=== PATIENT | female | born 1965 | race Caucasian/White ===

== ENCOUNTER 2020-11-18 10:37 | Emergency (ER) | payer BC, OTHER ==
[2020-11-18 12:05] LABS: Absolute Lymphocytes (CBC) 1.5 K/uL (0.7-4.9); Basophils % 0.7 % (0-1.3); Hematocrit 42.8 % (36.0-45.0); Lymphocytes % 21.1 % (15.3-44.8); RBC Red Blood Cell Count 4.66 M/uL (3.86-4.86)
[2020-11-18 12:17] LABS: Protime INR 0.86
[2020-11-18 12:19] LABS: ALT/SGPT 52 U/L (12-78); AST/SGOT 24 U/L (15-37); Albumin 4.7 g/dL (3.4-5.0); Alkaline Phosphatase 81 U/L (45-117); BUN Blood Urea Nitrogen 5 mg/dL (7-18); Bicarbonate 25 mmol/L (21-32); Bilirubin Direct 0.1 mg/dL (0-0.2); Bilirubin Total 0.5 mg/dL (0.2-1.0); Glucose Level 105 mg/dL (74-106); Protein, Total 8.5 g/dL (6.4-8.2); Sodium Level 135 mmol/L (136-145)
[2020-11-18 12:23] LABS: Urine Blood NEGATIVE (NEG); Urine Glucose NEGATIVE (NEG); Urine Protein NEGATIVE (NEG)
[2020-11-18 12:27] LABS: Barbiturates NEGATIVE (NEGATIVE); Benzodiazepines NEGATIVE (NEGATIVE); Cocaine NEGATIVE (NEGATIVE); METHAMPHETAM NEGATIVE (NEGATIVE); Methadone NEGATIVE (NEGATIVE); Opiates NEGATIVE (NEGATIVE); Phencyclidine NEGATIVE (NEGATIVE); THC Cannibis NEGATIVE (NEGATIVE)
[2020-11-18] MEDS ORDERED: LORAZEPAM 1 MG TABLET ONE (13:40)
--- NOTE | 2020-11-18 14:24 | EDPHYS ---
Physician Documentation [facility] Name: Lizbet Solares Age: 55 yrs Sex: Female : 1965 Arrival Date: 11/18/2020 Time: 10:40 Bed 16 Private MD: ED Physician Dudley Cruz HPI: 11/18 11:39 This 55 yrs old Female presents to ER via Ambulatory with complaints of pm1 Suicidal Ideation. 11:39 The patient presents to the emergency department with depression, over work, recently pm1 laid off and can't pay her bills, suicide ideation, but the patient has no formulated plan. Onset: The symptoms/episode began/occurred . Past psychiatric history: Prior diagnosis: depression, Anxiety, Psychiatric medications include: Lexapro, Wellbutrin, the patient has not had a prior suicide gesture, the patient has a previous inpatient psychiatric history, for anxiety and depression, at [facility] . Associated signs and symptoms: Pertinent positives; anxiety, depression, Pertinent negatives: homicidal ideation, substance abuse. Severity of symptoms: in the emergency department the symptoms are worse Pain is currently a 0 / 10. The patient has been recently seen by a physician: by her therapist for the same complaint. Contacted her therapist today and police were contacted and brought the patient here. Patient presents to the ER with complaints of depression and suicidal ideation. Symptoms started about 1 year ago with loss of job. She has been unemployed for 1 year until she found a new job. Worked there for 3 weeks until she got laid off. "I can't stop the sadness and I would be better off it it ended." Told her therapist "I don't think I can make it another day." 3 weeks ago her therapist decreased her Wellbutrin from 300 mg to 150 mg. Historical: - Allergies: 11:01 No Known Allergies; sv - PMHx: 11:01 Hypertension; Depression; Anxiety; sv - PSHx: 11:01 Hysterectomy; sv - Immunization history:: Adult Immunizations up to date. - Social history:: Smoking status: Patient denies any tobacco usage or history of. ROS: 11:39 Constitutional: Negative for fever, chills, and weight loss, Eyes: Negative for injury, pm1 pain, redness, and discharge, ENT: Negative for injury, pain, and discharge, Neck: Negative for injury, pain, and swelling, Cardiovascular: Negative for chest pain, palpitations, and edema, Respiratory: Negative for shortness of breath, cough, wheezing, and pleuritic chest pain, Abdomen/GI: Negative for abdominal pain, nausea, vomiting, diarrhea, and constipation, Back: Negative for injury and pain, MS/Extremity: Negative for injury and deformity, Skin: Negative for injury, rash, and discoloration. 11:39 Neuro: Negative for headache, weakness, numbness, tingling, and seizure. 11:39 Psych: Positive for anxiety, depression, suicidal ideation, Negative for auditory hallucinations, visual hallucinations, homicidal ideation. Exam: 11:39 Constitutional: This is a well developed, well nourished patient who is awake, alert, pm1 and in no acute distress. Head/Face: Normocephalic, atraumatic. 11:39 Back: No spinal tenderness. No costovertebral tenderness. Full range of motion. Skin: Warm, dry with normal turgor. Normal color with no rashes, no lesions, and no evidence of cellulitis. MS/ Extremity: Pulses equal, no cyanosis. Neurovascular intact. Full, normal range of motion. 11:39 Cardiovascular: Exam negative for acute changes, Rate: normal, Rhythm: regular, Pulses: no pulse deficits are appreciated. 11:39 Respiratory: Exam negative for acute changes, respiratory distress, shortness of breath. 11:39 Abdomen/GI: Inspection: abdomen appears normal, Palpation: abdomen is soft and non-tender, in all quadrants. 11:39 Neuro: Exam negative for acute changes, Orientation: is normal, Mentation: is normal, Motor: is normal, moves all fours. 11:39 Psych: Behavior/mood is depressed, crying. Affect is animated, Oriented to person, place, time, Patient having thoughts of suicide. Denies suicidal plan. Delusions/hallucinations are not present. Vital Signs: 11:03 BP 144 / 99; Pulse 75; Resp 20; Temp 98.7; Pulse Ox 100% ; Weight 77.11 kg; Height 5 sv ft. 5 in. (165.10 cm); Pain 0/10; 11:03 Body Mass Index 28.29 (77.11 kg, 165.10 cm) sv MDM: 11:25 Patient medically screened. pm1 13:26 ED course: Patient requesting medication for anxiety. She reports taking clonazepam pm1 0.25 mg from her son prior to arrival for the anxiety. 13:38 Data reviewed: vital signs. pm1 14:23 Counseling: I had a detailed discussion with the patient and/or guardian regarding: the pm1 historical points, exam findings, and any diagnostic results supporting the discharge/admit diagnosis, lab results, the need to transfer to another facility, [facility] does not immediately have the required specialist, to return to the emergency department if symptoms worsen or persist or if there are any questions or concerns that arise at home. 14:27 ED course: The patient is agreeable to going to a psychiatric facility for further pm1 evaluation and treatment. 16:32 Physician consultation: MD Schwartz was contacted at 16:32, regarding regarding transfer, pm1 patient's condition, and will see patient. 11/18 11:26 Order name: Acetaminophen; Complete Time: 12:24 pm1 11/18 11:26 Order name: Basic Metabolic Panel; Complete Time: 12:24 pm1 11/18 11:26 Order name: CBC with Diff; Complete Time: 12:24 pm1 11/18 11:26 Order name: ETOH Level; Complete Time: 12:24 pm1 11/18 11:26 Order name: Hepatic Function; Complete Time: 12:24 pm1 11/18 11:26 Order name: PT-INR; Complete Time: 12:24 pm1 11/18 11:26 Order name: Ptt, Activated; Complete Time: 12:24 pm1 11/18 11:26 Order name: Salicylate; Complete Time: 12:59 pm1 11/18 11:26 Order name: Urine Drug Screen; Complete Time: 12:59 pm1 11/18 12:06 Order name: Urine Dipstick--Ancillary (enter results) bd 11/18 12:07 Order name: Urine Dipstick-Ancillary; Complete Time: 12:59 EDMS 11/18 16:00 Order name: SARS-COV-2 RT PCR; Complete Time: 16:17 EDMS 11/18 11:26 Order name: EKG; Complete Time: 11:27 pm1 11/18 11:26 Order name: EKG - Nurse/Tech; Complete Time: 11:48 pm1 11/18 11:26 Order name: IV Saline Lock; Complete Time: 11:48 pm1 11/18 11:26 Order name: Labs collected and sent; Complete Time: 11:48 pm1 11/18 11:26 Order name: Urine Dipstick-Ancillary (obtain specimen); Complete Time: 11:48 pm1 11/18 12:25 Order name: Diet Regular; Complete Time: 12:26 pm1 Administered Medications: 13:28 Drug: Ativan 1 mg Route: PO; ll1 18:14 Follow up: Response: No adverse reaction; Anxiety decreased; RASS: Alert and Calm (0) ll1 Disposition: 11/18/20 14:24 Transfer ordered to Psych Facility. Diagnosis is Suicidal ideations. - Reason for transfer: Specialty. - Accepting physician is . - Condition is Stable. - Problem is new. - Symptoms are unchanged. Addendum: 11/26/2020 18:55 Co-signature as Attending Physician, Dudley Cruz MD. r n Signatures: Dispatcher [employer] Natalia Foster RN RN sv Nieto, Roman, MD MD rn Marinas, Patrick, SHOP MANAGER SHOP MANAGER pm1 Chauncey Epps RN RN jbCoco Durand RN RN ll1 Corrections: (The following items were deleted from the chart) 11/18 14:29 11:39 Past psychiatric history: Prior diagnosis: depression, Anxiety, Psychiatric pm1 medications include: Lexapro, Wellbutrin, the patient has not had a prior suicide gesture, the patient does not have a previous inpatient psychiatric history, pm1 14:51 11:39 Patient presents to the ER with complaints of depression and suicidal ideation. pm1 Symptoms started about 1 year ago with loss of job. She has been unemployed for 1 year until she found a new job. Worked there for 3 weeks until she got laid off. "I can't stop the sadness and I would be better off it it ended." 3 weeks ago her therapist decreased her Wellbutrin from 300 mg to 150 mg. pm1 15:16 14:23 CORONAVIRUS+MR.LAB.BRZ ordered. EDAL EDMS 20:07 14:24 11/18/2020 14:24 Transfer ordered to Psych Facility. Diagnosis is Suicidal jb4 ideations. Reason for transfer: Specialty. Accepting physician is . Condition is Stable. Problem is new. Symptoms are unchanged. pm1
--- NOTE | 2020-11-18 14:24 | ER ---
Nurse's Notes [facility] Name: Lizbet Solares Age: 55 yrs Sex: Female : 1965 Arrival Date: 11/18/2020 Time: 10:40 Bed 16 Private MD: Diagnosis: Suicidal ideations Presentation: 11/18 10:59 Chief complaint: Patient states: "I called my therapists today for help and they did a sv wellfare check on me and the police came. I don't see a way out." Pt denies a plan. Pt reports seeing this therapists routinely. Pt reports about 3 weeks ago they decreased her depression medication to help with her anxiety. Coronavirus screen: Client denies travel out of the [place] in the last 14 days. At this time, the client does not indicate any symptoms associated with coronavirus-19. Ebola Screen: No symptoms or risks identified at this time. Risk Assessment: Do you want to hurt yourself or someone else? Patient reports desire/thoughts of hurting themselves or someone else. Provider notified. Onset of symptoms was November 18, 2020. 10:59 Method Of Arrival: Ambulatory sv 10:59 Acuity: NAFISA 2 sv 11:03 Initial Sepsis Screen: Does the patient meet any 2 criteria? No. Patient's initial sv sepsis screen is negative. Does the patient have a suspected source of infection? No. Patient's initial sepsis screen is negative. Historical: - Allergies: 11:01 No Known Allergies; sv - PMHx: 11:01 Hypertension; Depression; Anxiety; sv - PSHx: 11:01 Hysterectomy; sv - Immunization history:: Adult Immunizations up to date. - Social history:: Smoking status: Patient denies any tobacco usage or history of. Screenin:09 Nutritional screening: No deficits noted. Tuberculosis screening: No symptoms or risk ll1 factors identified. 15:59 Fall Risk None identified. IV access (20 points). Total Calles Fall Scale indicates No ll1 Risk (0-24 pts). 18:14 Abuse screen: Denies threats or abuse. ll1 Assessment: 11:30 General: Appears uncomfortable, Behavior is cooperative, appropriate for age, anxious. ll1 Pain: Denies pain. Neuro: Level of Consciousness is awake, alert, obeys commands, Oriented to person, place, time, situation, Appropriate for age Branch Sales Manager are equal bilaterally Moves all extremities. Full function Gait is steady, Speech is normal, Facial symmetry appears normal, Pupils are PERRLA, Reports Generalized suicidal thoughts, no specific plan. . 12:30 Reassessment: No changes from previously documented assessment. Patient and/or family ll1 updated on plan of care and expected duration. Pain level reassessed. 13:30 Reassessment: No changes from previously documented assessment. Patient and/or family ll1 updated on plan of care and expected duration. Pain level reassessed. 14:30 Reassessment: No changes from previously documented assessment. Patient and/or family ll1 updated on plan of care and expected duration. Pain level reassessed. 15:30 Reassessment: No changes from previously documented assessment. Patient and/or family ll1 updated on plan of care and expected duration. Pain level reassessed. 15:57 Reassessment: Spoke with Shauna, with [facility] who states that she will give ss administrative approval now, pending doc to doc report. Shauna states that Dr. East will call soon and she will then call back with a room assignment. 16:30 Reassessment: No changes from previously documented assessment. Patient and/or family ll1 updated on plan of care and expected duration. Pain level reassessed. 17:30 Reassessment: No changes from previously documented assessment. Patient and/or family ll1 updated on plan of care and expected duration. Pain level reassessed. 19:00 Reassessment: Patient appears in no apparent distress at this time. Patient and/or jb4 family updated on plan of care and expected duration. Pain level reassessed. Patient is alert, oriented x 3, equal unlabored respirations, skin warm/dry/pink. 20:00 Reassessment: Patient appears in no apparent distress at this time. Patient and/or jb4 family updated on plan of care and expected duration. Pain level reassessed. Patient is alert, oriented x 3, equal unlabored respirations, skin warm/dry/pink. Psych: 11:01 [place] Suicide Severity Screening: In the past month, have you wished you were sv or wished you could go to sleep and not wake up? Patient responds "No." "In the past month, have you actually had any thoughts of killing yourself?" Patient responds "no." "In your lifetime, have you ever done anything, started to do anything, or prepared to do anything to end your life?" Patient responds "no.". Subjective: Patient's mood is sad, hopeless, Delusions are denied, Hallucinations are denied Having thoughts of suicide. Denies suicidal plan. Objective: Patient is cooperative, Speech is normal, Affect is appropriate. Suicide Risk Assessment: Sad Person Scale: Sex of patient: Female: Score 0 points. Age of patient: Score 0 point if patient falls outside of specified age parameters. Depression: Score 1 point if signs of depression are present. Previous Attempt: Score 1 point if patient has previously attempted suicide. Substance Abuse: Score 0 point if patient does not abuse alcohol or drugs. Rational Thinking: Score 0 point if patient has rational thinking. Social Support: Score 0 if social support is present/available. Organized Plan: Score 0 if patient did not have an organized plan in place. Relationship: Score 1 point if patient is , , , or for a single male Chronic Sickness: Score 1 point if patient has illness, chronic, debilitating, or severe. TOTAL POINTS: If total points are 3-4, proposed clinical action is close follow-up/consider hospitalization. Pt denies substance abuse. Commitment: Patient will be a voluntary commitment. 11:15 Interventions: Removed personal items and placed in bag. Patient placed in hospital ll1 gown. Urine collected and sent for urine drug test. Safety Checks: Personal items have been removed. Door is open. Vital Signs: 11:03 BP 144 / 99; Pulse 75; Resp 20; Temp 98.7; Pulse Ox 100% ; Weight 77.11 kg; Height 5 sv ft. 5 in. (165.10 cm); Pain 0/10; 11:03 Body Mass Index 28.29 (77.11 kg, 165.10 cm) sv ED Course: 10:40 Patient arrived in ED. ds1 11:00 Triage completed. sv 11:03 Arm band placed on. sv 11:06 Miki Lynch NP is PHCP. pm1 11:06 Dudley Cruz MD is Attending Physician. pm1 11:08 Coco Monk, EVER is Primary Nurse. ll1 11:15 Patient has correct armband on for positive identification. Placed in gown. Bed in low ll1 position. Side rails up X 1. Cardiac monitoring not applicable on this patient. 11:45 Initial lab(s) drawn, by me, sent to lab. Inserted saline lock: 20 gauge in left 3 antecubital area, using aseptic technique. Blood collected. 11:55 EKG done, by ED staff, reviewed by Miki Lynch NP. [facility] 12:00 Urine collected: clean catch specimen, clear. [facility] 13:28 Urine Dipstick--Ancillary (enter results) Sent. 1 14:[facility] bd 15:00 comfirmed with [facility] that chart was received. bd 20:00 No provider procedures requiring assistance completed. IV discontinued, intact, jb4 bleeding controlled, No redness/swelling at site. Pressure dressing applied. Administered Medications: 13:28 Drug: Ativan 1 mg Route: PO; ll1 18:14 Follow up: Response: No adverse reaction; Anxiety decreased; RASS: Alert and Calm (0) 1 Outcome: 14:24 ER care complete, transfer ordered by MD. pm1 20:00 Transferred by [facility]. to other acute care facility: [facility]. jb4 20:00 Condition: stable 20:00 Discharge instructions given to patient, Instructed on the need for transfer, Demonstrated understanding of instructions. 20:07 Patient left the ED. jb4 Signatures: Brunilda Moffett Stephanie, RN Alee Barrios 1 Montse Suresh RN RN ss Marinas, Patrick, NP WAITER/WAITRESS SECOND CLASS [facility] Chauncey Epps RN RN jb Mirna Trinh [facility] Coco Monk RN RN 1 Corrections: (The following items were deleted from the chart) 11:05 10:59 Chief complaint: Patient states: "I called my therapists today for help and they sv did a wellfare check on me and the police came. I don't see a way out." Pt denies a plan. Pt reports seeing this therapists routinely. 20:06 20:00 Transferred jb4 jb4
[2020-11-18 20:29] VITALS: BP 144/99; TEMP 98.7; O2SAT 100
--- NOTE | 2020-11-19 18:44 | EKG ---
Test Date: 2020-11-18 Test Time: 11:54:30 Hi Lift Operator: NISHA MEASUREMENT RESULTS: Intervals: Rate: 74 CO: 152 QRSD: 78 QT: 420 QTc: 466 [place]: P: 28 CO: 152 QRS: -5 T: 49 INTERPRETIVE STATEMENTS: Normal sinus rhythm Minimal voltage criteria for LVH, may be normal variant Septal infarct, age undetermined Abnormal ECG Compared to ECG 06/09/2017 15:42:15 Left ventricular hypertrophy now present Myocardial infarct finding now present Prolonged QT interval no longer present Electronically Signed On 11-19-20 18:40:36 MANAGER FINANCIAL REPORTING by Brenden Hernandez
--- OUTSIDE RECORDS SUMMARY | 2020-11-19 21:40 | XMS REPORT | Clinical Summary ---
:1965 Author Organization [facility] Address [address] [place] [address] Care Team Providers Name Role Phone Ritesh Raphael MD Primary Care Provider Allergies No Known Active Allergies Medications Medication Sig Dispensed Refills Start Date End Date Status clonAZEPAM (KlonoPIN) 1 Take 1 mg by 0 Active MG tablet mouth 3 (three) times a day. levothyroxine (SYNTHROID, Take 75 mcg by 0 Active LEVOXYL) 75 mcg tablet mouth every morning. liothyronine (CYTOMEL) 5 Take 5 mcg by 0 Active MCG tablet mouth 2 (two) times a day. methylphenidate HCl Take 54 mg by 0 Active (CONCERTA) 54 MG CR mouth every tablet morning. metoprolol succinate XL Take 100 mg by 0 Active (TOPROL-XL) 100 mg 24 hr mouth daily. tablet omeprazole (PriLOSEC) 40 Take 40 mg by 0 Active MG capsule mouth daily before breakfast. sertraline (ZOLOFT) 50 MG Take 50 mg by 0 Active tablet mouth daily. traZODone (DESYREL) 100 Take 200 mg by 0 Active MG tablet mouth nightly. vortioxetine (TRINTELLIX) Take 10 mg by 0 Active 10 mg tablet mouth daily. Active Problems Problem Noted Date Alcohol abuse 11/16/2017 Surgical History Surgery Date Site/Laterality Comments THYROID SURGERY Medical History Medical History Date Comments ETOH abuse Anxiety Hypertension Depression Social History Tobacco Use Types Packs/Day Years Used Date Current Some Day Smoker Smokeless Tobacco: Never Used Alcohol Use Drinks/Week oz/Week Comments Yes Sex Assigned at Date Recorded Not on file Last Filed Vital Signs Not on file Plan of Treatment Health Maintenance Due Date Last Done Comments COVID-19 VACCINE (1 of 2) 1979 HEPATITIS C SCREENING 1981 CERVICAL CANCER SCREENING 1984 BREAST CANCER SCREENING 2013 COLONOSCOPY SCREENING 2013 SHINGLES VACCINES (#1) 2013 INFLUENZA VACCINE 05/11/2020 Results Not on fileafter 11/19/2019 (Work) [id number] Advance Directives For more information, please contact: [phone] Type Date Recorded Patient Supervisor Frame Assembly Explanati on Advance Directives, Living Will 07/04/2020 6:30 AM and Medical Power of Customs Consultant
--- OUTSIDE RECORDS SUMMARY | 2020-11-19 21:41 | XMS REPORT | Clinical Summary ---
:1965 Author Organization [facility] Address [address] [place] [address] Care Team Providers Name Role Phone Unavailable Primary Care Provider Unavailable Allergies No Known Allergies Medications Medication Sig Dispensed Refills Start Date End Date Status omeprazole (PRILOSEC) 40 Take 40 mg by 0 Active MG capsule mouth every morning. metoprolol (TOPROL-XL) Take 100 mg by 0 Active 100 MG 24 hr tablet mouth daily. vortioxetine 10 mg Tab Take 10 mg by 0 Active mouth daily. OLANZapine (ZYPREXA) 15 Take 15 mg by 0 Active MG tablet mouth nightly. methylphenidate HCl Take 54 mg by 0 Active (CONCERTA) 54 MG CR mouth every tablet morning. liothyronine (CYTOMEL) 5 Take 5 mcg by 0 Active MCG tablet mouth 2 (two) times daily. 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 Acute metabolic encephalopathy 04/03/2018 Encounters Date Type Specialty Care Team Description 02/08/2020 Hospital Encounter Radiology Melanie Ro Nonto xic uninodular GENARO Khan goiter 1, Slswv Jubilater Interactive Media Tech 02/08/2020 Outside Orders Central Scheduling Melanie Ro Non toxic uninodular GENARO Khan goiter (Primary Dx) after 11/19/2019 Social History Tobacco Use Types Packs/Day Years Used Date Never Assessed Sex Assigned at Date Recorded Not on file Last Filed Vital Signs Not on file Plan of Treatment Health Maintenance Due Date Last Done Comments BREAST CANCER SCREENING 1965 COLON CANCER SCREENING COLONOSCOPY 1965 CERVICAL CANCER SCREENING PAP ONLY (Age 21-65) 1984 LIPID PANEL 2008 INFLUENZA VACCINE (#1) 2020 Procedures Procedure Name Priority Date/Time Associated Diagnosis Comme nts US THYROID Routine 02/08/2020 2:05 PM Nontoxic uninodular R esults for this CDT goiter procedure are i n the results section . after 11/19/2019 Results US Thyroid (02/08/2020 2:05 PM CDT) Specimen Narrative Performed At FINAL REPORT [facility] Thyroid Ultrasound History: Partial thyroidectomy Comparison: none Findings: The right thyroid lobe appears diminishe d in size, probably representing changes related to partial thyroidectomy given the clinical history. A 4 mm cyst is seen wi thin the residual right thyroid lobe. A 3 mm cyst is seen within the inferior left thyroid lobe. There is no concerning thyroid nod ule on this examination. Right thyroid lobe measures 1.7 x 0.7 x 0.9 cm. Left thyroid lobe measures 2.7 x 0.6 x 0.8 cm. Thyroid ist hmus measures 2.9 mm in thickness. Impression: 1. Diminutive appearance of the right th yroid lobe, which could be related to previous partial thyroidectom y given the clinical history. 2. Subcentimeter cysts within both thyro id lobes. There is no concerning thyroid nodule on this examin ation. Signed: Pascale Prince MD Report Verified Date/Time: 02/08/2020 14:13:43 Reading Location: [facility] Reading Room - [place] [address] Procedure Note Interface, External Ris In - 02/08/2020 2:15 PM CDT FINAL REPORT Thyroid Ultrasound History: Partial thyroidectomy Comparison: none Findings: The right thyroid lobe appears diminishe d in size, probably representing changes related to partial thyroidectomy given the clinical history. A 4 mm cyst is seen wi thin the residual right thyroid lobe. A 3 mm cyst is seen within the inferior left thyroid lobe. There is no concerning thyroid nod ule on this examination. Right thyroid lobe measures 1.7 x 0.7 x 0.9 cm. Left thyroid lobe measures 2.7 x 0.6 x 0.8 cm. Thyroid ist hmus measures 2.9 mm in thickness. Impression: 1. Diminutive appearance of the right th yroid lobe, which could be related to previous partial thyroidectom y given the clinical history. 2. Subcentimeter cysts within both thyro id lobes. There is no concerning thyroid nodule on this examin ation. Signed: Pascale Prince MD Report Verified Date/Time: 02/08/2020 1 4:13:43 Reading Location: [facility] Reading Room - [place] [address] Performing Organization Address City/State/Zipcode Phone Number GE RIS after 11/19/2019 Insurance Payer Benefit Plan / Subscriber ID Effective Dates Phone Addre ss Type Group BLUE BCBS ADV HMO [id number] 2019-Presen [phone] [id number] CROSS/BLUE EXCHANGE t 2 [facility] [id number] Advance Directives For more information, please contact: [phone] Code Status Date Activated Date Inactivated Comments Full Code 04/03/2018 9:16 PM 04/07/2018 3:36 PM This code status was determined by: Patient
--- OUTSIDE RECORDS SUMMARY | 2020-11-19 21:42 | XMS REPORT | Summary of Care ---
:1965 Author Organization [facility] - Health Address [address] [place] [address] Care Team Providers Name Role Phone Kurtis Raphael MD Primary Care Provider Encounter Details Date Type Department Care Team Description 10/01/2020 Orders Only [facility] Doctor Unassigned, No [address] [facility] Name [place] [id number] [address] [place] [id number] Allergies No Known Allergiesdocumented as of this encounter (statuses as of 10/01/2020) Medications Medication Sig Dispensed Refills Start Date End Date Status clonazePAM (KLONOPIN) 1 Take 1 mg by 0 Active mg tablet mouth 3 (three) times daily. acetaminophen-codeine Take 1 tablet by 15 tablet 0 08/21/2018 Active (TYLENOL-CODEINE #3) mouth every 6 300-30 mg tablet (six) hours as needed for Pain (scale 4-6). liothyronine 5 mcg Take 5 mcg by 0 Active tablet mouth daily. dextroamphetamine-amphe Take 20 mg by 0 Active tamine (ADDERALL) 20 mg mouth daily. tablet FLUoxetine 20 mg Take 20 mg by 0 Active capsule mouth daily. metoprolol succinate XL Take 100 mg by 0 Active 100 mg 24 hr tablet mouth daily. OLANZapine 5 mg tablet Take 5 mg by 0 Active mouth daily. omeprazole 40 mg Take 40 mg by 0 Active capsule mouth daily. escitalopram oxalate 20 0 01/05/2020 Active mg tablet buPROPion XL 300 mg 24 0 02/29/2020 Active hr tablet documented as of this encounter (statuses as of 10/01/2020) Active Problems No known active problemsdocumented as of this encounter (statuses as of 10/01/2020) Social History Tobacco Use Types Packs/Day Years Used Date Never Assessed Sex Assigned at Date Recorded Not on file documented as of this encounter Last Filed Vital Signs Not on filedocumented in this encounter Plan of Treatment Health Maintenance Due Date Last Done Comments HEPATITIS C (HCV) SCREEN 1965 Depression Screening 1975 DTaP,Tdap,and Td Vaccines (1 - 1982 Tdap) PAP SMEAR 1984 Breast Cancer Screening (MAMMOGRAM) 2003 COLON CANCER SCREENING ANNUAL 2013 FIT/FOBT COLON CANCER SCREENING FIT DNA 2013 EVERY 3 YEARS COLON CANCER SCREENING 2013 SIGMOIDOSCOPY EVERY 5 YEARS COLONOSCOPY 2013 Colorectal Cancer Screening 2013 Zoster Recombinant Vaccine 2013 (SHINGRIX) (1 of 2) INFLUENZA VACCINE (#1) 2020 PNEUMOCOCCAL 0-64 YEARS COMBINED Aged Out No longer eligible based on SERIES patient's age to complete this topic documented as of this encounter Procedures Procedure Name Priority Date/Time Associated Diagnosis Comme nts CONSENT/REFUSAL FOR Routine 10/01/2020 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 t [phone] [place] [address] documented as of this encounter Advance Directives Name Relationship Healthcare Agent Relationship Co mmunication Shannan Madsen Mother Health Care Agent [phone] ( Home)
--- OUTSIDE RECORDS SUMMARY | 2020-11-19 21:42 | XMS REPORT | Summary of Care ---
:1965 Author Organization [facility] - [facility] Address [address] [place] [address] Care Team Providers Name Role Phone Kurtis Raphael MD Primary Care Provider Reason for Referral (Routine) Status Reason Specialty Diagnoses / Referred By Referred To Procedures Contact Contact New Request Procedures Zachary Mcnamara, UNILATERAL VENOUS PAC DUPLEX LOWER [address] [place], [place] [address] [facility] Reason for Visit Reason Comments Leg Pain left Auth/Cert Status Reason Specialty Diagnoses / Referred By Referred To Procedures Contact Contact Emergency Medicine Diagnoses LEG PAIN [facility] [address] [place] [address] Fax: Encounter Details Date Type Department Care Team Description 10/01/2020 Emergency ADC-Emergency Depart ment Zachary Mcnamara, PAC Left leg pain [address] [place] [address] [place] [address] [place] [phone] Allergies No Known Allergiesdocumented as of this [...] mg 24 0 02/29/2020 Active hr tablet naproxen (NAPROSYN) 500 Take 1 tablet by 30 tablet 0 0 Active mg tabletIndications: mouth 2 (two) Left leg pain times daily with meals. documented as of this encounter (statuses as of 10/01/2020) Active Problems No known active problemsdocumented as of this encounter (statuses as of 10/01/2020) Social History Tobacco Use Types Packs/Day Years Used Date Never Assessed Sex Assigned at Date Recorded Not on file COVID-19 Exposure Response Date Recorded In the last month, have you been in contact with No / Unsure 10/01/2020 3:33 PM [facility] C[facility]TER someone who was confirmed or suspected to have Coronavirus / COVID-19? 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 I went to urgent care last night at 0330 and they gave me a shot of morphine. They gave me a muscle relaxer and it took the edge off. I've been in pain since yesterday and I'm scared. They said its a muscle spasm. Myinsurance nurse said to go to the ER" Denies trauma/ lifting anything heavy. documented in this encounter Miscellaneous Notes ED Nurse Note - Elena See RN - 10/01/2020 5:18 PM CSTPt discharged with diagnosis of left leg pain. Printed and verbal instructions reviewed with and given to patient. Prescriptions given x1. Pt verbalized understanding of teaching, medications, and recommended follow-up. Denies questions or concerns at this time. Pt ambulatory at discharge, appears in mild distress. Patient's sister to transport patient home. 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 documented in this encounter Plan of Treatment Health Maintenance Due Date Last Done Comments HEPATITIS C (HCV) SCREEN 1965 Depression Screening 1975 DTaP,Tdap,and Td Vaccines ( - 1982 Tdap) PAP SMEAR 1984 Breast [...] Name Priority Date/Time Associated Diagnosis Comme nts NOTICE OF PRIVACY Routine 10/01/2020 3:26 PM [facility] [employer] documented in this encounter Results Not on filedocumented in this encounter Visit Diagnoses Diagnosis Left leg pain Pain in limb documented in this encounter Administered Medications Medication Order MAR Action Action Date Dose Rate Site HYDROcodone-acetaminophen Given 10/01/2020 4:55 PM 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
--- OUTSIDE RECORDS SUMMARY | 2020-11-19 21:42 | XMS REPORT | Continuity of Care Document ---
:[address] [facility] t Address [address] [place] [address] Care Team Providers Name Role Phone Ijeoma DONATO Primary Care Physician Pamela Munoz Attending Clinician Doctor Unassigned, Name Attending Clinician Unavailable Only, Test Attending Clinician Unavailable Erin Dunaway Attending Clinician 1, [facility] Attending Clinician Unavailable Paz ALMAGUER Attending Clinician Unavailable VALERIE GARRETT Admitting Clinician Unavailable Payers Payer Name Policy Type Policy Effective Date Expiration Date Sour ce Number BLUE CROSS/BLUE [id number] [address] [facility] SHIELDBCBS ADV 00:00:00 - [facility] [id number] [id number] [id number], [place] [address] Problems Condition Condition Condition Status Onset Resolution Last Treating Co mments Source Name Details Category Date Date Treatment Clinician Date 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 Social History Social Habit Start Date Stop Date Quantity Comments Source Sex Assigned At [facility] ethodist Tobacco use and 2017-11-16 2017-11-16 Never used [facility] ethodist exposure 00:00:00 00:00:00 Alcohol intake 2017-11-16 2017-11-16 Current drinker [place] 00:00:00 00:00:00 of alcohol (finding) Smoking Status Start Date Stop Date Source Current some day smoker 2017-11-16 00:00:00 [place] Medications Ordered Filled Start Stop Current Ordering Indication Dosage Frequency Signature Comments Components Source Medication Medication Date Date Medication? Clinician (SIG) Name Name omeprazole Yes 40mg QD Take [address] (PRILOSEC) 6-28 by mouth [facility] - 40 MG 13:36: every Medical capsule 16 morning. [place] metoprolol Yes 100mg QD Take [address] (TOPROL-XL) 6-28 mg by [facility] - 100 MG 24 13:36: mouth Medical hr tablet 16 daily. [place] vortioxetin Yes 10mg QD Take [address] e 10 mg Tab 6-28 by mouth Luke [facility] - 13:36: daily. Medical [address] [place] [address] OLANZapine Yes 15mg QD Take [address] (ZYPREXA) 6-28 by mouth [facility] - 15 MG 13:36: nightly. Medical tablet 16 [place] methylpheni Yes 54mg QD Take [address] [address] date HCl 6-28 by mouth [facility] - (CONCERTA) 13:36: every Medica l 54 MG CR 16 morning. [place] tablet liothyronin Yes 5ug Q.5D Take [address] e (CYTOMEL) 6-28 by mouth 2 [facility] kes - 5 MCG 13:36: (two) Medical tablet 16 times Center daily. levothyroxi Yes 75ug QD Take 75 Jessica ston ne 2-07 mcg by [facility] (SYNTHROID, 08:25: mouth st LEVOXYL) 75 59 every mcg tablet morning. liothyronin 2018-0 Yes 5ug Q.5D Take 5 mcg [facility] (CYTOMEL) 2-07 by mouth 2 Me thodi 5 MCG 08:25: (two) st tablet 53 times a day. methylpheni 2018-0 Yes 54mg QD Take 54 mg [facility] date HCl 2-07 by mouth [facility] (CONCERTA) 08:25: every st 54 MG CR 53 morning. tablet metoprolol 2018-0 Yes 100mg QD Take 100 [place] succinate 2-07 mg by [facility] XL 08:25: mouth st (TOPROL-XL) 53 daily. 100 mg 24 hr tablet omeprazole 2018-0 Yes 40mg QD Take 40 mg [place] (PriLOSEC) 2-07 by mouth Metho di 40 MG 08:25: daily st capsule 53 before breakfast. sertraline 2018-0 Yes 50mg QD Take 50 mg [place] (ZOLOFT) 50 2-07 by mouth Meth kathleen MG tablet 08:25: daily. st 53 traZODone 2018-0 Yes 200mg QD Take [address] (DESYREL) 2-07 mg by [facility] 100 MG 08:25: mouth st tablet 53 nightly. vortioxetin 2018-0 Yes 10mg QD Take 10 mg [facility] e 2-07 by mouth [facility] (TRINTELLIX 08:25: daily. st ) 10 mg 53 tablet clonAZEPAM 2018-0 Yes 1mg [id number] Take 1 mg [facility] (KlonoPIN) 2-07 [id number] by mouth 3 [facility] 1 MG tablet 08:25: 3D (three) st 53 times a day. Procedures Procedure Date / Time Performed Performing Clinician Sour e US THYROID 2020-02-08 14:05:00 Melaine Ro [facility] Plan of Care Planned Activity Planned Date Details Comments Source Future Scheduled 2020-06-11 [facility] VACCINE [facility] 00:00:00 (#1) [code = [facility] INFLUENZA VACCINE (#1)] Future Scheduled 2020-05-11 INFLUENZA VACCINE [place] Test 00:00:00 [code = INFLUENZA VACCINE] Future Scheduled 2013 BREAST CANCER [facility] Test 00:00:00 SCREENING [code = BREAST CANCER SCREENING] Future Scheduled 2013 COLONOSCOPY SCREENING [place] Test 00:00:00 [code = COLONOSCOPY SCREENING] Future Scheduled 2013 SHINGLES VACCINES [place] Test 00:00:00 (#1) [code = SHINGLES VACCINES (#1)] Future Scheduled [address] [facility] - Test 00:00:00 (procedure) [code = [facility] 76511663] Future Scheduled 1984 Screening for [facility] Test 00:00:00 malignant neoplasm of cervix (procedure) [code = 207583147] Future Scheduled [address] [facility] - Test 00:00:00 malignant neoplasm of Medica l Center cervix (procedure) [code = 195085467] Future Scheduled 1981 Hepatitis C screening [place] Test 00:00:00 (procedure) [code = 497374793] Future Scheduled 1979 COVID-19 VACCINE (1 [place] Test 00:00:00 of 2) [code = COVID-19 VACCINE (1 of 2)] Future Scheduled [address] [facility] - Test 00:00:00 malignant neoplasm of Medica l Center breast (procedure) [code = 773366730] Future Scheduled [address] [facility] - Test 00:00:00 malignant neoplasm of Medica l Center colon (procedure) [code = 038381618] Encounters Start End Encounter Admission Attending Care Care Encounter Source Date/Time Date/Time Type Type Clinicians Facility Department ID 2020-10-01 2020-10-01 Emergency Zachary Mcnamara [place] [id number] 15:38:00 17:19:00 Pamela Dale [id number] [place] [id number] [place] [id number] 2020-10-01 2020-10-01 Orders Doctor PINKY [id number] 00:00:00 00:00:00 Only Unassigned, [place] 350.1.13.10 [place] [facility] 4.2.7.2.686 [id number] 2020-04-23 2020-07-03 Laboratory Only, Web [facility] [id number] 09:22:46 08:51:45 Only Test Health 350.1.13.10 Specialty 4.2.7.2.686 [place] [id number] [place] 370 Results Test Description Test Time Test Comments Results Result [facility] e Comments US, THYROID 2020-01-12 Reason for FINAL REPORT 0 Exam:->HX OF PATIENT ID: 14:13:00 PARTIAL [id number] Thyroid HYPROIDECTOY Ultrasound History: Partial thyroidectomy Comparison: none Findings:The right thyroid lobe appears diminished in size, probably representing changes related to partial thyroidectomy given the clinical history. A 4 mm cyst is seen within the residual right thyroid lobe. A 3 mm cyst is seen within the inferior left thyroid lobe. There is no concerning thyroid nodule on this examination. Right thyroid lobe measures 1.7 x 0.7 x 0.9 cm. Left thyroid lobe measures 2.7 x 0.6 x 0.8 cm. Thyroid isthmus measures 2.9 mm in thickness. Impression:1. Diminutive appearance of the right thyroid lobe, which could be related to previous partial thyroidectomy given the clinical history.2. Subcentimeter cysts within both thyroid lobes. There is no concerning thyroid nodule on this examination. Signed: Eduardo Prince [place] Verified Date/Time: 02/08/2020 14:13:43 Reading Location: [facility] Diagnostic Imaging Reading Room - [place] [address] Thyroid 2020-01-12 Interface, External [facility] 0 Ris In - 02/08/2020 [facility] - 14:13:00 2:15 PM CDTFINAL Medical REPORT PATIENT ID: [place] [id number] Thyroid Ultrasound History: Partial thyroidectomy Comparison: none Findings:The right thyroid lobe appears diminished in size, probably representing changes related to partial thyroidectomy given the clinical history. A 4 mm cyst is seen within the residual right thyroid lobe. A 3 mm cyst is seen within the inferior left thyroid lobe. There is no concerning thyroid nodule on this examination. Right thyroid lobe measures 1.7 x 0.7 x 0.9 cm. Left thyroid lobe measures 2.7 x 0.6 x 0.8 cm. Thyroid isthmus measures 2.9 mm in thickness. Impression:1. Diminutive appearance of the right thyroid lobe, which could be related to previous partial thyroidectomy given the clinical history.2. Subcentimeter cysts within both thyroid lobes. There is no concerning thyroid nodule on this examination. Signed: Eduardo Prince [place] Verified Date/Time: 02/08/2020 14:13:43 Reading Location: [facility] Diagnostic Imaging Reading Room - [place] [address] D CULTURE 2018-04-09 00:00:00 Test Item Value Reference Range Interpretation Comme nts CULTURE (BEAKER) (test code = 1095) No growth in 5 days BLOOD [id number] 00:00:00 Test Item Value Reference Range Interpretation Comments CULTURE (BEAKER) (test No growth in 5 days code = 1095) BASIC METABOLIC [id number] 11:06:00 Test Item Value Reference Range Interpretation Comments SODIUM (BEAKER) 136 meq/L 136-145 (test code = 381) POTASSIUM (BEAKER) 3.8 meq/L 3.5-5.1 (test code = 379) CHLORIDE (BEAKER) 103 meq/L 98-107 (test code = 382) CO2 (BEAKER) (test 24 meq/L 22-29 code = 355) BLOOD UREA NITROGEN 6 mg/dL 7-21 L (BEAKER) (test code = 354) CREATININE (BEAKER) 0.74 mg/dL 0.57-1.25 (test code = 358) GLUCOSE RANDOM 112 mg/dL 70-105 H (BEAKER) (test code = 652) CALCIUM (BEAKER) 9.6 mg/dL 8.4-10.2 (test code = 697) EGFR (BEAKER) (test mL/min/1.73 INSUFFIC IENT CLINICAL code = 1092) sq m DATA TO CALCULA TE ESTIMATED GFR. BASIC METABOLIC [id number] 07:36:00 Test Item Value Reference Range Interpretation Comments SODIUM (BEAKER) 133 meq/L 136-145 L (test code = 381) POTASSIUM (BEAKER) 4.0 meq/L 3.5-5.1 (test code = 379) CHLORIDE (BEAKER) 103 meq/L 98-107 (test code = 382) CO2 (BEAKER) (test 21 meq/L 22-29 L code = 355) BLOOD UREA NITROGEN 6 mg/dL 7-21 L (BEAKER) (test code = 354) CREATININE (BEAKER) 0.71 mg/dL 0.57-1.25 (test code = 358) GLUCOSE RANDOM 93 mg/dL 70-105 (BEAKER) (test code = 652) CALCIUM (BEAKER) 9.5 mg/dL 8.4-10.2 (test code = 697) EGFR (BEAKER) (test mL/min/1.73 INSUFFIC IENT CLINICAL code = 1092) sq m DATA TO CALCULA TE ESTIMATED GFR. BASIC METABOLIC [id number] 19:50:00 Test Item Value Reference Range Interpretation Comments SODIUM (BEAKER) 133 meq/L 136-145 L (test code = 381) POTASSIUM (BEAKER) 3.8 meq/L 3.5-5.1 (test code = 379) CHLORIDE (BEAKER) 101 meq/L 98-107 (test code = 382) CO2 (BEAKER) (test 19 meq/L 22-29 L code = 355) BLOOD UREA NITROGEN 7 mg/dL 7-21 (BEAKER) (test code = 354) CREATININE (BEAKER) 0.82 mg/dL 0.57-1.25 (test code = 358) GLUCOSE RANDOM 142 mg/dL 70-105 H (BEAKER) (test code = 652) CALCIUM (BEAKER) 9.7 mg/dL 8.4-10.2 (test code = 697) EGFR (BEAKER) (test mL/min/1.73 INSUFFIC IENT CLINICAL code = 1092) sq m DATA TO CALCULA TE ESTIMATED GFR. BASIC METABOLIC [id number] 08:59:00 Test Item Value Reference Range Interpretation Comments SODIUM (BEAKER) 134 meq/L 136-145 L (test code = 381) POTASSIUM (BEAKER) 4.1 meq/L 3.5-5.1 (test code = 379) CHLORIDE (BEAKER) 101 meq/L 98-107 (test code = 382) CO2 (BEAKER) (test 22 meq/L 22-29 code = 355) BLOOD UREA NITROGEN 6 mg/dL 7-21 L (BEAKER) (test code = 354) CREATININE (BEAKER) 0.83 mg/dL 0.57-1.25 (test code = 358) GLUCOSE RANDOM 100 mg/dL 70-105 (BEAKER) (test code = 652) CALCIUM (BEAKER) 9.7 mg/dL 8.4-10.2 (test code = 697) EGFR (BEAKER) (test mL/min/1.73 INSUFFIC IENT CLINICAL code = 1092) sq m DATA TO CALCULA TE ESTIMATED GFR. BASIC METABOLIC [id number] 01:18:00 Test Item Value Reference Range Interpretation Comments SODIUM (BEAKER) 131 meq/L 136-145 L (test code = 381) POTASSIUM (BEAKER) 4.1 meq/L 3.5-5.1 (test code = 379) CHLORIDE (BEAKER) 100 meq/L 98-107 (test code = 382) CO2 (BEAKER) (test 20 meq/L 22-29 L code = 355) BLOOD UREA NITROGEN 8 mg/dL 7-21 (BEAKER) (test code = 354) CREATININE (BEAKER) 0.72 mg/dL 0.57-1.25 (test code = 358) GLUCOSE RANDOM 95 mg/dL 70-105 (BEAKER) (test code = 652) CALCIUM (BEAKER) 9.5 mg/dL 8.4-10.2 (test code = 697) EGFR (BEAKER) (test mL/min/1.73 INSUFFIC IENT CLINICAL code = 1092) sq m DATA TO CALCULA TE ESTIMATED GFR. BASIC METABOLIC [id number] 16:32:00 Test Item Value Reference Range Interpretation Comments SODIUM (BEAKER) 131 meq/L 136-145 L (test code = 381) POTASSIUM (BEAKER) 4.3 meq/L 3.5-5.1 (test code = 379) CHLORIDE (BEAKER) 100 meq/L 98-107 (test code = 382) CO2 (BEAKER) (test 21 meq/L 22-29 L code = 355) BLOOD UREA NITROGEN 7 mg/dL 7-21 (BEAKER) (test code = 354) CREATININE (BEAKER) 0.80 mg/dL 0.57-1.25 (test code = 358) GLUCOSE RANDOM 108 mg/dL 70-105 H (BEAKER) (test code = 652) CALCIUM (BEAKER) 9.6 mg/dL 8.4-10.2 (test code = 697) EGFR (BEAKER) (test mL/min/1.73 INSUFFIC IENT CLINICAL code = 1092) sq m DATA TO CALCULA TE ESTIMATED GFR. U/S, ABDOMINAL, [id number] 14:54:00Abdomen limited area? Add comment if clarification is needed.->LiverReason for exam:->Evaluatefor cirrhosis FINAL REPORT Ultrasound of the Right Upper Quadrant of the Abdomen Clinical History: Evaluate for cirrhosis Discussion: Sonographic evaluation of the right upper quadrant of the abdomen is performed. Liver: 14 cm in length at the right midclavicular line. Normal echogenicity. Its contour does not appear frankly lobulated. Three mildly septated cysts are identified in the liver. Two are located in the left lobe, measuring 4.3 x 2.4 x 3.3 cm and 1.7 x 1 x 1.8 cm, another is in the right lobe measuring 2.4 x 2 x 2.2 cm. Main portal vein diameter 0.8 cm. Biliary tree: Common duct 4 mm. No intrahepatic biliary dilatation. Gallbladder: No shadowing calculus/calculi. Nowall thickening. No pericholecystic fluid. Negative sonographic Odell's sign. Pancreas: Partiallyvisualized, unremarkable. Ascites: None seen. Right kidney: 12.4 x 5.6 x 5 cm. Normal cortical echogenicity. No mass. No shadowing calculus. No hydronephrosis. IVC/Aorta: Segments partially seen. Unremarkable. Impression: Three mildly septated cysts in liver. Signed: [facility] Verified Date/Time: 04/05/2018 14:54:01 Reading Location: [address] Ultrasound Reading Room HEPATIC FUNCTION [id number] 14:03:00 Test Item Value Reference Range Interpretation Comments TOTAL PROTEIN (BEAKER) (test code = 6.9 gm/dL 6.0-8.3 770) ALBUMIN (BEAKER) (test code = 1145) 4.5 g/dL 3.5-5.0 BILIRUBIN TOTAL (BEAKER) (test code 0.7 mg/dL 0.2-1.2 = 377) BILIRUBIN DIRECT (BEAKER) (test 0.3 mg/dL 0.1-0.5 code = 706) ALKALINE PHOSPHATASE (BEAKER) (test 64 U/L 40-150 code = 346) AST (SGOT) (BEAKER) (test code = 18 U/L 5-34 353) ALT (SGPT) (BEAKER) (test code = 21 U/L 6-55 347) BASIC METABOLIC [id number] 09:16:00 Test Item Value Reference Range Interpretation Comments SODIUM (BEAKER) 126 meq/L 136-145 L (test code = 381) POTASSIUM (BEAKER) 4.8 meq/L 3.5-5.1 (test code = 379) CHLORIDE (BEAKER) 98 meq/L 98-107 (test code = 382) CO2 (BEAKER) (test 20 meq/L 22-29 L code = 355) BLOOD UREA NITROGEN 5 mg/dL 7-21 L (BEAKER) (test code = 354) CREATININE (BEAKER) 0.78 mg/dL 0.57-1.25 (test code = 358) GLUCOSE RANDOM 95 mg/dL 70-105 (BEAKER) (test code = 652) CALCIUM (BEAKER) 9.4 mg/dL 8.4-10.2 (test code = 697) EGFR (BEAKER) (test mL/min/1.73 INSUFFIC IENT CLINICAL code = 1092) sq m DATA TO CALCULA TE ESTIMATED GFR. CBC W/PLT COUNT & AUTO [id number] 08:44:00 Test Item Value Reference Range Interpretation Comments WHITE BLOOD CELL COUNT (BEAKER) 7.7 K/ L 3.5-10.5 (test code = 775) RED BLOOD CELL COUNT (BEAKER) 4.51 M/ L 3.93-5.22 (test code = 761) HEMOGLOBIN (BEAKER) (test code = 12.6 GM/DL 11.2-15.7 410) HEMATOCRIT (BEAKER) (test code = 37.2 % 34.1-44.9 411) MEAN CORPUSCULAR VOLUME (BEAKER) 82.5 fL 79.4-94.8 (test code = 753) MEAN CORPUSCULAR HEMOGLOBIN 27.9 pg 25.6-32.2 (BEAKER) (test code = 751) MEAN CORPUSCULAR HEMOGLOBIN CONC 33.9 GM/DL 32.2-35.5 (BEAKER) (test code = 752) RED CELL DISTRIBUTION WIDTH 14.7 % 11.7-14.4 H (BEAKER) (test code = 412) PLATELET COUNT (BEAKER) (test 353 K/CU MM 150-450 code = 756) MEAN PLATELET VOLUME (BEAKER) 8.3 fL 9.4-12.3 L (test code = 754) NUCLEATED RED BLOOD CELLS 0 /100 WBC 0-0 (BEAKER) (test code = 413) NEUTROPHILS RELATIVE PERCENT 72 % (BEAKER) (test code = 429) LYMPHOCYTES RELATIVE PERCENT 17 % (BEAKER) (test code = 430) MONOCYTES RELATIVE PERCENT 8 % (BEAKER) (test code = 431) EOSINOPHILS RELATIVE PERCENT 1 % (BEAKER) (test code = 432) BASOPHILS RELATIVE PERCENT 0 % (BEAKER) (test code = 437) NEUTROPHILS ABSOLUTE COUNT 5.57 K/ L 1.56-6.13 (BEAKER) (test code = 670) LYMPHOCYTES ABSOLUTE COUNT 1.32 K/ L 1.18-3.74 (BEAKER) (test code = 414) MONOCYTES ABSOLUTE COUNT (BEAKER) 0.64 K/ L 0.24-0.36 H (test code = 415) EOSINOPHILS ABSOLUTE COUNT 0.10 K/ L 0.04-0.36 (BEAKER) (test code = 416) BASOPHILS ABSOLUTE COUNT (BEAKER) 0.03 K/ L 0.01-0.08 (test code = 417) IMMATURE GRANULOCYTES-RELATIVE 0 % 0-1 PERCENT (BEAKER) (test code = 2801) BASIC METABOLIC [id number] 01:06:00 Test Item Value Reference Range Interpretation Comments SODIUM (BEAKER) 127 meq/L 136-145 L (test code = 381) POTASSIUM (BEAKER) 4.4 meq/L 3.5-5.1 (test code = 379) CHLORIDE (BEAKER) 98 meq/L 98-107 (test code = 382) CO2 (BEAKER) (test 19 meq/L 22-29 L code = 355) BLOOD UREA NITROGEN 6 mg/dL 7-21 L (BEAKER) (test code = 354) CREATININE (BEAKER) 0.80 mg/dL 0.57-1.25 (test code = 358) GLUCOSE RANDOM 88 mg/dL 70-105 (BEAKER) (test code = 652) CALCIUM (BEAKER) 9.0 mg/dL 8.4-10.2 (test code = 697) EGFR (BEAKER) (test mL/min/1.73 INSUFFIC IENT CLINICAL code = 1092) sq m DATA TO CALCULA TE ESTIMATED GFR. [id number] 18:02:00 Test Item Value Reference Range Interpretation Comments AMMONIA (BEAKER) (test code = 348) 35 mol/L 18-72 BASIC METABOLIC [id number] 17:31:00 Test Item Value Reference Range Interpretation Comments SODIUM (BEAKER) 126 meq/L 136-145 L (test code = 381) POTASSIUM (BEAKER) 4.3 meq/L 3.5-5.1 (test code = 379) CHLORIDE (BEAKER) 98 meq/L 98-107 (test code = 382) CO2 (BEAKER) (test 20 meq/L 22-29 L code = 355) BLOOD UREA NITROGEN 5 mg/dL 7-21 L (BEAKER) (test code = 354) CREATININE (BEAKER) 0.81 mg/dL 0.57-1.25 (test code = 358) GLUCOSE RANDOM 108 mg/dL 70-105 H (BEAKER) (test code = 652) CALCIUM (BEAKER) 9.2 mg/dL 8.4-10.2 (test code = 697) EGFR (BEAKER) (test mL/min/1.73 INSUFFIC IENT CLINICAL code = 1092) sq m DATA TO CALCULA TE ESTIMATED GFR. BASIC METABOLIC [id number] 09:29:00 Test Item Value Reference Range Interpretation Comments SODIUM (BEAKER) 122 meq/L 136-145 L (test code = 381) POTASSIUM (BEAKER) 4.7 meq/L 3.5-5.1 (test code = 379) CHLORIDE (BEAKER) 93 meq/L 98-107 L (test code = 382) CO2 (BEAKER) (test 20 meq/L 22-29 L code = 355) BLOOD UREA NITROGEN 4 mg/dL 7-21 L (BEAKER) (test code = 354) CREATININE (BEAKER) 0.78 mg/dL 0.57-1.25 (test code = 358) GLUCOSE RANDOM 96 mg/dL 70-105 (BEAKER) (test code = 652) CALCIUM (BEAKER) 8.7 mg/dL 8.4-10.2 (test code = 697) EGFR (BEAKER) (test mL/min/1.73 INSUFFIC IENT CLINICAL code = 1092) sq m DATA TO CALCULA TE ESTIMATED GFR. BLOOD GAS, [id number] 05:19:00 Test Item Value Reference Range Interpretation Comments PH VENOUS (BEAKER) (test code = 7.41 7.32-7.42 701) PCO2 VENOUS (BEAKER) (test code = 36 mmHg 41-51 L 755) PO2 VENOUS (BEAKER) (test code = 54 mmHg 25-40 H 702) O2 SATURATION VENOUS (BEAKER) 88.6 % 40.0-70.0 H (test code = 703) HCO3 VENOUS (BEAKER) (test code = 22 mmol/L 21-29 705) BASE EXCESS VENOUS (BEAKER) (test -2.1 mmol/L -2.0-3.0 L code = 704) PATIENT TEMPERATURE (BEAKER) 37.0 C (test code = 1818) BASIC METABOLIC [id number] 03:52:00 Test Item Value Reference Range Interpretation Comments SODIUM (BEAKER) 117 meq/L 136-145 LL (test code = 381) POTASSIUM (BEAKER) 3.4 meq/L 3.5-5.1 L (test code = 379) CHLORIDE (BEAKER) 88 meq/L 98-107 L (test code = 382) CO2 (BEAKER) (test 19 meq/L 22-29 L code = 355) BLOOD UREA NITROGEN 4 mg/dL 7-21 L (BEAKER) (test code = 354) CREATININE (BEAKER) 0.70 mg/dL 0.57-1.25 (test code = 358) GLUCOSE RANDOM 105 mg/dL 70-105 (BEAKER) (test code = 652) CALCIUM (BEAKER) 8.3 mg/dL 8.4-10.2 L (test code = 697) EGFR (BEAKER) (test mL/min/1.73 INSUFFIC IENT CLINICAL code = 1092) sq m DATA TO CALCULA TE ESTIMATED GFR. [id number] 03:48:00 Test Item Value Reference Range Interpretation Comments PHOSPHORUS (BEAKER) (test code = 3.6 mg/dL 2.3-4.7 604) [id number] 03:48:00 Test Item Value Reference Range Interpretation Comments MAGNESIUM (BEAKER) (test code = 2.1 mg/dL 1.6-2.6 627) LACTIC ACID, VENOUS, WHOLE [id number] 03:44:00 Test Item Value Reference Range Interpretation Comments LACTATE BLOOD VENOUS 1.0 mmol/L 0.5-2.2 Specime n slightly (2) (BEAKER) (test hemolyzed code = 2872) Effective 02/12/2016: Units/Reference Range ChangeNew: 0.5-2.2 mmol/L Previous: 5-20 mg/dLCBC (HEMOGRAM ONLY)2018 03:19:00 Test Item Value Reference Range Interpretation Comments WHITE BLOOD CELL COUNT (BEAKER) 10.0 K/ L 3.5-10.5 (test code = 775) RED BLOOD CELL COUNT (BEAKER) 4.28 M/ L 3.93-5.22 (test code = 761) HEMOGLOBIN (BEAKER) (test code = 12.1 GM/DL 11.2-15.7 410) HEMATOCRIT (BEAKER) (test code = 33.9 % 34.1-44.9 L 411) MEAN CORPUSCULAR VOLUME (BEAKER) 79.2 fL 79.4-94.8 L (test code = 753) MEAN CORPUSCULAR HEMOGLOBIN 28.3 pg 25.6-32.2 (BEAKER) (test code = 751) MEAN CORPUSCULAR HEMOGLOBIN CONC 35.7 GM/DL 32.2-35.5 H (BEAKER) (test code = 752) RED CELL DISTRIBUTION WIDTH 13.5 % 11.7-14.4 (BEAKER) (test code = 412) PLATELET COUNT (BEAKER) (test 316 K/CU MM 150-450 code = 756) MEAN PLATELET VOLUME (BEAKER) 8.2 fL 9.4-12.3 L (test code = 754) NUCLEATED RED BLOOD CELLS 0 /100 WBC 0-0 (BEAKER) (test code = 413) [id number] 02:06:00 Test Item Value Reference Range Interpretation Comments CORTISOL, TOTAL (BEAKER) (test 17.8 ug/dL 3.7-19.4 code = 2755) TSH/FREE T4 IF [id number] 02:06:00 Test Item Value Reference Range Interpretation Comments THYROID STIMULATING HORMONE 1.09 uIU/mL 0.35-4.94 (BEAKER) (test code = 772) HIV-1 ANTIGEN WITH HIV-1/2 [id number] 00:06:00 Test Item Value Reference Range Interpretation Comments HIV-1 ANTIGEN WITH HIV 1\T\2 Nonreactive Nonreactive ANTIBODY (2) (BEAKER) (test code = 2586) BASIC METABOLIC [id number] 23:30:00 Test Item Value Reference Range Interpretation Comments SODIUM (BEAKER) 114 meq/L 136-145 LL (test code = 381) POTASSIUM (BEAKER) 3.1 meq/L 3.5-5.1 L (test code = 379) CHLORIDE (BEAKER) 85 meq/L 98-107 L (test code = 382) CO2 (BEAKER) (test 19 meq/L 22-29 L code = 355) BLOOD UREA NITROGEN 5 mg/dL 7-21 L (BEAKER) (test code = 354) CREATININE (BEAKER) 0.68 mg/dL 0.57-1.25 (test code = 358) GLUCOSE RANDOM 103 mg/dL 70-105 (BEAKER) (test code = 652) CALCIUM (BEAKER) 8.1 mg/dL 8.4-10.2 L (test code = 697) EGFR (BEAKER) (test mL/min/1.73 INSUFFIC IENT CLINICAL code = 1092) sq m DATA TO CALCULA TE ESTIMATED GFR. RAD, CHEST, 1 VIEW, NON [id number] 21:34:00Reason for exam:->ALTERED MENTAL STATUSReason for exam:->NEUROLOGIC PROBLEMIs the patient pregn ant?->NoFINAL REPORT EXAMINATION: AP PORTABLE CHEST RADIOGRAPH CLINICAL INDICATION: Altered mental status IMPRESSION: No comparison studies are available. Thin curvilinear opacities are noted at the left lung base. The morphology and distribution favor subsegmental atelectasis or scarrin g. No evidence of a discrete pneumonia, pulmonary edema, pleural effusion or pneumothorax. Heart size is borderline enlarged for this projection. Mediastinal contours are sharp. No evidence of an acuteosseous abnormality. Signed: Nolan Prettyeport Verified Date/Time: 04/03/2018 21:34:48 Reading Location: [address] Reading Room OSMOLALITY, [id number] 21:10:00 Test Item Value Reference Range Interpretation Comments OSMOLALITY, SERUM (BEAKER) (test 236 mOsm/kg 275-295 L code = 615) RAPID DRUG SCREEN, [id number] 20:47:00 Test Item Value Reference Range Interpretation Comments BARBITURATE URINE (BEAKER) (test Negative Negative code = 725) BENZODIAZEPINE SCREEN URINE (BEAKER) Negative Negative (test code = 726) COCAINE (METAB.) SCREEN (BEAKER) Negative Negative (test code = 1164) METHADONE SCREEN (BEAKER) (test code Negative Negative = 1436) OPIATE SCREEN URINE (BEAKER) (test Negative Negative code = 734) CANNABINOID SCREEN URINE (BEAKER) Negative Negative (test code = 727) AMPH/METHAMPH SCREEN (BEAKER) (test Negative Negative code = 1438) PHENCYCLIDINE SCREEN URINE (BEAKER) Negative Negative (test code = 608) OXYCODONE SCREEN URINE (BEAKER) Negative Negative (test code = 2761) DRUG CUTOFF CONC.Cocaine 300 ng/mL Cannabinoid 50 ng/mL Benzodiazepine 200 ng/mLBarbiturate 200 ng/mLPhencyclidine 25 ng/mLOpiate 300 ng/mLMethadone 300 ng/mLAmphetamine/ 1000 ng/mL MethamphetamineOxycodone 300 ng/mLThis assay provides an unconfirmed qualitative test result for the clinical management of patients in emergency situations. Chain of custody not maintained. Some mbqb-irz-xvnjyud medications, as well as adulterants, may cause inaccurate results. Clinical correlation should be applied. A more comprehensive drug screen or confirmation of a detected drug may be performed upon request. [id number] 20:43:00 Test Item Value Reference Range Interpretation Comments PHOSPHORUS (BEAKER) (test code = 1.8 mg/dL 2.3-4.7 L 604) HEPATIC FUNCTION [id number] 20:43:00 Test Item Value Reference Range Interpretation Comments TOTAL PROTEIN (BEAKER) (test code = 7.0 gm/dL 6.0-8.3 770) ALBUMIN (BEAKER) (test code = 1145) 4.7 g/dL 3.5-5.0 BILIRUBIN TOTAL (BEAKER) (test code 1.1 mg/dL 0.2-1.2 = 377) BILIRUBIN DIRECT (BEAKER) (test 0.4 mg/dL 0.1-0.5 code = 706) ALKALINE PHOSPHATASE (BEAKER) (test 67 U/L 40-150 code = 346) AST (SGOT) (BEAKER) (test code = 22 U/L 5-34 353) ALT (SGPT) (BEAKER) (test code = 22 U/L 6-55 347) [id number] 20:43:00 Test Item Value Reference Range Interpretation Comments LIPASE (BEAKER) (test code = 749) 21 U/L 8-78 CREATININE, RANDOM [id number] 20:40:00 Test Item Value Reference Range Interpretation Comments CREATININE URINE (BEAKER) (test 11.7 mg/dL code = 375) Reference Range: No NormalsSODIUM, RANDOM [id number] 20:40:00 Test Item Value Reference Range Interpretation Comments SODIUM URINE (BEAKER) (test code = 60 meq/L 243) Reference Range: No NormalsOSMOLALITY, [id number] 20:40:00 Test Item Value Reference Range Interpretation Comments OSMOLALITY URINE (BEAKER) (test 169 mOsm/kg 40-1400 code = 614) [id number] 20:37:00 Test Item Value Reference Range Interpretation Comments ETHANOL (BEAKER) (test code = 400) < mg/dL <=10 [id number] 20:35:00 Test Item Value Reference Range Interpretation Comments AMMONIA (BEAKER) (test code = 348) 33 mol/L 18-72 MR, MRA, BRAIN, WITHOUT [id number] 19:42:00FINAL REPORT MRA head and neck without contrast. CLINICAL HISTORY: Stroke. CO MPARISON: None. TECHNIQUE: Two- and three-dimensional wtnq-vs-argdwc MRA images of the intra- and extracranial carotid and vertebral arterial circulations were obtained, from which maximal intensity projection 3-D reconstructions were created. FINDINGS: MRA neck: There is no vessel occlusion or NASCET-quantifiable stenosis in the extracranial carotid or vertebral arterial circulations. Flow is antegrade in both vertebral arteries. There is a 2 cm round T2 hyperintense structure/lesion anterior to the right common carotid artery (image 1). MRA [place]: There is no vessel occlusion, flow-limiting stenosis, or aneurysm in the intracranial carotid or vertebrobasilar arterial circulations. IMPRESSION: Negative intra- and extracranial MRAs. 2 cm round T2 hyperintense structure/lesion anterior to the right common carotid artery, which may represent a thyroid nodule or internal jugular vein. A contrast enhanced CT neck is recommended for further evaluation. Dr Prater of neurology was notified at approximately 7:40 PM on 04/03/2018. Signed: Leela Venturaort Verified Date/Time: 04/03/201819:42:20 Reading Location: [address] Transitional Reading Room MR, MRA, NECK, WITHOUT IV [id number] 19:42:00FINAL REPORT MRA head and neck without contrast. CLINICAL HISTORY: Stroke. COMPARISON: None. TECHNIQUE: Two- and three-dimensional etea-ju-spwhki MRA images of the intra- and extracranial carotid and vertebral arterial circulations were obtained, from which maximal intensity projection 3-D reconstructions were created. FINDINGS: MRA neck: There is no vessel occlusion or NASCET-quantifiable stenosis in the extracranial carotid or vertebral arterial circulations. Flow is antegrade in both vertebral arteries. There is a 2 cm round T2 hyperintense structure/lesion anterior to the right common carotid artery (image 1). MRA [place]: There is no vessel occlusion, flow-lauren iting stenosis, or aneurysm in the intracranial carotid or vertebrobasilar arterial circulations. IMPRESSION: Negative intra- and extracranial MRAs. 2 cm round T2 hyperintense structure/lesion anterior to the right common carotid artery, which may represent a thyroid nodule or internal jugular vein. A contrast enhanced CT neck is recommended for further evaluation. Dr Prater of neurology was notified at approximately 7:40 PM on 04/03/2018. Signed: Leela Venturaort Verified Date/Time: 04/03/201819:42:20 Reading Location: [facility] C0[facility] Transitional Reading Room CREATINE KINASE (CK), TOTAL AND [id number] 19:36:00 Test Item Value Reference Range Interpretation Comments CREATINE KINASE TOTAL (BEAKER) 103 U/L 29-200 (test code = 380) CREATINE KINASE-MB (BEAKER) (test 2.5 ng/mL 0.0-6.6 code = 750) CREATINE KINASE-MB INDEX (BEAKER) 2.4 % (test code = 395) CK-MB Reference Range:<6.7 Normal6.7-10.0 Borderline>10.0 AbnormalTROPONIN [id number] 19:36:00 Test Item Value Reference Range Interpretation Comments TROPONIN I (BEAKER) (test code = 397) < ng/mL 0.00-0.03 Troponin I (TnI) levels must be interpreted in the context of the presenting symptoms and the clinical findings. Elevated TnI levels indicate myocardial damage, but are not specific for ischemic heart disease. Elevated TnI levels are seen in patients with other cardiac conditions (including myocarditis and congestive heart failure), and slight TnI elevations occur in patients with other conditions, including sepsis, renal failure, acidosis, acute neurological disease, and persistent tachyarrhythmia.MR, BRAIN, WITHOUT [id number] 19:34:00FINAL REPORT Exam: MRI brain without contrast. Comparison: No prior study for comparison Clinical indication: Stroke Technique: Multiplanar multi sequential MR imaging of the brain was performed without the administration of intravenous contrast. Findings: There is no intracranial mass, mass effect, extra-axial collection, hydrocephalus or herniation. There is no restricted diffusion to suggest an acute infarct. There is no abnormality on susceptibility sequences to suggesthemorrhage or hemosiderin deposition. There are minimal FLAIR hyperintensities in the bilateral periventricular white matter without mass effect, nonspecific but likely represent white matter microvascular ischemic changes. The skull base flow-voids are seen in keeping with their patency. The mastoidair cells are clear. There is a small retention cyst or polyp in the left maxillary sinus. The orbits, sella and parasellar regions are unremarkable. The craniocervical junction is normal. Impression:Minimal white matter microvascular ischemic changes.No acute infarct, acute intracranial hemorrhageor mass effect. Signed: Leela Ventura MDReport Verified Date/Time: 04/03/2018 19:34:38 Reading Locat ion: [facility] B1 C013T Transitional Reading Room Electronically signed by: LEELA VENTURA MD on04/03/2018 07:34 PMB-TYPE NATRIURETIC FACTOR (BNP)2018-04-03 19:33:00 Test Item Value Reference Range Interpretation Comments B-TYPE NATRIURETIC PEPTIDE (BEAKER) 90 pg/mL 0-100 (test code = 700) URINALYSIS W/ [id number] 18:43:00 Test Item Value Reference Range Interpretation Comments COLOR (BEAKER) (test code = 470) Colorless CLARITY (BEAKER) (test code = Clear 469) SPECIFIC GRAVITY UA (BEAKER) 1.001 1.001-1.035 (test code = 468) PH UA (BEAKER) (test code = 467) 7.0 5.0-8.0 PROTEIN UA (BEAKER) (test code = Negative Negative 464) GLUCOSE UA (BEAKER) (test code = Negative Negative 365) KETONES UA (BEAKER) (test code = Trace Negative A 371) BILIRUBIN UA (BEAKER) (test code Negative Negative = 462) BLOOD UA (BEAKER) (test code = Negative Negative 461) NITRITE UA (BEAKER) (test code = Negative Negative 465) LEUKOCYTE ESTERASE UA (BEAKER) Negative Negative (test code = 466) UROBILINOGEN UA (BEAKER) (test 0.2 mg/dL 0.2-1.0 code = 463) RBC UA (BEAKER) (test code = < /HPF 519) WBC UA (BEAKER) (test code = < /HPF 520) SOURCE(BEAKER) (test code = Urine, Gooden 7855) BASIC METABOLIC [id number] 18:32:00 Test Item Value Reference Range Interpretation Comments SODIUM (BEAKER) 114 meq/L 136-145 LL (test code = 381) POTASSIUM (BEAKER) 3.3 meq/L 3.5-5.1 L (test code = 379) CHLORIDE (BEAKER) 87 meq/L 98-107 L (test code = 382) CO2 (BEAKER) (test 17 meq/L 22-29 L code = 355) BLOOD UREA NITROGEN 5 mg/dL 7-21 L (BEAKER) (test code = 354) CREATININE (BEAKER) 0.72 mg/dL 0.57-1.25 (test code = 358) GLUCOSE RANDOM 113 mg/dL 70-105 H (BEAKER) (test code = 652) CALCIUM (BEAKER) 8.5 mg/dL 8.4-10.2 (test code = 697) EGFR (BEAKER) (test mL/min/1.73 INSUFFIC IENT CLINICAL code = 1092) sq m DATA TO CALCULA TE ESTIMATED GFR. [id number] 18:28:00 Test Item Value Reference Range Interpretation Comments MAGNESIUM (BEAKER) (test code = 1.7 mg/dL 1.6-2.6 627) [id number] 18:02:00 Test Item Value Reference Range Interpretation Comments PROTIME (BEAKER) (test code = 12.9 seconds 11.7-14.7 759) INR (BEAKER) (test code = 370) 1.0 <=5.9 PARTIAL THROMBOPLASTIN TIME 32.0 seconds 22.5-36.0 (BEAKER) (test code = 760) RECOMMENDED COUMADIN/WARFARIN INR THERAPY RANGESSTANDARD DOSE: 2.0 - 3.0 Includes: PROPHYLAXIS forvenous thrombosis, systemic embolization; TREATMENT for venous thrombosis and/or pulmonary embolus.HIGH RISK: Target INR is 2.5-3.5 for patients with mechanical heart valves.CBC W/PLT COUNT & AUTO DIFFERENTIAL 2018-04-03 17:54:00 Test Item Value Reference Range Interpretation Comments WHITE BLOOD CELL COUNT (BEAKER) 11.2 K/ L 3.5-10.5 H (test code = 775) RED BLOOD CELL COUNT (BEAKER) 4.36 M/ L 3.93-5.22 (test code = 761) HEMOGLOBIN (BEAKER) (test code = 12.2 GM/DL 11.2-15.7 410) HEMATOCRIT (BEAKER) (test code = 36.2 % 34.1-44.9 411) MEAN CORPUSCULAR VOLUME (BEAKER) 83.0 fL 79.4-94.8 (test code = 753) MEAN CORPUSCULAR HEMOGLOBIN 28.0 pg 25.6-32.2 (BEAKER) (test code = 751) MEAN CORPUSCULAR HEMOGLOBIN CONC 33.7 GM/DL 32.2-35.5 (BEAKER) (test code = 752) RED CELL DISTRIBUTION WIDTH 13.6 % 11.7-14.4 (BEAKER) (test code = 412) PLATELET COUNT (BEAKER) (test 318 K/CU MM 150-450 code = 756) MEAN PLATELET VOLUME (BEAKER) 8.0 fL 9.4-12.3 L (test code = 754) NUCLEATED RED BLOOD CELLS 0 /100 WBC 0-0 (BEAKER) (test code = 413) NEUTROPHILS RELATIVE PERCENT 80 % (BEAKER) (test code = 429) LYMPHOCYTES RELATIVE PERCENT 13 % (BEAKER) (test code = 430) MONOCYTES RELATIVE PERCENT 5 % (BEAKER) (test code = 431) EOSINOPHILS RELATIVE PERCENT 1 % (BEAKER) (test code = 432) BASOPHILS RELATIVE PERCENT 0 % (BEAKER) (test code = 437) NEUTROPHILS ABSOLUTE COUNT 8.96 K/ L 1.56-6.13 H (BEAKER) (test code = 670) LYMPHOCYTES ABSOLUTE COUNT 1.46 K/ L 1.18-3.74 (BEAKER) (test code = 414) MONOCYTES ABSOLUTE COUNT (BEAKER) 0.60 K/ L 0.24-0.36 H (test code = 415) EOSINOPHILS ABSOLUTE COUNT 0.06 K/ L 0.04-0.36 (BEAKER) (test code = 416) BASOPHILS ABSOLUTE COUNT (BEAKER) 0.02 K/ L 0.01-0.08 (test code = 417) IMMATURE GRANULOCYTES-RELATIVE 0 % 0-1 PERCENT (BEAKER) (test code = 2801) POCT-GLUCOSE [id number] 17:49:00 Test Item Value Reference Range Interpretation Comments POC-GLUCOSE METER 100 mg/dL 70-110 TESTED AT [facility] 6720 (BEAKER) (test code = ALDA Hull [facility] 1538) [address] CT, BRAIN/STROKE [id number] 17:45:00Reason for exam:->stroke protocolIs the patient ?->NoWhat is the patient's sedation req uirement?->No SedationFINAL REPORT EXAMINATION NONCONTRAST HEAD CT SCAN CLINICAL HISTORY: Mentalstatus changes with confusion and dysarthria. Cerebral ischemia. Stroke protocol COMPARISON CT: NoneEPISODE OF CARE: Initial TECHNIQUE: Axial tomographic images were obtained through the brain from the vertex to the skull base without intravenous contrast. The exam was performed according to our departmental dose optimization program which includes automated exposure control, adjustment of the mA and/or kV according to patient's size and/or use of iterative reconstructive technique. FINDINGS: No ev idence of acute intracranial hemorrhage, mass effect, cerebral edema, midline shift, hydrocephalus or abnormal extra-axial fluid collection. Although there are no definitive findings to suggest evolving ischemia, CT is not sensitive for the detection of early or small infarcts. The orbits are unremarkable. The visualized paranasal sinuses, tympanic cavities and mastoid air cells are well pneumatized.No definite evidence of an acute osseous abnormality. IMPRESSION: No specific evidence of an acute intracranial process. Early ischemia cannot be excluded. Brain MRI could be performed for further evaluation if clinically warranted. Results discussed with Dr. Almaguer at 1740 hours. Signed: Nolan Pretty MDReport Verified Date/Time: 04/03/2018 17:45:48 Reading Location: [address] Reading Room
== END 2020-11-18 20:07 ==
LOC: ER 10:37
DX: R45.851 Suicidal ideations (principal); Z20.822 Contact with and (suspected) exposure to COVID-19; F32.9 Major depressive disorder, single episode, unspecified; F41.9 Anxiety disorder, unspecified; I10 Essential (primary) hypertension
CPT/HCPCS: 93005; 85025; 80048; 36415; 80320; 80329 ×2; 85610; 80076; 80307 ×8; 85730; 81003; 99285; U0003

== ENCOUNTER 2021-01-18 13:14 | Emergency (ER) | payer BC ==
--- OUTSIDE RECORDS SUMMARY | 2021-01-18 13:18 | XMS REPORT | Continuity of Care Document ---
:1965 Author Organization [facility] t Address [address] [id number] Care Team Providers Name Role Phone Ijeoma DONATO Primary Care Physician Pamela Munoz Attending Clinician Doctor Unassigned, Name Attending Clinician Unavailable Only, Test Attending Clinician Unavailable Erin Dunaway Attending Clinician , [facility] Attending Clinician Unavailable Paz ALMAGUER Attending Clinician Unavailable VALERIE GARRETT Admitting Clinician Unavailable Payers Payer Name Policy Type Policy Effective Date Expiration Date Sour ce Number BLUE CROSS/BLUE [id number] [address] [facility] SHIELDBCBS ADV 00:00:00 - [facility] HMO [facility] [id number] [facility] [id number] [address] Problems Condition Condition Condition Status Onset Resolution Last Treating Co mments Source Name Details Category Date Date Treatment Clinician Date 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 6-27 Zuleika kes - disorder disorder 00:00: Medica [...] encephalop 00:00: Me dical athy athy 00 Center Alcohol Alcohol Disease Active [facility] abuse abuse 11-16 [facility] 00:00: st 00 Allergies, Adverse Reactions, Alerts This patient has no known allergies or adverse reactions. Social History Social Habit Start Date Stop Date Quantity Comments Source Sex Assigned At [facility] Tobacco use and 2017-11-16 2017-11-16 Never used [facility] ethodist exposure 00:00:00 00:00:00 Alcohol intake 2017-11-16 2017-11-16 Current drinker [place] 00:00:00 00:00:00 of alcohol (finding) Smoking Status Start Date Stop Date Source Current some day smoker 2017-11-16 00:00:00 [place] Medications Ordered Filled Start Stop Current Ordering Indication Dosage Frequency Signature Comments Components Source Medication Medication Date Date Medication? Clinician (SIG) Name Name omeprazole Yes 40mg QD Take [address] (PRILOSEC) 6-28 by mouth [facility] - 40 MG 13:36: every Medical capsule 16 morning. [place] metoprolol Yes 100mg QD Take [address] (TOPROL-XL) 6-28 mg by [facility] - 100 MG 24 13:36: mouth Medical hr tablet 16 daily. [place] vortioxetin Yes 10mg QD Take [address] [facility] 10 mg Tab 6-28 by mouth Luke s - 13:36: daily. Medical [address] [place] [address] OLANZapine Yes 15mg QD Take [address] (ZYPREXA) 6-28 by mouth [facility] - 15 MG 13:36: nightly. Medical tablet 16 [place] methylpheni Yes 54mg QD Take [address] date HCl 6-28 by mouth [facility] - (CONCERTA) 13:36: every Medica l 54 MG CR 16 morning. [place] tablet liothyronin Yes 5ug Q.5D Take [address] [facility] (CYTOMEL) 6-28 by mouth 2 Zuleika kes - 5 MCG 13:36: (two) Medical tablet 16 times Center daily. levothyroxi Yes 75ug QD Take 75 Jessica ston ne 2-07 mcg by [facility] (SYNTHROID, 08:25: mouth st LEVOXYL) 75 59 every mcg tablet morning. liothyronin Yes 5ug Q.5D Take 5 mcg [facility] [...] mg 53 tablet clonAZEPAM 2018-0 Yes 1mg Q.[id number] Take 1 mg [facility] (KlonoPIN) 2-07 [id number] by mouth 3 [facility] 1 MG tablet 08:25: 3D (three) st 53 times a day. Procedures Procedure Date / Time Performed Performing Clinician Sour e US THYROID 2020-02-08 14:05:00 Melanie Ro [facility] Plan of Care Planned Activity Planned Date Details Comments Source Future Scheduled 2021-05-11 INFLUENZA VACCINE [place] Test 00:00:00 [code = INFLUENZA VACCINE] Future Scheduled 2020-06-11 INFLUENZA VACCINE TANVI Marr - Test 00:00:00 (#1) [code = [facility] INFLUENZA VACCINE (#1)] Future Scheduled 2013 BREAST CANCER [facility] Test 00:00:00 SCREENING [code = BREAST CANCER SCREENING] Future Scheduled 2013 COLONOSCOPY SCREENING Ho y[place]ra [facility] Test 00:00:00 [code = COLONOSCOPY SCREENING] Future Scheduled 2013 SHINGLES VACCINES [place] Test 00:00:00 (#1) [code = SHINGLES VACCINES (#1)] Future Scheduled [address] [facility] - Test 00:00:00 (procedure) [code = Medical Center 26097068] Future Scheduled 1984 Screening for [facility] Test 00:00:00 malignant neoplasm of cervix (procedure) [code = 736831734] Future Scheduled [address] [facility] - Test 00:00:00 [facility] cervix (procedure) [code = 399663841] Future Scheduled 1979 COVID-19 VACCINE (1) Jessica [facility] [place] Test 00:00:00 [code = COVID-19 VACCINE (1)] Future Scheduled [address] [facility] - Test 00:00:00 [facility] breast (procedure) [code = 071616278] Future Scheduled [address] [facility] - Test 00:00:00 malignant ne[facility] of [facility] colon (procedure) [code = 167220132] Encounters Start End Encounter Admission Attending Care Care Encounter Source Date/Time Date/Time Type Type Clinicians Facility Department ID 2020-10-01 2020-10-01 Emergency Naima Zachary [facility] [id number] 15:38:00 17:19:00 Pamela Dale [id number] [place] [id number] [place] [id number] 2020-10-01 2020-10-01 Orders Doctor PINK[facility] [id number] 00:00:00 00:00:00 Only Unassigned, [place] [id number] [facility] 4.2.7.2.686 [id number] 2020-04-23 2020-07-03 Laboratory Only, Web [facility] [id number] 09:22:46 08:51:45 Only Test Health 350.1.13.10 Specialty 4.2.7.2.686 [place] [id number] [place] 370 Results Test Description Test Time Test Comments Results Result Sourc e Comments US, THYROID 2020-01-12 Reason for FINAL REPORT 0 Exam:->HX OF PATIENT ID: 14:13:00 PARTIAL [id number] Thyroid HYPROIDECTOY Ultrasound History: Partial thyroidectomy Comparison: [...] nodule on this examination. Signed: Eduardo Prince Verified Date/Time: 02/08/2020 14:13:43 Reading Location: [facility] Diagnostic Imaging Reading Room - [place] [address] Thyroid 2020-01-12 Interface, External [facility] 0 Ris In - 02/08/2020 [facility] - 14:13:00 2:15 PM CDTFINAL Medical REPORT PATIENT ID: Center [id number] Thyroid Ultrasound History: Partial thyroidectomy Comparison: none [...] nodule on this examination. Signed: Eduardo Prince Verified Date/Time: 02/08/2020 14:13:43 Reading Location: [facility] Diagnostic Imaging Reading Room - [place] [address] 1129 D CULTURE 2018-04-09 00:00:00 Test Item Value Reference Range Interpretation Comme nts CULTURE (BEAKER) (test code = 1095) No growth in 5 days BLOOD [id number] 00:00:00 Test Item Value Reference Range Interpretation Comments CULTURE (BEAKER) (test No growth in 5 days code = 1095) BASIC METABOLIC [id number] 11:06:00 Test Item Value Reference Range Interpretation [...] TO CALCULA TE ESTIMATED GFR. BASIC METABOLIC [id number] 07:36:00 Test Item Value Reference Range Interpretation [...] TO CALCULA TE ESTIMATED GFR. BASIC METABOLIC [id number] 19:50:00 Test Item Value Reference Range Interpretation [...] TO CALCULA TE ESTIMATED GFR. BASIC METABOLIC [id number] 08:59:00 Test Item Value Reference Range Interpretation [...] TO CALCULA TE ESTIMATED GFR. BASIC METABOLIC [id number] 01:18:00 Test Item Value Reference Range Interpretation [...] TO CALCULA TE ESTIMATED GFR. BASIC METABOLIC [id number] 16:32:00 Test Item Value Reference Range Interpretation [...] TO CALCULA TE ESTIMATED GFR. U/S, ABDOMINAL, [id number] 14:54:00Abdomen limited area? Add comment if clarification [...] mildly septated cysts in liver. Signed: Oma Peters Verified Date/Time: 04/05/2018 14:54:01 Reading Location: [address] Ultrasound Reading Room HEPATIC FUNCTION [id number] 14:03:00 Test Item Value Reference Range Interpretation [...] = 21 U/L 6-55 347) BASIC METABOLIC [id number] 09:16:00 Test Item Value Reference Range Interpretation [...] ESTIMATED GFR. CBC W/PLT COUNT & AUTO [id number] 08:44:00 Test Item Value Reference Range Interpretation [...] (BEAKER) (test code = 2801) BASIC METABOLIC [id number] 01:06:00 Test Item Value Reference Range Interpretation [...] m DATA TO CALCULA TE ESTIMATED GFR. [id number] 18:02:00 Test Item Value Reference Range Interpretation Comments AMMONIA (BEAKER) (test code = 348) 35 mol/L 18-72 BASIC METABOLIC [id number] 17:31:00 Test Item Value Reference Range Interpretation [...] TO CALCULA TE ESTIMATED GFR. BASIC METABOLIC [id number] 09:29:00 Test Item Value Reference Range Interpretation [...] TO CALCULA TE ESTIMATED GFR. BLOOD GAS, [id number] 05:19:00 Test Item Value Reference Range Interpretation [...] C (test code = 1818) BASIC METABOLIC [id number] 03:52:00 Test Item Value Reference Range Interpretation [...] m DATA TO CALCULA TE ESTIMATED GFR. [id number] 03:48:00 Test Item Value Reference Range Interpretation Comments PHOSPHORUS (BEAKER) (test code = 3.6 mg/dL 2.3-4.7 604) [id number] 03:48:00 Test Item Value Reference Range Interpretation Comments MAGNESIUM (BEAKER) (test code = 2.1 mg/dL 1.6-2.6 627) LACTIC ACID, VENOUS, WHOLE [id number] 03:44:00 Test Item Value Reference Range Interpretation [...] WBC 0-0 (BEAKER) (test code = 413) [id number] 02:06:00 Test Item Value Reference Range Interpretation Comments CORTISOL, TOTAL (BEAKER) (test 17.8 ug/dL 3.7-19.4 code = 2755) TSH/FREE T4 IF [id number] 02:06:00 Test Item Value Reference Range Interpretation Comments THYROID STIMULATING HORMONE 1.09 uIU/mL 0.35-4.94 (BEAKER) (test code = 772) HIV-1 ANTIGEN WITH HIV-1/2 [id number] 00:06:00 Test Item Value Reference Range Interpretation Comments HIV-1 ANTIGEN WITH HIV 1\T\2 Nonreactive Nonreactive ANTIBODY (2) (BEAKER) (test code = 2586) BASIC METABOLIC [id number] 23:30:00 Test Item Value Reference Range Interpretation [...] ESTIMATED GFR. RAD, CHEST, 1 VIEW, NON [id number] 21:34:00Reason for exam:->ALTERED MENTAL STATUSReason for exam:->NEUROLOGIC [...] evidence of an acuteosseous abnormality. Signed: Nolan Pretty MDReport Verified Date/Time: 04/03/2018 21:34:48 Reading Location: [address] Reading Room OSMOLALITY, [id number] 21:10:00 Test Item Value Reference Range Interpretation Comments OSMOLALITY, SERUM (BEAKER) (test 236 mOsm/kg 275-295 L code = 615) RAPID DRUG SCREEN, [id number] 20:47:00 Test Item Value Reference Range Interpretation [...] situations. Chain of custody not maintained. Some hkcg-xpq-hlhhhwd medications, as well as adulterants, may cause inaccurate results. Clinical correlation should be applied. A more comprehensive drug screen or confirmation of a detected drug may be performed upon request. [id number] 20:43:00 Test Item Value Reference Range Interpretation Comments PHOSPHORUS (BEAKER) (test code = 1.8 mg/dL 2.3-4.7 L 604) HEPATIC FUNCTION [id number] 20:43:00 Test Item Value Reference Range Interpretation [...] (test code = 22 U/L 6-55 347) [id number] 20:43:00 Test Item Value Reference Range Interpretation Comments LIPASE (BEAKER) (test code = 749) 21 U/L 8-78 CREATININE, RANDOM [id number] 20:40:00 Test Item Value Reference Range Interpretation Comments CREATININE URINE (BEAKER) (test 11.7 mg/dL code = 375) Reference Range: No NormalsSODIUM, RANDOM [id number] 20:40:00 Test Item Value Reference Range Interpretation Comments SODIUM URINE (BEAKER) (test code = 60 meq/L 243) Reference Range: No NormalsOSMOLALITY, [id number] 20:40:00 Test Item Value Reference Range Interpretation Comments OSMOLALITY URINE (BEAKER) (test 169 mOsm/kg 40-1400 code = 614) [id number] 20:37:00 Test Item Value Reference Range Interpretation Comments ETHANOL (BEAKER) (test code = 400) < mg/dL <=10 [id number] 20:35:00 Test Item Value Reference Range Interpretation Comments AMMONIA (BEAKER) (test code = 348) 33 mol/L 18-72 MR, MRA, BRAIN, WITHOUT [id number] 19:42:00FINAL REPORT MRA head and neck without contrast. CLINICAL HISTORY: Stroke. CO MPARISON: None. TECHNIQUE: Two- and three-dimensional zmnz-jk-udkepv MRA images of the intra- and extracranial [...] right common carotid artery (image 1). MRA [place]: There is no vessel occlusion, [...] approximately 7:40 PM on 04/03/2018. Signed: Leela Ventura Verified Date/Time: 04/03/201819:42:20 Reading Location: [address] Transitional Reading Room MR, MRA, NECK, WITHOUT IV [id number] 19:42:00FINAL REPORT MRA head and neck without contrast. CLINICAL HISTORY: Stroke. COMPARISON: None. TECHNIQUE: Two- and three-dimensional gwla-ce-okuaav MRA images of the intra- and extracranial [...] right common carotid artery (image 1). MRA [place]: There is no vessel occlusion, [...] approximately 7:40 PM on 04/03/2018. Signed: Leela Ventura Verified Date/Time: 04/03/201819:42:20 Reading Location: [address] Transitional Reading Room CREATINE KINASE (CK), TOTAL AND [id number] 19:36:00 Test Item Value Reference Range Interpretation Comments CREATINE KINASE TOTAL (BEAKER) 103 U/L 29-200 (test code = 380) CREATINE KINASE-MB (BEAKER) (test 2.5 ng/mL 0.0-6.6 code = 750) CREATINE KINASE-MB INDEX (BEAKER) 2.4 % (test code = 395) CK-MB Reference Range:<6.7 Normal6.7-10.0 Borderline>10.0 AbnormalTROPONIN [id number] 19:36:00 Test Item Value Reference Range Interpretation [...] neurological disease, and persistent tachyarrhythmia.MR, BRAIN, WITHOUT [id number] 19:34:00FINAL REPORT Exam: MRI brain without contrast. [...] Verified Date/Time: 04/03/2018 19:34:38 Reading Locat ion: [facility] B1 C013T Transitional Reading Room Electronically signed by: LEELA VENTURA MD 04/03/2018 07:34 PMB-TYPE NATRIURETIC FACTOR (BNP)2018-04-03 19:33:00 Test Item Value Reference Range Interpretation Comments B-TYPE NATRIURETIC PEPTIDE (BEAKER) 90 pg/mL 0-100 (test code = 700) URINALYSIS W/ [id number] 18:43:00 Test Item Value Reference Range Interpretation [...] 520) SOURCE(BEAKER) (test code = Urine, [place] 0548) BASIC METABOLIC [id number] 18:32:00 Test Item Value Reference Range Interpretation [...] m DATA TO CALCULA TE ESTIMATED GFR. [id number] 18:28:00 Test Item Value Reference Range Interpretation Comments MAGNESIUM (BEAKER) (test code = 1.7 mg/dL 1.6-2.6 627) [id number] 18:02:00 Test Item Value Reference Range Interpretation [...] PERCENT (BEAKER) (test code = 2801) POCT-GLUCOSE [id number] 17:49:00 Test Item Value Reference Range Interpretation Comments POC-GLUCOSE METER 100 mg/dL 70-110 TESTED AT [facility] ([facility]) (test code = [place] 1538) [address] CT, BRAIN/STROKE [id number] 17:45:00Reason for exam:->stroke protocolIs the patient ?->NoWhat [...] [place] at 1740 hours. Signed: Nolan Pretty MDRthe [facility] Verified Date/Time: 04/03/2018 17:45:48 Reading Location: [address] Reading Room
--- NOTE | 2021-01-18 14:19 | RAD REPORT ---
EXAM DESCRIPTION: CT - Head Brain Wo Cont - 01/18/2021 2:09 pm CLINICAL HISTORY: TRAUMA COMPARISON: No comparisons TECHNIQUE: Axial 5 mm thick images of the head were obtained without IV contrast. All CT scans are performed using dose optimization technique as appropriate and may include automated exposure control or mA/KV adjustment according to patient size. FINDINGS: No intracranial hemorrhage, mass, edema or shift of mid-line structures. No acute infarcti on changes seen. No abnormal extra-axial fluid collections. Mild volume loss changes are evident. [place]ota tricles are in proportion to any volume loss. No significant chronic ischemic change. Mastoid air cells and visualized portions of the paranasal sinuses are clear. No acute bony findings. IMPRESSION: Negative non-contrast CT head examination for acute finding.
[2021-01-18 15:17] LABS: Urine Blood Trace-intact (Negative); Urine Glucose Negative (Negative); Urine Protein Negative (Negative); Urine pH 6.5 (5.0-7.0)
[2021-01-18 15:31] LABS: Barbiturates NEGATIVE (NEGATIVE); Benzodiazepines NEGATIVE (NEGATIVE); Cocaine NEGATIVE (NEGATIVE); METHAMPHETAM NEGATIVE (NEGATIVE); Methadone NEGATIVE (NEGATIVE); Opiates NEGATIVE (NEGATIVE); Phencyclidine NEGATIVE (NEGATIVE); THC Cannibis NEGATIVE (NEGATIVE)
[2021-01-18 15:38] LABS: Absolute Lymphocytes (CBC) 1.4 K/uL (0.7-4.9); Basophils % 0.5 % (0-1.3); Lymphocytes % 20.3 % (15.3-44.8); MPV 6.6 fL (7.6-11.3); RBC Red Blood Cell Count 3.85 M/uL (3.86-4.86)
[2021-01-18 15:56] LABS: Protime INR 0.84
[2021-01-18] MEDS ORDERED: FOLIC ACID 1 MG, MULTIVITAMINS INJ 10 ML, THIAMINE HCL 100 MG in NA CHLORIDE 0.9% 1,000 ML IV ONE (16:00)
[2021-01-18 16:02] LABS: ALT/SGPT 32 U/L (12-78); AST/SGOT 23 U/L (15-37); Albumin 3.7 g/dL (3.4-5.0); Alkaline Phosphatase 69 U/L (45-117); BUN Blood Urea Nitrogen 12 mg/dL (7-18); Bicarbonate 23 mmol/L (21-32); Bilirubin Direct < 0.1 mg/dL (0-0.2); Bilirubin Total 0.2 mg/dL (0.2-1.0); Creatine Phosphokinase 100 U/L (26-192); Glucose Level 82 mg/dL (74-106); Sodium Level 133 mmol/L (136-145)
--- NOTE | 2021-01-18 16:03 | RAD REPORT ---
EXAM DESCRIPTION: RAD - Chest Single View - 01/18/2021 3:51 pm CLINICAL HISTORY: left side rib pain COMPARISON: None TECHNIQUE: AP portable chest image was obtained 01/18/2021 3:51 pm . FINDINGS: Lungs are clear. Heart and vasculature are normal. No measurable pleural effusion and no p neumothorax. No acute bone finding identified. Rib detail is limited due to inherent limitations of p ortable imaging and patient body habitus. No acute aortic findings suspected. IMPRESSION: No acute cardiopulmonary process. Concerns for rib fracture can be addressed with dedicated imaging.
--- NOTE | 2021-01-18 16:04 | RAD REPORT ---
EXAM DESCRIPTION: RAD - Knee Left 3 View - 01/18/2021 3:51 pm CLINICAL HISTORY: fall;Pain COMPARISON: No comparisons FINDINGS: No fracture, dislocation or periosteal reaction.No joint effusion seen. No joint space meli rowing. No soft tissue abnormality. IMPRESSION: Negative left knee. Clinical concerns for internal derangement or occult bony injury could be further assessed with MR im aging.
--- NOTE | 2021-01-18 16:31 | EDPHYS ---
Physician Documentation [facility] Name: Lizbet Solares Age: 55 yrs Sex: Female : 1965 Arrival Date: 01/18/2021 Time: 13:16 Bed 15 Private MD: ED Physician Dudley Cruz HPI: 01/18 15:05 This 55 yrs old Female presents to ER via Ambulatory with complaints of Fall cp Injury. 15:05 Details of fall: The patient fell from an upright position, while standing, and struck cp a concrete surface. 15:05 Onset: The symptoms/episode began/occurred today. Associated injuries: The patient cp sustained injury to the head, contusion, injury to the chest, specifically the left lower rib area, tenderness, left knee. Historical: - Allergies: 13:42 No Known Allergies; hb - PMHx: 13:42 Anxiety; Depression; Hypertension; hb - PSHx: 13:42 Hysterectomy; hb - Immunization history:: Adult Immunizations up to date, Last tetanus immunization: up to date. - Social history:: Smoking status: Patient denies any tobacco usage or history of. ROS: 15:10 Constitutional: Negative for fever. cp 15:10 Skin: Positive for abrasion(s), of the forehead and left knee. cp 15:10 Psych: Positive for alcohol dependence. 15:10 All other systems are negative. Exam: 15:15 Constitutional: The patient appears in no acute distress, alert, awake, cp non-diaphoretic, non-toxic, well developed, well nourished. 15:15 Head/face: Noted is abrasion(s), that are mild, of the forehead, swelling, that is cp mild, of the forehead. 15:15 Eyes: Periorbital structures: appear normal, Pupils: equal, round, and reactive to light and accomodation, Extraocular movements: intact throughout, Conjunctiva: normal, no exudate, no injection, Sclera: no appreciated abnormality, Lids and lashes: appear normal, bilaterally. 15:15 ENT: External ear(s): are unremarkable, Nose: is normal, Mouth: Lips: moist, Oral mucosa: moist, Posterior pharynx: Airway: no evidence of obstruction, patent. 15:15 Neck: C-spine: vertebral tenderness, is not appreciated, crepitus, is not appreciated. 15:15 Chest/axilla: Inspection: normal, Palpation: crepitus, is not appreciated, tenderness, that is mild, of the left lower lateral chest wall. 15:15 Cardiovascular: Rate: normal, Rhythm: regular. 15:15 Respiratory: the patient does not display signs of respiratory distress, Respirations: normal, no use of accessory muscles, no retractions, labored breathing, is not present, Breath sounds: are clear throughout, no decreased breath sounds, no stridor, no wheezing. 15:15 Abdomen/GI: Inspection: abdomen appears normal, Palpation: abdomen is soft and non-tender, in all quadrants. 15:15 Back: vertebral tenderness, is not appreciated. 15:15 Musculoskeletal/extremity: Extremities: grossly normal except: noted in the anterior aspect left knee: abrasion, swelling, tenderness, Weight bearing: able to fully bear weight. 15:15 Neuro: Orientation: to person, place \T\ time. Mentation: able to follow commands, Motor: moves all fours, strength is normal. 15:19 ECG was reviewed by the Attending Physician. cp Vital Signs: 13:40 BP 136 / 86; Pulse 77; Resp 16; Temp 97.4; Pulse Ox 100% on R/A; Pain 4/10; hb 17:49 BP 131 / 81; Pulse 71; Resp 17; Pulse Ox 100% on R/A; ll1 Donald Coma Score: 14:40 Eye Response: spontaneous(4). Verbal Response: oriented(5). Motor Response: obeys ll1 commands(6). Total: 15. Trauma Score (Adult): 14:40 Eye Response: spontaneous(1); Verbal Response: oriented(1); Motor Response: obeys ll1 commands(2); Systolic BP: > 89 mm Hg(4); Respiratory Rate: 10 to 29 per min(4); Donald Score: 15; Trauma Score: 12 MDM: 14:40 Patient medically screened. cp 15:15 Differential diagnosis: closed head injury, contusion, fracture, laceration, multiple cp trauma. 16:30 Data reviewed: vital signs, nurses notes, lab test result(s), EKG, radiologic studies, cp CT scan, plain films, and as a result, I will discharge patient. 16:30 Test interpretation: by ED physician or midlevel provider: ECG, plain radiologic cp studies. 01/18 15:03 Order name: Acetaminophen cp 01/18 15:03 Order name: Basic Metabolic Panel cp 01/18 15:03 Order name: CBC with Diff cp 01/18 15:03 Order name: ETOH Level cp 01/18 15:03 Order name: Hepatic Function; Complete Time: 16:12 cp 01/18 16:29 Interpretation: Reviewed. cp 01/18 15:03 Order name: PT-INR; Complete Time: 16:12 cp 01/18 15:03 Order name: Ptt, Activated; Complete Time: 16:12 cp 01/18 15:03 Order name: Salicylate; Complete Time: 16:17 cp 01/18 15:03 Order name: Urine Drug Screen; Complete Time: 16:12 cp 01/18 15:03 Order name: CK; Complete Time: 16:12 cp 01/18 15:03 Order name: Acetaminophen Level; Complete Time: 16:12 EDMS 01/18 15:03 Order name: Basic Metabolic Panel; Complete Time: 16:12 EDMS 01/18 16:17 Interpretation: Normal except: NA 133; GFR 76; CA 8.1. cp 01/18 15:03 Order name: CBC with Automated Diff EDMS 01/18 16:17 Interpretation: Normal except: RBC 3.85; HCT 35.0; MPV 6.6; MN% 16.8. cp 01/18 15:03 Order name: Alcohol Serum/Plasma; Complete Time: 16:12 EDMS 01/18 16:12 Interpretation: Normal except: ETOH 83. cp 01/18 13:45 Order name: CT Head Brain wo Cont; Complete Time: 14:39 hb 01/18 14:40 Interpretation: Report reviewed. cp 01/18 15:03 Order name: EKG; Complete Time: 15:03 cp 01/18 15:03 Order name: EKG - Nurse/Tech; Complete Time: 15:05 cp 01/18 15:03 Order name: IV Saline Lock; Complete Time: 15:06 cp 01/18 15:03 Order name: Labs collected and sent; Complete Time: 15:06 cp 01/18 15:03 Order name: Suicide Screening ([place]); Complete Time: 15:47 cp 01/18 15:03 Order name: Urine Dipstick-Ancillary (obtain specimen); Complete Time: 15:48 cp 01/18 15:05 Order name: XRAY Knee LEFT 3 view; Complete Time: 16:12 cp 01/18 16:17 Interpretation: Reviewed. 01/18 15:05 Order name: XRAY Chest (1 view); Complete Time: 16:12 cp 01/18 15:16 Order name: Urine Dipstick-Ancillary EDMS 01/18 15:46 Order name: Manual Differential EDMS 01/18 16:30 Order name: Wound dressing; Complete Time: 17:43 cp EC:19 Rate is 71 beats/min. Rhythm is regular. NH interval is normal. QRS interval is normal. cp QT interval is normal. T waves are Inverted in lead III. Interpreted by me. Reviewed by me. Administered Medications: 15:56 Drug: Banana Bag - (NS 0.9% 1000 ml, foLIC Acid 1 mg, Thiamine 100 mg, Multivitamin 1 ll1 amp) Route: IV; Rate: 500 ml/hr; Site: left forearm; 17:43 Follow up: IV Status: Completed infusion; IV Intake: 950ml ll1 16:45 Drug: Tylenol 1000 mg Route: PO; ll1 17:43 Follow up: Response: No adverse reaction; RASS: Alert and Calm (0) ll1 Disposition: 17:00 Chart complete. cp 18:00 Co-signature as Attending Physician, Dudley Cruz MD. rn Disposition: 01/18/21 16:31 Discharged to Home. Impression: Alcohol abuse with intoxication, Contusion of other part of head - forehead, Contusion of left knee. - Condition is Stable. - Discharge Instructions: Alcohol Intoxication, Contusion, Alcohol Abuse and Nutrition. - Medication Reconciliation Form, Thank You Letter, Antibiotic Education, Prescription Opioid Use form. - Follow up: Private Physician; When: 2 - 3 days; Reason: Recheck today's complaints. - Problem is new. - Symptoms have improved. Signatures: Dispatcher [employer] EDMD Dudley Cruz MD MD rn Page, Corey, PA PA cp Baxter, Heather, RN RN hb Lewis, Lynsay, RN RN ll1 Corrections: (The following items were deleted from the chart) 16:17 16:12 Normal except: NA 133; GFR 76. cp cp 17:56 16:31 01/18/2021 16:31 Discharged to Home. Impression: Alcohol abuse with intoxication; ll1 Contusion of other part of head - forehead; Contusion of left knee. Condition is Stable. Forms are Medication Reconciliation Form, Thank You Letter, Antibiotic Education, Prescription Opioid Use. Follow up: Private Physician; When: 2 - 3 days; Reason: Recheck today's complaints. Problem is new. Symptoms have improved. cp
--- NOTE | 2021-01-18 16:31 | ER ---
Nurse's Notes [facility] Name: Lizbet Solares Age: 55 yrs Sex: Female : 1965 Arrival Date: 01/18/2021 Time: 13:16 Bed 15 Private MD: Diagnosis: Alcohol abuse with intoxication;Contusion of other part of head-forehead;Contusion of left knee Presentation: 01/18 13:40 Chief complaint: "[place] was at the park and I went to throw trash away in the dumpster and hb the next thing I remember is being on the ground surrounded by people." Reports headache, pain in left knee and left side of face. Coronavirus screen: At this time, the client does not indicate any symptoms associated with coronavirus-19. Ebola Screen: No symptoms or risks identified at this time. Initial Sepsis Screen: Does the patient meet any 2 criteria? No. Patient's initial sepsis screen is negative. Does the patient have a suspected source of infection? No. Patient's initial sepsis screen is negative. Risk Assessment: Do you want to hurt yourself or someone else? Patient reports no desire to harm self or others. Onset of symptoms was January 18, 2021. 13:40 Method Of Arrival: Ambulatory hb 13:40 Acuity: NAFISA 3 hb 17:52 Care prior to arrival: None. Mechanism of Injury: Fall from standing position. Trauma ll1 event details: Injury occurred in the [facility]. Trauma Activation: Not Applicable Physician: ED Physician; Name: ; Notified At: ; Arrived At: Physician: General Surgeon; Name: ; Notified At: ; Arrived At: Physician: Radiology; Name: ; Notified At: ; Arrived At: Physician: Respiratory; Name: ; Notified At: ; Arrived At: Physician: Lab; Name: ; Notified At: ; Arrived At: Historical: - Allergies: 13:42 No Known Allergies; hb - PMHx: 13:42 Anxiety; Depression; Hypertension; hb - PSHx: 13:42 Hysterectomy; hb - Immunization history:: Adult Immunizations up to date, Last tetanus immunization: up to date. - Social history:: Smoking status: Patient denies any tobacco usage or history of. Screenin:39 Abuse screen: Denies threats or abuse. Nutritional screening: No deficits noted. ll1 Tuberculosis screening: No symptoms or risk factors identified. Fall Risk Fall in past 12 months (25 points). Gait- Impaired (20 pts.). Total Calles Fall Scale indicates High Risk Score (45 or more points). Fall prevention measures have been instituted. Side Rails Up X 2 Placed Close to Nursing Station Frequent Obs/Assessments Occuring Family Present and informed to notify staff if the need to leave the bedside As available patient and family educated on Fall Prevention Program and Strategies. Primary Survey: 14:39 NO uncontrolled hemorrhage observed. A: The patient is alert. Airway: patent. ll1 Breathing/Chest: Respiratory pattern: regular, Respiratory effort: spontaneous, unlabored, Breath sounds: clear, bilaterally. Chest inspection: symmetrical rise and fall of the chest. Circulation: Pulses: palpable right radial artery and left radial artery. Skin color: pink. Disability Alert. Exposure/Environment: There is no evidence of uncontrolled external bleeding. A warming method has been applied: A warm blanket has been provided to the patient. 17:51 Reassessment Breathing/Chest Respiratory pattern Regular Respiratory effort Spontaneous ll1 Unlabored Breath sounds Clear Chest inspection Symmetrical. Assessment: 14:40 General: Appears uncomfortable, Behavior is calm, cooperative, appropriate for age. ll1 Pain: Complains of pain in head Quality of pain is described as aching, Aggravated by touch. Neuro: Level of Consciousness is awake, alert, obeys commands, Oriented to person, place, time, situation, Appropriate for age Material Handling Supervisor are equal bilaterally Moves all extremities. Full function Gait is steady, Speech is normal, Facial symmetry appears normal, Reports headache. Cardiovascular: No deficits noted. Respiratory: No deficits noted. Derm: Skin is pink, warm \\T\\ dry. Skin temperature is warm Reports pain. Musculoskeletal: Circulation, motion, and sensation intact. Capillary refill < 3 seconds, Range of motion: intact in all extremities, Swelling present in L forehead Tenderness present in L forehead. Injury Description: Head injury Bruise. 15:40 Reassessment: No changes from previously documented assessment. Patient and/or family ll1 updated on plan of care and expected duration. Pain level reassessed. Patient is alert, oriented x 3, equal unlabored respirations, skin warm/dry/pink. 16:40 Reassessment: No changes from previously documented assessment. Patient and/or family ll1 updated on plan of care and expected duration. Pain level reassessed. 17:40 Reassessment: No changes from previously documented assessment. Patient and/or family ll1 updated on plan of care and expected duration. Pain level reassessed. Patient is alert, oriented x 3, equal unlabored respirations, skin warm/dry/pink. Vital Signs: 13:40 BP 136 / 86; Pulse 77; Resp 16; Temp 97.4; Pulse Ox 100% on R/A; Pain 4/10; hb 17:49 BP 131 / 81; Pulse 71; Resp 17; Pulse Ox 100% on R/A; ll1 Aiyana Coma Score: 14:40 Eye Response: spontaneous(4). Verbal Response: oriented(5). Motor Response: obeys ll1 commands(6). Total: 15. Trauma Score (Adult): 14:40 Eye Response: spontaneous(1); Verbal Response: oriented(1); Motor Response: obeys ll1 commands(2); Systolic BP: > 89 mm Hg(4); Respiratory Rate: 10 to 29 per min(4); Aiyana Score: 15; Trauma Score: 12 ED Course: 13:16 Patient arrived in ED. ds1 13:42 Triage completed. hb 13:42 Arm band placed on. hb 14:09 CT Head Brain wo Cont In Process Unspecified. EDMS 14:30 Patient maintains SpO2 saturation greater than 95% on room air. Thermoregulation: warm ll1 blanket given to patient. 14:36 Ludwin Calvert PA is PHCP. cp 14:36 Dudley Cruz MD is Attending Physician. cp 14:38 Coco Monk, EVER is Primary Nurse. ll1 14:38 Patient placed in an exam room, on a stretcher. ll1 14:40 Patient has correct armband on for positive identification. Bed in low position. Call ll1 light in reach. Side rails up X 1. Cardiac monitoring not applicable on this patient. 15:30 Inserted saline lock: 22 gauge in left antecubital area, using aseptic technique. Blood ll1 collected. 15:51 XRAY Knee LEFT 3 view In Process Unspecified. EDMS 15:51 XRAY Chest (1 view) In Process Unspecified. EDMS 16:15 Wound care: to abrasion, located on L forehead and L knee was cleaned with Hibiclens, ll1 Patient tolerated well. 17:35 Dressings: Band aid triple antibiotic applied. ll1 17:43 IV discontinued, intact, bleeding controlled, No redness/swelling at site. Pressure ll1 dressing applied. 17:50 No provider procedures requiring assistance completed. ll1 Administered Medications: 15:56 Drug: Banana Bag - (NS 0.9% 1000 ml, foLIC Acid 1 mg, Thiamine 100 mg, Multivitamin 1 ll1 amp) Route: IV; Rate: 500 ml/hr; Site: left forearm; 17:43 Follow up: IV Status: Completed infusion; IV Intake: 950ml ll1 16:45 Drug: Tylenol 1000 mg Route: PO; ll1 17:43 Follow up: Response: No adverse reaction; RASS: Alert and Calm (0) ll1 Intake: 17:43 IV: 950ml; Total: 950ml. ll1 17:55 PO: 100ml; Total: 1050ml. ll1 Output: 17:55 Urine: 200ml; Total: 200ml. ll1 Outcome: 16:31 Discharge ordered by MD. sivakumar 17:54 Discharged to home ambulatory. ll1 17:54 Condition: stable 17:54 Discharge instructions given to patient, family, Instructed on discharge instructions, follow up and referral plans. wound care, Demonstrated understanding of instructions, follow-up care, wound care. 17:55 Patient's length of stay in the Emergency Department was greater than 2 hours. IV ll1 fluidsPatient's length of stay extended due to 17:56 Patient left the ED. ll1 Signatures: Dispatcher [employer] [facility] Alee Field ds1 Ludwin Calvert PA PA cp Baxter, Heather, RN RN hb Lewis, Lynsay, RN RN ll1
[2021-01-18 16:33] LABS: Blood Morphology Comment NOT SEEN (NOT SEEN); Platelet Estimate ADEQ
[2021-01-18] MEDS ORDERED: ACETAMINOPHEN 500 MG TAB ONE (17:00)
[2021-01-18 23:22] VITALS: BP 136/86; TEMP 97.4; O2SAT 100
[2021-01-19] MEDS ORDERED: FOLIC ACID 1 MG, MULTIVITAMINS INJ 10 ML, THIAMINE HCL 100 MG in NA CHLORIDE 0.9% 1,000 ML IV SCH (09:00)
--- NOTE | 2021-01-20 07:18 | EKG ---
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
== END 2021-01-18 17:56 | disposition home or self-care (01) ==
LOC: ER 13:14
DX: S00.83XA Contusion of other part of head, initial encounter (principal); S80.02XA Contusion of left knee, initial encounter; S00.81XA Abrasion of other part of head, initial encounter; S80.212A Abrasion, left knee, initial encounter; F10.129 Alcohol abuse with intoxication, unspecified; F41.9 Anxiety disorder, unspecified; F32.9 Major depressive disorder, single episode, unspecified; I10 Essential (primary) hypertension; W19.XXXA Unspecified fall, initial encounter; Y90.4 Blood alcohol level of 80-99 mg/100 ml
CPT/HCPCS: 85025; 80048; 36415; 80320; 82550; 80329 ×2; 85610; 80076; 80307 ×8; 85730; 81003; 70450; 71045; 73562; J3411; J7030; 93005; 96365; 96366; 99284

== ENCOUNTER 2021-11-24 06:29 | Day surgery (SDC) | payer BC ==
[2021-11-21 11:37] LABS: Absolute Lymphocytes (CBC) 1.3 K/uL (0.7-4.9); Hematocrit 42.1 % (36.0-45.0); Lymphocytes % 21.4 % (15.3-44.8); MPV 6.6 fL (7.6-11.3)
[2021-11-21 12:03] LABS: Potassium 4.1 mmol/L (3.5-5.1)
[2021-11-24] MEDS ORDERED: Ringers Lactate 1,000 ML IV ONE ×2 (06:49→10:02)
[2021-11-24] MEDS ORDERED: CEFAZOLIN/SWI 2gm 2 GM/20 ML SYR ONE (06:52)
[2021-11-24] MEDS ORDERED: propofoL 200 MG/20 ML VIAL IV ONE (06:56)
[2021-11-24] MEDS ORDERED: LIDOCAINE 2% MPF 5 ML VIAL ONE (06:57)
[2021-11-24] MEDS ORDERED: GLYCOPYRROLATE 0.2 MG/ML SYR ONE (06:57)
[2021-11-24] MEDS ORDERED: ROCURONIUM 50 MG/5 ML VIAL IV ONE ×2 (06:57→09:57)
[2021-11-24] MEDS ORDERED: MIDAZOLAM HCL 2 MG/2 ML INJ ONE (06:57)
[2021-11-24] MEDS ORDERED: ONDANSETRON 4 MG/2 ML VIAL ONE (07:05)
[2021-11-24] MEDS ORDERED: FENTANYL CITR 100 MCG/2 ML ONE ×2 (07:06→09:38)
[2021-11-24] MEDS ORDERED: CELECOXIB 100 MG CAPSULE ONE (07:09)
[2021-11-24] MEDS ORDERED: ACETAMINOPHEN 500 MG TAB ONE (07:09)
[2021-11-24] MEDS: THROMBIN 5000 UNITS/VIAL TOP ONE ×2 (08:37→09:50)
[2021-11-24] MEDS ORDERED: dexAMETHasone 10 MG/ML VIAL ONE (09:31)
[2021-11-24] MEDS ORDERED: KETOROLAC 30 MG/ML INJ ONE (09:31)
[2021-11-24] MEDS ORDERED: BUPIVACAINE 0.25% PF 10 ML VIAL ONE (09:43)
[2021-11-24] MEDS ORDERED: EPHEDRINE SULF 50 MG/ML VIAL ONE (09:53)
[2021-11-24] MEDS: HYDROMORPHONE HCL 1 MG/ML INJ ONE ×3 (11:10→11:21)
[2021-11-24] MEDS ORDERED: HYDROMORPHONE HCL 1 MG/ML INJ ONE (11:35)
--- NOTE | 2021-11-24 11:52 | RAD REPORT ---
EXAM DESCRIPTION: RAD - Fluoroscopy <1 Hour - 11/24/2021 10:54 am CLINICAL HISTORY: L5-S1 DECOMPRESSION COMPARISON: No comparisons FINDINGS/IMPRESSION: Five intraoperative fluoroscopic images were submitted for localization of the L5-S1 level prior to decompression. Dose: 7.35 mGy Fluoro time: 0 minutes
[2021-11-24] MEDS ORDERED: HYDROCODONE/APAP 5/325 MG TAB ONE (12:32)
[2021-11-24 13:32] VITALS: BP 126/68; TEMP 97.1; O2SAT 100
== END 2021-11-24 13:17 | disposition home or self-care (01) ==
LOC: OR 06:29
PROVIDERS: ATTEND Orthopaedic Surgery
PROC: BR19ZZZ Fluoroscopy of Lumbar Spine (ICD-10-PCS; 2021-11-24)
PROC: 01NB3ZZ Release Lumbar Nerve, Percutaneous Approach (ICD-10-PCS; principal; 2021-11-24 07:30)
DX: M48.061 Spinal stenosis, lumbar region without neurogenic claudication (principal); Z20.822 Contact with and (suspected) exposure to COVID-19
CPT/HCPCS: 93005; 85025; 80048; 36415; 76000; 0275T; U0003; J2704; J2250; J3010 ×2; J1100; J1170 ×2; J0690; J7120 ×2; J2405

== ENCOUNTER 2021-12-30 20:42 | Emergency (ER) | payer BC ==
--- OUTSIDE RECORDS SUMMARY | 2021-12-30 20:46 | XMS REPORT | Continuity of Care Document ---
:1965 Author Organization [facility] t Address [address] [place] [address] Care Team Providers Name Role Phone Ruperto DONATO, Amy Primary Care Physician Ella HOLT Attending Clinician Unavailable Yanet LAM, Ella Attending Clinician Doctor Unassigned, Name Attending Clinician Unavailable Tanja DONATO T Attending Clinician NaimaPamela Russell Attending Clinician Only, Test Attending Clinician Unavailable Paz ALMAGUER Attending Clinician Unavailable VALERIE GARRETT Admitting Clinician Unavailable Payers Payer Name Policy Type Policy Number Effective Date Expiration Date S leticia DEL RIO BCBS BLUE [id number] 2019 ADVANTAGE O 00:00:00 Advance Directives Directive Decision Effective Termination Comments Source Date Date Healthcare Agents on N/A Univ ersity FileNameRelationshipHealthcare [place] [facility] Agent Medical RelationshipCommunication[facility] OrandMotherHealth Care [phone] (Home) Problems Condition Condition Condition Status Onset Resolution Last Treating Co mments Source Name Details Category Date Date Treatment Clinician Date Abnormal Abnormal Disease Active Unive rs liver liver 1- [place] [facility] Severe Severe Disease Active Univers obstructiv obstructiv 1-26 it y of e sleep e sleep 00:00: [place] apnea apnea 00 Medical Branch Prediabete Prediabete Disease Active U nivers s s 1-19 ity of 00:00: Medical Branch Mixed Mixed Disease Active Univers hyperlipid hyperlipid 1-19 it y of emia emia 00:00: Medical Branch Abnormal Abnormal Disease Active Unive rs LFTs LFTs 1-19 ity of 00:00: Medical Branch GERD GERD Disease Active Univers (gastroeso (gastroeso 1-17 it y of phageal phageal 00:00: reflux reflux Medical disease) disease) Branch Mitral Mitral Disease Active Univers valve valve 1-17 ity of prolapse prolapse 00:00: Medical Branch Anxiety Anxiety Disease Active Univers 1-17 ity of 00:00: Medical Branch Pernicious Pernicious Disease Active U nivers anemia anemia 1-17 ity of 00:00: Medical Branch Morbid Morbid Disease Active Univers obesity obesity 1-17 [place] of with body [place] mass index mass index 00 Me dical (BMI) of (BMI) of Branch 40.0 or 40.0 or higher higher Major Major Disease Active Univers depressive depressive 6-27 it y of disorder disorder 00:00: Medical Branch Alcohol Alcohol Disease Active Univers abuse abuse 2-06 ity of 00:00: Medical Branch Unspecifie Unspecifie Disease Active Overview : Univers d d 5-24 Formattin ity of hypothyroi hypothyroi 00:00: g of this [place] dism dism note Medical might be Branch different from the original. Last Assessmen t & Plan: Formattin g of this note might be different from the original. Patient followed by endocrine , some labs ordered recently but not done. Allergies, Adverse Reactions, Alerts Allergy Allergy Status Severity Reaction(s) Onset Inactive Treating Comm ents Source Name Type Date Date Clinician NO KNOWN Drug Active Univers ALLERGIE Class ity of S [facility] Branch NO KNOWN Allergy Active [facility] ALLERGIE S Social History Social Habit Start Date Stop Date Quantity Comments Source Exposure to Unable to assess Univers ity of SARS-CoV-2 [place] [facility] (event) Branch History [facility] University o f Alcohol Frequency [facility] edical Branch History [facility] o f Alcohol Std [place] [facility] Drinks Branch History [facility] o f Alcohol Binge [facility] [place] Alcohol intake 2021-11-12 2021-11-12 Ex-drinker University 00:00:00 00:00:00 (finding) [facility] Tobacco use and 2021-10-21 2021-10-21 Never used Universit y of exposure 00:00:00 00:00:00 [facility] Alcohol Comment 2021-10-21 2021-10-21 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 Clinician (SIG) Name Name HYDROcodone 2021- No 1{tbl} 1 tablet, Univers -acetaminop 3-21 12-29 Oral, ity of hen (NORCO) 22:15: 21:03 [place]CE[place] 1 [place] 10-325 mg 00 :00 dose, On Medica l tablet 1 Mon Branch tablet 12/29/21 at 1715, Routine HYDROcodone 2021- No 1{tbl} 1 tablet, Univers -acetaminop 3-21 - Oral, ity of hen (NORCO) 22:15: 21:03 [place]CE[place] 1 [place] 10-325 mg 00 :00 dose, On Medica l tablet 1 Mon Branch tablet 12/29/21 at 1715, Routine ARIPiprazol Yes 5mg Take 5 mg U nivers e (ABILIFY) 2-02 by mouth ity of 5 mg tablet 14:14: daily. [address] ARIPiprazol Yes 5mg Take 5 mg U nivers e (ABILIFY) 2-02 by mouth ity of 5 mg tablet 14:14: daily. [address] ARIPiprazol Yes 5mg Take 5 mg U nivers e (ABILIFY) 2-02 by mouth ity of 5 mg tablet 14:14: daily. [address] ARIPiprazol 0 Yes 5mg Take 5 mg U nivers e (ABILIFY) 2-02 by mouth ity of 5 mg tablet 14:14: daily. [address] ARIPiprazol 0 Yes 5mg Take 5 mg U nivers e (ABILIFY) 2-02 by mouth ity of 5 mg tablet 14:14: daily. [address] omeprazole 0 Yes [id number] 20mg Take 1 Univers 20 mg 1-11 capsule by ity of capsule 00:00: mouth [place] 00 daily. Medical Branch liothyronin Yes [id number] 5ug Take 1 Univers e 5 mcg 1-11 tablet by ity of tablet 00:00: mouth 2 [place] 00 (two) Medical times Branch daily. SYNTHROID Yes [id number] 75ug Take 1 U nivers 75 mcg 1-11 tablet by ity of tablet 00:00: mouth [place] 00 every Medical morning. Branch BRAND MEDICALLY NECESSARY metoprolol Yes [id number] 100mg Take 1 Univers succinate 1-11 tablet by ity o f XL 100 mg 00:00: mouth [place] 24 hr 00 daily. Medical tablet Branch felodipine 0 Yes [id number] 5mg Take 1 U nivers 5 mg 24 hr 1-11 tablet by ity of tablet 00:00: mouth at [place] 00 bedtime. Medical Branch rosuvastati 0 Yes [id number] 20mg Take 1 Univers n 20 mg 1-11 tablet by ity of tablet 00:00: mouth at [place] 00 bedtime. Medical Branch omeprazole 0 Yes [id number] 20mg Take 1 Univers 20 mg 1-11 capsule by ity of capsule 00:00: mouth [place] 00 daily. Medical Branch liothyronin 0 Yes [id number] 5ug Take 1 Univers e 5 mcg 1-11 tablet by ity of tablet 00:00: mouth 2 [place] 00 (two) Medical times Branch daily. SYNTHROID 0 Yes [id number] 75ug Take 1 U nivers 75 mcg 1-11 tablet by ity of tablet 00:00: mouth [place] 00 every Medical morning. Branch BRAND MEDICALLY NECESSARY metoprolol 2021-0 Yes [id number] 100mg Take 1 Univers succinate 1-11 tablet by ity o f XL 100 mg 00:00: mouth [place] 24 hr 00 daily. Medical tablet Branch felodipine 0 Yes [id number] 5mg Take 1 U nivers 5 mg 24 hr 1-11 tablet by ity of tablet 00:00: mouth at [place] 00 bedtime. Medical Branch rosuvastati 0 Yes [id number] 20mg Take 1 Univers n 20 mg 1-11 tablet by ity of tablet 00:00: mouth at [place] 00 bedtime. Medical Branch omeprazole Yes [id number] 20mg Take 1 Univers 20 mg 1-11 capsule by ity of capsule 00:00: mouth [place] 00 daily. Medical Branch liothyronin Yes [id number] 5ug Take 1 Univers e 5 mcg 1-11 tablet by ity of tablet 00:00: mouth 2 (two) Medical times Branch daily. SYNTHROID 0 Yes [id number] 75ug Take 1 U nivers 75 mcg 1-11 tablet by ity of tablet 00:00: mouth [place] 00 every Medical morning. Branch BRAND MEDICALLY NECESSARY metoprolol 0 Yes [id number] 100mg Take 1 Univers succinate 1-11 tablet by ity o f XL 100 mg 00:00: mouth [place] 24 hr 00 daily. Medical tablet Branch felodipine 0 Yes [id number] 5mg Take 1 U nivers 5 mg 24 hr 1-11 tablet by ity of tablet 00:00: mouth at [place] 00 bedtime. Medical Branch rosuvastati 0 Yes [id number] 20mg Take 1 Univers n 20 mg 1-11 tablet by ity of tablet 00:00: mouth at [place] 00 bedtime. Medical Branch omeprazole 0 Yes [id number] 20mg Take 1 Univers 20 mg 1-11 capsule by ity of capsule 00:00: mouth [place] 00 daily. Medical Branch liothyronin 0 Yes [id number] 5ug Take 1 Univers e 5 mcg 1-11 tablet by ity of tablet 00:00: mouth 2 [place] 00 (two) Medical times Branch daily. SYNTHROID 2021-0 Yes [id number] 75ug Take 1 U nivers 75 mcg 1-11 tablet by ity of tablet 00:00: mouth [place] 00 every Medical morning. Branch BRAND MEDICALLY NECESSARY metoprolol Yes [id number] 100mg Take 1 Univers succinate 1-11 tablet by ity o f XL 100 mg 00:00: mouth [place] 24 hr 00 daily. Medical tablet Branch felodipine Yes [id number] 5mg Take 1 U nivers 5 mg 24 hr 1-11 tablet by ity of tablet 00:00: mouth at [place] [address] bedtime. Medical Branch rosuvastati Yes [id number] 20mg Take 1 Univers n 20 mg 1-11 tablet by ity of tablet 00:00: mouth at [place] [address] bedtime. Medical Branch omeprazole Yes [id number] 20mg Take 1 Univers 20 mg 1-11 capsule by ity of capsule 00:00: mouth [place] 00 daily. Medical Branch liothyronin Yes [id number] 5ug Take 1 Univers e 5 mcg 1-11 tablet by ity of tablet 00:00: mouth 2 [place] 00 (two) Medical times Branch daily. SYNTHROID Yes [id number] 75ug Take 1 U nivers 75 mcg 1-11 tablet by ity of tablet 00:00: mouth [place] 00 every Medical morning. Branch BRAND MEDICALLY NECESSARY metoprolol Yes [id number] 100mg Take 1 Univers succinate 1-11 tablet by ity o f XL 100 mg 00:00: mouth [place] 24 hr 00 daily. Medical tablet Branch felodipine Yes [id number] 5mg Take 1 U nivers 5 mg 24 hr 1-11 tablet by ity of tablet 00:00: mouth at [place] [address] bedtime. Medical Branch rosuvastati Yes [id number] 20mg Take 1 Univers n 20 mg 1-11 tablet by ity of tablet 00:00: mouth at [place] 00 bedtime. Medical Branch buPROPion Yes Univers XL 300 mg 5-21 ity of 24 hr 00:00: [place] tablet 00 Medical Branch buPROPion Yes Univers XL 300 mg 5-21 ity of 24 hr 00:00: [place] tablet 00 Medical Branch buPROPion Yes Univers XL 300 mg 5-21 ity of 24 hr 00:00: [place] tablet 00 Medical Branch buPROPion Yes Univers XL 300 mg 5-21 ity of 24 hr 00:00: [place] tablet 00 Medical Branch buPROPion 2020-0 Yes Univers XL 300 mg 5-21 ity of 24 hr 00:00: [place] tablet 00 Medical Branch escitalopra 2020-0 Yes 20mg Take 20 mg Univers m oxalate 3-27 by mouth ity of 20 mg 00:00: daily. [place] tablet 00 Medical Branch escitalopra 2020-0 Yes 20mg Take 20 mg Univers m oxalate 3-27 by mouth ity of 20 mg 00:00: daily. [place] tablet 00 Medical Branch escitalopra 2020-0 Yes 20mg Take 20 mg Univers m oxalate 3-27 by mouth ity of 20 mg 00:00: daily. [place] tablet 00 Medical Branch escitalopra 2020-0 Yes 20mg Take 20 mg Univers m oxalate 3-27 by mouth ity of 20 mg 00:00: daily. [place] tablet 00 Medical [place] escitalopra 2020-0 Yes 20mg Take 20 mg Univers m oxalate 3-27 by mouth ity of 20 mg 00:00: daily. [place] tablet 00 [facility] Branch Immunizations Ordered Filled Immunization Date Status Comments [facility] e Immunization Name Name SARS-COV-2 COVID-19 2021-10-21 Completed Unive rsity of MODERNA BOOSTER 00:00:00 [facility] VACCINE Branch SARS-COV-2 COVID-19 2021-10-21 Completed Unive rsity of MODERNA BOOSTER 00:00:00 [facility] VACCINE Branch SARS-COV-2 COVID-19 2021-10-21 Completed Unive rsity of MODERNA BOOSTER 00:00:00 [facility] VACCINE Branch SARS-COV-2 COVID-19 2021-10-21 Completed Unive rsity of MODERNA BOOSTER 00:00:00 [facility] VACCINE Branch SARS-COV-2 COVID-19 2021-10-21 Completed Unive rsity of MODERNA BOOSTER 00:00:00 [facility] VACCINE Branch SARS-COV-2 COVID-19 2021-01-15 Completed Unive rsity of MODERNA VACCINE 00:00:00 [facility] [place] [facility] SARS-COV-2 COVID-19 2021-01-15 Completed Unive rsity of MODERNA VACCINE 00:00:00 [facility] [place] [facility] SARS-COV-2 COVID-19 2021-01-15 Completed Unive rsity of MODERNA VACCINE 00:00:00 [facility] ical Branch SARS-COV-2 COVID-19 2021-01-15 Completed Unive rsity of MODERNA VACCINE 00:00:00 [facility] Branch SARS-COV-2 COVID-19 2021-01-15 Completed Unive rsity of MODERNA VACCINE 00:00:00 [facility] [place] [facility] SARS-COV-2 COVID-19 2020-12-18 Completed Unive rsity of MODERNA VACCINE 00:00:00 [facility] Branch SARS-COV-2 COVID-19 2020-12-18 Completed Unive rsity of MODERNA VACCINE 00:00:00 [facility] Branch SARS-COV-2 COVID-19 2020-12-18 Completed Unive rsity of MODERNA VACCINE 00:00:00 [facility] [place] [facility] SARS-COV-2 COVID-19 2020-12-18 Completed Unive rsity of MODERNA VACCINE 00:00:00 [facility] Branch SARS-COV-2 COVID-19 2020-12-18 Completed Unive rsity of MODERNA VACCINE 00:00:00 [facility] [place] [facility] Vital Signs Vital Name Observation Time Observation Value Comments Source Systolic blood 2021-12-29 19:52:00 139 mm[Hg] Univer sity of pressure [facility] Diastolic blood 2021-12-29 19:52:00 86 mm[Hg] Unive rsity of pressure [facility] Heart rate 2021-12-29 19:52:00 83 /min [facility] Body temperature 2021-12-29 19:52:00 36.67 Elvira [facility] Respiratory rate 2021-12-29 19:52:00 18 /min [facility] Body weight 2021-12-29 19:52:00 109.77 kg [facility] BMI 2021-12-29 19:52:00 40.27 kg/m2 [facility] Oxygen saturation in 2021-12-29 19:52:00 98 /min [facility] blood by [facility] Pulse oximetry Branch Procedures Procedure Date / Time Performing Clinician Source Performed XR ANKLE 3+ VW LEFT 2021-12-29 21:20:00 Faustino Holt [facility] DUPLEX VENOUS LEG LEFT - 2021-12-29 20:41:00 [facility] Branch CONSENT/REFUSAL FOR 2021-12-29 19:34:01 Doctor Pimentel [facility] DIAGNOSIS AND TREATMENT [place] [facility] [place] EXTERNAL PROVIDER RECORDS 2021-12-22 05:01:00 Doctor Pimentel [facility] [place] [facility] INSURANCE CORRESPONDENCE 2021-12-10 06:01:00 Doctor Pimentel [facility] [place] [facility] [place] Encounters Start End Encounter Admission Attending Care Care Encounter Source Date/Time Date/Time Type Type Clinicians Facility Department ID 2021-12-29 2021-12-29 Emergency X YANET [facility] ERT [id number] Univers 14:55:00 16:47:[address] [facility] 2021-12-29 2021-12-29 Emergency Yanet [facility] [id number] Univers 14:55:00 16:47:00 Faustino ALMAZAN [id number] i ty of [place] [id number] [facility] 084 Branch 2021-12-22 2021-12-22 Orders Doctor VANCE 1.2.840.114 [id number] Univers 00:00:00 00:00:00 Only Unassigned, [place] [id number] ity of [place] [facility] 4.2.7.2.686 Branden as [id number] [facility] 009 Branch 2021-12-10 2021-12-10 Orders Doctor VANCE [id number] Univers 00:00:00 00:00:00 Only Unassigned, [place] [id number] ity of [place] [facility] 4.2.7.2.686 Branden as [id number] [facility] 009 Branch 2021-12-01 2021-12-01 Telephone Tanja PAJUAN 1.2.840.114 [id number] Univers 00:00:00 00:00:00 Parminder ALMAZAN [id number] ity [facility] 4.2.7.2.[id number] dical NAL 085 [employer] 2020-10-01 2020-10-01 Emergency Zachary Mcnamara [facility] 1.2.840.114 [id number] 15:38:00 17:19:00 Pamela Almazan [id number] [place] 4.2.7.2.686 [place] [id number] 2020-10-01 2020-10-01 Orders Doctor PINKY [id number] 00:00:00 00:00:00 Only Unassigned, [place] [id number] [place] [facility] 4.2.7.2.686 [id number] 2020-04-23 2020-07-03 Laboratory Only, Web [place] 1.2.840.114 [id number] 09:22:46 08:51:45 Only Test Health [id number] Specialty 4.2.7.2.686 [facility] [id number] [place] [address] 2020-02-08 2020-02-08 Outpatient [facility] [id number] 2-2 [facility] 00:00:00 00:00:00 [id number] Results Test Description Test Time Test Comments Results Result [facility] e Comments US, THYROID 2020-02-08 Reason for FINAL REPORT PATIENT 14:13:00 Exam:->HX OF ID: [id number] PARTIAL Thyroid Ultrasound HYPROIDECTOY History: Partial thyroidectomy Comparison: none Findings:The right [...] thyroid nodule on this examination. Signed: Eduardo Princeeport Verified Date/Time: 02/08/2020 14:13:43 Reading Location: [facility] Diagnostic Imaging Reading Room - [place] [address] 1129 D CULTURE 2018-04-09 00:00:00 Test Item Value Reference Range Interpretation Comme nts CULTURE (BEAKER) (test code = 1095) No growth in 5 days BLOOD [id number] 00:00:00 Test Item Value Reference Range Interpretation Comments CULTURE (BEAKER) (test No growth in 5 days code = 1095) BASIC METABOLIC [id number] 11:06:00 Test Item Value Reference Range Interpretation [...] TO CALCULA TE ESTIMATED GFR. BASIC METABOLIC [id number] 07:36:00 Test Item Value Reference Range Interpretation [...] TO CALCULA TE ESTIMATED GFR. BASIC METABOLIC [id number] 19:50:00 Test Item Value Reference Range Interpretation [...] TO CALCULA TE ESTIMATED GFR. BASIC METABOLIC [id number] 08:59:00 Test Item Value Reference Range Interpretation [...] TO CALCULA TE ESTIMATED GFR. BASIC METABOLIC [id number] 01:18:00 Test Item Value Reference Range Interpretation [...] TO CALCULA TE ESTIMATED GFR. BASIC METABOLIC [id number] 16:32:00 Test Item Value Reference Range Interpretation [...] TO CALCULA TE ESTIMATED GFR. U/S, ABDOMINAL, [id number] 14:54:00Abdomen limited area? Add comment if clarification [...] Peters Verified Date/Time: 04/05/2018 14:54:01 Reading Location: [address] Ultrasound Reading Room HEPATIC FUNCTION [id number] 14:03:00 Test Item Value Reference Range Interpretation [...] = 21 U/L 6-55 347) BASIC METABOLIC [id number] 09:16:00 Test Item Value Reference Range Interpretation [...] ESTIMATED GFR. CBC W/PLT COUNT & AUTO [id number] 08:44:00 Test Item Value Reference Range Interpretation [...] (BEAKER) (test code = 2801) BASIC METABOLIC [id number] 01:06:00 Test Item Value Reference Range Interpretation [...] m DATA TO CALCULA TE ESTIMATED GFR. [id number] 18:02:00 Test Item Value Reference Range Interpretation Comments AMMONIA (BEAKER) (test code = 348) 35 mol/L 18-72 BASIC METABOLIC [id number] 17:31:00 Test Item Value Reference Range Interpretation [...] TO CALCULA TE ESTIMATED GFR. BASIC METABOLIC [id number] 09:29:00 Test Item Value Reference Range Interpretation [...] TO CALCULA TE ESTIMATED GFR. BLOOD GAS, [id number] 05:19:00 Test Item Value Reference Range Interpretation [...] C (test code = 1818) BASIC METABOLIC [id number] 03:52:00 Test Item Value Reference Range Interpretation [...] m DATA TO CALCULA TE ESTIMATED GFR. [id number] 03:48:00 Test Item Value Reference Range Interpretation Comments PHOSPHORUS (BEAKER) (test code = 3.6 mg/dL 2.3-4.7 604) [id number] 03:48:00 Test Item Value Reference Range Interpretation Comments MAGNESIUM (BEAKER) (test code = 2.1 mg/dL 1.6-2.6 627) LACTIC ACID, VENOUS, WHOLE [id number] 03:44:00 Test Item Value Reference Range Interpretation [...] WBC 0-0 (BEAKER) (test code = 413) [id number] 02:06:00 Test Item Value Reference Range Interpretation Comments CORTISOL, TOTAL (BEAKER) (test 17.8 ug/dL 3.7-19.4 code = 2755) TSH/FREE T4 IF [id number] 02:06:00 Test Item Value Reference Range Interpretation Comments THYROID STIMULATING HORMONE 1.09 uIU/mL 0.35-4.94 (BEAKER) (test code = 772) HIV-1 ANTIGEN WITH HIV-1/2 [id number] 00:06:00 Test Item Value Reference Range Interpretation Comments HIV-1 ANTIGEN WITH HIV 1\T\2 Nonreactive Nonreactive ANTIBODY (2) (BEAKER) (test code = 2586) BASIC METABOLIC [id number] 23:30:00 Test Item Value Reference Range Interpretation [...] ESTIMATED GFR. RAD, CHEST, 1 VIEW, NON [id number] 21:34:00Reason for exam:->ALTERED MENTAL STATUSReason for exam:->NEUROLOGIC [...] MDReport Verified Date/Time: 04/03/2018 21:34:48 Reading Location: [address] Reading Room OSMOLALITY, [id number] 21:10:00 Test Item Value Reference Range Interpretation Comments OSMOLALITY, SERUM (BEAKER) (test 236 mOsm/kg 275-295 L code = 615) RAPID DRUG SCREEN, [id number] 20:47:00 Test Item Value Reference Range Interpretation [...] situations. Chain of custody not maintained. Some tdpl-fru-aatdizr medications, as well as adulterants, may cause inaccurate results. Clinical correlation should be applied. A more comprehensive drug screen or confirmation of a detected drug may be performed upon request.[id number] 20:43:00 Test Item Value Reference Range Interpretation Comments PHOSPHORUS (BEAKER) (test code = 1.8 mg/dL 2.3-4.7 L 604) HEPATIC FUNCTION [id number] 20:43:00 Test Item Value Reference Range Interpretation [...] (test code = 22 U/L 6-55 347) [id number] 20:43:00 Test Item Value Reference Range Interpretation Comments LIPASE (BEAKER) (test code = 749) 21 U/L 8-78 CREATININE, RANDOM [id number] 20:40:00 Test Item Value Reference Range Interpretation Comments CREATININE URINE (BEAKER) (test 11.7 mg/dL code = 375) Reference Range: No NormalsSODIUM, RANDOM [id number] 20:40:00 Test Item Value Reference Range Interpretation Comments SODIUM URINE (BEAKER) (test code = 60 meq/L 243) Reference Range: No NormalsOSMOLALITY, [id number] 20:40:00 Test Item Value Reference Range Interpretation Comments OSMOLALITY URINE (BEAKER) (test 169 mOsm/kg 40-1400 code = 614) [id number] 20:37:00 Test Item Value Reference Range Interpretation Comments ETHANOL (BEAKER) (test code = 400) < mg/dL <=10 [id number] 20:35:00 Test Item Value Reference Range Interpretation Comments AMMONIA (BEAKER) (test code = 348) 33 mol/L 18-72 MR, MRA, BRAIN, WITHOUT [id number] 19:42:00FINAL REPORT MRA head and neck without contrast. CLINICAL HISTORY: Stroke. CO MPARISON: None. TECHNIQUE: Two- and three-dimensional [id number]-tg-ojwvvz MRA images of the intra- and extracranial [...] right common carotid artery (image 1). MRA [place]: There is no vessel occlusion, [...] Leela Ventura Verified Date/Time: 04/03/201819:42:20 Reading Location: [address] Transitional Reading Room MR, MRA, NECK, WITHOUT IV [id number] 19:42:00FINAL REPORT MRA head and neck without contrast. CLINICAL HISTORY: Stroke. COMPARISON: None. TECHNIQUE: Two- and three-dimensional fzpr-ph-urfcfk MRA images of the intra- and extracranial [...] right common carotid artery (image 1). MRA [place]: There is no vessel occlusion, [...] Leela Ventura Verified Date/Time: 04/03/201819:42:20 Reading Location: [address] Transitional Reading Room CREATINE KINASE (CK), TOTAL AND [id number] 19:36:00 Test Item Value Reference Range Interpretation Comments CREATINE KINASE TOTAL (BEAKER) 103 U/L 29-200 (test code = 380) CREATINE KINASE-MB (BEAKER) (test 2.5 ng/mL 0.0-6.6 code = 750) CREATINE KINASE-MB INDEX (BEAKER) 2.4 % (test code = 395) CK-MB Reference Range:<6.7 Normal6.7-10.0 Borderline>10.0 AbnormalTROPONIN [id number] 19:36:00 Test Item Value Reference Range Interpretation [...] neurological disease, and persistent tachyarrhythmia.MR, BRAIN, WITHOUT [id number] 19:34:00FINAL REPORT Exam: MRI brain without contrast. [...] Verified Date/Time: 04/03/2018 19:34:38 Reading Locat ion: [facility] B1 C013T Transitional Reading Room Electronically signed by: LEELA VENTURA MD 04/03/2018 07:34 PMB-TYPE NATRIURETIC FACTOR (BNP)2018-04-03 19:33:00 Test Item Value Reference Range Interpretation Comments B-TYPE NATRIURETIC PEPTIDE (BEAKER) 90 pg/mL 0-100 (test code = 700) URINALYSIS W/ [id number] 18:43:00 Test Item Value Reference Range Interpretation [...] 520) SOURCE(BEAKER) (test code = Urine, Gooden 9104) BASIC METABOLIC [id number] 18:32:00 Test Item Value Reference Range Interpretation [...] m DATA TO CALCULA TE ESTIMATED GFR. [id number] 18:28:00 Test Item Value Reference Range Interpretation Comments MAGNESIUM (BEAKER) (test code = 1.7 mg/dL 1.6-2.6 627) [id number] 18:02:00 Test Item Value Reference Range Interpretation [...] % 0-1 PERCENT (BEAKER) (test code = 2802) POCT-GLUCOSE [id number] 17:49:00 Test Item Value Reference Range Interpretation Comments POC-GLUCOSE METER 100 mg/dL 70-110 TESTED AT [facility] ([facility]) (test code = ALDA Kurtis [place] 1538) [address] CT, BRAIN/STROKE [id number] 17:45:00Reason for exam:->stroke protocolIs the patient ?->NoWhat [...] use of iterative reconstructive technique. FINDINGS: No evidence of acute intracranial hemorrhage, mass effect, cerebral [...] MDReport Verified Date/Time: 04/03/2018 17:45:48 Reading Location: [address] Reading Room
[2021-12-30] MEDS ORDERED: KETOROLAC 30 MG/ML INJ ONE (23:27)
--- NOTE | 2021-12-30 23:37 | ER ---
Nurse's Notes [facility] Name: Lizbet Solares Age: 56 yrs Sex: Female : 1965 Arrival Date: 12/30/2021 Time: 20:45 Bed 17 Private MD: Diagnosis: Pain in left hip Presentation: 12/30 20:50 Chief complaint: Patient states: "My left hip hurts really bad and my left foot is ab2 swelling. I also started wheezing, which is not normal for me.". Coronavirus screen: Vaccine status: Patient reports receiving the 2nd dose of the covid vaccine. Client denies travel out of the [place] in the last 14 days. At this time, the client does not indicate any symptoms associated with coronavirus-19. Ebola Screen: Patient negative for fever greater than or equal to 101.5 degrees Fahrenheit, and additional compatible Ebola Virus Disease symptoms Patient denies exposure to infectious person. Patient denies travel to an Ebola-affected area in the 21 days before illness onset. No symptoms or risks identified at this time. Initial Sepsis Screen: Does the patient meet any 2 criteria? No. Patient's initial sepsis screen is negative. Does the patient have a suspected source of infection? No. Patient's initial sepsis screen is negative. Risk Assessment: Do you want to hurt yourself or someone else? Patient reports no desire to harm self or others. Onset of symptoms is unknown. 20:50 Method Of Arrival: Ambulatory ab2 20:50 Acuity: NAFISA 3 ab2 Triage Assessment: 20:52 General: Appears in no apparent distress. comfortable, Behavior is calm, cooperative, ab2 appropriate for age. Pain: Complains of pain in left hip, left foot and left leg Pain currently is 10 out of 10 on a pain scale. Respiratory:. Musculoskeletal: Swelling present in left foot, left lateral ankle and lateral aspect of left foot Reports pain in left foot and left leg. Historical: - Allergies: 20:49 No Known Allergies; ab2 - PMHx: 20:49 Anxiety; Depression; Hypertension; ab2 - Immunization history:: Adult Immunizations up to date, Client reports receiving the 2nd dose of the Covid vaccine, Flu vaccine is not up to date. - Social history:: Smoking status: Patient denies any tobacco usage or history of. Screenin:20 Abuse screen: Denies threats or abuse. Denies injuries from another. Nutritional kd3 screening: No deficits noted. Tuberculosis screening: No symptoms or risk factors identified. Fall Risk Vital Signs: 20:50 BP 127 / 86; Pulse 96; Resp 17; Temp 97.0(TE); Pulse Ox 99% on R/A; Weight 99.79 kg; ab2 Height 5 ft. 5 in. (165.10 cm); Pain 10/10; 23:52 BP 118 / 84; Pulse 75; Resp 16; Pulse Ox 99% on R/A; kd3 20:50 Body Mass Index 36.61 (99.79 kg, 165.10 cm) ab2 ED Course: 20:45 Patient arrived in ED. ja2 20:52 Triage completed. ab2 20:53 Arm band placed on right wrist. ab2 21:08 Jeronimo Zhao PA is PHCP. jr8 21:08 Ludwin Royal MD is Attending Physician. jr8 21:53 Linnette Damian RN is Primary Nurse. kd3 22:20 Bed in low position. Call light in reach. kd3 22:40 XRAY Hip LEFT 2 view In Process Unspecified. EDMS 23:35 Torsten Thompson MD is Referral Physician. jr8 23:51 No provider procedures requiring assistance completed. Patient did not have IV access kd3 during this emergency room visit. Administered Medications: 23:30 Drug: Ketorolac 30 mg Route: IM; Site: left ventrogluteal; kd3 23:52 Follow up: Response: No adverse reaction kd3 Outcome: 23:36 Discharge ordered by . jr8 23:51 Discharged to home ambulatory. kd3 23:51 Condition: stable 23:51 Instructed on discharge instructions, follow up and referral plans. medication usage, Demonstrated understanding of instructions, follow-up care, medications, Prescriptions given X 2. 23:53 Patient left the ED. kd3 Signatures: Dispatcher [employer] EDMS Jeronimo Zhao PA PA jr8 Diane Zhou ja2 Linnette Damian, EVER RN kd3 Frank Mora ab2
--- NOTE | 2021-12-30 23:37 | EDPHYS ---
Physician Documentation [facility] Name: Lizbet Solares Age: 56 yrs Sex: Female : 1965 Arrival Date: 12/30/2021 Time: 20:45 Bed 17 Private MD: ED Physician Ludwin Royal HPI: 12/30 23:22 This 56 yrs old Female presents to ER via Ambulatory with complaints of Ankle Swelling, jr8 Feet Swelling, Hip Pain. 23:22 Modifying factors: The symptoms are alleviated by nothing, the symptoms are aggravated jr8 by any movement. Severity of symptoms: At their worst the symptoms were moderate, in the emergency department the symptoms are unchanged. The patient has not experienced similar symptoms in the past. The patient has been recently seen by a physician:. This is a 56-year-old female patient that presented to emergency room with complaints of left hip pain and bilateral lower extremity edema. Patient was seen at [facility] yesterday and had a Doppler of the left leg completed along with an x-ray of the foot. No deep vein thrombosis and no acute fracture or other osseous abnormality of the foot noted. Patient stated that she continues to have left hip pain with motion and with weightbearing. Denies any trauma recent or remote.. Historical: - Allergies: 20:49 No Known Allergies; ab2 - PMHx: 20:49 Anxiety; Depression; Hypertension; ab2 - Immunization history:: Adult Immunizations up to date, Client reports receiving the 2nd dose of the Covid vaccine, Flu vaccine is not up to date. - Social history:: Smoking status: Patient denies any tobacco usage or history of. ROS: 23:22 Eyes: Negative for injury, pain, redness, and discharge, ENT: Negative for injury, jr8 pain, and discharge, Neck: Negative for injury, pain, and swelling, Respiratory: Negative for shortness of breath, cough, wheezing, and pleuritic chest pain, Abdomen/GI: Negative for abdominal pain, nausea, vomiting, diarrhea, and constipation, Back: Negative for injury and pain, Skin: Negative for injury, rash, and discoloration, Neuro: Negative for headache, weakness, numbness, tingling, and seizure. 23:22 Cardiovascular: Positive for edema. 23:22 MS/extremity: Positive for pain, tenderness, of the left hip. Exam: 23:22 Constitutional: This is a well developed, well nourished patient who is awake, alert, jr8 and in no acute distress. Cardiovascular: Regular rate and rhythm with a normal S1 and S2. No gallops, murmurs, or rubs. Normal PMI, no JVD. No pulse deficits. Bilateral lower extremity pitting edema 1+. Respiratory: Lungs have equal breath sounds bilaterally, clear to auscultation and percussion. No rales, rhonchi or wheezes noted. No increased work of breathing, no retractions or nasal flaring. Abdomen/GI: Soft, non-tender, with normal bowel sounds. No distension or tympany. No guarding or rebound. No evidence of tenderness throughout. Back: No spinal tenderness. No costovertebral tenderness. Full range of motion. Skin: Warm, dry with normal turgor. Normal color with no rashes, no lesions, and no evidence of cellulitis. Neuro: Awake and alert, GCS 15, oriented to person, place, time, and situation. Cranial nerves II-XII grossly intact. Motor strength 5/5 in all extremities. Sensory grossly intact. 23:22 Musculoskeletal/extremity: Extremities: grossly normal except: noted in the left leg: Patient has no external signs of trauma to the affected extremity. 2+ femoral pulses bilaterally. 1+ dorsal podalic's pulses bilaterally. Normal sensation bilaterally. Patient has pain to left inguinal region without lymphadenopathy. Worse with internal rotation of the left hip. Remainder of extremities otherwise unremarkable, ROM: intact in all extremities, Circulation is intact in all extremities. Sensation intact. Vital Signs: 20:50 BP 127 / 86; Pulse 96; Resp 17; Temp 97.0(TE); Pulse Ox 99% on R/A; Weight 99.79 kg; ab2 Height 5 ft. 5 in. (165.10 cm); Pain 10/10; 23:52 BP 118 / 84; Pulse 75; Resp 16; Pulse Ox 99% on R/A; kd3 20:50 Body Mass Index 36.61 (99.79 kg, 165.10 cm) ab2 MDM: 21:08 Patient medically screened. jr8 23:34 Data reviewed: vital signs, nurses notes, radiologic studies, plain films. Data jr8 interpreted: Pulse oximetry: on room air is 99 %. Interpretation: normal. Counseling: I had a detailed discussion with the patient and/or guardian regarding: the historical points, exam findings, and any diagnostic results supporting the discharge/admit diagnosis, radiology results, the need for outpatient follow up, a orthopedic surgeon, to return to the emergency department if symptoms worsen or persist or if there are any questions or concerns that arise at home. ED course: Patient had no abdominal pain on physical exam. No acute vascular abnormality upon palpation and from results yesterday on her Doppler. Patient seems to have point specific tenderness to the actual true left hip with increased pain upon internal and external rotation. Likely that she has some mild arthritis or sprain to the left hip. We will put her on anti-inflammatories and have her follow-up in 1 week with orthopedics if she does not feel she is getting better. If she were to acutely worsen to come back for further imaging and reevaluation. Patient good with this at this time.. 12/30 21:52 Order name: XRAY Hip LEFT 2 view jr8 Administered Medications: 23:30 Drug: Ketorolac 30 mg Route: IM; Site: left ventrogluteal; kd3 23:52 Follow up: Response: No adverse reaction kd3 Disposition: 12/31 07:10 Co-signature as Attending Physician, Ludwin Royal MD I agree with the assessment and lena plan of care. Disposition Summary: 12/30/21 23:36 Discharge Ordered Location: Home [facility] Problem: new jr8 Symptoms: have improved jr8 Condition: Stable jr8 Diagnosis - Pain in left hip jr8 Followup: jr8 - With: Torsten Thompson MD - When: 1 week - Reason: If symptoms return, Recheck today's complaints, Continuance of care, Re-evaluation by your physician Discharge Instructions: - Discharge Summary Sheet jr8 - Arthritis jr8 - Hip Pain jr8 Forms: - Medication Reconciliation Form jr8 - Thank You Letter jr8 - Antibiotic Education jr8 - Prescription Opioid Use jr8 Prescriptions: - meloxicam 15 mg Oral tablet - take 1 tablet by ORAL route once daily for 7 days; 7 tablet; Refills: 0, jr8 Product Selection Permitted - Skelaxin 800 mg Oral Tablet - take 1 tablet by ORAL route every 8 hours As needed; 30 tablet; Refills: 0, jr8 Product Selection Permitted Signatures: Dispatcher [employer] Ludwin Eisenberg MD MD cha Roszak, Josh PA PA jr8 Linnette Damian, RN RN kd3 Frank Mora2
[2021-12-31 01:29] VITALS: TEMP 97; O2SAT 99
[2021-12-31 01:32] VITALS: BP 118/84
--- NOTE | 2021-12-31 13:41 | RAD REPORT ---
EXAM DESCRIPTION: Hip Left 2 View CLINICAL HISTORY: 56-year-old female with pain. COMPARISON: None. TECHNIQUE: Two views of the LEFT hip were obtained in AP and lateral projection. FINDINGS: There is no fracture or dislocation. The joint spaces are preserved. No soft tissue abnorm alities are seen. IMPRESSION: No acute radiographic abnormality. Electronically signed by: Rabia Lebron MD 12/30/2021 11:00 PM CDT Due to temporary technical issues with the PACS/Fluency reporting system, reports are being signed by the in house radiologist without review as a courtesy to ensure prompt reporting. The interpreting r adiologist is fully responsible for the content of the report.
== END 2021-12-30 23:53 | disposition home or self-care (01) ==
LOC: ER 20:42
DX: M25.552 Pain in left hip (principal); R60.9 Edema, unspecified; I10 Essential (primary) hypertension
CPT/HCPCS: 96372; 99283

== ENCOUNTER 2022-01-07 00:49 | Emergency (ER) | payer BC ==
--- OUTSIDE RECORDS SUMMARY | 2022-01-07 00:54 | XMS REPORT | Continuity of Care Document ---
:1965 Author Organization [facility] t Address [address] [place] [address] Care Team Providers Name Role Phone Amy MANUEL Primary Care Physician Unavailable Ella HOLT Attending Clinician Unavailable Ella Anthony Attending Clinician Amy Manuel MD Attending Clinician Doctor Unassigned, Name Attending Clinician Unavailable Edgar Agrawal MD Attending Clinician Pamela Munoz Attending Clinician Only, Test Attending Clinician Unavailable Paz ALMAGUER Attending Clinician Unavailable Ella HOLT Admitting Clinician Unavailable VALERIE GARRETT Admitting Clinician Unavailable Payers Payer Name Policy Type Policy Number Effective Date Expiration Date S ourradha HIM BCBS BLUE [id number] 2019 ADVANTAGE O 00:00:00 Advance Directives Directive Decision Effective Termination Comments Source Date Date Healthcare Agents on N/A Univ ersity [facility] Agent Medical RelationshipCommunicationOhio State [facility] Or[facility] Care [phone] (Home) Problems Condition Condition Condition Status Onset Resolution Last Treating Co mments Source Name Details Category Date Date Treatment Clinician Date Abnormal Abnormal Disease Active Unive rs liver liver 1-27 [place] Severe Severe Disease Active Univers obstructiv obstructiv 1-26 it y of e sleep e sleep 00:00: [place] apnea apnea 00 Medical Branch Prediabete Prediabete Disease Active U nivers s s 1-19 ity of 00:00: Medical Branch Mixed Mixed Disease Active Univers hyperlipid hyperlipid -19 it y of emia emia 00:00: Medical [...] Medical Branch Pernicious Pernicious Disease Active U kam anemia anemia 1-17 ity of 00:00: Medical [...] 00:00: g of this [place] dism dism 00 note Medical might be Branch different from [...] Active Univers ALLERGIE Class ity of S [facility] NO KNOWN Allergy Active [facility] ALLERGIE S Social History Social Habit Start Date Stop Date Quantity Comments Source Exposure to Unable to assess Univers ity of SARS-CoV-2 [place] [facility] (event) Branch History [facility] o f Alcohol Frequency [place] [facility] edical [facility] History [facility] o f Alcohol Std [place] [facility] Drinks Branch History [facility] o f Alcohol Binge [facility] Alcohol intake 2021-11-12 2021-11-12 Ex-drinker [facility] 00:00:00 00:00:00 (finding) [facility] Tobacco use and 2021-10-21 2021-10-21 Never used Universit y of exposure 00:00:00 00:00:00 [facility] Alcohol Comment 2021-10-21 2021-10-21 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 [address] ARIPiprazol Yes 5mg Take 5 mg U nivers e (ABILIFY) 2-02 by mouth ity of 5 mg tablet 14:14: daily. [address] ARIPiprazol Yes 5mg Take 5 mg U nivers e (ABILIFY) 2-02 by mouth ity of 5 mg tablet 14:14: daily. [address] ARIPiprazol 0 Yes 5mg Take 5 mg U nivers e (ABILIFY) 2-02 by mouth ity of 5 mg tablet 14:14: daily. [address] ARIPiprazol 0 Yes 5mg Take 5 mg U nivers e (ABILIFY) 2-02 by mouth ity of 5 mg tablet 14:14: daily. [address] ARIPiprazol Yes 5mg Take 5 mg U nivers e (ABILIFY) 2-02 by mouth ity of 5 mg tablet 14:14: daily. [address] omeprazole Yes [id number] 20mg Take 1 Univers 20 mg 1-11 capsule by ity of capsule 00:00: mouth [place] 00 daily. Medical Branch liothyronin Yes [id number] 5ug Take 1 Univers e 5 mcg 1-11 tablet by ity of tablet 00:00: mouth 2 [place] 00 (two) Medical times Branch daily. SYNTHROID Yes [id number] 75ug Take 1 U nivers 75 mcg 1-11 tablet by ity of tablet 00:00: mouth [place] 00 every Medical morning. Branch BRAND MEDICALLY NECESSARY metoprolol 0 Yes [id number] 100mg Take 1 Univers succinate 1-11 tablet by ity o f XL 100 mg 00:00: mouth [place] 24 hr 00 daily. Medical tablet Branch felodipine 0 Yes [id number] 5mg Take 1 U nivers 5 mg 24 hr 1-11 tablet by ity of tablet 00:00: mouth at [place] 00 bedtime. Medical Branch rosuvastati 0 Yes [id number] 20mg Take 1 Univers n 20 mg 1-11 tablet by ity of tablet 00:00: mouth at [place] 00 bedtime. Medical Branch omeprazole 0 Yes [id number] 20mg Take 1 Univers 20 mg 1-11 capsule by ity of capsule 00:00: mouth [place] 00 daily. Medical Branch liothyronin 0 Yes [id number] 5ug Take 1 Univers e 5 mcg 1-11 tablet by ity of tablet 00:00: mouth 2 [place] 00 (two) Medical times Branch daily. SYNTHROID 0 Yes [id number] 75ug Take 1 U nivers 75 mcg 1-11 tablet by ity of tablet 00:00: mouth [place] 00 every Medical morning. Branch BRAND MEDICALLY NECESSARY metoprolol 0 Yes [id number] 100mg Take 1 Univers succinate 1-11 tablet by ity o f XL 100 mg 00:00: mouth [place] 24 hr 00 daily. Medical tablet Branch felodipine Yes [id number] 5mg Take 1 U nivers 5 mg 24 hr 1-11 tablet by ity of tablet 00:00: mouth at [place] 00 bedtime. Medical Branch rosuvastati Yes [id number] 20mg Take 1 Univers n 20 mg 1-11 tablet by ity of tablet 00:00: mouth at [place] 00 bedtime. Medical Branch omeprazole Yes [id number] 20mg Take 1 Univers 20 mg 1-11 capsule by ity of capsule 00:00: mouth [place] 00 daily. Medical Branch liothyronin Yes [id number] 5ug Take 1 Univers e 5 mcg 1-11 tablet by ity of tablet 00:00: mouth 2 (two) Medical times Branch daily. SYNTHROID Yes [id number] 75ug Take 1 U nivers 75 mcg 1-11 tablet by ity of tablet 00:00: mouth [place] 00 every Medical morning. Branch BRAND MEDICALLY NECESSARY metoprolol 0 Yes [id number] 100mg Take 1 Univers succinate 1-11 tablet by ity o f XL 100 mg 00:00: mouth [place] 24 hr 00 daily. Medical tablet Branch felodipine Yes [id number] 5mg Take 1 U nivers 5 mg 24 hr 1-11 tablet by ity of tablet 00:00: mouth at [place] 00 bedtime. Medical Branch rosuvastati Yes [id number] 20mg Take 1 Univers n 20 mg 1-11 tablet by ity of tablet 00:00: mouth at [place] 00 bedtime. Medical Branch omeprazole 0 Yes [id number] 20mg Take 1 Univers 20 mg 1-11 capsule by ity of capsule 00:00: mouth [place] 00 daily. Medical Branch liothyronin 0 Yes [id number] 5ug Take 1 Univers e 5 mcg 1-11 tablet by ity of tablet 00:00: mouth 2 [place] 00 (two) Medical times Branch daily. SYNTHROID 2021-0 Yes [id number] 75ug Take 1 U nivers 75 mcg 1-11 tablet by ity of tablet 00:00: mouth [place] 00 every Medical morning. Branch BRAND MEDICALLY NECESSARY metoprolol 2021-0 Yes [id number] 100mg Take 1 Univers succinate 1-11 tablet by ity o f XL 100 mg 00:00: mouth [place] 24 hr 00 daily. Medical tablet Branch felodipine 2021-0 Yes [id number] 5mg Take 1 U nivers 5 mg 24 hr 1-11 tablet by ity of tablet 00:00: mouth at [place] 00 bedtime. Medical Branch rosuvastati 0 Yes [id number] 20mg Take 1 Univers n 20 mg 1-11 tablet by ity of tablet 00:00: mouth at [place] 00 bedtime. Medical Branch omeprazole 2021-0 Yes [id number] 20mg Take 1 Univers 20 mg 1-11 capsule by ity of capsule 00:00: mouth [place] 00 daily. Medical Branch liothyronin 0 Yes [id number] 5ug Take 1 Univers e 5 mcg 1-11 tablet by ity of tablet 00:00: mouth 2 [place] (two) Medical times Branch daily. SYNTHROID 2021-0 Yes [id number] 75ug Take 1 U nivers 75 mcg 1-11 tablet by ity of tablet 00:00: mouth [place] 00 every Medical morning. Branch BRAND MEDICALLY NECESSARY metoprolol 2021-0 Yes [id number] 100mg Take 1 Univers succinate 1-11 tablet by ity o f XL 100 mg 00:00: mouth [place] 24 hr 00 daily. Medical tablet Branch felodipine 2021-0 Yes [id number] 5mg Take 1 U nivers 5 mg 24 hr 1-11 tablet by ity of tablet 00:00: mouth at [place] 00 bedtime. Medical Branch rosuvastati 2021-0 Yes [id number] 20mg Take 1 Univers n 20 mg 1-11 tablet by ity of tablet 00:00: mouth at [place] 00 bedtime. Medical Branch omeprazole 2021-0 Yes [id number] 20mg Take 1 Univers 20 mg 1-11 capsule by ity of capsule 00:00: mouth [place] 00 daily. Medical Branch liothyronin Yes [id number] 5ug Take 1 Univers e 5 mcg 1-11 tablet by ity of tablet 00:00: mouth 2 [place] 00 (two) Medical times Branch daily. SYNTHROID Yes [id number] 75ug Take 1 U nivers 75 mcg 1-11 tablet by ity of tablet 00:00: mouth [place] 00 every Medical morning. Branch BRAND MEDICALLY NECESSARY metoprolol Yes [id number] 100mg Take 1 Univers succinate 1-11 tablet by ity o f XL 100 mg 00:00: mouth [place] 24 hr 00 daily. Medical tablet Branch felodipine Yes [id number] 5mg Take 1 U nivers 5 mg 24 hr 1-11 tablet by ity of tablet 00:00: mouth at [place] 00 bedtime. Medical Branch rosuvastati Yes [id number] 20mg Take 1 Univers n 20 mg 1-11 tablet by ity of tablet 00:00: mouth at [place] 00 bedtime. Medical Branch buPROPion 0 Yes Univers XL 300 mg 5-21 ity of 24 hr 00:00: [place] tablet 00 Medical Branch buPROPion 2019-0 Yes Univers XL 300 mg 5-21 ity of 24 hr 00:00: [place] tablet 00 Medical Branch buPROPion 2019-0 Yes Univers XL 300 mg 5-21 ity of 24 hr 00:00: [place] tablet 00 Medical Branch buPROPion Yes Univers XL 300 mg 5-21 ity of 24 hr 00:00: [place] tablet 00 Medical Branch buPROPion 2019-0 Yes Univers XL 300 mg 5-21 ity of 24 hr 00:00: [place] tablet 00 Medical Branch buPROPion 2019-0 Yes Univers XL 300 mg 5-21 ity of 24 hr 00:00: [place] tablet 00 Medical Branch escitalopra 2019-0 Yes 20mg Take 20 mg Univers m oxalate 3-27 by mouth ity of 20 mg 00:00: daily. [place] tablet 00 Medical Branch escitalopra 2019-0 Yes 20mg Take 20 mg Univers m oxalate 3-27 by mouth ity of 20 mg 00:00: daily. [place] tablet 00 Medical Branch escitalopra 2019-0 Yes 20mg Take 20 mg Univers m [...] 00:00: daily. [place] tablet 00 Medical Branch Immunizations Ordered Filled Immunization Date Status Comments [facility] e Immunization Name Name SARS-COV-2 COVID-19 2021-10-21 Completed Unive rsity of MODERNA BOOSTER 00:00:00 [place] [facility] ical VACCINE Branch SARS-COV-2 COVID-19 2021-10-21 Completed Unive rsity of MODERNA BOOSTER 00:00:00 [facility] ical VACCINE Branch SARS-COV-2 COVID-19 2021-10-21 Completed Unive rsity of MODERNA BOOSTER 00:00:00 [facility] ical VACCINE Branch SARS-COV-2 COVID-19 2021-10-21 Completed Unive rsity of MODERNA BOOSTER 00:00:00 [facility] ical VACCINE Branch SARS-COV-2 COVID-19 2021-10-21 Completed Unive rsity of MODERNA BOOSTER 00:00:00 [facility] ical VACCINE Branch SARS-COV-2 COVID-19 2021-10-21 Completed Unive rsity of MODERNA BOOSTER 00:00:00 [facility] ical VACCINE Branch SARS-COV-2 COVID-19 2021-01-15 Completed Unive rsity of MODERNA VACCINE 00:00:00 [facility] ical Branch SARS-COV-2 COVID-19 2021-01-15 Completed Unive rsity of MODERNA VACCINE 00:00:00 [facility] ical Branch SARS-COV-2 COVID-19 2021-01-15 Completed Unive rsity of MODERNA VACCINE 00:00:00 [facility] ical Branch SARS-COV-2 COVID-19 2021-01-15 Completed Unive rsity of MODERNA VACCINE 00:00:00 [facility] ical Branch SARS-COV-2 COVID-19 2021-01-15 Completed Unive rsity of MODERNA VACCINE 00:00:00 [facility] Branch SARS-COV-2 COVID-19 2021-01-15 Completed Unive rsity of MODERNA VACCINE 00:00:00 [facility] Branch SARS-COV-2 COVID-19 2020-12-18 Completed Unive rsity of MODERNA VACCINE 00:00:00 [facility] Branch SARS-COV-2 COVID-19 2020-12-18 Completed Unive rsity of MODERNA VACCINE 00:00:00 [facility] Branch SARS-COV-2 COVID-19 2020-12-18 Completed Unive rsity of MODERNA VACCINE 00:00:00 [facility] Branch SARS-COV-2 COVID-19 2020-12-18 Completed Unive rsity of MODERNA VACCINE 00:00:00 [facility] Branch SARS-COV-2 COVID-19 2020-12-18 Completed Unive rsity of MODERNA VACCINE 00:00:00 [facility] Branch SARS-COV-2 COVID-19 2020-12-18 Completed Unive rsity of MODERNA VACCINE 00:00:00 [facility] Vital Signs Vital Name Observation Time Observation Value Comments Source Systolic blood 2021-12-29 19:52:00 139 mm[Hg] Univer sity of pressure [facility] Diastolic blood 2021-12-29 19:52:00 86 mm[Hg] Unive rsity of pressure [facility] Heart rate 2021-12-29 19:52:00 83 /min [facility] Body temperature 2021-12-29 19:52:00 36.67 Elvira [facility] Res[facility] rate 2021-12-29 19:52:00 18 /min [facility] Body weight 2021-12-29 19:52:00 109.77 kg [facility] BMI 2021-12-29 19:52:00 40.27 kg/m2 [facility] Oxygen saturation in 2021-12-29 19:52:00 98 /min [facility] blood by [facility] Pulse oximetry Branch Procedures Procedure Date / Time Performing Clinician Source Performed XR ANKLE 3+ VW LEFT 2021-12-29 21:20:00 Faustino Holt [facility] DUPLEX VENOUS LEG LEFT - 2021-12-29 20:41:00 [facility] CONSENT/REFUSAL FOR 2021-12-29 19:34:01 Doctor Pimentel [facility] DIAGNOSIS AND TREATMENT [place] [facility] EXTERNAL PROVIDER RECORDS 2021-12-22 05:01:00 Doctor Pimentel [facility] [place] [facility] INSURANCE CORRESPONDENCE 2021-12-10 06:01:00 Doctor Pimentel [facility] [place] [facility] Encounters Start End Encounter Admission Attending Care Care Encounter Source Date/Time Date/Time Type Type Clinicians Facility Department ID 2021-12-29 2021-12-29 Emergency X YANET [facility] ERT [id number] [facility] 14:55:00 16:47:00 FAUSTINO leigh [facility] 2021-12-29 2021-12-29 Emergency Yanet [facility] [id number] [facility] 14:55:00 16:47:00 Faustino ALMAZAN [id number] i ty [facility] [id number] [place] [facility] [id number] [facility] 084 [facility] 2021-12-29 2021-12-29 Telephone Ruperto [facility] [id number] Univers 00:00:00 00:00:00 Wondiful A HEALTH [id number] ity of [place] 4.2.7.2.686 Branden as EL?BLEA [id number] [address] MEDICAL OFFICE BUILDING 2021-12-22 2021-12-22 Orders Doctor VANCE [id number] Univers 00:00:00 00:00:00 Only Unassigned, HUDSON [id number] ity of [place] [facility] 4.2.7.2.686 Branden as [phone] [facility] 009 Branch 2021-12-10 2021-12-10 Orders Doctor VANCE 1.2.840.114 [id number] Univers 00:00:00 00:00:00 Only Unassigned, HUDSON [id number] ity of [place] [facility] 4.2.7.2.686 Branden as [phone] [facility] 009 Branch 2021-12-01 2021-12-01 Telephone Tanja [facility] 1.2.840.114 [id number] Univers 00:00:00 00:00:00 Parminder Hernández HALEYJCARLOS [id number] ity of [place]7.2.686 [place] PROF[place] [phone] [place] dical NAL 085 [facility] 2020-10-01 2020-10-01 Emergency Zachary Mcnamara [facility] 1.2.840.114 [id number] 15:38:00 17:19:00 Pamela Almazan [id number] [place] 4.2.7.2.686 [place] [id number] 2020-10-01 2020-10-01 Orders Doctor PINKY 1.2.840.114 [id number] 00:00:00 00:00:00 Only Unassigned, HUDSON 350.1.13.10 [facility] 4.2.7.2.686 [phone] [id number] 2020-04-23 2020-07-03 Laboratory Only, Web [facility] [id number] 09:22:46 08:51:45 Only Test Health 350.1.13.10 Specialty 4.2.7.2.686 [facility] [phone] [place] [id number] 2020-02-08 2020-02-08 Outpatient [facility] [id number] 2-2 [facility] 00:00:00 00:00:00 [id number] Results Test Description Test Time Test Comments Results Result [facility] e Comments US, THYROID 2020-02-08 Reason for FINAL REPORT PATIENT 14:13:00 Exam:->HX OF ID: [id number] PARTIAL Thyroid Ultrasound HYPROIDECTOY History: Partial thyroidectomy [...] MDReport Verified Date/Time: 02/08/2020 14:13:43 Reading Location: [facility] Diagnostic Imaging Reading Room - [place] [address] D CULTURE 2018-04-09 00:00:00 Test Item Value Reference Range Interpretation Comme nts CULTURE (BEAKER) (test code = 1095) No growth in 5 days BLOOD [id number] 00:00:00 Test Item Value Reference Range Interpretation Comments CULTURE (BEAKER) (test No growth in 5 days code = 1095) BASIC METABOLIC [id number] 11:06:00 Test Item Value Reference Range Interpretation [...] TO CALCULA TE ESTIMATED GFR. BASIC METABOLIC [id number] 07:36:00 Test Item Value Reference Range Interpretation [...] TO CALCULA TE ESTIMATED GFR. BASIC METABOLIC [id number] 19:50:00 Test Item Value Reference Range Interpretation [...] TO CALCULA TE ESTIMATED GFR. BASIC METABOLIC [id number] 08:59:00 Test Item Value Reference Range Interpretation [...] TO CALCULA TE ESTIMATED GFR. BASIC METABOLIC [id number] 01:18:00 Test Item Value Reference Range Interpretation [...] TO CALCULA TE ESTIMATED GFR. BASIC METABOLIC [id number] 16:32:00 Test Item Value Reference Range Interpretation [...] TO CALCULA TE ESTIMATED GFR. U/S, ABDOMINAL, [id number] 14:54:00Abdomen limited area? Add comment if clarification [...] septated cysts in liver. Signed: Oma Peters MDReport Verified Date/Time: 04/05/2018 14:54:01 Reading Location: [address] Ultrasound Reading Room HEPATIC FUNCTION [id number] 14:03:00 Test Item Value Reference Range Interpretation [...] = 21 U/L 6-55 347) BASIC METABOLIC [id number] 09:16:00 Test Item Value Reference Range Interpretation [...] ESTIMATED GFR. CBC W/PLT COUNT & AUTO [id number] 08:44:00 Test Item Value Reference Range Interpretation [...] (BEAKER) (test code = 2801) BASIC METABOLIC [id number] 01:06:00 Test Item Value Reference Range Interpretation [...] m DATA TO CALCULA TE ESTIMATED GFR. [id number] 18:02:00 Test Item Value Reference Range Interpretation Comments AMMONIA (BEAKER) (test code = 348) 35 mol/L 18-72 BASIC METABOLIC [id number] 17:31:00 Test Item Value Reference Range Interpretation [...] TO CALCULA TE ESTIMATED GFR. BASIC METABOLIC [id number] 09:29:00 Test Item Value Reference Range Interpretation [...] TO CALCULA TE ESTIMATED GFR. BLOOD GAS, [id number] 05:19:00 Test Item Value Reference Range Interpretation [...] C (test code = 1818) BASIC METABOLIC [id number] 03:52:00 Test Item Value Reference Range Interpretation [...] m DATA TO CALCULA TE ESTIMATED GFR. [id number] 03:48:00 Test Item Value Reference Range Interpretation Comments PHOSPHORUS (BEAKER) (test code = 3.6 mg/dL 2.3-4.7 604) [id number] 03:48:00 Test Item Value Reference Range Interpretation Comments MAGNESIUM (BEAKER) (test code = 2.1 mg/dL 1.6-2.6 627) LACTIC ACID, VENOUS, WHOLE [id number] 03:44:00 Test Item Value Reference Range Interpretation [...] WBC 0-0 (BEAKER) (test code = 413) [id number] 02:06:00 Test Item Value Reference Range Interpretation Comments CORTISOL, TOTAL (BEAKER) (test 17.8 ug/dL 3.7-19.4 code = 2755) TSH/FREE T4 IF [id number] 02:06:00 Test Item Value Reference Range Interpretation Comments THYROID STIMULATING HORMONE 1.09 uIU/mL 0.35-4.94 (BEAKER) (test code = 772) HIV-1 ANTIGEN WITH HIV-1/2 [id number] 00:06:00 Test Item Value Reference Range Interpretation Comments HIV-1 ANTIGEN WITH HIV 1\T\2 Nonreactive Nonreactive ANTIBODY (2) (BEAKER) (test code = 2586) BASIC METABOLIC [id number] 23:30:00 Test Item Value Reference Range Interpretation [...] ESTIMATED GFR. RAD, CHEST, 1 VIEW, NON [id number] 21:34:00Reason for exam:->ALTERED MENTAL STATUSReason for exam:->NEUROLOGIC [...] MDReport Verified Date/Time: 04/03/2018 21:34:48 Reading Location: [address] Reading Room OSMOLALITY, [id number] 21:10:00 Test Item Value Reference Range Interpretation Comments OSMOLALITY, SERUM (BEAKER) (test 236 mOsm/kg 275-295 L code = 615) RAPID DRUG SCREEN, [id number] 20:47:00 Test Item Value Reference Range Interpretation [...] situations. Chain of custody not maintained. Some fbjn-dvv-oahjukt medications, as well as adulterants, may cause inaccurate results. Clinical correlation should be applied. A more comprehensive drug screen or confirmation of a detected drug may be performed upon request.[id number] 20:43:00 Test Item Value Reference Range Interpretation Comments PHOSPHORUS (BEAKER) (test code = 1.8 mg/dL 2.3-4.7 L 604) HEPATIC FUNCTION [id number] 20:43:00 Test Item Value Reference Range Interpretation [...] (test code = 22 U/L 6-55 347) [id number] 20:43:00 Test Item Value Reference Range Interpretation Comments LIPASE (BEAKER) (test code = 749) 21 U/L 8-78 SODIUM, RANDOM [id number] 20:40:00 Test Item Value Reference Range Interpretation Comments SODIUM URINE (BEAKER) (test code = 60 meq/L 243) Reference Range: No NormalsOSMOLALITY, [id number] 20:40:00 Test Item Value Reference Range Interpretation Comments OSMOLALITY URINE (BEAKER) (test 169 mOsm/kg 40-1400 code = 614) CREATININE, RANDOM [id number] 20:40:00 Test Item Value Reference Range Interpretation Comments CREATININE URINE (BEAKER) (test 11.7 mg/dL code = 375) Reference Range: No [id number] 20:37:00 Test Item Value Reference Range Interpretation Comments ETHANOL (BEAKER) (test code = 400) < mg/dL <=10 [id number] 20:35:00 Test Item Value Reference Range Interpretation Comments AMMONIA (BEAKER) (test code = 348) 33 mol/L 18-72 MR, MRA, BRAIN, WITHOUT [id number] 19:42:00FINAL REPORT MRA head and neck without contrast. CLINICAL HISTORY: Stroke. CO MPARISON: None. TECHNIQUE: Two- and three-dimensional uvoa-gv-djhvwg MRA images of the intra- and extracranial [...] right common carotid artery (image 1). MRA [place]: There is no vessel occlusion, [...] Leela Ventura Verified Date/Time: 04/03/201819:42:20 Reading Location: [address] Reading Room MR, MRA, NECK, WITHOUT IV [id number] 19:42:00FINAL REPORT MRA head and neck without contrast. CLINICAL HISTORY: Stroke. COMPARISON: None. TECHNIQUE: Two- and three-dimensional ekqf-kr-xjxbbb MRA images of the intra- and extracranial [...] right common carotid artery (image 1). MRA [place]: There is no vessel occlusion, [...] at approximately 7:40 PM on 04/03/2018. Signed: Amuta, Leela MDReport Verified Date/Time: 04/03/201819:42:20 Reading Location: [address] Transitional Reading Room CREATINE KINASE (CK), TOTAL AND [id number] 19:36:00 Test Item Value Reference Range Interpretation Comments CREATINE KINASE TOTAL (BEAKER) 103 U/L 29-200 (test code = 380) CREATINE KINASE-MB (BEAKER) (test 2.5 ng/mL 0.0-6.6 code = 750) CREATINE KINASE-MB INDEX (BEAKER) 2.4 % (test code = 395) CK-MB Reference Range:<6.7 Normal6.7-10.0 Borderline>10.0 AbnormalTROPONIN [id number] 19:36:00 Test Item Value Reference Range Interpretation [...] neurological disease, and persistent tachyarrhythmia.MR, BRAIN, WITHOUT [id number] 19:34:00FINAL REPORT Exam: MRI brain without contrast. [...] Verified Date/Time: 04/03/2018 19:34:38 Reading Locat ion: [facility] B1 C013T Transitional Reading Room Electronically signed by: LEELA VENTURA MD on04/03/2018 07:34 PMB-TYPE NATRIURETIC FACTOR (BNP)2018-04-03 19:33:00 Test Item Value Reference Range Interpretation Comments B-TYPE NATRIURETIC PEPTIDE (BEAKER) 90 pg/mL 0-100 (test code = 700) URINALYSIS W/ [id number] 18:43:00 Test Item Value Reference Range Interpretation [...] 520) SOURCE(BEAKER) (test code = Urine, Gooden 6121) BASIC METABOLIC [id number] 18:32:00 Test Item Value Reference Range Interpretation [...] m DATA TO CALCULA TE ESTIMATED GFR. [id number] 18:28:00 Test Item Value Reference Range Interpretation Comments MAGNESIUM (BEAKER) (test code = 1.7 mg/dL 1.6-2.6 627) [id number] 18:02:00 Test Item Value Reference Range Interpretation [...] PERCENT (BEAKER) (test code = 2801) POCT-GLUCOSE [id number] 17:49:00 Test Item Value Reference Range Interpretation Comments POC-GLUCOSE METER 100 mg/dL 70-110 TESTED AT [facility] 67[address] ([facility]) (test code = ALDA [place] 1538) [address] CT, BRAIN/STROKE [id number] 17:45:00Reason for exam:->stroke protocolIs the patient ?->NoWhat [...] Almaguer at 1740 hours. Signed: Nolan Pretty MDRdawoodst. [facility] Verified Date/Time: 04/03/2018 17:45:48 Reading Location: [address] Reading Room
[2022-01-07] MEDS ORDERED: HYDROMORPHONE HCL 0.5 MG/0.5 ML INJ ONE (01:43)
[2022-01-07] MEDS ORDERED: DIAZEPAM 5 MG TABLET ONE (01:43)
[2022-01-07] MEDS ORDERED: ONDANSETRON 4 MG/2 ML VIAL ONE (01:44)
[2022-01-07] MEDS ORDERED: dexAMETHasone 10 MG/ML VIAL ONE (01:44)
[2022-01-07] MEDS ORDERED: KETOROLAC 30 MG/ML INJ ONE (01:44)
[2022-01-07] MEDS ORDERED: NA CHLORIDE 0.9% 1,000 ML ONE (01:44)
[2022-01-07 02:18] LABS: Protime INR 0.91
[2022-01-07 02:19] LABS: Absolute Lymphocytes (CBC) 1.4 K/uL (0.7-4.9); Hematocrit 35.8 % (36.0-45.0); Lymphocytes % 25.9 % (15.3-44.8); MPV 6.4 fL (7.6-11.3); RBC Red Blood Cell Count 4.11 M/uL (3.86-4.86)
[2022-01-07 02:29] LABS: Albumin 3.7 g/dL (3.4-5.0); Bilirubin Total 0.4 mg/dL (0.2-1.0); Potassium 3.8 mmol/L (3.5-5.1)
[2022-01-07 02:43] LABS: Urine Blood Negative (Negative); Urine Glucose Negative (Negative); Urine Protein Negative (Negative); Urine Specific Gravity 1.015 (1.005-1.030)
--- NOTE | 2022-01-07 02:54 | ER ---
Nurse's Notes [facility] Name: Lizbet Solares Age: 56 yrs Sex: Female : 1965 Arrival Date: 01/07/2022 Time: 00:52 Bed 20 Private MD: Diagnosis: Low back pain;Sciatica, left side;UTI/ Urinary tract infection, site not specified Presentation: 01/07 01:02 Chief complaint: Patient states: had back surgery 5 weeks ago. has been having left leg lg3 pain that is gradually getting worse. Coronavirus screen: Client denies travel out of the [place] in the last 14 days. At this time, the client does not indicate any symptoms associated with coronavirus-19. Ebola Screen: No symptoms or risks identified at this time. Initial Sepsis Screen: Does the patient meet any 2 criteria? No. Patient's initial sepsis screen is negative. Does the patient have a suspected source of infection? No. Patient's initial sepsis screen is negative. Risk Assessment: Do you want to hurt yourself or someone else? Patient reports no desire to harm self or others. Onset of symptoms was November 24, 2021. 01:02 Method Of Arrival: Ambulatory lg3 01:02 Acuity: NAFISA 3 lg3 Triage Assessment: 01:04 General: Appears in no apparent distress. uncomfortable, Behavior is calm, cooperative. lg3 Pain: Complains of pain in left leg Pain currently is 8 out of 10 on a pain scale. EENT: No deficits noted. No signs and/or symptoms were reported regarding the EENT system. Neuro: No deficits noted. Level of Consciousness is awake, alert, obeys commands, Oriented to person, place, time, situation. Cardiovascular: No deficits noted. Denies chest pain, shortness of breath. Respiratory: No deficits noted. Airway is patent Trachea midline Respiratory effort is even, unlabored, Respiratory pattern is regular, symmetrical. GI: No deficits noted. No signs and/or symptoms were reported involving the gastrointestinal system. Abdomen is round non-distended. : No deficits noted. No signs and/or symptoms were reported regarding the genitourinary system. Derm: No deficits noted. No signs and/or symptoms reported regarding the dermatologic system. Skin is intact, is healthy with good turgor, Skin is dry. Musculoskeletal: Circulation, motion, and sensation intact. Capillary refill < 3 seconds, Range of motion: intact in all extremities, Reports weakness in left leg pain in left leg. Historical: - Allergies: 01:04 No Known Allergies; lg3 - Home Meds: 01:04 Advil Oral [Active]; lg3 - PMHx: 01:04 Anxiety; Depression; Hypertension; lg3 - PSHx: 01:04 bilateral heels; partial thyroidectomy; decompression of vertebrae; lg3 - Immunization history:: Adult Immunizations up to date, Client reports receiving the 2nd dose of the Covid vaccine, moderna X3. - Social history:: Smoking status: Patient denies any tobacco usage or history of. Patient/guardian denies using alcohol, street drugs. - Family history:: not pertinent. Screenin:07 Abuse screen: Denies threats or abuse. Denies injuries from another. Nutritional lg3 screening: No deficits noted. Tuberculosis screening: No symptoms or risk factors identified. Fall Risk None identified. Assessment: 01:23 General: Appears in no apparent distress. Behavior is calm, cooperative, appropriate kd3 for age. Pain: Complains of pain in left leg. Respiratory: Airway is patent Trachea midline Respiratory effort is even, unlabored. Vital Signs: 01:02 BP 115 / 74; Pulse 84; Resp 18 S; Temp 97.6(TE); Pulse Ox 98% on R/A; Weight 99.79 kg lg3 (R); Height 5 ft. 5 in. (165.10 cm) (R); Pain 8/10; 01:23 BP 139 / 90; Pulse 82; Resp 16; Pulse Ox 99% on R/A; kd3 03:27 BP 138 / 9; Pulse 81; Resp 16; Pulse Ox 100% on R/A; kd3 01:02 Body Mass Index 36.61 (99.79 kg, 165.10 cm) lg3 ED Course: 00:52 Patient arrived in ED. ag3 01:04 Triage completed. lg3 01:04 Arm band placed on right wrist. lg3 01:14 Linnette Damian RN is Primary Nurse. kd3 01:14 Ludwin Royal MD is Attending Physician. lena 01:21 Patient has correct armband on for positive identification. Pulse ox on. NIBP on. kd3 01:50 Inserted saline lock: 22 gauge in left antecubital area, using aseptic technique. Blood ds4 collected. Missed attempt(s): 22 gauge in right forearm. Bleeding controlled, band aid applied, catheter tip intact. 02:17 CT Lumbar Spine Wo Con In Process Unspecified. EDMS 03:27 No provider procedures requiring assistance completed. IV discontinued, intact, kd3 bleeding controlled, No redness/swelling at site. Pressure dressing applied. Administered Medications: 01:51 Drug: NS 0.9% 1000 ml Route: IV; Rate: 1 bolus; Site: left antecubital; ke1 03:28 Follow up: Rate change 500 ml; IV Status: Completed infusion kd3 01:51 Drug: Zofran (Ondansetron) 4 mg Route: IVP; Site: left antecubital; ke1 03:28 Follow up: Response: No adverse reaction kd3 03:28 Follow up: Response: No adverse reaction kd3 01:51 Drug: Valium (diazepam) 10 mg Route: PO; ke1 03:28 Follow up: Response: Anxiety decreased kd3 01:56 Drug: Decadron - Dexamethasone 10 mg Route: IVP; Site: left antecubital; ke1 03:28 Follow up: Response: No adverse reaction kd3 01:56 Drug: Dilaudid (HYDROmorphone) 1 mg Route: IVP; Site: left antecubital; ke1 03:28 Follow up: Response: Pain is decreased kd3 01:57 Drug: Ketorolac 30 mg Route: IVP; Site: left antecubital; ke1 03:29 Follow up: Response: Pain is decreased kd3 03:26 Drug: Rocephin (cefTRIAXone) 1 grams Route: IV; Rate: per protocol; Site: left kd3 antecubital; 03:26 Follow up: Rate change 10 ml; IV Status: Completed infusion kd3 Outcome: 02:52 Discharge ordered by MD. paredes 03:27 Discharged to home ambulatory. kd3 03:27 Condition: stable 03:27 Discharge instructions given to patient, Instructed on discharge instructions, follow up and referral plans. medication usage, Demonstrated understanding of instructions, follow-up care, medications, Prescriptions given X 5 03:29 Patient left the ED. kd3 Signatures: Dispatcher [employer] EDMS Ludwin Royal MD MD cha Swanson, Donovan ds4 Suzan Aguilar ag3 Anh Benz, RN RN lg3 Linnette Damian, RN RN kd3 Pricilla Berg, RN RN ke1
--- NOTE | 2022-01-07 02:54 | EDPHYS ---
Physician Documentation [facility] Name: Lizbet Solares Age: 56 yrs Sex: Female : 1965 Arrival Date: 01/07/2022 Time: 00:52 Bed 20 Private MD: BARRETT Physician Ludwin Royal HPI: 01/07 01:29 This 56 yrs old Female presents to ER via Ambulatory with complaints of Leg lena Pain. 01:29 The patient presents with decreased range of motion, pain, that is acute. The lena complaints affect the lumbar area. Context: The problem was sustained at home. Onset: The symptoms/episode began/occurred 3 week(s) ago. Modifying factors: The symptoms are alleviated by nothing. remaining still, the symptoms are aggravated by nothing. Associated signs and symptoms: The patient has no apparent associated signs or symptoms. Treatment prior to arrival includes: no previous treatment. Severity of symptoms: At their worst the symptoms were mild, moderate, in the emergency department the symptoms are unchanged. The patient has experienced a previous episode, last month. Historical: - Allergies: 01:04 No Known Allergies; lg3 - Home Meds: 01:04 Advil Oral [Active]; lg3 - PMHx: 01:04 Anxiety; Depression; Hypertension; lg3 - PSHx: 01:04 bilateral heels; partial thyroidectomy; decompression of vertebrae; lg3 - Immunization history:: Adult Immunizations up to date, Client reports receiving the 2nd dose of the Covid vaccine, moderna X3. - Social history:: Smoking status: Patient denies any tobacco usage or history of. Patient/guardian denies using alcohol, street drugs. - Family history:: not pertinent. ROS: 01:29 Constitutional: Negative for fever, chills, and weight loss, Eyes: Negative for injury, lena pain, redness, and discharge, ENT: Negative for injury, pain, and discharge, Neck: Negative for injury, pain, and swelling, Cardiovascular: Negative for chest pain, palpitations, and edema, Respiratory: Negative for shortness of breath, cough, wheezing, and pleuritic chest pain, Abdomen/GI: Negative for abdominal pain, nausea, vomiting, diarrhea, and constipation, : Negative for injury, bleeding, discharge, and swelling, MS/Extremity: Negative for injury and deformity, Skin: Negative for injury, rash, and discoloration, Neuro: Negative for headache, weakness, numbness, tingling, and seizure, Psych: Negative for depression, anxiety, suicide ideation, homicidal ideation, and hallucinations, Allergy/Immunology: Negative for hives, rash, and allergies, Endocrine: Negative for neck swelling, polydipsia, polyuria, polyphagia, and marked weight changes, Hematologic/Lymphatic: Negative for swollen nodes, abnormal bleeding, and unusual bruising. : Back: Positive for pain at rest. Exam: Constitutional: This is a well developed, well nourished patient who is awake, alert, lena and in no acute distress. Head/Face: Normocephalic, atraumatic. Eyes: Pupils equal round and reactive to light, extra-ocular motions intact. Lids and lashes normal. Conjunctiva and sclera are non-icteric and not injected. Cornea within normal limits. Periorbital areas with no swelling, redness, or edema. ENT: Nares patent. No nasal discharge, no septal abnormalities noted. Tympanic membranes are normal and external auditory canals are clear. Oropharynx with no redness, swelling, or masses, exudates, or evidence of obstruction, uvula midline. Mucous membranes moist. Neck: Trachea midline, no thyromegaly or masses palpated, and no cervical lymphadenopathy. Supple, full range of motion without nuchal rigidity, or vertebral point tenderness. No Meningismus. Chest/axilla: Normal chest wall appearance and motion. Nontender with no deformity. No lesions are appreciated. Cardiovascular: Regular rate and rhythm with a normal S1 and S2. No gallops, murmurs, or rubs. Normal PMI, no JVD. No pulse deficits. Respiratory: Lungs have equal breath sounds bilaterally, clear to auscultation and percussion. No rales, rhonchi or wheezes noted. No increased work of breathing, no retractions or nasal flaring. Abdomen/GI: Soft, non-tender, with normal bowel sounds. No distension or tympany. No guarding or rebound. No evidence of tenderness throughout. Female : Normal external genitalia. Skin: Warm, dry with normal turgor. Normal color with no rashes, no lesions, and no evidence of cellulitis. MS/ Extremity: Pulses equal, no cyanosis. Neurovascular intact. Full, normal range of motion. Neuro: Awake and alert, GCS 15, oriented to person, place, time, and situation. Cranial nerves II-XII grossly intact. Motor strength 5/5 in all extremities. Sensory grossly intact. Cerebellar exam normal. Normal gait. Psych: Awake, alert, with orientation to person, place and time. Behavior, mood, and affect are within normal limits. 01:29 Back: pain, that is mild, that is moderate, ROM is normal, normal spinal alignment noted, CVA tenderness, is absent, muscle spasm, is appreciated in the low back area, left low back, left mid back and right mid back. Vital Signs: 01:02 BP 115 / 74; Pulse 84; Resp 18 S; Temp 97.6(TE); Pulse Ox 98% on R/A; Weight 99.79 kg lg3 (R); Height 5 ft. 5 in. (165.10 cm) (R); Pain 8/10; 01:23 BP 139 / 90; Pulse 82; Resp 16; Pulse Ox 99% on R/A; kd3 03:27 BP 138 / 9; Pulse 81; Resp 16; Pulse Ox 100% on R/A; kd3 01:02 Body Mass Index 36.61 (99.79 kg, 165.10 cm) lg3 MDM: 01:15 Patient medically screened. [facility] 01:29 Differential diagnosis: contusion. Data reviewed: vital signs, nurses notes, lab test [facility] result(s), radiologic studies, CT scan. Data interpreted: monitor tech: rate is 82 beats/min, rhythm is regular, Pulse oximetry: on room air is 99 %. Counseling: I had a detailed discussion with the patient and/or guardian regarding: the historical points, exam findings, and any diagnostic results supporting the discharge/admit diagnosis, lab results, radiology results. 01/07 01:28 Order name: CBC with Diff; Complete Time: 02: lena 01/07 01:28 Order name: Comprehensive Metabolic Panel; Complete Time: :34 lena 01/07 01:28 Order name: PT-INR; Complete Time: 02:34 lena 01/07 02:43 Order name: Urine Dipstick-Ancillary; Complete Time: 02:51 EDMS 01/07 02:44 Order name: Urine Microscopic Only mw2 01/07 02:52 Order name: Urine Culture [facility] 01/07 01:28 Order name: CT Lumbar Spine Wo Con lena 01/07 01:28 Order name: Urine Dipstick-Ancillary (obtain specimen); Complete Time: 02:46 lena Administered Medications: 01:51 Drug: NS 0.9% 1000 ml Route: IV; Rate: 1 bolus; Site: left antecubital; ke1 03:28 Follow up: Rate change 500 ml; IV Status: Completed infusion kd3 01:51 Drug: Zofran (Ondansetron) 4 mg Route: IVP; Site: left antecubital; ke1 03:28 Follow up: Response: No adverse reaction kd3 03:28 Follow up: Response: No adverse reaction kd3 01:51 Drug: Valium (diazepam) 10 mg Route: PO; ke1 03:28 Follow up: Response: Anxiety decreased kd3 01:56 Drug: Decadron - Dexamethasone 10 mg Route: IVP; Site: left antecubital; ke1 03:28 Follow up: Response: No adverse reaction kd3 01:56 Drug: Dilaudid (HYDROmorphone) 1 mg Route: IVP; Site: left antecubital; ke1 03:28 Follow up: Response: Pain is decreased kd3 01:57 Drug: Ketorolac 30 mg Route: IVP; Site: left antecubital; ke1 03:29 Follow up: Response: Pain is decreased kd3 03:26 Drug: Rocephin (cefTRIAXone) 1 grams Route: IV; Rate: per protocol; Site: left kd3 antecubital; 03:26 Follow up: Rate change 10 ml; IV Status: Completed infusion kd3 Disposition Summary: 01/07/22 02:52 Discharge Ordered Location: Home lena Problem: new lena Symptoms: have improved lena Condition: Stable lena Diagnosis - Low back pain lena - Sciatica, left side lena - UTI/ Urinary tract infection, site not specified lena Followup: lena - With: Private Physician - When: Today - Reason: Recheck today's complaints, Continuance of care, Re-evaluation by your physician Discharge Instructions: - Discharge Summary Sheet lena - Acute Back Pain, Adult lena - Musculoskeletal Pain lena - Sciatica lena - Urinary Tract Infection, Adult lena - Urinary Tract Infection, Adult, Grlq-[id number] lena - Chronic Back Pain, [id number] lena Forms: - Medication Reconciliation Form lena - Thank You Letter lena - Antibiotic Education lena - Prescription Opioid Use [facility] Prescriptions: - Ibuprofen 600 mg Oral Tablet - take 1 tablet by ORAL route every 6 hours As needed take with food; 30 tablet; [facility] Refills: 0, Product Selection Permitted - Cyclobenzaprine 5 mg Oral Tablet - take 1 tablet by ORAL route 3 times per day As needed; 15 tablet; Refills: 0, [facility] Product Selection Permitted - Tylenol-Codeine #3 300 mg-30 mg Oral - take 2 tablet by ORAL route every 6 hours; 24 tablet; Refills: 0, Product lena Selection Permitted - dexamethasone 2 mg Oral tablet - take 1 tablet by ORAL route 3 times per day; 12 tablet; Refills: 0, Product jr8 Selection Permitted - Bactrim DS 800-160 mg Oral Tablet - take 1 tablet by ORAL route every 12 hours for 5 days; 10 tablet; Refills: 0, [facility] Product Selection Permitted Signatures: Dispatcher [employer] Ludwin Eisenberg MD MD cha Gibson, Lacie RN RN lg3 Linnette Damian RN RN kd3 Pricilla Berg RN RN ke1
[2022-01-07 03:15] LABS: Calcium Oxalate Crystals- Ur FEW (NONE SEEN); Urine Bacteria <20 /HPF (<20); Urine RBC <5 /HPF (NONE SEEN)
[2022-01-07 03:59] VITALS: TEMP 97.6
[2022-01-07 04:02] VITALS: BP 138/9; O2SAT 100
--- NOTE | 2022-01-07 15:58 | RAD REPORT ---
EXAM DESCRIPTION: CT - Spine Lumbar Wo Con - 01/07/2022 6:43 am CLINICAL HISTORY: PAIN COMPARISON: None. TECHNIQUE: CT LUMBAR SPINE WITHOUT IV CONTRAST on 01/07/2022 1:29 AM CDT This exam was performed according to our departmental dose-optimization program, which includes autom ated exposure control, adjustment of the mA and/or kV according to patient size and/or use of iterati ve reconstruction technique. FINDINGS: There is no acute fracture. Vertebral body heights are preserved. There is mild leftward c urvature of the mid lumbar spine. There is mild lower lumbar facet arthritis. Disc spaces are maintained. Soft tissues are unremarkable. IMPRESSION: No acute fracture or subluxation. Electronically signed by: Brooks Duran MD 01/07/2022 2:44 AM CDT Due to temporary technical issues with the PACS/Fluency reporting system, reports are being signed by the in house radiologists without review as a courtesy to insure prompt reporting. The interpreting radiologist is fully responsible for the content of the report.
== END 2022-01-07 03:29 | disposition home or self-care (01) ==
LOC: ER 00:49
DX: M54.32 Sciatica, left side (principal); N39.0 Urinary tract infection, site not specified; I10 Essential (primary) hypertension
CPT/HCPCS: 96361; 87088; 85025; 87086; 36415; 85610; 80053; 72131; 96375; 96374; 99284; J1100; J1170; J7030; J2405; 81003; 81015

== ENCOUNTER 2022-01-07 22:58 | Emergency (ER) | payer BC ==
--- OUTSIDE RECORDS SUMMARY | 2022-01-07 23:19 | XMS REPORT | Continuity of Care Document ---
:[address] [facility] t Address [address] [place] [address] Care Team Providers Name Role Phone Amy MANUEL Primary Care Physician Unavailable Ella HOLT Attending Clinician Unavailable Yanet [employer]ER, B Attending Clinician Amy Manuel MD Attending Clinician Doctor Unassigned, Name Attending Clinician Unavailable Tanja DONATO, T Attending Clinician Pamela Munoz Attending Clinician Only, Test Attending Clinician Unavailable Paz ALMAGUER Attending Clinician Unavailable Ella HOLT Admitting Clinician Unavailable VALERIE GARRETT Admitting Clinician Unavailable Payers Payer Name Policy Type Policy Number Effective Date Expiration Date S ource HIM BCBS BLUE [id number] 2019 ADVANTAGE O 00:00:00 Advance Directives Directive Decision Effective Termination Comments Source Date Date Healthcare Agents on N/A [facility] Agent Medical RelationshipCommunication[facility] [phone] (Home) Problems Condition Condition Condition Status Onset Resolution Last Treating Co mments Source Name Details Category Date Date Treatment Clinician Date Abnormal Abnormal Disease Active Unive rs liver liver 1- [place] Severe Severe Disease Active Univers obstructiv obstructiv 1-26 it y of e sleep e sleep 00:00: [place] apnea apnea Medical Branch Prediabete Prediabete Disease Active U nivers s s 1-19 ity of 00:00: Medical Branch Mixed Mixed Disease Active Univers hyperlipid hyperlipid -19 it y of emia emia 00:00: Medical Branch Abnormal Abnormal Disease Active Unive rs LFTs LFTs -19 ity of 00:00: Medical Branch GERD GERD Disease Active Univers (gastroeso (gastroeso 1-17 it y of phageal phageal 00:00: reflux reflux Medical disease) disease) Branch Mitral Mitral Disease Active Univers valve valve 1-17 ity of prolapse prolapse 00:00: [place] [facility] Anxiety Anxiety Disease Active Univers 1-17 ity of 00:00: [place] [facility] Pernicious Pernicious Disease Active U [...] of hypothyroi hypothyroi 00:00: g of this [place] dism dism note Medical might be Branch [...] Active Univers ALLERGIE Class ity of S [facility] NO KNOWN Allergy Active [facility] ALLERGIE S Social History Social Habit Start Date Stop Date Quantity Comments Source Exposure to Unable to assess Univers ity of SARS-CoV-2 [place] [facility] (event) Branch History [facility] o f Alcohol Frequency [place] M edical Branch History [facility] o f Alcohol Std [place] [facility] Drinks Branch History [facility] o f Alcohol Binge [place] [facility] al Branch Alcohol intake 2021-11-12 2021-11-12 Ex-drinker University 00:00:00 00:00:00 (finding) [facility] Tobacco use and 2021-10-21 2021-10-21 Never used Universit y of exposure 00:00:00 00:00:00 [facility] Alcohol Comment 2021-10-21 2021-10-21 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 [address] ARIPiprazol Yes 5mg Take 5 mg U nivers e (ABILIFY) 2-02 by mouth ity of 5 mg tablet 14:14: daily. [address] ARIPiprazol Yes 5mg Take 5 mg U nivers e (ABILIFY) 2-02 by mouth ity of 5 mg tablet 14:14: daily. [address] ARIPiprazol Yes 5mg Take 5 mg U nivers e (ABILIFY) 2-02 by mouth ity of 5 mg tablet 14:14: daily. [address] ARIPiprazol Yes 5mg Take 5 mg U nivers e (ABILIFY) 2-02 by mouth ity of 5 mg tablet 14:14: daily. [address] ARIPiprazol Yes 5mg Take 5 mg U nivers e (ABILIFY) 2-02 by mouth ity of 5 mg tablet 14:14: daily. [address] omeprazole Yes [id number] 20mg Take 1 Univers 20 mg 1-11 capsule by ity of capsule 00:00: mouth [place] 00 daily. Medical Branch liothyronin Yes [id number] 5ug Take 1 Univers e 5 mcg 1-11 tablet by ity of tablet 00:00: mouth 2 [place] 00 (two) Medical times Branch daily. SYNTHROID Yes [id number] 75ug Take 1 U nivers 75 mcg 1-11 tablet by ity of tablet 00:00: mouth [place] 00 every Medical morning. Branch BRAND MEDICALLY NECESSARY metoprolol Yes [id number] 100mg Take 1 Univers succinate 1-11 tablet by ity o f XL 100 mg 00:00: mouth [place] 24 hr 00 daily. Medical tablet Branch felodipine Yes [id number] 5mg Take 1 U nivers 5 mg 24 hr 1-11 tablet by ity of tablet 00:00: mouth at [place] 00 bedtime. Medical Branch rosuvastati Yes [id number] 20mg Take 1 Univers n 20 mg 1-11 tablet by ity of tablet 00:00: mouth at [place] 00 bedtime. Medical Branch omeprazole 0 Yes [id number] 20mg Take 1 Univers 20 mg 1-11 capsule by ity of capsule 00:00: mouth [place] 00 daily. Medical Branch liothyronin Yes [id number] 5ug Take 1 Univers e 5 mcg 1-11 tablet by ity of tablet 00:00: mouth 2 [place] 00 (two) Medical times Branch daily. SYNTHROID 2021-0 Yes [id number] 75ug Take 1 U nivers 75 mcg 1-11 tablet by ity of tablet 00:00: mouth [place] 00 every Medical morning. Branch BRAND MEDICALLY NECESSARY metoprolol 2021-0 Yes [id number] 100mg Take 1 Univers succinate 1-11 tablet by ity o f XL 100 mg 00:00: mouth [place] 24 hr 00 daily. Medical tablet Branch felodipine 0 Yes [id number] 5mg Take 1 U nivers 5 mg 24 hr 1-11 tablet by ity of tablet 00:00: mouth at [place] 00 bedtime. Medical Branch rosuvastati 0 Yes [id number] 20mg Take 1 Univers n 20 mg 1-11 tablet by ity of tablet 00:00: mouth at [place] 00 bedtime. Medical Branch omeprazole 0 Yes [id number] 20mg Take 1 Univers 20 mg 1-11 capsule by ity of capsule 00:00: mouth [place] 00 daily. Medical Branch liothyronin 0 Yes [id number] 5ug Take 1 Univers e 5 mcg 1-11 tablet by ity of tablet 00:00: mouth 2 00 (two) Medical times Branch daily. SYNTHROID 2021-0 Yes [id number] 75ug Take 1 U nivers 75 mcg 1-11 tablet by ity of tablet 00:00: mouth [place] 00 every Medical morning. Branch BRAND MEDICALLY NECESSARY metoprolol 2021-0 Yes [id number] 100mg Take 1 Univers succinate 1-11 tablet by ity o f XL 100 mg 00:00: mouth [place] 24 hr 00 daily. Medical tablet Branch felodipine 0 Yes [id number] 5mg Take 1 U nivers 5 mg 24 hr 1-11 tablet by ity of tablet 00:00: mouth at [place] 00 bedtime. Medical Branch rosuvastati 0 Yes [id number] 20mg Take 1 Univers n 20 mg 1-11 tablet by ity of tablet 00:00: mouth at [place] 00 bedtime. Medical Branch omeprazole 2021-0 Yes [id number] 20mg Take 1 Univers 20 mg 1-11 capsule by ity of capsule 00:00: mouth [place] 00 daily. Medical Branch liothyronin 2022-0 Yes [id number] 5ug Take 1 Univers e 5 mcg 1-11 tablet by ity of tablet 00:00: mouth 2 [place] 00 (two) Medical times Branch daily. SYNTHROID 2021-0 Yes [id number] 75ug Take 1 U nivers 75 mcg 1-11 tablet by ity of tablet 00:00: mouth [place] 00 every Medical morning. Branch BRAND MEDICALLY NECESSARY metoprolol 2021-0 Yes [id number] 100mg Take 1 Univers succinate 1-11 tablet by ity o f XL 100 mg 00:00: mouth [place] 24 hr 00 daily. Medical tablet Branch felodipine 0 Yes [id number] 5mg Take 1 U nivers 5 mg 24 hr 1-11 tablet by ity of tablet 00:00: mouth at [place] 00 bedtime. Medical Branch rosuvastati 0 Yes [id number] 20mg Take 1 Univers n 20 mg 1-11 tablet by ity of tablet 00:00: mouth at [place] 00 bedtime. Medical Branch omeprazole 2021-0 Yes [id number] 20mg Take 1 Univers 20 mg 1-11 capsule by ity of capsule 00:00: mouth [place] 00 daily. Medical Branch liothyronin Yes [id number] 5ug Take 1 Univers e 5 mcg 1-11 tablet by ity of tablet 00:00: mouth 2 (two) Medical times Branch daily. SYNTHROID 2021-0 Yes [id number] 75ug Take 1 U nivers 75 mcg 1-11 tablet by ity of tablet 00:00: mouth [place] 00 every Medical morning. Branch BRAND MEDICALLY NECESSARY metoprolol 2021-0 Yes [id number] 100mg Take 1 Univers succinate 1-11 tablet by ity o f XL 100 mg 00:00: mouth [place] 24 hr 00 daily. Medical tablet Branch felodipine 0 Yes [id number] 5mg Take 1 U nivers 5 mg 24 hr 1-11 tablet by ity of tablet 00:00: mouth at [place] 00 bedtime. Medical Branch rosuvastati 2021-0 Yes [id number] 20mg Take 1 Univers n 20 mg 1-11 tablet by ity of tablet 00:00: mouth at [place] 00 bedtime. Medical Branch omeprazole 2021-0 Yes [id number] 20mg Take 1 Univers 20 mg 1-11 capsule by ity of capsule 00:00: mouth [place] 00 daily. Medical Branch liothyronin Yes [id number] 5ug Take 1 Univers e 5 mcg 1-11 tablet by ity of tablet 00:00: mouth 2 [place] (two) Medical times Branch daily. SYNTHROID Yes [id number] 75ug Take 1 U nivers 75 mcg 1-11 tablet by ity of tablet 00:00: mouth [place] 00 every Medical morning. Branch BRAND MEDICALLY NECESSARY metoprolol Yes [id number] 100mg Take 1 Univers succinate 1-11 tablet by ity o f XL 100 mg 00:00: mouth [place] 24 hr 00 daily. Medical tablet Branch felodipine Yes [id number] 5mg Take 1 U nivers 5 mg 24 hr 1-11 tablet by ity of tablet 00:00: mouth at [place] 00 bedtime. Medical Branch rosuvastati Yes [id number] 20mg Take 1 Univers n 20 mg 1-11 tablet by ity of tablet 00:00: mouth at [place] 00 bedtime. Medical Branch buPROPion Yes Univers XL 300 mg 5-21 ity of 24 hr 00:00: [place] tablet 00 Medical Branch buPROPion 0 Yes Univers XL 300 mg 5-21 ity of 24 hr 00:00: [place] tablet 00 Medical Branch buPROPion Yes Univers XL 300 mg 5-21 ity of 24 hr 00:00: [place] tablet 00 Medical Branch buPROPion Yes Univers XL 300 mg 5-21 ity of 24 hr 00:00: [place] tablet 00 Medical Branch buPROPion 2019- Yes Univers XL 300 mg 5-21 ity of 24 hr 00:00: [place] tablet 00 Medical Branch buPROPion 0 Yes Univers XL 300 mg 5-21 ity of 24 hr 00:00: [place] tablet 00 Medical Branch escitalopra 2019- Yes 20mg Take 20 mg Univers m oxalate 3-27 by mouth ity of 20 mg 00:00: daily. [place] tablet Medical Branch escitalopra 2019- Yes 20mg Take 20 mg Univers m oxalate 3-27 by mouth ity of 20 mg 00:00: daily. [place] tablet Medical Branch escitalopra 2019- Yes 20mg Take 20 mg Univers m [...] Immunizations Ordered Filled Immunization Date Status Comments [facility] e Immunization Name Name SARS-COV-2 COVID-19 2021-10-21 Completed Unive rsity of MODERNA BOOSTER 00:00:00 [facility] ical VACCINE Branch SARS-COV-2 COVID-19 2021-10-21 Completed Unive rsity of MODERNA BOOSTER 00:00:00 [facility] ical VACCINE Branch SARS-COV-2 COVID-19 2021-10-21 Completed Unive rsity of MODERNA BOOSTER 00:00:00 [facility] ical VACCINE Branch SARS-COV-2 COVID-19 2021-10-21 Completed Unive rsity of MODERNA BOOSTER 00:00:00 [facility] ical VACCINE Branch SARS-COV-2 COVID-19 2021-10-21 Completed Unive rsity of MODERNA BOOSTER 00:00:00 [facility] ical VACCINE Branch SARS-COV-2 COVID-19 2021-10-21 Completed Unive rsity of MODERNA BOOSTER 00:00:00 [facility] ical VACCINE Branch SARS-COV-2 COVID-19 2021-01-15 Completed Unive rsity of MODERNA VACCINE 00:00:00 [facility] ical Branch SARS-COV-2 COVID-19 2021-01-15 Completed Unive rsity of MODERNA VACCINE 00:00:00 [facility] ical Branch SARS-COV-2 COVID-19 2021-01-15 Completed Unive rsity of MODERNA VACCINE 00:00:00 [facility] ical Branch SARS-COV-2 COVID-19 2021-01-15 Completed Unive rsity of MODERNA VACCINE 00:00:00 [facility] ical Branch SARS-COV-2 COVID-19 2021-01-15 Completed Unive rsity of MODERNA VACCINE 00:00:00 [facility] SARS-COV-2 COVID-19 2021-01-15 Completed Unive rsity of MODERNA VACCINE 00:00:00 [facility] Branch SARS-COV-2 COVID-19 2020-12-18 Completed Unive rsity of MODERNA VACCINE 00:00:00 [facility] SARS-COV-2 COVID-19 2020-12-18 Completed Unive rsity of MODERNA VACCINE 00:00:00 [facility] Branch SARS-COV-2 COVID-19 2020-12-18 Completed Unive rsity of MODERNA VACCINE 00:00:00 [facility] Branch SARS-COV-2 COVID-19 2020-12-18 Completed Unive rsity of MODERNA VACCINE 00:00:00 [facility] SARS-COV-2 COVID-19 2020-12-18 Completed Unive rsity of MODERNA VACCINE 00:00:00 [facility] SARS-COV-2 COVID-19 2020-12-18 Completed Unive rsity of MODERNA VACCINE 00:00:00 [facility] Vital Signs Vital Name Observation Time Observation Value Comments Source Systolic blood 2021-12-29 19:52:00 139 mm[Hg] Univer sity of pressure [facility] Diastolic blood 2021-12-29 19:52:00 86 mm[Hg] Unive rsity of pressure [facility] Heart rate 2021-12-29 19:52:00 83 /min [facility] Body temperature 2021-12-29 19:52:00 36.67 Elvira [facility] Respiratory rate 2021-12-29 19:52:00 18 /min [facility] Body weight 2021-12-29 19:52:00 109.77 kg [facility] BMI 2021-12-29 19:52:00 40.27 kg/m2 [facility] Oxygen saturation in 2021-12-29 19:52:00 98 /min [facility] Arterial blood by [facility] Pulse oximetry Branch Procedures Procedure Date / Time Performing Clinician Source Performed XR ANKLE 3+ VW LEFT 2021-12-29 21:20:00 Faustino Holt [facility] DUPLEX VENOUS LEG LEFT - 2021-12-29 20:41:00 [facility] CONSENT/REFUSAL FOR 2021-12-29 19:34:01 Doctor Loren [facility] DIAGNOSIS AND TREATMENT [place] [facility] EXTERNAL PROVIDER RECORDS 2021-12-22 05:01:00 Doctor Pimentel [facility] [place] [facility] INSURANCE CORRESPONDENCE 2021-12-10 06:01:00 Doctor Pimentel [facility] [place] [facility] Encounters Start End Encounter Admission Attending Care Care Encounter Source Date/Time Date/Time Type Type Clinicians Facility Department ID 2021-12-29 2021-12-29 Emergency X YANET, [facility] ERT [id number] Univers 14:55:00 16:47:00 FAUSTINO itleigh of [facility] 2021-12-29 2021-12-[address] [facility] [id number] Univers 14:55:00 16:47:00 Faustino ALMAZAN [id number] i ty of [place] 4.2.7.2.686 [place] [facility] [phone] [facility] [address] [place] 2021-12-29 2021-12-[address] [facility] [id number] Univers 00:00:00 00:00:00 Wondiful A HEALTH [id number] ity of [place] 4.2.7.2.686 Branden as EL?BLEA [phone] Nm clemente [address] MEDICAL OFFICE BUILDING 2021-12-22 2021-12-22 Orders Doctor VANCE 1.2.840.114 [id number] Univers 00:00:00 00:00:00 Only Unassigned, HUDSON 350.1.13.10 ity of [place] [facility] 4.2.7.2.686 Branden as [phone] [facility] 009 Branch 2021-12-10 2021-12-10 Orders Doctor VANCE 1.2.840.114 [id number] Univers 00:00:00 00:00:00 Only Unassigned, HUDSON 350.1.13.10 ity of [place] HOSPITAL 4.2.7.2.686 Branden as [phone] [facility] 009 Branch 2021-12-01 2021-12-[address] [facility] [id number] Univers 00:00:00 00:00:00 Parminder ALMAZAN [id number] ity of [facility] 4.2.7.2.686 Antonella s PROFJORDANIO [phone] Nm dical NAL 085 [facility] 2020-10-01 2020-10-01 Emergency Zachary Mcnamara [facility] 1.2.840.114 [id number] 15:38:00 17:19:00 Pamela Almazan 350.1.13.10 [place] 4.2.7.2.686 [place] [phone] [id number] 2020-10-01 2020-10-01 Orders Doctor PINKY 1.2.840.114 [id number] 00:00:00 00:00:00 Only Unassigned, HUDSON 350.1.13.10 [place] [facility] 4.2.7.2.686 [id number] 009 2020-04-23 2020-07-03 Laboratory Only, Web [place] 1.2.840.114 [id number] 09:22:46 08:51:45 Only Test Health 350.1.13.10 Specialty 4.2.7.2.686 [facility] [phone] [place] [address] 2020-02-08 2020-02-08 Outpatient [facility] [id number] 2-2 [facility] 00:00:00 00:00:00 [id number] Results Test Description Test Time Test Comments Results Result [facility] e Comments US, THYROID 2020-02-08 Reason for FINAL REPORT PATIENT 14:13:00 Exam:->HX OF ID: [id number] PARTIAL Thyroid Ultrasound HYPROIDECTOY History: Partial thyroidectomy [...] MDReport Verified Date/Time: 02/08/2020 14:13:43 Reading Location: [facility] Diagnostic Imaging Reading Room - [place] [address] D CULTURE 2018-04-09 00:00:00 Test Item Value Reference Range Interpretation Comme nts CULTURE (BEAKER) (test code = 1095) No growth in 5 days BLOOD [id number] 00:00:00 Test Item Value Reference Range Interpretation Comments CULTURE (BEAKER) (test No growth in 5 days code = 1095) BASIC METABOLIC [id number] 11:06:00 Test Item Value Reference Range Interpretation [...] TO CALCULA TE ESTIMATED GFR. BASIC METABOLIC [id number] 07:36:00 Test Item Value Reference Range Interpretation [...] TO CALCULA TE ESTIMATED GFR. BASIC METABOLIC [id number] 19:50:00 Test Item Value Reference Range Interpretation [...] TO CALCULA TE ESTIMATED GFR. BASIC METABOLIC [id number] 08:59:00 Test Item Value Reference Range Interpretation [...] TO CALCULA TE ESTIMATED GFR. BASIC METABOLIC [id number] 01:18:00 Test Item Value Reference Range Interpretation [...] TO CALCULA TE ESTIMATED GFR. BASIC METABOLIC [id number] 16:32:00 Test Item Value Reference Range Interpretation [...] TO CALCULA TE ESTIMATED GFR. U/S, ABDOMINAL, [id number] 14:54:00Abdomen limited area? Add comment if clarification [...] MDReport Verified Date/Time: 04/05/2018 14:54:01 Reading Location: [facility] P0J Ultrasound Reading Room HEPATIC FUNCTION [id number] 14:03:00 Test Item Value Reference Range Interpretation [...] = 21 U/L 6-55 347) BASIC METABOLIC [id number] 09:16:00 Test Item Value Reference Range Interpretation [...] ESTIMATED GFR. CBC W/PLT COUNT & AUTO [id number] 08:44:00 Test Item Value Reference Range Interpretation [...] (BEAKER) (test code = 2801) BASIC METABOLIC [id number] 01:06:00 Test Item Value Reference Range Interpretation [...] m DATA TO CALCULA TE ESTIMATED GFR. [id number] 18:02:00 Test Item Value Reference Range Interpretation Comments AMMONIA (BEAKER) (test code = 348) 35 mol/L 18-72 BASIC METABOLIC [id number] 17:31:00 Test Item Value Reference Range Interpretation [...] TO CALCULA TE ESTIMATED GFR. BASIC METABOLIC [id number] 09:29:00 Test Item Value Reference Range Interpretation [...] TO CALCULA TE ESTIMATED GFR. BLOOD GAS, [id number] 05:19:00 Test Item Value Reference Range Interpretation [...] C (test code = 1818) BASIC METABOLIC [id number] 03:52:00 Test Item Value Reference Range Interpretation [...] m DATA TO CALCULA TE ESTIMATED GFR. [id number] 03:48:00 Test Item Value Reference Range Interpretation Comments PHOSPHORUS (BEAKER) (test code = 3.6 mg/dL 2.3-4.7 604) [id number] 03:48:00 Test Item Value Reference Range Interpretation Comments MAGNESIUM (BEAKER) (test code = 2.1 mg/dL 1.6-2.6 627) LACTIC ACID, VENOUS, WHOLE [id number] 03:44:00 Test Item Value Reference Range Interpretation [...] WBC 0-0 (BEAKER) (test code = 413) [id number] 02:06:00 Test Item Value Reference Range Interpretation Comments CORTISOL, TOTAL (BEAKER) (test 17.8 ug/dL 3.7-19.4 code = 2755) TSH/FREE T4 IF [id number] 02:06:00 Test Item Value Reference Range Interpretation Comments THYROID STIMULATING HORMONE 1.09 uIU/mL 0.35-4.94 (BEAKER) (test code = 772) HIV-1 ANTIGEN WITH HIV-1/2 [id number] 00:06:00 Test Item Value Reference Range Interpretation Comments HIV-1 ANTIGEN WITH HIV 1\T\2 Nonreactive Nonreactive ANTIBODY (2) (BEAKER) (test code = 2586) BASIC METABOLIC [id number] 23:30:00 Test Item Value Reference Range Interpretation [...] ESTIMATED GFR. RAD, CHEST, 1 VIEW, NON [id number] 21:34:00Reason for exam:->ALTERED MENTAL STATUSReason for exam:->NEUROLOGIC [...] MDReport Verified Date/Time: 04/03/2018 21:34:48 Reading Location: [address] Reading Room OSMOLALITY, [id number] 21:10:00 Test Item Value Reference Range Interpretation Comments OSMOLALITY, SERUM (BEAKER) (test 236 mOsm/kg 275-295 L code = 615) RAPID DRUG SCREEN, [id number] 20:47:00 Test Item Value Reference Range Interpretation [...] situations. Chain of custody not maintained. Some erzl-foo-nxrqanu medications, as well as adulterants, may cause inaccurate results. Clinical correlation should be applied. A more comprehensive drug screen or confirmation of a detected drug may be performed upon request.[id number] 20:43:00 Test Item Value Reference Range Interpretation Comments PHOSPHORUS (BEAKER) (test code = 1.8 mg/dL 2.3-4.7 L 604) HEPATIC FUNCTION [id number] 20:43:00 Test Item Value Reference Range Interpretation [...] (test code = 22 U/L 6-55 347) [id number] 20:43:00 Test Item Value Reference Range Interpretation Comments LIPASE (BEAKER) (test code = 749) 21 U/L 8-78 CREATININE, RANDOM [id number] 20:40:00 Test Item Value Reference Range Interpretation Comments CREATININE URINE (BEAKER) (test 11.7 mg/dL code = 375) Reference Range: No NormalsSODIUM, RANDOM [id number] 20:40:00 Test Item Value Reference Range Interpretation Comments SODIUM URINE (BEAKER) (test code = 60 meq/L 243) Reference Range: No NormalsOSMOLALITY, [id number] 20:40:00 Test Item Value Reference Range Interpretation Comments OSMOLALITY URINE (BEAKER) (test 169 mOsm/kg 40-1400 code = 614) [id number] 20:37:00 Test Item Value Reference Range Interpretation Comments ETHANOL (BEAKER) (test code = 400) < mg/dL <=10 [id number] 20:35:00 Test Item Value Reference Range Interpretation Comments AMMONIA (BEAKER) (test code = 348) 33 mol/L 18-72 MR, MRA, BRAIN, WITHOUT [id number] 19:42:00FINAL REPORT MRA head and neck without contrast. CLINICAL HISTORY: Stroke. CO MPARISON: None. TECHNIQUE: Two- and three-dimensional hwpg-bd-yispoi MRA images of the intra- and extracranial [...] right common carotid artery (image 1). MRA [place]: There is no vessel occlusion, [...] Leela Ventura Verified Date/Time: 04/03/201819:42:20 Reading Location: [address] Transitional Reading Room MR, MRA, NECK, WITHOUT IV [id number] 19:42:00FINAL REPORT MRA head and neck without contrast. CLINICAL HISTORY: Stroke. COMPARISON: None. TECHNIQUE: Two- and three-dimensional srov-gg-zdfjhr MRA images of the intra- and extracranial [...] right common carotid artery (image 1). MRA [place]: There is no vessel occlusion, [...] Leela Ventura Verified Date/Time: 04/03/201819:42:20 Reading Location: [facility] B1 C013T Transitional Reading Room CREATINE KINASE (CK), TOTAL AND [id number] 19:36:00 Test Item Value Reference Range Interpretation Comments CREATINE KINASE TOTAL (BEAKER) 103 U/L 29-200 (test code = 380) CREATINE KINASE-MB (BEAKER) (test 2.5 ng/mL 0.0-6.6 code = 750) CREATINE KINASE-MB INDEX (BEAKER) 2.4 % (test code = 395) CK-MB Reference Range:<6.7 Normal6.7-10.0 Borderline>10.0 AbnormalTROPONIN [id number] 19:36:00 Test Item Value Reference Range Interpretation [...] neurological disease, and persistent tachyarrhythmia.MR, BRAIN, WITHOUT [id number] 19:34:00FINAL REPORT Exam: MRI brain without contrast. [...] Verified Date/Time: 04/03/2018 19:34:38 Reading Locat ion: [facility] B1 C013T Transitional Reading Room Electronically signed by: LEELA VENTURA MD on04/03/2018 07:34 PMB-TYPE NATRIURETIC FACTOR (BNP)2018-04-03 19:33:00 Test Item Value Reference Range Interpretation Comments B-TYPE NATRIURETIC PEPTIDE (BEAKER) 90 pg/mL 0-100 (test code = 700) URINALYSIS W/ [id number] 18:43:00 Test Item Value Reference Range Interpretation [...] 520) SOURCE(BEAKER) (test code = Urine, [place] 8561) BASIC METABOLIC [id number] 18:32:00 Test Item Value Reference Range Interpretation [...] m DATA TO CALCULA TE ESTIMATED GFR. [id number] 18:28:00 Test Item Value Reference Range Interpretation Comments MAGNESIUM (BEAKER) (test code = 1.7 mg/dL 1.6-2.6 627) [id number] 18:02:00 Test Item Value Reference Range Interpretation [...] PERCENT (BEAKER) (test code = 2801) POCT-GLUCOSE [id number] 17:49:00 Test Item Value Reference Range Interpretation Comments POC-GLUCOSE METER 100 mg/dL 70-110 TESTED AT [facility] [address] ([facility]) (test code = ALDA QUIN[place] 1538) [address] CT, BRAIN/STROKE [id number] 17:45:00Reason for exam:->stroke protocolIs the patient ?->NoWhat [...] [place]maguer at 1740 hours. Signed: Nolan Pretty [facility] Verified Date/Time: 04/03/2018 17:45:48 Reading Location: [address] Reading Room
[2022-01-08] MEDS ORDERED: MEPERIDINE HCL 50 MG/ML ONE (00:12)
[2022-01-08] MEDS ORDERED: PROMETHAZINE INJ 25 MG/ML AMP ONE (00:12)
[2022-01-08] MEDS ORDERED: KETOROLAC 30 MG/ML INJ ONE (00:12)
--- NOTE | 2022-01-08 00:31 | EDPHYS ---
Physician Documentation [facility] Name: Lizbet Solares Age: 56 yrs Sex: Female : 1965 Arrival Date: 01/07/2022 Time: 22:59 Bed 14 Private MD: BARRETT Physician Ludwin Royal HPI: 01/07 23:56 This 56 yrs old Female presents to ER via Wheelchair with complaints of Leg lena Pain - Left. Historical: - Allergies: 23:39 No Known Allergies; lg3 - Home Meds: 23:39 Advil Oral [Active]; lg3 - PMHx: 23:39 Anxiety; Depression; Hypertension; lg3 - PSHx: 23:39 bilateral heels; decompression of vertebrae; partial thyroidectomy; lg3 - Immunization history:: Adult Immunizations up to date, Client reports receiving the 2nd dose of the Covid vaccine, moderna X2. - Social history:: Smoking status: Patient denies any tobacco usage or history of. Patient/guardian denies using alcohol. ROS: 23:57 Constitutional: Negative for fever, chills, and weight loss, Eyes: Negative for injury, lena pain, redness, and discharge, ENT: Negative for injury, pain, and discharge, Neck: Negative for injury, pain, and swelling, Cardiovascular: Negative for chest pain, palpitations, and edema, Respiratory: Negative for shortness of breath, cough, wheezing, and pleuritic chest pain, Abdomen/GI: Negative for abdominal pain, nausea, vomiting, diarrhea, and constipation, : Negative for injury, bleeding, discharge, and swelling, Skin: Negative for injury, rash, and discoloration, Neuro: Negative for headache, weakness, numbness, tingling, and seizure, Psych: Negative for depression, anxiety, suicide ideation, homicidal ideation, and hallucinations, Allergy/Immunology: Negative for hives, rash, and allergies, Endocrine: Negative for neck swelling, polydipsia, polyuria, polyphagia, and marked weight changes, Hematologic/Lymphatic: Negative for swollen nodes, abnormal bleeding, and unusual bruising. 23:57 Back: Positive for pain with movement, of the lumbar area and left low back. Exam: 23:57 Constitutional: This is a well developed, well nourished patient who is awake, alert, lena and in no acute distress. Head/Face: Normocephalic, atraumatic. Eyes: Pupils equal round and reactive to light, extra-ocular motions intact. Lids and lashes normal. Conjunctiva and sclera are non-icteric and not injected. Cornea within normal limits. Periorbital areas with no swelling, redness, or edema. ENT: Nares patent. No nasal discharge, no septal abnormalities noted. Tympanic membranes are normal and external auditory canals are clear. Oropharynx with no redness, swelling, or masses, exudates, or evidence of obstruction, uvula midline. Mucous membranes moist. Neck: Trachea midline, no thyromegaly or masses palpated, and no cervical lymphadenopathy. Supple, full range of motion without nuchal rigidity, or vertebral point tenderness. No Meningismus. Chest/axilla: Normal chest wall appearance and motion. Nontender with no deformity. No lesions are appreciated. Cardiovascular: Regular rate and rhythm with a normal S1 and S2. No gallops, murmurs, or rubs. Normal PMI, no JVD. No pulse deficits. Respiratory: Lungs have equal breath sounds bilaterally, clear to auscultation and percussion. No rales, rhonchi or wheezes noted. No increased work of breathing, no retractions or nasal flaring. Abdomen/GI: Soft, non-tender, with normal bowel sounds. No distension or tympany. No guarding or rebound. No evidence of tenderness throughout. Female : Normal external genitalia. Skin: Warm, dry with normal turgor. Normal color with no rashes, no lesions, and no evidence of cellulitis. MS/ Extremity: Pulses equal, no cyanosis. Neurovascular intact. Full, normal range of motion. Neuro: Awake and alert, GCS 15, oriented to person, place, time, and situation. Cranial nerves II-XII grossly intact. Motor strength 5/5 in all extremities. Sensory grossly intact. Cerebellar exam normal. Normal gait. Psych: Awake, alert, with orientation to person, place and time. Behavior, mood, and affect are within normal limits. 23:57 Back: pain, that is mild, ROM is painful, normal spinal alignment noted, CVA tenderness, is absent, muscle spasm, is appreciated in the left low back. Vital Signs: 23:37 BP 137 / 85; Pulse 91; Resp 17 S; Temp 98.0(O); Pulse Ox 97% on R/A; Weight 99.79 kg lg3 (R); Height 5 ft. 5 in. (165.10 cm) (R); Pain 7/10; 01/08 00:39 BP 126 / 77; Pulse 90; Resp 16 S; Pulse Ox 97% on R/A; Pain 8/10; al4 01:15 BP 129 / 78; Pulse 93; Resp 18 S; Pulse Ox 98% on R/A; al4 01/07 23:37 Body Mass Index 36.61 (99.79 kg, 165.10 cm) lg3 MDM: 01/07 23:34 Patient medically screened. lena 23:58 Differential diagnosis: contusion, tendonitis. Data reviewed: vital signs, nurses lena notes, lab test result(s), radiologic studies, doppler. Data interpreted: compliance monitor: not applicable for this patient encounter. rate is 91 beats/min, rhythm is regular, Pulse oximetry: on room air is 97 %. Counseling: I had a detailed discussion with the patient and/or guardian regarding: the historical points, exam findings, and any diagnostic results supporting the discharge/admit diagnosis, lab results, radiology results. 01/07 23:57 Order name: Extremity Venous Unilateral Ltd lena Administered Medications: 01/08 00:37 Drug: Ketorolac 60 mg Route: IM; Site: left gluteus; al4 01:17 Follow up: Response: No adverse reaction al4 00:38 Drug: Demerol (meperidine) 50 mg Route: IM; Site: right gluteus; al4 01:16 Follow up: Response: No adverse reaction; RASS: Alert and Calm (0) al4 00:38 Drug: Phenergan (promethazine) 25 mg Route: IM; Site: right gluteus; al4 01:16 Follow up: Response: No adverse reaction al4 Disposition Summary: 01/08/22 00:30 Discharge Ordered Location: Home lena Problem: new lena Symptoms: have improved lena Condition: Stable lena Diagnosis - Sciatica, left side lena - Pain in left leg lena Followup: lena - With: Private Physician - When: 2 - 3 days - Reason: Recheck today's complaints, Continuance of care, Re-evaluation by your physician Followup: lena - With: - When: 2 - 3 days - Reason: Recheck today's complaints, Re-evaluation by your physician Discharge Instructions: - Discharge Summary Sheet lena - Musculoskeletal Pain lena - Sciatica lena - Sciatica, [id number] lena - Radicular Pain lena Forms: - Medication Reconciliation Form lena - Thank You Letter lena - Antibiotic Education lena - Prescription Opioid Use lena Signatures: Dispatcher [employer] EDLudwin Portillo MD MD cha Gibson, Lacie, RN RN lg3 Frank Urena
--- NOTE | 2022-01-08 00:31 | ER ---
Nurse's Notes [facility] Name: Lizbet Solares Age: 56 yrs Sex: Female : 1965 Arrival Date: 01/07/2022 Time: 22:59 Bed 14 Private MD: Diagnosis: Sciatica, left side;Pain in left leg Presentation: 01/07 23:37 Chief complaint: Patient states: back surgery 5 weeks ago. extreme left leg pain. can lg3 hardly walk. continues to trip. cannot sleep. Coronavirus screen: Client denies travel out of the [place] in the last 14 days. At this time, the client does not indicate any symptoms associated with coronavirus-19. Ebola Screen: No symptoms or risks identified at this time. Initial Sepsis Screen: Does the patient meet any 2 criteria? No. Patient's initial sepsis screen is negative. Does the patient have a suspected source of infection? No. Patient's initial sepsis screen is negative. Risk Assessment: Do you want to hurt yourself or someone else? Patient reports no desire to harm self or others. Onset of symptoms is unknown. 23:37 Method Of Arrival: Wheelchair lg3 23:37 Acuity: NAFISA 4 lg3 Triage Assessment: 23:39 General: Appears in no apparent distress. comfortable, Behavior is calm, cooperative. lg3 Pain: Complains of pain in left leg Pain currently is 7 out of 10 on a pain scale. EENT: No deficits noted. No signs and/or symptoms were reported regarding the EENT system. Neuro: No deficits noted. Level of Consciousness is awake, alert, obeys commands, Oriented to person, place, time, situation. Cardiovascular: No deficits noted. Denies chest pain, lightheadedness, shortness of breath, Capillary refill < 3 seconds Clubbing of nail beds is absent JVD is absent Patient's skin is warm and dry. Respiratory: No deficits noted. Airway is patent Trachea midline Respiratory effort is even, unlabored, Respiratory pattern is regular, symmetrical. GI: No deficits noted. No signs and/or symptoms were reported involving the gastrointestinal system. : No deficits noted. No signs and/or symptoms were reported regarding the genitourinary system. Derm: No deficits noted. No signs and/or symptoms reported regarding the dermatologic system. Skin is intact, is healthy with good turgor, Skin is dry. Musculoskeletal: Reports weakness in left leg pain in left leg. Historical: - Allergies: 23:39 No Known Allergies; lg3 - Home Meds: 23:39 Advil Oral [Active]; lg3 - PMHx: 23:39 Anxiety; Depression; Hypertension; lg3 - PSHx: 23:39 bilateral heels; decompression of vertebrae; partial thyroidectomy; lg3 - Immunization history:: Adult Immunizations up to date, Client reports receiving the 2nd dose of the Covid vaccine, moderna X2. - Social history:: Smoking status: Patient denies any tobacco usage or history of. Patient/guardian denies using alcohol. Screenin:41 Abuse screen: Denies threats or abuse. Denies injuries from another. Nutritional lg3 screening: No deficits noted. Tuberculosis screening: No symptoms or risk factors identified. Fall Risk Gait- Impaired (20 pts.). Assessment: 01/08 00:38 General: Appears in no apparent distress. uncomfortable, Behavior is calm, cooperative. al4 Pain: Complains of pain in left leg Pain currently is 8 out of 10 on a pain scale. Neuro: Level of Consciousness is awake, alert, obeys commands, Oriented to person, place, time, situation. Cardiovascular: Capillary refill < 3 seconds Patient's skin is warm and dry. Respiratory: Airway is patent Respiratory effort is unlabored, Respiratory pattern is regular. Musculoskeletal: Circulation, motion, and sensation intact. 00:48 Reassessment: patient states her sister will be giving her a ride home. al4 01:14 Reassessment: patient will be discharged home with a ride from andreia Jaimes. al4 01:42 Reassessment: patient left with ride from Theodore. al4 Vital Signs: 01/07 23:37 BP 137 / 85; Pulse 91; Resp 17 S; Temp 98.0(O); Pulse Ox 97% on R/A; Weight 99.79 kg lg3 (R); Height 5 ft. 5 in. (165.10 cm) (R); Pain 7/10; 01/08 00:39 BP 126 / 77; Pulse 90; Resp 16 S; Pulse Ox 97% on R/A; Pain 8/10; al4 01:15 BP 129 / 78; Pulse 93; Resp 18 S; Pulse Ox 98% on R/A; al4 01/07 23:37 Body Mass Index 36.61 (99.79 kg, 165.10 cm) lg3 ED Course: 01/07 22:59 Patient arrived in ED. kz 23:34 Ludwin Royal MD is Attending Physician. lena 23:39 Triage completed. lg3 23:39 Arm band placed on left wrist. lg3 23:58 Frank Urena is Primary Nurse. al4 01/08 00:28 US Extremity Venous Unilateral Ltd In Process Unspecified. EDMS 00:30 Jhony Martines MD is Referral Physician. lena 00:39 Bed in low position. Side rails up X2. Pulse ox on. NIBP on. al4 01:14 No provider procedures requiring assistance completed. Patient did not have IV access al4 during this emergency room visit. Administered Medications: 00:37 Drug: Ketorolac 60 mg Route: IM; Site: left gluteus; al4 01:17 Follow up: Response: No adverse reaction al4 00:38 Drug: Demerol (meperidine) 50 mg Route: IM; Site: right gluteus; al4 01:16 Follow up: Response: No adverse reaction; RASS: Alert and Calm (0) al4 00:38 Drug: Phenergan (promethazine) 25 mg Route: IM; Site: right gluteus; al4 01:16 Follow up: Response: No adverse reaction al4 Outcome: 00:30 Discharge ordered by . lena 01:14 Discharged to home ambulatory, with ride from Theodore (SON) al4 01:14 Condition: stable 01:14 Discharge instructions given to patient, Instructed on discharge instructions, follow up and referral plans. Demonstrated understanding of instructions, follow-up care. 01:42 Patient left the ED. al4 Signatures: Dispatcher [employer] EDNV Ludwin Royal MD MD cha Gibson, Lacie, RN RN 3 Frank Urena al4 Katya Galaviz
[2022-01-08 02:32] VITALS: TEMP 98
[2022-01-08 02:35] VITALS: BP 129/78; O2SAT 98
--- NOTE | 2022-01-08 09:35 | RAD REPORT ---
EXAM DESCRIPTION: US - Extremity Venous [facility] - 01/08/2022 1:06 am CLINICAL HISTORY: 56 years Female, left lower extremity pain TECHNIQUE: Sagittal and axial beard scale and color Doppler images, including compression images, obt ained of the left common femoral, femoral, popliteal, posterior tibial veins. Doppler wave forms fr om the segments also recorded. Doppler and color Doppler interrogation performed of the saphenofemo ral junction. COMPARISON: None. FINDINGS: Color Doppler and beard scale imaging of the left lower extremity deep venous structures de monstrate no evidence of intraluminal thrombus. Normal compressibility of all deep venous segments. Normal phasic Doppler wave forms, which demonstrate normal augmentation response and normal direct ional flow. Calf veins: Venous flow demonstrated in the imaged segments. IMPRESSION: 1. Negative for left lower extremity deep venous thrombosis. Electronically signed by: Quinton Cortés MD 01/08/2022 12:36 AM CDT Due to temporary technical issues with the PACS/Fluency reporting system, reports are being signed by the in house radiologist without review as a courtesy to ensure prompt reporting. The interpreting r adiologist is fully responsible for the content of the report.
== END 2022-01-08 01:42 | disposition home or self-care (01) ==
LOC: ER 22:58
DX: M54.32 Sciatica, left side (principal); I10 Essential (primary) hypertension; F41.8 Other specified anxiety disorders
CPT/HCPCS: 93971; 96372; 99283; J2550; J2175

== ENCOUNTER 2022-01-08 09:20 | Emergency (ER) | payer BC ==
--- OUTSIDE RECORDS SUMMARY | 2022-01-08 09:26 | XMS REPORT | Continuity of Care Document ---
:1965 Author Organization [facility] t Address [address] [place] [address] Care Team Providers Name Role Phone Amy [...] Expiration Date S ourradha HIM BCBS BLUE [id number] 2019 ADVANTAGE O 00:00:00 Advance Directives Directive Decision Effective Termination Comments Source Date Date Healthcare Agents on N/A [facility] Agent Medical RelationshipCommunicationGood [facility] OrandMotherHealth Care [phone] (Home) Problems Condition Condition Condition Status Onset [...] of hypothyroi hypothyroi 00:00: g of this [place] dism dism 00 note Medical might be [...] Active Univers ALLERGIE Class ity of S [facility] NO KNOWN Allergy Active [facility] ALLERGIE S Social History Social Habit Start Date Stop Date Quantity Comments Source Exposure to Unable to assess Univers ity of SARS-CoV-2 [place] Medical (event) Branch History SDAL University o f Alcohol Frequency [place] M edical Branch History [facility] o f Alcohol Std [place] Medical Drinks Branch History [facility] o f Alcohol Binge [facility] al [place] Alcohol intake 2021-11-12 2021-11-12 Ex-drinker [facility] 00:00:00 00:00:00 (finding) [facility] Tobacco use and 2021-10-21 2021-10-21 Never used Universit y of exposure 00:00:00 00:00:00 [facility] Alcohol Comment 2021-10-21 2021-10-21 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 [address] ARIPiprazol Yes 5mg Take 5 mg U nivers e (ABILIFY) 2-02 by mouth ity of 5 mg tablet 14:14: daily. [address] ARIPiprazol Yes 5mg Take 5 mg U nivers e (ABILIFY) 2-02 by mouth ity of 5 mg tablet 14:14: daily. [address] ARIPiprazol 0 Yes 5mg Take 5 mg U nivers e (ABILIFY) 2-02 by mouth ity of 5 mg tablet 14:14: daily. [address] ARIPiprazol 0 Yes 5mg Take 5 mg U nivers e (ABILIFY) 2-02 by mouth ity of 5 mg tablet 14:14: daily. [address] ARIPiprazol Yes 5mg Take 5 mg U nivers e (ABILIFY) 2-02 by mouth ity of 5 mg tablet 14:14: daily. [address] omeprazole Yes [id number] 20mg Take 1 Univers 20 mg 1-11 capsule by ity of capsule 00:00: mouth [place] 00 daily. Medical Branch liothyronin Yes [id number] 5ug Take 1 Univers e 5 mcg 1-11 tablet by ity of tablet 00:00: mouth 2 [place] 00 (two) Medical times Branch daily. SYNTHROID Yes [id number] 75ug Take 1 U nivers 75 mcg 1-11 tablet by ity of tablet 00:00: mouth [place] 00 every Medical morning. Branch BRAND MEDICALLY NECESSARY metoprolol 0 Yes [id number] 100mg Take 1 Univers succinate 1-11 tablet by ity o f XL 100 mg 00:00: mouth [place] 24 hr 00 daily. Medical tablet Branch felodipine 0 Yes [id number] 5mg Take 1 U nivers 5 mg 24 hr 1-11 tablet by ity of tablet 00:00: mouth at [place] 00 bedtime. Medical Branch rosuvastati 0 Yes [id number] 20mg Take 1 Univers n 20 mg 1-11 tablet by ity of tablet 00:00: mouth at [place] 00 bedtime. Medical Branch omeprazole 0 Yes [id number] 20mg Take 1 Univers 20 mg 1-11 capsule by ity of capsule 00:00: mouth [place] 00 daily. Medical Branch liothyronin 0 Yes [id number] 5ug Take 1 Univers e 5 mcg 1-11 tablet by ity of tablet 00:00: mouth 2 [place] 00 (two) Medical times Branch daily. SYNTHROID 0 Yes [id number] 75ug Take 1 U nivers 75 mcg 1-11 tablet by ity of tablet 00:00: mouth [place] 00 every Medical morning. Branch BRAND MEDICALLY NECESSARY metoprolol 0 Yes [id number] 100mg Take 1 Univers succinate 1-11 tablet by ity o f XL 100 mg 00:00: mouth [place] 24 hr 00 daily. Medical tablet Branch felodipine Yes [id number] 5mg Take 1 U nivers 5 mg 24 hr 1-11 tablet by ity of tablet 00:00: mouth at [place] 00 bedtime. Medical Branch rosuvastati Yes [id number] 20mg Take 1 Univers n 20 mg 1-11 tablet by ity of tablet 00:00: mouth at [place] 00 bedtime. Medical Branch omeprazole Yes [id number] 20mg Take 1 Univers 20 mg 1-11 capsule by ity of capsule 00:00: mouth [place] 00 daily. Medical Branch liothyronin Yes [id number] 5ug Take 1 Univers e 5 mcg 1-11 tablet by ity of tablet 00:00: mouth 2 (two) Medical times Branch daily. SYNTHROID Yes [id number] 75ug Take 1 U nivers 75 mcg 1-11 tablet by ity of tablet 00:00: mouth [place] 00 every Medical morning. Branch BRAND MEDICALLY NECESSARY metoprolol 0 Yes [id number] 100mg Take 1 Univers succinate 1-11 tablet by ity o f XL 100 mg 00:00: mouth [place] 24 hr 00 daily. Medical tablet Branch felodipine Yes [id number] 5mg Take 1 U nivers 5 mg 24 hr 1-11 tablet by ity of tablet 00:00: mouth at [place] 00 bedtime. Medical Branch rosuvastati Yes [id number] 20mg Take 1 Univers n 20 mg 1-11 tablet by ity of tablet 00:00: mouth at [place] 00 bedtime. Medical Branch omeprazole 0 Yes [id number] 20mg Take 1 Univers 20 mg 1-11 capsule by ity of capsule 00:00: mouth [place] 00 daily. Medical Branch liothyronin 0 Yes [id number] 5ug Take 1 Univers e 5 mcg 1-11 tablet by ity of tablet 00:00: mouth 2 [place] 00 (two) Medical times Branch daily. SYNTHROID 2021-0 Yes [id number] 75ug Take 1 U nivers 75 mcg 1-11 tablet by ity of tablet 00:00: mouth [place] 00 every Medical morning. Branch BRAND MEDICALLY NECESSARY metoprolol 2021-0 Yes [id number] 100mg Take 1 Univers succinate 1-11 tablet by ity o f XL 100 mg 00:00: mouth [place] 24 hr 00 daily. Medical tablet Branch felodipine 2021-0 Yes [id number] 5mg Take 1 U nivers 5 mg 24 hr 1-11 tablet by ity of tablet 00:00: mouth at [place] 00 bedtime. Medical Branch rosuvastati 0 Yes [id number] 20mg Take 1 Univers n 20 mg 1-11 tablet by ity of tablet 00:00: mouth at [place] 00 bedtime. Medical Branch omeprazole 2021-0 Yes [id number] 20mg Take 1 Univers 20 mg 1-11 capsule by ity of capsule 00:00: mouth [place] 00 daily. Medical Branch liothyronin 0 Yes [id number] 5ug Take 1 Univers e 5 mcg 1-11 tablet by ity of tablet 00:00: mouth 2 [place] (two) Medical times Branch daily. SYNTHROID 2021-0 Yes [id number] 75ug Take 1 U nivers 75 mcg 1-11 tablet by ity of tablet 00:00: mouth [place] 00 every Medical morning. Branch BRAND MEDICALLY NECESSARY metoprolol 2021-0 Yes [id number] 100mg Take 1 Univers succinate 1-11 tablet by ity o f XL 100 mg 00:00: mouth [place] 24 hr 00 daily. Medical tablet Branch felodipine 2021-0 Yes [id number] 5mg Take 1 U nivers 5 mg 24 hr 1-11 tablet by ity of tablet 00:00: mouth at [place] 00 bedtime. Medical Branch rosuvastati 2021-0 Yes [id number] 20mg Take 1 Univers n 20 mg 1-11 tablet by ity of tablet 00:00: mouth at [place] 00 bedtime. Medical Branch omeprazole 2021-0 Yes [id number] 20mg Take 1 Univers 20 mg 1-11 capsule by ity of capsule 00:00: mouth [place] 00 daily. Medical Branch liothyronin Yes [id number] 5ug Take 1 Univers e 5 mcg 1-11 tablet by ity of tablet 00:00: mouth 2 [place] 00 (two) Medical times Branch daily. SYNTHROID Yes [id number] 75ug Take 1 U nivers 75 mcg 1-11 tablet by ity of tablet 00:00: mouth [place] 00 every Medical morning. Branch BRAND MEDICALLY NECESSARY metoprolol Yes [id number] 100mg Take 1 Univers succinate 1-11 tablet by ity o f XL 100 mg 00:00: mouth [place] 24 hr 00 daily. Medical tablet Branch felodipine Yes [id number] 5mg Take 1 U nivers 5 mg 24 hr 1-11 tablet by ity of tablet 00:00: mouth at [place] 00 bedtime. Medical Branch rosuvastati Yes [id number] 20mg Take 1 Univers n 20 mg 1-11 tablet by ity of tablet 00:00: mouth at [place] 00 bedtime. Medical Branch buPROPion 0 Yes [...] Immunizations Ordered Filled Immunization Date Status Comments [facility] e Immunization Name Name SARS-COV-2 COVID-19 2021-10-21 Completed Unive rsity of MODERNA BOOSTER 00:00:00 [place] Med ical VACCINE Branch SARS-COV-2 COVID-19 2021-10-21 Completed Unive rsity of MODERNA BOOSTER 00:00:00 [facility] ical VACCINE Branch SARS-COV-2 COVID-19 2021-10-21 Completed Unive rsity of MODERNA BOOSTER 00:00:00 [facility] ical VACCINE Branch SARS-COV-2 COVID-19 2021-10-21 Completed Unive rsity of MODERNA BOOSTER 00:00:00 [facility] ical VACCINE Branch SARS-COV-2 COVID-19 2021-10-21 Completed Unive rsity of MODERNA BOOSTER 00:00:00 [facility] ical VACCINE Branch SARS-COV-2 COVID-19 2021-10-21 Completed Unive rsity of MODERNA BOOSTER 00:00:00 [facility] ical VACCINE Branch SARS-COV-2 COVID-19 2021-01-15 Completed Unive rsity of MODERNA VACCINE 00:00:00 [facility] ical Branch SARS-COV-2 COVID-19 2021-01-15 Completed Unive rsity of MODERNA VACCINE 00:00:00 [facility] ical Branch SARS-COV-2 COVID-19 2021-01-15 Completed Unive rsity of MODERNA VACCINE 00:00:00 [facility] ical Branch SARS-COV-2 COVID-19 2021-01-15 Completed Unive rsity of MODERNA VACCINE 00:00:00 [facility] ical Branch SARS-COV-2 COVID-19 2021-01-15 Completed Unive rsity of [facility]ERNA [facility]ACC[facility]00[facility] SARS-COV-2 COVID-19 2021-01-15 Completed Unive rsity of MODERNA VACCINE 00:00:00 [facility] Branch SARS-COV-2 COVID-19 2020-12-18 Completed Unive rsity of MODERNA VACCINE 00:00:00 [facility] Branch SARS-COV-2 COVID-19 2020-12-18 Completed Unive rsity of MODERNA VACCINE 00:00:00 [facility] Branch SARS-COV-2 COVID-19 2020-12-18 Completed Unive rsity of MODERNA VACCINE 00:00:00 [facility] Branch SARS-COV-2 COVID-19 2020-12-18 Completed Unive rsity of MODERNA VACCINE 00:00:00 [facility] Branch SARS-COV-2 COVID-19 2020-12-18 Completed Unive rsity of MODERNA VACCINE 00:00:00 [facility] Branch SARS-COV-2 COVID-19 2020-12-18 Completed Unive rsity of MODERNA VACCINE 00:00:00 [facility] Vital Signs Vital Name Observation Time Observation Value Comments Source Systolic blood 2021-12-29 19:52:00 139 mm[Hg] Univer sity of pressure [facility] Diastolic blood 2021-12-29 19:52:00 86 mm[Hg] Unive rsity of pressure [facility] Heart rate 2021-12-29 19:52:00 83 /min [facility] Body temperature 2021-12-29 19:52:00 36.67 [facility] Respiratory rate 2021-12-29 19:52:00 18 /min [facility] Body weight 2021-12-29 19:52:00 109.77 kg [facility] BMI 2021-12-29 19:52:00 40.27 kg/m2 [facility] Oxygen saturation in 2021-12-29 19:52:00 98 /min [facility] blood by [facility] Pulse oximetry Branch Procedures Procedure Date / Time Performing Clinician Source Performed XR ANKLE 3+ VW LEFT 2021-12-29 21:20:00 Faustino Holt [facility] DUPLEX VENOUS LEG LEFT - 2021-12-29 20:41:00 [facility] CONSENT/REFUSAL FOR 2021-12-29 19:34:01 Doctor Pimentel [facility] DIAGNOSIS AND TREATMENT [place] [facility] EXTERNAL PROVIDER RECORDS 2021-12-22 05:01:00 Doctor Pimentel [facility] [place] [facility] INSURANCE CORRESPONDENCE 2021-12-10 06:01:00 Doctor Pimentel [facility] [place] [facility] Encounters Start End Encounter Admission Attending Care Care Encounter Source Date/Time Date/Time Type Type Clinicians Facility Department ID 2021-12-29 2021-12-29 Emergency X YANET [facility] ERT [id number] [facility] [place] [facility] 14:55:00 16:47:00 FAUSTINO leigh [facility] 2021-12-29 2021-12-29 Emergency Yanet [facility] [id number] [facility] [place] [facility] 14:55:00 16:47:00 Faustino ALMAZAN [id number] i ty [facility] [id number] [place] [facility] [id number] [facility] 084 [place] 2021-12-29 2021-12-29 Telephone Ruperto [facility] [id number] Univers 00:00:00 00:00:00 Wondiful A HEALTH [id number] ity of [place] [id number] Branden as EL?BLEA [phone] [address] MEDICAL OFFICE BUILDING 2021-12-22 2021-12-22 Orders Doctor VANCE [id number] Univers 00:00:00 00:00:00 Only Unassigned, HUDSON [id number] ity of [place] [facility] 4.2.7.2.686 Branden as [id number] [facility] 009 Branch 2021-12-10 2021-12-10 Orders Doctor VANCE [id number] [id number] Univers 00:00:00 00:00:00 Only Unassigned, HUDSON 350.1.13.10 ity of [place] [facility] 4.2.7.2.686 Branden as [id number] [facility] 009 Branch 2021-12-01 2021-12-01 Telephone Tanja [facility] 1.2.840.114 [id number] Univers 00:00:00 00:00:00 Parminder Hernández HALEYJCARLOS [id number] ity of [place]7.2.686 [place] PROF[place] [id number] Az dical NAL 085 [facility] 2020-10-01 2020-10-01 Emergency Zachary Mcnamara [facility] 1.2.840.114 [id number] 15:38:00 17:19:00 Pamela Almazan [id number] [place] 4.2.7.2.686 [place] [id number] 2020-10-01 2020-10-01 Orders Doctor PINKY 1.2.840.114 [id number] 00:00:00 00:00:00 Only Unassigned, HUDSON 350.1.13.10 [facility] 4.2.7.2.686 [id number] 009 2020-04-23 2020-07-03 Laboratory Only, Web [facility] [id number] 09:22:46 08:51:45 Only Test Health 350.1.13.10 Specialty 4.2.7.2.686 [facility] [id number] [place] [id number] 2020-02-08 2020-02-08 Outpatient [facility] [id number] 2-2 [facility] 00:00:00 00:00:00 [id number] Results Test Description Test Time Test Comments Results Result [facility] e Comments US, THYROID 2020-02-08 Reason for FINAL REPORT PATIENT 14:13:00 Exam:->HX OF ID: [id number] PARTIAL Thyroid Ultrasound HYPROIDECTOY History: Partial thyroidectomy [...] MDReport Verified Date/Time: 02/08/2020 14:13:43 Reading Location: [facility] Diagnostic Imaging Reading Room - [place] [address] D CULTURE 2018-04-09 00:00:00 Test Item Value Reference Range Interpretation Comme nts CULTURE (BEAKER) (test code = 1095) No growth in 5 days BLOOD [id number] 00:00:00 Test Item Value Reference Range Interpretation Comments CULTURE (BEAKER) (test No growth in 5 days code = 1095) BASIC METABOLIC [id number] 11:06:00 Test Item Value Reference Range Interpretation [...] TO CALCULA TE ESTIMATED GFR. BASIC METABOLIC [id number] 07:36:00 Test Item Value Reference Range Interpretation [...] TO CALCULA TE ESTIMATED GFR. BASIC METABOLIC [id number] 19:50:00 Test Item Value Reference Range Interpretation [...] TO CALCULA TE ESTIMATED GFR. BASIC METABOLIC [id number] 08:59:00 Test Item Value Reference Range Interpretation [...] TO CALCULA TE ESTIMATED GFR. BASIC METABOLIC [id number] 01:18:00 Test Item Value Reference Range Interpretation [...] TO CALCULA TE ESTIMATED GFR. BASIC METABOLIC [id number] 16:32:00 Test Item Value Reference Range Interpretation [...] TO CALCULA TE ESTIMATED GFR. U/S, ABDOMINAL, [id number] 14:54:00Abdomen limited area? Add comment if clarification [...] MDReport Verified Date/Time: 04/05/2018 14:54:01 Reading Location: [address] Ultrasound Reading Room HEPATIC FUNCTION [id number] 14:03:00 Test Item Value Reference Range Interpretation [...] = 21 U/L 6-55 347) BASIC METABOLIC [id number] 09:16:00 Test Item Value Reference Range Interpretation [...] ESTIMATED GFR. CBC W/PLT COUNT & AUTO [id number] 08:44:00 Test Item Value Reference Range Interpretation [...] (BEAKER) (test code = 2801) BASIC METABOLIC [id number] 01:06:00 Test Item Value Reference Range Interpretation [...] m DATA TO CALCULA TE ESTIMATED GFR. [id number] 18:02:00 Test Item Value Reference Range Interpretation Comments AMMONIA (BEAKER) (test code = 348) 35 mol/L 18-72 BASIC METABOLIC [id number] 17:31:00 Test Item Value Reference Range Interpretation [...] TO CALCULA TE ESTIMATED GFR. BASIC METABOLIC [id number] 09:29:00 Test Item Value Reference Range Interpretation [...] TO CALCULA TE ESTIMATED GFR. BLOOD GAS, [id number] 05:19:00 Test Item Value Reference Range Interpretation [...] C (test code = 1818) BASIC METABOLIC [id number] 03:52:00 Test Item Value Reference Range Interpretation [...] m DATA TO CALCULA TE ESTIMATED GFR. [id number] 03:48:00 Test Item Value Reference Range Interpretation Comments PHOSPHORUS (BEAKER) (test code = 3.6 mg/dL 2.3-4.7 604) [id number] 03:48:00 Test Item Value Reference Range Interpretation Comments MAGNESIUM (BEAKER) (test code = 2.1 mg/dL 1.6-2.6 627) LACTIC ACID, VENOUS, WHOLE [id number] 03:44:00 Test Item Value Reference Range Interpretation [...] WBC 0-0 (BEAKER) (test code = 413) [id number] 02:06:00 Test Item Value Reference Range Interpretation Comments CORTISOL, TOTAL (BEAKER) (test 17.8 ug/dL 3.7-19.4 code = 2755) TSH/FREE T4 IF [id number] 02:06:00 Test Item Value Reference Range Interpretation Comments THYROID STIMULATING HORMONE 1.09 uIU/mL 0.35-4.94 (BEAKER) (test code = 772) HIV-1 ANTIGEN WITH HIV-1/2 [id number] 00:06:00 Test Item Value Reference Range Interpretation Comments HIV-1 ANTIGEN WITH HIV 1\T\2 Nonreactive Nonreactive ANTIBODY (2) (BEAKER) (test code = 2586) BASIC METABOLIC [id number] 23:30:00 Test Item Value Reference Range Interpretation [...] ESTIMATED GFR. RAD, CHEST, 1 VIEW, NON [id number] 21:34:00Reason for exam:->ALTERED MENTAL STATUSReason for exam:->NEUROLOGIC [...] MDReport Verified Date/Time: 04/03/2018 21:34:48 Reading Location: [address] Reading Room OSMOLALITY, [id number] 21:10:00 Test Item Value Reference Range Interpretation Comments OSMOLALITY, SERUM (BEAKER) (test 236 mOsm/kg 275-295 L code = 615) RAPID DRUG SCREEN, [id number] 20:47:00 Test Item Value Reference Range Interpretation [...] situations. Chain of custody not maintained. Some jckg-wpq-gwnaqcp medications, as well as adulterants, may cause inaccurate results. Clinical correlation should be applied. A more comprehensive drug screen or confirmation of a detected drug may be performed upon request.[id number] 20:43:00 Test Item Value Reference Range Interpretation Comments PHOSPHORUS (BEAKER) (test code = 1.8 mg/dL 2.3-4.7 L 604) HEPATIC FUNCTION [id number] 20:43:00 Test Item Value Reference Range Interpretation [...] (test code = 22 U/L 6-55 347) [id number] 20:43:00 Test Item Value Reference Range Interpretation Comments LIPASE (BEAKER) (test code = 749) 21 U/L 8-78 CREATININE, RANDOM [id number] 20:40:00 Test Item Value Reference Range Interpretation Comments CREATININE URINE (BEAKER) (test 11.7 mg/dL code = 375) Reference Range: No NormalsSODIUM, RANDOM [id number] 20:40:00 Test Item Value Reference Range Interpretation Comments SODIUM URINE (BEAKER) (test code = 60 meq/L 243) Reference Range: No NormalsOSMOLALITY, [id number] 20:40:00 Test Item Value Reference Range Interpretation Comments OSMOLALITY URINE (BEAKER) (test 169 mOsm/kg 40-1400 code = 614) [id number] 20:37:00 Test Item Value Reference Range Interpretation Comments ETHANOL (BEAKER) (test code = 400) < mg/dL <=10 [id number] 20:35:00 Test Item Value Reference Range Interpretation Comments AMMONIA (BEAKER) (test code = 348) 33 mol/L 18-72 MR, MRA, BRAIN, WITHOUT [id number] 19:42:00FINAL REPORT MRA head and neck without contrast. CLINICAL HISTORY: Stroke. CO MPARISON: None. TECHNIQUE: Two- and three-dimensional pmhv-ni-segxql MRA images of the intra- and extracranial [...] right common carotid artery (image 1). MRA [place]: There is no vessel occlusion, [...] Leela Ventura Verified Date/Time: 04/03/201819:42:20 Reading Location: [address] Reading Room MR, MRA, NECK, WITHOUT IV [id number] 19:42:00FINAL REPORT MRA head and neck without contrast. CLINICAL HISTORY: Stroke. COMPARISON: None. TECHNIQUE: Two- and three-dimensional fnve-ng-ptbxkf MRA images of the intra- and extracranial [...] right common carotid artery (image 1). MRA [place]: There is no vessel occlusion, [...] Leela MDReport Verified Date/Time: 04/03/201819:42:20 Reading Location: [address] Transitional Reading Room CREATINE KINASE (CK), TOTAL AND [id number] 19:36:00 Test Item Value Reference Range Interpretation Comments CREATINE KINASE TOTAL (BEAKER) 103 U/L 29-200 (test code = 380) CREATINE KINASE-MB (BEAKER) (test 2.5 ng/mL 0.0-6.6 code = 750) CREATINE KINASE-MB INDEX (BEAKER) 2.4 % (test code = 395) CK-MB Reference Range:<6.7 Normal6.7-10.0 Borderline>10.0 AbnormalTROPONIN [id number] 19:36:00 Test Item Value Reference Range Interpretation [...] neurological disease, and persistent tachyarrhythmia.MR, BRAIN, WITHOUT [id number] 19:34:00FINAL REPORT Exam: MRI brain without contrast. [...] Verified Date/Time: 04/03/2018 19:34:38 Reading Locat ion: [facility] B1 C013T Transitional Reading Room Electronically signed by: LEELA VENTURA MD on04/03/2018 07:34 PMB-TYPE NATRIURETIC FACTOR (BNP)2018-04-03 19:33:00 Test Item Value Reference Range Interpretation Comments B-TYPE NATRIURETIC PEPTIDE (BEAKER) 90 pg/mL 0-100 (test code = 700) URINALYSIS W/ [id number] 18:43:00 Test Item Value Reference Range Interpretation [...] 520) SOURCE(BEAKER) (test code = Urine, [place] 1703) BASIC METABOLIC [id number] 18:32:00 Test Item Value Reference Range Interpretation [...] m DATA TO CALCULA TE ESTIMATED GFR. [id number] 18:28:00 Test Item Value Reference Range Interpretation Comments MAGNESIUM (BEAKER) (test code = 1.7 mg/dL 1.6-2.6 627) [id number] 18:02:00 Test Item Value Reference Range Interpretation [...] PERCENT (BEAKER) (test code = 2801) POCT-GLUCOSE [id number] 17:49:00 Test Item Value Reference Range Interpretation Comments POC-GLUCOSE METER 100 mg/dL 70-110 TESTED AT [facility] 6720 ([facility]) (test code = [place] 1538) [address] CT, BRAIN/STROKE [id number] 17:45:00Reason for exam:->stroke protocolIs the patient ?->NoWhat [...] [place] at 1740 hours. Signed: Nolan Pretty MDRdawoodort Verified Date/Time: 04/03/2018 17:45:48 Reading Location: [address] Reading Room
[2022-01-08 10:11] LABS: Absolute Lymphocytes (CBC) 1.2 K/uL (0.7-4.9); Hematocrit 36.3 % (36.0-45.0); MPV 6.2 fL (7.6-11.3); RBC Red Blood Cell Count 4.16 M/uL (3.86-4.86)
--- NOTE | 2022-01-08 10:21 | RAD REPORT ---
EXAM DESCRIPTION: CT - Head Brain Wo Cont - 01/08/2022 10:03 am CLINICAL HISTORY: Alteration of awareness/confusion COMPARISON: 2020 TECHNIQUE: Computed axial tomography of the head was obtained. IV contrast was not requested. All CT scans are performed using dose optimization technique as appropriate and may include automated exposure control or mA/KV adjustment according to patient size. FINDINGS: An intracranial bleed is not seen . The ventricles are normal in caliber. No extra-axial fluid collection is noted. No significant hypodense areas within the brain Fluid within the sinuses/ mastoids is not seen. Mucus retention cyst left maxillary sinus IMPRESSION: No acute intracranial abnormality is seen. If patient's symptoms persist MRI of the bra in would be recommended.
[2022-01-08 11:05] LABS: Urine Blood Negative (Negative); Urine Glucose Negative (Negative); Urine Protein Negative (Negative)
[2022-01-08 11:34] LABS: Urine Bacteria >50 /HPF (<20); Urine RBC NONE SEEN /HPF (NONE SEEN)
[2022-01-08 11:53] LABS: Potassium 3.9 mmol/L (3.5-5.1)
--- NOTE | 2022-01-08 12:38 | RAD REPORT ---
EXAM DESCRIPTION: MRI - Brain Wo Cont - 01/08/2022 12:28 pm CLINICAL HISTORY: Confusion COMPARISON: Head CT January 08, 2022 TECHNIQUE: Axial, sagittal, and coronal magnetic resonance images of the brain were obtained. FINDINGS: No significant abnormal signal within the brain. Diffusion-weighted/ADC mapping does not reveal evidence of acute infarction. The ventricles are normal caliber. An extra-axial fluid collection is not noted. Fluid within the sinuses/mastoids is not seen. Mucous retention cyst left maxillary sinus IMPRESSION: No acute intracranial abnormality noted
--- NOTE | 2022-01-08 12:52 | EDPHYS ---
Physician Documentation [facility] Name: Lizbet Solares Age: 56 yrs Sex: Female : 1965 Arrival Date: 01/08/2022 Time: 09:23 Bed 4 Private MD: ED Physician Dudley Cruz HPI: 01/08 10:07 This 56 yrs old Female presents to ER via Wheelchair with complaints of Confusion, Leg rn Pain. 10:07 The patient presents with confusion, disorientation. Onset: The symptoms/episode rn began/occurred this morning. Possible causes: unknown. Current symptoms: In the emergency department the patient's symptoms have improved. The patient has not experienced similar symptoms in the past. The patient has been recently seen at the [facility] Emergency Department. Pt with 2 ER visits the last 2 days for leg pain, left leg, radiating from back. Had neg CT lumbar spine and neg u/s this past evening. Given demerol and phenergan for pain and sent home, woke up in a panic, felt alone and concerned, family was called and states patient was speaking in clear words but didn't make sense, otherwise no focal neuro complaints. Now patient is oriented x 3 without intervention. Denies any focal pain other than left leg which she has been evaluated for and has been present for last 5 weeks. No fall or head injury. No other changes in medication. No hx of CVA. . Historical: - Allergies: 09:31 No Known Allergies; ph - Home Meds: 09:42 Advil Oral [Active]; ap3 - PMHx: 09:31 Anxiety; Depression; Hypertension; ph - PSHx: 09:31 bilateral heels; decompression of vertebrae; partial thyroidectomy; ph - Immunization history:: Client reports receiving the 2nd dose of the Covid vaccine, Flu vaccine is not up to date. - Social history:: Smoking status: Patient denies any tobacco usage or history of. - Family history:: not pertinent. - Hospitalizations: : No recent hospitalization is reported. ROS: 10:07 Constitutional: Negative for fever, chills, and weight loss, Eyes: Negative for injury, rn pain, redness, and discharge, ENT: Negative for injury, pain, and discharge, Neck: Negative for injury, pain, and swelling, Cardiovascular: Negative for chest pain, palpitations, and edema, Respiratory: Negative for shortness of breath, cough, wheezing, and pleuritic chest pain, Abdomen/GI: Negative for abdominal pain, nausea, vomiting, diarrhea, and constipation, Back: Negative for injury and pain, : Negative for injury, bleeding, discharge, and swelling, MS/Extremity: + left proximal leg pain Skin: Negative for injury, rash, and discoloration, Neuro: Negative for headache, weakness, numbness, tingling, and seizure. Exam: 10:07 Constitutional: This is a well developed, well nourished patient who is awake, alert, rn tearful Head/Face: Normocephalic, atraumatic. Eyes: Pupils equal round and reactive to light, extra-ocular motions intact. Lids and lashes normal. Conjunctiva and sclera are non-icteric and not injected. Cornea within normal limits. Periorbital areas with no swelling, redness, or edema. ENT: MMM, no stridor Cardiovascular: Regular rate and rhythm. No pulse deficits. Respiratory: No increased work of breathing, no retractions or nasal flaring. Abdomen/GI: Soft, non-tender Back: No spinal tenderness. No costovertebral tenderness. Full range of motion. Skin: Warm, dry, strong DP pulse, no discoloration MS/ Extremity: Pulses equal, no cyanosis. Neurovascular intact. Full, normal range of motion. Equal circumference. Neuro: Awake and alert, GCS 15, oriented to person, place, time, and situation. Cranial nerves II-XII grossly intact. Motor strength 5/5 in all extremities, LLE limited 2/2 pain but 5/5 plantar flexion and extension. Sensory grossly intact. Cerebellar exam normal. Vital Signs: 09:38 BP 147 / 123; Pulse 79; Resp 19; Temp 97.5; Pulse Ox 98% ; Weight 99.79 kg; Height 5 ap3 ft. 5 in. (165.10 cm); 09:56 BP 124 / 81; ph 10:42 BP 124 / 89; Pulse 80; Resp 18; Pulse Ox 96% on R/A; ph 12:00 BP 118 / 78; Pulse 76; Resp 16; Pulse Ox 98% on R/A; ph 13:30 BP 122 / 82; Pulse 69; Resp 18; Temp 97.9; Pulse Ox 99% on R/A; ph 09:38 Body Mass Index 36.61 (99.79 kg, 165.10 cm) ap3 MDM: 09:34 Patient medically screened. rn 10:53 ED course: According to medical records, received demerol and phenergan around rn midnight.. 12:49 Differential Diagnosis: CVA, electrolyte abnormality, hypoglycemia, UTI, volume rn depletion, adverse effect of medication (demerol and phenergan), anxiety, sciatica. Data reviewed: vital signs, nurses notes, old medical records, lab test result(s), EKG, radiologic studies, CT scan, MRI, ultrasound, and as a result, I will discharge patient. Counseling: I had a detailed discussion with the patient and/or guardian regarding: the historical points, exam findings, and any diagnostic results supporting the discharge/admit diagnosis, lab results, radiology results, the need for outpatient follow up, to return to the emergency department if symptoms worsen or persist or if there are any questions or concerns that arise at home. Response to treatment: the patient's condition has returned to base line, and as a result, I will discharge patient. Special discussion: I discussed with the patient/guardian in detail that at this point there is no indication for admission to the hospital. It is understood, however, that if the symptoms persist or worsen the patient needs to return immediately for re-evaluation. Based on the history and exam findings, there is no indication for further emergent testing or inpatient evaluation. I discussed with the patient/guardian the need to see the primary care provider for further evaluation of the symptoms. ED course: No acute findings on ct head or MRI brain, no gross evidence of UTI, already on Abx, U/S for dvt neg and ct lumbar spine neg, normal vitals, and normal neuro exam, with improvement of symptoms without intervention. Will dc home with return precautions. May have been medications given at midnight. . 01/08 09:43 Order name: CBC with Diff; Complete Time: rn 01/08 09:43 Order name: Basic Metabolic Panel; Complete Time: : rn 01/08 09:43 Order name: Urine Microscopic Only; Complete Time: : rn 01/08 09:43 Order name: Procalcitonin; Complete Time: : rn 01/08 10:07 Order name: Glucose, Ancillary Testing; Complete Time: [facility] 01/08 10:09 Order name: COVID-19 SARS RT PCR (Document "Date of Onset" if Symptomatic); Complete ph Time: 11:27 01/08 09:43 Order name: IV Start; Complete Time: 09:56 rn 01/08 09:43 Order name: CT Head Brain wo Cont; Complete Time: 10:31 rn 01/08 09:43 Order name: Urine Dipstick-Ancillary (obtain specimen); Complete Time: 11:06 rn 01/08 09:48 Order name: EKG; Complete Time: 09:48 rn 01/08 10:49 Order name: MRI - Brain Wo Cont; Complete Time: 12:48 rn 01/08 11:05 Order name: Urine Dipstick-Ancillary; Complete Time: 11:27 [facility] 01/08 11:41 Order name: Urine Culture [facility] 01/08 09:43 Order name: Cardiac monitoring; Complete Time: 09:52 rn 01/08 09:43 Order name: O2 Sat Monitoring; Complete Time: 09:52 rn 01/08 09:48 Order name: EKG - Nurse/Tech; Complete Time: 10:21 rn 01/08 09:48 Order name: Glucose Level; Complete Time: 09:56 rn Administered Medications: 13:14 Drug: Ketorolac 15 mg Route: IVP; Site: right antecubital; ph 13:30 Follow up: Response: No adverse reaction ph Disposition Summary: 01/08/22 12:51 Discharge Ordered Location: Home rn Problem: new rn Symptoms: have improved rn Condition: Stable rn Diagnosis - Altered mental status, unspecified rn - Radiculopathy, lumbar region rn - Unspecified adverse effect of drug or medicament rn Followup: rn - With: Private Physician - When: As needed - Reason: Recheck today's complaints, Re-evaluation by your physician Discharge Instructions: - Discharge Summary Sheet rn - Confusion rn - Lumbosacral Radiculopathy rn Forms: - Medication Reconciliation Form rn - Thank You Letter rn - Antibiotic 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 Dudley Cruz MD MD rn Hall, Patricia, RN RN Nicol Coker RN RN ap3
--- NOTE | 2022-01-08 12:52 | ER ---
Nurse's Notes [facility] Name: Lizbet Solares Age: 56 yrs Sex: Female : 1965 Arrival Date: 01/08/2022 Time: 09:23 Bed 4 Private MD: Diagnosis: Altered mental status, unspecified;Radiculopathy, lumbar region;Unspecified adverse effect of drug or medicament Presentation: 01/08 09:38 Chief complaint: Patient states: she was seen here last night for severe leg pain, and ap3 was given unknown medications. Patient's family member states they were here until the optomechanical engineer hours, and when the patient woke up at 0800 she was confused and didn't know where she was. Patient also complains of continued severe upper left leg pain. Coronavirus screen: At this time, the client does not indicate any symptoms associated with coronavirus-19. Ebola Screen: No symptoms or risks identified at this time. Initial Sepsis Screen: Does the patient meet any 2 criteria? No. Patient's initial sepsis screen is negative. Does the patient have a suspected source of infection? No. Patient's initial sepsis screen is negative. Risk Assessment: Do you want to hurt yourself or someone else? Patient reports no desire to harm self or others. 09:38 Method Of Arrival: Wheelchair ap3 09:38 Acuity: NAFISA 3 ap3 09:40 Onset of symptoms was January 08, 2022 at 08:00. ap3 Triage Assessment: 09:41 General: Appears uncomfortable, Behavior is calm, cooperative, appropriate for age. ap3 Pain: Complains of pain in left quadriceps Pain currently is 10 out of 10 on a pain scale. Neuro: Level of Consciousness is awake, alert, obeys commands, Oriented to person, place, time, situation, Gait is unsteady, Speech is normal. Cardiovascular: Patient's skin is warm and dry. Respiratory: Airway is patent Respiratory effort is even, unlabored. Historical: - Allergies: : No Known Allergies; ph - Home Meds: 09:42 Advil Oral [Active]; ap3 - PMHx: : Anxiety; Depression; Hypertension; ph - PSHx: : bilateral heels; decompression of vertebrae; partial thyroidectomy; ph - Immunization history:: Client reports receiving the 2nd dose of the Covid vaccine, Flu vaccine is not up to date. - Social history:: Smoking status: Patient denies any tobacco usage or history of. - Family history:: not pertinent. - Hospitalizations: : No recent hospitalization is reported. Screenin:41 Abuse screen: Denies threats or abuse. Nutritional screening: No deficits noted. ap3 Tuberculosis screening: No symptoms or risk factors identified. 09:56 Fall Risk None identified. ph Assessment: 09:55 General: Appears in no apparent distress. comfortable, Behavior is calm, cooperative, ph appropriate for age, Denies fever. Pain: Complains of pain in left quadriceps. Neuro: Level of Consciousness is awake, obeys commands, Oriented to person, place, time. Cardiovascular: Capillary refill < 3 seconds in bilateral fingers Patient's skin is warm and dry. Respiratory: Airway is patent Respiratory effort is even, unlabored. Derm: Skin is intact, Skin is pink, warm \T\ dry. Musculoskeletal: Circulation, motion, and sensation intact. Range of motion: intact in all extremities. 09:56 Reassessment: Pt taken to CT. ph 11:07 Reassessment: Patient appears in no apparent distress at this time. Patient and/or ph family updated on plan of care and expected duration. Pain level reassessed. Pt assisted out of bed to use bedside commode, urine sample obtained, pt continues to c/o L leg gómez. 12:45 Reassessment: Patient appears in no apparent distress at this time. Patient and/or ph family updated on plan of care and expected duration. Pain level reassessed. Patient is alert, oriented x 3, equal unlabored respirations, skin warm/dry/pink. Awaiting MRI resu;ts. Vital Signs: 09:38 BP 147 / 123; Pulse 79; Resp 19; Temp 97.5; Pulse Ox 98% ; Weight 99.79 kg; Height 5 ap3 ft. 5 in. (165.10 cm); 09:56 BP 124 / 81; ph 10:42 BP 124 / 89; Pulse 80; Resp 18; Pulse Ox 96% on R/A; ph 12:00 BP 118 / 78; Pulse 76; Resp 16; Pulse Ox 98% on R/A; ph 13:30 BP 122 / 82; Pulse 69; Resp 18; Temp 97.9; Pulse Ox 99% on R/A; ph 09:38 Body Mass Index 36.61 (99.79 kg, 165.10 cm) ap3 ED Course: 09:23 Patient arrived in ED. mr 09:31 Gilda Mccord RN is Primary Nurse. ph 09:32 Arm band placed on Patient placed in an exam room. ph 09:34 Dudley Cruz MD is Attending Physician. rn 09:40 Triage completed. ap3 09:42 Patient has correct armband on for positive identification. Bed in low position. Call ap3 light in reach. Side rails up X2. Adult w/ patient. property assessment monitor on. Pulse ox on. NIBP on. Door closed. Noise minimized. 09:45 Missed attempt(s): 20 gauge in left antecubital area. vg1 09:54 Initial lab(s) drawn, by me, sent to lab. Inserted saline lock: 22 gauge in right ph antecubital area, using aseptic technique. Blood collected. 10:05 CT Head Brain wo Cont In Process Unspecified. EDMS 11:54 Assisted to bedside commode. wm 12:18 MRI - Brain Wo Cont In Process Unspecified. EDMS 13:30 No provider procedures requiring assistance completed. IV discontinued, intact, ph bleeding controlled, No redness/swelling at site. Pressure dressing applied. Administered Medications: 13:14 Drug: Ketorolac 15 mg Route: IVP; Site: right antecubital; ph 13:30 Follow up: Response: No adverse reaction ph Outcome: 12:51 Discharge ordered by MD. rn 13:40 Patient left the ED. iw 13:40 Discharged to home with family. ph 13:40 Condition: good 13:40 Discharge instructions given to patient, Instructed on discharge instructions, follow up and referral plans. Demonstrated understanding of instructions, follow-up care. Signatures: Dispatcher [employer] [facility] Kathrine AllanLudy RN RN Dudley Cruz MD MD rn Hall, Patricia, RN RN Nicol Coker RN RN ap3 Soledad Marvin RN RN 1 Joana Mendoza Corrections: (The following items were deleted from the chart) 09:41 09:38 Onset of symptoms was November 2021 ap3 ap3 19:49 12:30 Reassessment: Patient appears in no apparent distress at this time. Patient ph and/or family updated on plan of care and expected duration. Pain level reassessed. Patient is alert, oriented x 3, equal unlabored respirations, skin warm/dry/pink. Awaiting MRI resu;ts ph
[2022-01-08] MEDS ORDERED: KETOROLAC 30 MG/ML INJ ONE (13:13)
[2022-01-08 14:05] VITALS: TEMP 97.5
[2022-01-08 14:07] VITALS: BP 124/89; O2SAT 96
--- NOTE | 2022-01-12 11:25 | EKG ---
Test Date: 2022-01-08 Test Time: 10:13:42 Compliance Technician: RANI MEASUREMENT RESULTS: Intervals: Rate: 79 AZ: 176 QRSD: 80 QT: 414 QTc: 474 [place]: P: 44 AZ: 176 QRS: 13 T: 50 INTERPRETIVE STATEMENTS: Normal sinus rhythm Nonspecific T wave abnormality Prolonged QT Abnormal ECG Compared to ECG 11/21/2021 11:39:47 T-wave abnormality now present Prolonged QT interval now present Myocardial infarct finding no longer present Electronically Signed On 01-12-22 11:14:15 CDT by Brenden Hernandez
== END 2022-01-08 13:40 | disposition home or self-care (01) ==
LOC: ER 09:20
DX: M54.16 Radiculopathy, lumbar region (principal); T50.905A Adverse effect of unspecified drugs, medicaments and biological substances, initial encounter; Z20.822 Contact with and (suspected) exposure to COVID-19
CPT/HCPCS: 93005; 87088; 85025; 87086; 80048; 36415; 82947; 84145; 70450; 70551; 96374; 99284; U0003; 81003; 81015

== ENCOUNTER 2022-01-12 04:36 | Emergency (ER) | payer BC ==
--- OUTSIDE RECORDS SUMMARY | 2022-01-12 04:41 | XMS REPORT | Continuity of Care Document ---
:1965 Author Organization [facility] t Address [address] [place] [address] Care Team Providers Name Role Phone Amy [...] Expiration Date S ource HIM BCBS BLUE [id number] 2019 ADVANTAGE O 00:00:00 Advance Directives Directive Decision Effective Termination Comments Source Date Date Healthcare Agents on N/A Univ ersity FileNameRelation[facility] [place] [facility] Agent Medical RelationshipCommunicationParkview Health [facility] Branch OrandRitherAden[facility] Care [phone] (Home) Problems Condition Condition Condition Status Onset Resolution Last Treating Co mments Source Name Details Category Date Date Treatment Clinician Date Abnormal Abnormal Disease Active Unive rs liver liver 1-27 [place] Severe Severe Disease Active Univers obstructiv obstructiv 1-26 it y of e sleep e sleep 00:00: [place] apnea apnea Medical Branch Prediabete Prediabete Disease Active U nivers s s 1-19 ity of 00:00: [place] [facility] Mixed Mixed Disease Active Univers hyperlipid hyperlipid -19 it y of emia emia 00:00: Medical Branch Abnormal Abnormal Disease Active Unive rs LFTs LFTs -19 ity of 00:00: [place] [facility] GERD GERD Disease Active Univers (gastroeso (gastroeso 1-17 it y of phageal phageal 00:00: reflux reflux Medical disease) disease) Branch Mitral Mitral Disease Active Univers valve valve 1-17 ity of prolapse prolapse 00:00: [place] [facility] Anxiety Anxiety Disease Active Univers 1-17 ity of 00:00: [place] [facility] Pernicious Pernicious Disease Active U nivers anemia anemia 1-17 ity of 00:00: [place] [facility] Morbid Morbid Disease Active Univers [...] of hypothyroi hypothyroi 00:00: g of this [place] dism dism 00 note Medical might be [...] Active Univers ALLERGIE Class ity of S [facility] NO KNOWN Allergy Active [facility] ALLERGIE S Social History Social Habit Start Date Stop Date Quantity Comments Source Exposure to Unable to assess Univers ity of SARS-CoV-2 [place] Medical (event) Branch History SDUT University o f Alcohol Frequency [place] M edical Branch History [facility] University o f Alcohol Std [place] Medical Drinks Branch History [facility] o f Alcohol Binge [facility] al Branch Alcohol intake 2021-11-12 2021-11-12 Ex-drinker University 00:00:00 00:00:00 (finding) [facility] Tobacco use and 2021-10-21 2021-10-21 Never used Universit y of exposure 00:00:00 00:00:00 [facility] Alcohol Comment 2021-10-21 2021-10-21 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 Clinician (SIG) Name Name HYDROcodone 2021- No 1{tbl} 1 tablet, Univers -acetaminop 3-21 -21 Oral, ity of hen (NORCO) 22:15: 21:03 [place]CE[place] 1 [place] 10-325 mg 00 :00 dose, On Medica l tablet 1 Mon Branch tablet 12/29/21 at 1715, Routine HYDROcodone 2021- No 1{tbl} 1 tablet, Univers -acetaminop 3-21 -21 Oral, ity of hen (NORCO) 22:15: 21:03 [place]CE[place] 1 [place] 10-325 mg 00 :00 dose, On Medica l tablet 1 Mon Branch tablet 12/29/21 at 1715, Routine ARIPiprazol Yes 5mg Take 5 mg U nivers e (ABILIFY) 2-02 by mouth ity of 5 mg tablet 14:14: daily. [address] ARIPiprazol Yes 5mg Take 5 mg U nivers e (ABILIFY) 2-02 by mouth ity of 5 mg tablet 14:14: daily. [address] ARIPiprazol Yes 5mg Take 5 mg U nivers e (ABILIFY) 2-02 by mouth ity of 5 mg tablet 14:14: daily. [address] ARIPiprazol Yes 5mg Take 5 mg U nivers e (ABILIFY) 2-02 by mouth ity of 5 mg tablet 14:14: daily. [address] ARIPiprazol Yes 5mg Take 5 mg U nivers e (ABILIFY) 2-02 by mouth ity of 5 mg tablet 14:14: daily. [address] ARIPiprazol Yes 5mg Take 5 mg U nivers e (ABILIFY) 2-02 by mouth ity of 5 mg tablet 14:14: daily. [address] liothyronin Yes [id number] 5ug Take 1 Univers e 5 mcg 1-11 tablet by ity of tablet 00:00: mouth 2 (two) Medical times Branch daily. SYNTHROID Yes [id number] 75ug Take 1 U nivers 75 mcg 1-11 tablet by ity of tablet 00:00: mouth [place] 00 every Medical morning. Branch BRAND MEDICALLY NECESSARY metoprolol Yes [id number] 100mg Take 1 Univers succinate 1-11 tablet by ity o f XL 100 mg 00:00: mouth [place] 24 hr 00 daily. Medical tablet Branch felodipine 0 Yes [id number] 5mg Take 1 U nivers 5 mg 24 hr 1-11 tablet by ity of tablet 00:00: mouth at [place] 00 bedtime. Medical Branch rosuvastati 0 Yes [id number] 20mg Take 1 Univers n 20 mg 1-11 tablet by ity of tablet 00:00: mouth at [place] 00 bedtime. Medical Branch omeprazole 0 Yes [id number] 20mg Take 1 Univers 20 mg 1-11 capsule by ity of capsule 00:00: mouth [place] 00 daily. Medical Branch liothyronin 0 Yes [id number] 5ug Take 1 Univers e 5 mcg 1-11 tablet by ity of tablet 00:00: mouth 2 [place] 00 (two) Medical times Branch daily. SYNTHROID 2022-0 Yes [id number] 75ug Take 1 U nivers 75 mcg 1-11 tablet by ity of tablet 00:00: mouth [place] 00 every Medical morning. Branch BRAND MEDICALLY NECESSARY metoprolol 0 Yes [id number] 100mg Take 1 Univers succinate 1-11 tablet by ity o f XL 100 mg 00:00: mouth [place] 24 hr 00 daily. Medical tablet Branch felodipine 0 Yes [id number] 5mg Take 1 U nivers 5 mg 24 hr 1-11 tablet by ity of tablet 00:00: mouth at [place] 00 bedtime. Medical Branch rosuvastati 0 Yes [id number] 20mg Take 1 Univers n 20 mg 1-11 tablet by ity of tablet 00:00: mouth at [place] 00 bedtime. Medical Branch omeprazole Yes [id number] 20mg Take 1 Univers 20 mg 1-11 capsule by ity of capsule 00:00: mouth [place] 00 daily. Medical Branch liothyronin Yes [id number] 5ug Take 1 Univers e 5 mcg 1-11 tablet by ity of tablet 00:00: mouth 2 [place] 00 (two) Medical times Branch daily. SYNTHROID Yes [id number] 75ug Take 1 U nivers 75 mcg 1-11 tablet by ity of tablet 00:00: mouth [place] 00 every Medical morning. Branch BRAND MEDICALLY NECESSARY metoprolol Yes [id number] 100mg Take 1 Univers succinate 1-11 tablet by ity o f XL 100 mg 00:00: mouth [place] 24 hr 00 daily. Medical tablet Branch felodipine 0 Yes [id number] 5mg Take 1 U nivers 5 mg 24 hr 1-11 tablet by ity of tablet 00:00: mouth at [place] 00 bedtime. Medical Branch rosuvastati 0 Yes [id number] 20mg Take 1 Univers n 20 mg 1-11 tablet by ity of tablet 00:00: mouth at [place] 00 bedtime. Medical Branch omeprazole 2021-0 Yes [id number] 20mg Take 1 Univers 20 mg 1-11 capsule by ity of capsule 00:00: mouth [place] 00 daily. Medical Branch liothyronin 2021-0 Yes [id number] 5ug Take 1 Univers e 5 mcg 1-11 tablet by ity of tablet 00:00: mouth 2 [place] 00 (two) Medical times Branch daily. SYNTHROID 2021-0 Yes [id number] 75ug Take 1 U nivers 75 mcg 1-11 tablet by ity of tablet 00:00: mouth [place] 00 every Medical morning. Branch BRAND MEDICALLY NECESSARY metoprolol 2021-0 Yes [id number] 100mg Take 1 Univers succinate 1-11 tablet by ity o f XL 100 mg 00:00: mouth [place] 24 hr 00 daily. Medical tablet Branch felodipine 2021-0 Yes [id number] 5mg Take 1 U nivers 5 mg 24 hr 1-11 tablet by ity of tablet 00:00: mouth at [place] 00 bedtime. Medical Branch rosuvastati 2021-0 Yes [id number] 20mg Take 1 Univers n 20 mg 1-11 tablet by ity of tablet 00:00: mouth at [place] 00 bedtime. Medical Branch omeprazole 2021-0 Yes [id number] 20mg Take 1 Univers 20 mg 1-11 capsule by ity of capsule 00:00: mouth [place] 00 daily. Medical Branch liothyronin 0 Yes [id number] 5ug Take 1 Univers e 5 mcg 1-11 tablet by ity of tablet 00:00: mouth 2 [place] 00 (two) Medical times Branch daily. SYNTHROID 2021-0 Yes [id number] 75ug Take 1 U nivers 75 mcg 1-11 tablet by ity of tablet 00:00: mouth [place] 00 every Medical morning. Branch BRAND MEDICALLY NECESSARY metoprolol 0 Yes [id number] 100mg Take 1 Univers succinate 1-11 tablet by ity o f XL 100 mg 00:00: mouth [place] 24 hr 00 daily. Medical tablet Branch felodipine 2021-0 Yes [id number] 5mg Take 1 U nivers 5 mg 24 hr 1-11 tablet by ity of tablet 00:00: mouth at [place] 00 bedtime. Medical Branch rosuvastati 2021-0 Yes [id number] 20mg Take 1 Univers n 20 mg 1-11 tablet by ity of tablet 00:00: mouth at [place] 00 bedtime. Medical Branch omeprazole 2021-0 Yes [id number] 20mg Take 1 Univers 20 mg 1-11 capsule by ity of capsule 00:00: mouth [place] 00 daily. Medical Branch liothyronin 2021-0 Yes [id number] 5ug Take 1 Univers e 5 mcg 1-11 tablet by ity of tablet 00:00: mouth 2 [place] 00 (two) Medical times Branch daily. SYNTHROID Yes [id number] 75ug Take 1 U nivers 75 mcg 1-11 tablet by ity of tablet 00:00: mouth [place] 00 every Medical morning. Branch BRAND MEDICALLY NECESSARY metoprolol Yes [id number] 100mg Take 1 Univers succinate 1-11 tablet by ity o f XL 100 mg 00:00: mouth [place] 24 hr 00 daily. Medical tablet Branch felodipine Yes [id number] 5mg Take 1 U nivers 5 mg 24 hr 1-11 tablet by ity of tablet 00:00: mouth at [place] 00 bedtime. Medical Branch rosuvastati Yes [id number] 20mg Take 1 Univers n 20 mg 1-11 tablet by ity of tablet 00:00: mouth at [place] 00 bedtime. Medical Branch omeprazole Yes [id number] 20mg Take 1 Univers 20 mg 1-11 capsule by ity of capsule 00:00: mouth [place] 00 daily. Medical Branch buPROPion Yes Univers XL 300 [...] 00:00: daily. [place] tablet Medical Branch escitalopra 2019-0 Yes 20mg Take [...] Immunizations Ordered Filled Immunization Date Status Comments [facility] e Immunization Name Name SARS-COV-2 COVID-19 2021-10-21 Completed Unive rsity of MODERNA BOOSTER 00:00:00 [facility] ical VACCINE Branch SARS-COV-2 COVID-19 2021-10-21 Completed Unive rsity of MODERNA BOOSTER 00:00:00 [facility] ical VACCINE Branch SARS-COV-2 COVID-19 2021-10-21 Completed Unive rsity of MODERNA BOOSTER 00:00:00 [facility] ical VACCINE Branch SARS-COV-2 COVID-19 2021-10-21 Completed Unive rsity of MODERNA BOOSTER 00:00:00 [facility] ical VACCINE Branch SARS-COV-2 COVID-19 2021-10-21 Completed Unive rsity of MODERNA BOOSTER 00:00:00 [facility] ical VACCINE Branch SARS-COV-2 COVID-19 2021-10-21 Completed Unive rsity of MODERNA BOOSTER 00:00:00 [facility] ical VACCINE Branch SARS-COV-2 COVID-19 2021-01-15 Completed Unive rsity of MODERNA VACCINE 00:00:00 [facility] ical Branch SARS-COV-2 COVID-19 2021-01-15 Completed Unive rsity of MODERNA VACCINE 00:00:00 [facility] ical Branch SARS-COV-2 COVID-19 2021-01-15 Completed Unive rsity of MODERNA VACCINE 00:00:00 [facility] ical Branch SARS-COV-2 COVID-19 2021-01-15 Completed Unive rsity of MODERNA VACCINE 00:00:00 [facility] ical Branch SARS-COV-2 COVID-19 2021-01-15 Completed Unive rsity of MODERNA VACCINE 00:00:00 [facility] ical Branch SARS-COV-2 COVID-19 2021-01-15 Completed Unive rsity of MODERNA VACCINE 00:00:00 [facility] Branch SARS-COV-2 COVID-19 2020-12-18 Completed Unive rsity of MODERNA VACCINE 00:00:00 [facility] Branch SARS-COV-2 COVID-19 2020-12-18 Completed Unive rsity of MODERNA VACCINE 00:00:00 [facility] Branch SARS-COV-2 COVID-19 2020-12-18 Completed Unive rsity of MODERNA VACCINE 00:00:00 [facility] Branch SARS-COV-2 COVID-19 2020-12-18 Completed Unive rsity of MODERNA VACCINE 00:00:00 [facility] SARS-COV-2 COVID-19 2020-12-18 Completed Unive rsity of MODERNA VACCINE 00:00:00 [facility] Branch SARS-COV-2 COVID-19 2020-12-18 Completed Unive rsity of MODERNA VACCINE 00:00:00 [facility] Vital Signs Vital Name Observation Time Observation Value Comments Source Systolic blood 2021-12-29 19:52:00 139 mm[Hg] Univer sity of pressure [facility] Diastolic blood 2021-12-29 19:52:00 86 mm[Hg] Unive rsity of pressure [facility] Heart rate 2021-12-29 19:52:00 83 /min [facility] Body temperature 2021-12-29 19:52:00 36.67 Elvira [facility] [place] [facility] Respiratory rate 2021-12-29 19:52:00 18 /min [facility] [place] [facility] Body weight 2021-12-29 19:52:00 109.77 kg [facility] BMI 2021-12-29 19:52:00 40.27 kg/m2 [facility] Oxygen saturation in 2021-12-29 19:52:00 98 /min [facility] blood by [facility] Pulse oximetry Branch Procedures Procedure Date / Time Performing Clinician Source Performed XR ANKLE 3+ VW LEFT 2021-12-29 21:20:00 Faustino Holt [facility] DUPLEX VENOUS LEG LEFT - 2021-12-29 20:41:00 [facility] CONSENT/REFUSAL FOR 2021-12-29 19:34:01 Doctor Pimentel [facility] DIAGNOSIS AND TREATMENT [place] [facility] EXTERNAL PROVIDER RECORDS 2021-12-22 05:01:00 Doctor Pimentel [facility] [place] [facility] INSURANCE CORRESPONDENCE 2021-12-10 06:01:00 Doctor Pimentel [facility] [place] [facility] Encounters Start End Encounter Admission Attending Care Care Encounter Source Date/Time Date/Time Type Type Clinicians Facility Department ID 2021-12-29 2021-12-29 Emergency X YANET [facility] ERT [id number] [facility] 14:55:00 16:47:00 FAUSTINO itleigh [facility] 2021-12-29 2021-12-29 Emergency Yanet [facility] [id number] [facility] 14:55:00 16:47:00 Faustino ALMAZAN [id number] i ty of [place] 4.2.7.2.686 [place] [facility] [id number] [facility] 0[address] [place] 2021-12-29 2021-12-29 Telephone Ruperto [facility] [id number] Univers 00:00:00 00:00:00 Wondiful A HEALTH [id number] ity of [place] [id number] Branden as EL?BLEA [phone] [address] MEDICAL OFFICE BUILDING 2021-12-22 2021-12-22 Orders Doctor VANCE 1.2.840.114 [id number] Univers 00:00:00 00:00:00 Only Unassigned, HUDSON [id number] ity of [place] [facility] 4.2.7.2.686 Branden as [phone] [facility] 009 Branch 2021-12-10 2021-12-10 Orders Doctor VANCE 1.2.840.114 [id number] Univers 00:00:00 00:00:00 Only Unassigned, [place] [id number] ity of [place] HOSPITAL 4.2.7.2.686 Branden as [phone] [facility] 009 Branch 2021-12-01 2021-12-01 Telephone Tanja [facility] 1.2.840.114 [id number] Univers 00:00:00 00:00:00 Parminder Hernández NORAH [id number] ity of [place] 4.2.7.2.686 Antonella ashby PROFESSIO [phone] Sd dical NAL 085 [facility] 2020-10-01 2020-10-01 Emergency Zachary Mcnamara [facility] 1.2.840.114 [id number] 15:38:00 17:19:00 Pamela Almazan [id number] [place] 4.2.7.2.686 [place] [id number] 2020-10-01 2020-10-01 Orders Doctor PINKY [id number] 00:00:00 00:00:00 Only Unassigned, [place] [id number] [place] [facility] 4.2.7.2.686 [id number] [id number] 2020-04-23 2020-07-03 Laboratory Only, Web [facility] 1.2.840.114 [id number] 09:22:46 08:51:45 Only Test Health [id number] Specialty 4.2.7.2.686 [facility] [id number] [place] [id number] 2020-02-08 2020-02-08 Outpatient [facility] [id number] 2-2 [facility] 00:00:00 00:00:00 [id number] Results Test Description Test Time Test Comments Results Result [facility] e Comments US, THYROID 2020-02-08 Reason for FINAL REPORT PATIENT 14:13:00 Exam:->HX OF ID: [id number] PARTIAL Thyroid Ultrasound HYPROIDECTOY History: Partial thyroidectomy [...] [place] Verified Date/Time: 02/08/2020 14:13:43 Reading Location: [facility] Diagnostic Imaging Reading Room - [place] [address] D CULTURE 2018-04-09 00:00:00 Test Item Value Reference Range Interpretation Comme nts CULTURE (BEAKER) (test code = 1095) No growth in 5 days BLOOD [id number] 00:00:00 Test Item Value Reference Range Interpretation Comments CULTURE (BEAKER) (test No growth in 5 days code = 1095) BASIC METABOLIC [id number] 11:06:00 Test Item Value Reference Range Interpretation [...] TO CALCULA TE ESTIMATED GFR. BASIC METABOLIC [id number] 07:36:00 Test Item Value Reference Range Interpretation [...] TO CALCULA TE ESTIMATED GFR. BASIC METABOLIC [id number] 19:50:00 Test Item Value Reference Range Interpretation [...] TO CALCULA TE ESTIMATED GFR. BASIC METABOLIC [id number] 08:59:00 Test Item Value Reference Range Interpretation [...] TO CALCULA TE ESTIMATED GFR. BASIC METABOLIC [id number] 01:18:00 Test Item Value Reference Range Interpretation [...] TO CALCULA TE ESTIMATED GFR. BASIC METABOLIC [id number] 16:32:00 Test Item Value Reference Range Interpretation [...] TO CALCULA TE ESTIMATED GFR. U/S, ABDOMINAL, [id number] 14:54:00Abdomen limited area? Add comment if clarification [...] mildly septated cysts in liver. Signed: Oma [place] Verified Date/Time: 04/05/2018 14:54:01 Reading Location: [address] Ultrasound Reading Room HEPATIC FUNCTION [id number] 14:03:00 Test Item Value Reference Range Interpretation [...] = 21 U/L 6-55 347) BASIC METABOLIC [id number] 09:16:00 Test Item Value Reference Range Interpretation [...] ESTIMATED GFR. CBC W/PLT COUNT & AUTO [id number] 08:44:00 Test Item Value Reference Range Interpretation [...] (BEAKER) (test code = 2801) BASIC METABOLIC [id number] 01:06:00 Test Item Value Reference Range Interpretation [...] m DATA TO CALCULA TE ESTIMATED GFR. [id number] 18:02:00 Test Item Value Reference Range Interpretation Comments AMMONIA (BEAKER) (test code = 348) 35 mol/L 18-72 BASIC METABOLIC [id number] 17:31:00 Test Item Value Reference Range Interpretation [...] TO CALCULA TE ESTIMATED GFR. BASIC METABOLIC [id number] 09:29:00 Test Item Value Reference Range Interpretation [...] TO CALCULA TE ESTIMATED GFR. BLOOD GAS, [id number] 05:19:00 Test Item Value Reference Range Interpretation [...] C (test code = 1818) BASIC METABOLIC [id number] 03:52:00 Test Item Value Reference Range Interpretation [...] m DATA TO CALCULA TE ESTIMATED GFR. [id number] 03:48:00 Test Item Value Reference Range Interpretation Comments PHOSPHORUS (BEAKER) (test code = 3.6 mg/dL 2.3-4.7 604) [id number] 03:48:00 Test Item Value Reference Range Interpretation Comments MAGNESIUM (BEAKER) (test code = 2.1 mg/dL 1.6-2.6 627) LACTIC ACID, VENOUS, WHOLE [id number] 03:44:00 Test Item Value Reference Range Interpretation [...] WBC 0-0 (BEAKER) (test code = 413) [id number] 02:06:00 Test Item Value Reference Range Interpretation Comments CORTISOL, TOTAL (BEAKER) (test 17.8 ug/dL 3.7-19.4 code = 2755) TSH/FREE T4 IF [id number] 02:06:00 Test Item Value Reference Range Interpretation Comments THYROID STIMULATING HORMONE 1.09 uIU/mL 0.35-4.94 (BEAKER) (test code = 772) HIV-1 ANTIGEN WITH HIV-1/2 [id number] 00:06:00 Test Item Value Reference Range Interpretation Comments HIV-1 ANTIGEN WITH HIV 1\T\2 Nonreactive Nonreactive ANTIBODY (2) (BEAKER) (test code = 2586) BASIC METABOLIC [id number] 23:30:00 Test Item Value Reference Range Interpretation [...] ESTIMATED GFR. RAD, CHEST, 1 VIEW, NON [id number] 21:34:00Reason for exam:->ALTERED MENTAL STATUSReason for exam:->NEUROLOGIC [...] [place] Verified Date/Time: 04/03/2018 21:34:48 Reading Location: [address] Reading Room OSMOLALITY, [id number] 21:10:00 Test Item Value Reference Range Interpretation Comments OSMOLALITY, SERUM (BEAKER) (test 236 mOsm/kg 275-295 L code = 615) RAPID DRUG SCREEN, [id number] 20:47:00 Test Item Value Reference Range Interpretation [...] situations. Chain of custody not maintained. Some ruhz-ycs-lkfqkdx medications, as well as adulterants, may cause inaccurate results. Clinical correlation should be applied. A more comprehensive drug screen or confirmation of a detected drug may be performed upon request.[id number] 20:43:00 Test Item Value Reference Range Interpretation Comments PHOSPHORUS (BEAKER) (test code = 1.8 mg/dL 2.3-4.7 L 604) HEPATIC FUNCTION [id number] 20:43:00 Test Item Value Reference Range Interpretation [...] (test code = 22 U/L 6-55 347) [id number] 20:43:00 Test Item Value Reference Range Interpretation Comments LIPASE (BEAKER) (test code = 749) 21 U/L 8-78 CREATININE, RANDOM [id number] 20:40:00 Test Item Value Reference Range Interpretation Comments CREATININE URINE (BEAKER) (test 11.7 mg/dL code = 375) Reference Range: No NormalsSODIUM, RANDOM [id number] 20:40:00 Test Item Value Reference Range Interpretation Comments SODIUM URINE (BEAKER) (test code = 60 meq/L 243) Reference Range: No NormalsOSMOLALITY, [id number] 20:40:00 Test Item Value Reference Range Interpretation Comments OSMOLALITY URINE (BEAKER) (test 169 mOsm/kg 40-1400 code = 614) [id number] 20:37:00 Test Item Value Reference Range Interpretation Comments ETHANOL (BEAKER) (test code = 400) < mg/dL <=10 [id number] 20:35:00 Test Item Value Reference Range Interpretation Comments AMMONIA (BEAKER) (test code = 348) 33 mol/L 18-72 MR, MRA, BRAIN, WITHOUT [id number] 19:42:00FINAL REPORT MRA head and neck without contrast. CLINICAL HISTORY: Stroke. CO MPARISON: None. TECHNIQUE: Two- and three-dimensional dpuf-gv-kepgwv MRA images of the intra- and extracranial [...] right common carotid artery (image 1). MRA [place]: There is no vessel occlusion, [...] Leela [place] Verified Date/Time: 04/03/201819:42:20 Reading Location: [address] Reading Room MR, MRA, NECK, WITHOUT IV [id number] 19:42:00FINAL REPORT MRA head and neck without contrast. CLINICAL HISTORY: Stroke. COMPARISON: None. TECHNIQUE: Two- and three-dimensional yvxg-ck-xwnzlx MRA images of the intra- and extracranial [...] right common carotid artery (image 1). MRA [place]: There is no vessel occlusion, [...] Leela [place] Verified Date/Time: 04/03/201819:42:20 Reading Location: [address] Transitional Reading Room CREATINE KINASE (CK), TOTAL AND [id number] 19:36:00 Test Item Value Reference Range Interpretation Comments CREATINE KINASE TOTAL (BEAKER) 103 U/L 29-200 (test code = 380) CREATINE KINASE-MB (BEAKER) (test 2.5 ng/mL 0.0-6.6 code = 750) CREATINE KINASE-MB INDEX (BEAKER) 2.4 % (test code = 395) CK-MB Reference Range:<6.7 Normal6.7-10.0 Borderline>10.0 AbnormalTROPONIN [id number] 19:36:00 Test Item Value Reference Range Interpretation [...] neurological disease, and persistent tachyarrhythmia.MR, BRAIN, WITHOUT [id number] 19:34:00FINAL REPORT Exam: MRI brain without contrast. [...] 0-100 (test code = 700) URINALYSIS W/ [id number] 18:43:00 Test Item Value Reference Range Interpretation [...] 520) SOURCE(BEAKER) (test code = Urine, [place] 6550) BASIC METABOLIC [id number] 18:32:00 Test Item Value Reference Range Interpretation [...] m DATA TO CALCULA TE ESTIMATED GFR. [id number] 18:28:00 Test Item Value Reference Range Interpretation Comments MAGNESIUM (BEAKER) (test code = 1.7 mg/dL 1.6-2.6 627) [id number] 18:02:00 Test Item Value Reference Range Interpretation [...] PERCENT (BEAKER) (test code = 2801) POCT-GLUCOSE [id number] 17:49:00 Test Item Value Reference Range Interpretation Comments POC-GLUCOSE METER 100 mg/dL 70-110 TESTED AT [facility] 67[address] ([facility]) (test code = [place] 1538) [address] CT, BRAIN/STROKE [id number] 17:45:00Reason for exam:->stroke protocolIs the patient ?->NoWhat [...] [place] at 1740 hours. Signed: Nolan Pretty Verified Date/Time: 04/03/2018 17:45:48 Reading Location: [address] Reading Room
[2022-01-12] MEDS ORDERED: KETOROLAC 30 MG/ML INJ ONE (05:53)
--- NOTE | 2022-01-12 06:29 | EDPHYS ---
Physician Documentation [facility] Name: Lizbet Solares Age: 56 yrs Sex: Female : 1965 Arrival Date: 01/12/2022 Time: 04:39 Bed 19 Private MD: ED Physician Sandip Springer HPI: 01/12 05:36 This 56 yrs old Female presents to ER via Wheelchair with complaints of Dizziness, Leg mh7 Pain, Diarrhea. 05:36 The patient presents with pain that is chronic, with no known mechanism of injury. The mh7 symptoms are located in the low back. 05:36 Onset: The symptoms/episode began/occurred 1 week(s) ago. mh7 05:36 The pain radiates to the left leg. mh7 05:36 Associated signs and symptoms: Pertinent negatives: abdominal pain, chest pain, mh7 constipation, dysuria, fever, headache, hematuria, incontinence, nausea, numbness, tingling, urinary retention, vomiting, weakness. The problem was sustained from unknown cause. Modifying factors: The patient symptoms are alleviated by narcotic pain medication, the patient symptoms are aggravated by movement, walking. Severity of symptoms: At their worst the symptoms were moderate, 4 day(s) ago, in the emergency department the symptoms have improved, moderately. The patient has been recently seen at the [facility] Emergency Department, last week, multiple visits . Historical: - Allergies: 04:47 No Known Allergies; lg3 - Home Meds: 04:59 Advil Oral [Active]; imtiaz - PMHx: 04:47 Anxiety; Depression; Hypertension; lg3 - PSHx: 04:47 bilateral heels; decompression of vertebrae; partial thyroidectomy; lg3 - Immunization history:: Flu vaccine is not up to date. - Social history:: Smoking status: Patient/guardian denies using tobacco, the patient reports quitting approximately 20 years ago. ROS: 05:36 Constitutional: Negative for fever, chills, and weight loss, Eyes: Negative for injury, mh7 pain, redness, and discharge, ENT: Negative for injury, pain, and discharge, Neck: Negative for injury, pain, and swelling, Cardiovascular: Negative for chest pain, palpitations, and edema, Respiratory: Negative for shortness of breath, cough, wheezing, and pleuritic chest pain, Abdomen/GI: Negative for abdominal pain, nausea, vomiting, diarrhea, and constipation, : Negative for injury, bleeding, discharge, and swelling, Skin: Negative for injury, rash, and discoloration, Neuro: Negative for headache, weakness, numbness, tingling, and seizure, Psych: Negative for depression, anxiety, suicide ideation, homicidal ideation, and hallucinations, Allergy/Immunology: Negative for hives, rash, and allergies, Endocrine: Negative for neck swelling, polydipsia, polyuria, polyphagia, and marked weight changes, Hematologic/Lymphatic: Negative for swollen nodes, abnormal bleeding, and unusual bruising. Exam: 05:36 Constitutional: This is a well developed, well nourished patient who is awake, alert, mh7 and in no acute distress. Head/Face: Normocephalic, atraumatic. Eyes: Pupils equal round and reactive to light, extra-ocular motions intact. Lids and lashes normal. Conjunctiva and sclera are non-icteric and not injected. Cornea within normal limits. Periorbital areas with no swelling, redness, or edema. Neck: Trachea midline, no thyromegaly or masses palpated, and no cervical lymphadenopathy. Supple, full range of motion without nuchal rigidity, or vertebral point tenderness. No Meningismus. Chest/axilla: Normal chest wall appearance and motion. Nontender with no deformity. No lesions are appreciated. Cardiovascular: Regular rate and rhythm with a normal S1 and S2. No gallops, murmurs, or rubs. Normal PMI, no JVD. No pulse deficits. Respiratory: Lungs have equal breath sounds bilaterally, clear to auscultation and percussion. No rales, rhonchi or wheezes noted. No increased work of breathing, no retractions or nasal flaring. Abdomen/GI: Soft, non-tender, with normal bowel sounds. No distension or tympany. No guarding or rebound. No evidence of tenderness throughout. Skin: Warm, dry with normal turgor. Normal color with no rashes, no lesions, and no evidence of cellulitis. MS/ Extremity: Pulses equal, no cyanosis. Neurovascular intact. Full, normal range of motion. Neuro: Awake and alert, GCS 15, oriented to person, place, time, and situation. Cranial nerves II-XII grossly intact. Motor strength 5/5 in all extremities. Sensory grossly intact. Cerebellar exam normal. Normal gait. Psych: Awake, alert, with orientation to person, place and time. Behavior, mood, and affect are within normal limits. 05:36 Back: ROM is painful, with all movement, normal spinal alignment noted, CVA tenderness, is absent, vertebral tenderness, is not appreciated, muscle spasm, is appreciated in the left low back, Straight leg raises: left lower extremity illicits pain, at 60 degrees. Vital Signs: 04:45 BP 101 / 65; Pulse 99; Resp 18; Temp 98.1(O); Pulse Ox 97% on R/A; Weight 99.79 kg; lg3 Height 5 ft. 5 in. (165.10 cm); Pain 8/10; 06:01 BP 123 / 76; Pulse 82; Resp 16; Temp 98.1; Pulse Ox 99% on R/A; imtiaz 04:45 Body Mass Index 36.61 (99.79 kg, 165.10 cm) lg3 MDM: 06:25 Differential diagnosis: arthritis, chronic back pain, Scoliosis sprain. Data reviewed: [facility] vital signs, nurses notes, old medical records. Data interpreted: Pulse oximetry: on room air is 99 %. Interpretation: normal. Counseling: I had a detailed discussion with the patient and/or guardian regarding: the historical points, exam findings, and any diagnostic results supporting the discharge/admit diagnosis, the need for outpatient follow up, to return to the emergency department if symptoms worsen or persist or if there are any questions or concerns that arise at home. Response to treatment: the patient's symptoms have markedly improved after treatment. 06:28 Patient medically screened. [facility] Administered Medications: 05:55 Drug: Ketorolac 60 mg Route: IM; Site: right gluteus; imtiaz 06:00 Follow up: Response: No adverse reaction imtiaz 06:22 Follow up: Response: Pain is decreased imtiaz Disposition Summary: 01/12/22 06:28 Discharge Ordered Location: Home [facility] Problem: chronic [facility] Symptoms: have improved [facility] Condition: Stable [facility] Diagnosis - Lumbago with sciatica, left side [facility] Followup: [facility] - With: Private Physician - When: 1 - 2 days - Reason: Worsening of condition, Recheck today's complaints, Continuance of care, Re-evaluation by your physician Discharge Instructions: - Discharge Summary Sheet [facility] - Back Injury Prevention, [id number] [facility] - Chronic Back Pain, Xird-[id number]-[id number] [facility] - Sciatica, Jodj-nn-[id number] [facility] - Back Exercises, Fjdr-[id number]-Gytb [facility] Forms: - Medication Reconciliation Form [facility] - Thank You Letter [facility] - Antibiotic Education [facility] - Prescription Opioid Use [facility] Prescriptions: - Cyclobenzaprine 10 mg Oral Tablet - take 1 tablet by ORAL route every 8 hours As needed; 15 tablet; Refills: 0, [facility] Product Selection Permitted - Diclofenac Sodium 75 mg Oral Tablet Sustained Release - take 1 tablet by ORAL route 2 times per day; 30 tablet; Refills: 0, Product [facility] Selection Permitted Signatures: nAh Benz RN RN 3 Sandip Springer MD MD 7 Arabella Jones RN RN imtiaz
--- NOTE | 2022-01-12 06:29 | ER ---
Nurse's Notes [facility] Name: Lizbet Solares Age: 56 yrs Sex: Female : 1965 Arrival Date: 01/12/2022 Time: 04:39 Bed 19 Private MD: Diagnosis: Lumbago with sciatica, left side Presentation: 01/12 04:45 Chief complaint: Patient states: " I know it is my sciatica, but the pain just knocks lg3 me to the ground." Patient states that the sciatic pain began three months ago. Coronavirus screen: Vaccine status: Patient reports receiving the 2nd dose of the covid vaccine. Moderna. Ebola Screen: Patient negative for fever greater than or equal to 101.5 degrees Fahrenheit, and additional compatible Ebola Virus Disease symptoms Patient denies exposure to infectious person. Patient denies travel to an Ebola-affected area in the 21 days before illness onset. Initial Sepsis Screen: Does the patient meet any 2 criteria? No. Patient's initial sepsis screen is negative. Does the patient have a suspected source of infection? No. Patient's initial sepsis screen is negative. Risk Assessment: Do you want to hurt yourself or someone else? Patient reports no desire to harm self or others. Onset of symptoms is unknown. 04:45 Method Of Arrival: Wheelchair lg3 04:48 Acuity: NAFISA 3 lg3 Triage Assessment: 04:47 General: Appears uncomfortable, Behavior is calm, cooperative, appropriate for age. lg3 Pain: Complains of pain in left gluteal fold, left hamstring and left quadriceps Pain currently is 8 out of 10 on a pain scale. GI: Reports diarrhea. Historical: - Allergies: 04:47 No Known Allergies; lg3 - Home Meds: 04:59 Advil Oral [Active]; imtiaz - PMHx: 04:47 Anxiety; Depression; Hypertension; lg3 - PSHx: 04:47 bilateral heels; decompression of vertebrae; partial thyroidectomy; lg3 - Immunization history:: Flu vaccine is not up to date. - Social history:: Smoking status: Patient/guardian denies using tobacco, the patient reports quitting approximately 20 years ago. Screenin:58 Abuse screen: Denies threats or abuse. Denies injuries from another. Nutritional imtiaz screening: No deficits noted. Tuberculosis screening: No symptoms or risk factors identified. Fall Risk None identified. Assessment: 04:52 Reassessment: No changes from previously documented assessment. Recv'd pt to room #19, imtiaz at this time. 04:56 Reassessment: Per the pt's report,"..yes, I was diagnosed with sciatica about 3 months imtiaz ago...it was here...but I had diarrhea...no, I didn't take anything for it...no, I didn't take anything like Immodium...yes, I had eaten at [employer]...Chicken Avocado...". 06:01 Reassessment: Awaiting dispo. imtiaz Vital Signs: 04:45 BP 101 / 65; Pulse 99; Resp 18; Temp 98.1(O); Pulse Ox 97% on R/A; Weight 99.79 kg; lg3 Height 5 ft. 5 in. (165.10 cm); Pain 8/10; 06:01 BP 123 / 76; Pulse 82; Resp 16; Temp 98.1; Pulse Ox 99% on R/A; imtiaz 04:45 Body Mass Index 36.61 (99.79 kg, 165.10 cm) lg3 ED Course: 04:39 Patient arrived in ED. ja2 04:47 Triage completed. lg3 04:52 Arabella Jones, RN is Primary Nurse. imtiaz 04:58 Patient has correct armband on for positive identification. Bed in low position. Call imtiaz light in reach. Side rails up X2. 04:59 No provider procedures requiring assistance completed. imtiaz 05:00 Arm band placed on. imtiaz 05:01 Sandip Springer MD is Attending Physician. 7 06:55 Patient did not have IV access during this emergency room visit. imtiaz Administered Medications: 05:55 Drug: Ketorolac 60 mg Route: IM; Site: right gluteus; imtiaz 06:00 Follow up: Response: No adverse reaction imtiaz 06:22 Follow up: Response: Pain is decreased imtiaz Outcome: 04:59 Condition: stable imtiaz 06:28 Discharge ordered by . mh7 06:55 Discharged to home ambulatory. imtiaz 06:55 Discharge instructions given to patient, Instructed on discharge instructions, follow up and referral plans. Demonstrated understanding of instructions, follow-up care. 06:56 Patient left the ED. imtiaz Signatures: Anh Benz RN RN lg3 Sandip Springer MD MD mh7 Diane Zhou [facility] Arabella Jones RN RN imtiaz Corrections: (The following items were deleted from the chart) 04:48 04:45 Acuity: NAFISA 4 lg3 lg3
[2022-01-12 07:21] VITALS: TEMP 98.1
[2022-01-12 07:23] VITALS: BP 123/76; O2SAT 99
== END 2022-01-12 06:56 | disposition home or self-care (01) ==
LOC: ER 04:36
DX: M54.42 Lumbago with sciatica, left side (principal); I10 Essential (primary) hypertension
CPT/HCPCS: 96372; 99283

== ENCOUNTER 2022-02-05 02:29 | Emergency (ER) | payer BC ==
--- OUTSIDE RECORDS SUMMARY | 2022-02-05 02:33 | XMS REPORT | Continuity of Care Document ---
:1965 Author Organization [facility] t Address 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 Primary Care Physician Lopez [place] Attending Clinician Unavailable Lopez Pulliam Attending Clinician Pamela Munoz Attending Clinician Doctor Unassigned, Name Attending Clinician Unavailable Only, Test Attending Clinician Unavailable Paz ALMAGUER Attending Clinician Unavailable VALERIE GARRETT Admitting Clinician Unavailable Payers Payer Name Policy Type Policy Number Effective Date Expiration Date S leticia HERNANDEZ [id number] 2019 ADVANTAGE O 00:00:00 Advance Directives Directive Decision Effective Termination Comments Source Date Date Healthcare Agents on N/A [facility] ersity [facility] Agent Medical RelationshipCommunicationEngle[facility] Or[facility]MotherHealth Care [phone] (Home) Problems Condition Condition Condition Status Onset Resolution Last Treating Co mments Source Name Details Category Date Date Treatment Clinician Date Sciatica Sciatica Disease Active Unive rs of right of right 4-06 ity of side side 00:00: [place] 00 Medical Branch Chronic Chronic Disease Active Univers midline midline 4-06 ity of low back low back 00:00: [place] pain pain 00 Medical without without Branch sciatica sciatica Abnormal Abnormal Disease Active Unive rs liver liver 1-27 [place] Severe Severe Disease Active Univers obstructiv obstructiv 1-26 it y of e sleep e sleep 00:00: [place] apnea apnea Medical Branch Prediabete Prediabete Disease Active U nivers s s 1-19 ity of 00:00: [place] [facility] Mixed Mixed Disease Active Univers hyperlipid hyperlipid 1-19 it y of emia emia 00:00: Medical Branch Abnormal Abnormal Disease Active Unive rs LFTs LFTs -19 ity of 00:00: [place] [facility] GERD GERD Disease Active Univers [...] ity of with body with body 00:00: Brand[place] s mass index mass index 00 Me [...] of hypothyroi hypothyroi 00:00: g of this [place] dism dism note Medical might be Branch [...] Active Univers ALLERGIE Class ity of S [facility] NO KNOWN Allergy Active [facility] ALLERGIE S Social History Social Habit Start Date Stop Date Quantity Comments Source History SDOH University o f Alcohol Frequency [place] M edical Branch History SDOH University o f Alcohol Std [place] Medical Drinks Branch History [facility] University o f Alcohol Binge [place] Medic al Branch Alcohol intake 2022-02-02 2022-02-02 Ex-drinker [facility] 00:00:00 00:00:00 (finding) [facility] Exposure to 2022-01-18 2022-01-28 Not sure [facility] SARS-CoV-2 00:00:00 10:59:00 [facility] (event) Branch Tobacco use and 2021-10-21 2021-10-21 Never used Universit y of exposure 00:00:00 00:00:00 [facility] Alcohol Comment 2021-10-21 2021-10-21 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 Clinician (SIG) Name Name methylPREDN Yes [id number] Take by Univers ISolone 4-20 mouth ity of (MEDROL, 00:00: SEE-INSTRU Branden as GELACIO,) 4 mg 00 CTIONS. Medica l tablets follow Branch package directions gabapentin Yes [id number] 300mg Take 1 Univers 300 mg 4-20 capsule by ity of capsule 00:00: mouth 2 (two) Medical times Branch daily as needed for Pain (scale 7-10). methylPREDN Yes [id number] Take by Univers ISolone 4-20 mouth ity of (MEDROL, 00:00: SEE-INSTRU Branden as GELACIO,) 4 mg 00 CTIONS. Medica l tablets follow Branch package directions gabapentin Yes [id number] 300mg Take 1 Univers 300 mg 4-20 capsule by ity of capsule 00:00: mouth 2 (two) Medical times Branch daily as needed for Pain (scale 7-10). ARIPiprazol Yes 5mg Take 5 mg U nivers e (ABILIFY) 2-02 by mouth ity of 5 mg tablet 14:14: daily. [address] ARIPiprazol 0 Yes 5mg Take 5 mg U nivers e (ABILIFY) 2-02 by mouth ity of 5 mg tablet 14:14: daily. [address] omeprazole 0 Yes [id number] 20mg Take 1 Univers 20 mg 1-11 capsule by ity of capsule 00:00: mouth [place] 00 daily. Medical Branch liothyronin Yes [id number] 5ug Take 1 Univers e 5 mcg 1-11 tablet by ity of tablet 00:00: mouth 2 [place] 00 (two) Medical times Branch daily. SYNTHROID 0 Yes [id number] 75ug Take 1 U nivers 75 mcg 1-11 tablet by ity of tablet 00:00: mouth [place] 00 every Medical morning. Branch BRAND MEDICALLY NECESSARY metoprolol 0 Yes [id number] 100mg Take 1 Univers succinate 1-11 tablet by ity o f XL 100 mg 00:00: mouth [place] 24 hr 00 daily. Medical tablet Branch felodipine 0 Yes [id number] 5mg Take 1 U nivers 5 mg 24 hr 1-11 tablet by ity of tablet 00:00: mouth at [place] 00 bedtime. Medical Branch rosuvastati 0 Yes [id number] 20mg Take 1 Univers n 20 mg 1-11 tablet by ity of tablet 00:00: mouth at [place] 00 bedtime. Medical Branch omeprazole 0 Yes [id number] 20mg Take 1 Univers 20 mg 1-11 capsule by ity of capsule 00:00: mouth [place] 00 daily. Medical Branch liothyronin 0 Yes [id number] 5ug Take 1 Univers e 5 mcg 1-11 tablet by ity of tablet 00:00: mouth 2 [place] 00 (two) Medical times Branch daily. SYNTHROID 0 Yes [id number] 75ug Take 1 U nivers 75 mcg 1-11 tablet by ity of tablet 00:00: mouth [place] 00 every Medical morning. Branch BRAND MEDICALLY NECESSARY metoprolol 0 Yes [id number] 100mg Take 1 Univers succinate 1-11 tablet by ity o f XL 100 mg 00:00: mouth [place] 24 hr 00 daily. Medical tablet Branch felodipine Yes [id number] 5mg Take 1 U nivers 5 mg 24 hr 1-11 tablet by ity of tablet 00:00: mouth at [place] 00 bedtime. Medical Branch rosuvastati Yes [id number] 20mg Take 1 Univers n 20 mg 1-11 tablet by ity of tablet 00:00: mouth at [place] 00 bedtime. Medical Branch buPROPion Yes Univers XL 300 mg 5-21 ity of 24 hr 00:00: [place] tablet 00 Medical Branch buPROPion Yes Univers XL 300 mg 5-21 ity of 24 hr 00:00: [place] tablet Medical Branch escitalopra Yes 20mg Take 20 mg Univers m oxalate 3-27 by mouth ity of 20 mg 00:00: daily. [place] tablet Medical Branch escitalopra Yes 20mg Take 20 mg Univers m oxalate 3-27 by mouth ity of 20 mg 00:00: daily. [place] tablet Medical Branch Immunizations Ordered Filled Immunization Date Status Comments [facility] e Immunization Name Name SARS-COV-2 COVID-19 2021-10-21 Completed Unive rsity of MODERNA BOOSTER 00:00:00 [facility] ica VACCINE Branch SARS-COV-2 COVID-19 2021-10-21 Completed Unive rsity of MODERNA 0.25ML 00:00:00 [facility] shelia BOOSTER VACCINE Branch Influenza Virus 2021-03-17 Completed Universit y of Vaccine Quad IM, 00:00:00 [facility] dical Preserv and ABX Branch Free 6 MO-64 YRS Influenza Virus 2021-03-17 Completed Universit y of Vaccine [facility] IM, 00:00:00 [place] Me dical Preserv and ABX Branch Free 6 MO-64 YRS SARS-COV-2 COVID-19 2021-01-15 Completed Unive rsity of MODERNA VACCINE 00:00:00 [facility] SARS-COV-2 COVID-19 2021-01-15 Completed Unive rsity of MODERNA VACCINE 00:00:00 [facility] SARS-COV-2 COVID-19 2020-12-18 Completed Unive rsity of MODERNA VACCINE 00:00:00 [facility] SARS-COV-2 COVID-19 2020-12-18 Completed Unive rsity of MODERNA VACCINE 00:00:00 [facility] Vital Signs Vital Name Observation Time Observation Value Comments Source Systolic blood 2022-01-28 145 mm[Hg] did not take BP University of pressure 16:24:00 meds today [facility] Diastolic blood 2022-01-28 98 mm[Hg] did not take BP [facility] of pressure 16:24:00 meds today [facility] Heart rate 2022-01-28 89 /min University 16:24:00 [facility] Body height 2022-01-28 165.1 cm University 16:24:00 [facility] Body weight 2022-01-28 99.791 kg [facility] 16:24:00 [facility] BMI 2022-01-28 36.61 kg/m2 University 16:24:00 [facility] Procedures This patient has no known procedures. Encounters Start End Encounter Admission Attending Care Care Encounter Source Date/Time Date/Time Type Type Clinicians Facility Department ID 2022-02-06 2022-02-06 [facility] [id number] Univers 00:00:00 00:00:00 [facility] 2022-02-04 2022-02-04 [facility] [id number] Univers 00:00:00 00:00:00 [facility] [place] [id number] i [place] of [place] [id number] [address] OFFICE BUILDING 2022-02-03 2022-02-03 Outpatient Kurtis B[place] [facility] [id number] Univers 00:00:00 00:00:00 [facility] 2022-01-28 2022-01-28 [facility] [id number] Univers 11:30:00 12:02:51 Visit [facility] [place] [id number] i [place] [id number] [address] OFFICE BUILDING 2020-10-01 2020-10-01 Emergency Zachary Mcnamara [facility] [id number] 15:38:00 17:19:00 Pamela Dale [id number] [place] 4.2.7.2.686 [place] [id number] 2020-10-01 2020-10-01 Orders Doctor PINKY [id number] 00:00:00 00:00:00 Only Unassigned, [place] 350.1.13.10 [place] [facility] 4.2.7.2.686 [id number] 2020-04-23 2020-07-03 Laboratory Only, [place] [id number] 09:22:46 08:51:45 Only Test Health 350.1.13.10 Specialty 4.2.7.2.686 [facility] [id number] [place] [id number] 2020-02-08 2020-02-08 Outpatient [facility] [id number] 2-2 [facility] 00:00:00 00:00:00 [id number] Results Test Description Test Time Test Comments Results Result [facility] e Comments US, THYROID 2020-02-08 Reason for FINAL REPORT PATIENT 14:13:00 Exam:->HX OF ID: [id number] PARTIAL Thyroid Ultrasound HYPROIDECTOY History: Partial thyroidectomy [...] MDReport Verified Date/Time: 02/08/2020 14:13:43 Reading Location: [facility] Diagnostic Imaging Reading Room - [place] [address] D CULTURE 2018-04-09 00:00:00 Test Item Value Reference Range Interpretation Comme nts CULTURE (BEAKER) (test code = 1095) No growth in 5 days BLOOD [id number] 00:00:00 Test Item Value Reference Range Interpretation Comments CULTURE (BEAKER) (test No growth in 5 days code = 1095) BASIC METABOLIC [id number] 11:06:00 Test Item Value Reference Range Interpretation [...] TO CALCULA TE ESTIMATED GFR. BASIC METABOLIC [id number] 07:36:00 Test Item Value Reference Range Interpretation [...] TO CALCULA TE ESTIMATED GFR. BASIC METABOLIC [id number] 19:50:00 Test Item Value Reference Range Interpretation [...] TO CALCULA TE ESTIMATED GFR. BASIC METABOLIC [id number] 08:59:00 Test Item Value Reference Range Interpretation [...] TO CALCULA TE ESTIMATED GFR. BASIC METABOLIC [id number] 01:18:00 Test Item Value Reference Range Interpretation [...] TO CALCULA TE ESTIMATED GFR. BASIC METABOLIC [id number] 16:32:00 Test Item Value Reference Range Interpretation [...] TO CALCULA TE ESTIMATED GFR. U/S, ABDOMINAL, [id number] 14:54:00Abdomen limited area? Add comment if clarification [...] Peters Verified Date/Time: 04/05/2018 14:54:01 Reading Location: [address] Ultrasound Reading Room HEPATIC FUNCTION [id number] 14:03:00 Test Item Value Reference Range Interpretation [...] = 21 U/L 6-55 347) BASIC METABOLIC [id number] 09:16:00 Test Item Value Reference Range Interpretation [...] ESTIMATED GFR. CBC W/PLT COUNT & AUTO [id number] 08:44:00 Test Item Value Reference Range Interpretation [...] (BEAKER) (test code = 2801) BASIC METABOLIC [id number] 01:06:00 Test Item Value Reference Range Interpretation [...] m DATA TO CALCULA TE ESTIMATED GFR. [id number] 18:02:00 Test Item Value Reference Range Interpretation Comments AMMONIA (BEAKER) (test code = 348) 35 mol/L 18-72 BASIC METABOLIC [id number] 17:31:00 Test Item Value Reference Range Interpretation [...] TO CALCULA TE ESTIMATED GFR. BASIC METABOLIC [id number] 09:29:00 Test Item Value Reference Range Interpretation [...] TO CALCULA TE ESTIMATED GFR. BLOOD GAS, [id number] 05:19:00 Test Item Value Reference Range Interpretation [...] C (test code = 1818) BASIC METABOLIC [id number] 03:52:00 Test Item Value Reference Range Interpretation [...] m DATA TO CALCULA TE ESTIMATED GFR. [id number] 03:48:00 Test Item Value Reference Range Interpretation Comments PHOSPHORUS (BEAKER) (test code = 3.6 mg/dL 2.3-4.7 604) [id number] 03:48:00 Test Item Value Reference Range Interpretation Comments MAGNESIUM (BEAKER) (test code = 2.1 mg/dL 1.6-2.6 627) LACTIC ACID, VENOUS, WHOLE [id number] 03:44:00 Test Item Value Reference Range Interpretation [...] WBC 0-0 (BEAKER) (test code = 413) [id number] 02:06:00 Test Item Value Reference Range Interpretation Comments CORTISOL, TOTAL (BEAKER) (test 17.8 ug/dL 3.7-19.4 code = 2755) TSH/FREE T4 IF [id number] 02:06:00 Test Item Value Reference Range Interpretation Comments THYROID STIMULATING HORMONE 1.09 uIU/mL 0.35-4.94 (BEAKER) (test code = 772) HIV-1 ANTIGEN WITH HIV-1/2 [id number] 00:06:00 Test Item Value Reference Range Interpretation Comments HIV-1 ANTIGEN WITH HIV 1\T\2 Nonreactive Nonreactive ANTIBODY (2) (BEAKER) (test code = 2586) BASIC METABOLIC [id number] 23:30:00 Test Item Value Reference Range Interpretation [...] ESTIMATED GFR. RAD, CHEST, 1 VIEW, NON [id number] 21:34:00Reason for exam:->ALTERED MENTAL STATUSReason for exam:->NEUROLOGIC [...] MDReport Verified Date/Time: 04/03/2018 21:34:48 Reading Location: [address] Reading Room OSMOLALITY, [id number] 21:10:00 Test Item Value Reference Range Interpretation Comments OSMOLALITY, SERUM (BEAKER) (test 236 mOsm/kg 275-295 L code = 615) RAPID DRUG SCREEN, [id number] 20:47:00 Test Item Value Reference Range Interpretation [...] situations. Chain of custody not maintained. Some emdk-psx-deuncmf medications, as well as adulterants, may cause inaccurate results. Clinical correlation should be applied. A more comprehensive drug screen or confirmation of a detected drug may be performed upon request.[id number] 20:43:00 Test Item Value Reference Range Interpretation Comments PHOSPHORUS (BEAKER) (test code = 1.8 mg/dL 2.3-4.7 L 604) HEPATIC FUNCTION [id number] 20:43:00 Test Item Value Reference Range Interpretation [...] (test code = 22 U/L 6-55 347) [id number] 20:43:00 Test Item Value Reference Range Interpretation Comments LIPASE (BEAKER) (test code = 749) 21 U/L 8-78 CREATININE, RANDOM [id number] 20:40:00 Test Item Value Reference Range Interpretation Comments CREATININE URINE (BEAKER) (test 11.7 mg/dL code = 375) Reference Range: No NormalsSODIUM, RANDOM [id number] 20:40:00 Test Item Value Reference Range Interpretation Comments SODIUM URINE (BEAKER) (test code = 60 meq/L 243) Reference Range: No NormalsOSMOLALITY, [id number] 20:40:00 Test Item Value Reference Range Interpretation Comments OSMOLALITY URINE (BEAKER) (test 169 mOsm/kg 40-1400 code = 614) [id number] 20:37:00 Test Item Value Reference Range Interpretation Comments ETHANOL (BEAKER) (test code = 400) < mg/dL <=10 [id number] 20:35:00 Test Item Value Reference Range Interpretation Comments AMMONIA (BEAKER) (test code = 348) 33 mol/L 18-72 MR, MRA, BRAIN, WITHOUT [id number] 19:42:00FINAL REPORT MRA head and neck without contrast. CLINICAL HISTORY: Stroke. CO MPARISON: None. TECHNIQUE: Two- and three-dimensional fdre-ax-bqwcse MRA images of the intra- and extracranial [...] right common carotid artery (image 1). MRA [place]: There is no vessel occlusion, [...] Leela Venturaort Verified Date/Time: 04/03/201819:42:20 Reading Location: [address] Transitional Reading Room MR, MRA, NECK, WITHOUT IV [id number] 19:42:00FINAL REPORT MRA head and neck without contrast. CLINICAL HISTORY: Stroke. COMPARISON: None. TECHNIQUE: Two- and three-dimensional zaeg-in-hlhqat MRA images of the intra- and extracranial [...] right common carotid artery (image 1). MRA [place]: There is no vessel occlusion, [...] Leela Ventura Verified Date/Time: 04/03/201819:42:20 Reading Location: [address] Transitional Reading Room CREATINE KINASE (CK), TOTAL AND [id number] 19:36:00 Test Item Value Reference Range Interpretation Comments CREATINE KINASE TOTAL (BEAKER) 103 U/L 29-200 (test code = 380) CREATINE KINASE-MB (BEAKER) (test 2.5 ng/mL 0.0-6.6 code = 750) CREATINE KINASE-MB INDEX (BEAKER) 2.4 % (test code = 395) CK-MB Reference Range:<6.7 Normal6.7-10.0 Borderline>10.0 AbnormalTROPONIN [id number] 19:36:00 Test Item Value Reference Range Interpretation Comments TROPONIN I (JESSY) (test code = 397) < ng/mL 0.00-0.03 [...] neurological disease, and persistent tachyarrhythmia.MR, BRAIN, WITHOUT [id number] 19:34:00FINAL REPORT Exam: MRI brain without contrast. [...] Verified Date/Time: 04/03/2018 19:34:38 Reading Locat ion: [facility] B1 C013T Transitional Reading Room Electronically signed by: LEELA VENTURA MD on04/03/2018 07:34 PMB-TYPE NATRIURETIC FACTOR (BNP)2018-04-03 19:33:00 Test Item Value Reference Range Interpretation Comments B-TYPE NATRIURETIC PEPTIDE (JESSY) 90 pg/mL 0-100 (test code = 700) URINALYSIS W/ [id number] 18:43:00 Test Item Value Reference Range Interpretation [...] 520) SOURCE(BEAKER) (test code = Urine, [place] 4793) BASIC METABOLIC [id number] 18:32:00 Test Item Value Reference Range Interpretation [...] m DATA TO CALCULA TE ESTIMATED GFR. [id number] 18:28:00 Test Item Value Reference Range Interpretation Comments MAGNESIUM (BEAKER) (test code = 1.7 mg/dL 1.6-2.6 627) [id number] 18:02:00 Test Item Value Reference Range Interpretation [...] PERCENT (BEAKER) (test code = 2801) POCT-GLUCOSE [id number] 17:49:00 Test Item Value Reference Range Interpretation Comments POC-GLUCOSE METER 100 mg/dL 70-110 TESTED AT [facility] 6720 (BEAKER) (test code = [place] 1538) [address] CT, BRAIN/STROKE [id number] 17:45:00Reason for exam:->stroke protocolIs the patient ?->NoWhat [...] Almaguer at 1740 hours. Signed: Nolan Pretty [facility] Verified Date/Time: 04/03/2018 17:45:48 Reading Location: [address] Reading Room
--- NOTE | 2022-02-05 04:39 | EDPHYS ---
Physician Documentation [facility] Name: Lizbet Solares Age: 56 yrs Sex: Female : 1965 Arrival Date: 02/05/2022 Time: 02:34 Bed 10 Private MD: BARRETT Physician Ludwin Royal HPI: 02/05 04:35 This 56 yrs old Female presents to ER via Wheelchair with complaints of Hip lena Pain - Left. 04:35 The patient or guardian reports pain. that occurred at an unknown site, sustained from lena unknown reason, There is no obvious deformity, The patient is able to self ambulate. The patient is able to bear their full body weight. The complaints affect the left hip. Onset: The symptoms/episode began/occurred 2 day(s) ago. Modifying factors: The symptoms are alleviated by nothing, the symptoms are aggravated by any movement. Associated signs and symptoms: Loss of consciousness: the patient experienced no loss of consciousness. Severity of symptoms: At their worst the symptoms were moderate, in the emergency department the symptoms are unchanged. The patient has not experienced similar symptoms in the past. Historical: - Allergies: 03:40 No Known Allergies; tw5 - PMHx: 03:40 Anxiety; Depression; Hypertension; tw5 - PSHx: 03:40 bilateral heels; decompression of vertebrae; partial thyroidectomy; tw5 - Immunization history:: Flu vaccine is not up to date. - Social history:: Smoking status: Patient/guardian denies using tobacco, the patient reports quitting approximately 20 years ago. - Family history:: not pertinent. ROS: 04:35 Constitutional: Negative for fever, chills, and weight loss, Eyes: Negative for injury, lena pain, redness, and discharge, ENT: Negative for injury, pain, and discharge, Neck: Negative for injury, pain, and swelling, Cardiovascular: Negative for chest pain, palpitations, and edema, Respiratory: Negative for shortness of breath, cough, wheezing, and pleuritic chest pain, Abdomen/GI: Negative for abdominal pain, nausea, vomiting, diarrhea, and constipation, Back: Negative for injury and pain, : Negative for injury, bleeding, discharge, and swelling, Skin: Negative for injury, rash, and discoloration, Neuro: Negative for headache, weakness, numbness, tingling, and seizure, Psych: Negative for depression, anxiety, suicide ideation, homicidal ideation, and hallucinations, Allergy/Immunology: Negative for hives, rash, and allergies, Endocrine: Negative for neck swelling, polydipsia, polyuria, polyphagia, and marked weight changes, Hematologic/Lymphatic: Negative for swollen nodes, abnormal bleeding, and unusual bruising. 04:35 MS/extremity: Positive for decreased range of motion, pain, tenderness, of the left hip. Exam: 04:35 Constitutional: This is a well developed, well nourished patient who is awake, alert, lena and in no acute distress. Head/Face: Normocephalic, atraumatic. Eyes: Pupils equal round and reactive to light, extra-ocular motions intact. Lids and lashes normal. Conjunctiva and sclera are non-icteric and not injected. Cornea within normal limits. Periorbital areas with no swelling, redness, or edema. ENT: Nares patent. No nasal discharge, no septal abnormalities noted. Tympanic membranes are normal and external auditory canals are clear. Oropharynx with no redness, swelling, or masses, exudates, or evidence of obstruction, uvula midline. Mucous membranes moist. Neck: Trachea midline, no thyromegaly or masses palpated, and no cervical lymphadenopathy. Supple, full range of motion without nuchal rigidity, or vertebral point tenderness. No Meningismus. Chest/axilla: Normal chest wall appearance and motion. Nontender with no deformity. No lesions are appreciated. Cardiovascular: Regular rate and rhythm with a normal S1 and S2. No gallops, murmurs, or rubs. Normal PMI, no JVD. No pulse deficits. Respiratory: Lungs have equal breath sounds bilaterally, clear to auscultation and percussion. No rales, rhonchi or wheezes noted. No increased work of breathing, no retractions or nasal flaring. Abdomen/GI: Soft, non-tender, with normal bowel sounds. No distension or tympany. No guarding or rebound. No evidence of tenderness throughout. Female : Normal external genitalia. Skin: Warm, dry with normal turgor. Normal color with no rashes, no lesions, and no evidence of cellulitis. MS/ Extremity: Pulses equal, no cyanosis. Neurovascular intact. Full, normal range of motion. Neuro: Awake and alert, GCS 15, oriented to person, place, time, and situation. Cranial nerves II-XII grossly intact. Motor strength 5/5 in all extremities. Sensory grossly intact. Cerebellar exam normal. Normal gait. Psych: Awake, alert, with orientation to person, place and time. Behavior, mood, and affect are within normal limits. 04:35 Back: pain, is absent, ROM is normal, normal spinal alignment noted, CVA tenderness, is absent. Vital Signs: 03:37 BP 129 / 76; Pulse 76; Resp 18; Temp 98.6; Pulse Ox 97% ; Weight 99.79 kg; Height 5 ft. tw5 5 in. (165.10 cm); Pain 8/10; 03:37 Body Mass Index 36.61 (99.79 kg, 165.10 cm) tw5 MDM: 03:11 Patient medically screened. lena 04:37 Differential diagnosis: bursitis, arthritis, strain. Data reviewed: vital signs, nurses lena notes. Data interpreted: dynamotor repairer: not applicable for this patient encounter. rate is 18 beats/min, rhythm is regular, Pulse oximetry: on room air is 97 %. Test interpretation: by ED physician or midlevel provider: plain radiologic studies. Counseling: I had a detailed discussion with the patient and/or guardian regarding: the historical points, exam findings, and any diagnostic results supporting the discharge/admit diagnosis, lab results, radiology results. 02/05 03:11 Order name: Pelvis XRAY [facility] 02/05 03:11 Order name: Hip Left 2 View XRAY [facility] Administered Medications: 04:58 Drug: Webster (HYDROcodone-acetaminophen) 10 mg-325 mg 1 tabs Route: PO; ag7 05:13 Follow up: Response: No adverse reaction ag7 04:58 Drug: Motrin (ibuprofen) 600 mg Route: PO; ag7 05:13 Follow up: Response: No adverse reaction ag7 Disposition Summary: 02/05/22 04:39 Discharge Ordered Location: Home lena Problem: new lena Symptoms: have improved lena Condition: Stable lena Diagnosis - Pain in left hip lena - Pain in hip lena - Sciatica, left side lena Followup: lena - With: Private Physician - When: 2 - 3 days - Reason: Recheck today's complaints, Continuance of care, Re-evaluation by your physician Followup: lena - With: Liam Joseph MD - When: 2 - 3 days - Reason: Recheck today's complaints, Re-evaluation by your physician Discharge Instructions: - Discharge Summary Sheet lena - Arthritis lena - Musculoskeletal Pain lena - Sciatica lena - Hip Pain lena - Arthritis, [id number] lena - Sciatica, [id number] [facility] Forms: - Medication Reconciliation Form lena - Thank You Letter lena - Antibiotic Education lena - Prescription Opioid Use [facility] Prescriptions: - Motrin IB 200 mg Oral Tablet - take 2 tablet by ORAL route every 6 hours As needed as needed with food; 30 lena tablet; Refills: 0, Product Selection Permitted - Cyclobenzaprine 5 mg Oral Tablet - take 1 tablet by ORAL route 3 times per day As needed; 15 tablet; Refills: 0, [facility] Product Selection Permitted - Tylenol-Codeine #3 300 mg-30 mg Oral - take 2 tablet by ORAL route every 6 hours; 24 tablet; Refills: 0, Product lena Selection Permitted Signatures: Dispatcher [employer] Ludwin Eisenberg MD MD cha Wood, Tiffany tw5 Yudi Mueller RN RN ag7
--- NOTE | 2022-02-05 04:39 | ER ---
Nurse's Notes [facility] Name: Lizbet Solares Age: 56 yrs Sex: Female : 1965 Arrival Date: 02/05/2022 Time: 02:34 Bed 10 Private MD: Diagnosis: Pain in left hip;Pain in hip;Sciatica, left side Presentation: 02/05 03:37 Chief complaint: Patient states: "Its the left hip the pain stops at my knee. I know it tw5 is the nerve, I had no idea this could happen with the back surgery, but it is terribly painful.". Coronavirus screen: Vaccine status: Patient reports receiving the 2nd dose of the covid vaccine. Moderna. Ebola Screen: Patient negative for fever greater than or equal to 101.5 degrees Fahrenheit, and additional compatible Ebola Virus Disease symptoms Patient denies exposure to infectious person. Patient denies travel to an Ebola-affected area in the 21 days before illness onset. Initial Sepsis Screen: Does the patient meet any 2 criteria? No. Patient's initial sepsis screen is negative. Does the patient have a suspected source of infection? No. Patient's initial sepsis screen is negative. Risk Assessment: Do you want to hurt yourself or someone else? Patient reports no desire to harm self or others. Onset of symptoms is unknown. 03:37 Method Of Arrival: Wheelchair tw5 03:37 Acuity: NAFISA 4 tw5 Triage Assessment: 03:40 General: Appears uncomfortable, Behavior is calm, cooperative, appropriate for age. tw5 Pain: Complains of pain in left hip Pain currently is 8 out of 10 on a pain scale. Historical: - Allergies: 03:40 No Known Allergies; tw5 - PMHx: 03:40 Anxiety; Depression; Hypertension; tw5 - PSHx: 03:40 bilateral heels; decompression of vertebrae; partial thyroidectomy; tw5 - Immunization history:: Flu vaccine is not up to date. - Social history:: Smoking status: Patient/guardian denies using tobacco, the patient reports quitting approximately 20 years ago. - Family history:: not pertinent. Screenin:00 Abuse screen: Denies threats or abuse. Nutritional screening: No deficits noted. ag7 Tuberculosis screening: No symptoms or risk factors identified. Fall Risk No fall in past 12 months (0 pts). No secondary diagnosis (0 pts). No IV (0 pts). Ambulatory Aid- None/Bed Rest/Nurse Assist (0 pts). Gait- Normal/Bed Rest/Wheelchair (0 pts) Mental Status- Oriented to own ability (0 pts). Total Calles Fall Scale indicates No Risk (0-24 pts). Assessment: 03:00 General: Appears in no apparent distress. Behavior is calm, cooperative. Pain: ag7 Complains of pain in pelvis and left hip Pain radiates to left leg Pain currently is 8 out of 10 on a pain scale. Quality of pain is described as sharp, shooting, Pain began suddenly, Is continuous, Alleviated by nothing. Neuro: Level of Consciousness is awake, alert, obeys commands, Oriented to person, place, time, situation, Appropriate for age Hospice Care Transitions Coordinator are equal bilaterally Moves all extremities. Cardiovascular: Heart tones S1 S2 present Capillary refill < 3 seconds in bilateral fingers Patient's skin is warm and dry. Respiratory: Airway is patent Trachea midline Respiratory effort is even, unlabored, Respiratory pattern is regular, symmetrical. Musculoskeletal: Reports pain in pelvis and left leg. Vital Signs: 03:37 BP 129 / 76; Pulse 76; Resp 18; Temp 98.6; Pulse Ox 97% ; Weight 99.79 kg; Height 5 ft. tw5 5 in. (165.10 cm); Pain 8/10; 03:37 Body Mass Index 36.61 (99.79 kg, 165.10 cm) tw5 ED Course: 02:34 Patient arrived in ED. kz 03:11 Ludwin Royal MD is Attending Physician. lena 03:40 Triage completed. tw5 03:40 Arm band placed on left wrist. tw5 04:22 Pelvis XRAY In Process Unspecified. EDMS 04:22 Hip Left 2 View XRAY In Process Unspecified. EDMS 04:28 Yudi Mueller, EVER is Primary Nurse. ag7 04:38 Liam Joseph MD is Referral Physician. lena 05:01 Patient has correct armband on for positive identification. Call light in reach. ag7 05:01 No provider procedures requiring assistance completed. Patient did not have IV access ag7 during this emergency room visit. Administered Medications: 04:58 Drug: Sap[place] (HYDROcodone-acetaminophen) 10 mg-325 mg 1 tabs Route: PO; ag7 05:13 Follow up: Response: No adverse reaction ag7 04:58 Drug: Motrin (ibuprofen) 600 mg Route: PO; ag7 05:13 Follow up: Response: No adverse reaction ag7 Outcome: 04:39 Discharge ordered by . lena 05:01 Condition: stable ag7 05:01 Discharge instructions given to patient, Instructed on discharge instructions, follow up and referral plans. medication usage, Demonstrated understanding of instructions, follow-up care, medications, Prescriptions given X 3. 05:13 Discharged to home via wheelchair. ag7 05:14 Patient left the ED. ag7 Signatures: Dispatcher [employer] EDMS Ludwin Royal MD MD cha Wood, Tiffany tw5 Katya Galaviz Angela RN RN ag7
[2022-02-05] MEDS ORDERED: IBUPROFEN 400 MG TAB ONE (04:57)
[2022-02-05] MEDS ORDERED: HYDROCODONE/APAP 10/325 TAB ONE (04:57)
[2022-02-05] MEDS ORDERED: IBUPROFEN 200 MG TAB PO ONE (04:57)
[2022-02-05 07:13] VITALS: BP 129/76; TEMP 98.6; O2SAT 97
--- NOTE | 2022-02-05 11:18 | RAD REPORT ---
EXAM DESCRIPTION: RAD - Hip Left 2 View - 02/05/2022 4:21 am CLINICAL HISTORY: 56 years Female PAIN TECHNIQUE: Three x-ray views of the pelvis and left hip were performed on 02/05/2022 at 4:20 AM. COMPARISON: Left hip performed on 12/30/2021 FINDINGS: There is no evidence of fracture or dislocation. There is no significant arthritis or dege nerative change. No focal lytic or sclerotic bone lesions are seen. Bone mineralization is normal. No acute soft tissue abnormalities are identified. IMPRESSION: No evidence of acute osseous injury involving the pelvis or left hip. Electronically signed by: Bharati Thacker DO 02/05/2022 4:55 AM CDT Due to temporary technical issues with the PACS/Fluency reporting system, reports are being signed by the in house radiologist without review as a courtesy to ensure prompt reporting. The interpreting r adiologist is fully responsible for the content of the report.
--- NOTE | 2022-02-05 11:19 | RAD REPORT ---
EXAM DESCRIPTION: RAD - Pelvis - 02/05/2022 4:21 am CLINICAL HISTORY: 56 years Female PAIN TECHNIQUE: Three x-ray views of the pelvis and left hip were performed on 02/05/2022 at 4:20 AM. COMPARISON: Left hip performed on 12/30/2021 FINDINGS: There is no evidence of fracture or dislocation. There is no significant arthritis or dege nerative change. No focal lytic or sclerotic bone lesions are seen. Bone mineralization is normal. No acute soft tissue abnormalities are identified. IMPRESSION: No evidence of acute osseous injury involving the pelvis or left hip. Electronically signed by: Bharati Thacker DO 02/05/2022 4:55 AM CDT Due to temporary technical issues with the PACS/Fluency reporting system, reports are being signed by the in house radiologist without review as a courtesy to ensure prompt reporting. The interpreting r adiologist is fully responsible for the content of the report.
== END 2022-02-05 05:14 | disposition home or self-care (01) ==
LOC: ER 02:29
DX: M54.32 Sciatica, left side (principal); I10 Essential (primary) hypertension
CPT/HCPCS: 72170; 99283

== ENCOUNTER 2022-02-14 01:40 | Emergency (ER) | payer BC, MEDICARE ==
--- OUTSIDE RECORDS SUMMARY | 2022-02-14 01:44 | XMS REPORT | Continuity of Care Document ---
:1965 Author Organization [facility] t Address [address] [place] [address] Care Team Providers Name Role Phone RINKU Primary Care Physician Unavailable Linda GALINDO Attending Clinician Unavailable DEVI WOLFE Attending Clinician Unavailable Lopez GENTILE Attending Clinician Unavailable Rinku FLYING SQUAD SALESPERSON Attending Clinician Lopez Pulliam Attending Clinician NaimaPamela Russell Attending Clinician Doctor Unassigned, Name Attending Clinician Unavailable Only, Test Attending Clinician Unavailable Paz ALMAGUER Attending Clinician Unavailable VALERIE GARRETT Admitting Clinician Unavailable Payers Payer Name Policy Type Policy Number Effective Date Expiration Date S [facility] [id number] 2019 ADVANTAGE HMO 00:00:00 BLUE ADVANTAGE [id number] O-MARKETPLACE - BCBS MARKETPLACE PLAN [id number] 2007 2022 HMO 00:00:00 00:00:00 AIXA [id number] 2016 00:00:00 LTR-XYK-PUHMAI/KELLY [id number] 2006 CE PLUS 00:00:00 [facility] [id number] 2018 [facility] Advance Directives Directive Decision Effective Termination Comments Source Date Date Healthcare Agents on N/A NPI: [id number] FileNameRelationshipHealthcare [id number] Agent RelationshipCommunicationRe [facility] [phone] (Home) Problems Condition Condition Condition Status Onset Resolution Last Treating Co mments Source Name Details Category Date Date Treatment Clinician Date Sciatica Sciatica Disease Active NPI:1 83 of right of right 01-14 730992 1 side side 00:00: 00 Chronic Chronic Disease Active NPI:183 midline midline 01-14 7853860 low back low back 00:00: pain pain 00 without without sciatica sciatica Abnormal Abnormal Disease Active NPI:1 83 liver liver 11-06 1483782 ultrasound ultrasound 00:00: 00 Severe Severe Disease Active NPI:183 obstructiv obstructiv 11-05 13 74347 e sleep e sleep 00:00: apnea apnea 00 Prediabete Prediabete Disease Active N PI:183 s s - 8501933 00:00: 00 Mixed Mixed Disease Active NPI:183 hyperlipid hyperlipid 10-29 13 85417 emia emia 00:00: 00 Abnormal Abnormal Disease Active NPI:1 83 LFTs LFTs - 8359944 00:00: 00 GERD GERD Disease Active NPI:183 (gastroeso (gastroeso 1-17 13 06207 phageal phageal 00:00: reflux reflux 00 disease) disease) Mitral Mitral Disease Active NPI:183 valve valve 1-17 1306400 prolapse prolapse 00:00: 00 Anxiety Anxiety Disease Active NPI:183 1-17 2908877 00:00: 00 Pernicious Pernicious Disease Active N PI:183 anemia anemia 1-17 5311110 00:00: 00 Morbid Morbid Disease Active NPI:183 obesity obesity 1-17 7015333 with body with body 00:00: mass index mass index 00 (BMI) of (BMI) of 40.0 or 40.0 or higher higher Major Major Disease Active NPI: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 Last Assessmen t & Plan: Formattin g of this note might be different from the original. Patient followed by endocrine , some labs ordered recently but not done. Allergies, Adverse Reactions, Alerts Allergy Allergy Status Severity Reaction(s) Onset Inactive Treating Comm ents Source Name Type Date Date Clinician NO KNOWN Drug Active NPI:183 ALLERGIE Class [id number] S NO KNOWN Allergy Active [facility] ALLERGIE S Social History Social Habit Start Date Stop Date Quantity Comments Source History SDOH NPI:[id number] Alcohol Frequency History SDOH NPI:[id number] 81 Alcohol Std Drinks History SDOH NPI:[id number] 81 Alcohol Binge Alcohol intake 2022-02-02 2022-02-02 Ex-drinker NPI:[id number] 00:00:00 00:00:00 (finding) Exposure to 2022-01-18 2022-01-28 Not sure NPI:[id number] 1 SARS-CoV-2 (event) 00:00:00 10:59:00 Tobacco use and 2021-10-21 2021-10-21 Never used NPI:[id number] 04394 exposure 00:00:00 00:00:00 Alcohol Comment 2021-10-21 2021-10-21 recovering NPI:[id number] 78078 00:00:00 00:00:00 alcoholic Sex [birth year] NPI:[id number] 00:00:00 00:00:00 Smoking Status Start Date Stop Date Source Former smoker 2021-10-21 00:00:00 2021-10-21 00:00:00 NPI:1831 [id number] Medications Ordered Filled Start Stop Current Ordering Indication Dosage Frequency Signature Comments Components Source Medication Medication Date Date Medication? Clinician (SIG) Name Name methylPREDN Yes [id number] Take by NPI:183 ISolone 4-20 mouth [id number] (MEDROL, 00:00: SEE-INSTRU GELACIO,) 4 mg 00 CTIONS. tablets follow package directions gabapentin Yes [id number] 300mg Take 1 NPI:183 300 mg 4-20 capsule by [id number] capsule 00:00: mouth 2 00 (two) times daily as needed for Pain (scale 7-10). methylPREDN 2021-0 Yes [id number] Take by NPI:183 ISolone 4-20 mouth 8757896 (MEDROL, 00:00: SEE-INSTRU GELACIO,) 4 mg 00 CTIONS. tablets follow package directions gabapentin 2021-0 Yes [id number] 300mg Take 1 NPI:183 300 mg 4-20 capsule by [id number] capsule 00:00: mouth 2 00 (two) times daily as needed for Pain (scale 7-10). methylPREDN 2021-0 Yes [id number] Take by NPI:183 ISolone 4-20 mouth [id number] (MEDROL, 00:00: SEE-INSTRU GELACIO,) 4 mg 00 CTIONS. tablets follow package directions gabapentin 2021-0 Yes [id number] 300mg Take 1 NPI:183 300 mg 4-20 capsule by [id number] capsule 00:00: mouth 2 00 (two) times daily as needed for Pain (scale 7-10). ARIPiprazol 202-0 Yes 5mg Take 5 mg N PI:183 e (ABILIFY) 2-02 by mouth 1318 781 5 mg tablet 14:14: daily. 38 ARIPiprazol 2022-0 Yes 5mg Take 5 mg N PI:183 e (ABILIFY) 2-02 by mouth 1318 781 5 mg tablet 14:14: daily. 38 ARIPiprazol 2022-0 Yes 5mg Take 5 mg N PI:183 e (ABILIFY) 2-02 by mouth 1318 781 5 mg tablet 14:14: daily. 38 omeprazole 202-0 Yes [id number] 20mg Take 1 NPI:183 20 mg 1-11 capsule by [id number] capsule 00:00: mouth 00 daily. liothyronin 2022-0 Yes [id number] 5ug Take 1 NPI:183 e 5 mcg 1-11 tablet by [id number] tablet 00:00: mouth 2 00 (two) times daily. SYNTHROID 2022-0 Yes [id number] 75ug Take 1 N PI:183 75 mcg 1-11 tablet by [id number] tablet 00:00: mouth 00 every morning. BRAND MEDICALLY NECESSARY metoprolol 0 Yes [id number] 100mg Take 1 NPI:183 succinate 1-11 [place] [address] 81 XL 100 mg 00:00: mouth 24 hr 00 daily. tablet felodipine 0 Yes [id number] 5mg Take 1 N PI:183 5 mg 24 hr 1-11 tablet by 1318 781 tablet 00:00: mouth at 00 bedtime. rosuvastati 2021-0 Yes [id number] 20mg Take 1 NPI:183 n 20 mg 1-11 tablet by [id number] tablet 00:00: mouth at 00 bedtime. omeprazole 2021-0 Yes [id number] 20mg Take 1 NPI:183 20 mg 1-11 capsule by [id number] capsule 00:00: mouth 00 daily. liothyronin 0 Yes [id number] 5ug Take 1 NPI:183 e 5 mcg 1-11 tablet by [id number] tablet 00:00: mouth 2 00 (two) times daily. SYNTHROID 0 Yes [id number] 75ug Take 1 N PI:183 75 mcg 1-11 tablet by [id number] tablet 00:00: mouth 00 every morning. BRAND MEDICALLY NECESSARY metoprolol 0 Yes [id number] 100mg Take 1 NPI:183 succinate 1-[place] [address] 81 XL 100 mg 00:00: mouth 24 hr 00 daily. tablet felodipine 0 Yes [id number] 5mg Take 1 N PI:183 5 mg 24 hr 1-11 tablet by 1318 781 tablet 00:00: mouth at 00 bedtime. rosuvastati 2021-0 Yes [id number] 20mg Take 1 NPI:183 n 20 mg 1-11 tablet by [id number] tablet 00:00: mouth at 00 bedtime. omeprazole 2021-0 Yes [id number] 20mg Take 1 NPI:183 20 mg 1-11 capsule by [id number] capsule 00:00: mouth 00 daily. liothyronin 2021-0 Yes [id number] 5ug Take 1 NPI:183 e 5 mcg 1-11 tablet by [id number] tablet 00:00: mouth 2 00 (two) times daily. SYNTHROID 2021-0 Yes [id number] 75ug Take 1 N PI:183 75 mcg 1-11 tablet by [id number] tablet 00:00: mouth 00 every morning. BRAND MEDICALLY NECESSARY metoprolol Yes [id number] 100mg Take 1 NPI:183 succinate 1-[place] 13157 81 XL 100 mg 00:00: mouth 24 hr 00 daily. tablet felodipine Yes [id number] 5mg Take 1 N PI:183 5 mg 24 hr 1-11 tablet by 1318 781 tablet 00:00: mouth at 00 bedtime. rosuvastati Yes [id number] 20mg Take 1 NPI:183 n 20 mg 1-11 tablet by [id number] tablet 00:00: mouth at 00 bedtime. buPROPion 2019-0 Yes NPI:183 XL 300 mg 5-21 [id number] 24 hr 00:00: tablet 00 buPROPion 2020-0 Yes NPI:183 XL 300 mg 5-21 [id number] 24 hr 00:00: tablet 00 buPROPion 2020-0 Yes NPI:183 XL 300 mg 5-21 [id number] 24 hr 00:00: tablet 00 escitalopra 2020-0 Yes 20mg Take 20 mg NPI:183 m oxalate 3-27 by mouth 110145 1 20 mg 00:00: daily. tablet 00 escitalopra 2020-0 Yes 20mg Take 20 mg NPI:183 m oxalate 3-27 by mouth [id number] 1 20 mg 00:00: daily. tablet 00 escitalopra 2020-0 Yes 20mg Take 20 mg NPI:183 m oxalate 3-27 by mouth [id number] 1 20 mg 00:00: daily. tablet 00 Immunizations Ordered Immunization Filled Immunization Date Status Commen ts Source Name Name SARS-COV-2 COVID-19 2021-10-21 Completed NPI:1 [id number] MODERNA BOOSTER 00:00:00 VACCINE SARS-COV-2 COVID-19 2021-10-21 Completed NPI:1 [id number] MODERNA 0.25ML 00:00:00 BOOSTER VACCINE SARS-COV-2 COVID-19 2021-10-21 Completed NPI:1 [id number] MODERNA 0.25ML 00:00:00 BOOSTER VACCINE Influenza Virus 2021-03-17 Completed NPI:[id number] Vaccine Quad IM, 00:00:00 Preserv and ABX Free 6 MO-64 YRS Influenza Virus 2021-03-17 Completed NPI:[id number] Vaccine Quad IM, 00:00:00 Preserv and ABX Free 6 MO-64 YRS Influenza Virus 2021-03-17 Completed NPI:[id number] Vaccine Quad IM, 00:00:00 Preserv and ABX Free 6 MO-64 YRS SARS-COV-2 COVID-19 2021-01-15 Completed NPI:1 [id number] MODERNA VACCINE 00:00:00 SARS-COV-2 COVID-19 2021-01-15 Completed NPI:1 [id number] MODERNA VACCINE 00:00:00 SARS-COV-2 COVID-19 2021-01-15 Completed NPI:1 [id number] MODERNA VACCINE 00:00:00 SARS-COV-2 COVID-19 2020-12-18 Completed NPI:1 [id number] MODERNA VACCINE 00:00:00 SARS-COV-2 COVID-19 2020-12-18 Completed NPI:1 [id number] MODERNA VACCINE 00:00:00 SARS-COV-2 COVID-19 2020-12-18 Completed NPI:1 [id number] MODERNA VACCINE 00:00:00 Vital Signs Vital Name Observation Time Observation Value Comments Source Systolic blood 2022-01-28 16:24:00 145 mm[Hg] did not take BP NPI :[id number] pressure meds today Diastolic blood 2022-01-28 16:24:00 98 mm[Hg] did not take 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 Encounters Start End Encounter Admission Attending Care Care Encounter Source Date/Time Date/Time Type Type Clinicians Facility Department ID 2022-02-16 2022-02-16 Outpatient Kurtis GALINDO [facility] [id number] NPI:183 09:30:00 09:30:00 RADHA [id number] 1 2022-02-09 2022-02-09 Outpatient ALEJANDRA WOLFE [facility] [address] [facility] 08:27:50 12:25:31 RANULFO vega of Medicin e 2022-02-06 2022-02-06 Outpatient Kurtis VALENCIA [facility] [id number] 13112 NPI:183 00:00:00 00:00:00 ADRIANA [id number] 1 2022-02-05 2022-02-05 Telephone Rinku [facility] [id number] NPI:183 00:00:00 00:00:00 Faye HEALTH 350.1.13.10 [id number] [place] 4.2.7.2.686 EL?BLEA [id number] [facility] 044 MEDICAL OFFICE BUILDING 2022-02-04 2022-02-04 [facility] [id number] NPI:183 00:00:00 00:00:00 Adriana Lopez HEALTH 350.1.13.10 1 [id number] CLEAR 4.2.7.2.686 [place] [id number] MEDICAL [facility] OFFICE BUILDING 2022-02-03 2022-02-03 [facility] [id number] NPI:183 00:00:00 00:00:00 ADRIANA [id number] 1 2022-01-28 2022-01-28 [facility] [id number] NPI:183 11:30:00 12:02:51 Visit Adriana Lopez HEALTH [id number] [id number] CLEAR 4.2.7.2.686 [place] [id number] MEDICAL [facility] OFFICE BUILDING 2020-10-01 2020-10-01 Emergency Naima, Zachary [facility] [id number] 15:38:00 17:19:00 Pamela Dale 350.1.13.10 Julio 4.2.7.2.686 [place] [id number] 2020-10-01 2020-10-01 Orders Doctor PINKY [id number] 00:00:00 00:00:00 Only Unassigned, [place] 350.1.13.10 [place] [facility] 4.2.7.2.686 [id number] 2020-04-23 2020-07-03 Laboratory Only, Web [facility] 1.2.840.114 [id number] 09:22:46 08:51:45 Only Test Health 350.1.13.10 Specialty 4.2.7.2.686 [facility] [id number] [place] [id number] 2020-02-08 2020-02-08 Outpatient [facility] [id number] 2-2 [facility] 00:00:00 00:00:00 [id number] Results Test Description Test Time Test Comments Results Result Sourc e Comments US, THYROID 2020-02-08 Reason for FINAL REPORT PATIENT 14:13:00 Exam:->HX OF ID: [id number] PARTIAL Thyroid Ultrasound HYPROIDECTOY History: Partial thyroidectomy [...] MDReport Verified Date/Time: 02/08/2020 14:13:43 Reading Location: [facility] Diagnostic Imaging Reading Room - [place] [address] D CULTURE 2018-04-09 00:00:00 Test Item Value Reference Range Interpretation Comme nts CULTURE (BEAKER) (test code = 1095) No growth in 5 days BLOOD [id number] 00:00:00 Test Item Value Reference Range Interpretation Comments CULTURE (BEAKER) (test No growth in 5 days code = 1095) BASIC METABOLIC [id number] 11:06:00 Test Item Value Reference Range Interpretation [...] TO CALCULA TE ESTIMATED GFR. BASIC METABOLIC [id number] 07:36:00 Test Item Value Reference Range Interpretation [...] TO CALCULA TE ESTIMATED GFR. BASIC METABOLIC [id number] 19:50:00 Test Item Value Reference Range Interpretation [...] TO CALCULA TE ESTIMATED GFR. BASIC METABOLIC [id number] 08:59:00 Test Item Value Reference Range Interpretation [...] TO CALCULA TE ESTIMATED GFR. BASIC METABOLIC [id number] 01:18:00 Test Item Value Reference Range Interpretation [...] TO CALCULA TE ESTIMATED GFR. BASIC METABOLIC [id number] 16:32:00 Test Item Value Reference Range Interpretation [...] TO CALCULA TE ESTIMATED GFR. U/S, ABDOMINAL, [id number] 14:54:00Abdomen limited area? Add comment if clarification [...] MDReport Verified Date/Time: 04/05/2018 14:54:01 Reading Location: [address] Ultrasound Reading Room HEPATIC FUNCTION [id number] 14:03:00 Test Item Value Reference Range Interpretation [...] = 21 U/L 6-55 347) BASIC METABOLIC [id number] 09:16:00 Test Item Value Reference Range Interpretation [...] ESTIMATED GFR. CBC W/PLT COUNT & AUTO [id number] 08:44:00 Test Item Value Reference Range Interpretation [...] (BEAKER) (test code = 2801) BASIC METABOLIC [id number] 01:06:00 Test Item Value Reference Range Interpretation [...] m DATA TO CALCULA TE ESTIMATED GFR. [id number] 18:02:00 Test Item Value Reference Range Interpretation Comments AMMONIA (BEAKER) (test code = 348) 35 mol/L 18-72 BASIC METABOLIC [id number] 17:31:00 Test Item Value Reference Range Interpretation [...] TO CALCULA TE ESTIMATED GFR. BASIC METABOLIC [id number] 09:29:00 Test Item Value Reference Range Interpretation [...] TO CALCULA TE ESTIMATED GFR. BLOOD GAS, [id number] 05:19:00 Test Item Value Reference Range Interpretation [...] C (test code = 1818) BASIC METABOLIC [id number] 03:52:00 Test Item Value Reference Range Interpretation [...] m DATA TO CALCULA TE ESTIMATED GFR. [id number] 03:48:00 Test Item Value Reference Range Interpretation Comments PHOSPHORUS (BEAKER) (test code = 3.6 mg/dL 2.3-4.7 604) [id number] 03:48:00 Test Item Value Reference Range Interpretation Comments MAGNESIUM (BEAKER) (test code = 2.1 mg/dL 1.6-2.6 627) LACTIC ACID, VENOUS, WHOLE [id number] 03:44:00 Test Item Value Reference Range Interpretation [...] WBC 0-0 (BEAKER) (test code = 413) [id number] 02:06:00 Test Item Value Reference Range Interpretation Comments CORTISOL, TOTAL (BEAKER) (test 17.8 ug/dL 3.7-19.4 code = 2755) TSH/FREE T4 IF [id number] 02:06:00 Test Item Value Reference Range Interpretation Comments THYROID STIMULATING HORMONE 1.09 uIU/mL 0.35-4.94 (BEAKER) (test code = 772) HIV-1 ANTIGEN WITH HIV-1/2 [id number] 00:06:00 Test Item Value Reference Range Interpretation Comments HIV-1 ANTIGEN WITH HIV 1\T\2 Nonreactive Nonreactive ANTIBODY (2) (BEAKER) (test code = 2586) BASIC METABOLIC [id number] 23:30:00 Test Item Value Reference Range Interpretation [...] ESTIMATED GFR. RAD, CHEST, 1 VIEW, NON [id number] 21:34:00Reason for exam:->ALTERED MENTAL STATUSReason for exam:->NEUROLOGIC [...] MDReport Verified Date/Time: 04/03/2018 21:34:48 Reading Location: [address] Reading Room OSMOLALITY, [id number] 21:10:00 Test Item Value Reference Range Interpretation Comments OSMOLALITY, SERUM (BEAKER) (test 236 mOsm/kg 275-295 L code = 615) RAPID DRUG SCREEN, [id number] 20:47:00 Test Item Value Reference Range Interpretation [...] situations. Chain of custody not maintained. Some kdag-gby-luyiqop medications, as well as adulterants, may cause inaccurate results. Clinical correlation should be applied. A more comprehensive drug screen or confirmation of a detected drug may be performed upon request.[id number] 20:43:00 Test Item Value Reference Range Interpretation Comments PHOSPHORUS (BEAKER) (test code = 1.8 mg/dL 2.3-4.7 L 604) HEPATIC FUNCTION [id number] 20:43:00 Test Item Value Reference Range Interpretation [...] (test code = 22 U/L 6-55 347) [id number] 20:43:00 Test Item Value Reference Range Interpretation Comments LIPASE (BEAKER) (test code = 749) 21 U/L 8-78 CREATININE, RANDOM [id number] 20:40:00 Test Item Value Reference Range Interpretation Comments CREATININE URINE (BEAKER) (test 11.7 mg/dL code = 375) Reference Range: No NormalsSODIUM, RANDOM [id number] 20:40:00 Test Item Value Reference Range Interpretation Comments SODIUM URINE (BEAKER) (test code = 60 meq/L 243) Reference Range: No NormalsOSMOLALITY, [id number] 20:40:00 Test Item Value Reference Range Interpretation Comments OSMOLALITY URINE (BEAKER) (test 169 mOsm/kg 40-1400 code = 614) [id number] 20:37:00 Test Item Value Reference Range Interpretation Comments ETHANOL (BEAKER) (test code = 400) < mg/dL <=10 [id number] 20:35:00 Test Item Value Reference Range Interpretation Comments AMMONIA (BEAKER) (test code = 348) 33 mol/L 18-72 MR, MRA, BRAIN, WITHOUT [id number] 19:42:00FINAL REPORT MRA head and neck without contrast. CLINICAL HISTORY: Stroke. CO MPARISON: None. TECHNIQUE: Two- and three-dimensional ajvb-uf-iuihwk MRA images of the intra- and extracranial [...] right common carotid artery (image 1). MRA [place]: There is no vessel occlusion, [...] Ventura Verified Date/Time: 04/03/201819:42:20 Reading Location: [address] Reading Room MR, MRA, NECK, WITHOUT IV [id number] 19:42:00FINAL REPORT MRA head and neck without contrast. CLINICAL HISTORY: Stroke. COMPARISON: None. TECHNIQUE: Two- and three-dimensional bwun-hh-zblvwh MRA images of the intra- and extracranial [...] right common carotid artery (image 1). MRA [place]: There is no vessel occlusion, [...] 7:40 PM on 04/03/2018. Signed: Leela Ventura MDReport Verified Date/Time: 04/03/201819:42:20 Reading Location: [address] Transitional Reading Room CREATINE KINASE (CK), TOTAL AND [id number] 19:36:00 Test Item Value Reference Range Interpretation Comments CREATINE KINASE TOTAL (BEAKER) 103 U/L 29-200 (test code = 380) CREATINE KINASE-MB (BEAKER) (test 2.5 ng/mL 0.0-6.6 code = 750) CREATINE KINASE-MB INDEX (BEAKER) 2.4 % (test code = 395) CK-MB Reference Range:<6.7 Normal6.7-10.0 Borderline>10.0 AbnormalTROPONIN [id number] 19:36:00 Test Item Value Reference Range Interpretation [...] neurological disease, and persistent tachyarrhythmia.MR, BRAIN, WITHOUT [id number] 19:34:00FINAL REPORT Exam: MRI brain without contrast. [...] Verified Date/Time: 04/03/2018 19:34:38 Reading Locat ion: [facility] B1 C013T Transitional Reading Room Electronically signed by: LEELA VENTURA MD 04/03/2018 07:34 PMB-TYPE NATRIURETIC FACTOR (BNP)2018-04-03 19:33:00 Test Item Value Reference Range Interpretation Comments B-TYPE NATRIURETIC PEPTIDE (BEAKER) 90 pg/mL 0-100 (test code = 700) URINALYSIS W/ [id number] 18:43:00 Test Item Value Reference Range Interpretation [...] 520) SOURCE(BEAKER) (test code = Urine, [place] 0516) BASIC METABOLIC [id number] 18:32:00 Test Item Value Reference Range Interpretation [...] m DATA TO CALCULA TE ESTIMATED GFR. [id number] 18:28:00 Test Item Value Reference Range Interpretation Comments MAGNESIUM (BEAKER) (test code = 1.7 mg/dL 1.6-2.6 627) [id number] 18:02:00 Test Item Value Reference Range Interpretation [...] PERCENT (BEAKER) (test code = 2801) POCT-GLUCOSE [id number] 17:49:00 Test Item Value Reference Range Interpretation Comments POC-GLUCOSE METER 100 mg/dL 70-110 TESTED AT [facility] 6720 ([facility]) (test code = [place] 1538) [address] CT, BRAIN/STROKE [id number] 17:45:00Reason for exam:->stroke protocolIs the patient ?->NoWhat [...] Pretty Verified Date/Time: 04/03/2018 17:45:48 Reading Location: [address] Reading Room
[2022-02-14] MEDS ORDERED: KETOROLAC 30 MG/ML INJ ONE ×2 (03:40→04:22)
[2022-02-14] MEDS ORDERED: HYDROCODONE/APAP 5/325 MG TAB ONE (04:22)
--- NOTE | 2022-02-14 04:42 | EDPHYS ---
Physician Documentation [facility] Name: Lizbet Solares Age: 56 yrs Sex: Female : 1965 Arrival Date: 02/14/2022 Time: 01:43 Bed 15 Private MD: ED Physician Sandip Springer HPI: 02/14 03:30 This 56 yrs old Female presents to ER via Ambulatory with complaints of Leg Pain. mh7 03:30 The patient presents with pain that is chronic, with no known mechanism of injury. The mh7 symptoms are located in the low back. Onset: The symptoms/episode began/occurred 5 day(s) ago. The pain radiates to the left leg. Associated signs and symptoms: Pertinent negatives: abdominal pain, chest pain, constipation, dysuria, fever, headache, hematuria, incontinence, nausea, numbness, tingling, urinary retention, vomiting, weakness. The problem was sustained from unknown cause. Modifying factors: The patient symptoms are alleviated by nothing, the patient symptoms are aggravated by movement, standing, walking. Severity of symptoms: At their worst the symptoms were moderate, 5 day(s) ago, in the emergency department the symptoms are unchanged. The patient has experienced similar episodes in the past, chronically. The patient has been recently seen at the [facility] Emergency Department, last week. Historical: - Allergies: 02:22 Dilaudid; lp1 - Home Meds: 02:22 Synthroid Oral [Active]; Metoprolol Tartrate Oral [Active]; Omeprazole Oral [Active]; lp1 - PMHx: 02:22 Anxiety; Depression; Hypertension; lp1 - PSHx: 02:22 bilateral heels; decompression of vertebrae; partial thyroidectomy; lp1 - Immunization history:: Adult Immunizations up to date, Client reports receiving the 2nd dose of the Covid vaccine. - Social history:: Smoking status: Patient denies any tobacco usage or history of. ROS: 03:30 Constitutional: Negative for fever, chills, and weight loss, Eyes: Negative for injury, mh7 pain, redness, and discharge, ENT: Negative for injury, pain, and discharge, Neck: Negative for injury, pain, and swelling, Cardiovascular: Negative for chest pain, palpitations, and edema, Respiratory: Negative for shortness of breath, cough, wheezing, and pleuritic chest pain, Abdomen/GI: Negative for abdominal pain, nausea, vomiting, diarrhea, and constipation, : Negative for injury, bleeding, discharge, and swelling, Skin: Negative for injury, rash, and discoloration, Neuro: Negative for headache, weakness, numbness, tingling, and seizure, Psych: Negative for depression, anxiety, suicide ideation, homicidal ideation, and hallucinations, Allergy/Immunology: Negative for hives, rash, and allergies, Endocrine: Negative for neck swelling, polydipsia, polyuria, polyphagia, and marked weight changes, Hematologic/Lymphatic: Negative for swollen nodes, abnormal bleeding, and unusual bruising. Exam: 03:30 Constitutional: This is a well developed, well nourished patient who is awake, alert, mh7 and in no acute distress. Head/Face: Normocephalic, atraumatic. Eyes: Pupils equal round and reactive to light, extra-ocular motions intact. Lids and lashes normal. Conjunctiva and sclera are non-icteric and not injected. Cornea within normal limits. Periorbital areas with no swelling, redness, or edema. ENT: Nares patent. No nasal discharge, no septal abnormalities noted. Tympanic membranes are normal and external auditory canals are clear. Oropharynx with no redness, swelling, or masses, exudates, or evidence of obstruction, uvula midline. Mucous membranes moist. Neck: Trachea midline, no thyromegaly or masses palpated, and no cervical lymphadenopathy. Supple, full range of motion without nuchal rigidity, or vertebral point tenderness. No Meningismus. Chest/axilla: Normal chest wall appearance and motion. Nontender with no deformity. No lesions are appreciated. Cardiovascular: Regular rate and rhythm with a normal S1 and S2. No gallops, murmurs, or rubs. Normal PMI, no JVD. No pulse deficits. Respiratory: Lungs have equal breath sounds bilaterally, clear to auscultation and percussion. No rales, rhonchi or wheezes noted. No increased work of breathing, no retractions or nasal flaring. Abdomen/GI: Soft, non-tender, with normal bowel sounds. No distension or tympany. No guarding or rebound. No evidence of tenderness throughout. Skin: Warm, dry with normal turgor. Normal color with no rashes, no lesions, and no evidence of cellulitis. MS/ Extremity: Pulses equal, no cyanosis. Neurovascular intact. Full, normal range of motion. Neuro: Awake and alert, GCS 15, oriented to person, place, time, and situation. Cranial nerves II-XII grossly intact. Motor strength 5/5 in all extremities. Sensory grossly intact. Cerebellar exam normal. Normal gait. Psych: Awake, alert, with orientation to person, place and time. Behavior, mood, and affect are within normal limits. Vital Signs: 02:23 BP 115 / 77; Pulse 86; Resp 18; Temp 97.9(TE); Pulse Ox 97% on R/A; Weight 99.79 kg lp1 (R); Height 5 ft. 5 in. (165.10 cm); Pain 10/10; 02:23 Body Mass Index 36.61 (99.79 kg, 165.10 cm) lp1 MDM: 04:40 Differential diagnosis: arthritis, chronic back pain, Osteoarthritis. Data reviewed: [facility] vital signs, nurses notes, old medical records. Data interpreted: Pulse oximetry: on room air is 97 %. Interpretation: normal. Counseling: I had a detailed discussion with the patient and/or guardian regarding: the historical points, exam findings, and any diagnostic results supporting the discharge/admit diagnosis, the need for outpatient follow up, to return to the emergency department if symptoms worsen or persist or if there are any questions or concerns that arise at home. Response to treatment: the patient's symptoms have markedly improved after treatment. 04:41 Patient medically screened. [facility] Administered Medications: 03:40 Drug: Ketorolac 60 mg Route: IM; Site: right deltoid; lp1 04:58 Follow up: Response: Marked relief of symptoms; Pain is decreased ke1 04:26 Drug: HYDROcodone-acetaminophen 5 mg-325 mg 1 tabs Route: PO; ke1 04:58 Follow up: Response: Marked relief of symptoms; Pain is decreased ke1 Disposition Summary: 02/14/22 04:41 Discharge Ordered Location: Home [facility] Problem: chronic [facility] Symptoms: have improved [facility] Condition: Stable [facility] Diagnosis - Lumbago with sciatica, left side mh7 Followup: [facility] - With: Private Physician - When: 1 - 2 days - Reason: Worsening of condition, Recheck today's complaints, Continuance of care, Re-evaluation by your physician Discharge Instructions: - Discharge Summary Sheet mh7 - Chronic Back Pain mh7 - Sciatica, [id number] [facility] Forms: - Medication Reconciliation Form 7 - Thank You Letter 7 - Antibiotic Education 7 - Prescription Opioid Use [facility] Signatures: Scarlett Jefferson RN RN lp1 Sandip Springer MD MD 7 Pricilla Berg RN RN ke1 Corrections: (The following items were deleted from the chart) 02:23 02:22 Allergies: No Known Allergies; lp1 lp1 03:30 03:29 This 56 yrs old Female presents to ER via Ambulatory with complaints of Leg Pain. 7 7
--- NOTE | 2022-02-14 04:42 | ER ---
Nurse's Notes [facility] Name: Lizbet Solares Age: 56 yrs Sex: Female : 1965 Arrival Date: 02/14/2022 Time: 01:43 Bed 15 Private MD: Diagnosis: Lumbago with sciatica, left side Presentation: 02/14 02:20 Chief complaint: Patient states: Ongoing left leg pain s/p back surgery that resulted lp1 in damage to nerves; Reports she has an appt on 02/17/22 to discuss MRI results; patient reports pain to entire upper left leg and left knee, described as stabbing pain. Coronavirus screen: At this time, the client does not indicate any symptoms associated with coronavirus-19. Ebola Screen: No symptoms or risks identified at this time. Risk Assessment: Do you want to hurt yourself or someone else? Patient reports no desire to harm self or others. Onset of symptoms was February 14, 2022. 02:20 Method Of Arrival: Ambulatory lp1 02:20 Acuity: NAFISA 4 lp1 02:23 Initial Sepsis Screen: Does the patient meet any 2 criteria? No. Patient's initial lp1 sepsis screen is negative. Does the patient have a suspected source of infection? No. Patient's initial sepsis screen is negative. Triage Assessment: 02:30 General: Appears in no apparent distress. Behavior is calm, appropriate for age. Pain: ke1 Complains of pain in left knee Pain does not radiate. Pain currently is 8 out of 10 on a pain scale. at worst was 10 out of 10 on a pain scale. level that patient reports is acceptable is 4 out of 10 on a pain scale. Historical: - Allergies: 02:22 Dilaudid; lp1 - Home Meds: 02:22 Synthroid Oral [Active]; Metoprolol Tartrate Oral [Active]; Omeprazole Oral [Active]; lp1 - PMHx: 02:22 Anxiety; Depression; Hypertension; lp1 - PSHx: 02:22 bilateral heels; decompression of vertebrae; partial thyroidectomy; lp1 - Immunization history:: Adult Immunizations up to date, Client reports receiving the 2nd dose of the Covid vaccine. - Social history:: Smoking status: Patient denies any tobacco usage or history of. Screenin:26 Abuse screen: Denies threats or abuse. Denies injuries from another. Nutritional lp1 screening: No deficits noted. Tuberculosis screening: No symptoms or risk factors identified. 02:30 Fall Risk No fall in past 12 months (0 pts). Secondary diagnosis (15 points) impaired ke1 mobility, IV access (20 points). Ambulatory Aid- None/Bed Rest/Nurse Assist (0 pts). Gait- Normal/Bed Rest/Wheelchair (0 pts) Mental Status- Oriented to own ability (0 pts). Total Calles Fall Scale indicates Low Risk Score (25-44 pts). Assessment: 03:14 Reassessment: Patient appears in no apparent distress at this time. No changes from ke1 previously documented assessment. 04:57 Reassessment: Patient states feeling better. Patient states symptoms have improved. ke1 Vital Signs: 02:23 BP 115 / 77; Pulse 86; Resp 18; Temp 97.9(TE); Pulse Ox 97% on R/A; Weight 99.79 kg lp1 (R); Height 5 ft. 5 in. (165.10 cm); Pain 10/10; 02:23 Body Mass Index 36.61 (99.79 kg, 165.10 cm) lp1 ED Course: 01:43 Patient arrived in ED. ja2 02:19 Arm band placed on right wrist. lp1 02:22 Triage completed. lp1 02:29 Pricilla Berg, EVER is Primary Nurse. ke1 02:43 Sandip Springer MD is Attending Physician. 7 04:00 Bed in low position. Call light in reach. ke1 04:57 No provider procedures requiring assistance completed. Patient did not have IV access ke1 during this emergency room visit. Administered Medications: 03:40 Drug: Ketorolac 60 mg Route: IM; Site: right deltoid; lp1 04:58 Follow up: Response: Marked relief of symptoms; Pain is decreased ke1 04:26 Drug: HYDROcodone-acetaminophen 5 mg-325 mg 1 tabs Route: PO; ke1 04:58 Follow up: Response: Marked relief of symptoms; Pain is decreased ke1 Outcome: 04:41 Discharge ordered by . 7 04:57 Discharged to home ambulatory. ke1 04:57 Condition: good 04:57 Discharge instructions given to patient. 04:59 Patient left the ED. ke1 Signatures: Scarlett Jefferson RN RN lp1 Sandip Springer MD MD mh7 Diane Zhou Kouassi, RN RN ke1 Corrections: (The following items were deleted from the chart) 02: 02:22 Allergies: No Known Allergies; lp1 lp1 02: 02:23 Resp 18bpm; Temp 97.9F Temporal; Pain 07/20; lp1 lp1
[2022-02-14 05:18] VITALS: BP 115/77; TEMP 97.9; O2SAT 97
== END 2022-02-14 04:59 | disposition home or self-care (01) ==
LOC: ER 01:40
DX: M54.42 Lumbago with sciatica, left side (principal); I10 Essential (primary) hypertension; F41.8 Other specified anxiety disorders; Z88.8 Allergy status to other drugs, medicaments and biological substances
CPT/HCPCS: 96372; 99283

== ENCOUNTER 2022-03-23 15:39 | Emergency (ER) | payer MEDICARE ==
--- OUTSIDE RECORDS SUMMARY | 2022-03-23 15:44 | XMS REPORT | Continuity of Care Document ---
:1965 Author Organization [facility] t Address [address] [place] [address] Care Team Providers Name Role Phone [facility] Primary Care Physician Unavailable Linda GALINDO Attending Clinician Unavailable Eva PT, T Attending Clinician Unavailable Josie DONATO, L Attending Clinician Jesus DONATO Attending Clinician Rey MORTON Attending Clinician Unavailable ELENITA ANTONIO Attending Clinician Unavailable DEVI WOLFE Attending Clinician Unavailable Pamela Munoz Attending Clinician Doctor Unassigned, Name Attending Clinician Unavailable Only, Test Attending Clinician Unavailable Paz ALMAGUER Attending Clinician Unavailable VALERIE GARRETT Admitting Clinician Unavailable Payers Payer Name Policy Type Policy Number Effective Date Expiration Date S ource HIM BCBS BLUE [id number] 2019 ADVANTAGE HMO 00:00:00 BCBS ADV HMO [id number] 2019 EXCHANGE 00:00:00 BLUE ADVANTAGE [id number] HMO-MARKETPLACE - BCBS MARKETPLACE PLAN [id number] 2007 2022 HMO 00:00:00 00:00:00 AIXA [id number] 2016 00:00:00 WXS-GQA-BROXZO/KELLY [id number] 2006 CE PLUS 00:00:00 [facility] [id number] 2018 CHOICE HMO 00:00:00 [facility] Problems Condition Condition Condition Status Onset Resolution Last Treating Co mments Source Name Details Category Date Date Treatment Clinician Date Left hip Left hip Disease Active Unive rs pain pain 6-06 ity of 00:00: [place] [facility] S/P S/P Disease Active Univers laminectom laminectom 6-06 it y of y y 00:00: Medical Branch Abnormal Abnormal Disease Active Unive rs gait gait 6-06 ity of 00:00: [place] [facility] Left leg Left leg Disease Active Unive rs pain pain 5-13 ity of 00:00: [place] [facility] Sciatica Sciatica Disease Active Unive rs of right of right 4-06 ity of side side 00:00: [place] [facility] Chronic Chronic Disease Active Univers [...] nivers s s 1-19 ity of 00:00: [place] [facility] Mixed Mixed Disease Active Univers hyperlipid hyperlipid 1-19 it y of emia emia 00:00: Medical Branch Abnormal Abnormal Disease Active Unive rs LFTs LFTs 1-19 ity of 00:00: [place] 00 Medical Branch GERD GERD Disease Active Univers (gastroeso (gastroeso 1-17 it y of phageal phageal 00:00: [place] reflux reflux 00 Medical disease) disease) Branch Mitral Mitral Disease Active Univers valve valve 1-17 ity of prolapse prolapse 00:00: [place] 00 Medical [facility] Anxiety Anxiety Disease Active Univers 1-17 ity of 00:00: [place] [facility] Pernicious Pernicious Disease Active U nivers anemia anemia 1-17 ity of 00:00: [place] 00 Medical Branch Morbid Morbid Disease Active Univers [...] hypothyroi 00:00: g of this [place] note Medical might be Branch different from [...] Active Univers ALLERGIE Class ity of S [facility] NO KNOWN Allergy Active SLEH ALLERGIE S Social History Social Habit Start Date Stop Date Quantity Comments Source History SDOH University o f Alcohol Frequency [place] [facility] ed[facility] History SDIA University o f Alcohol Std [place] Medical Drinks Branch History SDIA University o f Alcohol Binge [place] Medic al [facility] Exposure to 2022-02-13 2022-02-23 Not sure University SARS-CoV-2 00:00:00 09:02:00 [facility] (event) Branch Alcohol intake 2022-02-20 2022-02-20 Ex-drinker University 00:00:00 00:00:00 (finding) [facility] Tobacco use and 2021-10-21 2021-10-21 Never used Universit y of exposure 00:00:00 00:00:00 [facility] Alcohol Comment 2021-10-21 2021-10-21 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 Clinician (SIG) Name Name ARIPiprazol Yes 5mg Take 5 mg U nivers e (ABILIFY) 5-16 by mouth ity of 5 mg tablet 09:01: daily. [address] ARIPiprazol Yes 5mg Take 5 mg U nivers e (ABILIFY) 5-16 by mouth ity of 5 mg tablet 09:01: daily. [address] Branch HYDROcodone 2021- Yes 2745 1{tbl} Take 1 U nivers -acetaminop 5-16 05-24 tablet by it y of hen 10-325 00:00: 04:59 mouth [place] mg tablet 00 :00 every 6 Medical (six) Branch hours as needed for Pain (scale 4-6) for up to 7 days. Indication s: chronic pain methylPREDN Yes [id number] Take by Univers ISolone 4-20 mouth ity of (MEDROL, 00:00: SEE-INSTRU Branden as GELACIO,) 4 mg 00 CTIONS. Medica l tablets follow Branch package directions gabapentin Yes [id number] 300mg Take 1 Univers 300 mg 4-20 capsule by ity of capsule 00:00: mouth (two) Medical times Branch daily as needed for Pain (scale 7-10). methylPREDN 0 Yes [id number] Take by Univers ISolone 4-20 mouth ity of (MEDROL, 00:00: SEE-INSTRU Branden as GELACIO,) 4 mg 00 CTIONS. Medica l tablets follow Branch package directions gabapentin 2021-0 Yes [id number] 300mg Take 1 Univers 300 mg 4-20 capsule by ity of capsule 00:00: mouth 2 (two) Medical times Branch daily as needed for Pain (scale 7-10). omeprazole 0 Yes [id number] 20mg Take 1 Univers 20 mg 1-11 capsule by ity of capsule 00:00: mouth 00 daily. Medical Branch liothyronin 0 Yes [id number] 5ug Take 1 Univers e 5 mcg 1-11 tablet by ity of tablet 00:00: mouth 2 [place] 00 (two) Medical times Branch daily. SYNTHROID Yes [id number] 75ug Take 1 U nivers 75 mcg 1-11 tablet by ity of tablet 00:00: mouth [place] 00 every Medical morning. Branch BRAND MEDICALLY NECESSARY metoprolol Yes [id number] 100mg Take 1 Univers succinate 1-11 tablet by ity o f XL 100 mg 00:00: mouth [place] 24 hr 00 daily. Medical tablet Branch felodipine Yes [id number] 5mg Take 1 U nivers 5 mg 24 hr 1-11 tablet by ity of tablet 00:00: mouth at [place] 00 bedtime. Medical Branch rosuvastati Yes [id number] 20mg Take 1 Univers n 20 mg 1-11 tablet by ity of tablet 00:00: mouth at [place] 00 bedtime. Medical Branch omeprazole Yes [id number] 20mg Take 1 Univers 20 mg 1-11 capsule by ity of capsule 00:00: mouth [place] 00 daily. Medical Branch liothyronin Yes [id number] 5ug Take 1 Univers e 5 mcg 1-11 tablet by ity of tablet 00:00: mouth 2 00 (two) Medical times Branch daily. SYNTHROID Yes [id number] 75ug Take 1 U nivers 75 mcg 1-11 tablet by ity of tablet 00:00: mouth [place] 00 every Medical morning. Branch BRAND MEDICALLY NECESSARY metoprolol Yes [id number] 100mg Take 1 Univers succinate 1-11 tablet by ity o f XL 100 mg 00:00: mouth [place] 24 hr 00 daily. Medical tablet Branch felodipine Yes [id number] 5mg Take 1 U nivers 5 mg 24 hr 1-11 tablet by ity of tablet 00:00: mouth at [place] 00 bedtime. Medical Branch rosuvastati Yes [id number] 20mg Take 1 Univers n 20 mg 1-11 tablet by ity of tablet 00:00: mouth at [place] 00 bedtime. Medical Branch buPROPion Yes Univers XL 300 mg 5-21 ity of 24 hr 00:00: [place] tablet 00 Medical Branch buPROPion Yes Univers XL 300 mg 5-21 ity of 24 hr 00:00: [place] tablet 00 Medical Branch escitalopra 2020-0 Yes 20mg Take 20 mg Univers m oxalate 3-27 by mouth ity of 20 mg 00:00: daily. [place] tablet 00 Medical Branch escitalopra 2020-0 Yes 20mg Take 20 mg Univers m oxalate 3-27 by mouth ity of 20 mg 00:00: daily. [place] tablet 00 Medical Branch Immunizations Ordered Filled Immunization Date Status Comments [facility] e Immunization Name Name SARS-COV-2 COVID-19 2021-10-21 Completed Unive rsity of MODERNA 0.25ML 00:00:00 [place] Medi shelia BOOSTER VACCINE Branch SARS-COV-2 COVID-19 2021-10-21 Completed Unive rsity of MODERNA 0.25ML 00:00:00 [place] Medi shelia BOOSTER VACCINE Branch Influenza Virus 2021-03-17 Completed Universit y of Vaccine Quad IM, 00:00:00 [facility] dical Preserv and ABX Branch Free 6 MO-64 YRS Influenza Virus 2021-03-17 Completed Universit y of Vaccine Quad IM, 00:00:00 [facility] dical Preserv and ABX Branch Free 6 MO-64 YRS SARS-COV-2 COVID-19 2021-01-15 Completed Unive rsity of MODERNA VACCINE [facility] SARS-COV-2 COVID-19 2021-01-15 Completed Unive rsity of MODERNA VACCINE 00:00:00 [facility] SARS-COV-2 COVID-19 2020-12-18 Completed Unive rsity of MODERNA VACCINE 00:00:00 [facility] SARS-COV-2 COVID-19 2020-12-18 Completed Unive rsity of MODERNA VACCINE 00:00:00 [facility] Vital Signs Vital Name Observation Time Observation Value Comments Source Systolic blood 2022-02-23 14:00:00 161 mm[Hg] Univer [facility]ity of [place] pressure [facility] [place] Diastolic blood 2022-02-23 14:00:00 113 mm[Hg] Unive rsity of [facility] Heart rate 2022-02-23 13:51:00 97 /min [facility] Body height 2022-02-23 13:51:[address] [facility] Body weight 2022-02-23 13:51:[address] [facility] BMI 2022-02-23 13:51:00 39.61 kg/m2 Universi ty [facility] Oxygen saturation 2022-02-23 13:51:00 97 /min Uni [facility] in Arterial blood Medical anch by Pulse oximetry HEIGHT 2022-02-20 19:22:00 165.1 cm WEIGHT 2022-02-20 19:22:00 99.791 kg Procedures This patient has no known procedures. Encounters Start End Encounter Admission Attending Care Care Encounter Source Date/Time Date/Time Type Type Clinicians Facility Department ID 2022-04-02 2022-04-02 Outpatient [facility] [id number] Univers 13:00:00 13:00:00 [id number] ity [facility] 2022-03-31 2022-03-31 Outpatient [facility] [id number] Univers 10:15:00 10:15:00 [id number] ity [facility] 2022-03-26 2022-03-26 Outpatient [facility] [id number] Univers 14:30:00 14:30:00 [id number] ity [facility] 2022-03-24 2022-03-24 Outpatient R [facility] [id number] Univers 14:30:00 14:30:00 [id number] ity [facility] 2022-03-16 2022-03-16 [facility] [id number] Univers 10:15:00 11:11:20 RADHA ity [facility] 2022-03-16 2022-03-16 Ancillary Paulina Velasquez [facility] 1.2.84 0.114 [id number] Univers 10:15:00 11:11:20 [id number]2.7[facility].686 Antonella DOVE [id number] Mi dical [address] 2022-03-16 2022-03-16 Outpatient R [facility] [id number] Univers 10:15:00 10:15:00 [id number] [facility] 2022-02-23 2022-02-23 Office Jesus [facility] [id number] Univers 09:00:00 09:30:00 Visit [facility] [id number] it leigh of [place] 4.2.7.2.686 Branden as EL?BLEA [id number] Mi clemente [address] MEDICAL OFFICE [facility] 2022-02-20 2022-02-21 Emergency ER PRAVEEN [facility] Emergency [id number] [facility] 19:32:00 01:26:00 BRIAN 2022-02-20 2022-02-20 Outpatient GARYStoney [facility] [id number] [facility] 14:47:50 14:47:50 SHERICE [place] [facility] of Medicin e 2022-02-17 2022-02-17 Outpatient SHRADDHAEDWARD [facility] [id number] [facility] 13:09:42 16:19:33 RANULFO [place] [facility] of Medicin e 2022-02-16 2022-02-16 Outpatient Kurtis GALINDO [facility] [id number] [facility] 09:30:00 09:30:00 RADHA carroll [facility] 2022-02-09 2022-02-09 Outpatient [facility]ADDHAEDWARD [facility] [id number] [facility] 08:27:50 12:25:31 RANULFO [place] [facility] of Medicin e 2020-10-01 2020-10-01 Emergency Zachary Mcnamara [facility] [id number] 15:38:00 17:19:00 Pamela Dale [id number] [place] 4.2.7.2.686 [place] [id number] 2020-10-01 2020-10-01 Orders Doctor PINKY [id number] 00:00:00 00:00:00 Only Unassigned, HUDSON 350.1.13.10 [facility] 4.2.7.2.686 [id number] 2020-04-23 2020-07-03 Laboratory Only, Web [facility] [id number] 09:22:46 08:51:45 Only Test Health [id number] Specialty 4.2.7.2.686 [facility] [id number] [place] [id number] 2020-02-08 2020-02-08 Outpatient [facility] [id number] [facility] 00:00:00 00:00:00 [id number] Results Test Description Test Time Test Comments Results Result [facility] e Comments US, THYROID 2020-02-08 Reason for FINAL REPORT PATIENT 14:13:00 Exam:->HX OF ID: [id number] PARTIAL Thyroid Ultrasound HYPROIDECTOY History: Partial thyroidectomy [...] MDReport Verified Date/Time: 02/08/2020 14:13:43 Reading Location: [facility] Diagnostic Imaging Reading Room - [place] [address] D CULTURE 2018-04-09 00:00:00 Test Item Value Reference Range Interpretation Comme nts CULTURE (BEAKER) (test code = 1095) No growth in 5 days BLOOD [id number] 00:00:00 Test Item Value Reference Range Interpretation Comments CULTURE (BEAKER) (test No growth in 5 days code = 1095) BASIC METABOLIC [id number] 11:06:00 Test Item Value Reference Range Interpretation [...] TO CALCULA TE ESTIMATED GFR. BASIC METABOLIC [id number] 07:36:00 Test Item Value Reference Range Interpretation [...] TO CALCULA TE ESTIMATED GFR. BASIC METABOLIC [id number] 19:50:00 Test Item Value Reference Range Interpretation [...] TO CALCULA TE ESTIMATED GFR. BASIC METABOLIC [id number] 08:59:00 Test Item Value Reference Range Interpretation [...] TO CALCULA TE ESTIMATED GFR. BASIC METABOLIC [id number] 01:18:00 Test Item Value Reference Range Interpretation [...] TO CALCULA TE ESTIMATED GFR. BASIC METABOLIC [id number] 16:32:00 Test Item Value Reference Range Interpretation [...] TO CALCULA TE ESTIMATED GFR. U/S, ABDOMINAL, [id number] 14:54:00Abdomen limited area? Add comment if clarification [...] mildly septated cysts in liver. Signed: Oma Petersort Verified Date/Time: 04/05/2018 14:54:01 Reading Location: [facility] P006J Ultrasound Reading Room HEPATIC FUNCTION [id number] 14:03:00 Test Item Value Reference Range Interpretation [...] = 21 U/L 6-55 347) BASIC METABOLIC [id number] 09:16:00 Test Item Value Reference Range Interpretation [...] ESTIMATED GFR. CBC W/PLT COUNT & AUTO [id number] 08:44:00 Test Item Value Reference Range Interpretation [...] (BEAKER) (test code = 2801) BASIC METABOLIC [id number] 01:06:00 Test Item Value Reference Range Interpretation [...] m DATA TO CALCULA TE ESTIMATED GFR. [id number] 18:02:00 Test Item Value Reference Range Interpretation Comments AMMONIA (BEAKER) (test code = 348) 35 mol/L 18-72 BASIC METABOLIC [id number] 17:31:00 Test Item Value Reference Range Interpretation [...] TO CALCULA TE ESTIMATED GFR. BASIC METABOLIC [id number] 09:29:00 Test Item Value Reference Range Interpretation [...] TO CALCULA TE ESTIMATED GFR. BLOOD GAS, [id number] 05:19:00 Test Item Value Reference Range Interpretation [...] C (test code = 1818) BASIC METABOLIC [id number] 03:52:00 Test Item Value Reference Range Interpretation [...] m DATA TO CALCULA TE ESTIMATED GFR. [id number] 03:48:00 Test Item Value Reference Range Interpretation Comments PHOSPHORUS (BEAKER) (test code = 3.6 mg/dL 2.3-4.7 604) [id number] 03:48:00 Test Item Value Reference Range Interpretation Comments MAGNESIUM (BEAKER) (test code = 2.1 mg/dL 1.6-2.6 627) LACTIC ACID, VENOUS, WHOLE [id number] 03:44:00 Test Item Value Reference Range Interpretation [...] WBC 0-0 (BEAKER) (test code = 413) [id number] 02:06:00 Test Item Value Reference Range Interpretation Comments CORTISOL, TOTAL (BEAKER) (test 17.8 ug/dL 3.7-19.4 code = 5332) TSH/FREE T4 IF [id number] 02:06:00 Test Item Value Reference Range Interpretation Comments THYROID STIMULATING HORMONE 1.09 uIU/mL 0.35-4.94 (BEAKER) (test code = 772) HIV-1 ANTIGEN WITH HIV-1/2 [id number] 00:06:00 Test Item Value Reference Range Interpretation Comments HIV-1 ANTIGEN WITH HIV 1\T\2 Nonreactive Nonreactive ANTIBODY (2) (BEAKER) (test code = 2586) BASIC METABOLIC [id number] 23:30:00 Test Item Value Reference Range Interpretation [...] ESTIMATED GFR. RAD, CHEST, 1 VIEW, NON [id number] 21:34:00Reason for exam:->ALTERED MENTAL STATUSReason for exam:->NEUROLOGIC [...] MDReport Verified Date/Time: 04/03/2018 21:34:48 Reading Location: [address] Reading Room OSMOLALITY, [id number] 21:10:00 Test Item Value Reference Range Interpretation Comments OSMOLALITY, SERUM (BEAKER) (test 236 mOsm/kg 275-295 L code = 615) RAPID DRUG SCREEN, [id number] 20:47:00 Test Item Value Reference Range Interpretation [...] situations. Chain of custody not maintained. Some xxcn-qwp-qhtohqm medications, as well as adulterants, may cause inaccurate results. Clinical correlation should be applied. A more comprehensive drug screen or confirmation of a detected drug may be performed upon request.[id number] 20:43:00 Test Item Value Reference Range Interpretation Comments PHOSPHORUS (BEAKER) (test code = 1.8 mg/dL 2.3-4.7 L 604) HEPATIC FUNCTION [id number] 20:43:00 Test Item Value Reference Range Interpretation [...] (test code = 22 U/L 6-55 347) [id number] 20:43:00 Test Item Value Reference Range Interpretation Comments LIPASE (BEAKER) (test code = 749) 21 U/L 8-78 CREATININE, RANDOM [id number] 20:40:00 Test Item Value Reference Range Interpretation Comments CREATININE URINE (BEAKER) (test 11.7 mg/dL code = 375) Reference Range: No NormalsSODIUM, RANDOM [id number] 20:40:00 Test Item Value Reference Range Interpretation Comments SODIUM URINE (BEAKER) (test code = 60 meq/L 243) Reference Range: No NormalsOSMOLALITY, [id number] 20:40:00 Test Item Value Reference Range Interpretation Comments OSMOLALITY URINE (BEAKER) (test 169 mOsm/kg 40-1400 code = 614) [id number] 20:37:00 Test Item Value Reference Range Interpretation Comments ETHANOL (BEAKER) (test code = 400) < mg/dL <=10 [id number] 20:35:00 Test Item Value Reference Range Interpretation Comments AMMONIA (BEAKER) (test code = 348) 33 mol/L 18-72 MR, MRA, BRAIN, WITHOUT [id number] 19:42:00FINAL REPORT MRA head and neck without contrast. CLINICAL HISTORY: Stroke. CO MPARISON: None. TECHNIQUE: Two- and three-dimensional yxoo-cr-gkxmyt MRA images of the intra- and extracranial [...] right common carotid artery (image 1). MRA [place] of [place]: There is no vessel occlusion, [...] 7:40 PM on 04/03/2018. Signed: Leela Ventura [facility] Verified Date/Time: 04/03/201819:42:20 Reading Location: [address] Reading Room MR, MRA, NECK, WITHOUT IV [id number] 19:42:00FINAL REPORT MRA head and neck without contrast. CLINICAL HISTORY: Stroke. COMPARISON: None. TECHNIQUE: Two- and three-dimensional wcob-kf-fbqpli MRA images of the intra- and extracranial [...] right common carotid artery (image 1). MRA [place]: There is no vessel occlusion, [...] Ventura Verified Date/Time: 04/03/201819:42:20 Reading Location: [address] Reading Room CREATINE KINASE (CK), TOTAL AND [id number] 19:36:00 Test Item Value Reference Range Interpretation Comments CREATINE KINASE TOTAL (BEAKER) 103 U/L 29-200 (test code = 380) CREATINE KINASE-MB (BEAKER) (test 2.5 ng/mL 0.0-6.6 code = 750) CREATINE KINASE-MB INDEX (BEAKER) 2.4 % (test code = 395) CK-MB Reference Range:<6.7 Normal6.7-10.0 Borderline>10.0 AbnormalTROPONIN [id number] 19:36:00 Test Item Value Reference Range Interpretation [...] neurological disease, and persistent tachyarrhythmia.MR, BRAIN, WITHOUT [id number] 19:34:00FINAL REPORT Exam: MRI brain without contrast. [...] Verified Date/Time: 04/03/2018 19:34:38 Reading Locat ion: [facility] B1 C013T Transitional Reading Room Electronically signed by: LEELA VENTURA MD on04/03/2018 07:34 PMB-TYPE NATRIURETIC FACTOR (BNP)2018-04-03 19:33:00 Test Item Value Reference Range Interpretation Comments B-TYPE NATRIURETIC PEPTIDE (BEAKER) 90 pg/mL 0-100 (test code = 700) URINALYSIS W/ [id number] 18:43:00 Test Item Value Reference Range Interpretation [...] 520) SOURCE(BEAKER) (test code = Urine, [place] 1723) BASIC METABOLIC [id number] 18:32:00 Test Item Value Reference Range Interpretation [...] m DATA TO CALCULA TE ESTIMATED GFR. [id number] 18:28:00 Test Item Value Reference Range Interpretation Comments MAGNESIUM (BEAKER) (test code = 1.7 mg/dL 1.6-2.6 627) [id number] 18:02:00 Test Item Value Reference Range Interpretation [...] (test code = 416) BASOPHILS ABSOLUTE COUNT (JESSY) 0.02 K/ L 0.01-0.08 (test code = 417) IMMATURE GRANULOCYTES-RELATIVE 0 % 0-1 PERCENT (JESSY) (test code = 2801) POCT-GLUCOSE [id number] 17:49:00 Test Item Value Reference Range Interpretation Comments POC-GLUCOSE METER 100 mg/dL 70-110 TESTED AT [facility] 6720 (JESSY) (test code = [place] 1538) [address] CT, BRAIN/STROKE [id number] 17:45:00Reason for exam:->stroke protocolIs the patient ?->NoWhat [...] MDRdawoodort Verified Date/Time: 04/03/2018 17:45:48 Reading Location: [address] Reading Room
[2022-03-23] MEDS ORDERED: MORPHINE 4 MG/ML SYR ONE (17:58)
[2022-03-23] MEDS ORDERED: KETOROLAC 30 MG/ML INJ ONE (17:59)
--- NOTE | 2022-03-23 18:37 | EDPHYS ---
Physician Documentation [facility] Name: Lizbet Solares Age: 56 yrs Sex: Female : 1965 Arrival Date: 03/23/2022 Time: 15:42 Bed Waiting Private MD: ED Physician Dudley Cruz HPI: 03/23 16:45 This 56 yrs old Female presents to ER via Wheelchair with complaints of Pain All Over. pm1 16:45 The patient presents with pain that is chronic, with no known mechanism of injury. The pm1 symptoms are located in the low back. The pain radiates to the left leg. The problem was sustained from a chronic condition. Modifying factors: The patient symptoms are alleviated by nothing, the patient symptoms are aggravated by movement. Associated signs and symptoms: Pertinent positives: numbness, tingling, chronic back pain and reports nerve damage from surgery in November. Positive for urinary frequency, Pertinent negatives: abdominal pain, chest pain, fever, weakness. Severity of symptoms: in the emergency department the symptoms are unchanged. The patient has experienced similar episodes in the past, chronically. The patient has not recently seen a physician. Patient is seeing Dr Vaughn for pain management and is taking oxycodone for her chronic back pain. Historical: - Allergies: 16:31 Dilaudid; vg1 - Home Meds: 16:31 Metoprolol Tartrate Oral [Active]; Omeprazole Oral [Active]; Synthroid Oral [Active]; vg1 - PMHx: 16:31 Anxiety; Depression; Hypertension; vg1 - PSHx: 16:31 bilateral heels; decompression of vertebrae; partial thyroidectomy; vg1 - Immunization history:: Client reports receiving the 2nd dose of the Covid vaccine. - Social history:: Smoking status: Patient denies any tobacco usage or history of. ROS: 16:45 Constitutional: Negative for fever, chills, and weight loss, Cardiovascular: Negative pm1 for chest pain, palpitations, and edema, Respiratory: Negative for shortness of breath, cough, wheezing, and pleuritic chest pain, Abdomen/GI: Negative for abdominal pain, nausea, vomiting, diarrhea, and constipation. 16:45 MS/Extremity: Negative for injury and deformity, Skin: Negative for injury, rash, and discoloration. 16:45 Back: Positive for of the low back area, pain. 16:45 : Positive for urinary frequency, Negative for burning with urination. 16:45 Neuro: Positive for numbness, tingling, of the left leg. 16:45 All other systems are negative. Exam: 16:45 Constitutional: This is a well developed, well nourished patient who is awake, alert, pm1 and in no acute distress. Head/Face: Normocephalic, atraumatic. 16:45 Skin: Warm, dry with normal turgor. Normal color with no rashes, no lesions, and no evidence of cellulitis. MS/ Extremity: Pulses equal, no cyanosis. Neurovascular intact. Full, normal range of motion. 16:45 Eyes: Exam is negative for acute changes, Periorbital structures: appear normal, Pupils: no acute changes, Extraocular movements: no acute changes, Conjunctiva: no acute changes. 16:45 Cardiovascular: Exam negative for acute changes, Rate: normal, Rhythm: regular, Pulses: no pulse deficits are appreciated. 16:45 Respiratory: Exam negative for acute changes, respiratory distress, shortness of breath. 16:45 Abdomen/GI: Inspection: abdomen appears normal, Palpation: abdomen is soft and non-tender. 16:45 Back: pain, of the low back area. 16:45 Neuro: Exam negative for acute changes, Orientation: is normal, Mentation: is normal, Motor: is normal, moves all fours, strength is 5/5 in the plantar and dorsiflexion of bilateral feet. Vital Signs: 16:29 BP 142 / 105; Pulse 95; Resp 18; Temp 98.0(TE); Pulse Ox 98% on R/A; Weight 99.79 kg; vg1 Height 5 ft. 5 in. (165.10 cm); Pain 10/10; 16:29 Body Mass Index 36.61 (99.79 kg, 165.10 cm) vg1 MDM: 17:52 Patient medically screened. pm1 18:34 ED course: Patient requesting to go home after getting her pain medications. pm1 18:34 Data reviewed: vital signs. Counseling: I had a detailed discussion with the patient pm1 and/or guardian regarding: the historical points, exam findings, and any diagnostic results supporting the discharge/admit diagnosis, the need for outpatient follow up, to return to the emergency department if symptoms worsen or persist or if there are any questions or concerns that arise at home. 03/23 18:40 Order name: Urine Dipstick-Ancillary; Complete Time: 18:44 EDND 03/23 16:36 Order name: Urine Dipstick-Ancillary (obtain specimen) pm1 Administered Medications: 16:45 Not Given (Physician Discretion): [place] (HYDROcodone-acetaminophen) 10 mg-325 mg 1 tabs pm1 PO once 18:00 Drug: morphine 4 mg Route: IM; Site: left deltoid; vg1 18:04 Drug: Ketorolac 60 mg Route: IM; Site: right deltoid; vg1 Disposition: 03/24 14:33 Co-signature as Attending Physician, Dudley Cruz MD. rn Disposition Summary: 03/23/22 18:36 Discharge Ordered Location: Home pm1 Problem: new pm1 Symptoms: have improved pm1 Condition: Stable pm1 Diagnosis - Lumbago with sciatica, left side pm1 Followup: pm1 - With: Emergency Department - When: As needed - Reason: Worsening of condition Followup: pm1 - With: Private Physician - When: 2 - 3 days - Reason: Recheck today's complaints, Continuance of care, Re-evaluation by your physician Discharge Instructions: - Discharge Summary Sheet pm1 - Sciatica pm1 Forms: - Medication Reconciliation Form pm1 - Thank You Letter pm1 - Antibiotic Education pm1 - Prescription Opioid Use pm1 Signatures: Dispatcher [employer] [facility] Dudley Cruz MD MD rn Marinas, Patrick, NP FIELD TRAINING MANAGER pm1 Soledad Marvin RN RN vg1
--- NOTE | 2022-03-23 18:37 | ER ---
Nurse's Notes [facility] Name: Lizbet Solares Age: 56 yrs Sex: Female : 1965 Arrival Date: 03/23/2022 Time: 15:42 Bed Waiting Private MD: Diagnosis: Lumbago with sciatica, left side Presentation: 03/23 16:29 Chief complaint: Patient states: Left leg pain all day, states has nerve damage; denies vg1 numbness or tingling to left leg; Also stated urinary incontinence and frequent urination. Coronavirus screen: Vaccine status: Patient reports receiving the 2nd dose of the covid vaccine. Client denies travel out of the [place] in the last 14 days. Ebola Screen: Patient denies exposure to infectious person. Patient denies travel to an Ebola-affected area in the 21 days before illness onset. Initial Sepsis Screen: Does the patient meet any 2 criteria? No. Patient's initial sepsis screen is negative. Does the patient have a suspected source of infection? No. Patient's initial sepsis screen is negative. Risk Assessment: Do you want to hurt yourself or someone else? Patient reports no desire to harm self or others. Onset of symptoms was March 23, 2022. 16:29 Method Of Arrival: Wheelchair vg1 16:29 Acuity: NAFISA 3 vg1 Triage Assessment: 16:31 General: Appears in no apparent distress. uncomfortable, Behavior is calm, cooperative. vg1 Pain: Complains of pain in left leg Pain currently is 10 out of 10 on a pain scale. Musculoskeletal: Denies numbness in, left leg. Historical: - Allergies: 16:31 Dilaudid; vg1 - Home Meds: 16:31 Metoprolol Tartrate Oral [Active]; Omeprazole Oral [Active]; Synthroid Oral [Active]; vg1 - PMHx: 16:31 Anxiety; Depression; Hypertension; vg1 - PSHx: 16:31 bilateral heels; decompression of vertebrae; partial thyroidectomy; vg1 - Immunization history:: Client reports receiving the 2nd dose of the Covid vaccine. - Social history:: Smoking status: Patient denies any tobacco usage or history of. Screenin:27 Abuse screen: Denies threats or abuse. Nutritional screening: No deficits noted. vg1 Tuberculosis screening: No symptoms or risk factors identified. Fall Risk No fall in past 12 months (0 pts). Vital Signs: 16:29 BP 142 / 105; Pulse 95; Resp 18; Temp 98.0(TE); Pulse Ox 98% on R/A; Weight 99.79 kg; vg1 Height 5 ft. 5 in. (165.10 cm); Pain 10/10; 16:29 Body Mass Index 36.61 (99.79 kg, 165.10 cm) vg1 ED Course: 15:42 Patient arrived in ED. mr 16:31 Triage completed. vg1 16:31 Arm band placed on. vg1 16:33 Miki Lynch NP is PHCP. pm1 16:33 Dudley Cruz MD is Attending Physician. pm1 19:27 Patient has correct armband on for positive identification. vg1 19:27 No provider procedures requiring assistance completed. Patient did not have IV access vg1 during this emergency room visit. Administered Medications: 16:45 Not Given (Physician Discretion): [place] (HYDROcodone-acetaminophen) 10 mg-325 mg 1 tabs pm1 PO once 18:00 Drug: morphine 4 mg Route: IM; Site: left deltoid; vg1 18:04 Drug: Ketorolac 60 mg Route: IM; Site: right deltoid; vg1 Medication: 19:28 VIS not applicable for this client. vg1 Outcome: 18:36 Discharge ordered by . pm1 19:27 Discharged to home with family. vg1 19:27 Condition: good 19:27 Discharge instructions given to patient, Instructed on discharge instructions, follow up and referral plans. Demonstrated understanding of instructions, follow-up care. 19:28 Patient left the ED. vg1 Signatures: Kathrine Allan mr Miki Lynch, TOOL STRAIGHTENER TOOL STRAIGHTENER pm1 Soledad Marvin, RN RN vg1
[2022-03-23 18:39] LABS: Urine Blood Negative (Negative); Urine Glucose Negative (Negative); Urine Protein Negative (Negative); Urine Specific Gravity <=1.005 (1.005-1.030); Urine pH 6.5 (5.0-7.0)
[2022-03-23 19:33] VITALS: BP 142/105; TEMP 98; O2SAT 98
== END 2022-03-23 19:28 | disposition home or self-care (01) ==
LOC: ER 15:39
DX: M54.42 Lumbago with sciatica, left side (principal); Z88.6 Allergy status to analgesic agent; I10 Essential (primary) hypertension; F41.9 Anxiety disorder, unspecified
CPT/HCPCS: 81003; 96372; 99283

== ENCOUNTER 2022-05-19 18:36 | Emergency (ER) | payer MEDICARE ==
--- NOTE | 2022-05-19 19:18 | ER ---
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 Coronavirus screen: At this time, the client does not indicate any symptoms associated with coronavirus-19. Ebola Screen: Patient negative for fever greater than or equal to 101.5 degrees Fahrenheit, and additional compatible Ebola Virus Disease symptoms Patient denies exposure to infectious person. Patient denies travel to an Ebola-affected area in the 21 days before illness onset. No symptoms or risks identified at this time. Initial Sepsis Screen: Does the patient meet any 2 criteria? No. Patient's initial sepsis screen is negative. Does the patient have a suspected source of infection? No. Patient's initial sepsis screen is negative. Risk Assessment: Do you want to hurt yourself or someone else? Patient reports no desire to harm self or others. Onset of symptoms was May 18, 2022. 18:53 Method Of Arrival: Wheelchair 18:53 Acuity: NAFISA 3 iw Historical: - Allergies: 18:56 Dilaudid; iw - Home Meds: 18:56 Metoprolol Tartrate Oral [Active]; Omeprazole Oral [Active]; Synthroid Oral [Active]; iw - PMHx: 18:56 Anxiety; Depression; Hypertension; Hypothyroidism; iw - PSHx: 18:56 bilateral heels; decompression of vertebrae; partial thyroidectomy; iw - Immunization history:: Client reports receiving the 2nd dose of the Covid vaccine. - Social history:: Smoking status: Patient denies any tobacco usage or history of. Smoking status: Patient/guardian denies using tobacco, the patient reports quitting approximately 25 years ago. - Family history:: not pertinent. - Hospitalizations: : No recent hospitalization is reported. Screenin:28 Abuse screen: Denies threats or abuse. Nutritional screening: No deficits noted. ll3 Tuberculosis screening: No symptoms or risk factors identified. Fall Risk None identified. Vital Signs: 18:57 BP 139 / 80; Pulse 65; Resp 16; Temp 97.9; Pulse Ox 96% on R/A; Weight 99.79 kg; Height iw 5 ft. 5 in. (165.10 cm); Pain 10/10; 18:57 Body Mass Index 36.61 (99.79 kg, 165.10 cm) iw ED Course: 18:40 Patient arrived in ED. mr 18:56 Triage completed. iw 18:57 Arm band placed on. iw 19:00 Dudley Cruz MD is Attending Physician. rn 19:28 Patient has correct armband on for positive identification. Bed in low position. Call ll3 light in reach. Side rails up X 1. Adult w/ patient. 19:28 No provider procedures requiring assistance completed. Patient did not have IV access ll3 during this emergency room visit. Administered Medications: 19:24 Drug: Demerol (meperidine) 50 mg Route: IM; Site: right deltoid; ll3 19:28 Follow up: Response: No adverse reaction ll3 19:24 Drug: Decadron (dexamethasone) 10 mg Route: IM; Site: left deltoid; ll3 19:28 Follow up: Response: No adverse reaction ll3 Medication: 19:31 VIS not applicable for this client. ll3 Outcome: 19:17 Discharge ordered by . rn 19:28 Discharged to home via wheelchair, with family. ll3 19:28 Condition: stable 19:28 Discharge instructions given to patient, family, Instructed on discharge instructions, follow up and referral plans. medication usage, Demonstrated understanding of instructions, follow-up care, medications, Prescriptions given X 1. 19:31 Patient left the ED. ll3 Signatures: AllanKathrine morales Irene, EVER CURTIS iw Dudley Cruz MD MD rn Loubet, Lynsea, RN RN ll3
--- NOTE | 2022-05-19 19:18 | EDPHYS ---
Physician Documentation [facility] Name: Lizbet Solares Age: 57 yrs Sex: Female : 1965 Arrival Date: 05/19/2022 Time: 18:40 Bed 11 Private MD: ED Physician Dudley Cruz HPI: 05/19 19:11 This 57 yrs old Female presents to ER via Wheelchair with complaints of Leg Pain, Hip rn Pain. 19:11 The patient presents with pain. The complaints affect the medial aspect of left thigh rn and left quadriceps. Onset: The symptoms/episode began/occurred 6 month(s) ago. Modifying factors: The symptoms are alleviated by nothing. the symptoms are aggravated by prescription pain meds. Associated signs and symptoms: Pertinent negatives calf tenderness, fever, rash, swelling, warmth, weakness. Severity of symptoms: At their worst the symptoms were moderate, in the emergency department the symptoms are unchanged. The patient has experienced similar episodes in the past. The patient has been recently seen by a physician:. Pt reports pain in left hip and upper leg for 6 months since back surgery, had MRI of spine 2 months ago, results here with her, shows 2 levels of herniated discs, with some nerve root impingement. Reports going to pain management, prescribed oxycodone, helps but pain not going away the last couple of days. No injury. No fever/trauma/fall/new symptoms. No bowel or bladder complaints. . Historical: - Allergies: 18:56 Dilaudid; iw - Home Meds: 18:56 Metoprolol Tartrate Oral [Active]; Omeprazole Oral [Active]; Synthroid Oral [Active]; iw - PMHx: 18:56 Anxiety; Depression; Hypertension; Hypothyroidism; iw - PSHx: 18:56 bilateral heels; decompression of vertebrae; partial thyroidectomy; iw - Immunization history:: Client reports receiving the 2nd dose of the Covid vaccine. - Social history:: Smoking status: Patient denies any tobacco usage or history of. Smoking status: Patient/guardian denies using tobacco, the patient reports quitting approximately 25 years ago. - Family history:: not pertinent. - Hospitalizations: : No recent hospitalization is reported. ROS: 19:11 Constitutional: Negative for fever, chills, and weight loss, Neck: Negative for injury, rn pain, and swelling, Cardiovascular: Negative for chest pain, palpitations, and edema, Respiratory: Negative for shortness of breath, cough, wheezing, and pleuritic chest pain, Abdomen/GI: Negative for abdominal pain, nausea, vomiting, diarrhea, and constipation, Back: Negative for injury and pain, MS/Extremity: + LLE pain Skin: Negative for injury, rash, and discoloration, Neuro: Negative for headache, weakness, numbness, tingling, and seizure. Exam: 19:11 Constitutional: This is a well developed, well nourished patient who is awake, alert, rn in wheelchair, tearful Cardiovascular: Regular rate and rhythm. No pulse deficits. Respiratory: No increased work of breathing, no retractions or nasal flaring. Skin: Warm, dry, no cyanosis or rash. MS/ Extremity: Pulses equal, no cyanosis. Neurovascular intact. Full, normal range of motion. Equal circumference. Neuro: Awake and alert, GCS 15. Motor strength 5/5 in all extremities. Sensory grossly intact. Cerebellar exam normal. Vital Signs: 18:57 BP 139 / 80; Pulse 65; Resp 16; Temp 97.9; Pulse Ox 96% on R/A; Weight 99.79 kg; Height iw 5 ft. 5 in. (165.10 cm); Pain 10/10; 18:57 Body Mass Index 36.61 (99.79 kg, 165.10 cm) iw MDM: 19:00 Patient medically screened. rn 19:11 Differential diagnosis: radiculopathy, herniated disc. Data reviewed: vital signs, rn nurses notes, old medical records, and as a result, I will discharge patient. Counseling: I had a detailed discussion with the patient and/or guardian regarding: the historical points, exam findings, and any diagnostic results supporting the discharge/admit diagnosis, the need for outpatient follow up, to return to the emergency department if symptoms worsen or persist or if there are any questions or concerns that arise at home. Special discussion: I discussed with the patient/guardian in detail that at this point there is no indication for admission to the hospital. It is understood, however, that if the symptoms persist or worsen the patient needs to return immediately for re-evaluation. Based on the history and exam findings, there is no indication for further emergent testing or inpatient evaluation. I discussed with the patient/guardian the need to see the back specialist for further evaluation of the symptoms. ED course: Pt states has appointment already 3 days from now. Already on oxycodone. Will dc home with steroids and return precautions.. Administered Medications: 19:24 Drug: Demerol (meperidine) 50 mg Route: IM; Site: right deltoid; ll3 19:28 Follow up: Response: No adverse reaction ll3 19:24 Drug: Decadron (dexamethasone) 10 mg Route: IM; Site: left deltoid; ll3 19:28 Follow up: Response: No adverse reaction ll3 Disposition Summary: 05/19/22 19:17 Discharge Ordered Location: Home rn Problem: an ongoing problem rn Symptoms: have improved rn Condition: Stable rn Diagnosis - Radiculopathy, lumbar region rn Followup: rn - With: Private Physician - When: As needed - Reason: Recheck today's complaints, Re-evaluation by your physician Discharge Instructions: - Discharge Summary Sheet rn - Lumbosacral Radiculopathy rn - Neuropathic Pain rn - Pinched Nerve rn - Radicular Pain rn Forms: - Medication Reconciliation Form rn - Thank You Letter rn - 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
[2022-05-19] MEDS ORDERED: dexAMETHasone 10 MG/ML VIAL ONE (19:23)
[2022-05-19] MEDS ORDERED: MEPERIDINE HCL 50 MG/ML ONE (19:23)
[2022-05-19 20:18] VITALS: BP 139/80; TEMP 97.9; O2SAT 96
== END 2022-05-19 19:31 | disposition home or self-care (01) ==
LOC: ER 18:36
DX: M54.16 Radiculopathy, lumbar region (principal); I10 Essential (primary) hypertension; Z88.8 Allergy status to other drugs, medicaments and biological substances
CPT/HCPCS: 96372; 99283; J1100; J2175

== ENCOUNTER 2022-05-24 21:55 | Emergency (ER) | payer MEDICARE ==
--- OUTSIDE RECORDS SUMMARY | 2022-05-24 22:00 | XMS REPORT | Continuity of Care Document ---
:[address] [facility] t Address [address] [place] [address] Rashid. [address] [place] [address] Care Team Providers Name Role Phone Faye Alonzo Primary Care Physician ROSA BELTRAN Attending Clinician Unavailable Rosa Yates Attending Clinician Faye lAonzo Attending Clinician SHERICE ANTONIO Attending Clinician Unavailable BRIAN MORTON Attending Clinician Unavailable RANULFO WOLFE Attending Clinician Unavailable Zachary Munoz Attending Clinician Doctor Unassigned, [place] Attending Clinician Unavailable Only, Web Test Attending Clinician Unavailable MANUELITO ALMAGUER Attending Clinician Unavailable ALENA GARRETT Admitting Clinician Unavailable Payers Payer Name Policy Type Policy Number Effective Date Expiration Date S leticia HIM BCBS BLUE [id number] 2019 ADVANTAGE HMO 00:00:00 BLUE ADVANTAGE [id number] HMO-MARKETPLACE - BCBS MARKETPLACE PLAN [id number] 2007 2022 HMO 00:00:00 00:00:00 AIXA [id number] 2016 00:00:00 KAREEM/KELLY [id number] 2006 CE PLUS 00:00:00 [facility] [id number] 2018 CHOICE HMO 00:00:00 [facility] PCP BCBS ADV HMO [id number] 2019 EXCHANGE 00:00:00 Problems Condition Condition Condition Status Onset Resolution Last Treating Co mments Source Name Details Category Date Date Treatment Clinician Date Bulging Bulging Disease Active Univers lumbar lumbar 8-08 ity of disc disc 00:00: [place] 00 [facility] Branch Encounter Encounter Disease Active Uni vers to discuss to discuss 808 it y of test test 00:00: [place] results results 00 Medical Branch Left hip Left hip Disease Active Unive rs pain pain 6-06 ity of 00:00: [place] 00 Medical Branch S/P S/P Disease Active Univers laminectom laminectom 6-06 it y of y y 00:00: [place] 00 Medical Branch Abnormal Abnormal Disease Active Unive rs gait gait 6-06 ity of 00:00: [place] 00 Medical Branch Left leg Left leg Disease Active Unive rs pain pain 5-13 ity of 00:00: [place] 00 Medical Branch Sciatica Sciatica Disease Active Unive [...] nivers s s 1-19 ity of 00:00: [place] 00 Medical Branch Mixed Mixed Disease Active Univers hyperlipid hyperlipid 1-19 it y of emia emia 00:00: [place] 00 Medical Branch Abnormal Abnormal Disease Active Unive [...] Disease Active Univers 1-17 ity of 00:00: [place] 00 Medical Branch Pernicious Pernicious Disease Active U nivers anemia anemia 1-17 ity of 00:00: [place] [facility] Morbid Morbid Disease Active Univers obesity obesity 1-17 [place] of with body with body [place] mass index mass index 00 Me dical (BMI) of (BMI) of Branch 40.0 or 40.0 or higher higher Major Major Disease Active Univers depressive depressive 6-27 it y of disorder disorder 00:00: [place] 00 Medical [facility] Alcohol Alcohol Disease Active Univers abuse abuse 2-06 ity of 00:00: Medical Branch Unspecifie Unspecifie Disease Active Overview : Univers d d 5-24 Formattin ity of hypothyroi hypothyroi 00:00: g of this [place] dism dism 00 note Medical might be [...] Active Univers ALLERGIE Class ity of S [facility] NO KNOWN Allergy Active [facility] ALLERGIE S Social History Social Habit Start Date Stop Date Quantity Comments Source History of Current smoker University of tobacco use [place] [facility] [place] [facility] o f Alcohol Frequency [place] [facility] ed[facility] Branch History [facility] o f Alcohol Std [place] [facility] Drinks Branch History [facility] University o f Alcohol Binge [place] [facility] Exposure to 2022-05-13 2022-05-23 Not sure University of SARS-CoV-2 00:00:00 11:29:00 [facility] (event) Branch Alcohol intake 2022-05-23 2022-05-23 Ex-drinker [facility] 00:00:00 00:00:00 (finding) [facility] Tobacco use and 2021-10-21 2021-10-21 Smokeless tobacco Un iversity of exposure 00:00:00 00:00:00 non-user [facility] Alcohol Comment 2021-10-21 2021-10-21 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 Clinician (SIG) Name Name dexamethaso 2021- No [id number] 10mg U nivers ne 05-23 ity of (DECADRON) 17:45: 16:38 [place] injection 00 :00 Medical 10 mg Branch dexamethaso 2021- No [id number] 10mg 10 mg, Univers ne 05-23 Intramuscu ity of (DECADRON) 17:45: 16:38 lar, ONCE, [place] injection 00 :00 1 dose, On Medi shelia 10 mg Sat Branch 05/23/22 at 1245, Routine ketorolac 2021- No [id number] 30mg Uni vers (TORADOL) 05-23 ity of injection 17:30: 16:40 [place] 30 mg 00 :00 [facility] Branch ketorolac 2021- No [id number] 30mg 30 mg, U nivers (TORADOL) 05-23 Intramuscu ity of injection 17:30: 16:40 [place], ONCE, [place] 30 mg 00 :00 1 dose, On Medical Sat Branch 05/23/22 at 1230, Routine ketorolac 2021- Yes [id number] 10mg Take 1 U nivers 10 mg 05-23 tablet by ity of tablet 00:00: 04:59 mouth [place] 00 :00 every 6 Medical (six) Branch hours for 5 days. LORazepam 1 Yes 3mg Take 3 mg U nivers mg tablet 8-10 by mouth. ity o f 17:12: [place] 44 [facility] Branch methylpheni 2021-0 Yes 54mg Take 54 mg Univers date HCl 54 8-10 by mouth. ity of mg 24 hr 17:12: [address] OLANZapine 2021-0 Yes 15mg Take 15 mg U nivers 15 mg 8-10 by mouth. ity of tablet 17:12: [address] SERTraline 0 Yes 50mg Take 50 mg U nivers 50 mg 8-10 by mouth. ity of tablet 17:12: [address] traZODone 2021-0 Yes 200mg Take 200 Uni vers 100 mg 8-10 mg by ity of tablet 17:12: mouth. [address] vortioxetin 0 Yes 10mg Take 10 mg Univers e 10 mg Tab 8-10 by mouth. ity of 17:12: [address] LORazepam 1 Yes 3mg Take 3 mg U nivers mg tablet 8-10 by mouth. ity o f 17:12: [address] methylpheni Yes 54mg Take 54 mg Univers date HCl 54 8-10 by mouth. ity of mg 24 hr 17:12: [address] OLANZapine 0 Yes 15mg Take 15 mg U nivers 15 mg 8-10 by mouth. ity of tablet 17:12: [address] SERTraline 0 Yes 50mg Take 50 mg U nivers 50 mg 8-10 by mouth. ity of tablet 17:12: [address] traZODone 0 Yes 200mg Take 200 Uni vers 100 mg 8-10 mg by ity of tablet 17:12: mouth. [address] vortioxetin 0 Yes 10mg Take 10 mg Univers e 10 mg Tab 8-10 by mouth. ity of 17:12: [address] alendronate 0 Yes 70mg Take 70 mg Univers 70 mg 8-10 by mouth. ity of tablet 17:12: [address] clonazePAM 0 Yes 1mg Take 1 mg Un brit 1 mg tablet 8-10 by mouth. ity of 17:12: [address] alendronate 2021-0 Yes 70mg Take 70 mg Univers 70 mg 8-10 by mouth. ity of tablet 17:12: [address] clonazePAM 2021-0 Yes 1mg Take 1 mg Un brit 1 mg tablet 8-10 by mouth. ity of 17:12: [address] Branch traMADoL 50 2021-0 Yes Univer s mg tablet 8-10 ity of 00:00: [place] [facility] traMADoL 50 2021-0 Yes Univer s mg tablet 8-10 ity of 00:00: [place] [facility] gabapentin 2021-0 Yes [id number] 600mg Take 1 Univers 600 mg 8-08 tablet by ity of tablet 00:00: mouth in [place] 00 the Medical morning Branch and 1 tablet at noon and 1 tablet in the evening. gabapentin 2021-0 Yes [id number] 600mg Take 1 Univers 600 mg 8-08 tablet by ity of tablet 00:00: mouth in [place] 00 the Medical morning Branch and 1 tablet at noon and 1 tablet in the evening. methocarbam Yes TAKE 1 Univ ers oL 500 mg 7-26 TABLET BY ity o f tablet 00:00: MOUTH [place] 00 TWICE Medical DAILY FOR Branch 27 DAYS oxyCODONE-a 2021-0 Yes TAKE 1 Univ ers cetaminophe 7-26 TABLET BY ity of n 10-325 mg 00:00: MOUTH [place] per tablet 00 THREE Medical TIMES Branch DAILY FOR 27 DAYS NEEDED methocarbam 2021-0 Yes TAKE 1 Univ ers oL 500 mg 7-26 TABLET BY ity o f tablet 00:00: MOUTH [place] 00 TWICE Medical DAILY FOR Branch 27 DAYS oxyCODONE-a 2021-0 Yes TAKE 1 Univ ers cetaminophe 7-26 TABLET BY ity of n 10-325 mg 00:00: MOUTH [place] per tablet 00 THREE Medical TIMES Branch DAILY FOR 27 DAYS NEEDED diclofenac 2021-0 Yes TAKE 1 Unive rs 50 mg EC 6-27 TABLET BY ity of tablet 00:00: MOUTH [place] 00 TWICE Medical DAILY FOR Branch 29 DAYS diclofenac 2021-0 Yes TAKE 1 Unive rs 50 mg EC 6-27 TABLET BY ity of tablet 00:00: MOUTH [place] 00 TWICE Medical DAILY FOR Branch 29 DAYS ARIPiprazol 0 Yes 5mg Take 5 mg U nivers e (ABILIFY) 5-16 by mouth ity of 5 mg tablet 09:01: daily. [address] Branch ARIPiprazol 2022-0 Yes 5mg Take 5 mg U nivers e (ABILIFY) 5-16 by mouth ity of 5 mg tablet 09:01: [facility]. [facility] acetaminoph 2021-0 Yes 1{tbl} Take 1 Un brit en-codeine 5-02 tablet by ity of 300-30 mg 00:00: mouth [place] tablet 00 every 6 Medical (six) Branch hours as needed. acetaminoph 2021-0 Yes 1{tbl} Take 1 Un brit en-codeine 5-02 tablet by ity of 300-30 mg 00:00: mouth [place] tablet 00 every 6 Medical (six) Branch hours as needed. methylPREDN 2021-0 Yes [id number] Take by Univers ISolone 4-20 mouth ity of (MEDROL, 00:00: SEE-INSTRU Branden as GELACIO,) 4 mg 00 CTIONS. Medica l tablets follow Branch package directions gabapentin 2021-0 Yes [id number] 300mg Take 1 Univers 300 mg 4-20 capsule by ity of capsule 00:00: mouth (two) Medical times Branch daily as needed for Pain (scale 7-10). methylPREDN 2021-0 Yes [id number] Take by Univers ISolone 4-20 mouth ity of (MEDROL, 00:00: SEE-INSTRU Branden as GELACIO,) 4 mg 00 CTIONS. Medica l tablets follow Branch package directions gabapentin 2021-0 Yes [id number] 300mg Take 1 Univers 300 mg 4-20 capsule by ity of capsule 00:00: mouth (two) Medical times Branch daily as needed for Pain (scale 7-10). omeprazole 2021-0 Yes [id number] 20mg Take 1 Univers 20 mg 1-11 capsule by ity of capsule 00:00: mouth 00 daily. Medical Branch liothyronin 2021-0 Yes [id number] 5ug Take 1 Univers e 5 mcg 1-11 tablet by ity of tablet 00:00: mouth 2 (two) Medical times Branch daily. SYNTHROID 2021-0 Yes [id number] 75ug Take 1 U nivers 75 mcg 1-11 tablet by ity of tablet 00:00: mouth 00 every Medical morning. Branch BRAND MEDICALLY NECESSARY metoprolol 2021-0 Yes [id number] 100mg Take 1 Univers succinate 1-11 tablet by ity o f XL 100 mg 00:00: mouth [place] 24 hr 00 daily. Medical tablet Branch felodipine Yes [id number] 5mg Take 1 U nivers 5 mg 24 hr 1-11 tablet by ity of tablet 00:00: mouth at [place] [address] bedtime. Medical Branch rosuvastati Yes [id number] 20mg Take 1 Univers n 20 mg 1-11 tablet by ity of tablet 00:00: mouth at [place] [address] bedtime. Medical Branch omeprazole Yes [id number] 20mg Take 1 Univers 20 mg 1-11 capsule by ity of capsule 00:00: mouth [place] 00 daily. Medical Branch liothyronin Yes [id number] 5ug Take 1 Univers e 5 mcg 1-11 tablet by ity of tablet 00:00: mouth 2 [place] (two) Medical times Branch daily. SYNTHROID Yes [id number] 75ug Take 1 U nivers 75 mcg 1-11 tablet by ity of tablet 00:00: mouth [place] 00 every Medical morning. Branch BRAND MEDICALLY NECESSARY metoprolol Yes [id number] 100mg Take 1 Univers succinate 1-11 tablet by ity o f XL 100 mg 00:00: mouth [place] 24 hr 00 daily. Medical tablet Branch felodipine Yes [id number] 5mg Take 1 U nivers 5 mg 24 hr 1-11 tablet by ity of tablet 00:00: mouth at [place] [address] bedtime. Medical Branch rosuvastati Yes [id number] 20mg Take 1 Univers n 20 mg 1-11 tablet by ity of tablet 00:00: mouth at [place] [address] bedtime. Medical Branch buPROPion Yes Univers XL 300 mg 5-21 ity of 24 hr 00:00: [place] tablet 00 Medical Branch buPROPion Yes Univers XL 300 mg 5-21 ity of 24 hr 00:00: [place] tablet 00 Medical Branch escitalopra Yes 20mg Take 20 mg Univers m oxalate 3-27 by mouth ity of 20 mg 00:00: daily. [place] tablet 00 Medical Branch escitalopra Yes 20mg Take 20 mg Univers m oxalate 3-27 by mouth ity of 20 mg 00:00: daily. [place] tablet 00 Medical Branch Immunizations Ordered Filled Immunization Date Status Comments [facility] e Immunization Name Name SARS-COV-2 COVID-19 2021-10-21 Completed Unive rsity of MODERNA 0.25ML 00:00:00 [place] Medi shelia BOOSTER VACCINE Branch SARS-COV-2 COVID-19 2021-10-21 Completed Unive rsity of MODERNA 0.25ML 00:00:00 [place] Medi shelia BOOSTER VACCINE Branch Influenza Virus 2021-03-17 Completed Universit y of Vaccine Quad IM, 00:00:00 [place] Me dical Preserv and ABX Branch Free 6 MO-64 YRS Influenza Virus 2021-03-17 Completed Universit y of Vaccine Quad IM, 00:00:00 [place] Me dical Preserv and ABX Branch Free 6 MO-64 YRS SARS-COV-2 COVID-19 2021-01-15 Completed Unive rsity of MODERNA VACCINE 00:00:00 [facility] ical Branch SARS-COV-2 COVID-19 2021-01-15 Completed Unive rsity of MODERNA VACCINE [facility]:00[facility]00 [facility] SARS-COV-2 COVID-19 2020-12-18 Completed Unive rsity of MODERNA VACCINE 00:00:00 [facility] ical Branch SARS-COV-2 COVID-19 2020-12-18 Completed Unive rsity of MODERNA VACCINE 00:00:00 [facility] Vital Signs Vital Name Observation Time Observation Value Comments Source Systolic blood 2022-05-23 16:28:00 137 mm[Hg] Univer sity of pressure [facility] Diastolic blood 2022-05-23 16:28:00 85 mm[Hg] Unive rsity of pressure [facility] Heart rate 2022-05-23 16:28:00 61 /min [facility] Body temperature 2022-05-23 16:28:00 37 Elvira [facility] Respiratory rate 2022-05-23 16:28:00 18 /min [facility] Body height 2022-05-23 16:28:00 165.1 cm [facility] Body weight 2022-05-23 16:28:00 106.142 [facility] BMI 2022-05-23 16:28:00 38.94 kg/m2 Universi ty [facility] Oxygen saturation in 2022-05-23 16:28:00 98 /min University of Arterial blood by [facility] Pulse oximetry Branch HEIGHT 2022-02-20 19:22:00 165.1 cm WEIGHT 2022-02-20 19:22:00 99.791 kg Procedures This patient has no known procedures. Encounters Start End Encounter Admission Attending Care Care Encounter Source Date/Time Date/Time Type Type Clinicians Facility Department ID 2022-05-23 2022-05-23 Outpatient R ARIS [facility] [id number] Univers 11:20:00 11:47:56 [facility] 2022-05-23 2022-05-23 [facility] [id number] Univers 11:20:00 11:47:56 Care [facility] [id number] it y of [place] 4.2.7.2.686 Branden as EL?BLEA [id number] Ct carriepaul [facility] [address] MEDICAL OFFICE [facility] 2022-05-23 2022-05-23 Outpatient R [facility] [id number] Univers 11:20:00 11:20:00 [id number] [facility] 2022-05-20 2022-05-20 Telephone Rinku [facility] [id number] Univers 00:00:00 00:00:00 [employer] [id number] it y of [place] 4.2.7.2.686 Branden as EL?BLEA [id number] Ct carriepaul [address] MEDICAL OFFICE BUILDING 2022-04-02 2022-04-02 Outpatient MARISELA, [facility] [id number] [facility] 08:38:32 12:20:33 SHERICE vega of Medicin e 2022-02-20 2022-02-21 Emergency ER MOR M[place]ON Emergency [id number] [facility] 19:32:00 01:26:00 BRIAN 2022-02-20 2022-02-20 Outpatient MARISELA [facility] [id number] [facility] 14:47:50 14:47:50 SHERICE vega of Medicin e 2022-02-17 2022-02-[address] [facility] [id number] [facility] 13:09:42 16:19:33 RANULFO [place] e of Medicin e 2022-02-09 2022-02-[address] [facility] [id number] [facility] 08:27:50 12:25:31 RANULFO [place] of Medicin e 2020-10-01 2020-10-01 Emergency Zachary Mcnamara [facility] [id number] 15:38:00 17:19:00 [place]isa [place] [id number] [place] 4.2.7.2.686 [place] [id number] 2020-10-01 2020-10-01 Orders Doctor PINKY [id number] 00:00:00 00:00:00 Only Unassigned, [place] 350.1.13.10 [place] [facility] 4.2.7.2.686 [id number] 2020-04-23 2020-07-03 Laboratory Only, Web [facility] [id number] 09:22:46 08:51:45 Only Test Health [id number] Specialty 4.2.7.2.686 [facility] [id number] [place] [id number] 2020-02-08 2020-02-08 Outpatient [facility] [id number] 2-2 [facility] 00:00:00 00:00:00 [id number] Results Test Description Test Time Test Comments Results Result [facility] e Comments MR, SPINE, 2022-02-20 Unlisted Reason LUMBAR, WITHOUT 22:22:00 for Exam - Click CONTRAST Yes and Enter Reason Below->No [facility] CENTERName: JOHANNY NGUYEN : 1965 Sex: F *FINAL REPORT EXAM: MR, SPINE, LUMBAR, WITHOUT CONTRAST INDICATION: Back pain or radiculopathy, prior surgery, new symptoms TECHNIQUE: Sagittal T1-, T2-, and T2-w fat-saturated, and axial T1- and T2-w images of the lumbar spine. COMPARISON: None. FINDINGS:Spine Numbering: For purposes of this dictation, it is assumed that there are 5 [id number]-fcoiibx, lumbar-type vertebrae, and the most caudal fully segmented lumbar vertebra is labeled L5. Alignment: Slight leftward convex curvature centered at L3. Vertebral Bodies: Normal in height. Status post dorsal decompression at L5-S1 via bilateral laminectomies. Marrow Signal: Patchy T1 and T2 hyperintensity of the marrow most notably in the sacrum suggestive of osteopenia. No inflammatory signal or suspicious lesion. Intervertebral Discs: Multilevel disc dessication with mild height loss at T1-T2 and L4-L5 Conus Medullaris: Terminates at a normal level, L1 Cauda Equina: Normal Paraspinal Soft Tissues: Mild fatty atrophy of the lower paraspinal musculature. Individual Levels: T12-L1: Normal L1-L2: Moderate concentric disc bulge with posterior annular fissure. No spinal canal or foraminal stenosis. L2-L3: Trace concentric disc bulge. No spinal canal stenosis. There is mild left foraminal narrowing. Right foramen is patent. L3-L4: There is mild bilateral facet arthropathy with ligamentum flavum thickening. No spinal canal or foraminal stenosis. L4-L5: Mild bilateral facet arthropathy and ligamentum flavum thickening. No spinal canal or foraminal stenosis. L5-S1: Postsurgical level. Mild bilateral facet arthropathy. No spinal canal or foraminal stenosis. IMPRESSION: Status post L5-S1 dorsal decompression and modest multilevel degenerative changes, as described. No significant spinal canal or foraminal stenosis. No acute abnormality. Disc bulge at L1-L2 with annular fissure. Signed: Brian Blackwood [facility] Verified Date/Time: 02/20/2022 22:22:11 , THYROID 2020-02-08 Reason for FINAL REPORT PATIENT 14:13:00 Exam:->HX OF ID: [id number] Thyroid PARTIAL Ultrasound History: HYPROIDECTOY Partial thyroidectomy Comparison: none Findings:The right thyroid [...] MDReport Verified Date/Time: 02/08/2020 14:13:43 Reading Location: [facility] Diagnostic Imaging Reading Room - [place] [address] D CULTURE 2018-04-09 00:00:00 Test Item Value Reference Range Interpretation Comme nts CULTURE (BEAKER) (test code = 1095) No growth in 5 days BLOOD [id number] 00:00:00 Test Item Value Reference Range Interpretation Comments CULTURE (BEAKER) (test No growth in 5 days code = 1095) BASIC METABOLIC [id number] 11:06:00 Test Item Value Reference Range Interpretation [...] TO CALCULA TE ESTIMATED GFR. BASIC METABOLIC [id number] 07:36:00 Test Item Value Reference Range Interpretation [...] TO CALCULA TE ESTIMATED GFR. BASIC METABOLIC [id number] 19:50:00 Test Item Value Reference Range Interpretation [...] TO CALCULA TE ESTIMATED GFR. BASIC METABOLIC [id number] 08:59:00 Test Item Value Reference Range Interpretation [...] TO CALCULA TE ESTIMATED GFR. BASIC METABOLIC [id number] 01:18:00 Test Item Value Reference Range Interpretation [...] TO CALCULA TE ESTIMATED GFR. BASIC METABOLIC [id number] 16:32:00 Test Item Value Reference Range Interpretation [...] TO CALCULA TE ESTIMATED GFR. U/S, ABDOMINAL, [id number] 14:54:00Abdomen limited area? Add comment if clarification [...] 1 x 1.8 cm, another is in theright lobe measuring 2.4 x 2 x 2.2 cm. Main portal vein diameter 0.8 cm. Biliary tree: Common duct 4mm. No intrahepatic biliary dilatation. Gallbladder: No shadowing calculus/calculi. No wall thickening. No pericholecystic fluid. Negative sonographic Odell's sign. Pancreas: Partially visualized, unremarkable. Ascites: None seen. Right kidney: 12.4 x 5.6 x 5 cm. Normal cortical echogenicity. No mass. No shadowing calculus. No hydronephrosis. IVC/Aorta: Segments partially seen. Unremarkable. Impressi on: Three mildly septated cysts in liver. Signed: Oma Peters Verified Date/Time: 04/05/2018 14:54:01 Reading Location: [facility] B1 P006J Ultrasound Reading Room HEPATIC FUNCTION [id number] 14:03:00 Test Item Value Reference Range Interpretation [...] = 21 U/L 6-55 347) BASIC METABOLIC [id number] 09:16:00 Test Item Value Reference Range Interpretation [...] ESTIMATED GFR. CBC W/PLT COUNT & AUTO [id number] 08:44:00 Test Item Value Reference Range Interpretation [...] (BEAKER) (test code = 2801) BASIC METABOLIC [id number] 01:06:00 Test Item Value Reference Range Interpretation [...] m DATA TO CALCULA TE ESTIMATED GFR. [id number] 18:02:00 Test Item Value Reference Range Interpretation Comments AMMONIA (BEAKER) (test code = 348) 35 mol/L 18-72 BASIC METABOLIC [id number] 17:31:00 Test Item Value Reference Range Interpretation [...] TO CALCULA TE ESTIMATED GFR. BASIC METABOLIC [id number] 09:29:00 Test Item Value Reference Range Interpretation [...] TO CALCULA TE ESTIMATED GFR. BLOOD GAS, [id number] 05:19:00 Test Item Value Reference Range Interpretation [...] C (test code = 1818) BASIC METABOLIC [id number] 03:52:00 Test Item Value Reference Range Interpretation [...] m DATA TO CALCULA TE ESTIMATED GFR. [id number] 03:48:00 Test Item Value Reference Range Interpretation Comments PHOSPHORUS (BEAKER) (test code = 3.6 mg/dL 2.3-4.7 604) [id number] 03:48:00 Test Item Value Reference Range Interpretation Comments MAGNESIUM (BEAKER) (test code = 2.1 mg/dL 1.6-2.6 627) LACTIC ACID, VENOUS, WHOLE [id number] 03:44:00 Test Item Value Reference Range Interpretation Comments LACTATE BLOOD VENOUS 1.0 mmol/L 0.5-2.2 Specime n slightly (2) (BEAKER) (test hemolyzed code = 2872) Effective 02/12/2016: Units/Reference Range ChangeNew: 0.5-2.2 mmol/L Previous: 5- 20 mg/dLCBC (HEMOGRAM ONLY)2018 03:19:00 Test Item Value [...] WBC 0-0 (BEAKER) (test code = 413) [id number] 02:06:00 Test Item Value Reference Range Interpretation Comments CORTISOL, TOTAL (BEAKER) (test 17.8 ug/dL 3.7-19.4 code = 2755) TSH/FREE T4 IF [id number] 02:06:00 Test Item Value Reference Range Interpretation Comments THYROID STIMULATING HORMONE 1.09 uIU/mL 0.35-4.94 (BEAKER) (test code = 772) HIV-1 ANTIGEN WITH HIV-1/2 [id number] 00:06:00 Test Item Value Reference Range Interpretation Comments HIV-1 ANTIGEN WITH HIV 1\T\2 Nonreactive Nonreactive ANTIBODY (2) (BEAKER) (test code = 2586) BASIC METABOLIC [id number] 23:30:00 Test Item Value Reference Range Interpretation [...] ESTIMATED GFR. RAD, CHEST, 1 VIEW, NON [id number] 21:34:00Reason for exam:->ALTERED MENTAL STATUSReason for exam:->NEUROLOGIC PROBLEMIs the patient pregn ant?->NoFINAL REPORT EXAMINATION: AP PORTABLE CHEST RADIOGRAPH CLINICAL INDICATION: Altered mental status IMPRESSION: No comparison studies are available. Thin curvilinear opacities are noted at the left lung base. The morphology and distribution favor subsegmental atelectasis or scarring. No evidence of a discrete pneumonia, pulmonary edema, pleural effusion or pneumothorax. Heart size is borderline enlarged for this projection. Mediastinal contours are sharp. No evidence of an acute osseous abnormality. Signed: Nolan Pretty [facility] Verified Date/Time: 04/03/2018 21:34:48 Reading Location: [address] Reading Room OSMOLALITY, [id number] 21:10:00 Test Item Value Reference Range Interpretation Comments OSMOLALITY, SERUM (BEAKER) (test 236 mOsm/kg 275-295 L code = 615) RAPID DRUG SCREEN, [id number] 20:47:00 Test Item Value Reference Range Interpretation [...] unconfirmed qualitative test result for the clinical managementof patients in emergency situations. Chain of custody not maintained. Some woon-llx-ehqjtty medications, as well as adulterants, may cause inaccurate results. Clinical correlation should be applied. A more comprehensive drug screen or confirmation of a detected drug may be performed upon request. [id number] 20:43:00 Test Item Value Reference Range Interpretation Comments PHOSPHORUS (BEAKER) (test code = 1.8 mg/dL 2.3-4.7 L 604) HEPATIC FUNCTION [id number] 20:43:00 Test Item Value Reference Range Interpretation [...] (test code = 22 U/L 6-55 347) [id number] 20:43:00 Test Item Value Reference Range Interpretation Comments LIPASE (BEAKER) (test code = 749) 21 U/L 8-78 CREATININE, RANDOM [id number] 20:40:00 Test Item Value Reference Range Interpretation Comments CREATININE URINE (BEAKER) (test 11.7 mg/dL code = 375) Reference Range: No NormalsSODIUM, RANDOM [id number] 20:40:00 Test Item Value Reference Range Interpretation Comments SODIUM URINE (BEAKER) (test code = 60 meq/L 243) Reference Range: No NormalsOSMOLALITY, [id number] 20:40:00 Test Item Value Reference Range Interpretation Comments OSMOLALITY URINE (BEAKER) (test 169 mOsm/kg 40-1400 code = 614) [id number] 20:37:00 Test Item Value Reference Range Interpretation Comments ETHANOL (BEAKER) (test code = 400) < mg/dL <=10 [id number] 20:35:00 Test Item Value Reference Range Interpretation Comments AMMONIA (JESSY) (test code = 348) 33 mol/L 18-72 MR, MRA, BRAIN, WITHOUT [id number] 19:42:00FINAL REPORT MRA head and neck without contrast. CLINICAL HISTORY: Stroke. ARVIN RISON: None. TECHNIQUE: Two- and three-dimensional [id number]-wn-[id number] MRA images of the intra- and extracranial carotid and vertebral arterial circulations were obtained, from which maximal intensity projection 3-D reconstructions were created. FINDINGS: MRA neck: There is no vessel occlusion or NASCET-quantifiable stenosis in the extracranial carotid or vertebral arterial circulations. Flow is antegradein both vertebral arteries. There is a 2 cm round T2 hyperintense structure/lesion anterior to the right common carotid artery (image 1). MRA [place]: There is no vessel occlusion, [...] Dr Prater [facility]03/2018. Signed: [facility] Verified Date/Time: 04/03/2018 19:42:20 Reading Location: [address] Reading Room MR, MRA, NECK, WITHOUT IV [id number] 19:42:00FINAL REPORT MRA head and neck without contrast. CLINICAL HISTORY: Stroke. COMPARISON: None. TECHNIQUE: Two- and three-dimensional fgfx-xl-ljggph MRA images of the intra- and extracranial carotid and vertebral arterial circulations were obtained, from which maximal intensity projection 3-D reconstructions were created. FINDINGS: MRA neck: There is no vessel occlusion or NASCET-quantifiable stenosis in the extracranial carotid or vertebral arterial circulations. Flow is antegradein both vertebral arteries. There is a 2 cm round T2 hyperintense structure/lesion anterior to the right common carotid artery (image 1). MRA [place]: There is no vessel occlusion, [...] 04/03/2018. Signed: Leela Ventura MDReport Verified Date/Time: 04/03/2018 19:42:20 Reading Location: [address] Transitional Reading Room CREATINE KINASE (CK), TOTAL AND MB 2018-04-03 19:36:00 Test Item Value Reference Range Interpretation Comments CREATINE KINASE TOTAL (BEAKER) 103 U/L 29-200 (test code = 380) CREATINE KINASE-MB (BEAKER) (test 2.5 ng/mL 0.0-6.6 code = 750) CREATINE KINASE-MB INDEX (BEAKER) 2.4 % (test code = 395) CK-MB Reference Range:<6.7 Normal6.7-10.0 Borderline>10.0 AbnormalTROPONIN [id number] 19:36:00 Test Item Value Reference Range Interpretation [...] neurological disease, and persistent tachyarrhythmia.MR, BRAIN, WITHOUT [id number] 19:34:00FINAL REPORT Exam: MRI brain without contrast. Comparison: No prior study for comparison Clinical indication: Stroke Technique: Multiplanar multi sequential MR imaging of the brainwas performed without the administration of intravenous contrast. Findings: There is no intracranialmass, mass effect, extra-axial collection, hydrocephalus or herniation. There is no restricted diffusion to suggest an acute infarct. There is no abnormality on susceptibility sequences to suggest hemorrhage or hemosiderin deposition. There are minimal FLAIR hyperintensities in the bilateral periventricular white matter without mass effect, nonspecific but likely represent white matter microvascular ischemic changes. The skull base flow-voids are seen in keeping with their patency. The mastoid air cells are clear. There is a small retention cyst or polyp in the left maxillary sinus. The orbits, sella and parasellar regions are unremarkable. The craniocervical junction is normal. Impression:Minimalwhite matter microvascular ischemic changes.No acute infarct, acute intracranial hemorrhage or mass effect. Signed: Leela Venturaeport Verified Date/Time: 04/03/2018 19:34:38 Reading Location: [address] Reading Room B-TYPE NATRIURETIC FACTOR (BNP)2018-04-03 19:33:00 Test Item Value Reference Range Interpretation Comments B-TYPE NATRIURETIC PEPTIDE (BEAKER) 90 pg/mL 0-100 (test code = 700) URINALYSIS W/ [id number] 18:43:00 Test Item Value Reference Range Interpretation [...] 520) SOURCE(BEAKER) (test code = Urine, Good[place] 5641) BASIC METABOLIC [id number] 18:32:00 Test Item Value Reference Range Interpretation [...] m DATA TO CALCULA TE ESTIMATED GFR. [id number] 18:28:00 Test Item Value Reference Range Interpretation Comments MAGNESIUM (BEAKER) (test code = 1.7 mg/dL 1.6-2.6 627) [id number] 18:02:00 Test Item Value Reference Range Interpretation Comments PROTIME (BEAKER) (test code = 12.9 seconds 11.7-14.7 759) INR (BEAKER) (test code = 370) 1.0 <=5.9 PARTIAL THROMBOPLASTIN TIME 32.0 seconds 22.5-36.0 (BEAKER) (test code = 760) RECOMMENDED COUMADIN/WARFARIN INR THERAPY RANGESSTANDARD DOSE: 2.0 - 3.0 Includes: PROPHYLAXIS for venous thrombosis, systemic embolization; TREATMENT for venous thrombosis and/or pulmonary embolus.HIGH RISK: Target INR is 2.5-3.5 for patients with mechanical heart valves.CBC W/PLT COUNT & AUTO [id number] 17:54:00 Test Item Value Reference Range Interpretation [...] PERCENT (BEAKER) (test code = 2801) POCT-GLUCOSE [id number] 17:49:00 Test Item Value Reference Range Interpretation Comments POC-GLUCOSE METER 100 mg/dL 70-[address] [facility] 6720 (JESSY) (test code = [place] 1538) [address] CT, BRAIN/STROKE [id number] 17:45:00Reason for exam:->stroke protocolIs the patient ?->NoWhat is the patient's sedation req uirement?->No SedationFINAL REPORT EXAMINATION NONCONTRAST HEAD CT SCAN CLINICAL HISTORY: Mental status changes with confusion and dysarthria. Cerebral ischemia. Stroke protocol COMPARISON CT: None EPISODE OF CARE: Initial TECHNIQUE: Axial tomographic images [...] cavities and mastoid air cells are well pneumatized. No definite evidence of an acute osseous abnormality. IMPRESSION: No specific evidence of an acute intracranial process. Early ischemia cannot be excluded. Brain MRI could be performed for further evaluationif clinically warranted. Results discussed with Dr. Almaguer at 1740 hours. Signed: Nolan Pretty [facility] Verified Date/Time: 04/03/2018 17:45:48 Reading Location: [address] Reading Room
--- NOTE | 2022-05-24 23:37 | ER ---
Nurse's Notes [facility] Name: Lizbet Solares Age: 57 yrs Sex: Female : 1965 Arrival Date: 05/24/2022 Time: 22:04 Bed 12 Private MD: Diagnosis: Low back pain;Pain in unspecified hip Presentation: 05/24 22:50 Chief complaint: Patient states: Pt reports chronic left hip pain, worsening. Pt has kb3 been seen by PCP, Urgent Care, and [facility] ER in the last [address] Whelan for pain management bu reports the oxycontin he prescribes does not help. Coronavirus screen: Vaccine status: Patient reports receiving the 2nd dose of the covid vaccine. Client denies travel out of the [place] in the last 14 days. At this time, the client does not indicate any symptoms associated with coronavirus-19. Ebola Screen: Patient negative for fever greater than or equal to 101.5 degrees Fahrenheit, and additional compatible Ebola Virus Disease symptoms Patient denies exposure to infectious person. Patient denies travel to an Ebola-affected area in the 21 days before illness onset. No symptoms or risks identified at this time. Initial Sepsis Screen: Does the patient meet any 2 criteria? No. Patient's initial sepsis screen is negative. Does the patient have a suspected source of infection? No. Patient's initial sepsis screen is negative. Risk Assessment: Do you want to hurt yourself or someone else? Patient reports no desire to harm self or others. Onset of symptoms was November 24, 2021. 22:50 Method Of Arrival: Wheelchair kb3 22:50 Acuity: NAFISA 4 kb3 Triage Assessment: 22:52 General: Appears distressed, uncomfortable, Behavior is calm, cooperative, crying. kb3 Pain: Complains of pain in left hip Pain does not radiate. Pain currently is 10 out of 10 on a pain scale. Quality of pain is described as sharp, shooting, Pain began chronic. Musculoskeletal: Reports pain in left hip. Historical: - Allergies: 22:52 Dilaudid; kb3 - Home Meds: 22:52 Metoprolol Tartrate Oral [Active]; Omeprazole Oral [Active]; Synthroid Oral [Active]; kb3 OxyContin 10 mg Oral TR12 2 tabs TID [Active]; Toradol 10 mg Oral tab 1 tab every 4 hours [Active]; - PMHx: 22:52 Anxiety; Depression; Hypertension; Hypothyroidism; Chronic back pain; kb3 - PSHx: 22:52 bilateral heels; decompression of vertebrae; partial thyroidectomy; kb3 - Immunization history:: Adult Immunizations up to date, Client reports receiving the 2nd dose of the Covid vaccine, Last tetanus immunization: unknown. - Social history:: Smoking status: Patient denies any tobacco usage or history of. Patient/guardian denies using alcohol, street drugs. Screenin:18 Abuse screen: Denies threats or abuse. Denies injuries from another. Nutritional kd3 screening: No deficits noted. Tuberculosis screening: No symptoms or risk factors identified. Fall Risk Gait- Weak (10 pts.). Vital Signs: 22:50 BP 131 / 74; Pulse 59; Resp 20; Temp 98.0; Pulse Ox 98% ; Weight 99.79 kg; Height 5 ft. kb3 5 in. (165.10 cm); Pain 10/10; 22:50 Body Mass Index 36.61 (99.79 kg, 165.10 cm) kb3 ED Course: 22:04 Patient arrived in ED. ja2 22:52 Triage completed. kb3 22:52 Arm band placed on right wrist. kb3 23:00 Linnette Damian, EVER is Primary Nurse. kd3 23:12 Jeniffer Bolanos FNP-C is PHCP. snw 23:12 Sandip Springer MD is Attending Physician. snw 23:18 Patient has correct armband on for positive identification. kd3 23:19 No provider procedures requiring assistance completed. kd3 23:55 Patient did not have IV access during this emergency room visit. kd3 Administered Medications: 23:42 Drug: Robaxin (methocarbamol) 750 mg Route: PO; kd3 23:55 Follow up: Response: No adverse reaction kd3 Medication: 23:19 VIS not applicable for this client. kd3 Outcome: 23:37 Discharge ordered by . snw 23:55 Discharged to home ambulatory. kd3 23:55 Condition: stable 23:55 Discharge instructions given to patient, Instructed on discharge instructions, follow up and referral plans. Demonstrated understanding of instructions, follow-up care. 23:55 Patient left the ED. kd3 Signatures: Jeniffer Bolanos, WINDOW DRAPER-C WINDOW DRAPER-Csnw Diane Zhou Kyli, RN RN kd3 Katya Plata, RN RN kb3
--- NOTE | 2022-05-24 23:37 | EDPHYS ---
Physician Documentation [facility] Name: Lizbet Solares Age: 57 yrs Sex: Female : 1965 Arrival Date: 05/24/2022 Time: 22:04 Bed 12 Private MD: BARRETT Physician Sandip Springer HPI: 05/24 23:22 This 57 yrs old Female presents to ER via Wheelchair with complaints of Hip Injury, Leg snw Pain, Low Back Pain. 23:22 The patient or guardian reports pain. snw 23:45 sustained from chronic pain, back surgery. The complaints affect the pelvis and left snw hip. Onset: The symptoms/episode began/occurred gradually, chronic. Associated signs and symptoms:. Severity of symptoms: At their worst the symptoms were moderate. The patient has experienced similar episodes in the past, chronically. to ERs and UC for the past three days. Pt sees Dr. Kendell Whelan for pain management.. Supposed to see Neurosurgeon at [facility] at the end of the month.. Historical: - Allergies: 22:52 Dilaudid; kb3 - Home Meds: 22:52 Metoprolol Tartrate Oral [Active]; Omeprazole Oral [Active]; Synthroid Oral [Active]; kb3 OxyContin 10 mg Oral TR12 2 tabs TID [Active]; Toradol 10 mg Oral tab 1 tab every 4 hours [Active]; - PMHx: 22:52 Anxiety; Depression; Hypertension; Hypothyroidism; Chronic back pain; kb3 - PSHx: 22:52 bilateral heels; decompression of vertebrae; partial thyroidectomy; kb3 - Immunization history:: Adult Immunizations up to date, Client reports receiving the 2nd dose of the Covid vaccine, Last tetanus immunization: unknown. - Social history:: Smoking status: Patient denies any tobacco usage or history of. Patient/guardian denies using alcohol, street drugs. ROS: 23:47 Constitutional: Negative for fever, chills, and weight loss, Eyes: Negative for injury, snw pain, redness, and discharge, ENT: Negative for injury, pain, and discharge, Neck: Negative for injury, pain, and swelling, Cardiovascular: Negative for chest pain, palpitations, and edema, Respiratory: Negative for shortness of breath, cough, wheezing, and pleuritic chest pain, Abdomen/GI: Negative for abdominal pain, nausea, vomiting, diarrhea, and constipation, Back: Negative for injury and pain, : Negative for injury, bleeding, discharge, and swelling, Skin: Negative for injury, rash, and discoloration, Neuro: Negative for headache, weakness, numbness, tingling, and seizure, Psych: Negative for depression, anxiety, suicide ideation, homicidal ideation, and hallucinations. 23:47 MS/extremity: Positive for decreased range of motion, pain, tenderness, of the pelvis and left hip. Exam: 23:48 Constitutional: This is a well developed, well nourished patient who is awake, alert, snw and in no acute distress. Head/Face: Normocephalic, atraumatic. Eyes: Pupils equal round and reactive to light, extra-ocular motions intact. Lids and lashes normal. Conjunctiva and sclera are non-icteric and not injected. Cornea within normal limits. Periorbital areas with no swelling, redness, or edema. ENT: Nares patent. No nasal discharge, no septal abnormalities noted. Tympanic membranes are normal and external auditory canals are clear. Oropharynx with no redness, swelling, or masses, exudates, or evidence of obstruction, uvula midline. Mucous membranes moist. Neck: Trachea midline, no thyromegaly or masses palpated, and no cervical lymphadenopathy. Supple, full range of motion without nuchal rigidity, or vertebral point tenderness. No Meningismus. Chest/axilla: Normal chest wall appearance and motion. Nontender with no deformity. No lesions are appreciated. Cardiovascular: Regular rate and rhythm with a normal S1 and S2. No gallops, murmurs, or rubs. Normal PMI, no JVD. No pulse deficits. Respiratory: Lungs have equal breath sounds bilaterally, clear to auscultation and percussion. No rales, rhonchi or wheezes noted. No increased work of breathing, no retractions or nasal flaring. Abdomen/GI: Soft, non-tender, with normal bowel sounds. No distension or tympany. No guarding or rebound. No evidence of tenderness throughout. Back: No spinal tenderness. No costovertebral tenderness. Full range of motion. Skin: Warm, dry with normal turgor. Normal color with no rashes, no lesions, and no evidence of cellulitis. MS/ Extremity: Pulses equal, no cyanosis. Neurovascular intact. Full, normal range of motion. Neuro: Awake and alert, GCS 15, oriented to person, place, time, and situation. Cranial nerves II-XII grossly intact. Motor strength 5/5 in all extremities. Sensory grossly intact. Cerebellar exam normal. Normal gait. Psych: Awake, alert, with orientation to person, place and time. Behavior, mood, and affect are within normal limits. Vital Signs: 22:50 BP 131 / 74; Pulse 59; Resp 20; Temp 98.0; Pulse Ox 98% ; Weight 99.79 kg; Height 5 ft. kb3 5 in. (165.10 cm); Pain 10/10; 22:50 Body Mass Index 36.61 (99.79 kg, 165.10 cm) kb3 MDM: 23:16 Patient medically screened. snw 23:21 Special discussion: ambulating with a cane slowly across the ED. snw 23:47 Data reviewed: vital signs, nurses notes. Counseling: I had a detailed discussion with snw the patient and/or guardian regarding: the historical points, exam findings, and any diagnostic results supporting the discharge/admit diagnosis, the need for outpatient follow up, to return to the emergency department if symptoms worsen or persist or if there are any questions or concerns that arise at home. 23:48 ED course: Encouraged pt to speak with her pain management MD. Will give Robaxin in ED. snw Pt notified that she should not continue going to EDs or [facility] for pain management as she will jeopardize her relationship with pain management. Administered Medications: 23:42 Drug: Robaxin (methocarbamol) 750 mg Route: PO; kd3 23:55 Follow up: Response: No adverse reaction kd3 Disposition: 05/25 06:54 Co-signature as Attending Physician, Sandip Springer MD. mh7 Disposition Summary: 05/24/22 23:37 Discharge Ordered Location: Home snw Condition: Stable snw Diagnosis - Low back pain snw - Pain in unspecified hip snw Followup: snw - With: Emergency Department - When: As needed - Reason: Worsening of condition Followup: snw - With: Private Physician - When: 1 - 2 days - Reason: Recheck today's complaints, Continuance of care, Re-evaluation by your physician Discharge Instructions: - Discharge Summary Sheet snw - Joint Pain snw - Chronic Back Pain snw - Musculoskeletal Pain snw - How to Use Cold Therapy snw - Rehydration, Adult snw - Heat Therapy snw Forms: - Medication Reconciliation Form snw - Thank You Letter snw - Antibiotic Education snw - Prescription Opioid Use snw Signatures: Jeniffer Bolanos FNP-C OPERATIONS AND INTELLIGENCE ASSISTANT-Csnw Sandip Springer MD MD mh7 Linnette Damian RN RN kd3 Katya Plata RN RN kb3
[2022-05-24] MEDS ORDERED: methocarbamoL 500 MG TAB ONE (23:48)
[2022-05-25 03:28] VITALS: BP 131/74; TEMP 98; O2SAT 98
== END 2022-05-24 23:55 | disposition home or self-care (01) ==
LOC: ER 21:55
DX: M54.50 Low back pain, unspecified (principal); M25.552 Pain in left hip; I10 Essential (primary) hypertension; E03.9 Hypothyroidism, unspecified; F41.9 Anxiety disorder, unspecified; F32.A Depression, unspecified; Z88.8 Allergy status to other drugs, medicaments and biological substances
CPT/HCPCS: 99283

== ENCOUNTER 2022-08-01 22:29 | Emergency (ER) | payer MEDICARE ==
--- OUTSIDE RECORDS SUMMARY | 2022-08-01 22:38 | XMS REPORT | Continuity of Care Document ---
:[address] [facility] t Address [address] [place] [address] Care Team Providers Name Role Phone Marcial Alonzo Primary Care Physician RHETT XIONG Attending Clinician Unavailable BARRY PAYNE Attending Clinician Unavailable BARRY PAYNE Attending Clinician Unavailable Barry Payne Attending Clinician RADHA GALINDO Attending Clinician Unavailable Marcial Alonzo Attending Clinician Lab, Ang - Db Attending Clinician Unavailable MARCIAL DOBBS Attending Clinician Unavailable CAYDEN MUIR Attending Clinician Unavailable FOG_A_Provider Attending Clinician Unavailable Davy Berry MD Attending Clinician Rhett Xiong MD Attending Clinician YAMINI BELTRAN Attending Clinician Unavailable Yamini Yates Attending Clinician Arnoldo Rosas Attending Clinician ARNOLDO BRICE Attending Clinician Unavailable Nicol Gonzáles MD Attending Clinician Eva PT, Paulina Hernández Attending Clinician Unavailable Radha Galindo MD Attending Clinician Pedro GEAR KEEPER, Nick Dunbar Attending Clinician Unavailable SHERICE ANTONIO Attending Clinician Unavailable Larisa ESCALERA, Kari Reyes Attending Clinician Unavailable Jesus DONATO, Sterling Attending Clinician STERLING BATRES Attending Clinician Unavailable BRIAN MORTON Attending Clinician Unavailable Brian Morton MD Attending Clinician [facility] Attending Clinician Unavailjoan Main RN, Ludwin Attending Clinician Unavailable Benjamin Núñez RN Attending Clinician Unavailable RANULFO WOLFE Attending Clinician Unavailable IDANIA GENTILE Attending Clinician Unavailable Idania Pulliam Attending Clinician FAUSTINO HOLT Attending Clinician Unavailable Faustino Anthony Attending Clinician Louis Manuel MD Attending Clinician Doctor Unassigned, [place] Attending Clinician Unavailable Parminder Irene MD Attending Clinician PARMINDER IRENE Attending Clinician Unavailable PARMINDER IRENE Attending Clinician Unavailable , [facility] Attending Clinician Unavailable John Manzo MD Attending Clinician JOHN MANZO Attending Clinician Unavailable LOUIS MANUEL Attending Clinician Unavailable [facility], [facility] Attending Clinician Unavailable KELLY CLARK Attending Clinician Unavailable Kelly Clark NP Attending Clinician Only, Ang Db Test Attending Clinician Unavailable NICOL GONZÁLES Attending Clinician Unavailable FRANCES ALNCASTER Attending Clinician Unavailable Zachary Munoz Attending Clinician Only, Web Test Attending Clinician Unavailable Unknown, Attending Attending Clinician Unavailable Julia Laws RN Attending Clinician Unavailable [facility] Attending Clinician Unavailable SHARON ACOSTA Attending Clinician Unavailable MANUELITO ROQUE Attending Clinician Unavailable RHETT XIONG Admitting Clinician Unavailable BARRY PAYNE Admitting Clinician Unavailable Barry Payne Fraga Admitting Clinician FOG_A_Provider Admitting Clinician Unavailable FAUSTINO HOLT Admitting Clinician Unavailable LOUIS MANUEL Admitting Clinician Unavailable KELLY CLARK Admitting Clinician Unavailable ALENA GARRETT Admitting Clinician Unavailable Payers Payer Name Policy Type Policy Number Effective Date Expiration Date S leticia BLUE ADVANTAGE [id number] 2021 HMO/PLUS 00:00:00 [facility] BC[facility] BLUE [id number] 2019 ADVANTAGE HMO 00:00:00 BLUE ADVANTAGE [id number] HMO-MARKETPLACE - BCBS MARKETPLACE PLAN [id number] 2007 2022 HMO 00:00:00 00:00:00 AIXA [id number] 2016 00:00:00 JKJ-FGS-TFOEYZ/KELLY [id number] 2006 CE PLUS 00:00:00 [facility] [id number] 2018 CHOICE HMO 00:00:00 [facility] BC[facility] ADV HMO [id number] 2019 EXCHANGE 00:00:00 Problems Condition Condition Condition Status Onset Resolution Last Treating Co mments Source Name Details Category Date Date Treatment Clinician Date Status Status Disease Active 2021-10 [facility] post left post left 0-13 Heal th hip hip 00:00: replacemen replacemen 00 t t 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 Primary Primary Disease Active [facility] osteoarthr osteoarthr 06-24 He alth itis of itis of 00:00: left hip left hip 00 Limp Limp Disease Active [facility] 9-14 Health 00:00: 00 Class 2 Class 2 Disease Active [facility] severe severe 06-24 Health obesity obesity 00:00: due to due to 00 excess excess calories calories with with serious serious comorbidit comorbidit y and body y and body mass index mass index (BMI) of (BMI) of 39.0 to 39.0 to 39.9 in 39.9 in adult adult 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 06-24 He alth of length of length 00:00: of femur, of femur, 00 left left UNK UNK Diagnosis Active 2022-07-02 Mem oria Active 06-24 07:16:00 l 06/24/2022 00:00: Delmar SANTOS 00 [facility] M87.052 M87.052 Diagnosis Active 2022-07-23 Memoria Active 06-24 09:47:00 l 06/24/2022 00:00: Delmar mason 00 [facility] Subchondra Subchondra Disease Active U nivers l l 06-12 ity of insuffic[place] [facility] [facility] fracture fracture Branch of condyle of condyle of left of left femur, femur, initial initial encounter encounter Pre-operat Pre-operat Disease Active U nivers jimmy jimmy 06-12 [place] of clearance [place] [facility] Osteoarthr Osteoarthr Disease Active Overview : Univers itis of itis of 8-17 Formattin ity o f left hip, left hip, 00:00: g of this [place] unspecifie unspecifie 00 note Me dical d d might be Branch osteoarthr osteoarthr different itis type itis type from the original. Added automatic ally from request for surgery [id number] Need for Need for Disease Active Unive rs vaccinatio vaccinatio 8-15 it y of n n 00:00: Medical Branch Cervical Cervical Disease Active Unive rs cancer cancer 8-15 ity of screening screening 00:[place] [facility] Breast Breast Disease Active [facility] cancer cancer 8-15 ity of screening screening 00:00: Antonella s by by 00 Medical mammogram mammogram Bran ch Essential Essential Disease Active Uni vers hypertensi hypertensi 8-15 it y of on on 00:00: [place] [id number] Medical Branch Bulging Bulging Disease Active Univers lumbar lumbar -08 ity of disc disc 00:00: [place] [facility] Encounter Encounter Disease Active Uni vers to discuss to discuss 8-08 it y of test test 00:00: [place] results results 00 Medical Branch Left hip Left hip Disease Active Unive rs pain pain 6-06 ity of 00:00: [place] [facility] S/P S/P Disease Active Univers laminectom laminectom 6-06 it y of y y 00:00: [place] 00 [facility] Abnormal Abnormal Disease Active Unive rs gait gait 6-06 ity of 00:00: [place] [facility] Left leg Left leg Disease Active Unive rs pain pain 5-13 ity of 00:00: [place] [facility] Sciatica Sciatica Disease Active Unive rs of right of right 4-06 ity of side side 00:00: [place] 00 Medical Branch Chronic Chronic Disease Active Univers midline midline 4-06 ity of low back low back 00:00: [place] pain pain 00 Medical without without Branch sciatica sciatica Abnormal Abnormal Disease Active Unive rs liver liver 1-27 ity of ultrasound ultrasound [place] [facility] Severe Severe Disease Active Univers obstructiv obstructiv 1-26 it y of e sleep e sleep 00:00: [place] apnea apnea 00 Medical Branch Prediabete Prediabete Disease Active U nivers s s 1-19 ity of 00:00: [place] 00 Medical [facility] Mixed Mixed Disease Active Univers hyperlipid hyperlipid 1-19 it y of emia emia 00:00: [place] [facility] Abnormal Abnormal Disease Active Unive [...] or higher higher 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 04-06 Zuleika kes disorder disorder 00:00: Medica l 00 Center Hyponatrem Hyponatrem Disease Active [facility] ia 04-03 [facility] syndrome syndrome 00:00: Medica l 00 Center Primary Primary Disease Active [facility] polydipsia polydipsia 04-03 Zuleika kes 00:00: Medical 00 Center Acute Acute Disease Active [facility] metabolic metabolic 04-03 Luke s encephalop encephalop 00:00: Me dical athy athy 00 Center Alcohol Alcohol Disease Active Methodi abuse abuse 11-16 st 00:00: Hosp[facility] 00 l PAIN PAIN Diagnosis Active 2019-06-28 Mem oria Active 10-11 13:24:00 l 10/11/2017 08:00: Delmar mason [facility] 00 [facility] No known No known Disease UT active active Health problems problems History of History Problem Resolve 2022-07-20 Memoria - GI Bleed of - GI d 06:43:36 l (context-d Bleed Delmar mason ependent (context-d category) ependent category) Resolved Problem 07/20/2022 [facility] Adult Adult Problem Active 2022-07-20 Stefan adalberto attention attention 06:43:36 l deficit deficit [place] hyperactiv hyperactiv ity ity disorder disorder (disorder) (disorder) Active Problem 07/20/2022 [facility] Human Human Problem Active 2022-07-20 Memor ia T-lymphotr T-lymphotr 06:43:36 l opic virus opic virus He rmann 2 2 infection infection (disorder) (disorder) Active Problem 07/20/2022 [facility] Hyperlipid Hyperlipi Problem Active 2022-07-20 Memoria emia demia 06:43:36 l (disorder) (disorder) He rmann Active Problem 07/20/2022 [facility] Hypertensi Hypertens Problem Active 2022-07-20 Memoria ve jimmy 06:43:36 l disorder, disorder, Herm oma systemic systemic arterial arterial (disorder) (disorder) Active Problem 07/20/2022 [facility] Hypothyroi Hypothyro Problem Active 2022-07-20 Memoria dism idism 06:43:36 l (disorder) (disorder) He rmann Active Problem 07/20/2022 [facility] Osteoporos Osteoporo Problem Active 2022-07-20 Memoria is sis 06:43:36 l (disorder) (disorder) He rmann Active Problem 07/20/2022 [facility] IDIOPATHIC IDIOPATHI Diagnosis Active 2022-07-23 Memoria ASEPTIC C ASEPTIC 09:47:00 l 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 Active [facility] Closed Closed Problem Resolve 2022-07-20 Mem oria fracture fracture d 06:43:36 l of upper of upper [place] n end of end of humerus humerus (disorder) (disorder) Resolved Problem 07/20/2022 [facility] Fracture Fracture Problem Resolve 2022-07-20 Memoria of of d 06:43:36 l calcaneus calcaneus Herm oma (disorder) (disorder) Resolved Problem 07/20/2022 Bilateral [facility] History of History Problem Resolve 2022-07-20 Memoria - upper of - upper d 06:43:36 l gastrointe gastrointe He ann stinal stinal tract tract hemorrhage hemorrhage (context-d (context-d ependent ependent category) category) Resolved Problem 07/20/2022 [facility] Heart Heart Problem Resolve 2022-07-20 Stefan adalberto murmur murmur d 06:43:36 l (finding) (finding) Herm oma Resolved Problem 07/20/2022 [facility] Allergies, Adverse Reactions, Alerts Allergy Allergy Status Severity Reaction(s) Onset Inactive Treating Comm ents Source Name Type Date Date Clinician NO KNOWN Drug Active Univers ALLERGIE Class ity of S [place] [facility] NO KNOWN Allergy Active [facility] ALLERGIE S Social History Social Habit Start Date Stop Date Quantity Comments Source History SDOH University o f Alcohol Frequency [place] [facility] History [facility] University o f Alcohol Std Drinks [place] [facility] History [facility] University o f Alcohol Binge [place] [facility] Exposure to 2022-07-20 2022-07-30 Not sure [facility] SARS-CoV-2 (event) 00:00:00 10:10:00 Social History 2022-07-02 2022-07-02 [facility] ermann 13:14:14 13:14:14 Cigarettes smoked 2022-06-11 2022-06-11 [facility] current (pack per 00:00:00 00:00:00 day) - Reported Cigarette 2022-06-11 2022-06-11 [facility] pack-years 00:00:00 00:00:00 Tobacco use and 2022-06-11 2022-06-11 Smokeless tobacco [facility] exposure 00:00:00 00:00:00 non-user Alcohol intake 2022-06-06 2022-06-06 Ex-drinker Yarsanism 00:00:00 00:00:00 (finding) [facility] Alcohol Comment 2021-10-21 2021-10-21 recovering Universit y of 00:00:00 00:00:00 alcoholic [facility] History of tobacco 1981-05-11 1988-05-11 Passive smoker [facility] use 00:00:00 00:00:00 [birth year] Yarsanism 00:00:00 00:00:00 [facility] Smoking Status Start Date Stop Date Source Ex-smoker 2022-06-11 00:00:00 2022-06-11 00:00:00 [facility] Medications Ordered Filled Start Stop Current Ordering Indication Dosage Frequency Signature Comments Components Source Medication Medication Date Date Medication? Clinician (SIG) Name Name Ronald 2021-10 No 1 tab, PO, Mem oria 10/325 oral 0-07 Q4H, PRN l tablet 12:42: for pain, Delmar mason 00 # 60 tab, 0 Refill(s), given to patient Abilify 2021-10 No Notes: Memoria 0-05 (Same as: l 14:00: Abilify) Lexapro 2021-10 No Notes: Memoria 0-05 (Same as: l 14:00: Lexapro) felodipine 2021-10 No 5 mg, 1 Stefan adalberto 5 mg oral 0-05 tab, l tablet, 14:00: Route: PO, Herm oma extended 00 Drug form: release ERTAB, Daily, Dosing Weight 101.818, kg, Start date: 07/15/22 9:00:00 CDT, Duration: 30 day, Stop date: 08/13/22 9:00:00 CDT Metoprolol 2021-10 No Notes: Memor ia Succinate 0-05 (Same as: l ER 100 mg 14:00: Toprol XL) He rmann oral 00 May split tablet, tab, but extended do not release crush. omeprazole 2021-10 No 20 mg, 1 Mem oria 0-05 cap, l 14:00: Route: PO, [place] 00 Drug form: DRC, Daily, Dosing Weight 101.818, kg, Start date: 07/15/22 9:00:00 CDT, Duration: 30 day, Stop date: 08/13/22 9:00:00 CDT Protonix 2021-10 No Notes: Memoria 0-05 Tablet l 14:00: should not [place] 00 be chewed or crushed. (Same as: Protonix) amLODIPine 2021-10 No Notes: Memor ia 0-05 (Same as: l 14:00: Norvasc) Ede 00 Synthroid 2021-10 No 75 Memoria 0-05 microgram, l 11:30: 1 tab, Ede 00 Route: PO, Drug form: TAB, Daily, Dosing Weight 101.818, kg, Start date: 07/15/22 6:30:00 CDT, Duration: 30 day, Stop date: 08/13/22 6:30:00 CDT, 0 rosuvastati 2021-10 No Notes: Stefan adalberto n 0-05 Same as l 02:00: Crestor [place] 00 vancomycin 2021-10 No 2000 mg: Me moria (SCIP) + 0-05 infuse l Sodium 01:00: over 2.5 Ede Chloride 00 hours For 0.9% IV 250 adult mL patients only: Round to nearest 250 mg per Medical Staff approval MEDICATION WASTE Product Size: 1000 mg Product Wasted: ___ mg Colace 100 2021-10 No Notes: Memor ia mg oral 0-04 (Same as: l capsule 22:00: Colace) Ede 00 (Do Not Crush) buPROPion 2021-10 No Notes: Memori a 24 hour 0-04 (Same as: l extended 22:00: Wellbutrin Her jimenez release 00 XL) "Do Not Crush" gabapentin 2021-10 No Notes: Memor ia 300 mg oral 0-04 (Same as: l capsule 22:00: Neurontin) liothyronin 2021-10 No Notes: Stefan adalberto e 0-04 (Same as: l 22:00: Cytomel) ceFAZolin 2021-10 No Notes: Memori a (SCIP) 0-04 Same as: l 21:00: Ancef ketOROLAC 2021-10 No 15 mg, 1 Stefan adalberto 0-04 mL, Route: l 21:00: IV, Drug form: INJ, Q8H, Dosing Weight 101.818, kg, Start date: 07/14/22 16:00:00 CDT, Duration: 2 day, Stop date: 07/16/22 8:00:00 CDT, 0 tranexamic 2021-10 No Notes: Memor ia acid + 0-04 (Same As: l Sodium 19:30: Cyklokapro Carole nn Chloride 00 n) 0.9% IV 100 mL Zofran 2021-10 No Notes: Memoria 0-04 (Same as: l 17:00: Zofran) MEDICATION WASTE Product Size: 4 mg Product Wasted: ___ mg Roxicodone 2021-10 No Notes: Memor ia 0-04 (Same as: l 16:46: Roxicodone ) Tylenol 2021-10 No Notes: Do Memor ia 0-04 not exceed l 16:46: 4 gm/day. (Same as: Tylenol) ANE 2021-10 No 1,000 mg, Memoria acetaminoph 0-04 Route: PO, l en 16:02: Drug form: 00 TAB, ONCE, Dosing Weight 101.818, kg, PRN Pain Score 1-3, Start date: 07/14/22 11:02:00 CDT ANES 2021-10 No 25 Memoria fentaNYL 0-04 microgram, l 16:02: Route: Ede 00 IVP, Q5Min, Dosing Weight 101.818, kg, PRN Pain Score 4-6, Priority: Routine, Start date: 07/14/22 11:02:00 CDT, Duration: 4 doses or times, Stop date: Limited # of times ANES 2021-10 No 0.5 mg, Memoria HYDROmorpho 0-04 Route: l ne 16:02: IVP, Ede 00 Q5Min, Dosing Weight 101.818, kg, PRN Pain Score 7-10, Start date: 07/14/22 11:02:00 CDT, Duration: 4 doses or times, Stop date: Limited # of times ANES 2021-10 No 0.2 mg, Memoria flumazenil 0-04 Route: l 16:02: IVP, PRN, Dosing Weight 101.818, kg, PRN Benzodiaze pine Reversal, Initial dose, Start date: 07/14/22 11:02:00 CDT, Duration: 30 day, Stop date: 08/13/22 11:01:00 CDT ANES 2021-10 No 0.4 mg, Memoria naloxone 0-04 Route: l 16:02: IVP, [place] 00 Q2MIN, Dosing Weight 101.818, kg, PRN Narcotic Reversal, Start date: 07/14/22 11:02:00 CDT, Duration: 8 doses or times, Stop date: Limited # of times ANES 2021-10 No 4 mg, Memoria ondansetron 0-04 Route: l 16:02: IVP, ONCE, Dosing Weight 101.818, kg, PRN Nausea & Vomiting, Start date: 07/14/22 11:02:00 CDT enoxaparin 2021-10 No Notes: Memor ia 0-04 (Same as: l 16:00: Lovenox) glycopyrrol 2021-10 No Route: IV, Memoria ate (ANES) 0-04 Drug form: l 15:52: INJ, ONCE, Stop date: 07/14/22 10:52:00 CDT neostigmine 2021-10 No Route: IV, Memoria (ANES) 0-04 Drug form: l 15:52: INJ, ONCE, Stop date: 07/14/22 10:52:00 CDT 1/2 NS 2021-10 No 1,000 mL, Memori a 1,000 mL 0-04 Rate: 75 l 15:37: ml/hr, Infuse over: 13.3 hr, Route: IV, Dosing Weight 101.818 kg, Total Volume: 1,000, Start date: 07/14/22 10:37:00 CDT, Duration: 30 day, Stop date: 08/13/22 10:36:00 CDT, BSA: 2.18 m2, 0 [place] 2021-10 No Notes: Do Memoria 10/325 oral 0-04 not exceed l tablet 15:37: 4gm/day of Carole 00 acetaminop hen. (Same as: [place] [address]) Percocet 2021-10 No 1 tab, Memoria 10/325 oral 0-04 Route: PO, l tablet 15:37: Dosing Ede 00 Weight 101.818, kg, Q3H, PRN Pain Score 7-10, Start date: 07/14/22 10:37:00 CDT, Duration: 30 day, Stop date: 08/13/22 10:36:00 CDT Zofran 2021-10 No Notes: Memoria 0-04 (Same as: l 15:37: Zofran) MEDICATION WASTE Product Size: 4 mg Product Wasted: ___ mg tranexamic 2021-10 No Notes: Memor ia acid + 0-04 (Same As: l Sodium 15:37: Cyklokapro Carole nn Chloride 00 n) 0.9% IV 100 mL [place] 5/325 2021-10 No Notes: Stefan adalberto oral tablet 0-04 (Same as: l 15:37: [place] Ede 00 325/5) Do not exceed 4gm/day of acetaminop hen. Benadryl 2021-10 No Notes: Memoria 0-04 (Same as: l 15:37: Benadryl) ePHEDrine 2021-10 No Route: IV, Me moria (ANES) 0-04 Drug form: l 14:57: INJ, ONCE, Ede 00 Stop date: 07/14/22 9:57:00 CDT hydromorpho 2021-10 No Route: IV, Memoria ne (ANES) 0-04 Drug form: l 14:17: INJ, ONCE, Stop date: 07/14/22 9:17:00 CDT ketAMINE 2021-10 No Route: IV, Mem oria (ANES) 0-04 Drug form: l 14:12: INJ, ONCE, Stop date: 07/14/22 9:12:00 CDT tranexamic 2021-10 No Route: IV, M emoria acid (ANES) 0-04 Drug form: l 14:07: INJ, ONCE, Stop date: 07/14/22 9:07:00 CDT dexamethaso 2021-10 No Route: IV, Memoria ne (ANES) 0-04 Drug form: l 13:52: INJ, ONCE, Stop date: 07/14/22 8:52:00 CDT ondansetron 2021-10 No Route: IV, Memoria (ANES) 0-04 Drug form: l 13:46: INJ, ONCE, Stop date: 07/14/22 8:46:00 CDT ceFAZolin 2021-10 No Route: IV, Me moria (ANES) 0-04 Drug form: l 13:46: INJ, ONCE, Stop date: 07/14/22 8:46:00 CDT fentaNYL 2021-10 No Route: IV, Mem oria (ANES) 0-04 Drug form: l 13:31: INJ, ONCE, Stop date: 07/14/22 8:31:00 CDT lidocaine 2021-10 No Route: IV, Me moria (ANES) 0-04 Drug form: l 13:31: INJ, ONCE, Stop date: 07/14/22 8:31:00 CDT propofol 2021-10 No Route: IV, Mem oria (ANES) 0-04 Drug form: l 13:31: INJ, ONCE, Stop date: 07/14/22 8:31:00 CDT rocuronium 2021-10 No Route: IV, M emoria (ANES) 0-04 Drug form: l 13:31: INJ, ONCE, Stop date: 07/14/22 8:31:00 CDT midazolam 2021-10 No Route: IV, Me moria (ANES) 0-04 Drug form: l 13:26: SOLN, [place] 00 ONCE, Stop date: 07/14/22 8:26:00 CDT vancomycin 2021-10 No Route: IV, M mili (ANES) 1000 0-04 Drug form: l mg 13:14: INJ, Start date: 07/14/22 8:14:00 CDT, Stop date: 07/14/22 9:14:00 CDT Lactated 2021-10 No Route: IV, Mem oria Ringers 0-04 Total l Injection 12:45: Volume: Carole nn IV (ANES) 00 1,000, 1000 mL Start date: 07/14/22 7:45:00 CDT, Stop date: 07/14/22 8:45:00 CDT tranexamic 2021-10 No Notes: Memor ia acid + 0-04 (Same As: l Sodium 12:00: Cyklokapro Carole nn Chloride 00 n) 0.9% IV 100 mL celecoxib 2021-10 No 90 Memoria 0-04 mL/min), l 12:00: Start date: 07/14/22 7:00:00 CDT, Duration: 30 day, Stop date: 08/13/22 6:59:00 CDT, 0 gabapentin 2021-10 No 300 mg, Stefan adalberto 0-04 Route: PO, l 12:00: Drug form: CAP, ONCALL, Dosing Weight 101.818, kg, Start date: 07/14/22 7:00:00 CDT, Duration: 30 day, Stop date: 08/13/22 6:59:00 CDT, 0 ANAIS 2021-10 No Notes: Memoria Pericapsula 0-04 NOT FOR IV l r INJ 12:00: use Ropivacain e 5 mg/mL (49.25 mL) Epinephrin e 1 mg/mL (0.5 mL) Clonidine 0.1 mg/mL (0.8 mL) Ketorolac 30 mg/mL (1 mL) Normal Saline 48.45 mL OxyCONTIN 2021-10 No 10 mg, Memori a 0-04 Route: PO, l 12:00: Drug form: ERTAB, ONCALL, Dosing Weight 101.818, kg, Start date: 07/14/22 7:00:00 CDT, Duration: 30 day, Stop date: 08/13/22 6:59:00 CDT, 0 Tylenol 2021-10 No 1,000 mg, Memor ia 0-04 Route: PO, l 12:00: Drug form: MALCOLM HEALY, Dosing Weight 101.818, kg, Start date: 07/14/22 7:00:00 CDT, Duration: 30 day, Stop date: 08/13/22 6:59:00 CDT, 0 ceFAZolin + 2021-10 No Notes: Stefan adalberto sterile 0-04 (Same As: l water 20 mL 12:00: Ancef Kefzol) MEDICATION WASTE Product Size: 1000 mg Product Wasted: ___ mg vancomycin 2021-10 No 2000 mg: Me moria + Sodium 0-04 infuse l Chloride 12:00: over 2.5 Carole nn 0.9% IV 250 00 hours For mL adult patients only: Round to nearest 250 mg per Medical Staff approval MEDICATION WASTE Product Size: 1000 mg Product Wasted: ___ mg Lactated 2021-10 No 1,000 mL, Stefan adalberto Ringers 0-04 Rate: 75 l Injection 11:29: ml/hr, [place]mar n IV 1000 mL 00 Infuse over: 13.3 hr, Route: IV, Dosing Weight 101.818 kg, Total Volume: 1,000, Start date: 07/14/22 6:29:00 CDT, Duration: 30 day, Stop date: 08/13/22 6:28:00 CDT, BSA: 2.18 m2 Lovenox 2021-10 Yes 0 Memoria 0-04 Refill(s) l 11:18: Zofran 2021-10 Yes 0 Memoria 0-04 Refill(s) l 11:18: ANAIS 2021-10 No Notes: Memoria Pericapsula 0-03 NOT FOR IV l r INJ 16:47: use Ropivacain e 5 mg/mL (49.25 mL) Epinephrin e 1 mg/mL (0.5 mL) Clonidine 0.1 mg/mL (0.8 mL) Ketorolac 30 mg/mL (1 mL) Normal Saline 48.45 mL oxyCODONE-a 2021-10 Yes [id number] 1{tbl} Take 1 UT cetaminophe 0-03 9108 tablet by [facility] n 00:00: mouth (Percocet) 00 every 4 10-325 MG (four) tablet hours if needed (pain) for up to 60 doses. oxyCODONE-a 2021-10 Yes [id number] 1{tbl} Take 1 UT cetaminophe 0-03 9108 tablet by [facility] n 00:00: mouth (Percocet) 00 every 4 10-325 MG (four) tablet hours if needed (pain) for up to 60 doses. oxyCODONE-a Yes [id number] 1{tbl} Take 1 UT cetaminophe 9-27 9108 tablet by [facility] n 00:00: mouth (Percocet) 00 every 4 10-325 MG (four) tablet hours if needed (pain) for up to 60 doses. naloxone 2022- Yes [id number] 4mg Administer [place] (Narcan) 4 07-07 9108 1 spray (4 He alth mg/0.1 mL 00:00: 04:59 mg total) nasal spray 00 :00 into affected nostril(s) if needed for opioid reversal. May repeat every 2-3 minutes if needed, alternatin g nostrils, until medical assistance becomes available. naloxone 2022- Yes [id number] 4mg Administer [place] (Narcan) 4 07-07 9108 1 spray (4 He alth mg/0.1 mL 00:00: 04:59 mg total) nasal spray 00 :00 into affected nostril(s) if needed for opioid reversal. May repeat every 2-3 minutes if needed, alternatin g nostrils, until medical assistance becomes available. naloxone 2022- Yes [id number] 4mg Administer [place] (Narcan) 4 07-07 9108 1 spray (4 He alth mg/0.1 mL 00:00: 04:59 mg total) nasal spray 00 :00 into affected nostril(s) if needed for opioid reversal. May repeat every 2-3 minutes if needed, alternatin g nostrils, until medical assistance becomes available. Enoxaparin 2021- Yes [id number] 40mg QD Inject 0.4 UT Sodium 07-07 9108 mL (40 mg Health (Lovenox) 00:00: 04:59 total) as 40 MG/0.4ML 00 :00 directed 1 solution (one) time prefilled each day syringe for 9 days. ondansetron 2021- Yes [id number] 4mg Take 1 UT ODT (Zofran 07-07 9108 tablet (4 He alth ODT) 4 MG 00:00: 04:59 mg total) disintegrat 00 :00 by mouth ing tablet every 8 (eight) hours if needed for nausea or vomiting for up to 7 days. Lexapro Yes 30 mg, PO, Stefan adalberto - Daily, 0 l 13:25: Refill(s) Ede 00 Abilify 5 Yes 5 mg = 1 Stefan daalberto mg oral -22 tab, PO, l tablet 12:51: Daily, # [place] 00 30 tab, 0 Refill(s) oxyCODONE No 15 mg = 1 Mem oria 15 mg oral -22 tab, PO, l tablet, 12:51: PRN, PRN [place] immediate 00 Pain, 0 release Refill(s) methocarbam Yes 1,000 mg = Memoria ol 500 mg 07-02 2 tab, PO, l oral tablet 12:51: BID, 0 Herm oma 00 Refill(s) omeprazole Yes 20 mg = 1 Me moria 20 mg oral -22 cap, PO, l delayed 12:50: Daily, 0 [place] release 00 Refill(s) capsule buPROPion Yes 450 mg = 1 Me moria 450 mg/24 9-22 tab, PO, l hours (XL) 12:50: Q24H, 0 Herm oma oral 00 Refill(s) tablet, extended release rosuvastati Yes 20 mg = 1 M emoria n 20 mg 9-22 tab, PO, l oral tablet 12:50: Bedtime, # [place] 00 30 tab, 0 Refill(s) felodipine Yes 5 mg = 1 Mem [facility] 5 mg oral 9-22 tab, PO, l tablet, 12:50: Daily, # [place] extended 00 30 tab, 0 release Refill(s) diclofenac No 50 mg = 1 Me moria sodium 50 9-22 tab, PO, l mg oral 12:49: BID, # 60 Carole nn enteric 00 tab, 0 coated, Refill(s) delayed-rel ease tablet metoprolol Yes 100 mg = 1 M emoria 100 mg oral 9-22 tab, PO, l tablet, 12:49: Daily, # [place] extended 00 30 tab, 0 release Refill(s) gabapentin Yes 300 mg = 1 M emoria 300 mg oral 9-22 cap, PO, l capsule 12:48: TID, # 90 Carole nn 00 cap, 0 Refill(s) liothyronin Yes 5 Memori a e 5 mcg 9-22 microgram l oral tablet 12:46: = 1 tab, He [place] 00 PO, BID, 0 Refill(s) Synthroid Yes 75 Memoria 75 mcg 9-22 microgram l (0.075 mg) 12:45: = 1 tab, Her jimenez oral tablet 00 PO, Daily, # 30 tab, 1 Refill(s) ARIPiprazol Yes 5mg Take 5 mg U nivers e (ABILIFY) 02 by mouth ity of 5 mg tablet 16:00: daily. [address] OLANZapine Yes 15mg Take 15 mg U nivers 15 mg 02 by mouth. ity of tablet 16:00: [address] SERTraline Yes 50mg Take 50 mg U nivers 50 mg 902 by mouth. ity of tablet 16:00: [address] traZODone Yes 200mg Take 200 Uni vers 100 mg 9-02 mg by ity of tablet 16:00: mouth. [address] ARIPiprazol Yes 5mg Take 5 mg U nivers e (ABILIFY) 902 by mouth ity of 5 mg tablet 16:00: daily. [place] [address] OLANZapine 2-0 Yes 15mg Take 15 mg U nivers 15 mg 06-12 by mouth. ity of tablet 16:00: [address] SERTraline 2-0 Yes 50mg Take 50 mg U nivers 50 mg 06-12 by mouth. ity of tablet 16:00: [address] traZODone 2-0 Yes 200mg Take 200 Uni vers 100 mg 02 mg by ity of tablet 16:00: mouth. [address] Vortioxetin 2022-0 Yes 10mg QD Take 10 mg UT e HBr 9-01 by mouth 1 Health (Trintellix 09:38: (one) time ) 10 MG 00 each day. tablet tablet Vortioxetin 2022-0 Yes 10mg QD Take 10 mg UT e HBr 9-01 by mouth 1 Health (Trintellix 09:38: (one) time ) 10 MG 00 each day. tablet tablet Vortioxetin 2022-0 Yes 10mg QD Take 10 mg UT e HBr 9-01 by mouth 1 Health (Trintellix 09:38: (one) time ) 10 MG 00 each day. tablet tablet Vortioxetin 2022-0 Yes 10mg QD Take 10 mg UT e HBr 9-01 by mouth 1 Health (Trintellix 09:38: (one) time ) 10 MG 00 each day. tablet tablet Vortioxetin 2022-0 Yes 10mg QD Take 10 mg UT e HBr 9-01 by mouth 1 Health (Trintellix 09:38: (one) time ) 10 MG 00 each day. tablet tablet ARIPiprazol 2022-0 Yes 5mg QD Take 5 mg U T e (Abilify) 9 by mouth 1 He alth 5 MG tablet 09:37: (one) time 59 each day. gabapentin 2022-0 Yes 600mg Q.[id number] Take 600 UT (Neurontin) 9- [id number] mg by H ealth 600 MG 09:37: 3D mouth in tablet 59 the morning and 600 mg at noon and 600 mg in the evening. levothyroxi 2022-0 Yes 88ug QD Take 88 UT ne 9-01 mcg by Health (Synthroid, 09:37: mouth 1 Levoxyl) 88 59 (one) time MCG tablet each day. ARIPiprazol 2022-0 Yes 5mg QD Take 5 mg U T e (Abilify) 9- by mouth 1 He alth 5 MG tablet 09:37: (one) time 59 each day. gabapentin 2022-0 Yes 600mg Q.[id number] Take 600 UT (Neurontin) 9-01 [id number] mg by H ealth 600 MG 09:37: 3D mouth in tablet 59 the morning and 600 mg at noon and 600 mg in the evening. levothyroxi 2022-0 Yes 88ug QD Take 88 UT ne 9-01 mcg by Health (Synthroid, 09:37: mouth 1 Levoxyl) 88 59 (one) time MCG tablet each day. ARIPiprazol 2022-0 Yes 5mg QD Take 5 mg U T e (Abilify) 9- by mouth 1 He alth 5 MG tablet 09:37: (one) time 59 each day. gabapentin 2022-0 Yes 600mg Q.[id number] Take 600 UT (Neurontin) 9- [id number] mg by H ealth 600 MG 09:37: 3D mouth in tablet 59 the morning and 600 mg at noon and 600 mg in the evening. levothyroxi 2022-0 Yes 88ug QD Take 88 UT ne 9-01 mcg by Health (Synthroid, 09:37: mouth 1 Levoxyl) 88 59 (one) time MCG tablet each day. ARIPiprazol 2022-0 Yes 5mg QD Take 5 mg U T e (Abilify) - by mouth 1 He alth 5 MG tablet 09:37: (one) time 59 each day. gabapentin 2022-0 Yes 600mg Q.[id number] Take 600 UT (Neurontin) 9-01 [id number] mg by H ealth 600 MG 09:37: 3D mouth in tablet 59 the morning and 600 mg at noon and 600 mg in the evening. levothyroxi 2022-0 Yes 88ug QD Take 88 UT ne 9-01 mcg by Health (Synthroid, 09:37: mouth 1 Levoxyl) 88 59 (one) time MCG tablet each day. ARIPiprazol 2022-0 Yes 5mg QD Take 5 mg U T e (Abilify) 06-11 by mouth 1 He alth 5 MG tablet 09:37: (one) time 59 each day. gabapentin Yes 600mg Q.[id number] Take 600 UT (Neurontin) 06-11 [id number] mg by H ealth 600 MG 09:37: 3D mouth in tablet 59 the morning and 600 mg at noon and 600 mg in the evening. levothyroxi Yes 88ug QD Take 88 UT ne - mcg by Health (Synthroid, 09:37: mouth 1 Levoxyl) 88 59 (one) time MCG tablet each day. omeprazole 2021- Yes [id number] 20mg QD Take 1 UT OTC 06-11 tablet (20 Health (PriLOSEC 00:00: 04:59 mg total) OTC) 20 MG 00 :00 by mouth 1 EC tablet (one) time each day. Do not crush, chew, or split. Take w/ NSAID Diclofenac 2021- Yes [id number] Q.[id number] Apply UT Sodium 06-11 [id number] topically H ealth (Voltaren) 00:00: 04:59 3D 3 (three) 1 % 00 :00 times a external day if gel needed (pain). Apply 4 grams to affected area, do not exceed greater than 16 grams a day meloxicam 2021- Yes [id number] 7.5mg Take 1 UT (Mobic) 7.5 06-11 tablet Healt h MG tablet 00:00: 04:59 (7.5 mg 00 :00 total) by mouth 1 (one) time each day if needed (pain). omeprazole 2021- Yes [id number] 20mg QD Take 1 UT OTC 06-11 tablet (20 Health (PriLOSEC 00:00: 04:59 mg total) OTC) 20 MG 00 :00 by mouth 1 EC tablet (one) time each day. Do not crush, chew, or split. Take w/ NSAID Diclofenac 2021- Yes [id number] Q.[id number] Apply UT Sodium 06-11 [id number] topically H ealth (Voltaren) 00:00: 04:59 3D 3 (three) 1 % 00 :00 times a external day if gel needed (pain). Apply 4 grams to affected area, do not exceed greater than 16 grams a day meloxicam 2021- Yes [id number] 7.5mg Take 1 UT (Mobic) 7.5 06-11 tablet Healt h MG tablet 00:00: 04:59 (7.5 mg 00 :00 total) by mouth 1 (one) time each day if needed (pain). omeprazole 2021- Yes [id number] 20mg QD Take 1 UT OTC 06-11 tablet (20 Health (PriLOSEC 00:00: 04:59 mg total) OTC) 20 MG 00 :00 by mouth 1 EC tablet (one) time each day. Do not crush, chew, or split. Take w/ NSAID Diclofenac 2021- Yes [id number] Q.[id number] Apply UT Sodium 06-11 [id number] topically H ealth (Voltaren) 00:00: 04:59 3D 3 (three) 1 % 00 :00 times a external day if gel needed (pain). Apply 4 grams to affected area, do not exceed greater than 16 grams a day meloxicam 2021- Yes [id number] 7.5mg Take 1 UT (Mobic) 7.5 06-11 tablet Healt h MG tablet 00:00: 04:59 (7.5 mg 00 :00 total) by mouth 1 (one) time each day if needed (pain). methylPREDN 2021- Yes [id number] 4mg Take 1 UT ISolone 06-11 tablet (4 Health (Medrol 00:00: 04:59 mg total) Dospak) 4 00 :00 by mouth 1 MG tablets (one) time for 1 dose. Use as directed by package instructio ns levothyroxi Yes 88ug QD Take 1 Meth kathleen ne 8-28 tablet (88 st (SYNTHROID) 22:14: mcg total) Hospita 88 mcg 00 by mouth l tablet daily. omeprazole Yes 20mg QD Take 1 Metho di (PriLOSEC) 06-[address] 20 MG 22:14: (20 mg Hospita capsule 00 total) by l mouth daily. methocarbam 2021-0 Yes 500mg Q.5D Take 1 Met hodi oL - tablet st (ROBAXIN) 22:14: (500 mg Hospi ta 500 MG 00 total) by l tablet mouth 2 (two) times a day. traMADoL 2021-0 Yes [id number] 50mg Q.5D Take 1 Method i (ULTRAM) 50 06-07 tablet (50 st mg tablet 22:14: mg total) Hos levy 00 by mouth 2 l (two) times a day .acute pain. oxyCODone 2021-0 Yes [id number] 15mg Q.[id number] Take 1 Methodi (ROXICODONE 06-07 [id number] tablet (15 st ) 15 MG 22:14: 3D mg total) Hospi ta immediate 00 by mouth 3 l release (three) tablet times a day .acute pain. Max Daily Amount: 45 mg gabapentin 2021-0 Yes 600mg Q.[id number] Take 1 [facility]i (NEURONTIN) 06-[id number] 600 mg 22:14: 3D (600 mg Hospita tablet 00 total) by l mouth 3 (three) times a day. diclofenac 2021-0 Yes 75mg QD Take 1 Metho di (VOLTAREN) 06-07 tablet (75 st 75 MG EC 22:14: mg total) Hosp vick tablet 00 by mouth l daily. escitalopra 2021-0 Yes 20mg QD Take 1 Meth kathleen m (LEXAPRO) 06-07 tablet (20 st 20 MG 22:14: mg total) Hospita tablet 00 by mouth l daily. rosuvastati 2-0 Yes 20mg QD Take 1 Meth kathleen n (CRESTOR) 06-07 tablet (20 st 20 mg 22:14: mg total) Hospita tablet 00 by mouth l daily. felodipine 2-0 Yes 5mg QD Take 1 Metho di (PLENDIL) 5 06-07 tablet (5 st MG 24 hr 22:14: mg total) Hosp vick tablet 00 by mouth l daily. buPROPion 2-0 Yes 300mg QD Take 1 Metho di XL 06-[address] (WELLBUTRIN 22:14: (300 mg Hos levy XL) 300 MG 00 total) by l 24 hr mouth tablet daily. ARIPiprazol Yes 5mg QD Take 1 Meth kathleen e (ABILIFY) 06-07 tablet (5 st 5 MG tablet 22:14: mg total) H ospita 00 by mouth l daily. vortioxetin 2021- No 10mg QD Take 10 mg [facility]i e 06-[address] (TRINTELLIX 18:46: 00:00 daily. Hos levy ) 10 mg 00 :00 l tablet sertraline 2021- No 50mg QD Take 50 mg [facility]i (ZOLOFT) 50 06-[address] MG tablet 18:45: 00:00 daily. Hospi ta 51 :00 l methylpheni 2021- No 54mg QD Take 54 mg Methodi date HCl 06-[address] (CONCERTA) 18:45: 00:00 every Hospi ta 54 MG CR 32 :00 morning. l tablet omeprazole No 40mg QD Take 40 mg [facility] (PriLOSEC) 06-[address] 40 MG 18:44: 00:00 daily Hospita capsule 55 :00 before l breakfast. clonAZEPAM 2021- No 1mg Q.[id number] Take 1 mg [facility] (KlonoPIN) 06-06 [id number] by mouth 3 st 1 MG tablet 18:44: 00:00 3D (three) Ho spita 34 :00 times a l day. levothyroxi 2021- No 75ug QD Take 75 Me thodi ne 06-[address] (SYNTHROID, 18:44: 00:00 mouth Hosp vick LEVOXYL) 75 09 :00 every l mcg tablet morning. predniSONE 2021- No 20mg QD Take 1 Meth kathleen (DELTASONE) 06-0602 tablet (20 s t 20 mg 00:00: 04:59 mg total) Hospit a tablet 00 :00 by mouth l daily for 5 days. levothyroxi Yes [id number] 88ug Take 1 Univers ne 88 mcg 8-24 tablet by ity o f tablet 00:00: [employer] [employer] [facility] [employer] 00 every Medical morning. Branch levothyroxi 2022-0 Yes [id number] 88ug Take 1 Univers ne 88 mcg 8-24 tablet by ity o f tablet 00:00: [employer] [facility] [employer] 00 every Medical morning. Branch diclofenac 2022-0 Yes 75mg Q.5D Take 75 mg U T (Voltaren) 8-22 by mouth Healt h 75 MG EC 00:00: in the tablet 00 morning and 75 mg before bedtime. oxyCODONE 2022-0 Yes 15mg Q.[id number] Take 15 mg UT (Roxicodone 8-22 [id number] by mouth 3 Health ) 15 MG 00:00: 3D (three) immediate 00 times a release day if tablet needed. diclofenac 2022-0 Yes 75mg Q.5D Take 75 mg U T (Voltaren) 8-22 by mouth Healt h 75 MG EC 00:00: in the tablet 00 morning and 75 mg before bedtime. oxyCODONE 2022-0 Yes 15mg Q.[id number] Take 15 mg UT (Roxicodone 8-22 [id number] by mouth 3 Health ) 15 MG 00:00: 3D (three) immediate 00 times a release day if tablet needed. diclofenac 2022-0 Yes 75mg Q.5D Take 75 mg U T (Voltaren) 8-22 by mouth Healt h 75 MG EC 00:00: in the tablet 00 morning and 75 mg before bedtime. oxyCODONE 2022-0 Yes 15mg Q.[id number] Take 15 mg UT (Roxicodone 8-22 [id number] by mouth 3 Health ) 15 MG 00:00: 3D (three) immediate 00 times a release day if tablet needed. diclofenac 2022-0 Yes 75mg Q.5D Take 75 mg U T (Voltaren) 8-22 by mouth Healt h 75 MG EC 00:00: in the tablet 00 morning and 75 mg before bedtime. oxyCODONE 2022-0 Yes 15mg Q.[id number] Take 15 mg UT (Roxicodone 8-22 [id number] by mouth 3 Health ) 15 MG 00:00: 3D (three) immediate 00 times a release day if tablet needed. diclofenac 2022-0 Yes 75mg Q.5D Take 75 mg U T (Voltaren) 8- by mouth Healt h 75 MG EC 00:00: in the tablet 00 morning and 75 mg before bedtime. oxyCODONE 2022-0 Yes 15mg Q.[id number] Take 15 mg UT (Roxicodone 06-01 [id number] by mouth 3 Health ) 15 MG 00:00: 3D (three) immediate 00 times a release day if tablet needed. buPROPion 2022-0 Yes TAKE 1 UT XL 8-19 TABLET BY [facility] (Wellbutrin 00:00: MOUTH XL) 150 MG 00 EVERY 24 hr MORNING tablet WITH THE 300MG buPROPion 2022-0 Yes TAKE 1 UT XL 8-19 TABLET BY [facility] (Wellbutrin 00:00: MOUTH XL) 150 MG 00 EVERY 24 hr MORNING tablet WITH THE 300MG buPROPion 2022-0 Yes TAKE 1 UT XL 8-19 TABLET BY [facility] (Wellbutrin 00:00: MOUTH XL) 150 MG 00 EVERY 24 hr MORNING tablet WITH THE 300MG buPROPion 2022-0 Yes TAKE 1 UT XL 8-19 TABLET BY [facility] (Wellbutrin 00:00: MOUTH XL) 150 MG 00 EVERY 24 hr MORNING tablet WITH THE 300MG buPROPion 2022-0 Yes TAKE 1 UT XL 8-19 TABLET BY [facility] (Wellbutrin 00:00: MOUTH XL) 150 MG 00 EVERY 24 hr MORNING tablet WITH THE 300MG traMADol 2-0 Yes 50mg Q.5D Take 50 mg UT (Ultram) 50 8-10 by mouth Heal th MG tablet 00:00: in the 00 morning and 50 mg in the evening. traMADol 2022-0 Yes 50mg Q.5D Take 50 mg UT (Ultram) 50 8-10 by mouth Heal th MG tablet 00:00: in the 00 morning and 50 mg in the evening. traMADol 2022-0 Yes 50mg Q.5D Take 50 mg UT (Ultram) 50 8-10 by mouth Heal th MG tablet 00:00: in the 00 morning and 50 mg in the evening. traMADol 2022-0 Yes 50mg Q.5D Take 50 mg UT (Ultram) 50 8-10 by mouth Heal th MG tablet 00:00: in the 00 morning and 50 mg in the evening. traMADol 2022-0 Yes 50mg Q.5D Take 50 mg UT (Ultram) 50 8-10 by mouth Heal th MG tablet 00:00: in the 00 morning and 50 mg in the evening. traMADoL 50 2021-0 Yes Univer s mg tablet 8-10 ity of 00:00: [place] 00 Medical Branch traMADoL 50 2021-0 Yes Univer s mg tablet 8-10 ity of 00:00: [place] [address] Medical Branch gabapentin 2021-0 Yes [id number] 600mg Take 1 Univers 600 mg 8-08 tablet by ity of tablet 00:00: mouth in [place] 00 the Medical morning Branch and 1 tablet at noon and 1 tablet in the evening. gabapentin 2021-0 Yes [id number] 600mg Take 1 Univers 600 mg 8-08 tablet by ity of tablet 00:00: mouth in [place] 00 the Medical morning Branch and 1 tablet at noon and 1 tablet in the evening. methocarbam 2021-0 Yes TAKE 1 Univ ers oL 500 mg 7-26 TABLET BY ity o f tablet 00:00: MOUTH [place] 00 TWICE Medical DAILY FOR Branch 27 DAYS oxyCODONE-a 2021-0 Yes TAKE 1 Univ ers cetaminophe 7-26 TABLET BY ity of n 10-325 mg 00:00: MOUTH [place] per tablet 00 THREE Medical TIMES Branch DAILY FOR 27 DAYS NEEDED methocarbam 2021-0 Yes TAKE 1 Univ ers oL 500 mg 7-26 TABLET BY ity o f tablet 00:00: MOUTH [place] 00 TWICE Medical DAILY FOR Branch 27 DAYS oxyCODONE-a 2021-0 Yes TAKE 1 Univ ers cetaminophe 7-26 TABLET BY ity of n 10-325 mg 00:00: MOUTH [place] per tablet 00 THREE Medical TIMES Branch DAILY FOR 27 DAYS NEEDED diclofenac 2021-0 Yes TAKE 1 Unive rs 50 mg EC 6-27 TABLET BY ity of tablet 00:00: MOUTH [place] 00 TWICE Medical DAILY FOR Branch 29 DAYS diclofenac 2021-0 Yes TAKE 1 Unive rs 50 mg EC 6-27 TABLET BY ity of tablet 00:00: MOUTH [place] 00 TWICE Medical DAILY FOR Branch 29 DAYS ibuprofen 2021-0 2- No 600mg Take [address] [facility] (ADVIL,MOTR 5-14 05-24 tablet [facility]) 600 MG 00:00: 23:59 (600 mg Med ical tablet 00 :00 total) by Center mouth every 6 (six) hours as needed for Pain for up to 10 days. ibuprofen 2022-0 2022- No 600mg Take [address] [facility] [address] (ADVIL,MOTR 5-13 05-14 tablet [facility]) 600 MG 00:00: 00:00 (600 mg Med ical tablet 00 :00 total) by Center mouth every 6 (six) hours as needed for Pain for up to 10 days. metaxalone 2022-0 Yes 800mg Take 800 UT (Skelaxin) 3-28 mg by Health 800 MG 00:00: mouth tablet 00 every 8 (eight) hours if needed. metaxalone 2022-0 Yes 800mg Take 800 UT (Skelaxin) 3-28 mg by Health 800 MG 00:00: mouth tablet 00 every 8 (eight) hours if needed. metaxalone 2022-0 Yes 800mg Take 800 UT (Skelaxin) 3-28 mg by Health 800 MG 00:00: mouth tablet 00 every 8 (eight) hours if needed. metaxalone 2022-0 Yes 800mg Take 800 UT (Skelaxin) 3-28 mg by Health 800 MG 00:00: mouth tablet 00 every 8 (eight) hours if needed. metaxalone 2022-0 Yes 800mg Take 800 UT (Skelaxin) 3-28 mg by Health 800 MG 00:00: mouth tablet 00 every 8 (eight) hours if needed. liothyronin 2022-0 Yes 5ug Take 5 mcg UT e (Cytomel) 1-11 by mouth. Hea lth 5 MCG 00:00: tablet 00 metoprolol 2022-0 Yes 100mg Take 100 UT succinate 1-11 mg by Health XL 00:00: mouth. (Toprol-XL) 00 100 MG 24 hr tablet rosuvastati 2022-0 Yes 20mg QD Take 20 mg UT n (Crestor) 1-11 by mouth 1 He alth 20 MG 00:00: (one) time tablet 00 each day. liothyronin 2022-0 Yes 5ug Take 5 mcg UT e (Cytomel) 1-11 by mouth. Hea lth 5 MCG 00:00: tablet 00 metoprolol 2022-0 Yes 100mg Take 100 UT succinate 1-11 mg by Health XL 00:00: mouth. (Toprol-XL) 00 100 MG 24 hr tablet rosuvastati 2022-0 Yes 20mg QD Take 20 mg UT n (Crestor) 1-11 by mouth 1 He alth 20 MG 00:00: (one) time tablet 00 each day. liothyronin 2-0 Yes 5ug Take 5 mcg UT e (Cytomel) 1-11 by mouth. Hea lth 5 MCG 00:00: tablet 00 metoprolol 2-0 Yes 100mg Take 100 UT succinate 1-11 mg by Health XL 00:00: mouth. (Toprol-XL) 00 100 MG 24 hr tablet rosuvastati 2-0 Yes 20mg QD Take 20 mg UT n (Crestor) 1-11 by mouth 1 He alth 20 MG 00:00: (one) time tablet 00 each day. liothyronin 2-0 Yes 5ug Take 5 mcg UT e (Cytomel) 1-11 by mouth. Hea lth 5 MCG 00:00: tablet 00 metoprolol 2-0 Yes 100mg Take 100 UT succinate 1-11 mg by Health XL 00:00: mouth. (Toprol-XL) 00 100 MG 24 hr tablet rosuvastati 2-0 Yes 20mg QD Take 20 mg UT n (Crestor) 1-11 by mouth 1 He alth 20 MG 00:00: (one) time tablet 00 each day. liothyronin 2-0 Yes 5ug Take 5 mcg UT e (Cytomel) 1-11 by mouth. Hea lth 5 MCG 00:00: tablet 00 metoprolol 2-0 Yes 100mg Take 100 UT succinate 1-11 mg by Health XL 00:00: mouth. (Toprol-XL) 00 100 MG 24 hr tablet rosuvastati 2-0 Yes 20mg QD Take 20 mg UT n (Crestor) 1-11 by mouth 1 He alth 20 MG 00:00: (one) time tablet 00 each day. omeprazole 2022-0 Yes [id number] 20mg Take 1 Univers 20 mg 1-11 capsule by ity of capsule 00:00: mouth [place] 00 daily. Medical Branch liothyronin 2022-0 Yes [id number] 5ug Take 1 Univers e 5 mcg 1-11 tablet by ity of tablet 00:00: mouth 2 [place] 00 (two) Medical times Branch daily. metoprolol 2022-0 Yes [id number] 100mg Take 1 Univers succinate 1-11 tablet by ity o f XL 100 mg 00:00: mouth [place] 24 hr 00 daily. Medical tablet Branch felodipine Yes [id number] 5mg Take 1 U nivers 5 mg 24 hr 1-11 tablet by ity of tablet 00:00: mouth at [place] [address] bedtime. Medical Branch rosuvastati Yes [id number] 20mg Take 1 Univers n 20 mg 1-11 tablet by ity of tablet 00:00: mouth at [place] 00 bedtime. Medical Branch omeprazole Yes [id number] 20mg Take 1 Univers 20 mg 1-11 capsule by ity of capsule 00:00: mouth [place] 00 daily. Medical Branch liothyronin Yes [id number] 5ug Take 1 Univers e 5 mcg 1-11 tablet by ity of tablet 00:00: mouth 2 [place] 00 (two) Medical times Branch daily. metoprolol Yes [id number] 100mg Take 1 Univers succinate 1-11 tablet by ity o f XL 100 mg 00:00: mouth [place] 24 hr 00 daily. Medical tablet Branch felodipine Yes [id number] 5mg Take 1 U nivers 5 mg 24 hr 1-11 tablet by ity of tablet 00:00: mouth at [place] [address] bedtime. Medical Branch rosuvastati Yes [id number] 20mg Take 1 Univers n 20 mg 1-11 tablet by ity of tablet 00:00: mouth at [place] [address] bedtime. Medical Branch nabumetone 2020-10 Yes 750mg Q.5D Take 750 UT (Relafen) 1-18 mg by Health 750 MG 00:00: mouth in tablet 00 the morning and 750 mg before bedtime. nabumetone 2020-10 Yes 750mg Q.5D Take 750 UT (Relafen) 1-18 mg by Health 750 MG 00:00: mouth in tablet 00 the morning and 750 mg before bedtime. nabumetone 2020-10 Yes 750mg Q.5D Take 750 UT (Relafen) 1-18 mg by Health 750 MG 00:00: mouth in tablet 00 the morning and 750 mg before bedtime. nabumetone 2020-10 Yes 750mg Q.5D Take 750 UT (Relafen) 1-18 mg by Health 750 MG 00:00: mouth in tablet 00 the morning and 750 mg before bedtime. nabumetone 2020-10 Yes 750mg Q.5D Take 750 UT (Relafen) 1-18 mg by Health 750 MG 00:00: mouth in tablet 00 the morning and 750 mg before bedtime. buPROPion Yes Univers XL 300 mg 5-21 ity of 24 hr 00:00: [place] tablet [facility] buPROPion 2019- Yes Univers XL 300 mg 5-21 ity of 24 hr 00:00: [place] tablet [facility] escitalopra Yes 20mg Take 20 mg Univers m oxalate 3-27 by mouth ity of 20 mg 00:00: daily. [place] tablet [facility] escitalopra Yes 20mg Take 20 mg Univers m oxalate 3-27 by mouth ity of 20 mg 00:00: daily. [address] omeprazole Yes 40mg QD Take [address] (PRILOSEC) 6-28 by mouth [facility] 40 MG 13:36: every Medical capsule 16 morning. [place] metoprolol Yes 100mg QD Take [address] (TOPROL-XL) 6-28 mg by [facility] 100 MG 24 13:36: mouth Medical hr tablet 16 daily. [place] vortioxetin Yes 10mg QD Take [address] [facility] 10 mg Tab 6-28 by mouth Luke s 13:36: daily. [address] OLANZapine Yes 15mg QD Take [address] (ZYPREXA) 6-28 by mouth [facility] 15 MG 13:36: nightly. Medical tablet 16 [place] methylpheni Yes 54mg QD Take [address] date HCl 6-28 by mouth [facility] (CONCERTA) 13:36: every Medica l 54 MG CR 16 morning. [place] tablet liothyronin Yes 5ug Q.5D Take [address] e (CYTOMEL) 6-28 by mouth 2 [place] kes 5 MCG 13:36: (two) Medical tablet 16 times Center daily. liothyronin 0 Yes 5ug Q.5D Take 5 mcg Methodi e (CYTOMEL) 2-[address] 5 MCG 08:25: (two) Hospita tablet 53 times a l day. metoprolol Yes 100mg QD Take 100 Me thodi succinate 2-[address] XL 08:25: mouth Hospita (TOPROL-XL) 53 daily. l 100 mg 24 hr tablet traZODone 2018-0 Yes 200mg QD Take 200 Met hodi (DESYREL) 2-[address] 100 MG 08:25: mouth Hospita tablet 53 nightly. l Immunizations Ordered Filled Immunization Date Status Comments [facility] Immunization Name Name influenza virus 2022-07-16 Completed [facility] vaccine, 16:15:00 inactivated TDAP 2022-05-25 Completed [facility] 00:00:00 [facility] Pneumococcal 20 2022-05-25 Completed Universit y of Conjugate, PCV20 00:00:00 [facility] dical (Prevnar 20) Branch TDAP 2022-05-25 Completed [facility] 00:00:00 [facility] Pneumococcal 20 2022-05-25 Completed Universit y of Conjugate, PCV20 00:00:00 [facility] dical (Prevnar 20) Branch SARS-COV-2 COVID-19 2021-10-21 Completed Unive rsity of MODERNA 0.25ML 00:00:00 [place] Medi shelia BOOSTER VACCINE Branch SARS-COV-2 COVID-19 2021-10-21 Completed Unive rsity of MODERNA 0.25ML 00:00:00 [place] Medi shelia BOOSTER VACCINE Branch Influenza Virus 2021-03-17 Completed Universit y of Vaccine Quad IM, 00:00:00 [facility] dical Preserv and ABX Branch Free 6 MO-64 YRS Influenza Virus 2021-03-17 Completed Universit y of Vaccine Quad IM, 00:00:00 [facility] dical Preserv and ABX Branch Free 6 MO-64 YRS SARS-COV-2 COVID-19 2021-01-15 Completed Unive rsity of MODERNA 12+ YRS 00:00:00 [place] Med ical VACCINE Branch SARS-COV-2 COVID-19 2021-01-15 Completed Unive rsity of MODERNA 12+ YRS 00:00:00 [place] Med ical VACCINE Branch SARS-COV-2 COVID-19 2020-12-18 Completed Unive rsity of MODERNA 12+ YRS 00:00:00 [place] Med ical VACCINE Branch SARS-COV-2 COVID-19 2020-12-18 Completed Unive rsity of MODERNA 12+ YRS 00:00:00 [facility] VACCINE Branch Vital Signs Vital Name Observation Time Observation Value Comments Source Body height 2022-07-30 15:11:00 162.6 cm [facility] Body weight 2022-07-30 15:11:00 103.42 [facility] BMI 2022-07-30 15:11:00 39.14 kg[facility]m2 [facility] height 2022-07-23 20:28:00 162[facility]6 [facility] weight 2022-07-23 20:28:00 103[facility]42 [facility] BMI 2022-07-23 20:28:00 39.14 kg[facility]m2 [facility] height 2022-07-10 15:23:00 162[facility]6 [facility] weight 2022-07-10 15:23:00 103[facility]42 [facility] BMI 2022-07-10 15:23:00 39.14 [facility]m2 [facility] 2022-06-24 13:22:00 162.6 cm [facility] weight 2022-06-24 13:22:00 103.42 [facility] BMI 2022-06-24 13:22:00 39.14 kg/m2 [facility] 2022-06-11 14:28:00 162.6 cm [facility] weight 2022-06-11 14:28:00 103.42 [facility] BMI 2022-06-11 14:28:00 39.14 kg/m2 [facility] HEIGHT 2022-02-20 19:22:00 165.1 cm WEIGHT 2022-02-20 19:22:00 99.791 kg HEIGHT 2022-02-20 19:22:00 165.1 cm WEIGHT 2022-02-20 19:22:00 99.791 kg Heart Rate 2022-07-17 13:07:11 [facility] [place] Respitory Rate 2022-07-17 13:07:11 Erika Lo Systolic (mm Hg) 2022-07-17 13:06:54 Stefan Mera Diastolic (mm Hg) 2022-07-17 13:06:54 Carmen Mera Heart Rate 2022-07-17 13:06:54 [facility] Temperature Oral (F) 2022-07-17 13:06:50 99 F [facility] Heart Rate 2022-07-17 10:15:30 [facility] Respitory Rate 2022-07-17 10:15:30 [facility] [place] Systolic (mm Hg) 2022-07-17 10:15:21 Stefan [facility] Diastolic (mm Hg) 2022-07-17 10:15:21 [facility] [place] Temperature Oral (F) 2022-07-17 10:14:55 98.6 F [facility] Respitory Rate 2022-07-17 06:39:06 [facility] Systolic (mm Hg) 2022-07-17 06:38:47 Stefan [facility] Diastolic (mm Hg) 2022-07-17 06:38:47 [facility] [place] Temperature Oral (F) 2022-07-17 06:38:29 100.1 F [facility] Height 2022-07-14 20:55:00 165.1 cm [facility] Weight 2022-07-14 20:55:00 [facility] [place] BMI Calculated 2022-07-14 20:55:00 [facility] [place] Height 2022-07-02 12:57:00 162.56 cm [facility] [place] Weight 2022-07-02 12:57:00 [facility] BMI Calculated 2022-07-02 12:57:00 [facility] Systolic blood 2022-06-07 03:01:00 120 mm[Hg] Method ist [facility] pressure Diastolic blood 2022-06-07 03:01:00 62 mm[Hg] [facility] pressure Heart rate 2022-06-07 03:01:00 65 /min [facility] Respiratory rate 2022-06-07 03:01:00 18 /min [facility] Oxygen saturation in 2022-06-07 03:01:00 97 /min [facility] Arterial blood by Pulse oximetry Body height 2022-06-06 23:39:00 165.1 cm [facility] Body weight 2022-06-06 23:39:00 99.791 kg [facility] BMI 2022-06-06 23:39:00 36.61 kg/m2 [facility] Body temperature 2022-06-06 23:27:39 36.72 [facility] Diastolic blood 2022-02-21 01:00:00 80 mm[Hg] [facility] Heart rate 2022-02-21 01:00:00 90 /min [facility] Body temperature 2022-02-21 01:00:00 36.5 Elvira [facility] Respiratory rate 2022-02-21 01:00:00 18 /min [facility] Oxygen saturation in 2022-02-21 01:00:00 97 /min [facility] Arterial blood by Medical Ce nter Pulse oximetry Systolic blood 2022-02-21 01:00:00 151 mm[Hg] [facility] Body height 2022-02-20 19:22:00 165.1 cm [facility] Body weight 2022-02-20 19:22:00 99.791 kg [facility] BMI 2022-02-20 19:22:00 36.61 kg/m2 [facility] Procedures Procedure Date / Time Performing Clinician Source Performed CT PELVIS WO CONTRAST 2022-06-07 00:38:30 Elton Stringer [facility] MR LUMBAR SPINE WITHOUT 2022-02-20 21:52:00 Brian Morton [facility] IV CONTRAST Center Thyroidectomy<sup>1</sup [facility] [place] > EGD [facility] (esophagogastroduodenosc opy) gastric outlet reduction Colonoscopy [facility] LAMINECTOMY [facility] SUBTALAR FUSION [facility] Hysterectomy [facility] HERNIA REPAIR [facility] Plan of Care Planned Activity Planned Date Details Comments Source Future Scheduled 2022-06-30 HEPATITIS B VACCINES [facility] Test 12:34:57 (1 of 3 - 3-dose series) [code = HEPATITIS B VACCINES (1 of 3 - 3-dose series)] Future Scheduled 2022-06-30 Hepatitis C screening [facility] Test 12:34:57 (procedure) [code = 685452220] Future Scheduled 2022-06-30 Screening for [facility] Test 12:34:57 malignant neoplasm of cervix (procedure) [code = 798438480] Future Scheduled 2022-06-30 BREAST CANCER [facility] Test 12:34:57 SCREENING [code = BREAST CANCER SCREENING] Future Scheduled 2022-06-30 COLONOSCOPY SCREENING [facility] Test 12:34:57 [code = COLONOSCOPY SCREENING] Future Scheduled 2022-06-30 SHINGLES VACCINES (1 [facility] Test 12:34:57 of 2) [code = SHINGLES VACCINES (1 of 2)] Future Scheduled 2022-06-30 COVID-19 VACCINE (4 - [facility] Test 12:34:57 Booster for Moderna series) [code = COVID-19 VACCINE (4 - Booster for Moderna series)] Future Scheduled 2022-06-30 INFLUENZA VACCINE [facility] Test 12:34:57 [code = INFLUENZA VACCINE] Future Scheduled 2022-06-11 INFLUENZA VACCINE (#1[facility] Test 00:[facility]00 [code = INFLUENZA Medical Ce nter VACCINE (#1)] Future Scheduled 2022-02-18 COVID-19 VACCINE (4 - [facility] Test 00[facility]00:00 Booster for Moderna [facility] series) [code = COVID-19 VACCINE (4 - Booster for Moderna series)] Future Scheduled 2013 SHINGLES VACCINES ([address] [facility] Test 00:00:00 of 2) [code = SHINGLES Medic al Center VACCINES (1 of 2)] Future Scheduled [address] [facility] Test 00:00:00 (procedure) [code = Medical Center 13517087] Future Scheduled [address] [facility] Test 00:[facility]:00 malignant neoplasm of Medica l Center cervix (procedure) [code = 712005533] Future Scheduled 1982 DTAP/TDAP/TD VACCINES [facility] Test 00:00:00 (1 - Tdap) [code = Medical C enter DTAP/TDAP/TD VACCINES (1 - Tdap)] Future Scheduled 1981 HEPATITIS C [facility]CREENING [facility] Test 00:00:00 [code = HEPATITIS C Medical Center SCREENING] Future Scheduled [address] [facility] Test 00:00:00 malignant neoplasm of Medica l Center breast (procedure) [code = 663319837] Future Scheduled [address] [facility] Test 00:00:00 (combo) [code = CT Medical C enter Colonography (combo)] Future Scheduled [address] [facility] Test 00:00:00 malignant neoplasm of Medica l Center colon (procedure) [code = 370039416] Future Scheduled [address] [facility] Test 00:00:00 malignant neoplasm of Medica l Center colon (procedure) [code = 708007490] Future Scheduled [address] [facility] Test 00:00:00 malignant neoplasm of Medica l Center colon (procedure) [code = 695303497] Future Scheduled [address] [facility] Test 00:00:00 malignant neoplasm of Medica l Center colon (procedure) [code = 701436756] Future Scheduled 1963 Sigmoidoscopy [code [facility] Test 00:00:[facility] Sigmoidoscopy] Medical Rob r Encounters Start End Encounter Admission Attending Care Care Encounter Source Date/Time Date/Time Type Type Clinicians Facility Department ID 2022-07-28 Outpatient [facility] ER [id number] [place] 09:55:18 [id number] [facility] 2022-05-27 Outpatient [facility] [id number] Univers 15:20:24 [facility] 2022-05-27 Outpatient [facility] S[facility] [id number] Univers 11:58:36 [facility] 2021-08-09 Emergency [facility] [id number] Univers 12:48:28 [facility] 2022-08-06 2022-08-06 Outpatient [facility] [id number] [place] 10:15:00 10:15:00 [facility] 2022-08-06 2022-08-06 Outpatient [facility] [id number] [place] 10:15:00 10:15:00 [facility] 2022-07-30 2022-07-30 Office Gideon [facility] 1.2.840.114 [id number] [place] 10:15:00 10:41:42 Visit [facility] 350.1.13.58 H [facility] Emergency Department 9.2.7.2.686 [address] [id number] 2022-07-23 2022-07-23 Office CIPRIANO Payne H 1.2.840.114 [id number] [place] 14:45:00 15:50:46 Visit Barry MELGAR 350.1.13.58 H [facility] MEDICAL 9.2.7.2.686 [address] 4 [id number] 2022-07-14 2022-07-17 Inpatient Critical access hospital [id number] [facility] 10:32:00 16:00:00 r Ede 00 l [facility] 2022-07-14 2022-07-17 Inpatient PAYNE, SE [facility]SE [id number] MH 05:32:00 11:00:00 BARRY [facility] 2022-07-14 2022-07-17 Outpatient Payne, [facility] [id number] 05:32:00 11:00:00 Barry Fraga 00 2022-07-14 2022-07-17 Outpatient Gideon, SE [facility] [id number] 05:32:00 11:00:00 Barry Fraga 00 2022-07-10 2022-07-10 [facility] 1.2.840.114 [id number] [place] 10:45:00 11:24:21 Visit Barry MELGAR 350.1.13.58 H [facility] Emergency Department 9.2.7.2.686 [address] 0 [id number] 2022-06-26 2022-06-26 Outpatient R GALINDO, [facility] [id number] [facility] 09:00:00 09:00:00 RADHA carroll [facility] 2022-06-24 2022-06-24 [facility] 1.2.840.114 [id number] [place] 08:30:00 09:19:49 Visit Barry MELGAR 350.1.13.58 H [facility] Emergency Department 9.2.7.2.686 [address] 9 [id number] 2022-06-19 2022-06-19 Patient Rinku [facility] 1.2.840.114 [id number] Univers 00:00:00 00:00:00 Secure [facility] 350.1.13.10 glen [facility] 4.2.7.2.686 Branden as VIKTOR?BLEA [id number] Ms clemente LIZ [address] [place] [address] OFFICE [facility] 2022-06-19 2022-06-19 Telephone [facility] 1.2.896.635 [id number] Univers 00:00:00 00:00:00 Marcial HEALTH 350.1.13.10 it y of [facility] 4.2.7.2.686 Branden as VIKTOR?BLEA [id number] Ms clemente LIZ [address] [place] [address] 2022-06-17 2022-06-17 Telephone [facility] 1.2.713.143 [id number] Univers 00:00:00 00:00:00 Marcial [facility] 350.1.13.10 i ty [facility] 4.2.7.2.[place] [id number] Ms clemente [address] 2022-06-17 2022-06-17 [facility] 1.2.599.565 [id number] Univers 00:00:00 00:00:00 Marcial Wickr 350.1.13.10 it y of [facility] 4.2.7.2.686 Branden as VIKTOR?BLEA [id number] [address] 2022-06-16 2022-06-16 Engineering And Operations Director Lab, Ang - [facility] 1.2.840.1 14 [id number] Univers 16:30:00 16:30:26 Visit Rinku Marcial [facility] 350.1.13.10 ity of [facility] 4.2.7.2.686 Branden as VIKTOR?BLEA [id number] [facility] AGUSTO [address] [facility] OFFICE [facility] 2022-06-16 2022-06-16 Outpatient R RINKU [facility] [id number] Univers 16:30:00 16:30:00 MARCIAL ity of [facility] 2022-06-16 2022-06-16 Telephone [facility] 1.2.162.614 [id number] Univers 00:00:00 00:00:00 Marcial HEALTH 350.1.13.10 it y of [facility] 4.2.7.2.686 Branden as VIKTOR?BLEA [id number] [address] OFFICE [facility] 2022-06-12 2022-06-12 Engineering And Operations Director Lab, Ang - Db [facility] 1.2.840.1 14 [id number] Univers 16:15:00 16:17:26 Visit PeymanMarcial reyes SAIDA 350.1.13.10 ity of [facility] 4.2.7.2.686 Branden as VIKTOR?BLEA [id number] Ms clemente LIZ [address] [facility] OFFICE [facility] 2022-06-12 2022-06-12 Outpatient R RINKU [facility] [id number] Univers 16:15:00 16:15:00 MARCIAL clintonleigh [facility] 2022-06-12 2022-06-12 Outpatient R RINKU [facility] [id number] Univers 15:30:00 15:55:09 MARCIAL clintonleigh [facility] 2022-06-12 2022-06-12 [facility] 1.2.840.114 [id number] Univers 15:30:00 15:55:09 Visit Marcial [facility] 350.1.13.10 it y of [facility] 4.2.7.2.686 Branden as VIKTOR?BLEA [id number] [address] OFFICE [facility] 2022-06-12 2022-06-12 Outpatient [facility] [id number] Univers 15:30:00 15:55:09 MARCIAL leigh [facility] 2022-06-11 2022-06-11 Outpatient [facility] [id number] [place] 00:00:00 16:22:00 Health 2022-06-11 2022-06-11 Office CIPRIANO Payne [facility] 1.2.840.114 [id number] [place] 09:30:00 10:49:04 Visit Barrygary MELGAR 350.1.13.58 H [facility] Emergency Department 9.2.7.2.686 [address] 0 [id number] 2022-06-09 2022-06-09 Telephone Rinku [facility] 1.2.771.674 [id number] [facility] 00:00:00 00:00:00 Marcial CINTRON 350.1.13.10 it y of [facility] 4.2.7.2.686 Branden as VIKTOR?BLEA [id number] Ms dical AGUSTO [address] [place] [address] MEDICAL OFFICE [facility] 2022-06-08 2022-06-08 Outpatient CAYDEN BAUER [facility] [id number] Univers 08:30:00 08:30:00 glen [facility] 2022-06-08 2022-06-08 Outpatient FOG_A_Provi AOSM AOSM [id number] Grace 00:00:00 00:00:00 alyx [id number] Orthop e [facility] 2022-06-08 2022-06-08 Telephone [facility] 1.2.329.174 [id number] [facility] 00:00:00 00:00:00 [facility] 350.1.13.10 [facility] 4.2.7.2.686 Branden as VIKTOR?BLEA [id number] Ms dical CAROL [address] [place] [address] 2022-06-06 2022-06-06 Emergency Opp, .2.840.1 [id number] Methodi 18:21:00 22:14:[address] [facility] 3.430.2.7 Hospit a .3.510820 l .8 2022-06-06 2022-06-06 Emergency [facility] [id number] [place] [address] 00:00:00 00:00:[address] 2022-06-06 2022-06-06 Travel 1.2.840.1 1.2.786.048 [id number] Methodi 00:00:00 00:00:[address] 3.430.2.7 0.2.7.3.698 Ho spita .3.006611 084.8 l .8 2022-06-04 2022-06-04 Outpatient Kurtis XIONG [facility] SOR [id number] Univers 07:10:00 07:10:00 RHETT carroll [facility] 2022-05-27 2022-05-27 Outpatient Kurtis XIONG [facility] [id number] Univers 08:50:00 10:25:10 RHETT carroll [facility] 2022-05-27 2022-05-27 [facility] 1.2.840.114 [id number] Univers 08:50:00 10:25:10 Visit Rhett Isaac SPECIALTY 350.1.13.10 ity of [place] AT [id number] Ms clemente DOUGHERTY 198 [facility] 2022-05-27 2022-05-27 Out[facility] [id number] Univers 08:50:00 10:25:10 RHETT leigh [facility] 2022-05-27 2022-05-27 Office [facility] 1.2.840.114 [id number] Univers 08:50:00 10:25:10 Visit Rhett MCKEE 350.1.13.10 ity of [place].7.2.[place] [id number] Ms clemente Olmos [facility] 2022-05-27 2022-05-27 Outpatient [facility] [id number] Univers 08:50:00 08:50:00 [facility] 2022-05-27 2022-05-27 Telephone [facility] 1.2.539.724 [id number] Univers 00:00:00 00:00:00 Marcial HEALTH 350.1.13.10 it y of [place] 4.2.7.2.686 Branden as VIKTOR?BLEA [id number] [address] OFFICE [facility] 2022-05-27 2022-05-27 [facility]phone [facility] 1.2.865.602 [id number] Univers 00:00:00 00:00:00 Marcial HEALTH 350.1.13.10 it y of [place] 4.2.7.2.686 Branden as VIKTOR?BLEA [id number] [address] OFFICE [facility] 2022-05-27 2022-05-27 Telephone [facility] 1.2.101.052 [id number] Univers 00:00:00 00:00:00 Marcial HEALTH 350.1.13.10 it y of [place] 4.2.7.2.686 Branden as VIKTOR?BLEA [id number] Ms clemente LIZ [address] MEDICAL OFFICE [facility] 2022-05-27 2022-05-27 Telephone Rinku [facility] 1.2.473.227 [id number] Univers 00:00:00 00:00:00 Marcial CINTRON 350.1.13.10 it y of [place] 4.2.7.2.686 Branden as VIKTOR?BLEA [id number] [facility] LIZ [address] [place] [address] OFFICE [facility] 2022-05-26 2022-05-26 Engineering And Operations Director Lab, Ang - [facility] 1.2.840.1 14 [id number] Univers 07:30:00 07:45:00 Visit Marcial Dobbs 350.1.13.10 ity of [facility] 4.2.7.2.686 Branden as VIKTOR?BLEA [id number] Ms clemente LANDON [address] [facility] OFFICE [facility] 2022-05-26 2022-05-26 Outpatient R RINKU [facility] [id number] Univers 07:30:00 07:30:00 MARCIAL carroll [facility] 2022-05-25 2022-05-25 Outpatient R RINKU [facility] [id number] Univers 14:00:00 14:55:12 MARCIAL carroll [facility] 2022-05-25 2022-05-25 Office Rinku [facility] 1.2.840.114 [id number] Univers 14:00:00 14:55:12 Visit Marcial [facility] 350.1.13.10 it y of [facility] 4.2.7.2.686 Branden as VIKTOR?BLEA [id number] Ms clemente LIZ [address] [place] [address] OFFICE [facility] 2022-05-25 2022-05-25 Outpatient R RINKU [facility] [id number] Univers 14:00:00 14:55:12 MARCIAL clintonleigh [facility] 2022-05-25 2022-05-25 Outpatient R RINKU [facility] [id number] Univers 14:00:00 14:00:00 MARCIAL clintonleigh [facility] 2022-05-23 2022-05-23 Outpatient R ARIS [facility] [id number] Univers 11:20:00 11:47:56 RANIA ity of [facility] 2022-05-23 2022-05-23 [facility] 1.2.840.114 [id number] Univers 11:20:00 11:47:56 Care Yamini HEALTH 350.1.13.10 it y of [place] 4.2.7.2.686 Branden as VIKTOR?BLEA [id number] [facility] [address] MEDICAL OFFICE [facility] 2022-05-20 2022-05-20 [facility] 1.2.856.504 [id number] Univers 17:49:00 23:59:00 Encounter [facility] HEALTH 350.1.13.10 ity of [place] 4.2.7.2.686 Branden as VIKTOR?BLEA [id number] [facility] [address] [facility] OFFICE [facility] 2022-05-20 2022-05-20 Outpatient R [facility] [id number] Univers 17:31:41 17:48:00 ARNOLDO alonzoy o f [facility] 2022-05-20 2022-05-20 [facility] 1.2.449.480 [id number] Univers 17:31:41 17:48:00 Encounter [facility] HEALTH 350.1.13.10 ity of [place] 4.2.7.2.686 Branden as VIKTOR?BLEA [id number] [facility] [address] [place] [address] OFFICE [facility] 2022-05-20 2022-05-20 [facility] 1.2.840. 114 [id number] Univers 17:00:00 17:37:58 Care Eliecer, Nicol HEALTH 350.1.13.10 ity of [place] 4.2.7.2.686 Branden as VIKTOR?BLEA [id number] [facility] [address] MEDICAL OFFICE [facility] 2022-05-20 2022-05-20 [facility] 1.2.840.114 [id number] Univers 00:00:00 00:00:00 Arnoldo HEALTH 350.1.13.10 i ty of [place] 4.2.7.2.686 Branden as VIKTOR?BLEA [id number] Ms dicpaul LIZ [address] [facility] OFFICE [facility] 2022-05-20 2022-05-20 Telephone Rinku [facility] 1.2.646.621 [id number] Univers 00:00:00 00:00:00 Marcial HEALTH 350.1.13.10 it y of [facility] 4.2.7.2.686 Branden as VIKTOR?BLEA [id number] Ms clemente LIZ [address] [facility] OFFICE [facility] 2022-05-18 2022-05-18 Outpatient R RINKU [facility] [id number] Univers 16:00:00 16:43:58 MARCIAL itleigh of [facility] 2022-05-18 2022-05-18 [facility] 1.2.840.114 [id number] Univers 16:00:00 16:43:58 Visit [facility] 350.1.13.10 it y of [facility] 4.2.7.2.686 Branden as VIKTOR?BLEA [id number] [facility] DIPESH [address] [facility] OFFICE [facility] 2022-04-27 2022-04-27 Outpatient [facility] [id number] Univers 13:45:00 15:24:22 RADHA clintonleigh [facility] 2022-04-27 2022-04-27 Ancillary Paulina Velasquez [facility] 1.2.84 0.114 [id number] Univers 13:45:00 15:24:22 Visit Radha Galindo 350.1.13.10 ity of [facility] 4.2.7.2.[place] [id number] Ms dical NAL 179 [facility] 2022-04-15 2022-04-15 Ancillary Nick Vasquez [facility] 1.2.840. 114 [id number] Univers 14:30:00 15:15:00 Visit Radha Galindo 350.1.13.10 ity of [facility] 4.2.7.2.[place] [id number] Ms dical NAL 179 [facility] 2022-04-02 2022-04-02 Outpatient ALEJANDRA ANTONIO [facility] [id number] [address] [place] [address] 08:38:32 12:20:33 SHERICE vega of Medicin e 2022-03-31 2022-03-31 Ancillary Paulina Velasquez [facility] 1.2.84 0.114 [id number] Univers 10:15:00 11:00:00 Visit Radha Galindo 350.1.13.10 ity of [place] 4.2.7.2.[place] [id number] Ms dical NAL 179 [facility] 2022-03-26 2022-03-26 Ancillary Kari Peres [facility] 1.2. 840.114 [id number] Univers 14:30:00 15:15:00 Visit Radha Galindo 350.1.13.10 ity of [place].2.7.2.[place] [id number] Ms dical NAL 179 [facility] 2022-03-24 2022-03-24 Ancillary Paulina Velasquez [facility] 1.2.84 0.114 [id number] Univers 14:30:00 15:15:00 Visit Radha Galindo 350.1.13.10 ity of [place] 4.2.7.2.[place] [id number] Ms dical NAL 179 [facility] 2022-03-16 2022-03-16 Outpatient R JOSIE [facility] [id number] Univers 10:15:00 11:11:20 RADHA itleigh of [facility] 2022-03-16 2022-03-16 Ancillary Paulina Velasquez [facility] 1.2.84 0.114 [id number] Univers 10:15:00 11:11:20 Visit Radha Galindo [id number] ity of [place]2.7.2.[place] [id number] Ms dical NAL 179 [facility] 2022-02-23 2022-02-23 Office Jesus [facility] [id number] Univers 09:00:00 09:30:00 Visit Sterling [facility] [id number] it y of [place] [id number] Branden as VIKTOR?BLEA [id number] Me dical AGUSTO [address] [place] [facility] 2022-02-23 2022-02-23 Outpatient R JESUS [facility] [id number] Univers 09:00:00 09:00:00 STERLING glen [facility] 2022-02-20 2022-02-21 Emergency ER PRAVEEN, [facility] Emergency [id number] SLE 19:32:00 01:26:00 BRIAN 2022-02-20 2022-02-21 [id number] 19:32:00 01:26:00 [facility] 2022-02-20 2022-02-20 Outpatient MARISELA, [facility] [id number] [facility] 14:47:50 14:47:50 SHERICE vega of Medicin e 2022-02-20 2022-02-20 [facility] 1.2.840.114 [id number] Univers 09:30:00 10:00:00 Visit Marcial Wickr [id number] it y of [facility] [id number] Branden as VIKTOR?BLEA [phone] Ms clemente LIZ [address] [place] [address] MEDICAL OFFICE [facility] 2022-02-20 2022-02-20 Outpatient R RINKU [facility] [id number] Univers 09:30:00 09:30:00 MARCIAL carroll [facility] 2022-02-20 2022-02-20 Telephone Rinku [facility] [id number] Univers 00:00:00 00:00:00 [email or web address] [id number] it y of [facility] [id number] Branden as VIKTOR?BLEA [id number] Ms dical AGUSTO [address] [place] [address] MEDICAL OFFICE [facility] 2022-02-20 2022-02-20 Travel [facility] [id number] [facility] 00[facility]:00 [facility] 2022-02-19 2022-02-19 Telephone Kamlesh Rust PINKY 1.2.840.114 [id number] Univers 00:00:00 00:00:00 Health MAUD 350.1.13.[address] [facility] 4.2.7.2.686 [place] [phone] [facility] [address] [place] 2022-02-19 2022-02-19 [facility] 1.2.978.381 [id number] Univers 00:00:00 00:00:00 Marcial HEALTH 350.1.13.10 it y of [facility] 4.2.7.2.686 Branden as VIKTOR?BLEA [phone] [address] MEDICAL OFFICE [facility] 2022-02-18 2022-02-18 Nurse PINKY Main 1.2.196.301 [id number] Univers 00:00:00 00:00:00 Triage Ludwin HUDSON 350.1.13.10 it y of HOSPITAL 4.2.7.2.686 Branden as [phone] [address] 2022-02-18 2022-02-18 Nurse PINKY Main 1.2.682.033 [id number] Univers 00:00:00 00:00:00 Triage Ludwin HUDSON 350.1.13.10 it y of HOSPITAL 4.2.7.2.686 Branden as [phone] [address] 2022-02-18 2022-02-18 Nurse PINKY Núñez 1.2.840.114 [id number] Univers 00:00:00 00:00:00 Triage Benjamin REIDY 350.1.13.10 ity of HOSPITAL 4.2.7.2.686 Branden as [id number] [address] 2022-02-17 2022-02-17 Outpatient ALEJANDRA [facility] [id number] [facility] 13:09:42 16:19:33 RANULFO vega of Medicin e 2022-02-17 2022-02-17 [facility]phone [facility] 1.2.906.367 [id number] Univers 00:00:00 00:00:00 Marcial HEALTH 350.1.13.10 it y of [facility] 4.2.7.2.686 Branden as VIKTOR?BLEA [phone] [address] MEDICAL OFFICE [facility] 2022-02-16 2022-02-16 Outpatient Kurtis GALINDO [facility] [id number] Univers 09:30:00 09:30:00 RADHA [facility] 2022-02-16 2022-02-16 Outpatient Kurtis GALINDO [facility] [id number] Univers 09:30:00 09:30:00 RADHA leigh [facility] 2022-02-16 2022-02-16 Outpatient Kurtis GALINDO [facility] [id number] Univers 09:30:00 09:30:00 [facility] 2022-02-09 2022-02-09 Outpatient ALEJANDRA WOLFE [facility] [id number] [id number] [facility] 08:27:50 12:25:31 RANULFO Winters e of Medicin e 2022-02-06 2022-02-06 Outpatient Kurtis GENTILE [facility] [id number] Univers 00:00:00 00:00:00 [facility] 2022-02-06 2022-02-06 Outpatient [facility] [id number] Univers 00:00:00 00:00:00 [facility] 2022-02-05 2022-02-05 Telephone [facility] 1.2.220.096 [id number] Univers 00:00:00 00:00:00 Marcial HEALTH 350.1.13.10 it y of [place] 4.2.7.2.686 Branden as VIKTOR?BLEA [id number] [address] MEDICAL OFFICE BUILDING 2022-02-04 2022-02-04 Telephone [facility] 1.2.840.114 [id number] Univers 00:00:00 00:00:00 Idania C HEALTH 350.1.13.10 i ty of [place].7.2.[place] [id number] [address] OFFICE BUILDING 2022-02-03 2022-02-03 Outpatient Kurtis GENTILE [facility] [id number] Univers 00:00:00 00:00:00 IDANIA [facility] 2022-02-03 2022-02-03 Outpatient Kurt[facility] [id number] Univers 00:00:00 00:00:00 [facility] 2022-01-30 2022-01-30 Telephone [facility] 1.2.840.114 [id number] Univers 00:00:00 00:00:00 Idania Marroquin HEALTH 350.1.13.10 i ty of [place] 4.2.7.2.686 [place] [phone] [address] OFFICE [facility] 2022-01-28 2022-01-28 Outpatient R [facility] [id number] Univers 11:30:00 12:02:51 IDANIA carroll [facility] 2022-01-28 2022-01-28 Office [facility] 1.2.816.441 [id number] Univers 11:30:00 12:02:51 Visit Idania Marroquin HEALTH 350.1.13.10 i ty of [place] 4.2.7.2.686 [place] [id number] [address] OFFICE [facility] 2022-01-19 2022-01-19 Telephone [facility] 1.2.106.932 [id number] Univers 00:00:00 00:00:00 Marcial Wickr 350.1.13.10 it y of [place] 4.2.7.2.686 Branden as VIKTOR?BLEA [phone] Ms carriepaul LIZ [address] [place] [address] OFFICE [facility] 2022-01-13 2022-01-13 Outpatient R RINKU [facility] [id number] Univers 13:30:00 14:14:35 MARCIAL carroll [facility] 2022-01-13 2022-01-13 Office [facility] 1.2.840.114 [id number] Univers 13:30:00 14:14:35 Visit Marcial Wickr 350.1.13.10 it y of [place] 4.2.7.2.686 Branden as VIKTOR?BLEA [id number] Ms clemente [address] OFFICE [facility] 2021-12-29 2021-12-29 Emergency X [facility] ERT [id number] Univers 14:55:00 16:47:00 FAUSTINO carroll [facility] 2021-12-29 2021-12-29 Emergency [facility] 1.2.840.114 [id number] Univers 14:55:00 16:47:00 Faustinoleigh ALMAZAN 350.1.13.10 i ty of [place].2.7.2.686 [place] [id number] [facility] [address] [place] 2021-12-29 2021-12-29 Telephone Mar [facility] 1.2.840.114 [id number] Univers 00:00:00 00:00:00 Wondiful A HEALTH 350.1.13.10 ity of [facility] 4.2.7.2.686 Branden as VIKTOR?BLEA [phone] Ms dical KNEY [address] MEDICAL OFFICE BUILDING 2021-12-22 2021-12-22 Orders Doctor PINKY 1.2.840.114 [id number] Univers 00:00:00 00:00:00 Only Unassigned, HUDSON 350.1.13.10 ity of [place] [facility] 4.2.7.2.686 Branden as [phone] [facility] [address] [place] 2021-12-10 2021-12-10 Orders Doctor PINKY 1.2.840.114 [id number] Univers 00:00:00 00:00:00 Only Unassigned, HUDSON 350.1.13.10 ity of [place] [facility] 4.2.7.2.686 Branden as [phone] [address] 2021-12-01 2021-12-01 Telephone Tanja [facility] 1.2.840.114 [id number] Univers 00:00:00 00:00:00 Parminder ALMAZAN 350.1.13.10 ity of [place].2.7.2.686 [place] [facility] [phone] Ms dicpaul NAL 085 [facility] 2021-11-19 2021-11-19 Outpatient R PARMINDER IRENE [facility] [id number] Univers 14:40:00 14:40:00 PARMINDER IRENE ity of [facility] 2021-11-13 2021-11-13 Engineering And Operations Director 2, Adc Lab [facility] 1.2.840.114 [id number] Univers 11:30:00 11:30:00 Visit Charafeddine, Nizar C [place] 350.1.1 3.10 ity of [place] 4.2.7.2.686 [place] [phone] Ms dical NAL 353 [facility] 2021-11-13 2021-11-13 Outpatient R HELEN [facility] [id number] Univers 11:30:00 10:14:46 EJOHN ity o f [facility] 2021-11-12 2021-11-12 Office [facility] 1.2.323.439 [id number] Univers 14:40:00 15:00:00 Visit [facility] Edgar [place] 350.1.13.10 ity of [facility] 4.2.7.2.[place] [phone] Ms dicpaul NAL 085 [facility] 2021-11-12 2021-11-12 Outpatient R ASHLEY IRENENJLinda [facility] [id number] Univers 14:40:00 14:40:00 ASHLEY IRENENJLinda ity [facility] 2021-11-06 2021-11-06 Kedar [facility] 1.2.840.114 [id number] Univers 00:00:00 00:00:00 Management Wondiful A HEALTH 350.1.13.10 ity of [facility] 4.2.7.2.686 Branden as VIKTOR?BLEA [phone] Ms carriepaul LANDONEY 044 [facility] OFFICE [facility] 2021-11-05 2021-11-05 Outpatient R [facility] [id number] Univers 17:03:51 23:59:00 WONDIFUL ity o f [facility] 2021-11-05 2021-11-05 [facility] 1.2.665.006 [id number] Univers 17:03:51 23:59:00 Encounter Wondiful A [place] 350.1.13.10 ity of [place].2.7.2.[place] [facility] [id number] [facility] [address] [place] 2021-11-05 2021-11-05 Kedar [facility] 1.2.840.114 [id number] Univers 00:00:00 00:00:00 Management Wondiful A HEALTH 350.1.13.10 ity of [place] 4.2.7.2.686 Branden as VIKTOR?BLEA [phone] Ms clemente LIZ [address] [place] [address] MEDICAL OFFICE [facility] 2021-11-04 2021-11-04 Engineering And Operations Director Anthony Borja Sleep Lab [facility] 1.2 .840.114 [id number] Univers 10:00:00 10:15:00 Visit Parminder Irene [place] 350.1.13. 10 ity of [facility] 4.2.7.2.686 [place] [id number] [address] 2021-11-04 2021-11-04 Outpatient R PARMINDER IRENE [facility] [id number] Univers 10:00:00 10:00:00 PARMINDER IRENE itleigh [facility] 2021-11-04 2021-11-04 Outpatient R ASHLEY IRENENJLinda [facility] [id number] Univers 10:00:00 10:00:00 PARMINDER IRENE itleigh [facility] 2021-10-29 2021-10-29 Case Mar [facility] 1.2.840.114 [id number] Univers 00:00:00 00:00:00 Management Wondiful A HEALTH 350.1.13.10 ity of [facility] 4.2.7.2.686 Branden as VIKTOR?BLEA [phone] Ms clemente LIZ [address] [place] [address] OFFICE [facility] 2021-10-23 2021-10-23 Telephone Mar [facility] 1.2.840.114 [id number] Univers 00:00:00 00:00:00 Wondiful A HEALTH 350.1.13.10 ity of [place] 4.2.7.2.686 Branden as VIKTOR?BLEA [id number] Ms clemente LIZ [address] [place] [address] OFFICE [facility] 2021-10-23 2021-10-23 Patient Doctor [facility] 1.2.840.114 [id number] Univers 00:00:00 00:00:00 Secure Msg Unassigned, HEALTH 350.1.13.10 ity of [place] 4.2.7.2.686 Branden as VIKTOR?BLEA [phone] [facility] [address] [place] MEDICAL OFFICE [facility] 2021-10-22 2021-10-22 Telephone Mar [facility] 1.2.840.114 [id number] Univers 00:00:00 00:00:00 Wondiful A HEALTH 350.1.13.10 ity of [place] 4.2.7.2.686 Branden as VIKTOR?BLEA [phone] [address] MEDICAL OFFICE [facility] 2021-10-21 2021-10-21 Engineering And Operations Director Lab, Ang - Db [facility] 1.2.840.1 14 [id number] Univers 12:45:00 13:00:00 Visit Cliff Manuelful A HEALTH 350.1.13.1 0 ity of [place] 4.2.7.2.686 Branden as VIKTOR?BLEA [id number] [facility] 353 [facility] OFFICE [facility] 2021-10-21 2021-10-21 Outpatient R MAR [facility] [id number] Univers 11:30:00 12:41:54 WONDIFUL ity o f [facility] 2021-10-21 2021-10-21 Office [facility] 1.2.840.114 [id number] Univers 11:30:00 12:41:54 Visit Wondiful A HEALTH 350.1.13.10 ity of [place] 4.2.7.2.686 Branden as VIKTOR?BLEA [phone] [address] OFFICE [facility] 2021-10-21 2021-10-21 Outpatient R MAR [facility] [id number] Univers 11:30:00 12:41:54 WONDIFUL ity o f [facility] 2021-10-21 2021-10-21 Orders Doctor PINKY 1.2.840.114 [id number] Univers 00:00:00 00:00:00 Only Unassigned, HUDSON 350.1.13.10 ity of [place] [facility] 4.2.7.2.686 Branden as [id number] [address] 2021-10-08 2021-10-08 Outpatient [facility] [id number] Univers 09:00:00 09:00:00 WONDIFUL ity o f [facility] 2021-09-23 2021-09-23 Emergency X [facility] ERT [id number] Univers 15:27:00 18:23:00 KELLY ity of [facility] 2021-09-23 2021-09-23 Emergency Smooth, [facility] 1.2.811.221 [id number] Univers 15:27:00 18:23:00 Kelly ALMAZAN 350.1.13.10 ity of [place] 4.2.7.2.686 [place] [phone] [facility] [address] [place] 2021-09-23 2021-09-23 Orders Doctor PINKY 1.2.840.114 [id number] Univers 00:00:00 00:00:00 Only Unassigned, HUDSON 350.1.13.10 ity of [facility] 4.2.7.2.686 Branden as [phone] [facility] [address] [place] 2021-08-19 2021-08-19 Outpatient Kurtis MANUEL [facility] [id number] Univers 13:30:00 13:30:00 WONDIFUL ity o f [facility] 2021-06-11 2021-06-11 Laboratory Only, Ang Db Test [facility] 1.2.8 40.114 [id number] Univers 11:33:26 11:43:26 Only Nicol Gonzáles [facility] 350.1.13.10 ity of [place] 4.2.7.2.686 Branden as Viktor?Blea [phone] Ms carrie[address] Medical Office Building 2021-06-11 2021-06-11 Outpatient Kurtis GONZÁLES [facility] [id number] Univers 11:15:00 11:15:00 NICOL ity [facility] 2021-01-15 2021-01-15 Outpatient Kurtis LANCASTER [facility] [id number] Univers 15:00:00 15:00:00 FRANCES ity [facility] 2020-12-18 2020-12-18 Outpatient [facility] [id number] Univers 15:00:00 15:00:00 ity [facility] 2020-10-01 2020-10-01 Emergency Zachary Mcnamara [facility] 1.2.840.114 [id number] Univers 15:38:00 17:19:00 Pamela Almazan 350.1.13.10 i ty of [place] 4.2.7.2.686 [facility] [phone] [address] 2020-10-01 2020-10-01 Emergency Zachary Mcnamara [place] 1.2.840.114 [id number] 15:38:00 17:19:00 Pamela [place] 350.1.13.10 [place] 4.2.7.2.686 [place] [id number] [facility] 2020-10-01 2020-10-01 Orders Doctor PINKY 1.2.840.114 [id number] Univers 00:00:00 00:00:00 Only Unassigned, HUDSON 350.1.13.10 ity of [place] [facility] 4.2.7.2.[address] [facility] [id number] [address] 2020-10-01 2020-10-01 Orders Doctor PINKY 1.2.840.114 [id number] 00:00:00 00:00:00 Only Unassigned, HUDSON 350.1.13.10 [place] [facility] 4.2.7.2.686 [id number] [facility] 2020-04-23 2020-07-03 Laboratory Only, Web Test [facility] 1.2.840. 114 [id number] Univers 09:22:46 08:51:45 Only Unknown, Attending Health 350.1.13.10 ity of [place] 4.2.7.2.686 [place] [facility] - [phone] [address] 2020-04-23 2020-07-03 Laboratory Only, Web [facility] 1.2.840.114 [id number] 09:22:46 08:51:45 Only Test Health 350.1.13.10 Specialty 4.2.7.2.686 Care - [id number] [place] [address] 2020-04-23 2020-04-23 Outpatient R [facility] [id number] Univers 09:30:00 09:30:00 ity of [facility] 2020-03-05 2020-03-05 Telephone Aris [facility] 1.2.840.114 [id number] Univers 00:00:00 00:00:00 [employer] 350.1.13.10 it y of [place] 4.2.7.2.686 Branden as Professio [phone] [facility] [address] [place] Office Building One 2020-03-05 2020-03-05 Telephone Julia Lasw 1.2.840.114 [id number] Univers 00:00:00 00:00:00 HUDSON 350.1.13.10 it y of HOSPITAL 4.2.7.2.686 Branden as [id number] [address] 2020-03-04 2020-03-04 Urgent Pob1, Acute Care Clinic [facility] 1. 2.840.114 [id number] Univers 15:43:04 16:06:56 Care Aris, [employer] 350.1.13.10 ity of [place] 4.2.7.2.686 Branden as Professio [phone] [address] Office [facility] One 2020-03-04 2020-03-04 Outpatient R [facility] [id number] Univers 15:40:00 15:40:00 ity of [facility] 2020-02-08 2020-02-08 Outpatient [facility] [id number] 2-2 [facility] 00:00:00 00:00:00 [id number] 2019-10-28 2019-10-29 Outpt Diag nullFlavo [facility] [id number] Memoria 22:20:00 05:59:00 Services r Outpatient 00 l Imaging [facility] 2019-10-28 2019-10-28 Outpatient COUCH, 2.16.840. 2.16.840.1. 3 [id number] 16:20:00 23:59:00 SHARON 1.807190. 918436.3.61 00 BEKA 3.615.30 5.30 Results Test Description Test Time Test Comments Results Result Comments Source CHEM PANEL 2022-07-17 08:15:00 Test Item Value Reference Range Interpretation Comme nts Creatinine Lvl (test code = Creatinine Lvl) 0.68 0.50-1.40 [id number] 08:15:00 Test Item Value Reference Range Interpretation Comments Sodium Lvl (test code = Sodium Lvl) 137 135-145 [place] [address]-10-07 08:15:00 Test Item Value Reference Range Interpretation Comments Potassium Lvl (test code = Potassium 4.0 3.5-5.1 Lvl) [place] 907522-10-07 08:15:00 Test Item Value Reference Range Interpretation Comments Chloride Lvl (test code = Chloride Lvl) 103 95-109 [place] [address]-10-07 08:15:00 Test Item Value Reference Range Interpretation Comments CO2 (test code = CO2) 27 24-32 [place] [address]-10-07 08:15:00 Test Item Value Reference Range Interpretation Comments Calcium Lvl (test code = Calcium Lvl) 8.4 8.5-10.5 [place] [address]-10-07 08:15:00 Test Item Value Reference Range Interpretation Comments AGAP (test code = AGAP) 11.0 10.0-20.0 [place] [address]-10-07 08:15:00 Test Item Value Reference Range Interpretation Comments eGFR (test code = eGFR) 100 [place] [address]-10-07 08:15:00 Test Item Value Reference Range Interpretation Comments Segs (test code = Segs) 71.0 45.0-75.0 [place] [address]-10-07 08:15:00 Test Item Value Reference Range Interpretation Comments Lymphocytes (test code = Lymphocytes) 13.8 20.0-40.0 [place] [address]-10-07 08:15:00 Test Item Value Reference Range Interpretation Comments Monocytes (test code = Monocytes) 13.2 2.0-12.0 [place] [address]-10-07 08:15:00 Test Item Value Reference Range Interpretation Comments Eosinophils (test code = 1.3 See_Comment [A utomated message] The Eosinophils) system which ge nerated this result tra nsmitted reference range : <=4.0. The reference r ariadna was not used to int erpret this result as normal/abnormal . [place] [address]-10-07 08:15:00 Test Item Value Reference Range Interpretation Comments Basophils (test code = 0.7 See_Comment [Aut omated message] The Basophils) system which ge nerated this result tra nsmitted reference range : <=1.0. The reference r ariadna was not used to int erpret this result as normal/abnormal . [place] [address]-10-07 08:15:00 Test Item Value Reference Range Interpretation Comments Neutrophils # (test code = Neutrophils 6.6 1.5-8.1 #) [place] 930212-10-07 08:15:00 Test Item Value Reference Range Interpretation Comments Lymphocytes # (test code = Lymphocytes 1.3 1.0-5.5 #) [place] [address]-10-07 08:15:00 Test Item Value Reference Range Interpretation Comments Monocytes # (test code 1.2 See_Comment [Aut omated message] The = Monocytes #) system which generated this result tra nsmitted reference range : <=0.8. The reference r ariadna was not used to int erpret this result as normal/abnormal . [place] [address]-10-07 08:15:00 Test Item Value Reference Range Interpretation Comments Eosinophils # (test code 0.1 See_Comment [A utomated message] The = Eosinophils #) system whic h generated this result tra nsmitted reference range : <=0.5. The reference r ariadna was not used to int erpret this result as normal/abnormal . [place] [address]-10-07 08:15:00 Test Item Value Reference Range Interpretation Comments Basophils # (test code 0.1 See_Comment [Aut omated message] The = Basophils #) system which generated this result tra nsmitted reference range : <=0.2. The reference r ariadna was not used to int erpret this result as normal/abnormal . [place] [address]-10-07 08:15:00 Test Item Value Reference Range Interpretation Comments WBC (test code = WBC) 9.3 3.7-10.4 [place] [address]-10-07 08:15:00 Test Item Value Reference Range Interpretation Comments RBC (test code = RBC) 3.17 4.20-5.40 [place] [address]-10-07 08:15:00 Test Item Value Reference Range Interpretation Comments Hgb (test code = Hgb) 9.3 12.0-16.0 [place] [address]-10-07 08:15:00 Test Item Value Reference Range Interpretation Comments Hct (test code = Hct) 28.3 36.0-48.0 [facility] CenterGkkfabxEUOPIKOSVA5963-88-44 08:15:00 Test Item Value Reference Range Interpretation Comments MCV (test code = MCV) 89.2 80.0-98.0 [facility] CenterJxasazwKWLDIZQMBK2403-94-27 08:15:00 Test Item Value Reference Range Interpretation Comments MCH (test code = MCH) 29.3 pg 27.0-31.0 [facility] HospitalWwgbsphCSMTRCXPDS7512-65-15 08:15:00 Test Item Value Reference Range Interpretation Comments MCHC (test code = MCHC) 32.9 32.0-36.0 [facility] HospitalGrrjvczASCLFVJLAR8130-27-78 08:15:00 Test Item Value Reference Range Interpretation Comments RDW (test code = RDW) 14.4 11.5-14.5 [facility] CenterQmrlsgkHFAXBOEUVR4352-54-20 08:15:00 Test Item Value Reference Range Interpretation Comments Platelet (test code = Platelet) 343 133-450 [facility] CenterPjpokrpGXODWQTWAS7309-48-05 08:15:00 Test Item Value Reference Range Interpretation Comments MPV (test code = MPV) 6.4 7.4-10.4 [facility] [employer] [id number] 08:15:00 Test Item Value Reference Range Interpretation Comments Glucose Lvl (test code = Glucose Lvl) 107 70-99 [facility] [employer] [id number] 08:15:00 Test Item Value Reference Range Interpretation Comments BUN (test code = BUN) 5 7-22 [facility]2022-10-06 15:24:00 Test Item Value Reference Range Interpretation Comments HS Troponin I 1 Hr (test code = HS 4 Troponin I 1 Hr) [facility] CenterMijn AutoCo[employer] [id number] 15:24:00 Test Item Value Reference Range Interpretation Comments HS Troponin I 0 to 1 Hour Delta (test -1 code = HS Troponin I 0 to 1 Hour Delta) [facility] CenterClassOwlENZZKOB2197-12-11 14:22:00 Test Item Value Reference Range Interpretation Comments HS Troponin I Baseline (test code = HS 5 Troponin I Baseline) [facility] HospitalWALTOPVDCOY8735-16-45 07:28:00 Test Item Value Reference Range Interpretation Comments Glucose Lvl (test code = Glucose Lvl) 103 70-99 [facility] [employer] [id number] 07:28:00 Test Item Value Reference Range Interpretation Comments BUN (test code = BUN) 9 7-22 [place] 907522-10-06 07:28:00 Test Item Value Reference Range Interpretation Comments Creatinine Lvl (test code = Creatinine 0.65 0.50-1.40 Lvl) [place] 907522-10-06 07:28:00 Test Item Value Reference Range Interpretation Comments Sodium Lvl (test code = Sodium Lvl) 133 135-145 [place] 907522-10-06 07:28:00 Test Item Value Reference Range Interpretation Comments Potassium Lvl (test code = Potassium 3.8 3.5-5.1 Lvl) [place] 907522-10-06 07:28:00 Test Item Value Reference Range Interpretation Comments Chloride Lvl (test code = Chloride Lvl) 102 95-109 [place] 907522-10-06 07:28:00 Test Item Value Reference Range Interpretation Comments CO2 (test code = CO2) 24 24-32 [place] 907522-10-06 07:28:00 Test Item Value Reference Range Interpretation Comments Calcium Lvl (test code = Calcium Lvl) 8.3 8.5-10.5 [place] 907522-10-06 07:28:00 Test Item Value Reference Range Interpretation Comments AGAP (test code = AGAP) 10.8 10.0-20.0 [place] 907522-10-06 07:28:00 Test Item Value Reference Range Interpretation Comments eGFR (test code = eGFR) 101 [id number] 07:28:00 Test Item Value Reference Range Interpretation Comments WBC (test code = WBC) 9.2 3.7-10.4 [place] 930212-10-06 07:28:00 Test Item Value Reference Range Interpretation Comments RBC (test code = RBC) 3.25 4.20-5.40 [place] 930212-10-06 07:28:00 Test Item Value Reference Range Interpretation Comments Hgb (test code = Hgb) 9.5 12.0-16.0 [place] 930212-10-06 07:28:00 Test Item Value Reference Range Interpretation Comments Hct (test code = Hct) 28.9 36.0-48.0 [place] 930212-10-06 07:28:00 Test Item Value Reference Range Interpretation Comments MCV (test code = MCV) 89.1 80.0-98.0 [place] 930212-10-06 07:28:00 Test Item Value Reference Range Interpretation Comments MCH (test code = MCH) 29.3 pg 27.0-31.0 [place] [address]-10-06 07:28:00 Test Item Value Reference Range Interpretation Comments MCHC (test code = MCHC) 32.8 32.0-36.0 [place] [address]-10-06 07:28:00 Test Item Value Reference Range Interpretation Comments RDW (test code = RDW) 14.4 11.5-14.5 [place] 930212-10-06 07:28:00 Test Item Value Reference Range Interpretation Comments Platelet (test code = Platelet) 319 133-450 [place] 930212-10-06 07:28:00 Test Item Value Reference Range Interpretation Comments MPV (test code = MPV) 6.8 7.4-10.4 [place] 930212-10-06 07:28:00 Test Item Value Reference Range Interpretation Comments Neutrophils # (test code = Neutrophils 6.3 1.5-8.1 #) [place] [address]-10-06 07:28:00 Test Item Value Reference Range Interpretation Comments Lymphocytes # (test code = Lymphocytes 1.0 1.0-5.5 #) [place] 930212-10-06 07:28:00 Test Item Value Reference Range Interpretation Comments Monocytes # (test code 1.9 See_Comment [Aut omated message] The = Monocytes #) system which generated this result tra nsmitted reference range : <=0.8. The reference r ariadna was not used to int erpret this result as normal/abnormal . [place] 930212-10-06 07:28:00 Test Item Value Reference Range Interpretation Comments Segs (test code = Segs) 67.0 45.0-75.0 [place] [address]-10-06 07:28:00 Test Item Value Reference Range Interpretation Comments Bands (test code = 1.0 See_Comment [Automat ed message] The Bands) system which ge nerated this result transmit rhea reference range : <=11.0. The reference r ariadna was not used to interpr et this result as jeannie l/abnormal. [place] 930212-10-06 07:28:00 Test Item Value Reference Range Interpretation Comments Lymphocytes (test code = Lymphocytes) 11.0 20.0-40.0 [place] [address]-10-06 07:28:00 Test Item Value Reference Range Interpretation Comments Monocytes (test code = Monocytes) 21.0 2.0-12.0 [place] 930212-10-06 07:28:00 Test Item Value Reference Range Interpretation Comments Atypical Lymphs (test code = Atypical 0.0 Lymphs) [place] [address]-10-06 07:28:00 Test Item Value Reference Range Interpretation Comments RBC Morph (test code = Normal (07/16/22 2:28 RBC Morph) AM) [place] [address]-10-06 07:28:00 Test Item Value Reference Range Interpretation Comments Plt Morph (test code = Clumped (07/16/22 2:28 Plt Morph) AM) [facility]2022-10-05 05:21:00 Test Item Value Reference Range Interpretation Comments Glucose Lvl (test code = Glucose Lvl) 118 70-99 [facility]2022-10-05 05:21:00 Test Item Value Reference Range Interpretation Comments BUN (test code = BUN) 15 7-22 [place] 907522-10-05 05:21:00 Test Item Value Reference Range Interpretation Comments Creatinine Lvl (test code = Creatinine 0.88 0.50-1.40 Lvl) [facility]2022-10-05 05:21:00 Test Item Value Reference Range Interpretation Comments Sodium Lvl (test code = Sodium Lvl) 130 135-145 [facility]2022-10-05 05:21:00 Test Item Value Reference Range Interpretation Comments Potassium Lvl (test code = Potassium 3.9 3.5-5.1 Lvl) [facility]2022-10-05 05:21:00 Test Item Value Reference Range Interpretation Comments Chloride Lvl (test code = Chloride Lvl) 100 95-109 [facility]2022-10-05 05:21:00 Test Item Value Reference Range Interpretation Comments CO2 (test code = CO2) 22 24-32 [facility]2022-10-05 05:21:00 Test Item Value Reference Range Interpretation Comments Calcium Lvl (test code = Calcium Lvl) 8.4 8.5-10.5 [facility]2022-10-05 05:21:00 Test Item Value Reference Range Interpretation Comments AGAP (test code = AGAP) 11.9 10.0-20.0 [facility]2022-10-05 05:21:00 Test Item Value Reference Range Interpretation Comments eGFR (test code = eGFR) 76 [facility]TycupseDNLKPOXVGE2743-62-21 05:21:00 Test Item Value Reference Range Interpretation Comments WBC (test code = WBC) 10.8 3.7-10.4 [facility] AustinAtkggzyTLGNDAUIYZ7303-65-20 05:21:00 Test Item Value Reference Range Interpretation Comments RBC (test code = RBC) 3.50 4.20-5.40 [facility] AustinJuuhvcvVNNTKDNVKV0833-74-29 05:21:00 Test Item Value Reference Range Interpretation Comments Hgb (test code = Hgb) 10.4 12.0-16.0 [facility] AustinWmhidtcSOBEFTMKNT7574-14-11 05:21:00 Test Item Value Reference Range Interpretation Comments Hct (test code = Hct) 30.7 36.0-48.0 [facility] AustinLvaopjzINPYCBMVOJ7632-58-34 05:21:00 Test Item Value Reference Range Interpretation Comments MCV (test code = MCV) 87.7 80.0-98.0 [facility] AustinMqyzybgANRSCCABGG6644-59-51 05:21:00 Test Item Value Reference Range Interpretation Comments MCH (test code = MCH) 29.7 pg 27.0-31.0 [facility] AustinDyxmqwfRBJDDSEVFE9902-29-14 05:21:00 Test Item Value Reference Range Interpretation Comments MCHC (test code = MCHC) 33.9 32.0-36.0 [facility] AustinKgyltrpGFNNONOWOU8587-40-15 05:21:00 Test Item Value Reference Range Interpretation Comments RDW (test code = RDW) 14.6 11.5-14.5 [facility] AustinDxystaaLIVERYTTGJ2526-49-87 05:21:00 Test Item Value Reference Range Interpretation Comments Platelet (test code = Platelet) 360 133-450 [facility] AustinRgkxtxgIQPAXFRPUH5005-75-83 05:21:00 Test Item Value Reference Range Interpretation Comments MPV (test code = MPV) 6.7 7.4-10.4 [facility] AustinCasvepeIYOZOVBZRQ0797-86-21 05:21:00 Test Item Value Reference Range Interpretation Comments Segs (test code = Segs) 77.3 45.0-75.0 [facility] AustinXixbozbCMWUPMYBGG2816-72-17 05:21:00 Test Item Value Reference Range Interpretation Comments Lymphocytes (test code = Lymphocytes) 10.0 20.0-40.0 [facility] AustinNghkohvMBVHCPIYSL6552-91-49 05:21:00 Test Item Value Reference Range Interpretation Comments Monocytes (test code = Monocytes) 12.5 2.0-12.0 [facility] AustinCjcyiilAEWGDGMVTU1507-88-35 05:21:00 Test Item Value Reference Range Interpretation Comments Eosinophils (test code = 0.1 See_Comment [A utomated message] The Eosinophils) system which ge nerated this result tra nsmitted reference range : <=4.0. The reference r ariadna was not used to int erpret this result as normal/abnormal . [facility] AustinHtgqdwpQNENTGMQUE7516-20-79 05:21:00 Test Item Value Reference Range Interpretation Comments Basophils (test code = 0.1 See_Comment [Aut omated message] The Basophils) system which ge nerated this result tra nsmitted reference range : <=1.0. The reference r ariadna was not used to int erpret this result as normal/abnormal . [facility] AustinBxduqfbYSRLESIKTG4904-55-99 05:21:00 Test Item Value Reference Range Interpretation Comments Neutrophils # (test code = Neutrophils 8.4 1.5-8.1 #) [facility] AustinWayczywOITGCOJRZV3907-30-39 05:21:00 Test Item Value Reference Range Interpretation Comments Lymphocytes # (test code = Lymphocytes 1.1 1.0-5.5 #) [facility] AustinEquvtmzLRCNJWBCZP0699-78-48 05:21:00 Test Item Value Reference Range Interpretation Comments Monocytes # (test code 1.4 See_Comment [Aut omated message] The = Monocytes #) system which generated this result tra nsmitted reference range : <=0.8. The reference r ariadna was not used to int erpret this result as normal/abnormal . [facility] CenterQoytbqyJSHPOFWDRR3893-29-47 12:21:00 Test Item Value Reference Range Interpretation Comments Coronavirus (COVID-19) Not Detected (07/13/22 CATALINA (test code = 7:21 AM) Coronavirus (COVID-19) CATALINA) [facility] CenterBACTERIAL - [id number] 13:49:00 Test Item Value Reference Range Interpretation Comments MRSA by PCR (test Negative (07/02/22 8:49 code = MRSA by PCR) AM) [facility] CenterQfktylvPIVJDSBMRG2985-31-15 13:49:00 Test Item Value Reference Range Interpretation Comments PT (test code = PT) 13.0 s 12.0-14.7 [facility] CenterIxhtjtnDSEGSDFLCM4060-95-00 13:49:00 Test Item Value Reference Range Interpretation Comments INR (test code = INR) 0.99 1 0.85-1.17 [facility] CenterNlakjnbRQJACYXOUN1803-95-86 13:49:00 Test Item Value Reference Range Interpretation Comments PTT (test code = PTT) 35.7 s 22.9-35.8 [facility] AustinGwwwhspHDIAVGEKQD3479-85-81 13:49:00 Test Item Value Reference Range Interpretation Comments Eosinophils (test code = 3.6 See_Comment [A utomated message] The Eosinophils) system which ge nerated this result tra nsmitted reference range : <=4.0. The reference r ariadna was not used to int erpret this result as normal/abnormal . [facility] AustinOpymclxQSNRWWYXFV5091-62-40 13:49:00 Test Item Value Reference Range Interpretation Comments Basophils (test code = 0.6 See_Comment [Aut omated message] The Basophils) system which ge nerated this result tra nsmitted reference range : <=1.0. The reference r ariadna was not used to int erpret this result as normal/abnormal . [facility] CenterIrbxowoCIMKYKSTGB3221-91-54 13:49:00 Test Item Value Reference Range Interpretation Comments Eosinophils # (test code 0.2 See_Comment [A utomated message] The = Eosinophils #) system whic h generated this result tra nsmitted reference range : <=0.5. The reference r ariadna was not used to int erpret this result as normal/abnormal . [facility] YOLMVPUPP5989-16-55 13:49:00 Test Item Value Reference Range Interpretation Comments Hgb A1C (test code = Hgb A1C) 6.3 [facility] CenterUR[facility] AND [id number] 13:49:00 Test Item Value Reference Range Interpretation Comments UA Color (test code = Yellow *NA*(07/02/22 UA Color) 8:49 AM) [facility] AND [id number] 13:49:00 Test Item Value Reference Range Interpretation Comments UA Turbidity (test code = Clear (07/02/22 8:49 UA Turbidity) AM) [facility] AND [id number] 13:49:00 Test Item Value Reference Range Interpretation Comments UA Spec Grav (test code = UA Spec 1.010 1 Grav) [facility] AND [id number] 13:49:00 Test Item Value Reference Range Interpretation Comments UA pH (test code = UA pH) 6.0 1 5.0-8.0 [facility] AND [id number] 13:49:00 Test Item Value Reference Range Interpretation Comments UA Protein (test code = UA Negative mg/dL Protein) [facility] AND [id number] 13:49:00 Test Item Value Reference Range Interpretation Comments UA Glucose (test code = UA Negative mg/dL Glucose) [facility] AND [id number] 13:49:00 Test Item Value Reference Range Interpretation Comments UA Ketones (test code = UA Negative mg/dL Ketones) [facility] AND [id number] 13:49:00 Test Item Value Reference Range Interpretation Comments UA Bili (test code = Negative *NA*(07/02/22 UA Bili) 8:49 AM) [facility] AND [id number] 13:49:00 Test Item Value Reference Range Interpretation Comments UA Blood (test code = Negative (07/02/22 8:49 UA Blood) AM) [facility] AND [id number] 13:49:00 Test Item Value Reference Range Interpretation Comments UA Urobilinogen (test code = UA 0.2 0.1-1.0 Urobilinogen) [facility] AND [id number] 13:49:00 Test Item Value Reference Range Interpretation Comments UA Nitrite (test code Negative (07/02/22 8:49 = UA Nitrite) AM) [facility] AND [id number] 13:49:00 Test Item Value Reference Range Interpretation Comments UA Leuk Est (test Negative (07/02/22 8:49 code = UA Leuk Est) AM) [facility] AND [id number] 13:49:00 Test Item Value Reference Range Interpretation Comments UA Sq Epi (test code = UA Sq Occasional /LPF Epi) [facility] AND [id number] 13:49:00 Test Item Value Reference Range Interpretation Comments UA WBC (test code = 4 See_Comment [Automa rhea message] The UA WBC) system which ge nerated this result transmit rhea reference range : <=5. The reference range was not used to interpr et this result as jeannie l/abnormal. [facility] Sar[facility]ia AND [id number] 13:49:00 Test Item Value Reference Range Interpretation Comments UA RBC (test code = no gt See_Comment [Automa rhea message] The UA RBC) system which ge nerated this result transmit rhea reference range : <=2. The reference range was not used to interpr et this result as jeannie l/abnormal. [facility] centerCulture: [id number] 13:49:00 Test Item Value Reference Range Interpretation Comments Culture: Urine (test <10,000 CFU/mL Skin code = Culture: Urine) [facility], SPINE, LUMBAR, WITHOUT [id number] 22:22:00Unlisted Reason for Exam - Click Yes and Enter Reason Below->No [facility] JOHANNY NGUYEN AUDRAMATT : 1965 Sex: FFINAL REPORT EXAM: MR, SPINE, LUMBAR, WITHOUT CONTRAST INDICATION: Back pain or radiculopathy, prior surgery, new symptoms TECHNIQUE: Sagittal T1-, T2-, and T2-w fat-saturated, and axial T1- and T2-w images of the lumbar spine. COMPARISON: None. FINDINGS:Spine Numbering: For purposes of this dictation, it is assumed that there are 5 pcp-dlr-uermpab, lumbar-type vertebrae, and the most caudal fully segmented lumbar vertebra is labeled L5. Alignment: Slight leftward convex curvaturecentered at L3. Vertebral Bodies: Normal in height. [...] ligamentum flavum thickening. No spinal canal or foraminalstenosis. L4-L5: Mild bilateral facet arthropathy and ligamentum flavum thickening. No spinal canal or foraminal stenosis. L5-S1: Postsurgical level. Mild bilateral facet arthropathy. No spinal canal or foraminal stenosis. IMPRESSION: Status post L5-S1 dorsal decompression and modest multilevel degenerative changes, as described. No significant spinal canal or foraminal stenosis. No acute abnormality. Disc bulge at L1-L2 with annular fissure. Signed: Brian Blackwood MDReport Verified Date/Time: 02/20/2022 22:22:11 US, [id number] 14:13:00Reason for Exam:->HX OF PARTIAL HYPROIDECTOYFINAL REPORT Thyroid Ultrasound History: Partial thyroidectomy Comparison: noneFindings:The right thyroid lobe appears diminished in size, probably representing changes related topartial thyroidectomy given the clinical history. A 4 mm cyst is seen within the residual right thyroid lobe. A 3 mm cyst is seen within the inferior left thyroid lobe. There is no concerning thyroid nodule on this examination. Right thyroid lobe measures 1.7 x 0.7 x 0.9 cm. Left thyroid lobe measures2.7 x 0.6 x 0.8 cm. Thyroid isthmus measures 2.9 mm in thickness. Impression:1. Diminutive appearance of the right thyroid lobe, which could be related to previous partial thyroidectomy given the clinical history.2. Subcentimeter cysts within both thyroid lobes. There is no concerning thyroid nodule on this examination. Signed: Eduardo Prince MDReport Verified Date/Time: 02/08/2020 14:13:43 Reading Location: [facility] Diagnostic Imaging Reading Room - [place] [address] BLOOD [id number] 00:00:00 Test Item Value Reference Range Interpretation Comments CULTURE (BEAKER) (test No growth in 5 days code = 1095) BLOOD [id number] 00:00:00 Test Item Value Reference Range Interpretation Comments CULTURE (BEAKER) (test No growth in 5 days code = 1095) BASIC METABOLIC [id number] 11:06:00 Test Item Value Reference Range Interpretation [...] TO CALCULA TE ESTIMATED GFR. BASIC METABOLIC [id number] 07:36:00 Test Item Value Reference Range Interpretation [...] TO CALCULA TE ESTIMATED GFR. BASIC METABOLIC [id number] 19:50:00 Test Item Value Reference Range Interpretation [...] TO CALCULA TE ESTIMATED GFR. BASIC METABOLIC [id number] 08:59:00 Test Item Value Reference Range Interpretation [...] TO CALCULA TE ESTIMATED GFR. BASIC METABOLIC [id number] 01:18:00 Test Item Value Reference Range Interpretation [...] TO CALCULA TE ESTIMATED GFR. BASIC METABOLIC [id number] 16:32:00 Test Item Value Reference Range Interpretation [...] TO CALCULA TE ESTIMATED GFR. U/S, ABDOMINAL, [id number] 14:54:00Abdomen limited area? Add comment if clarification [...] Petersort Verified Date/Time: 04/05/2018 14:54:01 Reading Location: [address] Ultrasound Reading Room HEPATIC FUNCTION [id number] 14:03:00 Test Item Value Reference Range Interpretation Comments TOTAL PROTEIN (JESSY) (test code = 6.9 gm/dL 6.0-8.3 770) [...] = 21 U/L 6-55 347) BASIC METABOLIC [id number] 09:16:00 Test Item Value Reference Range Interpretation [...] ESTIMATED GFR. CBC W/PLT COUNT & AUTO [id number] 08:44:00 Test Item Value Reference Range Interpretation [...] (BEAKER) (test code = 2801) BASIC METABOLIC [id number] 01:06:00 Test Item Value Reference Range Interpretation [...] m DATA TO CALCULA TE ESTIMATED GFR. [id number] 18:02:00 Test Item Value Reference Range Interpretation Comments AMMONIA (BEAKER) (test code = 348) 35 mol/L 18-72 BASIC METABOLIC [id number] 17:31:00 Test Item Value Reference Range Interpretation [...] TO CALCULA TE ESTIMATED GFR. BASIC METABOLIC [id number] 09:29:00 Test Item Value Reference Range Interpretation [...] TO CALCULA TE ESTIMATED GFR. BLOOD GAS, [id number] 05:19:00 Test Item Value Reference Range Interpretation [...] C (test code = 1818) BASIC METABOLIC [id number] 03:52:00 Test Item Value Reference Range Interpretation [...] m DATA TO CALCULA TE ESTIMATED GFR. [id number] 03:48:00 Test Item Value Reference Range Interpretation Comments PHOSPHORUS (BEAKER) (test code = 3.6 mg/dL 2.3-4.7 604) [id number] 03:48:00 Test Item Value Reference Range Interpretation Comments MAGNESIUM (BEAKER) (test code = 2.1 mg/dL 1.6-2.6 627) LACTIC ACID, VENOUS, WHOLE [id number] 03:44:00 Test Item Value Reference Range Interpretation [...] WBC 0-0 (BEAKER) (test code = 413) [id number] 02:06:00 Test Item Value Reference Range Interpretation Comments CORTISOL, TOTAL (BEAKER) (test 17.8 ug/dL 3.7-19.4 code = 2755) TSH/FREE T4 IF [id number] 02:06:00 Test Item Value Reference Range Interpretation Comments THYROID STIMULATING HORMONE 1.09 uIU/mL 0.35-4.94 (BEAKER) (test code = 772) HIV-1 ANTIGEN WITH HIV-1/2 [id number] 00:06:00 Test Item Value Reference Range Interpretation Comments HIV-1 ANTIGEN WITH HIV 1\\T\\2 Nonreactive Nonreactive ANTIBODY (2) (BEAKER) (test code = 2586) BASIC METABOLIC [id number] 23:30:00 Test Item Value Reference Range Interpretation [...] ESTIMATED GFR. RAD, CHEST, 1 VIEW, NON [id number] 21:34:00Reason for exam:->ALTERED MENTAL STATUSReason for exam:->NEUROLOGIC [...] evidence of an acute osseous abnormality. Signed: Kenton Miranda MDReport Verified Date/Time: 04/03/2018 21:34:48 Reading Location: [address] Reading Room OSMOLALITY, [id number] 21:10:00 Test Item Value Reference Range Interpretation Comments OSMOLALITY, SERUM (BEAKER) (test 236 mOsm/kg 275-295 L code = 615) RAPID DRUG SCREEN, [id number] 20:47:00 Test Item Value Reference Range Interpretation [...] situations. Chain of custody not maintained. Some trde-uvi-bxwseab medications, as well as adulterants, may cause inaccurate results. Clinical correlation should be applied. A more comprehensive drug screen or confirmation of a detected drug may be performed upon request. [id number] 20:43:00 Test Item Value Reference Range Interpretation Comments PHOSPHORUS (BEAKER) (test code = 1.8 mg/dL 2.3-4.7 L 604) HEPATIC FUNCTION [id number] 20:43:00 Test Item Value Reference Range Interpretation [...] (test code = 22 U/L 6-55 347) [id number] 20:43:00 Test Item Value Reference Range Interpretation Comments LIPASE (BEAKER) (test code = 749) 21 U/L 8-78 CREATININE, RANDOM [id number] 20:40:00 Test Item Value Reference Range Interpretation Comments CREATININE URINE (BEAKER) (test 11.7 mg/dL code = 375) Reference Range: No NormalsSODIUM, RANDOM [id number] 20:40:00 Test Item Value Reference Range Interpretation Comments SODIUM URINE (BEAKER) (test code = 60 meq/L 243) Reference Range: No NormalsOSMOLALITY, [id number] 20:40:00 Test Item Value Reference Range Interpretation Comments OSMOLALITY URINE (BEAKER) (test 169 mOsm/kg 40-1400 code = 614) [id number] 20:37:00 Test Item Value Reference Range Interpretation Comments ETHANOL (BEAKER) (test code = 400) < mg/dL <=10 [id number] 20:35:00 Test Item Value Reference Range Interpretation Comments AMMONIA (BEAKER) (test code = 348) 33 mol/L 18-72 MR, MRA, BRAIN, WITHOUT [id number] 19:42:00FINAL REPORT MRA head and neck without contrast. CLINICAL HISTORY: Stroke. ARVIN RISON: None. TECHNIQUE: Two- and three-dimensional ppts-xl-dgmdxx MRA images of the intra- and extracranial [...] right common carotid artery (image 1). MRA curyung of [place]: There is no vessel occlusion, [...] Dr Prater of neurology was notified at eliazar roximately 7:40 PM on 04/03/2018. Signed: Leela Pinaort Verified Date/Time: 04/03/2018 19:42:20 Reading Location: [address] Transitional Reading Room MR, MRA, NECK, WITHOUT IV [id number] 19:42:00FINAL REPORT MRA head and neck without contrast. CLINICAL HISTORY: Stroke. COMPARISON: None. TECHNIQUE: Two- and three-dimensional ghxo-bd-tjnifz MRA images of the intra- and extracranial [...] right common carotid artery (image 1). MRA cur[place]ung of [place]: There is no vessel occlusion, [...] approximately 7:40 PM on 04/03/2018. Signed: Leela Pinaort Verified Date/Time: 04/03/2018 19:42:20 Reading Location: [address] Transitional Reading Room CREATINE KINASE (CK), TOTAL AND [id number] 19:36:00 Test Item Value Reference Range Interpretation Comments CREATINE KINASE TOTAL (BEAKER) 103 U/L 29-200 (test code = 380) CREATINE KINASE-MB (BEAKER) (test 2.5 ng/mL 0.0-6.6 code = 750) CREATINE KINASE-MB INDEX (BEAKER) 2.4 % (test code = 395) CK-MB Reference Range:<6.7 Normal6.7-10.0 Borderline>10.0 AbnormalTROPONIN [id number] 19:36:00 Test Item Value Reference Range Interpretation [...] neurological disease, and persistent tachyarrhythmia.MR, BRAIN, WITHOUT [id number] 19:34:00FINAL REPORT Exam: MRI brain without contrast. [...] intracranial hemorrhage or mass effect. Signed: Leela Pina MDReport Verified Date/Time: 04/03/2018 19:34:38 Reading Location: [address] Transitional Reading Room B-TYPE NATRIURETIC FACTOR (BNP)2018-04-03 19:33:00 Test Item Value Reference Range Interpretation Comments B-TYPE NATRIURETIC PEPTIDE (BEAKER) 90 pg/mL 0-100 (test code = 700) URINALYSIS W/ [id number] 18:43:00 Test Item Value Reference Range Interpretation [...] 520) SOURCE(BEAKER) (test code = Urine, [place] 5343) BASIC METABOLIC [id number] 18:32:00 Test Item Value Reference Range Interpretation [...] m DATA TO CALCULA TE ESTIMATED GFR. [id number] 18:28:00 Test Item Value Reference Range Interpretation Comments MAGNESIUM (BEAKER) (test code = 1.7 mg/dL 1.6-2.6 627) [id number] 18:02:00 Test Item Value Reference Range Interpretation [...] mechanical heart valves.CBC W/PLT COUNT & AUTO [id number] 17:54:00 Test Item Value Reference Range Interpretation [...] PERCENT (BEAKER) (test code = 2801) POCT-GLUCOSE [id number] 17:49:00 Test Item Value Reference Range Interpretation Comments POC-GLUCOSE METER 100 mg/dL 70-[address] [facility] [address] ([facility]) (test code = [place] 1538) [address] CT, BRAIN/STROKE [id number] 17:45:00Reason for exam:->stroke protocolIs the patient ?->NoWhat [...] evaluationif clinically warranted. Results discussed with Dr. Roque at 1740 hours. Signed: Kenton Miranda Verified Date/Time: 04/03/2018 17:45:48 Reading Location: [address] Reading Room
--- NOTE | 2022-08-02 00:18 | ER ---
Nurse's Notes [facility] Name: Lizbet Solares Age: 57 yrs Sex: Female : 1965 Arrival Date: 08/01/2022 Time: 22:32 Bed 14 Private MD: Diagnosis: Pain in left lower leg Presentation: 08/01 22:39 Chief complaint: Left calf pain x 1 hour. Pt is 2 weeks s/p left hip replacement. hb Coronavirus screen: At this time, the client does not indicate any symptoms associated with coronavirus-19. Ebola Screen: No symptoms or risks identified at this time. Initial Sepsis Screen: Does the patient meet any 2 criteria? No. Patient's initial sepsis screen is negative. Does the patient have a suspected source of infection? No. Patient's initial sepsis screen is negative. Risk Assessment: Do you want to hurt yourself or someone else? Patient reports no desire to harm self or others. Onset of symptoms was August 01, 2022. 22:39 Method Of Arrival: Ambulatory hb 22:39 Acuity: NAFISA 3 hb Triage Assessment: 22:50 General: Appears in no apparent distress. Behavior is appropriate for age. ke1 22:50 Pain: Complains of pain in lateral aspect of left calf Pain currently is 4 out of 10 on ke1 a pain scale. at worst was 4 out of 10 on a pain scale. level that patient reports is acceptable is 4 out of 10 on a pain scale. Historical: - Allergies: 22:41 Dilaudid; hb - PMHx: 22:41 Anxiety; chronic back pain; Depression; Hypertension; Hypothyroidism; hb - PSHx: 22:41 bilateral heels; decompression of vertebrae; partial thyroidectomy; hb - Immunization history:: Adult Immunizations up to date. - Social history:: Smoking status: Patient denies any tobacco usage or history of. Screenin:10 Abuse screen: Denies threats or abuse. Nutritional screening: No deficits noted. ke1 Tuberculosis screening: No symptoms or risk factors identified. Fall Risk. Vital Signs: 22:39 BP 126 / 72; Pulse 74; Resp 16; Temp 98.3; Pulse Ox 96% on R/A; Weight 95.25 kg; Height hb 5 ft. 5 in. (165.10 cm); Pain 5/10; 08/02 00:26 BP 128 / 76; Pulse 70; Resp 19; Temp 98.2; Pulse Ox 100% on R/A; ke1 08/01 22:39 Body Mass Index 34.95 (95.25 kg, 165.10 cm) ED Course: 08/01 22:32 Patient arrived in ED. ja2 22:36 Ludwin Calvert PA is PHCP. cp 22:36 Ludwin Royal MD is Attending Physician. cp 22:37 Pricilla Berg, EVER is Primary Nurse. ke1 22:40 Triage completed. hb 22:41 Arm band placed on. hb 23:13 Call light in reach. Side rails up X 1. Side rails up X2. ke1 23:43 US Extremity Venous W Compression [place] In Process Unspecified. EDMS 08/02 00:07 No provider procedures requiring assistance completed. Patient did not have IV access ke1 during this emergency room visit. Administered Medications: No medications were administered Medication: 00:26 VIS not applicable for this client. ke1 Outcome: 00:17 Discharge ordered by . cp 00:26 Discharged to home ambulatory. ke1 00:26 Condition: good 00:26 Discharge instructions given to patient. 00:27 Patient left the ED. ke1 Signatures: Dispatcher [employer] EDKY Ludwin Calvert PA PA cp Baxter, Heather, EVER RN Diane Zhou [facility] Pricilla Berg, EVER RN ke1
--- NOTE | 2022-08-02 00:18 | EDPHYS ---
Physician Documentation [facility] Name: Lizbet Solares Age: 57 yrs Sex: Female : 1965 Arrival Date: 08/01/2022 Time: 22:32 Bed 14 Private MD: ED Physician Ludwin Royal HPI: 08/01 23:05 This 57 yrs old Female presents to ER via Ambulatory with complaints of Possible Blood cp Clot in Leg. 23:05 The patient presents with pain, that is acute. cp 23:05 The complaints affect the lateral aspect of left calf. Onset: The symptoms/episode cp began/occurred today. Associated signs and symptoms: The patient has no apparent associated signs or symptoms. 23:05 Patient presents to ED with complaints pain and noticed knot on lateral side of left cp lower leg today. Patient reports left hip replacement surgery 2 weeks ago. Historical: - Allergies: 22:41 Dilaudid; hb - PMHx: 22:41 Anxiety; chronic back pain; Depression; Hypertension; Hypothyroidism; hb - PSHx: 22:41 bilateral heels; decompression of vertebrae; partial thyroidectomy; hb - Immunization history:: Adult Immunizations up to date. - Social history:: Smoking status: Patient denies any tobacco usage or history of. ROS: 23:10 MS/extremity: Positive for pain, tenderness, of the lateral aspect of left calf, cp Negative for injury or acute deformity, decreased range of motion, paresthesias. 23:10 Constitutional: Negative for body aches, chills, fever, poor PO intake. cp 23:10 Respiratory: Negative for cough, shortness of breath, wheezing. 23:10 Cardiovascular: Negative for chest pain. cp 23:10 Skin: Negative for rash. cp 23:10 Neuro: Negative for altered mental status, headache, syncope, weakness. 23:10 All other systems are negative. Exam: 23:15 Constitutional: The patient appears in no acute distress, alert, awake, cp non-diaphoretic, non-toxic, well developed, well nourished. 23:15 Head/Face: Normocephalic, atraumatic. cp 23:15 Eyes: Periorbital structures: appear normal, Conjunctiva: normal, no exudate, no cp injection, Lids and lashes: appear normal, bilaterally. 23:15 Chest/axilla: Inspection: normal. 23:15 Cardiovascular: Rate: normal. 23:15 Respiratory: the patient does not display signs of respiratory distress, Respirations: cp normal, no use of accessory muscles, no retractions, labored breathing, is not present, Breath sounds: are clear throughout, no decreased breath sounds, no stridor, no wheezing. 23:15 Abdomen/GI: Inspection: abdomen appears normal, Palpation: abdomen is soft and non-tender, in all quadrants. 23:15 Musculoskeletal/extremity: Extremities: noted in the left leg: surgical incision lateral left hip appears w/o no signs of infection, mild tenderness noted lateral left lower leg with no swelling and/or redness noted. Vital Signs: 22:39 BP 126 / 72; Pulse 74; Resp 16; Temp 98.3; Pulse Ox 96% on R/A; Weight 95.25 kg; Height hb 5 ft. 5 in. (165.10 cm); Pain /; 08/02 00:26 BP 128 / 76; Pulse 70; Resp 19; Temp 98.2; Pulse Ox 100% on R/A; ke1 08/01 22:39 Body Mass Index 34.95 (95.25 kg, 165.10 cm) hb MDM: 08/01 22:37 Patient medically screened. lena 23:20 Differential diagnosis: DVT, cellulitis, abscess, pulmonary embolism. cp 08/02 00:17 Data reviewed: vital signs, nurses notes, radiologic studies, ultrasound. cp 00:17 Counseling: I had a detailed discussion with the patient and/or guardian regarding: the cp historical points, exam findings, and any diagnostic results supporting the discharge/admit diagnosis, radiology results, to return to the emergency department if symptoms worsen or persist or if there are any questions or concerns that arise at home. Response to treatment: the patient's symptoms have mildly improved after treatment, and as a result, I will discharge patient. 08/01 23:00 Order name: US Extremity Venous W Compression [place] cp Administered Medications: No medications were administered Disposition Summary: 08/02/22 00:17 Discharge Ordered Location: Home cp Problem: new cp Symptoms: have improved cp Condition: Stable cp Diagnosis - Pain in left lower leg cp Followup: cp - With: Private Physician - When: 2 - 3 days - Reason: Worsening of condition Discharge Instructions: - Discharge Summary Sheet cp - Musculoskeletal Pain cp Forms: - Medication Reconciliation Form cp - Thank You Letter cp - Antibiotic Education cp - Prescription Opioid Use cp Prescriptions: - Ibuprofen 800 mg Oral Tablet - take 1 tablet by ORAL route every 8 hours As needed take with food; 30 tablet; cp Refills: 0, Product Selection Permitted Addendum: 08/04/2022 04:14 Co-signature as Attending Physician, Ludwin Royal MD I agree with the assessment and c pittman plan of care. Signatures: Dispatcher [employer] EDNH Ludwin Royal MD MD cha Page, Corey, PA PA cp Briseyda Gray, RN RN hb
[2022-08-02 00:32] VITALS: BP 128/76; TEMP 98.2; O2SAT 100
--- NOTE | 2022-08-03 12:46 | RAD REPORT ---
EXAM DESCRIPTION: US - Extrem Venous W Compress [place] - 08/01/2022 11:41 pm CLINICAL HISTORY: The patient is 57 years old and is Female; PAIN TECHNIQUE: Real-time duplex ultrasound scan of the bilateral lower extremity veins integrating B-mod e two-dimensional vascular structure, Doppler spectral analysis, color flow Doppler imaging and compr ession. COMPARISON: No relevant prior studies available. FINDINGS: Right deep veins: Unremarkable. No DVT in the visualized common femoral, femoral, or p opliteal veins. The veins demonstrate normal color flow, are normally compressible where visualized , with normal phasic flow and/or augmentation response. Left deep veins: Unremarkable. No DVT in the visualized common femoral, femoral, or popliteal v eins. The veins demonstrate normal color flow, are normally compressible where visualized, with nor mal phasic flow and/or augmentation response. Soft tissues: No acute findings. IMPRESSION: No evidence of DVT in the bilateral lower extremity veins. Electronically signed by: Quinton Bernstein MD 08/02/2022 12:04 AM CDT Due to temporary technical issues with the PACS/Fluency reporting system, reports are being signed by the in house radiologists without review as a courtesy to insure prompt reporting. The interpreting radiologist is fully responsible for the content of the report.
== END 2022-08-02 00:27 | disposition home or self-care (01) ==
LOC: ER 22:29
DX: M79.662 Pain in left lower leg (principal); Z96.642 Presence of left artificial hip joint; Z88.5 Allergy status to narcotic agent
CPT/HCPCS: 93970; 99283

== ENCOUNTER 2022-09-26 15:04 | Emergency (ER) | payer MEDICARE ==
--- OUTSIDE RECORDS SUMMARY | 2022-09-26 15:17 | XMS REPORT | Continuity of Care Document ---
:1965 Author Organization [facility] t Address [address] [place] [address] Care Team Providers Name Role Phone Marcial Alonzo Primary Care Physician RHETT XIONG Attending Clinician Unavailable MARCIAL DOBBS Attending Clinician Unavailable BARRY PAYNE Attending Clinician Unavailable Mar DONATO, Louis Reyes Attending Clinician ASHLEIGH GLASS Attending Clinician Unavailable Marcial Alonzo Attending Clinician BARRY PAYNE Attending Clinician Unavailable RADHA GALINDO Attending Clinician Unavailable Lab, Ang - Db Attending Clinician Unavailable CAYDEN MUIR Attending Clinician Unavailable FOG_A_Provider Attending Clinician Unavailable Davy Berry MD Attending Clinician Rhett Xiong MD Attending Clinician EBYAMINI MENDES Attending Clinician Unavailable Ebrahim DISPLAY SCREEN FABRICATOR, [place] Attending Clinician Susan DISPLAY SCREEN FABRICATOR, Arnoldo Attending Clinician ARNOLDO BRICE Attending Clinician Unavailable Nicol Gonzáles MD Attending Clinician Eva PT, Paulina Hernández Attending Clinician Unavailable Josie DONATO, Radha Mckeon Attending Clinician Pedro SU[employer], Nick Dunbar Attending Clinician Unavailable SHERICE ANTONIO Attending Clinician Unavailable Larisa ESCALERA, Kari Reyes Attending Clinician Unavailable Jesus DONATO, Sterling Attending Clinician STERLING BATRES Attending Clinician Unavailable Brian Morton MD Attending Clinician BRIAN MORTON Attending Clinician Unavailable [facility] Attending Clinician Unavailjoan Main RN, Ludwin Attending Clinician Unavailable Benjamin Núñez RN Attending Clinician Unavailable RANULFO WOLFE Attending Clinician Unavailable IDANIA BIRMINGHAM Attending Clinician Unavailable Idania Pulliam Attending Clinician FAUSTINO HOLT Attending Clinician Unavailable Faustino Anthony Attending Clinician Doctor Unassigned, [place] Attending Clinician Unavailable Parminder Irene MD Attending Clinician PARMINDER IRENE Attending Clinician Unavailable PARMINDER IRENE Attending Clinician Unavailable , Adc Lab Attending Clinician Unavailable John Manzo MD Attending Clinician JOHN MANZO Attending Clinician Unavailable LOUIS MANUEL Attending Clinician Unavailable [facility] Attending Clinician Unavailable KELLY CLARK Attending Clinician Unavailable Kelly Clark NP Attending Clinician Only, Ang Db Test Attending Clinician Unavailable NICOL GONZÁLES Attending Clinician Unavailable FRANCES LANCASTER Attending Clinician Unavailable Zachary Munoz Attending Clinician Only, Web Test Attending Clinician Unavailable Unknown, Attending Attending Clinician Unavailable Julia Laws RN Attending Clinician Unavailable [facility] Attending Clinician Unavailable MANUELITO ROQUE Attending Clinician Unavailable RHETT XIONG Admitting Clinician Unavailable BARRY PAYNE HARRIS Admitting Clinician Unavailable FOG_A_Provider Admitting Clinician Unavailable FAUSTINO HOLT Admitting Clinician Unavailable LOUIS MANUEL Admitting Clinician Unavailable KELLY CLARK Admitting Clinician Unavailable ALENA GARRETT Admitting Clinician Unavailable Payers Payer Name Policy Type Policy Number Effective Date Expiration Date S leticia BLUE ADVANTAGE [id number] 2021 HMO/PLUS 00:00:00 HIM BCBS BLUE [id number] 2019 ADVANTAGE HMO 00:00:00 BLUE ADVANTAGE [id number] HMO-MARKETPLACE - BCBS MARKETPLACE PLAN [id number] 2007 2022 HMO 00:00:00 00:00:00 AIXA [id number] 2016 00:00:00 NDV-MID-XANWUD/KELLY [id number] 2006 CE PLUS 00:00:00 [facility] [id number] 2018 CHOICE HMO 00:00:00 [facility] PCP Problems Condition Condition Condition Status Onset Resolution Last Treating Co mments Source Name Details Category Date Date Treatment Clinician Date Status Status Disease Active 2021-10 [facility] post right post right 215 He alth hip hip 00:00: replacemen replacemen 00 t t Primary Primary Disease Active 2021-10 Univers osteoarthr osteoarthr 11-19 it y of itis of itis of 00:00: [place] right hip right hip 00 Medi shelia Branch Right hip Right hip Disease Active 2021-10 [facility] pain pain 11-02 Health 00:00: 00 Acute pain Acute pain Disease Active 2021-10 U T of both of both 10-21 Health knees knees 00:00: 00 Internal Internal Disease Active 2021-10 UT derangemen derangemen 10-21 He alth t of right t of right 00:00: knee knee 00 Internal Internal Disease Active 2021-10 UT derangemen derangemen 11 He alth t of left t of left 00:00: knee knee 00 Primary Primary Disease Active 2021-10 UT osteoarthr osteoarthr 0-27 He alth itis of itis of 00:00: right hip right hip 00 Status Status Disease Active 2021-10 UT post left post left 013 Heal th hip hip 00:00: replacemen replacemen 00 t t Presence Presence Disease Active 2021-10 UT of left of left 013 Health artificial artificial 00:00: hip joint hip joint 00 M87.052 M87.052 Diagnosis Active 2022-07-23 Memoria Active 06-24 09:47:00 l 06/24/2022 00:00: [place] mason 00 [facility] UNK UNK Diagnosis Active 2022-07-02 Mem oria Active 06-24 07:16:00 l 06/24/2022 00:00: [place] mason 00 [facility] 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 Primary Primary Disease Active UT osteoarthr osteoarthr 06-24 He alth itis of itis of 00:00: left hip left hip 00 Limp Limp Disease Active UT 14 Health 00:00: 00 Class 2 Class 2 [...] of femur, of femur, 00 left left Subchondra Subchondra Disease Active U nivers l l 06-12 ity of insufficie insufficie [place] n[place] Medical fracture fracture Branch of condyle of condyle of left of left femur, femur, initial initial encounter encounter Pre-operat Pre-operat Disease Active U nivers jimmy jimmy 06-12 [place] of clearance [place] Osteoarthr Osteoarthr Disease Active Overview : Univers itis of itis of 8-17 Formattin ity o f left hip, left hip, 00:00: g of this [place] unspecifie unspecifie 00 note Me dical d d might be Branch osteoarthr osteoarthr different itis type itis type from the original. Added automatic ally from request for surgery [id number] Need for Need for Disease Active Unive rs vaccinatio vaccinatio 8-15 it y of n n 00:00: [place] 00 Medical Branch Cervical Cervical Disease Active Unive rs cancer cancer 8-15 ity of screening screening 00:00[place] [facility] Breast Breast Disease Active Univers cancer cancer 8-15 ity of screening screening 00:00: [place] by by 00 Medical mammogram mammogram Bran ch Essential Essential Disease Active Uni vers hypertensi hypertensi 8-15 it y of on on 00:00: [place] [facility] Bulging Bulging Disease Active Univers lumbar lumbar 8-08 ity of disc disc 00:00: [place] 00 Medical [facility] Encounter Encounter Disease Active Uni vers to discuss to discuss 8-08 it y of test test 00:00: [place] results results 00 Medical Branch Left hip Left hip Disease Active Unive rs pain pain 6-06 ity of 00:00: [place] 00 Medical Branch S/P S/P Disease Active Univers laminectom laminectom 6-06 it y of y y 00:00: [place] 00 Medical Branch Abnormal Abnormal Disease Active Unive rs gait gait 6-06 ity of 00:00: [place] 00 Medical Branch Left leg Left leg Disease Active Unive rs pain pain 5-13 ity of 00:00: [place] 00 Medical Branch Sciatica Sciatica Disease Active Unive rs of right of right 4-06 ity of side side 00:00: [place] 00 Medical Branch Chronic Chronic Disease Active [...] s s 1-19 ity of 00:00: [place] [facility] Mixed Mixed Disease Active Univers hyperlipid hyperlipid -19 it y of emia emia 00:00: [place] 00 Medical Branch Abnormal Abnormal Disease Active Unive rs LFTs LFTs -19 ity of 00:00: [place] [facility] GERD GERD Disease Active Univers (gastroeso (gastroeso -17 it y of phageal phageal 00:00: [place] reflux reflux Medical disease) disease) Branch Mitral Mitral Disease Active Univers valve valve -17 ity of prolapse prolapse 00:00: [place] [facility] Anxiety Anxiety Disease Active Univers -17 ity of 00:00: [place] 00 Medical Branch Pernicious Pernicious Disease Active U kam anemia anemia -17 ity of 00:00: [place] [facility] Morbid Morbid Disease Active Univers obesity obesity 1-17 ity of with body with body 00:[place] mass index mass index 00 Me dical (BMI) of (BMI) of Branch 40.0 or 40.0 or higher higher 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 6-27 Zuleika kes disorder disorder 00:00: Medica l 00 Center Hyponatrem Hyponatrem Disease Active [facility] ia ia 6-24 [facility] syndrome syndrome 00:00: Medica l 00 Center Primary Primary Disease Active [facility] polydipsia polydipsia 6-24 Zuleika kes 00:00: Medical 00 Center Acute Acute Disease Active [facility] metabolic metabolic 6-24 Luke s encephalop encephalop 00:00: Me dical athy athy 00 Center Alcohol Alcohol Disease Active Methodi abuse abuse 2-06 st 00:00: Hosp[facility] 00 l PAIN PAIN Diagnosis Active 2019-06-28 Mem oria Active 10-11 13:24:00 l 10/11/2017 08:00: [place] SANTOS SMR 00 [facility] Adult Adult Problem Active 2022-07-20 Stefan adalberto attention attention 06:43:36 l deficit deficit Cornelius hyperactiv hyperactiv ity ity disorder disorder (disorder) (disorder) Active Problem 07/20/2022 [facility] Human Human Problem Active 2022-07-20 Stefan adalberto T-lymphotr T-lymphotr 06:43:36 l opic virus opic virus He rmann 2 2 infection infection (disorder) (disorder) Active Problem 07/20/2022 [facility] Hyperlipid Hyperlipi Problem Active 2022-07-20 Memoria emia demia 06:43:36 l (disorder) (disorder) He rmann Active Problem 07/20/2022 [facility] Hypertensi Hypertens Problem Active 2022-07-20 Memoria ve jimmy 06:43:36 l disorder, disorder, Herm oma systemic systemic arterial arterial (disorder) (disorder) Active Problem 07/20/2022 [facility] Hypothyroi Hypothyro Problem Active 2022-07-20 Memoria dism idism 06:43:36 l (disorder) (disorder) He rmann Active Problem 07/20/2022 [facility] Osteoporos Osteoporo Problem Active 2022-07-20 Memoria is sis 06:43:36 l (disorder) (disorder) He rmann Active Problem 07/20/2022 [facility] IDIOPATHIC IDIOPATHI Diagnosis Active 2022-07-23 Memoria ASEPTIC C ASEPTIC 09:47:00 l 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 Active [facility] Closed Closed Problem Resolve 2022-07-20 Me moria fracture fracture d 06:43:36 l of upper of upper [place] end of end of humerus humerus (disorder) (disorder) Resolved Problem 07/20/2022 [facility] Fracture Fracture Problem Resolve 2022-07-20 Memoria of of d 06:43:36 l calcaneus calcaneus Herm oma (disorder) (disorder) Resolved Problem 07/20/2022 Bilateral [facility] History of History Problem Resolve 2022-07-20 Memoria - upper of - upper d 06:43:36 l gastrointe gastrointe He rmann stinal stinal tract tract hemorrhage hemorrhage (context-d (context-d ependent ependent category) category) Resolved Problem 07/20/2022 [facility] Heart Heart Problem Resolve 2022-07-20 Stefan adalberto murmur murmur d 06:43:36 l (finding) (finding) Willie morales Resolved Problem 07/20/2022 [facility] History of History Problem Resolve 2022-07-20 Memoria - GI Bleed of - GI d 06:43:36 l (context-d Bleed [place] n ependent (context-d category) ependent category) Resolved Problem 07/20/2022 [facility], [facility] No known No known Disease [place] active active Health problems problems Allergies, Adverse Reactions, Alerts Allergy Allergy Status Severity Reaction(s) Onset Inactive Treating Comm ents Source Name Type Date Date Clinician NO KNOWN Drug Active Univers ALLERGIE Class ity of S [facility] NO KNOWN Allergy Active [facility] ALLERGIE S Social History Social Habit Start Date Stop Date Quantity Comments Source History SDOH University o f Alcohol Frequency [place] [facility] History SDOH University o f Alcohol Std Drinks [place] [facility] History SDWA University o f Alcohol Binge [place] [facility] Exposure to 2022-09-14 2022-09-24 Not sure [facility] SARS-CoV-2 (event) 00:00:00 13:04:00 Cigarettes smoked 2022-06-11 2022-06-11 [facility] current (pack per 00:00:00 00:00:00 day) - Reported Cigarette 2022-06-11 2022-06-11 [facility] pack-years 00:00:00 00:00:00 Tobacco use and 2022-06-06 2022-06-06 Smokeless tobacco Me [facility]odist exposure 00:00:00 00:00:00 non-user Hospital Alcohol intake 2022-06-06 2022-06-06 Ex-drinker [facility] 00:00:00 00:00:00 (finding) Hospital Alcohol Comment 2021-10-21 2021-10-21 recovering Universit y of 00:00:00 00:00:00 alcoholic [facility] Social History 2019-04-27 2019-04-[address] [facility] alexander 13:55:12 13:55:12 History of tobacco 1981-05-11 1988-05-11 Passive smoker [facility] use 00:00:00 00:00:00 Sex [birth year] [facility] 00:00:00 00:00:00 Hospital Smoking Status Start Date Stop Date Source Ex-smoker 2021-10-21 00:00:00 2021-10-21 00:00:00 [facility] Medications Ordered Filled Start Stop Current Ordering Indication Dosage Frequency Signature Comments Components Source Medication Medication Date Date Medication? Clinician (SIG) Name Name felodipine 2021-10 Yes [id number] 5mg TAKE 1 U nivers 5 mg 24 hr 2-15 TABLET BY ity of tablet 00:00: MOUTH AT [place] 00 BEDTIME Medical Branch SYNTHROID 2021-10 Yes [id number] TAKE 1 U nivers 75 mcg 2-15 TABLET BY ity of tablet 00:00: MOUTH [place] [id number] EVERY Medical MORNING Branch methylPREDN 2021-10- Yes [id number] 4mg Take 1 UT ISolone 2-15 12-16 tablet (4 Health (Medrol 00:00: 05:59 mg total) Dospak) 4 00 :00 by mouth 1 MG tablets (one) time for 1 dose. Use as directed by package instructio ns Enoxaparin 2021-10 Yes [id number] 40mg QD Inject 0.4 UT Sodium 1-22 9107 mL (40 mg Health (Lovenox) 00:00: total) as 40 MG/0.4ML 00 directed 1 solution (one) time prefilled each day. syringe Enoxaparin 2021-10 Yes [id number] 40mg QD Inject 0.4 UT Sodium 1-22 9107 mL (40 mg Health (Lovenox) 00:00: total) as 40 MG/0.4ML 00 directed 1 solution (one) time prefilled each day. syringe Percocet 2021-10 No 1 tab, PO, Mem oria 10/325 oral 0-07 Q4H, PRN l tablet 12:42: for pain, [place] n # 60 tab, 0 Refill(s), given to [...] oria 0-05 cap, l 14:00: Route: PO, Cornelius 00 Drug form: DRC, Daily, Dosing Weight 101.818, kg, Start date: 07/15/22 9:00:00 CDT, Duration: 30 day, Stop date: 08/13/22 9:00:00 CDT Protonix 2021-10 No Notes: Memoria 0-05 Tablet l 14:00: should not Ede 00 be chewed or crushed. (Same as: Protonix) amLODIPine 2021-10 No Notes: Memor ia 0-05 (Same as: l 14:00: Norvasc) Cornelius 00 Synthroid 2021-10 No 75 Memoria 0-05 microgram, l 11:30: 1 tab, Ede 00 Route: PO, Drug form: TAB, Daily, Dosing Weight 101.818, kg, Start date: 07/15/22 6:30:00 CDT, Duration: 30 day, Stop date: 08/13/22 6:30:00 CDT, 0 rosuvastati 2021-10 No Notes: Stefan adalberto n 0-05 Same as l 02:00: Crestor Cornelius 00 vancomycin 2021-10 No 2000 mg: Me moria (SCIP) + 0-05 infuse l Sodium 01:00: over 2.5 Cornelius Chloride 00 hours For 0.9% IV 250 [...] l 16:46: 4 gm/day. (Same as: Tylenol) ANES 2021-10 No 1,000 mg, Memoria acetaminoph 0-04 Route: PO, l en 16:02: Drug form: Ede 00 TAB, ONCE, Dosing Weight 101.818, kg, PRN Pain Score 1-3, Start date: 07/14/22 11:02:00 CDT ANES 2021-10 No 25 Memoria fentaNYL 0-04 microgram, l 16:02: Route: Cornelius 00 IVP, Q5Min, Dosing Weight 101.818, kg, [...] flumazenil 0-04 Route: l 16:02: IVP, PRN, Ede 00 Dosing Weight 101.818, kg, PRN Benzodiaze pine Reversal, Initial dose, Start date: 07/14/22 11:02:00 CDT, Duration: 30 day, Stop date: 08/13/22 11:01:00 CDT ANES 2021-10 No 0.4 mg, Memoria naloxone 0-04 Route: l 16:02: IVP, Ede 00 Q2MIN, Dosing Weight 101.818, kg, PRN [...] 08/13/22 10:36:00 CDT, BSA: 2.18 m2, 0 [place] 2021-10 No Notes: Do Memoria 10/325 oral 0-04 not exceed l tablet 15:37: 4gm/day of Carole nn 00 acetaminop hen. (Same as: [place] [address]) Percocet 2021-10 No 1 tab, Memoria 10/325 oral 0-04 Route: PO, l tablet 15:37: Dosing Weight 101.818, kg, Q3H, PRN Pain Score [...] Chloride 00 n) 0.9% IV 100 mL [place] 5/325 2021-10 No Notes: Stefan adalberto oral tablet 0-04 (Same as: l 15:37: [place] Ede 00 325/5) Do not exceed 4gm/day of acetaminop hen. Benadryl 2021-10 No Notes: Memoria 0-04 (Same as: l 15:37: Benadryl) ePHEDrine 2021-10 No Route: IV, Me moria (ANES) 0-04 Drug form: l 14:57: INJ, ONCE, Stop date: 07/14/22 9:57:00 CDT hydromorpho 2021-10 [...] (ANES) 0-04 Drug form: l 13:26: SOLN, Ede 00 ONCE, Stop date: 07/14/22 8:26:00 CDT vancomycin 2021-10 No Route: IV, M emoria (ANES) 1000 0-04 Drug form: l mg [...] 0-04 Route: PO, l 12:00: Drug form: Ede ERTABMALCOLM, Dosing Weight 101.818, kg, Start date: 07/14/22 7:00:00 CDT, Duration: 30 day, Stop date: 08/13/22 6:59:00 CDT, 0 Tylenol 2021-10 No 1,000 mg, Memor ia 0-04 Route: PO, l 12:00: Drug form: Ede 00 TABMALCOLM, Dosing Weight 101.818, kg, Start date: 07/14/22 7:00:00 CDT, Duration: 30 day, Stop date: 08/13/22 6:59:00 CDT, 0 ceFAZolin + 2021-10 No Notes: Stefan adalberto sterile 0-04 (Same As: l water 20 mL 12:00: Ancef, Herm oma Kefzol) MEDICATION WASTE Product Size: 1000 mg [...] FOR IV l r INJ 16:47: use Cornelius 00 Ropivacain e 5 mg/mL (49.25 mL) Epinephrin e 1 mg/mL (0.5 mL) Clonidine 0.1 mg/mL (0.8 mL) Ketorolac 30 mg/mL (1 mL) Normal Saline 48.45 mL oxyCODONE-a 2021-10 Yes [id number] 1{tbl} Take 1 UT cetaminophe 0-03 9108 tablet by a [facility] n 00:00: mouth (Percocet) 00 every 4 10-325 MG (four) tablet hours if needed (pain) for up to 60 doses. oxyCODONE-a 2021-10 Yes [id number] 1{tbl} Take 1 UT cetaminophe 0-03 9108 tablet by a lt n 00:00: mouth (Percocet) 00 every 4 10-325 MG (four) tablet hours if needed (pain) for up to 60 doses. oxyCODONE-a 2021-10 Yes [id number] 1{tbl} Take 1 UT cetaminophe 0-03 9108 tablet by a lt n 00:00: mouth (Percocet) 00 every 4 10-325 MG (four) tablet hours if needed (pain) for up to 60 doses. oxyCODONE-a 2021-10 Yes [id number] 1{tbl} Take 1 UT cetaminophe 0-03 9108 tablet by a lt n 00:00: mouth (Percocet) 00 every 4 10-325 MG (four) tablet hours if needed (pain) for up to 60 doses. oxyCODONE-a 2021-10 Yes [id number] 1{tbl} Take 1 UT cetaminophe 0-03 9108 tablet by a lt n 00:00: mouth (Percocet) 00 every 4 10-325 MG (four) tablet hours if needed (pain) for up to 60 doses. oxyCODONE-a Yes [id number] 1{tbl} Take 1 UT cetaminophe 9-27 9108 tablet by a lt n 00:00: mouth (Percocet) 00 every 4 10-325 MG (four) tablet hours if needed (pain) for up to 60 doses. naloxone 2022- Yes [id number] 4mg Administer UT (Narcan) 4 07-07 9108 1 spray (4 He alth mg/0.1 mL 00:00: 04:59 mg total) nasal spray 00 :00 into affected nostril(s) if needed for opioid reversal. May repeat every 2-3 minutes if needed, alternatin g nostrils, until medical assistance becomes available. naloxone 2022- Yes [id number] 4mg Administer UT (Narcan) 4 07-07 9108 1 spray (4 He alth mg/0.1 mL 00:00: 04:59 mg total) nasal spray 00 :00 into affected nostril(s) if needed for opioid reversal. May repeat every 2-3 minutes if needed, alternatin g nostrils, until medical assistance becomes available. naloxone 2022- Yes [id number] 4mg Administer UT (Narcan) 4 07-07 9108 1 spray (4 He alth mg/0.1 mL 00:00: 04:59 mg total) nasal spray 00 :00 into affected nostril(s) if needed for opioid reversal. May repeat every 2-3 minutes if needed, alternatin g nostrils, until medical assistance becomes available. naloxone 2022- Yes [id number] 4mg Administer UT (Narcan) 4 07-07 9108 1 spray (4 He alth mg/0.1 mL 00:00: 04:59 mg total) nasal spray 00 :00 into affected nostril(s) if needed for opioid reversal. May repeat every 2-3 minutes if needed, alternatin g nostrils, until medical assistance becomes available. naloxone 2022- Yes [id number] 4mg Administer UT (Narcan) 4 07-07 9108 1 spray (4 He alth mg/0.1 mL 00:00: 04:59 mg total) nasal spray 00 :00 into affected nostril(s) if needed for opioid reversal. May repeat every 2-3 minutes if needed, alternatin g nostrils, until medical assistance becomes available. naloxone 2022- Yes [id number] 4mg Administer UT (Narcan) 4 07-07 9108 1 spray (4 He alth mg/0.1 mL 00:00: 04:59 mg total) nasal spray 00 :00 into affected nostril(s) if needed for opioid reversal. May repeat every 2-3 minutes if needed, alternatin g nostrils, until medical assistance becomes available. Enoxaparin 2021- Yes [id number] 40mg QD Inject 0.4 UT Sodium 07-07 9108 mL (40 mg Health (Lovenox) 00:00: 04:59 total) as 40 MG/0.4ML 00 :00 directed 1 solution (one) time prefilled each day syringe for 9 days. ondansetron 2021- Yes [id number] 4mg Take 1 UT ODT (Zofran 07-07 [...] 5 Yes 5 mg = 1 Stefan adalberto mg oral -22 tab, PO, l tablet 12:51: Daily, # Cornelius 00 30 tab, 0 Refill(s) oxyCODONE No 15 mg = 1 Mem oria 15 mg oral -22 tab, PO, l tablet, 12:51: PRN, PRN [place] n immediate 00 Pain, 0 release Refill(s) methocarbam 0 Yes 1,000 mg = Memoria ol 500 mg 07-02 2 tab, PO, l oral tablet 12:51: BID, 0 Herm oma 00 Refill(s) omeprazole 0 Yes 20 mg = 1 Me moria 20 mg oral - cap, PO, l delayed 12:50: Daily, 0 [place] n release 00 Refill(s) capsule buPROPion Yes 450 mg = 1 Me moria 450 mg/24 9-22 tab, PO, l hours (XL) 12:50: Q24H, 0 Herm oma oral 00 Refill(s) tablet, extended release rosuvastati Yes 20 mg = 1 M emoria n 20 mg 9-22 tab, PO, l oral tablet 12:50: Bedtime, # Cornelius 00 30 tab, 0 Refill(s) felodipine Yes [...] = 1 M emoria 300 mg oral 922 cap, PO, l capsule 12:48: TID, # [...] ity of 5 mg tablet 16:00: daily. [address] OLANZapine Yes 15mg Take 15 mg U nivers 15 mg 02 by mouth. ity of tablet 16:00: [address] SERTraline Yes 50mg Take 50 mg U nivers 50 mg 02 by mouth. ity of tablet 16:00: [address] traZODone Yes 200mg Take 200 Uni vers 100 mg 02 mg by ity of tablet 16:00: mouth. [address] ARIPiprazol 2-0 Yes 5mg Take 5 mg U nivers e (ABILIFY) 9-02 by mouth ity of 5 mg tablet 16:00: daily. [address] OLANZapine 2-0 Yes 15mg Take 15 mg U nivers 15 mg 9-02 by mouth. ity of tablet 16:00: [address] SERTraline 2-0 Yes 50mg Take 50 mg U nivers 50 mg 9-02 by mouth. ity of tablet 16:00: [address] traZODone 2021-0 Yes 200mg Take 200 Uni vers 100 mg 9-02 mg by ity of tablet 16:00: mouth. [address] ARIPiprazol 2-0 Yes 5mg Take 5 mg U nivers e (ABILIFY) 9-02 by mouth ity of 5 mg tablet 16:00: daily. [address] OLANZapine 2-0 Yes 15mg Take 15 mg U nivers 15 mg 9-02 by mouth. ity of tablet 16:00: [address] SERTraline 2-0 Yes 50mg Take 50 mg U nivers 50 mg 9-02 by mouth. ity of tablet 16:00: [address] traZODone 2-0 Yes 200mg Take 200 Uni vers 100 mg 9-02 mg by ity of tablet 16:00: mouth. [address] ARIPiprazol 2-0 Yes 5mg Take 5 mg U nivers e (ABILIFY) 9-02 by mouth ity of 5 mg tablet 16:00: daily. [address] OLANZapine 2-0 Yes 15mg Take 15 mg U nivers 15 mg 9-02 by mouth. ity of tablet 16:00: [address] SERTraline 2-0 Yes 50mg Take 50 mg U nivers 50 mg 9-02 by mouth. ity of tablet 16:00: [address] traZODone 2-0 Yes 200mg Take 200 Uni vers 100 mg 9-02 mg by ity of tablet 16:00: mouth. [address] ARIPiprazol 2-0 Yes 5mg Take 5 mg U nivers e (ABILIFY) 9-02 by mouth ity of 5 mg tablet 16:00: daily. Antonella [address] OLANZapine 2-0 Yes 15mg Take 15 mg U nivers 15 mg 02 by mouth. ity of tablet 16:00: [address] SERTraline 2021-0 Yes 50mg Take 50 mg U nivers 50 mg 02 by mouth. ity of tablet 16:00: [address] traZODone 2-0 Yes 200mg Take 200 Uni vers 100 mg 9-02 mg by ity of tablet 16:00: mouth. [address] Vortioxetin 2022-0 Yes 10mg QD Take [...] 59 each day. gabapentin 2022-0 Yes 600mg [id number] Take 600 UT (Neurontin) 9- [id number] mg by H ealth 600 MG 09:37: [...] 59 each day. gabapentin 2022-0 Yes 600mg [id number] Take 600 UT (Neurontin) 9- [id number] mg by H ealth 600 MG 09:37: [...] 59 each day. gabapentin 2022-0 Yes 600mg [id number] Take 600 UT (Neurontin) 9- [id number] mg by H ealth 600 MG 09:37: [...] 59 each day. gabapentin 2022-0 Yes 600mg Q.[id number] Take 600 [facility] (Neurontin) 9- [id number] mg by [facility] 600 MG 09:37: [...] 59 each day. gabapentin 2022-0 Yes 600mg Q.[id number] Take 600 [facility] (Neurontin) 9- [id number] mg by [facility] 600 MG 09:37: [...] tablet 09:37: (one) time 59 each day. ARIPiprazol 2022-0 Yes 5mg QD Take 5 mg U T e (Abilify) - by mouth 1 He alth 5 MG tablet 09:37: (one) time 59 each day. gabapentin 2022-0 Yes 600mg Q.[id number] Take 600 [facility] (Neurontin) 9- [id number] mg by [facility] 600 MG 09:37: 3D mouth in tablet 59 the morning and 600 mg at noon and 600 mg in the evening. levothyroxi 2022-0 Yes 88ug QD Take 88 [facility] ne 9-01 mcg by [facility] (Synthroid, 09:37: mouth 1 Levoxyl) 88 59 (one) time MCG tablet each day. gabapentin 2022-0 Yes 600mg Q.[id number] Take 600 [facility] (Neurontin) 06-11 [id number] mg by [facility] 600 MG 09:37: [...] 09:37: (one) time 59 each day. gabapentin 202-0 Yes 600mg Q.[id number] Take 600 [facility] (Neurontin) 06-11 [id number] mg by [facility] 600 MG 09:37: 3D mouth in tablet 59 the morning and 600 mg at noon and 600 mg in the evening. levothyroxi 202-0 Yes 88ug QD Take 88 [facility] ne 9-01 mcg by [facility] (Synthroid, 09:37: mouth 1 Levoxyl) 88 59 (one) time MCG tablet each day. omeprazole 2021- No [id number] 20mg QD Take 1 [facility] OTC 06-11 tablet (20 [facility] (PriLOSEC 00:00: 04:59 mg total) OTC) 20 MG 00 :00 by mouth 1 EC tablet (one) time each day. Do not crush, chew, or split. Take w/ NSAID Diclofenac 2021-2021- No [id number] Q.[id number] Apply [facility] Sodium 06-11 [id number] topically [facility] (Voltaren) 00:00: 04:59 3D 3 (three) 1 % 00 :00 times a external day if gel needed (pain). Apply 4 grams to affected area, do not exceed greater than 16 grams a day meloxicam 2021-0 2021- No [id number] 7.5mg Take 1 [facility] (Mobic) 7.5 06-11 tablet Healt h MG tablet 00:00: 04:59 (7.5 mg 00 :00 total) by mouth 1 (one) time each day if needed (pain). omeprazole 2021- No [id number] 20mg QD Take 1 [facility] OTC 06-11 tablet (20 [facility] (PriLOSEC 00:00: 04:59 mg total) OTC) 20 MG 00 :00 by mouth 1 EC tablet (one) time each day. Do not crush, chew, or split. Take w/ NSAID Diclofenac 2021- No [id number] Q.[id number] Apply [facility] Sodium 06-11 [id number] topically [facility] (Voltaren) 00:00: 04:59 3D 3 (three) 1 % 00 :00 times a external day if gel needed (pain). Apply 4 grams to affected area, do not exceed greater than 16 grams a day meloxicam 2021- No [id number] 7.5mg Take 1 [facility] (Mobic) 7.5 06-11 tablet Healt h MG tablet 00:00: 04:59 (7.5 mg 00 :00 total) by mouth 1 (one) time each day if needed (pain). omeprazole 2021- No [id number] 20mg QD Take 1 [facility] OTC 06-11 tablet (20 [facility] (PriLOSEC 00:00: 04:59 mg total) OTC) 20 MG 00 :00 by mouth 1 EC tablet (one) time each day. Do not crush, chew, or split. Take w/ NSAID Diclofenac 2021- No [id number] Q.[id number] Apply [facility] Sodium 06-11 [id number] topically [facility] (Voltaren) 00:00: 04:59 3D 3 (three) 1 % 00 :00 times a external day if gel needed (pain). Apply 4 grams to affected area, do not exceed greater than 16 grams a day meloxicam 2021- No [id number] 7.5mg Take 1 [facility] (Mobic) 7.5 06-11 tablet Healt h MG tablet 00:00: 04:59 (7.5 mg 00 :00 total) by mouth 1 (one) time each day if needed (pain). methylPREDN 2021- No [id number] 4mg Take 1 [facility] ISolone 06-11 tablet (4 [facility] (Medrol 00:00: 04:59 mg total) Dospak) 4 00 :00 by mouth 1 MG tablets (one) time for 1 dose. Use as directed by package instructio ns levothyroxi 2-0 Yes 88ug QD Take 1 [facility] ne -28 tablet (88 st (SYNTHROID) 22:14: mcg total) [facility]osp[facility] 88 mcg 00 by mouth l tablet daily. omeprazole 2-0 Yes 20mg QD Take 1 [facility] (PriLOSEC) 06-[address] 20 MG 22:14: (20 mg [facility]osp[facility] capsule 00 total) by l mouth daily. methocarbam 2021-0 Yes 500mg Q.5D Take 1 [facility] o[facility] - tablet st (ROBAXIN) 22:14: (500 mg [facility]pi ta 500 MG 00 total) by l tablet mouth 2 (two) times a day. traMADoL 2021-0 Yes [id number] 50mg Q.5D Take 1 [facility] (ULTRAM) 50 06-07 tablet (50 st mg tablet 22:14: mg total) [facility] 00 by mouth 2 l (two) times a day .acute pain. oxyCODone 2021-0 Yes [id number] 15mg Q.[id number] Take 1 [facility] (ROXICODONE 06-07 [id number] tablet (15 st ) 15 MG 22:14: 3D mg total) [facility]pi ta immediate 00 by mouth 3 l release (three) tablet times a day .acute pain. Max Daily Amount: 45 mg gabapentin 2021-0 Yes 600mg Q.[id number] Take 1 [facility] (NEURONTIN) 06-[id number] 600 mg 22:14: 3D (600 mg [facility]osp[facility] tablet 00 total) by l mouth 3 (three) times a day. diclofenac 2-0 Yes 75mg QD Take 1 [facility] (VOLTAREN) - tablet (75 st 75 MG EC 22:14: mg total) [facility]osp [facility] tablet 00 by mouth l daily. escitalopra 2-0 Yes 20mg QD Take 1 [facility] m (LEXAPRO) -28 tablet (20 st 20 MG 22:14: mg total) [facility]osp[facility] tablet 00 by mouth l daily. rosuvastati 2-0 Yes 20mg QD Take 1 [facility]athleen n (CRESTOR) 8-28 tablet (20 st 20 mg 22:14: mg total) [facility]osp[facility] tablet 00 by mouth l daily. felodipine 2022-0 Yes 5mg QD Take 1 [facility] (PLENDIL) 5 - tablet (5 st MG 24 hr 22:14: mg total) [facility]osp [facility] tablet 00 by mouth l daily. buPROPion 2022-0 Yes 300mg QD Take 1 [facility] XL - tablet st (WELLBUTRIN 22:14: (300 mg Hos levy XL) 300 MG 00 total) by l 24 hr mouth tablet daily. ARIPiprazol 2022-0 Yes 5mg QD Take 1 [facility] e (ABILIFY) 06-07 tablet (5 st 5 MG tablet 22:14: mg total) [facility] 00 by mouth l daily. levothyroxi 2-0 Yes 88ug QD Take 1 [facility] ne 06-07 tablet (88 st (SYNTHROID) 22:14: mcg total) [facility]osp[facility] 88 mcg 00 by mouth l tablet daily. omeprazole 2-0 Yes 20mg QD Take 1 [facility] (PriLOSEC) 06-[address] 20 MG 22:14: (20 mg [facility]osp[facility] capsule 00 total) by l mouth daily. methocarbam 2-0 Yes 500mg Q.5D Take 1 [facility] o[facility] 06-[address] (ROBAXIN) 22:14: (500 mg [facility] ta 500 MG 00 total) by l tablet mouth 2 (two) times a day. traMADoL 2-0 Yes [id number] 50mg Q.5D Take 1 [facility] (ULTRAM) 50 06-07 tablet (50 st mg tablet 22:14: mg total) [facility] 00 by mouth 2 l (two) times a day .acute pain. oxyCODone 2021-0 Yes 10213 15mg Q.[id number] Take 1 [facility] (ROXICODONE 06-07 [id number] tablet (15 st ) 15 MG 22:14: 3D mg total) [facility] immediate 00 by mouth 3 l release (three) tablet times a day .acute pain. Max Daily Amount: 45 mg gabapentin 2-0 Yes 600mg Q.[id number] Take 1 [facility] (NEURONTIN) 06-[id number] 600 mg 22:14: 3D (600 mg [facility]osp[facility] tablet 00 total) by l mouth 3 (three) times a day. diclofenac 2022-0 Yes 75mg QD Take 1 [facility] (VOLTAREN) 8-28 tablet (75 st 75 MG EC 22:14: mg total) [facility]osp [facility] tablet 00 by mouth l daily. escitalopra 2022-0 Yes 20mg QD Take 1 [facility] m (LEXAPRO) 8-28 tablet (20 st 20 MG 22:14: mg total) [facility]osp[facility] tablet 00 by mouth l daily. rosuvastati 2022-0 Yes 20mg QD Take 1 [facility] kathleen n (CRESTOR) 8-28 tablet (20 st 20 mg 22:14: mg total) [facility]osp[facility] tablet 00 by mouth l daily. felodipine 2022-0 Yes 5mg QD Take 1 [facility] (PLENDIL) 5 8-28 tablet (5 st MG 24 hr 22:14: mg total) [facility]osp [facility] tablet 00 by mouth l daily. buPROPion 2022-0 Yes 300mg QD Take 1 [facility] XL - tablet st (WELLBUTRIN 22:14: (300 mg Hos le[facility] XL) 300 MG 00 total) by l 24 hr mouth tablet daily. ARIPiprazol 2022-0 Yes 5mg QD Take 1 [facility] e (ABILIFY) 8- tablet (5 st 5 MG tablet 22:14: mg total) [facility] 00 by mouth l daily. levothyroxi 2022-0 Yes 88ug QD Take 1 [facility] ne 8- tablet (88 st (SYNTHROID) 22:14: mcg total) [facility]osp[facility] 88 mcg 00 by mouth l tablet daily. omeprazole 2-0 Yes 20mg QD Take 1 [facility] (PriLOSEC) 8-[address] 20 MG 22:14: (20 mg [facility]osp[facility] capsule 00 total) by l mouth daily. methocarbam 2022-0 Yes 500mg Q.5D Take 1 [facility] 8-[address] (ROBAXIN) 22:14: (500 mg Hospi ta 500 MG 00 total) by l tablet mouth 2 (two) times a day. traMADoL 2022-0 Yes [id number] 50mg Q.5D Take 1 [facility] (ULTRAM) 50 8-28 tablet (50 st mg tablet 22:14: mg total) [facility] 00 by mouth 2 l (two) times a day .acute pain. oxyCODone 2021-0 Yes [id number] 15mg Q.[id number] Take 1 [facility] (ROXICODONE 06-07 [id number] tablet (15 st ) 15 MG 22:14: 3D mg total) [facility] immediate 00 by mouth 3 l release (three) tablet times a day .acute pain. Max Daily Amount: 45 mg gabapentin 2021-0 Yes 600mg Q.[id number] Take 1 [facility] (NEURONTIN) 06-[id number] 600 mg 22:14: 3D (600 [...] tablet 00 by mouth l daily. rosuvastati 2021-0 Yes 20mg QD Take 1 [facility]leen n (CRESTOR) 06-07 tablet (20 st 20 mg 22:14: mg total) [facility]osp[facility] tablet 00 by mouth l daily. felodipine 2-0 Yes 5mg QD Take 1 [facility] (PLENDIL) 5 06-07 tablet (5 st MG 24 hr 22:14: mg total) [facility]osp [facility] tablet 00 by mouth l daily. buPROPion 2021-0 Yes 300mg QD Take 1 [facility] XL 06-[address] (WELLBUTRIN 22:14: (300 mg Hos [facility] XL) 300 MG 00 total) by l 24 hr mouth tablet daily. ARIPiprazol 2022-0 Yes 5mg QD Take 1 [facility] e (ABILIFY) 06-07 tablet (5 st 5 MG tablet 22:14: mg total) [facility] 00 by mouth l daily. levothyroxi 2022-0 Yes 88ug QD Take 1 [facility] ne 06-07 tablet (88 st (SYNTHROID) 22:14: mcg total) [facility]osp[facility] 88 mcg 00 by mouth l tablet daily. omeprazole 2022-0 Yes 20mg QD Take 1 [facility] (PriLOSEC) 06-[address] 20 MG 22:14: (20 mg [facility]osp[facility] capsule 00 total) by l mouth daily. methocarbam 2021-0 Yes 500mg Q.5D Take 1 [facility] - tablet st (ROBAXIN) 22:14: (500 mg Hospi ta 500 MG 00 total) by l tablet mouth 2 (two) times a day. traMADoL 2021-0 Yes [id number] 50mg Q.5D Take 1 [facility] (ULTRAM) 50 06-07 tablet (50 st mg tablet 22:14: mg total) [facility] 00 by mouth 2 l (two) times a day .acute pain. oxyCODone 2021-0 Yes [id number] 15mg Q.[id number] Take 1 [facility] (ROXICODONE 06-07 [id number] tablet (15 st ) 15 MG 22:14: 3D mg total) [facility]pi [facility] immediate 00 by mouth 3 l release (three) tablet times a day .acute pain. Max Daily Amount: 45 mg gabapentin 2021-0 Yes 600mg Q.[id number] Take 1 [facility] (NEURONTIN) 06-[id number] 600 mg 22:14: 3D (600 [...] QD Take 1 [facility] n (CRESTOR) 8-28 tablet (20 st 20 mg 22:14: mg total) [facility]osp[facility] tablet 00 by mouth l daily. felodipine 2-0 Yes 5mg QD Take 1 [facility] (PLENDIL) 5 06-07 tablet (5 st MG 24 hr 22:14: mg total) [facility]osp [facility] tablet 00 by mouth l daily. buPROPion 2-0 Yes 300mg QD Take 1 [facility] XL 8-[address] (WELLBUTRIN 22:14: (300 mg Hos le[facility] XL) 300 MG 00 total) by l 24 hr mouth tablet daily. ARIPiprazol 2022-0 Yes 5mg QD Take 1 [facility] e (ABILIFY) 06-07 tablet (5 st 5 MG tablet 22:14: mg total) [facility] 00 by mouth l daily. levothyroxi 2-0 Yes 88ug QD Take 1 [facility] ne 06-07 tablet (88 st (SYNTHROID) 22:14: mcg total) [facility]osp[facility] 88 mcg 00 by mouth l tablet daily. omeprazole 2-0 Yes 20mg QD Take 1 [facility] (PriLOSEC) 06-[address] 20 MG 22:14: (20 mg [facility]osp[facility] capsule 00 total) by l mouth daily. methocarbam 2021-0 Yes 500mg Q.5D Take 1 [facility] o[facility] 06-[address] (ROBAXIN) 22:14: (500 mg [facility]pi ta 500 MG 00 total) by l tablet mouth 2 (two) times a day. traMADoL 2021-0 Yes [id number] 50mg Q.5D Take 1 [facility] (ULTRAM) 50 06-07 tablet (50 st mg tablet 22:14: mg total) [facility] 00 by mouth 2 l (two) times a day .acute pain. oxyCODone 2021-0 Yes [id number] 15mg Q.[id number] Take 1 [facility] (ROXICODONE 06-07 [id number] tablet (15 st ) 15 MG 22:14: 3D mg total) [facility] immediate 00 by mouth 3 l release (three) tablet times a day .acute pain. Max Daily Amount: 45 mg gabapentin 2021-0 Yes 600mg Q.[id number] Take 1 [facility] (NEURONTIN) 06-[id number] 600 mg 22:14: 3D (600 mg [facility]osp[facility] tablet 00 total) by l mouth 3 (three) times a day. diclofenac 2-0 Yes 75mg QD Take 1 [facility] (VOLTAREN) 06-07 tablet (75 st 75 MG EC 22:14: mg total) [facility]osp [facility] tablet 00 by mouth l daily. escitalopra 2-0 Yes 20mg QD Take 1 [facility] (LEXAPRO) 8-28 tablet (20 st 20 MG 22:14: mg total) [facility]osp[facility] tablet 00 by mouth l daily. rosuvastati 2022-0 Yes 20mg QD Take 1 [facility] n (CRESTOR) 8-28 tablet (20 st 20 mg 22:14: mg total) [facility]osp[facility] tablet 00 by mouth l daily. felodipine 2022-0 Yes 5mg QD Take 1 [facility] (PLENDIL) 5 8-28 tablet (5 st MG 24 hr 22:14: mg total) [facility] tablet 00 by mouth l daily. buPROPion 2022-0 Yes 300mg QD Take 1 [facility] XL 8-[address] (WELLBUTRIN 22:14: (300 mg Hos [facility] XL) 300 MG 00 total) by l 24 hr mouth tablet daily. ARIPiprazol 2022-0 Yes 5mg QD Take 1 [facility] e (ABILIFY) 8-28 tablet (5 st 5 MG tablet 22:14: mg total) [facility] 00 by mouth l daily. levothyroxi 2021-0 Yes 88ug QD Take 1 [facility] ne - tablet (88 st (SYNTHROID) 22:14: mcg total) [facility]osp[facility] 88 mcg 00 by mouth l tablet daily. omeprazole 2-0 Yes 20mg QD Take 1 [facility] (PriLOSEC) 06-[address] 20 MG 22:14: (20 mg [facility]osp[facility] capsule 00 total) by l mouth daily. methocarbam 2022-0 Yes 500mg Q.5D Take 1 [facility] -[address] (ROBAXIN) 22:14: (500 mg [facility] ta 500 MG 00 total) by l tablet mouth 2 (two) times a day. traMADoL 2-0 Yes [id number] 50mg Q.5D Take 1 [facility] (ULTRAM) 50 - tablet (50 st mg tablet 22:14: mg total) [facility] 00 by mouth 2 l (two) times a day .acute pain. oxyCODone 2-0 Yes [id number] 15mg Q.[id number] Take 1 [facility] (ROXICODONE -28 [id number] tablet (15 st ) 15 MG 22:14: 3D mg total) [facility] immediate 00 by mouth 3 l release (three) tablet times a day .acute pain. Max Daily Amount: 45 mg gabapentin 2022-0 Yes 600mg Q.[id number] Take 1 [facility] (NEURONTIN) 06-[id number] 600 mg 22:14: 3D (600 mg [facility]osp[facility] tablet 00 total) by l mouth 3 (three) times a day. diclofenac 2022-0 Yes 75mg QD Take 1 [facility] (VOLTAREN) 8- tablet (75 st 75 MG EC 22:14: mg total) [facility]osp [facility] tablet 00 by mouth l daily. escitalopra 2022-0 Yes 20mg QD Take 1 [facility] (LEXAPRO) - tablet (20 st 20 MG 22:14: mg total) [facility]osp[facility] tablet 00 by mouth l daily. rosuvastati 2022-0 Yes 20mg QD Take 1 [facility] n (CRESTOR) - tablet (20 st 20 mg 22:14: mg total) [facility]osp[facility] tablet 00 by mouth l daily. felodipine 2022-0 Yes 5mg QD Take 1 [facility] (PLENDIL) 5 06-07 tablet (5 st MG 24 hr 22:14: mg total) [facility] tablet 00 by mouth l daily. buPROPion 2-0 Yes 300mg QD Take 1 [facility] XL 06-[address] (WELLBUTRIN 22:14: (300 mg Hos [facility] XL) 300 MG 00 total) by l 24 hr mouth tablet daily. ARIPiprazol 2022-0 Yes 5mg QD Take 1 [facility] e (ABILIFY) 06-07 tablet (5 st 5 MG tablet 22:14: mg total) [facility] 00 by mouth l daily. levothyroxi 2-0 Yes 88ug QD Take 1 [facility] ne 06-07 tablet (88 st (SYNTHROID) 22:14: mcg total) [facility]ospita 88 mcg 00 by mouth l tablet daily. omeprazole 2-0 Yes 20mg QD Take 1 [facility] (PriLOSEC) [address] 20 MG 22:14: (20 mg [facility]osp[facility] capsule 00 total) by l mouth daily. methocarbam 2022-0 Yes 500mg Q.5D Take 1 [facility] 8- tablet st (ROBAXIN) 22:14: (500 mg Hospi ta 500 MG 00 total) by l tablet mouth 2 (two) times a day. traMADoL 2021-0 Yes [id number] 50mg Q.5D Take 1 [facility] (ULTRAM) 50 - tablet (50 st mg tablet 22:14: mg total) [facility] 00 by mouth 2 l (two) times a day .acute pain. oxyCODone 2021-0 Yes [id number] 15mg Q.[id number] Take 1 [facility] (ROXICODONE 06-07 [id number] tablet (15 st ) 15 MG 22:14: 3D mg total) [facility] immediate 00 by mouth 3 l release (three) tablet times a day .acute pain. Max Daily Amount: 45 mg gabapentin 2021-0 Yes 600mg Q.[id number] Take 1 [facility] (NEURONTIN) 06-[id number] 600 mg 22:14: 3D (600 [...] QD Take 1 [facility] n (CRESTOR) 8-28 tablet (20 st 20 mg 22:14: mg total) [facility]osp[facility] tablet 00 by mouth l daily. felodipine 2022-0 Yes 5mg QD Take 1 [facility] (PLENDIL) 5 -28 tablet (5 st MG 24 hr 22:14: mg total) [facility] tablet 00 by mouth l daily. buPROPion 2022-0 Yes 300mg QD Take 1 [facility] XL 8-[address] (WELLBUTRIN 22:14: (300 mg Hos [facility] XL) 300 MG 00 total) by l 24 hr mouth tablet daily. ARIPiprazol 2022-0 Yes 5mg QD Take 1 [facility] e (ABILIFY) 8-28 tablet (5 st 5 MG tablet 22:14: mg total) [facility] 00 by mouth l daily. levothyroxi 2-0 Yes 88ug QD Take 1 [facility] ne - tablet (88 st (SYNTHROID) 22:14: mcg total) [facility]osp[facility] 88 mcg 00 by mouth l tablet daily. omeprazole 2021-0 Yes 20mg QD Take 1 [facility] (PriLOSEC) 06-[address] 20 MG 22:14: (20 mg [facility]osp[facility] capsule 00 total) by l mouth daily. methocarbam 2021-0 Yes 500mg Q.5D Take 1 [facility] o[facility] - tablet st (ROBAXIN) 22:14: (500 mg [facility]pi ta 500 MG 00 total) by l tablet mouth 2 (two) times a day. traMADoL 2021-0 Yes [id number] 50mg Q.5D Take 1 [facility] (ULTRAM) 50 - tablet (50 st mg tablet 22:14: mg total) [facility] 00 by mouth 2 l (two) times a day .acute pain. oxyCODone 2021-0 Yes 37801 15mg Q.[id number] Take 1 [facility] (ROXICODONE 06-07 [id number] tablet (15 st ) 15 MG 22:14: 3D mg total) [facility] ta immediate 00 by mouth 3 l release (three) tablet times a day .acute pain. Max Daily Amount: 45 mg gabapentin 2021-0 Yes 600mg Q.[id number] Take 1 [facility] (NEURONTIN) 06-[id number] 600 mg 22:14: 3D (600 mg [facility]osp[facility] tablet 00 total) by l mouth 3 (three) times a day. diclofenac 2021-0 Yes 75mg QD Take 1 [facility] (VOLTAREN) 06-07 tablet (75 st 75 MG EC 22:14: mg total) [facility] tablet 00 by mouth l daily. escitalopra 2-0 Yes 20mg QD Take 1 [facility] (LEXAPRO) 8-28 tablet (20 st 20 MG 22:14: mg total) [facility]osp[facility] tablet 00 by mouth l daily. rosuvastati 2-0 Yes 20mg QD Take 1 [facility] n (CRESTOR) 8-28 tablet (20 st 20 mg 22:14: mg total) [facility]osp[facility] tablet 00 by mouth l daily. felodipine 2022-0 Yes 5mg QD Take 1 [facility] (PLENDIL) 5 8-28 tablet (5 st MG 24 hr 22:14: mg total) [facility] tablet 00 by mouth l daily. buPROPion 2022-0 Yes 300mg QD Take 1 [facility] XL -[address] (WELLBUTRIN 22:14: (300 mg Hos [facility] XL) 300 MG 00 total) by l 24 hr mouth tablet daily. ARIPiprazol 2022-0 Yes 5mg QD Take 1 [facility] e (ABILIFY) - tablet (5 st 5 MG tablet 22:14: mg total) [facility] 00 by mouth l daily. levothyroxi 2021-0 Yes 88ug QD Take 1 [facility] ne - tablet (88 st (SYNTHROID) 22:14: mcg total) [facility]osp[facility] 88 mcg 00 by mouth l tablet daily. omeprazole 2021-0 Yes 20mg QD Take 1 [facility] (PriLOSEC) 06-[address] 20 MG 22:14: (20 mg [facility]osp[facility] capsule 00 total) by l mouth daily. methocarbam 2021-0 Yes 500mg Q.5D Take 1 [facility] o[facility] 06-[address] (ROBAXIN) 22:14: (500 mg [facility]pi ta 500 MG 00 total) by l tablet mouth 2 (two) times a day. traMADoL 2021-0 Yes [id number] 50mg Q.5D Take 1 [facility] (ULTRAM) 50 06-07 tablet (50 st mg tablet 22:14: mg total) [facility] 00 by mouth 2 l (two) times a day .acute pain. oxyCODone 2021-0 Yes 15903 15mg Q.84600043 Take 1 [facility] (ROXICODONE 06-07 [id number] tablet (15 st ) 15 MG 22:14: 3D mg total) [facility]pi ta immediate 00 by mouth 3 l release (three) tablet times a day .acute pain. Max Daily Amount: 45 mg gabapentin 2-0 Yes 600mg Q.00677966 Take 1 [facility] (NEURONTIN) 06-[id number] 600 mg 22:14: 3D (600 mg [facility]osp[facility] tablet 00 total) by l mouth 3 (three) times a day. diclofenac 2-0 Yes 75mg QD Take 1 [facility] (VOLTAREN) 06-07 tablet (75 st 75 MG EC 22:14: mg total) [facility] tablet 00 by mouth l daily. escitalopra 2022-0 Yes 20mg QD Take 1 [facility] (LEXAPRO) 8-28 tablet (20 st 20 MG 22:14: mg total) [facility]ospita tablet 00 by mouth l daily. rosuvastati 2022-0 Yes 20mg QD Take 1 [facility] n (CRESTOR) 8-28 tablet (20 st 20 mg 22:14: mg total) [facility]osp[facility] tablet 00 by mouth l daily. felodipine 2022-0 Yes 5mg QD Take 1 [facility] (PLENDIL) 5 8-28 tablet (5 st MG 24 hr 22:14: mg total) [facility] tablet 00 by mouth l daily. buPROPion 2022-0 Yes 300mg QD Take 1 [facility] XL 8-[address] (WELLBUTRIN 22:14: (300 mg Hos [facility] XL) 300 MG 00 total) by l 24 hr mouth tablet daily. ARIPiprazol 2022-0 Yes 5mg QD Take 1 [facility] e (ABILIFY) 8-28 tablet (5 st 5 MG tablet 22:14: mg total) [facility] 00 by mouth l daily. levothyroxi 2022-0 Yes 88ug QD Take 1 [facility] ne 8-28 tablet (88 st (SYNTHROID) 22:14: mcg total) [facility]ospita 88 mcg 00 by mouth l tablet daily. levothyroxi 2022-0 Yes 88ug QD Take 1 [facility] ne 8-28 tablet (88 st (SYNTHROID) 22:14: mcg total) [facility]osp[facility] 88 mcg 00 by mouth l tablet daily. omeprazole 2022-0 Yes 20mg QD Take 1 [facility] (PriLOSEC) 8-[address] 20 MG 22:14: (20 mg [facility]osp[facility] capsule 00 total) by l mouth daily. methocarbam 2022-0 Yes 500mg Q.5D Take 1 [facility] 8-[address] (ROBAXIN) 22:14: (500 mg [facility] ta 500 MG 00 total) by l tablet mouth 2 (two) times a day. traMADoL 2022-0 Yes [id number] 50mg Q.5D Take 1 [facility] (ULTRAM) 50 8-28 tablet (50 st mg tablet 22:14: mg total) [facility] 00 by mouth 2 l (two) times a day .acute pain. oxyCODone 2-0 Yes [id number] 15mg Q.37819517 Take 1 [facility] (ROXICODONE 06-07 [id number] tablet (15 st ) 15 MG 22:14: 3D mg total) [facility]pi ta immediate 00 by mouth 3 l release (three) tablet times a day .acute pain. Max Daily Amount: 45 mg omeprazole 2-0 Yes 20mg QD Take 1 [facility] (PriLOSEC) 06-[address] 20 MG 22:14: (20 mg [facility]osp[facility] capsule 00 total) by l mouth daily. gabapentin 2022-0 Yes 600mg Q.[id number] Take 1 [facility] (NEURONTIN) 06-[id number] 600 mg 22:14: 3D (600 mg [facility] tablet 00 total) by l mouth 3 (three) times a day. diclofenac 2-0 Yes 75mg QD Take 1 [facility] (VOLTAREN) 06-07 tablet (75 st 75 MG EC 22:14: mg total) [facility]osp [facility] tablet 00 by mouth l daily. escitalopra 2022-0 Yes 20mg QD Take 1 [facility] (LEXAPRO) 06-07 tablet (20 st 20 MG 22:14: mg total) [facility]ospita tablet 00 by mouth l daily. rosuvastati 2022-0 Yes 20mg QD Take 1 [facility] n (CRESTOR) 8-28 tablet (20 st 20 mg 22:14: mg total) [facility]osp[facility] tablet 00 by mouth l daily. felodipine 2022-0 Yes 5mg QD Take 1 [facility] (PLENDIL) 5 06-07 tablet (5 st MG 24 hr 22:14: mg total) [facility]osp [facility] tablet 00 by mouth l daily. buPROPion 2022-0 Yes 300mg QD Take 1 [facility] XL -[address] (WELLBUTRIN 22:14: (300 mg Hos [facility] XL) 300 MG 00 total) by l 24 hr mouth tablet daily. ARIPiprazol 2022-0 Yes 5mg QD Take 1 [facility] e (ABILIFY) 8-28 tablet (5 st 5 MG tablet 22:14: mg total) [facility] 00 by mouth l daily. methocarbam 2022-0 Yes 500mg Q.5D Take 1 [facility] 8-[address] (ROBAXIN) 22:14: (500 mg Hospi ta 500 MG 00 total) by l tablet mouth 2 (two) times a day. traMADoL 2022-0 Yes [id number] 50mg Q.5D Take 1 [facility] (ULTRAM) 50 8-28 tablet (50 st mg tablet 22:14: mg total) [facility] 00 by mouth 2 l (two) times a day .acute pain. levothyroxi 2-0 Yes 88ug QD Take 1 [facility] ne 8-28 tablet (88 st (SYNTHROID) 22:14: mcg total) [facility]ospita 88 mcg 00 by mouth l tablet daily. omeprazole 2-0 Yes 20mg QD Take 1 [facility] (PriLOSEC) 8-[address] 20 MG 22:14: (20 mg [facility]osp[facility] capsule 00 total) by l mouth daily. methocarbam 2022-0 Yes 500mg Q.5D Take 1 [facility] 8-[address] (ROBAXIN) 22:14: (500 mg Hos[facility] ta 500 MG 00 total) by l tablet mouth 2 (two) times a day. traMADoL 2-0 Yes [id number] 50mg Q.5D Take 1 [facility] (ULTRAM) 50 8-28 tablet (50 st mg tablet 22:14: mg total) [facility] 00 by mouth 2 l (two) times a day .acute pain. oxyCODone 2-0 Yes 47882 15mg Q.30797243 Take 1 [facility] (ROXICODONE 8-28 [id number] tablet (15 st ) 15 MG 22:14: 3D mg total) Hospi ta immediate 00 by mouth 3 l release (three) tablet times a day .acute pain. Max Daily Amount: 45 mg oxyCODone 2022-0 Yes 60565 15mg Q.[id number] Take 1 [facility] (ROXICODONE 8-28 [id number] tablet (15 st ) 15 MG 22:14: 3D mg total) Hospi ta immediate 00 by mouth 3 l release (three) tablet times a day .acute pain. Max Daily Amount: 45 mg gabapentin 2022-0 Yes 600mg Q.[id number] Take 1 [facility] (NEURONTIN) 8-[id number] 600 mg 22:14: 3D (600 mg Hospita tablet 00 total) by l mouth 3 (three) times a day. diclofenac 2022-0 Yes 75mg QD Take 1 [facility] di (VOLTAREN) 8-28 tablet (75 st 75 MG EC 22:14: mg total) Hosp vick tablet 00 by mouth l daily. escitalopra 2022-0 Yes 20mg QD Take 1 Meth kathleen m (LEXAPRO) 8-28 tablet (20 st 20 MG 22:14: mg total) Hospita tablet 00 by mouth l daily. rosuvastati 2022-0 Yes 20mg QD Take 1 Meth kathleen n (CRESTOR) 8- tablet (20 st 20 mg 22:14: mg total) Hospita tablet 00 by mouth l daily. felodipine 2022-0 Yes 5mg QD Take 1 [facility] (PLENDIL) 5 06-07 tablet (5 st MG 24 hr 22:14: mg total) [facility]osp [facility]ick tablet 00 by mouth l daily. buPROPion 2022-0 Yes 300mg QD Take 1 [facility] di XL 06-[address] (WELLBUTRIN 22:14: (300 mg Hos levy XL) 300 MG 00 total) by l 24 hr mouth tablet daily. ARIPiprazol 2022-0 Yes 5mg QD Take 1 Meth kathleen e (ABILIFY) 06-07 tablet (5 st 5 MG tablet 22:14: mg total) H [facility]sp[facility] 00 by mouth l daily. gabapentin 2022-0 Yes 600mg Q.[id number] Take 1 [facility] (NEURONTIN) 06-[id number] 600 mg 22:14: 3D (600 mg Hospita tablet 00 total) by l mouth 3 (three) times a day. diclofenac 2022-0 Yes 75mg QD Take 1 [facility] (VOLTAREN) - tablet (75 st 75 MG EC 22:14: mg total) Hosp vick tablet 00 by mouth l daily. levothyroxi 2022-0 Yes 88ug QD Take 1 [facility] k[facility]leen ne - tablet (88 st (SYNTHROID) 22:14: mcg total) [facility] 88 mcg 00 by mouth l tablet daily. omeprazole 2022-0 Yes 20mg QD Take 1 [facility] (PriLOSEC) - capsule st 20 MG 22:14: (20 mg [facility] capsule 00 total) by l mouth daily. methocarbam 2022-0 Yes 500mg Q.5D Take 1 [facility] oL 8-[address] (ROBAXIN) 22:14: (500 mg [facility] 500 MG 00 total) by l tablet mouth 2 (two) times a day. traMADoL 2-0 Yes [id number] 50mg Q.5D Take 1 [facility] (ULTRAM) 50 - tablet (50 st mg tablet 22:14: mg total) [facility] 00 by mouth 2 l (two) times a day .acute pain. oxyCODone 2021-0 Yes 37526 15mg Q.[id number] Take 1 [facility] (ROXICODONE 06-07 [id number] tablet (15 st ) 15 MG 22:14: 3D mg total) [facility] immediate 00 by mouth 3 l release (three) tablet times a day .acute pain. Max Daily Amount: 45 mg escitalopra 2-0 Yes 20mg QD Take 1 [facility] k[facility]leen m (LEXAPRO) 06-07 tablet (20 st 20 MG 22:14: mg total) [facility] tablet 00 by mouth l daily. gabapentin 2021-0 Yes 600mg Q.[id number] Take 1 [facility] (NEURONTIN) 06-[id number] 600 mg 22:14: 3D (600 mg [facility] tablet 00 total) by l mouth 3 (three) times a day. diclofenac 2-0 Yes 75mg QD Take 1 [facility] (VOLTAREN) - tablet (75 st 75 MG EC 22:14: mg total) [facility] tablet 00 by mouth l daily. escitalopra 2022-0 Yes 20mg QD Take 1 [facility] m (LEXAPRO) 8-28 tablet (20 st 20 MG 22:14: mg total) [facility] tablet 00 by mouth l daily. rosuvastati 2022-0 Yes 20mg QD Take 1 [facility] kathleen n (CRESTOR) 8-28 tablet (20 st 20 mg 22:14: mg total) [facility] tablet 00 by mouth l daily. felodipine 2022-0 Yes 5mg QD Take 1 [facility] (PLENDIL) 5 06-07 tablet (5 st MG 24 hr 22:14: mg total) [facility] tablet 00 by mouth l daily. buPROPion 2022-0 Yes 300mg QD Take 1 [facility] XL 8-[address] (WELLBUTRIN 22:14: (300 mg Hos [facility] XL) 300 MG 00 total) by l 24 hr mouth tablet daily. ARIPiprazol 2022-0 Yes 5mg QD Take 1 [facility] kathleen e (ABILIFY) 8-28 tablet (5 st 5 MG tablet 22:14: mg total) [facility] 00 by mouth l daily. rosuvastati 2022-0 Yes 20mg QD Take 1 [facility] k[facility] n (CRESTOR) 8-28 tablet (20 st 20 mg 22:14: mg total) [facility] tablet 00 by mouth l daily. felodipine 2022-0 Yes 5mg QD Take 1 [facility] (PLENDIL) 5 8-28 tablet (5 st MG 24 hr 22:14: mg total) [facility] tablet 00 by mouth l daily. levothyroxi 2-0 Yes 88ug QD Take 1 [facility] kath[facility] ne 8- tablet (88 st (SYNTHROID) 22:14: mcg total) [facility] 88 mcg 00 by mouth l tablet daily. omeprazole 2-0 Yes 20mg QD Take 1 [facility] (PriLOSEC) 06-[address] 20 MG 22:14: (20 mg [facility] capsule 00 total) by l mouth daily. methocarbam 2-0 Yes 500mg Q.5D Take 1 [facility] o[facility] -[address] (ROBAXIN) 22:14: (500 mg [facility] ta 500 MG 00 total) by l tablet mouth 2 (two) times a day. traMADoL 2-0 Yes [id number] 50mg Q.5D Take 1 [facility] (ULTRAM) 50 - tablet (50 st mg tablet 22:14: mg total) [facility] 00 by mouth 2 l (two) times a day .acute pain. oxyCODone 2022-0 Yes 33240 15mg Q.[id number] Take 1 [facility] (ROXICODONE 8-28 [id number] tablet (15 st ) 15 MG 22:14: 3D mg total) [facility] immediate 00 by mouth 3 l release (three) tablet times a day .acute pain. Max Daily Amount: 45 mg buPROPion 2022-0 Yes 300mg QD Take 1 [facility] XL 8-[address] (WELLBUTRIN 22:14: (300 mg Hos [facility] XL) 300 MG 00 total) by l 24 hr mouth tablet daily. gabapentin 2022-0 Yes 600mg Q.[id number] Take 1 [facility] (NEURONTIN) [id number] 600 mg 22:14: 3D (600 mg [facility]osp[facility] tablet 00 total) by l mouth 3 (three) times a day. diclofenac 2022-0 Yes 75mg QD Take 1 [facility] (VOLTAREN) 06-07 tablet (75 st 75 MG EC 22:14: mg total) [facility] tablet 00 by mouth l daily. escitalopra 2022-0 Yes 20mg QD Take 1 [facility] m (LEXAPRO) 06-07 tablet (20 st 20 MG 22:14: mg total) [facility] tablet 00 by mouth l daily. rosuvastati 2022-0 Yes 20mg QD Take 1 [facility] kathleen n (CRESTOR) 06-07 tablet (20 st 20 mg 22:14: mg total) [facility] tablet 00 by mouth l daily. felodipine 2022-0 Yes 5mg QD Take 1 [facility] (PLENDIL) 5 06-07 tablet (5 st MG 24 hr 22:14: mg total) [facility] tablet 00 by mouth l daily. buPROPion 2022-0 Yes 300mg QD Take 1 [facility] XL 06-[address] (WELLBUTRIN 22:14: (300 mg [facility] XL) 300 MG 00 total) by l 24 hr mouth tablet daily. ARIPiprazol 2022-0 Yes 5mg QD Take 1 [facility] k[facility] e (ABILIFY) 06-07 tablet (5 st 5 MG tablet 22:14: mg total) [facility] 00 by mouth l daily. ARIPiprazol 2022-0 Yes 5mg QD Take 1 [facility] e (ABILIFY) 8- tablet (5 st 5 MG tablet 22:14: mg total) [facility] 00 by mouth l daily. levothyroxi 2022-0 Yes 88ug QD Take 1 [facility] ne - tablet (88 st (SYNTHROID) 22:14: mcg total) [facility] 88 mcg 00 by mouth l tablet daily. omeprazole 2022-0 Yes 20mg QD Take 1 [facility] (PriLOSEC) 06-[address] 20 MG 22:14: (20 mg [facility] capsule 00 total) by l mouth daily. methocarbam 2021-0 Yes 500mg Q.5D Take 1 [facility] oL - tablet st (ROBAXIN) 22:14: (500 mg [facility] ta 500 MG 00 total) by l tablet mouth 2 (two) times a day. traMADoL 2021-0 Yes [id number] 50mg Q.5D Take 1 [facility] (ULTRAM) 50 06-07 tablet (50 st mg tablet 22:14: mg total) [facility] 00 by mouth 2 l (two) times a day .acute pain. oxyCODone 2021-0 Yes 27253 15mg Q.[id number] Take 1 [facility] (ROXICODONE 06-07 [id number] tablet (15 st ) 15 MG 22:14: 3D mg total) [facility] immediate 00 by mouth 3 l release (three) tablet times a day .acute pain. Max Daily Amount: 45 mg gabapentin 2021-0 Yes 600mg Q.[id number] Take 1 [facility] (NEURONTIN) 06-[id number] 600 mg 22:14: 3D (600 [...] QD Take 1 [facility] k[facility] n (CRESTOR) - tablet (20 st 20 mg 22:14: mg total) [facility] tablet 00 by mouth l daily. felodipine 2-0 Yes 5mg QD Take 1 [facility] (PLENDIL) 5 06-07 tablet (5 st MG 24 hr 22:14: mg total) [facility] tablet 00 by mouth l daily. buPROPion 2022-0 Yes 300mg QD Take 1 [facility] XL -[address] (WELLBUTRIN 22:14: (300 mg [facility] XL) 300 MG 00 total) by l 24 hr mouth tablet daily. ARIPiprazol 2021-0 Yes 5mg QD Take 1 [facility] k[facility] e (ABILIFY) 06-07 tablet (5 st 5 MG tablet 22:14: mg total) [facility] 00 by mouth l daily. levothyroxi 2021-0 Yes 88ug QD Take 1 [facility] k[facility] ne 06-07 tablet (88 st (SYNTHROID) 22:14: mcg total) [facility] 88 mcg 00 by mouth l tablet daily. omeprazole 2021-0 Yes 20mg QD Take 1 [facility] (PriLOSEC) 06-[address] 20 MG 22:14: (20 mg [facility] capsule 00 total) by l mouth daily. methocarbam 2021-0 Yes 500mg Q.5D Take 1 [facility] oL 06-[address] (ROBAXIN) 22:14: (500 mg [facility] ta 500 MG 00 total) by l tablet mouth 2 (two) times a day. traMADoL 2021-0 Yes [id number] 50mg Q.5D Take 1 [facility] (ULTRAM) 50 06-07 tablet (50 st mg tablet 22:14: mg total) [facility] 00 by mouth 2 l (two) times a day .acute pain. oxyCODone 2021-0 Yes [id number] 15mg Q.16434139 Take 1 [facility] (ROXICODONE 06-07 [id number] tablet (15 st ) 15 MG 22:14: 3D mg total) [facility] immediate 00 by mouth 3 l release (three) tablet times a day .acute pain. Max Daily Amount: 45 mg gabapentin 2021-0 Yes 600mg Q.[id number] Take 1 [facility] (NEURONTIN) 06-[id number] 600 mg 22:14: 3D (600 [...] tablet 00 by mouth l daily. rosuvastati 2022-0 Yes 20mg QD Take 1 [facility] k[facility]leen n (CRESTOR) 8-28 tablet (20 st 20 mg 22:14: mg total) [facility] tablet 00 by mouth l daily. felodipine 2022-0 Yes 5mg QD Take 1 [facility] (PLENDIL) 5 06-07 tablet (5 st MG 24 hr 22:14: mg total) [facility] tablet 00 by mouth l daily. buPROPion 2022-0 Yes 300mg QD Take 1 [facility] di XL - tablet st (WELLBUTRIN 22:14: (300 mg [facility] XL) 300 MG 00 total) by l 24 hr mouth tablet daily. ARIPiprazol 2022-0 Yes 5mg QD Take 1 [facility] e (ABILIFY) 06-07 tablet (5 st 5 MG tablet 22:14: mg total) [facility] 00 by mouth l daily. levothyroxi 2-0 Yes 88ug QD Take 1 [facility] k[facility] ne 06-07 tablet (88 st (SYNTHROID) 22:14: mcg total) [facility] 88 mcg 00 by mouth l tablet daily. omeprazole 2021-0 Yes 20mg QD Take 1 [facility] (PriLOSEC) 06-[address] 20 MG 22:14: (20 mg [facility] capsule 00 total) by l mouth daily. methocarbam 2021-0 Yes 500mg Q.5D Take 1 [facility] o[facility] 06-[address] (ROBAXIN) 22:14: (500 mg [facility] ta 500 MG 00 total) by l tablet mouth 2 (two) times a day. traMADoL 2-0 Yes [id number] 50mg Q.5D Take 1 [facility] (ULTRAM) 50 06-07 tablet (50 st mg tablet 22:14: mg total) [facility] 00 by mouth 2 l (two) times a day .acute pain. oxyCODone 2021-0 Yes 65837 15mg Q.[id number] Take 1 [facility] (ROXICODONE 06-07 [id number] tablet (15 st ) 15 MG 22:14: 3D mg total) [facility] immediate 00 by mouth 3 l release (three) tablet times a day .acute pain. Max Daily Amount: 45 mg gabapentin 2-0 Yes 600mg Q.57241632 Take 1 [facility] (NEURONTIN) 06-[id number] 600 mg 22:14: 3D (600 [...] tablet 00 by mouth l daily. rosuvastati 2021-0 Yes 20mg QD Take 1 [facility] n (CRESTOR) 06-07 tablet (20 st 20 mg 22:14: mg total) [facility]osp[facility] tablet 00 by mouth l daily. felodipine 2021-0 Yes 5mg QD Take 1 [facility] (PLENDIL) 5 06-07 tablet (5 st MG 24 hr 22:14: mg total) [facility] tablet 00 by mouth l daily. buPROPion 0 Yes 300mg QD Take 1 [facility] XL 06-[address] (WELLBUTRIN 22:14: (300 mg Hos [facility] XL) 300 MG 00 total) by l 24 hr mouth tablet daily. ARIPiprazol 0 Yes 5mg QD Take 1 [facility] e (ABILIFY) 06-07 tablet (5 st 5 MG tablet 22:14: mg total) [facility] 00 by mouth l daily. vortioxetin 2021-0 2021- No 10mg QD Take 10 mg [facility] 06-[address] (TRINTELLIX 18:46: 00:00 daily. Hos [facility] ) 10 mg 00 :00 l tablet vortioxetin 2021-0 2021- No 10mg QD Take 10 mg [facility] 06-[address] (TRINTELLIX 18:46: 00:00 daily. Hos [facility] ) 10 mg 00 :00 l tablet vortioxetin 2021-0 2021- No 10mg QD Take 10 mg [facility] 06-[address] (TRINTELLIX 18:46: 00:00 daily. Hos [facility] ) 10 mg 00 :00 l tablet vortioxetin 2021-0 2021- No 10mg QD Take 10 mg [facility] 06-[address] (TRINTELLIX 18:46: 00:00 daily. Hos [facility] ) 10 mg 00 :00 l tablet vortioxetin 2021-0 2- No 10mg QD Take 10 mg [facility] 06-06- by mouth st (TRINTELLIX 18:46: 00:00 daily. Hos [facility] ) 10 mg 00 :00 l tablet vortioxetin 2021-0 2021- No 10mg QD Take 10 mg [facility] 06-06- by mouth st (TRINTELLIX 18:46: 00:00 daily. Hos [facility] ) 10 mg 00 :00 l tablet vortioxetin 2021-0 2021- No 10mg QD Take 10 mg [facility] 06-[address] (TRINTELLIX 18:46: 00:00 daily. Hos [facility] ) 10 mg 00 :00 l tablet vortioxetin 2021-0 2021- No 10mg QD Take 10 mg [facility] 06-[address] (TRINTELLIX 18:46: 00:00 daily. Hos [facility] ) 10 mg 00 :00 l tablet vortioxetin 2021-0 2021- No 10mg QD Take 10 mg [facility] 06-06- by mouth st (TRINTELLIX 18:46: 00:00 daily. Hos [facility] ) 10 mg 00 :00 l tablet vortioxetin 2021-0 2- No 10mg QD Take 10 mg [facility] 06-06- by mouth st (TRINTELLIX 18:46: 00:00 daily. Hos [facility] ) 10 mg 00 :00 l tablet vortioxetin 2021-0 2- No 10mg QD Take 10 mg [facility] 06-06- by mouth st (TRINTELLIX 18:46: 00:00 daily. Hos [facility] ) 10 mg 00 :00 l tablet vortioxetin 2021-0 2022- No 10mg QD Take 10 mg [facility] 06-06- by mouth st (TRINTELLIX 18:46: 00:00 daily. Hos [facility] ) 10 mg 00 :00 l tablet vortioxetin 0 2- No 10mg QD Take 10 mg [facility] 06-[address] (TRINTELLIX 18:46: 00:00 daily. Hos [facility] ) 10 mg 00 :00 l tablet vortioxetin 2021-0 2- No 10mg QD Take 10 mg [facility] 06-[address] (TRINTELLIX 18:46: 00:00 daily. Hos [facility] ) 10 mg 00 :00 l tablet vortioxetin 2021-0 2022- No 10mg QD Take 10 mg [facility] 06-[address] (TRINTELLIX 18:46: 00:00 daily. Hos [facility] ) 10 mg 00 :00 l tablet vortioxetin 2021-0 2022- No 10mg QD Take 10 mg [facility] 06-[address] (TRINTELLIX 18:46: 00:00 daily. Hos [facility] ) 10 mg 00 :00 l tablet vortioxetin 0 2021- No 10mg QD Take 10 mg [facility] 06-[address] (TRINTELLIX 18:46: 00:00 daily. Hos [facility] ) 10 mg 00 :00 l tablet sertraline 2021-0 2- No 50mg QD Take 50 mg [facility] (ZOLOFT) 50 06-[address] MG tablet 18:45: 00:00 daily. [facility] ta 51 :00 l sertraline 2021-0 2022- No 50mg QD Take 50 mg [facility] (ZOLOFT) 50 06-06- by mouth st MG tablet 18:45: 00:00 daily. [facility] 51 :00 l sertraline 2021-0 2022- No 50mg QD Take 50 mg [facility] (ZOLOFT) 50 06-06- by mouth st MG tablet 18:45: 00:00 daily. [facility] 51 :00 l sertraline 2021-0 2022- No 50mg QD Take 50 mg [facility] (ZOLOFT) 50 06-06- by mouth st MG tablet 18:45: 00:00 daily. [facility] 51 :00 l sertraline 2022-0 2022- No 50mg QD Take 50 mg [facility] (ZOLOFT) 50 06-[address] MG tablet 18:45: 00:00 daily. [facility] 51 :00 l sertraline 2022-0 2022- No 50mg QD Take 50 mg [facility] (ZOLOFT) 50 06-[address] MG tablet 18:45: 00:00 daily. [facility] 51 :00 l sertraline 2022-0 2022- No 50mg QD Take 50 mg [facility] (ZOLOFT) 50 06-06- by mouth st MG tablet 18:45: 00:00 daily. [facility] 51 :00 l sertraline 2022-0 2022- No 50mg QD Take 50 mg [facility] (ZOLOFT) 50 06-[address] MG tablet 18:45: 00:00 daily. [facility] 51 :00 l sertraline 2022-0 2022- No 50mg QD Take 50 mg [facility] (ZOLOFT) 50 06-[address] MG tablet 18:45: 00:00 daily. [facility] 51 :00 l sertraline 2-0 2022- No 50mg QD Take 50 mg [facility] (ZOLOFT) 50 06-[address] MG tablet 18:45: 00:00 daily. [facility] 51 :00 l sertraline 2022-0 2022- No 50mg QD Take 50 mg [facility] (ZOLOFT) 50 06-[address] MG tablet 18:45: 00:00 daily. [facility] 51 :00 l sertraline 2022-0 2022- No 50mg QD Take 50 mg [facility] (ZOLOFT) 50 06-06- by mouth st MG tablet 18:45: 00:00 daily. [facility] 51 :00 l sertraline 2022-0 2022- No 50mg QD Take 50 mg [facility] (ZOLOFT) 50 06-06- by mouth st MG tablet 18:45: 00:00 daily. [facility] 51 :00 l sertraline 2022-0 2022- No 50mg QD Take 50 mg [facility] (ZOLOFT) 50 06-[address] MG tablet 18:45: 00:00 daily. [facility] 51 :00 l sertraline 2-0 2022- No 50mg QD Take 50 mg [facility] (ZOLOFT) 50 06-[address] MG tablet 18:45: 00:00 daily. [facility] 51 :00 l sertraline 2-0 2022- No 50mg QD Take 50 mg [facility] (ZOLOFT) 50 06-[address] MG tablet 18:45: 00:00 daily. [facility] 51 :00 l sertraline 2-0 2022- No 50mg QD Take 50 mg [facility] (ZOLOFT) 50 06-[address] MG tablet 18:45: 00:00 daily. [facility] 51 :00 l methylpheni 2-0 2022- No 54mg QD Take 54 mg [facility] date HCl 06-[address] (CONCERTA) 18:45: 00:00 every [facility] 54 MG CR 32 :00 morning. l tablet methylpheni 2-0 2022- No 54mg QD Take 54 mg [facility] date HCl 06-[address] (CONCERTA) 18:45: 00:00 every [facility] 54 MG CR 32 :00 morning. l tablet methylpheni 2-0 2022- No 54mg QD Take 54 mg [facility] date HCl 06-[address] (CONCERTA) 18:45: 00:00 every [facility] 54 MG CR 32 :00 morning. l tablet methylpheni 2022-0 2022- No 54mg QD Take 54 mg [facility] date HCl 06-[address] (CONCERTA) 18:45: 00:00 every [facility] ta 54 MG CR 32 :00 morning. l tablet methylpheni 2022-0 2022- No 54mg QD Take 54 mg [facility] date HCl 06-[address] (CONCERTA) 18:45: 00:00 every [facility] ta 54 MG CR 32 :00 morning. l tablet methylpheni 2022-0 2022- No 54mg QD Take 54 mg [facility] date HCl 06-[address] (CONCERTA) 18:45: 00:00 every Hos[facility] 54 MG CR 32 :00 morning. l tablet methylpheni 2022-0 2022- No 54mg QD Take 54 mg [facility] date HCl 06-[address] (CONCERTA) 18:45: 00:00 every [facility] 54 MG CR 32 :00 morning. l tablet methylpheni 2022-0 2022- No 54mg QD Take 54 mg [facility] date HCl 06-[address] (CONCERTA) 18:45: 00:00 every [facility] 54 MG CR 32 :00 morning. l tablet methylpheni 2022-0 2022- No 54mg QD Take 54 mg [facility] date HCl 06-[address] (CONCERTA) 18:45: 00:00 every [facility] 54 MG CR 32 :00 morning. l tablet methylpheni 2022-0 2022- No 54mg QD Take 54 mg [facility] date HCl 06-[address] (CONCERTA) 18:45: 00:00 every [facility] 54 MG CR 32 :00 morning. l tablet methylpheni 2-0 2022- No 54mg QD Take 54 mg [facility] date HCl 06-[address] (CONCERTA) 18:45: 00:00 every [facility] 54 MG CR 32 :00 morning. l tablet methylpheni 2-0 2022- No 54mg QD Take 54 mg [facility] date HCl 06-[address] (CONCERTA) 18:45: 00:00 every [facility] 54 MG CR 32 :00 morning. l tablet methylpheni 2-0 2022- No 54mg QD Take 54 mg [facility] date HCl 06-[address] (CONCERTA) 18:45: 00:00 every [facility] 54 MG CR 32 :00 morning. l tablet methylpheni 2022-0 2022- No 54mg QD Take 54 mg [facility] date HCl 06-[address] (CONCERTA) 18:45: 00:00 every [facility] 54 MG CR 32 :00 morning. l tablet methylpheni 2022-0 2022- No 54mg QD Take 54 mg [facility] date HCl 06-[address] (CONCERTA) 18:45: 00:00 every [facility] 54 MG CR 32 :00 morning. l tablet methylpheni 2022-0 2022- No 54mg QD Take 54 mg [facility] date HCl 06-[address] (CONCERTA) 18:45: 00:00 every [facility] 54 MG CR 32 :00 morning. l tablet methylpheni 2021- No 54mg QD Take 54 mg [facility] date HCl 06-[address] (CONCERTA) 18:45: 00:00 every [facility] 54 MG CR 32 :00 morning. l tablet omeprazole 2021- No 40mg QD Take 40 mg [facility] (PriLOSEC) 06-[address] 40 MG 18:44: 00:00 daily [facility] capsule 55 :00 before l breakfast. omeprazole 2021-2021- No 40mg QD Take 40 mg [facility] (PriLOSEC) 06-[address] 40 MG 18:44: 00:00 daily [facility] capsule 55 :00 before l breakfast. omeprazole 2021-2021- No 40mg QD Take 40 mg [facility] (PriLOSEC) 06-[address] 40 MG 18:44: 00:00 daily [facility] capsule 55 :00 before l breakfast. omeprazole 2021-0 2021- No 40mg QD Take 40 mg [facility] (PriLOSEC) 06-[address] 40 MG 18:44: 00:00 daily [facility] capsule 55 :00 before l breakfast. omeprazole 2021-2021- No 40mg QD Take 40 mg [facility] (PriLOSEC) 06-[address] 40 MG 18:44: 00:00 daily [facility] capsule 55 :00 before l breakfast. omeprazole 2021-0 2- No 40mg QD Take 40 mg [facility] (PriLOSEC) 06-[address] 40 MG 18:44: 00:00 daily [facility] capsule 55 :00 before l breakfast. omeprazole 2021-0 2- No 40mg QD Take 40 mg [facility] (PriLOSEC) 06-[address] 40 MG 18:44: 00:00 daily [facility] capsule 55 :00 before l breakfast. omeprazole 2021-0 2- No 40mg QD Take 40 mg [facility] (PriLOSEC) 06-[address] 40 MG 18:44: 00:00 daily [facility] capsule 55 :00 before l breakfast. omeprazole 2021-0 2- No 40mg QD Take 40 mg [facility] (PriLOSEC) 06-[address] 40 MG 18:44: 00:00 daily [facility] capsule 55 :00 before l breakfast. omeprazole 2021-0 2022- No 40mg QD Take 40 mg [facility] (PriLOSEC) 06-[address] 40 MG 18:44: 00:00 daily [facility] capsule 55 :00 before l breakfast. omeprazole 2021-0 2022- No 40mg QD Take 40 mg [facility] (PriLOSEC) 06-[address] 40 MG 18:44: 00:00 daily [facility] capsule 55 :00 before l breakfast. omeprazole 2021-0 2- No 40mg QD Take 40 mg [facility] (PriLOSEC) 06-[address] 40 MG 18:44: 00:00 daily [facility] capsule 55 :00 before l breakfast. omeprazole 2021-0 2- No 40mg QD Take 40 mg [facility] (PriLOSEC) 06-[address] 40 MG 18:44: 00:00 daily [facility] capsule 55 :00 before l breakfast. omeprazole 2021-0 2- No 40mg QD Take 40 mg [facility] (PriLOSEC) 06-[address] 40 MG 18:44: 00:00 daily [facility] capsule 55 :00 before l breakfast. omeprazole 2021-0 2022- No 40mg QD Take 40 mg [facility] (PriLOSEC) 06-[address] 40 MG 18:44: 00:00 daily [facility] capsule 55 :00 before l breakfast. omeprazole 2021-0 2022- No 40mg QD Take 40 mg [facility] (PriLOSEC) 06-[address] 40 MG 18:44: 00:00 daily [facility] capsule 55 :00 before l breakfast. omeprazole 2021-0 2022- No 40mg QD Take 40 mg [facility] (PriLOSEC) 06-[address] 40 MG 18:44: 00:00 daily [facility] capsule 55 :00 before l breakfast. clonAZEPAM 2022-0 2022- No 1mg Q.[id number] Take 1 mg [facility] (KlonoPIN) 06-06 [id number] by mouth [address] 1 MG tablet 18:44: 00:00 3D (three) [facility] 34 :00 times a l day. clonAZEPAM 2022-0 2022- No 1mg Q.89639831 Take 1 mg [facility] (KlonoPIN) 06-06 [id number] [address] mouth [address] 1 MG tablet 18:44: 00:00 3D (three) [facility] 34 :00 times a l day. clonAZEPAM 2022-0 2022- No 1mg Q.[id number] Take 1 mg [facility] (KlonoPIN) 06-06 [id number] [address] mouth [address] 1 MG tablet 18:44: 00:00 3D (three) [facility] 34 :00 times a l day. clonAZEPAM 2022-0 2022- No 1mg Q.12938473 Take 1 mg [facility] (KlonoPIN) 06-06 [id number] [address] mouth [address] 1 MG tablet 18:44: 00:00 3D (three) [facility] 34 :00 times a l day. clonAZEPAM 2022-0 2022- No 1mg Q.[id number] Take 1 mg [facility] (KlonoPIN) 06-06 [id number] [address] mouth [address] 1 MG tablet 18:44: 00:00 3D (three) [facility] 34 :00 times a l day. clonAZEPAM 2022-0 2022- No 1mg Q.89894135 Take 1 mg [facility] (KlonoPIN) 06-06 [id number] mouth [address] 1 MG tablet 18:44: 00:00 3D (three) [facility] 34 :00 times a l day. clonAZEPAM 2022-0 2022- No 1mg Q.[id number] Take 1 mg [facility] (KlonoPIN) 06-06 [id number] [address] mouth [address] 1 MG tablet 18:44: 00:00 3D (three) [facility] 34 :00 times a l day. clonAZEPAM 2022-0 2022- No 1mg Q.[id number] Take 1 mg [facility] (KlonoPIN) 06-06 [id number] [address] mouth [address] 1 MG tablet 18:44: 00:00 3D (three) [facility] 34 :00 times a l day. clonAZEPAM 2022-0 2022- No 1mg Q.[id number] Take 1 mg [facility] (KlonoPIN) 06-06 [id number] [address] mouth [address] 1 MG tablet 18:44: 00:00 3D (three) [facility] 34 :00 times a l day. clonAZEPAM 2022-0 2022- No 1mg Q.[id number] Take 1 mg [facility] (KlonoPIN) 06-06 [id number] [address] mouth [address] 1 MG tablet 18:44: 00:00 3D (three) [facility] 34 :00 times a l day. clonAZEPAM 2022-0 2022- No 1mg Q.04328439 Take 1 mg [facility] (KlonoPIN) 06-06 [id number] [address] mouth [address] 1 MG tablet 18:44: 00:00 3D (three) [facility] 34 :00 times a l day. clonAZEPAM 2022-0 2022- No 1mg Q.[id number] Take 1 mg [facility] (KlonoPIN) 06-06 [id number] [address] mouth [address] 1 MG tablet 18:44: 00:00 3D (three) [facility] 34 :00 times a l day. clonAZEPAM 2022-0 2022- No 1mg Q.[id number] Take 1 mg [facility] (KlonoPIN) 06-06 [id number] [address] mouth [address] 1 MG tablet 18:44: 00:00 3D (three) [facility] 34 :00 times a l day. clonAZEPAM 2022-0 2022- No 1mg Q.[id number] Take 1 mg [facility] (KlonoPIN) 06-06- [id number] by mouth 3 st 1 MG tablet 18:44: 00:00 3D (three) [facility] 34 :00 times a l day. clonAZEPAM 2022-0 2022- No 1mg Q.[id number] Take 1 mg [facility] (KlonoPIN) 06-06 [id number] [address] mouth [address] 1 MG tablet 18:44: 00:00 3D (three) [facility] 34 :00 times a l day. clonAZEPAM 2021-2021- No 1mg Q.[id number] Take 1 mg [facility] (KlonoPIN) 06-06- [id number] by mouth 3 st 1 MG tablet 18:44: 00:00 3D (three) [facility] 34 :00 times a l day. clonAZEPAM 2021-2021- No 1mg Q.[id number] Take 1 mg [facility] (KlonoPIN) 8-06 06- [id number] by mouth 3 [address] 1 MG tablet 18:44: 00:00 3D (three) [facility] 34 :00 times a l day. levothyroxi 2021- No 75ug QD Take 75 [facility] 8-27 08-[address] (SYNTHROID, 18:44: 00:00 mouth [facility] LEVOXYL) 75 09 :00 every l mcg tablet morning. levothyroxi 2021- No 75ug QD Take 75 Me thodi ne 8-27 08-[address] (SYNTHROID, 18:44: 00:00 [facility] LEVOXYL) 75 09 :00 every l mcg tablet morning. levothyroxi 2021- No 75ug QD Take 75 Me thodi ne 8-27 08-[address] (SYNTHROID, 18:44: 00:00 [facility] LEVOXYL) 75 09 :00 every l mcg tablet morning. levothyroxi 2021-2021- No 75ug QD Take 75 Me thodi ne 8-27 08-[address] (SYNTHROID, 18:44: 00:00 [facility] LEVOXYL) 75 09 :00 every l mcg tablet morning. levothyroxi 2021-2021- No 75ug QD Take 75 Me thodi ne 8-27 08-[address] (SYNTHROID, 18:44: 00:00 [facility] LEVOXYL) 75 09 :00 every l mcg tablet morning. levothyroxi 2021-2021- No 75ug QD Take 75 Me thodi ne 8-27 08-[address] (SYNTHROID, 18:44: 00:00 [facility] LEVOXYL) 75 09 :00 every l mcg tablet morning. levothyroxi 2021-2021- No 75ug QD Take 75 Me [facility] ne 8-27 08-[address] (SYNTHROID, 18:44: 00:00 [facility] LEVOXYL) 75 09 :00 every l mcg tablet morning. levothyroxi 2021-2021- No 75ug QD Take 75 Me [facility] ne 8-27 08-[address] (SYNTHROID, 18:44: 00:00 [facility] LEVOXYL) 75 09 :00 every l mcg tablet morning. levothyroxi 2021-2021- No 75ug QD Take 75 Me [facility]odi ne 8-27 08-[address] (SYNTHROID, 18:44: 00:00 [facility] LEVOXYL) 75 09 :00 every l mcg tablet morning. levothyroxi 2021-2021- No 75ug QD Take 75 Me [facility]odi ne 8-27 08-[address] (SYNTHROID, 18:44: 00:00 [facility] LEVOXYL) 75 09 :00 every l mcg tablet morning. levothyroxi 2021-2021- No 75ug QD Take 75 Me [facility] ne 8-27 08-[address] (SYNTHROID, 18:44: 00:00 [facility] LEVOXYL) 75 09 :00 every l mcg tablet morning. levothyroxi 2021- No 75ug QD Take 75 Me [facility]odi ne 8-27 08-[address] (SYNTHROID, 18:44: 00:00 [facility] LEVOXYL) 75 09 :00 every l mcg tablet morning. levothyroxi 2021- No 75ug QD Take 75 Me [facility]odi ne 8-27 08-[address] (SYNTHROID, 18:44: 00:00 [facility] LEVOXYL) 75 09 :00 every l mcg tablet morning. levothyroxi 2021-2021- No 75ug QD Take 75 Me [facility] ne 8-27 08-[address] (SYNTHROID, 18:44: 00:00 [facility] LEVOXYL) 75 09 :00 every l mcg tablet morning. levothyroxi 2021- No 75ug QD Take 75 Me [facility]odi ne 06-06 08-[address] (SYNTHROID, 18:44: 00:00 [facility] LEVOX[facility] 75 09 :00 every l mcg tablet morning. levothyroxi 2021- No 75ug QD Take 75 [facility] ne 06-06 08-[address] (SYNTHROID, 18:44: 00:00 [facility] LEVOXYL) 75 09 :00 every l mcg tablet morning. levothyroxi 2021- No 75ug QD Take 75 [facility] 06-06 08-[address] (SYNTHROID, 18:44: 00:00 [facility] LEVOXYL) 75 09 :00 every l mcg tablet morning. predniSONE 2021- No 20mg QD Take 1 Meth kathleen (DELTASONE) 06-06 tablet (20 s t 20 mg 00:00: 04:59 mg total) [facility] tablet 00 :00 by mouth l daily for 5 days. predniSONE 2021- No 20mg QD Take 1 Meth kathleen (DELTASONE) 06-06 tablet (20 s t 20 mg 00:00: 04:59 mg total) Hospit a tablet 00 :00 by mouth l daily for 5 days. predniSONE 2021- No 20mg QD Take 1 Meth k[facility]leen (DELTASONE) 06-06 tablet (20 s t 20 mg 00:00: 04:59 mg total) Hospit a tablet 00 :00 by mouth l daily for 5 days. predniSONE 2021- No 20mg QD Take 1 Meth [facility] (DELTASONE) 06-06 tablet (20 s t 20 mg 00:00: 04:59 mg total) Hospit a tablet 00 :00 by mouth l daily for 5 days. predniSONE 2021- No 20mg QD Take 1 Meth [facility]leen (DELTASONE) 06-06 tablet (20 s t 20 mg 00:00: 04:59 mg total) Hospit a tablet 00 :00 by mouth l daily for 5 days. predniSONE 2021- No 20mg QD Take 1 Meth [facility]leen (DELTASONE) 06-06 tablet (20 s t 20 mg 00:00: 04:59 mg total) Hospit a tablet 00 :00 by mouth l daily for 5 days. predniSONE 2021-2021- No 20mg QD Take 1 Meth [facility] (DELTASONE) 06-06 tablet (20 s t 20 mg 00:00: 04:59 mg total) Hospit a tablet 00 :00 by mouth l daily for 5 days. predniSONE 2021-2021- No 20mg QD Take 1 Meth [facility] (DELTASONE) 06-06 tablet (20 s t 20 mg 00:00: 04:59 mg total) Hospit a tablet 00 :00 by mouth l daily for 5 days. predniSONE 2021- No 20mg QD Take 1 Meth [facility] (DELTASONE) 06-06 tablet (20 s t 20 mg 00:00: 04:59 mg total) Hospit a tablet 00 :00 by mouth l daily for 5 days. predniSONE 2021- No 20mg QD Take 1 Meth [facility] (DELTASONE) 06-06 tablet (20 s t 20 mg 00:00: 04:59 mg total) Hospit a tablet 00 :00 by mouth l daily for 5 days. predniSONE 2021- No 20mg QD Take 1 Meth [facility] (DELTASONE) 06-06 tablet (20 s t 20 mg 00:00: 04:59 mg total) Hospit a tablet 00 :00 by mouth l daily for 5 days. predniSONE 2021- No 20mg QD Take 1 Meth [facility] (DELTASONE) 06-06 tablet (20 s t 20 mg 00:00: 04:59 mg total) Hospit a tablet 00 :00 by mouth l daily for 5 days. predniSONE 2021-2021- No 20mg QD Take 1 Meth [facility] (DELTASONE) 06-06 tablet (20 s t 20 mg 00:00: 04:59 mg total) Hospit a tablet 00 :00 by mouth l daily for 5 days. predniSONE 2021- No 20mg QD Take 1 Meth [facility] (DELTASONE) 06-06 tablet (20 s t 20 mg 00:00: 04:59 mg total) Hospit a tablet 00 :00 by mouth l daily for 5 days. predniSONE 2021-0 2021- No 20mg QD Take 1 Meth [facility] (DELTASONE) 06-06 tablet (20 s t 20 mg 00:00: 04:59 mg total) Hospit a tablet 00 :00 by mouth l daily for 5 days. predniSONE 2021-0 2021- No 20mg QD Take 1 Meth [facility] (DELTASONE) 06-06 tablet (20 s t 20 mg 00:00: 04:59 mg total) Hospit a tablet 00 :00 by mouth l daily for 5 days. predniSONE 2021-0 2021- No 20mg QD Take 1 Meth [facility] (DELTASONE) 06-06 tablet (20 s t 20 mg 00:00: 04:59 mg total) Hospit a tablet 00 :00 by mouth l daily for 5 days. levothyroxi Yes [id number] 88ug Take 1 [facility] 88 mcg 8-24 tablet by [facility] o f tablet 00:00: mouth [place] 00 every Medical morning. [place] levothyroxi Yes [id number] 88ug Take 1 [facility] ne 88 mcg 8-24 tablet by ity o f tablet 00:00: mouth [place] 00 every Medical morning. [place] levothyroxi 0 Yes [id number] 88ug Take 1 [facility] ne 88 mcg 8-24 tablet by ity o f tablet 00:00: mouth [place] 00 every Medical morning. [place] levothyroxi 0 Yes [id number] 88ug Take 1 [facility] ne 88 mcg 8-24 tablet by ity o f tablet 00:00: mouth [place] 00 every Medical morning. [place] levothyroxi Yes [id number] 88ug Take 1 [facility] ne 88 mcg 8-24 tablet by ity o f tablet 00:00: mouth [place] 00 every Medical morning. Branch diclofenac 0 Yes 75mg Q.5D Take 75 mg [facility] (Voltaren) 06-01 by mouth [facility]alt [facility] 75 MG EC 00:00: in the tablet 00 morning and 75 mg before bedtime. oxyCODONE 0 Yes 15mg Q.[id number] Take 15 mg [facility] (Roxicodone 06-01 [id number] by mouth 3 Health ) 15 MG 00:00: 3D (three) immediate 00 times a release day if tablet needed. diclofenac 2022-0 Yes 75mg Q.5D Take 75 mg [facility] (Voltaren) 8-22 by mouth Healt [facility] 75 MG EC 00:00: in the tablet 00 morning and 75 mg before bedtime. oxyCODONE 2022-0 Yes 15mg Q.[id number] Take 15 mg [facility] (Roxicodone 8-22 [id number] by mouth 3 Health ) 15 MG 00:00: 3D (three) immediate 00 times a release day if tablet needed. diclofenac 2022-0 Yes 75mg Q.5D Take 75 mg [facility] (Voltaren) 8-22 by mouth Healt [facility] 75 MG EC 00:00: in the tablet 00 morning and 75 mg before bedtime. oxyCODONE 2022-0 Yes 15mg Q.[id number] Take 15 mg [facility] (Roxicodone 8-22 [id number] by mouth 3 Health ) 15 MG 00:00: 3D (three) immediate 00 times a release day if tablet needed. diclofenac 2022-0 Yes 75mg Q.5D Take 75 mg [facility] (Voltaren) 8-22 by mouth Healt [facility] 75 MG EC 00:00: in the tablet 00 morning and 75 mg before bedtime. oxyCODONE 2022-0 Yes 15mg Q.[id number] Take 15 mg [facility] (Roxicodone 8-22 [id number] by mouth 3 Health ) 15 MG 00:00: 3D (three) immediate 00 times a release day if tablet needed. diclofenac 2022-0 Yes 75mg Q.5D Take 75 mg [facility] (Voltaren) 8-22 by mouth Healt h 75 MG EC 00:00: in the tablet 00 morning and 75 mg before bedtime. oxyCODONE 2022-0 Yes 15mg Q.[id number] Take 15 mg [facility] (Roxicodone 8-22 [id number] by mouth 3 Health ) 15 MG 00:00: 3D (three) immediate 00 times a release day if tablet needed. diclofenac 2022-0 Yes 75mg Q.5D Take 75 mg [facility] (Voltaren) 8-22 by mouth Healt h 75 MG EC 00:00: in the tablet 00 morning and 75 mg before bedtime. oxyCODONE 2022-0 Yes 15mg Q.[id number] Take 15 mg [facility] (Roxicodone 8-22 [id number] by mouth 3 Health ) 15 MG 00:00: 3D (three) immediate 00 times a release day if tablet needed. diclofenac 2022-0 Yes 75mg Q.5D Take 75 mg [facility] (Voltaren) 8-22 by mouth Healt h 75 MG EC 00:00: in the tablet 00 morning and 75 mg before bedtime. oxyCODONE 2022-0 Yes 15mg Q.[id number] Take 15 mg [facility] (Roxicodone 8-22 [id number] by mouth 3 Health ) 15 MG 00:00: 3D (three) immediate 00 times a release day if tablet needed. diclofenac 2022-0 Yes 75mg Q.5D Take 75 mg [facility] (Voltaren) 8-22 by mouth Healt h 75 MG EC 00:00: in the tablet 00 morning and 75 mg before bedtime. oxyCODONE 2022-0 Yes 15mg Q.15152751 Take 15 mg [facility] (Roxicodone 8-22 [id number] by mouth 3 Health ) 15 MG 00:00: 3D (three) immediate 00 times a release day if tablet needed. buPROPion 2022-0 Yes TAKE 1 [facility] XL 8-19 TABLET BY [facility] (Wellbutrin 00:00: MOUTH XL) 150 MG 00 EVERY 24 hr MORNING tablet WITH THE 300MG buPROPion 2022-0 Yes TAKE 1 [facility] XL 8-19 TABLET BY [facility] (Wellbutrin 00:00: MOUTH XL) 150 MG 00 EVERY 24 hr MORNING tablet WITH THE 300MG buPROPion 2022-0 Yes TAKE 1 [facility] XL 8-19 TABLET BY Health (Wellbutrin 00:00: MOUTH XL) 150 MG 00 EVERY 24 hr MORNING tablet WITH THE 300MG buPROPion 2022-0 Yes TAKE 1 [facility] XL 8-19 TABLET BY [facility] (Wellbutrin 00:00: MOUTH XL) 150 MG 00 EVERY 24 hr MORNING tablet WITH THE 300MG buPROPion 2022-0 Yes TAKE 1 [facility] XL 8-19 TABLET BY [facility] (Wellbutrin 00:00: MOUTH XL) 150 MG 00 EVERY 24 hr MORNING tablet WITH THE 300MG buPROPion 2022-0 Yes TAKE 1 UT XL 8-19 TABLET BY [facility] (Wellbutrin 00:00: MOUTH XL) 150 MG 00 EVERY 24 hr MORNING tablet WITH THE 300MG buPROPion 2022-0 Yes TAKE 1 [facility] XL 8-19 TABLET BY Health (Wellbutrin 00:00: MOUTH XL) 150 MG 00 EVERY 24 hr MORNING tablet WITH THE 300MG buPROPion 2-0 Yes TAKE 1 [facility] XL 8-19 TABLET BY Health (Wellbutrin 00:00: MOUTH XL) 150 MG 00 EVERY 24 hr MORNING tablet WITH THE 300MG traMADoL 50 2021-0 Yes Univer s mg tablet 8-10 ity of 00:00: [address] traMADoL 50 2021-0 Yes Univer s mg tablet 8-10 ity of 00:00: [place] [facility] traMADoL 50 2021-0 Yes Univer s mg tablet 8-10 ity of 00:00: [address] traMADoL 50 2021-0 Yes Univer s mg tablet 8-10 ity of 00:00: [address] traMADoL 50 2021-0 Yes Univer s mg tablet 8-10 ity of 00:00: [address] traMADol 2-0 Yes 50mg Q.5D Take 50 mg UT (Ultram) 50 8-10 by mouth Heal th MG tablet 00:00: in the 00 morning and 50 mg in the evening. traMADol 2-0 Yes 50mg Q.5D Take 50 mg UT (Ultram) 50 8-10 by mouth Heal th MG tablet 00:00: in the 00 morning and 50 mg in the evening. traMADol 2-0 Yes 50mg Q.5D Take 50 mg [facility] (Ultram) 50 8-10 by mouth Heal th MG tablet 00:00: in the 00 morning and 50 mg in the evening. traMADol 2-0 Yes 50mg Q.5D Take 50 [...] and 50 mg in the evening. traMADol 2-0 Yes 50mg Q.5D Take 50 mg [facility] (Ultram) 50 8-10 by mouth Heal th MG tablet 00:00: in the 00 morning and 50 mg in the evening. traMADol 2021-0 Yes 50mg Q.5D Take 50 mg [facility] (Ultram) 50 8-10 by mouth Heal th MG tablet 00:00: in the 00 morning and 50 mg in the evening. gabapentin 2021-0 Yes [id number] 600mg Take 1 [facility] 600 mg 8-08 tablet by ity of tablet 00:00: mouth in [place] 00 the Medical morning Branch and 1 tablet at noon and 1 tablet in the evening. gabapentin 2021-0 Yes [id number] 600mg Take 1 [facility] 600 mg 8-08 tablet by ity of tablet 00:00: mouth in [place] 00 the Medical morning Branch and 1 tablet at noon and 1 tablet in the evening. gabapentin 2021-0 2021- No [id number] 600mg Take 1 [facility] 600 mg 8- 12-09 tablet by ity of tablet 00:00: 00:00 mouth in [place] 00 :00 the Medical morning Branch and 1 tablet at noon and 1 tablet in the evening. gabapentin 2021-0 2021- No [id number] 600mg Take 1 [facility] 600 mg 8- 12-09 tablet by ity of tablet 00:00: 00:00 mouth in [place] 00 :00 the Medical morning Branch and 1 tablet at noon and 1 tablet in the evening. methocarbam Yes TAKE 1 [facility] ers oL 500 mg 7-26 TABLET BY ity o f tablet 00:00: MOUTH [place] 00 TWICE Medical DAILY FOR Branch 27 DAYS oxyCODONE-a Yes TAKE 1 Univ ers cetaminophe 7-26 TABLET BY ity of n 10-325 mg 00:00: MOUTH [place] per tablet 00 THREE Medical TIMES Branch DAILY FOR 27 DAYS NEEDED methocarbam Yes TAKE 1 [facility] ers oL 500 mg 7-26 TABLET BY ity o f tablet 00:00: MOUTH [place] 00 TWICE Medical DAILY FOR Branch 27 DAYS oxyCODONE-a Yes TAKE 1 Univ ers cetaminophe 7-26 TABLET BY ity of n 10-325 mg 00:00: MOUTH [place] per tablet 00 THREE Medical TIMES Branch DAILY FOR 27 DAYS NEEDED oxyCODONE-a Yes TAKE 1 Univ ers cetaminophe 7-26 TABLET BY ity of n 10-325 mg 00:00: MOUTH [place] per tablet 00 THREE Medical TIMES Branch DAILY FOR 27 DAYS NEEDED oxyCODONE-a Yes TAKE 1 Univ ers cetaminophe 7-26 TABLET BY ity of n 10-325 mg 00:00: MOUTH [place] per tablet 00 THREE Medical TIMES Branch DAILY FOR 27 DAYS NEEDED oxyCODONE-a Yes TAKE 1 Univ ers cetaminophe 7-26 TABLET BY ity of n 10-325 mg 00:00: MOUTH [place] per tablet 00 THREE Medical TIMES Branch DAILY FOR 27 DAYS NEEDED methocarbam 2021- No TAKE 1 Uni vers oL 500 mg 7-26 12-09 TABLET BY ity of tablet 00:00: 00:00 MOUTH [place] 00 :00 TWICE Medical DAILY FOR Branch 27 DAYS methocarbam 2021-2021- No TAKE 1 Uni vers oL 500 mg 7-26 09-18 TABLET BY ity of tablet 00:00: 00:00 MOUTH [place] 00 :00 TWICE Medical DAILY FOR Branch 27 DAYS diclofenac 2021- Yes TAKE 1 Unive rs 50 mg EC 6-27 TABLET BY ity of tablet 00:00: MOUTH [place] 00 TWICE Medical DAILY FOR Branch 29 DAYS diclofenac Yes TAKE 1 Unive rs 50 mg [...] Medical DAILY FOR Branch 29 DAYS diclofenac 2021- Yes TAKE 1 Unive rs 50 mg EC 6-27 TABLET BY ity of tablet 00:00: MOUTH [place] 00 TWICE Medical DAILY FOR Branch 29 DAYS ibuprofen 2021-2021- No 600mg Take [address] [facility] (ADVIL,MOTR [...] Pain for up to 10 days. ibuprofen 2021-0 2- No 600mg Take [address] [facility] (ADVIL,MOTR 5-14 05-24 [facility]) 600 MG 00:00: 23:59 (600 mg Med ical tablet 00 :00 total) by Center mouth every 6 (six) hours as needed for Pain for up to 10 days. ibuprofen 2021-0 2- No 600mg Take [address] [facility] (ADVIL,MOTR 5-14 05-24 [facility]) 600 MG 00:00: 23:59 (600 mg Med ical tablet 00 :00 total) by Center mouth every 6 (six) hours as needed for Pain for up to 10 days. ibuprofen 2021-0 2- No 600mg Take [address] [facility] (ADVIL,MOTR 5-14 05-24 [facility]) 600 MG 00:00: 23:59 (600 mg Med ical tablet 00 :00 total) by Center mouth every 6 (six) hours as needed for Pain for up to 10 days. ibuprofen 2021-0 2- No 600mg Take [address] [facility] (ADVIL,MOTR 5-14 05-24 [facility]) 600 MG 00:00: 23:59 (600 mg Med ical tablet 00 :00 total) by Center mouth every 6 (six) hours as needed for Pain for up to 10 days. ibuprofen 2021-0 2022- No 600mg Take [address] [facility] (ADVIL,MOTR 5-14 05-24 tablet [facility]) 600 MG 00:00: 23:59 (600 mg Med ical tablet 00 :00 total) by Center mouth every 6 (six) hours as needed for Pain for up to 10 days. ibuprofen 2021-0 2022- No 600mg Take [address] [facility] (ADVIL,MOTR 5-14 05-24 tablet [facility]) 600 MG 00:00: 23:59 (600 mg Med ical tablet 00 :00 total) by Center mouth every 6 (six) hours as needed for Pain for up to 10 days. ibuprofen 202-0 2022- No 600mg Take [address] [facility] (ADVIL,MOTR 5-14 05-24 [facility]) 600 MG 00:00: 23:59 (600 mg Med ical tablet 00 :00 total) by Center mouth every 6 (six) hours as needed for Pain for up to 10 days. ibuprofen 2021-0 2021- No 600mg Take [address] [facility] (ADVIL,MOTR 5-14 05-24 [facility]) 600 MG 00:00: 23:59 (600 mg Med ical tablet 00 :00 total) by Center mouth every 6 (six) hours as needed for Pain for up to 10 days. ibuprofen 2021-0 2021- No 600mg Take [address] [facility] (ADVIL,MOTR 5-14 05-24 [facility]) 600 MG 00:00: 23:59 (600 mg Med ical tablet 00 :00 total) by Center mouth every 6 (six) hours as needed for Pain for up to 10 days. ibuprofen 2021-0 2021- No 600mg Take [address] [facility] (ADVIL,MOTR 5-14 05-24 tablet [facility]) 600 MG 00:00: 23:59 (600 mg Med ical tablet 00 :00 total) by Center mouth every 6 (six) hours as needed for Pain for up to 10 days. ibuprofen 2021-0 2021- No 600mg Take [address] [facility] (ADVIL,MOTR 5-14 05-24 tablet [facility]) 600 MG 00:00: 23:59 (600 mg Med ical tablet 00 :00 total) by Center mouth every 6 (six) hours as needed for Pain for up to 10 days. ibuprofen 0 2021- No 600mg Take [address] [facility] (ADVIL,MOTR 5-14 05-24 [facility]) 600 MG 00:00: 23:59 (600 mg Med ical tablet 00 :00 total) by Center mouth every 6 (six) hours as needed for Pain for up to 10 days. ibuprofen 2021-0 2021- No 600mg Take [address] [facility] (ADVIL,MOTR 5-14 05-24 [facility]) 600 MG 00:00: 23:59 (600 mg Med ical tablet 00 :00 total) by Center mouth every 6 (six) hours as needed for Pain for up to 10 days. ibuprofen 2021-0 2022- No 600mg Take [address] [facility] (ADVIL,MOTR 5-14 05-24 tablet [facility]) 600 MG 00:00: 23:59 (600 mg Med ical tablet 00 :00 total) by Center mouth every 6 (six) hours as needed for Pain for up to 10 days. ibuprofen 2021-0 2- No 600mg Take [address] [facility] (ADVIL,MOTR 5-14 05-24 [facility]) 600 MG 00:00: 23:59 (600 mg Med ical tablet 00 :00 total) by Center mouth every 6 (six) hours as needed for Pain for up to 10 days. ibuprofen 2021-0 2- No 600mg Take [address] [facility] (ADVIL,MOTR 5-13 05-14 [facility]) 600 MG 00:00: 00:00 (600 mg Med ical tablet 00 :00 total) by Center mouth every 6 (six) hours as needed for Pain for up to 10 days. ibuprofen 2021-0 2021- No 600mg Take [address] [facility] (ADVIL,MOTR 5-13 05-14 [facility]) 600 MG 00:00: 00:00 (600 mg Med ical tablet 00 :00 total) by Center mouth every 6 (six) hours as needed for Pain for up to 10 days. ibuprofen 2021-0 2- No 600mg Take [address] [facility] (ADVIL,MOTR 5-13 05-14 [facility]) 600 MG 00:00: 00:00 (600 mg Med ical tablet 00 :00 total) by Center mouth every 6 (six) hours as needed for Pain for up to 10 days. ibuprofen 2021-0 2- No 600mg Take [address] [facility] (ADVIL,MOTR 5-13 05-14 [facility]) 600 MG 00:00: 00:00 (600 mg Med ical tablet 00 :00 total) by Center mouth every 6 (six) hours as needed for Pain for up to 10 days. ibuprofen 2021-0 2- No 600mg Take [address] [facility] (ADVIL,MOTR 5-13 05-14 [facility]) 600 MG 00:00: 00:00 (600 mg Med ical tablet 00 :00 total) by Center mouth every 6 (six) hours as needed for Pain for up to 10 days. ibuprofen 2022-0 2- No 600mg Take [address] [facility] (ADVIL,MOTR 5-13 05-14 [facility]) 600 MG 00:00: 00:00 (600 mg Med ical tablet 00 :00 total) by Center mouth every 6 (six) hours as needed for Pain for up to 10 days. ibuprofen 2021-0 2- No 600mg Take [address] [facility] (ADVIL,MOTR 5-13 05-14 [facility]) 600 MG 00:00: 00:00 (600 mg Med ical tablet 00 :00 total) by Center mouth every 6 (six) hours as needed for Pain for up to 10 days. ibuprofen 2021-0 2021- No 600mg Take [address] [facility] (ADVIL,MOTR 5-13 05-14 [facility]) 600 MG 00:00: 00:00 (600 mg Med ical tablet 00 :00 total) by Center mouth every 6 (six) hours as needed for Pain for up to 10 days. ibuprofen 2021-0 2021- No 600mg Take [address] [facility] (ADVIL,MOTR 5-13 05-14 tablet [facility]) 600 MG 00:00: 00:00 (600 mg Med ical tablet 00 :00 total) by Center mouth every 6 (six) hours as needed for Pain for up to 10 days. ibuprofen 2021-0 2021- No 600mg Take [address] [facility] (ADVIL,MOTR 5-13 05-14 [facility]) 600 MG 00:00: 00:00 (600 mg Med ical tablet 00 :00 total) by Center mouth every 6 (six) hours as needed for Pain for up to 10 days. ibuprofen 2021-0 2- No 600mg Take [address] [facility] (ADVIL,MOTR 5-13 05-14 [facility]) 600 MG 00:00: 00:00 (600 mg Med ical tablet 00 :00 total) by Center mouth every 6 (six) hours as needed for Pain for up to 10 days. ibuprofen 2021-0 2- No 600mg Take 1 [...] every 8 (eight) hours if needed. metaxalone 2021-0 Yes 800mg Take 800 [facility] (Skelaxin) 3-28 mg by Health 800 MG 00:00: mouth tablet 00 every 8 (eight) hours if needed. metaxalone 2021-0 Yes 800mg Take 800 [facility] (Skelaxin) 3-28 mg by Health 800 MG 00:00: mouth tablet 00 every 8 (eight) hours if needed. metaxalone 2021-0 Yes 800mg Take 800 [facility] (Skelaxin) 3-28 mg by Health 800 MG 00:00: mouth tablet 00 every 8 (eight) hours if needed. metaxalone 2021-0 Yes 800mg Take 800 [facility] (Skelaxin) 3-28 mg by Health 800 MG 00:00: mouth tablet 00 every 8 (eight) hours if needed. omeprazole 2021-0 Yes [id number] 20mg Take 1 [facility] 20 mg 1-11 capsule by ity of capsule 00:00: mouth [place] 00 daily. Medical Branch liothyronin 0 Yes [id number] 5ug Take 1 [facility] e 5 mcg 1-11 tablet by ity of tablet 00:00: mouth 2 (two) Medical times Branch daily. metoprolol 2021-0 Yes [id number] 100mg Take 1 [facility] succinate 1-11 tablet by ity o f XL 100 mg 00:00: mouth [place] 24 hr 00 daily. Medical tablet Branch felodipine 2021-0 Yes [id number] 5mg Take 1 U nivers 5 mg 24 hr 1-11 tablet by ity of tablet 00:00: mouth at [place] 00 bedtime. Medical Branch rosuvastati 2021-0 Yes [id number] 20mg Take 1 [facility] n 20 mg 1-11 tablet by ity of tablet 00:00: mouth at [place] 00 bedtime. Medical Branch omeprazole 2021-0 Yes [id number] 20mg Take 1 [facility] 20 mg 1-11 capsule by ity of capsule 00:00: mouth [place] 00 daily. Medical Branch liothyronin 2021-0 Yes [id number] 5ug Take 1 [facility] e 5 mcg 1-11 tablet by ity of tablet 00:00: mouth 2 [place] 00 (two) Medical times Branch daily. metoprolol 2021-0 Yes [id number] 100mg Take 1 [facility] succinate 1-11 tablet by ity o f XL 100 mg 00:00: mouth [place] 24 hr 00 daily. Medical tablet Branch felodipine 2021-0 Yes [id number] 5mg Take 1 U nivers 5 mg 24 hr 1-11 tablet by ity of tablet 00:00: mouth at [place] 00 bedtime. Medical Branch rosuvastati 2021-0 Yes [id number] 20mg Take 1 [facility] n 20 mg 1-11 tablet by ity of tablet 00:00: mouth at [place] 00 bedtime. Medical Branch omeprazole 2021-0 Yes [id number] 20mg Take 1 [facility] 20 mg 1-11 capsule by ity of capsule 00:00: mouth [place] 00 daily. Medical Branch liothyronin 2021-0 Yes [id number] 5ug Take 1 [facility] e 5 mcg 1-11 tablet by ity of tablet 00:00: mouth 2 (two) Medical times Branch daily. metoprolol 2021-0 Yes [id number] 100mg Take 1 [facility] succinate 1-11 tablet by ity o f XL 100 mg 00:00: mouth [place] 24 hr 00 daily. Medical tablet Branch felodipine 2021-0 Yes [id number] 5mg Take 1 U nivers 5 mg 24 hr 1-11 tablet by ity of tablet 00:00: mouth at [place] 00 bedtime. Medical Branch rosuvastati 2021-0 Yes [id number] 20mg Take 1 [facility] n 20 mg 1-11 tablet by ity of tablet 00:00: mouth at [place] 00 bedtime. Medical Branch omeprazole 2021-0 Yes [id number] 20mg Take 1 [facility] 20 mg 1-11 capsule by ity of capsule 00:00: mouth [place] 00 daily. Medical Branch liothyronin 2021-0 Yes [id number] 5ug Take 1 [facility] e 5 mcg 1-11 tablet by ity of tablet 00:00: mouth 2 (two) Medical times Branch daily. metoprolol 2021-0 Yes [id number] 100mg Take 1 [facility] succinate 1-11 tablet by ity o f XL 100 mg 00:00: mouth [place] 24 hr 00 daily. Medical tablet Branch felodipine 2021-0 Yes [id number] 5mg Take 1 U nivers 5 mg 24 hr 1-11 tablet by ity of tablet 00:00: mouth at [place] [address] bedtime. Medical Branch rosuvastati 0 Yes [id number] 20mg Take 1 [facility] n 20 mg 1-11 tablet by ity of tablet 00:00: mouth at [place] [address] bedtime. Medical Branch omeprazole 2021-0 Yes [id number] 20mg Take 1 [facility] 20 mg 1-11 capsule by ity of capsule 00:00: mouth [place] 00 daily. Medical Branch liothyronin 0 Yes [id number] 5ug Take 1 [facility] e 5 mcg 1-11 tablet by ity of tablet 00:00: mouth 2 [place] 00 (two) Medical times Branch daily. metoprolol Yes [id number] 100mg Take 1 [facility] succinate 1-11 tablet by ity o f XL 100 mg 00:00: mouth [place] 24 hr 00 daily. Medical tablet Branch rosuvastati Yes [id number] 20mg Take 1 [facility] n 20 mg 1-11 tablet by ity of tablet 00:00: mouth at [place] [address] bedtime. Medical Branch liothyronin 0 Yes 5ug Take 5 mcg [facility] e (Cytomel) 1-11 by mouth. Hea lth 5 MCG 00:00: tablet 00 metoprolol 2021-0 Yes 100mg Take 100 [facility] succinate 1-11 mg by Health XL 00:00: mouth. (Toprol-XL) 00 100 MG 24 hr tablet rosuvastati 2021-0 Yes 20mg QD Take 20 mg UT n (Crestor) 1-11 by mouth 1 He alth 20 MG 00:00: (one) time tablet 00 each day. liothyronin 2021-0 Yes 5ug Take 5 mcg [facility] e (Cytomel) 1-11 by mouth. Hea lth 5 MCG 00:00: tablet 00 metoprolol 2021-0 Yes 100mg Take 100 [facility] succinate 1-11 mg by Health XL 00:00: mouth. (Toprol-XL) 00 100 MG 24 hr tablet rosuvastati 2021-0 Yes 20mg QD Take 20 mg UT n (Crestor) 1-11 by mouth 1 He alth 20 MG 00:00: (one) time tablet 00 each day. liothyronin 2021-0 Yes 5ug Take 5 mcg UT e [...] 00 100 MG 24 hr tablet rosuvastati Yes 20mg QD Take 20 mg UT n (Crestor) 1-11 by mouth 1 He alth 20 MG 00:00: (one) time tablet 00 each day. liothyronin Yes 5ug Take 5 mcg UT e (Cytomel) 1-11 by mouth. Hea lth 5 MCG 00:00: tablet 00 metoprolol Yes 100mg Take 100 [facility] succinate 1-11 mg by Health XL 00:00: mouth. (Toprol-XL) 00 100 MG 24 hr tablet rosuvastati Yes 20mg QD Take 20 mg UT n (Crestor) 1-11 by mouth 1 He alth 20 MG 00:00: (one) time tablet 00 each day. felodipine 2021- No [id number] 5mg Take 1 [facility] 5 mg 24 hr 1- 12-15 tablet by ity of tablet 00:00: 00:00 mouth at [place] 00 :00 bedtime. Medical Branch nabumetone 2020-10 Yes 750mg [...] Take 750 [facility] (Relafen) 1-18 mg by [facility] 750 MG 00:00: mouth in tablet 00 the morning and 750 mg before bedtime. nabumetone 2020-10 Yes 750mg Q.5D Take 750 [facility] (Relafen) 1-18 mg by [facility] 750 MG 00:00: mouth in tablet 00 the morning and 750 mg before bedtime. nabumetone 2020-10 Yes 750mg Q.5D Take 750 [facility] (Relafen) 1-18 mg by Health 750 MG 00:00: mouth in tablet 00 the morning and 750 mg before bedtime. buPROPion 0 Yes [facility] XL 300 mg 5-21 ity of 24 hr 00:00: [place] tablet [facility] buPROPion Yes [facility] XL 300 mg 5-21 ity of 24 hr 00:00: [place] tablet [facility] buPROPion Yes Univers XL 300 mg 5-21 ity of 24 hr 00:00: [place] tablet [facility] buPROPion 2019-0 Yes [facility] XL 300 mg 5-21 ity of 24 hr 00:00: [place] tablet [facility] buPROPion 0 Yes [facility] XL 300 mg 5-21 ity of 24 hr 00:00: [place] tablet [facility] escitalopra 0 Yes 20mg Take 20 mg Univers m oxalate 3-27 by mouth ity of 20 mg 00:00: daily. [place] tablet [facility] escitalopra Yes 20mg Take 20 mg [facility] m oxalate 3-27 by mouth ity of 20 mg 00:00: daily. [place] tablet [facility] escitalopra Yes 20mg Take 20 mg [facility] m oxalate 3-27 by mouth ity of 20 mg 00:00: daily. [place] tablet [facility] [address] escitalopra Yes 20mg Take 20 mg [facility] oxalate 3-27 by mouth ity of 20 mg 00:00: daily. [place] tablet [facility] escitalopra Yes 20mg Take 20 mg [facility] oxalate 3-27 by mouth ity of 20 mg 00:00: daily. [facility] methylpheni Yes 54mg QD Take [address] [facility] HCl 6-28 by [facility] (CONCERTA) 13:36: every Medica l 54 MG CR 16 morning. [place] tablet liothyronin Yes 5ug Q.5D Take [address] [facility] (CYTOMEL) 6-28 by mouth 2 [place] kes 5 MCG 13:36: (two) Medical tablet 16 times Center daily. omeprazole 2018-0 Yes 40mg QD Take [address] [facility] (PRILOSEC) 6-28 [facility] 40 MG 13:36: every Medical capsule 16 morning. [place] metoprolol 2018-0 Yes 100mg QD Take [address] (TOPROL-XL) 6-28 mg by [facility] 100 MG 24 13:36: mouth Medical hr tablet 16 daily. [place] vortioxetin 2018-0 Yes 10mg QD Take [address] [facility] 10 mg Tab 6-28 by mouth [facility] 13:36: daily. Medical [address] [place] OLANZapine 2018-0 Yes 15mg QD Take [address] (ZYPREXA) 6-28 by [facility] 15 MG 13:36: nightly. Medical tablet 16 [place] methylpheni 2018-0 Yes 54mg QD Take [address] [facility] date HCl 6-28 by mouth [facility] (CONCERTA) 13:36: every Medica l 54 MG CR 16 morning. [place] tablet liothyronin 2018-0 Yes 5ug Q.5D Take [address] [facility] (CYTOMEL) 6-28 by mouth 2 [place] kes 5 MCG 13:36: (two) Medical tablet 16 times Center daily. omeprazole 2018-0 Yes 40mg QD Take [address] (PRILOSEC) 6-28 by [facility] 40 MG 13:36: every Medical capsule 16 morning. [place] metoprolol 2018-0 Yes 100mg QD Take [address] (TOPROL-XL) 6-28 mg by [facility] 100 MG 24 13:36: mouth Medical hr tablet 16 daily. [place] vortioxetin 2018-0 Yes 10mg QD Take [address] [facility] 10 mg Tab 6-28 by mouth [facility] 13:36: daily. Medical 16 [place] OLANZapine 2018-0 Yes 15mg QD Take [address] (ZYPREXA) 6-28 by [facility] 15 MG 13:36: nightly. Medical tablet 16 [place] methylpheni 2018-0 Yes 54mg QD Take [address] [facility] date HCl 6-28 by mouth [facility] (CONCERTA) 13:36: every Medica l 54 MG CR 16 morning. [place] tablet liothyronin 2018-0 Yes 5ug Q.5D Take [address] [facility] (CYTOMEL) 6-28 by mouth 2 [place] kes 5 MCG 13:36: (two) Medical tablet 16 times Center daily. omeprazole 2018-0 Yes 40mg QD Take [address] (PRILOSEC) 6-28 [facility] 40 MG 13:36: every Medical capsule 16 morning. [place] omeprazole 2018-0 Yes 40mg QD Take [address] (PRILOSEC) 6-28 by [facility] 40 MG 13:36: every Medical capsule 16 morning. [place] metoprolol 2018-0 Yes 100mg QD Take [address] (TOPROL-XL) 6-28 mg by [facility] 100 MG 24 13:36: mouth Medical hr tablet 16 daily. [place] vortioxetin 2018-0 Yes 10mg QD Take [address] [facility] 10 mg Tab 6-28 by mouth [facility] 13:36: daily. [address] OLANZapine 2018-0 Yes 15mg QD Take [address] (ZYPREXA) 6-28 by [facility] 15 MG 13:36: nightly. Medical tablet 16 [place] metoprolol 2018-0 Yes 100mg QD Take [address] (TOPROL-XL) 6-28 mg by [facility] 100 MG 24 13:36: mouth Medical hr tablet 16 daily. [place] methylpheni 2018-0 Yes 54mg QD Take [address] [facility] date HCl 6-28 by mouth [facility] (CONCERTA) 13:36: every Medica l 54 MG CR 16 morning. [place] tablet liothyronin 2018-0 Yes 5ug Q.5D Take [address] [facility] (CYTOMEL) 6-28 by mouth 2 [place] kes 5 MCG 13:36: (two) Medical tablet 16 times Center daily. vortioxetin 2018-0 Yes 10mg QD Take [address] [facility] 10 mg Tab 6-28 by mouth [facility] 13:36: daily. [address] OLANZapine 2018-0 Yes 15mg QD Take [address] (ZYPREXA) 6-28 by [facility] 15 MG 13:36: nightly. Medical tablet 16 [place] omeprazole 2018-0 Yes 40mg QD Take [address] (PRILOSEC) 6-28 by mouth [facility] 40 MG 13:36: every Medical capsule 16 morning. [place] metoprolol 2018-0 Yes 100mg QD Take [address] (TOPROL-XL) 6-28 mg by [facility] 100 MG 24 13:36: mouth Medical hr tablet 16 daily. [place] vortioxetin 2018-0 Yes 10mg QD Take [address] [facility] 10 mg Tab 6-28 by mouth [facility] 13:36: daily. [address] OLANZapine 2018-0 Yes 15mg QD Take [address] (ZYPREXA) 6-28 by [facility] 15 MG 13:36: nightly. Medical tablet 16 [place] methylpheni 2018-0 Yes 54mg QD Take [address] [facility] date HCl 6-28 by mouth [facility] (CONCERTA) 13:36: every Medica l 54 MG CR 16 morning. [place] tablet liothyronin 2018-0 Yes 5ug Q.5D Take [address] [facility] (CYTOMEL) 6-28 by mouth 2 [place] kes 5 MCG 13:36: (two) Medical tablet 16 times Center daily. methylpheni 2018-0 Yes 54mg QD Take [address] [facility] date HCl 6-28 by mouth [facility] (CONCERTA) 13:36: every Medica l 54 MG CR 16 morning. [place] tablet liothyronin 2018-0 Yes 5ug Q.5D Take [address] [facility] (CYTOMEL) 6-28 by mouth 2 [place] kes 5 MCG 13:36: (two) Medical tablet 16 times Center daily. omeprazole 2018-0 Yes 40mg QD Take [address] (PRILOSEC) 6-28 by mouth [facility] 40 MG 13:36: every Medical capsule 16 morning. [place] metoprolol 2018-0 Yes 100mg QD Take [address] (TOPROL-XL) 6-28 mg by [facility] 100 MG 24 13:36: mouth Medical hr tablet 16 daily. [place] vortioxetin 2018-0 Yes 10mg QD Take [address] [facility] 10 mg Tab 6-28 by mouth [facility] 13:36: daily. [address] OLANZapine 2018-0 Yes 15mg QD Take [address] (ZYPREXA) 6-28 by mouth [facility] 15 MG 13:36: nightly. Medical tablet 16 [place] methylpheni 2018-0 Yes 54mg QD Take [address] [facility] date HCl 6-28 by mouth [facility] (CONCERTA) 13:36: every Medica l 54 MG CR 16 morning. [place] tablet liothyronin 2018-0 Yes 5ug Q.5D Take [address] [facility] (CYTOMEL) 6-28 by mouth 2 [place] kes 5 MCG 13:36: (two) Medical tablet 16 times Center daily. omeprazole 2018-0 Yes 40mg QD Take [address] (PRILOSEC) 6-28 by mouth [facility] 40 MG 13:36: every Medical capsule 16 morning. [place] metoprolol 2018-0 Yes 100mg QD Take [address] (TOPROL-XL) 6-28 mg by [facility] 100 MG 24 13:36: mouth Medical hr tablet 16 daily. [place] vortioxetin 2018-0 Yes 10mg QD Take [address] [facility] 10 mg Tab 6-28 by mouth [facility] 13:36: daily. Medical 16 [place] OLANZapine 2018-0 Yes 15mg QD Take [address] (ZYPREXA) 6-28 by mouth [facility] 15 MG 13:36: nightly. Medical tablet 16 [place] methylpheni 2018-0 Yes 54mg QD Take [address] [facility] date HCl 6-28 by mouth [facility] (CONCERTA) 13:36: every Medica l 54 MG CR 16 morning. [place] tablet liothyronin 2018-0 Yes 5ug Q.5D Take [address] [facility] (CYTOMEL) 6-28 by mouth 2 [place] kes 5 MCG 13:36: (two) Medical tablet 16 times Center daily. omeprazole 2018-0 Yes 40mg QD Take [address] (PRILOSEC) 6-28 by mouth [facility] 40 MG 13:36: every Medical capsule 16 morning. [place] metoprolol 2018-0 Yes 100mg QD Take [address] (TOPROL-XL) 6-28 mg by [facility] 100 MG 24 13:36: mouth Medical hr tablet 16 daily. [place] vortioxetin 2018-0 Yes 10mg QD Take [address] [facility] 10 mg Tab 6-28 by mouth [facility] 13:36: daily. Medical 16 [place] OLANZapine 2018-0 Yes 15mg QD Take [address] (ZYPREXA) 6-28 by mouth [facility] 15 MG 13:36: nightly. Medical tablet 16 [place] methylpheni 2018-0 Yes 54mg QD Take [address] [facility] date HCl 6-28 by mouth [facility] (CONCERTA) 13:36: every Medica l 54 MG CR 16 morning. [place] tablet liothyronin 2018-0 Yes 5ug Q.5D Take [address] [facility] (CYTOMEL) 6-28 by mouth 2 [place] kes 5 MCG 13:36: (two) Medical tablet 16 times Center daily. omeprazole 2018-0 Yes 40mg QD Take [address] (PRILOSEC) 6-28 by mouth [facility] 40 MG 13:36: every Medical capsule 16 morning. [place] metoprolol 2018-0 Yes 100mg QD Take [address] (TOPROL-XL) 6-28 mg by [facility] 100 MG 24 13:36: mouth Medical hr tablet 16 daily. [place] vortioxetin 2018-0 Yes 10mg QD Take [address] [facility] 10 mg Tab 6-28 by mouth [facility] 13:36: daily. Medical 16 [place] OLANZapine 2018-0 Yes 15mg QD Take [address] (ZYPREXA) 6-28 by mouth [facility] 15 MG 13:36: nightly. Medical tablet 16 [place] methylpheni 2018-0 Yes 54mg QD Take [address] [facility] date HCl 6-28 by mouth [facility] (CONCERTA) 13:36: every Medica l 54 MG CR 16 morning. [place] tablet liothyronin 2018-0 Yes 5ug Q.5D Take [address] [facility] (CYTOMEL) 6-28 by mouth 2 [place] kes 5 MCG 13:36: (two) Medical tablet 16 times Center daily. omeprazole 2018-0 Yes 40mg QD Take [address] (PRILOSEC) 6-28 by mouth [facility] 40 MG 13:36: every Medical capsule 16 morning. [place] metoprolol 2018-0 Yes 100mg QD Take [address] (TOPROL-XL) 6-28 mg by [facility] 100 MG 24 13:36: mouth Medical hr tablet 16 daily. [place] vortioxetin 2018-0 Yes 10mg QD Take [address] [facility] 10 mg Tab 6-28 by mouth [facility] 13:36: daily. Medical 16 [place] OLANZapine 2018-0 Yes 15mg QD Take [address] (ZYPREXA) 6-28 by mouth [facility] 15 MG 13:36: nightly. Medical tablet 16 [place] methylpheni 2018-0 Yes 54mg QD Take [address] [facility] date HCl 6-28 by mouth [facility] (CONCERTA) 13:36: every Medica l 54 MG CR 16 morning. [place] tablet liothyronin 2018-0 Yes 5ug Q.5D Take [address] [facility] (CYTOMEL) 6-28 by mouth 2 [place] kes 5 MCG 13:36: (two) Medical tablet 16 times Center daily. omeprazole 2018-0 Yes 40mg QD Take [address] (PRILOSEC) 6-28 by mouth [facility] 40 MG 13:36: every Medical capsule 16 morning. [place] metoprolol 2018-0 Yes 100mg QD Take [address] (TOPROL-XL) 6-28 mg by [facility] 100 MG 24 13:36: mouth Medical hr tablet 16 daily. [place] vortioxetin 2018-0 Yes 10mg QD Take [address] [facility] 10 mg Tab 6-28 by mouth [facility] 13:36: daily. Medical 16 [place] OLANZapine 2018-0 Yes 15mg QD Take [address] (ZYPREXA) 6-28 by mouth [facility] 15 MG 13:36: nightly. Medical tablet 16 [place] methylpheni 2018-0 Yes 54mg QD Take [address] [facility] date HCl 6-28 by mouth [facility] (CONCERTA) 13:36: every Medica l 54 MG CR 16 morning. [place] tablet liothyronin 2018-0 Yes 5ug Q.5D Take [address] [facility] (CYTOMEL) 6-28 by mouth 2 [place] kes 5 MCG 13:36: (two) Medical tablet 16 times Center daily. omeprazole 2018-0 Yes 40mg QD Take [address] (PRILOSEC) 6-28 by mouth [facility] 40 MG 13:36: every Medical capsule 16 morning. [place] metoprolol 2018-0 Yes 100mg QD Take [address] (TOPROL-XL) 6-28 mg by [facility] 100 MG 24 13:36: mouth Medical hr tablet 16 daily. [place] vortioxetin 2018-0 Yes 10mg QD Take [address] [facility] 10 mg Tab 6-28 by mouth [facility] 13:36: daily. Medical 16 [place] OLANZapine 2018-0 Yes 15mg QD Take [address] (ZYPREXA) 6-28 by mouth [facility] 15 MG 13:36: nightly. Medical tablet 16 [place] methylpheni 2018-0 Yes 54mg QD Take [address] [facility] [address] date HCl 6-28 by mouth [facility] (CONCERTA) 13:36: every Medica l 54 MG CR 16 morning. [place] tablet liothyronin 2018-0 Yes 5ug Q.5D Take [address] [facility] (CYTOMEL) 6-28 by mouth 2 [place] kes 5 MCG 13:36: (two) Medical tablet 16 times Center daily. omeprazole 2018-0 Yes 40mg QD Take [address] (PRILOSEC) 6-28 by mouth [facility] 40 MG 13:36: every Medical capsule 16 morning. [place] metoprolol 2018-0 Yes 100mg QD Take [address] (TOPROL-XL) 6-28 mg by [facility] 100 MG 24 13:36: mouth Medical hr tablet 16 daily. [place] vortioxetin 2018-0 Yes 10mg QD Take [address] [facility] 10 mg Tab 6-28 by mouth [facility] 13:36: daily. Medical 16 [place] OLANZapine 2018-0 Yes 15mg QD Take [address] (ZYPREXA) 6-28 by mouth [facility] 15 MG 13:36: nightly. Medical tablet 16 [place] methylpheni 2018-0 Yes 54mg QD Take [address] [facility] date HCl 6-28 by mouth [facility] (CONCERTA) 13:36: every Medica l 54 MG CR 16 morning. [place] tablet liothyronin 2018-0 Yes 5ug Q.5D Take [address] [facility] (CYTOMEL) 6-28 by mouth 2 [place] k[facility] 5 MCG 13:36: (two) Medical tablet 16 times Center daily. omeprazole 2018-0 Yes 40mg QD Take [address] (PRILOSEC) 6-28 by mouth [facility] 40 MG 13:36: every Medical capsule 16 morning. [place] metoprolol 2018-0 Yes 100mg QD Take [address] (TOPROL-XL) 6-28 mg by [facility] 100 MG 24 13:36: mouth Medical hr tablet 16 daily. [place] vortioxetin 2018-0 Yes 10mg QD Take [address] [facility] 10 mg Tab 6-28 by mouth [facility] 13:36: daily. Medical 16 [place] OLANZapine 2018-0 Yes 15mg QD Take [address] (ZYPREXA) 6-28 by mouth [facility] 15 MG 13:36: nightly. Medical tablet 16 [place] methylpheni 2018-0 Yes 54mg QD Take [address] [facility] date HCl 6-28 by mouth [facility] (CONCERTA) 13:36: every Medica l 54 MG CR 16 morning. [place] tablet liothyronin 2018-0 Yes 5ug Q.5D Take [address] [facility] (CYTOMEL) 6-28 by mouth 2 [place] [facility] 5 MCG 13:36: (two) Medical tablet 16 times Center daily. omeprazole 2018-0 Yes 40mg QD Take [address] (PRILOSEC) 6-28 by mouth [facility] 40 MG 13:36: every Medical capsule 16 morning. [place] metoprolol 2018-0 Yes 100mg QD Take [address] (TOPROL-XL) 6-28 [facility] by [facility] 100 MG 24 13:36: mouth Medical hr tablet 16 daily. [place] vortioxetin 2018-0 Yes 10mg QD Take [address] [facility] 10 mg Tab 6-28 by mouth [facility] 13:36: daily. Medical 16 [place] OLANZapine 2018-0 Yes 15mg QD Take [address] (ZYPREXA) 6-28 by mouth [facility] 15 MG 13:36: nightly. Medical tablet 16 [place] methylpheni 2018-0 Yes 54mg QD Take [address] [facility] [address] date HCl 6-28 by mouth [facility] (CONCERTA) 13:36: every Medica l 54 MG CR 16 morning. [place] tablet liothyronin 2018-0 Yes 5ug Q.5D Take [address] [facility] (CYTOMEL) 6-28 by mouth 2 [place] 5 MCG 13:36: (two) Medical tablet 16 times Center daily. omeprazole 2018-0 Yes 40mg QD Take [address] (PRILOSEC) 6-28 by mouth [facility] 40 MG 13:36: every Medical capsule 16 morning. [place] metoprolol 2018-0 Yes 100mg QD Take [address] (TOPROL-XL) 6-28 mg by [facility] 100 MG 24 13:36: mouth Medical hr tablet 16 daily. [place] vortioxetin 2018-0 Yes 10mg QD Take [address] [facility] 10 mg Tab 6-28 by mouth [facility] 13:36: daily. Medical 16 [place] OLANZapine 2018-0 Yes 15mg QD Take [address] (ZYPREXA) 6-28 by mouth [facility] 15 MG 13:36: nightly. Medical tablet 16 [place] methylpheni 2018-0 Yes 54mg QD Take [address] [facility] [address] date HCl 6-28 by mouth [facility] (CONCERTA) 13:36: every Medica l 54 MG CR 16 morning. Center tablet liothyronin 2017-0 Yes 5ug Q.5D Take [address] [facility] (CYTOMEL) 6-28 by mouth 2 [place] 5 MCG 13:36: (two) Medical tablet 16 times Center daily. omeprazole 2018-0 Yes 40mg QD Take [address] (PRILOSEC) 6-28 by [facility] 40 MG 13:36: every Medical capsule 16 morning. [place] metoprolol 0 Yes 100mg QD Take [address] (TOPROL-XL) 6-28 [facility] by [facility] 100 MG 24 13:36: mouth Medical hr tablet 16 daily. [place] vortioxetin 2017-0 Yes 10mg QD Take [address] [facility] 10 mg Tab 6-28 by mouth [facility] 13:36: daily. [address] OLANZapine 0 Yes 15mg QD Take [address] (ZYPREXA) 6-28 by [facility] 15 MG 13:36: nightly. Medical tablet 16 [place] metoprolol 0 Yes 100mg QD Take 100 [facility] succinate 2-[address] XL 08:25: mouth [facility] (TOPROL-XL) 53 daily. l 100 mg 24 hr tablet traZODone 2017-0 Yes 200mg QD Take 200 [facility] (DESYREL) 2-[address] 100 MG 08:25: mouth [facility] tablet 53 nightly. l liothyronin 2018-0 Yes 5ug Q.5D Take 5 mcg [facility] (CYTOMEL) 2-[address] 5 MCG 08:25: (two) [facility]osp[facility] tablet 53 times a l day. metoprolol 2018-0 Yes 100mg QD Take 100 [facility] succinate 2-[address] XL 08:25: mouth [facility] (TOPROL-XL) 53 daily. l 100 mg 24 hr tablet traZODone 2017-0 Yes 200mg QD Take 200 [facility] (DESYREL) 2-[address] 100 MG 08:25: mouth [facility] tablet 53 nightly. l liothyronin 2018-0 Yes 5ug Q.5D Take 5 mcg [facility] (CYTOMEL) 2-[address] 5 MCG 08:25: (two) [facility]ospita tablet 53 times a l day. metoprolol 2018-0 Yes 100mg QD Take 100 [facility] succinate 2-[address] XL 08:25: mouth [facility] (TOPROL-XL) 53 daily. l 100 mg 24 hr tablet traZODone 2018-0 Yes 200mg QD Take 200 [facility] (DESYREL) 2-[address] 100 MG 08:25: mouth [facility] tablet 53 nightly. l liothyronin 2018-0 Yes 5ug Q.5D Take 5 mcg [facility] (CYTOMEL) 2-[address] 5 MCG 08:25: (two) [facility]ospita tablet 53 times a l day. metoprolol 2018-0 Yes 100mg QD Take 100 [facility] succinate 2-[address] XL 08:25: mouth [facility] (TOPROL-XL) 53 daily. l 100 mg 24 hr tablet traZODone 2018-0 Yes 200mg QD Take 200 [facility] (DESYREL) 2-[address] 100 MG 08:25: mouth [facility] tablet 53 nightly. l liothyronin 2018-0 Yes 5ug Q.5D Take 5 mcg [facility] (CYTOMEL) 2-[address] 5 MCG 08:25: (two) [facility]osp[facility] tablet 53 times a l day. metoprolol 2018-0 Yes 100mg QD Take 100 [facility] succinate 2-[address] XL 08:25: mouth [facility] (TOPROL-XL) 53 daily. l 100 mg 24 hr tablet traZODone 2018-0 Yes 200mg QD Take 200 [facility] (DESYREL) 2-[address] 100 MG 08:25: mouth [facility] tablet 53 nightly. l liothyronin 2018-0 Yes 5ug Q.5D Take 5 mcg [facility] (CYTOMEL) 2-[address] 5 MCG 08:25: (two) [facility]osp[facility] tablet 53 times a l day. metoprolol 2018-0 Yes 100mg QD Take 100 [facility] succinate 2-[address] XL 08:25: mouth [facility] (TOPROL-XL) 53 daily. l 100 mg 24 hr tablet traZODone 2018-0 Yes 200mg QD Take 200 [facility] (DESYREL) 2-[address] 100 MG 08:25: mouth [facility] tablet 53 nightly. l liothyronin 2018-0 Yes 5ug Q.5D Take 5 mcg [facility] (CYTOMEL) 2-[address] 5 MCG 08:25: (two) [facility]osp[facility] tablet 53 times a l day. liothyronin 2018-0 Yes 5ug Q.5D Take 5 mcg [facility] (CYTOMEL) 2-[address] 5 MCG 08:25: (two) [facility]osp[facility] tablet 53 times a l day. metoprolol 2018-0 Yes 100mg QD Take 100 [facility] succinate 2-[address] XL 08:25: mouth [facility] (TOPROL-XL) 53 daily. l 100 mg 24 hr tablet traZODone 2018-0 Yes 200mg QD Take 200 [facility] (DESYREL) 2-[address] 100 MG 08:25: mouth [facility] tablet 53 nightly. l metoprolol 2018-0 Yes 100mg QD Take 100 [facility] succinate 2-[address] XL 08:25: mouth [facility] (TOPROL-XL) 53 daily. l 100 mg 24 hr tablet liothyronin 2018-0 Yes 5ug Q.5D Take 5 mcg [facility] (CYTOMEL) 2-[address] 5 MCG 08:25: (two) [facility]osp[facility] tablet 53 times a l day. metoprolol 2018-0 Yes 100mg QD Take 100 [facility] succinate 2-[address] XL 08:25: mouth [facility] (TOPROL-XL) 53 daily. l 100 mg 24 hr tablet traZODone 2018-0 Yes 200mg QD Take 200 [facility] (DESYREL) 2-[address] 100 MG 08:25: mouth [facility] tablet 53 nightly. l traZODone 2018-0 Yes 200mg QD Take 200 [facility] (DESYREL) 2-[address] 100 MG 08:25: mouth [facility] tablet 53 nightly. l liothyronin 2018-0 Yes 5ug Q.5D Take 5 mcg [facility] (CYTOMEL) 2-[address] 5 MCG 08:25: (two) [facility]osp[facility] tablet 53 times a l day. metoprolol 2018-0 Yes 100mg QD Take 100 [facility] succinate 2-[address] XL 08:25: mouth [facility] (TOPROL-XL) 53 daily. l 100 mg 24 hr tablet traZODone 2018-0 Yes 200mg QD Take 200 [facility] (DESYREL) 2-[address] 100 MG 08:25: mouth [facility] tablet 53 nightly. l liothyronin 2018-0 Yes 5ug Q.5D Take 5 mcg [facility] (CYTOMEL) 2-[address] 5 MCG 08:25: (two) [facility]osp[facility] tablet 53 times a l day. metoprolol 2018-0 Yes 100mg QD Take 100 [facility] succinate 2-[address] XL 08:25: mouth [facility] (TOPROL-XL) 53 daily. l 100 mg 24 hr tablet traZODone 2018-0 Yes 200mg QD Take 200 [facility] (DESYREL) 2-[address] 100 MG 08:25: mouth [facility] tablet 53 nightly. l liothyronin 2018-0 Yes 5ug Q.5D Take 5 mcg [facility] (CYTOMEL) 2-[address] 5 MCG 08:25: (two) [facility]osp[facility] tablet 53 times a l day. metoprolol 2018-0 Yes 100mg QD Take 100 [facility] succinate 2-[address] XL 08:25: mouth [facility] (TOPROL-XL) 53 daily. l 100 mg 24 hr tablet traZODone 2018-0 Yes 200mg QD Take 200 [facility] (DESYREL) 2-[address] 100 MG 08:25: mouth [facility] tablet 53 nightly. l liothyronin 2018-0 Yes 5ug Q.5D Take 5 mcg [facility] (CYTOMEL) 2-[address] 5 MCG 08:25: (two) [facility]osp[facility] tablet 53 times a l day. metoprolol 2018-0 Yes 100mg QD Take 100 [facility] succinate 2-[address] XL 08:25: mouth [facility] (TOPROL-XL) 53 daily. l 100 mg 24 hr tablet traZODone 2018-0 Yes 200mg QD Take 200 [facility] (DESYREL) 2-[address] 100 MG 08:25: mouth [facility] tablet 53 nightly. l liothyronin 2018-0 Yes 5ug Q.5D Take 5 mcg [facility] (CYTOMEL) 2-[address] 5 MCG 08:25: (two) [facility]osp[facility] tablet 53 times a l day. metoprolol 2018-0 Yes 100mg QD Take 100 [facility] succinate 2-[address] XL 08:25: mouth [facility] (TOPROL-XL) 53 daily. l 100 mg 24 hr tablet traZODone 2018-0 Yes 200mg QD Take 200 [facility] (DESYREL) 2-[address] 100 MG 08:25: mouth [facility] tablet 53 nightly. l liothyronin 2018-0 Yes 5ug Q.5D Take 5 mcg [facility] (CYTOMEL) 2-[address] 5 MCG 08:25: (two) [facility]ospita tablet 53 times a l day. metoprolol 2018-0 Yes 100mg QD Take 100 [facility] succinate 2-[address] XL 08:25: mouth [facility] (TOPROL-XL) 53 daily. l 100 mg 24 hr tablet traZODone 2018-0 Yes 200mg QD Take 200 [facility] (DESYREL) 2-[address] 100 MG 08:25: mouth [facility] tablet 53 nightly. l liothyronin 2018-0 Yes 5ug Q.5D Take 5 mcg [facility] (CYTOMEL) 2-[address] 5 MCG 08:25: (two) [facility]ospita tablet 53 times a l day. metoprolol 2018-0 Yes 100mg QD Take 100 [facility] succinate 2-[address] XL 08:25: mouth [facility] (TOPROL-XL) 53 daily. l 100 mg 24 hr tablet traZODone 2018-0 Yes 200mg QD Take 200 [facility] (DESYREL) 2-[address] 100 MG 08:25: mouth [facility] tablet 53 nightly. l liothyronin 2018-0 Yes 5ug Q.5D Take 5 mcg [facility] (CYTOMEL) 2-[address] 5 MCG 08:25: (two) [facility]ospita tablet 53 times a l day. liothyronin 2018-0 Yes 5ug Q.5D Take 5 mcg [facility] (CYTOMEL) 2-[address] 5 MCG 08:25: (two) [facility]ospita tablet 53 times a l day. metoprolol 2018-0 Yes 100mg QD Take 100 [facility] succinate 2-[address] XL 08:25: mouth [facility] (TOPROL-XL) 53 daily. l 100 mg 24 hr tablet traZODone 2018-0 Yes 200mg QD Take 200 [facility] (DESYREL) 2-[address] 100 MG 08:25: mouth [facility] tablet 53 nightly. l Immunizations Ordered Filled Immunization Date Status Comments [facility] e Immunization Name Name influenza virus 2022-07-16 [facility]00 inactivated Influenza Virus 2022-07-12 Completed [facility], 00:00:00 [facility] dical Preserv and ABX Branch Free 6 MO-64 YRS Influenza Virus 2022-07-12 Completed [facility] Vaccine [facility] IM, 00:00:00 [facility] dical Preserv and ABX Branch Free 6 MO-64 YRS Influenza Virus 2022-07-12 Completed [facility] Vaccine Quad IM, 00:00:00 [facility] dical Preserv and ABX Branch Free 6 MO-64 YRS TD 2022-05-25 Completed [facility] of 00:00:00 [facility] Pneumococcal 20 2022-05-25 Completed [facility] of Conjugate, PCV20 00:00:00 [facility] dical (Prevnar 20) Branch AP 2022-05-25 Completed [facility] of 00:00:00 [facility] Pneumococcal 20 2022-05-25 Completed [facility] of Conjugate, PCV20 00:00:00 [facility] dical (Prevnar 20) Branch [facility] 2022-05-25 Completed [facility] of 00:00:00 [facility] Pneumococcal 20 2022-05-25 Completed [facility] of Conjugate, PCV20 00:00:00 [facility] dical (Prevnar 20) Branch [facility] 2022-05-25 Completed [facility] of 00:00:00 [facility] Pneumococcal 20 2022-05-25 Completed [facility]it [facility] of Conjugate, PCV20 00:00:00 [facility] dical (Prevnar 20) Branch [facility] 2022-05-25 Completed University of 00:00:00 [facility] Pneumococcal 20 2022-05-25 Completed Universit [facility] of Conjugate, PCV20 00:00:00 [facility] dical (Prevnar 20) Branch SARS-COV-2 COVID-19 2021-10-21 Completed Unive rsity of MODERNA 0.25ML 00:00:00 [facility] BOOSTER VACCINE Branch SARS-COV-2 COVID-19 2021-10-21 Completed [...] 00:00:00 [facility] VACC[facility] Influenza Virus [...] [facility] of Vaccine Quad IM, 00:00:00 [place] [facility] dical Preserv and ABX Branch Free 6 MO-64 YRS SARS-COV-2 COVID-19 2021-01-15 Completed Unive rsity of MODERNA 12+ YRS 00:00:00 [place] [facility] VACCINE Branch SARS-COV-2 COVID-19 2021-01-15 Completed Unive rsity of MODERNA 12+ YRS 00:00:00 [place] [facility] VACCINE [facility] SARS-COV-2 COVID-19 2021-01-15 Completed Unive rsity of MODERNA 12+ YRS 00:00:00 [place] [facility] VACCINE [facility] SARS-COV-2 COVID-19 2021-01-15 Completed Unive rsity of MODERNA 12+ YRS 00:00:00 [place] [facility] VACCINE [facility] SARS-COV-2 COVID-19 2021-01-15 [...] Unive rsity of MODERNA 12+ YRS 00:00:00 [place] [facility] VACCINE [facility] Vital Signs Vital Name Observation Time Observation Value Comments Source Body height 2022-09-24 19:12:00 162[facility]6 [facility] Body weight 2022-09-24 19:12:00 104.327 kg [facility] BMI 2022-09-24 19:12:00 39.48 kg/m2 [facility] Systolic blood 2022-09-18 16:28:00 114 mm[Hg] Univer sity of pressure [facility] Diastolic blood 2022-09-18 16:28:00 72 mm[Hg] Unive rsity of pressure [facility] Heart rate 2022-09-18 16:28:00 63 /min [facility] Body temperature 2022-09-18 16:28:00 37.06 [facility]ira [facility] Body height 2022-09-18 16:28:00 162.6 cm [facility] Body weight 2022-09-18 16:28:00 96.163 kg [facility] BMI 2022-09-18 16:28:00 36.39 kg/m2 [facility] Oxygen saturation in 2022-09-18 16:28:00 96 /min [facility] Arterial blood by [facility] Pulse oximetry [facility] Body height 2022-09-17 17:51:00 [facility] 2022-09-17 17:51:00 [facility]327 [facility] BMI 2022-09-17 17:51:00 39.48 [facility] height 2022-08-06 15:21:00 [facility]6 [facility] weight 2022-08-06 15:21:00 103[facility]42 [facility] BMI 2022-08-06 15:21:00 39.14 [facility] height 2022-07-30 15:11:00 162.6 cm [facility] [...] 19:22:00 99.791 kg Heart Rate 2022-07-17 13:07:11 [facility] Respitory Rate 2022-07-17 13:07:11 [facility] Systolic (mm Hg) 2022-07-17 13:06:54 [facility] Diastolic (mm Hg) 2022-07-17 13:06:54 [facility] Heart Rate 2022-07-17 13:06:54 [facility] Temperature Oral (F) 2022-07-17 13:06:50 99 F [facility] Heart Rate 2022-07-17 10:15:30 [facility] Respitory Rate 2022-07-17 10:15:30 [facility] Systolic (mm Hg) 2022-07-17 10:15:21 [facility] Diastolic (mm Hg) 2022-07-17 10:15:21 [facility] Temperature Oral (F) 2022-07-17 10:14:55 98.6 F [facility] Respitory Rate 2022-07-17 06:39:06 [facility] Systolic (mm Hg) 2022-07-17 06:38:47 [facility] Diastolic (mm Hg) 2022-07-17 06:38:47 [facility] Temperature Oral (F) 2022-07-17 06:38:29 100.1 F [facility] Height 2022-07-14 20:55:00 165.1 cm [facility] Weight 2022-07-14 20:55:00 [facility] BMI Calculated 2022-07-14 20:55:00 [facility] Height 2022-07-02 12:57:00 162.56 cm [facility] Weight 2022-07-02 12:57:00 [facility] BMI Calculated 2022-07-02 12:57:00 [facility] Systolic blood 2022-06-07 03:01:00 120 mm[Hg] [facility] pressure Diastolic blood 2022-06-07 03:01:00 62 mm[Hg] [facility] pressure Heart rate 2022-06-07 03:01:00 65 /min [facility] Respiratory rate 2022-06-07 03:01:00 18 /min [facility] Oxygen saturation in 2022-06-07 03:01:00 97 /min [facility] Arterial blood by Pulse oximetry Body height 2022-06-06 23:39:00 165.1 cm [facility] Body weight 2022-06-06 23:39:00 99.791 kg [facility] BMI 2022-06-06 23:39:00 36.61 kg/m2 [facility] Body temperature 2022-06-06 23:27:39 36.72 Elvira [facility] Diastolic blood 2022-02-21 01:00:00 80 mm[Hg] [facility] Heart rate 2022-02-21 01:00:00 90 /min [facility] Body temperature 2022-02-21 01:00:00 36.5 Elvira [facility] Respiratory rate 2022-02-21 01:00:00 18 /min [facility] Oxygen saturation in 2022-02-21 01:00:00 97 /min [facility] Arterial blood by [facility] Pulse oximetry Systolic blood 2022-02-21 01:00:00 151 mm[Hg] [facility] Body height 2022-02-20 19:22:00 165.1 cm [facility] Body weight 2022-02-20 19:22:00 99.791 kg [facility] BMI 2022-02-20 19:22:00 36.61 kg/m2 [facility] Procedures Procedure Date / Time Performing Clinician Source Performed CT PELVIS WO CONTRAST 2022-06-07 00:38:30 Elton Stringer [facility] MR LUMBAR SPINE WITHOUT 2022-02-20 21:52:00 Brian Morton [facility] IV CONTRAST Center Thyroidectomy [facility] EGD [facility] (esophagogastroduodenosc opy) gastric outlet reduction Colonoscopy [facility] LAM[facility]OMY [facility]BT[facility] FUSION [facility] Hysterectomy [facility] HERNIA REPAIR [facility] Plan of Care Planned Activity Planned Date Details Comments Source Future Scheduled 2022-09-[address] [facility] Test 13:04:41 (procedure) [code = [id number]] Future Scheduled 2022-09-24 BREAST CANCER [facility] Test 13:04:41 SCREENING [code = BREAST CANCER SCREENING] Future Scheduled 2022-09-[address] [facility] Test 13:04:41 [code = COLONOSCOPY SCREENING] Future Scheduled 2022-09-24 SHINGLES VACCINES (1 Met [facility] Test 13:04:41 of 2) [code = SHINGLES VACCINES (1 of 2)] Future Scheduled 2022-09-24 COVID-19 VACCINE (4 - [facility] Test 13:04:41 Booster for Moderna series) [code = COVID-19 VACCINE (4 - Booster for Moderna series)] Future Scheduled 2022-09-24 [facility] Test 13:04:41 [code = INFLUENZA VACCINE] Future Scheduled 2022-09-17 HEPATITIS B VACCINES Met [facility] Test 11:46:18 (1 of 3 - 3-dose series) [code = HEPATITIS B VACCINES (1 of 3 - 3-dose series)] Future Scheduled 2022-09-[address] [facility] Test 11:46:18 (procedure) [code = [id number]] Future Scheduled 2022-09-17 Screening for [facility] Test 11:46:18 malignant neoplasm of cervix (procedure) [code = 930112946] Future Scheduled 2022-09-17 BREAST CANCER [facility] Test 11:46:18 SCREENING [code = BREAST CANCER SCREENING] Future Scheduled 2022-09-[address] [facility] Test 11:46:18 [code = COLONOSCOPY SCREENING] Future Scheduled 2022-09-17 SHINGLES VACCINES (1 Met [facility] Test 11:46:18 of 2) [code = SHINGLES VACCINES (1 of 2)] Future Scheduled 2022-09-17 COVID-19 VACCINE (4 - [facility] Test 11:46:18 Booster for Moderna series) [code = COVID-19 VACCINE (4 - Booster for Moderna series)] Future Scheduled 2022-09-17 INFLUENZA VACCINE [facility] Test 11:46:18 [code = INFLUENZA VACCINE] Future Scheduled 2022-09-09 HEPATITIS B VACCINES Met [facility] Test 13:39:09 (1 of 3 - 3-dose series) [code = HEPATITIS B VACCINES (1 of 3 - 3-dose series)] Future Scheduled 2022-09-[address] [facility] Test 13:39:09 (procedure) [code = [id number]] Future Scheduled 2022-09-09 Screening for [facility] Test 13:39:09 malignant neoplasm of cervix (procedure) [code = 983252072] Future Scheduled 2022-09-09 BREAST CANCER [facility] Test 13:39:09 SCREENING [code = BREAST CANCER SCREENING] Future Scheduled 2022-09-[address] [facility] Test 13:39:09 [code = COLONOSCOPY SCREENING] Future Scheduled 2022-09-09 SHINGLES VACCINES (1 Met [facility] Test 13:39:09 of 2) [code = SHINGLES VACCINES (1 of 2)] Future Scheduled 2022-09-09 COVID-19 VACCINE (4 - [facility] Test 13:39:09 Booster for Moderna series) [code = COVID-19 VACCINE (4 - Booster for Moderna series)] Future Scheduled 2022-09-09 INFLUENZA VACCINE [facility] Test 13:39:09 [code = INFLUENZA VACCINE] Future Scheduled 2022-08-26 HEPATITIS B VACCINES Met [facility] Test 10:11:29 (1 of 3 - 3-dose series) [code = HEPATITIS B VACCINES (1 of 3 - 3-dose series)] Future Scheduled 2022-08-[address] [facility] Test 10:11:29 (procedure) [code = [id number]] Future Scheduled 2022-08-26 Screening for [facility] Test 10:11:29 malignant neoplasm of cervix (procedure) [code = 967612338] Future Scheduled 2022-08-26 BREAST CANCER [facility] Test 10:11:29 SCREENING [code = BREAST CANCER SCREENING] Future Scheduled 2022-08-[address] [facility] Test 10:11:29 [code = COLONOSCOPY SCREENING] Future Scheduled 2022-08-26 SHINGLES VACCINES (1 Met [facility] Test 10:11:29 of 2) [code = SHINGLES VACCINES (1 of 2)] Future Scheduled 2022-08-26 COVID-19 VACCINE (4 - [facility] Test 10:11:29 Booster for Moderna series) [code = COVID-19 VACCINE (4 - Booster for Moderna series)] Future Scheduled 2022-08-26 INFLUENZA VACCINE Method [facility] Test 10:11:29 [code = INFLUENZA VACCINE] Future Scheduled 2022-08-26 HEPATITIS B VACCINES Met [facility] Test 10:11:29 (1 of 3 - 3-dose series) [code = HEPATITIS B VACCINES (1 of 3 - 3-dose series)] Future Scheduled 2022-08-[address] [facility] Test 10:11:29 (procedure) [code = [id number]] Future Scheduled 2022-08-26 Screening for [facility] Test 10:11:29 malignant neoplasm of cervix (procedure) [code = 840114602] Future Scheduled 2022-08-26 BREAST CANCER [facility] Test 10:11:29 SCREENING [code = BREAST CANCER SCREENING] Future Scheduled 2022-08-[address] [facility] Test 10:11:29 [code = COLONOSCOPY SCREENING] Future Scheduled 2022-08-26 SHINGLES VACCINES (1 Met [facility] Test 10:11:29 of 2) [code = SHINGLES VACCINES (1 of 2)] Future Scheduled 2022-08-26 COVID-19 VACCINE (4 - [facility] Test 10:11:29 Booster for Moderna series) [code = COVID-19 VACCINE (4 - Booster for Moderna series)] Future Scheduled 2022-08-26 INFLUENZA VACCINE Method [facility] Test 10:11:29 [code = INFLUENZA VACCINE] Future Scheduled 2022-08-26 HEPATITIS B VACCINES Met [facility] Test 10:11:29 (1 of 3 - 3-dose series) [code = HEPATITIS B VACCINES (1 of 3 - 3-dose series)] Future Scheduled 2022-08-[address] [facility] Test 10:11:29 (procedure) [code = [id number]] Future Scheduled 2022-08-26 Screening for [facility] Test 10:11:29 malignant neoplasm of cervix (procedure) [code = 646488622] Future Scheduled 2022-08-26 BREAST CANCER [facility] Test 10:11:29 SCREENING [code = BREAST CANCER SCREENING] Future Scheduled 2022-08-[address] [facility] Test 10:11:29 [code = COLONOSCOPY SCREENING] Future Scheduled 2022-08-26 SHINGLES VACCINES (1 Met [facility] Test 10:11:29 of 2) [code = SHINGLES VACCINES (1 of 2)] Future Scheduled 2022-08-26 COVID-19 VACCINE (4 - Me [facility] Test 10:11:29 Booster for Moderna series) [code = COVID-19 VACCINE (4 - Booster for Moderna series)] Future Scheduled 2022-08-26 INFLUENZA VACCINE [facility] Test 10:11:29 [code = INFLUENZA VACCINE] Future Scheduled 2022-08-26 HEPATITIS B VACCINES Met [facility] Test 10:11:29 (1 of 3 - 3-dose series) [code = HEPATITIS B VACCINES (1 of 3 - 3-dose series)] Future Scheduled 2022-08-[address] [facility] Test 10:11:29 (procedure) [code = [id number]] Future Scheduled 2022-08-26 Screening for [facility] Test 10:11:29 malignant neoplasm of cervix (procedure) [code = 058164768] Future Scheduled 2022-08-26 BREAST CANCER [facility] Test 10:11:29 SCREENING [code = BREAST CANCER SCREENING] Future Scheduled 2022-08-[address] [facility] Test 10:11:29 [code = COLONOSCOPY SCREENING] Future Scheduled 2022-08-26 SHINGLES VACCINES (1 Met [facility] Test 10:11:29 of 2) [code = SHINGLES VACCINES (1 of 2)] Future Scheduled 2022-08-26 COVID-19 VACCINE (4 - [facility] Test 10:11:29 Booster for Moderna series) [code = COVID-19 VACCINE (4 - Booster for Moderna series)] Future Scheduled 2022-08-26 INFLUENZA VACCINE [facility] Test 10:11:29 [code = INFLUENZA VACCINE] Future Scheduled 2022-08-26 HEPATITIS B VACCINES Met [facility] Test 10:11:29 (1 of 3 - 3-dose series) [code = HEPATITIS B VACCINES (1 of 3 - 3-dose series)] Future Scheduled 2022-08-[address] [facility] Test 10:11:29 (procedure) [code = 255373096] Future Scheduled 2022-08-26 Screening for [facility] Test 10:11:29 malignant neoplasm of cervix (procedure) [code = 679740678] Future Scheduled 2022-08-26 BREAST CANCER [facility] Test 10:11:29 SCREENING [code = BREAST CANCER SCREENING] Future Scheduled 2022-08-[address] [facility] Test 10:11:29 [code = COLONOSCOPY SCREENING] Future Scheduled 2022-08-26 SHINGLES VACCINES (1 Met [facility] Test 10:11:29 of 2) [code = SHINGLES VACCINES (1 of 2)] Future Scheduled 2022-08-26 COVID-19 VACCINE (4 - [facility] Test 10:11:29 Booster for Moderna series) [code = COVID-19 VACCINE (4 - Booster for Moderna series)] Future Scheduled 2022-08-26 INFLUENZA VACCINE Method [facility] Test 10:11:29 [code = INFLUENZA VACCINE] Future Scheduled 2022-08-26 HEPATITIS B VACCINES Met [facility] Test 10:11:29 (1 of 3 - 3-dose series) [code = HEPATITIS B VACCINES (1 of 3 - 3-dose series)] Future Scheduled 2022-08-[address] [facility] Test 10:11:29 (procedure) [code = 912228570] Future Scheduled 2022-08-26 Screening for [facility] Test 10:11:29 malignant neoplasm of cervix (procedure) [code = 557539913] Future Scheduled 2022-08-26 BREAST CANCER [facility] Test 10:11:29 SCREENING [code = BREAST CANCER SCREENING] Future Scheduled 2022-08-[address] [facility] Test 10:11:29 [code = COLONOSCOPY SCREENING] Future Scheduled 2022-08-26 SHINGLES VACCINES (1 Met [facility] Test 10:11:29 of 2) [code = SHINGLES VACCINES (1 of 2)] Future Scheduled 2022-08-26 COVID-19 VACCINE (4 - [facility] Test 10:11:29 Booster for Moderna series) [code = COVID-19 VACCINE (4 - Booster for Moderna series)] Future Scheduled 2022-08-26 INFLUENZA VACCINE Method [facility] Test 10:11:29 [code = INFLUENZA VACCINE] Future Scheduled 2022-08-26 HEPATITIS B VACCINES Met [facility] Test 10:11:29 (1 of 3 - 3-dose series) [code = HEPATITIS B VACCINES (1 of 3 - 3-dose series)] Future Scheduled 2022-08-[address] [facility] Test 10:11:29 (procedure) [code = [id number]] Future Scheduled 2022-08-26 Screening for [facility] Test 10:11:29 malignant neoplasm of cervix (procedure) [code = 384040453] Future Scheduled 2022-08-26 BREAST CANCER [facility] Test 10:11:29 SCREENING [code = BREAST CANCER SCREENING] Future Scheduled 2022-08-[address] [facility] Test 10:11:29 [code = COLONOSCOPY SCREENING] Future Scheduled 2022-08-26 SHINGLES VACCINES (1 Met [facility] Test 10:11:29 of 2) [code = SHINGLES VACCINES (1 of 2)] Future Scheduled 2022-08-26 COVID-19 VACCINE (4 - [facility] Test 10:11:29 Booster for Moderna series) [code = COVID-19 VACCINE (4 - Booster for Moderna series)] Future Scheduled 2022-08-26 INFLUENZA VACCINE [facility] Test 10:11:29 [code = INFLUENZA VACCINE] Future Scheduled 2022-08-26 HEPATITIS B VACCINES Met [facility] Test 10:11:29 (1 of 3 - 3-dose series) [code = HEPATITIS B VACCINES (1 of 3 - 3-dose series)] Future Scheduled 2022-08-[address] [facility] Test 10:11:29 (procedure) [code = 795046020] Future Scheduled 2022-08-26 Screening for [facility] Test 10:11:29 malignant neoplasm of cervix (procedure) [code = 059200721] Future Scheduled 2022-08-26 BREAST CANCER [facility] Test 10:11:29 SCREENING [code = BREAST CANCER SCREENING] Future Scheduled 2022-08-[address] [facility] Test 10:11:29 [code = COLONOSCOPY SCREENING] Future Scheduled 2022-08-26 SHINGLES VACCINES (1 Met [facility] Test 10:11:29 of 2) [code = SHINGLES VACCINES (1 of 2)] Future Scheduled 2022-08-26 COVID-19 VACCINE (4 - Me [facility] Test 10:11:29 Booster for Moderna series) [code = COVID-19 VACCINE (4 - Booster for Moderna series)] Future Scheduled 2022-08-26 INFLUENZA VACCINE Method [facility] Test 10:11:29 [code = INFLUENZA VACCINE] Future Scheduled 2022-08-26 HEPATITIS B VACCINES Met [facility] Test 10:11:29 (1 of 3 - 3-dose series) [code = HEPATITIS B VACCINES (1 of 3 - 3-dose series)] Future Scheduled 2022-08-[address] [facility] Test 10:11:29 (procedure) [code = 345030362] Future Scheduled 2022-08-26 Screening for [facility] Test 10:11:29 malignant neoplasm of cervix (procedure) [code = 245547658] Future Scheduled 2022-08-26 BREAST CANCER [facility] Test 10:11:29 SCREENING [code = BREAST CANCER SCREENING] Future Scheduled 2022-08-[address] [facility] Test 10:11:29 [code = COLONOSCOPY SCREENING] Future Scheduled 2022-08-26 SHINGLES VACCINES (1 Met [facility] Test 10:11:29 of 2) [code = SHINGLES VACCINES (1 of 2)] Future Scheduled 2022-08-26 COVID-19 VACCINE (4 - [facility] Test 10:11:29 Booster for Moderna series) [code = COVID-19 VACCINE (4 - Booster for Moderna series)] Future Scheduled 2022-08-26 INFLUENZA VACCINE Method [facility] Test 10:11:29 [code = INFLUENZA VACCINE] Future Scheduled 2022-08-26 HEPATITIS B VACCINES Met [facility] Test 10:11:29 (1 of 3 - 3-dose series) [code = HEPATITIS B VACCINES (1 of 3 - 3-dose series)] Future Scheduled 2022-08-[address] [facility] Test 10:11:29 (procedure) [code = 662217721] Future Scheduled 2022-08-26 Screening for [facility] Test 10:11:29 malignant neoplasm of cervix (procedure) [code = 128626487] Future Scheduled 2022-08-26 BREAST CANCER [facility] Test 10:11:29 SCREENING [code = BREAST CANCER SCREENING] Future Scheduled 2022-08-[address] [facility] Test 10:11:29 [code = COLONOSCOPY SCREENING] Future Scheduled 2022-08-26 SHINGLES VACCINES (1 Met [facility] Test 10:11:29 of 2) [code = SHINGLES VACCINES (1 of 2)] Future Scheduled 2022-08-26 COVID-19 VACCINE (4 - Me [facility] Test 10:11:29 Booster for Moderna series) [code = COVID-19 VACCINE (4 - Booster for Moderna series)] Future Scheduled 2022-08-26 INFLUENZA VACCINE Method [facility] Test 10:11:29 [code = INFLUENZA VACCINE] Future Scheduled 2022-08-26 HEPATITIS B VACCINES Met [facility] Test 10:11:29 (1 of 3 - 3-dose series) [code = HEPATITIS B VACCINES (1 of 3 - 3-dose series)] Future Scheduled 2022-08-[address] [facility] Test 10:11:29 (procedure) [code = 950951650] Future Scheduled 2022-08-26 Screening for [facility] Test 10:11:29 malignant neoplasm of cervix (procedure) [code = 370363422] Future Scheduled 2022-08-26 BREAST CANCER [facility] Test 10:11:29 SCREENING [code = BREAST CANCER SCREENING] Future Scheduled 2022-08-[address] [facility] Test 10:11:29 [code = COLONOSCOPY SCREENING] Future Scheduled 2022-08-26 SHINGLES VACCINES (1 Met [facility] Test 10:11:29 of 2) [code = SHINGLES VACCINES (1 of 2)] Future Scheduled 2022-08-26 COVID-19 VACCINE (4 - [facility] Test 10:11:29 Booster for Moderna series) [code = COVID-19 VACCINE (4 - Booster for Moderna series)] Future Scheduled 2022-08-26 INFLUENZA VACCINE Method [facility] Test 10:11:29 [code = INFLUENZA VACCINE] Future Scheduled 2022-08-26 HEPATITIS B VACCINES Met [facility] Test 10:11:29 (1 of 3 - 3-dose series) [code = HEPATITIS B VACCINES (1 of 3 - 3-dose series)] Future Scheduled 2022-08-[address] [facility] Test 10:11:29 (procedure) [code = 872020740] Future Scheduled 2022-08-26 Screening for [facility] Test 10:11:29 malignant neoplasm of cervix (procedure) [code = 677850961] Future Scheduled 2022-08-26 BREAST CANCER [facility] Test 10:11:29 SCREENING [code = BREAST CANCER SCREENING] Future Scheduled 2022-08-[address] [facility] Test 10:11:29 [code = COLONOSCOPY SCREENING] Future Scheduled 2022-08-26 SHINGLES VACCINES (1 Met [facility] Test 10:11:29 of 2) [code = SHINGLES VACCINES (1 of 2)] Future Scheduled 2022-08-26 COVID-19 VACCINE (4 - Me [facility] Test 10:11:29 Booster for Moderna series) [code = COVID-19 VACCINE (4 - Booster for Moderna series)] Future Scheduled 2022-08-26 INFLUENZA VACCINE Method [facility] Test 10:11:29 [code = INFLUENZA VACCINE] Future Scheduled 2022-08-26 HEPATITIS B VACCINES Met [facility] Test 10:11:29 (1 of 3 - 3-dose series) [code = HEPATITIS B VACCINES (1 of 3 - 3-dose series)] Future Scheduled 2022-08-[address] [facility] Test 10:11:29 (procedure) [code = 222682592] Future Scheduled 2022-08-26 Screening for [facility] Test 10:11:29 malignant neoplasm of cervix (procedure) [code = 883041749] Future Scheduled 2022-08-26 BREAST CANCER [facility] Test 10:11:29 SCREENING [code = BREAST CANCER SCREENING] Future Scheduled 2022-08-[address] [facility] Test 10:11:29 [code = COLONOSCOPY SCREENING] Future Scheduled 2022-08-26 SHINGLES VACCINES (1 Met [facility] Test 10:11:29 of 2) [code = SHINGLES VACCINES (1 of 2)] Future Scheduled 2022-08-26 COVID-19 VACCINE (4 - [facility] Test 10:11:29 Booster for Moderna series) [code = COVID-19 VACCINE (4 - Booster for Moderna series)] Future Scheduled 2022-08-26 INFLUENZA VACCINE Method [facility] Test 10:11:29 [code = INFLUENZA VACCINE] Future Scheduled 2022-06-30 HEPATITIS B VACCINES Met [facility] Test 12:34:57 (1 of 3 - 3-dose series) [code = HEPATITIS B VACCINES (1 of 3 - 3-dose series)] Future Scheduled 2022-06-[address] [facility] Test 12:34:57 (procedure) [code = 161621016] Future Scheduled 2022-06-30 Screening for [facility] Test 12:34:57 malignant neoplasm of cervix (procedure) [code = 334375335] Future Scheduled 2022-06-30 BREAST CANCER [facility] Test 12:34:57 SCREENING [code = BREAST CANCER SCREENING] Future Scheduled 2022-06-[address] [facility] Test 12:34:57 [code = COLONOSCOPY SCREENING] Future Scheduled 2022-06-30 SHINGLES VACCINES (1 Met [facility] Test 12:34:57 of 2) [code = SHINGLES VACCINES (1 of 2)] Future Scheduled 2022-06-30 COVID-19 VACCINE (4 - Me [facility] Test 12:34:57 Booster for Moderna series) [code = COVID-19 VACCINE (4 - Booster for Moderna series)] Future Scheduled 2022-06-30 INFLUENZA VACCINE [facility] Test 12:34:57 [code = INFLUENZA VACCINE] Future Scheduled 2022-06-11 INFLUENZA VACCINE (#1) [facility] 00:00:00 [code = INFLUENZA Medical Ce nter VACCINE (#1)] Future Scheduled 2022-06-11 INFLUENZA VACCINE (#1) [facility] Test 00:00:00 [code = INFLUENZA Medical Ce nter VACCINE (#1)] Future Scheduled 2022-06-11 INFLUENZA VACCINE (#1) [facility] 00:00:00 [code = [facility] VACCINE (#1)] Future Scheduled 2022-06-11 INFLUENZA VACCINE (#1) [facility]00 [code = [facility] VACCINE (#1)] Future Scheduled 2022-06-11 INFLUENZA VACCINE (#1) [facility] 00:00:00 [code = [facility]ter VACCINE (#1)] Future Scheduled 2022-06-11 INFLUENZA VACCINE (#1) [facility] 00:00:00 [code = [facility]FLUENZA Medical Ce [facility]ter VACCINE (#1)] Future Scheduled 2022-06-11 INFLUENZA VACCINE (#1) [facility] 00:00:00 [code = [facility]ZA [facility] Ce [facility]ter VACCINE (#1)] Future Scheduled 2022-06-11 INFLUENZA VACCINE (#1) [facility] 00:00:00 [code = [facility]ter VACCINE (#1)] Future Scheduled 2022-06-11 INFLUENZA VACCINE (#1) [facility] 00:00:00 [code = [facility]ZA [facility] Ce [facility]ter VACCINE (#1)] Future Scheduled 2022-06-11 INFLUENZA VACCINE (#1) [facility] 00:00:00 [code = [facility]FLU[facility]ZA [facility] Ce [facility]ter VACCINE (#1)] Future Scheduled 2022-06-11 INFLUENZA VACCINE (#1) [facility] 00:00:00 [code = [facility]FLU[facility]ZA Medical Ce [facility]ter VACCINE (#1)] Future Scheduled 2022-06-11 INFLUENZA VACCINE (#1) [facility] 00:00:00 [code = [facility]FLU[facility]ZA [facility] Ce [facility]ter VACCINE (#1)] Future Scheduled 2022-06-11 INFLUENZA VACCINE (#1) [facility] 00:00:00 [code = [facility]ZA [facility] Ce [facility]ter VACCINE (#1)] Future Scheduled 2022-06-11 INFLUENZA VACCINE (#1) [facility] 00:00:00 [code = [facility]FLU[facility]ZA [facility] Ce [facility]ter VACCINE (#1)] Future Scheduled 2022-06-11 INFLUENZA VACCINE (#1) [facility] 00:00:00 [code = [facility]ZA Medical Ce [facility]ter VACCINE (#1)] Future Scheduled 2022-06-11 INFLUENZA VACCINE (#1) [facility] 00:00:00 [code = [facility]ZA [facility] Ce [facility]ter VACCINE (#1)] Future Scheduled 2022-06-11 INFLUENZA VACCINE (#1) [facility] 00:00:00 [code = [facility]ZA [facility] Ce [facility]ter VACCINE (#1)] Future Scheduled 2022-02-18 COVID-19 VACCINE (4 [facility] series) [code = COVID-19 VACCINE (4 - [facility] series)] Future Scheduled 2022-02-18 COVID-19 VACCINE (4 - [facility]) [code = COVID-19 VACCINE (4 - [facility] series)] Future Scheduled 2022-02-18 COVID-19 VACCINE (4 - [facility]) [code = COVID-19 VACCINE (4 - [facility] series)] Future Scheduled 2022-02-18 COVID-19 VACCINE (4 - [facility]) [code = COVID-19 VACCINE (4 - [facility] series)] Future Scheduled 2022-02-18 COVID-19 VACCINE (4 - [facility]) [code = COVID-19 VACCINE (4 - [facility] series)] Future Scheduled 2022-02-18 COVID-19 VACCINE (4 - [facility]) [code = COVID-19 VACCINE (4 - [facility] series)] Future Scheduled 2022-02-18 COVID-19 VACCINE (4 - [facility]) [code = COVID-19 VACCINE (4 - [facility] series)] Future Scheduled 2022-02-18 COVID-19 VACCINE (4 - [facility] series) [code = COVID-19 VACCINE (4 - [facility] series)] Future Scheduled 2022-02-18 COVID-19 VACCINE (4 - [facility]) [code = COVID-19 VACCINE (4 - [facility] series)] Future Scheduled 2022-02-18 COVID-19 VACCINE (4 - [facility] series) [code = COVID-19 VACCINE (4 - [facility] series)] Future Scheduled 2022-02-18 COVID-19 VACCINE (4 - [facility] series) [code = COVID-19 VACCINE (4 - [facility] series)] Future Scheduled 2022-02-18 COVID-19 VACCINE (4 - [facility] 00[facility] series) [code = COVID-19 VACCINE (4 - [facility] series)] Future Scheduled 2022-02-18 COVID-19 VACCINE (4 - [facility]) [code = COVID-19 VACCINE (4 - [facility] series)] Future Scheduled 2022-02-18 COVID-19 VACCINE (4 - [facility] series) [code = COVID-19 VACCINE (4 - [facility] series)] Future Scheduled 2022-02-18 COVID-19 VACCINE (4 - [facility] 00[facility] series) [code = COVID-19 VACCINE (4 - [facility] series)] Future Scheduled 2022-02-18 COVID-19 VACCINE (4 - [facility] 00[facility] series) [code = COVID-19 VACCINE (4 - [facility] series)] Future Scheduled 2022-02-18 COVID-19 VACCINE (4 - [facility] 00[facility]:00 [facility] series) [code = COVID-19 VACCINE (4 - [facility] series)] Future Scheduled 2013 SHINGLES VACCINES ([address] [facility] 00:00:00 of 2) [code = SHINGLES Medic al Center VACCINES (1 of 2)] Future Scheduled 2013 SHINGLES VACCINES ([address] [facility] 00:00:00 of 2) [code = SHINGLES Medic al Center VACCINES (1 of 2)] Future Scheduled 2013 SHINGLES VACCINES ([address] [facility] 00:00:00 of 2) [code = SHINGLES Medic al Center VACCINES (1 of 2)] Future Scheduled 2013 SHINGLES VACCINES ([address] [facility] 00:00:00 of 2) [code = SHINGLES Medic [facility] Center VACCINES (1 of 2)] Future Scheduled 2013 SHINGLES VACCINES ([address] [facility] 00:00:00 of 2) [code = SHINGLES Medic al Center VACCINES (1 of 2)] Future Scheduled 2013 SHINGLES VACCINES ([address] [facility] 00:00:00 of 2) [code = SHINGLES Medic al Center VACCINES (1 of 2)] Future Scheduled 2013 SHINGLES VACCINES ([address] [facility] 00:00:00 of 2) [code = SHINGLES Medic al Center VACCINES (1 of 2)] Future Scheduled 2013 SHINGLES VACCINES ([address] [facility] 00:00:00 of 2) [code = SHINGLES Medic [facility] Center VACCINES (1 of 2)] Future Scheduled 2013 SHINGLES VACCINES ([address] [facility] 00:00:00 of 2) [code = SHINGLES Medic al Center VACCINES (1 of 2)] Future Scheduled 2013 SHINGLES VACCINES ([address] [facility] 00:00:00 of 2) [code = SHINGLES Medic al Center VACCINES (1 of 2)] Future Scheduled 2013 SHINGLES VACCINES ([address] [facility] 00:00:00 of 2) [code = SHINGLES Medic al Center VACCINES (1 of 2)] Future Scheduled 2013 SHINGLES VACCINES ([address] [facility] 00:00:00 of 2) [code = SHINGLES Medic al Center VACCINES (1 of 2)] Future Scheduled 2013 SHINGLES VACCINES ([address] [facility] 00:00:00 of 2) [code = SHINGLES Medic [facility] Center VACCINES (1 of 2)] Future Scheduled 2013 SHINGLES VACCINES ([address] [facility] 00:00:00 of 2) [code = SHINGLES Medic [facility] Center VACCINES (1 of 2)] Future Scheduled 2013 SHINGLES VACCINES ([address] [facility] 00:00:00 of 2) [code = SHINGLES Medic [facility] Center VACCINES (1 of 2)] Future Scheduled 2013 SHINGLES VACCINES ([address] [facility] 00:00:00 of 2) [code = SHINGLES Medic [facility] Center VACCINES (1 of 2)] Future Scheduled 2013 SHINGLES VACCINES ([address] [facility] 00:00:00 of 2) [code = SHINGLES Medic al Center VACCINES (1 of 2)] Future Scheduled [address] [facility]:00 (procedure) [code = Medical Center [id number]] Future Scheduled [address] [facility] 00:[facility]:00 (procedure) [code = Medical Center [id number]] Future Scheduled [address] [facility] 00:00:00 (procedure) [code = Medical Center [id number]] Future Scheduled [address] [facility] 00:00:00 (procedure) [code = Medical Center [id number]] Future Scheduled [address] [facility] 00:00:00 (procedure) [code = Medical Center [id number]] Future Scheduled [address] [facility] 00:00:00 (procedure) [code = Medical Center [id number]] Future Scheduled [address] [facility] 00:00:00 (procedure) [code = Medical Center [id number]] Future Scheduled [address] [facility] 00:00:00 (procedure) [code = Medical Center [id number]] Future Scheduled [address] [facility] 00:00:00 (procedure) [code = Medical Center [id number]] Future Scheduled [address] [facility] 00:00:00 (procedure) [code = Medical Center [id number]] Future Scheduled [address] [facility] 00:00:00 (procedure) [code = Medical Center [id number]] Future Scheduled [address] [facility] 00:00:00 (procedure) [code = Medical Center [id number]] Future Scheduled [address] [facility] 00:00:00 (procedure) [code = Medical Center [id number]] Future Scheduled [address] [facility] 00:00:00 (procedure) [code = Medical Center [id number]] Future Scheduled [address] [facility] 00:00:00 (procedure) [code = Medical Center [id number]] Future Scheduled [address] [facility] 00:00:00 (procedure) [code = [facility] [id number]] Future Scheduled [address] [facility] 00:00:00 (procedure) [code = [facility] [id number]] Future Scheduled [address] [facility] cervix (procedure) [code = [id number]] Future Scheduled [address] [facility] 00:00:00 [facility] cervix (procedure) [code = [id number]] Future Scheduled [address] [facility] 00:00:00 [facility] cervix (procedure) [code = [id number]] Future Scheduled [address] [facility] 00:00:00 [facility] cervix (procedure) [code = 388247068] Future Scheduled [address] [facility] 00:00:00 [facility] cervix (procedure) [code = [id number]] Future Scheduled [address] [facility] 00:00:00 [facility] cervix (procedure) [code = [id number]] Future Scheduled [address] [facility] 00:00:00 [facility] cervix (procedure) [code = 876113778] Future Scheduled [address] [facility] 00:00:00 [facility] cervix (procedure) [code = 087563298] Future Scheduled [address] [facility] 00:00:00 [facility] cervix (procedure) [code = [id number]] Future Scheduled [address] [facility] 00:00:00 [facility] cervix (procedure) [code = 172440991] Future Scheduled [address] [facility] 00:00:00 [facility] cervix (procedure) [code = 008053143] Future Scheduled [address] [facility] 00:00:00 [facility] cervix (procedure) [code = 780391447] Future Scheduled [address] [facility] 00:00:00 [facility] cervix (procedure) [code = 973423367] Future Scheduled [address] [facility] 00:00:00 [facility] cervix (procedure) [code = [id number]] Future Scheduled [address] [facility] 00:00:00 [facility] cervix (procedure) [code = 398466918] Future Scheduled [address] [facility] 00:00:00 [facility] cervix (procedure) [code = 772686817] Future Scheduled [address] [facility] 00:00:00 [facility] cervix (procedure) [code = 737803134] Future Scheduled 1982 DTAP/TDAP/TD [facility]ACCINES [facility]:00 (1 - Tdap) [code = Medical C enter DTAP/TDAP/TD VACCINES (1 - Tdap)] Future Scheduled 1982 DTAP/TDAP/TD VACCINES [facility] 00:00:00 (1 - Tdap) [code = Medical C enter DTAP/TDAP/TD VACCINES (1 - Tdap)] Future Scheduled 1982 DTAP/TDAP/TD VACCINES [facility] 00:00:00 (1 - Tdap) [code = Medical C enter DTAP/TDAP/TD VACCINES (1 - Tdap)] Future Scheduled 1982 DTAP/TDAP/TD [facility]ACCINES [facility] 00:00:00 (1 - Tdap) [code = Medical C enter DTAP/TDAP/TD VACCINES (1 - Tdap)] Future Scheduled 1982 DTAP/TDAP/TD [facility]ACCINES [facility] 00:00:00 (1 - Tdap) [code = Medical C enter DTAP/TDAP/TD VACCINES (1 - Tdap)] Future Scheduled 1982 DTAP/TDAP/TD [facility]ACCINES [facility] 00:00:00 (1 - Tdap) [code = Medical C enter DTAP/TDAP/TD VACCINES (1 - Tdap)] Future Scheduled 1982 DTAP/TDAP/TD [facility]ACCINES [facility] 00:00:00 (1 - Tdap) [code = Medical C enter DTAP/TDAP/TD VACCINES (1 - Tdap)] Future Scheduled 1982 DTAP/TDAP/TD [facility]ACCINES [facility] 00:00:00 (1 - Tdap) [code = Medical C enter DTAP/TDAP/TD VACCINES (1 - Tdap)] Future Scheduled 1982 DTAP/TDAP/TD [facility]ACCINES [facility] 00:00:00 (1 - Tdap) [code = Medical C enter DTAP/TDAP/TD VACCINES (1 - Tdap)] Future Scheduled 1982 DTAP/TDAP/TD [facility]ACCINES [facility] 00:00:00 (1 - Tdap) [code = Medical C enter DTAP/TDAP/TD VACCINES (1 - Tdap)] Future Scheduled 1982 DTAP/TDAP/TD [facility]ACCINES [facility] 00:00:00 (1 - Tdap) [code = Medical C enter DTAP/TDAP/TD VACCINES (1 - Tdap)] Future Scheduled 1982 DTAP/TDAP/TD [facility]ACCINES [facility] 00:00:00 (1 - Tdap) [code = Medical C enter DTAP/TDAP/TD VACCINES (1 - Tdap)] Future Scheduled 1982 DTAP/TDAP/TD [facility]ACCINES [facility] 00:00:00 (1 - Tdap) [code = Medical C enter DTAP/TDAP/TD VACCINES (1 - Tdap)] Future Scheduled 1982 DTAP/TDAP/TD [facility]ACCINES [facility] 00:00:00 (1 - Tdap) [code = Medical C enter DTAP/TDAP/TD VACCINES (1 - Tdap)] Future Scheduled 1982 DTAP/TDAP/TD [facility]ACCINES [facility] 00:00:00 (1 - Tdap) [code = Medical C enter DTAP/TDAP/TD VACCINES (1 - Tdap)] Future Scheduled 1982 DTAP/TDAP/TD [facility]ACCINES [facility] 00:00:00 (1 - Tdap) [code = Medical C enter DTAP/TDAP/TD VACCINES (1 - Tdap)] Future Scheduled 1982 DTAP/TDAP/TD [facility]ACCINES [facility] 00:00:00 (1 - Tdap) [code = Medical C enter DTAP/TDAP/TD VACCINES (1 - Tdap)] Future Scheduled 1981 HE[facility]ITIS C [facility]CRE[facility] [code = HEPATITIS C Medical Center SCREENING] Future Scheduled 1981 HE[facility]ITIS C [facility]:00 [code = HEPATITIS C Medical Center SCREENING] Future Scheduled 1981 HE[facility]ITIS C [facility]:00 [code = HEPATITIS C Medical Center SCREENING] Future Scheduled 1981 HE[facility]ITIS C [facility]:00:00 [code = HEPATITIS C Medical Center SCREENING] Future Scheduled 1981 HE[facility]ITIS C [facility]:00:00 [code = HEPATITIS C Medical Center SCREENING] Future Scheduled 1981 HE[facility]ITIS C [facility]:00:00 [code = HEPATITIS C Medical Center SCREENING] Future Scheduled 1981 HE[facility]ITIS C [facility]:00:00 [code = HEPATITIS C Medical Center SCREENING] Future Scheduled 1981 HEPATITIS C [facility]:00:00 [code = HEPATITIS C Medical Center SCREENING] Future Scheduled 1981 [facility]ITIS C [facility]:00:00 [code = HEPATITIS C Medical Center SCREENING] Future Scheduled 1981 [facility]ITIS C [facility]:00:00 [code = HEPATITIS C Medical Center SCREENING] Future Scheduled 1981 HE[facility]ITIS C [facility]:00:00 [code = HEPATITIS C Medical Center SCREENING] Future Scheduled 1981 HE[facility]ITIS C [facility]:00:00 [code = HEPATITIS C Medical Center SCREENING] Future Scheduled 1981 HE[facility]ITIS C [facility]:00:00 [code = HEPATITIS C Medical Center SCREENING] Future Scheduled 1981 [facility]ITIS C [facility]:00:00 [code = HEPATITIS C Medical Center SCREENING] Future Scheduled 1981 [facility]ITIS C [facility]:00:00 [code = HEPATITIS C Medical Center SCREENING] Future Scheduled 1981 HE[facility]ITIS C [facility]:00:00 [code = HEPATITIS C Medical Center SCREENING] Future Scheduled 1981 [facility]ITIS C [facility]:00:00 [code = HEPATITIS C Medical Center SCREENING] Future Scheduled [address] [facility] 00:00:00 Counseling and Medical Cente r Screening (12+) [code = Tobacco Cessation Counseling and Screening (12+)] Future Scheduled [address] [facility] 00:00:00 Counseling and Medical Cente r Screening (12+) [code = Tobacco Cessation Counseling and Screening (12+)] Future Scheduled [address] [facility] 00:00:00 Counseling and Medical Cente r Screening (12+) [code = Tobacco Cessation Counseling and Screening (12+)] Future Scheduled [address] [facility] 00:00:00 Counseling and Medical Cente r Screening (12+) [code = Tobacco Cessation Counseling and Screening (12+)] Future Scheduled [address] [facility] 00:00:00 Counseling and Medical Cente r Screening (12+) [code = Tobacco Cessation Counseling and Screening (12+)] Future Scheduled [address] [facility] 00:00:00 Counseling and Medical Cente r Screening (12+) [code = Tobacco Cessation Counseling and Screening (12+)] Future Scheduled [address] [facility] 00:00:00 Counseling and Medical Cente r Screening (12+) [code = Tobacco Cessation Counseling and Screening (12+)] Future Scheduled [address] [facility] 00:00:00 Counseling and Medical Cente r Screening (12+) [code = Tobacco Cessation Counseling and Screening (12+)] Future Scheduled [address] [facility] 00:00:00 Counseling and Medical Cente r Screening (12+) [code = Tobacco Cessation Counseling and Screening (12+)] Future Scheduled [address] [facility] 00:00:00 Counseling and Medical Cente r Screening (12+) [code = Tobacco Cessation Counseling and Screening (12+)] Future Scheduled [address] [facility]:00 [facility] breast (procedure) [code = [id number]] Future Scheduled [address] [facility] 00:00:00 (combo) [code = CT Medical C enter Colonography (combo)] Future Scheduled [address] [facility] 00:00:00 [facility] colon (procedure) [code = 663962085] Future Scheduled [address] [facility] 00:00:00 [facility] colon (procedure) [code = 723877427] Future Scheduled [address] [facility] 00:00:00 [facility] colon (procedure) [code = 179620535] Future Scheduled [address] [facility] 00:00:00 [facility] colon (procedure) [code = 915683948] Future Scheduled 1963 Sigmoidoscopy [facility]] [facility] Cent[facility] Future Scheduled [address] [facility] 00:00:00 [facility] breast (procedure) [code = 281298082] Future Scheduled [address] [facility] 00:00:00 (combo) [code = CT Medical C enter Colonography (combo)] Future Scheduled [address] [facility] 00:00:00 malignant [facility] colon (procedure) [code = 759238703] Future Scheduled [address] [facility] 00:00:00 malignant [facility] of [facility] colon (procedure) [code = 399266599] Future Scheduled [address] [facility] 00:00:00 malignant [facility] of [facility] colon (procedure) [code = 318418597] Future Scheduled [address] [facility] 00:00:00 [facility] colon (procedure) [code = 086695390] Future Scheduled 1963 Sigmoidoscopy [facility]] [facility] Cent[facility] Future Scheduled [address] [facility] 00:00:00 malignant [facility] breast (procedure) [code = 155461982] Future Scheduled [address] [facility] 00:00:00 (combo) [code = CT Medical C enter Colonography (combo)] Future Scheduled [address] [facility] 00:00:00 malignant neoplasm [facility] colon (procedure) [code = 682893347] Future Scheduled [address] [facility] 00:00:00 malignant [facility]oplasm of [facility] colon (procedure) [code = 720465343] Future Scheduled [address] [facility] 00:00:00 malignant [facility]oplasm of [facility] colon (procedure) [code = 198052405] Future Scheduled [address] [facility] 00:00:00 malignant [facility] of [facility] colon (procedure) [code = 703663003] Future Scheduled 1963 Sigmoidoscopy [facility]] [facility] Cent[facility] Future Scheduled [address] [facility] 00:00:00 [facility] breast (procedure) [code = 675062464] Future Scheduled [address] [facility] 00:00:00 (combo) [code = CT Medical C enter Colonography (combo)] Future Scheduled [address] [facility] 00:00:00 [facility] colon (procedure) [code = 351598501] Future Scheduled [address] [facility] 00:00:00 malignant [facility] of [facility] colon (procedure) [code = 403111321] Future Scheduled [address] [facility] 00:00:00 malignant [facility] of [facility] colon (procedure) [code = 766118669] Future Scheduled [address] [facility] 00:00:00 malignant [facility]oplasm of [facility] colon (procedure) [code = 817018268] Future Scheduled 1963 Sigmoidoscopy [facility]code [facility]] [facility] Future Scheduled [address] [facility] 00:00:00 malignant neoplasm of [facility] breast (procedure) [code = 164663497] Future Scheduled [address] [facility] 00:00:00 (combo) [code = CT Medical C enter Colonography (combo)] Future Scheduled [address] [facility] 00:00:00 malignant [facility] colon (procedure) [code = 742243174] Future Scheduled [address] [facility] 00:00:00 malignant [facility]oplasm of [facility] colon (procedure) [code = 759373136] Future Scheduled [address] [facility] 00:00:00 [facility] of [facility] colon (procedure) [code = 659952880] Future Scheduled [address] [facility] 00:00:00 malignant [facility]oplasm of [facility] colon (procedure) [code = 162911883] Future Scheduled 1963 Sigmoidoscopy [facility]] Medical [facility] [place] [facility] Future Scheduled [address] [facility] 00:00:00 malignant neoplasm [facility] breast (procedure) [code = 651455181] Future Scheduled [address] [facility] 00:00:00 (combo) [code = CT Medical C enter Colonography (combo)] Future Scheduled [address] [facility] 00:00:00 malignant [facility] breast (procedure) [code = 164846187] Future Scheduled [address] [facility] 00:00:00 (combo) [code = CT Medical C enter Colonography (combo)] Future Scheduled [address] [facility] 00:00:00 [facility] colon (procedure) [code = 330933922] Future Scheduled [address] [facility] 00:00:00 malignant [facility] colon (procedure) [code = 940450314] Future Scheduled [address] [facility] 00:00:00 malignant [facility] colon (procedure) [code = 712807446] Future Scheduled [address] [facility] 00:00:00 [facility] colon (procedure) [code = 186556855] Future Scheduled 1963 S[facility] [address] [facility] 00:00:00 malignant [facility] colon (procedure) [code = 501919688] Future Scheduled [address] [facility] 00:00:00 [facility] colon (procedure) [code = 490962048] Future Scheduled [address] [facility] 00:00:00 [facility] breast (procedure) [code = 107030930] Future Scheduled [address] [facility] Test 00:00:00 (combo) [code = CT Medical C enter Colonography (combo)] Future Scheduled [address] [facility] Test 00:[facility]:00 [facility] colon (procedure) [code = 012523378] Future Scheduled [address] [facility] Test 00[facility]00:00 [facility] colon (procedure) [code = 324011131] Future Scheduled [address] [facility] Test 00:00:00 [facility] colon (procedure) [code = 548830194] Future Scheduled [address] [facility] Test 00:00:00 [facility] colon (procedure) [code = 603783352] Future Scheduled [address] [facility] Test 00:00:00 [facility] colon (procedure) [code = 569529104] Future Scheduled 1963 [facility]oid[facility]] Medical [facility] [place] [facility] Future Scheduled [address] [facility] Test 00[facility]00:00 malignant ne[facility] colon (procedure) [code = 758215270] Future Scheduled [address] [facility] Test 00:00:00 malignant [facility] breast (procedure) [code = 600246136] Future Scheduled 1963 S[facility]oidoscopy [facility] 00:[facility]oscopy] Medical [facility] [place] [facility] Future Scheduled [address] [facility] Test 00:00:00 (combo) [code = CT Medical C enter Colonography (combo)] Future Scheduled [address] [facility] Test 00:00:00 malignant [facility] colon (procedure) [code = 932881483] Future Scheduled [address] [facility] Test 00:00:00 [facility] colon (procedure) [code = 587661115] Future Scheduled [address] [facility] Test 00:00:00 [facility] colon (procedure) [code = 222511399] Future Scheduled [address] [facility] Test 00:00:00 malignant [facility] colon (procedure) [code = 167593177] Future Scheduled 1963 [facility] 00[facility]] Medical [facility] [place] Future Scheduled [address] [facility] Test 00:00:00 malignant [facility] breast (procedure) [code = 456497931] Future Scheduled [address] [facility] Test 00:00:00 (combo) [code = CT Medical C enter Colonography (combo)] Future Scheduled [address] [facility] Test 00:00:00 [facility] colon (procedure) [code = 862685190] Future Scheduled [address] [facility] Test 00:00:00 malignant [facility] colon (procedure) [code = 056479414] Future Scheduled [address] [facility] Test 00:00:00 malignant [facility] colon (procedure) [code = 318694626] Future Scheduled [address] [facility] Test 00:00:00 malignant [facility] colon (procedure) [code = 926495527] Future Scheduled 1963 Sigmoidoscopy [facility] 00:[facility]oscopy] Medical Anaye r Future Scheduled [address] [facility] Test 00:00:00 malignant ne[facility] breast (procedure) [code = 245266374] Future Scheduled [address] [facility] Test 00:00:00 (combo) [code = CT Medical C enter Colonography (combo)] Future Scheduled [address] [facility] Test 00:00:00 malignant [facility] colon (procedure) [code = 012600598] Future Scheduled [address] [facility] Test 00:00:00 malignant [facility] colon (procedure) [code = 191450352] Future Scheduled [address] [facility] Test 00:00:00 malignant [facility] colon (procedure) [code = 844113861] Future Scheduled [address] [facility] Test 00:00:00 malignant [facility] colon (procedure) [code = 574488386] Future Scheduled 1963 Sigmoidoscopy [facility] 00:[facility]oscopy] Medical Cente r Future Scheduled [address] [facility] Test 00:00:00 malignant [facility]oplasm [facility] breast (procedure) [code = 546415601] Future Scheduled [address] [facility] Test 00:00:00 (combo) [code = CT Medical C enter Colonography (combo)] Future Scheduled [address] [facility] Test 00:00:00 [facility] colon (procedure) [code = 654358482] Future Scheduled [address] [facility] Test 00:00:00 malignant [facility] colon (procedure) [code = 789775574] Future Scheduled [address] [facility] Test 00:00:00 malignant [facility] colon (procedure) [code = 549910327] Future Scheduled [address] [facility] Test 00:00:00 malignant [facility] colon (procedure) [code = 613353734] Future Scheduled 1963 [facility]oidoscopy [facility] 00:[facility]] Medical [facility] [place] [facility] Future Scheduled [address] [facility] Test 00:00:00 malignant [facility]oplasm [facility] breast (procedure) [code = 649592207] Future Scheduled [address] [facility] Test 00:00:00 (combo) [code = CT Medical C enter Colonography (combo)] Future Scheduled [address] [facility] Test 00:00:00 malignant [facility] colon (procedure) [code = 364585088] Future Scheduled [address] [facility] Test 00:00:00 malignant [facility] colon (procedure) [code = 323169360] Future Scheduled [address] [facility] Test 00:00:00 malignant [facility] colon (procedure) [code = 224211512] Future Scheduled [address] [facility] Test 00:00:00 malignant [facility]oplasm [facility] colon (procedure) [code = 581968237] Future Scheduled 1963 [facility]oidoscopy [facility] 00:[facility]] Medical Cente r Future Scheduled [address] [facility] Test 00:00:00 malignant neoplasm [facility] breast (procedure) [code = 665210129] Future Scheduled [address] [facility] Test 00:00:00 (combo) [code = CT Medical C enter Colonography (combo)] Future Scheduled [address] [facility] Test 00:00:00 malignant [facility] colon (procedure) [code = 434015959] Future Scheduled [address] [facility] Test 00:00:00 malignant [facility] colon (procedure) [code = 477126167] Future Scheduled [address] [facility] Test 00:00:00 malignant [facility] colon (procedure) [code = 226100553] Future Scheduled [address] [facility] Test 00:00:00 malignant [facility] colon (procedure) [code = 718966399] Future Scheduled 1963 [facility]igmoidoscopy [facility] 00:[facility]] Medical [facility] [place] [facility] Future Scheduled [address] [facility] Test 00:00:00 malignant neoplasm [facility] breast (procedure) [code = 708917859] Future Scheduled [address] [facility] Test 00:00:00 (combo) [code = CT Medical C enter Colonography (combo)] Future Scheduled [address] [facility] Test 00:00:00 malignant [facility] colon (procedure) [code = 391350473] Future Scheduled [address] [facility] Test 00:00:00 malignant [facility] colon (procedure) [code = 712183288] Future Scheduled [address] [facility] Test 00:00:00 malignant [facility] colon (procedure) [code = 424608082] Future Scheduled [address] [facility] Test 00:00:00 malignant neoplasm [facility] colon (procedure) [code = 425579946] Future Scheduled 1963 [facility]igmoidoscopy [facility] 00:[facility]oscopy] Medical [facility] [place] [facility] Future Scheduled [address] [facility] Test 00[facility]00:00 malignant neoplasm [facility] breast (procedure) [code = 456761693] Future Scheduled [address] [facility] Test 00:00:00 (combo) [code = CT Medical C enter Colonography (combo)] Future Scheduled [address] [facility] Test 00:00:00 malignant [facility]oplasm [facility] colon (procedure) [code = 360988044] Future Scheduled [address] [facility] Test 00:00:00 malignant neoplasm [facility] colon (procedure) [code = 707808063] Future Scheduled [address] [facility] Test 00:00:00 malignant neoplasm [facility] colon (procedure) [code = 823807778] Future Scheduled [address] [facility] Test 00:00:00 malignant [facility]oplasm [facility] colon (procedure) [code = 763059906] Future Scheduled 1963 [facility]oidoscopy [facility] 00:[facility]] Medical [facility] Future Scheduled [address] [facility] Test 00:00:00 malignant neoplasm [facility] Center breast (procedure) [code = 653468669] Future Scheduled [address] [facility] Test 00:00:00 (combo) [code = CT Medical C enter Colonography (combo)] Future Scheduled [address] [facility] Test 00:00:00 malignant neoplasm [facility] colon (procedure) [code = 751947087] Future Scheduled [address] [facility] Test 00:00:00 malignant ne[facility] colon (procedure) [code = 148455203] Future Scheduled [address] [facility] Test 00:00:00 malignant neoplasm [facility] colon (procedure) [code = 198171221] Future Scheduled [address] [facility] Test 00:00:00 malignant neoplasm of [facility] Center colon (procedure) [code = 162977655] Future Scheduled 1963 Sigmoidoscopy [facility] 00:[facility]] Medical Cente r Encounters Start End Encounter Admission Attending Care Care Encounter Source Date/Time Date/Time Type Type Clinicians Facility Department ID 2022-09-23 Outpatient [facility] [id number] [place] 10:30:17 [id number] [facility] 2022-09-17 Outpatient [facility] [id number] [place] 10:15:38 [id number] [facility] 2022-09-02 Outpatient [facility] [id number] [place] 11:19:41 [id number] [facility] 2022-08-28 Outpatient [facility] [id number] [place] 08:34:05 [id number] [facility] 2022-08-20 Outpatient [facility] [id number] [place] 09:28:05 [id number] [facility] 2022-08-11 Outpatient [facility] [id number] [place] 16:02:03 [id number] [facility] 2022-07-28 Outpatient [facility] [id number] [place] 09:55:18 [id number] [facility] 2022-05-27 Outpatient R INGA [facility] SOR [id number] Univers 15:20:24 RHETT [facility] 2022-05-27 Outpatient INGA [facility] SOR [id number] Univers 11:58:36 RHETT [facility] 2021-08-[address] [facility] [id number] Univers 12:48:28 [facility] 2023-03-19 2023-03-[address] [facility] [id number] Univers 10:30:00 10:30:00 MARCIAL carroll [facility] 2022-10-01 2022-10-01 [facility] [id number] [place] 14:45:00 14:45:00 [facility] 2022-09-24 2022-09-24 Office Elmer [facility] 1.2.840.114 [id number] [place] 13:15:00 13:44:29 Visit Barry TULSA 350.1.13.58 H [facility] MEDICAL 9.2.7.2.686 [address] 1 [id number] 5 2022-09-24 2022-09-24 [facility] [id number] [place] 09:45:00 09:45:00 [facility]24 2022[facility]09-24 [facility] 1.2.840.114 [id number] Univers 00:00:00 00:00:00 Louis Reyes HEALTH 350.1.13.10 [facility] 4.2.7.2.686 Branden as VIKTOR?BLEA [id number] [facility] [address] [facility] 2022-09-22 2022-09-22 Emergency E GLASS, MHSE MHSE [id number] 10:06:00 11:45:[address] [facility] 2022-09-18 2022-09-18 [facility] [id number] Univers 10:30:00 10:54:17 MARCIAL carroll [facility] 2022-09-18 2022-09-18 [facility] 1.2.840.114 [id number] Univers 10:30:00 10:54:17 Visit Marcial [facility] 350.1.13.10 it y of [place] 4.2.7.2.686 Branden as VIKTOR?BLEA [id number] [address] [facility] 2022-09-17 2022-09-17 Office Elmer [facility] 1.2.840.114 [id number] [place] 10:45:00 12:09:33 Visit Barry TULSA 350.1.13.58 H [facility] 9.2.7.2.686 [address] 1 [id number] 5 2022-09-07 2022-09-09 Inpatient PAYNE MHSE MHSE [id number] MH 05:32:00 12:44:[address] [facility] 2022-09-02 2022-09-02 Outpatient [facility] [id number] [place] 00:00:00 11:59:21 Health 2022-09-02 2022-09-02 [facility] [id number] [place] 10:45:00 11:59:05 BARRY Health 2022-08-27 2022-08-27 [facility] [id number] [place] 10:45:00 10:45:00 [facility] 2022-08-21 2022-08-21 Outpatient [facility] [id number] [place] 00:00:00 11:20:58 Health 2022-08-21 2022-08-21 Outpatient [facility] [id number] [place] 00:05:00 11:20:47 Health 2022-08-21 2022-08-21 [facility] [id number] [place] 10:15:00 11:20:01 [facility] 2022-08-06 2022-08-06 [facility] 1.2.840.114 [id number] [place] 10:15:00 11:25:11 Visit Barry TULSA 350.1.13.58 H [facility] MEDICAL 9.2.7.2.686 [place] 3 [id number] 5 2022-08-06 2022-08-06 Outpatient ELMER [facility] [id number] [place] 10:15:00 10:15:00 [facility] 2022-07-30 2022-07-30 Office [facility] 1.2.840.114 [id number] [place] 10:15:00 10:41:42 Visit Barry TULSA 350.1.13.58 [facility] MEDICAL 9.2.7.2.686 [place] 7 [id number] 5 2022-07-23 2022-07-23 Office Elmer [facility] 1.2.840.114 [id number] [place] 14:45:00 15:50:46 Visit Barry TULSA 350.1.13.58 H [facility] MEDICAL 9.2.7.2.686 [place] 7 [id number] 5 2022-07-14 2022-07-17 Inpatient [facility] [id number] [facility] 10:32:00 16:00:00 kurtis Mera 00 l [facility] 2022-07-14 2022-07-17 In[id number] [facility] 05:32[facility]00 [facility]:00[facility] 2022-07-10 2022-07-10 Office Elmer [facility] 1.2.840.114 [id number] [place] 10:45:00 11:24:21 Visit Barry MELGAR 350.1.13.58 H [facility] MEDICAL 9.2.7.2.686 [place] 4 [id number] 5 2022-06-26 2022-06-[address] [facility] [id number] [facility] 09:00:00 09:00:00 RADHA carroll [facility] 2022-06-24 2022-06-24 Office Elmer [facility] 1.2.840.114 [id number] [place] 08:30:00 09:19:49 Visit Barry MELGAR 350.1.13.58 H [facility] 9.2.7.2.686 [place] 0 [id number] 5 2022-06-19 2022-06-19 Patient [facility] 1.2.840.114 [id number] Univers 00:00:00 00:00:00 Secure Msg Marcial HEALTH 350.1.13.10 ity of [place] 4.2.7.2.686 Branden as VIKTOR?BLEA [id number] [address] [facility] 2022-06-19 2022-06-19 Telephone [facility] 1.2.799.189 [id number] Univers 00:00:00 00:00:00 Marcial HEALTH 350.1.13.10 it y of [place] 4.2.7.2.686 Branden as VIKTOR?BLEA [id number] [address] [facility] 2022-06-17 2022-06-17 Telephone [facility] 1.2.754.804 [id number] Univers 00:00:00 00:00:00 Marcail [place] 350.1.13.10 i ty of [place].2.7.2.[place] [id number] [address] 2022-06-17 2022-06-17 Telephone [facility] 1.2.166.218 [id number] Univers 00:00:00 00:00:00 Marcial HEALTH 350.1.13.10 it y of [place] 4.2.7.2.686 Branden as VIKTOR?BLEA [id number] Az clemente LIZ [address] [place] [address] [facility] 2022-06-16 2022-06-16 Assistant Research Scientist Lab, Ang - Db [facility] 1.2.840.1 14 [id number] Univers 16:30:00 16:30:26 Visit Marcial Dobbs 350.1.13.10 ity of [place] 4.2.7.2.686 Branden as VIKTOR?BLEA [id number] Az clemente LIZ [address] [place] [address] [facility] 2022-06-16 2022-06-[address] [facility] [id number] Univers 16:30:00 16:30:00 MARCIAL clintonleigh [facility] 2022-06-16 2022-06-16 Telephone [facility] 1.2.306.434 [id number] Univers 00:00:00 00:00:00 Marcial [facility] 350.1.13.10 it y of [place] 4.2.7.2.686 Branden as VIKTOR?BLEA [id number] Az clemente LANDON[address] [facility] 2022-06-12 2022-06-12 Assistant Research Scientist Lab, Ang - Db [facility] 1.2.840.1 14 [id number] Univers 16:15:00 16:17:26 Visit Marcial Dobbs [facility] 350.1.13.10 ity of [place] 4.2.7.2.686 Branden as VIKTOR?BLEA [id number] Az clemente LANDON[address] [facility] 2022-06-12 2022-06-[address] [facility] [id number] Univers 16:15:00 16:15:00 MARCIAL clintonleigh [facility] 2022-06-12 2022-06-[address] [facility] [id number] Univers 15:30:00 15:55:09 MARCIAL clintonleigh [facility] 2022-06-12 2022-06-12 Office [facility] 1.2.840.114 [id number] Univers 15:30:00 15:55:09 Visit Marcial [facility] 350.1.13.10 it y [facility] 4.2.7.2.686 Branden as VIKTOR?BLEA [id number] Az dical [address] [facility] 2022-06-12 2022-06-[address] [facility] [id number] Univers 15:30:00 15:55:09 MARCIAL carroll [facility] 2022-06-11 2022-06-11 Outpatient [facility] [id number] [place] 00:00:00 16:22:00 Health 2022-06-11 2022-06-11 Office Elmer [facility] 1.2.840.114 [id number] [place] 09:30:00 10:49:04 Visit Barry MELGAR 350.1.13.58 [facility] 9.2.7.2.686 PLAZA 1 [id number] 2022-06-09 2022-06-09 Telephone [facility] 1.2.993.384 [id number] Univers 00:00:00 00:00:00 [facility] 350.1.13.10 it y of [facility] 4.2.7.2.686 Branden as VIKTOR?BLEA [id number] [facility] [address] [facility] 2022-06-08 2022-06-[address] [facility] [id number] Univers 08:30:00 08:30:00 leigh [facility] 2022-06-08 2022-06-08 Outpatient FOG_A_Provi AOSM AOSM [id number] Grace 00:00:00 00:00:00 alyx [id number] Orthop e dic Sports Medicin e 2022-06-08 2022-06-08 [facility]phone [facility] 1.2.725.280 [id number] Univers 00:00:00 00:00:00 [facility] 350.1.13.10 it y of [place] 4.2.7.2.686 Branden as VIKTOR?BLEA [id number] Az dical [address] [facility] 2022-06-06 2022-06-06 Emergency Berry, 1.2.840.1 [id number] Methodi 18:21:00 22:14:[address] Yaya 3.430.2.7 Hospit a .3.493942 l .8 2022-06-06 2022-06-06 Emergency Berry, 1.2.840.1 [id number] Methodi 18:21:00 22:14:[address] Yaya 3.430.2.7 Hospit a .3.812630 l .8 2022-06-06 2022-06-06 Travel 1.2.840.1 1.2.337.847 [id number] Methodi 00:00:00 00:00:[address] 3.430.2.7 0.2.7.3.698 Ho spita .3.541953 084.8 l .8 2022-06-06 2022-06-06 Travel 1.2.840.1 1.2.990.038 [id number] Methodi 00:00:00 00:00:[address] 3.430.2.7 0.2.7.3.698 Ho spita .3.959733 084.8 l .8 2022-06-04 2022-06-04 Outpatient Kurtis XIONG [facility] SOR [id number] Univers 07:10:00 07:10:00 RHETT carroll [facility] 2022-05-27 2022-05-[address] [facility] [id number] Univers 08:50:00 10:25:10 RHETT carroll [facility] 2022-05-27 2022-05-27 Office [facility] 1.2.840.114 [id number] Univers 08:50:00 10:25:10 Visit Rhett MCKEE 350.1.13.10 it of [facility] 4.2.7.2.686 [facility] AT [id number] [address] 2022-05-27 2022-05-[address] [facility] [id number] Univers 08:50:00 10:25:10 RHETT carroll [facility] 2022-05-27 2022-05-27 Office [facility] 1.2.840.114 [id number] Univers 08:50:00 10:25:10 Visit Rhett MCKEE 350.1.13.10 ity of [place].2.[place] C[place] AT [id number] Az clemente DOUGHERTY [address] [place] [address] 2022-05-27 2022-05-[address] [facility] [id number] Univers 08:50:00 08:50:00 RHETT carroll [facility] 2022-05-27 2022-05-27 Telephone [facility] 1.2.842.688 [id number] Univers 00:00:00 00:00:00 Marcial HEALTH 350.1.13.10 it y of [place] 4.2.7.2.686 Branden as VIKTOR?BLEA [id number] Az clemente LIZ [address] [place] [address] [facility] 2022-05-27 2022-05-27 Telephone Rinku [facility] 1.2.674.147 [id number] Univers 00:00:00 00:00:00 Marcial HEALTH 350.1.13.10 it y of [place] 4.2.7.2.686 Branden as VIKTOR?BLEA [id number] Az clemente LIZ [address] [place] [address] [facility] 2022-05-27 2022-05-27 Telephone Rinku [facility] 1.2.520.011 [id number] Univers 00:00:00 00:00:00 Marcial HEALTH 350.1.13.10 it y of [place] 4.2.7.2.686 Branden as VIKTOR?BLEA [id number] Az clemente Arriaga [facility] OFFICE [facility] 2022-05-27 2022-05-27 Telephone [facility] 1.2.445.782 [id number] Univers 00:00:00 00:00:00 Marcial HEALTH 350.1.13.10 it y of [place] 4.2.7.2.686 Branden as VIKTOR?BLEA [id number] Az clemente LIZ [address] [place] [address] [facility] 2022-05-26 2022-05-26 Assistant Research Scientist Lab, Ang - Db [facility] 1.2.840.1 14 [id number] Univers 07:30:00 07:45:00 Visit Marcial Dobbs 350.1.13.10 ity of [place] 4.2.7.2.686 Branden as VIKTOR?BLEA [id number] Az clemente LANDON [address] [facility] 2022-05-26 2022-05-[address] [facility] [id number] Univers 07:30:00 07:30:00 MARCIAL carroll [facility] 2022-05-25 2022-05-[address] [facility] [id number] Univers 14:00:00 14:55:12 MARCIAL carroll [facility] 2022-05-25 2022-05-25 Office [facility] 1.2.840.114 [id number] Univers 14:00:00 14:55:12 Visit Marcial [facility] 350.1.13.10 it y of [place] 4.2.7.2.686 Branden as VIKTOR?BLEA [id number] Az clemente [address] [facility] 2022-05-25 2022-05-[address] [facility] [id number] Univers 14:00:00 14:55:12 MARCIAL carroll [facility] 2022-05-25 2022-05-[address] [facility] [id number] Univers 14:00:00 14:00:00 MARCIAL carroll [facility] 2022-05-23 2022-05-23 Outpatient [address]ROBERTAAdam [facility] [id number] Univers 11:20:00 11:47:56 YAMINI leigh [facility] 2022-05-23 2022-05-23 Urgent Aris [facility] 1.2.840.114 [id number] Univers 11:20:00 11:47:56 Care Yamini [facility] 350.1.13.10 it y of [place] 4.2.7.2.686 Branden as VIKTOR?BLEA [id number] Az clemente [facility] [address] [facility] 2022-05-20 2022-05-20 [facility] 1.2.086.761 [id number] Univers 17:49:00 23:59:00 Encounter Arnoldo HEALTH 350.1.13.10 ity of [place] 4.2.7.2.686 Branden as VIKTOR?BLEA [id number] Az clemente LIZ 808 [facility] OFFICE [facility] 2022-05-20 2022-05-20 Outpatient R [facility] [id number] Univers 17:31:41 17:48:00 ARNOLDO ity o f [facility] 2022-05-20 2022-05-20 [facility] 1.2.564.693 [id number] Univers 17:31:41 17:48:00 Encounter Arnoldo HEALTH 350.1.13.10 ity of [place] 4.2.7.2.686 Branden as VIKTOR?BLEA [id number] Az clemente LIZ 808 [facility] OFFICE [facility] 2022-05-20 2022-05-20 [facility]gent [facility] 1.2.840. 114 [id number] Univers 17:00:00 17:37:58 Care Eliecer Nicol HEALTH 350.1.13.10 ity of [place] 4.2.7.2.686 Branden as VIKTOR?BLEA [id number] Az dicpaul LIZ 370 [facility] OFFICE [facility] 2022-05-20 2022-05-20 Telephone [facility] 1.2.840.114 [id number] Univers 00:00:00 00:00:00 Arnoldo HEALTH 350.1.13.10 i ty of [place] 4.2.7.2.686 Branden as VIKTOR?BLEA [phone] Az clemente LIZ 370 [facility] OFFICE [facility] 2022-05-20 2022-05-20 Telephone [facility] 1.2.778.127 [id number] Univers 00:00:00 00:00:00 Marcial HEALTH 350.1.13.10 it y of [place] 4.2.7.2.686 Branden as VIKTOR?BLEA [id number] Az clemente LIZ 044 [facility] OFFICE [facility] 2022-05-18 2022-05-[address] [facility] [id number] [facility] 16:00:00 16:43:58 MARCIAL carroll [facility] 2022-05-18 2022-05-18 Office Rinku [facility] 1.2.840.114 [id number] Univers 16:00:00 16:43:58 Visit Marcial CINTRON 350.1.13.10 it y [facility] 4.2.7.2.686 Branden as VIKTOR?BLEA [id number] Az dical KNEY 044 [facility] OFFICE [facility] 2022-04-27 2022-04-27 [facility] [id number] Univers 13:45:00 15:24:22 RADHA carroll [facility] 2022-04-27 2022-04-27 Ancillary Paulina Velasquez [facility] 1.2.84 0.114 [id number] [facility] 13:45:00 15:24:22 Visit Radha Galindo 350.1.13.10 ity of [facility] 4.2.7.2.[place] [id number] Az dical NAL 179 [facility] 2022-04-15 2022-04-15 Ancillary Pedro Nick Dunbar [facility] 1.2.840. 114 [id number] Univers 14:30:00 15:15:00 Visit Radha Galindo 350.1.13.10 ity of [facility] 4.2.7.2.[place] [id number] Az dical NAL 179 [facility] 2022-04-02 2022-04-02 Outpatient MARISELA [facility] [id number] [facility] 08:38:32 12:20:33 SHERICE vega of Medicin e 2022-03-31 2022-03-31 Ancillary Paulina Velasquez [facility] 1.2.84 0.114 [id number] Univers 10:15:00 11:00:00 Visit Radha Galindo 350.1.13.10 ity of [facility] 4.2.7.2.686 [place] [id number] Az dical NAL 179 [facility] 2022-03-26 2022-03-26 Ancillary Kari Peres [facility] 1.2. 840.114 [id number] Univers 14:30:00 15:15:00 Visit Radha Galindo 350.1.13.10 ity of [place] 4.2.7.2.[place] [id number] [facility] 179 [facility] 2022-03-24 2022-03-24 Ancillary Paulina Velasquez [facility] 1.2.84 0.114 [id number] [facility] 14:30:00 15:15:00 Visit Radha Galindo 350.1.13.10 ity of [place] 4.2.7.2.686 [place] [id number] Az clemente [facility] 179 [facility] 2022-03-16 2022-03-[address] [facility] [id number] [facility] 10:15:00 11:11:20 RADHA carroll [facility] 2022-03-16 2022-03-16 Ancillary Paulina Velasquez [facility] 1.2.84 0.114 [id number] [facility] 10:15:00 11:11:20 Visit Radha Galindo 350.1.13.10 ity of [facility] 4.2.7.2.[place] [id number] [facility] 179 [facility] 2022-02-23 2022-02-23 Office Jesus [facility] 1.2.840.114 [id number] Univers 09:00:00 09:30:00 Visit [facility] 350.1.13.10 it y [facility] 4.2.7.2.686 Branden as VIKTOR?BLEA [phone] Az clemente [address] OFFICE BUILDING 2022-02-23 2022-02-[address] [facility] [id number] Univers 09:00:00 09:00:00 STERLING carroll [facility] 2022-02-20 2022-02-[address] [facility] [id number] [facility] 19:32:00 01:26:00 [facility] 2022-02-20 2022-02-21 Emergency ER PRAVEEN [facility] Emergency [id number] SLE 19:32:00 01:26:00 BRIAN 2022-02-20 2022-02-21 Emergency Praveen [facility] [id number] 19:32:00 01:26:00 [facility] 2022-02-20 2022-02-20 Outpatient ALEJANDRA ANTONIO [facility] [id number] [facility] 14:47:50 14:47:50 SHERICE vega of Medicin e 2022-02-20 2022-02-20 [facility] 1.2.840.114 [id number] Univers 09:30:00 10:00:00 Visit Marcial [facility] 350.1.13.10 it y of [place] 4.2.7.2.686 Branden as VIKTOR?BLEA [id number] [address] [facility] 2022-02-20 2022-02-[address] [facility] [id number] Univers 09:30:00 09:30:00 MARCIAL carroll of [facility] 2022-02-20 2022-02-20 Telephone Rinku [facility] 1.2.643.798 [id number] Univers 00:00:00 00:00:00 Marcial [facility] 350.1.13.10 it y of [place] 4.2.7.2.686 Branden as VIKTOR?BLEA [id number] [address] OFF[address] [facility] 2022-02-20 2022-02-20 Travel [facility] [id number] [facility] St 00:00:00 00:00:00 [facility] 2022-02-20 2022-02-20 Travel [facility] [id number] [facility] St 00:00:00 00:00:00 [facility] 2022-02-19 2022-02-19 Telephone Kamlesh [facility] PINKY .2.840.114 [id number] Univers 00:00:00 00:00:00 Health HDUSON 350.1.13.10 it y of [facility] 4.2.7.2.686 [place] [id number] [address] 2022-02-19 2022-02-19 Telephone [facility] 1.2.699.926 [id number] Univers 00:00:00 00:00:00 Marcial HEALTH 350.1.13.10 it y of [place] 4.2.7.2.686 Branden as VIKTOR?BLEA [id number] [address] [facility] 2022-02-18 2022-02-18 Nurse PINKY [address] 1.2.312.519 [id number] Univers 00:00:00 00:00:00 Triage Ludwin HUDSON 350.1.13.10 it y of [facility] 4.2.7.2.686 Branden as [phone] [address] 2022-02-18 2022-02-18 Nurse PINKY Main 1.2.049.384 [id number] Univers 00:00:00 00:00:00 Triage Ludwin HUDSON 350.1.13.10 it y of [facility] 4.2.7.2.686 Branden as [id number] [address] 2022-02-18 2022-02-18 Nurse PINKY Núñez 1.2.840.114 [id number] [facility] 00:00:00 00:00:00 Triage Benjamin REIDY 350.1.13.10 ity of [facility] 4.2.7.2.686 Branden as [id number] [address] 2022-02-17 2022-02-17 Outpatient AIDEN [facility] [id number] [facility] 13:09:42 16:19:33 RANULFO vega of Medicin e 2022-02-17 2022-02-17 Telephone [facility] 1.2.779.286 [id number] [facility] 00:00:00 00:00:00 Marcial HEALTH 350.1.13.10 it y of [place] 4.2.7.2.686 Branden as VIKTOR?BLEA [id number] [address] [facility] 2022-02-16 2022-02-[address] [facility] [id number] Univers 09:30:00 09:30:00 RADHA carroll [facility] 2022-02-16 2022-02-[address] [facility] [id number] Univers 09:30:00 09:30:00 [facility] 2022-02-16 2022-02-[address] [facility] [id number] Univers 09:30:00 09:30:00 RADHA [facility] 2022-02-09 2022-02-09 Outpatient AIDEN Adam [facility] [id number] [facility] 08:27:50 12:25:31 RANULFO Winters e of Medicin e 2022-02-06 2022-02-[address] [facility] [id number] Univers 00:00:00 00:00:00 IDANIA leigh [facility] 2022-02-06 2022-02-[address] [facility] [id number] Univers 00:00:00 00:00:00 [facility] 2022-02-05 2022-02-05 Telephone Rinku [facility] 1.2.268.097 [id number] Univers 00:00:00 00:00:[address] 350.1.13.10 it y of [place] 4.2.7.2.686 Branden as VIKTOR?BLEA [id number] Az clemente [address] MEDICAL OFFICE BUILDING 2022-02-04 2022-02-04 Telephone Seferino [facility] 1.2.840.114 [id number] Univers 00:00:00 00:00:00 Jackrabbit 350.1.13.10 i ty of [place].2.7.2.686 [place] [id number] [address] OFFICE BUILDING 2022-02-03 2022-02-[address] [facility] [id number] Univers 00:00:00 00:00:00 IDANIA [facility] 2022-02-03 2022-02-[address] [id number] Univers 00:00:00 00:00:00 [facility] 2022-01-30 2022-01-30 Telephone [facility] 1.2.840.114 [id number] Univers 00:00:00 00:00:00 Idania CINTRON 350.1.13.10 i ty of [place] 4[place]2.7.2.686 [place] [id number] [address] OFFICE BUILDING 2022-01-28 2022-01-[address] [facility] [id number] Univers 11:30:00 12:02:51 IDANIA carroll [facility] 2022-01-28 2022-01-28 Office [facility] 1.2.048.006 [id number] Univers 11:30:00 12:02:51 Visit Idania CINTRON 350.1.13.10 i ty of [place] 4.2.7.2.686 [place] [id number] [address] OFFICE BUILDING 2022-01-19 2022-01-19 Telephone [facility] 1.2.837.686 [id number] Univers 00:00:00 00:00:00 Marcial CINTRON 350.1.13.10 it y of [place] 4.2.7.2.686 Branden as VIKTOR?BLEA [id number] [address] [facility] 2022-01-13 2022-01-[address] [facility] [id number] Univers 13:30:00 14:14:35 MARCIAL carroll [facility] 2022-01-13 2022-01-13 Office [facility] 1.2.840.114 [id number] Univers 13:30:00 14:14:35 Visit Marcial CINTRON 350.1.13.10 it y of [place] 4.2.7.2.686 Branden as VIKTOR?BLEA [id number] [address] OFFICE BUILDING 2021-12-29 2021-12-29 Emergency X YANET, [facility] ERT [id number] Univers 14:55:00 16:47:00 FAUSTINO leigh [facility] 2021-12-29 2021-12-29 [facility] 1.2.840.114 [id number] Univers 14:55:00 16:47:00 Faustino B [place] 350.1.13.10 i ty of [place] 4.2.7.2.686 [place] C[place] [id number] [facility] [address] [place] 2021-12-29 2021-12-29 Telephone Mar [facility] 1.2.840.114 [id number] Univers 00:00:00 00:00:00 Wondiful A HEALTH 350.1.13.10 ity of [place] 4.2.7.2.686 Branden as VIKTOR?BLEA [phone] Az dical KNEY [address] [facility] 2021-12-22 2021-12-22 Orders Doctor PINKY 1.2.840.114 [id number] Univers 00:00:00 00:00:00 Only Unassigned, HUDSON 350.1.13.10 ity of [place] [facility] 4.2.7.2.686 Branden as [id number] [facility] [address] [place] 2021-12-10 2021-12-10 Orders Doctor PINKY 1.2.840.114 [id number] Univers 00:00:00 00:00:00 Only Unassigned, HUDSON 350.1.13.10 ity of [place] [facility] 4.2.7.2.686 Branden as [id number] [address] 2021-12-01 2021-12-01 Telephone Teto [facility] 1.2.840.114 [id number] Univers 00:00:00 00:00:00 Parminder ALMAZAN 350.1.13.10 ity of [facility] 4.2.7.2.[place] [phone] Az dicpaul ESTRADA 085 [facility] 2021-11-19 2021-11-19 Outpatient R PARMINDER IRENE [facility] [id number] Univers 14:40:00 14:40:00 PARMINDER IRENE ity of [facility] 2021-11-13 2021-11-13 Assistant Research Scientist 2, Adc Lab [facility] 1.2.840.114 [id number] Univers 11:30:00 11:30:00 Visit John Manzo 350.1.1 3.10 ity of [facility] 4.2.7.2.686 [place] [id number] Az dical NAL 353 [facility] 2021-11-13 2021-11-[address] [facility] [id number] Univers 11:30:00 10:14:46 EJOHN ity o f [facility] 2021-11-12 2021-11-12 Office [facility] 1.2.903.879 [id number] Univers 14:40:00 15:00:00 Visit [facility] [place] 350.1.13.10 ity of [place] 4.2.7.2.686 [place] [facility] [phone] Az dical NAL 085 [facility] 2021-11-12 2021-11-12 Out[facility] [id number] Univers 14:40:00 14:40:00 TETO [facility] 2021-11-06 2021-11-06 Case [facility] 1.2.840.114 [id number] Univers 00:00:00 00:00:00 Management Wondiful A HEALTH 350.1.13.10 ity of [place] 4.2.7.2.686 Branden as VIKTOR?BLEA [phone] [address] [facility] 2021-11-05 2021-11-[address] [facility] [id number] Univers 17:03:51 23:59:00 WONDIFUL ity o f [facility] 2021-11-05 2021-11-05 [facility] 1.2.438.957 [id number] Univers 17:03:51 23:59:00 Encounter Wondiful A [place] 350.1.13.10 ity of [place] 4.2.7.2.686 [place] [id number] [facility] [address] [place] 2021-11-05 2021-11-05 Case [facility] 1.2.840.114 [id number] Univers 00:00:00 00:00:00 Management Wondiful A HEALTH 350.1.13.10 ity of [place] 4.2.7.2.686 Branden as VIKTOR?BLEA [phone] Az dical KNEY [address] MEDICAL OFFICE BUILDING 2021-11-04 2021-11-04 Assistant Research Scientist Anthony Borja Sleep Lab [facility] 1.2 .840.114 [id number] Univers 10:00:00 10:15:00 Visit Parminder Irene NORAH 350.1.13. 10 ity of [place] 4.2.7.2.686 [place] [id number] [address] 2021-11-04 2021-11-04 Outpatient R PARMINDER IRENE [facility] [id number] Univers 10:00:00 10:00:00 [facility]INDER [facility] 2021-11-04 2021-11-04 Outpatient R ASHLEY IRENEMTLinda [facility] [id number] Univers 10:00:00 10:00:00 PARMINDER IRENE [facility] 2021-10-29 2021-10-29 Case Mar [facility] 1.2.840.114 [id number] Univers 00:00:00 00:00:00 Management Wondiful A HEALTH 350.1.13.10 ity of [place] 4.2.7.2.686 Branden as VIKTOR?BLEA [id number] [address] 2021-10-23 2021-10-23 Telephone Mar [facility] 1.2.840.114 [id number] Univers 00:00:00 00:00:00 Wondiful A HEALTH 350.1.13.10 ity [facility] 4.2.7.2.686 Branden as VIKTOR?BLEA [id number] [address] [facility] 2021-10-23 2021-10-23 Patient Doctor [facility] 1.2.840.114 [id number] Univers 00:00:00 00:00:00 Secure Msg Unassigned, HEALTH 350.1.13.10 ity of [place] 4.2.7.2.686 Branden as VIKTOR?BLEA [id number] [address] 2021-10-22 2021-10-22 Telephone Mar [facility] 1.2.840.114 [id number] Univers 00:00:00 00:00:00 Wondiful A HEALTH 350.1.13.10 ity of [place] 4.2.7.2.686 Branden as VIKTOR?BLEA [phone] Az clemente LIZ [address] [place] MEDICAL OFFICE BUILDING 2021-10-21 2021-10-21 Assistant Research Scientist Lab, Ang - Db [facility] 1.2.840.1 14 [id number] Univers 12:45:00 13:00:00 Visit Louis Manuel A HEALTH 350.1.13.1 0 ity of [place] 4.2.7.2.686 Branden as VIKTOR?BLEA [phone] Az clemente LIZ [address] [place] MEDICAL OFFICE BUILDING 2021-10-21 2021-10-21 [facility] [id number] Univers 11:30:00 12:41:54 WONDIFUL ity o f [facility] 2021-10-21 2021-10-21 Office [facility] 1.2.840.114 [id number] Univers 11:30:00 12:41:54 Visit Wondiful A HEALTH 350.1.13.10 ity of [place] 4.2.7.2.686 Branden as VIKTOR?BLEA [phone] [facility] [address] [place] [facility] 2021-10-21 2021-10-[address] [facility] [id number] Univers 11:30:00 12:41:54 WONDIFUL ity o f [facility] 2021-10-21 2021-10-21 Orders Doctor VANCE 1.2.840.114 [id number] Univers 00:00:00 00:00:00 Only Unassigned, HUDSON 350.1.13.10 ity of [place] [facility] 4.2.7.2.686 Branden as [id number] [address] 2021-10-08 2021-10-08 Out[facility] [id number] Univers 09:00:00 09:00:00 WONDIFUL ity o f [facility] 2021-09-23 2021-09-23 Emergency X EDUARDO, [facility] ERT [id number] Univers 15:27:00 18:23:00 KELLY ity of [facility] 2021-09-23 2021-09-23 Emergency Drever, [facility] 1.2.965.473 [id number] Univers 15:27:00 18:23:00 Kelly ALMAZAN 350.1.13.10 ity of [place]2.7.2.686 [place] [id number] [facility] [address] 2021-09-23 2021-09-23 Orders Doctor PINKY 1.2.840.114 [id number] Univers 00:00:00 00:00:00 Only Unassigned, HUDSON 350.1.13.10 ity of [place] [facility] 4.2.7.2.686 Branden as [id number] [facility] [address] 2021-08-19 2021-08-19 Outpatient Kurtis MANUEL, [facility] [id number] Univers 13:30:00 13:30:00 WONDIFUL ity o f [facility] 2021-06-11 2021-06-11 Laboratory Only, Ang Db Test [facility] 1.2.8 40.114 [id number] Univers 11:33:26 11:43:26 Only Nicol Gonzáles [facility] 350.1.13.10 ity of [place] 4.2.7.2.686 Branden as Viktor?Blea [id number] [address] Medical Office Building 2021-06-11 2021-06-11 [address] GONZ[facility]LES [facility] [id number] Univers 11:15:00 11:15:00 NICOL ity [facility] 2021-01-15 2021-01-[address] [facility] [id number] Univers 15:00:00 15:00:00 FRANCES ity [facility] 2020-12-18 2020-12-[address] [facility] [id number] Univers 15:00:00 15:00:00 ity of [facility] 2020-10-01 2020-10-01 Emergency Zachary Mcnamara [facility] 1.2.840.114 [id number] Univers 15:38:00 17:19:00 Pamela Almazan 350.1.13.10 i ty of [place] 4.2.7.2.686 [place] [facility] [phone] [facility] [address] [place] 2020-10-01 2020-10-01 Emergency Zachary Mcnamara [facility] 1.2.840.114 [id number] 15:38:00 17:19:00 Pamela [place] 350.1.13.10 [place] 4.2.7.2.686 [place] [id number] [facility] 2020-10-01 2020-10-01 Orders Doctor PINKY 1.2.840.114 [id number] Univers 00:00:00 00:00:00 Only Unassigned, HUDSON 350.1.13.10 ity of [place] [facility] 4.2.7.2.686 Branden as [id number] [facility] [address] [place] 2020-10-01 2020-10-01 Orders Doctor PINKY 1.2.840.114 [id number] 00:00:00 00:00:00 Only Unassigned, HUDSON 350.1.13.10 [place] [facility] 4.2.7.2.686 [id number] [facility] 2020-04-23 2020-07-03 Laboratory Only, Web Test [facility] 1.2.840. 114 [id number] Univers 09:22:46 08:51:45 Only Unknown, Attending Health 350.1.13.10 ity of [place].7.2.686 [place] [facility] - [phone] [address] 2020-04-23 2020-07-03 Laboratory Only, Web [facility] 1.2.840.114 [id number] 09:22:46 08:51:45 Only Test Health 350.1.13.10 Specialty 4.2.7.2.686 Care - [id number] [place] [address] 2020-04-23 2020-04-[address] [facility] [id number] Univers 09:30:00 09:30:00 ity of [facility] 2020-03-05 2020-03-05 Telephone Aris [facility] 1.2.840.114 [id number] Univers 00:00:00 00:00:00 [facility] 350.1.13.10 it y of [place] 4.2.7.2.686 Branden as Professio [id number] [address] Office Building [facility] 2020-03-05 2020-03-05 Telephone Julia Laws 1.2.840.114 [id number] Univers 00:00:00 00:00:00 [place] 350.1.13.10 it y of [facility] 4.2.7.2.686 Branden as [id number] [address] 2020-03-04 2020-03-04 Urgent Pob1, Acute Care Clinic [facility] 1. 2.840.114 [id number] Univers 15:43:04 16:06:56 Care [facility] 350.1.13.10 ity of [place] 4.2.7.2.686 Branden as Professio [phone] Az dical nal [address] [place] Office [address] [facility] 2020-03-04 2020-03-[address] [facility] [id number] Univers 15:40:00 15:40:00 ity of [facility] 2020-02-08 2020-02-08 Outpatient [facility] [id number] 2-2 [facility] 00:00:00 00:00:00 [id number] 2019-10-28 2019-10-29 Outpt Diag nullFlavo [facility] [id number] Memoria 22:20:00 05:59:00 Services r Outpatient 00 l [facility] Results Test Description Test Time Test Comments Results Result Comments Source CHEM PANEL 2022-07-17 08:15:00 Test Item Value Reference Range Interpretation Comme nts Calcium Lvl (test code = Calcium Lvl) 8.4 8.5-10.5 [facility]2022-10-07 08:15:00 Test Item Value Reference Range Interpretation Comments AGAP (test code = AGAP) 11.0 10.0-20.0 [id number] 08:15:00 Test Item Value Reference Range Interpretation Comments eGFR (test code = eGFR) 100 [facility] 08:15:00 Test Item Value Reference Range Interpretation Comments Segs (test code = Segs) 71.0 45.0-75.0 [id number] 08:15:00 Test Item Value Reference Range Interpretation Comments Lymphocytes (test code = Lymphocytes) 13.8 20.0-40.0 [place] [address]-10-07 08:15:00 Test Item Value Reference Range Interpretation Comments Monocytes (test code = Monocytes) 13.2 2.0-12.0 [place] [address]-10-07 08:15:00 Test Item Value Reference Range Interpretation Comments Eosinophils (test code = 1.3 See_Comment [A utomated message] The Eosinophils) system which ge nerated this result tra nsmitted reference range : <=4.0. The reference r ariadna was not used to int erpret this result as normal/abnormal . [place] [address]-10-07 08:15:00 Test Item Value Reference Range Interpretation Comments Basophils (test code = 0.7 See_Comment [Aut omated message] The Basophils) system which ge nerated this result tra nsmitted reference range : <=1.0. The reference r ariadna was not used to int erpret this result as normal/abnormal . [place] [address]-10-07 08:15:00 Test Item Value Reference Range Interpretation Comments Neutrophils # (test code = Neutrophils 6.6 1.5-8.1 #) [place] [address]-10-07 08:15:00 Test Item Value Reference Range Interpretation Comments Lymphocytes # (test code = Lymphocytes 1.3 1.0-5.5 #) [place] [address]-10-07 08:15:00 Test Item Value Reference Range Interpretation Comments Monocytes # (test code 1.2 See_Comment [Aut omated message] The = Monocytes #) system which generated this result tra nsmitted reference range : <=0.8. The reference r ariadna was not used to int erpret this result as normal/abnormal . [place] [address]-10-07 08:15:00 Test Item Value Reference Range Interpretation Comments Eosinophils # (test code 0.1 See_Comment [A utomated message] The = Eosinophils #) system whic h generated this result tra nsmitted reference range : <=0.5. The reference r ariadna was not used to int erpret this result as normal/abnormal . [place] [address]-10-07 08:15:00 Test Item Value Reference Range Interpretation Comments Basophils # (test code 0.1 See_Comment [Aut omated message] The = Basophils #) system which generated this result tra nsmitted reference range : <=0.2. The reference r ariadna was not used to int erpret this result as normal/abnormal . [place] 835282-10-07 08:15:00 Test Item Value Reference Range Interpretation Comments WBC (test code = WBC) 9.3 3.7-10.4 [id number] 08:15:00 Test Item Value Reference Range Interpretation Comments RBC (test code = RBC) 3.17 4.20-5.40 [place] 835282-10-07 08:15:00 Test Item Value Reference Range Interpretation Comments Hgb (test code = Hgb) 9.3 12.0-16.0 [place] 835282-10-07 08:15:00 Test Item Value Reference Range Interpretation Comments Hct (test code = Hct) 28.3 36.0-48.0 [place] 835282-10-07 08:15:00 Test Item Value Reference Range Interpretation Comments MCV (test code = MCV) 89.2 80.0-98.0 [facility]YdxgnquRMVRKKOQYP8889-43-60 08:15:00 Test Item Value Reference Range Interpretation Comments MCH (test code = MCH) 29.3 pg 27.0-31.0 [place] 835282-10-07 08:15:00 Test Item Value Reference Range Interpretation Comments MCHC (test code = MCHC) 32.9 32.0-36.0 [facility] HospitalTtjxtcaBFTTFBKGXY7078-62-96 08:15:00 Test Item Value Reference Range Interpretation Comments RDW (test code = RDW) 14.4 11.5-14.5 [facility] Hospit[id number] 08:15:00 Test Item Value Reference Range Interpretation Comments Platelet (test code = Platelet) 343 133-450 [facility] HospitalRzrkqsmIWMCFMSXGM9727-51-71 08:15:00 Test Item Value Reference Range Interpretation Comments MPV (test code = MPV) 6.4 7.4-10.4 [facility]2022-10-07 08:15:00 Test Item Value Reference Range Interpretation Comments Glucose Lvl (test code = Glucose Lvl) 107 70-99 [facility]2022-10-07 08:15:00 Test Item Value Reference Range Interpretation Comments BUN (test code = BUN) 5 7-22 [facility] [id number] 08:15:00 Test Item Value Reference Range Interpretation Comments Creatinine Lvl (test code = Creatinine 0.68 0.50-1.40 Lvl) [facility] [id number] 08:15:00 Test Item Value Reference Range Interpretation Comments Sodium Lvl (test code = Sodium Lvl) 137 135-145 [facility] [id number] 08:15:00 Test Item Value Reference Range Interpretation Comments Potassium Lvl (test code = Potassium 4.0 3.5-5.1 Lvl) [facility] [id number] 08:15:00 Test Item Value Reference Range Interpretation Comments Chloride Lvl (test code = Chloride Lvl) 103 95-109 [facility] [id number] 08:15:00 Test Item Value Reference Range Interpretation Comments CO2 (test code = CO2) 27 24-32 [facility] 15:24:00 Test Item Value Reference Range Interpretation Comments HS Troponin I 1 Hr (test code = HS 4 Troponin I 1 Hr) [facility] [id number] 15:24:00 Test Item Value Reference Range Interpretation Comments HS Troponin I 0 to 1 Hour Delta (test -1 code = HS Troponin I 0 to 1 Hour Delta) [facility] [id number] 14:22:00 Test Item Value Reference Range Interpretation Comments HS Troponin I Baseline (test code = HS 5 Troponin I Baseline) [facility] [id number] 07:28:00 Test Item Value Reference Range Interpretation Comments Glucose Lvl (test code = Glucose Lvl) 103 70-99 [facility] [id number] 07:28:00 Test Item Value Reference Range Interpretation Comments BUN (test code = BUN) 9 -22 [facility] [employer] [id number] 07:28:00 Test Item Value Reference Range Interpretation Comments Creatinine Lvl (test code = Creatinine 0.65 0.50-1.40 Lvl) [facility] [id number] 07:28:00 Test Item Value Reference Range Interpretation Comments Sodium Lvl (test code = Sodium Lvl) 133 135-145 [facility] [id number] 07:28:00 Test Item Value Reference Range Interpretation Comments Potassium Lvl (test code = Potassium 3.8 3.5-5.1 Lvl) [place] 166462-10-06 07:28:00 Test Item Value Reference Range Interpretation Comments Chloride Lvl (test code = Chloride Lvl) 102 95-109 [place] 166462-10-06 07:28:00 Test Item Value Reference Range Interpretation Comments CO2 (test code = CO2) 24 24-32 [place] 166462-10-06 07:28:00 Test Item Value Reference Range Interpretation Comments Calcium Lvl (test code = Calcium Lvl) 8.3 8.5-10.5 [place] 166462-10-06 07:28:00 Test Item Value Reference Range Interpretation Comments AGAP (test code = AGAP) 10.8 10.0-20.0 [place] 166462-10-06 07:28:00 Test Item Value Reference Range Interpretation Comments eGFR (test code = eGFR) 101 [place] 835282-10-06 07:28:00 Test Item Value Reference Range Interpretation Comments WBC (test code = WBC) 9.2 3.7-10.4 [place] [address]-10-06 07:28:00 Test Item Value Reference Range Interpretation Comments RBC (test code = RBC) 3.25 4.20-5.40 [place] 835282-10-06 07:28:00 Test Item Value Reference Range Interpretation Comments Hgb (test code = Hgb) 9.5 12.0-16.0 [place] 835282-10-06 07:28:00 Test Item Value Reference Range Interpretation Comments Hct (test code = Hct) 28.9 36.0-48.0 [place] [address]-10-06 07:28:00 Test Item Value Reference Range Interpretation Comments MCV (test code = MCV) 89.1 80.0-98.0 [place] [address]-10-06 07:28:00 Test Item Value Reference Range Interpretation Comments MCH (test code = MCH) 29.3 pg 27.0-31.0 [place] [address]-10-06 07:28:00 Test Item Value Reference Range Interpretation Comments MCHC (test code = MCHC) 32.8 32.0-36.0 [place] 835282-10-06 07:28:00 Test Item Value Reference Range Interpretation Comments RDW (test code = RDW) 14.4 11.5-14.5 [place] 835282-10-06 07:28:00 Test Item Value Reference Range Interpretation Comments Platelet (test code = Platelet) 319 133-450 [place] 835282-10-06 07:28:00 Test Item Value Reference Range Interpretation Comments MPV (test code = MPV) 6.8 7.4-10.4 [place] 835282-10-06 07:28:00 Test Item Value Reference Range Interpretation Comments Neutrophils # (test code = Neutrophils 6.3 1.5-8.1 #) [place] 835282-10-06 07:28:00 Test Item Value Reference Range Interpretation Comments Lymphocytes # (test code = Lymphocytes 1.0 1.0-5.5 #) [place] 835282-10-06 07:28:00 Test Item Value Reference Range Interpretation Comments Monocytes # (test code 1.9 See_Comment [Aut omated message] The = Monocytes #) system which generated this result tra nsmitted reference range : <=0.8. The reference r ariadna was not used to int erpret this result as normal/abnormal . [place] 835282-10-06 07:28:00 Test Item Value Reference Range Interpretation Comments Segs (test code = Segs) 67.0 45.0-75.0 [place] 835282-10-06 07:28:00 Test Item Value Reference Range Interpretation Comments Bands (test code = 1.0 See_Comment [Automat ed message] The Bands) system which ge nerated this result transmit rhea reference range : <=11.0. The reference r ariadna was not used to interpr et this result as jeannie l/abnormal. [place] 835282-10-06 07:28:00 Test Item Value Reference Range Interpretation Comments Lymphocytes (test code = Lymphocytes) 11.0 20.0-40.0 [place] [address]-10-06 07:28:00 Test Item Value Reference Range Interpretation Comments Monocytes (test code = Monocytes) 21.0 2.0-12.0 [place] [address]-10-06 07:28:00 Test Item Value Reference Range Interpretation Comments Atypical Lymphs (test code = Atypical 0.0 Lymphs) [place] 835282-10-06 07:28:00 Test Item Value Reference Range Interpretation Comments RBC Morph (test code = Normal (07/16/22 2:28 RBC Morph) AM) [place] 835282-10-06 07:28:00 Test Item Value Reference Range Interpretation Comments Plt Morph (test code = Clumped (07/16/22 2:28 Plt Morph) AM) [facility]2022-10-05 05:21:00 Test Item Value Reference Range Interpretation Comments Glucose Lvl (test code = Glucose Lvl) 118 70-99 [place] 166462-10-05 05:21:00 Test Item Value Reference Range Interpretation Comments BUN (test code = BUN) 15 7-22 [place] 166462-10-05 05:21:00 Test Item Value Reference Range Interpretation Comments Creatinine Lvl (test code = Creatinine 0.88 0.50-1.40 Lvl) [facility]2022-10-05 05:21:00 Test Item Value Reference Range Interpretation Comments Sodium Lvl (test code = Sodium Lvl) 130 135-145 [facility]2022-10-05 05:21:00 Test Item Value Reference Range Interpretation Comments Potassium Lvl (test code = Potassium 3.9 3.5-5.1 Lvl) [facility]2022-10-05 05:21:00 Test Item Value Reference Range Interpretation Comments Chloride Lvl (test code = Chloride Lvl) 100 95-109 [facility]2022-10-05 05:21:00 Test Item Value Reference Range Interpretation Comments CO2 (test code = CO2) 22 24-32 [place] 166462-10-05 05:21:00 Test Item Value Reference Range Interpretation Comments Calcium Lvl (test code = Calcium Lvl) 8.4 8.5-10.5 [facility]2022-10-05 05:21:00 Test Item Value Reference Range Interpretation Comments AGAP (test code = AGAP) 11.9 10.0-20.0 [facility]2022-10-05 05:21:00 Test Item Value Reference Range Interpretation Comments eGFR (test code = eGFR) 76 [facility] Ho[id number] 05:21:00 Test Item Value Reference Range Interpretation Comments WBC (test code = WBC) 10.8 3.7-10.4 [facility] [id number] 05:21:00 Test Item Value Reference Range Interpretation Comments RBC (test code = RBC) 3.50 4.20-5.40 [facility] HospitalTyhipdbKMBTLRGPZH0905-24-13 05:21:00 Test Item Value Reference Range Interpretation Comments Hgb (test code = Hgb) 10.4 12.0-16.0 [facility] HospitalNzyrbygJFTBAYVEWT9342-19-74 05:21:00 Test Item Value Reference Range Interpretation Comments Hct (test code = Hct) 30.7 36.0-48.0 [facility] HospitalGiswegvVFXTJJQMBB7150-82-72 05:21:00 Test Item Value Reference Range Interpretation Comments MCV (test code = MCV) 87.7 80.0-98.0 [facility] HospitalPxnwdrkEKSNKXWMSH6297-38-79 05:21:00 Test Item Value Reference Range Interpretation Comments MCH (test code = MCH) 29.7 pg 27.0-31.0 [facility] HospitalVljssemWJXWRHXTNJ5982-03-51 05:21:00 Test Item Value Reference Range Interpretation Comments MCHC (test code = MCHC) 33.9 32.0-36.0 [facility] HospitalZlsqglaTKOAGGYUCS6950-14-89 05:21:00 Test Item Value Reference Range Interpretation Comments RDW (test code = RDW) 14.6 11.5-14.5 [facility] HospitalXjafmfjGVHQCQNIRI9094-51-55 05:21:00 Test Item Value Reference Range Interpretation Comments Platelet (test code = Platelet) 360 133-450 [facility] HospitalAzkeyhbEQNCGIGGTK8642-71-44 05:21:00 Test Item Value Reference Range Interpretation Comments MPV (test code = MPV) 6.7 7.4-10.4 [facility] HospitalBqgcckyFOYZUDMNMU8814-16-13 05:21:00 Test Item Value Reference Range Interpretation Comments Segs (test code = Segs) 77.3 45.0-75.0 [facility] HospitalOzpkovaKKKHFPBGES4975-77-70 05:21:00 Test Item Value Reference Range Interpretation Comments Lymphocytes (test code = Lymphocytes) 10.0 20.0-40.0 [facility] HospitalOnaclzpNMVHWROULM6763-04-28 05:21:00 Test Item Value Reference Range Interpretation Comments Monocytes (test code = Monocytes) 12.5 2.0-12.0 [facility] HospitalIxnngaaHYOZCMIKKU1060-02-27 05:21:00 Test Item Value Reference Range Interpretation Comments Eosinophils (test code = 0.1 See_Comment [A utomated message] The Eosinophils) system which ge nerated this result tra nsmitted reference range : <=4.0. The reference r ariadna was not used to int erpret this result as normal/abnormal . [facility] HospitalHtdhlouRDQOAFNFRT4876-60-53 05:21:00 Test Item Value Reference Range Interpretation Comments Basophils (test code = 0.1 See_Comment [Aut omated message] The Basophils) system which ge nerated this result tra nsmitted reference range : <=1.0. The reference r ariadna was not used to int erpret this result as normal/abnormal . [facility] HospitalEkcuyipBQDOGRYOXC3259-86-52 05:21:00 Test Item Value Reference Range Interpretation Comments Neutrophils # (test code = Neutrophils 8.4 1.5-8.1 #) [facility] HospitalYjbvaoeQMUHUWVOWL8741-74-73 05:21:00 Test Item Value Reference Range Interpretation Comments Lymphocytes # (test code = Lymphocytes 1.1 1.0-5.5 #) [facility] HospitalAodaofaUPPUMSAJBB1362-68-34 05:21:00 Test Item Value Reference Range Interpretation Comments Monocytes # (test code 1.4 See_Comment [Aut omated message] The = Monocytes #) system which generated this result tra nsmitted reference range : <=0.8. The reference r ariadna was not used to int erpret this result as normal/abnormal . [facility]cBYDQWXQTJG4680-85-53 12:21:00 Test Item Value Reference Range Interpretation Comments Coronavirus (COVID-19) Not Detected (07/13/22 CATALINA (test code = 7:21 AM) Coronavirus (COVID-19) CATALINA) [facility]BACT[facility] - [id number] 13:49:00 Test Item Value Reference Range Interpretation Comments MRSA by PCR (test Negative (07/02/22 8:49 code = MRSA by PCR) AM) [facility] HospitalMfdfflgXZWBXVTIRC2054-31-66 13:49:00 Test Item Value Reference Range Interpretation Comments PT (test code = PT) 13.0 s 12.0-14.7 [facility]ZihsimrKHQESTGVIC6513-36-87 13:49:00 Test Item Value Reference Range Interpretation Comments INR (test code = INR) 0.99 1 0.85-1.17 [facility]OflycnfKJQETFQDFO6374-19-47 13:49:00 Test Item Value Reference Range Interpretation Comments PTT (test code = PTT) 35.7 s 22.9-35.8 [facility]lestwqHGTXFIWWEF0600-67-57 13:49:00 Test Item Value Reference Range Interpretation Comments Eosinophils (test code = 3.6 See_Comment [A utomated message] The Eosinophils) system which ge nerated this result tra nsmitted reference range : <=4.0. The reference r ariadna was not used to int erpret this result as normal/abnormal . [facility]awFufuzgoVPSFHAGRAE0590-15-22 13:49:00 Test Item Value Reference Range Interpretation Comments Basophils (test code = 0.6 See_Comment [Aut omated message] The Basophils) system which ge nerated this result tra nsmitted reference range : <=1.0. The reference r ariadna was not used to int erpret this result as normal/abnormal . [facility][id number] 13:49:00 Test Item Value Reference Range Interpretation Comments Eosinophils # (test code 0.2 See_Comment [A utomated message] The = Eosinophils #) system whic h generated this result tra nsmitted reference range : <=0.5. The reference r ariadna was not used to int erpret this result as normal/abnormal . [facility] YDSX[facility]HABJ0127-04-[facility] 13:49:00 Test Item Value Reference Range Interpretation Comments Hgb A1C (test code = Hgb A1C) 6.3 [facility] AND [id number] 13:49:00 Test Item Value Reference Range Interpretation Comments UA Color (test code = Yellow *NA*(07/02/22 UA Color) 8:49 AM) [facility] AND [id number] 13:49:00 Test Item Value Reference Range Interpretation Comments UA Turbidity (test code = Clear (07/02/22 8:49 UA Turbidity) AM) [facility] [id number] 13:49:00 Test Item Value Reference Range Interpretation Comments UA Spec Grav (test code = UA Spec 1.010 1 Grav) [facility] AND [id number] 13:49:00 Test Item Value Reference Range Interpretation Comments UA pH (test code = UA pH) 6.0 1 5.0-8.0 [facility] AND [id number] 13:49:00 Test Item Value Reference Range Interpretation Comments UA Protein (test code = UA Negative mg/dL Protein) [facility] AND [id number] 13:49:00 Test Item Value Reference Range Interpretation Comments UA Glucose (test code = UA Negative mg/dL Glucose) [facility] AND [id number] 13:49:00 Test Item Value Reference Range Interpretation Comments UA Ketones (test code = UA Negative mg/dL Ketones) [facility] AND [id number] 13:49:00 Test Item Value Reference Range Interpretation Comments UA Bili (test code = Negative *NA*(07/02/22 UA Bili) 8:49 AM) [facility] AND [id number] 13:49:00 Test Item Value Reference Range Interpretation Comments UA Blood (test code = Negative (07/02/22 8:49 UA Blood) AM) [facility] AND [id number] 13:49:00 Test Item Value Reference Range Interpretation Comments UA Urobilinogen (test code = UA 0.2 0.1-1.0 Urobilinogen) [facility] AND [id number] 13:49:00 Test Item Value Reference Range Interpretation Comments UA Nitrite (test code Negative (07/02/22 8:49 = UA Nitrite) AM) [facility] AND [id number] 13:49:00 Test Item Value Reference Range Interpretation Comments UA Leuk Est (test Negative (07/02/22 8:49 code = UA Leuk Est) AM) [facility] AND [id number] 13:49:00 Test Item Value Reference Range Interpretation Comments UA Sq Epi (test code = UA Sq Occasional /LPF Epi) [facility] AND [id number] 13:49:00 Test Item Value Reference Range Interpretation Comments UA WBC (test code = 4 See_Comment [Automa rhea message] The UA WBC) system which ge nerated this result transmit rhea reference range : <=5. The reference range was not used to interpr et this result as jeannie l/abnormal. [facility] [id number] 13:49:00 Test Item Value Reference Range Interpretation Comments UA RBC (test code = no gt See_Comment [Automa rhea message] The UA RBC) system which ge nerated this result transmit rhea reference range : <=2. The reference range was not used to interpr et this result as jeannie l/abnormal. [facility] HospitalannCulture: [id number] 13:49:00 Test Item Value Reference Range Interpretation Comments Culture: Urine (test <10,000 CFU/mL Skin code = Culture: Urine) [facility], SPINE, LUMBAR, WITHOUT [id number] 22:22:00Unlisted Reason for Exam - Click Yes and Enter Reason Below->No [facility] : 1965 Sex: FFINAL REPORT EXAM: MR, SPINE, LUMBAR, WITHOUT CONTRAST INDICATION: Back pain or radiculopathy, prior surgery, new symptoms TECHNIQUE: Sagittal T1-, T2-, and T2-w fat-saturated, and axial T1- and T2-w images of the lumbar spine. COMPARISON: None. FINDINGS:Spine Numbering: For purposes of this dictation, it is assumed that there are 5 vlu-xwn-oxwtzjw, lumbar-type vertebrae, and the most caudal fully [...] [place] MDR[place]ort Verified Date/Time: 02/20/2022 22:22:11 [place], [id number] 14:13:00Reason for Exam:->HX OF PARTIAL HYPROIDECTOYFINAL REPORT [...] MDReport Verified Date/Time: 02/08/2020 14:13:43 Reading Location: [facility] Diagnostic Imaging Reading Room - [place] [address] BLOOD [id number] 00:00:00 Test Item Value Reference Range Interpretation Comments CULTURE (BEAKER) (test No growth in 5 days code = 1095) BLOOD [id number] 00:00:00 Test Item Value Reference Range Interpretation Comments CULTURE (BEAKER) (test No growth in 5 days code = 1095) BASIC METABOLIC [id number] 11:06:00 Test Item Value Reference Range Interpretation [...] TO CALCULA TE ESTIMATED GFR. BASIC METABOLIC [id number] 07:36:00 Test Item Value Reference Range Interpretation [...] TO CALCULA TE ESTIMATED GFR. BASIC METABOLIC [id number] 19:50:00 Test Item Value Reference Range Interpretation [...] TO CALCULA TE ESTIMATED GFR. BASIC METABOLIC [id number] 08:59:00 Test Item Value Reference Range Interpretation [...] TO CALCULA TE ESTIMATED GFR. BASIC METABOLIC [id number] 01:18:00 Test Item Value Reference Range Interpretation [...] TO CALCULA TE ESTIMATED GFR. BASIC METABOLIC [id number] 16:32:00 Test Item Value Reference Range Interpretation [...] TO CALCULA TE ESTIMATED GFR. U/S, ABDOMINAL, [id number] 14:54:00Abdomen limited area? Add comment if clarification [...] Peters Verified Date/Time: 04/05/2018 14:54:01 Reading Location: [address] Ultrasound Reading Room HEPATIC FUNCTION [id number] 14:03:00 Test Item Value Reference Range Interpretation [...] = 21 U/L 6-55 347) BASIC METABOLIC [id number] 09:16:00 Test Item Value Reference Range Interpretation [...] ESTIMATED GFR. CBC W/PLT COUNT & AUTO [id number] 08:44:00 Test Item Value Reference Range Interpretation [...] (BEAKER) (test code = 2801) BASIC METABOLIC [id number] 01:06:00 Test Item Value Reference Range Interpretation [...] m DATA TO CALCULA TE ESTIMATED GFR. [id number] 18:02:00 Test Item Value Reference Range Interpretation Comments AMMONIA (BEAKER) (test code = 348) 35 mol/L 18-72 BASIC METABOLIC [id number] 17:31:00 Test Item Value Reference Range Interpretation [...] TO CALCULA TE ESTIMATED GFR. BASIC METABOLIC [id number] 09:29:00 Test Item Value Reference Range Interpretation [...] TO CALCULA TE ESTIMATED GFR. BLOOD GAS, [id number] 05:19:00 Test Item Value Reference Range Interpretation [...] C (test code = 1818) BASIC METABOLIC [id number] 03:52:00 Test Item Value Reference Range Interpretation [...] m DATA TO CALCULA TE ESTIMATED GFR. [id number] 03:48:00 Test Item Value Reference Range Interpretation Comments PHOSPHORUS (BEAKER) (test code = 3.6 mg/dL 2.3-4.7 604) [id number] 03:48:00 Test Item Value Reference Range Interpretation Comments MAGNESIUM (BEAKER) (test code = 2.1 mg/dL 1.6-2.6 627) LACTIC ACID, VENOUS, WHOLE [id number] 03:44:00 Test Item Value Reference Range Interpretation [...] WBC 0-0 (BEAKER) (test code = 413) [id number] 02:06:00 Test Item Value Reference Range Interpretation Comments CORTISOL, TOTAL (BEAKER) (test 17.8 ug/dL 3.7-19.4 code = 2755) TSH/FREE T4 IF [id number] 02:06:00 Test Item Value Reference Range Interpretation Comments THYROID STIMULATING HORMONE 1.09 uIU/mL 0.35-4.94 (BEAKER) (test code = 772) HIV-1 ANTIGEN WITH HIV-1/2 [id number] 00:06:00 Test Item Value Reference Range Interpretation Comments HIV-1 ANTIGEN WITH HIV 1\\T\\2 Nonreactive Nonreactive ANTIBODY (2) (BEAKER) (test code = 2586) BASIC METABOLIC [id number] 23:30:00 Test Item Value Reference Range Interpretation [...] ESTIMATED GFR. RAD, CHEST, 1 VIEW, NON [id number] 21:34:00Reason for exam:->ALTERED MENTAL STATUSReason for exam:->NEUROLOGIC [...] MDReport Verified Date/Time: 04/03/2018 21:34:48 Reading Location: [address] Reading Room OSMOLALITY, [id number] 21:10:00 Test Item Value Reference Range Interpretation Comments OSMOLALITY, SERUM (BEAKER) (test 236 mOsm/kg 275-295 L code = 615) RAPID DRUG SCREEN, [id number] 20:47:00 Test Item Value Reference Range Interpretation [...] situations. Chain of custody not maintained. Some fvxj-flm-rwtsspq medications, as well as adulterants, may cause inaccurate results. Clinical correlation should be applied. [place] comprehensive drug screen or confirmation of a detected drug may be performed upon request.PHOSPHORUS 2018-04-03 20:43:00 Test Item Value Reference Range Interpretation Comments PHOSPHORUS (BEAKER) (test code = 1.8 mg/dL 2.3-4.7 L 604) HEPATIC FUNCTION [id number] 20:43:00 Test Item Value Reference Range Interpretation [...] (test code = 22 U/L 6-55 347) [id number] 20:43:00 Test Item Value Reference Range Interpretation Comments LIPASE (BEAKER) (test code = 749) 21 U/L 8-78 CREATININE, RANDOM [id number] 20:40:00 Test Item Value Reference Range Interpretation Comments CREATININE URINE (BEAKER) (test 11.7 mg/dL code = 375) Reference Range: No NormalsSODIUM, RANDOM [id number] 20:40:00 Test Item Value Reference Range Interpretation Comments SODIUM URINE (BEAKER) (test code = 60 meq/L 243) Reference Range: No NormalsOSMOLALITY, [id number] 20:40:00 Test Item Value Reference Range Interpretation Comments OSMOLALITY URINE (BEAKER) (test 169 mOsm/kg 40-1400 code = 614) [id number] 20:37:00 Test Item Value Reference Range Interpretation Comments ETHANOL (BEAKER) (test code = 400) < mg/dL <=10 [id number] 20:35:00 Test Item Value Reference Range Interpretation Comments AMMONIA (BEAKER) (test code = 348) 33 mol/L 18-72 MR, MRA, BRAIN, WITHOUT [id number] 19:42:00FINAL REPORT MRA head and neck without contrast. CLINICAL HISTORY: Stroke. ARVIN RISON: None. TECHNIQUE: Two- and three-dimensional odqw-kn-vhuyuz MRA images of the intra- and extracranial [...] right common carotid artery (image 1). MRA [place]: There is no vessel occlusion, [...] roximately 7:40 PM on 04/03/2018. Signed: Leela Pina Verified Date/Time: 04/03/2018 19:42:20 Reading Location: [address] Transitional Reading Room MR, MRA, NECK, WITHOUT IV [id number] 19:42:00FINAL REPORT MRA head and neck without contrast. CLINICAL HISTORY: Stroke. COMPARISON: None. TECHNIQUE: Two- and three-dimensional zbkq-vi-bftqof MRA images of the intra- and extracranial [...] right common carotid artery (image 1). MRA [place]: There is no vessel occlusion, [...] approximately 7:40 PM on 04/03/2018. Signed: Leela Pina Verified Date/Time: 04/03/2018 19:42:20 Reading Location: [address] Transitional Reading Room CREATINE KINASE (CK), TOTAL AND [id number] 19:36:00 Test Item Value Reference Range Interpretation Comments CREATINE KINASE TOTAL (BEAKER) 103 U/L 29-200 (test code = 380) CREATINE KINASE-MB (BEAKER) (test 2.5 ng/mL 0.0-6.6 code = 750) CREATINE KINASE-MB INDEX (BEAKER) 2.4 % (test code = 395) CK-MB Reference Range:<6.7 Normal6.7-10.0 Borderline>10.0 AbnormalTROPONIN [id number] 19:36:00 Test Item Value Reference Range Interpretation [...] neurological disease, and persistent tachyarrhythmia.MR, BRAIN, WITHOUT [id number] 19:34:00FINAL REPORT Exam: MRI brain without contrast. [...] MDReport Verified Date/Time: 04/03/2018 19:34:38 Reading Location: [facility]1 C013T Transitional Reading Room B-TYPE NATRIURETIC FACTOR (BNP)2018-04-03 19:33:00 Test Item Value Reference Range Interpretation Comments B-TYPE NATRIURETIC PEPTIDE (BEAKER) 90 pg/mL 0-100 (test code = 700) URINALYSIS W/ [id number] 18:43:00 Test Item Value Reference Range Interpretation [...] 520) SOURCE(BEAKER) (test code = Urine, Gooden 8075) BASIC METABOLIC [id number] 18:32:00 Test Item Value Reference Range Interpretation [...] m DATA TO CALCULA TE ESTIMATED GFR. [id number] 18:28:00 Test Item Value Reference Range Interpretation Comments MAGNESIUM (BEAKER) (test code = 1.7 mg/dL 1.6-2.6 627) [id number] 18:02:00 Test Item Value Reference Range Interpretation [...] mechanical heart valves.CBC W/PLT COUNT & AUTO [id number] 17:54:00 Test Item Value Reference Range Interpretation [...] PERCENT (BEAKER) (test code = 2801) POCT-GLUCOSE [id number] 17:49:00 Test Item Value Reference Range Interpretation Comments POC-GLUCOSE METER 100 mg/dL 70-110 TESTED AT [facility] [address] ([facility] (test code = [place] 1538) [address] CT, BRAIN/STROKE [id number] 17:45:00Reason for exam:->stroke protocolIs the patient ?->NoWhat [...] Roque at 1740 hours. Signed: Kenton Miranda [facility] Verified Date/Time: 04/03/2018 17:45:48 Reading Location: [address] Reading Room
[2022-09-26] MEDS ORDERED: HYDROCODONE/APAP 5/325 MG TAB ONE (16:43)
--- NOTE | 2022-09-26 16:47 | RAD REPORT ---
EXAM DESCRIPTION: RAD - Femur Right - 09/26/2022 4:33 pm CLINICAL HISTORY: Leg pain FINDINGS: Right hip prosthesis is in good position. No fracture or dislocation noted.
--- NOTE | 2022-09-26 18:19 | RAD REPORT ---
EXAM DESCRIPTION: USExtremity Venous Uni Ltd09/26/2022 5:53 pm CLINICAL HISTORY: Right leg pain COMPARISON: July 2022 FINDINGS: Right common femoral, superficial femoral, popliteal and right posterior tibial veins are compressible and demonstrate augmentation. Doppler demonstrates good flow. Grayscale, color and spectral analysis performed on all vessels IMPRESSION: No evidence of deep venous thrombosis involving the right lower extremity.
--- NOTE | 2022-09-26 18:41 | EDPHYS ---
Physician Documentation [facility] Name: Lizbet Solares Age: 57 yrs Sex: Female : 1965 Arrival Date: 09/26/2022 Time: 15:07 Bed 8 Private MD: ED Physician Dudley Cruz HPI: 09/26 15:35 This 57 yrs old Female presents to ER via Wheelchair with complaints of Hip Pain. jmm 15:35 The patient or guardian reports pain. Onset: The symptoms/episode began/occurred jmm acutely, today. Modifying factors: The symptoms are alleviated by nothing, the symptoms are aggravated by weight bearing. Is a 57-year-old female with history of anxiety, chronic pain, depression, hypertension, hypothyroidism status post right hip replacement the presents emerged part with complaints of right mid thigh pain. Patient states this occurred while walking. Denies any other type of injury but states now she cannot bear weight.. Historical: - Allergies: 15:20 No Known Allergies; ph - PMHx: 15:20 Anxiety; chronic back pain; Depression; Hypertension; Hypothyroidism; ph - PSHx: 15:20 bilateral heels; decompression of vertebrae; partial thyroidectomy; ph - Immunization history:: Adult Immunizations unknown. - Social history:: Smoking status: Patient denies any tobacco usage or history of. ROS: 15:35 Constitutional: Negative for fever, chills, and weight loss, Cardiovascular: Negative jmm for chest pain, palpitations, and edema, Respiratory: Negative for shortness of breath, cough, wheezing, and pleuritic chest pain. 15:35 MS/extremity: Positive for injury or acute deformity, pain. 15:35 All other systems are negative. Exam: 15:35 Constitutional: This is a well developed, well nourished patient who is awake, alert, jmm and in no acute distress. Head/Face: atraumatic. Eyes: EOMI, no conjunctival erythema appreciated ENT: Moist Mucus Membranes Neck: Trachea midline, Supple Chest/axilla: Normal chest wall appearance and motion. Cardiovascular: Regular rate and rhythm. No edema appreciated Respiratory: Normal respirations, no respiratory distress appreciated Abdomen/GI: Non distended Back: Normal ROM Skin: General appearance color normal 15:35 Musculoskeletal/extremity: ROM: intact in all extremities. 15:35 Musculoskeletal/extremity: Right anterior thigh pain on palpation, compartments are soft, full range of motion appreciated right hip, right knee, full dorsalis pedis pulse, neurovascular tact. 15:35 Skin: Appearance: Color: normal in color. 15:35 Neuro: Orientation: is normal, Mentation: is normal, Memory: is normal. 15:35 Psych: Behavior/mood is pleasant, cooperative. Vital Signs: 15:17 BP 129 / 65; Pulse 76; Resp 18; Temp 97.7; Pulse Ox 100% on R/A; Weight 92.99 kg; ph Height 5 ft. 5 in. (165.10 cm); 16:00 BP 108 / 60; Pulse 73; Resp 18; Pulse Ox 100% on R/A; db 18:34 BP 128 / 64; Pulse 69; Resp 18; Pulse Ox 100% on R/A; db 18:34 Pain 5/10; db 19:06 BP 122 / 81; Pulse 68; Resp 18; Pulse Ox 100% ; db 15:17 Body Mass Index 34.11 (92.99 kg, 165.10 cm) ph MDM: 15:35 Patient medically screened. [facility] 18:40 Data reviewed: vital signs, nurses notes. Counseling: I had a detailed discussion with isela the patient and/or guardian regarding: the historical points, exam findings, and any diagnostic results supporting the discharge/admit diagnosis, radiology results, the need for outpatient follow up, to return to the emergency department if symptoms worsen or persist or if there are any questions or concerns that arise at home. ED course: Ultrasounds negative. X-ray does not reveal any abnormality in hardware. Patient vies follow-up with her orthopedic surgeon and otherwise given strict return precautions. Patient understood and agrees plan of care.. 09/26 15:35 Order name: Femur Right XRAY; Complete Time: 16:59 [facility] 09/26 15:36 Order name: US Extremity Venous Unilateral Ltd; Complete Time: 18:29 [facility] Administered Medications: 16:42 Drug: HYDROcodone-acetaminophen 5 mg-325 mg 1 tabs Route: PO; db 18:45 Follow up: Response: Pain is decreased db 18:44 Drug: morphine 4 mg Route: IM; Site: right deltoid; db 19:07 Follow up: Response: No adverse reaction; Pain is decreased db Disposition: 19:12 Co-signature as Attending Physician, Dudley Cruz MD. rn Disposition Summary: 09/26/22 18:41 Discharge Ordered Location: Home [facility] Condition: Stable jm Diagnosis - Right thigh pain [facility] Followup: jmm - With: Private Physician - When: 2 - 3 days - Reason: Recheck today's complaints, Continuance of care, Re-evaluation by your physician Discharge Instructions: - Discharge Summary Sheet jm - Hip Pain [facility] Forms: - Medication Reconciliation Form [facility] - Thank You Letter [facility] - Antibiotic Education [facility] - Prescription Opioid Use [facility] Prescriptions: - Zanaflex 4 mg Oral Tablet - take 1 tablet by ORAL route every 8 hours As needed; 20 tablet; Refills: 0, jmm Product Selection Permitted Signatures: Dispatcher [employer] EDKendall Braden PA PA [facility] Dudley Cruz MD MD rn Gilda Mccord RN RN ph Nely Avila RN RN db Corrections: (The following items were deleted from the chart) 15:21 15:20 Allergies: Dilaudid; ph ph
--- NOTE | 2022-09-26 18:41 | ER ---
Nurse's Notes [facility] Name: Lizbet Solares Age: 57 yrs Sex: Female : 1965 Arrival Date: 09/26/2022 Time: 15:07 Bed 8 Private MD: Diagnosis: Right thigh pain Presentation: 09/26 15:17 Chief complaint: Patient states: Had R hip and femur sx approx 2 weeks ago, was walking ph to mailbox w/ walker and had sudden, sharp pain to R femur area radiating up to thigh, denies falling. Coronavirus screen: Vaccine status: Patient reports receiving the 2nd dose of the covid vaccine. Ebola Screen: No symptoms or risks identified at this time. Initial Sepsis Screen: Does the patient meet any 2 criteria? No. Patient's initial sepsis screen is negative. Does the patient have a suspected source of infection? No. Patient's initial sepsis screen is negative. Risk Assessment: Do you want to hurt yourself or someone else? Patient reports no desire to harm self or others. Onset of symptoms was September 26, 2022. 15:17 Method Of Arrival: Wheelchair ph 15:17 Acuity: NAFISA 3 ph Historical: - Allergies: 15:20 No Known Allergies; ph - PMHx: 15:20 Anxiety; chronic back pain; Depression; Hypertension; Hypothyroidism; ph - PSHx: 15:20 bilateral heels; decompression of vertebrae; partial thyroidectomy; ph - Immunization history:: Adult Immunizations unknown. - Social history:: Smoking status: Patient denies any tobacco usage or history of. Screenin:07 [facility] ED Fall Risk Assessment (Adult) History of falling in the last 3 months, db including since admission No falls in past 3 months (0 pts) Confusion or Disorientation No (0 pts) Intoxicated or Sedated No (0 pts) Impaired Gait No (0 pts) Mobility Assist Device Used No (0 pt) Altered Elimination No (0 pt) Score/Fall Risk Level 0 - 2 = Low Risk. Abuse screen: Denies threats or abuse. Denies injuries from another. Nutritional screening: No deficits noted. Tuberculosis screening: No symptoms or risk factors identified. Fall Risk No fall in past 12 months (0 pts). No secondary diagnosis (0 pts). No IV (0 pts). Ambulatory Aid- None/Bed Rest/Nurse Assist (0 pts). Gait- Normal/Bed Rest/Wheelchair (0 pts) Mental Status- Oriented to own ability (0 pts). Total Calles Fall Scale indicates No Risk (0-24 pts). Assessment: 16:07 Reassessment: Patient appears in no apparent distress at this time. Patient and/or db family updated on plan of care and expected duration. Pain level reassessed. Patient is alert, oriented x 3, equal unlabored respirations, skin warm/dry/pink. patient states felt like stepped wrong and now has pain in right hip. recent right hip surgery. General: Appears in no apparent distress. comfortable, Behavior is cooperative, anxious. Pain: Complains of pain in right leg, right hip. Neuro: No deficits noted. Level of Consciousness is awake, alert, obeys commands, Moves all extremities. Speech is normal. Cardiovascular: No deficits noted. Respiratory: No deficits noted. GI: No deficits noted. No signs and/or symptoms were reported involving the gastrointestinal system. : No deficits noted. No signs and/or symptoms were reported regarding the genitourinary system. EENT: No deficits noted. No signs and/or symptoms were reported regarding the EENT system. Derm: No deficits noted. No signs and/or symptoms reported regarding the dermatologic system. 17:00 Reassessment: Patient appears in no apparent distress at this time. No changes from db previously documented assessment. Patient and/or family updated on plan of care and expected duration. Pain level reassessed. Patient is alert, oriented x 3, equal unlabored respirations, skin warm/dry/pink. 18:45 Reassessment: Patient appears in no apparent distress at this time. Patient and/or db family updated on plan of care and expected duration. Pain level reassessed. Patient is alert, oriented x 3, equal unlabored respirations, skin warm/dry/pink. states pain is still present. Vital Signs: 15:17 BP 129 / 65; Pulse 76; Resp 18; Temp 97.7; Pulse Ox 100% on R/A; Weight 92.99 kg; ph Height 5 ft. 5 in. (165.10 cm); 16:00 BP 108 / 60; Pulse 73; Resp 18; Pulse Ox 100% on R/A; db 18:34 BP 128 / 64; Pulse 69; Resp 18; Pulse Ox 100% on R/A; db 18:34 Pain 5/10; db 19:06 BP 122 / 81; Pulse 68; Resp 18; Pulse Ox 100% ; db 15:17 Body Mass Index 34.11 (92.99 kg, 165.10 cm) ph ED Course: 15:07 Patient arrived in ED. mr 15:09 Kendall Elkins PA is PHCP. [facility] 15:09 Dudley Cruz MD is Attending Physician. [facility] 15:20 Triage completed. ph 15:21 Arm band placed on Patient placed in an exam room. ph 15:59 Nely Avila, RN is Primary Nurse. db 16:07 Patient has correct armband on for positive identification. Side rails up X 1. Pulse ox db on. NIBP on. Warm blanket given. 16:35 Femur Right XRAY In Process Unspecified. EDMS 17:55 US Extremity Venous Unilateral Ltd In Process Unspecified. EDMS 18:46 No provider procedures requiring assistance completed. Patient did not have IV access db during this emergency room visit. 19:07 Report given to production supervisor off shift RN. db Administered Medications: 16:42 Drug: HYDROcodone-acetaminophen 5 mg-325 mg 1 tabs Route: PO; db 18:45 Follow up: Response: Pain is decreased db 18:44 Drug: morphine 4 mg Route: IM; Site: right deltoid; db 19:07 Follow up: Response: No adverse reaction; Pain is decreased db Medication: 16:07 VIS not applicable for this client. db Outcome: 18:41 Discharge ordered by . [facility] 19:05 Discharged to home via wheelchair, with family. db 19:05 Condition: stable 19:05 Discharge instructions given to patient, Instructed on discharge instructions, follow up and referral plans. Prescriptions given X 1. 19:08 Patient left the ED. db Signatures: Dispatcher [employer] EDMS Kendall Elkins PA PA jmm Rivercarmen Kathrine Gilda Mccord RN RN ph Nely Avila, EVER RN db Corrections: (The following items were deleted from the chart) 15:21 15:20 Allergies: Dilaudid; ph ph
[2022-09-26] MEDS ORDERED: MORPHINE 4 MG/ML SYR ONE (18:42)
[2022-09-26 19:14] VITALS: TEMP 97.7; O2SAT 100
[2022-09-26 19:17] VITALS: BP 122/81
== END 2022-09-26 19:08 | disposition home or self-care (01) ==
LOC: ER 15:04
DX: M79.651 Pain in right thigh (principal); Z96.641 Presence of right artificial hip joint
CPT/HCPCS: 93971; 96372; 99284

== ENCOUNTER 2022-09-28 01:53 | Emergency (ER) | payer MEDICARE ==
--- OUTSIDE RECORDS SUMMARY | 2022-09-28 02:07 | XMS REPORT | Continuity of Care Document ---
:1965 Author Organization [facility] t Address [address] [place] [address] Care Team Providers Name Role Phone Marcial Alonzo Primary Care Physician RHETT XIONG Attending Clinician Unavailable MARCIAL DOBBS Attending Clinician Unavailable BARRY PAYNE Attending Clinician Unavailable Louis Manuel MD Attending Clinician ASHLEIGH GLASS Attending Clinician Unavailable Marcial Alonzo Attending Clinician BARRY PAYNE Attending Clinician Unavailable RADHA GALINDO Attending Clinician Unavailable Lab, Ang - Db Attending Clinician Unavailable CAYDEN MUIR Attending Clinician Unavailable FOG_A_Provider Attending Clinician Unavailable Davy Berry MD Attending Clinician Rhett Xiong MD Attending Clinician YAMINI BELTRAN Attending Clinician Unavailable Ebvicm SINGLE CORNER CUTTER, Yamini Attending Clinician Susan SINGLE CORNER CUTTER, Anroldo Attending Clinician ARNOLDO BRICE Attending Clinician Unavailable Nicol Gonzáles MD Attending Clinician Eva PT, Paulina Hernández Attending Clinician Unavailable Radha Galindo MD Attending Clinician Pedro ANALOG DESIGN ENGINEER, Nick Dunbar Attending Clinician Unavailable SHERICE ANTONIO Attending Clinician Unavailable Larisa ESCALERA, Kari Reyes Attending Clinician Unavailable Jesus DONATO, Sterling Attending Clinician STERLING BATRES Attending Clinician Unavailable Brian Morton MD Attending Clinician BRIAN MORTON Attending Clinician Unavailable [facility], [facility] Attending Clinician Unavailjoan Main RN, Ludwin Attending Clinician Unavailable Benjamin Núñez RN Attending Clinician Unavailable RANULFO WOLFE Attending Clinician Unavailable IDANIA BIRMINGHAM Attending Clinician Unavailable Idania Pulliam Attending Clinician FAUSTINO HOLT Attending Clinician Unavailable Faustino Anthony Attending Clinician Doctor Unassigned, Pajarito Mesa Attending Clinician Unavailable Parminder Agrawal MD Attending Clinician PARMINDER AGRAWAL Attending Clinician Unavailable PARMINDER AGRAWAL Attending Clinician Unavailable 2, [facility] Attending Clinician Unavailable John Manzo MD Attending Clinician JOHN MANZO Attending Clinician Unavailable LOUIS MANUEL Attending Clinician Unavailable [facility], [facility] Attending Clinician Unavailable KELLY CLARK Attending Clinician Unavailable Smooth MANAGEMENT CONSULTANTKelly Attending Clinician Only, Ang Db Test Attending [...] Date Expiration Date S leticia BLUE ADVANTAGE [id number] 2021 HMO/PLUS 00:00:00 HIM BCBS BLUE [id number] 2019 ADVANTAGE HMO 00:00:00 BLUE ADVANTAGE [id number] HMO-MARKETPLACE - BCBS MARKETPLACE PLAN [id number] 2007 2022 HMO 00:00:00 00:00:00 AIXA [id number] 2016 00:00:00 RJB-AKZ-FRAZIE/KELLY [id number] 2006 CE PLUS 00:00:00 [facility] [id number] 2018 CHOICE HMO 00:00:00 MARKETPLACE-MIKAYLA PCP Problems Condition Condition Condition Status Onset [...] Internal Disease Active 2021-10 [facility] derangemen derangemen 1-11 He alth t of left t of [...] 09:47:00 l 06/24/2022 00:00: Delmar mason 00 [facility] [place] UNK UNK Diagnosis Active 2022-07-02 Mem oria Active 06-24 07:16:00 l 06/24/2022 00:00: Delmar mason 00 [facility] [place] 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 Primary Primary Disease Active UT osteoarthr osteoarthr 06-24 He alth itis of itis of 00:00: left hip left hip 00 Limp Limp Disease Active UT 06-24 Health 00:00: 00 Class 2 Class 2 [...] Added automatic ally from request for surgery [id number] Need for Need for Disease Active Unive rs vaccinatio vaccinatio 8-15 it y of n n 00:00: [place] 00 [facility] Branch Cervical Cervical Disease Active Unive rs cancer cancer 8-15 it[place] of screening [place] Breast Breast Disease Active [facility] cancer cancer 8-15 ity of screening screening 00:00: Antonella ashby by by 00 Medical mammogram mammogram Bran ch Essential Essential Disease Active Uni vers hypertensi hypertensi 8-15 it y of on on 00:00: [place] 00 Medical Branch Bulging Bulging Disease Active Univers lumbar lumbar 8-08 ity of disc disc 00:00: [place] 00 Medical Branch Encounter Encounter Disease Active Uni vers to discuss to discuss 8-08 it y of test test 00:00: [place] results results 00 Medical Branch Left hip Left hip Disease Active Unive rs pain pain 6-06 ity of 00:00: [place] 00 Medical Branch S/P S/P Disease Active Univers laminectom laminectom 6-06 it y of y y 00:00: [place] 00 Medical Branch Abnormal Abnormal Disease Active Unive rs gait gait 6-06 ity of 00:00: [place] 00 Medical Branch Left leg Left leg Disease Active Unive rs pain pain 5-13 ity of 00:00: [place] 00 Medical Branch Sciatica Sciatica Disease [...] y of e sleep e sleep 00:00: [place] apnea apnea 00 Medical Branch Prediabete Prediabete Disease Active U nivers s s 1-19 ity of 00:00: [place] [facility] Mixed Mixed Disease Active Univers hyperlipid hyperlipid -19 it y of emia emia 00:00: [place] [facility] Abnormal Abnormal Disease Active Unive rs LFTs LFTs 1-19 ity of 00:00: [place] [facility] GERD GERD Disease Active Univers (gastroeso (gastroeso 1-17 it y of phageal phageal 00:00: [place] reflux reflux Medical disease) disease) Branch Mitral Mitral Disease Active Univers valve valve 1-17 ity of prolapse prolapse 00:00: [place] [facility] Anxiety Anxiety Disease Active Univers 1-17 ity of 00:00: [place] [facility] Pernicious Pernicious Disease Active U kam anemia anemia 1-17 ity of 00:00: [place] [facility] Morbid Morbid Disease Active Univers obesity obesity 1-17 ity of with body with body 00:00[place] mass index mass index 00 Me [...] l 10/11/2017 08:00: Delmar SANTOS SMR 00 [facility] Adult Adult Problem Active 2022-07-20 Memor ia attention attention 06:43:36 l deficit deficit [address] hyperactiv hyperactiv ity ity disorder disorder (disorder) (disorder) Active Problem 07/20/2022 [facility] Human Human Problem Active 2022-07-20 Memor ia T-lymphotr T-lymphotr 06:43:36 l opic virus opic virus He rmann 2 2 infection infection (disorder) (disorder) Active Problem 07/20/2022 [facility] Hyperlipid Hyperlipi Problem Active 2022-07-20 Memoria emia demia 06:43:36 l (disorder) (disorder) He rmann Active Problem 07/20/2022 [facility] Hypertensi Hypertens Problem Active 2022-07-20 Memoria ve jimmy 06:43:36 l disorder, disorder, Herm oma systemic systemic arterial arterial (disorder) (disorder) Active Problem 07/20/2022 [facility] Hypothyroi Problem Active 2022-07-20 M emoria dism Hypothyroi 06:43:36 l (disorder) dism [place] n (disorder) Active Problem 07/20/2022 [facility] Osteoporos Osteoporo Problem Active 2022-07-20 Memoria is sis 06:43:36 l (disorder) (disorder) He rmann Active Problem 07/20/2022 [facility] IDIOPATHIC IDIOPATHI Diagnosis Active 2022-07-23 Memoria ASEPTIC C ASEPTIC 09:47:00 l 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 Active [facility] Closed Closed Problem Resolve 2022-07-20 Mem oria fracture fracture d 06:43:36 l of upper of upper [place] n end of end of humerus humerus (disorder) (disorder) Resolved Problem 07/20/2022 [facility] Fracture Fracture Problem Resolve 2022-07-20 Memoria of of d 06:43:36 l calcaneus calcaneus Herm oma (disorder) (disorder) Resolved Problem 07/20/2022 Bilateral [facility] History of History Problem Resolve 2022-07-20 Memoria - upper of - upper d 06:43:36 l gastrointe gastrointe He rmann stinal stinal tract tract hemorrhage hemorrhage (context-d (context-d ependent ependent category) category) Resolved Problem 07/20/2022 [facility], [facility] Heart Heart Problem Resolve 2022-07-20 Stefan adalberto murmur murmur d 06:43:36 l (finding) (finding) Willie morales Resolved Problem 07/20/2022 [facility] History of History Problem Resolve 2022-07-20 Memoria - GI Bleed of - GI d 06:43:36 l (context-d Bleed [place] n ependent (context-d category) ependent category) Resolved Problem 07/20/2022 [facility], [facility] No known No known Disease [facility] active active Health problems problems Allergies, Adverse Reactions, Alerts Allergy Allergy Status Severity Reaction(s) Onset Inactive Treating Comm ents Source Name Type Date Date Clinician NO KNOWN Drug Active Univers ALLERGIE Class ity of S [facility] NO KNOWN Allergy Active [facility] ALLERGIE S Social History Social Habit Start Date Stop Date Quantity Comments Source History SDOH University o f Alcohol Frequency [place] [facility] History SDAR University o f Alcohol Std Drinks [place] [facility] [place] History [facility] University o f Alcohol Binge [facility] al Branch Exposure to 2022-09-14 2022-09-24 Not sure [facility] SARS-CoV-2 (event) 00:00:00 13:04:00 Cigarettes smoked 2022-06-11 2022-06-11 [facility] th current (pack per 00:00:00 00:00:00 day) - Reported Cigarette 2022-06-11 2022-06-11 [facility] pack-years 00:00:00 00:00:00 Tobacco use and 2022-06-06 2022-06-06 Smokeless tobacco [facility] exposure 00:00:00 00:00:00 non-user Hospital Alcohol intake 2022-06-06 2022-06-06 Ex-drinker [facility] 00:00:00 00:00:00 (finding) Hospital Alcohol Comment 2021-10-21 2021-10-21 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 Clinician (SIG) Name Name felodipine 2021-10 Yes [id number] 5mg TAKE 1 U nivers 5 mg 24 hr 2-15 TABLET BY ity of tablet 00:00: MOUTH AT [place] 00 BEDTIME Medical Branch SYNTHROID 2021-10 Yes [id number] TAKE 1 U nivers 75 mcg 2-15 TABLET BY ity of tablet 00:00: MOUTH [place] [id number] EVERY Medical MORNING Branch methylPREDN 2021-10- Yes [id number] 4mg Take 1 UT ISolone 2-15 12-16 tablet (4 Health (Medrol 00:00: 05:59 mg total) Dospak) 4 00 :00 by mouth 1 MG tablets (one) time for 1 dose. Use as directed by package instructio ns Enoxaparin 2021-10 Yes [id number] 40mg QD Inject 0.4 UT Sodium 1-22 9107 mL (40 mg Health (Lovenox) 00:00: total) as 40 MG/0.4ML 00 directed 1 solution (one) time prefilled each day. syringe Enoxaparin 2021-10 Yes [id number] 40mg QD Inject 0.4 UT Sodium 1-22 9107 mL (40 mg Health (Lovenox) 00:00: total) as 40 MG/0.4ML 00 directed 1 solution (one) time prefilled each day. syringe Percocet 2021-10 No 1 tab, PO, Mem oria 10/325 oral 0-07 Q4H, PRN l tablet 12:42: for pain, Delmar mason # 60 tab, 0 Refill(s), given to [...] oria 0-05 cap, l 14:00: Route: PO, Ede 00 Drug form: DRC, Daily, Dosing Weight 101.818, kg, Start date: 07/15/22 9:00:00 CDT, Duration: 30 day, Stop date: 08/13/22 9:00:00 CDT Protonix 2021-10 No Notes: Memoria 0-05 Tablet l 14:00: should not Ede 00 be chewed or crushed. (Same as: Protonix) amLODIPine 2021-10 No Notes: Memor ia 0-05 (Same as: l 14:00: Norvasc) [address] 00 Synthroid 2021-10 No 75 Memoria 0-05 microgram, l 11:30: 1 tab, [address] 00 Route: PO, Drug form: TAB, Daily, Dosing Weight 101.818, kg, Start date: 07/15/22 6:30:00 CDT, Duration: 30 day, Stop date: 08/13/22 6:30:00 CDT, 0 rosuvastati 2021-10 No Notes: Stefan adalberto n 0-05 Same as l 02:00: Crestor [address] 00 vancomycin 2021-10 No 2001 mg: Me moria (SCIP) + 0-05 infuse l Sodium 01:00: over 2.5 Ede Chloride 00 hours For 0.9% IV 250 adult mL patients only: Round to nearest 250 mg per Medical Staff approval MEDICATION WASTE Product Size: 1000 mg Product Wasted: ___ mg Colace 100 2021-10 No Notes: Memor ia mg oral 0-04 (Same as: l capsule 22:00: Colace) (Do Not Crush) buPROPion 2021-10 No Notes: [...] HYDROmorpho 0-04 Route: l ne 16:02: IVP, [address] 00 Q5Min, Dosing Weight 101.818, kg, PRN [...] Memoria naloxone 0-04 Route: l 16:02: IVP, [address] 00 Q2MIN, Dosing Weight 101.818, kg, PRN [...] 0-04 Drug form: l 15:52: INJ, ONCE, [address] Stop date: 07/14/22 10:52:00 CDT 1/2 NS 2021-10 No 1,000 mL, Memori a 1,000 mL 0-04 Rate: 75 l 15:37: ml/hr, [address] 00 Infuse over: 13.3 hr, Route: IV, Dosing Weight 101.818 kg, Total Volume: 1,000, Start date: 07/14/22 10:37:00 CDT, Duration: 30 day, Stop date: 08/13/22 10:36:00 CDT, BSA: 2.18 m2, 0 [place] 2021-10 No Notes: Do Memoria 10/325 oral 0-04 not exceed l tablet 15:37: 4gm/day of Carole nn 00 acetaminop hen. (Same as: [place] 325/10) Percocet 2021-10 No 1 tab, Memoria 10/325 [...] Chloride 00 n) 0.9% IV 100 mL [place] 5/325 2021-10 No Notes: Stefan adalberto oral tablet 0-04 (Same as: l 15:37: [place] Ede 00 325/5) Do not exceed 4gm/day of acetaminop hen. Benadryl 2021-10 No Notes: Memoria 0-04 (Same as: l 15:37: Benadryl) [address] 00 ePHEDrine 2021-10 No Route: IV, Me moria [...] ONCE, Stop date: 07/14/22 8:31:00 CDT rocuronium 2022-1 No Route: IV, M emoria (ANES) 0-04 Drug form: l 13:31: INJ, ONCE, Stop date: 07/14/22 8:31:00 CDT midazolam 2021-10 No Route: IV, Me vásquez (ANES) 0-04 Drug form: l 13:26: SOLN, Ede 00 ONCE, Stop date: 07/14/22 8:26:00 CDT vancomycin 2021-10 No Route: IV, Adam emoria (ANES) 1000 0-04 Drug form: l [...] 0-04 Route: PO, l 12:00: Drug form: [address] ERTABMALCOLM, Dosing Weight 101.818, kg, Start date: 07/14/22 7:00:00 CDT, Duration: 30 day, Stop date: 08/13/22 6:59:00 CDT, 0 Tylenol 2021-10 No 1,000 mg, Memor ia 0-04 Route: PO, l 12:00: Drug form: [address] 00 TAB ONCLEBRON, Dosing Weight 101.818, kg, Start date: 07/14/22 7:00:00 CDT, Duration: 30 day, Stop date: 08/13/22 6:59:00 CDT, 0 ceFAZolin + 2021-10 No Notes: Stefan adalberto sterile 0-04 (Same As: l water 20 mL 12:00: Willie Jacobs Kefzol) MEDICATION WASTE Product Size: 1000 mg [...] Yes 0 Memoria 0-04 Refill(s) l 11:18: Ede 00 Zofran 2021-10 Yes 0 Memoria 0-04 Refill(s) l 11:18: [address] 00 ANAIS 2021-10 No Notes: Memoria Pericapsula 0-03 NOT FOR IV l r INJ 16:47: use 00 Ropivacain e 5 mg/mL (49.25 mL) Epinephrin e 1 mg/mL (0.5 mL) Clonidine 0.1 mg/mL (0.8 mL) Ketorolac 30 mg/mL (1 mL) Normal Saline 48.45 mL oxyCODONE-a 2021-10 Yes [id number] 1{tbl} Take 1 UT cetaminophe 0-03 9108 tablet by a [facility] n 00:00: mouth (Percocet) 00 every 4 10-325 MG (four) tablet hours if needed (pain) for up to 60 doses. oxyCODONE-a 2021-10 Yes [id number] 1{tbl} Take 1 UT cetaminophe 0-03 9108 tablet by a lt n 00:00: mouth (Percocet) 00 every 4 10-325 MG (four) tablet hours if needed (pain) for up to 60 doses. oxyCODONE-a 2021-10 Yes [id number] 1{tbl} Take 1 UT cetaminophe 0-03 9108 tablet by a [facility] n 00:00: mouth (Percocet) 00 every 4 10-325 MG (four) tablet hours if needed (pain) for up to 60 doses. oxyCODONE-a 2021-10 Yes [id number] 1{tbl} Take 1 UT cetaminophe 0-03 9108 tablet by a lt n 00:00: mouth (Percocet) 00 every 4 10-325 MG (four) tablet hours if needed (pain) for up to 60 doses. oxyCODONE-a 2021-10 Yes [id number] 1{tbl} Take 1 UT cetaminophe 0-03 9108 tablet by a lt n 00:00: mouth (Percocet) 00 every 4 10-325 MG (four) tablet hours if needed (pain) for up to 60 doses. oxyCODONE-a Yes [id number] 1{tbl} Take 1 UT cetaminophe 9-27 9108 tablet by a [facility] n 00:00: mouth (Percocet) 00 every 4 10-325 MG (four) tablet hours if needed (pain) for up to 60 doses. naloxone 2022- Yes [id number] 4mg Administer UT (Narcan) 4 07-07 9108 1 spray (4 He alth mg/0.1 mL 00:00: 04:59 mg total) nasal spray 00 :00 into affected nostril(s) if needed for opioid reversal. May repeat every 2-3 minutes if needed, alternatin g nostrils, until medical assistance becomes available. naloxone 2022- Yes [id number] 4mg Administer UT (Narcan) 4 07-07 9108 1 spray (4 He alth mg/0.1 mL 00:00: 04:59 mg total) nasal spray 00 :00 into affected nostril(s) if needed for opioid reversal. May repeat every 2-3 minutes if needed, alternatin g nostrils, until medical assistance becomes available. naloxone 2022- Yes [id number] 4mg Administer UT (Narcan) 4 07-07 9108 1 spray (4 He alth mg/0.1 mL 00:00: 04:59 mg total) nasal spray 00 :00 into affected nostril(s) if needed for opioid reversal. May repeat every 2-3 minutes if needed, alternatin g nostrils, until medical assistance becomes available. naloxone 2022- Yes [id number] 4mg Administer UT (Narcan) 4 07-07 9108 1 spray (4 He alth mg/0.1 mL 00:00: 04:59 mg total) nasal spray 00 :00 into affected nostril(s) if needed for opioid reversal. May repeat every 2-3 minutes if needed, alternatin g nostrils, until medical assistance becomes available. naloxone 2022- Yes [id number] 4mg Administer UT (Narcan) 4 07-07 9108 1 spray (4 He alth mg/0.1 mL 00:00: 04:59 mg total) nasal spray 00 :00 into affected nostril(s) if needed for opioid reversal. May repeat every 2-3 minutes if needed, alternatin g nostrils, until medical assistance becomes available. naloxone 2022- Yes [id number] 4mg Administer UT (Narcan) 4 07-07- 9108 1 spray (4 He alth mg/0.1 mL 00:00: 04:59 mg total) nasal spray 00 :00 into affected nostril(s) if needed for opioid reversal. May repeat every 2-3 minutes if needed, alternatin g nostrils, until medical assistance becomes available. Enoxaparin 2021- Yes [id number] 40mg QD Inject 0.4 UT Sodium 07-07 9108 mL (40 mg Health (Lovenox) 00:00: 04:59 total) as 40 MG/0.4ML 00 :00 directed 1 solution (one) time prefilled each day syringe for 9 days. ondansetron 2021- Yes [id number] 4mg Take 1 UT ODT (Zofran 07-07 [...] tab, PO, l tablet 12:51: Daily, # Ede 00 30 tab, 0 Refill(s) oxyCODONE No [...] PO, l oral tablet 12:50: Bedtime, # [address] [place] 00 30 tab, 0 Refill(s) felodipine Yes [...] = 1 M emoria 300 mg oral 22 cap, PO, l capsule 12:48: TID, # [...] ity of 5 mg tablet 16:00: daily. [address] OLANZapine Yes 15mg Take 15 mg U nivers 15 mg 06-12 by mouth. ity of tablet 16:00: [address] SERTraline Yes 50mg Take 50 mg U nivers 50 mg 06-12 by mouth. ity of tablet 16:00: [address] traZODone Yes 200mg Take 200 Uni vers 100 mg 9-02 mg by ity of tablet 16:00: mouth. [address] ARIPiprazol 2021-0 Yes 5mg Take 5 mg U nivers e (ABILIFY) 9-02 by mouth ity of 5 mg tablet 16:00: daily. [address] OLANZapine 2021-0 Yes 15mg Take 15 mg U nivers 15 mg 9-02 by mouth. ity of tablet 16:00: [address] SERTraline 2021-0 Yes 50mg Take 50 mg U nivers 50 mg 9-02 by mouth. ity of tablet 16:00: [address] traZODone 2021-0 Yes 200mg Take 200 Uni vers 100 mg 9-02 mg by ity of tablet 16:00: mouth. [address] ARIPiprazol 2021-0 Yes 5mg Take 5 mg U nivers e (ABILIFY) 9-02 by mouth ity of 5 mg tablet 16:00: daily. [address] OLANZapine 2021-0 Yes 15mg Take 15 mg U nivers 15 mg 9-02 by mouth. ity of tablet 16:00: [address] SERTraline 2021-0 Yes 50mg Take 50 mg U nivers 50 mg 9-02 by mouth. ity of tablet 16:00: [address] traZODone 2021-0 Yes 200mg Take 200 Uni vers 100 mg 9-02 mg by ity of tablet 16:00: mouth. [address] ARIPiprazol 2021-0 Yes 5mg Take 5 mg U nivers e (ABILIFY) 9-02 by mouth ity of 5 mg tablet 16:00: daily. [address] OLANZapine 2021-0 Yes 15mg Take 15 mg U nivers 15 mg 9-02 by mouth. ity of tablet 16:00: [address] SERTraline 2021-0 Yes 50mg Take 50 mg U nivers 50 mg 9-02 by mouth. ity of tablet 16:00: [address] traZODone 2021-0 Yes 200mg Take 200 Uni vers 100 mg 9-02 mg by ity of tablet 16:00: mouth. [address] ARIPiprazol 2021-0 Yes 5mg Take 5 mg U nivers e (ABILIFY) 9-02 by mouth ity of 5 mg tablet 16:00: daily. [address] OLANZapine 2-0 Yes 15mg Take 15 mg U nivers 15 mg 02 by mouth. ity of tablet 16:00: [address] SERTraline 2-0 Yes 50mg Take 50 mg U nivers 50 mg 02 by mouth. ity of tablet 16:00: [address] traZODone 2-0 Yes 200mg Take 200 Uni vers 100 mg -02 mg by ity of tablet 16:00: mouth. [address] Vortioxetin 2-0 Yes 10mg QD Take 10 mg UT [...] 59 each day. gabapentin 2022-0 Yes 600mg Q.[id number] Take 600 UT (Neurontin) 9- [id number] mg by H ealth 600 MG 09:37: [...] 59 each day. gabapentin 2022-0 Yes 600mg Q.[id number] Take 600 UT (Neurontin) 06-11 [id number] mg by H ealth 600 MG 09:37: [...] 59 each day. gabapentin 2022-0 Yes 600mg Q.[id number] Take 600 UT (Neurontin) 9- [id number] mg by H ealth 600 MG 09:37: [...] 59 each day. gabapentin 2022-0 Yes 600mg Q.[id number] Take 600 UT (Neurontin) 9- [id number] mg by H ealth 600 MG 09:37: [...] 59 each day. gabapentin 2022-0 Yes 600mg Q.[id number] Take 600 UT (Neurontin) 9- [id number] mg by H ealth 600 MG 09:37: [...] 59 each day. gabapentin 2022-0 Yes 600mg Q.[id number] Take 600 UT (Neurontin) 9- [id number] mg by H ealth 600 MG 09:37: 3D mouth in tablet 59 the morning and 600 mg at noon and 600 mg in the evening. levothyroxi 2022-0 Yes 88ug QD Take 88 UT ne 9-01 mcg by Health (Synthroid, 09:37: mouth 1 Levoxyl) 88 59 (one) time MCG tablet each day. gabapentin 202-0 Yes 600mg Q.[id number] Take 600 UT (Neurontin) 9- [id number] mg by H ealth 600 MG 09:37: 3D mouth in tablet 59 the morning and 600 mg at noon and 600 mg in the evening. levothyroxi 2022-0 Yes 88ug QD Take 88 UT ne 9-01 mcg by Health (Synthroid, 09:37: mouth 1 Levoxyl) 88 59 (one) time MCG tablet each day. ARIPiprazol 202-0 Yes 5mg QD Take 5 mg U T e (Abilify) 06-11 by mouth 1 He alth 5 MG tablet 09:37: (one) time 59 each day. gabapentin 2021-0 Yes 600mg Q.[id number] Take 600 UT (Neurontin) 06-11 [id number] mg by H ealth 600 MG 09:37: 3D mouth in tablet 59 the morning and 600 mg at noon and 600 mg in the evening. levothyroxi 2021-0 Yes 88ug QD Take 88 UT ne 9-01 mcg by Health (Synthroid, 09:37: mouth 1 Levoxyl) 88 59 (one) time MCG tablet each day. omeprazole 2021-2021- No [id number] 20mg QD Take 1 UT OTC 06-11 tablet (20 Health (PriLOSEC 00:00: 04:59 mg total) OTC) 20 MG 00 :00 by mouth 1 EC tablet (one) time each day. Do not crush, chew, or split. Take w/ NSAID Diclofenac 2021-0 2021- No [id number] Q.28343618 Apply UT Sodium 06-11 [id number] topically H ealth (Voltaren) 00:00: 04:59 3D 3 (three) 1 % 00 :00 times a external day if gel needed (pain). Apply 4 grams to affected area, do not exceed greater than 16 grams a day meloxicam 2021-0 2021- No [id number] 7.5mg Take 1 UT (Mobic) 7.5 06-11 tablet Healt h MG tablet 00:00: 04:59 (7.5 mg 00 :00 total) by mouth 1 (one) time each day if needed (pain). omeprazole 2021- No [id number] 20mg QD Take 1 UT OTC 06-11 tablet (20 Health (PriLOSEC 00:00: 04:59 mg total) OTC) 20 MG 00 :00 by mouth 1 EC tablet (one) time each day. Do not crush, chew, or split. Take w/ NSAID Diclofenac 2021- No [id number] Q.51394055 Apply UT Sodium 06-11 [id number] topically H ealth (Voltaren) 00:00: 04:59 3D 3 (three) 1 % 00 :00 times a external day if gel needed (pain). Apply 4 grams to affected area, do not exceed greater than 16 grams a day meloxicam 2021- No [id number] 7.5mg Take 1 UT (Mobic) 7.5 06-11 tablet Healt h MG tablet 00:00: 04:59 (7.5 mg 00 :00 total) by mouth 1 (one) time each day if needed (pain). omeprazole 2021- No [id number] 20mg QD Take 1 UT OTC 06-11 tablet (20 Health (PriLOSEC 00:00: 04:59 mg total) OTC) 20 MG 00 :00 by mouth 1 EC tablet (one) time each day. Do not crush, chew, or split. Take w/ NSAID Diclofenac No [id number] Q.[id number] Apply UT Sodium 06-11 [id number] topically H ealth (Voltaren) 00:00: 04:59 3D 3 (three) 1 % 00 :00 times a external day if gel needed (pain). Apply 4 grams to affected area, do not exceed greater than 16 grams a day meloxicam 2021-0 2021- No [id number] 7.5mg Take 1 UT (Mobic) 7.5 06-11 tablet Healt h MG tablet 00:00: 04:59 (7.5 mg 00 :00 total) by mouth 1 (one) time each day if needed (pain). methylPREDN 2021- No [id number] 4mg Take 1 UT ISolone 06-11 tablet (4 Health (Medrol 00:00: 04:59 mg total) Dospak) 4 00 :00 by mouth 1 MG tablets (one) time for 1 dose. Use as directed by package instructio ns levothyroxi 2021-0 Yes 88ug QD Take 1 [...] (two) times a day. traMADoL 2021-0 Yes 53560 50mg Q.5D Take 1 [facility] (ULTRAM) 50 06-07 tablet (50 st mg tablet 22:14: mg total) [facility] 00 by mouth 2 l (two) times a day .acute pain. oxyCODone 2021-0 Yes 01357 15mg Q.[id number] Take 1 [facility] (ROXICODONE 06-07 [id number] tablet (15 st ) 15 MG 22:14: 3D mg total) [facility] immediate 00 by mouth 3 l release (three) tablet times a day .acute pain. Max Daily Amount: 45 mg gabapentin 2021-0 Yes 600mg Q.37161474 Take 1 [facility] (NEURONTIN) 06-[id number] 600 mg 22:14: 3D (600 [...] QD Take 1 Meth kathleen e (ABILIFY) -28 tablet (5 st 5 MG tablet 22:14: [...] (two) times a day. traMADoL 2021-0 Yes 51302 50mg Q.5D Take 1 [facility] (ULTRAM) 50 06-07 tablet (50 st mg tablet 22:14: mg total) [facility] 00 by mouth 2 l (two) times a day .acute pain. oxyCODone 2021-0 Yes 95412 15mg Q.[id number] Take 1 [facility] (ROXICODONE -28 [id number] tablet (15 st ) 15 MG 22:14: 3D mg total) [facility] immediate 00 by mouth 3 l release (three) tablet times a day .acute pain. Max Daily Amount: 45 mg gabapentin 2021-0 Yes 600mg Q.[id number] Take 1 [facility] (NEURONTIN) 06-[id number] 600 mg 22:14: 3D (600 [...] l 24 hr mouth tablet daily. ARIPiprazol 2-0 Yes 5mg QD Take 1 [facility] kathleen [...] (two) times a day. traMADoL 2-0 Yes 15540 50mg Q.5D Take 1 [facility] (ULTRAM) 50 - tablet (50 st mg tablet 22:14: mg total) [facility] 00 by mouth 2 l (two) times a day .acute pain. oxyCODone 2021-0 Yes 39320 15mg Q.06534100 Take 1 [facility] (ROXICODONE 06-07 [id number] tablet (15 st ) 15 MG 22:14: 3D mg total) [facility] immediate 00 by mouth 3 l release (three) tablet times a day .acute pain. Max Daily Amount: 45 mg gabapentin 2022-0 Yes 600mg Q.[id number] Take 1 [facility] (NEURONTIN) 06-[id number] 600 mg 22:14: 3D (600 [...] (two) times a day. traMADoL 2-0 Yes 74491 50mg Q.5D Take 1 [facility] (ULTRAM) 50 - tablet (50 st mg tablet 22:14: mg total) [facility] 00 by mouth 2 l (two) times a day .acute pain. oxyCODone 2021-0 Yes 14052 15mg Q.16955717 Take 1 [facility] (ROXICODONE 06-07 [id number] tablet (15 st ) 15 MG 22:14: 3D mg total) [facility] immediate 00 by mouth 3 l release (three) tablet times a day .acute pain. Max Daily Amount: 45 mg gabapentin 2021-0 Yes 600mg Q.[id number] Take 1 [facility] (NEURONTIN) 06-[id number] 600 mg 22:14: 3D (600 [...] (two) times a day. traMADoL 2-0 Yes 41301 50mg Q.5D Take 1 [facility] (ULTRAM) 50 06-07 tablet (50 st mg tablet 22:14: mg total) [facility] 00 by mouth 2 l (two) times a day .acute pain. oxyCODone 2-0 Yes 13707 15mg Q.75646108 Take 1 [facility] (ROXICODONE 06-07 [id number] tablet (15 st ) 15 MG 22:14: 3D mg total) [facility] immediate 00 by mouth 3 l release (three) tablet times a day .acute pain. Max Daily Amount: 45 mg gabapentin 2-0 Yes 600mg Q.34332769 Take 1 [facility] (NEURONTIN) - [id number] tablet st 600 mg 22:14: 3D (600 mg Hosp[facility] tablet 00 total) by l mouth 3 (three) times a day. diclofenac 2022-0 Yes 75mg QD Take 1 [facility] (VOLTAREN) -28 tablet (75 st 75 MG EC 22:14: [...] (two) times a day. traMADoL 2022-0 Yes 06484 50mg Q.5D Take 1 [facility] (ULTRAM) 50 8-28 tablet (50 st mg tablet 22:14: mg total) [facility] 00 by mouth 2 l (two) times a day .acute pain. oxyCODone 2022-0 Yes 20364 15mg Q.53351190 Take 1 [facility] (ROXICODONE 8-28 [id number] tablet (15 st ) 15 MG 22:14: 3D mg total) [facility] immediate 00 by mouth 3 l release (three) tablet times a day .acute pain. Max Daily Amount: 45 mg gabapentin 2022-0 Yes 600mg Q.82227928 Take 1 [facility] (NEURONTIN) 06-[id number] 600 mg 22:14: 3D (600 [...] (two) times a day. traMADoL 2021-0 Yes 79395 50mg Q.5D Take 1 [facility] (ULTRAM) 50 06-07 tablet (50 st mg tablet 22:14: mg total) [facility] 00 by mouth 2 l (two) times a day .acute pain. oxyCODone 2021-0 Yes 33008 15mg Q.17434332 Take 1 [facility] (ROXICODONE 06-07 [id number] tablet (15 st ) 15 MG 22:14: 3D mg total) [facility] immediate 00 by mouth 3 l release (three) tablet times a day .acute pain. Max Daily Amount: 45 mg gabapentin 2021-0 Yes 600mg Q.02016221 Take 1 [facility] (NEURONTIN) 06-[id number] 600 mg 22:14: 3D (600 [...] QD Take 1 [facility] di (PLENDIL) 5 28 tablet (5 st MG 24 hr 22:14: [...] (two) times a day. traMADoL 2021-0 Yes 69365 50mg Q.5D Take 1 [facility] (ULTRAM) 50 06-07 tablet (50 st mg tablet 22:14: mg total) [facility] 00 by mouth 2 l (two) times a day .acute pain. oxyCODone 2021-0 Yes 50035 15mg Q.10368585 Take 1 [facility] (ROXICODONE 06-07 [id number] tablet (15 st ) 15 MG 22:14: 3D mg total) [facility] immediate 00 by mouth 3 l release (three) tablet times a day .acute pain. Max Daily Amount: 45 mg gabapentin 2021-0 Yes 600mg Q.23289168 Take 1 [facility] (NEURONTIN) 06-[id number] 600 mg 22:14: 3D (600 [...] QD Take 1 Meth kathleen n (CRESTOR) 28 tablet (20 st 20 mg 22:14: mg [...] (two) times a day. traMADoL 2021-0 Yes 70239 50mg Q.5D Take 1 [facility] (ULTRAM) 50 06-07 tablet (50 st mg tablet 22:14: mg total) [facility] 00 by mouth 2 l (two) times a day .acute pain. oxyCODone 2021-0 Yes 68402 15mg Q.25366258 Take 1 [facility] (ROXICODONE 06-07 [id number] tablet (15 st ) 15 MG 22:14: 3D mg total) [facility] immediate 00 by mouth 3 l release (three) tablet times a day .acute pain. Max Daily Amount: 45 mg gabapentin 2021-0 Yes 600mg Q.27176364 Take 1 [facility] (NEURONTIN) 06-[id number] 600 mg 22:14: 3D (600 [...] (two) times a day. traMADoL 2022-0 Yes 08443 50mg Q.5D Take 1 [facility] (ULTRAM) 50 8-28 tablet (50 st mg tablet 22:14: mg total) [facility] 00 by mouth 2 l (two) times a day .acute pain. oxyCODone 2021-0 Yes 70373 15mg Q.98028135 Take 1 [facility] (ROXICODONE 06-07 [id number] tablet (15 st ) 15 MG 22:14: 3D mg total) [facility] immediate 00 by mouth 3 l release (three) tablet times a day .acute pain. Max Daily Amount: 45 mg omeprazole 2022-0 Yes 20mg QD Take 1 [facility] (PriLOSEC) 06-[address] 20 MG 22:14: (20 mg [facility]osp[facility] capsule 00 total) by l mouth daily. gabapentin 2021-0 Yes 600mg Q.43466079 Take 1 [facility] (NEURONTIN) 06-[id number] 600 mg 22:14: 3D (600 [...] (two) times a day. traMADoL 2022-0 Yes 59113 50mg Q.5D Take 1 [facility] (ULTRAM) 50 8-28 tablet (50 st mg tablet 22:14: mg total) [facility] 00 by mouth 2 l (two) times a day .acute pain. levothyroxi 2022-0 Yes 88ug QD Take 1 [...] (two) times a day. traMADoL 2022-0 Yes 80292 50mg Q.5D Take 1 [facility] (ULTRAM) 50 8-28 tablet (50 st mg tablet 22:14: mg total) [facility] 00 by mouth 2 l (two) times a day .acute pain. oxyCODone 2022-0 Yes 21967 15mg Q.11830390 Take 1 [facility] (ROXICODONE 8- [id number] tablet (15 st ) 15 MG 22:14: 3D mg total) [facility] immediate 00 by mouth 3 l release (three) tablet times a day .acute pain. Max Daily Amount: 45 mg oxyCODone 2022-0 Yes 85884 15mg Q.34518425 Take 1 [facility] (ROXICODONE 8-28 [id number] tablet (15 st ) 15 MG 22:14: 3D mg total) [facility] immediate 00 by mouth 3 l release (three) tablet times a day .acute pain. Max Daily Amount: 45 mg gabapentin 2022-0 Yes 600mg Q.37913075 Take 1 [facility] (NEURONTIN) 8-[id number] 600 mg 22:14: 3D (600 [...] ospita 00 by mouth l daily. gabapentin 2-0 Yes 600mg Q.42353927 Take 1 [facility] (NEURONTIN) 06-[id number] 600 mg 22:14: 3D (600 [...] (two) times a day. traMADoL 2021-0 Yes 58469 50mg Q.5D Take 1 [facility] (ULTRAM) 50 06-07 tablet (50 st mg tablet 22:14: mg total) [facility] 00 by mouth 2 l (two) times a day .acute pain. oxyCODone 2021-0 Yes 96348 15mg Q.84058268 Take 1 [facility] (ROXICODONE 06-07 [id number] tablet (15 st ) 15 MG 22:14: 3D mg total) [facility] immediate 00 by mouth 3 l release (three) tablet times a day .acute pain. Max Daily Amount: 45 mg escitalopra 2021-0 Yes 20mg QD Take 1 Meth kathleen m (LEXAPRO) 06-07 tablet (20 st 20 MG 22:14: mg total) Hospita tablet 00 by mouth l daily. gabapentin 2021-0 Yes 600mg Q.45009338 Take 1 [facility] (NEURONTIN) 06-[id number] 600 mg 22:14: 3D (600 [...] QD Take 1 Meth kathleen n (CRESTOR) -28 tablet (20 st 20 mg 22:14: mg [...] (two) times a day. traMADoL 2-0 Yes 16203 50mg Q.5D Take 1 [facility] (ULTRAM) 50 - tablet (50 st mg tablet 22:14: mg total) Hos [facility] 00 by mouth 2 l (two) times a day .acute pain. oxyCODone 2-0 Yes 05215 15mg Q.80867959 Take 1 [facility] (ROXICODONE -28 [id number] tablet (15 st ) 15 MG 22:14: [...] mouth tablet daily. gabapentin 2022-0 Yes 600mg Q.63176158 Take 1 [facility] (NEURONTIN) 06-[id number] 600 mg 22:14: 3D (600 [...] (two) times a day. traMADoL 2021-0 Yes 69303 50mg Q.5D Take 1 [facility] (ULTRAM) 50 06-07 tablet (50 st mg tablet 22:14: mg total) Hos [facility] 00 by mouth 2 l (two) times a day .acute pain. oxyCODone 2021-0 Yes 06599 15mg Q.60093603 Take 1 [facility] (ROXICODONE 06-07 [id number] tablet (15 st ) 15 MG 22:14: 3D mg total) Hospi ta immediate 00 by mouth 3 l release (three) tablet times a day .acute pain. Max Daily Amount: 45 mg gabapentin 0 Yes 600mg Q.93801774 Take 1 [facility] (NEURONTIN) 06-[id number] 600 mg 22:14: 3D (600 [...] (two) times a day. traMADoL 2021-0 Yes 12541 50mg Q.5D Take 1 [facility] (ULTRAM) 50 06-07 tablet (50 st mg tablet 22:14: mg total) Hos le[facility] 00 by mouth 2 l (two) times a day .acute pain. oxyCODone 2021-0 Yes 61520 15mg Q.59874305 Take 1 [facility] (ROXICODONE 06-07 [id number] tablet (15 st ) 15 MG 22:14: 3D mg total) Hospi ta immediate 00 by mouth 3 l release (three) tablet times a day .acute pain. Max Daily Amount: 45 mg gabapentin 2-0 Yes 600mg Q.25176400 Take 1 [facility] (NEURONTIN) 06-[id number] 600 mg 22:14: 3D (600 [...] (two) times a day. traMADoL 2021-0 Yes 40880 50mg Q.5D Take 1 [facility] (ULTRAM) 50 - tablet (50 st mg tablet 22:14: mg total) Hos le[facility] 00 by mouth 2 l (two) times a day .acute pain. oxyCODone 2-0 Yes 67295 15mg Q.67239246 Take 1 [facility] (ROXICODONE - [id number] tablet (15 st ) 15 MG 22:14: 3D mg total) Hospi ta immediate 00 by mouth 3 l release (three) tablet times a day .acute pain. Max Daily Amount: 45 mg gabapentin 2-0 Yes 600mg Q.21896077 Take 1 [facility] (NEURONTIN) 06-[id number] 600 mg 22:14: 3D (600 [...] (two) times a day. traMADoL 2021-0 Yes 70615 50mg Q.5D Take 1 [facility] (ULTRAM) 50 06-07 tablet (50 st mg tablet 22:14: mg total) Hos le[facility] 00 by mouth 2 l (two) times a day .acute pain. oxyCODone 2021-0 Yes 96562 15mg Q.49922515 Take 1 [facility] (ROXICODONE 06-07 [id number] tablet (15 st ) 15 MG 22:14: 3D mg total) Hospi ta immediate 00 by mouth 3 l release (three) tablet times a day .acute pain. Max Daily Amount: 45 mg gabapentin 2021-0 Yes 600mg Q.03368820 Take 1 [facility] (NEURONTIN) 06-[id number] 600 mg 22:14: 3D (600 [...] l 24 hr mouth tablet daily. ARIPiprazol 2-0 Yes 5mg QD Take 1 Meth kathleen e (ABILIFY) 8-28 tablet (5 st 5 MG tablet 22:14: mg total) H [facility]spita 00 by mouth l daily. vortioxetin 2021-0 2022- No 10mg QD Take 10 mg [facility] 8-27 08-[address] (TRINTELLIX 18:46: 00:00 daily. [...] 10 mg 00 :00 l tablet vortioxetin 2-0 2022- No 10mg QD Take 10 mg [facility] 06-[address] (TRINTELLIX 18:46: 00:00 daily. Hos le[facility] ) 10 mg 00 :00 l tablet vortioxetin 2-0 2022- No 10mg QD Take 10 mg [...] mg 00 :00 l tablet sertraline 2021-0 2022- No 50mg QD Take 50 mg [facility] (ZOLOFT) 50 06-06- by mouth st MG tablet 18:45: 00:00 daily. [facility] 51 :00 l sertraline 2022-0 2022- No 50mg QD Take 50 mg [facility] (ZOLOFT) 50 06-06- by mouth st MG tablet 18:45: 00:00 daily. [facility] 51 :00 l sertraline 2022-0 2022- No 50mg QD Take 50 mg [facility] (ZOLOFT) 50 06-06- by mouth st MG tablet 18:45: 00:00 daily. [facility] 51 :00 l sertraline 2022-0 2022- No 50mg QD Take 50 mg [facility] (ZOLOFT) 50 06-[address] MG tablet 18:45: 00:00 daily. [facility] 51 :00 l sertraline 2022-0 2022- No 50mg QD Take 50 mg [facility] (ZOLOFT) 50 06-[address] MG tablet 18:45: 00:00 daily. [facility] 51 :00 l sertraline 2022-0 2022- No 50mg QD Take 50 mg [facility] (ZOLOFT) 50 06-[address] MG tablet 18:45: 00:00 daily. [facility] 51 :00 l sertraline 2022-0 2022- No 50mg QD Take 50 mg [facility] (ZOLOFT) 50 06-06- by mouth st MG tablet 18:45: 00:00 daily. [facility] 51 :00 l sertraline 2022-0 2022- No 50mg QD Take 50 mg [facility] (ZOLOFT) 50 06-06- by mouth st MG tablet 18:45: 00:00 daily. [facility] 51 :00 l sertraline 2022-0 2022- No 50mg QD Take 50 mg [facility] (ZOLOFT) 50 06-06- by mouth st MG tablet 18:45: 00:00 daily. [facility] 51 :00 l sertraline 2022-0 2022- No 50mg QD Take 50 mg [facility] (ZOLOFT) 50 06-06- by mouth st MG tablet 18:45: 00:00 daily. [facility] 51 :00 l sertraline 2022-0 2022- No 50mg QD Take 50 mg [facility] (ZOLOFT) 50 06-[address] MG tablet 18:45: 00:00 daily. [facility] 51 :00 l sertraline 2022-0 2022- No 50mg QD Take 50 mg [facility] (ZOLOFT) 50 06-[address] MG tablet 18:45: 00:00 daily. [facility] 51 :00 l sertraline 2022-0 2022- No 50mg QD Take 50 mg [facility] (ZOLOFT) 50 06-[address] MG tablet 18:45: 00:00 daily. [facility] 51 :00 l sertraline 2022-0 2022- No 50mg QD Take 50 mg [facility] (ZOLOFT) 50 06-[address] MG tablet 18:45: 00:00 daily. [facility] 51 :00 l sertraline 2022-0 2022- No 50mg QD Take 50 mg [facility] (ZOLOFT) 50 06-[address] MG tablet 18:45: 00:00 daily. [facility] 51 :00 l sertraline 2022-0 2022- No 50mg QD Take 50 mg [facility] (ZOLOFT) 50 06-[address] MG tablet 18:45: 00:00 daily. [facility] 51 :00 l sertraline 2022-0 2022- No 50mg QD Take 50 mg [facility] (ZOLOFT) 50 06-[address] MG tablet 18:45: 00:00 daily. [facility] 51 :00 l sertraline 2022-0 2022- No 50mg QD Take 50 mg [facility] (ZOLOFT) 50 06-[address] MG tablet 18:45: 00:00 daily. [facility] 51 :00 l methylpheni 2022-0 2022- No 54mg QD Take 54 mg [facility] date HCl 06-[address] (CONCERTA) 18:45: 00:00 every [facility] ta 54 MG CR 32 :00 morning. [...] CR 32 :00 morning. l tablet omeprazole 2-0 2022- No 40mg QD Take 40 mg [facility] (PriLOSEC) 06-[address] 40 MG 18:44: 00:00 daily Hospita capsule 55 :00 before l breakfast. omeprazole 2022-0 2022- No 40mg QD Take 40 mg [...] capsule 55 :00 before l breakfast. omeprazole 2-0 2022- No 40mg QD Take 40 mg [...] capsule 55 :00 before l breakfast. clonAZEPAM 2021-2021- No 1mg Q.35575244 Take 1 mg [facility] (KlonoPIN) 06-06 [id number] by mouth [address] 1 MG tablet 18:44: 00:00 3D (three) Ho spita 34 :00 times a l day. clonAZEPAM 2021-0 2021- No 1mg Q.[id number] Take 1 mg [facility] (KlonoPIN) 06-06 [id number] by mouth [address] 1 MG tablet 18:44: 00:00 3D (three) Ho spita 34 :00 times a l day. clonAZEPAM 2022-0 2022- No 1mg Q.03051304 Take 1 mg [facility] (KlonoPIN) 06-06 [id number] by mouth 3 [address] 1 MG tablet 18:44: 00:00 3D (three) Ho spita 34 :00 times a l day. clonAZEPAM 2022-0 2022- No 1mg Q.18852414 Take 1 mg [facility] (KlonoPIN) 06-06 [id number] by mouth 3 [address] 1 MG tablet 18:44: 00:00 3D (three) Ho spita 34 :00 times a l day. clonAZEPAM 2022-0 2022- No 1mg Q.96875785 Take 1 mg [facility] (KlonoPIN) 06-06 [id number] by mouth 3 [address] 1 MG tablet 18:44: 00:00 3D (three) Ho [facility]ita 34 :00 times a l day. clonAZEPAM 2022-0 2022- No 1mg Q.16457589 Take 1 mg [facility] (KlonoPIN) 06-06 [id number] by mouth 3 [address] 1 MG tablet 18:44: 00:00 3D (three) Ho spita 34 :00 times a l day. clonAZEPAM 2022-0 2022- No 1mg Q.63335743 Take 1 mg [facility] (KlonoPIN) 06-06 [id number] by mouth 3 [address] 1 MG tablet 18:44: 00:00 3D (three) Ho spita 34 :00 times a l day. clonAZEPAM 2022-0 2022- No 1mg Q.[id number] Take 1 mg [facility] (KlonoPIN) 06-06 [id number] by mouth 3 [address] 1 MG tablet 18:44: 00:00 3D (three) Ho spita 34 :00 times a l day. clonAZEPAM 2022-0 2022- No 1mg Q.18687956 Take 1 mg [facility] (KlonoPIN) 06-06 [id number] by mouth 3 [address] 1 MG tablet 18:44: 00:00 3D (three) Ho spita 34 :00 times a l day. clonAZEPAM 2022-0 2022- No 1mg Q.03388545 Take 1 mg [facility] (KlonoPIN) 06-06 [id number] by mouth 3 [address] 1 MG tablet 18:44: 00:00 3D (three) [facility] 34 :00 times a l day. clonAZEPAM 2022-0 2022- No 1mg Q.39124586 Take 1 mg [facility] (KlonoPIN) 06-06 [id number] by mouth [facility] [address] 1 MG tablet 18:44: 00:00 3D (three) [facility]ita 34 :00 times a l day. clonAZEPAM 2022-0 2022- No 1mg Q.74418614 Take 1 mg [facility] (KlonoPIN) 06-06 [id number] by mouth [address] 1 MG tablet 18:44: 00:00 3D (three) [facility] 34 :00 times a l day. clonAZEPAM 2022-0 2022- No 1mg Q.00020018 Take 1 mg [facility] (KlonoPIN) 06-06 [id number] by mouth [facility] [address] 1 MG tablet 18:44: 00:00 3D (three) [facility]ita 34 :00 times a l day. clonAZEPAM 2022-0 2022- No 1mg Q.82062069 Take 1 mg [facility] (KlonoPIN) 06-06 [id number] by mouth [facility] [address] 1 MG tablet 18:44: 00:00 3D (three) [facility] 34 :00 times a l day. clonAZEPAM 2022-0 2022- No 1mg Q.[id number] Take 1 mg [facility] (KlonoPIN) 06-06 [id number] by mouth [address] 1 MG tablet 18:44: 00:00 3D (three) [facility] 34 :00 times a l day. clonAZEPAM 2022-0 2022- No 1mg Q.[id number] Take 1 mg [facility] (KlonoPIN) 06-06 [id number] by mouth [address] 1 MG tablet 18:44: 00:00 3D (three) [facility] spita 34 :00 times a l day. clonAZEPAM 2022-0 2022- No 1mg Q.[id number] Take 1 mg [facility] (KlonoPIN) 06-06- [id number] by mouth 3 st 1 MG tablet 18:44: 00:00 3D (three) [facility] spita 34 :00 times a l day. clonAZEPAM 2021-2021- No 1mg Q.81268455 Take 1 mg [facility] (KlonoPIN) 06-06-27 [id number] by mouth 3 [address] 1 MG tablet 18:44: 00:00 3D (three) [facility] 34 :00 times a l day. levothyroxi 2021-2021- No 75ug QD Take 75 [...] 2021- No 75ug QD Take 75 [facility] ne 06-06 08-[address] (SYNTHROID, 18:44: 00:00 mouth [facility]osp [facility] LEVOXYL) 75 09 :00 every l mcg tablet morning. levothyroxi 2021- No 75ug QD Take 75 Me [facility] ne 06-06 08-[address] (SYNTHROID, 18:44: 00:00 mouth Hosp vick LEVOXYL) 75 09 :00 every l mcg tablet morning. predniSONE 2021-2021- No 20mg QD Take 1 [...] l daily for 5 days. predniSONE 2021-0 2022- No 20mg QD Take 1 Meth kathleen (DELTASONE) 06-06 tablet (20 s t 20 mg 00:00: 04:59 mg total) Hospit a tablet 00 :00 by mouth l daily for 5 days. predniSONE 2-0 2022- No 20mg QD Take 1 Meth kathleen (DELTASONE) 06-06 tablet (20 s t 20 mg 00:00: 04:59 mg total) Hospit a tablet 00 :00 by mouth l daily for 5 days. predniSONE 2021-0 2022- No 20mg QD Take 1 Meth kathleen (DELTASONE) 06-06 tablet (20 s t 20 mg 00:00: 04:59 mg total) Hospit a tablet 00 :00 by mouth l daily for 5 days. predniSONE 2021-0 2022- No 20mg QD Take 1 Meth kathleen (DELTASONE) 06-06 tablet (20 s t 20 mg 00:00: 04:59 mg total) Hospit a tablet 00 :00 by mouth l daily for 5 days. predniSONE 2021-0 2022- No 20mg QD Take 1 Meth kathleen (DELTASONE) 06-06 tablet (20 s t 20 mg 00:00: 04:59 mg total) Hospit a tablet 00 :00 by mouth l daily for 5 days. predniSONE 2021-0 2022- No 20mg QD Take 1 Meth kathleen (DELTASONE) 06-06 tablet (20 s t 20 mg 00:00: 04:59 mg total) Hospit a tablet 00 :00 by mouth l daily for 5 days. predniSONE 2021-0 2022- No 20mg QD Take 1 Meth kathleen (DELTASONE) 06-06 tablet (20 s t 20 mg 00:00: 04:59 mg total) Hospit a tablet 00 :00 by mouth l daily for 5 days. predniSONE 2022-0 2022- No 20mg QD Take 1 Meth kathleen (DELTASONE) 06-06 tablet (20 s t 20 mg 00:00: 04:59 mg total) Hospit a tablet 00 :00 by mouth l daily for 5 days. predniSONE 2022-0 2022- No 20mg QD Take 1 Meth kathleen (DELTASONE) 06-06 tablet (20 s t 20 mg 00:00: 04:59 mg total) Hospit a tablet 00 :00 by mouth l daily for 5 days. predniSONE 2021-0 202- No 20mg QD Take 1 Meth kathleen (DELTASONE) 06-06 tablet (20 s t 20 mg 00:00: 04:59 mg total) Hospit a tablet 00 :00 by mouth l daily for 5 days. predniSONE 2021-0 202- No 20mg QD Take 1 Meth kathleen [...] l daily for 5 days. levothyroxi Yes [id number] 88ug Take 1 [facility] 88 mcg 8-24 tablet by [facility] o f tablet 00:00: mouth [place] 00 every Medical morning. Branch levothyroxi Yes [id number] 88ug Take 1 [facility] 88 mcg 8-24 tablet by ity o f tablet 00:00: mouth [place] 00 every Medical morning. Branch levothyroxi Yes [id number] 88ug Take 1 [facility] 88 mcg 8-24 tablet by ity o f tablet 00:00: mouth [place] 00 every Medical morning. Branch levothyroxi 0 Yes [id number] 88ug Take 1 [facility] 88 mcg 8-24 tablet by ity o f tablet 00:00: mouth [place] 00 every Medical morning. Branch levothyroxi Yes [id number] 88ug Take 1 [facility] 88 mcg 8-24 tablet by ity o f tablet 00:00: mouth [place] 00 every Medical morning. Branch diclofenac Yes 75mg Q.5D Take 75 mg [facility] (Voltaren) 06-01 by mouth Healt [facility] 75 MG EC 00:00: in the tablet 00 morning and 75 mg before bedtime. oxyCODONE 0 Yes 15mg Q.14436531 Take 15 mg [facility] (Roxicodone 8-22 [id number] by mouth 3 Health ) 15 MG 00:00: 3D (three) immediate 00 times a release day if tablet needed. diclofenac 2022-0 Yes 75mg Q.5D Take 75 mg [facility] (Voltaren) 8-22 by mouth Healt [facility] 75 MG EC 00:00: in the tablet 00 morning and 75 mg before bedtime. oxyCODONE 2022-0 Yes 15mg Q.56855405 Take 15 mg [facility] (Roxicodone 8-22 [id number] by mouth 3 Health ) 15 MG 00:00: 3D (three) immediate 00 times a release day if tablet needed. diclofenac 2022-0 Yes 75mg Q.5D Take 75 mg [facility] (Voltaren) 8-22 by mouth Healt [facility] 75 MG EC 00:00: in the tablet 00 morning and 75 mg before bedtime. oxyCODONE 2022-0 Yes 15mg Q.93188933 Take 15 mg [facility] (Roxicodone 8-22 [id number] by mouth 3 Health ) 15 MG 00:00: 3D (three) immediate 00 times a release day if tablet needed. diclofenac 2022-0 Yes 75mg Q.5D Take 75 mg [facility] (Voltaren) 8-22 by mouth Healt [facility] 75 MG EC 00:00: in the tablet 00 morning and 75 mg before bedtime. oxyCODONE 2022-0 Yes 15mg Q.61466906 Take 15 mg [facility] (Roxicodone 8-22 [id number] by mouth 3 Health ) 15 MG 00:00: 3D (three) immediate 00 times a release day if tablet needed. diclofenac 2022-0 Yes 75mg Q.5D Take 75 mg [facility] (Voltaren) 8-22 by mouth Healt [facility] 75 MG EC 00:00: in the tablet 00 morning and 75 mg before bedtime. oxyCODONE 2022-0 Yes 15mg Q.84596218 Take 15 mg [facility] (Roxicodone 8-22 [id number] by mouth 3 Health ) 15 MG 00:00: 3D (three) immediate 00 times a release day if tablet needed. diclofenac 2022-0 Yes 75mg Q.5D Take 75 mg [facility] (Voltaren) 8-22 by mouth Healt [facility] 75 MG EC 00:00: in the tablet 00 morning and 75 mg before bedtime. oxyCODONE 2022-0 Yes 15mg Q.53530740 Take 15 mg [facility] (Roxicodone 8-22 [id number] by mouth 3 Health ) 15 MG 00:00: 3D (three) immediate 00 times a release day if tablet needed. diclofenac 2022-0 Yes 75mg Q.5D Take 75 mg [facility] (Voltaren) 8-22 by mouth Healt [facility] 75 MG EC 00:00: in the tablet 00 morning and 75 mg before bedtime. oxyCODONE 2022-0 Yes 15mg [id number] Take 15 mg [facility] (Roxicodone 8-22 [id number] by [facility] ) 15 MG 00:00: 3D (three) immediate 00 times a release day if tablet needed. diclofenac 2022-0 Yes 75mg Q.5D Take 75 mg [facility] (Voltaren) 8-22 by [facility] 75 MG EC 00:00: in the tablet 00 morning and 75 mg before bedtime. oxyCODONE 2022-0 Yes 15mg [id number] Take 15 mg [facility] (Roxicodone 8-22 [id number] by [facility] ) 15 MG [...] TAKE 1 UT XL 8-19 TABLET BY [facility] (Wellbutrin 00:00: MOUTH XL) 150 MG 00 [...] s mg tablet 8-10 ity of 00:00: [place] [facility] traMADoL 50 2-0 Yes Univer s mg tablet 8-10 ity of 00:00: [place] [facility] traMADoL 50 2-0 Yes Univer s mg tablet 8-10 ity of 00:00: [place] [facility] traMADoL 50 2021-0 Yes Univer s mg tablet 8-10 ity of 00:00: [place] [facility] traMADoL 50 2-0 Yes Univer s mg tablet 8-10 ity of 00:00: [place] [facility] traMADol 2-0 Yes 50mg Q.5D Take 50 [...] mg in the evening. gabapentin 2021-0 Yes [id number] 600mg Take 1 [facility] 600 mg 8-08 tablet by [facility] of tablet 00:00: mouth in [place] 00 the Medical morning Branch and 1 tablet at noon and 1 tablet in the evening. gabapentin 2021-0 Yes [id number] 600mg Take 1 [facility] 600 mg 8-08 tablet by [facility] of tablet 00:00: mouth in [place] 00 the Medical morning Branch and 1 tablet at noon and 1 tablet in the evening. gabapentin 2021-0 2021- No [id number] 600mg Take 1 [facility] 600 mg 8-08 12-09 tablet by ity of tablet 00:00: 00:00 mouth in [place] 00 :00 the Medical morning Branch and 1 tablet at noon and 1 tablet in the evening. gabapentin 2021-0 2021- No [id number] 600mg Take 1 [facility] 600 mg 8-08 12-09 tablet by [facility] of tablet 00:00: 00:00 mouth in [place] 00 :00 the Medical morning Branch [...] Branch DAILY FOR 27 DAYS NEEDED methocarbam 2021-2021- No TAKE 1 [facility] vers [...] DAILY FOR Branch 29 DAYS ibuprofen 2021-0 2021- No 600mg Take 1 [...] Pain for up to 10 days. ibuprofen 2021- No 600mg Take [address] [facility] (ADVIL,MOTR 5-13 05-14 [facility] [place] 600 MG 00:00: 00:00 (600 mg Med ical tablet 00 :00 total) by Center mouth every 6 (six) hours as needed for Pain for up to 10 days. ibuprofen 2021- No 600mg Take [address] [facility] (ADVIL,MOTR 5-13 05-14 [facility] [place]) 600 MG 00:00: 00:00 (600 mg Med ical tablet 00 :00 total) by Center mouth every 6 (six) hours as needed for Pain for up to 10 days. ibuprofen 2021- No 600mg Take [address] [facility] [...] Pain for up to 10 days. metaxalone 2-0 Yes 800mg Take 800 [facility] (Skelaxin) 3-28 mg by Health 800 MG 00:00: mouth tablet 00 every 8 (eight) hours if needed. metaxalone 2-0 Yes 800mg Take 800 [facility] (Skelaxin) 3-28 mg by Health 800 MG 00:00: mouth tablet 00 every 8 (eight) hours if needed. metaxalone 2022-0 Yes 800mg Take 800 [facility] (Skelaxin) 3-28 mg by Health 800 MG 00:00: mouth tablet 00 every 8 (eight) hours if needed. metaxalone 2-0 Yes 800mg Take 800 [facility] (Skelaxin) 3-28 mg by Health 800 MG 00:00: mouth tablet 00 every 8 (eight) hours if needed. metaxalone 2-0 Yes 800mg Take 800 [facility] (Skelaxin) 3-28 mg by Health 800 MG 00:00: mouth tablet 00 every 8 (eight) hours if needed. metaxalone 2-0 Yes 800mg Take 800 [facility] (Skelaxin) 3-28 mg by Health 800 MG 00:00: mouth tablet 00 every 8 (eight) hours if needed. metaxalone 2-0 Yes 800mg Take 800 [facility] (Skelaxin) 3-28 mg by Health 800 MG 00:00: mouth tablet 00 every 8 (eight) hours if needed. metaxalone 2-0 Yes 800mg Take 800 [facility] (Skelaxin) 3-28 mg by Health 800 MG 00:00: mouth tablet 00 every 8 (eight) hours if needed. omeprazole 2021-0 Yes [id number] 20mg Take 1 [facility] 20 mg 1-11 capsule by ity of capsule 00:00: mouth [place] 00 daily. Medical Branch liothyronin 2021-0 Yes [id number] 5ug Take 1 [facility] e 5 mcg 1-11 tablet by ity of tablet 00:00: mouth 2 00 (two) Medical times Branch daily. metoprolol 2021-0 Yes [id number] 100mg Take 1 [facility] succinate 1-11 tablet by ity o f XL 100 mg 00:00: mouth [place] 24 hr 00 daily. Medical tablet Branch felodipine 0 Yes [id number] 5mg Take 1 [facility] 5 mg 24 hr 1-11 tablet by ity of tablet 00:00: mouth at [place] 00 bedtime. Medical Branch rosuvastati 2021-0 Yes [id number] 20mg Take 1 [facility] n 20 mg 1-11 tablet by ity of tablet 00:00: mouth at [place] 00 bedtime. Medical Branch omeprazole 2021-0 Yes [id number] 20mg Take 1 [facility] 20 mg 1-11 capsule by ity of capsule 00:00: mouth [place] 00 daily. Medical Branch liothyronin 0 Yes [id number] 5ug Take 1 [facility] e 5 mcg 1-11 tablet by ity of tablet 00:00: mouth 2 [place] (two) Medical times Branch daily. metoprolol 0 Yes [id number] 100mg Take 1 [facility] succinate 1-11 tablet by ity o f XL 100 mg 00:00: mouth [place] 24 hr 00 daily. Medical tablet Branch felodipine 0 Yes [id number] 5mg Take 1 [facility] 5 mg 24 hr 1-11 tablet by ity of tablet 00:00: mouth at [place] 00 bedtime. Medical Branch rosuvastati 0 Yes [id number] 20mg Take 1 [facility] n 20 mg 1-11 tablet by ity of tablet 00:00: mouth at [place] 00 bedtime. Medical Branch omeprazole 2021-0 Yes [id number] 20mg Take 1 [facility] 20 mg 1-11 capsule by ity of capsule 00:00: mouth [place] 00 daily. Medical Branch liothyronin 0 Yes [id number] 5ug Take 1 [facility] e 5 mcg 1-11 tablet by ity of tablet 00:00: mouth 2 [place] (two) Medical times Branch daily. metoprolol 2021-0 Yes [id number] 100mg Take 1 [facility] succinate 1-11 tablet by ity o f XL 100 mg 00:00: mouth [place] 24 hr 00 daily. Medical tablet Branch felodipine 2021-0 Yes [id number] 5mg Take 1 [facility] 5 mg 24 hr 1-11 tablet by ity of tablet 00:00: mouth at [place] 00 bedtime. Medical Branch rosuvastati 0 Yes [id number] 20mg Take 1 [facility] n 20 mg 1-11 tablet by ity of tablet 00:00: mouth at [place] 00 bedtime. Medical Branch omeprazole 0 Yes [id number] 20mg Take 1 [facility] 20 mg 1-11 capsule by ity of capsule 00:00: mouth [place] 00 daily. Medical Branch liothyronin 0 Yes [id number] 5ug Take 1 [facility] e 5 mcg 1-11 tablet by ity of tablet 00:00: mouth 2 [place] (two) Medical times Branch daily. metoprolol 0 Yes [id number] 100mg Take 1 [facility] succinate 1-11 tablet by ity o f XL 100 mg 00:00: mouth [place] 24 hr 00 daily. Medical tablet Branch felodipine Yes [id number] 5mg Take 1 [facility] 5 mg 24 hr 1-11 tablet by ity of tablet 00:00: mouth at [place] 00 bedtime. Medical Branch rosuvastati Yes [id number] 20mg Take 1 [facility] n 20 mg 1-11 tablet by ity of tablet 00:00: mouth at [place] 00 bedtime. Medical Branch omeprazole Yes [id number] 20mg Take 1 [facility] 20 mg 1-11 capsule by ity of capsule 00:00: mouth [place] 00 daily. Medical Branch liothyronin Yes [id number] 5ug Take 1 [facility] e 5 mcg 1-11 tablet by ity of tablet 00:00: mouth 2 [place] (two) Medical times Branch daily. metoprolol 0 Yes [id number] 100mg Take 1 [facility] succinate 1-11 tablet by ity o f XL 100 mg 00:00: mouth [place] 24 hr 00 daily. Medical tablet Branch rosuvastati Yes [id number] 20mg Take 1 [facility] n 20 mg 1-11 tablet by ity of tablet 00:00: mouth at [place] 00 bedtime. Medical Branch liothyronin 0 Yes 5ug [...] 00 100 MG 24 hr tablet rosuvastati 0 Yes 20mg QD Take 20 mg [facility] n (Crestor) 1-11 by mouth 1 He alth 20 MG 00:00: (one) time tablet 00 each day. liothyronin 0 Yes 5ug Take 5 mcg [facility] e (Cytomel) 1-11 by mouth. [facility]a lth 5 MCG 00:00: tablet 00 metoprolol 0 Yes 100mg Take 100 [facility] succinate 1-11 mg by Health XL 00:00: mouth. (Toprol-XL) 00 100 MG 24 hr tablet rosuvastati 0 Yes 20mg QD Take 20 mg [facility] n (Crestor) 1-11 by mouth 1 He alth 20 MG 00:00: (one) time tablet 00 each day. liothyronin 0 Yes 5ug Take 5 mcg [facility] e (Cytomel) 1-11 by mouth. Hea lth 5 MCG 00:00: tablet 00 metoprolol 2021-0 Yes 100mg Take 100 [facility] succinate 1-11 mg by Health XL 00:00: mouth. (Toprol-XL) 00 100 MG 24 hr tablet rosuvastati 0 Yes 20mg QD Take 20 mg [facility] n (Crestor) 1-11 by mouth 1 He alth 20 MG 00:00: (one) time tablet 00 each day. felodipine 2021- No [id number] 5mg Take 1 [facility] 5 mg 24 hr 1-11 12-15 tablet by ity of tablet 00:00: [...] morning and 750 mg before bedtime. buPROPion 2020-0 Yes [facility] XL 300 mg 5-21 ity of 24 hr 00:00: [place] tablet 00 [facility] buPROPion 2020-0 Yes [facility] XL 300 mg 5-21 ity of 24 hr 00:00: [place] tablet 00 [facility] buPROPion 2020-0 Yes [facility] XL 300 mg 5-21 ity of 24 hr 00:00: [place] tablet 00 [facility] buPROPion 2020-0 Yes [facility] XL 300 mg 5-21 ity of 24 hr 00:00: [place] tablet 00 [facility] buPROPion 2020-0 Yes [facility] XL 300 mg 5-21 ity of 24 hr 00:00: [place] tablet [facility] escitalopra 2020-0 Yes 20mg Take 20 mg [facility] m oxalate 3-27 by mouth ity of 20 mg 00:00: daily. [place] tablet [facility] escitalopra 2019-0 Yes 20mg Take 20 mg [facility] m oxalate 3-27 by mouth ity of 20 mg 00:00: daily. [place] tablet [facility] escitalopra 2019-0 Yes 20mg Take 20 mg [facility] m oxalate 3-27 by mouth ity of 20 mg 00:00: daily. [place] tablet 00 [facility] escitalopra 2019-0 Yes 20mg Take 20 mg [facility] m oxalate 3-27 by mouth ity of 20 mg 00:00: daily. [place] tablet 00 [facility] escitalopra 0 Yes 20mg Take 20 mg [facility] m oxalate 3-27 by mouth ity of 20 mg 00:00: daily. [address] OLANZapine 2018-0 Yes 15mg QD Take [address] (ZYPREXA) 6-28 by mouth [facility] 15 MG 13:36: nightly. Medical tablet [address] [place] [address] methylpheni 2018-0 Yes 54mg QD Take [address] [facility] date HCl 6-28 by mouth [facility] (CONCERTA) 13:36: every Medica l 54 MG CR 16 morning. [place] tablet liothyronin 2018-0 Yes 5ug Q.5D Take [address] [facility] e (CYTOMEL) 6-28 by mouth 2 [place] [facility] 5 MCG 13:36: (two) Medical tablet 16 times Center daily. omeprazole 2018-0 Yes 40mg QD Take [address] (PRILOSEC) 6-28 by mouth [facility] 40 MG 13:36: every Medical capsule 16 morning. [place] metoprolol 2018-0 Yes 100mg QD Take [address] (TOPROL-XL) 6-28 mg by [facility] 100 MG 24 13:36: mouth Medical hr tablet 16 daily. [place] vortioxetin 2018-0 Yes 10mg QD Take [address] [facility] e 10 mg Tab 6-28 by mouth [facility] 13:36: daily. Medical [address] [place] [address] OLANZapine 2018-0 Yes 15mg QD Take [address] (ZYPREXA) 6-28 by mouth [facility] 15 MG 13:36: nightly. Medical tablet 16 [place] methylpheni 2018-0 Yes 54mg QD Take [address] [facility] date HCl 6-28 by mouth [facility] (CONCERTA) 13:36: every Medica l 54 MG CR 16 morning. [place] tablet liothyronin 2018-0 Yes 5ug Q.5D Take [address] [facility] e (CYTOMEL) 6-28 by mouth 2 [place] [facility] 5 MCG 13:36: (two) Medical tablet 16 times Center daily. omeprazole 2018-0 Yes 40mg QD Take [address] (PRILOSEC) 6-28 by mouth [facility] 40 MG 13:36: every Medical capsule 16 morning. [place] metoprolol 2018-0 Yes 100mg QD Take [address] (TOPROL-XL) 6-28 mg by [facility] 100 MG 24 13:36: mouth Medical hr tablet 16 daily. [place] vortioxetin 2018-0 Yes 10mg QD Take [address] [facility] 10 mg Tab 6-28 by mouth [facility] 13:36: daily. Medical 16 [place] OLANZapine 2018-0 Yes 15mg QD Take [address] (ZYPREXA) 6-28 by mouth [facility] 15 MG 13:36: nightly. Medical tablet 16 [place] methylpheni 2018-0 Yes 54mg QD Take [address] [facility] date HCl 6-28 by mouth [facility] (CONCERTA) 13:36: every Medica l 54 MG CR 16 morning. [place] tablet liothyronin 2018-0 Yes 5ug Q.5D Take [address] [facility] e (CYTOMEL) 6-28 by mouth 2 [place] [facility] 5 MCG 13:36: (two) Medical tablet 16 times Center daily. omeprazole 2018-0 Yes 40mg QD Take [address] (PRILOSEC) 6-28 by mouth [facility] 40 MG 13:36: every Medical capsule 16 morning. [place] metoprolol 2018-0 Yes 100mg QD Take [address] (TOPROL-XL) 6-28 mg by [facility] 100 MG 24 13:36: mouth Medical hr tablet 16 daily. [place] vortioxetin 2018-0 Yes 10mg QD Take [address] [facility] 10 mg Tab 6-28 by mouth [facility] 13:36: daily. Medical 16 [place] OLANZapine 2018-0 Yes 15mg QD Take [address] (ZYPREXA) 6-28 by mouth [facility] 15 MG 13:36: nightly. Medical tablet 16 [place] methylpheni 2018-0 Yes 54mg QD Take [address] [facility] date HCl 6-28 by mouth [facility] (CONCERTA) 13:36: every Medica l 54 MG CR 16 morning. [place] tablet liothyronin 2018-0 Yes 5ug Q.5D Take [address] [facility] e (CYTOMEL) 6-28 by mouth 2 [place] [facility] 5 MCG 13:36: (two) Medical tablet 16 times Center daily. omeprazole 2018-0 Yes 40mg QD Take [address] (PRILOSEC) 6-28 by mouth [facility] 40 MG 13:36: every Medical capsule 16 morning. [place] metoprolol 2018-0 Yes 100mg QD Take [address] (TOPROL-XL) 6-28 mg by [facility] 100 MG 24 13:36: mouth Medical hr tablet 16 daily. [place] vortioxetin 2018-0 Yes 10mg QD Take [address] [facility] 10 mg Tab 6-28 by mouth [facility] s 13:36: daily. Medical 16 [place] OLANZapine 2018-0 Yes 15mg QD Take [address] (ZYPREXA) 6-28 by mouth [facility] 15 MG 13:36: nightly. Medical tablet 16 [place] methylpheni 2018-0 Yes 54mg QD Take [address] [facility] date HCl 6-28 by mouth [facility] (CONCERTA) 13:36: every Medica l 54 MG CR 16 morning. [place] tablet liothyronin 2018-0 Yes 5ug Q.5D Take [address] [facility] e (CYTOMEL) 6-28 by mouth 2 [place] 5 MCG 13:36: (two) Medical tablet 16 times Center daily. omeprazole 2018-0 Yes 40mg QD Take [address] (PRILOSEC) 6-28 by mouth [facility] 40 MG 13:36: every Medical capsule 16 morning. [place] metoprolol 2018-0 Yes 100mg QD Take [address] (TOPROL-XL) 6-28 mg by [facility] 100 MG 24 13:36: mouth Medical hr tablet 16 daily. [place] vortioxetin 2018-0 Yes 10mg QD Take [address] [facility] e 10 mg Tab 6-28 by mouth [facility] s 13:36: daily. Medical 16 [place] OLANZapine 2018-0 Yes 15mg QD Take [address] (ZYPREXA) 6-28 by mouth [facility] 15 MG 13:36: nightly. Medical tablet 16 [place] methylpheni 2018-0 Yes 54mg QD Take [address] [facility] date HCl 6-28 by mouth [facility] (CONCERTA) 13:36: every Medica l 54 MG CR 16 morning. [place] tablet liothyronin 2018-0 Yes 5ug Q.5D Take [address] [facility] e (CYTOMEL) 6-28 by mouth 2 [place] 5 MCG 13:36: (two) Medical tablet 16 times Center daily. omeprazole 2018-0 Yes 40mg QD Take [address] (PRILOSEC) 6-28 by mouth [facility] 40 MG 13:36: every Medical capsule 16 morning. [place] metoprolol 2018-0 Yes 100mg QD Take [address] (TOPROL-XL) 6-28 mg by [facility] 100 MG 24 13:36: mouth Medical hr tablet 16 daily. [place] vortioxetin 2018-0 Yes 10mg QD Take [address] [facility] 10 mg Tab 6-28 by mouth [facility] 13:36: daily. Medical 16 [place] OLANZapine 2018-0 Yes 15mg QD Take [address] (ZYPREXA) 6-28 by mouth [facility] 15 MG 13:36: nightly. Medical tablet 16 [place] methylpheni 2018-0 Yes 54mg QD Take [address] [facility] date HCl 6-28 by mouth [facility] (CONCERTA) 13:36: every Medica l 54 MG CR 16 morning. [place] tablet liothyronin 2018-0 Yes 5ug Q.5D Take [address] [facility] (CYTOMEL) 6-28 by mouth 2 [place] 5 MCG 13:36: (two) Medical tablet 16 times Center daily. omeprazole 2018-0 Yes 40mg QD Take [address] (PRILOSEC) 6-28 by mouth [facility] 40 MG 13:36: every Medical capsule 16 morning. [place] metoprolol 2018-0 Yes 100mg QD Take [address] (TOPROL-XL) 6-28 mg by [facility] 100 MG 24 13:36: mouth Medical hr tablet 16 daily. [place] vortioxetin 2018-0 Yes 10mg QD Take [address] [facility] 10 mg Tab 6-28 by mouth [facility] 13:36: daily. Medical 16 [place] OLANZapine 2018-0 Yes 15mg QD Take [address] (ZYPREXA) 6-28 by mouth [facility] 15 MG 13:36: nightly. Medical tablet 16 [place] methylpheni 2018-0 Yes 54mg QD Take [address] [facility] [address] date HCl 6-28 by mouth [facility] (CONCERTA) 13:36: every Medica l 54 MG CR 16 morning. [place] tablet liothyronin 2018-0 Yes 5ug Q.5D Take [address] [facility] e (CYTOMEL) 6-28 by mouth 2 [place] 5 MCG 13:36: (two) Medical tablet 16 times Center daily. omeprazole 2018-0 Yes 40mg QD Take [address] (PRILOSEC) 6-28 by mouth [facility] 40 MG 13:36: every Medical capsule 16 morning. [place] metoprolol 2018-0 Yes 100mg QD Take [address] (TOPROL-XL) 6-28 mg by [facility] 100 MG 24 13:36: mouth Medical hr tablet 16 daily. [place] vortioxetin 2018-0 Yes 10mg QD Take [address] [facility] 10 mg Tab 6-28 by mouth [facility] 13:36: daily. Medical 16 [place] OLANZapine 2018-0 Yes 15mg QD Take [address] (ZYPREXA) 6-28 by mouth [facility] 15 MG 13:36: nightly. Medical tablet 16 [place] methylpheni 2018-0 Yes 54mg QD Take [address] [address] date HCl 6-28 by mouth [facility] (CONCERTA) 13:36: every Medica l 54 MG CR 16 morning. [place] tablet liothyronin 2018-0 Yes 5ug Q.5D Take [address] [facility] (CYTOMEL) 6-28 by mouth 2 [place] 5 MCG 13:36: (two) Medical tablet 16 times Center daily. omeprazole 2018-0 Yes 40mg QD Take [address] (PRILOSEC) 6-28 by mouth [facility] 40 MG 13:36: every Medical capsule 16 morning. [place] omeprazole 2018-0 Yes 40mg QD Take [address] (PRILOSEC) 6-28 by mouth [facility] 40 MG 13:36: every Medical capsule 16 morning. [place] metoprolol 2018-0 Yes 100mg QD Take [address] (TOPROL-XL) 6-28 mg by [facility] 100 MG 24 13:36: mouth Medical hr tablet 16 daily. [place] vortioxetin 2018-0 Yes 10mg QD Take [address] [facility] 10 mg Tab 6-28 by mouth [facility] 13:36: daily. Medical 16 [place] OLANZapine 2018-0 Yes 15mg QD Take [address] (ZYPREXA) 6-28 by mouth [facility] 15 MG 13:36: nightly. Medical tablet 16 [place] metoprolol 2018-0 Yes 100mg QD Take [address] (TOPROL-XL) 6-28 mg by [facility] 100 MG 24 13:36: mouth Medical hr tablet 16 daily. [place] methylpheni 2018-0 Yes 54mg QD Take [address] [facility] [address] date HCl 6-28 by mouth [facility] (CONCERTA) 13:36: every Medica l 54 MG CR 16 morning. [place] tablet liothyronin 2018-0 Yes 5ug Q.5D Take [address] [facility] (CYTOMEL) 6-28 by mouth 2 [place] 5 MCG 13:36: (two) Medical tablet 16 times Center daily. vortioxetin 2018-0 Yes 10mg QD Take [address] [facility] 10 mg Tab 6-28 by mouth [facility] 13:36: daily. [address] OLANZapine 2018-0 Yes 15mg QD Take [address] (ZYPREXA) 6-28 by mouth [facility] 15 MG 13:36: nightly. Medical tablet 16 [place] omeprazole 2018-0 Yes 40mg QD Take [address] (PRILOSEC) 6-28 by mouth [facility] 40 MG 13:36: every Medical capsule 16 morning. [place] metoprolol 2018-0 Yes 100mg QD Take [address] (TOPROL-XL) 6-28 mg by [facility] 100 MG 24 13:36: mouth Medical hr tablet 16 daily. [place] vortioxetin 2018-0 Yes 10mg QD Take [address] [facility] 10 mg Tab 6-28 by mouth [facility] 13:36: daily. [address] OLANZapine 2018-0 Yes 15mg QD Take [address] (ZYPREXA) 6-28 by mouth [facility] 15 MG 13:36: nightly. Medical tablet 16 [place] methylpheni 2018-0 Yes 54mg QD Take [address] [facility] [address] date HCl 6-28 by mouth [facility] (CONCERTA) 13:36: every Medica l 54 MG CR 16 morning. [place] tablet liothyronin 2018-0 Yes 5ug Q.5D Take [address] [facility] (CYTOMEL) 6-28 by mouth 2 [place] 5 MCG 13:36: (two) Medical tablet 16 times Center daily. methylpheni 2018-0 Yes 54mg QD Take [address] [facility] date HCl 6-28 by mouth [facility] (CONCERTA) 13:36: every Medica l 54 MG CR 16 morning. [place] tablet liothyronin 2018-0 Yes 5ug Q.5D Take [address] [facility] (CYTOMEL) 6-28 by mouth 2 [place] 5 MCG 13:36: (two) Medical tablet 16 times Center daily. omeprazole 2018-0 Yes 40mg QD Take [address] (PRILOSEC) 6-28 by mouth [facility] 40 MG 13:36: every Medical capsule 16 morning. [place] metoprolol 2018-0 Yes 100mg QD Take [address] (TOPROL-XL) 6-28 mg by [facility] 100 MG 24 13:36: mouth Medical hr tablet 16 daily. [place] vortioxetin 2018-0 Yes 10mg QD Take [address] [facility] 10 mg Tab 6-28 by mouth [facility] 13:36: daily. Medical 16 [place] OLANZapine 2018-0 Yes 15mg QD Take [address] (ZYPREXA) 6-28 by mouth [facility] 15 MG 13:36: nightly. Medical tablet 16 [place] methylpheni 2018-0 Yes 54mg QD Take [address] [facility] [address] date HCl 6-28 by mouth [facility] (CONCERTA) 13:36: every Medica l 54 MG CR 16 morning. [place] tablet liothyronin 2018-0 Yes 5ug Q.5D Take [address] [facility] (CYTOMEL) 6-28 by mouth 2 [place] 5 MCG 13:36: (two) Medical tablet 16 times Center daily. omeprazole 2018-0 Yes 40mg QD Take [address] (PRILOSEC) 6-28 by mouth [facility] 40 MG 13:36: every Medical capsule 16 morning. [place] metoprolol 2018-0 Yes 100mg QD Take [address] (TOPROL-XL) 6-28 mg by [facility] 100 MG 24 13:36: mouth Medical hr tablet 16 daily. [place] vortioxetin 2018-0 Yes 10mg QD Take [address] [facility] 10 mg Tab 6-28 by mouth [facility] 13:36: daily. Medical 16 [place] OLANZapine 2018-0 Yes 15mg QD Take [address] (ZYPREXA) 6-28 by mouth [facility] 15 MG 13:36: nightly. Medical tablet 16 [place] methylpheni 2018-0 Yes 54mg QD Take [address] [facility] [address] date HCl 6-28 by mouth [facility] (CONCERTA) 13:36: every Medica l 54 MG CR 16 morning. [place] tablet liothyronin 2018-0 Yes 5ug Q.5D Take [address] [facility] (CYTOMEL) 6-28 by mouth 2 [place] 5 MCG 13:36: (two) Medical tablet 16 times Center daily. omeprazole 2018-0 Yes 40mg QD Take [address] (PRILOSEC) 6-28 by mouth [facility] 40 MG 13:36: every Medical capsule 16 morning. [place] metoprolol 2018-0 Yes 100mg QD Take [address] (TOPROL-XL) 6-28 mg by [facility] 100 MG 24 13:36: mouth Medical hr tablet 16 daily. [place] vortioxetin 2018-0 Yes 10mg QD Take [address] [facility] 10 mg Tab 6-28 by mouth [facility] 13:36: daily. Medical 16 [place] OLANZapine 2018-0 Yes 15mg QD Take [address] (ZYPREXA) 6-28 by mouth [facility] 15 MG 13:36: nightly. Medical tablet 16 [place] methylpheni 2018-0 Yes 54mg QD Take [address] [facility] [address] date HCl 6-28 by mouth [facility] (CONCERTA) 13:36: every Medica l 54 MG CR 16 morning. [place] tablet liothyronin 2018-0 Yes 5ug Q.5D Take [address] [facility] (CYTOMEL) 6-28 by mouth 2 [place] 5 MCG 13:36: (two) Medical tablet 16 times Center daily. omeprazole 2018-0 Yes 40mg QD Take [address] (PRILOSEC) 6-28 by mouth [facility] 40 MG 13:36: every Medical capsule 16 morning. [place] metoprolol 2018-0 Yes 100mg QD Take [address] (TOPROL-XL) 6-28 mg by [facility] 100 MG 24 13:36: mouth Medical hr tablet 16 daily. [place] vortioxetin 2018-0 Yes 10mg QD Take [address] [facility] 10 mg Tab 6-28 by mouth [facility] 13:36: daily. Medical 16 [place] OLANZapine 2018-0 Yes 15mg QD Take [address] (ZYPREXA) 6-28 by mouth [facility] 15 MG 13:36: nightly. Medical tablet 16 [place] methylpheni 2018-0 Yes 54mg QD Take [address] [facility] [address] date HCl 6-28 by mouth [facility] (CONCERTA) 13:36: every Medica l 54 MG CR 16 morning. [place] tablet liothyronin 2018-0 Yes 5ug Q.5D Take [address] [facility] (CYTOMEL) 6-28 by mouth 2 [place] 5 MCG 13:36: (two) Medical tablet 16 times Center daily. omeprazole 2018-0 Yes 40mg QD Take [address] (PRILOSEC) 6-28 by mouth [facility] 40 MG 13:36: every Medical capsule 16 morning. [place] metoprolol 2018-0 Yes 100mg QD Take [address] (TOPROL-XL) 6-28 mg by [facility] 100 MG 24 13:36: mouth Medical hr tablet 16 daily. [place] vortioxetin 2018-0 Yes 10mg QD Take [address] [facility] 10 mg Tab 6-28 by mouth [facility] 13:36: daily. Medical 16 [place] OLANZapine 2018-0 Yes 15mg QD Take [address] (ZYPREXA) 6-28 by mouth [facility] 15 MG 13:36: nightly. Medical tablet 16 [place] methylpheni 2018-0 Yes 54mg QD Take [address] date HCl 6-28 by mouth [facility] (CONCERTA) 13:36: every Medica l 54 MG CR 16 morning. [place] tablet liothyronin 2018-0 Yes 5ug Q.5D Take [address] [facility] (CYTOMEL) 6-28 by mouth 2 [place] 5 MCG 13:36: (two) Medical tablet 16 times Center daily. omeprazole 2018-0 Yes 40mg QD Take [address] (PRILOSEC) 6-28 by mouth [facility] 40 MG 13:36: every Medical capsule 16 morning. [place] metoprolol 2018-0 Yes 100mg QD Take [address] (TOPROL-XL) 6-28 mg by [facility] 100 MG 24 13:36: mouth Medical hr tablet 16 daily. [place] vortioxetin 2018-0 Yes 10mg QD Take [address] [facility] 10 mg Tab 6-28 by mouth [facility] 13:36: daily. Medical 16 [place] OLANZapine 2018-0 Yes 15mg QD Take [address] (ZYPREXA) 6-28 by mouth [facility] 15 MG 13:36: nightly. Medical tablet 16 [place] methylpheni 2018-0 Yes 54mg QD Take 54 [...] MG 13:36: every Medical capsule 16 morning. Center metoprolol 2018-0 Yes 100mg QD Take [address] (TOPROL-XL) 6-28 mg by [facility] 100 MG 24 13:36: mouth Medical hr tablet 16 daily. Center vortioxetin 2017-0 Yes 10mg QD Take [address] [facility] 10 mg Tab 6-28 by mouth [facility] 13:36: daily. Medical [address] [place] [address] metoprolol 2017-0 Yes 100mg QD Take 100 [facility] [...] tablet 53 times a l day. liothyronin Yes 5ug Q.5D Take 5 mcg [facility]i e (CYTOMEL) 2-[address] 5 MCG 08:25: (two) [facility]osp[facility] tablet 53 times a l day. metoprolol Yes 100mg QD Take 100 [facility] succinate 2-[address] XL 08:25: mouth [facility] (TOPROL-XL) 53 daily. l 100 mg 24 hr tablet traZODone Yes 200mg QD Take 200 [facility] (DESYREL) 2-[address] 100 MG 08:25: mouth [facility] tablet 53 nightly. l Immunizations Ordered Filled Immunization Date Status Comments [facility] Immunization Name Name influenza virus 2022-07-16 Completed [facility] vaccine, 16:15:00 inactivated Influenza Virus 2022-07-12 Completed [facility] Vaccine Quad IM, 00:00:00 [facility] dical Preserv and ABX Branch Free 6 MO-64 YRS Influenza Virus 2022-07-12 Completed [facility] of Vaccine Quad IM, 00:00:00 [facility] dical Preserv and ABX Branch Free 6 MO-64 YRS Influenza Virus 2022-07-12 Completed [facility]it y of Vaccine Quad IM, 00:00:00 [facility] dical Preserv and ABX Branch Free 6 MO-64 YRS TDAP 2022-05-25 Completed University of 00:00:00 [facility] Pneumococcal 20 2022-05-25 Completed Universit y of Conjugate, PCV20 00:00:00 [facility] dical (Prevnar 20) Branch [facility] 2022-05-25 Completed University of 00:00:00 [facility] Pneumococcal 20 2022-05-25 Completed Universit y of Conjugate, PCV20 00:00:00 [facility] dical (Prevnar 20) Branch [facility] 2022-05-25 Completed University of 00:00:00 [facility] Pneumococcal 20 2022-05-25 Completed Universit y of Conjugate, PCV20 00:00:00 [facility] dical (Prevnar 20) Branch [facility] 2022-05-25 Completed University of 00:00:00 [facility] Pneumococcal 20 2022-05-25 Completed Universit y of Conjugate, PCV20 00:00:00 [facility] dical (Prevnar 20) Branch [facility] 2022-05-25 Completed University of 00:00:00 [place] [facility] Pneumococcal 20 2022-05-25 Completed [facility] Conjugate, PCV20 00:00:00 [place] [facility] (Prevnar 20) Branch SARS-COV-2 COVID-19 2021-10-21 [...] [facility] of Vaccine Quad IM, 00:00:00 [facility] dical Preserv and ABX Branch Free 6 [...] [facility]it y of Vaccine Quad IM, 00:00:00 [place] [facility] dical Preserv and ABX Branch Free 6 MO-64 YRS SARS-COV-2 COVID-19 2021-01-15 Completed Unive rsity of MODERNA 12+ YRS 00:00:00 [place] [facility] VACCINE Branch SARS-COV-2 COVID-19 2021-01-15 Completed Unive rsity of MODERNA 12+ YRS 00:00:00 [place] [facility] VACCINE Branch SARS-COV-2 COVID-19 2021-01-15 [...] YRS 00:00:00 [place] [facility] VACCINE Branch Vital Signs Vital Name Observation Time Observation Value Comments Source Body height 2022-09-24 19:12:00 162[facility]6 [facility] Body weight 2022-09-24 19:12:00 104[facility]327 [facility] BMI 2022-09-24 19:12:00 39.48 kg/m2 [facility] Systolic blood 2022-09-18 16:28:00 114 mm[Hg] Univer sity of pressure [facility] Diastolic blood 2022-09-18 16:28:00 72 mm[Hg] Unive rsity of pressure [facility] Heart rate 2022-09-18 16:28:00 63 /min [facility] Body temperature 2022-09-18 16:28:00 37.06 Elvira [facility] of [facility] Body height 2022-09-18 16:28:00 162.6 cm [facility] Body weight 2022-09-18 16:28:00 96.163 kg [facility] BMI 2022-09-18 16:28:00 36.39 kg/m2 [facility] Oxygen saturation in 2022-09-18 16:28:00 96 /min [facility] Arterial blood by [facility] Pulse oximetry [place] Body height 2022-09-17 17:51:00 162.6 cm [facility] [...] 99.791 kg Heart Rate 2022-07-17 13:07:11 [facility] Respitory Rate 2022-07-17 13:07:11 [facility] Systolic (mm Hg) 2022-07-17 13:06:54 [facility] [place] Diastolic (mm Hg) 2022-07-17 13:06:54 [facility] Heart Rate 2022-07-17 13:06:54 [facility] Temperature Oral (F) 2022-07-17 13:06:50 99 F [facility] Heart Rate 2022-07-17 10:15:30 [facility] Respitory Rate 2022-07-17 10:15:30 [facility] Systolic (mm Hg) 2022-07-17 10:15:21 Stefan [facility] Diastolic (mm Hg) 2022-07-17 10:15:21 [facility] Temperature Oral (F) 2022-07-17 10:14:55 98.6 F [facility] Respitory Rate 2022-07-17 06:39:06 [facility] Systolic (mm Hg) 2022-07-17 06:38:47 Stefan [facility] Diastolic (mm Hg) 2022-07-17 06:38:47 [facility] Temperature Oral (F) 2022-07-17 06:38:29 100.1 F [facility] Height 2022-07-14 20:55:00 165.1 cm [facility] Weight 2022-07-14 20:55:00 [facility] BMI Calculated 2022-07-14 20:55:00 [facility] Height 2022-07-02 12:57:00 162.56 cm [facility] Weight 2022-07-02 12:57:00 [facility] BMI Calculated 2022-07-02 12:57:00 [facility] Systolic blood 2022-06-07 03:01:00 120 mm[Hg] [facility] pressure Diastolic blood 2022-06-07 03:01:00 62 mm[Hg] [facility] pressure Heart rate 2022-06-07 03:01:00 65 /min [facility] Respiratory rate 2022-06-07 03:01:00 18 /min [facility] Oxygen saturation in 2022-06-07 03:01:00 97 /min [facility] Arterial blood by Pulse oximetry Body height 2022-06-06 23:39:[address] [facility] Body weight 2022-06-06 23:39:[address] [facility] BMI 2022-06-06 23:39:00 36.61 kg/m2 [facility] Body temperature 2022-06-06 23:27:39 36.72 Elvira [facility] Diastolic blood 2022-02-21 01:00:00 80 mm[Hg] [facility] Heart rate 2022-02-21 01:00:00 90 /min [facility] Body temperature 2022-02-21 01:00:00 36.5 Elvira [facility] Respiratory rate 2022-02-21 01:00:00 18 /min [facility] Oxygen saturation in 2022-02-21 01:00:00 97 /min [facility] Arterial blood by Medical Ce [facility]ter Pulse oximetry Systolic blood 2022-02-21 01:00:00 151 mm[Hg] [facility] Body height 2022-02-20 19:22:[address] [facility] Body weight 2022-02-20 19:22:[address] [facility] BMI 2022-02-20 19:22:00 36.61 kg/m2 [facility] Procedures Procedure Date / Time Performing Clinician Source Performed CT PELVIS WO CONTRAST 2022-06-07 00:38:30 Elton Stringer [facility] MR LUMBAR SPINE WITHOUT 2022-02-20 21:52:00 Brian Morton [facility] CONTRAST Center Thyroidectomy [facility] EGD [facility] (esophagogastroduodenosc opy) gastric outlet reduction Colonoscopy [facility] LAMINECTOMY [facility] SUBTALAR FUSION [facility] Hysterectomy [facility] HERNIA REPAIR [facility] Plan of Care Planned Activity Planned Date Details Comments Source Future Scheduled 2022-09-28 Hepatitis C screening [facility] Test 01:56:16 (procedure) [code = [id number]] Future Scheduled 2022-09-28 BREAST CANCER [facility] Test 01:56:16 SCREENING [code = BREAST CANCER SCREENING] Future Scheduled 2022-09-28 COLONOSCOPY SCREENING [facility] Test 01:56:16 [code = COLONOSCOPY SCREENING] Future Scheduled 2022-09-28 SHINGLES VACCINES (1 [facility] Test 01:56:16 of 2) [code = SHINGLES VACCINES (1 of 2)] Future Scheduled 2022-09-28 COVID-19 VACCINE (4 - [facility] Test 01:56:16 Booster for Moderna series) [code = COVID-19 VACCINE (4 - Booster for Moderna series)] Future Scheduled 2022-09-28 INFLUENZA VACCINE [facility] Test 01:56:16 [code = INFLUENZA VACCINE] Future Scheduled 2022-09-24 Hepatitis C screening [facility] Test 13:04:41 (procedure) [code = [id number]] Future Scheduled 2022-09-24 BREAST CANCER [facility] Test 13:04:41 SCREENING [code = BREAST CANCER SCREENING] Future Scheduled 2022-09-24 COLONOSCOPY SCREENING [facility] Test 13:04:41 [code = COLONOSCOPY SCREENING] Future Scheduled 2022-09-24 SHINGLES VACCINES (1 [facility] Test 13:04:41 of 2) [code = SHINGLES VACCINES (1 of 2)] Future Scheduled 2022-09-24 COVID-19 VACCINE (4 - [facility] Test 13:04:41 Booster for Moderna series) [code = COVID-19 VACCINE (4 - Booster for Moderna series)] Future Scheduled 2022-09-24 INFLUENZA VACCINE [facility] Test 13:04:41 [code = INFLUENZA VACCINE] Future Scheduled 2022-09-17 HEPATITIS B VACCINES [facility] Test 11:46:18 (1 of 3 - 3-dose series) [code = HEPATITIS B VACCINES (1 of 3 - 3-dose series)] Future Scheduled 2022-09-17 Hepatitis C screening [facility] Test 11:46:18 (procedure) [code = [id number]] Future Scheduled 2022-09-17 Screening for [facility] Test 11:46:18 malignant neoplasm of cervix (procedure) [code = [id number]] Future Scheduled 2022-09-17 BREAST CANCER [facility] Test 11:46:18 SCREENING [code = BREAST CANCER SCREENING] Future Scheduled 2022-09-17 COLONOSCOPY SCREENING [facility] Test 11:46:18 [code = COLONOSCOPY SCREENING] Future Scheduled 2022-09-17 SHINGLES VACCINES (1 [facility] Test 11:46:18 of 2) [code = SHINGLES VACCINES (1 of 2)] Future Scheduled 2022-09-17 COVID-19 VACCINE (4 - [facility] Test 11:46:18 Booster for Moderna series) [code = COVID-19 VACCINE (4 - Booster for Moderna series)] Future Scheduled 2022-09-17 INFLUENZA VACCINE [facility] Test 11:46:18 [code = INFLUENZA VACCINE] Future Scheduled 2022-09-09 HEPATITIS B VACCINES [facility] Test 13:39:09 (1 of 3 - 3-dose series) [code = HEPATITIS B VACCINES (1 of 3 - 3-dose series)] Future Scheduled 2022-09-09 Hepatitis C screening [facility] Test 13:39:09 (procedure) [code = [id number]] Future Scheduled 2022-09-09 Screening for [facility] Test 13:39:09 malignant neoplasm of cervix (procedure) [code = 160551082] Future Scheduled 2022-09-09 BREAST CANCER [facility] Test 13:39:09 SCREENING [code = BREAST CANCER SCREENING] Future Scheduled 2022-09-09 COLONOSCOPY SCREENING [facility] Test 13:39:09 [code = COLONOSCOPY SCREENING] Future Scheduled 2022-09-09 SHINGLES VACCINES (1 [facility] Test 13:39:09 of 2) [code = SHINGLES VACCINES (1 of 2)] Future Scheduled 2022-09-09 COVID-19 VACCINE (4 - [facility] Test 13:39:09 Booster for Moderna series) [code = COVID-19 VACCINE (4 - Booster for Moderna series)] Future Scheduled 2022-09-09 INFLUENZA VACCINE Method [facility] Test 13:39:09 [code = INFLUENZA VACCINE] Future Scheduled 2022-08-26 HEPATITIS B VACCINES [facility] Test 10:11:29 (1 of 3 - 3-dose series) [code = HEPATITIS B VACCINES (1 of 3 - 3-dose series)] Future Scheduled 2022-08-26 Hepatitis C screening [facility] Test 10:11:29 (procedure) [code = [id number]] Future Scheduled 2022-08-26 Screening for [facility] Test 10:11:29 malignant neoplasm of cervix (procedure) [code = 751817018] Future Scheduled 2022-08-26 BREAST CANCER [facility] Test 10:11:29 SCREENING [code = BREAST CANCER SCREENING] Future Scheduled 2022-08-26 COLONOSCOPY SCREENING [facility] Test 10:11:29 [code = COLONOSCOPY SCREENING] Future Scheduled 2022-08-26 SHINGLES VACCINES (1 [facility] Test 10:11:29 of 2) [code = SHINGLES VACCINES (1 of 2)] Future Scheduled 2022-08-26 COVID-19 VACCINE (4 - [facility] Test 10:11:29 Booster for Moderna series) [code = COVID-19 VACCINE (4 - Booster for Moderna series)] Future Scheduled 2022-08-26 INFLUENZA VACCINE Method [facility] Test 10:11:29 [code = INFLUENZA VACCINE] Future Scheduled 2022-08-26 HEPATITIS B VACCINES [facility] Test 10:11:29 (1 of 3 - 3-dose series) [code = HEPATITIS B VACCINES (1 of 3 - 3-dose series)] Future Scheduled 2022-08-26 Hepatitis C screening [facility] Test 10:11:29 (procedure) [code = [id number]] Future Scheduled 2022-08-26 Screening for [facility] Test 10:11:29 malignant neoplasm of cervix (procedure) [code = 079245329] Future Scheduled 2022-08-26 BREAST CANCER [facility] Test 10:11:29 SCREENING [code = BREAST CANCER SCREENING] Future Scheduled 2022-08-26 COLONOSCOPY SCREENING [facility] Test 10:11:29 [code = COLONOSCOPY SCREENING] Future Scheduled 2022-08-26 SHINGLES VACCINES (1 [facility] Test 10:11:29 of 2) [code = SHINGLES VACCINES (1 of 2)] Future Scheduled 2022-08-26 COVID-19 VACCINE (4 - Me [facility] Test 10:11:29 Booster for Moderna series) [code = COVID-19 VACCINE (4 - Booster for Moderna series)] Future Scheduled 2022-08-26 INFLUENZA VACCINE Method [facility] Test 10:11:29 [code = INFLUENZA VACCINE] Future Scheduled 2022-08-26 HEPATITIS B VACCINES [facility] Test 10:11:29 (1 of 3 - 3-dose series) [code = HEPATITIS B VACCINES (1 of 3 - 3-dose series)] Future Scheduled 2022-08-26 Hepatitis C screening [facility] Test 10:11:29 (procedure) [code = [id number]] Future Scheduled 2022-08-26 Screening for [facility] Test 10:11:29 malignant neoplasm of cervix (procedure) [code = 151383036] Future Scheduled 2022-08-26 BREAST CANCER [facility] Test 10:11:29 SCREENING [code = BREAST CANCER SCREENING] Future Scheduled 2022-08-26 COLONOSCOPY SCREENING [facility] Test 10:11:29 [code = COLONOSCOPY SCREENING] Future Scheduled 2022-08-26 SHINGLES VACCINES (1 [facility] Test 10:11:29 of 2) [code = SHINGLES VACCINES (1 of 2)] Future Scheduled 2022-08-26 COVID-19 VACCINE (4 - Me [facility] Test 10:11:29 Booster for Moderna series) [code = COVID-19 VACCINE (4 - Booster for Moderna series)] Future Scheduled 2022-08-26 INFLUENZA VACCINE Method [facility] Test 10:11:29 [code = INFLUENZA VACCINE] Future Scheduled 2022-08-26 HEPATITIS B VACCINES [facility] Test 10:11:29 (1 of 3 - 3-dose series) [code = HEPATITIS B VACCINES (1 of 3 - 3-dose series)] Future Scheduled 2022-08-26 Hepatitis C screening [facility] Test 10:11:29 (procedure) [code = [id number]] Future Scheduled 2022-08-26 Screening for [facility] Test 10:11:29 malignant neoplasm of cervix (procedure) [code = 788095638] Future Scheduled 2022-08-26 BREAST CANCER [facility] Test 10:11:29 SCREENING [code = BREAST CANCER SCREENING] Future Scheduled 2022-08-26 COLONOSCOPY SCREENING [facility] Test 10:11:29 [code = COLONOSCOPY SCREENING] Future Scheduled 2022-08-26 SHINGLES VACCINES (1 [facility] Test 10:11:29 of 2) [code = SHINGLES VACCINES (1 of 2)] Future Scheduled 2022-08-26 COVID-19 VACCINE (4 - Me [facility] Test 10:11:29 Booster for Moderna series) [code = COVID-19 VACCINE (4 - Booster for Moderna series)] Future Scheduled 2022-08-26 INFLUENZA VACCINE [facility] Test 10:11:29 [code = INFLUENZA VACCINE] Future Scheduled 2022-08-26 HEPATITIS B VACCINES [facility] Test 10:11:29 (1 of 3 - 3-dose series) [code = HEPATITIS B VACCINES (1 of 3 - 3-dose series)] Future Scheduled 2022-08-26 Hepatitis C screening [facility] Test 10:11:29 (procedure) [code = [id number]] Future Scheduled 2022-08-26 Screening for [facility] Test 10:11:29 malignant neoplasm of cervix (procedure) [code = 432194672] Future Scheduled 2022-08-26 BREAST CANCER [facility] Test 10:11:29 SCREENING [code = BREAST CANCER SCREENING] Future Scheduled 2022-08-26 COLONOSCOPY SCREENING [facility] Test 10:11:29 [code = COLONOSCOPY SCREENING] Future Scheduled 2022-08-26 SHINGLES VACCINES (1 [facility] Test 10:11:29 of 2) [code = SHINGLES VACCINES (1 of 2)] Future Scheduled 2022-08-26 COVID-19 VACCINE (4 - [facility] Test 10:11:29 Booster for Moderna series) [code = COVID-19 VACCINE (4 - Booster for Moderna series)] Future Scheduled 2022-08-26 INFLUENZA VACCINE Method [facility] Test 10:11:29 [code = INFLUENZA VACCINE] Future Scheduled 2022-08-26 HEPATITIS B VACCINES [facility] Test 10:11:29 (1 of 3 - 3-dose series) [code = HEPATITIS B VACCINES (1 of 3 - 3-dose series)] Future Scheduled 2022-08-26 Hepatitis C screening [facility] Test 10:11:29 (procedure) [code = [id number]] Future Scheduled 2022-08-26 Screening for [facility] Test 10:11:29 malignant neoplasm of cervix (procedure) [code = 366783081] Future Scheduled 2022-08-26 BREAST CANCER [facility] Test 10:11:29 SCREENING [code = BREAST CANCER SCREENING] Future Scheduled 2022-08-26 COLONOSCOPY SCREENING [facility] Test 10:11:29 [code = COLONOSCOPY SCREENING] Future Scheduled 2022-08-26 SHINGLES VACCINES (1 [facility] Test 10:11:29 of 2) [code = SHINGLES VACCINES (1 of 2)] Future Scheduled 2022-08-26 COVID-19 VACCINE (4 - [facility] Test 10:11:29 Booster for Moderna series) [code = COVID-19 VACCINE (4 - Booster for Moderna series)] Future Scheduled 2022-08-26 INFLUENZA VACCINE [facility] Test 10:11:29 [code = INFLUENZA VACCINE] Future Scheduled 2022-08-26 HEPATITIS B VACCINES [facility] Test 10:11:29 (1 of 3 - 3-dose series) [code = HEPATITIS B VACCINES (1 of 3 - 3-dose series)] Future Scheduled 2022-08-26 Hepatitis C screening [facility] Test 10:11:29 (procedure) [code = 213657099] Future Scheduled 2022-08-26 Screening for [facility] Test 10:11:29 malignant neoplasm of cervix (procedure) [code = 341565213] Future Scheduled 2022-08-26 BREAST CANCER [facility] Test 10:11:29 SCREENING [code = BREAST CANCER SCREENING] Future Scheduled 2022-08-26 COLONOSCOPY SCREENING [facility] Test 10:11:29 [code = COLONOSCOPY SCREENING] Future Scheduled 2022-08-26 SHINGLES VACCINES (1 [facility] Test 10:11:29 of 2) [code = SHINGLES VACCINES (1 of 2)] Future Scheduled 2022-08-26 COVID-19 VACCINE (4 - Me [facility] Test 10:11:29 Booster for Moderna series) [code = COVID-19 VACCINE (4 - Booster for Moderna series)] Future Scheduled 2022-08-26 INFLUENZA VACCINE Method [facility] Test 10:11:29 [code = INFLUENZA VACCINE] Future Scheduled 2022-08-26 HEPATITIS B VACCINES [facility] Test 10:11:29 (1 of 3 - 3-dose series) [code = HEPATITIS B VACCINES (1 of 3 - 3-dose series)] Future Scheduled 2022-08-26 Hepatitis C screening [facility] Test 10:11:29 (procedure) [code = 379575000] Future Scheduled 2022-08-26 Screening for [facility] Test 10:11:29 malignant neoplasm of cervix (procedure) [code = 570675322] Future Scheduled 2022-08-26 BREAST CANCER [facility] Test 10:11:29 SCREENING [code = BREAST CANCER SCREENING] Future Scheduled 2022-08-26 COLONOSCOPY SCREENING [facility] Test 10:11:29 [code = COLONOSCOPY SCREENING] Future Scheduled 2022-08-26 SHINGLES VACCINES (1 [facility] Test 10:11:29 of 2) [code = SHINGLES VACCINES (1 of 2)] Future Scheduled 2022-08-26 COVID-19 VACCINE (4 - [facility] Test 10:11:29 Booster for Moderna series) [code = COVID-19 VACCINE (4 - Booster for Moderna series)] Future Scheduled 2022-08-26 INFLUENZA VACCINE [facility] Test 10:11:29 [code = INFLUENZA VACCINE] Future Scheduled 2022-08-26 HEPATITIS B VACCINES [facility] Test 10:11:29 (1 of 3 - 3-dose series) [code = HEPATITIS B VACCINES (1 of 3 - 3-dose series)] Future Scheduled 2022-08-26 Hepatitis C screening [facility] Test 10:11:29 (procedure) [code = 612949657] Future Scheduled 2022-08-26 Screening for [facility] Test 10:11:29 malignant neoplasm of cervix (procedure) [code = 609730442] Future Scheduled 2022-08-26 BREAST CANCER [facility] Test 10:11:29 SCREENING [code = BREAST CANCER SCREENING] Future Scheduled 2022-08-26 COLONOSCOPY SCREENING [facility] Test 10:11:29 [code = COLONOSCOPY SCREENING] Future Scheduled 2022-08-26 SHINGLES VACCINES (1 [facility] Test 10:11:29 of 2) [code = SHINGLES VACCINES (1 of 2)] Future Scheduled 2022-08-26 COVID-19 VACCINE (4 - Me [facility] Test 10:11:29 Booster for Moderna series) [code = COVID-19 VACCINE (4 - Booster for Moderna series)] Future Scheduled 2022-08-26 INFLUENZA VACCINE Method [facility] Test 10:11:29 [code = INFLUENZA VACCINE] Future Scheduled 2022-08-26 HEPATITIS B VACCINES [facility] Test 10:11:29 (1 of 3 - 3-dose series) [code = HEPATITIS B VACCINES (1 of 3 - 3-dose series)] Future Scheduled 2022-08-26 Hepatitis C screening [facility] Test 10:11:29 (procedure) [code = 084619919] Future Scheduled 2022-08-26 Screening for [facility] Test 10:11:29 malignant neoplasm of cervix (procedure) [code = 194284186] Future Scheduled 2022-08-26 BREAST CANCER [facility] Test 10:11:29 SCREENING [code = BREAST CANCER SCREENING] Future Scheduled 2022-08-26 COLONOSCOPY SCREENING [facility] Test 10:11:29 [code = COLONOSCOPY SCREENING] Future Scheduled 2022-08-26 SHINGLES VACCINES (1 [facility] Test 10:11:29 of 2) [code = SHINGLES VACCINES (1 of 2)] Future Scheduled 2022-08-26 COVID-19 VACCINE (4 - [facility] Test 10:11:29 Booster for Moderna series) [code = COVID-19 VACCINE (4 - Booster for Moderna series)] Future Scheduled 2022-08-26 INFLUENZA VACCINE [facility] Test 10:11:29 [code = INFLUENZA VACCINE] Future Scheduled 2022-08-26 HEPATITIS B VACCINES [facility] Test 10:11:29 (1 of 3 - 3-dose series) [code = HEPATITIS B VACCINES (1 of 3 - 3-dose series)] Future Scheduled 2022-08-26 Hepatitis C screening [facility] Test 10:11:29 (procedure) [code = 123244178] Future Scheduled 2022-08-26 Screening for [facility] Test 10:11:29 malignant neoplasm of cervix (procedure) [code = 947032899] Future Scheduled 2022-08-26 BREAST CANCER [facility] Test 10:11:29 SCREENING [code = BREAST CANCER SCREENING] Future Scheduled 2022-08-26 COLONOSCOPY SCREENING [facility] Test 10:11:29 [code = COLONOSCOPY SCREENING] Future Scheduled 2022-08-26 SHINGLES VACCINES (1 [facility] Test 10:11:29 of 2) [code = SHINGLES VACCINES (1 of 2)] Future Scheduled 2022-08-26 COVID-19 VACCINE (4 - Me [facility] Test 10:11:29 Booster for Moderna series) [code = COVID-19 VACCINE (4 - Booster for Moderna series)] Future Scheduled 2022-08-26 INFLUENZA VACCINE Method [facility] Test 10:11:29 [code = INFLUENZA VACCINE] Future Scheduled 2022-08-26 HEPATITIS B VACCINES [facility] Test 10:11:29 (1 of 3 - 3-dose series) [code = HEPATITIS B VACCINES (1 of 3 - 3-dose series)] Future Scheduled 2022-08-26 Hepatitis C screening [facility] Test 10:11:29 (procedure) [code = 853910112] Future Scheduled 2022-08-26 Screening for [facility] Test 10:11:29 malignant neoplasm of cervix (procedure) [code = 842086545] Future Scheduled 2022-08-26 BREAST CANCER [facility] Test 10:11:29 SCREENING [code = BREAST CANCER SCREENING] Future Scheduled 2022-08-26 COLONOSCOPY SCREENING [facility] Test 10:11:29 [code = COLONOSCOPY SCREENING] Future Scheduled 2022-08-26 SHINGLES VACCINES (1 [facility] Test 10:11:29 of 2) [code = SHINGLES VACCINES (1 of 2)] Future Scheduled 2022-08-26 COVID-19 VACCINE (4 - [facility] Test 10:11:29 Booster for Moderna series) [code = COVID-19 VACCINE (4 - Booster for Moderna series)] Future Scheduled 2022-08-26 INFLUENZA VACCINE [facility] Test 10:11:29 [code = INFLUENZA VACCINE] Future Scheduled 2022-08-26 HEPATITIS B VACCINES [facility] Test 10:11:29 (1 of 3 - 3-dose series) [code = HEPATITIS B VACCINES (1 of 3 - 3-dose series)] Future Scheduled 2022-08-26 Hepatitis C screening [facility] Test 10:11:29 (procedure) [code = 679307738] Future Scheduled 2022-08-26 Screening for [facility] Test 10:11:29 malignant neoplasm of cervix (procedure) [code = [id number]] Future Scheduled 2022-08-26 BREAST CANCER [facility] Test 10:11:29 SCREENING [code = BREAST CANCER SCREENING] Future Scheduled 2022-08-26 COLONOSCOPY SCREENING Former[facility] Test 10:11:29 [code = COLONOSCOPY SCREENING] Future Scheduled 2022-08-26 SHINGLES VACCINES (1 [facility] Test 10:11:29 of 2) [code = SHINGLES VACCINES (1 of 2)] Future Scheduled 2022-08-26 COVID-19 VACCINE (4 - [facility] Test 10:11:29 Booster for Moderna series) [code = COVID-19 VACCINE (4 - Booster for Moderna series)] Future Scheduled 2022-08-26 INFLUENZA VACCINE [facility] Test 10:11:29 [code = INFLUENZA VACCINE] Future Scheduled 2022-06-30 HEPATITIS B VACCINES [facility] Test 12:34:57 (1 of 3 - 3-dose series) [code = HEPATITIS B VACCINES (1 of 3 - 3-dose series)] Future Scheduled 2022-06-30 Hepatitis C screening [facility] Test 12:34:57 (procedure) [code = [id number]] Future Scheduled 2022-06-30 Screening for [facility] Test 12:34:57 malignant neoplasm of cervix (procedure) [code = 873127047] Future Scheduled 2022-06-30 BREAST CANCER [facility] Test 12:34:57 SCREENING [code = BREAST CANCER SCREENING] Future Scheduled 2022-06-30 COLONOSCOPY SCREENING [facility] Test 12:34:57 [code = COLONOSCOPY SCREENING] Future Scheduled 2022-06-30 SHINGLES VACCINES (1 [facility] Test 12:34:57 of 2) [code = SHINGLES VACCINES (1 of 2)] Future Scheduled 2022-06-30 COVID-19 VACCINE (4 - [facility] Test 12:34:57 Booster for Moderna series) [...] [facility] 00:00:00 (procedure) [code = [facility] [id number]] Future Scheduled [address] [facility] Test 00:00:00 (procedure) [code = [facility] [id number]] Future Scheduled [address] [facility] Test 00:00:00 (procedure) [code = [facility] [id number]] Future Scheduled [address] [facility] 00:00:00 (procedure) [code = [facility] [id number]] Future Scheduled [address] [facility] Test 00:00:00 (procedure) [code = [facility] Center [id number]] Future Scheduled [address] [facility] Test 00:00:00 (procedure) [code = [facility] Center 98823028] Future Scheduled [address] [facility] Test 00:00:00 (procedure) [code = [facility] Center [id number]] Future Scheduled [address] [facility] Test 00:00:00 (procedure) [code = [facility] Center 89699783] Future Scheduled [address] [facility] 00:00:00 (procedure) [code = [facility] Center 94252598] Future Scheduled [address] [facility] 00:00:00 (procedure) [code = [facility] Center 75121871] Future Scheduled [address] [facility] 00:00:00 (procedure) [code = [facility] Center 57411351] Future Scheduled [address] [facility] 00:00:00 (procedure) [code = [facility] Center 82727317] Future Scheduled [address] [facility] 00:00:00 (procedure) [code = [facility] Center 43837282] Future Scheduled [address] [facility] 00:00:00 (procedure) [code = [facility] Center 78351156] Future Scheduled [address] [facility] 00:00:00 (procedure) [code = [facility] Center 90037397] Future Scheduled [address] [facility] 00:00:00 (procedure) [code = [facility] Center 72786510] Future Scheduled [address] [facility] 00:00:00 (procedure) [code = [facility] Center 39529106] Future Scheduled [address] [facility] Test 00:00:00 (procedure) [code = [facility] Center 20190572] Future Scheduled [address] [facility]:00 [facility] cervix (procedure) [code = 481324220] Future Scheduled [address] [facility] 00:00:00 [facility] cervix (procedure) [code = 247704913] Future Scheduled [address] [facility] 00:00:00 [facility] cervix (procedure) [code = 586694743] Future Scheduled [address] [facility] 00:00:00 [facility] cervix (procedure) [code = 225763403] Future Scheduled [address] [facility] 00:00:00 [facility] cervix (procedure) [code = 484014915] Future Scheduled [address] [facility] 00:00:00 [facility] cervix (procedure) [code = 826594269] Future Scheduled [address] [facility] 00:00:00 [facility] cervix (procedure) [code = 249765231] Future Scheduled [address] [facility] 00:00:00 [facility] cervix (procedure) [code = 426995895] Future Scheduled [address] [facility] 00:00:00 [facility] cervix (procedure) [code = 750343511] Future Scheduled [address] [facility] 00:00:00 [facility] cervix (procedure) [code = 906058855] Future Scheduled [address] [facility] 00:00:00 [facility] cervix (procedure) [code = 748711142] Future Scheduled [address] [facility] 00:00:00 [facility] cervix (procedure) [code = 070524463] Future Scheduled [address] [facility] 00:00:00 [facility] cervix (procedure) [code = 636039199] Future Scheduled [address] [facility] Test 00:00:00 [facility] cervix (procedure) [code = 591005308] Future Scheduled [address] [facility] Test 00:00:00 [facility] cervix (procedure) [code = 030895459] Future Scheduled [address] [facility] Test 00:00:00 [facility] cervix (procedure) [code = 396876230] Future Scheduled [address] [facility] 00:00:00 [facility] cervix (procedure) [code = 382214836] Future Scheduled [address] [facility] 00:00:00 [facility] cervix (procedure) [code = 690122523] Future Scheduled 1982 DTAP/TDAP/TD VACCINES [facility] [...] [facility] breast (procedure) [code = 279049972] Future Scheduled [address] [facility] Test 00:00:00 (combo) [code = CT Medical [facility] enter Colonography (combo)] Future Scheduled [address] [facility] 00:00:00 [facility] colon (procedure) [code = 115704240] Future Scheduled [address] [facility] 00:00:00 [facility] colon (procedure) [code = 281507392] Future Scheduled [address] [facility] 00:00:00 [facility] colon (procedure) [code = 452122496] Future Scheduled [address] [facility] 00:00:00 [facility] colon (procedure) [code = 925958088] Future Scheduled 1963 [facility] Future Scheduled [address] [facility] 00:00:00 [facility] breast (procedure) [code = 722264512] Future Scheduled [address] [facility] 00:00:00 (combo) [code = CT [facility] enter Colonography (combo)] Future Scheduled [address] [facility] 00:00:00 [facility] colon (procedure) [code = 073812848] Future Scheduled [address] [facility] 00:00:00 [facility] colon (procedure) [code = 920893132] Future Scheduled [address] [facility] 00:00:00 [facility] colon (procedure) [code = 719855181] Future Scheduled [address] [facility] 00:00:00 [facility] colon (procedure) [code = 043055824] Future Scheduled 1963 [facility] Future Scheduled [address] [facility] 00:00:00 [facility] breast (procedure) [code = 463824359] Future Scheduled [address] [facility] 00:00:00 (combo) [code = CT Medical [facility] enter Colonography (combo)] Future Scheduled [address] [facility] 00:00:00 [facility] colon (procedure) [code = 783904659] Future Scheduled [address] [facility] 00:00:00 [facility] colon (procedure) [code = 158107447] Future Scheduled [address] [facility] 00:00:00 [facility] colon (procedure) [code = 842404599] Future Scheduled [address] [facility] 00:00:00 [facility] colon (procedure) [code = 029350365] Future Scheduled 1963 [facility] Future Scheduled [address] [facility] 00:00:00 [facility] breast (procedure) [code = 424520745] Future Scheduled [address] [facility] 00:00:00 (combo) [code = CT Medical C enter Colonography (combo)] Future Scheduled [address] [facility] 00:00:00 malignant [facility] colon (procedure) [code = 610148594] Future Scheduled [address] [facility] Test 00:00:00 malignant [facility]oplasm [facility] colon (procedure) [code = 559756546] Future Scheduled [address] [facility] Test 00:00:00 malignant [facility]oplasm [facility] colon (procedure) [code = 208103793] Future Scheduled [address] [facility] 00:00:00 malignant [facility]oplasm [facility] colon (procedure) [code = 154436992] Future Scheduled 1963 [facility] [address] [facility] 00:00:00 malignant [facility] breast (procedure) [code = 020018447] Future Scheduled [address] [facility] 00:00:00 (combo) [code = CT Medical C enter Colonography (combo)] Future Scheduled [address] [facility] 00:00:00 malignant [facility] colon (procedure) [code = 394045341] Future Scheduled [address] [facility] 00:00:00 malignant [facility]oplasm [facility] colon (procedure) [code = 306430131] Future Scheduled [address] [facility] 00:00:00 malignant [facility]oplasm [facility] colon (procedure) [code = 866320200] Future Scheduled [address] [facility] 00:00:00 malignant neoplasm of [facility] colon (procedure) [code = 045435820] Future Scheduled 1963 [facility] [address] [facility] 00:00:00 [facility] breast (procedure) [code = 670545522] Future Scheduled [address] [facility] 00:00:00 (combo) [code = CT Medical C enter Colonography (combo)] Future Scheduled [address] [facility] 00:00:00 [facility] breast (procedure) [code = 524803643] Future Scheduled [address] [facility] 00:00:00 (combo) [code = CT Medical [facility] enter Colonography (combo)] Future Scheduled [address] [facility] 00:00:00 [facility] colon (procedure) [code = 318519485] Future Scheduled [address] [facility] 00:00:00 [facility] colon (procedure) [code = 205252003] Future Scheduled [address] [facility] 00:00:00 malignant [facility] colon (procedure) [code = 762525328] Future Scheduled [address] [facility] 00:00:00 malignant neoplasm of [facility] colon (procedure) [code = 790662939] Future Scheduled 1963 [facility] [address] [facility] 00:00:00 malignant neoplasm [facility] colon (procedure) [code = 477999512] Future Scheduled [address] [facility] 00:00:00 [facility] colon (procedure) [code = 425750235] Future Scheduled [address] [facility] 00:00:00 [facility] breast (procedure) [code = 847899694] Future Scheduled [address] [facility] 00:00:00 (combo) [code = CT Medical C enter Colonography (combo)] Future Scheduled [address] [facility] 00:00:00 [facility] colon (procedure) [code = 218886266] Future Scheduled [address] [facility] Test 00:00:00 [facility] colon (procedure) [code = 616882474] Future Scheduled [address] [facility] 00:00:00 malignant [facility]oplasm [facility] colon (procedure) [code = 681394986] Future Scheduled [address] [facility] 00:00:00 [facility] colon (procedure) [code = 106542197] Future Scheduled [address] [facility] Test 00:00:00 malignant neoplasm [facility] colon (procedure) [code = 691308712] Future Scheduled 1963 [facility]] [facility] Future Scheduled [address] [facility] 00:00:00 malignant neoplasm [facility] colon (procedure) [code = 491927799] Future Scheduled [address] [facility] 00:00:00 malignant neoplasm [facility] breast (procedure) [code = 921141719] Future Scheduled 1963 [facility] [address] [facility] 00:00:00 (combo) [code = CT Medical C enter Colonography (combo)] Future Scheduled [address] [facility] 00:00:00 [facility] colon (procedure) [code = 647899981] Future Scheduled [address] [facility] 00:00:00 [facility] colon (procedure) [code = 890224962] Future Scheduled [address] [facility] 00:00:00 [facility] colon (procedure) [code = 281339344] Future Scheduled [address] [facility] 00:00:00 [facility] colon (procedure) [code = 377156870] Future Scheduled 1963 [facility]] [facility] Future Scheduled [address] [facility] 00:00:00 [facility] breast (procedure) [code = 008406365] Future Scheduled [address] [facility] 00:00:00 (combo) [code = CT Medical C enter Colonography (combo)] Future Scheduled [address] [facility] 00:00:00 [facility] colon (procedure) [code = 087010315] Future Scheduled [address] [facility] 00:00:00 [facility] colon (procedure) [code = 107373963] Future Scheduled [address] [facility] 00:00:00 [facility] colon (procedure) [code = 647586385] Future Scheduled [address] [facility] 00:00:00 [facility] colon (procedure) [code = 596038806] Future Scheduled 1963 [facility]oscopy [facility]] [facility] Future Scheduled [address] [facility] 00:00:00 [facility] breast (procedure) [code = 174832537] Future Scheduled [address] [facility] 00:00:00 (combo) [code = CT Medical C enter Colonography (combo)] Future Scheduled [address] [facility] 00:00:00 [facility] colon (procedure) [code = 658662357] Future Scheduled [address] [facility] 00:00:00 [facility] colon (procedure) [code = 134169430] Future Scheduled [address] [facility] 00:00:00 [facility] colon (procedure) [code = 020645375] Future Scheduled [address] [facility] 00:00:00 malignant [facility]oplasm [facility] colon (procedure) [code = 069747273] Future Scheduled 1963 [facility] [address] [facility] 00:00:00 malignant [facility] breast (procedure) [code = 861327268] Future Scheduled [address] [facility] 00:00:00 (combo) [code = CT Medical C enter Colonography (combo)] Future Scheduled [address] [facility] 00:00:00 [facility] colon (procedure) [code = 766839350] Future Scheduled [address] [facility] 00:00:00 [facility] of [facility] colon (procedure) [code = 485746765] Future Scheduled [address] [facility] 00:00:00 malignant [facility] of [facility] colon (procedure) [code = 640923790] Future Scheduled [address] [facility] 00:00:00 malignant neoplasm of [facility] colon (procedure) [code = 804870301] Future Scheduled 1963 [facility]oscopy [facility] [address] [facility] 00:00:00 malignant [facility] breast (procedure) [code = 452817630] Future Scheduled [address] [facility] 00:00:00 (combo) [code = CT Medical C enter Colonography (combo)] Future Scheduled [address] [facility] 00:00:00 malignant [facility] colon (procedure) [code = 368171507] Future Scheduled [address] [facility] 00:00:00 malignant [facility]oplasm [facility] colon (procedure) [code = 013198971] Future Scheduled [address] [facility] 00:00:00 malignant [facility] colon (procedure) [code = 772559469] Future Scheduled [address] [facility] 00:00:00 malignant [facility] colon (procedure) [code = 111553910] Future Scheduled 1963 S[facility]oidoscopy [facility]] [facility] Future Scheduled [address] [facility] 00:00:00 malignant [facility] breast (procedure) [code = 104989346] Future Scheduled [address] [facility] 00:00:00 (combo) [code = CT Medical C enter Colonography (combo)] Future Scheduled [address] [facility] 00:00:00 malignant [facility]oplasm [facility] colon (procedure) [code = 272144220] Future Scheduled [address] [facility] 00:00:00 malignant neoplasm of [facility] colon (procedure) [code = 906932303] Future Scheduled [address] [facility] 00:00:00 malignant [facility]oplasm of [facility] colon (procedure) [code = 280735300] Future Scheduled [address] [facility] 00:00:00 malignant neoplasm of [facility] colon (procedure) [code = 238047037] Future Scheduled 1963 [facility]oscopy [facility] [address] [facility] 00:00:00 malignant [facility] breast (procedure) [code = 579712934] Future Scheduled [address] [facility] 00:00:00 (combo) [code = CT Medical C enter Colonography (combo)] Future Scheduled [address] [facility] 00:00:00 [facility] colon (procedure) [code = 151034041] Future Scheduled [address] [facility] 00:00:00 [facility] colon (procedure) [code = 829602309] Future Scheduled [address] [facility] 00:00:00 [facility] colon (procedure) [code = 013729996] Future Scheduled [address] [facility] 00:00:00 [facility] colon (procedure) [code = 795709831] Future Scheduled 1963 [facility]oscopy [facility] [address] [facility] 00:00:00 [facility] breast (procedure) [code = 971536238] Future Scheduled [address] [facility] 00:00:00 (combo) [code = CT Medical C enter Colonography (combo)] Future Scheduled [address] [facility] 00:00:00 [facility] colon (procedure) [code = 444560921] Future Scheduled [address] [facility] 00:00:00 [facility] colon (procedure) [code = 066789921] Future Scheduled [address] [facility] 00:00:00 [facility] colon (procedure) [code = 957506515] Future Scheduled [address] [facility] 00:00:00 [facility] colon (procedure) [code = 708044089] Future Scheduled 1963 [facility] [address] [facility] 00:00:00 [facility] breast (procedure) [code = 641704726] Future Scheduled [address] [facility] 00:00:00 (combo) [code = CT Medical C enter Colonography (combo)] Future Scheduled [address] [facility] 00:00:00 [facility] colon (procedure) [code = 038173615] Future Scheduled [address] [facility] 00:00:00 [facility] colon (procedure) [code = 435430116] Future Scheduled [address] [facility] 00:00:00 [facility] colon (procedure) [code = 773005492] Future Scheduled [address] [facility] 00:00:00 [facility] colon (procedure) [code = 142171613] Future Scheduled 1963 [facility]oscopy [facility] Future Scheduled [address] [facility] 00:00:00 [facility] breast (procedure) [code = 862405337] Future Scheduled [address] [facility] 00:00:00 (combo) [code = CT Medical C enter Colonography (combo)] Future Scheduled [address] [facility] 00:00:00 [facility] colon (procedure) [code = 725779397] Future Scheduled [address] [facility] 00:00:00 [facility] colon (procedure) [code = 407716857] Future Scheduled [address] [facility] 00:00:00 [facility] colon (procedure) [code = 398287054] Future Scheduled [address] [facility] 00:00:00 [facility] colon (procedure) [code = 064350441] Future Scheduled 1963 [facility] Encounters Start End Encounter Admission Attending Care Care Encounter Source Date/Time Date/Time Type Type Clinicians Facility Department ID 2022-09-23 Outpatient [facility] [id number]17 [id number] [facility] 2022-09-17 Outpatient [facility] [id number] [place] 10:15:38 [id number] [facility] 2022-09-02 Outpatient [facility] [id number] [place] 11:19:41 [id number] [facility] 2022-08-28 Outpatient [facility] [id number] [place] 08:34:05 [id number] [facility] 2022-08-20 Outpatient [facility] [id number] [place] 09:28:05 [id number] [facility] 2022-08-11 Outpatient [facility] [id number] [place] 16:02:03 [id number] [facility] 2022-07-28 Outpatient [facility] [id number] [place] 09:55:18 [id number] [facility] 2022-05-27 Outpatient Kurtis XIONG [facility] SOR [id number] Univers 15:20:24 RHETT [facility] 2022-05-[address] [facility] SOR [id number] Univers 11:58:36 RHETT [facility] 2021-08-09 Emergency [facility] [id number] Univers 12:48:28 [facility] 2023-03-19 2023-03-19 Outpatient Kurtis DOBBS [facility] [id number] Univers 10:30:00 10:30:00 MARCIAL alonzoleigh [facility] 2022-10-01 2022-10-01 [facility] [id number] [place] 14:45:00 14:45:00 [facility] 2022-09-24 2022-09-24 Office Elmer [facility] 1.2.840.114 [id number] [place] 13:15:00 13:44:29 Visit [facility] 350.1.13.58 H [facility] 9.2.7.2.686 PLAZA 5 [id number] 5 2022-09-24 2022-09-24 [facility]patient [facility] [id number] [place] 09:45:00 09:45:00 BARRY Casero 2022-09-24 2022-09-[address] [facility] 1.2.840.114 [id number] Univers 00:00:00 00:00:00 [facility] 350.1.13.10 ity [facility] 4.2.7.2.686 Branden as VIKTOR?BLEA [id number] [address] [facility] 2022-09-22 2022-09-22 Emergency E GLASS, MHSE MHSE [id number] 10:06:00 11:45:[address] [facility] 2022-09-18 2022-09-18 Outpatient R RINKU [facility] [id number] Univers 10:30:00 10:54:17 MARCIAL carroll [facility] 2022-09-18 2022-09-[address] [facility] 1.2.840.114 [id number] Univers 10:30:00 10:54:17 Visit Marcial [facility] 350.1.13.10 it y of [place] 4.2.7.2.686 Branden as VIKTOR?BLEA [id number] [address] [facility] 2022-09-17 2022-09-17 Office Elmer [facility] 1.2.840.114 [id number] [place] 10:45:00 12:09:33 Visit Barry [place] 350.1.13.58 H [facility] 9.2.7.2.686 PLAZA 0 [id number] 5 2022-09-07 2022-09-09 Inpatient ELMER, MHSE MHSE [id number] 05:32:00 12:44:00 BARRYKarely [facility] 2022-09-02 2022-09-02 Outpatient [facility] [id number] [place] 00:00:00 11:59:21 Health 2022-09-02 2022-09-02 [facility] [id number] [place] 10:45:00 [facility]59[facility] 2022-08-27 2022-08-27 [facility] [id number] [place] 10:45:00 10:45:00 BARRY [facility] 2022-08-21 2022-08-21 Outpatient [facility] [id number] [place] 00:00:00 11:20:58 Health 2022-08-21 2022-08-21 Outpatient [facility] [id number] [place] 00:05:00 11:20:47 Health 2022-08-21 2022-08-21 [facility] [id number] [place] 10:15:00 [facility]:20:[facility] 2022-08-06 2022-08-06 Office Elmer [facility] 1.2.840.114 [id number] [place] 10:15:00 11:25:11 Visit Barry [facility] 350.1.13.58 [facility] MEDICAL 9.2.7.2.686 PLA[place] 9 [id number] 5 2022-08-06 2022-08-06 Outpatient ELMER [facility] [id number] [place] 10:15:00 10:15:[facility] 2022-07-30 2022-07-30 Office Elmer [facility] 1.2.840.114 [id number] [place] 10:15:00 10:41:42 Visit Barry MELGAR 350.1.13.58 [facility] MEDICAL 9.2.7.2.686 PLA[place] 9 [id number] 5 2022-07-23 2022-07-23 Office Elmer [facility] 1.2.840.114 [id number] [place] 14:45:00 15:50:46 Visit Barry MELGAR 350.1.13.58 [facility] MEDICAL 9.2.7.2.686 [place] 9 [id number] 5 2022-07-14 2022-07-17 Inpatient [facility] [id number] [facility] 10:32:00 16:00:00 kurits Mera 00 l [facility] 2022-07-14 2022-07-17 Inpatient ELMER [facility] MHSE [id number] MH 05:32:00 11:00:00 [facility] 2022-07-10 2022-07-10 Office Elmer [facility] 1.2.840.114 [id number] [place] 10:45:00 11:24:21 Visit Barry MELGAR 350.1.13.58 [facility] MEDICAL 9.2.7.2.686 PLA[place] 2 [id number] 5 2022-06-26 2022-06-26 Outpatient Kurtis GALINDO [facility] [id number] Univers 09:00:00 09:00:00 RADHA carroll [facility] 2022-06-24 2022-06-24 Office Elmer [facility] 1.2.840.114 [id number] [place] 08:30:00 09:19:49 Visit [facility] 350.1.13.58 H [facility] 9.2.7.2.686 PLAZA 3 [id number] 5 2022-06-19 2022-06-[address] [facility] 1.2.840.114 [id number] Univers 00:00:00 00:00:00 Secure Msg Marcial HEALTH 350.1.13.10 ity of [facility] 4.2.7.2.686 Branden as VIKTOR?BLEA [id number] [address] [facility] 2022-06-19 2022-06-19 [facility]phone [facility] 1.2.240.864 [id number] Univers 00:00:00 00:00:00 Marcial HEALTH 350.1.13.10 it y [facility] 4.2.7.2.686 Branden as VIKTOR?BLEA [id number] [address] [facility] 2022-06-17 2022-06-17 Telephone [facility] 1.2.605.669 [id number] Univers 00:00:00 00:00:00 Marcial [facility] 350.1.13.10 i ty of [place] 4.2.7.2.[place] [id number] [address] 2022-06-17 2022-06-17 Telephone [facility] 1.2.191.919 [id number] Univers 00:00:00 00:00:00 Marcial HEALTH 350.1.13.10 it y of [place] 4.2.7.2.686 Branden as VIKTOR?BLEA [id number] [address] [facility] 2022-06-16 2022-06-16 Field Property Loss Specialist Lab, [place] - Mike [facility] 1.2.840.1 14 [id number] [facility] 16:30:00 16:30:26 Visit Marcial Dobbs 350.1.13.10 ity of [place] 4.2.7.2.686 Branden as VIKTOR?BLEA [id number] [address] [facility] 2022-06-16 2022-06-16 Outpatient R RINKU [facility] [id number] Univers 16:30:00 16:30:00 MARCIAL carroll [facility] 2022-06-16 2022-06-16 Telephone [facility] 1.2.040.584 [id number] Univers 00:00:00 00:00:00 Marcial CINTRON 350.1.13.10 it y of [place] 4.2.7.2.686 Branden as VIKTOR?BLEA [id number] Sd clemente [address] [facility] 2022-06-12 2022-06-12 Field Property Loss Specialist Lab, Ang - [facility] 1.2.840.1 14 [id number] Univers 16:15:00 16:17:26 Visit Marcial Dobbs 350.1.13.10 ity of [place] 4.2.7.2.686 Branden as VIKTOR?BLEA [id number] Sd clemente [address] [facility] 2022-06-12 2022-06-12 [facility] [id number] Univers 16:15:00 16:15:00 MARCIAL carroll [facility] 2022-06-12 2022-06-12 Outpatient R RINKU [facility] [id number] Univers 15:30:00 15:55:09 MARCIAL carroll [facility] 2022-06-12 2022-06-12 Office [facility] 1.2.840.114 [id number] Univers 15:30:00 15:55:09 Visit Marcial CINTRON 350.1.13.10 it y of [facility] 4.2.7.2.686 Branden as VIKTOR?BLEA [id number] Sd carrie[address] [facility] 2022-06-12 2022-06-12 Outpatient [facility] [id number] Univers 15:30:00 15:55:09 MARCIAL carroll [facility] 2022-06-11 2022-06-11 Outpatient [facility] [id number] [place] 00:00:00 16:22:00 Health 2022-06-11 2022-06-11 Office CIPRIANO Payne [facility] 1.2.840.114 [id number] [place] 09:30:00 10:49:04 Visit Barry MELGAR 350.1.13.58 H [facility] MEDICAL 9.2.7.2.686 PLAZA 7 [id number] 5 2022-06-09 2022-06-09 Telephone [facility] 1.2.100.807 [id number] Univers 00:00:00 00:00:[address] [facility] 350.1.13.10 it y of [facility] 4.2.7.2.686 Branden as VIKTOR?BLEA [id number] [address] [facility] 2022-06-08 2022-06-08 Outpatient CAYDEN BAUER [facility] [id number] Univers 08:30:00 08:30:00 ity [facility] 2022-06-08 2022-06-08 Outpatient FOG_A_Provi AOSM AOSM [id number] Grace 00:00:00 00:00:00 alyx [id number] Orthop e dic Sports Medicin e 2022-06-08 2022-06-08 Telephone [facility] 1.2.033.391 [id number] Univers 00:00:00 00:00:00 Marcial CINTRON 350.1.13.10 it y of [facility] 4.2.7.2.686 Branedn as VIKTOR?BLEA [id number] [address] [facility] 2022-06-06 2022-06-06 Emergency Berry, 1.2.840.1 [id number] Methodi 18:21:00 22:14:[address] Yaya 3.430.2.7 Hospit a .3.149962 l .8 2022-06-06 2022-06-06 Emergency Berry, 1.2.840.1 [id number] Methodi 18:21:00 22:14:[address] Yaya 3.430.2.7 Hospit a .3.672134 l .8 2022-06-06 2022-06-06 Travel 1.2.840.1 1.2.987.655 1043 [id number] Methodi 00:00:00 00:00:[address] 3.430.2.7 0.2.7.3.698 Ho spita .3.126704 084.8 l .8 2022-06-06 2022-06-06 Travel 1.2.840.1 1.2.513.722 4766 [id number] Methodi 00:00:00 00:00:[address] 3.430.2.7 0.2.7.3.698 Ho spita .3.392466 084.8 l .8 2022-06-04 2022-06-04 Outpatient R ERMELINDA [facility] SOR [id number] Univers 07:10:00 07:10:00 RHETT [facility] 2022-05-27 2022-05-27 Outpatient [facility] [id number] Univers 08:50:00 10:25:10 RHETT [facility] 2022-05-27 2022-05-27 Office [facility] 1.2.840.114 [id number] Univers 08:50:00 10:25:10 Visit Rhett Isaac SPECIALTY 350.1.13.10 ity of [place] [id number] Sd carriepaul SIGALALeigh [address] [place] [address] 2022-05-27 2022-05-27 Outpatient [facility] [id number] Univers 08:50:00 10:25:10 RHETT [facility] 2022-05-27 2022-05-27 Office [facility] 1.2.840.114 [id number] Univers 08:50:00 10:25:10 Visit Rhett Isaac SPECIALTY 350.1.13.10 ity of [place].2.[place] AT [id number] Sd clemente JOVONLeigh [address] [place] [address] 2022-05-27 2022-05-27 Outpatient [facility] [id number] Univers 08:50:00 08:50:00 RHETT ity of [facility] 2022-05-27 2022-05-27 Telephone [facility] 1.2.810.418 [id number] Univers 00:00:00 00:00:00 Marcial HEALTH 350.1.13.10 it y of [place] 4.2.7.2.686 Branden as VIKTOR?BLEA [id number] Sd clemente LIZ [address] [place] [address] [facility] 2022-05-27 2022-05-27 Telephone [facility] 1.2.978.586 [id number] Univers 00:00:00 00:00:00 Marcial HEALTH 350.1.13.10 it y of [place] 4.2.7.2.686 Branden as VIKTOR?BLEA [id number] Sd clemente LIZ [address] [place] [address] [facility] 2022-05-27 2022-05-27 Telephone [facility] 1.2.847.686 [id number] Univers 00:00:00 00:00:00 Marcial HEALTH 350.1.13.10 it y of [place] 4.2.7.2.686 Branden as VIKTOR?BLEA [id number] Sd clemente LIZ [address] [place] [address] [facility] 2022-05-27 2022-05-27 Telephone [facility] 1.2.370.311 [id number] Univers 00:00:00 00:00:00 Marcial HEALTH 350.1.13.10 it y of [place] 4.2.7.2.686 Branden as VIKTOR?BLEA [id number] Sd clemente LIZ [address] [place] [address] [facility] 2022-05-26 2022-05-26 Field Property Loss Specialist Lab, Ang - Db [facility] 1.2.840.1 14 [id number] Univers 07:30:00 07:45:00 Visit Rinku Marcial [facility] 350.1.13.10 ity of [place] 4.2.7.2.686 Branden as VIKTOR?BLEA [id number] Sd clemente LIZ [address] [facility] [facility] 2022-05-26 2022-05-26 Outpatient R RINKU [facility] [id number] Univers 07:30:00 07:30:00 MARCIAL carroll [facility] 2022-05-25 2022-05-25 Outpatient R RINKU [facility] [id number] Univers 14:00:00 14:55:12 MARCIAL carroll [facility] 2022-05-25 2022-05-25 Office [facility] 1.2.840.114 [id number] Univers 14:00:00 14:55:12 Visit Marcial HEALTH 350.1.13.10 it y of [place] 4.2.7.2.686 Branden as VIKTOR?BLEA [id number] Sd clemente LANDON [address] [facility] 2022-05-25 2022-05-25 Outpatient R RINKU [facility] [id number] Univers 14:00:00 14:55:12 MARCIAL carroll [facility] 2022-05-25 2022-05-25 Outpatient R RINKU [facility] [id number] Univers 14:00:00 14:00:00 MARCIAL carroll [facility] 2022-05-23 2022-05-23 Outpatient R ARIS [facility] [id number] Univers 11:20:00 11:47:56 YAMINI leigh [facility] 2022-05-23 2022-05-23 [facility] 1.2.840.114 [id number] Univers 11:20:00 11:47:56 [address] [facility] 350.1.13.10 it y of [facility] 4.2.7.2.686 Branden as VIKTOR?BLEA [id number] Sd carriepaul LIZ [address] [facility] 2022-05-20 2022-05-20 [facility] 1.2.797.607 [id number] 1550 Univers 17:49:00 23:59:00 Encounter Arnoldo HEALTH 350.1.13.10 ity of [place] 4.2.7.2.686 Branden as VIKTOR?BLEA [id number] Sd dicpaul LIZ [address] [facility] 2022-05-20 2022-05-20 Outpatient R [facility] [id number] Univers 17:31:41 17:48:00 ARNOLDO carroll o f [facility] 2022-05-20 2022-05-20 [facility] 1.2.470.463 [id number] Univers 17:31:41 17:48:00 Encounter [facility] 350.1.13.10 ity of [place] 4.2.7.2.686 Branden as VIKTOR?BLEA [phone] Sd clemente LIZ [address] MEDICAL OFFICE BUILDING 2022-05-20 2022-05-20 Urgent Susan, [facility] 1.2.840. 114 [id number] Univers 17:00:00 17:37:58 Care [facility] 350.1.13.10 ity of [place] 4.2.7.2.686 Branden as VIKTOR?BLEA [id number] Sd clemente LIZ [address] [facility] 2022-05-20 2022-05-20 Telephone [facility] 1.2.840.114 [id number] Univers 00:00:00 00:00:00 [facility] 350.1.13.10 i ty of [place] 4.2.7.2.686 Branden as VIKTOR?BLEA [id number] Sd clemente LIZ [address] [facility] 2022-05-20 2022-05-20 Telephone [facility] 1.2.823.868 [id number] Univers 00:00:00 00:00:00 [facility] 350.1.13.10 it y of [place] 4.2.7.2.686 Branden as VIKTOR?BLEA [id number] Sd clemente LIZ [address] [facility] 2022-05-18 2022-05-18 Outpatient [facility] [id number] Univers 16:00:00 16:43:58 MARCIAL ity of [facility] 2022-05-18 2022-05-18 Office [facility] 1.2.840.114 [id number] Univers 16:00:00 16:43:58 Visit [facility] 350.1.13.10 it y of [place] 4.2.7.2.686 Branden as VIKTOR?BLEA [id number] Sd clemente LIZ [address] MEDICAL OFFICE BUILDING 2022-04-272022-04-27 Outpatient R JOSIE [facility] [id number] Univers 13:45:00 15:24:22 RADHA ity of [facility] 2022-04-27 2022-04-27 Ancillary Paulina Velasquez [facility] 1.2.84 0.114 [id number] [facility] 13:45:00 15:24:22 Visit Radha Galindo 350.1.13.10 ity of [place] [id number] Sd dical NAL [address] [facility] 2022-04-15 2022-04-15 Ancillary Nick Vasquez [facility] 1.2.840. 114 [id number] Univers 14:30:00 15:15:00 Visit Radha Galindo 350.1.13.10 ity of [place] 4.2.7.2.[place] [id number] Sd dical NAL [address] [facility] 2022-04-02 2022-04-02 Outpatient GARYStoney, [facility] [id number] [address] [place] [address] 08:38:32 12:20:33 SHERICE cali of Medicin e 2022-03-31 2022-03-31 Ancillary Paulina Velasquez [facility] 1.2.84 0.114 [id number] Univers 10:15:00 11:00:00 Visit Radha Galindo 350.1.13.10 ity of [place] 4[place]2.[place].2.[place] [id number] Sd dical NAL [address] [facility] 2022-03-26 2022-03-26 Anc[address] Peres [facility] 1.2. 840.114 [id number] Univers 14:30:00 15:15:00 Visit Radha Galindo 350.1.13.10 ity of [place] 4[place]2.[place].2.[place] [id number] Sd dical NAL [address] [facility] 2022-03-24 2022-03-24 Ancillary Paulina Velasquez [facility] 1.2.84 0.114 [id number] Univers 14:30:00 15:15:00 Visit Radha Galindo 350.1.13.10 ity of [facility] 4.2.7.2.[place] [id number] Sd dicpaul NAL [address] [facility] 2022-03-16 2022-03-16 Outpatient R JOSIE [facility] [id number] Univers 10:15:00 11:11:20 RADHA carroll [facility] 2022-03-16 2022-03-16 Ancillary Paulina Velasquez [facility] 1.2.84 0.114 [id number] Univers 10:15:00 11:11:20 Visit Radha Galindo 350.1.13.10 ity of [facility] 4.2.7.2.[place] [id number] Sd clemente [facility] [address] [facility] 2022-02-23 2022-02-23 Office [facility] 1.2.840.114 [id number] Univers 09:00:00 09:30:00 Visit [facility] 350.1.13.10 it y of [place] 4.2.7.2.686 Branden as VIKTOR?BLEA [id number] Sd clemente [facility] [address] [facility] OFFICE BUILDING 2022-02-23 2022-02-23 Outpatient R JESUS [facility] [id number] Univers 09:00:00 09:00:00 STERLING glen [facility] 2022-02-20 2022-02-21 Emergency Praveen [facility] [id number] 19:32:00 01:26:00 [facility] 2022-02-20 2022-02-21 Emergency ER PRAVEEN [facility] Emergency [id number] SLE 19:32:00 01:26:00 [facility] 2022-02-20 2022-02-21 Emergency Praveen [facility] [id number] 19:32:00 01:26:00 [facility] 2022-02-20 2022-02-20 Outpatient ALEJANDRA ANTONIO [facility] [id number] [facility] 14:47:50 14:47:50 SHERICE cali of Medicin e 2022-02-20 2022-02-[address] [facility] 1.2.840.114 [id number] Univers 09:30:00 10:00:00 Visit Marcial HEALTH 350.1.13.10 it y of [facility] 4.2.7.2.686 Branden as VIKTOR?BLEA [id number] [address] [facility] 2022-02-20 2022-02-20 Outpatient R RINKU [facility] [id number] Univers 09:30:00 09:30:00 MARCIAL ity of [facility] 2022-02-20 2022-02-20 Telephone [facility] 1.2.012.537 [id number] Univers 00:00:00 00:00:00 Marcial HEALTH 350.1.13.10 it y of [place] 4.2.7.2.686 Branden as VIKTOR?BLEA [id number] [address] [facility] 2022-02-20 2022-02-20 Travel [facility] [id number] [facility] 00:[facility]:00 [facility] 2022-02-20 2022-02-20 Travel [facility] [id number] [facility] 00:[facility]:00 [facility] 2022-02-19 2022-02-19 Telephone Kamlesh [facility] PINKY 1.2.840.114 9 [id number] Univers 00:00:00 00:00:00 Health [place] 350.1.13.10 it y of [facility] 4.2.7.2.686 [place] [id number] [address] 2022-02-19 2022-02-[address] [facility] 1.2.844.066 [id number] Univers 00:00:00 00:00:00 Marcial HEALTH 350.1.13.10 it y of [facility] 4.2.7.2.686 Branden as VIKTOR?BLEA [phone] [address] MEDICAL OFFICE [facility] 2022-02-18 2022-02-18 Nurse PINKY Main [id number] Univers 00:00:00 00:00:00 Triage Ludwin HUDSON 350.1.13.10 it y of [facility] 4.2.7.2.686 [place]en as [id number] [address] 2022-02-18 2022-02-18 Nurse PINKY Main [id number] Univers 00:00:00 00:00:00 Triage Ludwin TREVIÑO 350.1.13.10 it y of [facility] 4.2.7.2.686 Branden as [id number] [address] 2022-02-18 2022-02-18 Nurse PINKY Núñez [id number] [id number] 22 [facility] 00:00:00 00:00:00 Triage Benjamin TREVIÑO 350.1.13.10 ity of [facility] 4.2.7.2.686 Branden as [id number] [address] 2022-02-17 2022-02-17 Outpatient ALEJANDRA [facility]FE [facility] [id number] [facility] 13:09:42 16:19:33 RANULFO cali of Medicin e 2022-02-17 2022-02-17 Telephone [facility] [id number] [id number] [facility] 00:00:00 00:00:00 [facility] 350.1.13.10 it y of [place] 4.2.7.2.686 Branden as VIKTOR?BLEA [id number] [address] MEDICAL OFFICE BUILDING 2022-02-16 2022-02-16 Outpatient Kurtis GALINDO [facility] [id number] Univers 09:30:00 09:30:00 [facility] 2022-02-16 2022-02-16 Outpatient Kurtis GALINDO [facility] [id number] Univers 09:30:00 09:30:00 RADHA [facility] 2022-02-16 2022-02-16 Outpatient Kurtis GALINDO [facility] [id number] Univers 09:30:00 09:30:00 RADHA [facility] 2022-02-09 2022-02-09 Outpatient ALEJANDRA WOLFE [facility] [id number] [facility] 08:27:50 12:25:31 RANULFO cali of Medicin e 2022-02-06 2022-02-06 Outpatient Kurtis [facility] [id number] Univers 00:00:00 00:00:00 IDANIA carroll [facility] 2022-02-06 2022-02-06 Outpatient Kurtis [facility] [id number] Univers 00:00:00 00:00:00 IDANIA carroll [facility] 2022-02-05 2022-02-[address] [facility] [id number] Univers 00:00:00 00:00:00 Marcial HEALTH 350.1.13.10 it y of [place] 4.2.7.2.686 Branden as VIKTOR?BLEA [id number] [address] OFFICE BUILDING 2022-02-04 2022-02-04 [facility] [id number] [id number] Univers 00:00:00 00:00:00 Idania Marroquin HEALTH 350.1.13.10 i ty of [place]7.2.[place] [id number] [address] OFFICE BUILDING 2022-02-03 2022-02-03 [facility] [id number] Univers 00:00:00 00:00:00 IDANIA carroll [facility] 2022-02-03 2022-02-03 Outpatient Kurtis [facility] [id number] Univers 00:00:00 00:00:00 IDANIA [facility]roll [facility] [facility] 2022-01-30 2022-01-30 Telephone [facility] 1.2.840.114 [id number] Univers 00:00:00 00:00:00 Idania Marroquin HEALTH 350.1.13.10 i [place] [phone] [address] OFFICE BUILDING 2022-01-28 2022-01-28 Outpatient [facility] [id number] Univers 11:30:00 12:02:51 IDANIA carroll [facility] 2022-01-28 2022-01-28 Office [facility] 1.2.150.937 [id number] Univers 11:30:00 12:02:51 Visit Idania Marroquin HEALTH 350.1.13.10 i [place] [id number] [address] OFFICE BUILDING 2022-01-19 2022-01-[address] [facility] 1.2.933.989 [id number] Univers 00:00:00 00:00:00 Marcial HEALTH 350.1.13.10 it y of [facility] 4.2.7.2.686 Branden as VIKTOR?BLEA [id number] [address] [facility] 2022-01-13 2022-01-13 Outpatient [facility] [id number] Univers 13:30:00 14:14:35 MARCIAL itleigh [facility] 2022-01-13 2022-01-13 Office [facility] 1.2.840.114 [id number] Univers 13:30:00 14:14:35 Visit Marcial HEALTH 350.1.13.10 it y of [place] 4.2.7.2.686 Branden as VIKTOR?BLEA [phone] [address] [facility] 2021-12-29 2021-12-29 Emergency X [facility] ERT [id number] Univers 14:55:00 16:47:00 FAUSTINO ity [facility] 2021-12-29 2021-12-29 [facility] 1.2.840.114 [id number] Univers 14:55:00 16:47:00 Faustino B [place] 350.1.13.10 i ty of [place] [phone] [place] 8[address] 2021-12-29 2021-12-29 Telephone [facility] 1.2.840.114 [id number] Univers 00:00:00 00:00:00 Wondiful A HEALTH 350.1.13.10 ity of [place] 4.2.7.2.686 Branden as VIKTOR?BLEA [id number] [address] [facility] 2021-12-22 2021-12-22 Orders Doctor PINKY 1.2.840.114 [id number] Univers 00:00:00 00:00:00 Only Unassigned, HUDSON 350.1.13.10 ity of [place] [facility] 4.2.7.2.686 Branden as [id number] [address] 2021-12-10 2021-12-10 Orders Doctor PINKY 1.2.840.114 [id number] Univers 00:00:00 00:00:00 Only Unassigned, HUDSON 350.1.13.10 ity of [place] [facility] 4.2.7.2.686 Branden as [id number] [address] 2021-12-01 2021-12-[address] [facility] 1.2.840.114 [id number] Univers 00:00:00 00:00:00 Parminder ALMAZAN 350.1.13.10 ity of [place].2.[place] [id number] Sd dical NAL 085 [facility] 2021-11-19 2021-11-19 Outpatient R PARMINDER AGRAWAL [facility] [id number] Univers 14:40:00 14:40:00 PARMINDER AGRAWAL [facility] 2021-11-13 2021-11-13 Field Property Loss Specialist 2, Adc Lab [facility] 1.2.840.114 [id number] Univers 11:30:00 11:30:00 Visit John Manzo 350.1.1 3.10 ity [facility] 4.2.7.2.[place] [phone] Sd dical NAL 353 [facility] 2021-11-13 2021-11-13 Outpatient R HELEN [facility] [id number] Univers 11:30:00 10:14:46 JOHN Cali [facility] 2021-11-12 2021-11-[address] [facility] 1.2.505.137 [id number] Univers 14:40:00 15:00:00 Visit Parminder ALMAZAN 350.1.13.10 ity [facility] 4.2.7.2.[place] [facility] [phone] Sd dical NAL 085 [facility] 2021-11-12 2021-11-12 Outpatient R PARMINDER AGRAWAL [facility] [id number] Univers 14:40:00 14:40:00 ATAPARMINDER RIVAS ity of [facility] 2021-11-06 2021-11-[address] [facility] 1.2.840.114 [id number] Univers 00:00:00 00:00:00 Management Wondiful A HEALTH 350.1.13.10 ity of [place] 4.2.7.2.686 Branden as VIKTOR?BLEA [phone] [address] MEDICAL OFFICE [facility] 2021-11-05 2021-11-05 Outpatient R MAR [facility] [id number] Univers 17:03:51 23:59:00 WONDIFUL ity o f [facility] 2021-11-05 2021-11-05 [facility] 1.2.578.382 [id number] Univers 17:03:51 23:59:00 Encounter Wondiful A [place] 350.1.13.10 ity of [place]2.7.2.[place] [id number] [facility] [address] 2021-11-05 2021-11-[address] [facility] 1.2.840.114 [id number] Univers 00:00:00 00:00:00 Management Wondiful A HEALTH 350.1.13.10 ity of [place] 4.2.7.2.686 Branden as VIKTOR?BLEA [phone] [address] OFF[address] [facility] 2021-11-04 2021-11-04 Field Property Loss Specialist Huong, Anthony Sleep Lab [facility] 1.2 .840.114 [id number] Univers 10:00:00 10:15:00 Visit Parminder Agrawal T [place] 350.1.13. 10 ity of [place] 4.2.7.2.[place] [phone] [facility] [address] 2021-11-04 2021-11-04 Outpatient R PARMINDER AGRAWAL [facility] [id number] Univers 10:00:00 10:00:00 RIKYPARMINDER RIVAS ity [facility] 2021-11-04 2021-11-04 Outpatient R RIKYASHLEY RIVASROSA [facility] [id number] Univers 10:00:00 10:00:00 RIKYASHLEY RIVASROSA ity [facility] 2021-10-29 2021-10-[address] [facility] 1.2.840.114 [id number] Univers 00:00:00 00:00:00 Management Wondiful A HEALTH 350.1.13.10 ity of [place] 4.2.7.2.686 Branden as VIKTOR?BLEA [id number] [address] [facility] 2021-10-23 2021-10-[address] [facility] 1.2.840.114 [id number] Univers 00:00:00 00:00:00 Wondiful A HEALTH 350.1.13.10 ity of [place] 4.2.7.2.686 Branden as VIKTOR?BLEA [phone] [address] [facility] 2021-10-23 2021-10-[address] [facility] 1.2.840.114 [id number] Univers 00:00:00 00:00:00 Secure Msg Unassigned, HEALTH 350.1.13.10 ity of [place] 4.2.7.2.686 Branden as VIKTOR?BLEA [phone] [address] [facility] 2021-10-22 2021-10-[address] [facility] 1.2.840.114 [id number] Univers 00:00:00 00:00:00 Wondiful A HEALTH 350.1.13.10 ity of [place] 4.2.7.2.686 Branden as VIKTOR?BLEA [phone] [address] [facility] 2021-10-21 2021-10-21 Field Property Loss Specialist Lab, Ang - Db [facility] 1.2.840.1 [id number] Univers 12:45:00 13:00:00 Visit Louis Manuel A HEALTH 350.1.13.1 0 ity of [place] 4.2.7.2.686 Branden as VIKTOR?BLEA [phone] Me clemente LIZ [address] MEDICAL OFFICE BUILDING 2021-10-21 2021-10-21 Outpatient R MAR [facility] [id number] Univers 11:30:00 12:41:54 WONDIFUL ity o f [facility] 2021-10-21 2021-10-21 Office [facility] 1.2.840.114 [id number] Univers 11:30:00 12:41:54 Visit Wondiful A HEALTH 350.1.13.10 ity [facility] 4.2.7.2.686 Branden as VIKTOR?BLEA [phone] Sd clemente LANDON [address] MEDICAL OFFICE BUILDING 2021-10-21 2021-10-21 Outpatient R MAR [facility] [id number] Univers 11:30:00 12:41:54 WONDIFUL ity o f [facility] 2021-10-21 2021-10-21 Orders Doctor VANCE 1.2.840.114 [id number] Univers 00:00:00 00:00:00 Only Unassigned, HUDSON 350.1.13.10 [facility] 4.2.7.2.686 Branden as [phone] [facility] [address] 2021-10-08 2021-10-08 [facility] [id number] Univers 09:00:00 09:00:00 WONDIFUL ity o f [facility] 2021-09-23 2021-09-23 Emergency X [facility] ERT [id number] Univers 15:27:00 18:23:00 KELLY ity of [facility] 2021-09-23 2021-09-23 Emergency [facility] 1.2.550.798 [id number] Univers 15:27:00 18:23:00 Kelly ALMAZAN 350.1.13.10 ity of [facility] 4.2.7.2.[place] [id number] [facility] [address] 2021-09-23 2021-09-23 Orders Doctor VANCE 1.2.840.114 [id number] Univers 00:00:00 00:00:00 Only Unassigned, HUDSON 350.1.13.10 [facility] 4.2.7.2.686 Branden as [phone] [facility] [address] 2021-08-19 2021-08-19 Outpatient R MAR [facility] [id number] Univers 13:30:00 13:30:00 WONDIFUL ity o f [facility] 2021-06-11 2021-06-11 Laboratory Only, Ang Db Test [facility] 1.2.8 40.114 [id number] Univers 11:33:26 11:43:26 Only Eliecer Nicol [facility] 350.1.13.10 ity of [place] 4.2.7.2.686 Branden as Viktor?Blea [phone] [address] Medical Office Building 2021-06-11 2021-06-11 Outpatient R ELIECER [facility] [id number] Univers 11:15:00 11:15:00 NICOL ity [facility] 2021-01-15 2021-01-15 Outpatient R ANISHA [facility] [id number] Univers 15:00:00 15:00:00 FRANCES ity [facility] 2020-12-18 2020-12-18 Outpatient [facility] [id number] Univers 15:00:00 15:00:00 ity [facility] 2020-10-01 2020-10-01 Emergency Zachary Mcnamara [facility] 1.2.840.114 [id number] 15:38:00 17:19:00 Pamela Almazan 350.1.13.10 [place] 4.2.7.2.686 [place] [id number] [facility] 2020-10-01 2020-10-01 Emergency Zachary Mcnamara [facility] 1.2.840.114 [id number] Univers 15:38:00 17:19:00 Pamela Almazan 350.1.13.10 i ty of [place].2.[place] [phone] [address] 2020-10-01 2020-10-01 Orders Doctor VANCE 1.2.840.114 [id number] 00:00:00 00:00:00 Only Unassigned, [place] 350.1.13.10 [place] [facility] 4.2.7.2.686 [id number] 009 2020-10-01 2020-10-01 Orders Doctor PINKY 1.2.840.114 [id number] Univers 00:00:00 00:00:00 Only Unassigned, HUDSON 350.1.13.10 ity of [place] [facility] 4.2.7.2.686 Branden as [id number] [address] 2020-04-23 2020-07-03 Laboratory Only, Web [facility] 1.2.840.114 [id number] 09:22:46 08:51:45 Only Test Health 350.1.13.10 Specialty 4.2.7.2.686 Care - [phone] [place] [address] 2020-04-23 2020-07-03 Laboratory Only, Web Test [facility] 1.2.840. 114 [id number] Univers 09:22:46 08:51:45 Only Unknown, Attending Health 350.1.13.10 ity of [place].2.[place] - [phone] [address] 2020-04-23 2020-04-23 Outpatient R [facility] [id number] Univers 09:30:00 09:30:00 ity of [facility] 2020-03-05 2020-03-05 Telephone Aris NYJUAN 1.2.840.114 [id number] Univers 00:00:00 00:00:00 Rania Health 350.1.13.10 it y of [place] 4.2.7.2.686 Branden as Professio [phone] [facility] [address] 2020-03-05 2020-03-05 Telephone Julia Laws 1.2.840.114 [id number] Univers 00:00:00 00:00:00 HUDSON 350.1.13.10 it y of HOSPITAL 4.2.7.2.686 Branden as [id number] [address] 2020-03-04 2020-03-04 Urgent Pob1, Acute Care Clinic [facility] 1. 2.840.114 [id number] Univers 15:43:04 16:06:56 Care [facility] 350.1.13.10 ity [facility] 4.2.7.2.686 Branden as Prashanthio [phone] Sd dical [facility] [address] 2020-03-04 2020-03-04 Outpatient R [facility] [id number] Univers 15:40:00 15:40:00 ity [facility] 2020-02-08 2020-02-08 Outpatient [facility] [id number] 2-2 [facility] 00:00:00 00:00:00 [id number] 2019-10-28 2019-10-29 Outpt Diag nullFlavo [facility] [id number] Memoria 22:20:00 05:59:00 Services r Outpatient 00 l [facility] Results Test Description Test Time Test Comments Results Result Comments Source HEMATOLOGY 2022-07-17 08:15:00 Test Item Value Reference Range Interpretation Comme nts Lymphocytes (test code = Lymphocytes) 13.8 20.0-40.0 [id number] 08:15:00 Test Item Value Reference Range Interpretation Comments Monocytes (test code = Monocytes) 13.2 2.0-12.0 [facility] CentralMcrqwzgAFZQQMGAVG5663-55-53 08:15:00 Test Item Value Reference Range Interpretation Comments Eosinophils (test code = 1.3 See_Comment [A utomated message] The Eosinophils) system which ge nerated this result tra nsmitted reference range : <=4.0. The reference r ariadna was not used to int erpret this result as normal/abnormal . [facility] [id number] 08:15:00 Test Item Value Reference Range Interpretation Comments Basophils (test code = 0.7 See_Comment [Aut omated message] The Basophils) system which ge nerated this result tra nsmitted reference range : <=1.0. The reference r ariadna was not used to int erpret this result as normal/abnormal . [place] 149492-10-07 08:15:00 Test Item Value Reference Range Interpretation Comments Neutrophils # (test code = Neutrophils 6.6 1.5-8.1 #) [place] 149492-10-07 08:15:00 Test Item Value Reference Range Interpretation Comments Lymphocytes # (test code = Lymphocytes 1.3 1.0-5.5 #) [facility] [id number] 08:15:00 Test Item Value Reference Range Interpretation Comments Monocytes # (test code 1.2 See_Comment [Aut omated message] The = Monocytes #) system which generated this result tra nsmitted reference range : <=0.8. The reference r ariadna was not used to int erpret this result as normal/abnormal . [facility] [id number] 08:15:00 Test Item Value Reference Range Interpretation Comments Eosinophils # (test code 0.1 See_Comment [A utomated message] The = Eosinophils #) system whic h generated this result tra nsmitted reference range : <=0.5. The reference r ariadna was not used to int erpret this result as normal/abnormal . [facility] CentralWadkttsXSYLCLJTXA8123-45-06 08:15:00 Test Item Value Reference Range Interpretation Comments Basophils # (test code 0.1 See_Comment [Aut omated message] The = Basophils #) system which generated this result tra nsmitted reference range : <=0.2. The reference r ariadna was not used to int erpret this result as normal/abnormal . [facility] CentralUggwgviCZEQNOOSVC2917-03-90 08:15:00 Test Item Value Reference Range Interpretation Comments WBC (test code = WBC) 9.3 3.7-10.4 [facility] Central[id number] 08:15:00 Test Item Value Reference Range Interpretation Comments RBC (test code = RBC) 3.17 4.20-5.40 [place] 149492-10-07 08:15:00 Test Item Value Reference Range Interpretation Comments Hgb (test code = Hgb) 9.3 12.0-16.0 [place] 149492-10-07 08:15:00 Test Item Value Reference Range Interpretation Comments Hct (test code = Hct) 28.3 36.0-48.0 [place] 149492-10-07 08:15:00 Test Item Value Reference Range Interpretation Comments MCV (test code = MCV) 89.2 80.0-98.0 [place] 149492-10-07 08:15:00 Test Item Value Reference Range Interpretation Comments MCH (test code = MCH) 29.3 pg 27.0-31.0 [place] [address]-10-07 08:15:00 Test Item Value Reference Range Interpretation Comments MCHC (test code = MCHC) 32.9 32.0-36.0 [place] [address]-10-07 08:15:00 Test Item Value Reference Range Interpretation Comments RDW (test code = RDW) 14.4 11.5-14.5 [place] [address]-10-07 08:15:00 Test Item Value Reference Range Interpretation Comments Platelet (test code = Platelet) 343 133-450 [place] 149492-10-07 08:15:00 Test Item Value Reference Range Interpretation Comments MPV (test code = MPV) 6.4 7.4-10.4 [place] 388142-10-07 08:15:00 Test Item Value Reference Range Interpretation Comments Glucose Lvl (test code = Glucose Lvl) 107 70-99 [place] 388142-10-07 08:15:00 Test Item Value Reference Range Interpretation Comments BUN (test code = BUN) 5 7-22 [place] 388142-10-07 08:15:00 Test Item Value Reference Range Interpretation Comments Creatinine Lvl (test code = Creatinine 0.68 0.50-1.40 Lvl) [place] 388142-10-07 08:15:00 Test Item Value Reference Range Interpretation Comments Sodium Lvl (test code = Sodium Lvl) 137 135-145 [place] 388142-10-07 08:15:00 Test Item Value Reference Range Interpretation Comments Potassium Lvl (test code = Potassium 4.0 3.5-5.1 Lvl) [place] 388142-10-07 08:15:00 Test Item Value Reference Range Interpretation Comments Chloride Lvl (test code = Chloride Lvl) 103 95-109 [place] 388142-10-07 08:15:00 Test Item Value Reference Range Interpretation Comments CO2 (test code = CO2) 27 24-32 [place] 388142-10-07 08:15:00 Test Item Value Reference Range Interpretation Comments Calcium Lvl (test code = Calcium Lvl) 8.4 8.5-10.5 [place] 388142-10-07 08:15:00 Test Item Value Reference Range Interpretation Comments AGAP (test code = AGAP) 11.0 10.0-20.0 [facility]2022-10-07 08:15:00 Test Item Value Reference Range Interpretation Comments eGFR (test code = eGFR) 100 [facility]-75 08:15:00 Test Item Value Reference Range Interpretation Comments Segs (test code = Segs) 71.0 45.0-75.0 [facility] [id number] 15:24:00 Test Item Value Reference Range Interpretation Comments HS Troponin I 1 Hr (test code = HS 4 Troponin I 1 Hr) [facility] [id number] 15:24:00 Test Item Value Reference Range Interpretation Comments HS Troponin I 0 to 1 Hour Delta (test -1 code = HS Troponin I 0 to 1 Hour Delta) [facility] [id number] 14:22:00 Test Item Value Reference Range Interpretation Comments HS Troponin I Baseline (test code = HS 5 Troponin I Baseline) [facility]2022-10-06 07:28:00 Test Item Value Reference Range Interpretation Comments Glucose Lvl (test code = Glucose Lvl) 103 70-99 [facility]2022-10-06 07:28:00 Test Item Value Reference Range Interpretation Comments BUN (test code = BUN) 9 7-22 [facility]2022-10-06 07:28:00 Test Item Value Reference Range Interpretation Comments Creatinine Lvl (test code = Creatinine 0.65 0.50-1.40 Lvl) [facility]2022-10-06 07:28:00 Test Item Value Reference Range Interpretation Comments Sodium Lvl (test code = Sodium Lvl) 133 135-145 [facility]2022-10-06 07:28:00 Test Item Value Reference Range Interpretation Comments Potassium Lvl (test code = Potassium 3.8 3.5-5.1 Lvl) [facility]2022-10-06 07:28:00 Test Item Value Reference Range Interpretation Comments Chloride Lvl (test code = Chloride Lvl) 102 95-109 [facility]2022-10-06 07:28:00 Test Item Value Reference Range Interpretation Comments CO2 (test code = CO2) 24 24-32 [place] 388142-10-06 07:28:00 Test Item Value Reference Range Interpretation Comments Calcium Lvl (test code = Calcium Lvl) 8.3 8.5-10.5 [place] 388142-10-06 07:28:00 Test Item Value Reference Range Interpretation Comments AGAP (test code = AGAP) 10.8 10.0-20.0 [place] 388142-10-06 07:28:00 Test Item Value Reference Range Interpretation Comments eGFR (test code = eGFR) 101 [facility] [id number] 07:28:00 Test Item Value Reference Range Interpretation Comments WBC (test code = WBC) 9.2 3.7-10.4 [place] 149492-10-06 07:28:00 Test Item Value Reference Range Interpretation Comments RBC (test code = RBC) 3.25 4.20-5.40 [place] 149492-10-06 07:28:00 Test Item Value Reference Range Interpretation Comments Hgb (test code = Hgb) 9.5 12.0-16.0 [place] 149492-10-06 07:28:00 Test Item Value Reference Range Interpretation Comments Hct (test code = Hct) 28.9 36.0-48.0 [place] 149492-10-06 07:28:00 Test Item Value Reference Range Interpretation Comments MCV (test code = MCV) 89.1 80.0-98.0 [place] 149492-10-06 07:28:00 Test Item Value Reference Range Interpretation Comments MCH (test code = MCH) 29.3 pg 27.0-31.0 [place] 149492-10-06 07:28:00 Test Item Value Reference Range Interpretation Comments MCHC (test code = MCHC) 32.8 32.0-36.0 [place] 149492-10-06 07:28:00 Test Item Value Reference Range Interpretation Comments RDW (test code = RDW) 14.4 11.5-14.5 [facility] [id number] 07:28:00 Test Item Value Reference Range Interpretation Comments Platelet (test code = Platelet) 319 133-450 [place] 149492-10-06 07:28:00 Test Item Value Reference Range Interpretation Comments MPV (test code = MPV) 6.8 7.4-10.4 [place] [address]-10-06 07:28:00 Test Item Value Reference Range Interpretation Comments Neutrophils # (test code = Neutrophils 6.3 1.5-8.1 #) [place] [address]-10-06 07:28:00 Test Item Value Reference Range Interpretation Comments Lymphocytes # (test code = Lymphocytes 1.0 1.0-5.5 #) [place] [address]-10-06 07:28:00 Test Item Value Reference Range Interpretation Comments Monocytes # (test code 1.9 See_Comment [Aut omated message] The = Monocytes #) system which generated this result tra nsmitted reference range : <=0.8. The reference r ariadna was not used to int erpret this result as normal/abnormal . [place] [address]-10-06 07:28:00 Test Item Value Reference Range Interpretation Comments Segs (test code = Segs) 67.0 45.0-75.0 [place] [address]-10-06 07:28:00 Test Item Value Reference Range Interpretation Comments Bands (test code = 1.0 See_Comment [Automat ed message] The Bands) system which ge nerated this result transmit rhea reference range : <=11.0. The reference r ariadna was not used to interpr et this result as jeannie l/abnormal. [place] [address]-10-06 07:28:00 Test Item Value Reference Range Interpretation Comments Lymphocytes (test code = Lymphocytes) 11.0 20.0-40.0 [place] [address]-10-06 07:28:00 Test Item Value Reference Range Interpretation Comments Monocytes (test code = Monocytes) 21.0 2.0-12.0 [place] [address]-10-06 07:28:00 Test Item Value Reference Range Interpretation Comments Atypical Lymphs (test code = Atypical 0.0 Lymphs) [place] [address]-10-06 07:28:00 Test Item Value Reference Range Interpretation Comments RBC Morph (test code = Normal (07/16/22 2:28 RBC Morph) AM) [place] [address]-10-06 07:28:00 Test Item Value Reference Range Interpretation Comments Plt Morph (test code = Clumped (07/16/22 2:28 Plt Morph) AM) [facility]2022-10-05 05:21:00 Test Item Value Reference Range Interpretation Comments Glucose Lvl (test code = Glucose Lvl) 118 70-99 [place] 388142-10-05 05:21:00 Test Item Value Reference Range Interpretation Comments BUN (test code = BUN) 15 7-22 [place] 388142-10-05 05:21:00 Test Item Value Reference Range Interpretation Comments Creatinine Lvl (test code = Creatinine 0.88 0.50-1.40 Lvl) [facility]2022-10-05 05:21:00 Test Item Value Reference Range Interpretation Comments Sodium Lvl (test code = Sodium Lvl) 130 135-145 [place] 388142-10-05 05:21:00 Test Item Value Reference Range Interpretation Comments Potassium Lvl (test code = Potassium 3.9 3.5-5.1 Lvl) [place] 388142-10-05 05:21:00 Test Item Value Reference Range Interpretation Comments Chloride Lvl (test code = Chloride Lvl) 100 95-109 [place] 388142-10-05 05:21:00 Test Item Value Reference Range Interpretation Comments CO2 (test code = CO2) 22 24-32 [place] 388142-10-05 05:21:00 Test Item Value Reference Range Interpretation Comments Calcium Lvl (test code = Calcium Lvl) 8.4 8.5-10.5 [facility]2022-10-05 05:21:00 Test Item Value Reference Range Interpretation Comments AGAP (test code = AGAP) 11.9 10.0-20.0 [place] 388142-10-05 05:21:00 Test Item Value Reference Range Interpretation Comments eGFR (test code = eGFR) 76 [place] 149492-10-05 05:21:00 Test Item Value Reference Range Interpretation Comments WBC (test code = WBC) 10.8 3.7-10.4 [place] 149492-10-05 05:21:00 Test Item Value Reference Range Interpretation Comments RBC (test code = RBC) 3.50 4.20-5.40 [place] 149492-10-05 05:21:00 Test Item Value Reference Range Interpretation Comments Hgb (test code = Hgb) 10.4 12.0-16.0 [facility]uhobyOKWCEFJKPC8415-11-80 05:21:00 Test Item Value Reference Range Interpretation Comments Hct (test code = Hct) 30.7 36.0-48.0 [facility] CentralSdeeqldKWVFAZKQZQ1449-67-74 05:21:00 Test Item Value Reference Range Interpretation Comments MCV (test code = MCV) 87.7 80.0-98.0 [facility] CentralOsythcpKERZUOXMYK7835-98-72 05:21:00 Test Item Value Reference Range Interpretation Comments MCH (test code = MCH) 29.7 pg 27.0-31.0 [facility] CentralKpckaxbTWEPYOPXSB4790-07-10 05:21:00 Test Item Value Reference Range Interpretation Comments MCHC (test code = MCHC) 33.9 32.0-36.0 [facility] CentralKalffzdJWNVVTFHQQ8570-88-01 05:21:00 Test Item Value Reference Range Interpretation Comments RDW (test code = RDW) 14.6 11.5-14.5 [facility] CentralSpkanhyBHQVXFESUO6691-62-48 05:21:00 Test Item Value Reference Range Interpretation Comments Platelet (test code = Platelet) 360 133-450 [facility] CentralZsxcewrGCCZNPVKOF6555-16-73 05:21:00 Test Item Value Reference Range Interpretation Comments MPV (test code = MPV) 6.7 7.4-10.4 [facility] CentralDjgchoxWLCACGXYWA7096-30-01 05:21:00 Test Item Value Reference Range Interpretation Comments Segs (test code = Segs) 77.3 45.0-75.0 [facility] CentralAgasbjpGJKCZIEYKE3179-93-01 05:21:00 Test Item Value Reference Range Interpretation Comments Lymphocytes (test code = Lymphocytes) 10.0 20.0-40.0 [facility] CentralRqujiglPHLCCUNWEB1133-73-16 05:21:00 Test Item Value Reference Range Interpretation Comments Monocytes (test code = Monocytes) 12.5 2.0-12.0 [facility] CentralZhdajtnDYQBEJWKXW1464-67-69 05:21:00 Test Item Value Reference Range Interpretation Comments Eosinophils (test code = 0.1 See_Comment [A utomated message] The Eosinophils) system which ge nerated this result tra nsmitted reference range : <=4.0. The reference r ariadna was not used to int erpret this result as normal/abnormal . [place] 149492-10-05 05:21:00 Test Item Value Reference Range Interpretation Comments Basophils (test code = 0.1 See_Comment [Aut omated message] The Basophils) system which ge nerated this result tra nsmitted reference range : <=1.0. The reference r ariadna was not used to int erpret this result as normal/abnormal . [facility] CentralYbnvvsgNKPJBOBYUZ1081-37-59 05:21:00 Test Item Value Reference Range Interpretation Comments Neutrophils # (test code = Neutrophils 8.4 1.5-8.1 #) [facility] CentralHhgrvzbPLGUMAEQLX2529-99-35 05:21:00 Test Item Value Reference Range Interpretation Comments Lymphocytes # (test code = Lymphocytes 1.1 1.0-5.5 #) [facility] CentralLekwrysCUCOZPSRZD4877-54-12 05:21:00 Test Item Value Reference Range Interpretation Comments Monocytes # (test code 1.4 See_Comment [Aut omated message] The = Monocytes #) system which generated this result tra nsmitted reference range : <=0.8. The reference r ariadna was not used to int erpret this result as normal/abnormal . [facility]SshvebsIUYDUQEZJR9041-39-08 12:21:00 Test Item Value Reference Range Interpretation Comments Coronavirus (COVID-19) Not Detected (07/13/22 CATALINA (test code = 7:21 AM) Coronavirus (COVID-19) CATALINA) [facility] CenterBACTERIAL - [id number] 13:49:00 Test Item Value Reference Range Interpretation Comments MRSA by PCR (test Negative (07/02/22 8:49 code = MRSA by PCR) AM) [facility] CentralCympxliULXQDETHYU5274-83-29 13:49:00 Test Item Value Reference Range Interpretation Comments PT (test code = PT) 13.0 s 12.0-14.7 [facility] CentralXzpsqewICBFXXPEYQ4150-85-56 13:49:00 Test Item Value Reference Range Interpretation Comments INR (test code = INR) 0.99 1 0.85-1.17 [facility] CentralPimmbzdZLKWDVAOAZ6134-00-78 13:49:00 Test Item Value Reference Range Interpretation Comments PTT (test code = PTT) 35.7 s 22.9-35.8 [facility] CentralVvpnmgrFZIUUXHPPX5754-03-92 13:49:00 Test Item Value Reference Range Interpretation Comments Eosinophils (test code = 3.6 See_Comment [A utomated message] The Eosinophils) system which ge nerated this result tra nsmitted reference range : <=4.0. The reference r ariadna was not used to int erpret this result as normal/abnormal . [facility] CenterUanyhodSQSEVAKOFX5378-18-41 13:49:00 Test Item Value Reference Range Interpretation Comments Basophils (test code = 0.6 See_Comment [Aut omated message] The Basophils) system which ge nerated this result tra nsmitted reference range : <=1.0. The reference r ariadna was not used to int erpret this result as normal/abnormal . [facility]TzsmeaiBTFXTVCBZY1222-16-21 13:49:00 Test Item Value Reference Range Interpretation Comments Eosinophils # (test code 0.2 See_Comment [A utomated message] The = Eosinophils #) system whic h generated this result tra nsmitted reference range : <=0.5. The reference r ariadna was not used to int erpret this result as normal/abnormal . [facility] [id number] 13:49:00 Test Item Value Reference Range Interpretation Comments Hgb A1C (test code = Hgb A1C) 6.3 [facility] AND [id number] 13:49:00 Test Item Value Reference Range Interpretation Comments UA Color (test code = Yellow *NA*(07/02/22 UA Color) 8:49 AM) [facility] AND [id number] 13:49:00 Test Item Value Reference Range Interpretation Comments UA Turbidity (test code = Clear (07/02/22 8:49 UA Turbidity) AM) [facility] AND [id number] 13:49:00 Test Item Value Reference Range Interpretation Comments UA Spec Grav (test code = UA Spec 1.010 1 Grav) [facility] AND [id number] 13:49:00 Test Item Value Reference Range Interpretation Comments UA pH (test code = UA pH) 6.0 1 5.0-8.0 [facility] AND [id number] 13:49:00 Test Item Value Reference Range Interpretation Comments UA Protein (test code = UA Negative mg/dL Protein) [facility] AND [id number] 13:49:00 Test Item Value Reference Range Interpretation Comments UA Glucose (test code = UA Negative mg/dL Glucose) [facility] AND [id number] 13:49:00 Test Item Value Reference Range Interpretation Comments UA Ketones (test code = UA Negative mg/dL Ketones) [facility] AND [id number] 13:49:00 Test Item Value Reference Range Interpretation Comments UA Bili (test code = Negative *NA*(07/02/22 UA Bili) 8:49 AM) [facility] AND [id number] 13:49:00 Test Item Value Reference Range Interpretation Comments UA Blood (test code = Negative (07/02/22 8:49 UA Blood) AM) [facility] AND [id number] 13:49:00 Test Item Value Reference Range Interpretation Comments UA Urobilinogen (test code = UA 0.2 0.1-1.0 Urobilinogen) [facility] AND [id number] 13:49:00 Test Item Value Reference Range Interpretation Comments UA Nitrite (test code Negative (07/02/22 8:49 = UA Nitrite) AM) [facility] AND [id number] 13:49:00 Test Item Value Reference Range Interpretation Comments UA Leuk Est (test Negative (07/02/22 8:49 code = UA Leuk Est) AM) [facility] AND [id number] 13:49:00 Test Item Value Reference Range Interpretation Comments UA Sq Epi (test code = UA Sq Occasional /LPF Epi) [facility] AND [id number] 13:49:00 Test Item Value Reference Range Interpretation Comments UA WBC (test code = 4 See_Comment [Automa rhea message] The UA WBC) system which ge nerated this result transmit rhea reference range : <=5. The reference range was not used to interpr et this result as jeannie l/abnormal. [facility] AND [id number] 13:49:00 Test Item Value Reference Range Interpretation Comments UA RBC (test code = no gt See_Comment [Automa rhea message] The UA RBC) system which ge nerated this result transmit rhea reference range : <=2. The reference range was not used to interpr et this result as jeannie l/abnormal. [facility] CenterCulture: [id number] 13:49:00 Test Item Value Reference Range Interpretation Comments Culture: Urine (test <10,000 CFU/mL Skin code = Culture: Urine) [facility] Ede, SPINE, LUMBAR, WITHOUT [id number] 22:22:00Unlisted Reason for Exam - Click Yes and Enter Reason Below->No [facility] : 1965 Sex: FFINAL REPORT EXAM: MR, SPINE, LUMBAR, WITHOUT CONTRAST INDICATION: Back pain or radiculopathy, prior surgery, new symptoms TECHNIQUE: Sagittal T1-, T2-, and T2-w fat-saturated, and axial T1- and T2-w images of the lumbar spine. COMPARISON: None. FINDINGS:Spine Numbering: For purposes of this dictation, it is assumed that there are 5 wvg-rgk-kcynhis, lumbar-type vertebrae, and the most caudal fully [...] arthropathy and ligamentum flavum thickening. No spinal canalor foraminal stenosis. L5-S1: Postsurgical level. Mild bilateral facet arthropathy. No spinal canal or foraminal stenosis. IMPRESSION: Status post L5-S1 dorsal decompression and modest multilevel degenerative changes, as described. No significant spinal canal or foraminal stenosis. No acute abnormality. Disc bulge at L1-L2 with annular fissure. Signed: Brian Blackwood MDReport Verified Date/Time: 02/20/2022 22:22:11 [place], [id number] 14:13:00Reason for Exam:->HX OF PARTIAL HYPROIDECTOYFINAL REPORT [...] MDReport Verified Date/Time: 02/08/2020 14:13:43 Reading Location: [facility] Diagnostic Imaging Reading Room - [place] [address] BLOOD [id number] 00:00:00 Test Item Value Reference Range Interpretation Comments CULTURE (BEAKER) (test No growth in 5 days code = 1095) BLOOD [id number] 00:00:00 Test Item Value Reference Range Interpretation Comments CULTURE (BEAKER) (test No growth in 5 days code = 1095) BASIC METABOLIC [id number] 11:06:00 Test Item Value Reference Range Interpretation [...] TO CALCULA TE ESTIMATED GFR. BASIC METABOLIC [id number] 07:36:00 Test Item Value Reference Range Interpretation [...] TO CALCULA TE ESTIMATED GFR. BASIC METABOLIC [id number] 19:50:00 Test Item Value Reference Range Interpretation [...] TO CALCULA TE ESTIMATED GFR. BASIC METABOLIC [id number] 08:59:00 Test Item Value Reference Range Interpretation [...] TO CALCULA TE ESTIMATED GFR. BASIC METABOLIC [id number] 01:18:00 Test Item Value Reference Range Interpretation [...] TO CALCULA TE ESTIMATED GFR. BASIC METABOLIC [id number] 16:32:00 Test Item Value Reference Range Interpretation [...] TO CALCULA TE ESTIMATED GFR. U/S, ABDOMINAL, [id number] 14:54:00Abdomen limited area? Add comment if clarification [...] Peters Verified Date/Time: 04/05/2018 14:54:01 Reading Location: [address] Ultrasound Reading Room HEPATIC FUNCTION [id number] 14:03:00 Test Item Value Reference Range Interpretation [...] = 21 U/L 6-55 347) BASIC METABOLIC [id number] 09:16:00 Test Item Value Reference Range Interpretation [...] ESTIMATED GFR. CBC W/PLT COUNT & AUTO [id number] 08:44:00 Test Item Value Reference Range Interpretation [...] (BEAKER) (test code = 2801) BASIC METABOLIC [id number] 01:06:00 Test Item Value Reference Range Interpretation [...] m DATA TO CALCULA TE ESTIMATED GFR. [id number] 18:02:00 Test Item Value Reference Range Interpretation Comments AMMONIA (BEAKER) (test code = 348) 35 mol/L 18-72 BASIC METABOLIC [id number] 17:31:00 Test Item Value Reference Range Interpretation [...] TO CALCULA TE ESTIMATED GFR. BASIC METABOLIC [id number] 09:29:00 Test Item Value Reference Range Interpretation [...] TO CALCULA TE ESTIMATED GFR. BLOOD GAS, [id number] 05:19:00 Test Item Value Reference Range Interpretation [...] C (test code = 1818) BASIC METABOLIC [id number] 03:52:00 Test Item Value Reference Range Interpretation [...] m DATA TO CALCULA TE ESTIMATED GFR. [id number] 03:48:00 Test Item Value Reference Range Interpretation Comments PHOSPHORUS (BEAKER) (test code = 3.6 mg/dL 2.3-4.7 604) [id number] 03:48:00 Test Item Value Reference Range Interpretation Comments MAGNESIUM (BEAKER) (test code = 2.1 mg/dL 1.6-2.6 627) LACTIC ACID, VENOUS, WHOLE [id number] 03:44:00 Test Item Value Reference Range Interpretation [...] WBC 0-0 (BEAKER) (test code = 413) [id number] 02:06:00 Test Item Value Reference Range Interpretation Comments CORTISOL, TOTAL (BEAKER) (test 17.8 ug/dL 3.7-19.4 code = 2755) TSH/FREE T4 IF [id number] 02:06:00 Test Item Value Reference Range Interpretation Comments THYROID STIMULATING HORMONE 1.09 uIU/mL 0.35-4.94 (BEAKER) (test code = 772) HIV-1 ANTIGEN WITH HIV-1/2 [id number] 00:06:00 Test Item Value Reference Range Interpretation Comments HIV-1 ANTIGEN WITH HIV 1\\T\\2 Nonreactive Nonreactive ANTIBODY (2) (BEAKER) (test code = 2586) BASIC METABOLIC [id number] 23:30:00 Test Item Value Reference Range Interpretation [...] ESTIMATED GFR. RAD, CHEST, 1 VIEW, NON [id number] 21:34:00Reason for exam:->ALTERED MENTAL STATUSReason for exam:->NEUROLOGIC [...] Verified Date/Time: 04/03/2018 21:34:48 Reading Location: [address] Reading Room OSMOLALITY, [id number] 21:10:00 Test Item Value Reference Range Interpretation Comments OSMOLALITY, SERUM (BEAKER) (test 236 mOsm/kg 275-295 L code = 615) RAPID DRUG SCREEN, [id number] 20:47:00 Test Item Value Reference Range Interpretation [...] situations. Chain of custody not maintained. Some qosj-zar-oompsro medications, as well as adulterants, may cause inaccurate results. Clinical correlation should be applied. A more comprehensive drug screen or confirmation of a detected drug may be performed upon request. [id number] 20:43:00 Test Item Value Reference Range Interpretation Comments PHOSPHORUS (BEAKER) (test code = 1.8 mg/dL 2.3-4.7 L 604) HEPATIC FUNCTION [id number] 20:43:00 Test Item Value Reference Range Interpretation [...] (test code = 22 U/L 6-55 347) [id number] 20:43:00 Test Item Value Reference Range Interpretation Comments LIPASE (BEAKER) (test code = 749) 21 U/L 8-78 CREATININE, RANDOM [id number] 20:40:00 Test Item Value Reference Range Interpretation Comments CREATININE URINE (BEAKER) (test 11.7 mg/dL code = 375) Reference Range: No NormalsSODIUM, RANDOM [id number] 20:40:00 Test Item Value Reference Range Interpretation Comments SODIUM URINE (BEAKER) (test code = 60 meq/L 243) Reference Range: No NormalsOSMOLALITY, [id number] 20:40:00 Test Item Value Reference Range Interpretation Comments OSMOLALITY URINE (BEAKER) (test 169 mOsm/kg 40-1400 code = 614) [id number] 20:37:00 Test Item Value Reference Range Interpretation Comments ETHANOL (BEAKER) (test code = 400) < mg/dL <=10 [id number] 20:35:00 Test Item Value Reference Range Interpretation Comments AMMONIA (BEAKER) (test code = 348) 33 mol/L 18-72 MR, MRA, BRAIN, WITHOUT [id number] 19:42:00FINAL REPORT MRA head and neck without contrast. CLINICAL HISTORY: Stroke. ARVIN RISON: None. TECHNIQUE: Two- and three-dimensional hjjn-kb-onddeq MRA images of the intra- and extracranial [...] right common carotid artery (image 1). MRA [place]: There is no vessel occlusion, [...] [facility]. Signed: Leela Pina MDReport Verified Date/Time: 04/03/2018 19:42:20 Reading Location: [address] Transitional Reading Room MR, MRA, NECK, WITHOUT IV [id number] 19:42:00FINAL REPORT MRA head and neck without contrast. CLINICAL HISTORY: Stroke. COMPARISON: None. TECHNIQUE: Two- and three-dimensional fctj-ay-lprsvm MRA images of the intra- and extracranial [...] right common carotid artery (image 1). MRA [place]: There is no vessel occlusion, [...] approximately 7:40 PM on 04/03/2018. Signed: Leela Pinaeport Verified Date/Time: 04/03/2018 19:42:20 Reading Location: [address] Transitional Reading Room CREATINE KINASE (CK), TOTAL AND [id number] 19:36:00 Test Item Value Reference Range Interpretation Comments CREATINE KINASE TOTAL (BEAKER) 103 U/L 29-200 (test code = 380) CREATINE KINASE-MB (BEAKER) (test 2.5 ng/mL 0.0-6.6 code = 750) CREATINE KINASE-MB INDEX (BEAKER) 2.4 % (test code = 395) CK-MB Reference Range:<6.7 Normal6.7-10.0 Borderline>10.0 AbnormalTROPONIN [id number] 19:36:00 Test Item Value Reference Range Interpretation [...] neurological disease, and persistent tachyarrhythmia.MR, BRAIN, WITHOUT [id number] 19:34:00FINAL REPORT Exam: MRI brain without contrast. [...] hemorrhage or mass effect. Signed: Leela Pina [facility] Verified Date/Time: 04/03/2018 19:34:38 Reading Location: [address] Reading Room B-TYPE NATRIURETIC FACTOR (BNP)2018-04-03 19:33:00 Test Item Value Reference Range Interpretation Comments B-TYPE NATRIURETIC PEPTIDE (BEAKER) 90 pg/mL 0-100 (test code = 700) URINALYSIS W/ [id number] 18:43:00 Test Item Value Reference Range Interpretation [...] 520) SOURCE(BEAKER) (test code = Urine, [place] 9223) BASIC METABOLIC [id number] 18:32:00 Test Item Value Reference Range Interpretation [...] m DATA TO CALCULA TE ESTIMATED GFR. [id number] 18:28:00 Test Item Value Reference Range Interpretation Comments MAGNESIUM (BEAKER) (test code = 1.7 mg/dL 1.6-2.6 627) [id number] 18:02:00 Test Item Value Reference Range Interpretation [...] mechanical heart valves.CBC W/PLT COUNT & AUTO [id number] 17:54:00 Test Item Value Reference Range Interpretation [...] PERCENT (BEAKER) (test code = 2801) POCT-GLUCOSE [id number] 17:49:00 Test Item Value Reference Range Interpretation Comments POC-GLUCOSE METER 100 mg/dL 70-110 [facility] AT [facility] (test code = ALDA Hull [facility] 1538) [address] CT, BRAIN/STROKE [id number] 17:45:00Reason for exam:->stroke protocolIs the patient ?->NoWhat [...] Dr. Roque at 1740 hours. Signed: Kenton Mrianda Verified Date/Time: 04/03/2018 17:45:48 Reading Location: [address] Reading Room
[2022-09-28] MEDS ORDERED: HYDROMORPHONE HCL 1 MG/ML INJ ONE (02:09)
[2022-09-28] MEDS ORDERED: MORPHINE 4 MG/ML SYR ONE (03:46)
--- NOTE | 2022-09-28 04:04 | ER ---
Nurse's Notes [facility] Name: Lizbet Solares Age: 57 yrs Sex: Female : 1965 Arrival Date: 09/28/2022 Time: 01:56 Bed 7 Private MD: Diagnosis: Pain in right leg Presentation: 09/28 02:00 Chief complaint: EMS states: toned out for Right hip pain. Coronavirus screen: Vaccine aa9 status: Patient reports receiving the 2nd dose of the covid vaccine. Ebola Screen: No symptoms or risks identified at this time. Initial Sepsis Screen: Does the patient meet any 2 criteria? No. Patient's initial sepsis screen is negative. Does the patient have a suspected source of infection? No. Patient's initial sepsis screen is negative. Risk Assessment: Do you want to hurt yourself or someone else? Patient reports no desire to harm self or others. Onset of symptoms was September 28, 2022. 02:00 Method Of Arrival: EMS: [facility] aa9 02:00 Acuity: NAFISA 3 aa9 Triage Assessment: 02:02 General: Appears uncomfortable, Behavior is cooperative, crying. Pain: Complains of aa9 pain in Right hip Pain radiates to lateral aspect of right thigh, lateral aspect of right knee, right hamstring, posterior aspect of right knee, medial aspect of right thigh, medial aspect of right knee, right quadriceps and right knee Pain currently is 10 out of 10 on a pain scale. Noted to be crying, moaning, resistant to movement. Neuro: Level of Consciousness is awake, alert, obeys commands, Oriented to person, place, time, situation. Cardiovascular: Patient's skin is warm and dry. Respiratory: Airway is patent Respiratory effort is even, unlabored. GI: Abdomen is flat, non-distended. : No signs and/or symptoms were reported regarding the genitourinary system. Derm: Skin is intact, with poor turgor. Musculoskeletal: Reports pain in right hip. Historical: - Allergies: 02:01 No Known Allergies; aa9 - Home Meds: 02:01 Metoprolol Tartrate Oral [Active]; Omeprazole Oral [Active]; Synthroid Oral [Active]; aa9 Wellbutrin Oral [Active]; Oxycodone HCl Oral [Active]; - PMHx: 02:01 Hypothyroidism; Hypertension; chronic back pain; Depression; Anxiety; aa9 - PSHx: 02:01 partial thyroidectomy; decompression of vertebrae; R Hip replacement; aa9 - Immunization history:: Client reports receiving the 2nd dose of the Covid vaccine. - Social history:: Smoking status: Patient denies any tobacco usage or history of. - Family history:: not pertinent. - Hospitalizations: : No recent hospitalization is reported. Screenin:05 [facility] ED Fall Risk Assessment (Adult) History of falling in the last 3 months, aa9 including since admission No falls in past 3 months (0 pts) Confusion or Disorientation No (0 pts) Intoxicated or Sedated No (0 pts) Impaired Gait Yes (1 pt) Mobility Assist Device Used Yes (1 pt) Altered Elimination No (0 pt) Score/Fall Risk Level 3 or more points = High Risk. Shawny Dumpty Scale Fall Assessment Tool (age< 18yrs) Age 13 years and above (1 pt) Gender Female (1 pt) Diagnosis Other diagnosis (1 pt) Cognitive Impairments Oriented to own ability (1 pt) Environmental Factors Patient uses assistive devices, or /toddler in crib, or furniture/lighting (3 pts) Response to Surgery/Sedation/Anesthesia More than 48 hours/ None (1 pt) Medication Usage One of the meds listed above (2 pts) Fall Risk Score/ Level High Fall Risk: >/= 12 points. Abuse screen: Denies threats or abuse. Denies injuries from another. Nutritional screening: No deficits noted. Tuberculosis screening: No symptoms or risk factors identified. Fall Risk No fall in past 12 months (0 pts). Secondary diagnosis (15 points) No IV (0 pts). Ambulatory Aid- Crutches/Cane/Walker (15 pts). Gait- Weak (10 pts.). Mental Status- Oriented to own ability (0 pts). Total Calles Fall Scale indicates Low Risk Score (25-44 pts). Assessment: 02:04 General: Appears uncomfortable, Behavior is cooperative, crying, "I was here yesterday aa9 for pain in my right hip, an xray was done, and it was normal, but the pain is too much even ith my oxy at home.". 03:23 Reassessment: Patient and/or family updated on plan of care and expected duration. Pain ll3 level reassessed. Patient is alert, oriented x 3, equal unlabored respirations, skin warm/dry/pink. States pain is 4/10 Patient states feeling better. Vital Signs: 02:00 BP 135 / 65; Pulse 72; Resp 22 S; Temp 97.9(O); Pulse Ox 100% on R/A; Weight 92.99 kg aa9 (R); Height 5 ft. 5 in. (165.10 cm) (R); 02:09 BP 116 / 64; Pulse 71; Resp 20 S; Pulse Ox 100% on R/A; aa9 03:23 BP 143 / 83; Pulse 71; Resp 17; Pulse Ox 98% on R/A; ll3 02:00 Body Mass Index 34.11 (92.99 kg, 165.10 cm) aa9 ED Course: 01:56 Patient arrived in ED. vc1 01:56 Dudley Cruz MD is Attending Physician. rn 01:59 Bety Mckinney RN is Primary Nurse. aa9 02:01 Triage completed. aa9 02:04 Arm band placed on. aa9 02:06 Patient has correct armband on for positive identification. Bed in low position. Call aa9 light in reach. Pulse ox on. NIBP on. 02:14 Inserted saline lock: 22 gauge in right antecubital area, using aseptic technique. ll3 Blood collected. 04:11 No provider procedures requiring assistance completed. IV discontinued, intact, ll3 bleeding controlled, No redness/swelling at site. Pressure dressing applied. Administered Medications: 02:14 Drug: Dilaudid (HYDROmorphone) 1 mg Route: IVP; Site: right antecubital; ll3 03:23 Follow up: Response: No adverse reaction; Marked relief of symptoms; Pain is decreased ll3 03:47 Drug: morphine 4 mg Route: IVP; Infused Over: 4 mins; Site: right antecubital; aa9 04:12 Follow up: Response: No adverse reaction; Marked relief of symptoms; Pain is decreased ll3 Medication: 02:06 VIS not applicable for this client. aa9 Outcome: 04:04 Discharge ordered by . rn 04:11 Discharged to home via wheelchair, with family. ll3 04:11 Condition: stable 04:11 Discharge instructions given to patient, Instructed on discharge instructions, follow up and referral plans. Demonstrated understanding of instructions, follow-up care. 04:12 Patient left the ED. ll3 Signatures: Dudley Cruz MD MD rn Loubet, Lynsea RN RN ll3 Brittny Patel RN RN vc1 Bety Mckinney RN RN aa9
--- NOTE | 2022-09-28 04:04 | EDPHYS ---
Physician Documentation [facility] Name: Lizbet Solares Age: 57 yrs Sex: Female : 1965 Arrival Date: 09/28/2022 Time: 01:56 Bed 7 Private MD: ED Physician Dudley Cruz HPI: 09/28 02:54 This 57 yrs old Female presents to ER via EMS with complaints of right hip and leg pain.rn 02:54 The patient presents with pain. The complaints affect the right hip and right upper rn thigh. 02:55 Onset: The symptoms/episode began/occurred 2 week(s) ago. Modifying factors: The rn symptoms are alleviated by the symptoms are aggravated by movement. Associated signs and symptoms: Pertinent negatives calf tenderness, fever, swelling, warmth, weakness. Severity of symptoms: At their worst the symptoms were moderate, in the emergency department the symptoms are unchanged. The patient has experienced similar episodes in the past. The patient has been recently seen at the [facility] Emergency Department. Pt reports had hip replacement 2 weeks ago in [place], no injury since then, but has been having right hip and upper leg pain now for 2 weeks. No fever. NO fall or injury. Seen here last night and had neg xray and ultrasound. No changes since last nights visit, just pain continues. . Historical: - Allergies: 02:01 No Known Allergies; aa9 - Home Meds: 02:01 Metoprolol Tartrate Oral [Active]; Omeprazole Oral [Active]; Synthroid Oral [Active]; aa9 Wellbutrin Oral [Active]; Oxycodone HCl Oral [Active]; - PMHx: 02:01 Hypothyroidism; Hypertension; chronic back pain; Depression; Anxiety; aa9 - PSHx: 02:01 partial thyroidectomy; decompression of vertebrae; R Hip replacement; aa9 - Immunization history:: Client reports receiving the 2nd dose of the Covid vaccine. - Social history:: Smoking status: Patient denies any tobacco usage or history of. - Family history:: not pertinent. - Hospitalizations: : No recent hospitalization is reported. ROS: 02:55 Constitutional: Negative for fever, chills, and weight loss, Eyes: Negative for injury, rn pain, redness, and discharge, Neck: Negative for injury, pain, and swelling, Cardiovascular: Negative for chest pain, palpitations, and edema, Respiratory: Negative for shortness of breath, cough, wheezing, and pleuritic chest pain, Abdomen/GI: Negative for abdominal pain, nausea, vomiting, diarrhea, and constipation, Back: Negative for injury and pain, MS/Extremity: + right hip and upper leg pain Skin: Negative for injury, rash, and discoloration, Neuro: Negative for headache, weakness, numbness, tingling, and seizure. Exam: 02:55 Constitutional: This is a well developed, well nourished patient who is awake, alert, rn appears uncomfortable Head/Face: Normocephalic, atraumatic. Cardiovascular: Regular rate and rhythm. No pulse deficits. Respiratory: No increased work of breathing, no retractions or nasal flaring. Abdomen/GI: Soft, non-tender Skin: Warm, dry, no erythema or cyanosis, no rash MS/ Extremity: Pulses equal, no cyanosis. Neuro: Awake and alert, GCS 15 Vital Signs: 02:00 BP 135 / 65; Pulse 72; Resp 22 S; Temp 97.9(O); Pulse Ox 100% on R/A; Weight 92.99 kg aa9 (R); Height 5 ft. 5 in. (165.10 cm) (R); 02:09 BP 116 / 64; Pulse 71; Resp 20 S; Pulse Ox 100% on R/A; aa9 03:23 BP 143 / 83; Pulse 71; Resp 17; Pulse Ox 98% on R/A; ll3 02:00 Body Mass Index 34.11 (92.99 kg, 165.10 cm) aa9 MDM: 01:56 Patient medically screened. rn 04:00 Differential diagnosis: radiculopathy, post-op pain, swelling, neuropathy. Data rn reviewed: vital signs, nurses notes, old medical records, and as a result, I will discharge patient. Counseling: I had a detailed discussion with the patient and/or guardian regarding: the historical points, exam findings, and any diagnostic results supporting the discharge/admit diagnosis, the need for outpatient follow up, to return to the emergency department if symptoms worsen or persist or if there are any questions or concerns that arise at home. Response to treatment: the patient's symptoms have markedly improved after treatment, and as a result, I will discharge patient. Special discussion: I discussed with the patient/guardian in detail that at this point there is no indication for admission to the hospital. It is understood, however, that if the symptoms persist or worsen the patient needs to return immediately for re-evaluation. Based on the history and exam findings, there is no indication for further emergent testing or inpatient evaluation. I discussed with the patient/guardian the need to see the orthopedic surgeon for further evaluation of the symptoms. ED course: Pain markedly improved, xrays and ultrasound yesterday negative and no gross changes per patient. Will dc home with instruction to f/u with her orthopedic surgeon. . 04:04 ED course: Pt states has gabapentin 600mg at home, has not taken any, recommend taking rn them. . 09/28 02:04 Order name: IV Start; Complete Time: 02:14 rn Administered Medications: 02:14 Drug: Dilaudid (HYDROmorphone) 1 mg Route: IVP; Site: right antecubital; ll3 03:23 Follow up: Response: No adverse reaction; Marked relief of symptoms; Pain is decreased ll3 03:47 Drug: morphine 4 mg Route: IVP; Infused Over: 4 mins; Site: right antecubital; aa9 04:12 Follow up: Response: No adverse reaction; Marked relief of symptoms; Pain is decreased ll3 Disposition Summary: 09/28/22 04:04 Discharge Ordered Location: Home rn Problem: an ongoing problem rn Symptoms: have improved rn Condition: Stable rn Diagnosis - Pain in right leg rn Followup: rn - With: Private Physician - When: As needed - Reason: Recheck today's complaints, Re-evaluation by your physician Discharge Instructions: - Discharge Summary Sheet rn - Musculoskeletal Pain rn - Pain Without a Known Cause rn Forms: - Medication Reconciliation Form rn - Thank You Letter rn - Antibiotic rn family practice - Prescription Opioid Use rn Signatures: Dudley Cruz MD MD rn Loubet, Lynsea, RN RN ll3 Bety Mckinney RN RN aa9
[2022-09-28 04:20] VITALS: TEMP 97.9
[2022-09-28 04:31] VITALS: BP 143/83; O2SAT 98
== END 2022-09-28 04:12 | disposition home or self-care (01) ==
LOC: ER 01:53
DX: M79.604 Pain in right leg (principal); M25.551 Pain in right hip; Z96.641 Presence of right artificial hip joint; I10 Essential (primary) hypertension
CPT/HCPCS: 96374; 96375; 99284; J1170

== ENCOUNTER 2022-10-01 11:55 | Emergency (ER) | payer MEDICARE ==
--- OUTSIDE RECORDS SUMMARY | 2022-10-01 12:08 | XMS REPORT | Continuity of Care Document ---
:1965 Author Organization [facility] t Address [address] [place] [address] Care Team Providers Name Role Phone Marcial Alonzo Primary Care Physician RHETT XIONG Attending Clinician Unavailable MARCIAL DOBBS Attending Clinician Unavailable BARRY PAYNE Attending Clinician Unavailable MARLIN SHARIF Attending Clinician Unavailable Marcial Alonzo Attending Clinician Louis Manuel MD Attending Clinician ASHLEIGH GLASS Attending Clinician Unavailable BARRY PAYNE Attending Clinician Unavailable RADHA GALINDO Attending Clinician Unavailable Lab, Ang - Db Attending Clinician Unavailable CAYDEN MUIR Attending Clinician Unavailable FOG_A_Provider Attending Clinician Unavailable Jamal DONATO, Davy Javier Attending Clinician Rhett Xiong MD Attending Clinician YAMINI HURST Attending Clinician Unavailable Ebrahim MANAGER OFFICE, [place] Attending Clinician Susan MANAGER OFFICE, Arnoldo Attending Clinician ARNOLDO BRICE Attending Clinician Unavailable Nicol Gonzáles MD Attending Clinician Eva PT, Paulina Hernández Attending Clinician Unavailable Josie DONATO, Radha Mckeon Attending Clinician Pedro SAWMILL MANAGER, Nick Dunbar Attending Clinician Unavailable SHERICE ANTONIO Attending Clinician Unavailable Lairsa ESCALERA, Kari Reyes Attending Clinician Unavailable Sterling Lee MD Attending Clinician STERLING LEE Attending Clinician Unavailable Brian Morton MD Attending Clinician BRIAN MORTON Attending Clinician Unavailable [facility] Attending Clinician Unavailjoan Main RN, Ludwin Attending Clinician Unavailable Benjamin Núñez RN Attending Clinician Unavailable RANULFO WOLFE Attending Clinician Unavailable IDANIA BIRMINGHAM Attending Clinician Unavailable Seferino MANAGER OFFICEIdania Attending Clinician FAUSTINO HOLT Attending Clinician Unavailable Faustino Anthony Attending Clinician Doctor Unassigned, [place] Attending Clinician Unavailable Parminder Irene MD Attending Clinician PARMINDER IRENE Attending Clinician Unavailable PARMINDER IRENE Attending Clinician Unavailable , [facility] Attending Clinician Unavailable John Manzo MD Attending Clinician JOHN MANZO Attending Clinician Unavailable LOUIS MANUEL Attending Clinician Unavailable [facility] Attending Clinician Unavailable KELLY CLARK [...] Clinician Unavailable BARRY PAYNE Admitting Clinician Unavailable FOG_A_Provider Admitting Clinician Unavailable FAUSTINO HOLT Admitting Clinician Unavailable LOUIS MANUEL Admitting Clinician Unavailable KELLY CLARK Admitting Clinician Unavailable ALENA GARRETT Admitting Clinician Unavailable Payers Payer Name Policy Type Policy Number Effective Date Expiration Date S leticia BLUE ADVANTAGE [id number] 2021 HMO/PLUS 00:00:00 HIM BCBS BLUE [id number] 2019 ADVANTAGE HMO 00:00:00 BLUE [facility] [id number] HMO-MARKETPLACE - BCBS MARKETPLACE PLAN [id number] 2007 2022 HMO 00:00:00 00:00:00 AIXA [id number] 2016 00:00:00 FCM-DWW-HDWSBJ/KELLY [id number] 2006 CE PLUS 00:00:00 [facility] [id number] 2018 CHOICE HMO 00:00:00 MARKETPLACE-MIKAYLA PCP Problems Condition Condition Condition Status Onset Resolution Last Treating Co mments Source Name Details Category Date Date Treatment Clinician Date Status Status Disease Active 2021-10 [facility] post right post right 15 He alth hip hip 00:00: replacemen replacemen [...] Active 2021-10 UT of left of left 0-13 Health artificial artificial 00:00: hip joint hip joint 00 M87.052 M87.052 Diagnosis Active 2022-07-23 Memoria Active 06-24 09:47:00 l 06/24/2022 00:00: [place] mason 00 [facility] UNK UNK Diagnosis Active 2022-07-02 Mem oria Active 06-24 07:16:00 l 06/24/2022 00:00: [place] mason 00 [facility] 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 Primary Primary Disease Active UT osteoarthr osteoarthr 06-24 He alth itis of itis of 00:00: left hip left hip 00 Limp Limp Disease Active UT 914 Health 00:00: 00 Class 2 Class 2 Disease Active UT severe severe 06-24 Health obesity obesity 00:00: due to due to 00 excess excess calories calories with with serious serious comorbidit comorbidit y and body y and body mass index mass index (BMI) of (BMI) of 39.0 to 39.0 to 39.9 in 39.9 in adult adult 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 14 He alth of length of length 00:00: [...] Added automatic ally from request for surgery [id number] Need for Need for Disease Active Unive rs vaccinatio vaccinatio 8-15 it y of n n 00:00: Medical Branch Cervical Cervical Disease Active Unive rs cancer cancer 8-15 ity of screening screening 00:00: Antonella s Medical Branch Breast Breast Disease Active Univers cancer cancer 8-15 ity of screening screening 00:00: Antonella ashby by by 00 Medical mammogram mammogram Bran ch Essential Essential Disease Active Uni vers hypertensi hypertensi 8-15 it y of on on 00:00: Medical Branch Bulging Bulging Disease Active Univers lumbar lumbar 8-08 ity of disc disc 00:00: [place] 00 Medical Branch Encounter Encounter Disease Active Uni vers to discuss to discuss 8-08 it y of test test 00:00: [place] results results 00 Medical Branch Left hip Left hip Disease Active Unive rs pain pain 6-06 ity of 00:00: 00 Medical Branch S/P S/P Disease Active Univers laminectom laminectom 6-06 it y of y y 00:00: Medical Branch Abnormal Abnormal Disease Active Unive rs gait gait 6-06 ity of 00:00: Medical Branch Left leg Left leg Disease Active Unive rs pain pain 5-13 ity of 00:00: [place] [facility] Sciatica Sciatica Disease Active Unive rs of right of right 4-06 ity of side side 00:00: 00 Medical Branch Chronic Chronic Disease Active Univers midline midline 4-06 ity of low back low back 00:00: [place] pain pain 00 Medical without without Branch sciatica sciatica Abnormal Abnormal Disease Active Unive rs liver liver 1-27 ity of ultrasound ultrasound 00:00: [place] [facility] Severe Severe Disease Active Univers obstructiv obstructiv -26 it y of e sleep e sleep 00:00: [place] apnea apnea Medical Branch Prediabete Prediabete Disease Active U aidaners s s 1-19 ity of 00:00: [place] [facility] Mixed Mixed Disease Active Univers hyperlipid hyperlipid 1-19 it y of emia emia 00:00: Medical Branch Abnormal Abnormal Disease Active Unive rs LFTs LFTs 1-19 ity of 00:00: [place] [facility] GERD GERD Disease Active Univers (gastroeso (gastroeso 1-17 it y of phageal phageal 00:00: [place] reflux reflux Medical disease) disease) Branch Mitral Mitral Disease Active Univers valve valve 1-17 ity of prolapse prolapse 00:00: [place] [facility] Anxiety Anxiety Disease Active Univers 1-17 ity of 00:00: [place] [facility] Pernicious Pernicious Disease Active U kam anemia anemia 1-17 ity of 00:00: [place] [facility] Morbid Morbid Disease Active Univers obesity obesity 1-17 ity of with body with body 00:00: Antonella s mass index mass index 00 Me [...] 10-11 13:24:00 l 10/11/2017 08:00: Delmar mason SMR [address] [facility] Adult Adult Problem Active 2022-07-20 Stefan adalberto attention attention 06:43:36 l deficit deficit Ede hyperactiv hyperactiv ity ity disorder disorder (disorder) (disorder) Active Problem 07/20/2022 [facility] Human Human Problem Active 2022-07-20 Memor ia T-lymphotr T-lymphotr 06:43:36 l opic virus opic virus He rmann 2 2 infection infection (disorder) (disorder) Active Problem 07/20/2022 [facility] Hyperlipid Hyperlipi Problem Active 2022-07-20 Memoria emia demia 06:43:36 l (disorder) (disorder) He rmann Active Problem 07/20/2022 [facility] Hypertensi Hypertens Problem Active 2022-07-20 Memoria ve jimmy 06:43:36 l disorder, disorder, Herm oma systemic systemic arterial arterial (disorder) (disorder) Active Problem 07/20/2022 [facility] Hypothyroi Hypothyro Problem Active 2022-07-20 Memoria dism idism 06:43:36 l (disorder) (disorder) He rmann Active Problem 07/20/2022 [facility] Osteoporos Osteoporo Problem Active 2022-07-20 Memoria is sis 06:43:36 l (disorder) (disorder) He rmann Active Problem 07/20/2022 [facility] IDIOPATHIC IDIOPATHI Diagnosis Active 2022-07-23 Memoria ASEPTIC C ASEPTIC 09:47:00 l 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 Active [facility] Closed Closed Problem Resolve 2022-07-20 Mem oria fracture fracture d 06:43:36 l of upper of upper [place] n end of end of humerus humerus (disorder) (disorder) Resolved Problem 07/20/2022 [facility] Fracture Fracture Problem Resolve 2022-07-20 Memoria of of d 06:43:36 l calcaneus calcaneus Herm oma (disorder) (disorder) Resolved Problem 07/20/2022 Bilateral [facility] History of History Problem Resolve 2022-07-20 Memoria - upper of - upper d 06:43:36 l gastrointe gastrointe He rmann stinal stinal tract tract hemorrhage hemorrhage (context-d (context-d ependent ependent category) category) Resolved Problem 07/20/2022 [facility], [facility] Heart Heart Problem Resolve 2022-07-20 Stefan adalberto murmur murmur d 06:43:36 l (finding) (finding) Willie morales Resolved Problem 07/20/2022 [facility] History of History Problem Resolve 2022-07-20 Memoria - GI Bleed of - GI d 06:43:36 l (context-d Bleed [place] n ependent (context-d category) ependent category) Resolved Problem 07/20/2022 [facility], [facility] No known No known Disease UT active active Health problems problems Allergies, Adverse Reactions, Alerts Allergy Allergy Status Severity Reaction(s) Onset Inactive Treating Comm ents Source Name Type Date Date Clinician NO KNOWN Drug Active Univers ALLERGIE Class ity of S [facility] NO KNOWN Allergy Active [facility] ALLERGIE S Social History Social Habit Start Date Stop Date Quantity Comments Source History SDOH University o f Alcohol Frequency [facility] edical Branch History SDMD University o f Alcohol Std Drinks [facility] History [facility] University o f Alcohol Binge [facility] al Branch Exposure to 2022-09-14 2022-09-24 Not sure [facility] SARS-CoV-2 (event) 00:00:00 13:04:00 Cigarettes smoked 2022-06-11 2022-06-11 [facility] current (pack per 00:00:00 00:00:00 day) - Reported Cigarette 2022-06-11 2022-06-11 [facility] pack-years 00:00:00 00:00:00 Tobacco use and 2022-06-06 2022-06-06 Smokeless tobacco [facility] exposure 00:00:00 00:00:00 non-user Hospital Alcohol intake 2022-06-06 2022-06-06 Ex-drinker [facility] 00:00:00 00:00:00 (finding) Hospital Alcohol Comment 2021-10-21 2021-10-21 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 Clinician (SIG) Name Name felodipine 2021-10 Yes [id number] 5mg TAKE 1 U nivers 5 mg 24 hr 2-15 TABLET BY ity of tablet 00:00: [address] [facility] [address] SYNTHROID 2021-10 Yes [id number] TAKE 1 U nivers 75 mcg 2-15 TABLET BY ity of tablet 00:00: MOUTH [place] EVERY Medical MORNING Branch felodipine 2021-10 Yes [id number] 5mg TAKE 1 U nivers 5 mg 24 hr 2-15 TABLET BY ity of tablet 00:00: MOUTH AT [place] [address] BEDTIME Medical Branch SYNTHROID 2021-10 Yes [id number] TAKE 1 U nivers 75 mcg 2-15 TABLET BY ity of tablet 00:00: MOUTH [place] [facility] Medical MORNING Branch felodipine 2021-10 Yes [id number] 5mg TAKE 1 U nivers 5 mg 24 hr 2-15 TABLET BY ity of tablet 00:00: MOUTH AT [place] [address] BEDTIME Medical Branch SYNTHROID 2021-10 Yes [id number] TAKE 1 U nivers 75 mcg 2-15 TABLET BY ity of tablet 00:00: MOUTH [place] [facility] Medical MORNING Branch methylPREDN 2021-10- Yes [id number] 4mg Take 1 UT ISolone 2-15 12-16 tablet (4 Health (Medrol 00:00: 05:59 mg total) Dospak) 4 00 :00 by mouth 1 MG tablets (one) time for 1 dose. Use as directed by package instructio ns Enoxaparin 2021-10 Yes [id number] 40mg QD Inject 0.4 UT Sodium 1-22 9107 mL (40 mg Health (Lovenox) 00:00: total) as 40 MG/0.4ML 00 directed 1 solution (one) time prefilled each day. syringe Enoxaparin 2021-10 Yes [id number] 40mg QD Inject 0.4 UT Sodium 1-22 9107 mL (40 mg Health (Lovenox) 00:00: total) as 40 MG/0.4ML 00 directed 1 solution (one) time prefilled each day. syringe Percocet 2021-10 No 1 tab, PO, Mem oria 10/325 oral 0-07 Q4H, PRN l tablet 12:42: for pain, [place] n 00 # 60 tab, 0 Refill(s), given [...] ER 100 mg 14:00: Toprol XL) He rm oral May split tablet, tab, but extended do not release crush. omeprazole 2021-10 No 20 mg, 1 Mem oria 0-05 cap, l 14:00: Route: PO, [place] 00 Drug form: DRC, Daily, Dosing Weight 101.818, kg, Start date: 07/15/22 9:00:00 CDT, Duration: 30 day, Stop date: 08/13/22 9:00:00 CDT Protonix 2021-10 No Notes: Memoria 0-05 Tablet l 14:00: should not 00 be chewed or crushed. (Same as: Protonix) amLODIPine 2021-10 No Notes: Memor ia 0-05 (Same as: l 14:00: Norvasc) 00 Synthroid 2021-10 No 75 Memoria 0-05 microgram, l 11:30: 1 tab, [place] 00 Route: PO, Drug form: TAB, Daily, Dosing Weight 101.818, kg, Start date: 07/15/22 6:30:00 CDT, Duration: 30 day, Stop date: 08/13/22 6:30:00 CDT, 0 rosuvastati 2021-10 No Notes: Stefan adalberto n 0-05 Same as l 02:00: Crestor Ede 00 vancomycin 2021-10 No 2001 mg: Me [...] 0-04 (Same as: l capsule 22:00: Neurontin) Herm oma 00 liothyronin 2021-10 No Notes: Stefan adalberto e 0-04 (Same as: l 22:00: Cytomel) Ede 00 ceFAZolin 2021-10 No Notes: Memori a (SCIP) 0-04 Same as: l 21:00: Ancef Ede 00 ketOROLAC 2021-10 No 15 mg, 1 Stefan adalberto 0-04 mL, Route: l 21:00: IV, Drug Ede 00 form: INJ, Q8H, Dosing Weight 101.818, kg, Start date: 07/14/22 16:00:00 CDT, Duration: 2 day, Stop date: 07/16/22 8:00:00 CDT, 0 tranexamic 2021-10 No Notes: Memor ia acid + 0-04 (Same As: l Sodium 19:30: Cyklokapro Carole nn Chloride 00 n) 0.9% IV 100 mL Zofran 2021-10 No Notes: Memoria 0-04 (Same as: l 17:00: Zofran) [place] 00 MEDICATION WASTE Product Size: 4 mg Product Wasted: ___ mg Roxicodone 2021-10 No Notes: Memor ia 0-04 (Same as: l 16:46: Roxicodone ) Tylenol 2021-10 No Notes: Do Memor ia 0-04 not exceed l 16:46: 4 gm/day. Ede 00 (Same as: Tylenol) ANES 2021-10 No 1,000 [...] 08/13/22 10:36:00 CDT, BSA: 2.18 m2, 0 [place] 2021-10 No Notes: Do Memoria 10/325 oral 0-04 not exceed l tablet 15:37: 4gm/day of Carole acetaminop hen. (Same as: [place] 325/10) Percocet 2021-10 No 1 tab, Memoria [...] Chloride 00 n) 0.9% IV 100 mL [place] 5/325 2021-10 No Notes: Stefan adalberto oral tablet 0-04 (Same as: l 15:37: [place] 00 325/5) Do not exceed 4gm/day of [...] 0-04 Drug form: l 13:31: INJ, ONCE, Ede Stop date: 07/14/22 8:31:00 CDT lidocaine 2021-10 No Route: IV, Me moria (ANES) 0-04 Drug form: l 13:31: INJ, ONCE, [place] 00 Stop date: 07/14/22 8:31:00 CDT propofol 2021-10 No Route: IV, Mem oria (ANES) 0-04 Drug form: l 13:31: INJ, ONCE, Stop date: 07/14/22 8:31:00 CDT rocuronium 2021-10 No Route: IV, Adam emoria (ANES) 0-04 Drug form: l 13:31: [...] 0-04 Route: PO, l 12:00: Drug form: CAPMALCOLM, Dosing Weight 101.818, kg, Start date: 07/14/22 [...] 0-04 Route: PO, l 12:00: Drug form: ERTMALCOLM COBOS, Dosing Weight 101.818, kg, Start date: 07/14/22 7:00:00 CDT, Duration: 30 day, Stop date: 08/13/22 6:59:00 CDT, 0 Tylenol 2021-10 No 1,000 mg, Memor ia 0-04 Route: PO, l 12:00: Drug form: TABMALCOLM, Dosing Weight 101.818, kg, Start date: 07/14/22 7:00:00 CDT, Duration: 30 day, Stop date: 08/13/22 6:59:00 CDT, 0 ceFAZolin + 2021-10 No Notes: Stefan adalberto sterile 0-04 (Same As: l water 20 mL 12:00: Ancef, Herm Kefzol) MEDICATION WASTE Product Size: 1000 mg [...] Normal Saline 48.45 mL oxyCODONE-a 2021-10 Yes [id number] 1{tbl} Take 1 UT cetaminophe 0-03 [address] [facility] n 00:00: mouth (Percocet) 00 every 4 10-325 MG (four) tablet hours if needed (pain) for up to 60 doses. oxyCODONE-a 2021-10 Yes [id number] 1{tbl} Take 1 UT cetaminophe 0-03 [address] [facility] n 00:00: mouth (Percocet) 00 every 4 10-325 MG (four) tablet hours if needed (pain) for up to 60 doses. oxyCODONE-a 2021-10 Yes [id number] 1{tbl} Take 1 UT cetaminophe 0-03 [address] [facility] n 00:00: mouth (Percocet) 00 every 4 10-325 MG (four) tablet hours if needed (pain) for up to 60 doses. oxyCODONE-a 2021-10 Yes [id number] 1{tbl} Take 1 UT cetaminophe 0-03 [address] [facility] n 00:00: mouth (Percocet) 00 every 4 10-325 MG (four) tablet hours if needed (pain) for up to 60 doses. oxyCODONE-a 2021-10 Yes [id number] 1{tbl} Take 1 UT cetaminophe 0-03 [address] [facility] n 00:00: mouth (Percocet) 00 every 4 10-325 MG (four) tablet hours if needed (pain) for up to 60 doses. oxyCODONE-a Yes [id number] 1{tbl} Take 1 UT cetaminophe 9- [address] [facility] n 00:00: mouth (Percocet) 00 every 4 10-325 MG (four) tablet hours if needed (pain) for up to 60 doses. naloxone 2022- Yes [id number] 4mg Administer UT (Narcan) 4 07-07 9108 1 spray (4 He alth mg/0.1 mL 00:00: 04:59 mg total) nasal spray 00 :00 into affected nostril(s) if needed for opioid reversal. May repeat every 2-3 minutes if needed, alternatin g nostrils, until medical assistance becomes available. naloxone 2022- Yes [id number] 4mg Administer UT (Narcan) 4 07-07 9108 1 spray (4 He alth mg/0.1 mL 00:00: 04:59 mg total) nasal spray 00 :00 into affected nostril(s) if needed for opioid reversal. May repeat every 2-3 minutes if needed, alternatin g nostrils, until medical assistance becomes available. naloxone 2022- Yes [id number] 4mg Administer UT (Narcan) 4 07-07 9108 1 spray (4 He alth mg/0.1 mL 00:00: 04:59 mg total) nasal spray 00 :00 into affected nostril(s) if needed for opioid reversal. May repeat every 2-3 minutes if needed, alternatin g nostrils, until medical assistance becomes available. naloxone 2022- Yes [id number] 4mg Administer UT (Narcan) 4 07-07 9108 1 spray (4 He alth mg/0.1 mL 00:00: 04:59 mg total) nasal spray 00 :00 into affected nostril(s) if needed for opioid reversal. May repeat every 2-3 minutes if needed, alternatin g nostrils, until medical assistance becomes available. naloxone 2022- Yes [id number] 4mg Administer UT (Narcan) 4 07-07 9108 1 spray (4 He alth mg/0.1 mL 00:00: 04:59 mg total) nasal spray 00 :00 into affected nostril(s) if needed for opioid reversal. May repeat every 2-3 minutes if needed, alternatin g nostrils, until medical assistance becomes available. naloxone 2022- Yes [id number] 4mg Administer UT (Narcan) 4 07-07 9108 1 spray (4 He alth mg/0.1 mL 00:00: 04:59 mg total) nasal spray 00 :00 into affected nostril(s) if needed for opioid reversal. May repeat every 2-3 minutes if needed, alternatin g nostrils, until medical assistance becomes available. Enoxaparin 2021- Yes [id number] 40mg QD Inject 0.4 UT Sodium 07-07 9108 mL (40 mg Health (Lovenox) 00:00: 04:59 total) as 40 MG/0.4ML 00 :00 directed 1 solution (one) time prefilled each day syringe for 9 days. ondansetron 2021- Yes [id number] 4mg Take 1 UT ODT (Zofran 07-07 9108 tablet (4 He alth ODT) 4 MG 00:00: 04:59 mg total) disintegrat 00 :00 by mouth ing tablet every 8 (eight) hours if needed for nausea or vomiting for up to 7 days. Lexapro Yes 30 mg, PO, Stefan adalberto 9-22 Daily, 0 l 13:25: Refill(s) Ede Abilify 5 Yes 5 mg = 1 Stefan adalberto mg oral 9-22 tab, PO, l tablet 12:51: Daily, # [place] 00 30 tab, 0 Refill(s) oxyCODONE No 15 mg = 1 Mem oria 15 mg oral 9-22 tab, PO, l tablet, 12:51: PRN, PRN [place] n immediate 00 Pain, 0 release Refill(s) methocarbam Yes 1,000 mg = Memoria ol 500 mg -22 2 tab, PO, l oral tablet 12:51: BID, 0 Herm oma 00 Refill(s) omeprazole Yes 20 mg = 1 Me moria 20 mg oral 9-22 cap, PO, l delayed 12:50: Daily, 0 [place] release 00 Refill(s) capsule buPROPion Yes 450 mg = 1 Me moria 450 mg/24 9-22 tab, PO, l hours (XL) 12:50: Q24H, 0 Herm oma oral 00 Refill(s) tablet, extended release rosuvastati Yes 20 mg = 1 M emoria n 20 mg 9-22 tab, PO, l oral tablet 12:50: Bedtime, # [place] 00 30 tab, 0 Refill(s) felodipine Yes [...] Daily, # 30 tab, 1 Refill(s) ARIPiprazol 2-0 Yes 5mg Take 5 mg U nivers e (ABILIFY) 9-02 by mouth ity of 5 mg tablet 16:00: daily. [address] OLANZapine 2021-0 Yes 15mg Take 15 mg U nivers 15 mg 9-02 by mouth. ity of tablet 16:00: [address] SERTraline 2021-0 Yes 50mg Take 50 mg U nivers 50 mg 9-02 by mouth. ity of tablet 16:00: [address] traZODone 2021-0 Yes 200mg Take 200 Uni vers 100 mg 9-02 mg by ity of tablet 16:00: mouth. [address] ARIPiprazol 2021-0 Yes 5mg Take 5 mg U nivers e (ABILIFY) 9-02 by mouth ity of 5 mg tablet 16:00: daily. [address] OLANZapine 2021-0 Yes 15mg Take 15 mg U nivers 15 mg 9-02 by mouth. ity of tablet 16:00: [address] SERTraline 2021-0 Yes 50mg Take 50 mg U nivers 50 mg 9-02 by mouth. ity of tablet 16:00: [address] traZODone 2021-0 Yes 200mg Take 200 Uni vers 100 mg 9-02 mg by ity of tablet 16:00: mouth. [address] ARIPiprazol 2021-0 Yes 5mg Take 5 mg U nivers e (ABILIFY) 9-02 by mouth ity of 5 mg tablet 16:00: daily. [address] OLANZapine 2-0 Yes 15mg Take 15 mg U nivers 15 mg 9-02 by mouth. ity of tablet 16:00: [address] SERTraline 2021-0 Yes 50mg Take 50 mg U nivers 50 mg 9-02 by mouth. ity of tablet 16:00: [address] traZODone 2021-0 Yes 200mg Take 200 Uni vers 100 mg 9-02 mg by ity of tablet 16:00: mouth. [address] ARIPiprazol 2022-0 Yes 5mg Take 5 mg U nivers e (ABILIFY) 9-02 by mouth ity of 5 mg tablet 16:00: daily. [address] OLANZapine 2-0 Yes 15mg Take 15 mg U nivers 15 mg 9-02 by mouth. ity of tablet 16:00: [address] SERTraline 2-0 Yes 50mg Take 50 mg U nivers 50 mg 9-02 by mouth. ity of tablet 16:00: [address] traZODone 2-0 Yes 200mg Take 200 Uni vers 100 mg 9-02 mg by ity of tablet 16:00: mouth. [address] ARIPiprazol 2021-0 Yes 5mg Take 5 mg U nivers e (ABILIFY) 9-02 by mouth ity of 5 mg tablet 16:00: daily. [address] OLANZapine 2021-0 Yes 15mg Take 15 mg U nivers 15 mg 9-02 by mouth. ity of tablet 16:00: [address] SERTraline 2-0 Yes 50mg Take 50 mg U nivers 50 mg 9-02 by mouth. ity of tablet 16:00: [address] traZODone 2-0 Yes 200mg Take 200 Uni vers 100 mg 9-02 mg by ity of tablet 16:00: mouth. [address] ARIPiprazol 2-0 Yes 5mg Take 5 mg U nivers e (ABILIFY) 9-02 by mouth ity of 5 mg tablet 16:00: daily. [address] OLANZapine 2-0 Yes 15mg Take 15 mg U nivers 15 mg 9-02 by mouth. ity of tablet 16:00: [address] SERTraline 2-0 Yes 50mg Take 50 mg U nivers 50 mg 9-02 by mouth. ity of tablet 16:00: [address] traZODone 2-0 Yes 200mg Take 200 Uni vers 100 mg 9-02 mg by ity of tablet 16:00: mouth. [address] ARIPiprazol 2-0 Yes 5mg Take 5 mg U nivers e (ABILIFY) 9-02 by mouth ity of 5 mg tablet 16:00: daily. [address] OLANZapine 2022-0 Yes 15mg Take 15 mg U nivers 15 mg 902 by mouth. ity of tablet 16:00: [address] SERTraline 2022-0 Yes 50mg Take 50 mg U nivers 50 mg 02 by mouth. ity of tablet 16:00: [address] traZODone 2022-0 Yes 200mg Take 200 Uni vers 100 mg 9-02 mg by ity of tablet 16:00: mouth. [address] Vortioxetin 2022-0 Yes 10mg QD Take [...] 59 each day. gabapentin 2022-0 Yes 600mg Q.[id number] Take 600 [facility] (Neurontin) 9- [id number] mg by [facility] 600 MG 09:37: [...] 59 each day. gabapentin 2022-0 Yes 600mg Q.[id number] Take 600 [facility] (Neurontin) 9- [id number] mg by [facility] 600 MG 09:37: [...] 59 each day. gabapentin 2022-0 Yes 600mg Q.16327650 Take 600 [facility] (Neurontin) 9- [id number] mg by [facility] 600 MG 09:37: [...] 59 each day. gabapentin 2022-0 Yes 600mg Q.02330161 Take 600 [facility] (Neurontin) 9-01 [id number] mg by [facility] 600 MG 09:37: [...] 59 each day. gabapentin 2022-0 Yes 600mg Q.[id number] Take 600 [facility] (Neurontin) 9- [id number] mg by [facility] 600 MG 09:37: [...] 59 each day. gabapentin 2022-0 Yes 600mg Q.[id number] Take 600 [facility] (Neurontin) 9- [id number] mg by [facility] 600 MG 09:37: 3D mouth in tablet 59 the morning and 600 mg at noon and 600 mg in the evening. levothyroxi 2022-0 Yes 88ug QD Take 88 [facility] ne 9-01 mcg by [facility] (Synthroid, 09:37: mouth 1 Levoxyl) 88 59 (one) time MCG tablet each day. gabapentin 2022-0 Yes 600mg Q.81025951 Take 600 [facility] (Neurontin) 06-11 [id number] mg by [facility] 600 MG 09:37: 3D mouth in tablet 59 the morning and 600 mg at noon and 600 mg in the evening. levothyroxi 2021-0 Yes 88ug QD Take 88 [facility] ne 9-01 mcg by [facility] (Synthroid, 09:37: mouth 1 Levoxyl) 88 59 (one) time MCG tablet each day. ARIPiprazol 0 Yes 5mg QD Take 5 mg U T e (Abilify) 06-11 by mouth 1 He alth 5 MG tablet 09:37: (one) time 59 each day. gabapentin 0 Yes 600mg Q.52243624 Take 600 [facility] (Neurontin) 06-11 [id number] mg by [facility] 600 MG 09:37: 3D mouth in tablet 59 the morning and 600 mg at noon and 600 mg in the evening. levothyroxi 0 Yes 88ug QD Take 88 [facility] ne 9-01 mcg [facility] (Synthroid, 09:37: mouth 1 Levoxyl) 88 59 (one) time MCG tablet each day. omeprazole 2021- No [id number] 20mg QD Take 1 [facility] OTC 06-11 tablet (20 [facility] (PriLOSEC 00:00: 04:59 mg total) OTC) 20 MG 00 :00 by mouth 1 EC tablet (one) time each day. Do not crush, chew, or split. Take w/ NSAID Diclofenac 2021- No [id number] Q.[id number] Apply [facility] Sodium 06-11 [id number] topically [facility] (Voltaren) 00:00: 04:59 3D 3 (three) 1 % 00 :00 times a external day if gel needed (pain). Apply 4 grams to affected area, do not exceed greater than 16 grams a day meloxicam 2021- No [id number] 7.5mg Take 1 [facility] (Mobic) 7.5 06-11 tablet [facility]alt [facility] MG tablet 00:00: 04:59 (7.5 mg 00 :00 total) by mouth 1 (one) time each day if needed (pain). omeprazole 2021- No [id number] 20mg QD Take 1 [facility] OTC 06-11 tablet (20 [facility] (PriLOSEC 00:00: 04:59 mg total) OTC) 20 MG 00 :00 by mouth 1 EC tablet (one) time each day. Do not crush, chew, or split. Take w/ NSAID Diclofenac 2021- No [id number] Q.[id number] Apply [facility] Sodium 06-11 [id number] topically [facility] (Voltaren) 00:00: 04:59 3D 3 (three) 1 % 00 :00 times a external day if gel needed (pain). Apply 4 grams to affected area, do not exceed greater than 16 grams a day meloxicam 2021- No [id number] 7.5mg Take 1 [facility] (Mobic) 7.5 06-11 tablet Healt [facility] MG tablet 00:00: 04:59 (7.5 mg 00 :00 total) by mouth 1 (one) time each day if needed (pain). omeprazole 2021- No [id number] 20mg QD Take 1 [facility] OTC 06-11 tablet (20 [facility] (PriLOSEC 00:00: 04:59 mg total) OTC) 20 MG 00 :00 by mouth 1 EC tablet (one) time each day. Do not crush, chew, or split. Take w/ NSAID Diclofenac 2021- No [id number] Q.[id number] Apply [facility] Sodium 06-11 [id number] topically [facility] (Voltaren) 00:00: 04:59 3D 3 (three) 1 % 00 :00 times a external day if gel needed (pain). Apply 4 grams to affected area, do not exceed greater than 16 grams a day meloxicam 0 2021- No [id number] 7.5mg Take 1 [facility] (Mobic) 7.5 06-11 tablet Healt h MG tablet 00:00: 04:59 (7.5 mg 00 :00 total) by mouth 1 (one) time each day if needed (pain). methylPREDN 2021-2021- No [id number] 4mg Take 1 UT ISolone 06-11 tablet [...] (two) times a day. traMADoL 2021-0 Yes [id number] 50mg Q.5D Take 1 [facility] (ULTRAM) 50 06-07 tablet (50 st mg tablet 22:14: mg total) [facility] 00 by mouth 2 l (two) times a day .acute pain. oxyCODone 2021-0 Yes 30306 15mg Q.[id number] Take 1 [facility] (ROXICODONE 06-07 [id number] tablet (15 st ) 15 MG 22:14: 3D mg total) [facility] ta immediate 00 by mouth 3 l release (three) tablet times a day .acute pain. Max Daily Amount: 45 mg gabapentin 2021-0 Yes 600mg Q.[id number] Take 1 [facility] (NEURONTIN) 06-[id number] 600 mg 22:14: 3D (600 [...] (two) times a day. traMADoL 2-0 Yes 02143 50mg Q.5D Take 1 [facility] (ULTRAM) 50 06-07 tablet (50 st mg tablet 22:14: mg total) [facility] 00 by mouth 2 l (two) times a day .acute pain. oxyCODone 2-0 Yes 83136 15mg Q.[id number] Take 1 [facility] (ROXICODONE 06-07 [id number] tablet (15 st ) 15 MG 22:14: 3D mg total) [facility] immediate 00 by mouth 3 l release (three) tablet times a day .acute pain. Max Daily Amount: 45 mg gabapentin 2022-0 Yes 600mg Q.[id number] Take 1 [facility] (NEURONTIN) 06-[id number] 600 mg 22:14: 3D (600 [...] (two) times a day. traMADoL 2022-0 Yes 34953 50mg Q.5D Take 1 [facility] (ULTRAM) 50 8-28 tablet (50 st mg tablet 22:14: mg total) [facility] 00 by mouth 2 l (two) times a day .acute pain. oxyCODone 2021-0 Yes 61666 15mg Q.00505235 Take 1 [facility] (ROXICODONE 06-07 [id number] tablet (15 st ) 15 MG 22:14: 3D mg total) [facility] immediate 00 by mouth 3 l release (three) tablet times a day .acute pain. Max Daily Amount: 45 mg gabapentin 2021-0 Yes 600mg Q.[id number] Take 1 [facility] (NEURONTIN) 06-[id number] 600 mg 22:14: 3D (600 [...] (two) times a day. traMADoL 2021-0 Yes 15979 50mg Q.5D Take 1 [facility] (ULTRAM) 50 06-07 tablet (50 st mg tablet 22:14: mg total) [facility] 00 by mouth 2 l (two) times a day .acute pain. oxyCODone 2021-0 Yes 24858 15mg Q.[id number] Take 1 [facility] (ROXICODONE 06-07 [id number] tablet (15 st ) 15 MG 22:14: 3D mg total) [facility] immediate 00 by mouth 3 l release (three) tablet times a day .acute pain. Max Daily Amount: 45 mg gabapentin 0 Yes 600mg Q.[id number] Take 1 [facility] (NEURONTIN) 06-[id number] 600 mg 22:14: 3D (600 [...] (two) times a day. traMADoL 2021-0 Yes [id number] 50mg Q.5D Take 1 [facility] (ULTRAM) 50 06-07 tablet (50 st mg tablet 22:14: mg total) [facility] 00 by mouth 2 l (two) times a day .acute pain. oxyCODone 2021-0 Yes 82243 15mg Q.77546893 Take 1 [facility] (ROXICODONE 06-07 [id number] tablet (15 st ) 15 MG 22:14: 3D mg total) [facility] immediate 00 by mouth 3 l release (three) tablet times a day .acute pain. Max Daily Amount: 45 mg gabapentin 2-0 Yes 600mg Q.[id number] Take 1 [facility] (NEURONTIN) 06-[id number] 600 mg 22:14: 3D (600 [...] (two) times a day. traMADoL 2-0 Yes 68215 50mg Q.5D Take 1 [facility] (ULTRAM) 50 - tablet (50 st mg tablet 22:14: mg total) [facility] 00 by mouth 2 l (two) times a day .acute pain. oxyCODone 2-0 Yes 46809 15mg Q.57023017 Take 1 [facility] (ROXICODONE - [id number] tablet (15 st ) 15 MG 22:14: 3D mg total) [facility] immediate 00 by mouth 3 l release (three) tablet times a day .acute pain. Max Daily Amount: 45 mg gabapentin 2-0 Yes 600mg Q.[id number] Take 1 [facility] (NEURONTIN) 06-[id number] 600 mg 22:14: 3D (600 [...] tablet 00 by mouth l daily. rosuvastati 202-0 Yes 20mg QD Take 1 Meth kathleen [...] tablet st (WELLBUTRIN 22:14: (300 mg Hos elvy XL) 300 MG 00 total) by l [...] (two) times a day. traMADoL 2022-0 Yes [id number] 50mg Q.5D Take 1 [facility] (ULTRAM) 50 - tablet (50 st mg tablet 22:14: mg total) [facility] 00 by mouth 2 l (two) times a day .acute pain. oxyCODone 2021-0 Yes 42479 15mg Q.95202643 Take 1 [facility] (ROXICODONE 06-07 [id number] tablet (15 st ) 15 MG 22:14: 3D mg total) [facility]pi [facility] immediate 00 by mouth 3 l release (three) tablet times a day .acute pain. Max Daily Amount: 45 mg gabapentin 2021-0 Yes 600mg Q.[id number] Take 1 [facility] (NEURONTIN) 06-[id number] 600 mg 22:14: 3D (600 mg Hosp[facility] tablet 00 total) by l mouth 3 (three) times a day. diclofenac 2021-0 Yes 75mg QD Take 1 [facility] (VOLTAREN) 06-07 tablet (75 st 75 MG EC 22:14: mg total) [facility]osp [facility]ick tablet 00 by mouth l daily. escitalopra 2021-0 Yes 20mg QD Take 1 Meth kathleen m (LEXAPRO) 28 tablet (20 st 20 MG 22:14: mg [...] (two) times a day. traMADoL 2021-0 Yes [id number] 50mg Q.5D Take 1 [facility] (ULTRAM) 50 - tablet (50 st mg tablet 22:14: mg total) [facility] 00 by mouth 2 l (two) times a day .acute pain. oxyCODone 2021-0 Yes 49160 15mg Q.39667430 Take 1 [facility] (ROXICODONE 06-07 [id number] tablet (15 st ) 15 MG 22:14: 3D mg total) [facility] immediate 00 by mouth 3 l release (three) tablet times a day .acute pain. Max Daily Amount: 45 mg gabapentin 2021-0 Yes 600mg Q.32318088 Take 1 [facility] (NEURONTIN) 06-[id number] 600 mg 22:14: 3D (600 [...] (two) times a day. traMADoL 2-0 Yes 45179 50mg Q.5D Take 1 [facility] (ULTRAM) 50 06-07 tablet (50 st mg tablet 22:14: mg total) [facility] 00 by mouth 2 l (two) times a day .acute pain. oxyCODone 2-0 Yes 70327 15mg Q.24556435 Take 1 [facility] (ROXICODONE 06-07 [id number] tablet (15 st ) 15 MG 22:14: 3D mg total) [facility] immediate 00 by mouth 3 l release (three) tablet times a day .acute pain. Max Daily Amount: 45 mg gabapentin 2-0 Yes 600mg Q.[id number] Take 1 [facility] (NEURONTIN) 06-[id number] 600 mg 22:14: 3D (600 [...] 00 by mouth l tablet daily. levothyroxi 2-0 Yes 88ug QD Take [...] (two) times a day. traMADoL 2-0 Yes 86915 50mg Q.5D Take 1 [facility] (ULTRAM) 50 8-28 tablet (50 st mg tablet 22:14: mg total) [facility] 00 by mouth 2 l (two) times a day .acute pain. oxyCODone 2022-0 Yes 73419 15mg Q.50748709 Take 1 [facility] (ROXICODONE 06-07 [id number] tablet (15 st ) 15 MG 22:14: 3D mg total) [facility] immediate 00 by mouth 3 l release (three) tablet times a day .acute pain. Max Daily Amount: 45 mg omeprazole 2-0 Yes 20mg QD Take 1 [facility] (PriLOSEC) 06-[address] 20 MG 22:14: (20 mg [facility]ospita capsule 00 total) by l mouth daily. gabapentin 2022-0 Yes 600mg Q.61625034 Take 1 [facility] (NEURONTIN) 06-[id number] 600 mg 22:14: 3D (600 [...] (two) times a day. traMADoL 2-0 Yes 97749 50mg Q.5D Take 1 [facility] (ULTRAM) 50 8-28 tablet (50 st mg tablet 22:14: mg total) [facility] 00 by mouth 2 l (two) times a day .acute pain. levothyroxi 2021-0 Yes 88ug QD Take 1 [...] (two) times a day. traMADoL 2-0 Yes 62948 50mg Q.5D Take 1 [facility] (ULTRAM) 50 8-28 tablet (50 st mg tablet 22:14: mg total) [facility] 00 by mouth 2 l (two) times a day .acute pain. oxyCODone 2021-0 Yes 80532 15mg Q.82260357 Take 1 [facility] (ROXICODONE 8-28 [id number] tablet (15 st ) 15 MG 22:14: 3D mg total) [facility] immediate 00 by mouth 3 l release (three) tablet times a day .acute pain. Max Daily Amount: 45 mg oxyCODone 2-0 Yes 72369 15mg Q.32336948 Take 1 [facility] (ROXICODONE 8-28 [id number] tablet (15 st ) 15 MG 22:14: 3D mg total) [facility] immediate 00 by mouth 3 l release (three) tablet times a day .acute pain. Max Daily Amount: 45 mg gabapentin 2022-0 Yes 600mg Q.90501448 Take 1 [facility] (NEURONTIN) 8-[id number] 600 mg 22:14: 3D (600 [...] mouth l daily. gabapentin 2022-0 Yes 600mg Q.97113436 Take 1 [facility] (NEURONTIN) - [id number] tablet st 600 mg 22:14: 3D (600 [...] (two) times a day. traMADoL 2021-0 Yes 76151 50mg Q.5D Take 1 [facility] (ULTRAM) 50 06-07 tablet (50 st mg tablet 22:14: mg total) [facility] 00 by mouth 2 l (two) times a day .acute pain. oxyCODone 2021-0 Yes 01350 15mg Q.29485313 Take 1 [facility] (ROXICODONE 06-07 [id number] tablet (15 st ) 15 MG 22:14: 3D mg total) [facility] immediate 00 by mouth 3 l release (three) tablet times a day .acute pain. Max Daily Amount: 45 mg escitalopra 2021-0 Yes 20mg QD Take 1 Meth kathleen m (LEXAPRO) 06-07 tablet (20 st 20 MG 22:14: mg total) [facility]ospita tablet 00 by mouth l daily. gabapentin 2021-0 Yes 600mg Q.04338980 Take 1 [facility] (NEURONTIN) 06-[id number] 600 mg 22:14: 3D (600 [...] (two) times a day. traMADoL 2-0 Yes 22104 50mg Q.5D Take 1 [facility] (ULTRAM) 50 - tablet (50 st mg tablet 22:14: mg total) [facility] 00 by mouth 2 l (two) times a day .acute pain. oxyCODone 2-0 Yes 07949 15mg Q.15950461 Take 1 [facility] (ROXICODONE 8-28 [id number] tablet (15 st ) 15 MG 22:14: [...] mouth tablet daily. gabapentin 2022-0 Yes 600mg Q.[id number] Take 1 [facility] (NEURONTIN) 06-[id number] 600 mg 22:14: 3D (600 [...] (two) times a day. traMADoL 2021-0 Yes 77000 50mg Q.5D Take 1 [facility] (ULTRAM) 50 8-28 tablet (50 st mg tablet 22:14: mg total) [facility] 00 by mouth 2 l (two) times a day .acute pain. oxyCODone 2021-0 Yes 95777 15mg Q.04487074 Take 1 [facility] (ROXICODONE - [id number] tablet (15 st ) 15 MG 22:14: 3D mg total) Hospi ta immediate 00 by mouth 3 l release (three) tablet times a day .acute pain. Max Daily Amount: 45 mg gabapentin 2021-0 Yes 600mg Q.46294871 Take 1 [facility] (NEURONTIN) 06-[id number] 600 mg 22:14: 3D (600 [...] (two) times a day. traMADoL 2021-0 Yes 83915 50mg Q.5D Take 1 [facility] (ULTRAM) 50 06-07 tablet (50 st mg tablet 22:14: mg total) Hos le[facility] 00 by mouth 2 l (two) times a day .acute pain. oxyCODone 2021-0 Yes 99418 15mg Q.94079225 Take 1 [facility] (ROXICODONE 06-07 [id number] tablet (15 st ) 15 MG 22:14: 3D mg total) Hospi ta immediate 00 by mouth 3 l release (three) tablet times a day .acute pain. Max Daily Amount: 45 mg gabapentin 2021-0 Yes 600mg Q.20058163 Take 1 [facility] (NEURONTIN) 06-[id number] 600 mg 22:14: 3D (600 [...] (two) times a day. traMADoL 2021-0 Yes 63028 50mg Q.5D Take 1 [facility] (ULTRAM) 50 06-07 tablet (50 st mg tablet 22:14: mg total) Hos le[facility] 00 by mouth 2 l (two) times a day .acute pain. oxyCODone 2021-0 Yes 51392 15mg Q.00128470 Take 1 [facility] (ROXICODONE 06-07 [id number] tablet (15 st ) 15 MG 22:14: 3D mg total) Hospi ta immediate 00 by mouth 3 l release (three) tablet times a day .acute pain. Max Daily Amount: 45 mg gabapentin 2-0 Yes 600mg Q.39671864 Take 1 [facility] (NEURONTIN) 06-[id number] 600 mg 22:14: 3D (600 [...] (two) times a day. traMADoL 2022-0 Yes 64916 50mg Q.5D Take 1 [facility] (ULTRAM) 50 8-28 tablet (50 st mg tablet 22:14: mg total) Hos le[facility] 00 by mouth 2 l (two) times a day .acute pain. oxyCODone 2021-0 Yes 80610 15mg Q.70768181 Take 1 [facility] (ROXICODONE 06-07 [id number] tablet (15 st ) 15 MG 22:14: 3D mg total) Hospi ta immediate 00 by mouth 3 l release (three) tablet times a day .acute pain. Max Daily Amount: 45 mg gabapentin 2021-0 Yes 600mg Q.41134752 Take 1 [facility] (NEURONTIN) 06-[id number] 600 mg 22:14: 3D (600 [...] (two) times a day. traMADoL 2021-0 Yes 49176 50mg Q.5D Take 1 [facility] (ULTRAM) 50 06-07 tablet (50 st mg tablet 22:14: mg total) Hos le[facility] 00 by mouth 2 l (two) times a day .acute pain. oxyCODone 2021-0 Yes 44264 15mg Q.13201304 Take 1 [facility] (ROXICODONE 06-07 [id number] tablet (15 st ) 15 MG 22:14: 3D mg total) Hospi ta immediate 00 by mouth 3 l release (three) tablet times a day .acute pain. Max Daily Amount: 45 mg gabapentin 2021-0 Yes 600mg Q.42354664 Take 1 [facility] (NEURONTIN) 06-[id number] 600 mg 22:14: 3D (600 [...] ospita 00 by mouth l daily. vortioxetin 2021-2021- No 10mg QD Take 10 mg [facility] 06-[address] (TRINTELLIX 18:46: 00:00 daily. Hos le[facility] ) 10 mg 00 :00 l tablet vortioxetin 2021-2021- No 10mg QD Take 10 mg [facility] 06-[address] (TRINTELLIX 18:46: 00:00 daily. Hos le[facility] ) 10 mg 00 :00 l tablet vortioxetin 2021-2021- No 10mg QD Take 10 mg [facility] 06-[address] (TRINTELLIX 18:46: 00:00 daily. Hos le[facility] ) 10 mg 00 :00 l tablet vortioxetin 2021-2021- No 10mg QD Take 10 mg [facility] [...] 10 mg 00 :00 l tablet vortioxetin 2021- No 10mg QD Take 10 mg [facility] 06-[address] (TRINTELLIX 18:46: 00:00 daily. Hos le[facility] ) 10 mg 00 :00 l tablet vortioxetin 2021- No 10mg QD Take 10 mg [facility] 06-[address] (TRINTELLIX 18:46: 00:00 daily. Hos levy ) 10 mg 00 :00 l tablet sertraline 2021- No 50mg QD Take 50 mg [facility] (ZOLOFT) 50 06-[address] MG tablet 18:45: 00[facility]-0 2021- No 50mg QD Take 50 mg [facility] (ZOLOFT) 50 06-[address] MG tablet 18:45: 00:00 daily. Hospi ta 51 :00 l sertraline 2021-0 2021- No 50mg QD Take 50 mg [facility] (ZOLOFT) 50 06-[address] MG tablet 18:45: 00:00 daily. Hospi ta 51 :00 l sertraline 2021-0 2021- No 50mg QD Take 50 mg [facility] (ZOLOFT) 50 06-[address] MG tablet 18:45: 00:00 daily. [facility]pi ta 51 :00 l sertraline 2021-0 2021- No 50mg QD Take 50 mg [facility] (ZOLOFT) 50 06-[address] MG tablet 18:45: 00:00 daily. Hospi ta 51 :00 l sertraline 2021-0 2021- No 50mg QD Take 50 mg [facility] (ZOLOFT) 50 06-[address] MG tablet 18:45: 00:00 daily. Hospi ta 51 :00 l sertraline 2021-0 2- No 50mg QD Take 50 mg [facility] (ZOLOFT) 50 06-[address] MG tablet 18:45: 00:00 daily. [facility] 51 :00 l sertraline 2-0 2022- No 50mg QD Take 50 mg [facility] (ZOLOFT) 50 06-[address] MG tablet 18:45: 00:00 daily. [facility] 51 :00 l sertraline 2022-0 2022- No 50mg QD Take 50 mg [facility] (ZOLOFT) 50 06-[address] MG tablet 18:45: 00:00 daily. [facility] 51 :00 l sertraline 2022-0 2022- No 50mg QD Take 50 mg [facility] (ZOLOFT) 50 06-[address] MG tablet 18:45: 00:00 daily. [facility] 51 :00 l sertraline 2022-0 2022- No 50mg QD Take 50 mg [facility] (ZOLOFT) 50 06-[address] MG tablet 18:45: 00:00 daily. [facility] 51 :00 l sertraline 2-0 2022- No 50mg QD Take 50 mg [facility] (ZOLOFT) 50 06-[address] MG tablet 18:45: 00:00 daily. [facility] 51 :00 l sertraline 2-0 2022- No 50mg QD Take 50 mg [facility] (ZOLOFT) 50 06-[address] MG tablet 18:45: 00:00 daily. [facility] 51 :00 l sertraline 2022-0 2022- No 50mg QD Take 50 mg [facility] (ZOLOFT) 50 06-[address] MG tablet 18:45: 00:00 daily. [facility] 51 :00 l sertraline 2022-0 2022- No 50mg QD Take 50 mg [facility] (ZOLOFT) 50 06-[address] MG tablet 18:45: 00:00 daily. [facility] 51 :00 l sertraline 2022-0 2022- No 50mg QD Take 50 mg [facility] (ZOLOFT) 50 06-[address] MG tablet 18:45: 00:00 daily. [facility] 51 :00 l sertraline 2022-0 2022- [...] CR 32 :00 morning. l tablet methylpheni 2021-0 2022- No 54mg QD Take 54 mg [facility] date HCl 06-[address] (CONCERTA) 18:45: 00:00 every Hospi ta 54 MG CR 32 :00 morning. l tablet methylpheni 2021-0 2022- No 54mg QD Take 54 mg [facility] date HCl 06-[address] (CONCERTA) 18:45: 00:00 every Hospi ta 54 MG CR 32 :00 morning. l tablet methylpheni 2021-0 2022- No 54mg QD Take 54 mg [facility] date HCl 06-[address] (CONCERTA) 18:45: 00:00 every Hospi ta 54 MG CR 32 :00 morning. l tablet omeprazole 2021-0 2- No 40mg QD Take [...] capsule 55 :00 before l breakfast. omeprazole 2021- No 40mg QD Take 40 mg [facility] (PriLOSEC) 06-[address] 40 MG 18:44: 00:00 daily Hospita capsule 55 :00 before l breakfast. omeprazole 2021-2021- No 40mg QD Take 40 mg [facility] (PriLOSEC) 06-[address] 40 MG 18:44: 00:00 daily Hospita capsule 55 :00 before l breakfast. omeprazole 2021- No 40mg QD Take 40 mg [facility] (PriLOSEC) 06-[address] 40 MG 18:44: 00:00 daily Hospita capsule 55 :00 before l breakfast. clonAZEPAM 2021-2021- No 1mg Q.78452552 Take 1 mg [facility] (KlonoPIN) 06-06 [id number] [address] mouth [address] 1 MG tablet 18:44: 00:00 3D (three) Ho spita 34 :00 times a l day. clonAZEPAM 2021-2021- No 1mg Q.47317821 Take 1 mg [facility] (KlonoPIN) 06-06 [id number] [address] mouth [address] 1 MG tablet 18:44: 00:00 3D (three) Ho spita 34 :00 times a l day. clonAZEPAM 2021-2021- No 1mg Q.23899829 Take 1 mg [facility] (KlonoPIN) 06-06 [id number] [address] mouth [address] 1 MG tablet 18:44: 00:00 3D (three) Ho spita 34 :00 times a l day. clonAZEPAM 2021-2- No 1mg Q.83996072 Take 1 mg [facility] (KlonoPIN) 06-06 [id number] [address] mouth [address] 1 MG tablet 18:44: 00:00 3D (three) Ho spita 34 :00 times a l day. clonAZEPAM 2021-2- No 1mg Q.84930305 Take 1 mg [facility] (KlonoPIN) 06-06 [id number] [address] mouth [address] 1 MG tablet 18:44: 00:00 3D (three) Ho spita 34 :00 times a l day. clonAZEPAM 2022-0 2022- No 1mg Q.89717882 Take 1 mg [facility] (KlonoPIN) 06-06 [id number] [address] mouth [address] 1 MG tablet 18:44: 00:00 3D (three) Ho spita 34 :00 times a l day. clonAZEPAM 2022-0 2022- No 1mg Q.[id number] Take 1 mg [facility] (KlonoPIN) 06-06 [id number] by mouth [address] 1 MG tablet 18:44: 00:00 3D (three) Ho spita 34 :00 times a l day. clonAZEPAM 2022-0 2022- No 1mg Q.69094894 Take 1 mg [facility] (KlonoPIN) 06-06 [id number] [address] mouth [address] 1 MG tablet 18:44: 00:00 3D (three) Ho spita 34 :00 times a l day. clonAZEPAM 2022-0 2022- No 1mg Q.20271462 Take 1 mg [facility] (KlonoPIN) 06-06 [id number] [address] mouth [address] 1 MG tablet 18:44: 00:00 3D (three) Ho spita 34 :00 times a l day. clonAZEPAM 2022-0 2022- No 1mg Q.79698617 Take 1 mg [facility] (KlonoPIN) 06-06 [id number] mouth [address] 1 MG tablet 18:44: 00:00 3D (three) Ho spita 34 :00 times a l day. clonAZEPAM 2022-0 2022- No 1mg Q.67584194 Take 1 mg [facility] (KlonoPIN) 06-[id number] mouth [address] 1 MG tablet 18:44: 00:00 3D (three) Ho spita 34 :00 times a l day. clonAZEPAM 2022-0 2022- No 1mg Q.59534663 Take 1 mg [facility] (KlonoPIN) 06-06- [id number] by mouth 3 st 1 MG tablet 18:44: 00:00 3D (three) Ho spita 34 :00 times a l day. clonAZEPAM 2021-2021- No 1mg Q.57026693 Take 1 mg [facility] (KlonoPIN) 06-06 [id number] [address] mouth [address] 1 MG tablet 18:44: 00:00 3D (three) Ho spita 34 :00 times a l day. clonAZEPAM 2021-2021- No 1mg Q.14500601 Take 1 mg [facility] (KlonoPIN) 06-06 [id number] [address] mouth [address] 1 MG tablet 18:44: 00:00 3D (three) Ho spita 34 :00 times a l day. clonAZEPAM 2021-2021- No 1mg Q.[id number] Take 1 mg [facility] (KlonoPIN) 06-06 [id number] [address] mouth [address] 1 MG tablet 18:44: 00:00 3D (three) Ho spita 34 :00 times a l day. clonAZEPAM 2021-2021- No 1mg Q.[id number] Take 1 mg [facility] (KlonoPIN) 06-06 [id number] by mouth [address] 1 MG tablet 18:44: 00:00 3D (three) Ho spita 34 :00 times a l day. clonAZEPAM 2021-2021- No 1mg Q.04924497 Take 1 mg [facility] (KlonoPIN) 06-06 [id number] [address] mouth [address] 1 MG tablet 18:44: 00:00 3D (three) Ho spita 34 :00 times a l day. clonAZEPAM 2021-2021- No 1mg Q.[id number] Take 1 mg [facility] (KlonoPIN) 06-06 [id number] [address] mouth [address] 1 MG tablet 18:44: 00:00 3D (three) Ho spita 34 :00 times a l day. clonAZEPAM 2021-2021- No 1mg Q.66886394 Take 1 mg [facility] (KlonoPIN) 06-06 [id number] [address] mouth [address] 1 MG tablet 18:44: 00:00 3D (three) Ho spita 34 :00 times a l day. levothyroxi 2021-0 2021- No 75ug QD Take 75 Me [...] :00 every l mcg tablet morning. levothyroxi 2021-0 2021- No 75ug QD Take 75 Me [facility]odi ne 8-27 08-[address] (SYNTHROID, 18:44: 00:00 [facility] LEVOXYL) 75 09 :00 every l mcg tablet morning. levothyroxi 2021-0 2021- No 75ug QD Take 75 Me thodi ne 8-27 08-[address] (SYNTHROID, 18:44: 00:00 [facility] LEVOXYL) 75 09 :00 every l mcg tablet morning. levothyroxi [id number]- No 75ug QD Take 75 Me thodi [...] l daily for 5 days. levothyroxi Yes [id number] 88ug Take 1 [facility] 88 mcg 8-24 tablet by [facility] o f tablet 00:00: mouth [place] 00 every Medical morning. [place] levothyroxi Yes [id number] 88ug Take 1 [facility] 88 mcg 8-24 tablet by [facility] o f tablet 00:00: mouth [place] 00 every Medical morning. [place] levothyroxi 0 Yes [id number] 88ug Take 1 [facility] 88 mcg 8-24 tablet by [facility] o f tablet 00:00: mouth [place] 00 every Medical morning. [place] levothyroxi 0 Yes [id number] 88ug Take 1 [facility] 88 mcg 8-24 tablet by [facility]y o f tablet 00:00: mouth [place] 00 every Medical morning. [place] levothyroxi 0 Yes [id number] 88ug Take 1 [facility] 88 mcg 8-24 tablet by [facility]y o f tablet 00:00: mouth [place] 00 every Medical morning. [place] levothyroxi 0 Yes [id number] 88ug Take 1 [facility] 88 mcg 8-24 tablet by [facility]y o f tablet 00:00: mouth [place] 00 every Medical morning. [place] levothyroxi 2022-0 Yes [id number] 88ug Take 1 [facility] 88 mcg 8-24 tablet by ity o f tablet 00:00: [place] [id number] every Medical morning. [place] diclofenac 2-0 Yes 75mg Q.5D Take 75 mg [facility] (Voltaren) 8-22 by [facility] 75 MG EC 00:00: in the tablet 00 morning and 75 mg before bedtime. oxyCODONE 2022-0 Yes 15mg Q.[id number] Take 15 mg [facility] (Roxicodone 8-22 [id number] by mouth [facility] ) 15 MG 00:00: 3D (three) immediate 00 times a release day if tablet needed. diclofenac 2022-0 Yes 75mg Q.5D Take 75 mg [facility] (Voltaren) 8-22 [facility] 75 MG EC 00:00: in the tablet 00 morning and 75 mg before bedtime. oxyCODONE 2022-0 Yes 15mg Q.[id number] Take 15 mg [facility] (Roxicodone 8-22 [id number] by mouth [facility] ) 15 MG 00:00: 3D (three) immediate 00 times a release day if tablet needed. diclofenac 2022-0 Yes 75mg Q.5D Take 75 mg [facility] (Voltaren) 8-22 [facility] 75 MG EC 00:00: in the tablet 00 morning and 75 mg before bedtime. oxyCODONE 2022-0 Yes 15mg Q.[id number] Take 15 mg [facility] (Roxicodone 8-22 [id number] by [facility] ) 15 MG 00:00: 3D (three) immediate 00 times a release day if tablet needed. diclofenac 2022-0 Yes 75mg Q.5D Take 75 mg [facility] (Voltaren) 8-22 [facility] 75 MG EC 00:00: in the tablet 00 morning and 75 mg before bedtime. oxyCODONE 2022-0 Yes 15mg Q.[id number] Take 15 mg [facility] (Roxicodone 8-22 [id number] by [facility] ) 15 MG 00:00: 3D (three) immediate 00 times a release day if tablet needed. diclofenac 2022-0 Yes 75mg Q.5D Take 75 mg [facility] (Voltaren) 8-22 [facility] 75 MG EC 00:00: in the tablet 00 morning and 75 mg before bedtime. oxyCODONE 2022-0 Yes 15mg Q.[id number] Take 15 mg [facility] (Roxicodone 8-22 [id number] by mouth [facility] ) 15 MG 00:00: 3D (three) immediate 00 times a release day if tablet needed. diclofenac 2022-0 Yes 75mg Q.5D Take 75 mg [facility] (Voltaren) 8-22 by [facility] 75 MG EC 00:00: in the tablet 00 morning and 75 mg before bedtime. oxyCODONE 2022-0 Yes 15mg Q.[id number] Take 15 mg [facility] (Roxicodone 8-22 [id number] by mouth [facility] ) 15 MG 00:00: 3D (three) immediate 00 times a release day if tablet needed. diclofenac 2022-0 Yes 75mg Q.5D Take 75 mg [facility] (Voltaren) 8-22 by mouth [facility] 75 MG EC 00:00: in the tablet 00 morning and 75 mg before bedtime. oxyCODONE 2022-0 Yes 15mg Q.[id number] Take 15 mg [facility] (Roxicodone 8-22 [id number] by mouth [facility] ) 15 MG 00:00: 3D (three) immediate 00 times a release day if tablet needed. diclofenac 2022-0 Yes 75mg Q.5D Take 75 mg [facility] (Voltaren) 8-22 by mouth [facility] 75 MG EC 00:00: in the tablet 00 morning and 75 mg before bedtime. oxyCODONE 2022-0 Yes 15mg Q.[id number] Take 15 mg [facility] (Roxicodone 8-22 [id number] by mouth [facility] ) 15 MG [...] TAKE 1 [facility] XL 8-[address] [facility] (Wellbutrin 00:00: MOUTH XL) 150 MG 00 EVERY 24 hr MORNING tablet WITH THE 300MG traMADoL 50 2-0 Yes Univer s mg tablet 8-10 ity of 00:00: [place] [facility] traMADoL 50 2-0 Yes Univer s mg tablet 8-10 ity of 00:00: [place] [facility] traMADoL 50 2-0 Yes Univer s mg tablet 8-10 ity of 00:00: [place] [facility] traMADoL 50 2-0 Yes Univer s mg tablet 8-10 ity of 00:00: [place] [facility] traMADoL 50 2-0 Yes Univer s mg tablet 8-10 ity of 00:00: [place] [facility] traMADoL 50 2-0 Yes Univer s mg tablet 8-10 ity of 00:00: [place] [facility] traMADoL 50 2-0 Yes Univer s mg tablet 8-10 ity of 00:00: [place] [facility] traMADol 2022-0 Yes 50mg Q.5D Take 50 [...] and 50 mg in the evening. gabapentin 2022-0 Yes [id number] 600mg Take 1 [facility] 600 mg 8-08 tablet by ity of tablet 00:00: mouth in [address] and 1 tablet at noon and 1 tablet in the evening. gabapentin 2022-0 Yes [id number] 600mg Take 1 [facility] 600 mg 8-08 tablet by ity of tablet 00:00: mouth in [address] and 1 tablet at noon and 1 tablet in the evening. gabapentin 2022-0 2022- No [id number] 600mg Take 1 [facility] 600 mg 8-08 12-09 tablet by ity of tablet 00:00: 00:00 mouth in [place] 00 :00 [facility] and 1 tablet at noon and 1 tablet in the evening. gabapentin 2022-0 2022- No [id number] 600mg Take 1 [facility] 600 mg 8-08 12-09 tablet by ity of tablet 00:00: 00:00 mouth in [place] 00 :00 [facility] and 1 tablet at noon and 1 [...] Medical DAILY FOR Branch 27 DAYS methocarbam 2021- No TAKE 1 [facility] vers oL 500 mg 7- 12-09 TABLET BY ity of tablet 00:00: 00:00 MOUTH [place] 00 :00 TWICE Medical DAILY FOR Branch 27 DAYS diclofenac 2021-0 Yes TAKE 1 Unive [...] Pain for up to 10 days. ibuprofen 2-0 2022- No 600mg Take [address] [facility] [...] every 8 (eight) hours if needed. omeprazole 2-0 Yes [id number] 20mg Take 1 [facility] 20 mg 1-11 capsule by ity of capsule 00:00: mouth [place] 00 daily. Medical Branch liothyronin 2022-0 Yes [id number] 5ug Take 1 [facility] e 5 mcg 1-11 tablet by ity of tablet 00:00: mouth 2 [place] 00 (two) Medical times Branch daily. metoprolol 2022-0 Yes [id number] 100mg Take 1 [facility] succinate 1-11 tablet by ity o f XL 100 mg 00:00: mouth [place] 24 hr 00 daily. Medical tablet Branch felodipine 2021-0 Yes [id number] 5mg Take 1 U nivers 5 mg 24 hr 1-11 tablet by ity of tablet 00:00: mouth at [place] 00 bedtime. Medical Branch rosuvastati 2021-0 Yes [id number] 20mg Take 1 [facility] n 20 mg 1-11 tablet by ity of tablet 00:00: mouth at [place] 00 bedtime. Medical Branch omeprazole 2021-0 Yes [id number] 20mg Take 1 [facility] 20 mg 1-11 capsule by ity of capsule 00:00: mouth [place] 00 daily. Medical Branch liothyronin 2021-0 Yes [id number] 5ug Take 1 [facility] e 5 mcg 1-11 tablet by ity of tablet 00:00: mouth 2 [place] (two) Medical times Branch daily. metoprolol 2021-0 Yes [id number] 100mg Take 1 [facility] succinate 1-11 tablet by ity o f XL 100 mg 00:00: mouth [place] 24 hr 00 daily. Medical tablet Branch felodipine 2021-0 Yes [id number] 5mg Take 1 U nivers 5 mg 24 hr 1-11 tablet by ity of tablet 00:00: mouth at [place] 00 bedtime. Medical Branch rosuvastati 2021-0 Yes [id number] 20mg Take 1 [facility] n 20 mg 1-11 tablet by ity of tablet 00:00: mouth at [place] 00 bedtime. Medical Branch omeprazole 2021-0 Yes [id number] 20mg Take 1 [facility] 20 mg 1-11 capsule by ity of capsule 00:00: mouth [place] 00 daily. Medical Branch liothyronin 2021-0 Yes [id number] 5ug Take 1 [facility] e 5 mcg 1-11 tablet by ity of tablet 00:00: mouth 2 [place] (two) Medical times Branch daily. metoprolol 2021-0 Yes [id number] 100mg Take 1 [facility] succinate 1-11 tablet by ity o f XL 100 mg 00:00: mouth [place] 24 hr 00 daily. Medical tablet Branch felodipine 2021-0 Yes [id number] 5mg Take 1 U nivers 5 mg 24 hr 1-11 tablet by ity of tablet 00:00: mouth at [place] 00 bedtime. Medical Branch rosuvastati 2021-0 Yes [id number] 20mg Take 1 [facility] n 20 mg 1-11 tablet by ity of tablet 00:00: mouth at [place] 00 bedtime. Medical Branch omeprazole 0 Yes [id number] 20mg Take 1 [facility] 20 mg 1-11 capsule by ity of capsule 00:00: mouth [place] 00 daily. Medical Branch liothyronin 0 Yes [id number] 5ug Take 1 [facility] e 5 mcg 1-11 tablet by ity of tablet 00:00: mouth 2 [place] 00 (two) Medical times Branch daily. metoprolol 0 Yes [id number] 100mg Take 1 [facility] succinate 1-11 tablet by ity o f XL 100 mg 00:00: mouth [place] 24 hr 00 daily. Medical tablet Branch felodipine 0 Yes [id number] 5mg Take 1 U nivers 5 mg 24 hr 1-11 tablet by ity of tablet 00:00: mouth at [place] 00 bedtime. Medical Branch rosuvastati 0 Yes [id number] 20mg Take 1 [facility] n 20 mg 1-11 tablet by ity of tablet 00:00: mouth at [place] 00 bedtime. Medical Branch omeprazole 0 Yes [id number] 20mg Take 1 [facility] 20 mg 1-11 capsule by ity of capsule 00:00: mouth [place] 00 daily. Medical Branch liothyronin 0 Yes [id number] 5ug Take 1 [facility] e 5 mcg 1-11 tablet by ity of tablet 00:00: mouth 2 [place] (two) Medical times Branch daily. metoprolol 2021-0 Yes [id number] 100mg Take 1 [facility] succinate 1-11 tablet by ity o f XL 100 mg 00:00: mouth [place] 24 hr 00 daily. Medical tablet Branch rosuvastati 2021-0 Yes [id number] 20mg Take 1 [facility] n 20 mg 1-11 tablet by ity of tablet 00:00: mouth at [place] 00 bedtime. Medical Branch omeprazole 2021-0 Yes [id number] 20mg Take 1 [facility] 20 mg 1-11 capsule by ity of capsule 00:00: mouth [place] 00 daily. Medical Branch liothyronin 0 Yes [id number] 5ug Take 1 [facility] e 5 mcg 1-11 tablet by ity of tablet 00:00: mouth 2 [place] 00 (two) Medical times Branch daily. metoprolol 2021-0 Yes [id number] 100mg Take 1 [facility] succinate 1-11 tablet by ity o f XL 100 mg 00:00: mouth [place] 24 hr 00 daily. Medical tablet Branch rosuvastati Yes [id number] 20mg Take 1 [facility] n 20 mg 1-11 tablet by ity of tablet 00:00: mouth at [place] [address] bedtime. Medical Branch omeprazole 0 Yes [id number] 20mg Take 1 [facility] 20 mg 1-11 capsule by ity of capsule 00:00: mouth [place] 00 daily. Medical Branch liothyronin Yes [id number] 5ug Take 1 [facility] e 5 mcg 1-11 tablet by ity of tablet 00:00: mouth 2 [place] 00 (two) Medical times Branch daily. metoprolol Yes [id number] 100mg Take 1 [facility] succinate 1-11 tablet by ity o f XL 100 mg 00:00: mouth [place] 24 hr 00 daily. Medical tablet Branch rosuvastati Yes [id number] 20mg Take 1 [facility] n 20 mg 1-11 tablet by ity of tablet 00:00: mouth at [place] [address] bedtime. Medical Branch liothyronin 0 Yes 5ug [...] tablet 00 each day. felodipine 2021- No [id number] 5mg Take 1 [facility] 5 mg 24 hr - 12-15 tablet by ity of tablet 00:00: [...] ity of 24 hr 00:00: [place] tablet [facility] buPROPion 2020-0 Yes [facility] XL 300 mg 5-21 ity of 24 hr 00:00: [place] tablet [facility] buPROPion 2020-0 Yes [facility] XL 300 mg 5-21 ity of 24 hr 00:00: [place] tablet [facility] buPROPion 2020-0 Yes [facility] XL 300 mg 5-21 ity of 24 hr 00:00: [place] tablet [facility] buPROPion 2020-0 Yes [facility] XL 300 mg 5-21 ity of 24 hr 00:00: [place] tablet [facility] buPROPion 2020-0 Yes [facility] XL 300 mg 5-21 ity of 24 hr 00:00: [place] tablet 00 [facility] buPROPion 2020-0 Yes [facility] XL 300 mg 5-21 ity of 24 hr 00:00: [place] tablet [facility] escitalopra 2020-0 Yes 20mg Take 20 mg [facility] m oxalate 3-27 by mouth ity of 20 mg 00:00: daily. [place] tablet [facility] escitalopra 2020-0 Yes 20mg Take 20 mg [facility] m oxalate 3-27 by mouth ity of 20 mg 00:00: daily. [place] tablet 00 [facility] escitalopra 2020-0 Yes 20mg Take 20 mg [facility] m oxalate 3-27 by mouth ity of 20 mg 00:00: daily. [place] tablet [facility] escitalopra 2020-0 Yes 20mg Take 20 mg [facility] m oxalate 3-27 by mouth ity of 20 mg 00:00: daily. [place] tablet 00 [facility] escitalopra 2020-0 Yes 20mg Take 20 mg [facility] m oxalate 3-27 by mouth ity of 20 mg 00:00: daily. [place] tablet [facility] escitalopra 2019-0 Yes 20mg Take 20 mg [facility] m oxalate 3-27 by mouth ity of 20 mg 00:00: daily. [place] tablet 00 [facility] escitalopra [address]200 Yes 20mg Take 20 mg [facility] m oxalate 3-27 by mouth ity of 20 mg 00:00: daily. [place] [facility] 00 [facility] vortioxetin 2018-0 Yes 10mg QD Take [address] [facility] 10 mg Tab 6-28 by mouth [facility] 13:36: daily. [address] OLANZapine 2018-0 Yes 15mg QD Take [address] (ZYPREXA) 6-28 [facility] 15 MG 13:36: nightly. [facility] tablet [address] [place] [address] methylpheni 2018-0 Yes 54mg QD Take [address] date HCl 6-28 by mouth [facility] (CONCERTA) 13:36: every Medica l 54 MG CR 16 morning. [place] tablet liothyronin 2018-0 Yes 5ug Q.5D Take [address] [facility] [facility] (CYTOMEL) 6-28 by mouth 2 [place] [facility] 5 MCG 13:36: (two) Medical tablet 16 times Center daily. omeprazole 2018-0 Yes 40mg QD Take [address] (PRILOSEC) 6-28 [facility] 40 MG 13:36: every Medical capsule 16 morning. [place] metoprolol 2017-0 Yes 100mg QD Take [address] (TOPROL-XL) 6-28 mg [facility] 100 MG 24 13:36: mouth Medical hr tablet 16 daily. [place] vortioxetin 2018-0 Yes 10mg QD Take [address] [facility] 10 mg Tab 6-28 by mouth [facility] 13:36: daily. [address] OLANZapine 2018-0 Yes 15mg QD Take [address] (ZYPREXA) 6-28 [facility] 15 MG 13:36: nightly. Medical tablet 16 [place] methylpheni 2018-0 Yes 54mg QD Take [address] date HCl 6-28 by mouth [facility] (CONCERTA) 13:36: every Medica l 54 MG CR 16 morning. [place] tablet liothyronin 2018-0 Yes 5ug Q.5D Take [address] [facility] (CYTOMEL) 6-28 by mouth 2 [place] [facility] 5 MCG 13:36: (two) Medical tablet 16 times Center daily. omeprazole 2018-0 Yes 40mg QD Take [address] (PRILOSEC) 6-28 [facility] 40 MG 13:36: every Medical capsule 16 morning. [place] omeprazole 2018-0 Yes 40mg QD Take [address] (PRILOSEC) 6-28 [facility] 40 MG 13:36: every Medical capsule 16 morning. [place] metoprolol 2018-0 Yes 100mg QD Take [address] (TOPROL-XL) 6-28 mg [facility] 100 MG 24 13:36: mouth Medical hr tablet 16 daily. [place] vortioxetin 2018-0 Yes 10mg QD Take [address] [facility] 10 mg Tab 6-28 by mouth [facility] 13:36: daily. [address] OLANZapine 2018-0 Yes 15mg QD Take [address] (ZYPREXA) 6-28 by mouth [facility] 15 MG 13:36: nightly. Medical tablet 16 [place] metoprolol 2018-0 Yes 100mg QD Take [address] (TOPROL-XL) 6-28 mg by [facility] 100 MG 24 13:36: mouth Medical hr tablet 16 daily. [place] methylpheni 2018-0 Yes 54mg QD Take [address] [facility] date HCl 6-28 by mouth [facility] (CONCERTA) 13:36: every Medica l 54 MG CR 16 morning. [place] tablet liothyronin 2018-0 Yes 5ug Q.5D Take [address] [facility] (CYTOMEL) 6-28 by mouth 2 [place] [facility] 5 MCG 13:36: (two) Medical tablet 16 times [place] daily. vortioxetin 2018-0 Yes 10mg QD Take [address] [facility] 10 mg Tab 6-28 by mouth [facility] 13:36: daily. [address] OLANZapine 2018-0 Yes 15mg QD Take [address] (ZYPREXA) 6-28 by [facility] 15 MG 13:36: nightly. Medical tablet 16 [place] omeprazole 2018-0 Yes 40mg QD Take [address] (PRILOSEC) 6-28 by mouth [facility] 40 MG 13:36: every Medical capsule 16 morning. [place] metoprolol 2018-0 Yes 100mg QD Take [address] (TOPROL-XL) 6-28 mg by [facility] 100 MG 24 13:36: mouth Medical hr tablet 16 daily. [place] vortioxetin 2018-0 Yes 10mg QD Take [address] [facility] 10 mg Tab 6-28 by mouth [facility] 13:36: daily. Medical 16 [place] OLANZapine 2018-0 Yes 15mg QD Take [address] (ZYPREXA) 6-28 by mouth [facility] 15 MG 13:36: nightly. Medical tablet 16 [place] methylpheni 2018-0 Yes 54mg QD Take [address] date HCl 6-28 by mouth [facility] (CONCERTA) 13:36: every Medica l 54 MG CR 16 morning. Center tablet liothyronin 2018-0 Yes 5ug Q.5D Take [address] [facility] (CYTOMEL) 6-28 by mouth 2 [place] [facility] 5 MCG 13:36: (two) Medical tablet 16 times Center daily. methylpheni 2018-0 Yes 54mg QD Take [address] date HCl 6-28 by mouth [facility] (CONCERTA) 13:36: every Medica l 54 MG CR 16 morning. [place] tablet liothyronin 2018-0 Yes 5ug Q.5D Take [address] [facility] (CYTOMEL) 6-28 by mouth 2 [place] [facility] 5 MCG 13:36: (two) Medical tablet 16 times Center daily. omeprazole 2018-0 Yes 40mg QD Take [address] (PRILOSEC) 6-28 by mouth [facility] 40 MG 13:36: every Medical capsule 16 morning. [place] metoprolol 2018-0 Yes 100mg QD Take [address] (TOPROL-XL) 6-28 mg by [facility] 100 MG 24 13:36: mouth Medical hr tablet 16 daily. [place] vortioxetin 2018-0 Yes 10mg QD Take [address] [facility] 10 mg Tab 6-28 by mouth [facility] 13:36: daily. [address] OLANZapine 2018-0 Yes 15mg QD Take [address] (ZYPREXA) 6-28 by mouth [facility] 15 MG 13:36: nightly. Medical tablet 16 [place] methylpheni 2018-0 Yes 54mg QD Take [address] date HCl 6-28 by mouth [facility] (CONCERTA) 13:36: every Medica l 54 MG CR 16 morning. [place] tablet liothyronin 2018-0 Yes 5ug Q.5D Take [...] 13:36: mouth Medical hr tablet 16 daily. [place] vortioxetin 2018-0 Yes 10mg QD Take [address] [facility] 10 mg Tab 6-28 by mouth [facility] 13:36: daily. Medical 16 [place] OLANZapine 2018-0 Yes 15mg QD Take [address] (ZYPREXA) 6-28 by mouth [facility] 15 MG 13:36: nightly. Medical tablet 16 [place] methylpheni 2018-0 Yes 54mg QD Take [address] date HCl 6-28 by mouth [facility] (CONCERTA) 13:36: every Medica l 54 MG CR 16 morning. [place] tablet liothyronin 2018-0 Yes 5ug Q.5D Take [address] [facility] (CYTOMEL) 6-28 by mouth 2 [place] [facility] 5 MCG 13:36: (two) Medical tablet 16 times Center daily. omeprazole 2018-0 Yes 40mg QD Take [address] (PRILOSEC) 6-28 by mouth [facility] 40 MG 13:36: every Medical capsule 16 morning. [place] metoprolol 2018-0 Yes 100mg QD Take [address] (TOPROL-XL) 6-28 mg by [facility] 100 MG 24 13:36: mouth Medical hr tablet 16 daily. [place] vortioxetin 2018-0 Yes 10mg QD Take [address] [facility] 10 mg Tab 6-28 by mouth [facility] 13:36: daily. Medical 16 [place] OLANZapine 2018-0 Yes 15mg QD Take [address] (ZYPREXA) 6-28 by mouth [facility] 15 MG 13:36: nightly. Medical tablet 16 [place] methylpheni 2018-0 Yes 54mg QD Take [address] date HCl 6-28 by mouth [facility] (CONCERTA) 13:36: every Medica l 54 MG CR 16 morning. [place] tablet liothyronin 2018-0 Yes 5ug Q.5D Take [address] [facility] (CYTOMEL) 6-28 by mouth 2 [place] [facility] 5 MCG 13:36: (two) Medical tablet 16 times Center daily. omeprazole 2018-0 Yes 40mg QD Take [address] (PRILOSEC) 6-28 by mouth [facility] 40 MG 13:36: every Medical capsule 16 morning. [place] metoprolol 2018-0 Yes 100mg QD Take [address] (TOPROL-XL) 6-28 mg by [facility] 100 MG 24 13:36: mouth Medical hr tablet 16 daily. [place] vortioxetin 2018-0 Yes 10mg QD Take [address] [facility] 10 mg Tab 6-28 by mouth [facility] 13:36: daily. Medical 16 [place] OLANZapine 2018-0 Yes 15mg QD Take [address] (ZYPREXA) 6-28 by mouth [facility] 15 MG 13:36: nightly. Medical tablet 16 [place] methylpheni 2018-0 Yes 54mg QD Take [address] date HCl 6-28 by mouth [facility] (CONCERTA) 13:36: every Medica l 54 MG CR 16 morning. [place] tablet liothyronin 2018-0 Yes 5ug Q.5D Take [address] [facility] (CYTOMEL) 6-28 by mouth 2 [place] [facility] 5 MCG 13:36: (two) Medical tablet 16 times Center daily. omeprazole 2018-0 Yes 40mg QD Take [address] (PRILOSEC) 6-28 by mouth [facility] 40 MG 13:36: every Medical capsule 16 morning. [place] metoprolol 2018-0 Yes 100mg QD Take [address] (TOPROL-XL) 6-28 mg [facility] 100 MG 24 13:36: mouth Medical hr tablet 16 daily. [place] vortioxetin 2018-0 Yes 10mg QD Take [address] [facility] 10 mg Tab 6-28 by mouth [facility] 13:36: daily. Medical 16 [place] OLANZapine 2018-0 Yes 15mg QD Take [address] (ZYPREXA) 6-28 by [facility] 15 MG 13:36: nightly. Medical tablet 16 [place] methylpheni 2018-0 Yes 54mg QD Take [address] date HCl 6-28 by mouth [facility] (CONCERTA) 13:36: every Medica l 54 MG CR 16 morning. [place] tablet liothyronin 2018-0 Yes 5ug Q.5D Take [address] [facility] (CYTOMEL) 6-28 by mouth 2 [place] [facility] 5 MCG 13:36: (two) Medical tablet 16 times Center daily. omeprazole 2018-0 Yes 40mg QD Take [address] (PRILOSEC) 6-28 by mouth [facility] 40 MG 13:36: every Medical capsule 16 morning. [place] metoprolol 2018-0 Yes 100mg QD Take [address] (TOPROL-XL) 6-28 mg [facility] 100 MG 24 13:36: mouth Medical hr tablet 16 daily. [place] vortioxetin 2018-0 Yes 10mg QD Take [address] [facility] 10 mg Tab 6-28 by mouth [facility] 13:36: daily. Medical 16 [place] OLANZapine 2018-0 Yes 15mg QD Take [address] (ZYPREXA) 6-28 by mouth [facility] 15 MG 13:36: nightly. Medical tablet 16 [place] methylpheni 2018-0 Yes 54mg QD Take [address] date HCl 6-28 by mouth [facility] (CONCERTA) 13:36: every Medica l 54 MG CR 16 morning. [place] tablet liothyronin 2018-0 Yes 5ug Q.5D Take [address] [facility] (CYTOMEL) 6-28 by mouth 2 [place] [facility] 5 MCG 13:36: (two) Medical tablet 16 times Center daily. omeprazole 2018-0 Yes 40mg QD Take [address] (PRILOSEC) 6-28 by mouth [facility] 40 MG 13:36: every Medical capsule 16 morning. [place] metoprolol 2018-0 Yes 100mg QD Take [address] (TOPROL-XL) 6-28 mg [facility] 100 MG 24 13:36: mouth Medical hr tablet 16 daily. [place] vortioxetin 2018-0 Yes 10mg QD Take [address] [facility] 10 mg Tab 6-28 by mouth [facility] 13:36: daily. Medical 16 [place] OLANZapine 2018-0 Yes 15mg QD Take [address] (ZYPREXA) 6-28 by mouth [facility] 15 MG 13:36: nightly. Medical tablet 16 [place] methylpheni 2018-0 Yes 54mg QD Take [address] date HCl 6-28 by mouth [facility] (CONCERTA) 13:36: every Medica l 54 MG CR 16 morning. [place] tablet liothyronin 2018-0 Yes 5ug Q.5D Take [address] [facility] (CYTOMEL) 6-28 by mouth 2 [place] [facility] 5 MCG 13:36: (two) Medical tablet 16 times Center daily. omeprazole 2018-0 Yes 40mg QD Take [address] (PRILOSEC) 6-28 by mouth [facility] 40 MG 13:36: every Medical capsule 16 morning. [place] metoprolol 2018-0 Yes 100mg QD Take [address] (TOPROL-XL) 6-28 mg by [facility] 100 MG 24 13:36: mouth Medical hr tablet 16 daily. [place] vortioxetin 2018-0 Yes 10mg QD Take [address] [facility] 10 mg Tab 6-28 by mouth [facility] 13:36: daily. Medical 16 [place] OLANZapine 2018-0 Yes 15mg QD Take [address] (ZYPREXA) 6-28 by mouth [facility] 15 MG 13:36: nightly. Medical tablet 16 [place] methylpheni 2018-0 Yes 54mg QD Take [address] [address] date HCl 6-28 by mouth [facility] (CONCERTA) 13:36: every Medica l 54 MG CR 16 morning. [place] tablet liothyronin 2018-0 Yes 5ug Q.5D Take [address] [facility] (CYTOMEL) 6-28 by mouth 2 [place] 5 MCG 13:36: (two) Medical tablet 16 times Center daily. omeprazole 2018-0 Yes 40mg QD Take [address] (PRILOSEC) 6-28 by mouth [facility] 40 MG 13:36: every Medical capsule 16 morning. [place] metoprolol 2018-0 Yes 100mg QD Take [address] (TOPROL-XL) 6-28 mg by [facility] 100 MG 24 13:36: mouth Medical hr tablet 16 daily. [place] vortioxetin 2018-0 Yes 10mg QD Take [address] [facility] 10 mg Tab 6-28 by mouth [facility] 13:36: daily. Medical 16 [place] OLANZapine 2018-0 Yes 15mg QD Take [address] (ZYPREXA) 6-28 by mouth [facility] 15 MG 13:36: nightly. Medical tablet 16 [place] methylpheni 2018-0 Yes 54mg QD Take [address] [facility] [address] date HCl 6-28 by mouth [facility] (CONCERTA) 13:36: every Medica l 54 MG CR 16 morning. [place] tablet liothyronin 2018-0 Yes 5ug Q.5D Take [address] [facility] (CYTOMEL) 6-28 by mouth 2 [place] 5 MCG 13:36: (two) Medical tablet 16 times Center daily. omeprazole 2018-0 Yes 40mg QD Take [address] (PRILOSEC) 6-28 by mouth [facility] 40 MG 13:36: every Medical capsule 16 morning. [place] metoprolol 2018-0 Yes 100mg QD Take [address] (TOPROL-XL) 6-28 mg by [facility] 100 MG 24 13:36: mouth Medical hr tablet 16 daily. [place] vortioxetin 2018-0 Yes 10mg QD Take [address] [facility] 10 mg Tab 6-28 by mouth [facility] 13:36: daily. Medical 16 [place] OLANZapine 2018-0 Yes 15mg QD Take [address] (ZYPREXA) 6-28 by mouth [facility] 15 MG 13:36: nightly. Medical tablet 16 [place] methylpheni 2018-0 Yes 54mg QD Take [address] [facility] [address] date HCl 6-28 by mouth [facility] (CONCERTA) 13:36: every Medica l 54 MG CR 16 morning. [place] tablet liothyronin 2018-0 Yes 5ug Q.5D Take [address] [facility] (CYTOMEL) 6-28 by mouth 2 [place] 5 MCG 13:36: (two) Medical tablet 16 times Center daily. omeprazole 2018-0 Yes 40mg QD Take [address] (PRILOSEC) 6-28 by mouth [facility] 40 MG 13:36: every Medical capsule 16 morning. [place] metoprolol 2018-0 Yes 100mg QD Take [address] (TOPROL-XL) 6-28 mg [facility] 100 MG 24 13:36: mouth Medical hr tablet 16 daily. [place] vortioxetin 2018-0 Yes 10mg QD Take [address] [facility] 10 mg Tab 6-28 by mouth [facility] 13:36: daily. Medical 16 [place] OLANZapine 2018-0 Yes 15mg QD Take [address] (ZYPREXA) 6-28 by mouth [facility] 15 MG 13:36: nightly. Medical tablet 16 [place] methylpheni 2018-0 Yes 54mg QD Take [address] [facility] [address] date HCl 6-28 by mouth [facility] (CONCERTA) 13:36: every Medica l 54 MG CR 16 morning. [place] tablet liothyronin 2018-0 Yes 5ug Q.5D Take [address] [facility] (CYTOMEL) 6-28 by mouth 2 [place] [facility] 5 MCG 13:36: (two) Medical tablet 16 times Center daily. omeprazole 2018-0 Yes 40mg QD Take [address] (PRILOSEC) 6-28 by mouth [facility] 40 MG 13:36: every Medical capsule 16 morning. [place] metoprolol 2018-0 Yes 100mg QD Take [address] (TOPROL-XL) 6-28 mg by [facility] 100 MG 24 13:36: mouth Medical hr tablet 16 daily. [place] vortioxetin 2018-0 Yes 10mg QD Take [address] [facility] 10 mg Tab 6-28 by mouth [facility] 13:36: daily. Medical 16 [place] OLANZapine 2018-0 Yes 15mg QD Take [address] (ZYPREXA) 6-28 by mouth [facility] 15 MG 13:36: nightly. Medical tablet 16 [place] methylpheni 2018-0 Yes 54mg QD Take [address] date HCl 6-28 by mouth [facility] (CONCERTA) 13:36: every Medica l 54 MG CR 16 morning. [place] tablet liothyronin 2018-0 Yes 5ug Q.5D Take [address] [facility] (CYTOMEL) 6-28 by mouth 2 [place] [facility] 5 MCG 13:36: (two) Medical tablet 16 times Center daily. omeprazole 2018-0 Yes 40mg QD Take [address] (PRILOSEC) 6-28 by mouth [facility] 40 MG 13:36: every Medical capsule 16 morning. [place] metoprolol 2018-0 Yes 100mg QD Take [address] (TOPROL-XL) 6-28 mg [facility] 100 MG 24 13:36: mouth Medical hr tablet 16 daily. [place] vortioxetin 2018-0 Yes 10mg QD Take [address] [facility] 10 mg Tab 6-28 by mouth [facility] 13:36: daily. Medical 16 [place] OLANZapine 2018-0 Yes 15mg QD Take [address] [facility] (ZYPREXA) 6-28 [facility] 15 MG 13:36: nightly. Medical tablet 16 [place] methylpheni 2018-0 Yes 54mg QD Take [address] [facility] date HCl 6-28 by mouth [facility] (CONCERTA) 13:36: every Medica l 54 MG CR 16 morning. Center tablet liothyronin 2018-0 Yes 5ug Q.5D Take [address] [facility] (CYTOMEL) 6-28 by mouth 2 [place] kes 5 MCG 13:36: (two) Medical tablet 16 times Center daily. omeprazole 2018-0 Yes 40mg QD Take [address] [facility] (PRILOSEC) 6-28 [facility] 40 MG 13:36: every Medical capsule 16 morning. [place] metoprolol 2018-0 Yes 100mg QD Take [address] [facility] (TOPROL-XL) 6-28 mg by [facility] 100 MG 24 13:36: mouth Medical hr tablet 16 daily. [place] vortioxetin 2018-0 Yes 10mg QD Take [address] [facility] 10 mg Tab 6-28 by mouth [facility] 13:36: daily. Medical 16 [place] OLANZapine 2018-0 Yes 15mg QD Take [address] (ZYPREXA) 6-28 [facility] 15 MG 13:36: nightly. Medical tablet 16 [place] methylpheni 2018-0 Yes 54mg QD Take [address] [facility] date HCl 6-28 by mouth [facility] (CONCERTA) 13:36: every Medica l 54 MG CR 16 morning. [place] tablet liothyronin 2018-0 Yes 5ug Q.5D Take [address] [facility] (CYTOMEL) 6-28 by mouth 2 [place] kes 5 MCG 13:36: (two) Medical tablet 16 times Center daily. omeprazole 2018-0 Yes 40mg QD Take [address] [facility] (PRILOSEC) 6-28 [facility] 40 MG 13:36: every Medical capsule 16 morning. [place] metoprolol 2018-0 Yes 100mg QD Take [address] (TOPROL-XL) 6-28 mg by [facility] 100 MG 24 13:36: mouth Medical hr tablet 16 daily. Center metoprolol 2018-0 Yes 100mg QD Take [...] Immunizations Ordered Filled Immunization Date Status Comments [facility] Immunization Name Name influenza virus 2022-07-16 Completed [facility] vaccine, 16:15:00 inactivated Influenza Virus 2022-07-12 Completed [facility] Vaccine [facility], 00:00:00 [place] [facility] Preserv and ABX Branch Free 6 MO-64 YRS Influenza Virus 2022-07-12 Completed [facility] of Vaccine [facility] IM, 00:00:00 [facility] dical Preserv and ABX Branch Free 6 MO-64 YRS Influenza Virus 2022-07-12 Completed [facility]it y of Vaccine Quad IM, 00:00:00 [facility] dical Preserv and ABX Branch Free 6 MO-64 YRS Influenza Virus 2022-07-12 Completed [facility] Vaccine [facility] IM, 00:00:00 [place] [facility] Preserv and ABX Branch Free 6 MO-64 YRS Influenza Virus 2022-07-12 Completed [facility]it y of Vaccine Quad IM, 00:00:00 [facility] dical Preserv and ABX Branch Free 6 MO-[address] [facility] 2022-05-25 Completed University of 00[facility]00:00 [facility] Pneumococcal 20 2022-05-25 Completed Universit y of Conjugate, PCV20 00:00:00 [facility] dical (Prevnar 20) Branch [facility] 2022-05-25 Completed [facility] of 00:00:00 [facility] Pneumococcal 20 2022-05-25 Completed Universit y of Conjugate, PCV20 00:00:00 [facility] dical (Prevnar 20) Branch [facility] 2022-05-25 Completed [facility] of 00:00:00 [facility] Pneumococcal 20 2022-05-25 Completed Universit y of Conjugate, PCV20 00:00:00 [facility] dical (Prevnar 20) Branch [facility] 2022-05-25 Completed University of 00:00:00 [facility] Pneumococcal 20 2022-05-25 Completed Universit y of Conjugate, PCV20 00:00:00 [facility] dical (Prevnar 20) Branch [facility] 2022-05-25 Completed University of 00:00:00 [facility] Pneumococcal 20 2022-05-25 Completed Universit y of Conjugate, PCV20 00:00:00 [facility] dical (Prevnar 20) Branch [facility] 2022-05-25 Completed University of 00:00:00 [facility] Pneumococcal 20 2022-05-25 Completed Universit y of Conjugate, PCV20 00:00:00 [facility] dical (Prevnar 20) Branch [facility] 2022-05-25 Completed [facility] 00:00:00 [place] [facility] Pneumococcal 20 2022-05-25 Completed Universit y of Conjugate, PCV20 00:00:00 [place] [facility] (Prevnar 20) Branch SARS-COV-2 COVID-19 2021-10-21 [...] of Vaccine Quad IM, 00:00:00 [facility] dical Preserv and ABX Branch Free 6 MO-64 YRS Influenza Virus 2021-03-17 Completed [facility]it y of Vaccine [facility] IM, 00:00:00 [place] [facility] Preserv and ABX Branch Free [...] Universit y of Vaccine Quad IM, 00:00:00 [place] [facility] Preserv and ABX Branch Free [...] Unive rsity of MODERNA 12+ YRS 00:00:00 [facility] ical VACCINE Branch SARS-COV-2 COVID-19 2020-12-18 Completed Unive rsity of MODERNA 12+ YRS 00:00:00 [place] [facility] ical VACCINE Branch SARS-COV-2 COVID-19 2020-12-18 Completed Unive rsity of MODERNA 12+ YRS 00:00:00 [facility] ical VACCINE Branch Vital Signs Vital Name Observation Time Observation Value Comments Source Body height 2022-09-24 19:12:00 [facility]6 [facility] Body weight 2022-09-24 19:12:00 104[facility]327 [facility] BMI 2022-09-24 19:12:00 39.48 kg[facility]m2 [facility] Systolic blood 2022-09-18 16:28:00 114 mm[Hg] Univer sity of pressure [facility] Diastolic blood 2022-09-18 16:28:00 72 mm[Hg] Unive rsity of pressure [facility] Heart rate 2022-09-18 16:28:00 63 /min [facility] Body temperature 2022-09-18 16:28:00 37.06 [facility] Body height 2022-09-18 16:28:00 162.6 cm [facility] Body weight 2022-09-18 16:28:00 96.163 kg [facility] BMI 2022-09-18 16:28:00 36.39 kg/m2 [facility] Oxygen saturation in 2022-09-18 16:28:00 96 /min [facility] blood by [facility] Pulse oximetry Branch Body height 2022-09-17 17:51:00 [...] 19:22:00 99.791 kg Heart Rate 2022-07-17 13:07:11 [facility] [place] Respitory Rate 2022-07-17 13:07:11 Erika Lo Systolic (mm Hg) 2022-07-17 13:06:54 Stefan Mera Diastolic (mm Hg) 2022-07-17 13:06:54 Mem [facility] Heart Rate 2022-07-17 13:06:54 [facility] Temperature Oral (F) 2022-07-17 13:06:50 99 F [facility] [place] Heart Rate 2022-07-17 10:15:30 [facility] Respitory Rate 2022-07-17 10:15:30 Memori al [facility] Systolic (mm Hg) 2022-07-17 10:15:21 Stefan rial [place] Diastolic (mm Hg) 2022-07-17 10:15:21 Mem o[facility] Ede Temperature Oral (F) 2022-07-17 10:14:55 98.6 F [facility] Respitory Rate 2022-07-17 06:39:06 [facility] [place] Systolic (mm Hg) 2022-07-17 06:38:47 Stefan rial [facility] Diastolic (mm Hg) 2022-07-17 06:38:47 Mem orial Ede Temperature Oral (F) 2022-07-17 06:38:29 100.1 F [facility] [place] Height 2022-07-14 20:55:00 165.1 cm [facility] [place] Weight 2022-07-14 20:55:00 [facility] BMI Calculated 2022-07-14 20:55:00 Mem[facility] [place] Height 2022-07-02 12:57:00 162.56 cm [facility] [place] Weight 2022-07-02 12:57:00 [facility] [place] BMI Calculated 2022-07-02 12[facility]57[facility] [place] Sy[facility] 2022-06-07 03:01:00 120 mm[Hg] [facility] pressure Diastolic blood 2022-06-07 03:01:00 62 mm[Hg] [facility] pressure Heart rate 2022-06-07 03:01:00 65 /min [facility] Respiratory rate 2022-06-07 03:01:00 18 /min [facility] Oxygen saturation in 2022-06-07 03:01:00 97 /min [facility] Arterial blood by Pulse oximetry Body height 2022-06-06 23:39:00 165.1 cm [facility] Body weight 2022-06-06 23:39:00 99.791 kg [facility] BMI 2022-06-06 23:39:00 36.61 kg/m2 [facility] Body temperature 2022-06-06 23:27:39 36.72 [facility] Diastolic blood 2022-02-21 01:00:00 80 mm[Hg] [facility] Heart rate 2022-02-21 01:00:00 90 /min [facility] Body temperature 2022-02-21 01:00:[address] [facility] Respiratory rate 2022-02-21 01:00:00 18 /min [facility] Oxygen saturation in 2022-02-21 01:00:00 97 /min [facility] Arterial blood by Medical Ce nter Pulse oximetry Systolic blood 2022-02-21 01:00:00 151 mm[Hg] [facility] Body height 2022-02-20 19:22:00 165.1 cm [facility] Body weight 2022-02-20 19:22:00 99.791 kg [facility] BMI 2022-02-20 19:22:00 36.61 kg/m2 [facility] Procedures Procedure Date / Time Performing Clinician Source Performed CT PELVIS WO CONTRAST 2022-06-07 00:38:30 Elton Stringer [facility] MR LUMBAR SPINE WITHOUT 2022-02-20 21:52:00 Brian Morton [facility] IV CONTRAST Center Thyroidectomy [facility] EGD [facility] (esophagogastroduodenosc opy) gastric outlet reduction Colonoscopy [facility] LAMINECTOMY [facility] SUBTALAR FUSION [facility] Hysterectomy [facility] HERNIA REPAIR [facility] Plan of Care Planned Activity Planned Date Details Comments Source Future Scheduled 2022-10-01 Hepatitis C screening [facility] Test 11:57:26 (procedure) [code = 476374501] Future Scheduled 2022-10-01 Screening for [facility] Test 11:57:26 malignant neoplasm of cervix (procedure) [code = [id number]] Future Scheduled 2022-10-01 BREAST CANCER [facility] Test 11:57:26 SCREENING [code = BREAST CANCER SCREENING] Future Scheduled 2022-10-01 COLONOSCOPY SCREENING [facility] Test 11:57:26 [code = COLONOSCOPY SCREENING] Future Scheduled 2022-10-01 [facility]IN[facility] ([facility] 11:57:26 of 2) [code = SHINGLES VACCINES (1 of 2)] Future Scheduled 2022-10-01 COVID-19 VACCINE (4 - Me [facility] Test 11:57:26 Booster for Moderna series) [code = COVID-19 VACCINE (4 - Booster for Moderna series)] Future Scheduled 2022-10-01 INFLUENZA VACCINE [facility] Test 11:57:26 [code = INFLUENZA VACCINE] Future Scheduled 2022-09-28 Hepatitis C screening [facility] Test 01:56:16 (procedure) [code = [id number]] Future Scheduled 2022-09-28 BREAST CANCER [facility] Test 01:56:16 SCREENING [code = BREAST CANCER SCREENING] Future Scheduled 2022-09-28 COLONOSCOPY SCREENING [facility] Test 01:56:16 [code = COLONOSCOPY SCREENING] Future Scheduled 2022-09-28 SHINGLES VACCINES (1 Met [facility] Test 01:56:16 of 2) [code = SHINGLES VACCINES (1 of 2)] Future Scheduled 2022-09-28 COVID-19 VACCINE (4 - [facility] Test 01:56:16 Booster for Moderna series) [code = COVID-19 VACCINE (4 - Booster for Moderna series)] Future Scheduled 2022-09-28 INFLUENZA VACCINE [facility] Test 01:56:16 [code = INFLUENZA VACCINE] Future Scheduled 2022-09-24 Hepatitis C screening [facility] Test 13:04:41 (procedure) [code = [id number]] Future Scheduled 2022-09-24 BREAST CANCER [facility] Test 13:04:41 SCREENING [code = BREAST CANCER SCREENING] Future Scheduled 2022-09-24 COLONOSCOPY SCREENING [facility] Test 13:04:41 [code = COLONOSCOPY SCREENING] Future Scheduled 2022-09-24 SHINGLES VACCINES (1 Met [facility] Test 13:04:41 of 2) [code = SHINGLES VACCINES (1 of 2)] Future Scheduled 2022-09-24 COVID-19 VACCINE (4 - [facility] Test 13:04:41 Booster for Moderna series) [code = COVID-19 VACCINE (4 - Booster for Moderna series)] Future Scheduled 2022-09-24 INFLUENZA VACCINE [facility] Test 13:04:41 [code = INFLUENZA VACCINE] Future Scheduled 2022-09-17 HEPATITIS B VACCINES Met [facility] Test 11:46:18 (1 of 3 - 3-dose series) [code = HEPATITIS B VACCINES (1 of 3 - 3-dose series)] Future Scheduled 2022-09-17 Hepatitis C screening [facility] Test 11:46:18 (procedure) [code = [id number]] Future Scheduled 2022-09-17 Screening for [facility] Test 11:46:18 malignant neoplasm of cervix (procedure) [code = [id number]] Future Scheduled 2022-09-17 BREAST CANCER [facility] Test 11:46:18 SCREENING [code = BREAST CANCER SCREENING] Future Scheduled 2022-09-17 COLONOSCOPY SCREENING [facility] Test 11:46:18 [code = COLONOSCOPY SCREENING] Future Scheduled 2022-09-17 SHINGLES VACCINES (1 Met [facility] Test 11:46:18 of 2) [code = SHINGLES VACCINES (1 of 2)] Future Scheduled 2022-09-17 COVID-19 VACCINE (4 - [facility] Test 11:46:18 Booster for Moderna series) [code = COVID-19 VACCINE (4 - Booster for Moderna series)] Future Scheduled 2022-09-17 INFLUENZA VACCINE Method [facility] Test 11:46:18 [code = INFLUENZA VACCINE] Future Scheduled 2022-09-09 HEPATITIS B VACCINES Met [facility] Test 13:39:09 (1 of 3 - 3-dose series) [code = HEPATITIS B VACCINES (1 of 3 - 3-dose series)] Future Scheduled 2022-09-09 Hepatitis C screening [facility] Test 13:39:09 (procedure) [code = 230773690] Future Scheduled 2022-09-09 Screening for [facility] Test 13:39:09 malignant neoplasm of cervix (procedure) [code = 001912988] Future Scheduled 2022-09-09 BREAST CANCER [facility] Test 13:39:09 SCREENING [code = BREAST CANCER SCREENING] Future Scheduled 2022-09-09 COLONOSCOPY SCREENING [facility] Test 13:39:09 [code = COLONOSCOPY SCREENING] Future Scheduled 2022-09-09 SHINGLES VACCINES (1 Met [facility] Test 13:39:09 of 2) [code = SHINGLES VACCINES (1 of 2)] Future Scheduled 2022-09-09 COVID-19 VACCINE (4 - Me [facility] Test 13:39:09 Booster for Moderna series) [code = COVID-19 VACCINE (4 - Booster for Moderna series)] Future Scheduled 2022-09-09 INFLUENZA VACCINE Method [facility] Test 13:39:09 [code = INFLUENZA VACCINE] Future Scheduled 2022-08-26 HEPATITIS B VACCINES Met [facility] Test 10:11:29 (1 of 3 - 3-dose series) [code = HEPATITIS B VACCINES (1 of 3 - 3-dose series)] Future Scheduled 2022-08-26 Hepatitis C screening [facility] Test 10:11:29 (procedure) [code = [id number]] Future Scheduled 2022-08-26 Screening for [facility] Test 10:11:29 malignant neoplasm of cervix (procedure) [code = 511684236] Future Scheduled 2022-08-26 BREAST CANCER [facility] Test 10:11:29 SCREENING [code = BREAST CANCER SCREENING] Future Scheduled 2022-08-26 COLONOSCOPY SCREENING [facility] Test 10:11:29 [code = COLONOSCOPY SCREENING] Future Scheduled 2022-08-26 SHINGLES VACCINES (1 Met [facility] Test 10:11:29 of 2) [code = SHINGLES VACCINES (1 of 2)] Future Scheduled 2022-08-26 COVID-19 VACCINE (4 - [facility] Test 10:11:29 Booster for Moderna series) [code = COVID-19 VACCINE (4 - Booster for Moderna series)] Future Scheduled 2022-08-26 INFLUENZA VACCINE Method [facility] Test 10:11:29 [code = INFLUENZA VACCINE] Future Scheduled 2022-08-26 HEPATITIS B VACCINES Met [facility] Test 10:11:29 (1 of 3 - 3-dose series) [code = HEPATITIS B VACCINES (1 of 3 - 3-dose series)] Future Scheduled 2022-08-26 Hepatitis C screening [facility] Test 10:11:29 (procedure) [code = [id number]] Future Scheduled 2022-08-26 Screening for [facility] Test 10:11:29 malignant neoplasm of cervix (procedure) [code = 128525355] Future Scheduled 2022-08-26 BREAST CANCER [facility] Test 10:11:29 SCREENING [code = BREAST CANCER SCREENING] Future Scheduled 2022-08-26 COLONOSCOPY SCREENING [facility] Test 10:11:29 [code = COLONOSCOPY SCREENING] Future Scheduled 2022-08-26 SHINGLES VACCINES (1 Met [facility] Test 10:11:29 of 2) [code = SHINGLES VACCINES (1 of 2)] Future Scheduled 2022-08-26 COVID-19 VACCINE (4 - Me [facility] Test 10:11:29 Booster for Moderna series) [code = COVID-19 VACCINE (4 - Booster for Moderna series)] Future Scheduled 2022-08-26 INFLUENZA VACCINE Method [facility] Test 10:11:29 [code = INFLUENZA VACCINE] Future Scheduled 2022-08-26 HEPATITIS B VACCINES Met [facility] Test 10:11:29 (1 of 3 - 3-dose series) [code = HEPATITIS B VACCINES (1 of 3 - 3-dose series)] Future Scheduled 2022-08-26 Hepatitis C screening [facility] Test 10:11:29 (procedure) [code = 706056339] Future Scheduled 2022-08-26 Screening for [facility] Test 10:11:29 malignant neoplasm of cervix (procedure) [code = 663638207] Future Scheduled 2022-08-26 BREAST CANCER [facility] Test 10:11:29 SCREENING [code = BREAST CANCER SCREENING] Future Scheduled 2022-08-26 COLONOSCOPY SCREENING [facility] Test 10:11:29 [code = COLONOSCOPY SCREENING] Future Scheduled 2022-08-26 SHINGLES VACCINES (1 Met [facility] Test 10:11:29 of 2) [code = SHINGLES VACCINES (1 of 2)] Future Scheduled 2022-08-26 COVID-19 VACCINE (4 - [facility] Test 10:11:29 Booster for Moderna series) [code = COVID-19 VACCINE (4 - Booster for Moderna series)] Future Scheduled 2022-08-26 INFLUENZA VACCINE Method [facility] Test 10:11:29 [code = INFLUENZA VACCINE] Future Scheduled 2022-08-26 HEPATITIS B VACCINES Met [facility] Test 10:11:29 (1 of 3 - 3-dose series) [code = HEPATITIS B VACCINES (1 of 3 - 3-dose series)] Future Scheduled 2022-08-26 [facility] Test 10:11:29 (procedure) [code = [id number]] Future Scheduled 2022-08-26 Screening for [facility] Test 10:11:29 malignant neoplasm of cervix (procedure) [code = 473525422] Future Scheduled 2022-08-26 BREAST CANCER [facility] Test 10:11:29 SCREENING [code = BREAST CANCER SCREENING] Future Scheduled 2022-08-26 COLONOSCOPY SCREENING [facility] Test 10:11:29 [code = COLONOSCOPY SCREENING] Future Scheduled 2022-08-26 SHINGLES VACCINES (1 Met [facility] Test 10:11:29 of 2) [code = SHINGLES VACCINES (1 of 2)] Future Scheduled 2022-08-26 COVID-19 VACCINE (4 - Me [facility] Test 10:11:29 Booster for Moderna series) [code = COVID-19 VACCINE (4 - Booster for Moderna series)] Future Scheduled 2022-08-26 INFLUENZA VACCINE [facility] Test 10:11:29 [code = INFLUENZA VACCINE] Future Scheduled 2022-08-26 HEPATITIS B VACCINES Met [facility] Test 10:11:29 (1 of 3 - 3-dose series) [code = HEPATITIS B VACCINES (1 of 3 - 3-dose series)] Future Scheduled 2022-08-26 Hepatitis C screening [facility] Test 10:11:29 (procedure) [code = 309141475] Future Scheduled 2022-08-26 Screening for [facility] Test 10:11:29 malignant neoplasm of cervix (procedure) [code = 261255341] Future Scheduled 2022-08-26 BREAST CANCER [facility] Test 10:11:29 SCREENING [code = BREAST CANCER SCREENING] Future Scheduled 2022-08-26 COLONOSCOPY SCREENING [facility] Test 10:11:29 [code = COLONOSCOPY SCREENING] Future Scheduled 2022-08-26 SHINGLES VACCINES (1 Met [facility] Test 10:11:29 of 2) [code = SHINGLES VACCINES (1 of 2)] Future Scheduled 2022-08-26 COVID-19 VACCINE (4 - Me [facility] Test 10:11:29 Booster for Moderna series) [code = COVID-19 VACCINE (4 - Booster for Moderna series)] Future Scheduled 2022-08-26 INFLUENZA VACCINE [facility] Test 10:11:29 [code = INFLUENZA VACCINE] Future Scheduled 2022-08-26 HEPATITIS B VACCINES Met [facility] Test 10:11:29 (1 of 3 - 3-dose series) [code = HEPATITIS B VACCINES (1 of 3 - 3-dose series)] Future Scheduled 2022-08-26 Hepatitis C screening [facility] Test 10:11:29 (procedure) [code = 031951130] Future Scheduled 2022-08-26 Screening for [facility] Test 10:11:29 malignant neoplasm of cervix (procedure) [code = 384979720] Future Scheduled 2022-08-26 BREAST CANCER [facility] Test 10:11:29 SCREENING [code = BREAST CANCER SCREENING] Future Scheduled 2022-08-26 COLONOSCOPY SCREENING [facility] Test 10:11:29 [code = COLONOSCOPY SCREENING] Future Scheduled 2022-08-26 SHINGLES VACCINES (1 Met [facility] Test 10:11:29 of 2) [code = SHINGLES VACCINES (1 of 2)] Future Scheduled 2022-08-26 COVID-19 VACCINE (4 - [facility] Test 10:11:29 Booster for Moderna series) [code = COVID-19 VACCINE (4 - Booster for Moderna series)] Future Scheduled 2022-08-26 INFLUENZA VACCINE [facility] Test 10:11:29 [code = INFLUENZA VACCINE] Future Scheduled 2022-08-26 HEPATITIS B VACCINES Met [facility] Test 10:11:29 (1 of 3 - 3-dose series) [code = HEPATITIS B VACCINES (1 of 3 - 3-dose series)] Future Scheduled 2022-08-26 Hepatitis C screening [facility] Test 10:11:29 (procedure) [code = 390727962] Future Scheduled 2022-08-26 Screening for [facility] Test 10:11:29 malignant neoplasm of cervix (procedure) [code = 135236518] Future Scheduled 2022-08-26 BREAST CANCER [facility] Test 10:11:29 SCREENING [code = BREAST CANCER SCREENING] Future Scheduled 2022-08-26 COLONOSCOPY SCREENING [facility] Test 10:11:29 [code = COLONOSCOPY SCREENING] Future Scheduled 2022-08-26 SHINGLES VACCINES (1 Met [facility] Test 10:11:29 of 2) [code = SHINGLES VACCINES (1 of 2)] Future Scheduled 2022-08-26 COVID-19 VACCINE (4 - [facility] Test 10:11:29 Booster for Moderna series) [code = COVID-19 VACCINE (4 - Booster for Moderna series)] Future Scheduled 2022-08-26 INFLUENZA VACCINE Method [facility] Test 10:11:29 [code = INFLUENZA VACCINE] Future Scheduled 2022-08-26 HEPATITIS B VACCINES Met [facility] Test 10:11:29 (1 of 3 - 3-dose series) [code = HEPATITIS B VACCINES (1 of 3 - 3-dose series)] Future Scheduled 2022-08-26 Hepatitis C screening [facility] Test 10:11:29 (procedure) [code = 119343686] Future Scheduled 2022-08-26 Screening for [facility] Test 10:11:29 malignant neoplasm of cervix (procedure) [code = [id number]] Future Scheduled 2022-08-26 BREAST CANCER [facility] Test 10:11:29 SCREENING [code = BREAST CANCER SCREENING] Future Scheduled 2022-08-26 COLONOSCOPY SCREENING [facility] Test 10:11:29 [code = COLONOSCOPY SCREENING] Future Scheduled 2022-08-26 SHINGLES VACCINES (1 Met [facility] Test 10:11:29 of 2) [code = SHINGLES VACCINES (1 of 2)] Future Scheduled 2022-08-26 COVID-19 VACCINE (4 - [facility] Test 10:11:29 Booster for Moderna series) [code = COVID-19 VACCINE (4 - Booster for Moderna series)] Future Scheduled 2022-08-26 INFLUENZA VACCINE Method [facility] Test 10:11:29 [code = INFLUENZA VACCINE] Future Scheduled 2022-08-26 HEPATITIS B VACCINES Met [facility] Test 10:11:29 (1 of 3 - 3-dose series) [code = HEPATITIS B VACCINES (1 of 3 - 3-dose series)] Future Scheduled 2022-08-26 Hepatitis C screening [facility] Test 10:11:29 (procedure) [code = [id number]] Future Scheduled 2022-08-26 Screening for [facility] Test 10:11:29 malignant neoplasm of cervix (procedure) [code = [id number]] Future Scheduled 2022-08-26 BREAST CANCER [facility] Test 10:11:29 SCREENING [code = BREAST CANCER SCREENING] Future Scheduled 2022-08-26 COLONOSCOPY SCREENING [facility] Test 10:11:29 [code = COLONOSCOPY SCREENING] Future Scheduled 2022-08-26 SHINGLES VACCINES (1 Met [facility] Test 10:11:29 of 2) [code = SHINGLES VACCINES (1 of 2)] Future Scheduled 2022-08-26 COVID-19 VACCINE (4 - Me [facility] Test 10:11:29 Booster for Moderna series) [code = COVID-19 VACCINE (4 - Booster for Moderna series)] Future Scheduled 2022-08-26 INFLUENZA VACCINE Method [facility] Test 10:11:29 [code = INFLUENZA VACCINE] Future Scheduled 2022-08-26 HEPATITIS B VACCINES Met [facility] Test 10:11:29 (1 of 3 - 3-dose series) [code = HEPATITIS B VACCINES (1 of 3 - 3-dose series)] Future Scheduled 2022-08-26 Hepatitis C screening [facility] Test 10:11:29 (procedure) [code = [id number]] Future Scheduled 2022-08-26 Screening for [facility] Test 10:11:29 malignant neoplasm of cervix (procedure) [code = 779748925] Future Scheduled 2022-08-26 BREAST CANCER [facility] Test 10:11:29 SCREENING [code = BREAST CANCER SCREENING] Future Scheduled 2022-08-26 COLONOSCOPY SCREENING [facility] Test 10:11:29 [code = COLONOSCOPY SCREENING] Future Scheduled 2022-08-26 SHINGLES VACCINES (1 Met [facility] Test 10:11:29 of 2) [code = SHINGLES VACCINES (1 of 2)] Future Scheduled 2022-08-26 COVID-19 VACCINE (4 - [facility] Test 10:11:29 Booster for Moderna series) [code = COVID-19 VACCINE (4 - Booster for Moderna series)] Future Scheduled 2022-08-26 INFLUENZA VACCINE Method [facility] Test 10:11:29 [code = INFLUENZA VACCINE] Future Scheduled 2022-08-26 HEPATITIS B VACCINES Met [facility] Test 10:11:29 (1 of 3 - 3-dose series) [code = HEPATITIS B VACCINES (1 of 3 - 3-dose series)] Future Scheduled 2022-08-26 Hepatitis C screening [facility] Test 10:11:29 (procedure) [code = [id number]] Future Scheduled 2022-08-26 Screening for [facility] Test 10:11:29 malignant neoplasm of cervix (procedure) [code = 765457818] Future Scheduled 2022-08-26 BREAST CANCER [facility] Test 10:11:29 SCREENING [code = BREAST CANCER SCREENING] Future Scheduled 2022-08-26 COLONOSCOPY SCREENING [facility] Test 10:11:29 [code = COLONOSCOPY SCREENING] Future Scheduled 2022-08-26 SHINGLES VACCINES (1 Met [facility] Test 10:11:29 of 2) [code = SHINGLES VACCINES (1 of 2)] Future Scheduled 2022-08-26 COVID-19 VACCINE (4 - Me [facility] Test 10:11:29 Booster for Moderna series) [code = COVID-19 VACCINE (4 - Booster for Moderna series)] Future Scheduled 2022-08-26 INFLUENZA VACCINE Method [facility] Test 10:11:29 [code = INFLUENZA VACCINE] Future Scheduled 2022-08-26 HEPATITIS B VACCINES Met [facility] Test 10:11:29 (1 of 3 - 3-dose series) [code = HEPATITIS B VACCINES (1 of 3 - 3-dose series)] Future Scheduled 2022-08-26 Hepatitis C screening [facility] Test 10:11:29 (procedure) [code = [id number]] Future Scheduled 2022-08-26 Screening for [facility] Test 10:11:29 malignant neoplasm of cervix (procedure) [code = 323235702] Future Scheduled 2022-08-26 BREAST CANCER [facility] Test 10:11:29 SCREENING [code = BREAST CANCER SCREENING] Future Scheduled 2022-08-26 COLONOSCOPY SCREENING [facility] Test 10:11:29 [code = COLONOSCOPY SCREENING] Future Scheduled 2022-08-26 SHINGLES VACCINES (1 Met [facility] Test 10:11:29 of 2) [code = SHINGLES VACCINES (1 of 2)] Future Scheduled 2022-08-26 COVID-19 VACCINE (4 - [facility] Test 10:11:29 Booster for Moderna series) [code = COVID-19 VACCINE (4 - Booster for Moderna series)] Future Scheduled 2022-08-26 INFLUENZA VACCINE Method [facility] Test 10:11:29 [code = INFLUENZA VACCINE] Future Scheduled 2022-08-26 HEPATITIS B VACCINES Met [facility] Test 10:11:29 (1 of 3 - 3-dose series) [code = HEPATITIS B VACCINES (1 of 3 - 3-dose series)] Future Scheduled 2022-08-26 Hepatitis C screening [facility] Test 10:11:29 (procedure) [code = 765130731] Future Scheduled 2022-08-26 Screening for [facility] Test 10:11:29 malignant neoplasm of cervix (procedure) [code = 999577835] Future Scheduled 2022-08-26 BREAST CANCER [facility] Test 10:11:29 SCREENING [code = BREAST CANCER SCREENING] Future Scheduled 2022-08-26 COLONOSCOPY SCREENING [facility] Test 10:11:29 [code = COLONOSCOPY SCREENING] Future Scheduled 2022-08-26 SHINGLES VACCINES (1 Met [facility] Test 10:11:29 of 2) [code = SHINGLES VACCINES (1 of 2)] Future Scheduled 2022-08-26 COVID-19 VACCINE (4 - [facility] Test 10:11:29 Booster for Moderna series) [code = COVID-19 VACCINE (4 - Booster for Moderna series)] Future Scheduled 2022-08-26 INFLUENZA VACCINE Method [facility] Test 10:11:29 [code = INFLUENZA VACCINE] Future Scheduled 2022-06-30 HEPATITIS B VACCINES Met [facility] Test 12:34:57 (1 of 3 - 3-dose series) [code = HEPATITIS B VACCINES (1 of 3 - 3-dose series)] Future Scheduled 2022-06-30 Hepatitis C screening [facility] Test 12:34:57 (procedure) [code = 170844124] Future Scheduled 2022-06-30 Screening for [facility] Test 12:34:57 malignant neoplasm of cervix (procedure) [code = 696876433] Future Scheduled 2022-06-30 BREAST CANCER [facility] Test 12:34:57 SCREENING [code = BREAST CANCER SCREENING] Future Scheduled 2022-06-30 COLONOSCOPY SCREENING [facility] Test 12:34:57 [code = COLONOSCOPY SCREENING] Future Scheduled 2022-06-30 SHINGLES VACCINES (1 Met [facility] Test 12:34:57 of 2) [code = SHINGLES VACCINES (1 of 2)] Future Scheduled 2022-06-30 COVID-19 VACCINE (4 - [facility] Test 12:34:57 Booster for Moderna series) [...] Test 00:00:00 (procedure) [code = Medical Center [id number]] Future Scheduled [address] [facility] Test 00:00:00 (procedure) [code = Medical Center [id number]] Future Scheduled [address] [facility] Test 00:00:00 (procedure) [code = Medical Center 56465013] Future Scheduled [address] [facility] Test 00:00:00 (procedure) [code = Medical Center 89949913] Future Scheduled [address] [facility] Test 00:00:00 (procedure) [code = Medical Center 10542572] Future Scheduled [address] [facility] Test 00:00:00 (procedure) [code = Medical Center 69710669] Future Scheduled [address] [facility] Test 00:00:00 (procedure) [code = Medical Center [id number]] Future Scheduled [address] [facility] Test 00:00:00 (procedure) [code = Medical Center 18854466] Future Scheduled [address] [facility] Test 00:00:00 (procedure) [code = Medical Center 44522535] Future Scheduled [address] [facility] Test 00:00:00 (procedure) [code = Medical Center 16273340] Future Scheduled [address] [facility] Test 00:00:00 (procedure) [code = Medical Center 48132777] Future Scheduled [address] [facility] Test 00:00:00 (procedure) [code = Medical Center 23071158] Future Scheduled [address] [facility] Test 00:00:00 (procedure) [code = [facility] 62425115] Future Scheduled [address] [facility] Test 00:00:00 (procedure) [code = [facility] 45642043] Future Scheduled [address] [facility] Test 00:00:00 (procedure) [code = [facility] [id number]] Future Scheduled [address] [facility] Test 00:00:00 (procedure) [code = [facility] 65330938] Future Scheduled [address] [facility] Test 00:00:00 (procedure) [code = [facility] 43326465] Future Scheduled [address] [facility] Test 00:00:00 (procedure) [code = [facility] 02194173] Future Scheduled [address] [facility] Test 00:00:00 (procedure) [code = [facility] 13035362] Future Scheduled [address] [facility] Test 00:00:00 malignant [facility] cervix (procedure) [code = 662474904] Future Scheduled [address] [facility] Test 00:00:00 [facility] cervix (procedure) [code = 663241382] Future Scheduled [address] [facility] Test 00:00:00 [facility] cervix (procedure) [code = 964426354] Future Scheduled [address] [facility] Test 00:00:00 [facility] cervix (procedure) [code = 106107798] Future Scheduled [address] [facility] Test 00:00:00 malignant [facility] cervix (procedure) [code = 822112883] Future Scheduled [address] [facility] Test 00:00:00 [facility] cervix (procedure) [code = 982357979] Future Scheduled [address] [facility] Test 00:00:00 malignant [facility] cervix (procedure) [code = 450785977] Future Scheduled [address] [facility] Test 00:00:00 malignant [facility]oplasm [facility] cervix (procedure) [code = 379037456] Future Scheduled [address] [facility] Test 00:00:00 malignant [facility] cervix (procedure) [code = 154921267] Future Scheduled [address] [facility] Test 00:00:00 malignant [facility]oplasm [facility] cervix (procedure) [code = 630083976] Future Scheduled [address] [facility] Test 00:00:00 malignant [facility] cervix (procedure) [code = 033163292] Future Scheduled [address] [facility] Test 00:00:00 malignant [facility]oplasm [facility] cervix (procedure) [code = 122034874] Future Scheduled [address] [facility] Test 00:00:00 malignant [facility]oplasm [facility] cervix (procedure) [code = 146491159] Future Scheduled [address] [facility] Test 00:00:00 malignant [facility]oplasm of [facility] cervix (procedure) [code = 318305576] Future Scheduled [address] [facility] Test 00:00:00 malignant [facility]oplasm of [facility] cervix (procedure) [code = 577682374] Future Scheduled [address] [facility] Test 00:00:00 malignant [facility]oplasm of [facility] cervix (procedure) [code = 523625956] Future Scheduled [address] [facility] Test 00:00:00 malignant neoplasm of [facility] cervix (procedure) [code = 388121807] Future Scheduled [address] [facility] Test 00:00:00 malignant [facility]oplasm [facility] cervix (procedure) [code = 502128361] Future Scheduled [address] [facility] Test 00:00:00 malignant neoplasm of [facility] cervix (procedure) [code = 914155196] Future Scheduled 1982 DTAP/TDAP/TD VACCINES [facility] [...] Future Scheduled [address] [facility] Test 00:00:00 malignant neoplasm of [facility] Center breast (procedure) [code = 563543100] Future Scheduled [address] [facility] Test 00:00:00 (combo) [code = CT Medical C enter Colonography (combo)] Future Scheduled [address] [facility] Test 00:00:00 malignant [facility] colon (procedure) [code = 752713457] Future Scheduled [address] [facility] Test 00:00:00 malignant [facility] colon (procedure) [code = 194722276] Future Scheduled [address] [facility] Test 00:00:00 [facility] colon (procedure) [code = 927341131] Future Scheduled [address] [facility] Test 00:00:00 malignant [facility] colon (procedure) [code = 368321682] Future Scheduled 1963 Sigmoidoscopy [facility] Future Scheduled [address] [facility] Test 00:00:00 [facility] breast (procedure) [code = 239929701] Future Scheduled [address] [facility] Test 00:00:00 (combo) [code = CT Medical C enter Colonography (combo)] Future Scheduled [address] [facility] Test 00:00:00 malignant [facility] colon (procedure) [code = 089872292] Future Scheduled [address] [facility] Test 00:00:00 malignant [facility] colon (procedure) [code = 979592368] Future Scheduled [address] [facility] Test 00:00:00 [facility] colon (procedure) [code = 541734001] Future Scheduled [address] [facility] Test 00:00:00 malignant [facility] colon (procedure) [code = 222068530] Future Scheduled 1963 S[facility]oidoscopy [facility] [address] [facility] Test 00:00:00 malignant neoplasm of [facility] breast (procedure) [code = 424629499] Future Scheduled [address] [facility] Test 00:00:00 (combo) [code = CT Medical C enter Colonography (combo)] Future Scheduled [address] [facility] Test 00:00:00 malignant [facility] colon (procedure) [code = 963560948] Future Scheduled [address] [facility] Test 00:00:00 malignant [facility] colon (procedure) [code = 377325297] Future Scheduled [address] [facility] Test 00:00:00 malignant [facility] colon (procedure) [code = 104329290] Future Scheduled [address] [facility] Test 00:00:00 malignant [facility]oplasm [facility] colon (procedure) [code = 567607294] Future Scheduled 1963 [facility] r Future Scheduled [address] [facility] Test 00:00:00 malignant neoplasm of [facility] breast (procedure) [code = 723939268] Future Scheduled [address] [facility] Test 00:00:00 (combo) [code = CT Medical C enter Colonography (combo)] Future Scheduled [address] [facility] Test 00:00:00 malignant [facility] colon (procedure) [code = 442924151] Future Scheduled [address] [facility] Test 00:00:00 malignant [facility] colon (procedure) [code = 903492595] Future Scheduled [address] [facility] Test 00:00:00 malignant [facility]oplasm [facility] colon (procedure) [code = 500327238] Future Scheduled [address] [facility] Test 00:00:00 malignant [facility]oplasm of [facility] colon (procedure) [code = 146056544] Future Scheduled 1963 S[facility]oidoscopy [facility]] [facility] Future Scheduled [address] [facility] Test 00:00:00 malignant [facility] breast (procedure) [code = 432587777] Future Scheduled [address] [facility] Test 00:00:00 (combo) [code = CT Medical C enter Colonography (combo)] Future Scheduled [address] [facility] Test 00:00:00 malignant [facility]oplasm [facility] colon (procedure) [code = 240923795] Future Scheduled [address] [facility] Test 00:00:00 malignant neoplasm of [facility] colon (procedure) [code = 486881537] Future Scheduled [address] [facility] Test 00:00:00 malignant [facility]oplasm of [facility] colon (procedure) [code = 196020687] Future Scheduled [address] [facility] Test 00:00:00 malignant [facility]oplasm of [facility] colon (procedure) [code = 524553322] Future Scheduled 1963 [facility]oscopy [facility]] Medical [facility] Future Scheduled [address] [facility] Test 00:00:00 malignant [facility] breast (procedure) [code = 172274177] Future Scheduled [address] [facility] Test 00:00:00 (combo) [code = CT Medical C enter Colonography (combo)] Future Scheduled [address] [facility] Test 00:00:00 malignant [facility] breast (procedure) [code = 536173276] Future Scheduled [address] [facility] Test 00:00:00 (combo) [code = CT Medical C enter Colonography (combo)] Future Scheduled [address] [facility] Test 00:00:00 malignant [facility] of [facility] colon (procedure) [code = 671375648] Future Scheduled [address] [facility] Test 00:00:00 malignant [facility] of [facility] colon (procedure) [code = 014345434] Future Scheduled [address] [facility] Test 00:00:00 malignant [facility] of [facility] colon (procedure) [code = 556795393] Future Scheduled [address] [facility] Test 00:00:00 malignant [facility]oplasm of [facility] colon (procedure) [code = 415412334] Future Scheduled 1963 [facility]oscopy [facility] Cent[facility] Future Scheduled [address] [facility] Test 00:00:00 malignant [facility] colon (procedure) [code = 057240434] Future Scheduled [address] [facility] Test 00:00:00 malignant neoplasm of [facility] colon (procedure) [code = 772032076] Future Scheduled [address] [facility] Test 00:00:00 malignant [facility] of [facility] breast (procedure) [code = 504375585] Future Scheduled [address] [facility] Test 00:00:00 (combo) [code = CT Medical C enter Colonography (combo)] Future Scheduled [address] [facility] Test 00:00:00 malignant [facility]oplasm [facility] colon (procedure) [code = 372275759] Future Scheduled [address] [facility] Test 00:00:00 malignant [facility]oplasm of [facility] colon (procedure) [code = 331671763] Future Scheduled [address] [facility] Test 00:00:00 malignant neoplasm of [facility] colon (procedure) [code = 476084299] Future Scheduled [address] [facility] Test 00:00:00 malignant neoplasm of [facility] colon (procedure) [code = 643601996] Future Scheduled [address] [facility] Test 00:00:00 malignant neoplasm of [facility] colon (procedure) [code = 192179130] Future Scheduled 1963 [facility]oidoscopy [facility] [address] [facility] Test 00:00:00 malignant neoplasm of [facility] colon (procedure) [code = 568276375] Future Scheduled [address] [facility] Test 00:00:00 malignant [facility] of [facility] breast (procedure) [code = 548606326] Future Scheduled 1963 S[facility]oidoscopy [facility]] [facility] Future Scheduled [address] [facility] Test 00:00:00 (combo) [code = CT Medical C enter Colonography (combo)] Future Scheduled [address] [facility] Test 00:00:00 malignant neoplasm of [facility] Center colon (procedure) [code = 689878096] Future Scheduled [address] [facility] Test 00:00:00 malignant neoplasm of [facility] colon (procedure) [code = 556714368] Future Scheduled [address] [facility] Test 00:00:00 malignant neoplasm of [facility] colon (procedure) [code = 724073371] Future Scheduled [address] [facility] Test 00:00:00 malignant neoplasm of [facility] Center colon (procedure) [code = 390058924] Future Scheduled 1963 [facility] [address] [facility] Test 00:00:00 malignant neoplasm of [facility] Center breast (procedure) [code = 474644423] Future Scheduled [address] [facility] Test 00:00:00 (combo) [code = CT Medical C enter Colonography (combo)] Future Scheduled [address] [facility] Test 00:00:00 malignant neoplasm of [facility] colon (procedure) [code = 990251311] Future Scheduled [address] [facility] Test 00:00:00 malignant neoplasm of [facility] colon (procedure) [code = 158894715] Future Scheduled [address] [facility] Test 00:00:00 malignant neoplasm of [facility] colon (procedure) [code = 910817178] Future Scheduled [address] [facility] Test 00:00:00 malignant neoplasm of [facility] colon (procedure) [code = 493833854] Future Scheduled 1963 Sigmoidoscopy [facility]] Medical [facility] Future Scheduled [address] [facility] Test 00:00:00 malignant [facility] of [facility] breast (procedure) [code = 627960089] Future Scheduled [address] [facility] Test 00:00:00 (combo) [code = CT Medical C enter Colonography (combo)] Future Scheduled [address] [facility] Test 00:00:00 malignant neoplasm of [facility] colon (procedure) [code = 877580620] Future Scheduled [address] [facility] Test 00:00:00 malignant neoplasm of [facility] colon (procedure) [code = 706957125] Future Scheduled [address] [facility] Test 00:00:00 malignant [facility]oplasm of [facility] colon (procedure) [code = 560457076] Future Scheduled [address] [facility] Test 00:00:00 malignant [facility] of [facility] colon (procedure) [code = 822095126] Future Scheduled 1963 Sigmoidoscopy [facility]] Medical [facility] Future Scheduled [address] [facility] Test 00:00:00 malignant [facility] breast (procedure) [code = 728726480] Future Scheduled [address] [facility] 00:00:00 (combo) [code = CT Medical C enter Colonography (combo)] Future Scheduled [address] [facility] Test 00:00:00 malignant [facility] of [facility] colon (procedure) [code = 990500129] Future Scheduled [address] [facility] colon (procedure) [code = 698321171] Future Scheduled [address] [facility] 00:[facility]:00 [facility] colon (procedure) [code = 842740439] Future Scheduled [address] [facility] 00:[facility]:00 [facility] colon (procedure) [code = 668606276] Future Scheduled 1963 S[facility]oid[facility] Cent[facility] r Future Scheduled [address] [facility] 00:[facility]:00 [facility] breast (procedure) [code = 117191795] Future Scheduled [address] [facility] 00:00:00 (combo) [code = CT Medical C enter Colonography (combo)] Future Scheduled [address] [facility] 00:00:00 [facility] colon (procedure) [code = 267408777] Future Scheduled [address] [facility] 00:00:00 malignant [facility] colon (procedure) [code = 364018544] Future Scheduled [address] [facility] 00:00:00 [facility] colon (procedure) [code = 122843532] Future Scheduled [address] [facility] 00:00:00 [facility] colon (procedure) [code = 560516773] Future Scheduled 1963 S[facility]oidoscopy [facility]] Medical Cente r Future Scheduled [address] [facility] 00:00:00 [facility] breast (procedure) [code = 635579639] Future Scheduled [address] [facility] 00:00:00 (combo) [code = CT Medical C enter Colonography (combo)] Future Scheduled [address] [facility] 00:00:00 [facility] colon (procedure) [code = 073587965] Future Scheduled [address] [facility] 00:00:00 [facility] colon (procedure) [code = 516881275] Future Scheduled [address] [facility] 00:00:00 [facility] colon (procedure) [code = 593516350] Future Scheduled [address] [facility] 00:00:00 [facility] colon (procedure) [code = 646029053] Future Scheduled 1963 [facility] [address] [facility] 00:00:00 malignant ne[facility] breast (procedure) [code = 016656264] Future Scheduled [address] [facility] 00:00:00 (combo) [code = CT Medical C enter Colonography (combo)] Future Scheduled [address] [facility] 00:00:00 [facility] colon (procedure) [code = 882102959] Future Scheduled [address] [facility] 00:00:00 [facility] colon (procedure) [code = 569819081] Future Scheduled [address] [facility] 00:00:00 [facility] colon (procedure) [code = 916833300] Future Scheduled [address] [facility] 00:00:00 malignant [facility] colon (procedure) [code = 844447118] Future Scheduled 1963 S[facility]oidoscopy [facility] [address] [facility] 00:00:00 malignant [facility] breast (procedure) [code = 768012365] Future Scheduled [address] [facility] 00:00:00 (combo) [code = CT Medical C enter Colonography (combo)] Future Scheduled [address] [facility] 00:00:00 [facility] colon (procedure) [code = 618756678] Future Scheduled [address] [facility] 00:00:00 [facility] colon (procedure) [code = 254230522] Future Scheduled [address] [facility] 00:00:00 [facility] colon (procedure) [code = 950471327] Future Scheduled [address] [facility] 00:00:00 malignant [facility] colon (procedure) [code = 543104648] Future Scheduled 1963 [facility]] [facility] Future Scheduled [address] [facility] 00:00:00 malignant neoplasm [facility] breast (procedure) [code = 815978067] Future Scheduled [address] [facility] 00:00:00 (combo) [code = CT Medical C enter Colonography (combo)] Future Scheduled [address] [facility] 00:00:00 malignant [facility] colon (procedure) [code = 683279052] Future Scheduled [address] [facility] 00:00:00 malignant [facility] colon (procedure) [code = 841673342] Future Scheduled [address] [facility] 00:00:00 malignant ne[facility] colon (procedure) [code = 665392306] Future Scheduled [address] [facility] 00:00:00 malignant neoplasm [facility] colon (procedure) [code = 458025134] Future Scheduled 1963 Sigmoidoscopy [facility]] Medical Cente r Future Scheduled [address] [facility] 00:00:00 malignant [facility] breast (procedure) [code = 782488436] Future Scheduled [address] [facility] 00:00:00 (combo) [code = CT Medical C enter Colonography (combo)] Future Scheduled [address] [facility] 00:00:00 malignant neoplasm [facility] colon (procedure) [code = 736256110] Future Scheduled [address] [facility] 00:00:00 malignant neoplasm [facility] colon (procedure) [code = 446837285] Future Scheduled [address] [facility] 00:00:00 malignant [facility] colon (procedure) [code = 874769724] Future Scheduled [address] [facility] 00:00:00 malignant neoplasm [facility] colon (procedure) [code = 665288008] Future Scheduled 1963 [facility]oidoscopy [facility]] [facility] [address] [facility] 00:00:00 malignant neoplasm [facility] breast (procedure) [code = 448040514] Future Scheduled [address] [facility] 00:00:00 (combo) [code = CT Medical C enter Colonography (combo)] Future Scheduled [address] [facility] 00:00:00 malignant neoplasm [facility] colon (procedure) [code = 768439634] Future Scheduled [address] [facility] 00:00:00 malignant neoplasm [facility] colon (procedure) [code = 653996358] Future Scheduled [address] [facility] 00:00:00 malignant neoplasm [facility] colon (procedure) [code = 361471379] Future Scheduled [address] [facility] 00:00:00 malignant neoplasm of [facility] colon (procedure) [code = 707467258] Future Scheduled 1963 [facility]] Medical [facility] r Encounters Start End Encounter Admission Attending Care Care Encounter Source Date/Time Date/Time Type Type Clinicians Facility Department ID 2022-09-23 Outpatient [facility] [id number] [place] 10:30:[id number] [facility] 2022-09-17 Outpatient [facility] [id number] [place] 10:15:[id number] [facility] 2022-09-02 Outpatient [facility] [id number] [place] 11:19:[id number] [facility] 2022-08-28 Outpatient [facility] [id number] [place] 08:34:[id number] [facility] 2022-08-20 Outpatient [facility] [id number] [place] 09:28:[id number] [facility] 2022-08-11 Outpatient [facility] [id number] [place] 16:02:[id number] [facility] 2022-07-28 Outpatient [facility] [id number] [place] 09:55:[id number] [facility] 2022-05-27 Outpatient R INGA [facility] SOR [id number] Univers 15:20:24 [facility] 2022-05-27 [facility] [id number] Univers 11:58:36 RHETT [facility] 2021-08-09 Emergency [facility] [id number] Univers 12:48:28 [facility] 2023-03-19 2023-03-19 Outpatient R RINKU [facility] [id number] Univers 10:30:00 10:30:00 MARCIAL carroll [facility] 2022-10-01 2022-10-01 Outpatient ELMER [facility] [id number] [place] 14:45:00 14:45:[facility]22-09-28 2022-09-28 [facility] [id number] 10:44:00 16:14:00 [facility] 2022-09-28 2022-09-28 Patient Rinku [facility] 1.2.840.114 [id number] Univers 00:00:00 00:00:00 Secure Msg Marcial HEALTH 350.1.13.10 ity of [place] 4.2.7.2.686 Branden as VIKTOR?BLEA [id number] [address] OFFICE [facility] 2022-09-24 2022-09-24 Office Elmer [facility] 1.2.840.114 [id number] [place] 13:15:00 13:44:29 Visit Barry N[facility]LES 350.1.13.58 [facility] MEDICAL 9.2.7.2.686 [address] [id number] 5 2022-09-24 2022-09-24 Outpatient [facility] [id number] [place] 09:45:00 09:45:00 BARRY Health 2022-09-24 2022-09-24 [facility] 1.2.840.114 [id number] [facility] 00:00:00 00:00:00 Wondiful A HEALTH 350.1.13.10 ity of [place] 4.2.7.2.686 Branden as VIKTOR?BLEA [id number] [address] OFFICE [facility] 2022-09-22 2022-09-22 Emergency E [place] MHSE [id number] MH 10:06:00 11:45:[address] [facility] 2022-09-18 2022-09-18 [facility] [id number] Univers 10:30:00 10:54:17 MARCIAL lgen [facility] 2022-09-18 2022-09-18 [facility] 1.2.840.114 [id number] Univers 10:30:00 10:54:17 Visit Marcial HEALTH 350.1.13.10 [facility] 4.2.7.2.686 Branden as VIKTOR?BLEA [id number] [address] OFFICE [facility] 2022-09-17 2022-09-17 Office Elmer [facility] 1.2.840.114 [id number] [place] 10:45:00 12:09:[address] 350.1.13.58 [facility] MEDICAL 9.2.7.2.686 [address] [id number] 5 2022-09-07 2022-09-09 Inpatient [id number] 05:32:00 12:44:00 [facility] 2022-09-02 2022-09-02 Outpatient [facility] [id number] [place] 00:00:00 11:59:21 Health 2022-09-02 2022-09-02 Outpatient ELMER, [facility] [id number] [place] 10:45:00 11:59:05 [facility] 2022-08-27 2022-08-27 [facility] [id number] [place] 10:45:00 10:45:00 [facility] 2022-08-21 2022-08-21 Outpatient [facility] [id number] [place] 00:00:00 11:20:58 [facility] 2022-08-21 2022-08-21 Outpatient [facility] [id number] [place] 00:05:00 11:20:47 Health 2022-08-21 2022-08-21 [facility] [id number] [place] 10:15:00 11:20:01 [facility] 2022-08-06 2022-08-06 Office Elmer [facility] 1.2.840.114 [id number] [place] 10:15:00 11:25:11 Visit [facility] 350.1.13.58 [facility] 9.2.7.2.686 [address] [id number] 5 2022-08-06 2022-08-06 Outpatient ELMER, [facility] [id number] [place] 10:15:00 10:15:00 [facility] 2022-07-30 2022-07-30 [facility] 1.2.840.114 [id number] [place] 10:15:00 10:41:42 Visit [facility] 350.1.13.58 [facility] MEDICAL 9.2.7.2.686 [address] 5 [id number] 5 2022-07-23 2022-07-23 [facility] 1.2.840.114 [id number] [place] 14:45:00 15:50:46 Visit Barry MELGAR 350.1.13.58 [facility] MEDICAL 9.2.7.2.686 [address] 2 [phone] 5 2022-07-14 2022-07-17 Inpatient [facility] [id number] [facility] 10:32:00 16:00:00 r Ede 00 l [facility] 2022-07-14 2022-07-17 Inpatient [place], [place] SE [id number] 05:32:00 11:00:00 [facility] 2022-07-10 2022-07-10 Office Payne, [facility] 1.2.840.114 [id number] [place] 10:45:00 11:24:21 Visit Barry MELGAR 350.1.13.58 [facility] 9.2.7.2.686 [address] [id number] 5 2022-06-26 2022-06-26 Outpatient Kurtis GALINDO [facility] [id number] [facility] 09:00:00 09:00:00 RADHA [facility] 2022-06-24 2022-06-24 Office Payne [facility] 1.2.840.114 [id number] [place] 08:30:00 09:19:49 Visit Barry MELGAR 350.1.13.58 [facility] 9.2.7.2.686 [address] [id number] 5 2022-06-19 2022-06-19 Patient Rinku [facility] 1.2.840.114 [id number] Univers 00:00:00 00:00:00 Secure Msg Marcial HEALTH 350.1.13.10 ity of [place] 4.2.7.2.686 Branden as VIKTOR?BLEA [id number] Ri clemente [address] MEDICAL OFFICE BUILDING 2022-06-19 2022-06-19 Telephone Rinku [facility] 1.2.513.433 [id number] Univers 00:00:00 00:00:00 Marcial HEALTH 350.1.13.10 it y of [place] 4.2.7.2.686 Branden as VIKTOR?BLEA [phone] Ri dical [address] OFFICE [facility] 2022-06-17 2022-06-17 Telephone Rinku [facility] 1.2.380.709 [id number] Univers 00:00:00 00:00:00 Marcial ALMAZAN 350.1.13.10 i [place] [id number] [address] 2022-06-17 2022-06-17 Telephone [facility] 1.2.047.274 [id number] Univers 00:00:00 00:00:00 Marcial HEALTH 350.1.13.10 it [facility] 4.2.7.2.686 Branden as VIKTOR?BLEA [id number] [address] OFFICE [facility] 2022-06-16 2022-06-16 [facility], Ang - Db [facility] 1.2.840.1 14 [id number] Univers 16:30:00 16:30:26 Visit Marcial Dobbs 350.1.13.10 ity [facility] 4.2.7.2.686 Branden as VIKTOR?BLEA [id number] [address] OFFICE [facility] 2022-06-16 2022-06-16 Outpatient R RINKU [facility] [id number] Univers 16:30:00 16:30:00 MARCIAL itleigh of [facility] 2022-06-16 2022-06-16 Telephone [facility] 1.2.212.634 [id number] Univers 00:00:00 00:00:00 Marcial HEALTH 350.1.13.10 it y [facility] 4.2.7.2.686 Branden as VIKTOR?BLEA [id number] [address] OFFICE [facility] 2022-06-12 2022-06-12 [facility], Ang - Db [facility] 1.2.840.1 14 [id number] Univers 16:15:00 16:17:26 Visit Marcial Dobbs 350.1.13.10 ity [facility] 4.2.7.2.686 Branden as VIKTOR?BLEA [id number] [address] OFFICE [facility] 2022-06-12 2022-06-12 Outpatient R RINKU [facility] [id number] Univers 16:15:00 16:15:00 MARCIAL carroll [facility] 2022-06-12 2022-06-12 Outpatient R RINKU [facility] [id number] Univers 15:30:00 15:55:09 MARCIAL carroll [facility] 2022-06-12 2022-06-12 Office Rinku [facility] 1.2.840.114 [id number] Univers 15:30:00 15:55:09 Visit Marcial CINTRON 350.1.13.10 it y of [place] 4.2.7.2.686 Branden as VIKTOR?BLEA [id number] [address] OFFICE [facility] 2022-06-12 2022-06-12 Outpatient R RINKU [facility] [id number] Univers 15:30:00 15:55:09 MARCIAL carroll [facility] 2022-06-11 2022-06-11 Outpatient [facility] [id number] [place] 00:00:00 16:22:00 Health 2022-06-11 2022-06-11 Office Elmer [facility] 1.2.840.114 [id number] [place] 09:30:00 10:49:04 Visit Barry MELGAR 350.1.13.58 [facility] 9.2.7.2.686 [address] 0 [id number] 5 2022-06-09 2022-06-09 Telephone Rinku [facility] 1.2.607.495 [id number] Univers 00:00:00 00:00:00 Marcial Mercora 350.1.13.10 it y of [place] 4.2.7.2.686 Branden as VIKTOR?BLEA [id number] [address] OFFICE [facility] 2022-06-08 2022-06-08 Outpatient R CAYDEN MUIR [facility] [id number] Univers 08:30:00 08:30:00 leigh [facility] 2022-06-08 2022-06-08 Outpatient FOG_A_Provi AOSM AOSM [id number] Grace 00:00:00 00:00:00 alyx [id number] Orthop e [facility] 2022-06-08 2022-06-08 Telephone Peymanamy [facility] 1.2.547.791 [id number] Univers 00:00:00 00:00:00 Marcial [facility] 350.1.13.10 it y of [place] 4.2.7.2.686 Branden as VIKTOR?BLEA [phone] Ri dical [address] MEDICAL OFFICE BUILDING 2022-06-06 2022-06-06 Emergency Berry, 1.2.840.1 [id number] Methodi 18:21:00 22:14:[address] Yaya 3.430.2.7 Hospit a .3.517494 l .8 2022-06-06 2022-06-06 Emergency Berry, 1.2.840.1 [id number] Methodi 18:21:00 22:14:[address] Yaya 3.430.2.7 Hospit a .3.411164 l .8 2022-06-06 2022-06-06 Travel 1.2.840.1 1.2.447.640 [id number] Methodi 00:00:00 00:00:[address] 3.430.2.7 0.2.7.3.698 Ho spita .3.960130 084.8 l .8 2022-06-06 2022-06-06 Travel 1.2.840.1 1.2.798.162 [id number] Methodi 00:00:00 00:00:[address] 3.430.2.7 0.2.7.3.698 Ho spita .3.188190 084.8 l .8 2022-06-04 2022-06-04 Outpatient GALA JACK SOR [id number] Univers 07:10:00 07:10:00 RHETT carroll [facility] 2022-05-27 2022-05-27 [facility] [id number] Univers 08:50:00 10:25:10 RHETT carroll [facility] 2022-05-27 2022-05-27 [facility] 1.2.840.114 [id number] Univers 08:50:00 10:25:10 Visit Rhett Poncho SPECIALTY 350.1.13.10 ity of [place] [phone] Ri clemente Olmos [facility] 2022-05-27 2022-05-27 Outpatient [facility] [id number] Univers 08:50:00 10:25:10 RHETT carroll [facility] 2022-05-27 2022-05-27 Office [facility] 1.2.840.114 [id number] Univers 08:50:00 10:25:10 Visit Rhett Isaac SPECIALTY 350.1.13.10 [place] [phone] Ri clemente Olmos [facility] 2022-05-27 2022-05-27 Outpatient [facility] [id number] Univers 08:50:00 08:50:00 RHETT carroll [facility] 2022-05-27 2022-05-27 Telephone [facility] 1.2.669.429 [id number] Univers 00:00:00 00:00:00 Marcial HEALTH 350.1.13.10 it y of [place] 4.2.7.2.686 Branden as VIKTOR?BLEA [id number] [address] OFFICE [facility] 2022-05-27 2022-05-27 Telephone [facility] 1.2.713.177 [id number] Univers 00:00:00 00:00:00 Marcial HEALTH 350.1.13.10 it y of [place] 4.2.7.2.686 Branden as VIKTOR?BLEA [id number] [address] OFFICE [facility] 2022-05-27 2022-05-27 Telephone [facility] 1.2.042.855 [id number] Univers 00:00:00 00:00:00 Marcial HEALTH 350.1.13.10 it y of [place] 4.2.7.2.686 Branden as VIKTOR?BLEA [id number] Ri clemente [address] OFFICE [facility] 2022-05-27 2022-05-27 Telephone Rinku [facility] 1.2.576.112 [id number] Univers 00:00:00 00:00:00 Marcial HEALTH 350.1.13.10 it y of [place] 4.2.7.2.686 Branden as VIKTOR?BLEA [id number] [facility] [address] OFFICE [facility] 2022-05-26 2022-05-26 [facility], Ang - [facility] 1.2.840.1 14 [id number] Univers 07:30:00 07:45:00 Visit Marcial Dobbs 350.1.13.10 ity of [place] 4.2.7.2.686 Branden as VIKTOR?BLEA [phone] Ri clemente LANDON [address] [facility] OFFICE [facility] 2022-05-26 2022-05-26 Outpatient R RINKU [facility] [id number] Univers 07:30:00 07:30:00 MARCIAL carroll [facility] 2022-05-25 2022-05-25 Outpatient R PEYMANAmy [facility] [id number] Univers 14:00:00 14:55:12 MARCIAL carroll [facility] 2022-05-25 2022-05-25 Office [facility] 1.2.840.114 [id number] Univers 14:00:00 14:55:12 Visit Marcial CINTRON 350.1.13.10 it y of [place] 4.2.7.2.686 Branden as VIKTOR?BLEA [id number] [facility] [address] OFFICE [facility] 2022-05-25 2022-05-25 Outpatient R RINKU [facility] [id number] Univers 14:00:00 14:55:12 MARCIAL carroll [facility] 2022-05-25 2022-05-25 Outpatient R PEYMANAmy [facility] [id number] Univers 14:00:00 14:00:00 MARCIALELIZA carroll [facility] 2022-05-23 2022-05-23 [facility] [id number] Univers 11:20:00 11:47:56 YAMINI ity of [facility] 2022-05-23 2022-05-23 Urgent [facility] 1.2.840.114 [id number] Univers 11:20:00 11:47:56 Care Yamini HEALTH 350.1.13.10 it y of [place] 4.2.7.2.686 Branden as VIKTOR?BLEA [id number] [facility] [address] MEDICAL OFFICE [facility] 2022-05-20 2022-05-20 [facility] 1.2.324.494 [id number] Univers 17:49:00 23:59:00 Encounter Arnoldo HEALTH 350.1.13.10 ity of [place] 4.2.7.2.686 Branden as VIKTOR?BLEA [id number] [facility] [address] [facility] 2022-05-20 2022-05-20 Outpatient [facility] [id number] Univers 17:31:41 17:48:00 ARNOLDO ity o f [facility] 2022-05-20 2022-05-20 [facility] 1.2.707.885 [id number] Univers 17:31:41 17:48:00 [facility]counter [facility] HEALTH 350.1.13.10 ity of [place] 4.2.7.2.686 Branden as VIKTOR?BLEA [id number] [facility] [address] [place] [address] OFFICE [facility] 2022-05-20 2022-05-20 [facility] 1.2.840. 114 [id number] Univers 17:00:00 17:37:58 Care Eliecer Nicol HEALTH 350.1.13.10 ity of [place] 4.2.7.2.686 Branden as VIKTOR?BLEA [id number] [facility] [address] [facility] OFFICE [facility] 2022-05-20 2022-05-20 [facility] 1.2.840.114 [id number] Univers 00:00:00 00:00:00 Arnoldo HEALTH 350.1.13.10 i ty [facility] 4.2.7.2.686 Branden as VIKTOR?BLEA [id number] Ri clemente LIZ [address] [facility] 2022-05-20 2022-05-20 Telephone Rinku [facility] [id number] Univers 00:00:00 00:00:00 Marcial HEALTH [id number] it y [facility] [id number] Branden as VIKTOR?BLEA [phone] Ri clemente LIZ [address] [facility] 2022-05-18 2022-05-18 Outpatient R RINKU [facility] [id number] Univers 16:00:00 16:43:58 MARCIAL itleigh of [facility] 2022-05-18 2022-05-18 [facility] [id number] Univers 16:00:00 16:43:58 Visit [facility] [id number] it y of [place] [id number] Branden as VIKTOR?BLEA [phone] Ri clemente LANDON [address] [facility] OFFICE [facility] 2022-04-27 2022-04-27 Outpatient R JOSIE [facility] [id number] Univers 13:45:00 15:24:22 RADHA itleigh [facility] 2022-04-27 2022-04-27 Ancillary Paulina Velasquez [facility] 1.2.84 0.114 [id number] Univers 13:45:00 15:24:22 Visit Radha Galindo 350.1.13.10 ity of [facility] [place] [phone] Ri dical NAL 179 [facility] 2022-04-15 2022-04-15 Ancillary Nick Vasquez [facility] 1.2.840. 114 [id number] Univers 14:30:00 15:15:00 Visit Radha Galindo 350.1.13.10 ity of [facility] [place] [phone] Ri dical NAL 179 [facility] 2022-04-02 2022-04-02 Outpatient MARISELA [facility] [id number] [facility] 08:38:32 12:20:33 SHERICE cali of Medicin e 2022-03-31 2022-03-31 Ancillary Paulina Velasquez [facility] 1.2.84 0.114 [id number] Univers 10:15:00 11:00:00 Visit Radha Galindo 350.1.13.10 ity of [place] 4.[place].7.2.[place] [phone] Ri dical NAL 179 [facility] 2022-03-26 2022-03-26 Ancillary Kari Peres [facility] 1.2. 840.114 [id number] Univers 14:30:00 15:15:00 Visit Radha Galindo 350.1.13.10 ity of [place] 4.[place].2.[place] [phone] Ri dical NAL 179 [facility] 2022-03-24 2022-03-24 Ancillary Paulina Velasquez [facility] 1.2.84 0.114 [id number] Univers 14:30:00 15:15:00 Visit Radha Galindo 350.1.13.10 ity of [place] 4.[place].2.[place] [phone] Ri dical NAL 179 [facility] 2022-03-16 2022-03-16 Outpatient R JOSIE PRJUAN [facility] [id number] Univers 10:15:00 11:11:20 RADHA carroll of [facility] 2022-03-16 2022-03-16 Ancillary Paulina Velasquez [facility] 1.2.84 0.114 [id number] [facility] 10:15:00 11:11:20 Visit Radha Galindo 350.1.13.10 ity of [place] 4.[place].2.[place] [id number] Ri dical NAL 179 [facility] 2022-02-23 2022-02-23 Office Jesus [facility] 1.2.840.114 [id number] Univers 09:00:00 09:30:00 Visit [facility] 350.1.13.10 it y of [place] 4.2.7.2.686 Branden as VIKTOR?BLEA [phone] Ri clemente [address] OFFICE [facility] 2022-02-23 2022-02-23 Outpatient Kurtis LEE [facility] [id number] Univers 09:00:00 09:00:00 STERLING carroll [facility] 2022-02-20 2022-02-21 Emergency [facility] [id number] 19:32:00 01:26:00 [facility] 2022-02-20 2022-02-21 Emergency ER [facility] Emergency [id number] SLE 19:32:00 01:26:00 [facility] 2022-02-20 2022-02-21 [facility] [id number] 19:32:00 01:26:00 [facility] 2022-02-20 2022-02-20 Outpatient [facility], [facility] [id number] [facility] 14:47:50 14:47:50 SHERICE cali of Medicin e 2022-02-20 2022-02-20 Office [facility] 1.2.840.114 [id number] Univers 09:30:00 10:00:00 Visit Marcial [facility] 350.1.13.10 it y of [place] 4.2.7.2.686 Branden as VIKTOR?BLEA [phone] Ri carrie[address] OFFICE [facility] 2022-02-20 2022-02-20 Outpatient R RINKU [facility] [id number] Univers 09:30:00 09:30:00 MARCIAL carroll [facility] 2022-02-20 2022-02-20 Telephone Rinku [facility] 1.2.493.879 [id number] Univers 00:00:00 00:00:00 Marcial [facility] 350.1.13.10 it y of [place] 4.2.7.2.686 Branden as VIKTOR?BLEA [phone] Ri clemente [address] OFFICE [facility] 2022-02-20 2022-02-20 Travel [facility] [id number] [facility] 00:[facility]00 00:00:00 [facility] 2022-02-20 2022-02-20 Travel [facility] [id number] [facility] 00:[facility]00 00:00:00 [facility] 2022-02-19 2022-02-19 Telephone Team, [facility] PINKY BarbaraHeidi2.840.114 9 [id number] Univers 00:00:00 00:00:00 Health [place] 350.1.13.10 it y of [facility] 4.2.7.2.686 [place] [id number] [address] 2022-02-19 2022-02-19 Telephone Rinku [facility] 1.2.238.975 [id number] [facility] 00:00:00 00:00:00 Marcial HEALTH 350.1.13.10 it y of [place] 4.2.7.2.686 Branden as VIKTOR?BLEA [phone] [address] MEDICAL OFFICE BUILDING 2022-02-18 2022-02-18 Nurse PINKY Main 1.2.662.682 [id number] Univers 00:00:00 00:00:00 Triage Ludwin [place] 350.1.13.10 it y of [facility] 4.2.7.2.686 Branden as [id number] [address] 2022-02-18 2022-02-18 Nurse PINKY Main 1.2.742.056 [id number] Univers 00:00:00 00:00:00 Triage Ludwin [place] 350.1.13.10 it y of [facility] 4.2.7.2.686 Branden as [phone] [address] 2022-02-18 2022-02-18 Nurse PINKY Núñez 1.2.840.114 [id number] Univers 00:00:00 00:00:00 Triage Benjamin Mckeon [place] 350.1.13.10 ity of [address]686 Branden as [phone] [address] 2022-02-17 2022-02-17 Outpatient ALEJANDRA WOLFE [facility] [id number] [facility] 13:09:42 16:19:33 RANULFO Jean e 2022-02-17 2022-02-17 Telephone [facility] 1.2.675.916 [id number] Univers 00:00:00 00:00:00 Marcial HEALTH 350.1.13.10 it y of [place] 4.2.7.2.686 Branden as VIKTOR?BLEA [id number] [address] OFFICE [facility] 2022-02-16 2022-02-16 Outpatient [facility] [id number] Univers 09:30:00 09:30:00 [facility] 2022-02-16 2022-02-16 Outpatient Kurt[facility] [id number] Univers 09:30:00 09:30:00 [facility] 2022-02-16 2022-02-16 Outpatient Kurtis [facility] [id number] Univers 09:30:00 09:30:00 [facility] 2022-02-09 2022-02-09 Outpatient AIDEN [facility] [id number] [facility] 08:27:50 12:25:31 RANULFO cali of Medicin e 2022-02-06 2022-02-06 Outpatient Kurtis [facility] [id number] Univers 00:00:00 00:00:00 IDANIA leigh [facility] 2022-02-06 2022-02-06 Outpatient Kurtis [facility] [id number] Univers 00:00:00 00:00:00 IDANIA leigh [facility] 2022-02-05 2022-02-05 Telephone [facility] 12.230.210 [id number] Univers 00:00:00 00:00:00 Marcial HEALTH 350.1.13.10 it y of [place] 4.2.7.2.686 Branden as VIKTOR?BLEA [id number] [address] 2022-02-04 2022-02-04 Telephone [facility] 1.2.840.114 [id number] Univers 00:00:00 00:00:00 Idania Darudar HEALTH 350.1.13.10 i ty of [place]2.7.2.[place] [phone] [address] OFFICE BUILDING 2022-02-03 2022-02-03 Outpatient R SEFERINO [facility] [id number] Univers 00:00:00 00:00:00 IDANIA leigh [facility] 2022-02-03 2022-02-03 Outpatient [facility] [id number] Univers 00:00:00 00:00:00 IDANIA leigh [facility] 2022-01-30 2022-01-30 Telephone [facility] 1.2.840.114 [id number] Univers 00:00:00 00:00:00 Idania Marroquin HEALTH 350.1.13.10 i ty of [place] 4[place]2.[place].2.[place] [id number] [address] OFFICE BUILDING 2022-01-28 2022-01-28 Outpatient [facility] [id number] Univers 11:30:00 12:02:51 IDANIA leigh [facility] 2022-01-28 2022-01-28 Office [facility] 1.2.113.307 [id number] Univers 11:30:00 12:02:51 Visit Idania Marroquin HEALTH 350.1.13.10 i ty of [place] 4.2.[place].2.[place] [phone] [address] OFFICE BUILDING 2022-01-19 2022-01-19 Telephone Rinku [facility] 1.2.370.605 [id number] Univers 00:00:00 00:00:00 Marcial Mercora 350.1.13.10 it y of [place] 4.2.7.2.686 Branden as VIKTOR?BLEA [id number] [address] OFFICE BUILDING 2022-01-13 2022-01-13 Outpatient R RINKU [facility] [id number] Univers 13:30:00 14:14:35 MARCIAL carroll [facility] 2022-01-13 2022-01-13 Office [facility] 1.2.840.114 [id number] Univers 13:30:00 14:14:35 Visit Marcial HEALTH 350.1.13.10 it y of [place] 4.2.7.2.686 Branden as VIKTOR?BLEA [id number] [address] OFFICE [facility] 2021-12-29 2021-12-29 Emergency X [facility] ERT [id number] [facility] 14:55:00 16:47:00 FAUSTINO ity of [facility] 2021-12-29 2021-12-29 Emergency [facility] 1.2.840.114 [id number] [facility] 14:55:00 16:47:00 Faustino B [place] 350.1.13.10 i ty of [place] 4.2.7.2.686 [place] [phone] [address] 2021-12-29 2021-12-29 Telephone Mar [facility] 1.2.840.114 [id number] Univers 00:00:00 00:00:00 Wondiful A HEALTH 350.1.13.10 [facility] 4.2.7.2.686 Branden as VIKTOR?BLEA [id number] [address] OFFICE [facility] 2021-12-22 2021-12-22 Orders Doctor PINKY 1.2.840.114 [id number] Univers 00:00:00 00:00:00 Only Unassigned, [place] 350.1.13.10 ity of [place] 4.2.7.2.686 Branden as [id number] [address] 2021-12-10 2021-12-10 Orders Doctor PINKY 1.2.840.114 [id number] Univers 00:00:00 00:00:00 Only Unassigned, [place] 350.1.13.10 ity of [place] [facility] 4.2.7.2.686 Branden as [phone] [address] 2021-12-01 2021-12-01 Telephone Teto [facility] 1.2.840.114 [id number] Univers 00:00:00 00:00:00 Strahil T [place] 350.1.13.10 ity of [facility] 4.2.7.2.686 [place] [facility] [phone] [place] [id number] [facility] 2021-11-19 2021-11-19 Outpatient R ASHLEY IRENENMLinda [facility] [id number] Univers 14:40:00 14:40:00 PARMINDER IRENE itleigh [facility] 2021-11-13 2021-11-13 Charger 2, Adc Lab [facility] 1.2.840.114 [id number] Univers 11:30:00 11:30:00 Visit John Manzo 350.1.1 3.10 ity of [facility] 4.2.7.2.[place] [phone] Ri clemente ESTRADA [address] [facility] 2021-11-13 2021-11-13 Outpatient R HELEN [facility] [id number] Univers 11:30:00 10:14:46 JOHN Cali o f [facility] 2021-11-12 2021-11-12 Office [facility] 1.2.831.008 [id number] Univers 14:40:00 15:00:00 Visit Parminder ALMAZAN 350.1.13.10 ity of [place] 4.2.7.2.[place] [phone] Ri carrie[address] 2021-11-12 2021-11-12 Outpatient R ASHLEY IRENENMLinda [facility] [id number] Univers 14:40:00 14:40:00 [facility] 2021-11-06 2021-11-06 K[facility]ra [facility] 1.2.840.114 [id number] Univers 00:00:00 00:00:00 Management Wondiful A HEALTH 350.1.13.10 ity of [place] 4.2.7.2.686 Branden as VIKTOR?BLEA [id number] [facility] [address] OFFICE BUILDING 2021-11-05 2021-11-05 Outpatient R MAR [facility] [id number] Univers 17:03:51 23:59:00 WONDIFUL ity o f [facility] 2021-11-05 2021-11-05 [facility] 1.2.772.555 [id number] Univers 17:03:51 23:59:00 Encounter Wondiful A [place] 350.1.13.10 ity of [place] 4.2.7.2.686 [facility] [phone] [facility] [address] 2021-11-05 2021-11-05 Kedar Manuel [facility] 1.2.840.114 [id number] Univers 00:00:00 00:00:00 Management Wondiful A HEALTH 350.1.13.10 ity of [place] 4.2.7.2.686 Branden as VIKTOR?BLEA [phone] [address] MEDICAL OFFICE [facility] 2021-11-04 2021-11-04 Charger Atnhony Borja Sleep Lab [facility] 1.2 .840.114 [id number] Univers 10:00:00 10:15:00 Visit Parminder Irene [place] 350.1.13. 10 ity of [facility] 4.2.7.2.686 [facility] [phone] [facility] [address] 2021-11-04 2021-11-04 Outpatient R TETO, STRAHIL [facility] [id number] Univers 10:00:00 10:00:00 CHELSI IRENEL ity [facility] 2021-11-04 2021-11-04 Outpatient R TETO, STRAHIL [facility] [id number] Univers 10:00:00 10:00:00 CHELSI IRENEL ity [facility] 2021-10-29 2021-10-29 Case Mar [facility] 1.2.840.114 [id number] Univers 00:00:00 00:00:00 Management Wondiful A HEALTH 350.1.13.10 ity of [place] 4.2.7.2.686 Branden as VIKTOR?BLEA [phone] [address] MEDICAL OFFICE [facility] 2021-10-23 2021-10-23 Melva Mar [facility] 1.2.840.114 [id number] Univers 00:00:00 00:00:00 Wondiful A HEALTH 350.1.13.10 ity of [place] 4.2.7.2.686 Branden as VIKTOR?BLEA [phone] Ri clemente LIZ 044 [facility] OFFICE [facility] 2021-10-23 2021-10-23 Patient Doctor [facility] 1.2.840.114 [id number] Univers 00:00:00 00:00:00 Secure Msg Unassigned, HEALTH 350.1.13.10 ity of [place] 4.2.7.2.686 Branden as VIKTOR?BLEA [phone] Ri clemente LIZ [address] [place] [address] MEDICAL OFFICE [facility] 2021-10-22 2021-10-22 Telephone [facility] 1.2.840.114 [id number] Univers 00:00:00 00:00:00 Wondiful A HEALTH 350.1.13.10 ity of [place] 4.2.7.2.686 Branden as VIKTOR?BLEA [phone] [address] OFFICE [facility] 2021-10-21 2021-10-21 Charger Lab, Ang - [facility] 1.2.840.1 14 [id number] Univers 12:45:00 13:00:00 Visit Merrill, Louis A HEALTH 350.1.13.1 0 ity of [place] 4.2.7.2.686 Branden as VIKTOR?BLEA [phone] Ri clemente LIZ 353 [facility] OFFICE [facility] 2021-10-21 2021-10-21 Outpatient R MAR [facility] [id number] Univers 11:30:00 12:41:54 WONDIFUL ity o f [facility] 2021-10-21 2021-10-21 Office [facility] 1.2.840.114 [id number] Univers 11:30:00 12:41:54 Visit Wondiful A HEALTH 350.1.13.10 ity of [place] 4.2.7.2.686 Branden as VIKTOR?BLEA [phone] Ri clemente LIZ [address] [place] [address] OFFICE [facility] 2021-10-21 2021-10-21 Outpatient R MAR [facility] [id number] Univers 11:30:00 12:41:54 WONDIFUL ity o f [facility] 2021-10-21 2021-10-21 Orders Doctor PINKY 1.2.840.114 [id number] Univers 00:00:00 00:00:00 Only UnassignedHUDSON 350.1.13.10 ity [facility] 4.2.7.2.686 Branden as [phone] [address] 2021-10-08 2021-10-08 Outpatient Kurtis [facility] [id number] Univers 09:00:00 09:00:00 WONDIFUL ity o f [facility] 2021-09-23 2021-09-23 Emergency X [facility] ERT [id number] Univers 15:27:00 18:23:00 KELLY carroll [facility] 2021-09-23 2021-09-23 Emergency [place] 1.2.261.094 [id number] Univers 15:27:00 18:23:00 Kelly ALMAZAN 350.1.13.10 ity of [place] 4.2.7.2.686 [place] [facility] [phone] [address] 2021-09-23 2021-09-23 Orders Doctor PINKY 1.2.840.114 [id number] Univers 00:00:00 00:00:00 Only Unassigned, [place] 350.1.13.10 ity of [facility] 4.2.7.2.686 Branden as [phone] [address] 2021-08-19 2021-08-19 Outpatient Kurtis MANUEL [facility] [id number] Univers 13:30:00 13:30:00 WONDIFUL ity o f [facility] 2021-06-11 2021-06-11 Laboratory Only, Ang Db Test [facility] 1.2.8 40.114 [id number] Univers 11:33:26 11:43:26 Only Nicol Gonzáles 350.1.13.10 ity of [place] 4.2.7.2.686 Branden as Viktor?Blea [phone] [address] Medical Office Building 2021-06-11 2021-06-11 Outpatient Kurtis GONZÁLES [facility] [id number] Univers 11:15:00 11:15:00 NICOL carroll [facility] 2021-01-15 2021-01-15 Outpatient R ANISHA, [facility] [id number] Univers 15:00:00 15:00:00 FRANCES ity [facility] 2020-12-18 2020-12-18 Outpatient [facility] [id number] Univers 15:00:00 15:00:00 ity of [facility] 2020-10-01 2020-10-01 Emergency Zachary Mcnamara [facility] 1.2.840.114 [id number] Univers 15:38:00 17:19:00 Pamela Almazan 350.1.13.10 i ty of [place] 4.2.7.2.686 [facility] [id number] [address] 2020-10-01 2020-10-01 Emergency Zachary Mcnamara [facility] 1.2.840.114 [id number] 15:38:00 17:19:00 Pamela Almazan 350.1.13.10 [place] 4.2.7.2.686 [place] [id number] [facility] 2020-10-01 2020-10-01 Orders Doctor PINKY 1.2.840.114 [id number] Univers 00:00:00 00:00:00 Only Unassigned, [place] 350.1.13.10 ity of [place] [facility] 4.2.7.2.686 Branden [phone] [address] 2020-10-01 2020-10-01 Orders Doctor PINKY 1.2.840.114 [id number] 00:00:00 00:00:00 Only Unassigned, [place] 350.1.13.10 [place] [facility] 4.2.7.2.686 [id number] 009 2020-04-23 2020-07-03 Laboratory Only, Web Test [facility] 1.2.840. 114 [id number] Univers 09:22:46 08:51:45 Only Unknown, Attending Health 350.1.13.10 ity of [place] 4.[place].7.2.[place] [facility] - [phone] [address] 2020-04-23 2020-07-03 Laboratory Only, Web [facility] 1.2.840.114 [id number] 09:22:46 08:51:45 Only Test Health 350.1.13.10 Specialty 4.2.7.2.686 Care - [phone] [address] 2020-04-23 2020-04-23 Outpatient R [facility] [id number] Univers 09:30:00 09:30:00 ity [facility] 2020-03-05 2020-03-05 Telephone Aris [facility] 1.2.840.114 [id number] Univers 00:00:00 00:00:00 Rania Health 350.1.13.10 it y of [place] 4.2.7.2.686 Branden as Professio [phone] Ri dical nal [address] 2020-03-05 2020-03-05 Telephone Julia Laws 1.2.840.114 [id number] Univers 00:00:00 00:00:00 [place] 350.1.13.10 it y of [facility] 4.2.7.2.686 Branden as [phone] [address] 2020-03-04 2020-03-04 Urgent Pob1, Acute Care Clinic [facility] 1. 2.840.114 [id number] Univers 15:43:04 16:06:56 Care Keven [facility] 350.1.13.10 ity of [place] 4.2.7.2.686 Branden as Professio [phone] Ri dical nal [address] 2020-03-04 2020-03-04 Outpatient R [facility] [id number] Univers 15:40:00 15:40:00 ity [facility] 2020-02-08 2020-02-08 Outpatient [facility] [id number] 2-2 [facility] 00:00:00 00:00:00 [id number] 2019-10-28 2019-10-29 Outpt Diag nullFlavo [facility] [id number] 32238 Memoria 22:20:00 05:59:00 Services r Outpatient 00 l [facility] Results Test Description Test Time Test Comments Results Result Comments Source CHEM PANEL 2022-07-17 08:15:00 Test Item Value Reference Range Interpretation Comme nts Potassium Lvl (test code = Potassium Lvl) 4.0 3.5-5.1 [place] 023172-10-07 08:15:00 Test Item Value Reference Range Interpretation Comments Chloride Lvl (test code = Chloride Lvl) 103 95-109 [place] 023172-10-07 08:15:00 Test Item Value Reference Range Interpretation Comments CO2 (test code = CO2) 27 24-32 [place] [address]-10-07 08:15:00 Test Item Value Reference Range Interpretation Comments Calcium Lvl (test code = Calcium Lvl) 8.4 8.5-10.5 [place] 023172-10-07 08:15:00 Test Item Value Reference Range Interpretation Comments AGAP (test code = AGAP) 11.0 10.0-20.0 [place] 023172-10-07 08:15:00 Test Item Value Reference Range Interpretation Comments eGFR (test code = eGFR) 100 [place] 388862-10-07 08:15:00 Test Item Value Reference Range Interpretation Comments Segs (test code = Segs) 71.0 45.0-75.0 [place] [address]-10-07 08:15:00 Test Item Value Reference Range Interpretation Comments Lymphocytes (test code = Lymphocytes) 13.8 20.0-40.0 [place] [address]-10-07 08:15:00 Test Item Value Reference Range Interpretation Comments Monocytes (test code = Monocytes) 13.2 2.0-12.0 [place] [address]-10-07 08:15:00 Test Item Value Reference Range Interpretation Comments Eosinophils (test code = 1.3 See_Comment [A utomated message] The Eosinophils) system which ge nerated this result tra nsmitted reference range : <=4.0. The reference r ariadna was not used to int erpret this result as normal/abnormal . [place] [address]-10-07 08:15:00 Test Item Value Reference Range Interpretation Comments Basophils (test code = 0.7 See_Comment [Aut omated message] The Basophils) system which ge nerated this result tra nsmitted reference range : <=1.0. The reference r ariadna was not used to int erpret this result as normal/abnormal . [place] [address]-10-07 08:15:00 Test Item Value Reference Range Interpretation Comments Neutrophils # (test code = Neutrophils 6.6 1.5-8.1 #) [place] [address]-10-07 08:15:00 Test Item Value Reference Range Interpretation Comments Lymphocytes # (test code = Lymphocytes 1.3 1.0-5.5 #) [place] [address]-10-07 08:15:00 Test Item Value Reference Range Interpretation Comments Monocytes # (test code 1.2 See_Comment [Aut omated message] The = Monocytes #) system which generated this result tra nsmitted reference range : <=0.8. The reference r ariadna was not used to int erpret this result as normal/abnormal . [place] [address]-10-07 08:15:00 Test Item Value Reference Range Interpretation Comments Eosinophils # (test code 0.1 See_Comment [A utomated message] The = Eosinophils #) system whic h generated this result tra nsmitted reference range : <=0.5. The reference r ariadna was not used to int erpret this result as normal/abnormal . [place] [address]-10-07 08:15:00 Test Item Value Reference Range Interpretation Comments Basophils # (test code 0.1 See_Comment [Aut omated message] The = Basophils #) system which generated this result tra nsmitted reference range : <=0.2. The reference r ariadna was not used to int erpret this result as normal/abnormal . [place] [address]-10-07 08:15:00 Test Item Value Reference Range Interpretation Comments WBC (test code = WBC) 9.3 3.7-10.4 [place] [address]-10-07 08:15:00 Test Item Value Reference Range Interpretation Comments RBC (test code = RBC) 3.17 4.20-5.40 [place] [address]-10-07 08:15:00 Test Item Value Reference Range Interpretation Comments Hgb (test code = Hgb) 9.3 12.0-16.0 [place] [address]-10-07 08:15:00 Test Item Value Reference Range Interpretation Comments Hct (test code = Hct) 28.3 36.0-48.0 [place] [address]-10-07 08:15:00 Test Item Value Reference Range Interpretation Comments MCV (test code = MCV) 89.2 80.0-98.0 [place] 388862-10-07 08:15:00 Test Item Value Reference Range Interpretation Comments MCH (test code = MCH) 29.3 pg 27.0-31.0 [id number]:15:00 Test Item Value Reference Range Interpretation Comments MCHC (test code = MCHC) 32.9 32.0-36.0 [id number] 08:15:00 Test Item Value Reference Range Interpretation Comments RDW (test code = RDW) 14.4 11.5-14.5 [id number] 08:15:00 Test Item Value Reference Range Interpretation Comments Platelet (test code = Platelet) 343 133-450 [facility]OuxsanvDVASZCYBYI1215-37-92 08:15:00 Test Item Value Reference Range Interpretation Comments MPV (test code = MPV) 6.4 7.4-10.[address] [facility] [id number] 08:15:00 Test Item Value Reference Range Interpretation Comments Glucose Lvl (test code = Glucose Lvl) 107 70-99 [facility] [id number] 08:15:00 Test Item Value Reference Range Interpretation Comments BUN (test code = BUN) 5 7-22 [facility] [id number] 08:15:00 Test Item Value Reference Range Interpretation Comments Creatinine Lvl (test code = Creatinine 0.68 0.50-1.40 Lvl) [facility] [id number] 08:15:00 Test Item Value Reference Range Interpretation Comments Sodium Lvl (test code = Sodium Lvl) 137 135-145 [facility] [id number] 15:24:00 Test Item Value Reference Range Interpretation Comments HS Troponin I 1 Hr (test code = HS 4 Troponin I 1 Hr) [facility] [id number] 15:24:00 Test Item Value Reference Range Interpretation Comments HS Troponin I 0 to 1 Hour Delta (test -1 code = HS Troponin I 0 to 1 Hour Delta) [facility] [id number] 14:22:00 Test Item Value Reference Range Interpretation Comments HS Troponin I Baseline (test code = HS 5 Troponin I Baseline) [facility] [id number] 07:28:00 Test Item Value Reference Range Interpretation Comments Glucose Lvl (test code = Glucose Lvl) 103 70-99 [place] 023172-10-06 07:28:00 Test Item Value Reference Range Interpretation Comments BUN (test code = BUN) 9 7-22 [place] 023172-10-06 07:28:00 Test Item Value Reference Range Interpretation Comments Creatinine Lvl (test code = Creatinine 0.65 0.50-1.40 Lvl) [place] 023172-10-06 07:28:00 Test Item Value Reference Range Interpretation Comments Sodium Lvl (test code = Sodium Lvl) 133 135-145 [place] 023172-10-06 07:28:00 Test Item Value Reference Range Interpretation Comments Potassium Lvl (test code = Potassium 3.8 3.5-5.1 Lvl) [place] 023172-10-06 07:28:00 Test Item Value Reference Range Interpretation Comments Chloride Lvl (test code = Chloride Lvl) 102 95-109 [place] 023172-10-06 07:28:00 Test Item Value Reference Range Interpretation Comments CO2 (test code = CO2) 24 24-32 [place] 023172-10-06 07:28:00 Test Item Value Reference Range Interpretation Comments Calcium Lvl (test code = Calcium Lvl) 8.3 8.5-10.5 [place] 023172-10-06 07:28:00 Test Item Value Reference Range Interpretation Comments AGAP (test code = AGAP) 10.8 10.0-20.0 [place] 023172-10-06 07:28:00 Test Item Value Reference Range Interpretation Comments eGFR (test code = eGFR) 101 [place] 388862-10-06 07:28:00 Test Item Value Reference Range Interpretation Comments WBC (test code = WBC) 9.2 3.7-10.4 [place] 388862-10-06 07:28:00 Test Item Value Reference Range Interpretation Comments RBC (test code = RBC) 3.25 4.20-5.40 [place] 388862-10-06 07:28:00 Test Item Value Reference Range Interpretation Comments Hgb (test code = Hgb) 9.5 12.0-16.[address]10-06 07:28:00 Test Item Value Reference Range Interpretation Comments Hct (test code = Hct) 28.9 36.0-48.0 [place] 388862-10-06 07:28:00 Test Item Value Reference Range Interpretation Comments MCV (test code = MCV) 89.1 80.0-98.0 [place] [address]-10-06 07:28:00 Test Item Value Reference Range Interpretation Comments MCH (test code = MCH) 29.3 pg 27.0-31.0 [place] 388862-10-06 07:28:00 Test Item Value Reference Range Interpretation Comments MCHC (test code = MCHC) 32.8 32.0-36.0 [place] 388862-10-06 07:28:00 Test Item Value Reference Range Interpretation Comments RDW (test code = RDW) 14.4 11.5-14.5 [place] [address]-10-06 07:28:00 Test Item Value Reference Range Interpretation Comments Platelet (test code = Platelet) 319 133-450 [facility] CenterUwhwpilWYTJNOQMBB0445-20-73 07:28:00 Test Item Value Reference Range Interpretation Comments MPV (test code = MPV) 6.8 7.4-10.4 [place] [address]-10-06 07:28:00 Test Item Value Reference Range Interpretation Comments Neutrophils # (test code = Neutrophils 6.3 1.5-8.1 #) [place] 388862-10-06 07:28:00 Test Item Value Reference Range Interpretation Comments Lymphocytes # (test code = Lymphocytes 1.0 1.0-5.5 #) [place] [address]-10-06 07:28:00 Test Item Value Reference Range Interpretation Comments Monocytes # (test code 1.9 See_Comment [Aut omated message] The = Monocytes #) system which generated this result tra nsmitted reference range : <=0.8. The reference r ariadna was not used to int erpret this result as normal/abnormal . [place] [address]-10-06 07:28:00 Test Item Value Reference Range Interpretation Comments Segs (test code = Segs) 67.0 45.0-75.0 [place] 388862-10-06 07:28:00 Test Item Value Reference Range Interpretation Comments Bands (test code = 1.0 See_Comment [Automat ed message] The Bands) system which ge nerated this result transmit rhea reference range : <=11.0. The reference r ariadna was not used to interpr et this result as jeannie l/abnormal. [place] [address]-10-06 07:28:00 Test Item Value Reference Range Interpretation Comments Lymphocytes (test code = Lymphocytes) 11.0 20.0-40.0 [place] 388862-10-06 07:28:00 Test Item Value Reference Range Interpretation Comments Monocytes (test code = Monocytes) 21.0 2.0-12.0 [place] [address]-10-06 07:28:00 Test Item Value Reference Range Interpretation Comments Atypical Lymphs (test code = Atypical 0.0 Lymphs) [place] [address]-10-06 07:28:00 Test Item Value Reference Range Interpretation Comments RBC Morph (test code = Normal (07/16/22 2:28 RBC Morph) AM) [place] [address]-10-06 07:28:00 Test Item Value Reference Range Interpretation Comments Plt Morph (test code = Clumped (07/16/22 2:28 Plt Morph) AM) [facility]2022-10-05 05:21:00 Test Item Value Reference Range Interpretation Comments Glucose Lvl (test code = Glucose Lvl) 118 70-99 [facility]2022-10-05 05:21:00 Test Item Value Reference Range Interpretation Comments BUN (test code = BUN) 15 7-22 [place] 023172-10-05 05:21:00 Test Item Value Reference Range Interpretation Comments Creatinine Lvl (test code = Creatinine 0.88 0.50-1.40 Lvl) [facility]2022-10-05 05:21:00 Test Item Value Reference Range Interpretation Comments Sodium Lvl (test code = Sodium Lvl) 130 135-145 [facility]2022-10-05 05:21:00 Test Item Value Reference Range Interpretation Comments Potassium Lvl (test code = Potassium 3.9 3.5-5.1 Lvl) [facility]2022-10-05 05:21:00 Test Item Value Reference Range Interpretation Comments Chloride Lvl (test code = Chloride Lvl) 100 95-109 [facility]2022-10-05 05:21:00 Test Item Value Reference Range Interpretation Comments CO2 (test code = CO2) 22 24-32 [facility]2022-10-05 05:21:00 Test Item Value Reference Range Interpretation Comments Calcium Lvl (test code = Calcium Lvl) 8.4 8.5-10.5 [facility]2022-10-05 05:21:00 Test Item Value Reference Range Interpretation Comments AGAP (test code = AGAP) 11.9 10.0-20.0 [facility]2022-10-05 05:21:00 Test Item Value Reference Range Interpretation Comments eGFR (test code = eGFR) 76 [facility] CenterClnmlprQHLRRPEQYU6352-36-95 05:21:00 Test Item Value Reference Range Interpretation Comments WBC (test code = WBC) 10.8 3.7-10.4 [facility] CenterOmtbcsjTLYRFFGFQR1787-15-06 05:21:00 Test Item Value Reference Range Interpretation Comments RBC (test code = RBC) 3.50 4.20-5.40 [facility] CenterClvevheOBNWWOTWPG0527-94-68 05:21:00 Test Item Value Reference Range Interpretation Comments Hgb (test code = Hgb) 10.4 12.0-16.0 [facility] CenterGptbbxyJBYEECWREX0206-12-01 05:21:00 Test Item Value Reference Range Interpretation Comments Hct (test code = Hct) 30.7 36.0-48.0 [facility] CenterJtxqdtgCQQLVMAHHB6579-80-32 05:21:00 Test Item Value Reference Range Interpretation Comments MCV (test code = MCV) 87.7 80.0-98.0 [facility] CenterFrcwmbkBINHYGGYCP5937-99-02 05:21:00 Test Item Value Reference Range Interpretation Comments MCH (test code = MCH) 29.7 pg 27.0-31.0 [place] 388862-10-05 05:21:00 Test Item Value Reference Range Interpretation Comments MCHC (test code = MCHC) 33.9 32.0-36.0 [place] 388862-10-05 05:21:00 Test Item Value Reference Range Interpretation Comments RDW (test code = RDW) 14.6 11.5-14.5 [facility] CenterGthunvgEKOHSENXOY5557-24-95 05:21:00 Test Item Value Reference Range Interpretation Comments Platelet (test code = Platelet) 360 133-450 [facility] CenterErislvsIWLDWYUWDG5077-15-58 05:21:00 Test Item Value Reference Range Interpretation Comments MPV (test code = MPV) 6.7 7.4-10.4 [facility] CenterVjmcunfOSFZLCONBM2630-25-87 05:21:00 Test Item Value Reference Range Interpretation Comments Segs (test code = Segs) 77.3 45.0-75.0 [facility] CenterZonklyqGKBUYCMYTO5445-56-82 05:21:00 Test Item Value Reference Range Interpretation Comments Lymphocytes (test code = Lymphocytes) 10.0 20.0-40.0 [facility] CenterYnxhurlFXVOYXYAGD1336-73-20 05:21:00 Test Item Value Reference Range Interpretation Comments Monocytes (test code = Monocytes) 12.5 2.0-12.0 [facility] CenterUdwslgiFVGHBRTWKZ6515-67-55 05:21:00 Test Item Value Reference Range Interpretation Comments Eosinophils (test code = 0.1 See_Comment [A utomated message] The Eosinophils) system which ge nerated this result tra nsmitted reference range : <=4.0. The reference r ariadna was not used to int erpret this result as normal/abnormal . [facility] CenterIszosrkERLKQQGLLB1688-56-14 05:21:00 Test Item Value Reference Range Interpretation Comments Basophils (test code = 0.1 See_Comment [Aut omated message] The Basophils) system which ge nerated this result tra nsmitted reference range : <=1.0. The reference r ariadna was not used to int erpret this result as normal/abnormal . [facility] CenterJnvvfwlFKYQZCFORM5031-19-79 05:21:00 Test Item Value Reference Range Interpretation Comments Neutrophils # (test code = Neutrophils 8.4 1.5-8.1 #) [facility] CenterUyoxgpuTGPUJXDEJR5998-65-94 05:21:00 Test Item Value Reference Range Interpretation Comments Lymphocytes # (test code = Lymphocytes 1.1 1.0-5.5 #) [facility] CenterRmxlhdyUXDZKWQHFX3185-82-93 05:21:00 Test Item Value Reference Range Interpretation Comments Monocytes # (test code 1.4 See_Comment [Aut omated message] The = Monocytes #) system which generated this result tra nsmitted reference range : <=0.8. The reference r ariadna was not used to int erpret this result as normal/abnormal . [facility] CenterFszmitxULZBSRQQQV7269-54-70 12:21:00 Test Item Value Reference Range Interpretation Comments Coronavirus (COVID-19) Not Detected (07/13/22 CATALINA (test code = 7:21 AM) Coronavirus (COVID-19) CATALINA) [facility] CenterBACTERIAL - [id number] 13:49:00 Test Item Value Reference Range Interpretation Comments MRSA by PCR (test Negative (07/02/22 8:49 code = MRSA by PCR) AM) [facility]MmsqdgeLXQLSWKIAQ7449-87-20 13:49:00 Test Item Value Reference Range Interpretation Comments PT (test code = PT) 13.0 s 12.0-14.7 [facility] CenterEqnhkorKOWLDBRJFB6884-91-02 13:49:00 Test Item Value Reference Range Interpretation Comments INR (test code = INR) 0.99 1 0.85-1.17 [facility] CenterVcbcvwcQTAXNPCCHQ1671-21-29 13:49:00 Test Item Value Reference Range Interpretation Comments PTT (test code = PTT) 35.7 s 22.9-35.8 [facility] CenterWpdryozKDQNOGGJNM1384-38-06 13:49:00 Test Item Value Reference Range Interpretation Comments Eosinophils (test code = 3.6 See_Comment [A utomated message] The Eosinophils) system which ge nerated this result tra nsmitted reference range : <=4.0. The reference r ariadna was not used to int erpret this result as normal/abnormal . [facility] CenterTdrifshSVAMLHWQWT9587-65-31 13:49:00 Test Item Value Reference Range Interpretation Comments Basophils (test code = 0.6 See_Comment [Aut omated message] The Basophils) system which ge nerated this result tra nsmitted reference range : <=1.0. The reference r ariadna was not used to int erpret this result as normal/abnormal . [facility] CenterKkinnnzTIKTNGFBLE8985-54-11 13:49:00 Test Item Value Reference Range Interpretation Comments Eosinophils # (test code 0.2 See_Comment [A utomated message] The = Eosinophils #) system whic h generated this result tra nsmitted reference range : <=0.5. The reference r ariadna was not used to int erpret this result as normal/abnormal . [facility] [id number] 13:49:00 Test Item Value Reference Range Interpretation Comments Hgb A1C (test code = Hgb A1C) 6.3 [facility] AND [id number] 13:49:00 Test Item Value Reference Range Interpretation Comments UA Color (test code = Yellow *NA*(07/02/22 UA Color) 8:49 AM) [facility] AND [id number] 13:49:00 Test Item Value Reference Range Interpretation Comments UA Turbidity (test code = Clear (07/02/22 8:49 UA Turbidity) AM) [facility] AND [id number] 13:49:00 Test Item Value Reference Range Interpretation Comments UA Spec Grav (test code = UA Spec 1.010 1 Grav) [facility] AND [id number] 13:49:00 Test Item Value Reference Range Interpretation Comments UA pH (test code = UA pH) 6.0 1 5.0-8.0 [facility] AND [id number] 13:49:00 Test Item Value Reference Range Interpretation Comments UA Protein (test code = UA Negative mg/dL Protein) [facility] AND [id number] 13:49:00 Test Item Value Reference Range Interpretation Comments UA Glucose (test code = UA Negative mg/dL Glucose) [facility] AND [id number] 13:49:00 Test Item Value Reference Range Interpretation Comments UA Ketones (test code = UA Negative mg/dL Ketones) [facility] AND [id number] 13:49:00 Test Item Value Reference Range Interpretation Comments UA Bili (test code = Negative *NA*(07/02/22 UA Bili) 8:49 AM) [facility] AND [id number] 13:49:00 Test Item Value Reference Range Interpretation Comments UA Blood (test code = Negative (07/02/22 8:49 UA Blood) AM) [facility] AND [id number] 13:49:00 Test Item Value Reference Range Interpretation Comments UA Urobilinogen (test code = UA 0.2 0.1-1.0 Urobilinogen) [facility] AND [id number] 13:49:00 Test Item Value Reference Range Interpretation Comments UA Nitrite (test code Negative (07/02/22 8:49 = UA Nitrite) AM) [facility] [id number] 13:49:00 Test Item Value Reference Range Interpretation Comments UA Leuk Est (test Negative (07/02/22 8:49 code = UA Leuk Est) AM) [facility] [id number] 13:49:00 Test Item Value Reference Range Interpretation Comments UA Sq Epi (test code = UA Sq Occasional /LPF Epi) [facility] [id number] 13:49:00 Test Item Value Reference Range Interpretation Comments UA WBC (test code = 4 See_Comment [Automa rhea message] The UA WBC) system which ge nerated this result transmit rhea reference range : <=5. The reference range was not used to interpr et this result as jeannie l/abnormal. [facility] [id number] 13:49:00 Test Item Value Reference Range Interpretation Comments UA RBC (test code = no gt See_Comment [Automa rhea message] The UA RBC) system which ge nerated this result transmit rhea reference range : <=2. The reference range was not used to interpr et this result as jeannie l/abnormal. [facility] WillieannCulture: [id number] 13:49:00 Test Item Value Reference Range Interpretation Comments Culture: Urine (test <10,000 CFU/mL Skin code = Culture: Urine) [facility], SPINE, LUMBAR, WITHOUT [id number] 22:22:00Unlisted Reason for Exam - Click Yes and Enter Reason Below->No [facility] 1965 Sex: FFINAL REPORT EXAM: MR, SPINE, LUMBAR, WITHOUT CONTRAST INDICATION: Back pain or radiculopathy, prior surgery, new symptoms TECHNIQUE: Sagittal T1-, T2-, and T2-w fat-saturated, and axial T1- and T2-w images of the lumbar spine. COMPARISON: None. FINDINGS:Spine Numbering: For purposes of this dictation, it is assumed that there are 5 yqr-itj-qdxkzco, lumbar-type vertebrae, and the most caudal fully [...] L1-L2 with annular fissure. Signed: Brian Blackwood [facility] Verified Date/Time: 02/20/2022 22:22:11 [place], [id number] 14:13:00Reason for Exam:->HX OF PARTIAL HYPROIDECTOYFINAL REPORT [...] MDReport Verified Date/Time: 02/08/2020 14:13:43 Reading Location: [facility] Diagnostic Imaging Reading Room - [place] [address] BLOOD [id number] 00:00:00 Test Item Value Reference Range Interpretation Comments CULTURE (BEAKER) (test No growth in 5 days code = 1095) BLOOD [id number] 00:00:00 Test Item Value Reference Range Interpretation Comments CULTURE (BEAKER) (test No growth in 5 days code = 1095) BASIC METABOLIC [id number] 11:06:00 Test Item Value Reference Range Interpretation [...] TO CALCULA TE ESTIMATED GFR. BASIC METABOLIC [id number] 07:36:00 Test Item Value Reference Range Interpretation [...] TO CALCULA TE ESTIMATED GFR. BASIC METABOLIC [id number] 19:50:00 Test Item Value Reference Range Interpretation [...] TO CALCULA TE ESTIMATED GFR. BASIC METABOLIC [id number] 08:59:00 Test Item Value Reference Range Interpretation [...] TO CALCULA TE ESTIMATED GFR. BASIC METABOLIC [id number] 01:18:00 Test Item Value Reference Range Interpretation [...] TO CALCULA TE ESTIMATED GFR. BASIC METABOLIC [id number] 16:32:00 Test Item Value Reference Range Interpretation [...] TO CALCULA TE ESTIMATED GFR. U/S, ABDOMINAL, [id number] 14:54:00Abdomen limited area? Add comment if clarification [...] Peters Verified Date/Time: 04/05/2018 14:54:01 Reading Location: [address] Ultrasound Reading Room HEPATIC FUNCTION [id number] 14:03:00 Test Item Value Reference Range Interpretation [...] = 21 U/L 6-55 347) BASIC METABOLIC [id number] 09:16:00 Test Item Value Reference Range Interpretation [...] ESTIMATED GFR. CBC W/PLT COUNT & AUTO [id number] 08:44:00 Test Item Value Reference Range Interpretation [...] (BEAKER) (test code = 2801) BASIC METABOLIC [id number] 01:06:00 Test Item Value Reference Range Interpretation [...] m DATA TO CALCULA TE ESTIMATED GFR. [id number] 18:02:00 Test Item Value Reference Range Interpretation Comments AMMONIA (BEAKER) (test code = 348) 35 mol/L 18-72 BASIC METABOLIC [id number] 17:31:00 Test Item Value Reference Range Interpretation [...] TO CALCULA TE ESTIMATED GFR. BASIC METABOLIC [id number] 09:29:00 Test Item Value Reference Range Interpretation [...] TO CALCULA TE ESTIMATED GFR. BLOOD GAS, [id number] 05:19:00 Test Item Value Reference Range Interpretation [...] C (test code = 1818) BASIC METABOLIC [id number] 03:52:00 Test Item Value Reference Range Interpretation [...] m DATA TO CALCULA TE ESTIMATED GFR. [id number] 03:48:00 Test Item Value Reference Range Interpretation Comments PHOSPHORUS (BEAKER) (test code = 3.6 mg/dL 2.3-4.7 604) [id number] 03:48:00 Test Item Value Reference Range Interpretation Comments MAGNESIUM (BEAKER) (test code = 2.1 mg/dL 1.6-2.6 627) LACTIC ACID, VENOUS, WHOLE [id number] 03:44:00 Test Item Value Reference Range Interpretation [...] WBC 0-0 (BEAKER) (test code = 413) [id number] 02:06:00 Test Item Value Reference Range Interpretation Comments CORTISOL, TOTAL (BEAKER) (test 17.8 ug/dL 3.7-19.4 code = 2755) TSH/FREE T4 IF [id number] 02:06:00 Test Item Value Reference Range Interpretation Comments THYROID STIMULATING HORMONE 1.09 uIU/mL 0.35-4.94 (BEAKER) (test code = 772) HIV-1 ANTIGEN WITH HIV-1/2 [id number] 00:06:00 Test Item Value Reference Range Interpretation Comments HIV-1 ANTIGEN WITH HIV 1\\T\\2 Nonreactive Nonreactive ANTIBODY (2) (BEAKER) (test code = 2586) BASIC METABOLIC [id number] 23:30:00 Test Item Value Reference Range Interpretation [...] ESTIMATED GFR. RAD, CHEST, 1 VIEW, NON [id number] 21:34:00Reason for exam:->ALTERED MENTAL STATUSReason for exam:->NEUROLOGIC [...] Verified Date/Time: 04/03/2018 21:34:48 Reading Location: [address] Reading Room OSMOLALITY, [id number] 21:10:00 Test Item Value Reference Range Interpretation Comments OSMOLALITY, SERUM (BEAKER) (test 236 mOsm/kg 275-295 L code = 615) RAPID DRUG SCREEN, [id number] 20:47:00 Test Item Value Reference Range Interpretation [...] situations. Chain of custody not maintained. Some uqcm-zep-qvmfxba medications, as well as adulterants, may cause inaccurate results. Clinical correlation should be applied. A more comprehensive drug screen or confirmation of a detected drug may be performed upon request. [id number] 20:43:00 Test Item Value Reference Range Interpretation Comments PHOSPHORUS (BEAKER) (test code = 1.8 mg/dL 2.3-4.7 L 604) HEPATIC FUNCTION [id number] 20:43:00 Test Item Value Reference Range Interpretation [...] (test code = 22 U/L 6-55 347) [id number] 20:43:00 Test Item Value Reference Range Interpretation Comments LIPASE (BEAKER) (test code = 749) 21 U/L 8-78 CREATININE, RANDOM [id number] 20:40:00 Test Item Value Reference Range Interpretation Comments CREATININE URINE (BEAKER) (test 11.7 mg/dL code = 375) Reference Range: No NormalsSODIUM, RANDOM [id number] 20:40:00 Test Item Value Reference Range Interpretation Comments SODIUM URINE (BEAKER) (test code = 60 meq/L 243) Reference Range: No NormalsOSMOLALITY, [id number] 20:40:00 Test Item Value Reference Range Interpretation Comments OSMOLALITY URINE (BEAKER) (test 169 mOsm/kg 40-1400 code = 614) [id number] 20:37:00 Test Item Value Reference Range Interpretation Comments ETHANOL (BEAKER) (test code = 400) < mg/dL <=10 [id number] 20:35:00 Test Item Value Reference Range Interpretation Comments AMMONIA (BEAKER) (test code = 348) 33 mol/L 18-72 MR, MRA, BRAIN, WITHOUT [id number] 19:42:00FINAL REPORT MRA head and neck without contrast. CLINICAL HISTORY: Stroke. COMP ARISON: None. TECHNIQUE: Two- and three-dimensional ndxk-po-yzkmsq MRA images of the intra- and extracranial [...] right common carotid artery (image 1). MRA [place]: There is no vessel occlusion, flow-limiting stenosis, or aneurysm in the intracranial carotid or vertebrobasilar arterial circulations. IMPRESSION: Negative intra- and extracranial MRAs. 2 cm round T2 hyperintense structure/lesion anterior tothe right common carotid artery, which may represent a thyroid nodule or internal jugular vein. A contrast enhanced CT neck is recommended for further evaluation. Dr Prater of neurology was notified at ap proximately 7:40 PM on 04/03/2018. Signed: Leela Pina MDRepm[facility] Verified Date/Time: 04/03/2018 19:42:20 Reading Location: [address] Transitional Reading Room MR, MRA, NECK, WITHOUT IV [id number] 19:42:00FINAL REPORT MRA head and neck without contrast. CLINICAL HISTORY: Stroke. COMPARISON: None. TECHNIQUE: Two- and three-dimensional xers-vi-bcqifd MRA images of the intra- and extracranial [...] right common carotid artery (image 1). MRA [place]: There is no vessel occlusion, [...] [place] Verified Date/Time: 04/03/2018 19:42:20 Reading Location: [address] Transitional Reading Room CREATINE KINASE (CK), TOTAL AND [id number] 19:36:00 Test Item Value Reference Range Interpretation Comments CREATINE KINASE TOTAL (BEAKER) 103 U/L 29-200 (test code = 380) CREATINE KINASE-MB (BEAKER) (test 2.5 ng/mL 0.0-6.6 code = 750) CREATINE KINASE-MB INDEX (BEAKER) 2.4 % (test code = 395) CK-MB Reference Range:<6.7 Normal6.7-10.0 Borderline>10.0 AbnormalTROPONIN [id number] 19:36:00 Test Item Value Reference Range Interpretation [...] neurological disease, and persistent tachyarrhythmia.MR, BRAIN, WITHOUT [id number] 19:34:00FINAL REPORT Exam: MRI brain without contrast. [...] [place]ort Verified Date/Time: 04/03/2018 19:34:38 Reading Location: [address] Reading Room B-TYPE NATRIURETIC FACTOR (BNP)2018-04-03 19:33:00 Test Item Value Reference Range Interpretation Comments B-TYPE NATRIURETIC PEPTIDE (BEAKER) 90 pg/mL 0-100 (test code = 700) URINALYSIS W/ [id number] 18:43:00 Test Item Value Reference Range Interpretation [...] 520) SOURCE(BEAKER) (test code = Urine, Good[place] 5411) BASIC METABOLIC [id number] 18:32:00 Test Item Value Reference Range Interpretation [...] m DATA TO CALCULA TE ESTIMATED GFR. [id number] 18:28:00 Test Item Value Reference Range Interpretation Comments MAGNESIUM (BEAKER) (test code = 1.7 mg/dL 1.6-2.6 627) PT/[id number] 18:02:00 Test Item Value Reference Range Interpretation [...] mechanical heart valves.CBC W/PLT COUNT & AUTO [id number] 17:54:00 Test Item Value Reference Range Interpretation [...] PERCENT (BEAKER) (test code = 2801) POCT-GLUCOSE [id number] 17:49:00 Test Item Value Reference Range Interpretation Comments POC-GLUCOSE METER 100 mg/dL 70-110 TESTED AT [place] [address] (JESSY) (test code = [place] 1538) [address] CT, BRAIN/STROKE [id number] 17:45:00Reason for exam:->stroke protocolIs the patient ?->NoWhat [...] Roque at 1740 hours. Signed: Kenton Miranda MDReport Verified Date/Time: 04/03/2018 17:45:48 Reading Location: [address] Reading Room
[2022-10-01] MEDS ORDERED: ONDANSETRON 4 MG/2 ML VIAL ONE (12:21)
[2022-10-01] MEDS ORDERED: MORPHINE 4 MG/ML SYR ONE (12:21)
--- NOTE | 2022-10-01 13:21 | RAD REPORT ---
EXAM DESCRIPTION: RAD - Hip Right 2 View - 10/01/2022 1:12 pm CLINICAL HISTORY: PAIN COMPARISON: Hip Right 2 View dated 01/30/2019; Hip Right 2 View dated 03/10/2017; Femur Right dated FINDINGS/IMPRESSION: Status post right total hip arthroplasty. Interval development of a periprosthe tic fracture at the right hip with approximately 13 millimeters of distraction of a fragment involvin g the lesser trochanter. No dislocation.
[2022-10-01] MEDS ORDERED: FENTANYL CITR 100 MCG/2 ML ONE ×2 (13:27→15:14)
--- NOTE | 2022-10-01 14:34 | ER ---
Nurse's Notes [facility] Name: Lizbet Solares Age: 57 yrs Sex: Female : 1965 Arrival Date: 10/01/2022 Time: 12:05 Bed 6 Private MD: Diagnosis: Periprosthetic hip fracture - right Presentation: 10/01 12:10 Chief complaint: EMS states: client had a right hip replacement about 3 weeks ago. kc6 client was on her way to the doctor this morning to have sutures removed, when she stood up she felt a pop with pain and sat back down. Coronavirus screen: Vaccine status: Patient reports receiving the 2nd dose of the covid vaccine. At this time, the client does not indicate any symptoms associated with coronavirus-19. Ebola Screen: No symptoms or risks identified at this time. Initial Sepsis Screen: Does the patient meet any 2 criteria? No. Patient's initial sepsis screen is negative. Does the patient have a suspected source of infection? No. Patient's initial sepsis screen is negative. Risk Assessment: Do you want to hurt yourself or someone else? Patient reports no desire to harm self or others. Onset of symptoms was October 01, 2022 at 12:12. 12:10 Method Of Arrival: EMS: [facility] kc6 12:10 Acuity: NAFISA 3 kc6 Triage Assessment: 12:14 General: Appears in no apparent distress. uncomfortable, Behavior is calm, cooperative, kc6 appropriate for age. Pain: Complains of pain in right hip Pain does not radiate. Pain currently is 7 out of 10 on a pain scale. Quality of pain is described as sharp, Pain began suddenly, Is continuous, Alleviated by nothing. Aggravated by increased activity, repositioning, weight bearing, Noted to be resistant to movement, Also complains of no other associated symptoms. Current management is with oxycodone. EENT: No signs and/or symptoms were reported regarding the EENT system. Neuro: Saleh Agitation-Sedation Scale (RASS): 0 - Alert and Calm Level of Consciousness is awake, alert, obeys commands, Oriented to person, place, time, situation, Appropriate for age. Cardiovascular: Heart tones S1 S2 present Capillary refill < 3 seconds. Respiratory: Airway is patent Trachea midline Respiratory effort is even, unlabored, Respiratory pattern is regular, symmetrical, Breath sounds are clear bilaterally. GI: No signs and/or symptoms were reported involving the gastrointestinal system. : No signs and/or symptoms were reported regarding the genitourinary system. Derm: No signs and/or symptoms reported regarding the dermatologic system. Skin is intact, Skin is pink, warm \T\ dry. Musculoskeletal: Circulation, motion, and sensation intact. Capillary refill < 3 seconds, Range of motion: intact in all extremities, Reports pain in right hip. Historical: - Allergies: 12:12 No Known Allergies; kc6 - Home Meds: 12:12 Metoprolol Tartrate Oral [Active]; Omeprazole Oral [Active]; Oxycodone HCl Oral kc6 [Active]; Synthroid Oral [Active]; Wellbutrin Oral [Active]; - PMHx: 12:12 Hypothyroidism; Hypertension; Depression; chronic back pain; Anxiety; GERD; kc6 - PSHx: 12:12 R hip replacement; partial thyroidectomy; decompression of vertebrae; bilateral heels; kc6 left hip replacement; - Immunization history:: Client reports receiving the 2nd dose of the Covid vaccine, Flu vaccine is up to date. - Social history:: Smoking status: Patient denies any tobacco usage or history of. Screenin:16 [facility] ED Fall Risk Assessment (Adult) History of falling in the last 3 months, kc6 including since admission Yes- single mechanical fall (1 pt) Confusion or Disorientation No (0 pts) Intoxicated or Sedated No (0 pts) Impaired Gait Yes (1 pt) Mobility Assist Device Used Yes (1 pt) Altered Elimination No (0 pt) Score/Fall Risk Level 3 or more points = High Risk Oriented to surroundings, Maintained a safe environment, Educated pt \T\ family on fall prevention, incl call for assistance when getting out of bed, Assessed \T\ reinforced patient's understanding of fall precautions, Provided non-skid footwear, Hourly rounding (assess needs \T\ fall precautionary measures) done, Used ambulatory aids as needed (educated on \T\ assisted with), Used gait belt as appropriate Implemented a Fall Risk Plan of Care, Apply high fall risk patient identification: yellow non skid footwear/ fall signage, Placed fall mat w/ non beveled edge next to bed, Activated bed/chair alarm, Remained w/in arm's length of patient and in sight while toileting, Offered frequent toileting (1:1 observation), Remained with patient while ambulating, Utilized family, sitter, or virtual building rental superintendent as indicated. Abuse screen: Denies threats or abuse. Denies injuries from another. Nutritional screening: No deficits noted. Tuberculosis screening: No symptoms or risk factors identified. Assessment: 12:16 Reassessment: please see triage assessment. kc6 13:16 Reassessment: Patient appears in no apparent distress at this time. No changes from hb previously documented assessment. Patient and/or family updated on plan of care and expected duration. Pain level reassessed. Patient is alert, oriented x 3, equal unlabored respirations, skin warm/dry/pink. 14:16 Reassessment: Patient appears in no apparent distress at this time. No changes from kc6 previously documented assessment. Patient and/or family updated on plan of care and expected duration. Pain level reassessed. Patient is alert, oriented x 3, equal unlabored respirations, skin warm/dry/pink. Vital Signs: 12:10 BP 122 / 69; Pulse 73; Resp 18 S; Temp 97.9(O); Pulse Ox 99% on R/A; Weight 92.99 kg kc6 (R); Height 5 ft. 4 in. (162.56 cm) (R); Pain 7/10; 13:16 BP 117 / 84; Pulse 67; Resp 18 S; Pulse Ox 100% on R/A; Pain 8/10; hb 14:16 BP 115 / 63; Pulse 65; Resp 16 S; Pulse Ox 100% on R/A; kc6 12:10 Body Mass Index 35.19 (92.99 kg, 162.56 cm) 6 ED Course: 12:05 Patient arrived in ED. ss 12:07 Caridad Liz FNP-C is PHCP. kb 12:07 Cr Perez MD is Attending Physician. kb 12:10 Katya Steele RN is Primary Nurse. kc6 12:12 Triage completed. kc6 12:17 Arm band placed on. kc6 12:17 Patient has correct armband on for positive identification. Placed in gown. Bed in low kc6 position. Call light in reach. Side rails up X2. Adult w/ patient. 12:29 Inserted saline lock: 22 gauge in right antecubital area, using aseptic technique. kc6 13:13 Hip Right 2 View XRAY In Process Unspecified. EDMS 14:00 intiated a transfer with Carolina from the [facility] at the request eb of the patient. 14:02 SARS RAPID Sent. kc6 14:24 No provider procedures requiring assistance completed. Patient transferred, IV remains kc6 in place. 14:37 administrative approval given by Carolina Romano Rn/ patient has been accepted to [facility]/ Dr. Qing Panda has accepted the patient in transfer/ report to be called to [phone]. Administered Medications: 12:29 Drug: morphine 4 mg Route: IVP; Infused Over: 4 mins; Site: right antecubital; kc6 13:29 Follow up: Response: No adverse reaction; Pain is unchanged, physician notified; RASS: hb Alert and Calm (0) 12:29 Drug: Zofran (Ondansetron) 4 mg Route: IVP; Site: right antecubital; kc6 13:30 Follow up: Response: No adverse reaction hb 13:29 Drug: fentaNYL (PF) 50 mcg Route: IVP; Site: right antecubital; hb 14:03 Follow up: Response: No adverse reaction; Pain is unchanged, physician notified; RASS: kc6 Alert and Calm (0) 15:28 Drug: fentaNYL (PF) 50 mcg Route: IVP; Site: right antecubital; kc6 15:32 CANCELLED (already givenn): fentaNYL (PF) 50 mcg IVP once kc6 Medication: 14:24 VIS not applicable for this client. kc6 Outcome: 14:33 ER care complete, transfer ordered by MD. stokes 15:13 Transferred by ground EMS to [facility], Transfer form completed. Note: kc6 report called to EVER Mckinney 15:13 Condition: stable 15:13 Instructed on the need for transfer. 15:32 Patient left the ED. kc6 Signatures: Dispatcher [employer] EDMS Caridad Liz, CAROLYN LAM-Montse Mcgovern RN RN Briseyda Gray RN RN Melanie Carreon Katya Steele RN RN kc6 Corrections: (The following items were deleted from the chart) 12:14 12:12 PMHx: right and left hip replacement; kc6 kc6
--- NOTE | 2022-10-01 14:34 | EDPHYS ---
Physician Documentation [facility] Name: Lizbet Solares Age: 57 yrs Sex: Female : 1965 Arrival Date: 10/01/2022 Time: 12:05 Bed 6 Private MD: ED Physician Cr Perez HPI: 10/01 14:19 This 57 yrs old Female presents to ER via EMS with complaints of Hip Pain. kb 14:19 The patient or guardian reports decreased range of motion, pain. that occurred at home, kb sustained from sitting down, There is no obvious deformity, The patient is not able to ambulate. Patient is not able to bear weight. There is no radiation of the patient's discomfort. The patient was discovered at or immediately after the incident. The complaints affect the right hip. Onset: The symptoms/episode began/occurred today. Modifying factors: The symptoms are alleviated by nothing, the symptoms are aggravated by any movement. Associated signs and symptoms: Loss of consciousness: the patient experienced no loss of consciousness, Pertinent positives: None. Severity of symptoms: At their worst the symptoms were moderate, in the emergency department the symptoms are unchanged. The patient has not experienced similar symptoms in the past. The patient has not recently seen a physician. Pt reports she had a hip replacement on 09/07/22 at [facility]. Sat down today and felt a pop in right hip and has had pain ever since. . Historical: - Allergies: 12:12 No Known Allergies; kc6 - Home Meds: 12:12 Metoprolol Tartrate Oral [Active]; Omeprazole Oral [Active]; Oxycodone HCl Oral kc6 [Active]; Synthroid Oral [Active]; Wellbutrin Oral [Active]; - PMHx: 12:12 Hypothyroidism; Hypertension; Depression; chronic back pain; Anxiety; GERD; kc6 - PSHx: 12:12 R hip replacement; partial thyroidectomy; decompression of vertebrae; bilateral heels; kc6 left hip replacement; - Immunization history:: Client reports receiving the 2nd dose of the Covid vaccine, Flu vaccine is up to date. - Social history:: Smoking status: Patient denies any tobacco usage or history of. ROS: 14:19 Constitutional: Negative for fever, chills, and weight loss. kb 14:19 MS/extremity: Positive for decreased range of motion, pain, of the right hip. 14:19 All other systems are negative. Exam: 14:19 Constitutional: This is a well developed, well nourished patient who is awake, alert, kb and in no acute distress. Head/Face: Normocephalic, atraumatic. ENT: Moist Mucous membranes Cardiovascular: Regular rate and rhythm with a normal S1 and S2. No gallops, murmurs, or rubs. No pulse deficits. Respiratory: Respirations even and unlabored. No increased work of breathing. Talking in full sentences Abdomen/GI: Soft, non-tender. No distention Skin: Warm, dry with normal turgor. Normal color. Neuro: Awake and alert, GCS 15, oriented to person, place, time, and situation. Moves all extremities. Normal gait. Psych: Awake, alert, with orientation to person, place and time. Behavior, mood, and affect are within normal limits. 14:19 Musculoskeletal/extremity: Extremities: grossly normal except: noted in the right hip: decreased ROM, pain, ROM: limited active range of motion due to pain, Circulation is intact in all extremities. Sensation intact. Weight bearing: is unable to bear weight. Vital Signs: 12:10 BP 122 / 69; Pulse 73; Resp 18 S; Temp 97.9(O); Pulse Ox 99% on R/A; Weight 92.99 kg kc6 (R); Height 5 ft. 4 in. (162.56 cm) (R); Pain 7/10; 13:16 BP 117 / 84; Pulse 67; Resp 18 S; Pulse Ox 100% on R/A; Pain 8/10; hb 14:16 BP 115 / 63; Pulse 65; Resp 16 S; Pulse Ox 100% on R/A; kc6 12:10 Body Mass Index 35.19 (92.99 kg, 162.56 cm) kc6 MDM: 12:07 Patient medically screened. kb 14:17 Data reviewed: vital signs, nurses notes. Data interpreted: Pulse oximetry: on room air kb is 100 %. Interpretation: normal. Counseling: I had a detailed discussion with the patient and/or guardian regarding: the historical points, exam findings, and any diagnostic results supporting the discharge/admit diagnosis, radiology results, the need to transfer to another facility. ED course: Consulted pt's orthopedist, Dr Barry Meneses at [facility]. Wants pt transferred to [facility] ER for evaluation. . 10/01 13:42 Order name: SARS RAPID; Complete Time: 14:40 eb 10/01 12:10 Order name: Hip Right 2 View XRAY; Complete Time: 13:28 kb 10/01 12:17 Order name: IV Start; Complete Time: 12:29 kc6 Administered Medications: 12:29 Drug: morphine 4 mg Route: IVP; Infused Over: 4 mins; Site: right antecubital; kc6 13:29 Follow up: Response: No adverse reaction; Pain is unchanged, physician notified; RASS: hb Alert and Calm (0) 12:29 Drug: Zofran (Ondansetron) 4 mg Route: IVP; Site: right antecubital; kc6 13:30 Follow up: Response: No adverse reaction hb 13:29 Drug: fentaNYL (PF) 50 mcg Route: IVP; Site: right antecubital; hb 14:03 Follow up: Response: No adverse reaction; Pain is unchanged, physician notified; RASS: kc6 Alert and Calm (0) 15:28 Drug: fentaNYL (PF) 50 mcg Route: IVP; Site: right antecubital; kc6 15:32 CANCELLED (already givenn): fentaNYL (PF) 50 mcg IVP once kc6 Disposition: 18:49 Co-signature as Attending Physician, Cr Perez MD I agree with the assessment and rt plan of care. Disposition Summary: 10/01/22 14:33 Transfer Ordered Transfer Location: [facility] kb Reason: Higher level of care kb Condition: Stable kb Problem: new kb Symptoms: are unchanged kb Accepting Physician: Dr. Panda(10/01/22 15:32) kc6 Diagnosis - Periprosthetic hip fracture - right kb Forms: - Medication Reconciliation Form kb - SBAR form kb Signatures: Dispatcher [employer] Caridad Pond, GENARO-C PAIN MANAGEMENT NURSE PRACTITIONER-Briseyda Brown, RN RN aKtya Castillo RN RN kc6 Cr Perez MD MD rt Corrections: (The following items were deleted from the chart) 12:14 12:12 PMHx: right and left hip replacement; kc6 kc6 14:40 14:33 Dr stokes kb 15:32 15:29 fentaNYL (PF) 50 mcg IVP once ordered. kb kc6 15:32 14:40 Dr. Panda kb kc6
[2022-10-01 14:38] LABS: SARS-CoV-2 Antigen Rapid Res Negative (Negative)
[2022-10-01 15:41] VITALS: TEMP 97.9
[2022-10-01 15:47] VITALS: O2SAT 100
[2022-10-01 15:57] VITALS: BP 115/63
== END 2022-10-01 15:32 | disposition short-term general hospital (02) ==
LOC: ER 11:55
DX: M97.01XA Periprosthetic fracture around internal prosthetic right hip joint, initial encounter (principal); Z20.822 Contact with and (suspected) exposure to COVID-19
CPT/HCPCS: 36415; 87811; 96374; 96375; 99285; J2405; J3010

== ENCOUNTER 2023-02-22 05:13 | Observation (INO) | payer MEDICARE ==
--- OUTSIDE RECORDS SUMMARY | 2023-02-22 05:33 | XMS REPORT | Continuity of Care Document ---
:1965 Author Organization [facility] t Address [address] [facility] [address] [place] [address] Care Team Providers Name Role Phone Marcial Aolnzo Primary Care Physician RHETT XIONG Attending Clinician Unavailable BARRY PAYNE Attending Clinician Unavailable MARCIAL DOBBS Attending Clinician Unavailable JACKY QUEEN Attending Clinician Unavailable Jacky Baltazar Attending Clinician Marcial Alonzo Attending Clinician Lab, Ang - Db Attending Clinician Unavailable GURU CROWELL Attending Clinician Unavailable Doctor Unassigned, [place] Attending Clinician Unavailable Sterling Lee MD Attending Clinician Louis Manuel MD Attending Clinician DARBY DAVENPORT Attending Clinician Unavailable Darby Davenport MD Attending Clinician +[phone] BRIJESH BENITEZ Attending Clinician Unavailable Brijesh Benitez Jr Attending Clinician DION MCNEILL Attending Clinician Unavailable Dion Mcneill Attending Clinician Albna Marinelli Attending Clinician Marcos Sharif Attending Clinician MARCOS SHARIF Attending Clinician Unavailable Scotty Glass Attending Clinician SCOTTY GLASS Attending Clinician Unavailable Barry Payne Attending Clinician BARRY PAYNE Attending Clinician Unavailable RADHA GALINDO Attending Clinician Unavailable CAYDEN MUIR Attending Clinician Unavailable FOG_A_Provider Attending Clinician Unavailable Davy Berry MD Attending Clinician Rhett Xiong MD Attending Clinician YAMINI HURST Attending Clinician Unavailable Yamini Yates Attending Clinician Arnoldo Rosas Attending Clinician ARNOLDO BRICE Attending Clinician Unavailable Nicol Gonzáles MD Attending Clinician Paulina Velasquez PT Attending Clinician Unavailable Radha Galindo MD Attending Clinician Nick Vasquez PTA Attending Clinician Unavailable SHERICE ANTONIO Attending Clinician Unavailable Kari Peres PTA Attending Clinician Unavailable STERLING LEE Attending Clinician Unavailable Brian Morton MD Attending Clinician BRIAN OMRTON Attending Clinician Unavailable [facility] Attending Clinician Unavailjoan Main RN, [place] Attending Clinician Unavailable Benjamin Núñez RN Attending Clinician Unavailable RANULFO WOLFE Attending Clinician Unavailable IDANIA BIRMINGHAM Attending Clinician Unavailable Seferino INTERNATIONAL RECRUITERIdania Luevano Attending Clinician YANETFAUSTINO PENG B Attending Clinician Unavailable Faustino Anthony B Attending Clinician Parminder Agrawal MD Attending Clinician PARMINDER AGRAWAL Attending Clinician Unavailable PARMINDER AGRAWAL Attending Clinician Unavailable , Adc Lab Attending Clinician Unavailable John Manzo MD Attending Clinician JOHN MANZO Attending Clinician Unavailable LOUIS MANUEL Attending Clinician Unavailable [facility] Attending Clinician Unavailable KELLY CLARK Attending Clinician Unavailable Kelly Clark NP Attending Clinician Only, Ang Db Test Attending Clinician Unavailable NICOL GONZÁLES Attending Clinician Unavailable FRANCES LANCASTER Attending Clinician Unavailable Naima PAC, K Pamela Attending Clinician Only, Web Test Attending Clinician Unavailable Unknown, Attending Attending Clinician Unavailable Julia Laws RN Attending Clinician Unavailable [facility] Attending Clinician Unavailable SHARON ACOSTA Attending Clinician Unavailable MANUELITO ROQUE Attending Clinician Unavailable RHETT XIONG Admitting Clinician Unavailable MARCIAL DOBBS Admitting Clinician Unavailable BRIJESH BENITEZ Admitting Clinician Unavailable Brijesh Benitez Jr Admitting Clinician LEXIE REED Admitting Clinician Unavailable Lexie Reed Admitting Clinician Barry Payne Fraga Admitting Clinician BARRY PAYNE FRAGA Admitting Clinician Unavailable BARRY PAYNE Admitting Clinician Unavailable FOG_A_Provider Admitting Clinician Unavailable FAUSTINO HOLT B Admitting Clinician Unavailable LOUIS MANUEL Admitting Clinician Unavailable KELLY CLARK Admitting Clinician Unavailable ALENA GARRETT Admitting Clinician Unavailable Payers Payer Name Policy Type Policy Number Effective Date Expiration Date S let[place] [id number] 2021 ADVANTAGE HMO/PLUS 00:00:00 HIM BCBS BLUE [id number] 2019 ADVANTAGE HMO 00:00:00 BLUE ADVANTAGE [id number] HMO-MARKETPLACE - BCBS MARKETPLACE PLAN [id number] 2007 2022 HMO 00:00:00 00:00:00 AIXA [id number] 2016 00:00:00 XBN-XDQ-UZBMUE/MENDOZA [id number] 2006 CE PLUS 00:00:00 [facility] [id number] 2018 CHOICE HMO 00:00:00 [facility] PCP Problems Condition Condition Condition Status Onset Resolution Last Treating Co mments Source Name Details Category Date Date Treatment Clinician Date 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 3- ity of 00:00: [address] Branch Bladder Bladder Disease Active Univers spasm spasm 3-21 ity of 00:00: [address] Branch BMI BMI Disease Active Univers 39.0-39.9, 39.0-39.9, 3-21 it y of adult adult 00:00: [place] 00 [facility] Branch Dysuria Dysuria Disease Active Univers 3-21 ity of 00:00: [address] Branch Periprosth Periprosth Disease Active U T etic etic 1-19 Health fracture fracture 00:00: around around 00 internal internal prosthetic prosthetic right hip right hip joint joint Status Status Disease Active 2021-10 [facility] post right post right 2-15 He alth hip hip 00:00: replacemen replacemen 00 t t Primary Primary Disease Active 2021-10 Univers osteoarthr osteoarthr 2-09 it y of itis of itis of 00:00: [place] right hip right hip 00 [facility] Right hip Right hip Disease Active 2021-10 [facility] pain pain 1-23 Health 00:00: 00 Acute pain Acute pain Disease Active 2021-10 U T of both of both 1-11 Health knees knees 00:00: 00 Internal Internal Disease Active 2021-10 [facility] derangemen derangemen 1-11 He alth t of right t of right 00:00: knee knee 00 Internal Internal Disease Active 2021-10 UT derangemen derangemen 1-11 He alth t of left t of left 00:00: knee knee 00 Primary Primary Disease Active 2021-10 UT osteoarthr osteoarthr 0 He alth itis of itis of 00:00: right hip right hip 00 Status Status Disease Active 2021-10 [facility] post left post left 0 Heal th hip hip 00:00: replacemen replacemen 00 t t Presence Presence Disease Active 2021-10 [facility] of right of right 0-13 Health artificial artificial 00:00: hip joint hip joint 00 Primary Primary Disease Active UT osteoarthr osteoarthr [...] index mass index (BMI) of (BMI) of 35.0 to 35.0 to 35.9 in 35.9 in adult adult 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 06-24 He alth of length of length 00:00: of femur, of femur, 00 left left 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 00:00: [place] of right of right 00 Medica l femur femur Branch M87.052 M87.052 Diagnosis Active 2022-07-23 Memoria Active 06-24 09:47:00 l 06/24/2022 00:00: [place] UNK UNK Diagnosis Active 2022-07-02 Mem oria Active 06-24 07:16:00 l 06/24/2022 00:00: [place] Subchondra Subchondra Disease Active U nivers l l 06-12 ity of insufficie insufficie [place] 00 Medical fracture fracture Branch of condyle of condyle of left of left femur, femur, initial initial encounter encounter Pre-operat Pre-operat Disease Active U kam marquez jimmy 9-02 ity of clearance clearance 00:00: s Medical Branch Osteoarthr Osteoarthr Disease Active Overview : Univers itis of itis of 8-17 Formattin ity o f left hip, left hip, 00:00: g of this [place] unspecifie unspecifie 00 note Me dical d d might be Branch osteoarthr osteoarthr different itis type itis type from the original. Added automatic ally from request for surgery [id number] Need for Need for Disease Active Unive [...] lumbar 8-08 ity of disc disc 00:00: [place] [facility] Encounter Encounter Disease Active Uni vers to discuss to discuss 8-08 it y of test test 00:00: [place] results results 00 Medical Branch Left hip Left hip Disease Active Unive rs pain pain 6-06 ity of 00:00: Medical Branch S/P S/P Disease Active Univers laminectom laminectom 6-06 it y of y y 00:00: Medical Branch Abnormal Abnormal Disease Active Unive rs gait gait 6-06 ity of 00:00: Medical Branch Left leg Left leg Disease Active Unive rs pain pain 5-13 ity of 00:00: [place] Medical [facility] Sciatica Sciatica Disease Active Unive rs of right of right 4-06 ity of side side 00:00: [place] Medical Branch Chronic Chronic Disease Active Univers midline midline 4-06 ity of low back low back 00:00: [place] pain pain 00 Medical without without Branch sciatica sciatica Abnormal Abnormal Disease Active Unive rs liver liver -27 ity of ultrasound ultrasound [place] [facility] [place] Severe Severe Disease Active Univers obstructiv obstructiv 11-05 it y of e sleep e sleep 00:00: [place] apnea apnea 00 Medical Branch Prediabete Prediabete Disease Active U nivers s s 1-19 ity of 00:00: [place] [facility] Mixed Mixed Disease Active Univers hyperlipid hyperlipid -19 it y of emia emia 00:00: [place] [facility] Abnormal Abnormal Disease Active Unive rs LFTs LFTs -19 ity of 00:00: [place] [facility] GERD GERD Disease Active Univers (gastroeso (gastroeso 1-17 it y of phageal phageal 00:00: [place] reflux reflux Medical disease) disease) Branch Mitral Mitral Disease Active Univers valve valve 1-17 ity of prolapse prolapse 00:00: [place] [facility] Anxiety Anxiety Disease Active Univers 1-17 ity of 00:00: [place] [facility] Pernicious Pernicious Disease Active U aidaners anemia anemia 1-17 ity of 00:00: [place] [facility] Morbid Morbid Disease Active Univers obesity obesity 1-17 ity of with body with body 00:[place] mass index mass index 00 Me dical (BMI) of (BMI) of Branch 40.0 or 40.0 or higher higher 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 04-06 [facility] kes disorder disorder 00:00: Medica l 00 Center Hyponatrem Hyponatrem Disease Active [facility] ia 6[facility] syndrome syndrome 00:00: Medica l 00 Center Primary Primary Disease Active [facility] polydipsia polydipsia - Zule[place] kes 00:00: Medical 00 Center Acute Acute Disease Active [facility] metabolic metabolic 04-03 Luke s encephalop encephalop 00:00: Me dical athy athy 00 Center Alcohol Alcohol Disease Active Methodi abuse abuse 06 st 00:00: Hospita 00 l PAIN PAIN Diagnosis Active 2018-0 2019-06-28 Mem oria Active 10-11 13:24:00 l 10/11/2017 08:00: [place] [address] No known No known Disease UT active active Health problems problems Adult Adult Problem Active 2022-07-20 Memor ia attention attention 06:43:36 l deficit deficit [place] hyperactiv hyperactiv ity ity disorder disorder (disorder) (disorder) Active Problem 07/20/2022 [facility] Human Human Problem Active 2022-07-20 Memor ia T-lymphotr T-lymphotr 06:43:36 l opic virus opic virus He rmann 2 2 infection infection (disorder) (disorder) Active Problem 07/20/2022 [facility] Hyperlipid Hyperlipi Problem Active 2022-07-20 Memoria emia demia 06:43:36 l (disorder) (disorder) He rmann Active Problem 07/20/2022 [facility] Hypertensi Hypertens Problem Active 2022-07-20 Memoria ve jimmy 06:43:36 l disorder, disorder, Herm oma systemic systemic arterial arterial (disorder) (disorder) Active Problem 07/20/2022 [facility] Hypothyroi Hypothyro Problem Active 2022-07-20 Memoria dism idism 06:43:36 l (disorder) (disorder) He rmann Active Problem 07/20/2022 [facility] Osteoporos Osteoporo Problem Active 2022-07-20 Memoria is sis 06:43:36 l (disorder) (disorder) He rmann Active Problem 07/20/2022 [facility] IDIOPATHIC IDIOPATHI Diagnosis Active 2022-07-23 Memoria ASEPTIC C ASEPTIC 09:47:00 l 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 Active [facility] Closed Closed Problem Resolve 2022-07-20 Mem oria fracture fracture d 06:43:36 l of upper of upper [place] end of end of humerus humerus (disorder) (disorder) Resolved Problem 07/20/2022 [facility] Fracture Fracture Problem Resolve 2022-07-20 Memoria of of d 06:43:36 l calcaneus calcaneus Herm oma (disorder) (disorder) Resolved Problem 07/20/[address] [facility] History of History Problem Resolve 2022-07-20 Memoria - upper of - upper d 06:43:36 l gastrointe gastrointe He rmann stinal stinal tract tract hemorrhage hemorrhage (context-d (context-d ependent ependent category) category) Resolved Problem 07/20/2022 [facility] Heart Heart Problem Resolve 2022-07-20 Stefan adalberto murmur murmur d 06:43:36 l (finding) (finding) Willie oma Resolved Problem 07/20/2022 [place] History of History Problem Resolve 2022-07-20 Memoria - GI Bleed of - GI d 06:43:36 l (context-d Bleed [place] ependent (context-d category) ependent category) Resolved Problem 07/20/2022 [facility] Allergies, Adverse Reactions, Alerts Allergy Allergy Status Severity Reaction(s) Onset Inactive Treating Comm ents Source Name Type Date Date Clinician NO KNOWN Drug Active Univers ALLERGIE Class ity of S [facility] NO KNOWN Allergy Active [facility] ALLERGIE S Social History Social Habit Start Date Stop Date Quantity Comments Source History SDGA University o f Alcohol Frequency [facility] edical Branch History [facility] University o f Alcohol Std Drinks [facility] History [facility] University o f Alcohol Binge [facility] [place] Gender identity [facility] Sexual orientation [facility] Exposure to 2023-01-24 2023-02-03 Not sure University SARS-CoV-2 (event) 00:00:00 13:07:00 [facility] Cigarettes smoked 2022-06-11 2022-06-11 OR Heal th current (pack per 00:00:00 00:00:00 day) - Reported Cigarette 2022-06-11 2022-06-11 OR Health pack-years 00:00:00 00:00:00 Tobacco use and 2022-06-11 2022-06-11 Smokeless tobacco [place] Health exposure 00:00:00 00:00:00 non-user History of Social 2022-06-06 2022-06-[address] function 00:00:00 00:00:00 Hospital Alcohol intake 2022-06-06 2022-06-06 Ex-drinker Jew 00:00:00 00:00:00 (finding) Hospital Alcohol Comment 2021-10-21 2021-10-21 recovering Universit y of 00:00:00 00:00:00 alcoholic [facility] Social History 2019-04-27 2019-04-27 [facility] Bill munoz 13:55:12 13:55:12 History of tobacco 1981-05-11 1988-05-11 Cigarette Smoker [facility] use 00:00:00 00:00:00 Sex [birth year] Jew 00:00:00 00:00:00 Hospital Smoking Status Start Date Stop Date Source Ex-smoker 2022-06-11 00:00:00 2022-06-11 00:00:00 OR Healt Medications Ordered Filled Start Stop Current Ordering Indication Dosage Frequency Signature Comments Components Source Medication Medication Date Date Medication? Clinician (SIG) Name Name oxybutynin Yes [id number] 10mg Take 1 U nivers XL 10 mg 24 4-26 tablet by ity of hr tablet 00:00: [place] morning. Branch oxybutynin Yes [id number] 10mg Take 1 U nivers XL 10 mg 24 4-26 tablet by [facility] Branch amoxicillin Yes [id number] TAKE 4 UT (Amoxil) 4-13 TABLETS Health 500 MG 00:00: ONE HOUR capsule 00 BEFORE DENTAL VISIT, THEN TAKE 4 TABLETS ONE HOUR AFTER DENTAL VISIT. LIOTHYRONIN Yes [id number] TAKE 1 Univers E 5 mcg 3-31 TABLET BY ity of tablet 00:00: [facility] TWICE Medical DAILY Branch LIOTHYRONIN 0 Yes [id number] TAKE 1 Univers E 5 mcg 3-31 TABLET BY ity of tablet 00:00: [facility] TWICE Medical DAILY Branch LIOTHYRONIN 0 Yes [id number] TAKE 1 Univers E 5 mcg 3-31 TABLET BY ity of tablet 00:00: [facility] TWICE Medical DAILY Branch LIOTHYRONIN 0 Yes [id number] TAKE 1 Univers E 5 mcg 3-31 TABLET BY ity of tablet 00:00: MOUTH [place] TWICE Medical DAILY Branch LIOTHYRONIN 0 Yes [id number] TAKE 1 Univers E 5 mcg 3-31 TABLET BY ity of tablet 00:00: MOUTH [place] 00 TWICE Medical DAILY Branch escitalopra 2023-0 Yes 30mg Take 1.5 Un brit m oxalate 3-21 tablets by ity of 20 mg 08:50: mouth in [place] tablet 43 the Medical morning. Branch 30mg escitalopra 2023-0 Yes 30mg Take 1.5 Un brit m oxalate 3-21 tablets by ity of 20 mg 08:50: mouth in [place] tablet 43 the Medical morning. Branch 30mg escitalopra 2023-0 Yes 30mg Take 1.5 Un brit m oxalate 3-21 tablets by ity of 20 mg 08:50: mouth in [place] tablet 43 the Medical morning. Branch 30mg escitalopra 2023-0 Yes 30mg Take 1.5 Un brit m oxalate 3-21 tablets by ity of 20 mg 08:50: mouth in [place] tablet 43 the Medical morning. Branch 30mg escitalopra 2023-0 Yes 30mg Take 1.5 Un brit m oxalate 3-21 tablets by ity of 20 mg 08:50: mouth in [place] tablet 43 the Medical morning. Branch 30mg escitalopra 2023-0 Yes 30mg Take 1.5 Un brit m oxalate 3-21 tablets by ity of 20 mg 08:50: mouth in [place] tablet 43 the Medical morning. Branch 30mg escitalopra 2023-0 Yes 30mg Take 1.5 Un brit m oxalate 3-21 tablets by ity of 20 mg 08:50: mouth in [place] tablet 43 the Medical morning. Branch 30mg escitalopra 2023-0 Yes 30mg Take 1.5 Un brit m oxalate 3-21 tablets by ity of 20 mg 08:50: mouth in [place] tablet 43 the Medical morning. Branch 30mg escitalopra 2023-0 Yes 30mg Take 1.5 Un brit m oxalate 3-21 tablets by ity of 20 mg 08:50: mouth in [place] tablet 43 the Medical morning. Branch 30mg escitalopra 2023-0 Yes 30mg Take 1.5 Un brit m oxalate 3-21 tablets by ity of 20 mg 08:50: mouth in [place] tablet 43 the Medical morning. Branch 30mg escitalopra 2023-0 Yes 30mg Take 1.5 Un brit m oxalate 3-21 tablets by ity of 20 mg 08:50: mouth in [place] tablet 43 the Medical morning. Branch 30mg escitalopra 2023-0 Yes 30mg Take 1.5 Un brit m oxalate 3-21 tablets by ity of 20 mg 08:50: mouth in [place] tablet 43 the Medical morning. Branch 30mg escitalopra 2023-0 Yes 30mg Take 1.5 Un brit m oxalate 3-21 tablets by ity of 20 mg 08:50: mouth in [place] tablet 43 the Medical morning. Branch 30mg ARIPiprazol 2023-0 Yes 5mg Take 1 Univ ers e 5 mg 3-21 tablet by ity of tablet 08:49: mouth in [place] [address] the Medical morning. Branch traZODone 2023-0 Yes 200mg Take 2 Unive rs 100 mg 3-21 tablets by ity of tablet 08:49: mouth. [place] [address] Medical Branch ARIPiprazol 2023-0 Yes 5mg Take 1 Univ ers e 5 mg 3-21 tablet by ity of tablet 08:49: mouth in [place] [address] the Medical morning. Branch traZODone 2023-0 Yes 200mg Take 2 Unive rs 100 mg 3-21 tablets by ity of tablet 08:49: mouth. [place] [address] Medical Branch ARIPiprazol 2023-0 Yes 5mg Take 1 Univ ers e 5 mg 3-21 tablet by ity of tablet 08:49: mouth in [place] [address] the Medical morning. Branch traZODone 2023-0 Yes 200mg Take 2 Unive rs 100 mg 3-21 tablets by ity of tablet 08:49: mouth. [place] [address] Medical Branch ARIPiprazol 2023-0 Yes 5mg Take 1 Univ ers e 5 mg 3-21 tablet by ity of tablet 08:49: mouth in [place] [address] the Medical morning. Branch traZODone 2023-0 Yes 200mg Take 2 Unive rs 100 mg 3-21 tablets by ity of tablet 08:49: mouth. [place] [address] Medical Branch ARIPiprazol 2023-0 Yes 5mg Take 1 Univ ers e 5 mg 3-21 tablet by ity of tablet 08:49: mouth in [place] [address] the Medical morning. Branch traZODone 2023-0 Yes 200mg Take 2 Unive rs 100 mg 3-21 tablets by ity of tablet 08:49: mouth. [place] [address] Medical Branch ARIPiprazol 2023-0 Yes 5mg Take 1 Univ ers e 5 mg 3-21 tablet by ity of tablet 08:49: mouth in [place] [address] the Medical morning. Branch traZODone 2023-0 Yes 200mg Take 2 Unive rs 100 mg 3-21 tablets by ity of tablet 08:49: mouth. [place] [address] Medical Branch ARIPiprazol 2023-0 Yes 5mg Take 1 Univ ers e 5 mg 3-21 tablet by ity of tablet 08:49: mouth in [place] [address] the Medical morning. Branch traZODone 2023-0 Yes 200mg Take 2 Unive rs 100 mg 3-21 tablets by ity of tablet 08:49: mouth. [place] [address] Medical Branch ARIPiprazol 2023-0 Yes 5mg Take 1 Univ ers e 5 mg 3-21 tablet by ity of tablet 08:49: mouth in [place] [address] the Medical morning. Branch traZODone 2023-0 Yes 200mg Take 2 Unive rs 100 mg 3-21 tablets by ity of tablet 08:49: mouth. [place] [address] Medical Branch ARIPiprazol 2023-0 Yes 5mg Take 1 Univ ers e 5 mg 3-21 tablet by ity of tablet 08:49: mouth in [place] [address] the Medical morning. Branch traZODone 2023-0 Yes 200mg Take 2 Unive rs 100 mg 3-21 tablets by ity of tablet 08:49: mouth. [place] [address] Medical Branch ARIPiprazol 2023-0 Yes 5mg Take 1 Univ ers e 5 mg 3-21 tablet by ity of tablet 08:49: mouth in [place] [address] the Medical morning. Branch traZODone 2023-0 Yes 200mg Take 2 Unive rs 100 mg 3-21 tablets by ity of tablet 08:49: mouth. [place] [address] Medical Branch ARIPiprazol 2023-0 Yes 5mg Take 1 Univ ers e 5 mg 3-21 tablet by ity of tablet 08:49: mouth in [place] [address] the Medical morning. Branch traZODone 2023-0 Yes 200mg Take 2 Unive rs 100 mg 3-21 tablets by ity of tablet 08:49: mouth. [place] [address] Medical Branch ARIPiprazol 2023-0 Yes 5mg Take 1 Univ ers e 5 mg 3-21 tablet by ity of tablet 08:49: mouth in [place] [address] the Medical morning. Branch traZODone 2023-0 Yes 200mg Take 2 Unive rs 100 mg 3-21 tablets by ity of tablet 08:49: mouth. [address] ARIPiprazol 2023-0 Yes 5mg Take 1 Univ ers e 5 mg 3-21 tablet by ity of tablet 08:49: mouth in [place] [address] the Medical morning. Branch traZODone 2023-0 Yes 200mg Take 2 Unive rs 100 mg 3-21 tablets by ity of tablet 08:49: mouth. [address] ARIPiprazol 3-0 Yes 5mg Take 1 Univ ers e 5 mg 3-21 tablet by ity of tablet 08:49: mouth in [place] [address] the Medical morning. Branch traZODone 3-0 Yes 200mg Take 2 Unive rs 100 mg 3-21 tablets by ity of tablet 08:49: mouth. [address] buPROPion 3-0 Yes Take by Unive rs HCL 450 mg 3-21 mouth ity of tablet 08:49: daily. [address] buPROPion 3-0 Yes Take by Unive rs HCL 450 mg 3-21 mouth ity of tablet 08:49: daily. [address] buPROPion 3-0 Yes Take by Unive rs HCL 450 mg 3-21 mouth ity of tablet 08:49: daily. [address] buPROPion 3-0 Yes Take by Unive rs HCL 450 mg 3-21 mouth ity of tablet 08:49: daily. [address] buPROPion 3-0 Yes Take by Unive rs HCL 450 mg 3-21 mouth ity of tablet 08:49: daily. [address] buPROPion 2023-0 Yes Take by Unive rs HCL 450 mg 3-21 mouth ity of tablet 08:49: daily. [address] buPROPion 2023-0 Yes Take by Unive rs HCL 450 mg 3-21 mouth ity of tablet 08:49: daily. [address] buPROPion 2023-0 Yes Take by Unive rs HCL 450 mg 3-21 mouth ity of tablet 08:49: daily. [address] buPROPion 3-0 Yes Take by Unive rs HCL 450 mg 3-21 mouth ity of tablet 08:49: daily. [address] buPROPion 2022-0 Yes Take by Unive rs HCL 450 mg 3-21 mouth ity of tablet 08:49: daily. [address] Branch buPROPion 2022-0 Yes Take by Unive rs HCL 450 mg 3-21 mouth ity of tablet 08:49: daily. [address] Branch buPROPion 2022-0 Yes Take by Unive rs HCL 450 mg 3-21 mouth ity of tablet 08:49: daily. [address] Branch buPROPion 2022-0 Yes Take by Unive rs HCL 450 mg 3-21 mouth ity of tablet 08:49: daily. [address] Branch oxybutynin 2022-0 Yes [id number] 5mg Take 1 U nivers XL 5 mg 24 3-21 tablet by ity of hr tablet 00:00: [place] Branch tirzepatide 2022-0 Yes [id number] 2.5mg inject 2.5 Univers 2.5 mg/0.5 3-21 mg under ity o f mL 00:00: the skin [facility] 00 weekly. Medic al s injection Branch oxybutynin 2022-0 Yes [id number] 5mg Take 1 U nivers XL 5 mg 24 3-21 tablet by ity of hr tablet 00:00: [place] the [place]. Branch tirzepatide 2022-0 Yes [id number] 2.5mg inject 2.5 Univers 2.5 mg/0.5 3-21 mg under ity o f mL 00:00: the skin [facility] 00 weekly. Medic al s injection Branch oxybutynin 2022-0 Yes [id number] 5mg Take 1 U nivers XL 5 mg 24 3-21 tablet by ity of hr tablet 00:00: [place] the Medical morning. Branch tirzepatide 2022-0 Yes [id number] 2.5mg inject 2.5 Univers 2.5 mg/0.5 3-21 mg under ity o f mL 00:00: the skin [facility] 00 weekly. Medic al s injection Branch oxybutynin 2022-0 Yes [id number] 5mg Take 1 U nivers XL 5 mg 24 3-21 tablet by ity of hr tablet 00:00: [place] the Medical morning. Branch tirzepatide 2022-0 Yes [id number] 2.5mg inject 2.5 Univers 2.5 mg/0.5 3-21 mg under ity o f mL 00:00: the [facility] 00 weekly. Medic al s injection Branch oxybutynin 2022-0 Yes [id number] 5mg Take 1 U nivers XL 5 mg 24 3-21 tablet by ity of hr tablet 00:00: [place] the Medical morning. Branch tirzepatide 2022-0 Yes [id number] 2.5mg inject 2.5 Univers 2.5 mg/0.5 3-21 mg under ity o f mL 00:00: the [facility] 00 weekly. Medic al s injection Branch oxybutynin 2022-0 Yes [id number] 5mg Take 1 U nivers XL 5 mg 24 3-21 tablet by ity of hr tablet 00:00: [place] the Medical morning. Branch tirzepatide 2022-0 Yes [id number] 2.5mg inject 2.5 Univers 2.5 mg/0.5 3-21 mg under ity o f mL 00:00: the [facility] 00 weekly. Medic al s injection Branch oxybutynin 2022-0 Yes [id number] 5mg Take 1 U nivers XL 5 mg 24 3-21 tablet by ity of hr tablet 00:00: [place] the Medical morning. Branch tirzepatide 2022-0 Yes [id number] 2.5mg inject 2.5 Univers 2.5 mg/0.5 3-21 mg under ity o f mL 00:00: the [facility] 00 weekly. Medic al s injection Branch oxybutynin 3-0 Yes [id number] 5mg Take 1 U nivers XL 5 mg 24 3-21 tablet by [facility]y of hr tablet 00:00: [place] 00 the Medical morning. Branch tirzepatide 2022-0 Yes [id number] 2.5mg inject 2.5 Univers 2.5 mg/0.5 3-21 mg under ity o f mL 00:00: the [facility] 00 weekly. Medic al s injection Branch oxybutynin 2022-0 Yes [id number] 5mg Take 1 U nivers XL 5 mg 24 3-21 tablet by ity of hr tablet 00:00: [place] the Medical morning. Branch tirzepatide 2022-0 Yes [id number] 2.5mg inject 2.5 Univers 2.5 mg/0.5 3-21 mg under ity o f mL 00:00: the [facility] 00 weekly. Medic al s injection Branch oxybutynin 2022-0 Yes [id number] 5mg Take 1 U nivers XL 5 mg 24 3-21 tablet by ity of hr tablet 00:00: [place] the Medical morning. Branch tirzepatide 2022-0 Yes [id number] 2.5mg inject 2.5 Univers 2.5 mg/0.5 3-21 mg under ity o f mL 00:00: the [facility] 00 weekly. Medic al s injection Branch oxybutynin 2022-0 Yes [id number] 5mg Take 1 U nivers XL 5 mg 24 3-21 tablet by ity of hr tablet 00:00: [place] the Medical morning. Branch tirzepatide 2022-0 Yes [id number] 2.5mg inject 2.5 Univers 2.5 mg/0.5 3-21 mg under ity o f mL 00:00: the [facility] 00 weekly. Medic al s injection Branch tirzepatide 2022-0 Yes [id number] 2.5mg inject 2.5 Univers 2.5 mg/0.5 3-21 mg under ity o f mL 00:00: the [facility] 00 weekly. Medic al s injection Branch tirzepatide 2022-0 Yes [id number] 2.5mg inject 2.5 Univers 2.5 mg/0.5 3-21 mg under ity o f mL 00:00: the [facility] 00 weekly. Medic al s injection Branch oxybutynin 2022-2022- No [id number] 5mg Take 1 [facility] XL 5 mg 24 3-21 04-26 tablet by ity of hr tablet 00:00: 00:00 mouth [place] 00 :00 the Medical morning. Branch oxybutynin 2022-0 3- No [id number] 5mg Take 1 [facility] XL 5 mg 24 3-21 - tablet by ity of hr tablet 00:00: 00:00 mouth [place] 00 :00 the Medical morning. Branch ROSUVASTATI 2022-0 Yes [id number] 20mg TAKE 1 Univers N 20 mg 3-16 TABLET BY ity of tablet 00:00: MOUTH AT [place] BEDTIME Medical Branch METOPROLOL 0 Yes [id number] 100mg TAKE 1 Univers SUCCINATE 3-16 TABLET BY ity o f XL 100 mg 00:00: MOUTH [place] 24 hr 00 DAILY Medical tablet Branch ROSUVASTATI Yes [id number] 20mg TAKE 1 [facility] N 20 mg 3-16 TABLET BY ity of tablet 00:00: [facility]TH AT [place] [facility] METOPROLOL Yes [id number] 100mg TAKE 1 Univers SUCCINATE 3-16 TABLET BY ity o f XL 100 mg 00:00: MOUTH [place] 24 hr DAILY Medical tablet Branch ROSUVASTATI 0 Yes [id number] 20mg TAKE 1 Univers N 20 mg 3-16 TABLET BY ity of tablet 00:00: MOUTH AT [place] [facility] METOPROLOL Yes [id number] 100mg TAKE 1 Univers SUCCINATE 3-16 TABLET BY ity o f XL 100 mg 00:00: MOUTH [place] 24 hr DAILY Medical tablet Branch ROSUVASTATI 0 Yes [id number] 20mg TAKE 1 [facility] N 20 mg 3-16 TABLET BY ity of tablet 00:00: MOUTH AT [place] BEDTIME Medical Branch METOPROLOL 0 Yes [id number] 100mg TAKE 1 Univers SUCCINATE 3-16 TABLET BY ity o f XL 100 mg 00:00: MOUTH [place] 24 hr DAILY Medical tablet Branch ROSUVASTATI 2022-0 Yes [id number] 20mg TAKE 1 Univers N 20 mg 3-16 TABLET BY ity of tablet 00:00: MOUTH AT [place] [facility] METOPROLOL 0 Yes [id number] 100mg TAKE 1 Univers SUCCINATE 3-16 TABLET BY ity o f XL 100 mg 00:00: MOUTH [place] 24 hr 00 DAILY Medical tablet Branch ROSUVASTATI 2022-0 Yes [id number] 20mg TAKE 1 Univers N 20 mg 3-16 TABLET BY ity of tablet 00:00: MOUTH AT [place] [facility] Medical Branch METOPROLOL 2022- Yes [id number] 100mg TAKE 1 Univers SUCCINATE 3-16 TABLET BY ity o f XL 100 mg 00:00: MOUTH [place] 24 DAILY Medical tablet Branch ROSUVASTATI 2022-0 Yes [id number] 20mg TAKE 1 Univers N 20 mg 3-16 TABLET BY ity of tablet 00:00: MOUTH AT [place] [facility] METOPROLOL 2022-0 Yes [id number] 100mg TAKE 1 Univers SUCCINATE 3-16 TABLET BY ity o f XL 100 mg 00:00: MOUTH [place] 24 hr DAILY Medical tablet Branch ROSUVASTATI 2022-0 Yes [id number] 20mg TAKE 1 Univers N 20 mg 3-16 TABLET BY ity of tablet 00:00: MOUTH AT [place] [facility] Medical Branch METOPROLOL Yes [id number] 100mg TAKE 1 Univers SUCCINATE 3-16 TABLET BY ity o f XL 100 mg 00:00: MOUTH [place] 24 DAILY Medical tablet Branch ROSUVASTATI 2022-0 Yes [id number] 20mg TAKE 1 Univers N 20 mg 3-16 TABLET BY ity of tablet 00:00: MOUTH AT [place] [facility] Medical Branch METOPROLOL 2022- Yes [id number] 100mg TAKE 1 Univers SUCCINATE 3-16 TABLET BY ity o f XL 100 mg 00:00: MOUTH [place] 24 DAILY Medical tablet Branch ROSUVASTATI 2022-0 Yes [id number] 20mg TAKE 1 Univers N 20 mg 3-16 TABLET BY ity of tablet 00:00: MOUTH AT [place] [facility] Medical Branch METOPROLOL 2022-0 Yes [id number] 100mg TAKE 1 Univers SUCCINATE 3-16 TABLET BY ity o f XL 100 mg 00:00: MOUTH [place] 24 DAILY Medical tablet Branch ROSUVASTATI 2022-0 Yes [id number] 20mg TAKE 1 Univers N 20 mg 3-16 TABLET BY ity of tablet 00:00: MOUTH AT [place] [facility] Medical Branch METOPROLOL 2022-0 Yes [id number] 100mg TAKE 1 Univers SUCCINATE 3-16 TABLET BY ity o f XL 100 mg 00:00: MOUTH [place] 24 DAILY Medical tablet Branch ROSUVASTATI 2022-0 Yes [id number] 20mg TAKE 1 Univers N 20 mg 3-16 TABLET BY ity of tablet 00:00: MOUTH AT [place] [address] [facility] METOPROLOL 2022-0 Yes [id number] 100mg TAKE 1 Univers SUCCINATE 3-16 TABLET BY ity o f XL 100 mg 00:00: MOUTH [place] 24 DAILY Medical tablet Branch ROSUVASTATI 2022-0 Yes [id number] 20mg TAKE 1 Univers N 20 mg 3-16 TABLET BY ity of tablet 00:00: MOUTH AT [place] [facility] METOPROLOL 2022-0 Yes [id number] 100mg TAKE 1 Univers SUCCINATE 3-16 TABLET BY ity o f XL 100 mg 00:00: MOUTH [place] 24 hr DAILY Medical tablet Branch ROSUVASTATI 2022-0 Yes [id number] 20mg TAKE 1 Univers N 20 mg 3-16 TABLET BY ity of tablet 00:00: MOUTH AT [place] [facility] Branch METOPROLOL 2022-0 Yes [id number] 100mg TAKE 1 Univers SUCCINATE 3-16 TABLET BY ity o f XL 100 mg 00:00: MOUTH [place] 24 DAILY Medical tablet Branch ROSUVASTATI 2022-0 Yes [id number] 20mg TAKE 1 Univers N 20 mg 3-16 TABLET BY ity of tablet 00:00: MOUTH AT [place] [facility] Medical Branch METOPROLOL 2022-0 Yes [id number] 100mg TAKE 1 Univers SUCCINATE 3-16 TABLET BY ity o f XL 100 mg 00:00: MOUTH [place] 24 DAILY Medical tablet Branch FELODIPINE 2022-0 Yes [id number] 5mg TAKE 1 U nivers 5 mg 24 hr 3-15 TABLET BY ity of tablet 00:00: MOUTH AT [address] Medical Branch FELODIPINE 2022-0 Yes [id number] 5mg TAKE 1 U nivers 5 mg 24 hr 3-15 TABLET BY ity of tablet 00:00: MOUTH AT [address] Medical Branch FELODIPINE 3-0 Yes [id number] 5mg TAKE 1 U nivers 5 mg 24 hr 3-15 TABLET BY ity of tablet 00:00: MOUTH AT [address] Medical Branch FELODIPINE 3-0 Yes [id number] 5mg TAKE 1 U nivers 5 mg 24 hr 3-15 TABLET BY ity of tablet 00:00: MOUTH AT [address] Medical Branch FELODIPINE 3-0 Yes [id number] 5mg TAKE 1 U nivers 5 mg 24 hr 3-15 TABLET BY ity of tablet 00:00: MOUTH AT [place] [facility] FELODIPINE 2023-0 Yes [id number] 5mg TAKE 1 U nivers 5 mg 24 hr 3-15 TABLET BY ity of tablet 00:00: MOUTH AT [place] [facility] Branch FELODIPINE 3-0 Yes [id number] 5mg TAKE 1 U nivers 5 mg 24 hr 3-15 TABLET BY ity of tablet 00:00: MOUTH AT [place] [facility] Branch FELODIPINE 2023-0 Yes [id number] 5mg TAKE 1 U nivers 5 mg 24 hr 3-15 TABLET BY ity of tablet 00:00: MOUTH AT [place] [facility] FELODIPINE 3-0 Yes [id number] 5mg TAKE 1 U nivers 5 mg 24 hr 3-15 TABLET BY ity of tablet 00:00: MOUTH AT [place] [facility] FELODIPINE 3-0 Yes [id number] 5mg TAKE 1 U nivers 5 mg 24 hr 3-15 TABLET BY ity of tablet 00:00: MOUTH AT [place] [facility] FELODIPINE 3-0 Yes [id number] 5mg TAKE 1 U nivers 5 mg 24 hr 3-15 TABLET BY ity of tablet 00:00: MOUTH AT [place] [facility] FELODIPINE 3-0 Yes [id number] 5mg TAKE 1 U nivers 5 mg 24 hr 3-15 TABLET BY ity of tablet 00:00: MOUTH AT [place] [facility] FELODIPINE 3-0 Yes [id number] 5mg TAKE 1 U nivers 5 mg 24 hr 3-15 TABLET BY ity of tablet 00:00: MOUTH AT [place] [facility] FELODIPINE 2023-0 Yes [id number] 5mg TAKE 1 U nivers 5 mg 24 hr 3-15 TABLET BY ity of tablet 00:00: MOUTH AT [place] [facility] FELODIPINE 2023-0 Yes [id number] 5mg TAKE 1 U nivers 5 mg 24 hr 3-15 TABLET BY ity of tablet 00:00: MOUTH AT [address] FELODIPINE 2023-0 Yes [id number] 5mg TAKE 1 U nivers 5 mg 24 hr 3-15 TABLET BY ity of tablet 00:00: MOUTH AT [address] levothyroxi 2023-0 Yes [id number] TAKE 1 Univers ne 2-14 TABLET BY ity of (SYNTHROID) 00:00: MOUTH [place] 88 mcg 00 EVERY Medical tablet MORNING Branch levothyroxi 2022-0 Yes [id number] TAKE 1 Univers ne 2-14 TABLET BY ity of (SYNTHROID) 00:00: MOUTH [place] 88 mcg 00 EVERY Medical tablet MORNING Branch levothyroxi 2022-0 Yes [id number] TAKE 1 Univers ne 2-14 TABLET BY ity of (SYNTHROID) 00:00: MOUTH [place] 88 mcg 00 EVERY Medical tablet MORNING Branch levothyroxi 2022-0 Yes [id number] TAKE 1 Univers ne 2-14 TABLET BY ity of (SYNTHROID) 00:00: MOUTH [place] 88 mcg 00 EVERY Medical tablet MORNING Branch levothyroxi 2022-0 Yes [id number] TAKE 1 Univers ne 2-14 TABLET BY ity of (SYNTHROID) 00:00: MOUTH [place] 88 mcg 00 EVERY Medical tablet MORNING Branch levothyroxi 2022-0 Yes [id number] TAKE 1 Univers ne 2-14 TABLET BY ity of (SYNTHROID) 00:00: MOUTH [place] 88 mcg 00 EVERY Medical tablet MORNING Branch levothyroxi 2022-0 Yes [id number] TAKE 1 Univers ne 2-14 TABLET BY ity of (SYNTHROID) 00:00: MOUTH [place] 88 mcg 00 EVERY Medical tablet MORNING Branch levothyroxi 2022-0 Yes [id number] TAKE 1 Univers ne 2-14 TABLET BY ity of (SYNTHROID) 00:00: MOUTH [place] 88 mcg 00 EVERY Medical tablet MORNING Branch levothyroxi 2022-0 Yes [id number] TAKE 1 Univers ne 2-14 TABLET BY ity of (SYNTHROID) 00:00: MOUTH [place] 88 mcg 00 EVERY Medical tablet MORNING Branch levothyroxi 2022-0 Yes [id number] TAKE 1 Univers ne 2-14 TABLET BY ity of (SYNTHROID) 00:00: MOUTH [place] 88 mcg 00 EVERY Medical tablet MORNING Branch levothyroxi 2022-0 Yes [id number] TAKE 1 Univers ne 2-14 TABLET BY ity of (SYNTHROID) 00:00: MOUTH [place] 88 mcg 00 EVERY Medical tablet MORNING Branch levothyroxi 2022-0 Yes [id number] TAKE 1 Univers ne 2-14 TABLET BY ity of (SYNTHROID) 00:00: MOUTH [place] 88 mcg 00 EVERY Medical tablet MORNING Branch levothyroxi 2022-0 Yes [id number] TAKE 1 Univers ne 2-14 TABLET BY ity of (SYNTHROID) 00:00: MOUTH [place] 88 mcg 00 EVERY Medical tablet MORNING Branch levothyroxi 2022-0 Yes [id number] TAKE 1 Univers ne 2-14 TABLET BY ity of (SYNTHROID) 00:00: MOUTH [place] 88 mcg 00 EVERY Medical tablet MORNING Branch levothyroxi 2022-0 Yes [id number] TAKE 1 Univers ne 2-14 TABLET BY ity of (SYNTHROID) 00:00: MOUTH [place] 88 mcg 00 EVERY Medical tablet MORNING Branch levothyroxi 2022-0 Yes [id number] TAKE 1 Univers ne 2-14 TABLET BY ity of (SYNTHROID) 00:00: MOUTH [place] 88 mcg 00 EVERY Medical tablet MORNING Branch levothyroxi 2022-0 Yes [id number] TAKE 1 Univers ne 2-14 TABLET BY ity of (SYNTHROID) 00:00: MOUTH [place] 88 mcg 00 EVERY Medical tablet MORNING Branch levothyroxi 2022-0 Yes [id number] TAKE 1 Univers ne 2-14 TABLET BY ity of (SYNTHROID) 00:00: MOUTH [place] 88 mcg 00 EVERY Medical tablet MORNING Branch levothyroxi 2022-0 Yes [id number] TAKE 1 Univers ne 2-14 TABLET BY ity of (SYNTHROID) 00:00: MOUTH [place] 88 mcg 00 EVERY Medical tablet MORNING Branch levothyroxi 2022-0 Yes [id number] TAKE 1 Univers ne 2-14 TABLET BY ity of (SYNTHROID) 00:00: MOUTH [place] 88 mcg 00 EVERY Medical tablet MORNING Branch levothyroxi 2022-0 Yes [id number] TAKE 1 Univers ne 2-14 TABLET BY ity of (SYNTHROID) 00:00: MOUTH [place] 88 mcg 00 EVERY Medical tablet MORNING Branch levothyroxi 2022-0 Yes [id number] TAKE 1 Univers ne 2-14 TABLET BY ity of (SYNTHROID) 00:00: MOUTH [place] 88 mcg 00 EVERY Medical tablet MORNING Branch levothyroxi 2022-0 Yes [id number] TAKE 1 Univers ne 2-14 TABLET BY ity of (SYNTHROID) 00:00: MOUTH [place] 88 mcg 00 EVERY Medical tablet MORNING Branch SERTraline 2022-0 3- No 50mg Take 50 mg Univers 50 mg 11-12 by mouth. ity of tablet 11:35: 00:00 [place] 54 :00 Medical Branch SERTraline 2023-0 2023- No 50mg Take 50 mg Univers 50 mg 11-12 by mouth. ity of tablet 11:35: 00:00 [place] 54 :00 Medical Branch SERTraline 2023-0 2023- No 50mg Take 50 mg Univers 50 mg 11-12 by mouth. ity of tablet 11:35: 00:00 [place] 54 :00 Medical Branch SERTraline 2023-0 2023- No 50mg Take 50 mg Univers 50 mg 11-12 by mouth. ity of tablet 11:35: 00:00 [place] 54 :00 Medical Branch OLANZapine 2023-0 2023- No 15mg Take 15 mg Univers 15 mg 11-12 by mouth. ity of tablet 11:35: 00:00 [place] 51 :00 Medical Branch OLANZapine 2023-0 2023- No 15mg Take 15 mg Univers 15 mg 11-12 by mouth. ity of tablet 11:35: 00:00 [place] 51 :00 Medical Branch OLANZapine 2023-0 2023- No 15mg Take 15 mg Univers 15 mg 11-12 by mouth. ity of tablet 11:35: 00:00 [place] 51 :00 Medical Branch OLANZapine 2023-0 2023- No 15mg Take 15 mg Univers 15 mg 11-12 by mouth. ity of tablet 11:35: 00:00 [place] 51 :00 Medical Branch Nitrofurant 2023-0 2023- No [id number] 100mg Take 1 Univers oin&Nit. 2-02 02-10 capsule by ity of [place] 00:00: 05:59 mouth in [place] (MACROBID) 00 :00 the Medical 100 mg morning Branch capsule and 1 capsule in the evening. Do all this for 7 days. Nitrofurant 2023-0 2023- No [id number] 100mg Take 1 Univers oin&Nit. 2-02 02-10 capsule by ity of [place] 00:00: 05:59 mouth in [place] ([place]CROBID) 00 :00 the Medical 100 mg morning Branch capsule and 1 capsule in the evening. Do all this for 7 days. Nitrofurant 2023-0 2023- No [id number] 100mg Take 1 Univers oin&Nit. 2-02 02-10 capsule by ity of [place] 00:00: 05:59 mouth [place] (MACROBID) 00 :00 the Medical 100 mg morning Branch capsule and 1 capsule in the evening. Do all this for 7 days. Nitrofurant 0 2023- No [id number] 100mg Take 1 Univers oin&Nit. 11-12 capsule by ity of [place] 00:00: 05:59 mouth [place] (MACROBID) 00 :00 the Medical 100 mg morning Branch capsule and 1 capsule in the evening. Do all this for 7 days. felodipine 2021-10 Yes [id number] 5mg TAKE 1 U nivers 5 mg 24 hr 2-15 TABLET BY ity of tablet 00:00: [address] Branch SYNTHROID 2021-10 Yes [id number] TAKE 1 U nivers 75 mcg 2-15 TABLET BY ity of tablet 00:00: MOUTH [place] [facility] Medical MORNING Branch felodipine 2021-10 Yes [id number] 5mg TAKE 1 U nivers 5 mg 24 hr 2-15 TABLET BY ity of tablet 00:00: [address]OUTH [address] Branch SYNTHROID 2021-10 Yes [id number] TAKE 1 U nivers 75 mcg 2-15 TABLET BY ity of tablet 00:00: MOUTH [place] [address] EVERY Medical MORNING Branch felodipine 2021-10 Yes [id number] 5mg TAKE 1 U nivers 5 mg 24 hr 2-15 TABLET BY ity of tablet 00:00: [facility] [address] Branch SYNTHROID 2021-10 Yes [id number] TAKE 1 U nivers 75 mcg 2-15 TABLET BY ity of tablet 00:00: MOUTH [address] Medical MORNING Branch felodipine 2021-10 Yes [id number] 5mg TAKE 1 U nivers 5 mg 24 hr 2-15 TABLET BY ity of tablet 00:00: [address] Branch SYNTHROID 2021-10 Yes [id number] TAKE 1 U nivers 75 mcg 2-15 TABLET BY ity of tablet 00:00: MOUTH [address] Medical MORNING Branch felodipine 2021-10 Yes [id number] 5mg TAKE 1 U nivers 5 mg 24 hr 2-15 TABLET BY ity of tablet 00:00: [facility] [address] Branch SYNTHROID 2021-10 Yes [id number] TAKE 1 U nivers 75 mcg 2-15 TABLET BY ity of tablet 00:00: MOUTH [place] EVERY Medical MORNING Branch felodipine 2021-10 Yes [id number] 5mg TAKE 1 U nivers 5 mg 24 hr 2-15 TABLET BY ity of tablet 00:00: MOUTH AT [place] BEDTIME Medical Branch SYNTHROID 2021-10 Yes [id number] TAKE 1 U nivers 75 mcg 2-15 TABLET BY ity of tablet 00:00: MOUTH [place] EVERY Medical MORNING Branch felodipine 2021-10 Yes [id number] 5mg TAKE 1 U nivers 5 mg 24 hr 2-15 TABLET BY ity of tablet 00:00: MOUTH AT [place] BEDTIME Medical Branch SYNTHROID 2021-10 Yes [id number] TAKE 1 U nivers 75 mcg 2-15 TABLET BY ity of tablet 00:00: MOUTH [place] EVERY Medical MORNING Branch felodipine 2021-10 Yes [id number] 5mg TAKE 1 U nivers 5 mg 24 hr 2-15 TABLET BY ity of tablet 00:00: MOUTH AT [place] [address] BEDTIME Medical Branch SYNTHROID 2021-10 Yes [id number] TAKE 1 U nivers 75 mcg 2-15 TABLET BY ity of tablet 00:00: MOUTH [place] EVERY Medical MORNING Branch felodipine 2021-10 Yes [id number] 5mg TAKE 1 U nivers 5 mg 24 hr 2-15 TABLET BY ity of tablet 00:00: MOUTH AT [place] [address] BEDTIME Medical Branch SYNTHROID 2021-10 Yes [id number] TAKE 1 U nivers 75 mcg 2-15 TABLET BY ity of tablet 00:00: MOUTH [address] Medical MORNING Branch felodipine 2021- Yes [id number] 5mg TAKE 1 U nivers 5 mg 24 hr 2-15 TABLET BY ity of tablet 00:00: MOUTH AT [place] [address] BEDTIME Medical Branch felodipine 2021-10 Yes [id number] 5mg TAKE 1 U nivers 5 mg 24 hr 2-15 TABLET BY ity of tablet 00:00: MOUTH AT [place] [address] BEDTIME Medical Branch felodipine 2021-10 Yes [id number] 5mg TAKE 1 U nivers 5 mg 24 hr 2-15 TABLET BY ity of tablet 00:00: MOUTH AT [place] [address] BEDTIME Medical Branch felodipine 2021-10 Yes [id number] 5mg TAKE 1 U nivers 5 mg 24 hr 2-15 TABLET BY ity of tablet 00:00: MOUTH AT [place] [facility] felodipine 2021-10 Yes [id number] 5mg TAKE 1 U nivers 5 mg 24 hr 2-15 TABLET BY ity of tablet 00:00: MOUTH AT [place] [facility] Branch felodipine 2021-10 Yes [id number] 5mg TAKE 1 U nivers 5 mg 24 hr 2-15 TABLET BY ity of tablet 00:00: MOUTH AT [place] [facility] Branch felodipine 2021-10 Yes [id number] 5mg TAKE 1 U nivers 5 mg 24 hr 2-15 TABLET BY ity of tablet 00:00: MOUTH AT [place] [facility] Branch felodipine 2021-10 Yes [id number] 5mg TAKE 1 U nivers 5 mg 24 hr 2-15 TABLET BY ity of tablet 00:00: MOUTH AT [place] [facility] Branch felodipine 2021-10 Yes [id number] 5mg TAKE 1 U nivers 5 mg 24 hr 2-15 TABLET BY ity of tablet 00:00: MOUTH AT [place] [facility] felodipine 2021-10 Yes [id number] 5mg TAKE 1 U nivers 5 mg 24 hr 2-15 TABLET BY ity of tablet 00:00: MOUTH AT [place] [facility] felodipine 2021-10 Yes [id number] 5mg TAKE 1 U nivers 5 mg 24 hr 2-15 TABLET BY ity of tablet 00:00: MOUTH AT [place] [facility] felodipine 2021-10 Yes [id number] 5mg TAKE 1 U nivers 5 mg 24 hr 2-15 TABLET BY ity of tablet 00:00: MOUTH AT [address] Branch felodipine 2021-10 Yes [id number] 5mg TAKE 1 U nivers 5 mg 24 hr 2-15 TABLET BY ity of tablet 00:00: MOUTH AT [address] Branch felodipine 2021-10- No [id number] 5mg TAKE 1 Univers 5 mg 24 hr 2-15 03-15 TABLET BY ity of tablet 00:00: 00:00 MOUTH AT [place] 00 :00 [facility] Branch felodipine 2021-2022- No [id number] 5mg TAKE 1 Univers 5 mg 24 hr 2-15 03-15 TABLET BY ity of tablet 00:00: 00:00 MOUTH AT [place] 00 :00 BEDTIME Medical Branch SYNTHROID 2021-10- No [id number] TAKE 1 Univers 75 mcg 2-15 02-02 TABLET BY ity of tablet 00:00: 00:00 MOUTH [place] 00 :00 EVERY Medical MORNING Branch SYNTHROID 2021-10- No [id number] TAKE 1 Univers 75 mcg 2-15 02-02 TABLET BY ity of tablet 00:00: 00:00 MOUTH [place] 00 :00 EVERY Medical MORNING Branch SYNTHROID 2021-10- No [id number] TAKE 1 Univers 75 mcg 2-15 02-02 TABLET BY ity of tablet 00:00: 00:00 MOUTH [place] 00 :00 EVERY Medical MORNING Branch SYNTHROID 2021-10- No [id number] TAKE 1 Univers 75 mcg 2-15 02-02 TABLET BY ity of tablet 00:00: 00:00 MOUTH [place] 00 :00 EVERY Medical MORNING Branch methylPREDN 2021-10- No [id number] 4mg Take 1 [facility] ISolone 2-15 12-16 tablet (4 Health (Medrol 00:00: 05:59 mg total) Dospak) 4 00 :00 by mouth 1 MG tablets (one) time for 1 dose. Use as directed by package instructio ns Enoxaparin 2021-10 Yes [id number] 40mg QD Inject 0.4 UT Sodium 1-22 9107 mL (40 mg Health (Lovenox) 00:00: total) as 40 MG/0.4ML 00 directed 1 solution (one) time prefilled each day. syringe Enoxaparin 2021-10 Yes [id number] 40mg QD Inject 0.4 UT Sodium 1-22 9107 mL (40 mg Health (Lovenox) 00:00: total) as 40 MG/0.4ML 00 directed 1 solution (one) time prefilled each day. syringe Enoxaparin 2021-10 Yes [id number] 40mg QD Inject 0.4 [facility] Sodium 1-22 9107 mL (40 mg Health (Lovenox) 00:00: total) as 40 MG/0.4ML 00 directed 1 solution (one) time prefilled each day. syringe Enoxaparin 2021-10 Yes [id number] 40mg QD Inject 0.4 [place] Sodium 1-22 9107 mL (40 mg Health (Lovenox) 00:00: total) as 40 MG/0.4ML 00 directed 1 solution (one) time prefilled each day. syringe Enoxaparin 2021-10 Yes [id number] 40mg QD Inject 0.4 [place] Sodium 1-22 9107 mL (40 mg Health (Lovenox) 00:00: total) as 40 MG/0.4ML 00 directed 1 solution (one) time prefilled each day. syringe Enoxaparin 2021-10 Yes [id number] 40mg QD Inject 0.4 [facility] Sodium 1-22 9107 mL (40 mg Health (Lovenox) 00:00: total) as 40 MG/0.4ML 00 directed 1 solution (one) time prefilled each day. syringe Enoxaparin 2021-10 Yes [id number] 40mg QD Inject 0.4 [place] Sodium 1-22 [...] mg 14:00: Toprol XL) He rmann oral May split tablet, tab, but extended do not release crush. omeprazole 2021-10 No 20 mg, 1 Mem oria 0-05 cap, l 14:00: Route: PO, Ede 00 Drug form: DRC, Daily, Dosing Weight 101.818, kg, Start date: 07/15/22 9:00:00 CDT, Duration: 30 day, Stop date: 08/13/22 9:00:00 CDT Protonix 2021-10 No Notes: [place] 0-05 Tablet l 14:00: should not be chewed or crushed. (Same as: Protonix) amLODIPine 2021-10 No Notes: Memor ia 0-05 (Same as: l 14:00: Norvasc) Synthroid 2021-10 No 75 Memoria 0-05 microgram, l 11:30: 1 tab, Route: PO, Drug form: TAB, Daily, Dosing Weight 101.818, kg, Start date: 07/15/22 6:30:00 CDT, Duration: 30 day, Stop date: 08/13/22 6:30:00 CDT, 0 rosuvastati 2021-10 No Notes: Stefan adalberto n 0-05 Same as l 02:00: Crestor vancomycin 2021-10 No 2000 mg: Me moria (SCIP) + 0-05 infuse l Sodium 01:00: over 2.5 [place] Chloride 00 hours For 0.9% IV 250 [...] Memoria 0-04 (Same as: l 17:00: Zofran) Ede 00 MEDICATION WASTE Product Size: 4 mg Product Wasted: ___ mg Roxicodone 2021-10 No Notes: Memor ia 0-04 (Same as: l 16:46: Roxicodone Ede ) Tylenol 2021-10 No Notes: Do Memor ia 0-04 not exceed l 16:46: 4 gm/day. Ede 00 (Same as: Tylenol) ANES 2021-10 No 1,000 mg, Memoria acetaminoph 0-04 Route: PO, l en 16:02: Drug form: Ede 00 TAB, ONCE, Dosing Weight 101.818, kg, PRN Pain Score 1-3, Start date: 07/14/22 11:02:00 CDT ANES 2021-10 No 25 Memoria fentaNYL 0-04 microgram, l 16:02: Route: [place] 00 IVP, Q5Min, Dosing Weight 101.818, kg, [...] 08/13/22 10:36:00 CDT, BSA: 2.18 m2, 0 [place] 2021-10 No Notes: Do Memoria 10/325 oral 0-04 not exceed l tablet 15:37: 4gm/day of Carole nn 00 acetaminop hen. (Same as: [place] 325/10) Percocet 2021-10 No 1 tab, Memoria [...] Chloride 00 n) 0.9% IV 100 mL [place] 5/325 2021-10 No Notes: Stefan adalberto oral tablet 0-04 (Same as: l 15:37: [place] Ede 00 325/5) Do not exceed 4gm/day [...] (ANES) 0-04 Drug form: l 13:26: SOLN, 00 ONCE, Stop date: 07/14/22 8:26:00 CDT [...] 90 Memoria 0-04 mL/min), l 12:00: Start Ede date: 07/14/22 7:00:00 CDT, Duration: 30 day, Stop date: 08/13/22 6:59:00 CDT, 0 gabapentin 2021-10 No 300 mg, Stefan adalberto 0-04 Route: PO, l 12:00: Drug form: CAP ONCALL, Dosing Weight 101.818, kg, Start date: [...] 0-04 Route: PO, l 12:00: Drug form: TAB, ONCALL, Dosing Weight 101.818, kg, Start date: 07/14/22 7:00:00 CDT, Duration: 30 day, Stop date: 08/13/22 6:59:00 CDT, 0 ceFAZolin + 2021-10 No Notes: Stefan adalberto sterile 0-04 (Same As: l water 20 mL 12:00: Ancef, Herm oma 00 Kefzol) MEDICATION WASTE Product Size: 1000 mg [...] Yes 0 Memoria 0-04 Refill(s) l 11:18: [place] 00 Zofran 2021-10 Yes 0 Memoria 0-04 Refill(s) l 11:18: ANAIS 2021-10 No Notes: Memoria Pericapsula 0-03 NOT FOR IV l r INJ 16:47: use Ropivacain e 5 mg/mL (49.25 mL) Epinephrin e 1 mg/mL (0.5 mL) Clonidine 0.1 mg/mL (0.8 mL) Ketorolac 30 mg/mL (1 mL) Normal Saline 48.45 mL oxyCODONE-a 2021-10 Yes [id number] 1{tbl} Take 1 UT cetaminophe 0-03 9108 tablet by [facility] n 00:00: mouth (Percocet) 00 every 4 10-325 MG (four) tablet hours if needed (pain) for up to 60 doses. oxyCODONE-a 2021-10 Yes [id number] 1{tbl} Take 1 UT cetaminophe 0-03 9108 tablet by a [facility] n 00:00: mouth (Percocet) 00 every 4 10-325 MG (four) tablet hours if needed (pain) for up to 60 doses. oxyCODONE-a 2021-10 Yes [id number] 1{tbl} Take 1 UT cetaminophe 0-03 9108 tablet by a [facility] n 00:00: mouth (Percocet) 00 every 4 10-325 MG (four) tablet hours if needed (pain) for up to 60 doses. oxyCODONE-a 2021-10 Yes [id number] 1{tbl} Take 1 UT cetaminophe 0-03 9108 tablet by a [facility] n 00:00: mouth (Percocet) 00 every 4 10-325 MG (four) tablet hours if needed (pain) for up to 60 doses. oxyCODONE-a 2021-10 Yes [id number] 1{tbl} Take 1 UT cetaminophe 0-03 9108 tablet by [facility] n 00:00: mouth (Percocet) 00 every 4 10-325 MG (four) tablet hours if needed (pain) for up to 60 doses. oxyCODONE-a 2021-10 Yes [id number] 1{tbl} Take 1 UT cetaminophe 0-03 9108 tablet by a [facility] n 00:00: mouth (Percocet) 00 every 4 10-325 MG (four) tablet hours if needed (pain) for up to 60 doses. oxyCODONE-a 2021-10 Yes [id number] 1{tbl} Take 1 UT cetaminophe 0-03 9108 tablet by a [facility] n 00:00: mouth (Percocet) 00 every 4 10-325 MG (four) tablet hours if needed (pain) for up to 60 doses. oxyCODONE-a 2021-10 Yes [id number] 1{tbl} Take 1 UT cetaminophe 0-03 9108 tablet by a [facility] n 00:00: mouth (Percocet) 00 every 4 10-325 MG (four) tablet hours if needed (pain) for up to 60 doses. oxyCODONE-a 2021-10 Yes [id number] 1{tbl} Take 1 UT cetaminophe 0-03 9108 tablet by [facility] n 00:00: mouth (Percocet) 00 every 4 10-325 MG (four) tablet hours if needed (pain) for up to 60 doses. oxyCODONE-a 2021-10 Yes [id number] 1{tbl} Take 1 UT cetaminophe 0-03 9108 tablet by [facility] n 00:00: mouth (Percocet) 00 every 4 10-325 MG (four) tablet hours if needed (pain) for up to 60 doses. oxyCODONE-a Yes [id number] 1{tbl} Take 1 UT cetaminophe 9-27 9108 tablet by [facility] n 00:00: mouth (Percocet) 00 every 4 10-325 MG (four) tablet hours if needed (pain) for up to 60 doses. naloxone 2022- No [id number] 4mg Administer UT (Narcan) 4 07-07 9108 1 spray (4 He alth mg/0.1 mL 00:00: 04:59 mg total) nasal spray 00 :00 into affected nostril(s) if needed for opioid reversal. May repeat every 2-3 minutes if needed, alternatin g nostrils, until medical assistance becomes available. naloxone 2022- No [id number] 4mg Administer UT (Narcan) 4 07-07 9108 1 spray (4 He alth mg/0.1 mL 00:00: 04:59 mg total) nasal spray 00 :00 into affected nostril(s) if needed for opioid reversal. May repeat every 2-3 minutes if needed, alternatin g nostrils, until medical assistance becomes available. naloxone 2022- No [id number] 4mg Administer UT (Narcan) 4 07-07 9108 1 spray (4 He alth mg/0.1 mL 00:00: 04:59 mg total) nasal spray 00 :00 into affected nostril(s) if needed for opioid reversal. May repeat every 2-3 minutes if needed, alternatin g nostrils, until medical assistance becomes available. naloxone 2022- No [id number] 4mg Administer UT (Narcan) 4 07-07 9108 1 spray (4 He alth mg/0.1 mL 00:00: 04:59 mg total) nasal spray 00 :00 into affected nostril(s) if needed for opioid reversal. May repeat every 2-3 minutes if needed, alternatin g nostrils, until medical assistance becomes available. naloxone 2022- No [id number] 4mg Administer UT (Narcan) 4 07-07 9108 1 spray (4 He alth mg/0.1 mL 00:00: 04:59 mg total) nasal spray 00 :00 into affected nostril(s) if needed for opioid reversal. May repeat every 2-3 minutes if needed, alternatin g nostrils, until medical assistance becomes available. naloxone 2022- No [id number] 4mg Administer UT (Narcan) 4 07-07 9108 1 spray (4 He alth mg/0.1 mL 00:00: 04:59 mg total) nasal spray 00 :00 into affected nostril(s) if needed for opioid reversal. May repeat every 2-3 minutes if needed, alternatin g nostrils, until medical assistance becomes available. naloxone 2022- No [id number] 4mg Administer UT (Narcan) 4 07-07 9108 1 spray (4 He alth mg/0.1 mL 00:00: 04:59 mg total) nasal spray 00 :00 into affected nostril(s) if needed for opioid reversal. May repeat every 2-3 minutes if needed, alternatin g nostrils, until medical assistance becomes available. naloxone 3- No [id number] 4mg Administer UT (Narcan) 4 07-07 9108 1 spray (4 He alth mg/0.1 mL 00:00: 04:59 mg total) nasal spray 00 :00 into affected nostril(s) if needed for opioid reversal. May repeat every 2-3 minutes if needed, alternatin g nostrils, until medical assistance becomes available. naloxone 2022- No [id number] 4mg Administer UT (Narcan) 4 07-07 9108 1 spray (4 He alth mg/0.1 mL 00:00: 04:59 mg total) nasal spray 00 :00 into affected nostril(s) if needed for opioid reversal. May repeat every 2-3 minutes if needed, alternatin g nostrils, until medical assistance becomes available. naloxone 2022- No [id number] 4mg Administer UT (Narcan) 4 07-07 9108 1 spray (4 He alth mg/0.1 mL 00:00: 04:59 mg total) nasal spray 00 :00 into affected nostril(s) if needed for opioid reversal. May repeat every 2-3 minutes if needed, alternatin g nostrils, until medical assistance becomes available. naloxone 2022- No [id number] 4mg Administer UT (Narcan) 4 07-07 9108 1 spray (4 He alth mg/0.1 mL 00:00: 04:59 mg total) nasal spray 00 :00 into affected nostril(s) if needed for opioid reversal. May repeat every 2-3 minutes if needed, alternatin g nostrils, until medical assistance becomes available. Enoxaparin 2021- No [id number] 40mg QD Inject 0.4 UT Sodium 07-07 9108 mL (40 mg Health (Lovenox) 00:00: 04:59 total) as 40 MG/0.4ML 00 :00 directed 1 solution (one) time prefilled each day syringe for 9 days. ondansetron 2021- No [id number] 4mg Take 1 UT ODT (Zofran 07-07 9108 tablet (4 He alth ODT) 4 MG 00:00: 04:59 mg total) disintegrat 00 :00 by mouth ing tablet every 8 (eight) hours if needed for nausea or vomiting for up to 7 days. Lexapro 2021- Yes 30 mg, PO, Stefan adalberto -22 Daily, 0 l 13:25: Refill(s) [place] 00 Abilify 5 2021- Yes 5 mg = 1 Stefan adalberto mg oral - tab, PO, l tablet 12:51: Daily, # [place] 00 30 tab, 0 Refill(s) oxyCODONE No [...] ity of 5 mg tablet 16:00: daily. [address] OLANZapine 2021-0 Yes 15mg Take 15 mg U nivers 15 mg 9-02 by mouth. ity of tablet 16:00: [address] SERTraline 2021-0 Yes 50mg Take 50 mg U nivers 50 mg 9-02 by mouth. ity of tablet 16:00: [address] traZODone 2021-0 Yes 200mg Take 200 Uni vers 100 mg 9-02 mg by ity of tablet 16:00: mouth. [address] ARIPiprazol 2021-0 Yes 5mg Take 5 mg U nivers e (ABILIFY) 9-02 by mouth ity of 5 mg tablet 16:00: daily. [address] OLANZapine 2021-0 Yes 15mg Take 15 mg U nivers 15 mg 9-02 by mouth. ity of tablet 16:00: [address] SERTraline 2021-0 Yes 50mg Take 50 mg U nivers 50 mg 9-02 by mouth. ity of tablet 16:00: [address] traZODone 2-0 Yes 200mg Take 200 Uni vers 100 mg 9-02 mg by ity of tablet 16:00: mouth. [address] ARIPiprazol 2-0 Yes 5mg Take 5 mg U nivers e (ABILIFY) 9-02 by mouth ity of 5 mg tablet 16:00: daily. [address] OLANZapine 2-0 Yes 15mg Take 15 mg U nivers 15 mg 9-02 by mouth. ity of tablet 16:00: [address] SERTraline 2-0 Yes 50mg Take 50 mg U nivers 50 mg 9-02 by mouth. ity of tablet 16:00: [address] traZODone 2-0 Yes 200mg Take 200 Uni vers 100 mg 9-02 mg by ity of tablet 16:00: mouth. [address] ARIPiprazol 2-0 Yes 5mg Take 5 mg U nivers e (ABILIFY) 9-02 by mouth ity of 5 mg tablet 16:00: daily. [address] OLANZapine 2-0 Yes 15mg Take 15 mg U nivers 15 mg 9-02 by mouth. ity of tablet 16:00: [address] SERTraline 2-0 Yes 50mg Take 50 mg U nivers 50 mg 9-02 by mouth. ity of tablet 16:00: [address] traZODone 2-0 Yes 200mg Take 200 Uni vers 100 mg 9-02 mg by ity of tablet 16:00: mouth. [address] ARIPiprazol 2021-0 Yes 5mg Take 5 mg U nivers e (ABILIFY) 9-02 by mouth ity of 5 mg tablet 16:00: daily. [address] OLANZapine 2021-0 Yes 15mg Take 15 mg U nivers 15 mg 9-02 by mouth. ity of tablet 16:00: [address] SERTraline 2-0 Yes 50mg Take 50 mg U nivers 50 mg 9-02 by mouth. ity of tablet 16:00: [address] traZODone 2-0 Yes 200mg Take 200 Uni vers 100 mg 9-02 mg by ity of tablet 16:00: mouth. [address] ARIPiprazol 2-0 Yes 5mg Take 5 mg U nivers e (ABILIFY) 9-02 by mouth ity of 5 mg tablet 16:00: daily. [address] OLANZapine 2-0 Yes 15mg Take 15 mg U nivers 15 mg 9-02 by mouth. ity of tablet 16:00: [address] SERTraline 2-0 Yes 50mg Take 50 mg U nivers 50 mg 9-02 by mouth. ity of tablet 16:00: [address] traZODone 2-0 Yes 200mg Take 200 Uni vers 100 mg 9-02 mg by ity of tablet 16:00: mouth. [address] ARIPiprazol 2-0 Yes 5mg Take 5 mg U nivers e (ABILIFY) 9-02 by mouth ity of 5 mg tablet 16:00: daily. [address] OLANZapine 2-0 Yes 15mg Take 15 mg U nivers 15 mg 9-02 by mouth. ity of tablet 16:00: [address] SERTraline 2-0 Yes 50mg Take 50 mg U nivers 50 mg 9-02 by mouth. ity of tablet 16:00: [address] traZODone 2-0 Yes 200mg Take 200 Uni vers 100 mg 9-02 mg by ity of tablet 16:00: mouth. [address] ARIPiprazol 2-0 Yes 5mg Take 5 mg U nivers e (ABILIFY) 9-02 by mouth ity of 5 mg tablet 16:00: daily. [address] OLANZapine 2-0 Yes 15mg Take 15 mg U nivers 15 mg 9-02 by mouth. ity of tablet 16:00: [address] SERTraline 2-0 Yes 50mg Take 50 mg U nivers 50 mg 9-02 by mouth. ity of tablet 16:00: [address] traZODone 2-0 Yes 200mg Take 200 Uni vers 100 mg 9-02 mg by ity of tablet 16:00: mouth. [address] ARIPiprazol 2-0 Yes 5mg Take 5 mg U nivers e (ABILIFY) 9-02 by mouth ity of 5 mg tablet 16:00: daily. [address] OLANZapine 2-0 Yes 15mg Take 15 mg U nivers 15 mg 9-02 by mouth. ity of tablet 16:00: [address] SERTraline 2-0 Yes 50mg Take 50 mg U nivers 50 mg 9-02 by mouth. ity of tablet 16:00: [address] traZODone 2-0 Yes 200mg Take 200 Uni vers 100 mg 9-02 mg by ity of tablet 16:00: mouth. [address] ARIPiprazol 2-0 Yes 5mg Take 5 mg U nivers e (ABILIFY) 9-02 by mouth ity of 5 mg tablet 16:00: daily. [address] OLANZapine 2-0 Yes 15mg Take 15 mg U nivers 15 mg 9-02 by mouth. ity of tablet 16:00: [address] SERTraline 2021-0 Yes 50mg Take 50 mg U nivers 50 mg 9-02 by mouth. ity of tablet 16:00: [address] traZODone 2021-0 Yes 200mg Take 200 Uni vers 100 mg 9-02 mg by ity of tablet 16:00: mouth. [address] ARIPiprazol 2021-0 Yes 5mg Take 5 mg U nivers e (ABILIFY) 9-02 by mouth ity of 5 mg tablet 16:00: daily. [address] OLANZapine 2021-0 Yes 15mg Take 15 mg U nivers 15 mg 9-02 by mouth. ity of tablet 16:00: [address] SERTraline 2021-0 Yes 50mg Take 50 mg U nivers 50 mg 9-02 by mouth. ity of tablet 16:00: [address] traZODone 2021-0 Yes 200mg Take 200 Uni vers 100 mg 9-02 mg by ity of tablet 16:00: mouth. [address] ARIPiprazol 2021-0 Yes 5mg Take 5 mg U nivers e (ABILIFY) 9-02 by mouth ity of 5 mg tablet 16:00: daily. [address] OLANZapine 2021-0 Yes 15mg Take 15 mg U nivers 15 mg 9-02 by mouth. ity of tablet 16:00: [address] SERTraline 2021-0 Yes 50mg Take 50 mg U nivers 50 mg 9-02 by mouth. ity of tablet 16:00: [address] traZODone 2021-0 Yes 200mg Take 200 Uni vers 100 mg 9-02 mg by ity of tablet 16:00: mouth. [address] ARIPiprazol 2-0 Yes 5mg Take 5 mg U nivers e (ABILIFY) 9-02 by mouth ity of 5 mg tablet 16:00: daily. [address] OLANZapine 2-0 Yes 15mg Take 15 mg U nivers 15 mg 9-02 by mouth. ity of tablet 16:00: [address] SERTraline 2-0 Yes 50mg Take 50 mg U nivers 50 mg 9-02 by mouth. ity of tablet 16:00: [address] traZODone 2021-0 Yes 200mg Take 200 Uni vers 100 mg 9-02 mg by ity of tablet 16:00: mouth. [address] ARIPiprazol 0 Yes 5mg Take 5 mg U nivers e (ABILIFY) 9-02 by mouth ity of 5 mg tablet 16:00: daily. [address] traZODone 0 Yes 200mg Take 200 Uni vers 100 mg 9-02 mg by ity of tablet 16:00: mouth. [address] ARIPiprazol 0 Yes 5mg Take 5 mg U nivers e (ABILIFY) 9-02 by mouth ity of 5 mg tablet 16:00: daily. [address] traZODone 0 Yes 200mg Take 200 Uni vers 100 mg 9-02 mg by ity of tablet 16:00: mouth. [address] ARIPiprazol 0 Yes 5mg Take 5 mg U nivers e (ABILIFY) 9-02 by mouth ity of 5 mg tablet 16:00: daily. [address] traZODone 0 Yes 200mg Take 200 Uni vers 100 mg 9-02 mg by ity of tablet 16:00: mouth. [address] ARIPiprazol 0 Yes 5mg Take 5 mg U nivers e (ABILIFY) 9-02 by mouth ity of 5 mg tablet 16:00: daily. [address] traZODone 0 Yes 200mg Take 200 Uni vers 100 mg 9-02 mg by ity of tablet 16:00: mouth. [address] ARIPiprazol 0 Yes 5mg Take 5 mg U nivers e (ABILIFY) 9-02 by mouth ity of 5 mg tablet 16:00: daily. [address] traZODone 0 Yes 200mg Take 200 Uni vers 100 mg 9-02 mg by ity of tablet 16:00: mouth. [address] ARIPiprazol 0 Yes 5mg Take 5 mg U nivers e (ABILIFY) 9-02 by mouth ity of 5 mg tablet 16:00: daily. [address] traZODone 2021-0 Yes 200mg Take 200 Uni vers 100 mg 9-02 mg by ity of tablet 16:00: mouth. [address] ARIPiprazol 2021-0 Yes 5mg Take 5 mg U nivers e (ABILIFY) 9-02 by mouth ity of 5 mg tablet 16:00: daily. [address] traZODone 2021-0 Yes 200mg Take 200 Uni vers 100 mg 9-02 mg by ity of tablet 16:00: mouth. [address] ARIPiprazol 0 Yes 5mg Take 5 mg U nivers e (ABILIFY) 9-02 by mouth ity of 5 mg tablet 16:00: daily. [address] traZODone 0 Yes 200mg Take 200 Uni vers 100 mg 9-02 mg by ity of tablet 16:00: mouth. [address] ARIPiprazol 2021-0 Yes 5mg Take 5 mg U nivers e (ABILIFY) 9-02 by mouth ity of 5 mg tablet 16:00: daily. [address] traZODone 0 Yes 200mg Take 200 Uni vers 100 mg 9-02 mg by ity of tablet 16:00: mouth. [address] ARIPiprazol 2021-0 Yes 5mg Take 5 mg U nivers e (ABILIFY) 9-02 by mouth ity of 5 mg tablet 16:00: daily. [address] traZODone 0 Yes 200mg Take 200 Uni vers 100 mg 9-02 mg by ity of tablet 16:00: mouth. [address] ARIPiprazol 2021-0 Yes 5mg Take 5 mg U nivers e (ABILIFY) 9-02 by mouth ity of 5 mg tablet 16:00: daily. [address] traZODone 0 Yes 200mg Take 200 Uni vers 100 mg 9-02 mg by ity of tablet 16:00: mouth. [address] ARIPiprazol 2021-0 Yes 5mg Take 5 mg U nivers e (ABILIFY) 9-02 by mouth ity of 5 mg tablet 16:00: daily. [address] traZODone 0 Yes 200mg Take 200 Uni vers 100 mg 9-02 mg by ity of tablet 16:00: mouth. [address] ARIPiprazol 0 Yes 5mg Take 5 mg U nivers e (ABILIFY) 9-02 by mouth ity of 5 mg tablet 16:00: daily. [address] traZODone 0 Yes 200mg Take 200 Uni vers 100 mg 9-02 mg by ity of tablet 16:00: mouth. [address] ARIPiprazol 0 Yes 5mg Take 5 mg U nivers e (ABILIFY) 9-02 by mouth ity of 5 mg tablet 16:00: daily. [address] traZODone 0 Yes 200mg Take 200 Uni vers 100 mg 9-02 mg by ity of tablet 16:00: mouth. [address] ARIPiprazol 0 Yes 5mg Take 5 mg U nivers e (ABILIFY) 9-02 by mouth ity of 5 mg tablet 16:00: daily. [address] traZODone 0 Yes 200mg Take 200 Uni vers 100 mg 9-02 mg by ity of tablet 16:00: mouth. [address] ARIPiprazol 0 Yes 5mg Take 5 mg U nivers e (ABILIFY) 9-02 by mouth ity of 5 mg tablet 16:00: daily. [address] traZODone 0 Yes 200mg Take 200 Uni vers 100 mg 9-02 mg by ity of tablet 16:00: mouth. [address] ARIPiprazol 0 Yes 5mg Take 5 mg U nivers e (ABILIFY) 9-02 by mouth ity of 5 mg tablet 16:00: daily. [address] traZODone 0 Yes 200mg Take 200 Uni vers 100 mg 9-02 mg by ity of tablet 16:00: mouth. [address] Vortioxetin 0 Yes 10mg QD Take 10 mg UT e HBr 06-11 by mouth 1 Health (Trintellix 09:38: (one) [...] 59 each day. gabapentin 2022-0 Yes 600mg Q.[id number] Take 600 UT (Neurontin) 9- [id number] mg by H ealth 600 MG 09:37: [...] 59 each day. gabapentin 2022-0 Yes 600mg Q.[id number] Take 600 UT (Neurontin) 9- [id number] mg by H ealth 600 MG 09:37: [...] 59 each day. gabapentin 2022-0 Yes 600mg Q.[id number] Take 600 UT (Neurontin) 9- [id number] mg by H ealth 600 MG 09:37: 3D mouth in tablet 59 the morning and 600 mg at noon and 600 mg in the evening. levothyroxi 2022-0 Yes 88ug QD Take 88 UT ne 9-01 mcg by Health (Synthroid, 09:37: mouth 1 Levoxyl) 88 59 (one) time MCG tablet each day. ARIPiprazol 2022-0 Yes 5mg QD Take 5 mg U T e (Abilify) 9-01 by mouth 1 He alth 5 MG tablet 09:37: (one) time 59 each day. gabapentin 2022-0 Yes 600mg Q.[id number] Take 600 UT (Neurontin) 9-01 [id number] mg by H ealth 600 MG 09:37: [...] 59 each day. gabapentin 2022-0 Yes 600mg Q.84374426 Take 600 UT (Neurontin) 9- [id number] mg by H ealth 600 MG 09:37: 3D mouth in tablet 59 the morning and 600 mg at noon and 600 mg in the evening. levothyroxi 2022-0 Yes 88ug QD Take 88 UT ne 9-01 mcg by Health (Synthroid, 09:37: mouth 1 Levoxyl) 88 59 (one) time MCG tablet each day. ARIPiprazol 2022-0 Yes 5mg QD Take 5 mg U T e (Abilify) 9-01 by mouth 1 He alth 5 MG tablet 09:37: (one) time 59 each day. ARIPiprazol 2022-0 Yes 5mg QD Take 5 mg U T e (Abilify) 9-01 by mouth 1 He alth 5 MG tablet 09:37: (one) time 59 each day. gabapentin 2022-0 Yes 600mg Q.06047771 Take 600 UT (Neurontin) 9- [id number] mg by H ealth 600 MG 09:37: 3D mouth in tablet 59 the morning and 600 mg at noon and 600 mg in the evening. levothyroxi 2022-0 Yes 88ug QD Take 88 UT ne 9-01 mcg by Health (Synthroid, 09:37: mouth 1 Levoxyl) 88 59 (one) time MCG tablet each day. gabapentin 2022-0 Yes 600mg Q.81850864 Take 600 UT (Neurontin) 9-01 [id number] mg by H ealth 600 MG 09:37: 3D mouth in tablet 59 the morning and 600 mg at noon and 600 mg in the evening. ARIPiprazol 2022-0 Yes 5mg QD Take 5 mg U T e (Abilify) 9- by mouth 1 He alth 5 MG tablet 09:37: (one) time 59 each day. gabapentin 2022-0 Yes 600mg Q.99247313 Take 600 UT (Neurontin) 9- [id number] mg by H ealth 600 MG 09:37: 3D mouth in tablet 59 the morning and 600 mg at noon and 600 mg in the evening. levothyroxi 2022-0 Yes 88ug QD Take 88 UT ne 9-01 mcg by Health (Synthroid, 09:37: mouth 1 Levoxyl) 88 59 (one) time MCG tablet each day. levothyroxi 2022-0 Yes 88ug QD Take 88 UT ne 9-01 mcg by Health (Synthroid, 09:37: mouth 1 Levoxyl) 88 59 (one) time MCG tablet each day. ARIPiprazol 2022-0 Yes 5mg QD Take 5 mg U T e (Abilify) - by mouth 1 He alth 5 MG tablet 09:37: (one) time 59 each day. gabapentin 2022-0 Yes 600mg Q.[id number] Take 600 UT (Neurontin) 9- [id number] mg by H ealth 600 MG 09:37: [...] 59 each day. gabapentin 2022-0 Yes 600mg Q.[id number] Take 600 UT (Neurontin) 9-01 [id number] mg by H ealth 600 MG 09:37: [...] 59 each day. gabapentin 2022-0 Yes 600mg Q.[id number] Take 600 UT (Neurontin) 9- [id number] mg by H ealth 600 MG 09:37: [...] 59 each day. gabapentin 2022-0 Yes 600mg Q.66107814 Take 600 UT (Neurontin) 9- [id number] mg by H ealth 600 MG 09:37: 3D mouth in tablet 59 the morning and 600 mg at noon and 600 mg in the evening. levothyroxi 2022-0 Yes 88ug QD Take 88 UT ne 9-01 mcg by Health (Synthroid, 09:37: mouth 1 Levoxyl) 88 59 (one) time MCG tablet each day. ARIPiprazol 2022-0 Yes 5mg QD Take 5 mg U T e (Abilify) 9-01 by mouth 1 He alth 5 MG tablet 09:37: (one) time 59 each day. gabapentin Yes 600mg Q.98861071 Take 600 UT (Neurontin) 06-11 [id number] mg by H ealth 600 MG 09:37: 3D mouth in tablet 59 the morning and 600 mg at noon and 600 mg in the evening. levothyroxi Yes 88ug QD Take 88 UT ne 06-11 mcg by Health (Synthroid, 09:37: mouth 1 Levoxyl) 88 59 (one) time MCG tablet each day. omeprazole 2021- No [id number] 20mg QD Take 1 UT OTC 06-11 tablet (20 Health (PriLOSEC 00:00: 04:59 mg total) OTC) 20 MG 00 :00 by mouth 1 EC tablet (one) time each day. Do not crush, chew, or split. Take w/ NSAID Diclofenac 2021- No [id number] Q.13188671 Apply UT Sodium 06-11 [id number] topically H ealth (Voltaren) 00:00: 04:59 3D 3 (three) 1 % 00 :00 times a external day if gel needed (pain). Apply 4 grams to affected area, do not exceed greater than 16 grams a day meloxicam 2021- No [id number] 7.5mg Take 1 UT (Mobic) 7.5 06-11 tablet Healt h MG tablet 00:00: 04:59 (7.5 mg 00 :00 total) by mouth 1 (one) time each day if needed (pain). omeprazole 2021- No [id number] 20mg QD Take 1 UT OTC 06-11 tablet (20 Health (PriLOSEC 00:00: 04:59 mg total) OTC) 20 MG 00 :00 by mouth 1 EC tablet (one) time each day. Do not crush, chew, or split. Take w/ NSAID Diclofenac 2021- No [id number] Q.70347218 Apply UT Sodium 06-11 [id number] topically H ealth (Voltaren) 00:00: 04:59 3D 3 (three) 1 % 00 :00 times a external day if gel needed (pain). Apply 4 grams to affected area, do not exceed greater than 16 grams a day meloxicam 0 2021- No [id number] 7.5mg Take 1 UT (Mobic) 7.5 06-11 tablet Healt h MG tablet 00:00: 04:59 (7.5 mg 00 :00 total) by mouth 1 (one) time each day if needed (pain). omeprazole 2021- No [id number] 20mg QD Take 1 UT OTC 06-11 tablet (20 Health (PriLOSEC 00:00: 04:59 mg total) OTC) 20 MG 00 :00 by mouth 1 EC tablet (one) time each day. Do not crush, chew, or split. Take w/ NSAID Diclofenac 2021- No [id number] Q.51723298 Apply UT Sodium 06-11 [id number] topically H ealth (Voltaren) 00:00: 04:59 3D 3 (three) 1 % 00 :00 times a external day if gel needed (pain). Apply 4 grams to affected area, do not exceed greater than 16 grams a day meloxicam 2021- No [id number] 7.5mg Take 1 UT (Mobic) 7.5 06-11 tablet Healt h MG tablet 00:00: 04:59 (7.5 mg 00 :00 total) by mouth 1 (one) time each day if needed (pain). methylPREDN 2021- No [id number] 4mg Take 1 UT ISolone 06-11 tablet (4 Health (Medrol 00:00: 04:59 mg total) Dospak) 4 00 :00 by mouth 1 MG tablets (one) time for 1 dose. Use as directed by package instructio ns escitalopra 2021-0 Yes 20mg QD Take 1 [...] (two) times a day. traMADoL 2-0 Yes [id number] 50mg Q.5D Take 1 Method i (ULTRAM) 50 06-07 tablet (50 st mg tablet 22:14: mg total) Hos levy 00 by mouth 2 l (two) times a day .acute pain. oxyCODone 2021-0 Yes [id number] 15mg Q.84641222 Take 1 [facility] (ROXICODONE 06-07 [id number] tablet (15 st ) 15 MG 22:14: 3D mg total) Hospi ta immediate 00 by mouth 3 l release (three) tablet times a day .acute pain. Max Daily Amount: 45 mg gabapentin 2022-0 Yes 600mg Q.[id number] Take 1 [facility] (NEURONTIN) 06-[id number] 600 mg 22:14: 3D (600 [...] (two) times a day. traMADoL 2022-0 Yes 44493 50mg Q.5D Take 1 [facility] (ULTRAM) 50 8-28 tablet (50 st mg tablet 22:14: mg total) Hos levy 00 by mouth 2 l (two) times a day .acute pain. oxyCODone 2021-0 Yes 89434 15mg Q.[id number] Take 1 [facility] (ROXICODONE 06-07 [id number] tablet (15 st ) 15 MG 22:14: 3D mg total) Hospi ta immediate 00 by mouth 3 l release (three) tablet times a day .acute pain. Max Daily Amount: 45 mg gabapentin 2-0 Yes 600mg Q.[id number] Take 1 [facility] (NEURONTIN) 06-[id number] 600 mg 22:14: 3D (600 [...] (two) times a day. traMADoL 2021-0 Yes 00809 50mg Q.5D Take 1 [facility] (ULTRAM) 50 06-07 tablet (50 st mg tablet 22:14: mg total) [facility] 00 by mouth 2 l (two) times a day .acute pain. oxyCODone 2021-0 Yes 82039 15mg Q.75589049 Take 1 [facility] (ROXICODONE 06-07 [id number] tablet (15 st ) 15 MG 22:14: 3D mg total) [facility] immediate 00 by mouth 3 l release (three) tablet times a day .acute pain. Max Daily Amount: 45 mg gabapentin 2021-0 Yes 600mg Q.[id number] Take 1 [facility] (NEURONTIN) 06-[id number] 600 mg 22:14: 3D (600 [...] (two) times a day. traMADoL 2021-0 Yes 51876 50mg Q.5D Take 1 [facility] (ULTRAM) 50 06-07 tablet (50 st mg tablet 22:14: mg total) [facility] 00 by mouth 2 l (two) times a day .acute pain. oxyCODone 2021-0 Yes 57743 15mg Q.17310900 Take 1 [facility] (ROXICODONE 06-07 [id number] tablet (15 st ) 15 MG 22:14: 3D mg total) [facility] immediate 00 by mouth 3 l release (three) tablet times a day .acute pain. Max Daily Amount: 45 mg gabapentin 2021-0 Yes 600mg Q.[id number] Take 1 [facility] (NEURONTIN) 06-[id number] 600 mg 22:14: 3D (600 [...] (two) times a day. traMADoL 2-0 Yes 14537 50mg Q.5D Take 1 [facility] (ULTRAM) 50 - tablet (50 st mg tablet 22:14: mg total) [facility] 00 by mouth 2 l (two) times a day .acute pain. oxyCODone 2021-0 Yes 32404 15mg Q.12310341 Take 1 [facility] (ROXICODONE -28 [id number] tablet (15 st ) 15 MG 22:14: 3D mg total) [facility] immediate 00 by mouth 3 l release (three) tablet times a day .acute pain. Max Daily Amount: 45 mg gabapentin 2-0 Yes 600mg Q.[id number] Take 1 [facility] (NEURONTIN) 06-[id number] 600 mg 22:14: 3D (600 [...] (two) times a day. traMADoL 2022-0 Yes [id number] 50mg Q.5D Take 1 [facility] (ULTRAM) 50 - tablet (50 st mg tablet 22:14: mg total) [facility] 00 by mouth 2 l (two) times a day .acute pain. oxyCODone 2021-0 Yes 10364 15mg Q.10383641 Take 1 [facility] (ROXICODONE 06-07 [id number] tablet (15 st ) 15 MG 22:14: 3D mg total) [facility] immediate 00 by mouth 3 l release (three) tablet times a day .acute pain. Max Daily Amount: 45 mg gabapentin 2-0 Yes 600mg Q.[id number] Take 1 [facility] (NEURONTIN) 06-[id number] 600 mg 22:14: 3D (600 [...] (two) times a day. traMADoL 2021-0 Yes 39372 50mg Q.5D Take 1 [facility] (ULTRAM) 50 - tablet (50 st mg tablet 22:14: mg total) [facility] 00 by mouth 2 l (two) times a day .acute pain. oxyCODone 2021-0 Yes 09746 15mg Q.32351613 Take 1 [facility] (ROXICODONE 06-07 [id number] tablet (15 st ) 15 MG 22:14: 3D mg total) [facility] immediate 00 by mouth 3 l release (three) tablet times a day .acute pain. Max Daily Amount: 45 mg gabapentin 2021-0 Yes 600mg Q.13774997 Take 1 [facility] (NEURONTIN) 06-[id number] 600 mg 22:14: 3D (600 [...] (two) times a day. traMADoL 2021-0 Yes 98412 50mg Q.5D Take 1 [facility] (ULTRAM) 50 - tablet (50 st mg tablet 22:14: mg total) [facility] 00 by mouth 2 l (two) times a day .acute pain. oxyCODone 2021-0 Yes 74329 15mg Q.08799454 Take 1 [facility] (ROXICODONE 06-07 [id number] tablet (15 st ) 15 MG 22:14: 3D mg total) [facility] immediate 00 by mouth 3 l release (three) tablet times a day .acute pain. Max Daily Amount: 45 mg gabapentin 2-0 Yes 600mg Q.21096665 Take 1 [facility] (NEURONTIN) - [id number] tablet st 600 mg 22:14: 3D (600 [...] (two) times a day. traMADoL 2022-0 Yes 50129 50mg Q.5D Take 1 [facility] (ULTRAM) 50 8-28 tablet (50 st mg tablet 22:14: mg total) [facility] 00 by mouth 2 l (two) times a day .acute pain. oxyCODone 2022-0 Yes 22336 15mg Q.82127341 Take 1 [facility] (ROXICODONE 8-28 [id number] tablet (15 st ) 15 MG 22:14: 3D mg total) [facility] immediate 00 by mouth 3 l release (three) tablet times a day .acute pain. Max Daily Amount: 45 mg gabapentin 2022-0 Yes 600mg Q.34351984 Take 1 [facility] (NEURONTIN) 06-[id number] 600 mg 22:14: 3D (600 [...] (two) times a day. traMADoL 2-0 Yes 51731 50mg Q.5D Take 1 [facility] (ULTRAM) 50 - tablet (50 st mg tablet 22:14: mg total) [facility] 00 by mouth 2 l (two) times a day .acute pain. oxyCODone 2021-0 Yes 52383 15mg Q.54705114 Take 1 [facility] (ROXICODONE 06-07 [id number] tablet (15 st ) 15 MG 22:14: 3D mg total) [facility] immediate 00 by mouth 3 l release (three) tablet times a day .acute pain. Max Daily Amount: 45 mg gabapentin 2021-0 Yes 600mg Q.39405099 Take 1 [facility] (NEURONTIN) 06-[id number] 600 mg 22:14: 3D (600 [...] (two) times a day. traMADoL 2022-0 Yes 99423 50mg Q.5D Take 1 [facility] (ULTRAM) 50 - tablet (50 st mg tablet 22:14: mg total) [facility] 00 by mouth 2 l (two) times a day .acute pain. oxyCODone 2022-0 Yes 10611 15mg Q.69555229 Take 1 [facility] (ROXICODONE - [id number] tablet (15 st ) 15 MG 22:14: 3D mg total) [facility] immediate 00 by mouth 3 l release (three) tablet times a day .acute pain. Max Daily Amount: 45 mg omeprazole 2022-0 Yes 20mg QD Take 1 [facility] (PriLOSEC) 8-[address] 20 MG 22:14: (20 mg [facility] capsule 00 total) by l mouth daily. gabapentin 2022-0 Yes 600mg Q.47391159 Take 1 [facility] (NEURONTIN) 8-[id number] 600 mg 22:14: 3D (600 [...] (two) times a day. traMADoL 2022-0 Yes 81325 50mg Q.5D Take 1 [facility] (ULTRAM) [...] (two) times a day. traMADoL 2022-0 Yes 02091 50mg Q.5D Take 1 [facility] (ULTRAM) 50 - tablet (50 st mg tablet 22:14: mg total) [facility] 00 by mouth 2 l (two) times a day .acute pain. oxyCODone 2021-0 Yes 58167 15mg Q.28582756 Take 1 [facility] (ROXICODONE - [id number] tablet (15 st ) 15 MG 22:14: 3D mg total) [facility] immediate 00 by mouth 3 l release (three) tablet times a day .acute pain. Max Daily Amount: 45 mg oxyCODone 2021-0 Yes 37076 15mg Q.37391351 Take 1 [facility] (ROXICODONE 06-07 [id number] tablet (15 st ) 15 MG 22:14: 3D mg total) [facility] immediate 00 by mouth 3 l release (three) tablet times a day .acute pain. Max Daily Amount: 45 mg gabapentin 2021-0 Yes 600mg Q.15255264 Take 1 [facility] (NEURONTIN) 06-[id number] 600 mg 22:14: 3D (600 [...] mouth l daily. gabapentin 2022-0 Yes 600mg Q.[id number] Take 1 [facility] (NEURONTIN) 06-[id number] 600 mg 22:14: 3D (600 mg [facility]osp[facility] tablet 00 total) by l mouth 3 (three) times a day. diclofenac 2022-0 Yes 75mg QD Take 1 [facility] (VOLTAREN) - tablet (75 st 75 MG EC 22:14: mg total) [facility] tablet 00 by mouth l daily. levothyroxi 2021-0 [...] (two) times a day. traMADoL 2-0 Yes 11949 50mg Q.5D Take 1 [facility] (ULTRAM) 50 06-07 tablet (50 st mg tablet 22:14: mg total) [facility] 00 by mouth 2 l (two) times a day .acute pain. oxyCODone 2022-0 Yes 83440 15mg Q.12806768 Take 1 [facility] (ROXICODONE 06-07 [id number] tablet (15 st ) 15 MG 22:14: 3D mg total) [facility] immediate 00 by mouth 3 l release (three) tablet times a day .acute pain. Max Daily Amount: 45 mg escitalopra 2022-0 Yes 20mg QD Take 1 [facility] (LEXAPRO) - tablet (20 st 20 MG 22:14: mg total) [facility]osp[facility] tablet 00 by mouth l daily. gabapentin 2022-0 Yes 600mg Q.08310148 Take 1 [facility] (NEURONTIN) 06-[id number] 600 mg 22:14: 3D (600 [...] (two) times a day. traMADoL 2021-0 Yes 95659 50mg Q.5D Take 1 [facility] (ULTRAM) 50 06-07 tablet (50 st mg tablet 22:14: mg total) [facility] 00 by mouth 2 l (two) times a day .acute pain. oxyCODone 2021-0 Yes 32970 15mg Q.86113826 Take 1 [facility] (ROXICODONE 06-07 [id number] tablet (15 st ) 15 MG 22:14: 3D mg total) [facility] immediate 00 by mouth 3 l release (three) tablet times a day .acute pain. Max Daily Amount: 45 mg buPROPion 2021-0 Yes 300mg QD Take 1 [facility] XL 06-[address] (WELLBUTRIN 22:14: (300 mg Hos [facility] XL) 300 MG 00 total) by l 24 hr mouth tablet daily. gabapentin 2021-0 Yes 600mg Q.85862137 Take 1 [facility] (NEURONTIN) 06-[id number] 600 mg 22:14: 3D (600 [...] (two) times a day. traMADoL 2022-0 Yes 46142 50mg Q.5D Take 1 [facility] (ULTRAM) 50 06-07 tablet (50 st mg tablet 22:14: mg total) [facility] 00 by mouth 2 l (two) times a day .acute pain. oxyCODone 2-0 Yes 62356 15mg Q.87036920 Take 1 [facility] (ROXICODONE 06-07 [id number] tablet (15 st ) 15 MG 22:14: 3D mg total) [facility] immediate 00 by mouth 3 l release (three) tablet times a day .acute pain. Max Daily Amount: 45 mg gabapentin 2022-0 Yes 600mg Q.91303054 Take 1 [facility] (NEURONTIN) 06-[id number] 600 mg 22:14: 3D (600 [...] 300mg QD Take 1 [facility] XL 8- tablet st (WELLBUTRIN 22:14: (300 mg Hos [...] (two) times a day. traMADoL 2022-0 Yes 72828 50mg Q.5D Take 1 [facility] (ULTRAM) 50 8-28 tablet (50 st mg tablet 22:14: mg total) Hos [facility] 00 by mouth 2 l (two) times a day .acute pain. oxyCODone 2021-0 Yes 99360 15mg Q.28108815 Take 1 [facility] (ROXICODONE 06-07 [id number] tablet (15 st ) 15 MG 22:14: 3D mg total) [facility] immediate 00 by mouth 3 l release (three) tablet times a day .acute pain. Max Daily Amount: 45 mg gabapentin 2021-0 Yes 600mg Q.47022102 Take 1 [facility] (NEURONTIN) 06-[id number] 600 mg 22:14: 3D (600 [...] (two) times a day. traMADoL 2-0 Yes 31153 50mg Q.5D Take 1 [facility] (ULTRAM) 50 06-07 tablet (50 st mg tablet 22:14: mg total) Hos [facility] 00 by mouth 2 l (two) times a day .acute pain. oxyCODone 2021-0 Yes 83722 15mg Q.64904972 Take 1 [facility] (ROXICODONE 06-07 [id number] tablet (15 st ) 15 MG 22:14: 3D mg total) [facility] immediate 00 by mouth 3 l release (three) tablet times a day .acute pain. Max Daily Amount: 45 mg gabapentin 2021-0 Yes 600mg Q.96933821 Take 1 [facility] (NEURONTIN) 06-[id number] 600 mg 22:14: 3D (600 [...] (two) times a day. traMADoL 2021-0 Yes 97200 50mg Q.5D Take 1 [facility] (ULTRAM) 50 06-07 tablet (50 st mg tablet 22:14: mg total) Hos [facility] 00 by mouth 2 l (two) times a day .acute pain. oxyCODone 2021-0 Yes 39075 15mg Q.75445769 Take 1 [facility] (ROXICODONE 06-07 [id number] tablet (15 st ) 15 MG 22:14: 3D mg total) [facility] immediate 00 by mouth 3 l release (three) tablet times a day .acute pain. Max Daily Amount: 45 mg gabapentin 2021-0 Yes 600mg Q.19885326 Take 1 [facility] (NEURONTIN) 06-[id number] 600 mg 22:14: 3D (600 [...] (two) times a day. traMADoL 2021-0 Yes 57930 50mg Q.5D Take 1 [facility] (ULTRAM) 50 - tablet (50 st mg tablet 22:14: mg total) [facility] 00 by mouth 2 l (two) times a day .acute pain. oxyCODone 2021-0 Yes 59682 15mg Q.92555642 Take 1 [facility] (ROXICODONE -28 [id number] tablet (15 st ) 15 MG 22:14: 3D mg total) [facility] immediate 00 by mouth 3 l release (three) tablet times a day .acute pain. Max Daily Amount: 45 mg gabapentin 2021-0 Yes 600mg Q.40703455 Take 1 [facility] (NEURONTIN) 06-[id number] 600 mg 22:14: 3D (600 [...] (two) times a day. traMADoL 2022-0 Yes 68077 50mg Q.5D Take 1 [facility] (ULTRAM) 50 06-07 tablet (50 st mg tablet 22:14: mg total) Hos [facility] 00 by mouth 2 l (two) times a day .acute pain. oxyCODone 2021-0 Yes 67487 15mg Q.34852039 Take 1 [facility] (ROXICODONE 06-07 [id number] tablet (15 st ) 15 MG 22:14: 3D mg total) [facility] ta immediate 00 by mouth 3 l release (three) tablet times a day .acute pain. Max Daily Amount: 45 mg gabapentin 2021-0 Yes 600mg Q.60724796 Take 1 [facility] (NEURONTIN) 06-[id number] 600 mg 22:14: 3D (600 [...] 300mg QD Take 1 [facility] XL [address] (WELLBUTRIN 22:14: (300 mg Hos le[facility] XL) 300 MG 00 total) by l 24 hr mouth tablet daily. ARIPiprazol 2022-0 Yes 5mg QD Take 1 [facility] e (ABILIFY) 28 tablet (5 st 5 MG tablet 22:14: [...] (two) times a day. traMADoL 2021-0 Yes 16340 50mg Q.5D Take 1 [facility] (ULTRAM) 50 - tablet (50 st mg tablet 22:14: mg total) Hos le[facility] 00 by mouth 2 l (two) times a day .acute pain. oxyCODone 2021-0 Yes 57024 15mg Q.15438288 Take 1 [facility] (ROXICODONE 06-07 [id number] tablet (15 st ) 15 MG 22:14: 3D mg total) [facility]pi ta immediate 00 by mouth 3 l release (three) tablet times a day .acute pain. Max Daily Amount: 45 mg gabapentin 2021-0 Yes 600mg Q.82707899 Take 1 [facility] (NEURONTIN) 06-[id number] 600 mg 22:14: 3D (600 [...] (two) times a day. traMADoL 2-0 Yes 77987 50mg Q.5D Take 1 [facility] (ULTRAM) 50 - tablet (50 st mg tablet 22:14: mg total) Hos le[facility] 00 by mouth 2 l (two) times a day .acute pain. oxyCODone 2-0 Yes 08692 15mg Q.59155212 Take 1 [facility] (ROXICODONE - [id number] tablet (15 st ) 15 MG 22:14: 3D mg total) Hospi ta immediate 00 by mouth 3 l release (three) tablet times a day .acute pain. Max Daily Amount: 45 mg gabapentin 2022-0 Yes 600mg Q.84992552 Take 1 [facility] (NEURONTIN) - [id number] tablet st 600 mg 22:14: 3D (600 [...] (two) times a day. traMADoL 2022-0 Yes 95043 50mg Q.5D Take 1 [facility] (ULTRAM) 50 8-28 tablet (50 st mg tablet 22:14: mg total) Hos le[facility] 00 by mouth 2 l (two) times a day .acute pain. oxyCODone 2022-0 Yes 18812 15mg Q.72492135 Take 1 [facility] (ROXICODONE -28 [id number] tablet (15 st ) 15 MG 22:14: 3D mg total) Hospi ta immediate 00 by mouth 3 l release (three) tablet times a day .acute pain. Max Daily Amount: 45 mg gabapentin 2021-0 Yes 600mg Q.[id number] Take 1 [facility] (NEURONTIN) 06-[id number] 600 mg 22:14: 3D (600 mg Hospita tablet 00 total) by l mouth 3 (three) times a day. diclofenac 2021-0 Yes 75mg QD Take 1 [facility] (VOLTAREN) 06-07 tablet (75 st 75 MG EC 22:14: mg total) [facility]osp [facility] tablet 00 by mouth l daily. vortioxetin 2021-0 [...] 10 mg 00 :00 l tablet vortioxetin 2022-0 2022- No 10mg QD Take 10 mg [...] mouth st MG tablet 18:45: 00:00 daily. [facility] 51 :00 l sertraline 2022-0 2022- No 50mg QD Take 50 mg [facility] (ZOLOFT) 50 06-06- by mouth st MG tablet 18:45: 00:00 daily. [facility] 51 :00 l sertraline 2022-0 2022- No 50mg QD Take 50 mg [facility] (ZOLOFT) 50 06-06- by mouth st MG tablet 18:45: 00:00 daily. [facility] 51 :00 l sertraline 2022-0 2022- No 50mg QD Take 50 mg [facility] (ZOLOFT) 50 06-[address] MG tablet 18:45: 00:00 daily. [facility] 51 :00 l sertraline 2022-0 2022- No 50mg QD Take 50 mg [facility] (ZOLOFT) 50 06-[address] MG tablet 18:45: 00:00 daily. [facility] 51 :00 l sertraline 2-0 2022- No 50mg QD Take 50 mg [facility] (ZOLOFT) 50 06-[address] MG tablet 18:45: 00:00 daily. [facility] 51 :00 l sertraline 2022-0 2022- No 50mg QD Take 50 mg [facility] (ZOLOFT) 50 06-06- by mouth st MG tablet 18:45: 00:00 daily. [facility] 51 :00 l sertraline 2022-0 2022- No 50mg QD Take 50 mg [facility] (ZOLOFT) 50 06-[address] MG tablet 18:45: 00:00 daily. [facility] 51 :00 l sertraline 2022-0 2022- No 50mg QD Take 50 mg [facility] (ZOLOFT) 50 06-06- by mouth st MG tablet 18:45: 00:00 daily. [facility] 51 :00 l sertraline 2022-0 2022- No 50mg QD Take 50 mg [facility] (ZOLOFT) 50 06-06- by mouth st MG tablet 18:45: 00:00 daily. [facility] 51 :00 l sertraline 2022-0 2022- No 50mg QD Take 50 mg [facility] (ZOLOFT) 50 06-[address] MG tablet 18:45: 00:00 daily. [facility] 51 :00 l sertraline 2022-0 2022- No 50mg QD Take 50 mg [facility] (ZOLOFT) 50 06-[address] MG tablet 18:45: 00:00 daily. [facility] 51 :00 l sertraline 2022-0 2022- No 50mg QD Take 50 mg [facility] (ZOLOFT) 50 06-[address] MG tablet 18:45: 00:00 daily. [facility] 51 :00 l sertraline 2022-0 2022- No 50mg QD Take 50 mg [facility] (ZOLOFT) 50 06-[address] MG tablet 18:45: 00:00 daily. [facility] 51 :00 l sertraline 2022-0 2022- No 50mg QD Take 50 mg [facility] (ZOLOFT) 50 06-[address] MG tablet 18:45: 00:00 daily. [facility] 51 :00 l sertraline 2022-0 2022- No 50mg QD Take 50 mg [facility] (ZOLOFT) 50 06-[address] MG tablet 18:45: 00:00 daily. [facility] 51 :00 l sertraline 2022-0 2022- No 50mg QD Take 50 mg [facility] (ZOLOFT) 50 06-[address] MG tablet 18:45: 00:00 daily. [facility] 51 :00 l sertraline 2022-0 2022- No 50mg QD Take 50 mg [facility] (ZOLOFT) 50 06-[address] MG tablet 18:45: 00:00 daily. [facility] 51 :00 l sertraline 2022-0 2022- No 50mg QD Take 50 mg [facility] (ZOLOFT) 50 06-[address] MG tablet 18:45: 00:00 daily. [facility] 51 :00 l sertraline 2022-0 2022- [...] daily. [facility] 51 :00 l methylpheni 2022-0 2022- No [...] before l breakfast. clonAZEPAM 2021- No 1mg Q.38420392 Take 1 mg [facility] (KlonoPIN) 06-06 [id number] by mouth 3 [address] 1 MG tablet 18:44: 00:00 3D (three) [facility] 34 :00 times a l day. clonAZEPAM 2021- No 1mg Q.[id number] Take 1 mg [facility] (KlonoPIN) 06-06 [id number] by mouth 3 st 1 MG tablet 18:44: 00:00 3D (three) [facility] 34 :00 times a l day. clonAZEPAM 2021-2021- No 1mg Q.06835745 Take 1 mg [facility] (KlonoPIN) 06-06 [id number] by mouth 3 [address] 1 MG tablet 18:44: 00:00 3D (three) [facility] 34 :00 times a l day. clonAZEPAM 2022-0 2022- No 1mg Q.25209798 Take 1 mg [facility] (KlonoPIN) 06-06- [id number] by mouth 3 st 1 MG tablet 18:44: 00:00 3D (three) [facility] 34 :00 times a l day. clonAZEPAM 2022-0 2022- No 1mg Q.07357910 Take 1 mg [facility] (KlonoPIN) 06-06- [id number] by mouth 3 st 1 MG tablet 18:44: 00:00 3D (three) [facility] 34 :00 times a l day. clonAZEPAM 2022-0 2022- No 1mg Q.23953808 Take 1 mg [facility] (KlonoPIN) 06-06 [id number] by mouth 3 [address] 1 MG tablet 18:44: 00:00 3D (three) [facility] 34 :00 times a l day. clonAZEPAM 2022-0 2022- No 1mg Q.14555152 Take 1 mg [facility] (KlonoPIN) 06-06- [id number] by mouth 3 st 1 MG tablet 18:44: 00:00 3D (three) [facility] 34 :00 times a l day. clonAZEPAM 2022-0 2022- No 1mg Q.37898087 Take 1 mg [facility] (KlonoPIN) 06-06- [id number] by mouth 3 st 1 MG tablet 18:44: 00:00 3D (three) [facility] 34 :00 times a l day. clonAZEPAM 2022-0 2022- No 1mg Q.79049997 Take 1 mg [facility] (KlonoPIN) 06-06- [id number] by mouth 3 st 1 MG tablet 18:44: 00:00 3D (three) [facility] 34 :00 times a l day. clonAZEPAM 2022-0 2022- No 1mg Q.11531033 Take 1 mg [facility] (KlonoPIN) 06-06- [id number] by mouth 3 st 1 MG tablet 18:44: 00:00 3D (three) [facility] 34 :00 times a l day. clonAZEPAM 2022-0 2022- No 1mg Q.24934408 Take 1 mg [facility] (KlonoPIN) 06-06 [id number] by mouth 3 [address] 1 MG tablet 18:44: 00:00 3D (three) [facility] 34 :00 times a l day. clonAZEPAM 2022-0 2022- No 1mg Q.[id number] Take 1 mg [facility] (KlonoPIN) 06-06 [id number] by mouth 3 [facility] 1 MG tablet 18:44: 00:00 3D (three) [facility] 34 :00 times a l day. clonAZEPAM 2022-0 2022- No 1mg Q.10531828 Take 1 mg [facility] (KlonoPIN) 06-06 [id number] by mouth 3 [address] 1 MG tablet 18:44: 00:00 3D (three) [facility] 34 :00 times a l day. clonAZEPAM 2022-0 2022- No 1mg Q.95951700 Take 1 mg [facility] (KlonoPIN) 06-06 [id number] by mouth 3 st 1 MG tablet 18:44: 00:00 3D (three) [facility] 34 :00 times a l day. clonAZEPAM 2022-0 2022- No 1mg Q.22871263 Take 1 mg [facility] (KlonoPIN) 06-06 [id number] by mouth 3 [facility] 1 MG tablet 18:44: 00:00 3D (three) [facility] 34 :00 times a l day. clonAZEPAM 2022-0 2022- No 1mg Q.[id number] Take 1 mg [facility] (KlonoPIN) 06-06 [id number] by mouth 3 [address] 1 MG tablet 18:44: 00:00 3D (three) [facility] 34 :00 times a l day. clonAZEPAM 2022-0 2022- No 1mg Q.13990007 Take 1 mg [facility] (KlonoPIN) 06-06 [id number] by mouth 3 [address] 1 MG tablet 18:44: 00:00 3D (three) [facility] 34 :00 times a l day. clonAZEPAM 2022-0 2022- No 1mg Q.55444411 Take 1 mg [facility] (KlonoPIN) 06-06 [id number] by mouth 3 [address] 1 MG tablet 18:44: 00:00 3D (three) [facility] 34 :00 times a l day. clonAZEPAM 2022-0 2022- No 1mg Q.25229630 Take 1 mg [facility] (KlonoPIN) 06-06 [id number] by mouth 3 [address] 1 MG tablet 18:44: 00:00 3D (three) [facility] 34 :00 times a l day. clonAZEPAM 2022-0 2022- No 1mg Q.59903913 Take 1 mg [facility] (KlonoPIN) 06-06- [id number] by mouth 3 st 1 MG tablet 18:44: 00:00 3D (three) [facility] 34 :00 times a l day. clonAZEPAM 2-0 2022- No 1mg Q.[id number] Take 1 mg [facility] (KlonoPIN) 06-06 [id number] by mouth 3 [address] 1 MG tablet 18:44: 00:00 3D (three) [facility] 34 :00 times a l day. clonAZEPAM 2021-0 2- No 1mg Q.[id number] Take 1 mg [facility] (KlonoPIN) 06-06 [id number] [address] mouth [address] 1 MG tablet 18:44: 00:00 3D (three) [facility] 34 :00 times a l day. clonAZEPAM 2022-0 2022- No 1mg Q.[id number] Take 1 mg [facility] (KlonoPIN) 06-06 [id number] by mouth 3 [address] 1 MG tablet 18:44: 00:00 3D (three) [facility] 34 :00 times a l day. clonAZEPAM 2-0 2022- No 1mg Q.45959665 Take 1 mg [facility] (KlonoPIN) 06-06- [id number] by mouth 3 st 1 MG tablet 18:44: 00:00 3D (three) [facility] 34 :00 times a l day. levothyroxi 2021-0 2022- No 75ug QD Take 75 [facility] ne 06-06-[address] (SYNTHROID, 18:44: 00:00 mouth [...] 20mg QD Take 1 [facility] kathleen (DELTASONE) 06-06- tablet (20 s t 20 mg 00:00: 04:59 mg total) [facility] a tablet 00 :00 by mouth l daily for 5 days. predniSONE 2021-2021- No 20mg QD Take 1 [facility] kathleen (DELTASONE) 06-06- tablet (20 s t 20 mg 00:00: [...] l daily for 5 days. predniSONE 2021-0 2- No 20mg QD Take 1 [facility] k[facility]leen (DELTASONE) 06-06 tablet (20 s t 20 mg 00:00: 04:59 mg total) Hospit a tablet 00 :00 by mouth l daily for 5 days. levothyroxi 0 Yes [id number] 88ug Take 1 [facility] m[facility] 8-24 tablet by [facility] o f tablet 00:00: mouth [place] 00 every Medical morning. [facility] levothyroxi 2021-0 Yes [id number] 88ug Take 1 [facility] 88 mcg 8-24 tablet by [facility]y o f tablet 00:00: mouth [place] 00 every Medical morning. [facility] levothyroxi 2021-0 Yes [id number] 88ug Take 1 [facility] 88 mcg 8-24 tablet by ity o f tablet 00:00: mouth [place] 00 every Medical morning. [facility] levothyroxi 2021-0 Yes [id number] 88ug Take 1 [facility] 88 mcg 8-24 tablet by ity o f tablet 00:00: mouth [place] 00 every Medical morning. [facility] levothyroxi 2021-0 Yes [id number] 88ug Take 1 [facility] 88 mcg 8-24 tablet by ity o f tablet 00:00: mouth [place] 00 every Medical morning. [facility] levothyroxi 2021-0 Yes [id number] 88ug Take 1 [facility] 88 mcg 8-24 tablet by ity o f tablet 00:00: mouth [place] 00 every Medical morning. [facility] levothyroxi 2021-0 Yes [id number] 88ug Take 1 [facility] 88 mcg 8-24 tablet by ity o f tablet 00:00: mouth [place] 00 every Medical morning. [facility] levothyroxi 2021-0 Yes [id number] 88ug Take 1 [facility] 88 mcg 8-24 tablet by ity o f tablet 00:00: mouth [place] 00 every Medical morning. [facility] levothyroxi 2021-0 Yes [id number] 88ug Take 1 [facility] 88 mcg 8-24 tablet by ity o f tablet 00:00: mouth [place] 00 every Medical morning. [facility] levothyroxi 2021-0 Yes [id number] 88ug Take 1 [facility] 88 mcg 8-24 tablet by ity o f tablet 00:00: mouth [place] 00 every Medical morning. [facility] levothyroxi 2021-0 Yes [id number] 88ug Take 1 [facility] 88 mcg 8-24 tablet by ity o f tablet 00:00: mouth [place] 00 every Medical morning. [facility] levothyroxi 2021-0 Yes [id number] 88ug Take 1 [facility] 88 mcg 8-24 tablet by [facility] f tablet 00:00: mouth [place] 00 every Medical morning. [facility] levothyroxi 2021-0 Yes [id number] 88ug Take 1 [facility] 88 mcg 8-24 tablet by [facility] o f tablet 00:00: mouth [place] 00 every Medical morning. [facility] levothyroxi 2021-0 Yes [id number] 88ug Take 1 [facility] 88 mcg 8-24 tablet by [facility] f tablet 00:00: mouth [place] 00 every Medical morning. [facility] levothyroxi 2021-0 Yes [id number] 88ug Take 1 [facility] 88 mcg 8-24 tablet by [facility] f tablet 00:00: mouth [place] 00 every Medical morning. [facility] levothyroxi 2021-0 Yes [id number] 88ug Take 1 [facility] 88 mcg 8-24 tablet by [facility] f tablet 00:00: mouth [place] 00 every Medical morning. [facility] levothyroxi 2022-0 Yes [id number] 88ug Take 1 [facility] 88 mcg 8-24 tablet by [facility] o f tablet 00:00: mouth [place] 00 every Medical morning. [facility] levothyroxi 2021-0 Yes [id number] 88ug Take 1 [facility] 88 mcg 8-24 tablet by [facility] o f tablet 00:00: mouth [place] 00 every Medical morning. [facility] levothyroxi 2021-0 Yes [id number] 88ug Take 1 [facility] 88 mcg 8-24 tablet by [facility] f tablet 00:00: mouth [place] 00 every Medical morning. [facility] levothyroxi 2021-0 Yes [id number] 88ug Take 1 [facility] 88 mcg 8-24 tablet by [facility] o f tablet 00:00: mouth [place] 00 every Medical morning. [facility] levothyroxi 2021-0 Yes [id number] 88ug Take 1 [facility] 88 mcg 8-24 tablet by [facility] o f tablet 00:00: mouth [place] 00 every Medical morning. [facility] levothyroxi 2021-0 3- No [id number] 88ug Take 1 [facility] 88 mcg 8-24 02-14 tablet by [facility] of tablet 00:00: 00:00 mouth [place] 00 :00 every Medical morning. [facility] diclofenac 2021-0 Yes 75mg Q.5D Take 75 mg [facility] (Voltaren) 8-22 [facility] 75 MG EC 00:00: in the tablet 00 morning and 75 mg before bedtime. oxyCODONE 2022-0 Yes 15mg [id number] Take 15 mg [facility] (Roxicodone 8-22 [id number] by [facility] ) 15 MG 00:00: 3D (three) immediate 00 times a release day if tablet needed. diclofenac 2022-0 Yes 75mg Q.5D Take 75 mg [facility] (Voltaren) 8-22 [facility] 75 MG EC 00:00: in the tablet 00 morning and 75 mg before bedtime. oxyCODONE 2022-0 Yes 15mg Q.[id number] Take 15 mg [facility] (Roxicodone 8-22 [id number] by mouth [facility] ) 15 MG 00:00: 3D (three) immediate 00 times a release day if tablet needed. diclofenac 2022-0 Yes 75mg Q.5D Take 75 mg [facility] (Voltaren) 8-22 [facility] 75 MG EC 00:00: in the tablet 00 morning and 75 mg before bedtime. oxyCODONE 2022-0 Yes 15mg Q.32304620 Take 15 mg [facility] (Roxicodone 8-22 [id number] by mouth [facility] ) 15 MG 00:00: 3D (three) immediate 00 times a release day if tablet needed. diclofenac 2022-0 Yes 75mg Q.5D Take 75 mg [facility] (Voltaren) 8-22 [facility] 75 MG EC 00:00: in the tablet 00 morning and 75 mg before bedtime. oxyCODONE 2022-0 Yes 15mg Q.[id number] Take 15 mg [facility] (Roxicodone 8-22 [id number] by mouth [facility] ) 15 MG 00:00: 3D (three) immediate 00 times a release day if tablet needed. diclofenac 2022-0 Yes 75mg Q.5D Take 75 mg [facility] (Voltaren) 8-22 by mouth [facility] 75 MG EC 00:00: in the tablet 00 morning and 75 mg before bedtime. oxyCODONE 2022-0 Yes 15mg Q.[id number] Take 15 mg [facility] (Roxicodone 8-22 [id number] by mouth [facility] ) 15 MG 00:00: 3D (three) immediate 00 times a release day if tablet needed. diclofenac 2022-0 Yes 75mg Q.5D Take 75 mg [facility] (Voltaren) 8-22 by mouth [facility] 75 MG EC 00:00: in the tablet 00 morning and 75 mg before bedtime. oxyCODONE 2022-0 Yes 15mg Q.51193947 Take 15 mg [facility] (Roxicodone 8-22 [id number] by mouth [facility] ) 15 MG 00:00: 3D (three) immediate 00 times a release day if tablet needed. diclofenac 2022-0 Yes 75mg Q.5D Take 75 mg [facility] (Voltaren) 8-22 by mouth [facility] 75 MG EC 00:00: in the tablet 00 morning and 75 mg before bedtime. diclofenac 2022-0 Yes 75mg Q.5D Take 75 mg [facility] (Voltaren) 8-22 by mouth [facility] 75 MG EC 00:00: in the tablet 00 morning and 75 mg before bedtime. oxyCODONE 2022-0 Yes 15mg Q.87149046 Take 15 mg [facility] (Roxicodone 8-22 [id number] by mouth [facility] ) 15 MG 00:00: 3D (three) immediate 00 times a release day if tablet needed. diclofenac 2022-0 Yes 75mg Q.5D Take 75 mg [facility] (Voltaren) 8-22 [facility] 75 MG EC 00:00: in the tablet 00 morning and 75 mg before bedtime. oxyCODONE 2022-0 Yes 15mg Q.45619262 Take 15 mg [facility] (Roxicodone 8-22 [id number] by mouth [facility] ) 15 MG 00:00: 3D (three) immediate 00 times a release day if tablet needed. oxyCODONE 2022-0 Yes 15mg Q.46120747 Take 15 mg [facility] (Roxicodone 8-22 [id number] by mouth [facility] ) 15 MG 00:00: 3D (three) immediate 00 times a release day if tablet needed. diclofenac 2022-0 Yes 75mg Q.5D Take 75 mg [facility] (Voltaren) 8-22 by [facility] 75 MG EC 00:00: in the tablet 00 morning and 75 mg before bedtime. oxyCODONE 2022-0 Yes 15mg Q.33459353 Take 15 mg [facility] (Roxicodone 8-22 [id number] by mouth [facility] ) 15 MG 00:00: 3D (three) immediate 00 times a release day if tablet needed. diclofenac 2022-0 Yes 75mg Q.5D Take 75 mg [facility] (Voltaren) 8-22 by mouth [facility] 75 MG EC 00:00: in the tablet 00 morning and 75 mg before bedtime. oxyCODONE 2022-0 Yes 15mg Q.30689670 Take 15 mg [facility] (Roxicodone 8-22 [id number] by mouth [facility] ) 15 MG 00:00: 3D (three) immediate 00 times a release day if tablet needed. diclofenac 2022-0 Yes 75mg Q.5D Take 75 mg [facility] (Voltaren) 8-22 by mouth [facility] 75 MG EC 00:00: in the tablet 00 morning and 75 mg before bedtime. oxyCODONE 2022-0 Yes 15mg Q.29705364 Take 15 mg [facility] (Roxicodone 06-01 [id number] by mouth 3 [facility] ) 15 MG 00:00: 3D (three) immediate 00 times a release day if tablet needed. diclofenac 2022-0 Yes 75mg Q.5D Take 75 mg [facility] (Voltaren) 8- by mouth [facility]alt [facility] 75 MG EC 00:00: in the tablet 00 morning and 75 mg before bedtime. oxyCODONE 2022-0 Yes 15mg Q.57821977 Take 15 mg [facility] (Roxicodone 06-01 [id number] by mouth 3 [facility] ) 15 MG 00:00: 3D (three) immediate 00 times a release day if tablet needed. buPROPion 2022-0 Yes TAKE 1 [facility] XL 8-19 TABLET BY [facility] (Wellbutrin 00:00: MOUTH XL) 150 MG 00 EVERY 24 hr MORNING tablet WITH THE 300MG buPROPion 2022-0 Yes TAKE 1 [facility] XL 8-19 TABLET BY [facility] (Wellbutrin 00:00: MOUTH XL) 150 MG 00 EVERY 24 hr MORNING tablet WITH THE 300MG buPROPion 2022-0 Yes TAKE 1 [facility] XL 8-19 TABLET BY Health (Wellbutrin 00:00: MOUTH XL) 150 MG 00 EVERY 24 hr MORNING tablet WITH THE 300MG buPROPion 2022-0 Yes TAKE 1 [facility] XL 8-19 TABLET BY [facility] (Wellbutrin 00:00: MOUTH XL) 150 MG [...] TAKE 1 UT XL 8-19 TABLET BY [facility] (Wellbutrin 00:00: MOUTH XL) 150 MG 00 EVERY 24 hr MORNING tablet WITH THE 300MG buPROPion 2022-0 Yes TAKE 1 [facility] XL 8-19 TABLET BY [facility] (Wellbutrin 00:00: MOUTH XL) 150 MG [...] s mg tablet 8-10 ity of 00:00: [place] 00 [facility] Branch traMADoL 50 2-0 Yes Univer s mg tablet 8-10 ity of 00:00: [place] [facility] traMADoL 50 2-0 Yes Univer s mg tablet 8-10 ity of 00:00: [place] [facility] traMADoL 50 2-0 Yes Univer s mg tablet 8-10 ity of 00:00: [place] [facility] traMADoL 50 2-0 Yes Univer s mg tablet 8-10 ity of 00:00: [place] [facility] traMADoL 50 2-0 Yes Univer s mg tablet 8-10 ity of 00:00: [place] [facility] traMADoL 50 2-0 Yes Univer s mg tablet 8-10 ity of 00:00: [place] 00 Medical Branch traMADoL 50 2-0 Yes Univer s mg tablet 8-10 ity of 00:00: [place] 00 [facility] Branch traMADoL 50 2-0 Yes Univer s mg tablet 8-10 ity of 00:00: [place] [facility] traMADoL 50 2-0 Yes Univer s mg tablet 8-10 ity of 00:00: [place] 00 Medical Branch traMADoL 50 2-0 Yes Univer s mg tablet 8-10 ity of 00:00: [place] 00 Medical Branch traMADoL 50 2-0 Yes Univer s mg tablet 8-10 ity of 00:00: [address] traMADoL 50 2-0 Yes Univer s mg tablet 8-10 ity of 00:00: [address] traMADol 2-0 Yes 50mg Q.5D Take [...] mg in the evening. traMADoL 50 2021-0 2022- No Unive rs mg tablet 05-20 ity of 00:00: 00:00 [place] 00 :00 Medical Branch traMADoL 50 2021-0 2022- No Unive rs mg tablet 05-20 ity of 00:00: 00:00 [place] 00 :00 Medical Branch traMADoL 50 2021-0 2022- No Unive rs mg tablet 05-20 ity of 00:00: 00:00 [place] 00 :00 Medical Branch traMADoL 50 2021-0 2022- No Unive rs mg tablet 05-20 ity of 00:00: 00:00 [place] 00 :00 Medical Branch gabapentin 2021-0 Yes [id number] 600mg Take 1 [facility] 600 mg 8-08 tablet by ity of tablet 00:00: mouth in [place] 00 the Medical morning Branch and 1 tablet at noon and 1 tablet in the evening. gabapentin 2021-0 Yes [id number] 600mg Take 1 [facility] 600 mg 8-08 tablet by ity of tablet 00:00: mouth in [place] 00 the Medical morning Branch and 1 tablet at noon and 1 tablet in the evening. gabapentin 202-0 2022- No [id number] 600mg Take 1 [facility] 600 mg 8-05 22-09 tablet by ity of tablet 00:00: 00:00 mouth in [place] 00 :00 the Medical morning Branch and 1 tablet at noon and 1 tablet in the evening. gabapentin 202-0 2022- No [id number] 600mg Take 1 [facility] 600 mg 8-05 22- tablet by ity of tablet 00:00: 00:00 mouth in [place] 00 :00 the Medical morning Branch and [...] Medical DAILY FOR Branch 27 DAYS diclofenac Yes TAKE 1 Unive rs [...] DAILY FOR Branch 29 DAYS diclofenac 2021-0 2022- No TAKE 1 [facility] ers 50 mg EC 6-27 - TABLET BY ity o f tablet 00:00: 00:00 MOUTH [place] 00 :00 TWICE Medical DAILY FOR Branch 29 DAYS diclofenac 2021-0 2022- No TAKE 1 Univ ers 50 mg EC 6-27 02- TABLET BY ity o f tablet 00:00: 00:00 MOUTH [place] 00 :00 TWICE Medical DAILY FOR Branch 29 DAYS diclofenac 2021-2022- No TAKE 1 Univ ers 50 mg EC 04-06 TABLET BY ity o f tablet 00:00: 00:00 MOUTH [place] 00 :00 TWICE Medical DAILY FOR Branch 29 DAYS diclofenac 2021-2022- No TAKE 1 [facility] ers 50 mg EC 04-06 TABLET BY ity o f tablet 00:00: 00:00 MOUTH [place] 00 :00 TWICE Medical DAILY FOR Branch 29 DAYS ibuprofen 2021-2021- No 600mg Take [address] [facility] (ADVIL,MOTR 5-14 05-24 [facility] 600 MG 00:00: 23:59 (600 mg Med ical tablet 00 :00 total) by Center mouth every 6 (six) hours as needed for Pain for up to 10 days. ibuprofen 2021-2021- No 600mg Take [address] [facility] (ADVIL,MOTR 5-14 05-24 [facility]) 600 MG 00:00: 23:59 (600 mg Med ical tablet 00 :00 total) by Center mouth every 6 (six) hours as needed for Pain for up to 10 days. ibuprofen 2021-2021- No 600mg Take [address] [facility] (ADVIL,MOTR 5-14 05-24 [facility]) 600 MG 00:00: 23:59 (600 mg Med ical tablet 00 :00 total) by Center mouth every 6 (six) hours as needed for Pain for up to 10 days. ibuprofen 2021-2021- No 600mg Take [address] [facility] (ADVIL,MOTR 5-14 05-24 [facility] 600 MG 00:00: 23:59 (600 mg Med ical tablet 00 :00 total) by Center mouth every 6 (six) hours as needed for Pain for up to 10 days. ibuprofen 2021-2021- No 600mg Take [address] [facility] (ADVIL,MOTR 5-14 05-24 [facility]) 600 MG 00:00: 23:59 (600 mg Med ical tablet 00 :00 total) by Center mouth every 6 (six) hours as needed for Pain for up to 10 days. ibuprofen 2021-2021- No 600mg Take [facility] [...] (Toprol-XL) 00 100 MG 24 hr tablet liothyronin 2022-0 Yes 5ug Take 5 mcg [...] 00:00: (one) time tablet 00 each day. rosuvastati 2022-0 Yes 20mg QD Take 20 [...] (one) time tablet 00 each day. omeprazole Yes [id number] 20mg Take 1 [facility] 20 mg 1-11 capsule by ity of capsule 00:00: mouth [place] 00 daily. Medical Branch liothyronin Yes [id number] 5ug Take 1 [facility] e 5 mcg 1-11 tablet by ity of tablet 00:00: mouth 2 [place] (two) Medical times Branch daily. metoprolol 0 Yes [id number] 100mg Take 1 [facility] succinate 1-11 tablet by ity o f XL 100 mg 00:00: mouth [place] 24 hr 00 daily. Medical tablet Branch felodipine 0 Yes [id number] 5mg Take 1 U nivers 5 mg 24 hr 1-11 tablet by ity of tablet 00:00: mouth at [place] 00 bedtime. Medical Branch rosuvastati Yes [id number] 20mg Take 1 [facility] n 20 mg 1-11 tablet by ity of tablet 00:00: mouth at [place] 00 bedtime. Medical Branch omeprazole 2021-0 Yes [id number] 20mg Take 1 [facility] 20 mg 1-11 capsule by ity of capsule 00:00: mouth [place] 00 daily. Medical Branch liothyronin 0 Yes [id number] 5ug Take 1 [facility] e 5 mcg 1-11 tablet by ity of tablet 00:00: mouth 2 [place] (two) Medical times Branch daily. metoprolol 2021-0 Yes [id number] 100mg Take 1 [facility] succinate 1-11 tablet by ity o f XL 100 mg 00:00: mouth [place] 24 hr 00 daily. Medical tablet Branch felodipine 2021-0 Yes [id number] 5mg Take 1 U nivers 5 mg 24 hr 1-11 tablet by ity of tablet 00:00: mouth at [place] [address] bedtime. Medical Branch rosuvastati Yes [id number] 20mg Take 1 [facility] n 20 mg 1-11 tablet by ity of tablet 00:00: mouth at [place] 00 bedtime. Medical Branch omeprazole 2021-0 Yes [id number] 20mg Take 1 [facility] 20 mg 1-11 capsule by ity of capsule 00:00: mouth [place] 00 daily. Medical Branch liothyronin 0 Yes [id number] 5ug Take 1 [facility] e 5 mcg 1-11 tablet by ity of tablet 00:00: mouth 2 [place] (two) Medical times Branch daily. metoprolol 0 Yes [id number] 100mg Take 1 [facility] succinate 1-11 tablet by ity o f XL 100 mg 00:00: mouth [place] 24 hr 00 daily. Medical tablet Branch felodipine Yes [id number] 5mg Take 1 U nivers 5 mg 24 hr 1-11 tablet by ity of tablet 00:00: mouth at [place] 00 bedtime. Medical Branch rosuvastati 0 Yes [id number] 20mg Take 1 [facility] n 20 mg 1-11 tablet by ity of tablet 00:00: mouth at [place] 00 bedtime. Medical Branch omeprazole 0 Yes [id number] 20mg Take 1 [facility] 20 mg 1-11 capsule by ity of capsule 00:00: mouth [place] 00 daily. Medical Branch liothyronin 0 Yes [id number] 5ug Take 1 [facility] e 5 mcg 1-11 tablet by ity of tablet 00:00: mouth 2 [place] (two) Medical times Branch daily. metoprolol 2021-0 Yes [id number] 100mg Take 1 [facility] succinate 1-11 tablet by ity o f XL 100 mg 00:00: mouth [place] 24 hr 00 daily. Medical tablet Branch felodipine 0 Yes [id number] 5mg Take 1 U nivers 5 mg 24 hr 1-11 tablet by ity of tablet 00:00: mouth at [place] 00 bedtime. Medical Branch rosuvastati 0 Yes [id number] 20mg Take 1 [facility] n 20 mg 1-11 tablet by ity of tablet 00:00: mouth at [place] 00 bedtime. Medical Branch omeprazole 2021-0 Yes [id number] 20mg Take 1 [facility] 20 mg 1-11 capsule by ity of capsule 00:00: mouth [place] 00 daily. Medical Branch liothyronin 0 Yes [id number] 5ug Take 1 [facility] e 5 mcg 1-11 tablet by ity of tablet 00:00: mouth 2 (two) Medical times Branch daily. metoprolol 2021-0 Yes [id number] 100mg Take 1 [facility] succinate 1-11 tablet by ity o f XL 100 mg 00:00: mouth [place] 24 hr 00 daily. Medical tablet Branch rosuvastati 2021-0 Yes [id number] 20mg Take 1 [facility] n 20 mg 1-11 tablet by ity of tablet 00:00: mouth at [place] 00 bedtime. Medical Branch omeprazole 0 Yes [id number] 20mg Take 1 [facility] 20 mg 1-11 capsule by ity of capsule 00:00: mouth [place] 00 daily. Medical Branch liothyronin 0 Yes [id number] 5ug Take 1 [facility] e 5 mcg 1-11 tablet by ity of tablet 00:00: mouth 2 [place] (two) Medical times Branch daily. metoprolol 2021-0 Yes [id number] 100mg Take 1 [facility] succinate 1-11 tablet by ity o f XL 100 mg 00:00: mouth [place] 24 hr 00 daily. Medical tablet Branch rosuvastati 0 Yes [id number] 20mg Take 1 [facility] n 20 mg 1-11 tablet by ity of tablet 00:00: mouth at [place] 00 bedtime. Medical Branch omeprazole 0 Yes [id number] 20mg Take 1 [facility] 20 mg 1-11 capsule by ity of capsule 00:00: mouth [place] 00 daily. Medical Branch liothyronin 0 Yes [id number] 5ug Take 1 [facility] e 5 mcg 1-11 tablet by ity of tablet 00:00: mouth 2 [place] (two) Medical times Branch daily. metoprolol 2021-0 Yes [id number] 100mg Take 1 [facility] succinate 1-11 tablet by ity o f XL 100 mg 00:00: mouth [place] 24 hr 00 daily. Medical tablet Branch rosuvastati 0 Yes [id number] 20mg Take 1 [facility] n 20 mg 1-11 tablet by ity of tablet 00:00: mouth at [place] 00 bedtime. Medical Branch omeprazole 2021-0 Yes [id number] 20mg Take 1 [facility] 20 mg 1-11 capsule by ity of capsule 00:00: mouth [place] 00 daily. Medical Branch liothyronin 0 Yes [id number] 5ug Take 1 [facility] e 5 mcg 1-11 tablet by ity of tablet 00:00: mouth 2 (two) Medical times Branch daily. metoprolol 2021-0 Yes [id number] 100mg Take 1 [facility] succinate 1-11 tablet by ity o f XL 100 mg 00:00: mouth [place] 24 hr 00 daily. Medical tablet Branch rosuvastati 0 Yes [id number] 20mg Take 1 [facility] n 20 mg 1-11 tablet by ity of tablet 00:00: mouth at [place] 00 bedtime. Medical Branch omeprazole 0 Yes [id number] 20mg Take 1 [facility] 20 mg 1-11 capsule by ity of capsule 00:00: mouth [place] 00 daily. Medical Branch liothyronin 0 Yes [id number] 5ug Take 1 [facility] e 5 mcg 1-11 tablet by ity of tablet 00:00: mouth 2 [place] (two) Medical times Branch daily. metoprolol 0 Yes [id number] 100mg Take 1 [facility] succinate 1-11 tablet by ity o f XL 100 mg 00:00: mouth [place] 24 hr 00 daily. Medical tablet Branch rosuvastati 0 Yes [id number] 20mg Take 1 [facility] n 20 mg 1-11 tablet by ity of tablet 00:00: mouth at [place] 00 bedtime. Medical Branch omeprazole 0 Yes [id number] 20mg Take 1 [facility] 20 mg 1-11 capsule by ity of capsule 00:00: mouth [place] 00 daily. Medical Branch liothyronin 0 Yes [id number] 5ug Take 1 [facility] e 5 mcg 1-11 tablet by ity of tablet 00:00: mouth 2 [place] (two) Medical times Branch daily. metoprolol 2021-0 Yes [id number] 100mg Take 1 [facility] succinate 1-11 tablet by ity o f XL 100 mg 00:00: mouth [place] 24 hr 00 daily. Medical tablet Branch rosuvastati 2021-0 Yes [id number] 20mg Take 1 [facility] n 20 mg 1-11 tablet by ity of tablet 00:00: mouth at [place] 00 bedtime. Medical Branch omeprazole 2021-0 Yes [id number] 20mg Take 1 [facility] 20 mg 1-11 capsule by ity of capsule 00:00: mouth [place] 00 daily. Medical Branch liothyronin Yes [id number] 5ug Take 1 [facility] e 5 mcg 1-11 tablet by ity of tablet 00:00: mouth 2 [place] (two) Medical times Branch daily. metoprolol 0 Yes [id number] 100mg Take 1 [facility] succinate 1-11 tablet by ity o f XL 100 mg 00:00: mouth [place] 24 hr 00 daily. Medical tablet Branch rosuvastati 0 Yes [id number] 20mg Take 1 [facility] n 20 mg 1-11 tablet by ity of tablet 00:00: mouth at [place] 00 bedtime. Medical Branch omeprazole 0 Yes [id number] 20mg Take 1 [facility] 20 mg 1-11 capsule by ity of capsule 00:00: mouth [place] 00 daily. Medical Branch liothyronin Yes [id number] 5ug Take 1 [facility] e 5 mcg 1-11 tablet by ity of tablet 00:00: mouth 2 (two) Medical times Branch daily. metoprolol 0 Yes [id number] 100mg Take 1 [facility] succinate 1-11 tablet by ity o f XL 100 mg 00:00: mouth [place] 24 hr 00 daily. Medical tablet Branch rosuvastati 0 Yes [id number] 20mg Take 1 [facility] n 20 mg 1-11 tablet by ity of tablet 00:00: mouth at [place] 00 bedtime. Medical Branch omeprazole 0 Yes [id number] 20mg Take 1 [facility] 20 mg 1-11 capsule by ity of capsule 00:00: mouth [place] 00 daily. Medical Branch liothyronin 0 Yes [id number] 5ug Take 1 [facility] e 5 mcg 1-11 tablet by ity of tablet 00:00: mouth 2 [place] (two) Medical times Branch daily. metoprolol 2021-0 Yes [id number] 100mg Take 1 [facility] succinate 1-11 tablet by ity o f XL 100 mg 00:00: mouth [place] 24 hr 00 daily. Medical tablet Branch rosuvastati 0 Yes [id number] 20mg Take 1 [facility] n 20 mg 1-11 tablet by ity of tablet 00:00: mouth at [place] 00 bedtime. Medical Branch omeprazole 2021-0 Yes [id number] 20mg Take 1 [facility] 20 mg 1-11 capsule by ity of capsule 00:00: mouth [place] 00 daily. Medical Branch liothyronin 0 Yes [id number] 5ug Take 1 [facility] e 5 mcg 1-11 tablet by ity of tablet 00:00: mouth 2 (two) Medical times Branch daily. metoprolol 2021-0 Yes [id number] 100mg Take 1 [facility] succinate 1-11 tablet by ity o f XL 100 mg 00:00: mouth [place] 24 hr 00 daily. Medical tablet Branch rosuvastati 0 Yes [id number] 20mg Take 1 [facility] n 20 mg 1-11 tablet by ity of tablet 00:00: mouth at [place] 00 bedtime. Medical Branch omeprazole 0 Yes [id number] 20mg Take 1 [facility] 20 mg 1-11 capsule by ity of capsule 00:00: mouth [place] 00 daily. Medical Branch liothyronin 0 Yes [id number] 5ug Take 1 [facility] e 5 mcg 1-11 tablet by ity of tablet 00:00: mouth 2 (two) Medical times Branch daily. metoprolol 0 Yes [id number] 100mg Take 1 [facility] succinate 1-11 tablet by ity o f XL 100 mg 00:00: mouth [place] 24 hr 00 daily. Medical tablet Branch rosuvastati 0 Yes [id number] 20mg Take 1 [facility] n 20 mg 1-11 tablet by ity of tablet 00:00: mouth at [place] 00 bedtime. Medical Branch omeprazole 2021-0 Yes [id number] 20mg Take 1 [facility] 20 mg 1-11 capsule by ity of capsule 00:00: mouth [place] 00 daily. Medical Branch liothyronin 0 Yes [id number] 5ug Take 1 [facility] e 5 mcg 1-11 tablet by ity of tablet 00:00: mouth 2 (two) Medical times Branch daily. metoprolol 2021-0 Yes [id number] 100mg Take 1 [facility] succinate 1-11 tablet by ity o f XL 100 mg 00:00: mouth [place] 24 hr 00 daily. Medical tablet Branch rosuvastati 0 Yes [id number] 20mg Take 1 [facility] n 20 mg 1-11 tablet by ity of tablet 00:00: mouth at [place] 00 bedtime. Medical Branch omeprazole 2021-0 Yes [id number] 20mg Take 1 [facility] 20 mg 1-11 capsule by ity of capsule 00:00: mouth [place] 00 daily. Medical Branch liothyronin 2021-0 Yes [id number] 5ug Take 1 [facility] e 5 mcg 1-11 tablet by ity of tablet 00:00: mouth 2 (two) Medical times Branch daily. metoprolol 2021-0 Yes [id number] 100mg Take 1 [facility] succinate 1-11 tablet by ity o f XL 100 mg 00:00: mouth [place] 24 hr 00 daily. Medical tablet Branch rosuvastati 2021-0 Yes [id number] 20mg Take 1 [facility] n 20 mg 1-11 tablet by ity of tablet 00:00: mouth at [place] 00 bedtime. Medical Branch omeprazole 0 Yes [id number] 20mg Take 1 [facility] 20 mg 1-11 capsule by ity of capsule 00:00: mouth [place] 00 daily. Medical Branch liothyronin 0 Yes [id number] 5ug Take 1 [facility] e 5 mcg 1-11 tablet by ity of tablet 00:00: mouth 2 (two) Medical times Branch daily. metoprolol 2021-0 Yes [id number] 100mg Take 1 [facility] succinate 1-11 tablet by ity o f XL 100 mg 00:00: mouth [place] 24 hr 00 daily. Medical tablet Branch rosuvastati 0 Yes [id number] 20mg Take 1 [facility] n 20 mg 1-11 tablet by ity of tablet 00:00: mouth at [place] 00 bedtime. Medical Branch omeprazole 2021-0 Yes [id number] 20mg Take 1 [facility] 20 mg 1-11 capsule by ity of capsule 00:00: mouth [place] 00 daily. Medical Branch liothyronin 2021-0 Yes [id number] 5ug Take 1 [facility] e 5 mcg 1-11 tablet by ity of tablet 00:00: mouth 2 [place] (two) Medical times Branch daily. metoprolol 2021-0 Yes [id number] 100mg Take 1 [facility] succinate 1-11 tablet by ity o f XL 100 mg 00:00: mouth [place] 24 hr 00 daily. Medical tablet Branch rosuvastati 2021-0 Yes [id number] 20mg Take 1 [facility] n 20 mg 1-11 tablet by ity of tablet 00:00: mouth at [place] 00 bedtime. Medical Branch omeprazole 2022-0 Yes [id number] 20mg Take 1 [facility] 20 mg 1-11 capsule by ity of capsule 00:00: mouth [place] 00 daily. Medical Branch liothyronin 0 Yes [id number] 5ug Take 1 [facility] e 5 mcg 1-11 tablet by ity of tablet 00:00: mouth 2 (two) Medical times Branch daily. metoprolol 0 Yes [id number] 100mg Take 1 [facility] succinate 1-11 tablet by ity o f XL 100 mg 00:00: mouth [place] 24 hr 00 daily. Medical tablet Branch rosuvastati 0 Yes [id number] 20mg Take 1 [facility] n 20 mg 1-11 tablet by ity of tablet 00:00: mouth at [place] 00 bedtime. Medical Branch omeprazole Yes [id number] 20mg Take 1 [facility] 20 mg 1-11 capsule by ity of capsule 00:00: mouth [place] 00 daily. Medical Branch liothyronin Yes [id number] 5ug Take 1 [facility] e 5 mcg 1-11 tablet by ity of tablet 00:00: mouth 2 (two) Medical times Branch daily. metoprolol 0 Yes [id number] 100mg Take 1 [facility] succinate 1-11 tablet by ity o f XL 100 mg 00:00: mouth [place] 24 hr 00 daily. Medical tablet Branch rosuvastati Yes [id number] 20mg Take 1 [facility] n 20 mg 1-11 tablet by ity of tablet 00:00: mouth at [place] 00 bedtime. Medical Branch omeprazole 0 Yes [id number] 20mg Take 1 [facility] 20 mg 1-11 capsule by ity of capsule 00:00: mouth [place] 00 daily. Medical Branch liothyronin 0 Yes [id number] 5ug Take 1 [facility] e 5 mcg 1-11 tablet by ity of tablet 00:00: mouth 2 [place] (two) Medical times Branch daily. metoprolol 2021-0 Yes [id number] 100mg Take 1 [facility] succinate 1-11 tablet by ity o f XL 100 mg 00:00: mouth [place] 24 hr 00 daily. Medical tablet Branch rosuvastati 0 Yes [id number] 20mg Take 1 [facility] n 20 mg 1-11 tablet by ity of tablet 00:00: mouth at [place] 00 bedtime. Medical Branch omeprazole 2021-0 Yes [id number] 20mg Take 1 [facility] 20 mg 1-11 capsule by ity of capsule 00:00: mouth [place] 00 daily. Medical Branch liothyronin 0 Yes [id number] 5ug Take 1 [facility] e 5 mcg 1-11 tablet by ity of tablet 00:00: mouth 2 [place] (two) Medical times Branch daily. metoprolol 2021-0 Yes [id number] 100mg Take 1 [facility] succinate 1-11 tablet by ity o f XL 100 mg 00:00: mouth [place] 24 hr 00 daily. Medical tablet Branch rosuvastati 0 Yes [id number] 20mg Take 1 [facility] n 20 mg 1-11 tablet by ity of tablet 00:00: mouth at [place] 00 bedtime. Medical Branch omeprazole Yes [id number] 20mg Take 1 [facility] 20 mg 1-11 capsule by ity of capsule 00:00: mouth [place] 00 daily. Medical Branch liothyronin 2021-0 Yes [id number] 5ug Take 1 [facility] e 5 mcg 1-11 tablet by ity of tablet 00:00: mouth 2 [place] (two) Medical times Branch daily. metoprolol 2021-0 Yes [id number] 100mg Take 1 [facility] succinate 1-11 tablet by ity o f XL 100 mg 00:00: mouth [place] 24 hr 00 daily. Medical tablet Branch rosuvastati 0 Yes [id number] 20mg Take 1 [facility] n 20 mg 1-11 tablet by ity of tablet 00:00: mouth at [place] 00 bedtime. Medical Branch omeprazole 2021-0 Yes [id number] 20mg Take 1 [facility] 20 mg 1-11 capsule by ity of capsule 00:00: mouth [place] 00 daily. Medical Branch liothyronin 0 Yes [id number] 5ug Take 1 [facility] e 5 mcg 1-11 tablet by ity of tablet 00:00: mouth 2 [place] (two) Medical times Branch daily. metoprolol 2021-0 Yes [id number] 100mg Take 1 [facility] succinate 1-11 tablet by ity o f XL 100 mg 00:00: mouth [place] 24 hr 00 daily. Medical tablet Branch rosuvastati 2021-0 Yes [id number] 20mg Take 1 [facility] n 20 mg 1-11 tablet by ity of tablet 00:00: mouth at [place] 00 bedtime. Medical Branch omeprazole 2021-0 Yes [id number] 20mg Take 1 [facility] 20 mg 1-11 capsule by ity of capsule 00:00: mouth [place] 00 daily. Medical Branch liothyronin 2021-0 Yes [id number] 5ug Take 1 [facility] e 5 mcg 1-11 tablet by ity of tablet 00:00: mouth 2 00 (two) Medical times Branch daily. metoprolol 2021-0 Yes [id number] 100mg Take 1 [facility] succinate 1-11 tablet by ity o f XL 100 mg 00:00: mouth [place] 24 hr 00 daily. Medical tablet Branch rosuvastati 0 Yes [id number] 20mg Take 1 [facility] 20 mg 1-11 tablet by [facility] tablet 00:00: mouth at [place] 00 bedtime. Medical Branch omeprazole 0 Yes [id number] 20mg Take 1 [facility] 20 mg 1-11 capsule by [facility] capsule 00:00: mouth [place] 00 daily. Medical [facility] liothyronin 0 Yes [id number] 5ug Take 1 [facility] e 5 mcg 1-11 tablet by [facility] of tablet 00:00: mouth 2 (two) Medical times Branch daily. metoprolol 2021-0 Yes [id number] 100mg Take 1 [facility] succinate 1-11 tablet by [facility] o f XL 100 mg 00:00: mouth [place] 24 hr 00 daily. Medical tablet Branch rosuvastati 2021-0 Yes [id number] 20mg Take 1 [facility] n 20 mg 1-11 tablet by [facility] tablet 00:00: mouth at [place] 00 bedtime. Medical [facility] omeprazole 2021-0 Yes [id number] 20mg Take 1 [facility] 20 mg 1-11 capsule by [facility] capsule 00:00: mouth [place] 00 daily. Medical Branch liothyronin 2021-0 Yes [id number] 5ug Take 1 [facility] e 5 mcg 1-11 tablet by [facility] of tablet 00:00: mouth 2 [place] (two) Medical times Branch daily. metoprolol 2021-0 Yes [id number] 100mg Take 1 [facility] succinate 1-11 tablet by [facility] o f XL 100 mg 00:00: mouth [place] 24 hr 00 daily. Medical tablet Branch rosuvastati 2021-0 Yes [id number] 20mg Take 1 [facility] n 20 mg 1-11 tablet by [facility] tablet 00:00: mouth at [place] 00 bedtime. Medical [facility] omeprazole 2021-0 Yes [id number] 20mg Take 1 [facility] 20 mg 1-11 capsule by [facility] capsule 00:00: mouth [place] 00 daily. Medical Branch liothyronin 2021-0 Yes [id number] 5ug Take 1 [facility] e 5 mcg 1-11 tablet by [facility] of tablet 00:00: mouth 2 (two) Medical times Branch daily. omeprazole 2021-0 Yes [id number] 20mg Take 1 [facility] 20 mg 1-11 capsule by [facility] of capsule 00:00: mouth [place] 00 daily. Medical Branch liothyronin 2021-0 Yes [id number] 5ug Take 1 [facility] e 5 mcg 1-11 tablet by [facility] of tablet 00:00: mouth 2 (two) Medical times Branch daily. omeprazole 2021-0 Yes [id number] 20mg Take 1 [facility] 20 mg 1-11 capsule by [facility] capsule 00:00: mouth [place] 00 daily. Medical Branch liothyronin 2021-0 Yes [id number] 5ug Take 1 [facility] e 5 mcg 1-11 tablet by [facility] of tablet 00:00: mouth 2 (two) Medical times Branch daily. omeprazole 2021-0 Yes [id number] 20mg Take 1 [facility] 20 mg 1-11 capsule by [facility] of capsule 00:00: mouth [place] 00 daily. Medical Branch liothyronin 2021-0 Yes [id number] 5ug Take 1 [facility] e 5 mcg 1-11 tablet by [facility] of tablet 00:00: mouth 2 (two) Medical times Branch daily. omeprazole 2021-0 Yes [id number] 20mg Take 1 [facility] 20 mg 1-11 capsule by [facility] of capsule 00:00: mouth [place] 00 daily. Medical Branch liothyronin 2021-0 Yes [id number] 5ug Take 1 [facility] e 5 mcg 1-11 tablet by [facility] of tablet 00:00: mouth 2 (two) Medical times Branch daily. omeprazole 2021-0 Yes [id number] 20mg Take 1 [facility] 20 mg 1-11 capsule by [facility] of capsule 00:00: mouth [place] 00 daily. Medical Branch liothyronin 2021-0 Yes [id number] 5ug Take 1 [facility] e 5 mcg 1-11 tablet by [facility] of tablet 00:00: mouth 2 (two) Medical times Branch daily. omeprazole 2021-0 Yes [id number] 20mg Take 1 [facility] 20 mg 1-11 capsule by [facility] of capsule 00:00: mouth [place] 00 daily. Medical Branch liothyronin 2021-0 Yes [id number] 5ug Take 1 [facility] e 5 mcg 1-11 tablet by [facility] of tablet 00:00: mouth 2 (two) Medical times Branch daily. omeprazole 2021-0 Yes [id number] 20mg Take 1 [facility] 20 mg 1-11 capsule by [facility] of capsule 00:00: mouth [place] 00 daily. Medical Branch liothyronin 2021-0 Yes [id number] 5ug Take 1 [facility] e 5 mcg 1-11 tablet by [facility] of tablet 00:00: mouth 2 (two) Medical times Branch daily. omeprazole 2021-0 Yes [id number] 20mg Take 1 [facility] 20 mg 1-11 capsule by [facility] of capsule 00:00: mouth [place] 00 daily. Medical Branch liothyronin 2021-0 Yes [id number] 5ug Take 1 [facility] e 5 mcg 1-11 tablet by [facility] of tablet 00:00: mouth (two) Medical times Branch daily. omeprazole 2021-0 Yes [id number] 20mg Take 1 [facility] 20 mg 1-11 capsule by [facility] of capsule 00:00: mouth [place] 00 daily. Medical Branch liothyronin 2021-0 Yes [id number] 5ug Take 1 [facility] e 5 mcg 1-11 tablet by [facility] of tablet 00:00: mouth 2 (two) Medical times Branch daily. omeprazole 2021-0 Yes [id number] 20mg Take 1 [facility] 20 mg 1-11 capsule by [facility] of capsule 00:00: mouth [place] 00 daily. Medical Branch liothyronin 2021-0 Yes [id number] 5ug Take 1 [facility] e 5 mcg 1-11 tablet by [facility] of tablet 00:00: mouth 2 (two) Medical times Branch daily. omeprazole 2021-0 Yes [id number] 20mg Take 1 [facility] 20 mg 1-11 capsule by [facility] of capsule 00:00: mouth [place] 00 daily. Medical Branch omeprazole 2021-0 Yes [id number] 20mg Take 1 [facility] 20 mg 1-11 capsule by [facility] of capsule 00:00: mouth [place] 00 daily. Medical Branch omeprazole Yes [id number] 20mg Take 1 [facility] 20 mg 1-11 capsule by [facility] of capsule 00:00: mouth [place] 00 daily. Medical Branch omeprazole Yes [id number] 20mg Take 1 [facility] 20 mg 1-11 capsule by [facility] of capsule 00:00: mouth [place] 00 daily. Medical Branch omeprazole Yes [id number] 20mg Take 1 [facility] 20 mg 1-11 capsule by [facility] of capsule 00:00: mouth [place] 00 daily. Medical Branch liothyronin 2022- No [id number] 5ug Take 1 [facility] e 5 mcg 10-21 tablet by [facility]y of tablet 00:00: 00:00 mouth 2 [place] 00 :00 (two) Medical times Branch daily. metoprolol 2022- No [id number] 100mg Take 1 [facility] succinate 10-21 tablet by [facility]y of XL 100 mg 00:00: 00:00 mouth [place] 24 hr 00 :00 daily. Medical tablet Branch rosuvastati 2022- No [id number] 20mg Take 1 [facility] n 20 mg 10-21 tablet by [facility]y of tablet 00:00: 00:00 mouth at [place] 00 :00 bedtime. Medical Branch metoprolol 2022- No [id number] 100mg Take 1 [facility] succinate 10-21 tablet by ity of XL 100 mg 00:00: 00:00 mouth [place] 24 hr 00 :00 daily. Medical tablet Branch rosuvastati 2022- No [id number] 20mg Take 1 [facility] n 20 mg 10-21 tablet by [facility]y of tablet 00:00: 00:00 mouth at [place] 00 :00 bedtime. Medical Branch felodipine 2021- No [id number] 5mg Take 1 [facility] 5 mg 24 hr 10-2115 tablet by ity of tablet 00:00: 00:00 mouth at [place] 00 :00 bedtime. Medical Branch nabumetone 2020-10 [...] Take 750 [facility] (Relafen) 1-18 mg by [facility] 750 MG 00:00: mouth [place] tablet 00 the morning and 750 mg before bedtime. nabumetone 2020-10 Yes 750mg Q.5D Take 750 [facility] (Relafen) 1-18 mg by [facility] 750 MG 00:00: mouth [place] tablet 00 the morning and 750 mg before bedtime. nabumetone 2020-10 Yes 750mg Q.5D Take 750 [facility] (Relafen) 1-18 mg by [facility] 750 MG 00:00: mouth [place] tablet 00 the morning and 750 mg before bedtime. nabumetone 2020-10 Yes 750mg Q.5D Take 750 [facility] (Relafen) 1-18 mg by [facility] 750 MG 00:00: mouth [place] tablet 00 the morning and 750 mg before bedtime. nabumetone 2020-10 Yes 750mg Q.5D Take 750 [facility] (Relafen) 1-18 mg by [facility] 750 MG 00:00: mouth [place] tablet 00 the morning and 750 mg before bedtime. nabumetone 2020-10 Yes 750mg Q.5D Take 750 [facility] (Relafen) 1-18 mg by [facility] 750 MG 00:00: mouth [place] tablet 00 the morning and 750 mg before bedtime. nabumetone 2020-10 Yes 750mg Q.5D Take 750 [facility] (Relafen) 1-18 mg by [facility] 750 MG 00:00: mouth [place] tablet 00 the morning and 750 mg before bedtime. nabumetone 2020-10 Yes 750mg Q.5D Take 750 [facility] (Relafen) 1-18 mg by [facility] 750 MG 00:00: mouth [place] tablet 00 the morning and 750 mg before bedtime. nabumetone 2020-1 Yes 750mg Q.5D Take 750 [facility] (Relafen) 1-18 mg by [facility] 750 MG 00:00: mouth [place] tablet 00 the morning and 750 mg before bedtime. buPROPion 0 Yes [facility] XL 300 mg 5-21 ity of 24 hr 00:00: [place] tablet 00 [facility] buPROPion 2019-0 Yes [facility] XL 300 mg 5-21 ity of 24 hr 00:00: [place] tablet [facility] buPROPion 2019-0 Yes [facility] XL 300 mg 5-21 ity of 24 hr 00:00: [place] tablet [facility] buPROPion 2019-0 Yes [facility] XL 300 mg 5-21 ity of 24 hr 00:00: [place] tablet [facility] buPROPion 2019- Yes [facility] XL 300 mg 5-21 ity of 24 hr 00:00: [place] tablet [facility] buPROPion 2019- Yes [facility] XL 300 mg 5-21 ity of 24 hr 00:00: [place] tablet [facility] buPROPion 2019- Yes [facility] XL 300 mg 5-21 ity of 24 hr 00:00: [place] tablet [facility] buPROPion 2019-0 Yes [facility] XL 300 mg 5-21 ity of 24 hr 00:00: [place] tablet [facility] buPROPion 2019-0 Yes [facility] XL 300 mg 5-21 ity of 24 hr 00:00: [place] tablet [facility] buPROPion 2019- Yes [facility] XL 300 mg 5-21 ity of 24 hr 00:00: [place] tablet [facility] buPROPion 2019- Yes [facility] XL 300 mg 5-21 ity of 24 hr 00:00: [place] tablet [facility] buPROPion 2019-0 Yes [facility] XL 300 mg 5-21 ity of 24 hr 00:00: [place] tablet [facility] buPROPion 2019-0 Yes [facility] XL 300 mg 5-21 ity of 24 hr 00:00: [place] tablet 00 [facility] buPROPion 2019-0 Yes [facility] XL 300 mg 5-21 ity of 24 hr 00:00: [place] tablet [facility] buPROPion 2019-0 Yes [facility] XL 300 mg 5-21 ity of 24 hr 00:00: [place] tablet 00 [facility] buPROPion 2019- Yes [facility] XL 300 mg 5-21 ity of 24 hr 00:00: [place] tablet Medical Branch buPROPion 2020-0 Yes [facility] XL 300 mg 5-21 ity of 24 hr 00:00: [place] tablet 00 [facility] buPROPion 2020-0 Yes [facility] XL 300 mg 5-21 ity of 24 hr 00:00: [place] tablet 00 [facility] Branch buPROPion 2020-0 Yes [facility] XL 300 mg 5-21 ity of 24 hr 00:00: [place] tablet [facility] buPROPion 2019-0 Yes [facility] XL 300 mg 5-21 ity of 24 hr 00:00: [place] tablet [facility] Branch buPROPion 2019-0 Yes [facility] XL 300 mg 5-21 ity of 24 hr 00:00: [place] tablet 00 [facility] buPROPion 2019-0 Yes [facility] XL 300 mg 5-21 ity of 24 hr 00:00: [place] tablet [facility] buPROPion 2019-0 Yes [facility] XL 300 mg 5-21 ity of 24 hr 00:00: [place] tablet [facility] buPROPion 2019-0 Yes [facility] XL 300 mg 5-21 ity of 24 hr 00:00: [place] tablet [facility] buPROPion 2019-0 Yes [facility] XL 300 mg 5-21 ity of 24 hr 00:00: [place] tablet [facility] buPROPion 2019-0 Yes [facility] XL 300 mg 5-21 ity of 24 hr 00:00: [place] tablet 00 [facility] buPROPion 2019-0 Yes [facility] XL 300 mg 5-21 ity of 24 hr 00:00: [place] tablet [facility] buPROPion 2019-0 Yes [facility] XL 300 mg 5-21 ity of 24 hr 00:00: [place] tablet 00 [facility] buPROPion 2019-0 Yes [facility] XL 300 mg 5-21 ity of 24 hr 00:00: [place] tablet 00 [facility] buPROPion 2019-0 Yes [facility] XL 300 mg 5-21 ity of 24 hr 00:00: [place] tablet 00 [facility] buPROPion 2019-0 3- No [facility] XL 300 mg 5-21 03-21 ity of 24 hr 00:00: 00:00 [place] tablet 00 :00 [facility] buPROPion 2019-0 2022- No [facility] XL 300 mg 5-21 -21 ity of 24 hr 00:00: 00:00 [place] tablet 00 :00 [facility] buPROPion 2019-0 3- No [facility] XL 300 mg 5-21 -21 ity of 24 hr 00:00: 00:00 [place] tablet 00 :00 Medical Branch escitalopra 2020-0 Yes 20mg Take [...] mg 00:00: daily. [place] tablet 00 Medical [place] escitalopra 2020-0 Yes 20mg Take 20 mg [facility] m oxalate 3-27 by mouth ity of 20 mg 00:00: daily. [place] tablet 00 Medical [place] escitalopra 2020-0 Yes 20mg Take 20 mg [facility] m oxalate 3-27 by mouth ity of 20 mg 00:00: daily. [place] tablet 00 Medical [place] escitalopra 2020-0 Yes 20mg Take 20 mg [facility] m oxalate 3-27 by mouth ity of 20 mg 00:00: daily. [place] tablet 00 Medical [place] escitalopra 2020-0 Yes 20mg Take 20 mg [facility] m oxalate 3-27 by mouth ity of 20 mg 00:00: daily. [place] tablet 00 Medical [place] escitalopra 2020-0 Yes 20mg Take 20 mg [...] mg 00:00: daily. [place] tablet 00 Medical [place] escitalopra 2020-0 Yes 20mg Take 20 mg [facility] m oxalate 3-27 by mouth ity of 20 mg 00:00: daily. [place] tablet 00 Medical [place] escitalopra 2020-0 Yes 20mg Take 20 mg [facility] m oxalate 3-27 by mouth ity of 20 mg 00:00: daily. [place] tablet 00 [facility] escitalopra 2020-0 Yes 20mg Take 20 mg [facility] m oxalate 3-27 by mouth ity of 20 mg 00:00: daily. [place] tablet 00 [facility] escitalopra 2020-0 Yes 20mg Take 20 mg [facility] m oxalate 3-27 by mouth ity of 20 mg 00:00: daily. [place] tablet 00 [facility] escitalopra 2020-0 Yes 20mg Take 20 mg [facility] m oxalate 3-27 by mouth ity of 20 mg 00:00: daily. [place] tablet 00 [facility] escitalopra 2020-0 Yes 20mg Take 20 mg [facility] m oxalate 3-27 by mouth ity of 20 mg 00:00: daily. [place] tablet 00 [facility] escitalopra 2020-0 Yes 20mg Take 20 mg [facility] m oxalate 3-27 by mouth ity of 20 mg 00:00: daily. [place] tablet 00 [facility] escitalopra 2020-0 Yes 20mg Take 20 mg [facility] m oxalate 3-27 by mouth ity of 20 mg 00:00: daily. [place] tablet 00 [facility] escitalopra 2020-0 Yes 20mg Take 20 mg [facility] m oxalate 3-27 by mouth ity of 20 mg 00:00: daily. [place] tablet 00 [facility] escitalopra 2020-0 Yes 20mg Take 20 mg [facility] m oxalate 3-27 by mouth ity of 20 mg 00:00: daily. [place] tablet 00 [facility] escitalopra 2020-0 Yes 20mg Take 20 mg [facility] m oxalate 3-27 by mouth ity of 20 mg 00:00: daily. [place] tablet 00 [facility] escitalopra 2020-0 Yes 20mg Take 20 mg [facility] m oxalate 3-27 by mouth ity of 20 mg 00:00: daily. [place] tablet 00 [facility] escitalopra 2020-0 Yes 20mg Take 20 mg [facility] m oxalate 3-27 by mouth ity of 20 mg 00:00: daily. [place] tablet 00 [facility] escitalopra 2020-0 Yes 20mg Take 20 mg [facility] m oxalate 3-27 by mouth ity of 20 mg 00:00: daily. [place] tablet 00 [facility] escitalopra 2020-0 Yes 20mg Take 20 mg [facility] m oxalate 3-27 by mouth ity of 20 mg 00:00: daily. [place] tablet 00 [facility] escitalopra Yes 20mg Take 20 mg [facility] m oxalate 3-27 by mouth ity of 20 mg 00:00: daily. [place] tablet 00 [facility] escitalopra Yes 20mg Take 20 mg [facility] m oxalate 3-27 by mouth ity of 20 mg 00:00: daily. [place] tablet 00 [facility] escitalopra Yes 20mg Take 20 mg [facility] m oxalate 3- by mouth ity of 20 mg 00:00: daily. [place] tablet 00 [facility] escitalopra 2022- No 20mg Take 20 mg [facility] m oxalate 01-04- by mouth ity o f 20 mg 00:00: 00:00 daily. [place] tablet 00 :00 [facility] escitalopra 2022- No 20mg Take 20 mg [facility] m oxalate 01-04- by mouth ity o f 20 mg 00:00: 00:00 daily. [place] tablet 00 :00 [facility] escitalopra 2022- No 20mg Take 20 mg [facility] m oxalate 01-04- by mouth ity o f 20 mg 00:00: 00:00 daily. [place] tablet 00 :00 [facility] omeprazole Yes 40mg QD Take [address] (PRILOSEC) 6-28 by [facility] 40 MG 13:36: every Medical capsule 16 morning. [place] metoprolol Yes 100mg QD Take [address] (TOPROL-XL) 6-28 mg by [facility] 100 MG 24 13:36: mouth Medical hr tablet 16 daily. [place] vortioxetin Yes 10mg QD Take [address] [facility] 10 mg Tab 6-28 by mouth [facility] 13:36: daily. [address] OLANZapine 0 Yes 15mg QD Take [address] (ZYPREXA) 6-28 by [facility] 15 MG 13:36: nightly. [facility] tablet 16 [place] methylpheni 0 Yes 54mg QD Take [address] date HCl 6-28 by [facility] (CONCERTA) 13:36: every Medica l 54 MG CR 16 morning. [place] tablet liothyronin 0 Yes 5ug Q.5D Take [address] [facility] (CYTOMEL) 6-28 by mouth 2 [place] [facility] 5 MCG 13:36: (two) Medical tablet 16 times Center daily. omeprazole 2018-0 Yes 40mg QD Take [address] (PRILOSEC) 6-28 by [facility] 40 MG 13:36: every Medical capsule 16 morning. [place] metoprolol 2018-0 Yes 100mg QD Take [address] (TOPROL-XL) 6-28 mg by [facility] 100 MG 24 13:36: mouth Medical hr tablet 16 daily. [place] vortioxetin 2018-0 Yes 10mg QD Take [address] [facility] 10 mg Tab 6-28 by mouth [facility] 13:36: daily. Medical 16 [place] OLANZapine 2018-0 Yes 15mg QD Take [address] (ZYPREXA) 6-28 by [facility] 15 MG 13:36: nightly. Medical tablet 16 [place] methylpheni 2018-0 Yes 54mg QD Take [address] date HCl 6-28 by [facility] (CONCERTA) 13:36: every Medica l 54 MG CR 16 morning. [place] tablet liothyronin 2018-0 Yes 5ug Q.5D Take [address] [facility] (CYTOMEL) 6-28 by mouth 2 [place] [facility] 5 MCG 13:36: (two) Medical tablet 16 times Center daily. omeprazole 2018-0 Yes 40mg QD Take [address] (PRILOSEC) 6-28 by [facility] 40 MG 13:36: every Medical capsule 16 morning. [place] metoprolol 2018-0 Yes 100mg QD Take [address] (TOPROL-XL) 6-28 mg [facility] 100 MG 24 13:36: mouth Medical hr tablet 16 daily. [place] vortioxetin 2018-0 Yes 10mg QD Take [address] [facility] 10 mg Tab 6-28 by mouth [facility] 13:36: daily. Medical 16 [place] OLANZapine 2018-0 Yes 15mg QD Take [address] (ZYPREXA) 6-28 by [facility] 15 MG 13:36: nightly. Medical tablet 16 [place] methylpheni 2018-0 Yes 54mg QD Take [address] date HCl 6-28 by [facility] (CONCERTA) 13:36: every Medica l 54 MG CR 16 morning. [place] tablet liothyronin 2018-0 Yes 5ug Q.5D Take [address] [facility] (CYTOMEL) 6-28 by mouth 2 [place] [facility] 5 MCG 13:36: (two) Medical tablet 16 times Center daily. omeprazole 2018-0 Yes 40mg QD Take [address] (PRILOSEC) 6-28 by [facility] 40 MG 13:36: every Medical capsule 16 morning. [place] metoprolol 2018-0 Yes 100mg QD Take [address] (TOPROL-XL) 6-28 mg by [facility] 100 MG 24 13:36: mouth Medical hr tablet 16 daily. [place] vortioxetin 2018-0 Yes 10mg QD Take [address] [facility] 10 mg Tab 6-28 by mouth [facility] 13:36: daily. Medical 16 [place] OLANZapine 2018-0 Yes 15mg QD Take [address] (ZYPREXA) 6-28 by [facility] 15 MG 13:36: nightly. Medical tablet 16 [place] methylpheni 2018-0 Yes 54mg QD Take [address] date HCl 6-28 by mouth [facility] (CONCERTA) 13:36: every Medica l 54 MG CR 16 morning. [place] tablet liothyronin 2018-0 Yes 5ug Q.5D Take [address] [facility] (CYTOMEL) 6-28 by mouth 2 [place] [facility] 5 MCG 13:36: (two) Medical tablet 16 times Center daily. omeprazole 2018-0 Yes 40mg QD Take [address] (PRILOSEC) 6-28 by [facility] 40 MG 13:36: every Medical capsule 16 morning. [place] metoprolol 2018-0 Yes 100mg QD Take [address] (TOPROL-XL) 6-28 mg by [facility] 100 MG 24 13:36: mouth Medical hr tablet 16 daily. [place] vortioxetin 2018-0 Yes 10mg QD Take [address] [facility] 10 mg Tab 6-28 by mouth [facility] 13:36: daily. Medical 16 [place] OLANZapine 2018-0 Yes 15mg QD Take [address] (ZYPREXA) 6-28 by [facility] 15 MG 13:36: nightly. Medical tablet 16 [place] methylpheni 2018-0 Yes 54mg QD Take [address] [address] date HCl 6-28 by mouth [facility] (CONCERTA) 13:36: every Medica l 54 MG CR 16 morning. [place] tablet liothyronin 2018-0 Yes 5ug Q.5D Take [address] [facility] (CYTOMEL) 6-28 by mouth 2 [place] [facility] 5 MCG 13:36: (two) Medical tablet 16 times Center daily. omeprazole 2018-0 Yes 40mg QD Take [address] (PRILOSEC) 6-28 by [facility] 40 MG 13:36: every Medical capsule 16 morning. [place] metoprolol 2018-0 Yes 100mg QD Take [address] (TOPROL-XL) 6-28 mg by [facility] 100 MG 24 13:36: mouth Medical hr tablet 16 daily. [place] vortioxetin 2018-0 Yes 10mg QD Take [address] [facility] 10 mg Tab 6-28 by mouth [facility] 13:36: daily. Medical 16 [place] OLANZapine 2018-0 Yes 15mg QD Take [address] (ZYPREXA) 6-28 by [facility] 15 MG 13:36: nightly. Medical tablet 16 [place] methylpheni 2018-0 Yes 54mg QD Take [address] [facility] [address] date HCl 6-28 by mouth [facility] (CONCERTA) 13:36: every Medica l 54 MG CR 16 morning. [place] tablet liothyronin 2018-0 Yes 5ug Q.5D Take [address] [facility] (CYTOMEL) 6-28 by mouth 2 [place] [facility] 5 MCG 13:36: (two) Medical tablet 16 times Center daily. omeprazole 2018-0 Yes 40mg QD Take [address] (PRILOSEC) 6-28 by [facility] 40 MG 13:36: every Medical capsule 16 morning. [place] metoprolol 2018-0 Yes 100mg QD Take [address] (TOPROL-XL) 6-28 mg by [facility] 100 MG 24 13:36: mouth Medical hr tablet 16 daily. [place] vortioxetin 2018-0 Yes 10mg QD Take [address] [facility] 10 mg Tab 6-28 by mouth [facility] 13:36: daily. Medical 16 [place] OLANZapine 2018-0 Yes 15mg QD Take [address] (ZYPREXA) 6-28 by [facility] 15 MG 13:36: nightly. Medical tablet 16 [place] methylpheni 2018-0 Yes 54mg QD Take [address] date HCl 6-28 by mouth [facility] (CONCERTA) 13:36: every Medica l 54 MG CR 16 morning. [place] tablet liothyronin 2018-0 Yes 5ug Q.5D Take [address] [facility] (CYTOMEL) 6-28 by mouth 2 [place] [facility] 5 MCG 13:36: (two) Medical tablet 16 times Center daily. omeprazole 2018-0 Yes 40mg QD Take [address] (PRILOSEC) 6-28 by [facility] 40 MG 13:36: every Medical capsule 16 morning. [place] metoprolol 2018-0 Yes 100mg QD Take [address] (TOPROL-XL) 6-28 mg by [facility] 100 MG 24 13:36: mouth Medical hr tablet 16 daily. [place] vortioxetin 2018-0 Yes 10mg QD Take [address] [facility] 10 mg Tab 6-28 by mouth [facility] 13:36: daily. Medical 16 [place] OLANZapine 2018-0 Yes 15mg QD Take [address] (ZYPREXA) 6-28 by [facility] 15 MG 13:36: nightly. Medical tablet 16 [place] methylpheni 2018-0 Yes 54mg QD Take [address] date HCl 6-28 by mouth [facility] (CONCERTA) 13:36: every Medica l 54 MG CR 16 morning. [place] tablet liothyronin 2018-0 Yes 5ug Q.5D Take [address] [facility] (CYTOMEL) 6-28 by mouth 2 [place] [facility] 5 MCG 13:36: (two) Medical tablet 16 times Center daily. omeprazole 2018-0 Yes 40mg QD Take [address] (PRILOSEC) 6-28 by [facility] 40 MG 13:36: every Medical capsule 16 morning. [place] metoprolol 2018-0 Yes 100mg QD Take [address] (TOPROL-XL) 6-28 mg by [facility] 100 MG 24 13:36: mouth Medical hr tablet 16 daily. [place] vortioxetin 2018-0 Yes 10mg QD Take [address] [facility] 10 mg Tab 6-28 by mouth [facility] 13:36: daily. Medical 16 [place] OLANZapine 2018-0 Yes 15mg QD Take [address] (ZYPREXA) 6-28 by [facility] 15 MG 13:36: nightly. Medical tablet 16 [place] methylpheni 2018-0 Yes 54mg QD Take [address] [facility] [address] date HCl 6-28 by mouth [facility] (CONCERTA) 13:36: every Medica l 54 MG CR 16 morning. [place] tablet liothyronin 2018-0 Yes 5ug Q.5D Take [address] [facility] (CYTOMEL) 6-28 by mouth 2 [place] [facility] 5 MCG 13:36: (two) Medical tablet 16 times Center daily. omeprazole 2018-0 Yes 40mg QD Take [address] (PRILOSEC) 6-28 by [facility] 40 MG 13:36: every Medical capsule 16 morning. [place] metoprolol 2018-0 Yes 100mg QD Take [address] (TOPROL-XL) 6-28 mg by [facility] 100 MG 24 13:36: mouth Medical hr tablet 16 daily. [place] vortioxetin 2018-0 Yes 10mg QD Take [address] [facility] 10 mg Tab 6-28 by mouth [facility] 13:36: daily. Medical 16 [place] OLANZapine 2018-0 Yes 15mg QD Take [address] (ZYPREXA) 6-28 by [facility] 15 MG 13:36: nightly. Medical tablet 16 [place] methylpheni 2018-0 Yes 54mg QD Take [address] [facility] [address] date HCl 6-28 by mouth [facility] (CONCERTA) 13:36: every Medica l 54 MG CR 16 morning. [place] tablet liothyronin 2018-0 Yes 5ug Q.5D Take [address] [facility] (CYTOMEL) 6-28 by mouth 2 [place] [facility] 5 MCG 13:36: (two) Medical tablet 16 times Center daily. omeprazole 2018-0 Yes 40mg QD Take [address] (PRILOSEC) 6-28 by mouth [facility] 40 MG 13:36: every Medical capsule 16 morning. [place] metoprolol 2018-0 Yes 100mg QD Take [address] (TOPROL-XL) 6-28 mg by [facility] 100 MG 24 13:36: mouth Medical hr tablet 16 daily. [place] vortioxetin 2018-0 Yes 10mg QD Take [address] [facility] 10 mg Tab 6-28 by mouth [facility] 13:36: daily. Medical 16 [place] OLANZapine 2018-0 Yes 15mg QD Take [address] (ZYPREXA) 6-28 by [facility] 15 MG 13:36: nightly. Medical tablet 16 [place] methylpheni 2018-0 Yes 54mg QD Take [address] date HCl 6-28 by mouth [facility] (CONCERTA) 13:36: every Medica l 54 MG CR 16 morning. [place] tablet liothyronin 2018-0 Yes 5ug Q.5D Take [address] [facility] (CYTOMEL) 6-28 by mouth 2 [place] [facility] 5 MCG 13:36: (two) Medical tablet 16 times Center daily. omeprazole 2018-0 Yes 40mg QD Take [address] (PRILOSEC) 6-28 by [facility] 40 MG 13:36: every Medical capsule 16 morning. [place] omeprazole 2018-0 Yes 40mg QD Take [address] (PRILOSEC) 6-28 by [facility] 40 MG 13:36: every Medical capsule 16 morning. [place] metoprolol 2018-0 Yes 100mg QD Take [address] (TOPROL-XL) 6-28 mg by [facility] 100 MG 24 13:36: mouth Medical hr tablet 16 daily. [place] vortioxetin 2018-0 Yes 10mg QD Take [address] [facility] 10 mg Tab 6-28 by mouth [facility] 13:36: daily. [address] OLANZapine 2018-0 Yes 15mg QD Take [address] (ZYPREXA) 6-28 by mouth [facility] 15 MG 13:36: nightly. Medical tablet [address] [place] [id number] metoprolol 2018-0 Yes 100mg QD Take [address] (TOPROL-XL) 6-28 mg by [facility] 100 MG 24 13:36: mouth Medical hr tablet 16 daily. [place] methylpheni 2018-0 Yes 54mg QD Take [address] date HCl 6-28 by mouth [facility] (CONCERTA) 13:36: every Medica l 54 MG CR 16 morning. [place] tablet liothyronin 2018-0 Yes 5ug Q.5D Take [address] [facility] (CYTOMEL) 6-28 by mouth 2 [facility] kes 5 MCG 13:36: (two) Medical tablet 16 times [place] daily. vortioxetin 2018-0 Yes 10mg QD Take [address] [facility] 10 mg Tab 6-28 by mouth [facility] 13:36: daily. [address] OLANZapine 2018-0 Yes 15mg QD Take [address] [facility] (ZYPREXA) 6-28 [facility] 15 MG 13:36: nightly. Medical tablet 16 [place] omeprazole 2018-0 Yes 40mg QD Take [address] [facility] (PRILOSEC) 6-28 by [facility] 40 MG 13:36: every Medical capsule 16 morning. [place] metoprolol 2018-0 Yes 100mg QD Take [address] [facility] [address] [facility] (TOPROL-XL) 6-28 mg by [facility] 100 MG 24 13:36: mouth Medical hr tablet 16 daily. [place] vortioxetin 2018-0 Yes 10mg QD Take [address] [facility] 10 mg Tab 6-28 by mouth [facility] 13:36: daily. Medical 16 [place] OLANZapine 2018-0 Yes 15mg QD Take [address] (ZYPREXA) 6-28 by mouth [facility] 15 MG 13:36: nightly. Medical tablet 16 [place] methylpheni 2018-0 Yes 54mg QD Take [address] [facility] date HCl 6-28 by mouth [facility] ([facility]ERTA) 13:36: every Medica l 54 MG CR 16 morning. [place] tablet liothyronin 2018-0 Yes 5ug Q.5D Take [address] [facility] (CYTOMEL) 6-28 by mouth 2 [facility] kes 5 MCG 13:36: (two) Medical tablet 16 times Center daily. methylpheni 2018-0 Yes 54mg QD Take [address] [facility] date HCl 6-28 by mouth [facility] ([facility]ERT[facility]) 13:36: every Medica l 54 MG CR 16 morning. [place] tablet liothyronin 2018-0 Yes 5ug Q.5D Take [address] [facility] (CYTOMEL) 6-28 by mouth 2 [facility] kes 5 MCG 13:36: (two) Medical tablet 16 times [facility] daily. omeprazole 2018-0 Yes 40mg QD Take [address] [facility] (PRILOSEC) 6-28 by mouth [facility] 40 MG 13:36: every Medical capsule 16 morning. [place] metoprolol 2018-0 Yes 100mg QD Take [address] (TOPROL-XL) 6-28 mg by [facility] 100 MG 24 13:36: mouth Medical hr tablet 16 daily. [place] vortioxetin 2018-0 Yes 10mg QD Take [address] [facility] 10 mg Tab 6-28 by mouth [facility] 13:36: daily. [address] OLANZapine 2018-0 Yes 15mg QD Take [address] [facility] (ZYPREXA) 6-28 by mouth [facility] 15 MG 13:36: nightly. Medical tablet 16 [place] methylpheni 2018-0 Yes 54mg QD Take [address] [facility] date HCl 6-28 by mouth [facility] ([facility]ERT[facility]) 13:36: every Medica l 54 MG CR 16 morning. [place] tablet liothyronin 2018-0 Yes 5ug Q.5D Take [address] [facility] (CYTOMEL) 6-28 by mouth 2 [facility] kes 5 MCG 13:36: (two) Medical tablet 16 times Center daily. omeprazole 2018-0 Yes 40mg QD Take [address] [facility] (PRILOSEC) 6-28 by mouth [facility] 40 MG 13:36: every Medical capsule 16 morning. [place] metoprolol 2018-0 Yes 100mg QD Take [address] (TOPROL-XL) 6-28 mg by [facility] 100 MG 24 13:36: mouth Medical hr tablet 16 daily. [place] vortioxetin 2018-0 Yes 10mg QD Take [address] [facility] 10 mg Tab 6-28 by mouth [facility] 13:36: daily. Medical 16 [place] OLANZapine 2018-0 Yes 15mg QD Take [address] (ZYPREXA) 6-28 by [facility] 15 MG 13:36: nightly. Medical tablet 16 [place] methylpheni 2018-0 Yes 54mg QD Take [address] [facility] date HCl 6-28 by mouth [facility] ([facility]) 13:36: every Medica l 54 MG CR 16 morning. [place] tablet liothyronin 2018-0 Yes 5ug Q.5D Take [address] [facility] (CYTOMEL) 6-28 by mouth 2 [facility] kes 5 MCG 13:36: (two) Medical tablet 16 times Center daily. omeprazole 2018-0 Yes 40mg QD Take [address] (PRILOSEC) 6-28 by mouth [facility] 40 MG 13:36: every Medical capsule 16 morning. [place] metoprolol 2018-0 Yes 100mg QD Take [address] (TOPROL-XL) 6-28 mg by [facility] 100 MG 24 13:36: mouth Medical hr tablet 16 daily. [place] vortioxetin 2018-0 Yes 10mg QD Take [address] [facility] 10 mg Tab 6-28 by mouth [facility] 13:36: daily. Medical 16 [place] OLANZapine 2018-0 Yes 15mg QD Take [address] (ZYPREXA) 6-28 by mouth [facility] 15 MG 13:36: nightly. Medical tablet 16 [place] methylpheni 2018-0 Yes 54mg QD Take [address] [facility] date HCl 6-28 by mouth [facility] ([facility]) 13:36: every Medica l 54 MG CR 16 morning. [place] tablet liothyronin 2018-0 Yes 5ug Q.5D Take [address] [facility] (CYTOMEL) 6-28 by mouth 2 [place] kes 5 MCG 13:36: (two) Medical tablet 16 times Center daily. omeprazole 2018-0 Yes 40mg QD Take [address] (PRILOSEC) 6-28 by mouth [facility] 40 MG 13:36: every Medical capsule 16 morning. [place] metoprolol 2018-0 Yes 100mg QD Take [address] (TOPROL-XL) 6-28 mg by [facility] 100 MG 24 13:36: mouth Medical hr tablet 16 daily. [place] vortioxetin 2017-0 Yes 10mg QD Take [address] [facility] 10 mg Tab 6-28 by mouth [facility] 13:36: daily. Medical 16 [place] OLANZapine 2017-0 Yes 15mg QD Take [address] (ZYPREXA) 6-28 by mouth [facility] 15 MG 13:36: nightly. Medical tablet 16 [place] methylpheni 2017-0 Yes 54mg QD Take [address] [facility] date HCl 6-28 by mouth [facility] ([facility]) 13:36: every Medica l 54 MG CR 16 morning. [place] tablet liothyronin 2018-0 Yes 5ug Q.5D Take [address] [facility] (CYTOMEL) 6-28 by mouth 2 [place] kes 5 MCG 13:36: (two) Medical tablet 16 times Center daily. omeprazole 2018-0 Yes 40mg QD Take [address] [facility] (PRILOSEC) 6-28 by mouth [facility] 40 MG 13:36: every Medical capsule 16 morning. [place] metoprolol 2018-0 Yes 100mg QD Take [address] (TOPROL-XL) 6-28 mg by [facility] 100 MG 24 13:36: mouth Medical hr tablet 16 daily. [place] vortioxetin 2018-0 Yes 10mg QD Take [address] [facility] 10 mg Tab 6-28 by mouth [facility] 13:36: daily. Medical 16 [place] OLANZapine 2018-0 Yes 15mg QD Take [address] (ZYPREXA) 6-28 by mouth [facility] 15 MG 13:36: nightly. Medical tablet 16 [place] methylpheni 2018-0 Yes 54mg QD Take [address] [facility] [address] date HCl 6-28 by mouth [facility] ([facility]) 13:36: every Medica l 54 MG CR 16 morning. [place] tablet liothyronin 2018-0 Yes 5ug Q.5D Take [address] [facility] (CYTOMEL) 6-28 by mouth 2 [place] kes 5 MCG 13:36: (two) Medical tablet 16 times Center daily. omeprazole 2018-0 Yes 40mg QD Take [address] (PRILOSEC) 6-28 by mouth [facility] 40 MG 13:36: every Medical capsule 16 morning. [place] metoprolol 2018-0 Yes 100mg QD Take [address] (TOPROL-XL) 6-28 mg by [facility] 100 MG 24 13:36: mouth Medical hr tablet 16 daily. [place] vortioxetin 2018-0 Yes 10mg QD Take [address] [facility] 10 mg Tab 6-28 by mouth [facility] 13:36: daily. Medical 16 [place] OLANZapine 2018-0 Yes 15mg QD Take [address] (ZYPREXA) 6-28 by mouth [facility] 15 MG 13:36: nightly. Medical tablet 16 [place] methylpheni 2018-0 Yes 54mg QD Take [address] [facility] [address] date HCl 6-28 by mouth [facility] ([facility]) 13:36: every Medica l 54 MG CR 16 morning. [place] tablet liothyronin 2018-0 Yes 5ug Q.5D Take [address] [facility] (CYTOMEL) 6-28 by mouth 2 [place] kes 5 MCG 13:36: (two) Medical tablet 16 times Center daily. omeprazole 2018-0 Yes 40mg QD Take [address] (PRILOSEC) 6-28 by mouth [facility] 40 MG 13:36: every Medical capsule 16 morning. [place] metoprolol 2018-0 Yes 100mg QD Take [address] (TOPROL-XL) 6-28 mg by [facility] 100 MG 24 13:36: mouth Medical hr tablet 16 daily. [place] vortioxetin 2018-0 Yes 10mg QD Take [address] [facility] 10 mg Tab 6-28 by mouth [facility] 13:36: daily. Medical 16 [place] OLANZapine 2018-0 Yes 15mg QD Take [address] (ZYPREXA) 6-28 by mouth [facility] 15 MG 13:36: nightly. Medical tablet 16 [place] methylpheni 2018-0 Yes 54mg QD Take [address] [facility] date HCl 6-28 by mouth [facility] ([facility]) 13:36: every Medica l 54 MG CR 16 morning. [place] tablet liothyronin 2018-0 Yes 5ug Q.5D Take [address] [facility] (CYTOMEL) 6-28 by mouth 2 [place] kes 5 MCG 13:36: (two) Medical tablet 16 times Center daily. omeprazole 2018-0 Yes 40mg QD Take [address] (PRILOSEC) 6-28 by mouth [facility] 40 MG 13:36: every Medical capsule 16 morning. [place] metoprolol 2018-0 Yes 100mg QD Take [address] (TOPROL-XL) 6-28 mg by [facility] 100 MG 24 13:36: mouth Medical hr tablet 16 daily. [place] vortioxetin 2018-0 Yes 10mg QD Take [address] [facility] 10 mg Tab 6-28 by mouth [facility] 13:36: daily. Medical 16 [place] OLANZapine 2018-0 Yes 15mg QD Take [address] (ZYPREXA) 6-28 by mouth [facility] 15 MG 13:36: nightly. Medical tablet 16 [place] methylpheni 2018-0 Yes 54mg QD Take [address] [facility] [address] date HCl 6-28 by mouth [facility] ([facility]) 13:36: every Medica l 54 MG CR 16 morning. [place] tablet liothyronin 2018-0 Yes 5ug Q.5D Take [address] [facility] (CYTOMEL) 6-28 by mouth 2 [facility] kes 5 MCG 13:36: (two) Medical tablet 16 times Center daily. omeprazole 2018-0 Yes 40mg QD Take [address] (PRILOSEC) 6-28 by mouth [facility] 40 MG 13:36: every Medical capsule 16 morning. [place] metoprolol 2018-0 Yes 100mg QD Take [address] (TOPROL-XL) 6-28 mg by [facility] 100 MG 24 13:36: mouth Medical hr tablet 16 daily. [place] vortioxetin 2018-0 Yes 10mg QD Take [address] [facility] 10 mg Tab 6-28 by mouth [facility] 13:36: daily. Medical 16 [place] OLANZapine 2018-0 Yes 15mg QD Take [address] (ZYPREXA) 6-28 by mouth [facility] 15 MG 13:36: nightly. Medical tablet 16 [place] methylpheni 2018-0 Yes 54mg QD Take 54 [...] MG 13:36: every Medical capsule 16 morning. [place] metoprolol 2018-0 Yes 100mg QD Take [address] (TOPROL-XL) 6-28 mg by [facility] 100 MG 24 13:36: mouth Medical hr tablet 16 daily. [place] vortioxetin 2017-0 Yes 10mg QD Take [address] [facility] 10 mg Tab 6-28 by mouth [facility] 13:36: daily. Medical 16 [place] OLANZapine 2017-0 Yes 15mg QD Take [address] (ZYPREXA) 6-28 by mouth [facility] 15 MG 13:36: nightly. Medical tablet 16 [place] methylpheni 2018-0 Yes 54mg QD Take [address] [facility] [address] date HCl 6-28 by mouth [facility] ([facility]) 13:36: every Medica l 54 MG CR 16 morning. Center tablet liothyronin 2017-0 Yes 5ug Q.5D Take [address] [facility] (CYTOMEL) 6-28 by mouth 2 Z[facility] kes 5 MCG 13:36: (two) Medical tablet 16 times [place] daily. metoprolol 2018-0 Yes 100mg QD Take 100 [...] Immunizations Ordered Filled Immunization Date Status Comments [facility] e Immunization Name Name influenza virus 2022-07-16 Completed [facility] vaccine, 16:15:00 inactivated Influenza Virus 2022-07-12 Completed [...] [facility] y [facility]ine [facility], 00:00:00 [place] [facility] Preserv and ABX Branch Free 6 MO-64 YRS Influenza Virus 2022-07-12 Completed [facility], 00:00:00 [place] [facility] Preserv and ABX Branch Free 6 MO-64 YRS Influenza Virus 2022-07-12 Completed [facility], 00:00:00 [place] [facility] Preserv and ABX Branch Free 6 MO-64 YRS Influenza Virus 2022-07-12 Completed [facility]ine [facility], 00:00:00 [place] [facility] Preserv and ABX Branch Free 6 MO-64 YRS Influenza Virus 2022-07-12 Completed [facility]ine [facility], 00:00:00 [place] [facility] Preserv and ABX Branch Free [...] [facility] Vaccine [facility] IM, 00:00:00 [place] [facility] Preserv and ABX Branch Free [...] [facility] Vaccine [facility] IM, 00:00:00 [place] [facility] Preserv and ABX Branch Free 6 MO-64 YRS Influenza Virus 2022-07-12 Completed [facility]ine [facility], 00:00:00 [place] [facility] Preserv and ABX Branch Free 6 MO-64 YRS Influenza Virus 2022-07-12 Completed [facility]it y of Vaccine [facility] IM, 00:00:00 [facility] dical Preserv and ABX Branch Free 6 MO-64 YRS Influenza Virus 2022-07-12 Completed Universit y of Vaccine [facility] IM, 00:00:00 [facility] dical Preserv and ABX Branch Free 6 MO-64 YRS [facility] 2022-05-25 Completed University of 00:00:00 [facility] Pneumococcal 20 2022-05-25 Completed Universit y of Conjugate, PCV20 00:00:00 [facility] dical (Prevnar 20) Branch [facility] 2022-05-25 Completed University of 00:00:00 [facility] Pneumococcal 20 2022-05-25 Completed Universit y of Conjugate, PCV20 00:00:00 [facility] dical (Prevnar 20) Branch [facility] 2022-05-25 Completed University of 00:00:00 [facility] Pneumococcal 20 2022-05-25 Completed Universit y of Conjugate, PCV20 00:00:00 [facility] dical (Prevnar 20) Branch [facility] 2022-05-25 Completed University of 00:00:00 [facility] Pneumococcal 20 2022-05-25 Completed Universit y of Conjugate, PCV20 00:00:00 [facility] dical (Prevnar 20) Branch [facility] 2022-05-25 Completed University of 00:00:00 [facility] Pneumococcal 20 2022-05-25 Completed [facility] Conjugate, PCV20 00[facility]00[facility] 2022-05-25 Completed University of 00:00:00 [facility] Pneumococcal 20 2022-05-25 Completed Universit y of Conjugate, PCV20 00:00:00 [facility] dical (Prevnar 20) Branch [facility] 2022-05-25 Completed University of 00:00:00 [facility] Pneumococcal 20 2022-05-25 Completed Universit y of Conjugate, PCV20 00:00:00 [facility] dical (Prevnar 20) Branch [facility] 2022-05-25 Completed University of 00:00:00 [facility] Pneumococcal 20 2022-05-25 Completed Universit y of Conjugate, PCV20 00:00:00 [facility] dical (Prevnar 20) Branch [facility] 2022-05-25 Completed University of 00:00:00 [facility] Pneumococcal 20 2022-05-25 Completed Universit y of Conjugate, PCV20 00:00:00 [facility] dical (Prevnar 20) Branch [facility] 2022-05-25 Completed University of 00:00:00 [facility] Pneumococcal 20 2022-05-25 Completed Universit y of Conjugate, PCV20 00:00:00 [facility] dical (Prevnar 20) Branch [facility] 2022-05-25 Completed University of 00:00:00 [facility] Pneumococcal 20 2022-05-25 Completed Universit y of Conjugate, PCV20 00:00:00 [facility] dical (Prevnar 20) Branch [facility] 2022-05-25 Completed University of 00:00:00 [facility] Pneumococcal 20 2022-05-25 Completed Universit y of Conjugate, PCV20 00:00:00 [facility] dical (Prevnar 20) Branch [facility] 2022-05-25 Completed University of 00:00:00 [facility] Pneumococcal 20 2022-05-25 Completed Universit y of Conjugate, PCV20 00:00:00 [facility] dical (Prevnar 20) Branch [facility] 2022-05-25 Completed University of 00:00:00 [facility] Pneumococcal 20 2022-05-25 Completed Universit y of Conjugate, PCV20 00:00:00 [facility] dical (Prevnar 20) Branch [facility] 2022-05-25 Completed University of 00:00:00 [facility] Pneumococcal 20 2022-05-25 Completed Universit y of Conjugate, PCV20 00:00:00 [facility] dical (Prevnar 20) Branch [facility] 2022-05-25 Completed University of 00:00:00 [facility] Pneumococcal 20 2022-05-25 Completed Universit y of Conjugate, PCV20 00:00:00 [facility] dical (Prevnar 20) Branch [facility] 2022-05-25 Completed University of 00:00:00 [facility] Pneumococcal 20 2022-05-25 Completed Universit y of Conjugate, PCV20 00:00:00 [facility] dical (Prevnar 20) Branch [facility] 2022-05-25 Completed University of 00:00:00 [facility] Pneumococcal 20 2022-05-25 Completed Universit y of Conjugate, PCV20 00:00:00 [facility] dical (Prevnar 20) Branch [facility] 2022-05-25 Completed University of 00:00:00 [facility] Pneumococcal 20 2022-05-25 Completed Universit y of Conjugate, PCV20 00:00:00 [facility] dical (Prevnar 20) Branch [facility] 2022-05-25 Completed University of 00:00:00 [facility] Pneumococcal 20 2022-05-25 Completed Universit y of Conjugate, PCV20 00:00:00 [facility] dical (Prevnar 20) Branch [facility] 2022-05-25 Completed University of 00:00:00 [facility] Pneumococcal 20 2022-05-25 Completed Universit y of Conjugate, PCV20 00:00:00 [facility] dical (Prevnar 20) Branch [facility] 2022-05-25 Completed University of 00:00:00 [facility] Pneumococcal 20 2022-05-25 Completed Universit y of Conjugate, PCV20 00:00:00 [facility] dical (Prevnar 20) Branch [facility] 2022-05-25 Completed University of 00:00:00 [facility] Pneumococcal 20 2022-05-25 Completed Universit y of Conjugate, PCV20 00:00:00 [facility] dical (Prevnar 20) Branch [facility] 2022-05-25 Completed University of 00:00:00 [facility] Pneumococcal 20 2022-05-25 Completed Universit y of Conjugate, PCV20 00:00:00 [facility] dical (Prevnar 20) Branch [facility] 2022-05-25 Completed University of 00:00:00 [facility] Pneumococcal 20 2022-05-25 Completed Universit y of Conjugate, PCV20 00:00:00 [facility] dical (Prevnar 20) Branch [facility] 2022-05-25 Completed University of 00:00:00 [facility] Pneumococcal 20 2022-05-25 Completed Universit y of Conjugate, PCV20 00:00:00 [facility] dical (Prevnar 20) Branch [facility] 2022-05-25 Completed University of 00:00:00 [facility] Pneumococcal 20 2022-05-25 Completed Universit y of Conjugate, PCV20 00:00:00 [facility] dical (Prevnar 20) Branch [facility] 2022-05-25 Completed University of 00:00:00 [facility] Pneumococcal 20 2022-05-25 Completed Universit y of Conjugate, PCV20 00:00:00 [facility] dical (Prevnar 20) Branch [facility] 2022-05-25 Completed University of 00:00:00 [facility] Pneumococcal 20 2022-05-25 Completed Universit y of Conjugate, PCV20 00:00:00 [facility] dical (Prevnar 20) Branch [facility] 2022-05-25 Completed University of 00:00:00 [facility] Pneumococcal 20 2022-05-25 Completed Universit y of Conjugate, PCV20 00:00:00 [facility] dical (Prevnar 20) Branch [facility] 2022-05-25 Completed University of 00:00:00 [facility] Pneumococcal 20 2022-05-25 Completed Universit y of Conjugate, PCV20 00:00:00 [facility] dical (Prevnar 20) Branch [facility] 2022-05-25 Completed University of 00:00:00 [facility] Pneumococcal 20 2022-05-25 Completed Universit y of Conjugate, PCV20 00:00:00 [facility] dical (Prevnar 20) Branch [facility] 2022-05-25 Completed University of 00:00:00 [facility] Pneumococcal 20 2022-05-25 Completed Universit y of Conjugate, PCV20 00:00:00 [facility] dical (Prevnar 20) Branch [facility] 2022-05-25 Completed University of 00:00:00 [facility] Pneumococcal 20 2022-05-25 Completed Universit y of Conjugate, PCV20 00:00:00 [facility] dical (Prevnar 20) Branch [facility] 2022-05-25 Completed University of 00:00:00 [facility] Pneumococcal 20 2022-05-25 Completed Universit y of Conjugate, PCV20 00:00:00 [facility] dical (Prevnar 20) Branch [facility] 2022-05-25 Completed University of 00:00:00 [facility] Pneumococcal 20 2022-05-25 Completed Universit y of Conjugate, PCV20 00:00:00 [facility] dical (Prevnar 20) Branch [facility] 2022-05-25 Completed University of 00:00:00 [facility] Pneumococcal 20 2022-05-25 Completed Universit y of Conjugate, PCV20 00:00:00 [facility] dical (Prevnar 20) Branch [facility] 2022-05-25 Completed University of 00:00:00 [facility] Pneumococcal 20 2022-05-25 Completed Universit y of Conjugate, PCV20 00:00:00 [facility] dical (Prevnar 20) Branch [facility] 2022-05-25 Completed University of 00:00:00 [facility] Pneumococcal 20 2022-05-25 Completed Universit y of Conjugate, PCV20 00:00:00 [facility] dical (Prevnar 20) Branch [facility] 2022-05-25 Completed University of 00:00:00 [facility] Pneumococcal 20 2022-05-25 Completed Universit y of Conjugate, PCV20 00:00:00 [facility] dical (Prevnar 20) Branch [facility] 2022-05-25 Completed University of 00:00:00 [facility] Pneumococcal 20 2022-05-25 Completed Universit y of Conjugate, PCV20 00:00:00 [facility] dical (Prevnar 20) Branch [facility] 2022-05-25 Completed University of 00:00:00 [facility] Pneumococcal 20 2022-05-25 Completed Universit y of Conjugate, PCV20 00:00:00 [facility] dical (Prevnar 20) Branch [facility] 2022-05-25 Completed University of 00:00:00 [facility] Pneumococcal 20 2022-05-25 Completed Universit y of Conjugate, PCV20 00:00:00 [facility] dical (Prevnar 20) Branch [facility] 2022-05-25 Completed University of 00:00:00 [facility] Pneumococcal 20 2022-05-25 Completed Universit y of Conjugate, PCV20 00:00:00 [facility] dical (Prevnar 20) Branch SARS-COV-2 [...] Unive rsity of MODERNA 12+ YRS 00:00:00 [place] [facility] VACCINE Branch SARS-COV-2 COVID-19 2021-01-15 Completed Unive rsity of MODERNA 12+ YRS 00:00:00 [place] [facility] VACCINE Branch SARS-COV-2 COVID-19 2021-01-15 Completed Unive rsity of MODERNA 12+ YRS 00:00:00 [place] [facility] VACCINE Branch SARS-COV-2 COVID-19 2021-01-15 Completed Unive rsity of MODERNA 12+ YRS 00:00:00 [facility] ical VACCINE Branch SARS-COV-2 COVID-19 2021-01-15 [...] Unive rsity of MODERNA 12+ YRS 00:00:00 [place] [facility] VACCINE Branch SARS-COV-2 COVID-19 2020-12-18 Completed Unive rsity of MODERNA 12+ YRS 00:00:00 [facility] ical VACCINE Branch Vital Signs Vital Name Observation Time Observation Value Comments Source Systolic blood 2023-02-03 18:33:00 131 mm[Hg] Univer [facility]ity of pressure [place] [facility] Diastolic blood 2023-02-03 18:33:00 85 mm[Hg] Unive rsity of pressure [place] [facility] Heart rate 2023-02-03 18:33:00 65 /min [facility] Body temperature 2023-02-03 18:33:00 36.67 [facility]vira [facility] [place] [facility] Respiratory rate 2023-02-03 18:33:00 16 /min Univ ersity of [facility] Branch Body height 2023-02-03 18:33:00 162.6 cm [facility] [place] [facility] Body weight 2023-02-03 18:33:00 92.534 kg [facility] [place] [facility] BMI 2023-02-03 18:33:00 35.02 kg/m2 [facility] [place] [facility] Body height 2023-01-21 15:45:00 [facility] 2023-01-21 15:45:00 [facility] BMI 2023-01-21 15:45:00 35.70 kg[facility]m2 [facility] Systolic blood 2023-01-08 16:01:00 137 mm[Hg] Univer sity of pressure [place] [facility] Diastolic blood 2023-01-08 16:01:00 85 mm[Hg] Unive rsity of pressure [facility] Heart rate 2023-01-08 15:59:00 55 /min [facility] Body temperature 2023-01-08 15:59:00 37 [facility]vira [facility] [place] [facility] Body height 2023-01-08 15:59:00 165.1 cm [facility] [place] [facility] Body weight 2023-01-08 15:59:00 92.534 kg [facility] [place] [facility] BMI 2023-01-08 15:59:00 33.95 kg/m2 [facility] [place] [facility] Oxygen saturation in 2023-01-08 15:59:00 98 /min [facility] of Arterial blood by [place] [employer] [facility] Branch Body height 2022-12-31 15:03:00 162.6 [facility] weight 2022-12-31 15:03:00 94.348 [facility] BMI 2022-12-31 15:03:00 35.70 kg/m2 [facility] Systolic blood 2022-12-29 13:40:00 140 mm[Hg] Univer sity of pressure [facility] Diastolic blood 2022-12-29 13:40:00 80 mm[Hg] Unive rsity of [facility] Heart rate 2022-12-29 13:40:00 66 /min [facility] [place] [facility] [place] Body temperature 2022-12-29 13:40:00 35.56 Elvira [facility] ersity of [facility] Respiratory rate 2022-12-29 13:40:00 20 /min Univ ersity of [facility] Body height 2022-12-29 13:40:00 152.4 cm [facility] Body weight 2022-12-29 13:40:00 91.627 kg Universi ty of [facility] BMI 2022-12-29 13:40:00 39.45 kg/m2 [facility] Oxygen saturation in 2022-12-29 13:40:00 100 /min [facility] Arterial blood by [place] [employer] [facility] Body height 2022-12-10 15:59:00 [facility]6 [facility] Body weight 2022-12-10 15:59:00 94.348 [facility] BMI 2022-12-10 15:59:00 35.70 kg[facility]2 [facility] Body height 2022-11-19 16:01:00 [facility].6 [facility] Body weight 2022-11-19 16:01:00 94.348 [facility] BMI 2022-11-19 16:01:00 35.70 kg[facility]m2 [facility] Systolic blood 2022-11-12 17:27:00 130 mm[Hg] Univer sity of [facility] Diastolic blood 2022-11-12 17:27:00 84 mm[Hg] Unive rsity of pressure [facility] Heart rate 2022-11-12 17:27:00 65 /min [facility] Body temperature 2022-11-12 17:27:00 36.78 Elvira [facility] Body height 2022-11-12 17:27:00 165.1 cm [facility] [place] Body weight 2022-11-12 17:27:00 90.719 kg [facility] BMI 2022-11-12 17:27:00 33.28 kg/m2 [facility]i ty of [facility] Oxygen saturation in 2022-11-12 17:27:00 99 /min [facility] of Arterial blood by [employer] [facility] [place] Body height 2022-10-29 17:11:00 [facility].6 [facility] Body weight 2022-10-29 17:11:00 94.348 [facility] BMI 2022-10-29 17:11:00 35.70 kg[facility]m2 [facility] Body height 2022-09-24 19:12:00 162.6 cm [facility] Body weight 2022-09-24 19:12:00 104.327 [facility] BMI 2022-09-24 19:12:00 39.48 kg[facility]m2 [facility] Systolic blood 2022-09-18 16:28:00 114 mm[Hg] Univer sity of pressure [facility] Diastolic blood 2022-09-18 16:28:00 72 mm[Hg] Unive rsity of pressure [facility] Heart rate 2022-09-18 16:28:00 63 /min [facility] Body temperature 2022-09-18 16:28:00 37.06 Elvira Univ ersity of [facility] Body height 2022-09-18 16:28:00 162.6 cm [facility] Body weight 2022-09-18 16:28:00 96.163 kg [facility] BMI 2022-09-18 16:28:00 36.39 kg/m2 [facility] Oxygen saturation in 2022-09-18 16:28:00 96 /min [facility] blood by [place] [facility] Body height 2022-09-17 17:51:00 [...] Ede Respitory Rate 2022-07-17 13:07:11 Memori [facility] [place] Systolic (mm Hg) 2022-07-17 13:06:54 Stefan rial [place] Diastolic (mm Hg) 2022-07-17 13:06:54 Mem orial [place] Heart Rate 2022-07-17 13:06:54 [facility] Temperature Oral (F) 2022-07-17 13:06:50 99 F [facility] Heart Rate 2022-07-17 10:15:30 [facility] Respitory Rate 2022-07-17 10:15:30 [facility] [place] Systolic (mm Hg) 2022-07-17 10:15:21 Stefan rial [place] Diastolic (mm Hg) 2022-07-17 10:15:21 Mem orial [facility] Temperature Oral (F) 2022-07-17 10:14:55 98.6 F [facility] Respitory Rate 2022-07-17 06:39:06 [facility] Systolic (mm Hg) 2022-07-17 06:38:47 Stefan rial [place] Diastolic (mm Hg) 2022-07-17 06:38:47 Mem orial [facility] Temperature Oral (F) 2022-07-17 06:38:29 100.1 F [facility] Height 2022-07-14 20:55:00 165.1 cm [facility] Weight 2022-07-14 20:55:00 [facility] BMI Calculated 2022-07-14 20:55:00 [facility] [place] Height 2022-07-02 12:57:00 162.56 cm [facility] Weight 2022-07-02 12:57:00 [facility] BMI Calculated 2022-07-02 12:57:00 [facility] Systolic blood 2022-06-07 03:01:00 120 mm[Hg] [facility] pressure Diastolic blood 2022-06-07 03:01:00 62 mm[Hg] [facility] pressure Heart rate 2022-06-07 03:01:00 65 /min [facility] Respiratory rate 2022-06-07 03:01:00 18 /min [facility] Oxygen saturation in 2022-06-07 03:01:00 97 /min [facility] Arterial blood by Pulse oximetry Body height 2022-06-06 23:39:00 165.1 cm [facility] Body weight 2022-06-06 23:39:00 99.791 kg [facility] BMI 2022-06-06 23:39:00 36.61 kg/m2 [facility] Body temperature 2022-06-06 23:27:39 36.72 Elvira [facility] Systolic blood 2022-02-21 01:00:00 151 mm[Hg] [facility] Diastolic blood 2022-02-21 01:00:00 80 mm[Hg] [facility] Heart rate 2022-02-21 01:00:00 90 /min [facility] Body temperature 2022-02-21 01:00:00 36.5 Elvira [facility] Respiratory rate 2022-02-21 01:00:00 18 /min [facility] Oxygen saturation in 2022-02-21 01:00:00 97 /min [facility] Arterial blood by Medical Ce nter Pulse oximetry Body height 2022-02-20 19:22:00 165.1 cm [facility] Body weight 2022-02-20 19:22:00 99.791 kg [facility] BMI 2022-02-20 19:22:00 36.61 kg/m2 [facility] Procedures Procedure Date / Time Performing Clinician Source Performed [facility] PATIENT FINANCIAL 2022-12-29 13:22:51 Doctor Unassigned, No [facility] POLICY Name Medical Branch POCT URINALYSIS 2022-12-29 00:00:00 Marcial Dobbs [facility] BASIC METABOLIC PANEL 2022-11-12 18:07:00 [facility] (NA, K, CL, CO2, Darby M Medical [facility] GLUCOSE, BUN, CREATININE, CA) CONSENT/REFUSAL FOR 2022-11-12 17:07:28 Doctor Unassigned, No [facility] DIAGNOSIS AND TREATMENT Name Medical Branch POCT URINALYSIS 2022-11-12 00:00:00 [facility] [place] [facility]EL[facility] CONTRAST 2022-06-07 00:38:30 Elton Stringer [facility] MR LUMBAR SPINE WITHOUT 2022-02-20 21:52:00 Brian Morton [facility] IV CONTRAST Center Thyroidectomy [facility] EGD [facility] (esophagogastroduodenosc opy) gastric outlet reduction Colonoscopy [facility] LAMINECTOMY [facility] SUBTALAR FUSION [facility] Hysterectomy [facility] HERNIA REPAIR [facility] Plan of Care Planned Activity Planned Date Details Comments Source Future Scheduled 2023-06-11 INFLUENZA VACCINE [facility] Test 00:00:00 (Season Ended) [code = Medic al Center INFLUENZA VACCINE (Season Ended)] Future Scheduled 2023-01-29 Hepatitis C screening [facility] Test 01:02:57 (procedure) [code = 390122830] Future Scheduled 2023-01-29 Screening for [facility] Test 01:02:57 malignant neoplasm of cervix (procedure) [code = 856435437] Future Scheduled 2023-01-29 COLONOSCOPY SCREENING [facility] Test 01:02:57 [code = COLONOSCOPY SCREENING] Future Scheduled 2023-01-29 SHINGLES VACCINES (1 [facility] Test 01:02:57 of 2) [code = SHINGLES VACCINES (1 of 2)] Future Scheduled 2023-01-29 COVID-19 VACCINE (4 - [facility] Test 01:02:57 Booster for Moderna series) [code = COVID-19 VACCINE (4 - Booster for Moderna series)] Future Scheduled 2023-01-29 INFLUENZA VACCINE [facility] Test 01:02:57 [code = INFLUENZA VACCINE] Future Scheduled 2023-01-29 BREAST CANCER [facility] Test 01:02:57 SCREENING [code = BREAST CANCER SCREENING] Future Scheduled 2022-10-02 Hepatitis C screening [facility] Test 12:15:43 (procedure) [code = [id number]] Future Scheduled 2022-10-02 Screening for [facility] Test 12:15:43 malignant neoplasm of cervix (procedure) [code = 736297396] Future Scheduled 2022-10-02 BREAST CANCER [facility] Test 12:15:43 SCREENING [code = BREAST CANCER SCREENING] Future Scheduled 2022-10-02 COLONOSCOPY SCREENING Me [facility] Test 12:15:43 [code = COLONOSCOPY SCREENING] Future Scheduled 2022-10-02 SHINGLES VACCINES (1 [facility] Test 12:15:43 of 2) [code = SHINGLES VACCINES (1 of 2)] Future Scheduled 2022-10-02 COVID-19 VACCINE (4 - [facility] Test 12:15:43 Booster for Moderna series) [code = COVID-19 VACCINE (4 - Booster for Moderna series)] Future Scheduled 2022-10-02 INFLUENZA VACCINE [facility] Test 12:15:43 [code = INFLUENZA VACCINE] Future Scheduled 2022-10-02 Hepatitis C screening Me [facility] Test 12:15:43 (procedure) [code = 511210616] Future Scheduled 2022-10-02 Screening for [facility] Test 12:15:43 malignant neoplasm of cervix (procedure) [code = 173996308] Future Scheduled 2022-10-02 BREAST CANCER [facility] Test 12:15:43 SCREENING [code = BREAST CANCER SCREENING] Future Scheduled 2022-10-02 COLONOSCOPY SCREENING [facility] Test 12:15:43 [code = COLONOSCOPY SCREENING] Future Scheduled 2022-10-02 SHINGLES VACCINES (1 [facility] Test 12:15:43 of 2) [code = SHINGLES VACCINES (1 of 2)] Future Scheduled 2022-10-02 COVID-19 VACCINE (4 - Me [facility] Test 12:15:43 Booster for Moderna series) [code = COVID-19 VACCINE (4 - Booster for Moderna series)] Future Scheduled 2022-10-02 INFLUENZA VACCINE [facility] Test 12:15:43 [code = INFLUENZA VACCINE] Future Scheduled 2022-10-02 Hepatitis C screening Me [facility] Test 12:15:43 (procedure) [code = [id number]] Future Scheduled 2022-10-02 [facility] Test 12:15:43 malignant neoplasm of cervix (procedure) [code = 320853552] Future Scheduled 2022-10-02 BREAST CANCER [facility] Test 12:15:43 SCREENING [code = BREAST CANCER SCREENING] Future Scheduled 2022-10-02 COLONOSCOPY SCREENING Me [facility] Test 12:15:43 [code = COLONOSCOPY SCREENING] Future Scheduled 2022-10-02 SHINGLES VACCINES (1 [facility] Test 12:15:43 of 2) [code = SHINGLES VACCINES (1 of 2)] Future Scheduled 2022-10-02 COVID-19 VACCINE (4 - [facility] Test 12:15:43 Booster for Moderna series) [code = COVID-19 VACCINE (4 - Booster for Moderna series)] Future Scheduled 2022-10-02 INFLUENZA VACCINE [facility] Test 12:15:43 [code = INFLUENZA VACCINE] Future Scheduled 2022-10-01 Hepatitis C screening [facility] Test 11:57:26 (procedure) [code = 123184831] Future Scheduled 2022-10-01 Screening for [facility] Test 11:57:26 malignant neoplasm of cervix (procedure) [code = 069944683] Future Scheduled 2022-10-01 BREAST CANCER [facility] Test 11:57:26 SCREENING [code = BREAST CANCER SCREENING] Future Scheduled 2022-10-01 COLONOSCOPY SCREENING [facility] Test 11:57:26 [code = COLONOSCOPY SCREENING] Future Scheduled 2022-10-01 SHINGLES VACCINES (1 Met [facility] Test 11:57:26 of 2) [code = SHINGLES VACCINES (1 of 2)] Future Scheduled 2022-10-01 COVID-19 VACCINE (4 - Me [facility] Test 11:57:26 Booster for Moderna series) [code = COVID-19 VACCINE (4 - Booster for Moderna series)] Future Scheduled 2022-10-01 INFLUENZA VACCINE [facility] Test 11:57:26 [code = INFLUENZA VACCINE] Future Scheduled 2022-10-01 Hepatitis C screening [facility] Test 11:57:26 (procedure) [code = 294165746] Future Scheduled 2022-10-01 Screening for [facility] Test 11:57:26 malignant neoplasm of cervix (procedure) [code = 505012998] Future Scheduled 2022-10-01 BREAST CANCER [facility] Test 11:57:26 SCREENING [code = BREAST CANCER SCREENING] Future Scheduled 2022-10-01 COLONOSCOPY SCREENING [facility] Test 11:57:26 [code = COLONOSCOPY SCREENING] Future Scheduled 2022-10-01 SHINGLES VACCINES (1 [facility] Test 11:57:26 of 2) [code = SHINGLES VACCINES (1 of 2)] Future Scheduled 2022-10-01 COVID-19 VACCINE (4 - [facility] Test 11:57:26 Booster for Moderna series) [code = COVID-19 VACCINE (4 - Booster for Moderna series)] Future Scheduled 2022-10-01 INFLUENZA VACCINE [facility] Test 11:57:26 [code = INFLUENZA VACCINE] Future Scheduled 2022-09-28 Hepatitis C screening [facility] Test 01:56:16 (procedure) [code = 014978604] Future Scheduled 2022-09-28 BREAST CANCER [facility] Test 01:56:16 SCREENING [code = BREAST CANCER SCREENING] Future Scheduled 2022-09-28 COLONOSCOPY SCREENING [facility] Test 01:56:16 [code = COLONOSCOPY SCREENING] Future Scheduled 2022-09-28 SHINGLES VACCINES (1 Met [facility] Test 01:56:16 of 2) [code = SHINGLES VACCINES (1 of 2)] Future Scheduled 2022-09-28 COVID-19 VACCINE (4 - [facility] Test 01:56:16 Booster for Moderna series) [code = COVID-19 VACCINE (4 - Booster for Moderna series)] Future Scheduled 2022-09-28 INFLUENZA VACCINE [facility] Test 01:56:16 [code = INFLUENZA VACCINE] Future Scheduled 2022-09-24 Hepatitis C screening [facility] Test 13:04:41 (procedure) [code = 509292330] Future Scheduled 2022-09-24 BREAST CANCER [facility] Test 13:04:41 SCREENING [code = BREAST CANCER SCREENING] Future Scheduled 2022-09-24 COLONOSCOPY SCREENING [facility] Test 13:04:41 [code = COLONOSCOPY SCREENING] Future Scheduled 2022-09-24 SHINGLES VACCINES (1 Met [facility] Test 13:04:41 of 2) [code = SHINGLES VACCINES (1 of 2)] Future Scheduled 2022-09-24 COVID-19 VACCINE (4 - [facility] Test 13:04:41 Booster for Moderna series) [code = COVID-19 VACCINE (4 - Booster for Moderna series)] Future Scheduled 2022-09-24 INFLUENZA VACCINE [facility] Test 13:04:41 [code = INFLUENZA VACCINE] Future Scheduled 2022-09-17 HEPATITIS B VACCINES Met [facility] Test 11:46:18 (1 of 3 - 3-dose series) [code = HEPATITIS B VACCINES (1 of 3 - 3-dose series)] Future Scheduled 2022-09-17 Hepatitis C screening [facility] Test 11:46:18 (procedure) [code = 265840821] Future Scheduled 2022-09-17 Screening for [facility] Test 11:46:18 malignant neoplasm of cervix (procedure) [code = 323295595] Future Scheduled 2022-09-17 BREAST CANCER [facility] Test 11:46:18 SCREENING [code = BREAST CANCER SCREENING] Future Scheduled 2022-09-17 COLONOSCOPY SCREENING [facility] Test 11:46:18 [code = COLONOSCOPY SCREENING] Future Scheduled 2022-09-17 SHINGLES VACCINES (1 Met [facility] Test 11:46:18 of 2) [code = SHINGLES VACCINES (1 of 2)] Future Scheduled 2022-09-17 COVID-19 VACCINE (4 - [facility] Test 11:46:18 Booster for Moderna series) [code = COVID-19 VACCINE (4 - Booster for Moderna series)] Future Scheduled 2022-09-17 INFLUENZA VACCINE [facility] Test 11:46:18 [code = INFLUENZA VACCINE] Future Scheduled 2022-09-09 HEPATITIS B VACCINES Met [facility] Test 13:39:09 (1 of 3 - 3-dose series) [code = HEPATITIS B VACCINES (1 of 3 - 3-dose series)] Future Scheduled 2022-09-09 Hepatitis C screening [facility] Test 13:39:09 (procedure) [code = [id number]] Future Scheduled 2022-09-09 Screening for [facility] Test 13:39:09 malignant neoplasm of cervix (procedure) [code = 237790974] Future Scheduled 2022-09-09 BREAST CANCER [facility] Test 13:39:09 SCREENING [code = BREAST CANCER SCREENING] Future Scheduled 2022-09-09 COLONOSCOPY SCREENING [facility] Test 13:39:09 [code = COLONOSCOPY SCREENING] Future Scheduled 2022-09-09 SHINGLES VACCINES (1 Met [facility] Test 13:39:09 of 2) [code = SHINGLES VACCINES (1 of 2)] Future Scheduled 2022-09-09 COVID-19 VACCINE (4 - [facility] Test 13:39:09 Booster for Moderna series) [code = COVID-19 VACCINE (4 - Booster for Moderna series)] Future Scheduled 2022-09-09 INFLUENZA VACCINE Method [facility] Test 13:39:09 [code = INFLUENZA VACCINE] Future Scheduled 2022-08-26 HEPATITIS B VACCINES Met [facility] Test 10:11:29 (1 of 3 - 3-dose series) [code = HEPATITIS B VACCINES (1 of 3 - 3-dose series)] Future Scheduled 2022-08-26 Hepatitis C screening [facility] Test 10:11:29 (procedure) [code = 287349547] Future Scheduled 2022-08-26 Screening for [facility] Test 10:11:29 malignant neoplasm of cervix (procedure) [code = 938521594] Future Scheduled 2022-08-26 BREAST CANCER [facility] Test 10:11:29 SCREENING [code = BREAST CANCER SCREENING] Future Scheduled 2022-08-26 COLONOSCOPY SCREENING [facility] Test 10:11:29 [code = COLONOSCOPY SCREENING] Future Scheduled 2022-08-26 SHINGLES VACCINES (1 Met [facility] Test 10:11:29 of 2) [code = SHINGLES VACCINES (1 of 2)] Future Scheduled 2022-08-26 COVID-19 VACCINE (4 - [facility] Test 10:11:29 Booster for Moderna series) [code = COVID-19 VACCINE (4 - Booster for Moderna series)] Future Scheduled 2022-08-26 INFLUENZA VACCINE Method [facility] Test 10:11:29 [code = INFLUENZA VACCINE] Future Scheduled 2022-08-26 HEPATITIS B VACCINES Met [facility] Test 10:11:29 (1 of 3 - 3-dose series) [code = HEPATITIS B VACCINES (1 of 3 - 3-dose series)] Future Scheduled 2022-08-26 Hepatitis C screening [facility] Test 10:11:29 (procedure) [code = 203763875] Future Scheduled 2022-08-26 Screening for [facility] Test 10:11:29 malignant neoplasm of cervix (procedure) [code = 050804323] Future Scheduled 2022-08-26 BREAST CANCER [facility] Test 10:11:29 SCREENING [code = BREAST CANCER SCREENING] Future Scheduled 2022-08-26 [facility]OSCOPY [facility]CREENING [facility] Test 10:11:29 [code = COLONOSCOPY SCREENING] Future Scheduled 2022-08-26 SHINGLES VACCINES (1 Met [facility] Test 10:11:29 of 2) [code = SHINGLES VACCINES (1 of 2)] Future Scheduled 2022-08-26 COVID-19 VACCINE (4 - Me [facility] Test 10:11:29 Booster for Moderna series) [code = COVID-19 VACCINE (4 - Booster for Moderna series)] Future Scheduled 2022-08-26 INFLUENZA VACCINE [facility] Test 10:11:29 [code = INFLUENZA VACCINE] Future Scheduled 2022-08-26 HEPATITIS B VACCINES Met [facility] Test 10:11:29 (1 of 3 - 3-dose series) [code = HEPATITIS B VACCINES (1 of 3 - 3-dose series)] Future Scheduled 2022-08-26 Hepatitis C screening [facility] Test 10:11:29 (procedure) [code = 421841679] Future Scheduled 2022-08-26 Screening for [facility] Test 10:11:29 malignant neoplasm of cervix (procedure) [code = 912242924] Future Scheduled 2022-08-26 BREAST CANCER [facility] Test 10:11:29 SCREENING [code = BREAST CANCER SCREENING] Future Scheduled 2022-08-26 COLONOSCOPY SCREENING [facility] Test 10:11:29 [code = COLONOSCOPY SCREENING] Future Scheduled 2022-08-26 SHINGLES VACCINES (1 Met [facility] Test 10:11:29 of 2) [code = SHINGLES VACCINES (1 of 2)] Future Scheduled 2022-08-26 COVID-19 VACCINE (4 - [facility] Test 10:11:29 Booster for Moderna series) [code = COVID-19 VACCINE (4 - Booster for Moderna series)] Future Scheduled 2022-08-26 INFLUENZA VACCINE Method [facility] Test 10:11:29 [code = INFLUENZA VACCINE] Future Scheduled 2022-08-26 HEPATITIS B VACCINES Met [facility] Test 10:11:29 (1 of 3 - 3-dose series) [code = HEPATITIS B VACCINES (1 of 3 - 3-dose series)] Future Scheduled 2022-08-26 Hepatitis C screening [facility] Test 10:11:29 (procedure) [code = 239559944] Future Scheduled 2022-08-26 Screening for [facility] Test 10:11:29 malignant neoplasm of cervix (procedure) [code = 011532286] Future Scheduled 2022-08-26 BREAST CANCER [facility] Test 10:11:29 SCREENING [code = BREAST CANCER SCREENING] Future Scheduled 2022-08-26 COLONOSCOPY SCREENING [facility] Test 10:11:29 [code = COLONOSCOPY SCREENING] Future Scheduled 2022-08-26 SHINGLES VACCINES (1 Met [facility] Test 10:11:29 of 2) [code = SHINGLES VACCINES (1 of 2)] Future Scheduled 2022-08-26 COVID-19 VACCINE (4 - [facility] Test 10:11:29 Booster for Moderna series) [code = COVID-19 VACCINE (4 - Booster for Moderna series)] Future Scheduled 2022-08-26 INFLUENZA VACCINE [facility] Test 10:11:29 [code = INFLUENZA VACCINE] Future Scheduled 2022-08-26 HEPATITIS B VACCINES Met [facility] Test 10:11:29 (1 of 3 - 3-dose series) [code = HEPATITIS B VACCINES (1 of 3 - 3-dose series)] Future Scheduled 2022-08-26 Hepatitis C screening [facility] Test 10:11:29 (procedure) [code = 595252313] Future Scheduled 2022-08-26 Screening for [facility] Test 10:11:29 malignant neoplasm of cervix (procedure) [code = 726782040] Future Scheduled 2022-08-26 BREAST CANCER [facility] Test 10:11:29 SCREENING [code = BREAST CANCER SCREENING] Future Scheduled 2022-08-26 COLONOSCOPY SCREENING [facility] Test 10:11:29 [code = COLONOSCOPY SCREENING] Future Scheduled 2022-08-26 SHINGLES VACCINES (1 Met [facility] Test 10:11:29 of 2) [code = SHINGLES VACCINES (1 of 2)] Future Scheduled 2022-08-26 COVID-19 VACCINE (4 - [facility] Test 10:11:29 Booster for Moderna series) [code = COVID-19 VACCINE (4 - Booster for Moderna series)] Future Scheduled 2022-08-26 INFLUENZA VACCINE [facility] Test 10:11:29 [code = INFLUENZA VACCINE] Future Scheduled 2022-08-26 HEPATITIS B VACCINES Met [facility] Test 10:11:29 (1 of 3 - 3-dose series) [code = HEPATITIS B VACCINES (1 of 3 - 3-dose series)] Future Scheduled 2022-08-26 Hepatitis C screening [facility] Test 10:11:29 (procedure) [code = 793293227] Future Scheduled 2022-08-26 Screening for [facility] Test 10:11:29 malignant neoplasm of cervix (procedure) [code = 054048075] Future Scheduled 2022-08-26 BREAST CANCER [facility] Test 10:11:29 SCREENING [code = BREAST CANCER SCREENING] Future Scheduled 2022-08-26 COLONOSCOPY SCREENING [facility] Test 10:11:29 [code = COLONOSCOPY SCREENING] Future Scheduled 2022-08-26 SHINGLES VACCINES (1 Met [facility] Test 10:11:29 of 2) [code = SHINGLES VACCINES (1 of 2)] Future Scheduled 2022-08-26 COVID-19 VACCINE (4 - [facility] Test 10:11:29 Booster for Moderna series) [code = COVID-19 VACCINE (4 - Booster for Moderna series)] Future Scheduled 2022-08-26 IN[facility]ZA VACCINE [facility] [facility]:11:29 [code = INFLUENZA VACCINE] Future Scheduled 2022-08-26 HEPATITIS B VACCINES Met [facility] Test 10:11:29 (1 of 3 - 3-dose series) [code = HEPATITIS B VACCINES (1 of 3 - 3-dose series)] Future Scheduled 2022-08-26 Hepatitis C screening [facility] Test 10:11:29 (procedure) [code = [id number]] Future Scheduled 2022-08-26 Screening for [facility] Test 10:11:29 malignant neoplasm of cervix (procedure) [code = 695267364] Future Scheduled 2022-08-26 BREAST CANCER [facility] Test 10:11:29 SCREENING [code = BREAST CANCER SCREENING] Future Scheduled 2022-08-26 COLONOSCOPY SCREENING [facility] Test 10:11:29 [code = COLONOSCOPY SCREENING] Future Scheduled 2022-08-26 SHINGLES VACCINES (1 Met [facility] Test 10:11:29 of 2) [code = SHINGLES VACCINES (1 of 2)] Future Scheduled 2022-08-26 COVID-19 VACCINE (4 - [facility] Test 10:11:29 Booster for Moderna series) [code = COVID-19 VACCINE (4 - Booster for Moderna series)] Future Scheduled 2022-08-26 INFLUENZA VACCINE Method [facility] Test 10:11:29 [code = INFLUENZA VACCINE] Future Scheduled 2022-08-26 HEPATITIS B VACCINES Met [facility] Test 10:11:29 (1 of 3 - 3-dose series) [code = HEPATITIS B VACCINES (1 of 3 - 3-dose series)] Future Scheduled 2022-08-26 Hepatitis C screening [facility] Test 10:11:29 (procedure) [code = [id number]] Future Scheduled 2022-08-26 Screening for [facility] Test 10:11:29 malignant neoplasm of cervix (procedure) [code = 872618689] Future Scheduled 2022-08-26 BREAST CANCER [facility] Test 10:11:29 SCREENING [code = BREAST CANCER SCREENING] Future Scheduled 2022-08-26 COLONOSCOPY SCREENING [facility] Test 10:11:29 [code = COLONOSCOPY SCREENING] Future Scheduled 2022-08-26 SHINGLES VACCINES (1 Met [facility] Test 10:11:29 of 2) [code = SHINGLES VACCINES (1 of 2)] Future Scheduled 2022-08-26 COVID-19 VACCINE (4 - [facility] Test 10:11:29 Booster for Moderna series) [code = COVID-19 VACCINE (4 - Booster for Moderna series)] Future Scheduled 2022-08-26 INFLUENZA VACCINE Method [facility] Test 10:11:29 [code = INFLUENZA VACCINE] Future Scheduled 2022-08-26 HEPATITIS B VACCINES Met [facility] Test 10:11:29 (1 of 3 - 3-dose series) [code = HEPATITIS B VACCINES (1 of 3 - 3-dose series)] Future Scheduled 2022-08-26 Hepatitis C screening [facility] Test 10:11:29 (procedure) [code = [id number]] Future Scheduled 2022-08-26 Screening for [facility] Test 10:11:29 malignant neoplasm of cervix (procedure) [code = 552916979] Future Scheduled 2022-08-26 BREAST CANCER [facility] Test 10:11:29 SCREENING [code = BREAST CANCER SCREENING] Future Scheduled 2022-08-26 COLONOSCOPY SCREENING [facility] Test 10:11:29 [code = COLONOSCOPY SCREENING] Future Scheduled 2022-08-26 SHINGLES VACCINES (1 Met [facility] Test 10:11:29 of 2) [code = SHINGLES VACCINES (1 of 2)] Future Scheduled 2022-08-26 COVID-19 VACCINE (4 - Me [facility] Test 10:11:29 Booster for Moderna series) [code = COVID-19 VACCINE (4 - Booster for Moderna series)] Future Scheduled 2022-08-26 INFLUENZA VACCINE Method [facility] Test 10:11:29 [code = INFLUENZA VACCINE] Future Scheduled 2022-08-26 HEPATITIS B VACCINES Met [facility] Test 10:11:29 (1 of 3 - 3-dose series) [code = HEPATITIS B VACCINES (1 of 3 - 3-dose series)] Future Scheduled 2022-08-26 Hepatitis C screening [facility] Test 10:11:29 (procedure) [code = [id number]] Future Scheduled 2022-08-26 Screening for [facility] Test 10:11:29 malignant neoplasm of cervix (procedure) [code = 679629443] Future Scheduled 2022-08-26 BREAST CANCER [facility] Test 10:11:29 SCREENING [code = BREAST CANCER SCREENING] Future Scheduled 2022-08-26 COLONOSCOPY SCREENING [facility] Test 10:11:29 [code = COLONOSCOPY SCREENING] Future Scheduled 2022-08-26 SHINGLES VACCINES (1 Met [facility] Test 10:11:29 of 2) [code = SHINGLES VACCINES (1 of 2)] Future Scheduled 2022-08-26 COVID-19 VACCINE (4 - Me [facility] Test 10:11:29 Booster for Moderna series) [code = COVID-19 VACCINE (4 - Booster for Moderna series)] Future Scheduled 2022-08-26 INFLUENZA VACCINE Method [facility] Test 10:11:29 [code = INFLUENZA VACCINE] Future Scheduled 2022-08-26 HEPATITIS B VACCINES Met [facility] Test 10:11:29 (1 of 3 - 3-dose series) [code = HEPATITIS B VACCINES (1 of 3 - 3-dose series)] Future Scheduled 2022-08-26 Hepatitis C screening [facility] Test 10:11:29 (procedure) [code = [id number]] Future Scheduled 2022-08-26 Screening for [facility] Test 10:11:29 malignant neoplasm of cervix (procedure) [code = 385010728] Future Scheduled 2022-08-26 BREAST CANCER [facility] Test 10:11:29 SCREENING [code = BREAST CANCER SCREENING] Future Scheduled 2022-08-26 COLONOSCOPY SCREENING [facility] Test 10:11:29 [code = COLONOSCOPY SCREENING] Future Scheduled 2022-08-26 SHINGLES VACCINES (1 Met [facility] Test 10:11:29 of 2) [code = SHINGLES VACCINES (1 of 2)] Future Scheduled 2022-08-26 COVID-19 VACCINE (4 - Me [facility] Test 10:11:29 Booster for Moderna series) [code = COVID-19 VACCINE (4 - Booster for Moderna series)] Future Scheduled 2022-08-26 INFLUENZA VACCINE Method [facility] Test 10:11:29 [code = INFLUENZA VACCINE] Future Scheduled 2022-08-26 HEPATITIS B VACCINES Met [facility] Test 10:11:29 (1 of 3 - 3-dose series) [code = HEPATITIS B VACCINES (1 of 3 - 3-dose series)] Future Scheduled 2022-08-26 Hepatitis C screening [facility] Test 10:11:29 (procedure) [code = [id number]] Future Scheduled 2022-08-26 Screening for [facility] Test 10:11:29 malignant neoplasm of cervix (procedure) [code = 728074840] Future Scheduled 2022-08-26 BREAST CANCER [facility] Test 10:11:29 SCREENING [code = BREAST CANCER SCREENING] Future Scheduled 2022-08-26 COLONOSCOPY SCREENING [facility] Test 10:11:29 [code = COLONOSCOPY SCREENING] Future Scheduled 2022-08-26 SHINGLES VACCINES (1 Met [facility] Test 10:11:29 of 2) [code = SHINGLES VACCINES (1 of 2)] Future Scheduled 2022-08-26 COVID-19 VACCINE (4 - [facility] Test 10:11:29 Booster for Moderna series) [code = COVID-19 VACCINE (4 - Booster for Moderna series)] Future Scheduled 2022-08-26 INFLUENZA VACCINE Method [facility] Test 10:11:29 [code = INFLUENZA VACCINE] Future Scheduled 2022-08-26 HEPATITIS B VACCINES Met [facility] Test 10:11:29 (1 of 3 - 3-dose series) [code = HEPATITIS B VACCINES (1 of 3 - 3-dose series)] Future Scheduled 2022-08-26 Hepatitis C screening [facility] Test 10:11:29 (procedure) [code = [id number]] Future Scheduled 2022-08-26 Screening for [facility] Test 10:11:29 malignant neoplasm of cervix (procedure) [code = 504262218] Future Scheduled 2022-08-26 BREAST CANCER [facility] Test 10:11:29 SCREENING [code = BREAST CANCER SCREENING] Future Scheduled 2022-08-26 COLONOSCOPY SCREENING [facility] Test 10:11:29 [code = COLONOSCOPY SCREENING] Future Scheduled 2022-08-26 SHINGLES VACCINES (1 Met [facility] Test 10:11:29 of 2) [code = SHINGLES VACCINES (1 of 2)] Future Scheduled 2022-08-26 COVID-19 VACCINE (4 - [facility] Test 10:11:29 Booster for Moderna series) [code = COVID-19 VACCINE (4 - Booster for Moderna series)] Future Scheduled 2022-08-26 INFLUENZA VACCINE Method [facility] Test 10:11:29 [code = INFLUENZA VACCINE] Future Scheduled 2022-06-30 HEPATITIS B VACCINES Met [facility] Test 12:34:57 (1 of 3 - 3-dose series) [code = HEPATITIS B VACCINES (1 of 3 - 3-dose series)] Future Scheduled 2022-06-30 Hepatitis C screening [facility] Test 12:34:57 (procedure) [code = [id number]] Future Scheduled 2022-06-30 Screening for [facility] Test 12:34:57 malignant neoplasm of cervix (procedure) [code = 076683614] Future Scheduled 2022-06-30 BREAST CANCER [facility] Test 12:34:57 SCREENING [code = BREAST CANCER SCREENING] Future Scheduled 2022-06-30 COLONOSCOPY SCREENING [facility] Test 12:34:57 [code = COLONOSCOPY SCREENING] Future Scheduled 2022-06-30 SHINGLES VACCINES (1 Met [facility] Test 12:34:57 of 2) [code = SHINGLES VACCINES (1 of 2)] Future Scheduled 2022-06-30 COVID-19 VACCINE (4 - [facility] Test 12:34:57 Booster for Moderna series) [code [...] - Booster for Moderna series)] Future Scheduled 2021-12-16 COVID-19 VACCINE (4 [facility] (procedure[facility] [code = [facility] [id number]] Future Scheduled [address] [facility] Test 00:00:00 (procedure) [code = [facility] [id number]] Future Scheduled [address] [facility] Test 00:00:00 (procedure) [code = [facility] [id number]] Future Scheduled [address] [facility] Test 00:00:00 (procedure) [code = [facility] [id number]] Future Scheduled [address] [facility] Test 00:00:00 (procedure) [code = Medical Center [id number]] Future Scheduled [address] [facility] Test 00:00:00 (procedure) [code = [facility] 47434487] Future Scheduled [address] [facility] Test 00:00:00 (procedure) [code = [facility] 97807415] Future Scheduled [address] [facility] Test 00:00:00 (procedure) [code = [facility] 90342534] Future Scheduled [address] [facility] Test 00:00:00 (procedure) [code = Medical Center 86025575] Future Scheduled [address] [facility] Test 00:00:00 (procedure) [code = [facility] 31214205] Future Scheduled [address] [facility] Test 00:00:00 (procedure) [code = [facility] 71751206] Future Scheduled [address] [facility] Test 00:00:00 (procedure) [code = [facility] 05897511] Future Scheduled [address] [facility] Test 00:00:00 (procedure) [code = [facility] 02877441] Future Scheduled [address] [facility] Test 00:00:00 (procedure) [code = [facility] 32403423] Future Scheduled [address] [facility] Test 00:00:00 (procedure) [code = [facility] 98395723] Future Scheduled [address] [facility] Test 00:00:00 (procedure) [code = [facility] 84837673] Future Scheduled [address] [facility] Test 00:00:00 (procedure) [code = [facility] 09531422] Future Scheduled [address] [facility] Test 00:00:00 (procedure) [code = [facility] 58940950] Future Scheduled [address] [facility] Test 00:00:00 (procedure) [code = [facility] 23372316] Future Scheduled [address] [facility] Test 00:00:00 (procedure) [code = [facility] 63706155] Future Scheduled [address] [facility] Test 00:00:00 (procedure) [code = [facility] 50745291] Future Scheduled [address] [facility] Test 00:00:00 (procedure) [code = [facility] 35286579] Future Scheduled [address] [facility] Test 00:00:00 (procedure) [code = [facility] 27840232] Future Scheduled [address] [facility] Test 00:00:00 (procedure) [code = [facility] 43101296] Future Scheduled [address] [facility] cervix (procedure) [code = 496008598] Future Scheduled [address] [facility] 00:00:00 [facility] cervix (procedure) [code = 331414741] Future Scheduled [address] [facility] 00:00:00 [facility] cervix (procedure) [code = 429243270] Future Scheduled [address] [facility] 00:00:00 [facility] cervix (procedure) [code = 352872606] Future Scheduled [address] [facility] 00:00:00 [facility] cervix (procedure) [code = 667506257] Future Scheduled [address] [facility] 00:00:00 [facility] cervix (procedure) [code = 532355169] Future Scheduled [address] [facility] 00:00:00 [facility] cervix (procedure) [code = 325890514] Future Scheduled [address] [facility] 00:00:00 [facility] cervix (procedure) [code = 007613081] Future Scheduled [address] [facility] 00:00:00 [facility] cervix (procedure) [code = 551685578] Future Scheduled [address] [facility] 00:00:00 [facility] cervix (procedure) [code = 983328522] Future Scheduled [address] [facility] 00:00:00 [facility] cervix (procedure) [code = 778597492] Future Scheduled [address] [facility] 00:00:00 [facility] cervix (procedure) [code = 441438047] Future Scheduled [address] [facility] 00:00:00 [facility] cervix (procedure) [code = 521966020] Future Scheduled [address] [facility] 00:00:00 [facility] cervix (procedure) [code = 932616111] Future Scheduled [address] [facility] 00:00:00 [facility] cervix (procedure) [code = 950709881] Future Scheduled [address] [facility] Test 00:00:00 [facility] cervix (procedure) [code = 320584059] Future Scheduled [address] [facility] 00:00:00 [facility] cervix (procedure) [code = 797526987] Future Scheduled [address] [facility] 00:00:00 [facility] cervix (procedure) [code = 261396068] Future Scheduled [address] [facility] 00:00:00 [facility] cervix (procedure) [code = 222814916] Future Scheduled [address] [facility] 00:00:00 [facility] cervix (procedure) [code = 548071833] Future Scheduled [address] [facility] Test 00:00:00 [facility] cervix (procedure) [code = 871172177] Future Scheduled [address] [facility] Test 00:00:00 [facility] cervix (procedure) [code = 246255163] Future Scheduled [address] [facility] 00:00:00 [facility] cervix (procedure) [code = 311529583] Future Scheduled [address] [facility] Test 00:00:00 [facility] cervix (procedure) [code = 622834519] Future Scheduled 1982 DTAP/TDAP/TD VACCINES [facility] [...] [facility] breast (procedure) [code = 591217584] Future Scheduled [address] [facility] Test 00:00:00 (combo) [code = CT Medical [facility] enter Colonography (combo)] Future Scheduled [address] [facility] 00:00:00 [facility] colon (procedure) [code = 937069131] Future Scheduled [address] [facility] 00:00:00 [facility] colon (procedure) [code = 930035757] Future Scheduled [address] [facility] 00:00:00 [facility] colon (procedure) [code = 758184447] Future Scheduled [address] [facility] 00:00:00 [facility] colon (procedure) [code = 458368797] Future Scheduled 1963 Sigmoidoscopy [facility] Future Scheduled [address] [facility] 00:00:00 [facility] breast (procedure) [code = 148922292] Future Scheduled [address] [facility] 00:00:00 (combo) [code = CT Medical [facility] enter Colonography (combo)] Future Scheduled [address] [facility] 00:00:00 [facility] colon (procedure) [code = 410989082] Future Scheduled [address] [facility] 00:00:00 [facility] colon (procedure) [code = 642084703] Future Scheduled [address] [facility] 00:00:00 [facility] colon (procedure) [code = 283314904] Future Scheduled [address] [facility] 00:00:00 [facility] colon (procedure) [code = 154943715] Future Scheduled 1963 S[facility]oscopy [facility] Future Scheduled [address] [facility] 00:00:00 [facility] breast (procedure) [code = 908907956] Future Scheduled [address] [facility] 00:00:00 (combo) [code = CT Medical C enter Colonography (combo)] Future Scheduled [address] [facility] 00:00:00 [facility] colon (procedure) [code = 940188149] Future Scheduled [address] [facility] 00:00:00 [facility] colon (procedure) [code = 449088448] Future Scheduled [address] [facility] 00:00:00 [facility] colon (procedure) [code = 765941336] Future Scheduled [address] [facility] 00:00:00 [facility] colon (procedure) [code = 067908034] Future Scheduled 1963 S[facility]oidoscopy [facility] Future Scheduled [address] [facility] 00:00:00 [facility] breast (procedure) [code = 893338499] Future Scheduled [address] [facility] 00:00:00 (combo) [code = CT Medical C enter Colonography (combo)] Future Scheduled [address] [facility] 00:00:00 [facility] colon (procedure) [code = 525053947] Future Scheduled [address] [facility] 00:00:00 [facility] colon (procedure) [code = 687176041] Future Scheduled [address] [facility] 00:00:00 [facility] colon (procedure) [code = 665122623] Future Scheduled [address] [facility] 00:00:00 [facility] colon (procedure) [code = 663634712] Future Scheduled 1963 S[facility]oidoscopy [facility] Future Scheduled [address] [facility] 00:00:00 [facility] breast (procedure) [code = 727382598] Future Scheduled [address] [facility] 00:00:00 (combo) [code = CT Medical C enter Colonography (combo)] Future Scheduled [address] [facility] 00:00:00 [facility] colon (procedure) [code = 537301853] Future Scheduled [address] [facility] 00:00:00 [facility] colon (procedure) [code = 250584515] Future Scheduled [address] [facility] 00:00:00 [facility] colon (procedure) [code = 938786787] Future Scheduled [address] [facility] 00:00:00 [facility] colon (procedure) [code = 082382571] Future Scheduled 1963 [facility]oscopy [facility] Future Scheduled [address] [facility] 00:00:00 [facility] breast (procedure) [code = 095060203] Future Scheduled [address] [facility] 00:00:00 (combo) [code = CT Medical C enter Colonography (combo)] Future Scheduled [address] [facility] 00:00:00 [facility] breast (procedure) [code = 405719676] Future Scheduled [address] [facility] 00:00:00 (combo) [code = CT Medical C enter Colonography (combo)] Future Scheduled [address] [facility] 00:00:00 [facility] colon (procedure) [code = 554806664] Future Scheduled [address] [facility] 00:00:00 [facility] colon (procedure) [code = 956113489] Future Scheduled [address] [facility] 00:00:00 [facility] colon (procedure) [code = 963302850] Future Scheduled [address] [facility] 00:00:00 [facility] colon (procedure) [code = 613219454] Future Scheduled 1963 [facility] Future Scheduled [address] [facility] 00:00:00 [facility] colon (procedure) [code = 459601900] Future Scheduled [address] [facility] 00:00:00 [facility] colon (procedure) [code = 259424332] Future Scheduled [address] [facility] 00:00:00 [facility] breast (procedure) [code = 866353094] Future Scheduled [address] [facility] 00:00:00 (combo) [code = CT Medical C enter Colonography (combo)] Future Scheduled [address] [facility] 00:00:00 [facility] colon (procedure) [code = 855042219] Future Scheduled [address] [facility] 00:00:00 [facility] colon (procedure) [code = 001613295] Future Scheduled [address] [facility] 00:00:00 [facility] colon (procedure) [code = 245231598] Future Scheduled [address] [facility] 00:00:00 [facility] colon (procedure) [code = 598010685] Future Scheduled [address] [facility] 00:00:00 [facility] colon (procedure) [code = 238977111] Future Scheduled 1963 S[facility]oidoscopy [facility]code [facility]] [facility] Future Scheduled [address] [facility] 00:00:00 [facility] colon (procedure) [code = 560985679] Future Scheduled [address] [facility] 00:00:00 [facility] breast (procedure) [code = 891151837] Future Scheduled 1963 S[facility]oidoscopy [facility]] [facility] Future Scheduled [address] [facility] 00:00:00 (combo) [code = CT Medical C enter Colonography (combo)] Future Scheduled [address] [facility] 00:00:00 [facility] colon (procedure) [code = 670625076] Future Scheduled [address] [facility] 00:00:00 [facility] colon (procedure) [code = 586766085] Future Scheduled [address] [facility] 00:00:00 [facility] colon (procedure) [code = 617346227] Future Scheduled [address] [facility] 00:00:00 [facility] colon (procedure) [code = 993163317] Future Scheduled 1963 Sigmoidoscopy [code [facility]] Medical Rob r Future Scheduled [address] [facility] breast (procedure) [code = 902918367] Future Scheduled [address] [facility] 00:00:00 (combo) [code = CT Medical C enter Colonography (combo)] Future Scheduled [address] [facility] colon (procedure) [code = 529326972] Future Scheduled [address] [facility] 00:[facility]:00 [facility] colon (procedure) [code = 683328894] Future Scheduled [address] [facility] 00:[facility]:00 [facility] colon (procedure) [code = 800420539] Future Scheduled [address] [facility] 00:00:00 [facility] colon (procedure) [code = 049977401] Future Scheduled 1963 Sigmoidoscopy [code [facility] 00[facility] S[facility]] [facility] r Future Scheduled [address] [facility] 00:00:00 [facility] breast (procedure) [code = 335956316] Future Scheduled [address] [facility] 00:00:00 (combo) [code = CT Medical C enter Colonography (combo)] Future Scheduled [address] [facility] 00:00:00 [facility] colon (procedure) [code = 343325759] Future Scheduled [address] [facility] 00:00:00 [facility] colon (procedure) [code = 652502579] Future Scheduled [address] [facility] 00:00:00 [facility] colon (procedure) [code = 011542410] Future Scheduled [address] [facility] 00:00:00 [facility] colon (procedure) [code = 393990245] Future Scheduled 1963 Sigmoidoscopy [facility]code [facility]oscopy] Medical Anaye r Future Scheduled [address] [facility] 00:00:00 [facility] breast (procedure) [code = 374038112] Future Scheduled [address] [facility] 00:00:00 (combo) [code = CT Medical C enter Colonography (combo)] Future Scheduled [address] [facility] 00:00:00 [facility] colon (procedure) [code = 843683933] Future Scheduled [address] [facility] 00:00:00 [facility] colon (procedure) [code = 227230958] Future Scheduled [address] [facility] 00:00:00 [facility] colon (procedure) [code = 622648412] Future Scheduled [address] [facility] 00:00:00 [facility] colon (procedure) [code = 599870521] Future Scheduled 1963 Sigmoidoscopy [facility] [address] [facility] 00:00:00 [facility] breast (procedure) [code = 818180474] Future Scheduled [address] [facility] 00:00:00 (combo) [code = CT Medical C enter Colonography (combo)] Future Scheduled [address] [facility] 00:00:00 [facility] colon (procedure) [code = 540202304] Future Scheduled [address] [facility] 00:00:00 [facility] colon (procedure) [code = 302558454] Future Scheduled [address] [facility] 00:00:00 [facility] colon (procedure) [code = 789944289] Future Scheduled [address] [facility] 00:00:00 [facility] colon (procedure) [code = 499199507] Future Scheduled 1963 S[facility]oidoscopy [facility]oscopy] Medical Anaye r Future Scheduled [address] [facility] 00:00:00 [facility] breast (procedure) [code = 066770757] Future Scheduled [address] [facility] 00:00:00 (combo) [code = CT Medical C enter Colonography (combo)] Future Scheduled [address] [facility] 00:00:00 [facility] colon (procedure) [code = 971865166] Future Scheduled [address] [facility] 00:00:00 [facility] colon (procedure) [code = 123078618] Future Scheduled [address] [facility] 00:00:00 [facility] colon (procedure) [code = 820945447] Future Scheduled [address] [facility] 00:00:00 [facility] colon (procedure) [code = 182682965] Future Scheduled 1963 Sigmoidoscopy [facility]code [facility] 00[facility]oscopy] Medical Rob r Future Scheduled [address] [facility] 00:00:00 [facility] breast (procedure) [code = 143074413] Future Scheduled [address] [facility] 00:00:00 (combo) [code = CT Medical C enter Colonography (combo)] Future Scheduled [address] [facility] 00:00:00 [facility] colon (procedure) [code = 224414411] Future Scheduled [address] [facility] 00:00:00 [facility] colon (procedure) [code = 634478332] Future Scheduled [address] [facility] 00:00:00 [facility] colon (procedure) [code = 609165045] Future Scheduled [address] [facility] 00:00:00 [facility] colon (procedure) [code = 610098046] Future Scheduled 1963 S[facility]oidoscopy [facility] [address] [facility] 00[facility]00:00 malignant [facility] breast (procedure) [code = 445185187] Future Scheduled [address] [facility] 00:00:00 (combo) [code = CT Medical C enter Colonography (combo)] Future Scheduled [address] [facility] 00:00:00 [facility] colon (procedure) [code = 053989600] Future Scheduled [address] [facility] 00:00:00 [facility] breast (procedure) [code = 996234316] Future Scheduled [address] [facility] 00:00:00 [facility] colon (procedure) [code = 020249696] Future Scheduled [address] [facility] 00:00:00 [facility] colon (procedure) [code = 489304864] Future Scheduled [address] [facility] 00:00:00 [facility] colon (procedure) [code = 427458500] Future Scheduled 1963 S[facility]oidoscopy [facility]] [facility] [address] [facility] 00:00:00 (combo) [code = CT Medical C enter Colonography (combo)] Future Scheduled [address] [facility] 00:00:00 [facility] colon (procedure) [code = 651833007] Future Scheduled [address] [facility] 00:00:00 [facility] breast (procedure) [code = 857528011] Future Scheduled [address] [facility] 00:00:00 (combo) [code = CT Medical C enter Colonography (combo)] Future Scheduled [address] [facility] 00:00:00 [facility] colon (procedure) [code = 256595635] Future Scheduled [address] [facility] 00:00:00 [facility] colon (procedure) [code = 799555117] Future Scheduled [address] [facility] 00:00:00 [facility] colon (procedure) [code = 788657287] Future Scheduled [address] [facility] 00:00:00 [facility] colon (procedure) [code = 907513715] Future Scheduled 1963 Sigmoidoscopy [[facility] 00:[facility]] [facility] Future Scheduled [address] [facility] 00:00:00 malignant [facility] colon (procedure) [code = 677402650] Future Scheduled [address] [facility] 00:00:00 [facility] colon (procedure) [code = 083062404] Future Scheduled [address] [facility] 00:00:00 [facility] breast (procedure) [code = 782233249] Future Scheduled [address] [facility] 00:00:00 (combo) [code = CT Medical C enter Colonography (combo)] Future Scheduled [address] [facility] 00:00:00 [facility] colon (procedure) [code = 586484869] Future Scheduled [address] [facility] 00:00:00 [facility] colon (procedure) [code = 508398730] Future Scheduled [address] [facility] 00:00:00 [facility] colon (procedure) [code = 634597805] Future Scheduled [address] [facility] 00:00:00 [facility] colon (procedure) [code = 576384383] Future Scheduled [address] [facility] 00:00:00 [facility] colon (procedure) [code = 601677628] Future Scheduled 1963 S[facility]oidoscopy [facility]] [facility] Future Scheduled 1963 S[facility]oscopy [code [facility] 00:[facility] S[facility]oscopy] [facility] Future Scheduled [address] [facility] 00:00:00 [facility] breast (procedure) [code = 771204214] Future Scheduled [address] [facility] 00:00:00 (combo) [code = CT Medical C enter Colonography (combo)] Future Scheduled [address] [facility] 00:00:00 [facility] colon (procedure) [code = 924790733] Future Scheduled [address] [facility] 00:00:00 [facility] colon (procedure) [code = 696613097] Future Scheduled [address] [facility] 00:00:00 [facility] colon (procedure) [code = 078469848] Future Scheduled [address] [facility] 00:00:00 [facility] colon (procedure) [code = 038626452] Future Scheduled 1963 Sigmoidoscopy [facility]] [facility] Future Scheduled [address] [facility] breast (procedure) [code = 896138458] Future Scheduled [address] [facility] 00:00:00 (combo) [code = CT Medical C enter Colonography (combo)] Future Scheduled [address] [facility] 00:00:00 [facility] colon (procedure) [code = 905740399] Future Scheduled [address] [facility] 00:00:00 [facility] colon (procedure) [code = 209301781] Future Scheduled [address] [facility] 00:00:00 [facility] colon (procedure) [code = 074208489] Future Scheduled [address] [facility] 00:00:00 [facility] colon (procedure) [code = 127731386] Future Scheduled 1963 S[facility]oidoscopy [facility]] [facility] Future Scheduled [address] [facility] 00:00:00 [facility] breast (procedure) [code = 949928961] Future Scheduled [address] [facility] 00:00:00 (combo) [code = CT Medical C enter Colonography (combo)] Future Scheduled [address] [facility] 00:00:00 [facility] colon (procedure) [code = 063651847] Future Scheduled [address] [facility] 00:00:00 [facility] colon (procedure) [code = 539602537] Future Scheduled [address] [facility] 00:00:00 [facility] colon (procedure) [code = 784361765] Future Scheduled [address] [facility] 00:00:00 [facility] colon (procedure) [code = 986143751] Future Scheduled 1963 S[facility]oidoscopy [facility]] [facility] Cent[facility] Future Scheduled [address] [facility] 00:00:00 [facility] breast (procedure) [code = 410204978] Future Scheduled [address] [facility] 00:00:00 (combo) [code = CT Medical C enter Colonography (combo)] Future Scheduled [address] [facility] 00:00:00 [facility] colon (procedure) [code = 529270235] Future Scheduled [address] [facility] 00:00:00 [facility] colon (procedure) [code = 571571352] Future Scheduled [address] [facility] 00:00:00 [facility] colon (procedure) [code = 197230217] Future Scheduled [address] [facility] 00:00:00 [facility] colon (procedure) [code = 743091789] Future Scheduled 1963 Sigmoidoscopy [facility]code [facility]] [facility] Cent[facility] Future Scheduled [address] [facility] 00:00:00 [facility] colon (procedure) [code = 367767987] Future Scheduled [address] [facility] 00:00:00 [facility] colon (procedure) [code = 204871339] Future Scheduled [address] [facility] 00:00:00 malignant [facility] colon (procedure) [code = 639180102] Future Scheduled 1963 Sigmoidoscopy [facility]code [facility]] [facility] Cent[facility] Future Scheduled [address] [facility] 00:00:00 [facility] breast (procedure) [code = 886210248] Future Scheduled [address] [facility] 00:00:00 (combo) [code = CT Medical C enter Colonography (combo)] Future Scheduled [address] [facility] 00:00:00 [facility] colon (procedure) [code = 453685804] Encounters Start End Encounter Admission Attending Care Care Encounter Source Date/Time Date/Time Type Type Clinicians Facility Department ID 2023-02-17 Outpatient [facility] [id number] [place] 09:02:21 [id number] [facility] 2023-01-28 [place] [id number] [place] 15:19:29 [id number] [facility] 2023-01-19 [place]patient [place] [id number] [place] 13:01:35 [id number] [facility] 2022-12-30 [place]patient [place] [id number] [place] 10:14:19 [id number] [facility] 2022-12-29 Outpatient [place] [id number] UT 13:52:53 [id number] [facility] 2022-12-09 Outpatient [place] [id number] UT 07:41:20 [id number] [facility] 2022-11-16 Outpatient [place] [id number] UT 10:39:24 [id number] [facility] 2022-10-28 [place]patient [place] [id number] UT 13:30:39 [id number] [facility] 2022-10-20 Outpatient [facility] UT [id number] UT 13:35:42 [id number] [facility] 2022-10-03 Outpatient [facility] [id number] [place] 16:42:57 [id number] [facility] 2022-09-23 Outpatient [facility] [id number] [place] 10:30:17 [id number] [facility] 2022-09-17 Outpatient [facility] UT [id number] UT 10:15:38 [id number] [facility] 2022-09-02 Outpatient [facility] UT [id number] UT 11:19:41 [id number] [facility] 2022-08-28 Outpatient [facility] [id number] [place] 08:34:05 [id number] [facility] 2022-08-20 Outpatient [facility] UT [id number] UT 09:28:05 [id number] [facility] 2022-08-11 Outpatient [facility] UT [id number] UT 16:02:03 [id number] [facility] 2022-07-28 Outpatient [place] UT [id number] UT 09:55:18 [id number] [facility] 2022-05-27 Outpatient R ERMELINDA ORJUAN SOR [id number] Univers 15:20:24 RHETT carroll [facility] 2022-05-27 Outpatient ERMELINDA ORJUAN SOR [id number] Univers 11:58:36 RHETT carroll [facility] 2021-08-09 Emergency [facility] [id number] Univers 12:48:28 ity [facility] 2023-05-12 2023-05-12 Outpatient ELMER [facility] [id number] [place] 10:45:00 10:45:00 BARRY [facility] 2023-03-19 2023-03-19 Outpatient R RINKU [facility] [id number] Univers 10:30:00 10:30:00 MARCIAL carroll [facility] 2023-02-03 2023-02-03 Outpatient R BERNICE [facility] [id number] Univers 13:30:00 14:04:58 [facility] 2023-02-03 [id number] [facility] 13:30:00 14:04:58 Visit Jacky Vizibility 350.1.13.10 it y [place] [id number] [address] OFFICE BUILDING 2023-01-21 2023-01-21 Outpatient [facility] [id number] [place] 10:00:00 15:55:11 Health 2023-01-21 2023-01-21 Office Elmer [facility] 1.2.840.114 [id number] [place] 10:15:00 11:04:02 Visit Barry MELGAR 350.1.13.58 [facility] 9.2.7.2.686 [address] [id number] 2023-01-11 2023-01-11 Telephone Rinku [facility] [id number] Univers 00:00:00 00:00:00 Marcial HEALTH 350.1.13.10 it y of [place] 4.2.7.2.686 Branden as VIKTOR?BLEA [id number] Mo clemente [address] MEDICAL OFFICE BUILDING 2023-01-08 2023-01-08 [employer], Ang - Db [facility] 1.2.840.1 [id number] Univers 11:30:00 11:45:00 Visit Marcial Dobbs 350.1.13.10 ity of [place] 4.2.7.2.686 Branden as VIKTOR?BLEA [id number] Mo clemente LIZ [address] MEDICAL OFFICE [facility] 2023-01-08 2023-01-08 [facility] [id number] Univers 11:00:00 11:30:34 MARCIAL carroll [facility] 2023-01-08 2023-01-08 Office [facility] 1.2.840.114 [id number] Univers 11:00:00 11:30:34 Visit Marcial CINTRON 350.1.13.10 [facility] 4.2.7.2.686 Branden as VIKTOR?BLEA [id number] Mo clemente [facility] 044 [facility] 2023-01-01 2023-01-01 Outpatient MERVAT [facility] [id number] [place] 09:00:00 09:00:00 GURU Heal 2022-12-31 2022-12-31 [facility] [id number] Univers 13:37:15 23:59:00 MARCIAL carroll [facility] 2022-12-31 2022-12-31 [facility] 1.2.840.114 [id number] Univers 13:37:15 23:59:00 Encounter Marcial ALMAZAN 350.1.13.10 ity binh [place] 4.2.7.2.686 [id number] [address] 2022-12-31 2022-12-31 Outpatient [facility] [id number] [place] 10:15:00 10:58:57 Health 2022-12-31 2022-12-31 Office Elmer [facility] 1.2.840.114 [id number] [place] 10:15:00 10:48:08 Visit Barry MELGAR 350.1.13.58 [facility] 9.2.7.2.686 [address] [id number] 2022-12-31 2022-12-31 Telephone [facility] [id number] [facility] 00:00:00 00:00:00 Marcial CINTRON 350.1.13.10 [facility] 4.2.7.2.686 Branden as VIKTOR?BLEA [id number] [address] [facility] 2022-12-31 2022-12-31 Telephone Rinku [facility] [id number] [id number] Univers 00:00:00 00:00:00 Marcial HEALTH 350.1.13.10 it y of [place] 4.2.7.2.686 Branden as VIKTOR?BLEA [id number] [address] [facility] 2022-12-29 2022-12-29 Outpatient R RINKU [facility] [id number] Univers 08:30:00 09:30:50 MARCIAL ity of [facility] 2022-12-29 2022-12-29 [facility] 1.2.840.114 [id number] Univers 08:30:00 09:30:50 Visit [facility] 350.1.13.10 [facility] 4.2.7.2.686 Branden as VIKTOR?BLEA [id number] [address] MEDICAL [facility]ICE [facility] 2022-12-29 2022-12-29 Orders Doctor PINYK 1.2.840.114 [id number] Univers 00:00:00 00:00:00 Only Unassigned, HUDSON 350.1.13.10 ity of [place] [facility] 4.2.7.2.686 Branden as [id number] [address] 2022-12-29 2022-12-29 Refill Rinku [facility] 1.2.840.114 [id number] Univers 00:00:00 00:00:00 Marcial HEALTH 350.1.13.10 it y of [place] 4.2.7.2.686 Branden as VIKTOR?BLEA [id number] [address] [facility] 2022-12-23 2022-12-23 Refill Jesus [facility] 1.2.840.114 [id number] Univers 00:00:00 00:00:00 Sterling HEALTH 350.1.13.10 it y of [place] 4.2.7.2.686 Branden as VIKTOR?BLEA [id number] [address] [facility] 2022-12-23 2022-12-23 [facility] 1.2.840.114 [id number] Univers 00:00:00 00:00:00 Wontyful A HEALTH 350.1.13.10 ity of [place] 4.2.7.2.686 Branden as VIKTOR?BLEA [id number] Mo clemente LIZ [address] [place] [address] [facility] 2022-12-17 2022-12-17 Telephone [facility] 1.2.284.382 [id number] Univers 00:00:00 00:00:00 Marcial HEALTH 350.1.13.10 it y of [place] 4.2.7.2.686 Branden as VIKTOR?BLEA [id number] Mo clemente LIZ [address] [place] [address] [facility] 2022-12-11 2022-12-11 [facility]phone [facility] [id number] Univers 00:00:00 00:00:00 Marcial HEALTH 350.1.13.10 it y of [place] 4.2.7.2.686 Branden as VIKTOR?BLEA [id number] Mo clemente LIZ [address] [place] [address] [facility] 2022-12-10 2022-12-10 Outpatient [facility] [id number] [place] 10:30:00 14:37:24 Health 2022-12-10 2022-12-10 Office Elmer [facility] 1.2.840.114 [id number] [place] 10:15:00 10:44:15 Visit [facility] 350.1.13.58 [facility] 9.2.7.2.686 [address] [id number] 2022-11-30 2022-11-30 Telephone [facility] [id number] [id number] Univers 00:00:00 00:00:00 Marcial HEALTH 350.1.13.10 it y of [place] 4.2.7.2.686 Branden as VIKTOR?BLEA [id number] Mo clemente LIZ [address] [place] [address] [facility] 2022-11-23 2022-11-23 [facility] 1.2.840.114 [id number] Univers 00:00:00 00:00:00 Marcial HEALTH 350.1.13.10 it y of [place] 4.2.7.2.686 Branden as VIKTOR?BLEA [id number] [address] MEDICAL [facility] 2022-11-23 2022-11-23 Reflanre Manuel [facility] 1.2.840.114 [id number] Univers 00:00:00 00:00:00 Wontyful A HEALTH 350.1.13.10 ity of [place] 4.2.7.2.686 Branden as VIKTOR?BLEA [id number] [address] [facility] 2022-11-19 2022-11-19 Outpatient [facility] [id number] [place] 09:45:00 10:50:10 Health 2022-11-19 2022-11-19 Office Elmer [facility] 1.2.840.114 [id number] [place] 09:45:00 10:46:54 Visit Barry MELGAR 350.1.13.58 [facility] 9.2.7.2.686 [address] [id number] 5 2022-11-19 2022-11-19 Outpatient [facility] [id number] [place] 09:50:00 09:50:00 Health 2022-11-17 2022-11-17 Outpatient R [facility] [id number] Univers 14:30:00 14:30:00 , DARBY it y [facility] 2022-11-17 2022-11-17 Outpatient R [facility] [id number] Univers 10:00:00 10:00:00 , DARBY it y of [facility] 2022-11-13 2022-11-13 Patient Rinku, [facility] 1.2.840.114 [id number] Univers 00:00:00 00:00:00 Secure Msg Marcial HEALTH 350.1.13.10 ity of [place] 4.2.7.2.686 Branden as VIKTOR?BLEA [id number] [address] [facility] 2022-11-12 2022-11-12 [employer] [facility], Ang - Mike [facility] 1.2.840.1 [id number] Univers 12:00:00 12:27:36 Visit Marcial Dobbs HEALTH 350.1.13.10 ity of [place] 4.2.7.2.686 Branedn as VIKTOR?BLEA [id number] [facility] [address] MEDICAL OFFICE [facility] 2022-11-12 2022-11-12 Outpatient R [facility] [id number] Univers 11:15:00 12:27:27 , DARBY it y of [facility] 2022-11-12 2022-11-12 Office [facility] 1.2.840.[id number] [facility] 11:15:00 12:27:27 Visit , Darby HEALTH 350.1.13.10 ity of [place] 4.2.7.2.686 Branden as VIKTOR?BLEA [id number] [address] [facility] 2022-11-12 2022-11-12 Orders Doctor PINKY 1.2.840.114 [id number] Univers 00:00:00 00:00:00 Only Unassigned, HUDSON 350.1.13.10 ity of [place] [facility] 4.2.7.2.686 Branden as [id number] [address] 2022-11-11 2022-11-11 Telephone Peyman [facility] 1.2.103.187 2057 [id number] Univers 00:00:00 00:00:00 Marcial HEALTH 350.1.13.10 it y of [place] 4.2.7.2.686 Branden as VIKTOR?BLEA [id number] [address] [facility] 2022-11-10 2022-11-10 [facility]phone [facility] 1.2.065.474 [id number] Univers 00:00:00 00:00:00 Marcial HEALTH 350.1.13.10 it y [facility] 4.2.7.2.686 Branden as VIKTOR?BLEA [id number] [address] [facility] 2022-10-30 2022-10-30 Telephone Rinku [facility] 1.2.131.134 [id number] 7320 Univers 00:00:00 00:00:00 Marcial HEALTH 350.1.13.10 it y of [facility] 4.2.7.2.686 Branden as VIKTOR?BLEA [id number] Mo clemente LIZ [address] [place] [address] [facility] 2022-10-29 2022-10-29 Office Elmer [facility] 1.2.840.114 [id number] [place] 10:45:00 11:32:11 Visit Barry [facility] 350.1.13.58 [facility] 9.2.7.2.686 PLAZA 4 [id number] 5 2022-10-27 2022-10-27 Telephone [facility] 1.2.450.126 [id number] Univers 00:00:00 00:00:00 Marcial CINTRON 350.1.13.10 it y of [facility] 4.2.7.2.686 Branden as VIKTOR?BLEA [id number] Mo clemente LIZ [address] [place] [address] [facility] 2022-10-22 2022-10-22 Outpatient [facility] [id number] UT 08:30:00 08:30:00 [facility] 2022-10-20 2022-10-20 [facility]phone [facility] 1.2.466.460 [id number] Univers 00:00:00 00:00:00 Marcial [facility] 350.1.13.10 it y of [facility] 4.2.7.2.686 Branden as VIKTOR?BLEA [phone] Mo clemente LIZ [address] [place] [address] [facility] 2022-10-09 2022-10-19 Inpatient FÁTIMA BENITEZ MED [id number] 10:01:00 14:13:[address] [facility] 2022-10-09 2022-10-19 Outpatient FÁTIMA Benitez MHSE [id number] 10:01:00 14:13:00 Brijesh Fung 2022-10-01 2022-10-09 Inpatient E TOM MCNEILLSE MED [id number] MH 21:13:00 10:00:[address] [facility] 2022-10-01 2022-10-09 Outpatient FÁTIMA Mcneill MHSE [id number] 16:44:39 10:00:00 Dion Tariq 2022-10-02 2022-10-02 [facility] [id number] [place] 07:30:00 07:30:00 [facility] 2022-10-01 2022-10-01 Outpatient Yves SE [id number] 16:44:39 16:44:39 Alban Marciano Padilla 2022-10-01 2022-10-01 [facility] [id number] UT 14:45:00 14:45:00 [facility] 2022-09-28 2022-09-28 [place] [id number] 10:44:03 16:14:00 Marcos Grossman 03 2022-09-28 2022-09-28 Emergency E HALEYVANDA SE MHSE [id number] 10:44:00 16:14:00 MARCOS morales [facility] 2022-09-28 2022-09-28 Patient Rinku [facility] 1.2.840.[id number] [facility] 00:00:00 00:00:00 Secure Ms Marcial HEALTH 350.1.13.10 ity of [place] 4.2.7.2.686 Branden as VIKTOR?BLEA [id number] [address] [facility] 2022-09-24 2022-09-24 Office Elmer [facility] 1.2.840.114 [id number] [place] 13:15:00 13:44:29 Visit [facility] 350.1.13.58 [facility] 9.2.7.2.686 PLAZA 4 [id number] 5 2022-09-24 2022-09-24 [facility] [id number] UT 09:45:00 09:45:00 [facility] 2022-09-24 2022-09-24 Refill Mar [facility] 1.2.840.[id number] [facility] 00:00:00 00:00:00 Wondiful A HEALTH 350.1.13.10 ity of [place] 4.2.7.2.686 Branden as VIKTOR?BLEA [id number] [address] [facility] 2022-09-22 2022-09-22 Outpatient Glass, MHSE MHSE [id number] 10:06:08 11:45:00 Scotty Petit 2022-09-22 2022-09-22 Emergency E QUAN, MHSE MHSE [id number] MH 10:06:00 11:45:[address] [facility] 2022-09-18 2022-09-18 Outpatient R RINKU [facility] [id number] Univers 10:30:00 10:54:17 MARCIAL clintonleigh [facility] 2022-09-18 2022-09-18 Office Rinku [facility] 1.2.840.114 [id number] Univers 10:30:00 10:54:17 Visit Marcial [facility] 350.1.13.[address] [facility] 4.2.7.2.686 Branden as VIKTOR?BLEA [id number] [address] [facility] 2022-09-17 2022-09-17 Office Elmer [facility] 1.2.840.114 [id number] UT 10:45:00 12:09:33 Visit Barry HARMONY 350.1.13.58 [facility] 9.2.7.2.686 PLAZA 4 [id number] 5 2022-09-07 2022-09-09 Outpatient Elmer, MHSE MHSE [id number] 05:32:00 12:44:00 Barry Fraga 2022-09-07 2022-09-09 Inpatient ELMER, MHSE MHSE [id number] MH 05:32:00 12:44:[address] [facility] 2022-09-07 2022-09-07 Outpatient Elmer, MHSE MHSE [id number] 10:30:00 10:30:00 Barry Fraga 2022-09-07 2022-09-07 Outpatient ELMER [facility] [id number] UT 07:30:00 07:30:00 BARRY Health 2022-09-02 2022-09-02 Outpatient [facility] [id number] UT 00:00:00 11:59:21 Health 2022-09-02 2022-09-02 Outpatient ELMER [facility] [id number] UT 10:45:00 11:59:05 [facility] 2022-08-27 2022-08-27 Outpatient ELMER [facility] [id number] UT 10:45:00 10:45:00 [facility] 2022-08-21 2022-08-21 Outpatient [facility] [id number] UT 00:00:00 11:20:58 Health 2022-08-21 2022-08-21 Outpatient [facility] [id number] UT 00:05:00 11:20:47 Health 2022-08-21 2022-08-21 Outpatient ELMER [facility] [id number] UT 10:15:00 11:20:01 [facility] 2022-08-06 2022-08-06 Office Elmer [facility] 1.2.840.114 [id number] UT 10:15:00 11:25:11 Visit Barry MELGAR 350.1.13.58 [facility] MEDICAL 9.2.7.2.686 PLAZA 1 [id number] 5 2022-08-06 2022-08-06 Outpatient ELMER [facility] [id number] UT 10:15:00 10:15:00 [facility] 2022-07-30 2022-07-30 Office Elmer [facility] 1.2.840.114 [id number] UT 10:15:00 10:41:42 Visit Barry MELGAR 350.1.13.58 [facility] MEDICAL 9.2.7.2.686 PLAZA 0 [id number] 5 2022-07-23 2022-07-23 Office Elmer [facility] 1.2.840.114 [id number] UT 14:45:00 15:50:46 Visit Barrycitlaly [facility] 350.1.13.58 H [facility] MEDICAL 9.2.7.2.686 PLAZA 4 [id number] 5 2022-07-14 2022-07-17 Inpatient [facility] [id number] [facility] 10:32:00 16:00:00 kurtis Mera 00 l [facility] 2022-07-14 2022-07-17 Outpatient Elmer [facility] [id number] 05:32:00 11:00:00 Barry Fraga 00 2022-07-14 2022-07-17 Outpatient Elmer MHSE MHSE [id number] 05:32:00 11:00:00 Barry Fraga 00 2022-07-14 2022-07-17 Inpatient ELMER, MHSE MHSE [id number] MH 05:32:00 11:00:00 BARRY [facility] 2022-07-14 2022-07-14 [facility] [id number] UT 07:30:00 07:30:00 BARRY Health 2022-07-10 2022-07-10 Office Elmer [facility] 1.2.840.114 [id number] UT 10:45:00 11:24:21 Visit Barry MELGAR 350.1.13.58 [facility] 9.2.7.2.686 PLAZA 5 [id number] 5 2022-06-26 2022-06-26 Outpatient Kurtis GALINDO [facility] [id number] [facility] 09:00:00 09:00:00 RADHA [facility]roll [facility] 2022-06-24 2022-06-24 Office Elmer [facility] 1.2.840.114 [id number] [place] 08:30:00 09:19:49 Visit Barry MELGAR 350.1.13.58 [facility] 9.2.7.2.686 PLAZA 5 [id number] 5 2022-06-19 2022-06-19 Patient Rinku [facility] 1.2.840.114 [id number] Univers 00:00:00 00:00:00 Secure Msg [employer] 350.1.13.10 ity of [place] 4.2.7.2.686 Branden as VIKTOR?BLEA [id number] [address] OFFICE BUILDING 2022-06-19 2022-06-19 Telephone Rinku [facility] 1.2.671.[id number] [facility] 00:00:00 00:00:00 Marcial HEALTH 350.1.13.10 it y of [place] 4.2.7.2.686 Branden as VIKTOR?BLEA [id number] [address] [facility] 2022-06-17 2022-06-17 [facility]phone [facility] 1.2.272.802 [id number] Univers 00:00:00 00:00:00 Marcial ALMAZAN 350.1.13.10 i ty [place].7.2.[place] [id number] [address] 2022-06-17 2022-06-17 Telephone [facility] 1.2.377.460 [id number] 0550 Univers 00:00:00 00:00:00 Marcial HEALTH 350.1.13.10 it y [facility] 4.2.7.2.686 Branden as VIKTOR?BLEA [id number] [address] 2022-06-16 2022-06-16 [employer], Ang - Db [facility] 1.2.840.1 14 [id number] Univers 16:30:00 16:30:26 Visit Marcial Dobbs [facility] 350.1.13.10 ity of [facility] 4.2.7.2.686 Branden as VIKTOR?BLEA [id number] [address] 2022-06-16 2022-06-16 Outpatient [facility] [id number] Univers 16:30:00 16:30:00 MARCIAL itleigh of [facility] 2022-06-16 2022-06-16 Telephone [facility] 1.2.864.759 [id number] Univers 00:00:00 00:00:00 Marcial HEALTH 350.1.13.10 it y of [facility] 4.2.7.2.686 Branden as VIKTOR?BLEA [id number] [address] 2022-06-12 2022-06-12 [employer], Ang - Db [facility] 1.2.840.1 14 [id number] Univers 16:15:00 16:17:26 Visit Marcial Dobbs 350.1.13.10 ity of [facility] 4.2.7.2.686 Branden as VIKTOR?BLEA [id number] [address] [facility] 2022-06-12 2022-06-12 Outpatient R RINKU [facility] [id number] Univers 16:15:00 16:15:00 MARCIAL carroll [facility] 2022-06-12 2022-06-12 Outpatient R RINKU [facility] [id number] Univers 15:30:00 15:55:09 MARCIAL carroll [facility] 2022-06-12 2022-06-12 Office [facility] 1.2.840.114 [id number] Univers 15:30:00 15:55:09 Visit Marcial CINTRON 350.1.13.10 it y of [place] 4.2.7.2.686 Branden as VIKTOR?BLEA [id number] Mo clemente [address] [facility] 2022-06-12 2022-06-12 Outpatient R RINKU [facility] [id number] Univers 15:30:00 15:55:09 MARCIAL carroll [facility] 2022-06-11 2022-06-11 Outpatient [facility] [id number] [place] 00:00:00 16:22:00 Health 2022-06-11 2022-06-11 Office Elmer [facility]O [facility] 1.2.840.114 [id number] OR 09:30:00 10:49:04 Visit Barry MELGAR 350.1.13.58 [facility] 9.2.7.2.686 PLAZA 9 [id number] 5 2022-06-09 2022-06-09 Telephone [facility] 1.2.117.865 [id number] Univers 00:00:00 00:00:00 Marcial Vizibility 350.1.13.10 it y of [place] 4.2.7.2.686 Branden as VIKTOR?BLEA [id number] Mo clemente LANDON[address] [facility] 2022-06-08 2022-06-08 Outpatient R CAYDEN MUIR [facility] [id number] Univers 08:30:00 08:30:00 leigh [facility] 2022-06-08 2022-06-08 Outpatient FOG_A_Provi AOSM AOSM [id number] [id number] Grace 00:00:00 00:00:00 alyx [id number] Orthop e dic Sports Medicin e 2022-06-08 2022-06-08 Telephone Rinku [facility] 1.2.822.579 [id number] Univers 00:00:00 00:00:00 Marcial [facility] 350.1.13.10 it y of [place] 4.2.7.2.686 Branden as VIKTOR?BLEA [id number] Mo dical [address] MEDICAL OFFICE BUILDING 2022-06-06 2022-06-06 Emergency Berry, 1.2.840.1 [id number] [id number] Methodi 18:21:00 22:14:[address] Yaya 3.430.2.7 Hospit a .3.299973 l .8 2022-06-06 2022-06-06 Emergency Berry, 1.2.840.1 [id number] 2100 [id number] Methodi 18:21:00 22:14:[address] Yaya 3.430.2.7 Hospit a .3.816091 l .8 2022-06-06 2022-06-06 Travel 1.2.840.1 1.2.204.645 2243 [id number] Methodi 00:00:00 00:00:[address] 3.430.2.7 0.2.7.3.698 Ho spita .3.212003 084.8 l .8 2022-06-06 2022-06-06 Travel 1.2.840.1 1.2.169.710 2582 307927 Methodi 00:00:00 00:00:[address] 3.430.2.7 0.2.7.3.698 Ho spita .3.109912 084.8 l .8 2022-06-04 2022-06-04 Outpatient Kurtis XIONG [facility] SOR [id number] Univers 07:10:00 07:10:00 RHETT carroll of [facility] 2022-05-27 2022-05-27 Outpatient R [facility] [id number] Univers 08:50:00 10:25:10 RHETT carroll [facility] 2022-05-27 2022-05-27 Office [facility] 1.2.840.114 [id number] Univers 08:50:00 10:25:10 Visit Rhett Poncho SPECIALTY 350.1.13.10 ity of [place].2.[place] [id number] Mo clemente Olmos [facility] 2022-05-27 2022-05-27 [facility] [id number] Univers 08:50:00 10:25:10 RHETT carroll [facility] 2022-05-27 2022-05-27 Office [facility] 1.2.840.114 [id number] Univers 08:50:00 10:25:10 Visit Rhett Isaac SPECIALTY 350.1.13.10 ity of [place].2.[place] AT [id number] Mo clemente Olmos [facility] 2022-05-27 2022-05-27 Outpatient R [facility] [id number] Univers 08:50:00 08:50:00 RHETT carroll [facility] 2022-05-27 2022-05-27 Telephone [facility] 1.2.955.294 [id number] Univers 00:00:00 00:00:00 Marcial HEALTH 350.1.13.10 it y of [place] 4.2.7.2.686 Branden as VIKTOR?BLEA [id number] [address] [facility] 2022-05-27 2022-05-27 [facility]phone [facility] 1.2.261.102 [id number] Univers 00:00:00 00:00:00 Marcial HEALTH 350.1.13.10 it y of [place] 4.2.7.2.686 Branden as VIKTOR?BLEA [id number] [address] [facility] 2022-05-27 2022-05-27 Telephone [facility] 1.2.761.675 [id number] 7612 Univers 00:00:00 00:00:00 Marcial HEALTH 350.1.13.10 it y of [place] 4.2.7.2.686 Branden as VIKTOR?BLEA [id number] Mo clemente LIZ [address] [place] MEDICAL [facility] 2022-05-27 2022-05-27 Telephone Rinku [facility] 1.2.773.585 [id number] 4725 Univers 00:00:00 00:00:00 Marcial HEALTH 350.1.13.10 it y of [place] 4.2.7.2.686 Branden as VIKTOR?BLEA [id number] Mo clemente LANDON[address] MEDICAL [facility] 2022-05-26 2022-05-26 [employer], Ang - Db [facility] 1.2.840.1 14 [id number] Univers 07:30:00 07:45:00 Visit Marcial Dobbs 350.1.13.10 ity of [place] 4.2.7.2.686 Branden as VIKTOR?BLEA [id number] Mo clemente LIZ 353 [facility] 2022-05-26 2022-05-26 Outpatient R RINKU [facility] [id number] Univers 07:30:00 07:30:00 MARCIAL carroll [facility] 2022-05-25 2022-05-25 Outpatient R RINKU [facility] [id number] Univers 14:00:00 14:55:12 MARCIAL carroll [facility] 2022-05-25 2022-05-25 Office [facility] 1.2.840.114 [id number] Univers 14:00:00 14:55:12 Visit Marcial CINTRON 350.1.13.10 it y of [place] 4.2.7.2.686 Branden as VIKTOR?BLEA [phone] Mo carriemd DIPESH[address] [facility] 2022-05-25 2022-05-25 Outpatient R RINKU [facility] [id number] Univers 14:00:00 14:55:12 MARCIAL carroll [facility] 2022-05-25 2022-05-25 Outpatient R RINKU [facility] [id number] Univers 14:00:00 14:00:00 MARCIALELIZA carroll [facility] 2022-05-23 2022-05-23 Outpatient R ARIS [facility] [id number] Univers 11:20:00 11:47:56 YAMINI ity of [facility] 2022-05-23 2022-05-23 [facility]gent [facility] 1.2.840.114 [id number] Univers 11:20:00 11:47:56 Care Yamini HEALTH 350.1.13.10 it y of [place] 4.2.7.2.686 Branden as VIKTOR?BLEA [id number] [facility] [address] MEDICAL OFFICE BUILDING 2022-05-20 2022-05-20 [facility] 1.2.638.591 [id number] 1550 Univers 17:49:00 23:59:00 Encounter [facility] HEALTH 350.1.13.10 ity of [place] 4.2.7.2.686 Branden as IVKTOR?BLEA [id number] [facility] [address] [place] [address] [facility] 2022-05-20 2022-05-20 Outpatient [facility] [id number] Univers 17:31:41 17:48:00 ARNOLDO ity o f [facility] 2022-05-20 2022-05-20 [facility] 1.2.507.596 [id number] [id number] Univers 17:31:41 17:48:00 Encounter [facility] HEALTH 350.1.13.10 ity of [place] 4.2.7.2.686 Branden as VIKTOR?BLEA [id number] [address] [facility] 2022-05-20 2022-05-20 [facility] 1.2.840. 114 [id number] Univers 17:00:00 17:37:58 Care Eliecer Nicol HEALTH 350.1.13.10 ity of [place] 4.2.7.2.686 Branden as VIKTOR?BLEA [id number] [facility] [address] MEDICAL [facility] 2022-05-20 2022-05-20 [facility] 1.2.840.114 [id number] Univers 00:00:00 00:00:00 Arnoldo HEALTH 350.1.13.10 i ty of [facility] 4.2.7.2.686 Branden as VIKTOR?BLEA [id number] Mo clemente LIZ [address] MEDICAL OFFICE BUILDING 2022-05-20 2022-05-20 Telephone Rinku [facility] 1.2.792.904 [id number] [id number] Univers 00:00:00 00:00:00 Marcial HEALTH 350.1.13.10 it y of [facility] 4.2.7.2.686 Branden as VIKTOR?BLEA [id number] Mo clemente LIZ [address] MEDICAL [facility] 2022-05-18 2022-05-18 Outpatient R RINKU [facility] [id number] Univers 16:00:00 16:43:58 MARCIAL itleigh of [facility] 2022-05-18 2022-05-18 Office Peymanamy [facility] 1.2.840.114 [id number] Univers 16:00:00 16:43:58 Visit [facility] 350.1.13.10 it y of [place] 4.2.7.2.686 Branden as VIKTOR?BLEA [id number] Mo clemente LIZ 044 [facility] 2022-04-27 2022-04-27 Outpatient R [facility] [id number] Univers 13:45:00 15:24:22 RADHA itleigh [facility] 2022-04-27 2022-04-27 Ancillary Paulina Velasquez [facility] 1.2.84 0.114 [id number] Univers 13:45:00 15:24:22 Visit Radha Galindo 350.1.13.10 ity of [facility] 4.2.7.2.[place] [phone] Mo dical NAL [address] [facility] 2022-04-15 2022-04-15 Ancillary Nick Vasquez [facility] 1.2.840. 114 [id number] Univers 14:30:00 15:15:00 Visit Radha Galindo 350.1.13.10 ity of [facility] 4.2.7.2.[place] [id number] Mo dical NAL [address] [facility] 2022-04-02 2022-04-02 Outpatient [facility] [id number] [facility] 08:38:32 12:20:33 SHERICE cali of Medicin e 2022-03-31 2022-03-31 Ancillary Paulina Velasquez [facility] 1.2.84 0.114 [id number] Univers 10:15:00 11:00:00 Visit Radha Galindo 350.1.13.10 ity of [place] 4.2.7.2.[place] [phone] Mo dical NAL [address] [facility] 2022-03-26 2022-03-26 Ancillary Kari Peres [facility] 1.2. 840.114 [id number] Univers 14:30:00 15:15:00 Visit Radha Galindo 350.1.13.10 ity of [place] 4.2.[place].2.[place] [id number] Mo dical NAL [address] [facility] 2022-03-24 2022-03-24 Ancillary Paulina Velasquez [facility] 1.2.84 0.114 [id number] Univers 14:30:00 15:15:00 Visit Radha Galindo 350.1.13.10 ity of [place] 4.2.7.2.686 [place] [id number] Mo dical NAL [address] [facility] 2022-03-16 2022-03-16 Outpatient R JOSIE [facility] [id number] Univers 10:15:00 11:11:20 RADHA carroll of [facility] 2022-03-16 2022-03-16 Ancillary Paulina Velasquez [facility] 1.2.[id number] [facility] 10:15:00 11:11:20 Visit Radha Galindo 350.1.13.10 ity of [place] 4.2.7.2.[place] [id number] Mo dical NAL [address] [facility] 2022-02-23 2022-02-23 Office Jesus [facility] 1.2.840.114 [id number] Univers 09:00:00 09:30:00 Visit Sterling HEALTH 350.1.13.10 it y of [place] 4.2.7.2.686 Branden as VIKTOR?BLEA [id number] Mo clemente [address] [facility] 2022-02-23 2022-02-23 Outpatient Kurtis LEE [facility] [id number] Univers 09:00:00 09:00:00 STERLING carroll [facility] 2022-02-20 2022-02-21 Emergency Jayson [facility] [id number] 19:32:00 01:26:00 [facility] 2022-02-20 2022-02-21 Emergency ER [facility] Emergency [id number] SLE 19:32:00 01:26:00 BRIAN 2022-02-20 2022-02-20 Outpatient ALEJANDRA ANTONIO [facility] [id number] [facility] 14:47:50 14:47:50 SHERICE [facility] 2022-02-20 2022-02-20 [facility]840.114 [id number] Univers 09:30:00 10:00:00 Visit Marcial [facility] 350.1.13.10 it y of [place] 4.2.7.2.686 Branden as VIKTOR?BLEA [id number] Mo clemente [address] [facility] 2022-02-20 2022-02-20 Outpatient R RINKU [facility] [id number] Univers 09:30:00 09:30:00 MARCIAL carroll [facility] 2022-02-20 2022-02-20 Travel [facility] [id number] [facility] 00:[facility]:00 00:00:00 [facility] 2022-02-20 2022-02-20 Telephone Rinku [facility] [id number] Univers 00:00:00 00:00:00 Marcial HEALTH 350.1.13.10 it y of [place] 4.2.7.2.686 Branden as VIKTOR?BLEA [phone] Mo carrie[address] [facility] 2022-02-19 2022-02-19 Telephone Kamlesh [facility] PINKY 1..840.114 [id number] Univers 00:00:00 00:00:00 Health [place] 350.1.13.10 it y of [facility]OSPITAL 4.2.7.2.686 [place] [id number] [place] [id number] [place] 2022-02-19 2022-02-19 [facility] 1.2.139.035 [id number] Univers 00:00:00 00:00:00 Marcial [facility] 350.1.13.10 [facility] 4.2.7.2.686 Branden as VIKTOR?BLEA [id number] [address] MEDICAL [facility] 2022-02-18 2022-02-18 Nurse PINKY [address] [id number] [id number] Univers 00:00:00 00:00:00 Triage Ludwin HU[place]ON 350.1.13.10 it y of HOSPITAL 4.2.7.2.686 Branden as [id number] [address] 2022-02-18 2022-02-18 Nurse PINKY Main 1.2.133.437 [id number] Univers 00:00:00 00:00:00 Triage Ludwin HUDSON 350.1.13.10 it y of HOSPITAL 4.2.7.2.686 Branden as [phone] [address] 2022-02-18 2022-02-18 Nurse IPNKY Núñez 1.2.840.114 [id number] Univers 00:00:00 00:00:00 Triage Benjamin REIDY 350.1.13.10 ity of HOSPITAL 4.2.7.2.686 Branden as [id number] [address] 2022-02-17 2022-02-17 Outpatient ALEJANDRA WOLFE [facility] [id number] [facility] 13:09:42 16:19:33 RANULFO [facility] 2022-02-17 2022-02-17 [facility] 1.2.626.175 [id number] Univers 00:00:00 00:00:00 Marcial HEALTH 350.1.13.10 it y of [place] 4.2.7.2.686 Branden as VIKTOR?BLEA [id number] [address] [facility] 2022-02-16 2022-02-16 Outpatient Kurtis GALINDO [facility] [id number] Univers 09:30:00 09:30:00 RADHA [facility] 2022-02-16 2022-02-16 [facility] [id number] Univers 09:30:00 09:30:[address] [facility] 2022-02-16 2022-02-16 Outpatient Kurtis GALINDO [facility] [id number] Univers 09:30:00 09:30:[address] [facility] 2022-02-09 2022-02-09 Outpatient [facility] [id number] [place] [facility] 08:27:50 12:25:31 RANULFO [facility] 2022-02-06 2022-02-06 [facility]patient [facility] [id number] Univers 00:00:00 00:00:00 IDANIA [facility] 2022-02-06 2022-02-06 [facility]patient [facility] [id number] Univers 00:00:00 00:00:00 [facility] 2022-02-05 2022-02-05 [facility]phone [facility] 1.2.680.494 [id number] Univers 00:00:00 00:00:00 Marcial HEALTH 350.1.13.10 it y of [place] 4.2.7.2.686 Branden as VIKTOR?BLEA [phone] Mo clemente [address] [facility] 2022-02-04 2022-02-04 Telephone [facility] 1.2.840.114 [id number] Univers 00:00:00 00:00:00 Idania C HEALTH 350.1.13.10 i ty of [place] [id number] [address] OFFICE BUILDING 2022-02-03 2022-02-03 Outpatient [facility] [id number] Univers 00:00:00 00:00:00 IDANIA [facility] 2022-02-03 2022-02-03 Outpatient R [facility] [id number] Univers 00:00:00 00:00:00 IDANIA carroll [facility] 2022-01-30 2022-01-30 Telephone [facility] 1.2.840.114 [id number] Univers 00:00:00 00:00:00 Idania Marroquin HEALTH 350.1.13.10 i [place] of [place] [id number] [address] OFFICE BUILDING 2022-01-28 2022-01-28 Outpatient [facility] [id number] Univers 11:30:00 12:02:51 IDANIA carroll [facility] 2022-01-28 2022-01-28 Office [facility] 1.2.263.873 [id number] Univers 11:30:00 12:02:51 Visit Idania Marroquin HEALTH 350.1.13.10 i [place] of [place] [phone] [address] [facility] 2022-01-19 2022-01-19 Telephone Rinku [facility] 1.2.792.011 [id number] Univers 00:00:00 00:00:00 Marcial HEALTH 350.1.13.10 it y of [place] 4.2.7.2.686 Branden as VIKTOR?BLEA [id number] [address] [facility] 2022-01-13 2022-01-13 Outpatient R RINKU [facility] [id number] Univers 13:30:00 14:14:35 MARCIAL carroll [facility] 2022-01-13 2022-01-13 Office [facility] 1.2.840.114 [id number] Univers 13:30:00 14:14:35 Visit Marcial HEALTH 350.1.13.10 it y of [place] 4.2.7.2.686 Branden as VIKTOR?BLEA [phone] [address] [facility] 2021-12-29 2021-12-29 Emergency X YANET [facility] ERT [id number] Univers 14:55:00 16:47:00 FAUSTINOLeigh carroll [facility] 2021-12-29 2021-12-29 Emergency [place], [facility] 1.2.840.114 [id number] Univers 14:55:00 16:47:00 Faustino Ella NORAH 350.1.13.10 i ty of [facility] 4.2.7.2.686 [place] [id number] [facility] [address] [place] 2021-12-29 2021-12-29 Telephone [facility] 1.2.840.114 [id number] Univers 00:00:00 00:00:00 Wondiful A HEALTH 350.1.13.10 [facility] 4.2.7.2.686 Branden as VIKTOR?BLEA [phone] Mo clemente LIZ [address] [place] [address] [facility]ICAL [facility] 2021-12-22 2021-12-22 Orders Doctor VANCE 1.2.840.114 [id number] Univers 00:00:00 00:00:00 Only Unassigned, HUDSON 350.1.13.10 ity of [place] [facility] 4.2.7.2.686 Branden as [phone] [address] 2021-12-10 2021-12-10 Orders Doctor PINKY 1.2.840.114 [id number] Univers 00:00:00 00:00:00 Only Unassigned, HUDSON 350.1.13.10 ity of [place] [facility] 4.2.7.2.686 Branden as [phone] [address] 2021-12-01 2021-12-01 Telephone [facility] 1.2.840.114 [id number] Univers 00:00:00 00:00:00 Parminder ALMAZAN 350.1.13.10 ity of [facility] 4.2.7.2.686 [place] [facility] [phone] Mo clemente ESTRADA 085 [facility] 2021-11-19 2021-11-19 Outpatient R PARMINDER AGRAWAL [facility] [id number] Univers 14:40:00 14:40:00 PARMINDER AGRAWAL ity of [facility] 2021-11-13 2021-11-13 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, Adc Lab [facility] 1.2.840.114 [id number] Univers 11:30:00 11:30:00 Visit John Manzo [place] 350.1.1 3.10 ity of [place] 4.2.7.2.686 [place] [phone] Mo dicpaul NAL 353 [facility] 2021-11-13 2021-11-13 Outpatient R HELEN [facility] [id number] Univers 11:30:00 10:14:46 JOHN Cali ity o f [facility] 2021-11-12 2021-11-12 [facility] 1.2.389.179 [id number] Univers 14:40:00 15:00:00 Visit Parminder ALMAZAN 350.1.13.10 ity of [facility] 4.2.7.2.686 [place] [phone] Mo clemente [facility] 085 [facility] 2021-11-12 2021-11-12 Outpatient R ASHLEY AGRAWALWYLinda [facility] [id number] Univers 14:40:00 14:40:00 [facility] 2021-11-06 2021-11-06 [facility]edar [facility] 1.2.840.114 [id number] Univers 00:00:00 00:00:00 Management Wondiful A HEALTH 350.1.13.10 ity of [facility] 4.2.7.2.686 Branden as VIKTOR?BLEA [phone] Mo clemente EY 044 [facility] 2021-11-05 2021-11-05 Outpatient R MAR [facility] [id number] Univers 17:03:51 23:59:00 WONDIFUL ity o f [facility] 2021-11-05 2021-11-05 Nnamdi [facility] 1.2.301.962 [id number] Univers 17:03:51 23:59:00 Encounter Wonreid ALMAZAN 350.1.13.10 ity of [facility] 4.2.7.2.686 [place] CAMPUS [id number] [facility] [address] [place] 2021-11-05 2021-11-05 Case Mar [facility] 1.2.840.114 [id number] Univers 00:00:00 00:00:00 Management Wondiful A HEALTH 350.1.13.10 ity of [place] 4.2.7.2.686 Branden as VIKTOR?BLEA [phone] [address] [facility]ICAL [facility] 2021-11-04 2021-11-04 Tower Truck Driver Anthony Borja Sleep Lab [facility] 1.2 .840.114 [id number] Univers 10:00:00 10:15:00 Visit Parminder Agrawal [place] 350.1.13. 10 ity of [place] 4.2.7.2.686 [place] [facility] [phone] [address] 2021-11-04 2021-11-04 Outpatient R PARMINDER AGRAWAL [facility] [id number] Univers 10:00:00 10:00:00 PARMINDER AGRAWAL [facility] 2021-11-04 2021-11-04 Outpatient R PARMINDER AGRAWAL [facility] [id number] Univers 10:00:00 10:00:00 PARMINDER AGRAWAL itleigh [facility] 2021-10-29 2021-10-29 Case Mar [facility] 1.2.840.114 [id number] Univers 00:00:00 00:00:00 Management Wondiful A HEALTH 350.1.13.10 ity of [facility] 4.2.7.2.686 Branden as VIKTOR?BLEA [phone] [address] [facility] 2021-10-23 2021-10-23 Telephone Mar [facility] 1.2.840.114 [id number] Univers 00:00:00 00:00:00 Wondiful A HEALTH 350.1.13.10 ity of [place] 4.2.7.2.686 Branden as VIKTOR?BLEA [phone] [address] 2021-10-23 2021-10-23 Patient Doctor [facility] 1.2.840.114 [id number] Univers 00:00:00 00:00:00 Secure Msg Unassigned, HEALTH 350.1.13.10 ity of [place] [facility] 4.2.7.2.686 Branden as VIKTOR?BLEA [phone] Mo clemente LIZ [address] [place] [facility]ICAL [facility] 2021-10-22 2021-10-22 Telephone Mar [facility] 1.2.840.114 [id number] Univers 00:00:00 00:00:00 Wondiful A HEALTH 350.1.13.10 ity of [place] 4.2.7.2.686 Branden as VIKTOR?BLEA [phone] Mo clemente LIZ [address] [place] [facility]ICAL [facility] 2021-10-21 2021-10-21 Tower Truck Driver Lab, Ang - Db [facility] 1.2.840.1 [id number] Univers 12:45:00 13:00:00 Visit Louis Manuel A HEALTH 350.1.13.1 0 ity of [place] 4.2.7.2.686 Branden as VIKTOR?BLEA [id number] Mo clemente LIZ [address] [place] [facility]ICAL [facility] 2021-10-21 2021-10-21 Outpatient R MAR [facility] [id number] Univers 11:30:00 12:41:54 WONDIFUL ity o f [facility] 2021-10-21 2021-10-21 Office [facility] 1.2.840.114 [id number] Univers 11:30:00 12:41:54 Visit Wondiful A HEALTH 350.1.13.10 ity of [place] 4.2.7.2.686 Branden as VIKTOR?BLEA [phone] Mo clemente LIZ [address] [place] [address] [facility] 2021-10-21 2021-10-21 Outpatient R MAR [facility] [id number] Univers 11:30:00 12:41:54 WONDIFUL ity o f [facility] 2021-10-21 2021-10-21 Orders Doctor VANCE 1.2.840.114 [id number] Univers 00:00:00 00:00:00 Only Unassigned, HUDSON 350.1.13.10 ity of [place] [facility] 4.2.7.2.686 Branden as [phone] [address] 2021-10-08 2021-10-08 Outpatient R MAR [facility] [id number] Univers 09:00:00 09:00:00 WONDIFUL ity o f [facility] 2021-09-23 2021-09-23 Emergency X [facility] ERT [id number] Univers 15:27:00 18:23:00 KELLY ity [facility] 2021-09-23 2021-09-23 Emergency [place] 1.2.057.158 [id number] Univers 15:27:00 18:23:00 Kelly ALMAZAN 350.1.13.10 ity of [place] 4.2.7.2.686 [place] [facility] [id number] [facility] [address] 2021-09-23 2021-09-23 Orders Doctor PINKY 1.2.840.114 [id number] Univers 00:00:00 00:00:00 Only Unassigned, HU[place] 350.1.13.10 [facility] 4.2.7.2.686 Branden as [id number] [facility] [address] 2021-08-19 2021-08-19 Outpatient R [facility] [id number] Univers 13:30:00 13:30:00 WONDIFUL ity o f [facility] 2021-06-11 2021-06-11 Laboratory Only, Ang Db Test [facility] 1.2.8 40.114 [id number] Univers 11:33:26 11:43:26 Only Eliecer Nicol [facility] 350.1.13.10 ity of [place] 4.2.7.2.686 Branden as Viktor?Blea [phone] [address] Medical Office Building 2021-06-11 2021-06-11 Outpatient Kurtis GONZÁLES [facility] [id number] Univers 11:15:00 11:15:00 NICOL carroll [facility] 2021-01-15 2021-01-15 Outpatient Kurtis [place], [facility] [id number] Univers 15:00:00 15:00:00 FRANCES ity [facility] 2020-12-18 2020-12-18 Outpatient [facility] [id number] Univers 15:00:00 15:00:00 ity [facility] 2020-10-01 2020-10-01 Emergency Zachary Mcnamara [facility] 1.2.840.114 [id number] 15:38:00 17:19:00 Pamela Almazan 350.1.13.10 [place] 4.2.7.2.686 [place] [phone] [facility] 2020-10-01 2020-10-01 Emergency Zachary Mcnamara [facility] 1.2.840.114 [id number] Univers 15:38:00 17:19:00 Pamela Norah 350.1.13.10 i ty of [place] 4.2.7.2.686 [place] [phone] [address] 2020-10-01 2020-10-01 Orders Doctor PINKY 1.2.840.114 [id number] 00:00:00 00:00:00 Only Unassigned, [place] 350.1.13.10 [place] [facility] 4.2.7.2.686 [id number] 009 2020-10-01 2020-10-01 Orders Doctor PINKY 1.2.840.114 [id number] Univers 00:00:00 00:00:00 Only Unassigned, HUDSON 350.1.13.10 ity of [place] [facility] 4.2.7.2.686 Branden as [phone] [address] 2020-04-23 2020-07-03 Laboratory Only, Web [facility] 1.2.840.114 [id number] 09:22:46 08:51:45 Only Test Health 350.1.13.10 Specialty 4.2.7.2.686 Care - [id number] [place] [address] 2020-04-23 2020-07-03 Laboratory Only, Web Test [facility] 1.2.840. 114 [id number] Univers 09:22:46 08:51:45 Only Unknown, Attending Health 350.1.13.10 ity of [place].2.[place] - [phone] [address] 2020-04-23 2020-04-23 Outpatient R [facility] [id number] Univers 09:30:00 09:30:00 ity of [facility] 2020-03-05 2020-03-05 Melva Hurst [facility] 1.2.840.114 [id number] Univers 00:00:00 00:00:00 Repligen 350.1.13.10 it y of [place] 4.2.7.2.686 Branden as Professio [phone] [address] 2020-03-05 2020-03-05 Telephone Julia Laws 1.2.840.114 [id number] Univers 00:00:00 00:00:00 HUDSON 350.1.13.10 it y of [facility] 4.2.7.2.686 Branden as [phone] [address] 2020-03-04 2020-03-04 Urgent Pob1, Acute Care Clinic [facility] 1. 2.840.114 [id number] Univers 15:43:04 16:06:56 Care Aris Repligen 350.1.13.10 ity of [place] 4.2.7.2.686 Branden as Professio [phone] [address] 2020-03-04 2020-03-04 Outpatient R [facility] [id number] Univers 15:40:00 15:40:00 ity of [facility] 2020-02-08 2020-02-08 Outpatient [facility] [id number] 2-2 [facility] 00:00:00 00:00:00 [id number] 2019-10-28 2019-10-29 Outpt Diag nullFlavo [facility] [id number] Memoria 22:20:00 05:59:00 Services r Outpatient 00 l Imaging [facility] 2019-10-28 2019-10-28 Outpatient COUCH, 2.16.840. 2.16.840.1. 3 [id number] 16:20:00 23:59:00 SHARON 1.560480. [id number] 00 BEKA 3.615.30 5.30 Results Test Description Test Time Test Comments Results Result Comments Source POCT URINALYSIS W SPECIFIC GRAVITY 2022-12-29 14:33:00 Test Item Value Reference Range Interpretation Comme nts POCT U SP GRAV (test code = 3255) 1.005 mg/dl 1.005-1.025 POCT PH U (test code = 3254) 7 mg/dl 5-8 POCT U LEUK EST (test code = 3263) Trace Negative - Negative POCT U NIT (test code = 3262) Negative Negative - Negative POCT U PROT (test code = 3259) Negative Negative - Negative POCT U GLU (test code = 3256) Negative Negative - Negative POCT U KETONE (test code = 3258) Negative Negative - Negative POCT U UROBILI (test code = 3260) Normal 0.2-1 POCT U BILI (test code = 3261) Negative Negative - Negative POCT U BLD (test code = 3257) Negative Negative - Negative POCT U COLOR (test code = 3266) Yellow POCT U APPEAR (test code = 3267) Clear Lab Interpretation (test code = 87080-2) Abnormal [facility] URINALYSIS W SPECIFIC [id number] 14:33:00 Test Item Value Reference Range Interpretation Comments POCT U SP GRAV (test code = 1.005 mg/dl 1.005-1.025 5) POCT PH U (test code = 3254) 7 mg/dl 5-8 POCT U LEUK EST (test code = Trace Negative - Negative 3263) POCT U NIT (test code = 3262) Negative Negative - Negative POCT U PROT (test code = Negative Negative - Negative 3259) POCT U GLU (test code = 3256) Negative Negative - Negative POCT U KETONE (test code = Negative Negative - Negative 3258) POCT U UROBILI (test code = Normal 0.2-1 3260) POCT U BILI (test code = Negative Negative - Negative 3261) POCT U BLD (test code = 3257) Negative Negative - Negative POCT U COLOR (test code = Yellow 3266) POCT U APPEAR (test code = Clear 3267) Lab Interpretation (test code Abnormal = 93927-3) [facility] METABOLIC PANEL (NA, K, CL, CO2, GLUCOSE, BUN, CREATININE, CA)2022-11-12 21:48:56 Test Item Value Reference Range Interpretation Comments NA (test code = 135 mmol/L 135-145 3648180847) K (test code = 5.0 mmol/L 3.5-5.0 9007678327) CL (test code = 96 mmol/L 98-108 L 9555300519) CO2 TOTAL (test code = 30 mmol/L 23-31 2537810159) AGAP (test code = 9 2-16 1651327351) BUN (test code = 23 mg/dL 7-23 8464501319) GLUCOSE (test code = 98 mg/dL 70-110 8798607022) CREATININE (test code = 0.85 mg/dL 0.50-1.04 5410836957) CALCIUM (test code = 9.3 mg/dL 8.6-10.6 0192387541) eGFR (test code = 68.5 mL/min/1.73m2 4840537549) GEOVANI (test code = GEOVANI) Association of Glomerular Filtration Rate (GFR) and Staging of Kidney Disease* + --+ --+ ------+| GFR (mL/min/1.73 m2) ?| With Kidney Damage ?| ?Without Kidney Damage+ --------+ --------+ +| ?>90 ?| ?Stage one ?| ? Normal ?+ ---+ ---+ -------+| ?60-89 ?| ?Stage two ?| ? Decreased GFR ? + --+ --+ ------+| ?30-59 ?| ?Stage three ?| ? Stage three ? + --+ --+ ------+| ?15-29 ?| ?Stage four ? | ? Stage four ?+ ---+ ---+ -------+| ?<15 (or dialysis) ? ?| ?Stage five ? | ? Stage five ?+ ---+ ---+ -------+ *Each stage assumes the associated GFR level has been in effect for at least three months. ?Stages 1 to 5, with or without kidney disease, indicate chronic kidney disease. Notes: Determination of stages one and two (with eGFR >59mL/min/1.73 m2) requires estimation of kidney damage for at least three months as defined by structural or functional abnormalities of the kidney, manifested by either:Pathological abnormalities or Markers of kidney damage (including abnormalities in the composition of the blood or urine or abnormalities in imaging tests). Lab Interpretation Abnormal (test code = 37240-8) [facility] URINALYSIS W SPECIFIC [id number] 17:34:00 Test Item Value Reference Range Interpretation Comments POCT U SP GRAV (test code = 1.020 mg/dl 1.005-1.025 3255) POCT PH U (test code = 3254) 5 mg/dl 5-8 POCT U LEUK EST (test code = + Negative - Negative 3263) POCT U NIT (test code = 3262) Neg Negative - Negative POCT U PROT (test code = Trace Negative - Negative 3259) POCT U GLU (test code = 3256) Normal Negative - Negative POCT U KETONE (test code = Neg Negative - Negative 3258) POCT U UROBILI (test code = Normal 0.2-1 3260) POCT U BILI (test code = Neg Negative - Negative 3261) POCT U BLD (test code = 3257) Trace Negative - Negative POCT U COLOR (test code = dark yellow 3266) POCT U APPEAR (test code = clear 3267) [facility] URINALYSIS W SPECIFIC [id number] 17:34:00 Test Item Value Reference Range Interpretation Comments POCT U SP GRAV (test code = 1.020 mg/dl 1.005-1.025 3255) POCT PH U (test code = 3254) 5 mg/dl 5-8 POCT U LEUK EST (test code = + Negative - Negative 3263) POCT U NIT (test code = 3262) Neg Negative - Negative POCT U PROT (test code = Trace Negative - Negative 3259) POCT U GLU (test code = 3256) Normal Negative - Negative POCT U KETONE (test code = Neg Negative - Negative 3258) POCT U UROBILI (test code = Normal 0.2-1 3260) POCT U BILI (test code = Neg Negative - Negative 3261) POCT U BLD (test code = 3257) Trace Negative - Negative POCT U COLOR (test code = dark yellow 3266) POCT U APPEAR (test code = clear 3267) [facility] URINALYSIS W SPECIFIC [id number] 17:34:00 Test Item Value Reference Range Interpretation Comments POCT U SP GRAV (test code = 1.020 mg/dl 1.005-1.025 3255) POCT PH U (test code = 3254) 5 mg/dl 5-8 POCT U LEUK EST (test code = + Negative - Negative 3263) POCT U NIT (test code = 3262) Neg Negative - Negative POCT U PROT (test code = Trace Negative - Negative 3259) POCT U GLU (test code = 3256) Normal Negative - Negative POCT U KETONE (test code = Neg Negative - Negative 3258) POCT U UROBILI (test code = Normal 0.2-1 3260) POCT U BILI (test code = Neg Negative - Negative 3261) POCT U BLD (test code = 3257) Trace Negative - Negative POCT U COLOR (test code = dark yellow 3266) POCT U APPEAR (test code = clear 3267) [facility]2022-10-07 08:15:00 Test Item Value Reference Range Interpretation Comments Potassium Lvl (test code = Potassium 4.0 3.5-5.1 Lvl) [place] 892072-10-07 08:15:00 Test Item Value Reference Range Interpretation Comments Chloride Lvl (test code = Chloride Lvl) 103 95-109 [place] 892072-10-07 08:15:00 Test Item Value Reference Range Interpretation Comments CO2 (test code = CO2) 27 24-32 [place] 892072-10-07 08:15:00 Test Item Value Reference Range Interpretation Comments Calcium Lvl (test code = Calcium Lvl) 8.4 8.5-10.5 [place] 892072-10-07 08:15:00 Test Item Value Reference Range Interpretation Comments AGAP (test code = AGAP) 11.0 10.0-20.0 [place] 892072-10-07 08:15:00 Test Item Value Reference Range Interpretation Comments eGFR (test code = eGFR) 100 [place] 440322-10-07 08:15:00 Test Item Value Reference Range Interpretation Comments Segs (test code = Segs) 71.0 45.0-75.0 [place] 440322-10-07 08:15:00 Test Item Value Reference Range Interpretation Comments Lymphocytes (test code = Lymphocytes) 13.8 20.0-40.0 [place] [address]-10-07 08:15:00 Test Item Value Reference Range Interpretation Comments Monocytes (test code = Monocytes) 13.2 2.0-12.0 [place] [address]-10-07 08:15:00 Test Item Value Reference Range Interpretation Comments Eosinophils (test code = 1.3 See_Comment [A utomated message] The Eosinophils) system which ge nerated this result tra nsmitted reference range : <=4.0. The reference r ariadna was not used to int erpret this result as normal/abnormal . [place] 440322-10-07 08:15:00 Test Item Value Reference Range Interpretation Comments Basophils (test code = 0.7 See_Comment [Aut omated message] The Basophils) system which ge nerated this result tra nsmitted reference range : <=1.0. The reference r ariadna was not used to int erpret this result as normal/abnormal . [place] 440322-10-07 08:15:00 Test Item Value Reference Range Interpretation Comments Neutrophils # (test code = Neutrophils 6.6 1.5-8.1 #) [place] [address]-10-07 08:15:00 Test Item Value Reference Range Interpretation Comments Lymphocytes # (test code = Lymphocytes 1.3 1.0-5.5 #) [place] [address]-10-07 08:15:00 Test Item Value Reference Range Interpretation Comments Monocytes # (test code 1.2 See_Comment [Aut omated message] The = Monocytes #) system which generated this result tra nsmitted reference range : <=0.8. The reference r ariadna was not used to int erpret this result as normal/abnormal . [place] 440322-10-07 08:15:00 Test Item Value Reference Range Interpretation Comments Eosinophils # (test code 0.1 See_Comment [A utomated message] The = Eosinophils #) system whic h generated this result tra nsmitted reference range : <=0.5. The reference r ariadna was not used to int erpret this result as normal/abnormal . [place] 440322-10-07 08:15:00 Test Item Value Reference Range Interpretation Comments Basophils # (test code 0.1 See_Comment [Aut omated message] The = Basophils #) system which generated this result tra nsmitted reference range : <=0.2. The reference r ariadna was not used to int erpret this result as normal/abnormal . [place] [address]-10-07 08:15:00 Test Item Value Reference Range Interpretation Comments WBC (test code = WBC) 9.3 3.7-10.4 [place] [address]-10-07 08:15:00 Test Item Value Reference Range Interpretation Comments RBC (test code = RBC) 3.17 4.20-5.40 [place] [address]-10-07 08:15:00 Test Item Value Reference Range Interpretation Comments Hgb (test code = Hgb) 9.3 12.0-16.0 [place] [address]-10-07 08:15:00 Test Item Value Reference Range Interpretation Comments Hct (test code = Hct) 28.3 36.0-48.0 [place] [address]-10-07 08:15:00 Test Item Value Reference Range Interpretation Comments MCV (test code = MCV) 89.2 80.0-98.0 [place] [address]-10-07 08:15:00 Test Item Value Reference Range Interpretation Comments MCH (test code = MCH) 29.3 pg 27.0-31.0 [place] [address]-10-07 08:15:00 Test Item Value Reference Range Interpretation Comments MCHC (test code = MCHC) 32.9 32.0-36.0 [place] [address]-10-07 08:15:00 Test Item Value Reference Range Interpretation Comments RDW (test code = RDW) 14.4 11.5-14.5 [place] [address]-10-07 08:15:00 Test Item Value Reference Range Interpretation Comments Platelet (test code = Platelet) 343 133-450 [place] 440322-10-07 08:15:00 Test Item Value Reference Range Interpretation Comments MPV (test code = MPV) 6.4 7.4-10.4 [place] 892072-10-07 08:15:00 Test Item Value Reference Range Interpretation Comments Glucose Lvl (test code = Glucose Lvl) 107 70-99 [place] [id number] 08:15:00 Test Item Value Reference Range Interpretation Comments BUN (test code = BUN) 5 7-22 [place] [id number] 08:15:00 Test Item Value Reference Range Interpretation Comments Creatinine Lvl (test code = Creatinine 0.68 0.50-1.40 Lvl) [facility] [employer] [id number] 08:15:00 Test Item Value Reference Range Interpretation Comments Sodium Lvl (test code = Sodium Lvl) 137 135-145 [facility] [id number] 15:24:00 Test Item Value Reference Range Interpretation Comments HS Troponin I 1 Hr (test code = HS 4 Troponin I 1 Hr) [facility] [id number] 15:24:00 Test Item Value Reference Range Interpretation Comments HS Troponin I 0 to 1 Hour Delta (test -1 code = HS Troponin I 0 to 1 Hour Delta) [facility] [id number] 14:22:00 Test Item Value Reference Range Interpretation Comments HS Troponin I Baseline (test code = HS 5 Troponin I Baseline) [facility] [employer] [id number] 07:28:00 Test Item Value Reference Range Interpretation Comments Glucose Lvl (test code = Glucose Lvl) 103 70-99 [facility] CenterOPPR[facility] [id number] 07:28:00 Test Item Value Reference Range Interpretation Comments BUN (test code = BUN) 9 7-22 [facility] ALOHA2022-10-06 07:28:00 Test Item Value Reference Range Interpretation Comments Creatinine Lvl (test code = Creatinine 0.65 0.50-1.40 Lvl) [facility] Center[facility]PR[facility] [id number] 07:28:00 Test Item Value Reference Range Interpretation Comments Sodium Lvl (test code = Sodium Lvl) 133 135-145 [facility] [employer] [id number] 07:28:00 Test Item Value Reference Range Interpretation Comments Potassium Lvl (test code = Potassium 3.8 3.5-5.1 Lvl) [facility] ALOHA2022-10-06 07:28:00 Test Item Value Reference Range Interpretation Comments Chloride Lvl (test code = Chloride Lvl) 102 95-109 [facility] [employer] [id number] 07:28:00 Test Item Value Reference Range Interpretation Comments CO2 (test code = CO2) 24 24-32 [facility] [id number] 07:28:00 Test Item Value Reference Range Interpretation Comments Calcium Lvl (test code = Calcium Lvl) 8.3 8.5-10.5 [facility]2022-10-06 07:28:00 Test Item Value Reference Range Interpretation Comments AGAP (test code = AGAP) 10.8 10.0-20.0 [place] 892072-10-06 07:28:00 Test Item Value Reference Range Interpretation Comments eGFR (test code = eGFR) 101 [facility] CampusFsotyvoHCQXTTUZSX6912-14-93 07:28:00 Test Item Value Reference Range Interpretation Comments WBC (test code = WBC) 9.2 3.7-10.4 [place] 440322-10-06 07:28:00 Test Item Value Reference Range Interpretation Comments RBC (test code = RBC) 3.25 4.20-5.40 [place] 440322-10-06 07:28:00 Test Item Value Reference Range Interpretation Comments Hgb (test code = Hgb) 9.5 12.0-16.0 [place] 440322-10-06 07:28:00 Test Item Value Reference Range Interpretation Comments Hct (test code = Hct) 28.9 36.0-48.0 [place] 440322-10-06 07:28:00 Test Item Value Reference Range Interpretation Comments MCV (test code = MCV) 89.1 80.0-98.0 [place] 440322-10-06 07:28:00 Test Item Value Reference Range Interpretation Comments MCH (test code = MCH) 29.3 pg 27.0-31.0 [place] 440322-10-06 07:28:00 Test Item Value Reference Range Interpretation Comments MCHC (test code = MCHC) 32.8 32.0-36.0 [place] 440322-10-06 07:28:00 Test Item Value Reference Range Interpretation Comments RDW (test code = RDW) 14.4 11.5-14.5 [place] 440322-10-06 07:28:00 Test Item Value Reference Range Interpretation Comments Platelet (test code = Platelet) 319 133-450 [place] 440322-10-06 07:28:00 Test Item Value Reference Range Interpretation Comments MPV (test code = MPV) 6.8 7.4-10.4 [place] 440322-10-06 07:28:00 Test Item Value Reference Range Interpretation Comments Neutrophils # (test code = Neutrophils 6.3 1.5-8.1 #) [facility] CampusCwzommzGSDRZJTJAS2721-34-05 07:28:00 Test Item Value Reference Range Interpretation Comments Lymphocytes # (test code = Lymphocytes 1.0 1.0-5.5 #) [place] 440322-10-06 07:28:00 Test Item Value Reference Range Interpretation Comments Monocytes # (test code 1.9 See_Comment [Aut omated message] The = Monocytes #) system which generated this result tra nsmitted reference range : <=0.8. The reference r ariadna was not used to int erpret this result as normal/abnormal . [facility] CampusArcodtqKIWKCGHINB0908-42-15 07:28:00 Test Item Value Reference Range Interpretation Comments Segs (test code = Segs) 67.0 45.0-75.0 [place] 440322-10-06 07:28:00 Test Item Value Reference Range Interpretation Comments Bands (test code = 1.0 See_Comment [Automat ed message] The Bands) system which ge nerated this result transmit rhea reference range : <=11.0. The reference r ariadna was not used to interpr et this result as jeannie l/abnormal. [facility] CampusIistwcyJIRAABCICU0376-05-56 07:28:00 Test Item Value Reference Range Interpretation Comments Lymphocytes (test code = Lymphocytes) 11.0 20.0-40.0 [place] 440322-10-06 07:28:00 Test Item Value Reference Range Interpretation Comments Monocytes (test code = Monocytes) 21.0 2.0-12.0 [place] 440322-10-06 07:28:00 Test Item Value Reference Range Interpretation Comments Atypical Lymphs (test code = Atypical 0.0 Lymphs) [place] 440322-10-06 07:28:00 Test Item Value Reference Range Interpretation Comments RBC Morph (test code = Normal (07/16/22 2:28 RBC Morph) AM) [place] 440322-10-06 07:28:00 Test Item Value Reference Range Interpretation Comments Plt Morph (test code = Clumped (07/16/22 2:28 Plt Morph) AM) [facility]2022-10-05 05:21:00 Test Item Value Reference Range Interpretation Comments Glucose Lvl (test code = Glucose Lvl) 118 70-99 [facility]2022-10-05 05:21:00 Test Item Value Reference Range Interpretation Comments BUN (test code = BUN) 15 7-22 [place] 892072-10-05 05:21:00 Test Item Value Reference Range Interpretation Comments Creatinine Lvl (test code = Creatinine 0.88 0.50-1.40 Lvl) [place] 892072-10-05 05:21:00 Test Item Value Reference Range Interpretation Comments Sodium Lvl (test code = Sodium Lvl) 130 135-145 [place] 892072-10-05 05:21:00 Test Item Value Reference Range Interpretation Comments Potassium Lvl (test code = Potassium 3.9 3.5-5.1 Lvl) [facility]2022-10-05 05:21:00 Test Item Value Reference Range Interpretation Comments Chloride Lvl (test code = Chloride Lvl) 100 95-109 [facility]2022-10-05 05:21:00 Test Item Value Reference Range Interpretation Comments CO2 (test code = CO2) 22 24-32 [place] 892072-10-05 05:21:00 Test Item Value Reference Range Interpretation Comments Calcium Lvl (test code = Calcium Lvl) 8.4 8.5-10.5 [facility]2022-10-05 05:21:00 Test Item Value Reference Range Interpretation Comments AGAP (test code = AGAP) 11.9 10.0-20.0 [facility]2022-10-05 05:21:00 Test Item Value Reference Range Interpretation Comments eGFR (test code = eGFR) 76 [facility] CampusGwczdteQEQJBOTNEP6687-54-61 05:21:00 Test Item Value Reference Range Interpretation Comments WBC (test code = WBC) 10.8 3.7-10.4 [place] 440322-10-05 05:21:00 Test Item Value Reference Range Interpretation Comments RBC (test code = RBC) 3.50 4.20-5.40 [place] 440322-10-05 05:21:00 Test Item Value Reference Range Interpretation Comments Hgb (test code = Hgb) 10.4 12.0-16.0 [place] 440322-10-05 05:21:00 Test Item Value Reference Range Interpretation Comments Hct (test code = Hct) 30.7 36.0-48.0 [facility] CampusAglbistEBDRSTYISP5308-17-22 05:21:00 Test Item Value Reference Range Interpretation Comments MCV (test code = MCV) 87.7 80.0-98.0 [facility] CampusIejqqwyGTLBUUZOJK2356-37-84 05:21:00 Test Item Value Reference Range Interpretation Comments MCH (test code = MCH) 29.7 pg 27.0-31.0 [facility] Camp[id number] 05:21:00 Test Item Value Reference Range Interpretation Comments MCHC (test code = MCHC) 33.9 32.0-36.0 [facility] CampusUizjkeyQLWCKLICHG8582-01-49 05:21:00 Test Item Value Reference Range Interpretation Comments RDW (test code = RDW) 14.6 11.5-14.5 [facility] CampusYzgaiflIJHKECSQGC5505-26-42 05:21:00 Test Item Value Reference Range Interpretation Comments Platelet (test code = Platelet) 360 133-450 [facility] CampusJebwjinNYRWFKVWTU2602-40-58 05:21:00 Test Item Value Reference Range Interpretation Comments MPV (test code = MPV) 6.7 7.4-10.4 [facility] CampusUhgkvpjMEGRSQIHOF0247-44-30 05:21:00 Test Item Value Reference Range Interpretation Comments Segs (test code = Segs) 77.3 45.0-75.0 [facility] CampusKhzutulKGMZXSQHBH4577-62-61 05:21:00 Test Item Value Reference Range Interpretation Comments Lymphocytes (test code = Lymphocytes) 10.0 20.0-40.0 [facility] CampusQtrqdmtDOBGYSCPET6058-60-85 05:21:00 Test Item Value Reference Range Interpretation Comments Monocytes (test code = Monocytes) 12.5 2.0-12.0 [facility] CampusLpascikRBCSINZBLO2660-44-60 05:21:00 Test Item Value Reference Range Interpretation Comments Eosinophils (test code = 0.1 See_Comment [A utomated message] The Eosinophils) system which ge nerated this result tra nsmitted reference range : <=4.0. The reference r ariadna was not used to int erpret this result as normal/abnormal . [facility] CampusBofwhhtCVESCBRDZT3605-03-51 05:21:00 Test Item Value Reference Range Interpretation Comments Basophils (test code = 0.1 See_Comment [Aut omated message] The Basophils) system which ge nerated this result tra nsmitted reference range : <=1.0. The reference r ariadna was not used to int erpret this result as normal/abnormal . [facility] CampusXaedbnnDWPNJZBLBA3408-34-95 05:21:00 Test Item Value Reference Range Interpretation Comments Neutrophils # (test code = Neutrophils 8.4 1.5-8.1 #) [facility] CampusNgtcbauBWEYYYTMKV1784-11-12 05:21:00 Test Item Value Reference Range Interpretation Comments Lymphocytes # (test code = Lymphocytes 1.1 1.0-5.5 #) [facility] CampusSltdoizQUWOEYPFSQ4559-86-95 05:21:00 Test Item Value Reference Range Interpretation Comments Monocytes # (test code 1.4 See_Comment [Aut omated message] The = Monocytes #) system which generated this result tra nsmitted reference range : <=0.8. The reference r ariadna was not used to int erpret this result as normal/abnormal . [facility] CampusPiswbxlKHEYXFKTZY8888-19-29 12:21:00 Test Item Value Reference Range Interpretation Comments Coronavirus (COVID-19) Not Detected (07/13/22 CATALINA (test code = 7:21 AM) Coronavirus (COVID-19) CATALINA) [facility] CampusBACTERIAL - [id number] 13:49:00 Test Item Value Reference Range Interpretation Comments MRSA by PCR (test Negative (07/02/22 8:49 code = MRSA by PCR) AM) [facility] CampusWhyhfbiWBQVALUEPY1119-42-51 13:49:00 Test Item Value Reference Range Interpretation Comments PT (test code = PT) 13.0 s 12.0-14.7 [facility]op[facility]pLPTDPWEZGG4343-23-17 13:49:00 Test Item Value Reference Range Interpretation Comments INR (test code = INR) 0.99 1 0.85-1.17 [facility] CampusGpfllrbBVYXFAOYDQ6022-70-45 13:49:00 Test Item Value Reference Range Interpretation Comments PTT (test code = PTT) 35.7 s 22.9-35.8 [facility] CampusUdcuaytRMMHYWRKKH3813-36-51 13:49:00 Test Item Value Reference Range Interpretation Comments Eosinophils (test code = 3.6 See_Comment [A utomated message] The Eosinophils) system which ge nerated this result tra nsmitted reference range : <=4.0. The reference r ariadna was not used to int erpret this result as normal/abnormal . [facility] CampusZgpisjkLWEJDMAXDL6749-48-18 13:49:00 Test Item Value Reference Range Interpretation Comments Basophils (test code = 0.6 See_Comment [Aut omated message] The Basophils) system which ge nerated this result tra nsmitted reference range : <=1.0. The reference r ariadna was not used to int erpret this result as normal/abnormal . [facility] CampusImirzfvZNJPIGDDYW1266-45-84 13:49:00 Test Item Value Reference Range Interpretation Comments Eosinophils # (test code 0.2 See_Comment [A utomated message] The = Eosinophils #) system whic h generated this result tra nsmitted reference range : <=0.5. The reference r ariadna was not used to int erpret this result as normal/abnormal . [facility] [id number] 13:49:00 Test Item Value Reference Range Interpretation Comments Hgb A1C (test code = Hgb A1C) 6.3 [facility] AND [id number] 13:49:00 Test Item Value Reference Range Interpretation Comments UA Color (test code = Yellow *NA*(07/02/22 UA Color) 8:49 AM) [facility] AND [id number] 13:49:00 Test Item Value Reference Range Interpretation Comments UA Turbidity (test code = Clear (07/02/22 8:49 UA Turbidity) AM) [facility] AND [id number] 13:49:00 Test Item Value Reference Range Interpretation Comments UA Spec Grav (test code = UA Spec 1.010 1 Grav) [facility] AND [id number] 13:49:00 Test Item Value Reference Range Interpretation Comments UA pH (test code = UA pH) 6.0 1 5.0-8.0 [facility] AND [id number] 13:49:00 Test Item Value Reference Range Interpretation Comments UA Protein (test code = UA Negative mg/dL Protein) [facility] AND [id number] 13:49:00 Test Item Value Reference Range Interpretation Comments UA Glucose (test code = UA Negative mg/dL Glucose) [facility] AND [id number] 13:49:00 Test Item Value Reference Range Interpretation Comments UA Ketones (test code = UA Negative mg/dL Ketones) [facility] AND [id number] 13:49:00 Test Item Value Reference Range Interpretation Comments UA Bili (test code = Negative *NA*(07/02/22 UA Bili) 8:49 AM) [facility] AND [id number] 13:49:00 Test Item Value Reference Range Interpretation Comments UA Blood (test code = Negative (07/02/22 8:49 UA Blood) AM) [facility] AND [id number] 13:49:00 Test Item Value Reference Range Interpretation Comments UA Urobilinogen (test code = UA 0.2 0.1-1.0 Urobilinogen) [facility] AND [id number] 13:49:00 Test Item Value Reference Range Interpretation Comments UA Nitrite (test code Negative (07/02/22 8:49 = UA Nitrite) AM) [facility] AND [id number] 13:49:00 Test Item Value Reference Range Interpretation Comments UA Leuk Est (test Negative (07/02/22 8:49 code = UA Leuk Est) AM) [facility] AND [id number] 13:49:00 Test Item Value Reference Range Interpretation Comments UA Sq Epi (test code = UA Sq Occasional /LPF Epi) [facility] AND [id number] 13:49:00 Test Item Value Reference Range Interpretation Comments UA WBC (test code = 4 See_Comment [Automa rhea message] The UA WBC) system which ge nerated this result transmit rhea reference range : <=5. The reference range was not used to interpr et this result as jeannie l/abnormal. [facility] AND [id number] 13:49:00 Test Item Value Reference Range Interpretation Comments UA RBC (test code = no gt See_Comment [Automa rhea message] The UA RBC) system which ge nerated this result transmit rhea reference range : <=2. The reference range was not used to interpr et this result as jeannie l/abnormal. [facility] CampusCulture: [id number] 13:49:00 Test Item Value Reference Range Interpretation Comments Culture: Urine (test <10,000 CFU/mL Skin code = Culture: Urine) [facility], SPINE, LUMBAR, WITHOUT [id number] 22:22:00Unlisted Reason for Exam - Click Yes and Enter Reason Below->No [facility] : 1965 Sex: FFINAL REPORT EXAM: MR, SPINE, LUMBAR, WITHOUT CONTRAST INDICATION: Back pain or radiculopathy, prior surgery, new symptoms TECHNIQUE: Sagittal T1-, T2-, and T2-w fat-saturated, and axial T1- and T2-w images of the lumbar spine. COMPARISON: None. FINDINGS:Spine Numbering: For purposes of this dictation, it is assumed that there are 5 emv-sds-nriufni, lumbar-type vertebrae, and the most caudal fully [...] L1-L2 with annular fissure. Signed: Brian Blackwood Verified Date/Time: 02/20/2022 22:22:11 US, [id number] 14:13:00Reason for Exam:->HX OF PARTIAL HYPROIDECTOYFINAL REPORT [...] thyroid nodule on this examination. Signed: Eduardo Princeort Verified Date/Time: 02/08/2020 14:13:43 Reading Location: [facility] Diagnostic Imaging Reading Room - [place] [address] BLOOD [id number] 00:00:00 Test Item Value Reference Range Interpretation Comments CULTURE (BEAKER) (test No growth in 5 days code = 1095) BLOOD [id number] 00:00:00 Test Item Value Reference Range Interpretation Comments CULTURE (BEAKER) (test No growth in 5 days code = 1095) BASIC METABOLIC [id number] 11:06:00 Test Item Value Reference Range Interpretation [...] TO CALCULA TE ESTIMATED GFR. BASIC METABOLIC [id number] 07:36:00 Test Item Value Reference Range Interpretation [...] TO CALCULA TE ESTIMATED GFR. BASIC METABOLIC [id number] 19:50:00 Test Item Value Reference Range Interpretation [...] TO CALCULA TE ESTIMATED GFR. BASIC METABOLIC [id number] 08:59:00 Test Item Value Reference Range Interpretation [...] TO CALCULA TE ESTIMATED GFR. BASIC METABOLIC [id number] 01:18:00 Test Item Value Reference Range Interpretation [...] TO CALCULA TE ESTIMATED GFR. BASIC METABOLIC [id number] 16:32:00 Test Item Value Reference Range Interpretation [...] TO CALCULA TE ESTIMATED GFR. U/S, ABDOMINAL, [id number] 14:54:00Abdomen limited area? Add comment if clarification [...] Petersort Verified Date/Time: 04/05/2018 14:54:01 Reading Location: [place] [id number] Ultrasound Reading Room HEPATIC FUNCTION [id number] 14:03:00 Test Item Value Reference Range Interpretation [...] = 21 U/L 6-55 347) BASIC METABOLIC [id number] 09:16:00 Test Item Value Reference Range Interpretation [...] ESTIMATED GFR. CBC W/PLT COUNT & AUTO [id number] 08:44:00 Test Item Value Reference Range Interpretation [...] (BEAKER) (test code = 2801) BASIC METABOLIC [id number] 01:06:00 Test Item Value Reference Range Interpretation [...] m DATA TO CALCULA TE ESTIMATED GFR. [id number] 18:02:00 Test Item Value Reference Range Interpretation Comments AMMONIA (BEAKER) (test code = 348) 35 mol/L 18-72 BASIC METABOLIC [id number] 17:31:00 Test Item Value Reference Range Interpretation [...] TO CALCULA TE ESTIMATED GFR. BASIC METABOLIC [id number] 09:29:00 Test Item Value Reference Range Interpretation [...] TO CALCULA TE ESTIMATED GFR. BLOOD GAS, [id number] 05:19:00 Test Item Value Reference Range Interpretation [...] C (test code = 1818) BASIC METABOLIC [id number] 03:52:00 Test Item Value Reference Range Interpretation [...] m DATA TO CALCULA TE ESTIMATED GFR. [id number] 03:48:00 Test Item Value Reference Range Interpretation Comments PHOSPHORUS (BEAKER) (test code = 3.6 mg/dL 2.3-4.7 604) [id number] 03:48:00 Test Item Value Reference Range Interpretation Comments MAGNESIUM (BEAKER) (test code = 2.1 mg/dL 1.6-2.6 627) LACTIC ACID, VENOUS, WHOLE [id number] 03:44:00 Test Item Value Reference Range Interpretation [...] WBC 0-0 (BEAKER) (test code = 413) [id number] 02:06:00 Test Item Value Reference Range Interpretation Comments CORTISOL, TOTAL (BEAKER) (test 17.8 ug/dL 3.7-19.4 code = 2755) TSH/FREE T4 IF [id number] 02:06:00 Test Item Value Reference Range Interpretation Comments THYROID STIMULATING HORMONE 1.09 uIU/mL 0.35-4.94 (BEAKER) (test code = 772) HIV-1 ANTIGEN WITH HIV-1/2 [id number] 00:06:00 Test Item Value Reference Range Interpretation Comments HIV-1 ANTIGEN WITH HIV 1\\T\\2 Nonreactive Nonreactive ANTIBODY (2) (BEAKER) (test code = 2586) BASIC METABOLIC [id number] 23:30:00 Test Item Value Reference Range Interpretation [...] ESTIMATED GFR. RAD, CHEST, 1 VIEW, NON [id number] 21:34:00Reason for exam:->ALTERED MENTAL STATUSReason for exam:->NEUROLOGIC [...] MDReport Verified Date/Time: 04/03/2018 21:34:48 Reading Location: [address] Reading Room OSMOLALITY, [id number] 21:10:00 Test Item Value Reference Range Interpretation Comments OSMOLALITY, SERUM (BEAKER) (test 236 mOsm/kg 275-295 L code = 615) RAPID DRUG SCREEN, [id number] 20:47:00 Test Item Value Reference Range Interpretation [...] situations. Chain of custody not maintained. Some whgp-vwh-gshcojk medications, as well as adulterants, may cause inaccurate results. Clinical correlation should be applied. A more comprehensive drug screen or confirmation of a detected drug may be performed upon request. [id number] 20:43:00 Test Item Value Reference Range Interpretation Comments PHOSPHORUS (BEAKER) (test code = 1.8 mg/dL 2.3-4.7 L 604) HEPATIC FUNCTION [id number] 20:43:00 Test Item Value Reference Range Interpretation [...] (test code = 22 U/L 6-55 347) [id number] 20:43:00 Test Item Value Reference Range Interpretation Comments LIPASE (BEAKER) (test code = 749) 21 U/L 8-78 CREATININE, RANDOM [id number] 20:40:00 Test Item Value Reference Range Interpretation Comments CREATININE URINE (BEAKER) (test 11.7 mg/dL code = 375) Reference Range: No NormalsSODIUM, RANDOM [id number] 20:40:00 Test Item Value Reference Range Interpretation Comments SODIUM URINE (BEAKER) (test code = 60 meq/L 243) Reference Range: No NormalsOSMOLALITY, [id number] 20:40:00 Test Item Value Reference Range Interpretation Comments OSMOLALITY URINE (BEAKER) (test 169 mOsm/kg 40-1400 code = 614) [id number] 20:37:00 Test Item Value Reference Range Interpretation Comments ETHANOL (BEAKER) (test code = 400) < mg/dL <=10 [id number] 20:35:00 Test Item Value Reference Range Interpretation Comments AMMONIA (BEAKER) (test code = 348) 33 mol/L 18-72 MR, MRA, BRAIN, WITHOUT [id number] 19:42:00FINAL REPORT MRA head and neck without contrast. CLINICAL HISTORY: Stroke. ARVIN RISON: None. TECHNIQUE: Two- and three-dimensional eiwl-qw-mxacae MRA images of the intra- and extracranial [...] right common carotid artery (image 1). MRA [place]: There is no vessel occlusion, [...] Prater of neurology was [facility] [place] 7:40 PM on 04/03/2018. Signed: Leela Pina MDRort Verified Date/Time: 04/03/2018 19:42:20 Reading Location: [address] Reading Room MR, MRA, NECK, WITHOUT IV [id number] 19:42:00FINAL REPORT MRA head and neck without contrast. CLINICAL HISTORY: Stroke. COMPARISON: None. TECHNIQUE: Two- and three-dimensional cbha-wo-ddjyzb MRA images of the intra- and extracranial [...] right common carotid artery (image 1). MRA [place]: There is no vessel occlusion, [...] MDReport Verified Date/Time: 04/03/2018 19:42:20 Reading Location: [address] Reading Room CREATINE KINASE (CK), TOTAL AND [id number] 19:36:00 Test Item Value Reference Range Interpretation Comments CREATINE KINASE TOTAL (BEAKER) 103 U/L 29-200 (test code = 380) CREATINE KINASE-MB (BEAKER) (test 2.5 ng/mL 0.0-6.6 code = 750) CREATINE KINASE-MB INDEX (BEAKER) 2.4 % (test code = 395) CK-MB Reference Range:<6.7 Normal6.7-10.0 Borderline>10.0 AbnormalTROPONIN [id number] 19:36:00 Test Item Value Reference Range Interpretation [...] neurological disease, and persistent tachyarrhythmia.MR, BRAIN, WITHOUT [id number] 19:34:00FINAL REPORT Exam: MRI brain without contrast. [...] MDReport Verified Date/Time: 04/03/2018 19:34:38 Reading Location: [address] Reading Room B-TYPE NATRIURETIC FACTOR (BNP)2018-04-03 19:33:00 Test Item Value Reference Range Interpretation Comments B-TYPE NATRIURETIC PEPTIDE (BEAKER) 90 pg/mL 0-100 (test code = 700) URINALYSIS W/ [id number] 18:43:00 Test Item Value Reference Range Interpretation [...] 520) SOURCE(BEAKER) (test code = Urine, [place]en 0407) BASIC METABOLIC [id number] 18:32:00 Test Item Value Reference Range Interpretation [...] m DATA TO CALCULA TE ESTIMATED GFR. [id number] 18:28:00 Test Item Value Reference Range Interpretation Comments MAGNESIUM (BEAKER) (test code = 1.7 mg/dL 1.6-2.6 627) [id number] 18:02:00 Test Item Value Reference Range Interpretation [...] mechanical heart valves.CBC W/PLT COUNT & AUTO [id number] 17:54:00 Test Item Value Reference Range Interpretation [...] PERCENT (BEAKER) (test code = 2801) POCT-GLUCOSE [id number] 17:49:00 Test Item Value Reference Range Interpretation Comments POC-GLUCOSE METER 100 mg/dL 70-110 TESTED AT [facility] 67[address] ([facility]) (test code = ALDA [facility] 1538) [address] CT, BRAIN/STROKE [id number] 17:45:00Reason for exam:->stroke protocolIs the patient ?->NoWhat [...] Miranda Verified Date/Time: 04/03/2018 17:45:48 Reading Location: [address] Reading Room
[2023-02-22] MEDS ORDERED: ASPIRIN 81 MG CHEWABLE TABLET ONE (05:50)
[2023-02-22] MEDS ORDERED: ONDANSETRON 4 MG/2 ML VIAL ONE (05:51)
[2023-02-22] MEDS ORDERED: MORPHINE 4 MG/ML SYR ONE (05:51)
[2023-02-22] MEDS ORDERED: NA CHLORIDE 0.9% 1,000 ML ONE (05:51)
[2023-02-22 06:03] LABS: Absolute Lymphocytes (CBC) 1.5 K/uL (0.7-4.9); Hematocrit 34.6 % (36.0-45.0); MCV 79.6 fL (80-100); MPV 6.3 fL (7.6-11.3); RBC Red Blood Cell Count 4.35 M/uL (3.86-4.86)
[2023-02-22 06:15] LABS: Protime INR 0.85
[2023-02-22 06:28] LABS: ALT/SGPT 28 U/L (13-56); AST/SGOT 16 U/L (15-37); Albumin 3.7 g/dL (3.4-5.0); Alkaline Phosphatase 106 U/L (45-117); BUN Blood Urea Nitrogen 10 mg/dL (7-18); Bicarbonate 26 mEq/L (21-32); Bilirubin Total 0.3 mg/dL (0.2-1.0); Glomerular Filtration Rate 78 ml/min (=/>90); Glucose Level 129 mg/dL (74-106); NT PRO-BNP 531 pg/mL (<125); Potassium 3.9 mEq/L (3.5-5.1); Protein, Total 7.2 g/dL (6.4-8.2); Sodium Level 131 mEq/L (136-145); Troponin High Sensitivity 3.9 pg/mL (<58.9)
[2023-02-22 06:31] LABS: Bilirubin Direct < 0.1 mg/dL (0-0.2); Bilirubin Indirect, Calculated ND mg/dL (0.2-0.8)
--- NOTE | 2023-02-22 07:46 | RAD REPORT ---
EXAM DESCRIPTION: CT - Chest For Pe Angio - 02/22/2023 6:49 am CLINICAL HISTORY: CHEST PAIN COMPARISON: No comparisons TECHNIQUE: Dynamically enhanced axial 3 mm thick images of the chest were obtained during administra tion of <100> mL Isovue 370 IV contrast. Coronal and oblique reconstruction images were generated and reviewed. Exam utilizes a protocol for optimal evaluation of pulmonary arterial tree. Maximum intensity projections 3D imaging was utilized All CT scans are performed using dose optimization technique as appropriate and may include automated exposure control or mA/KV adjustment according to patient size. FINDINGS: Chest Wall: No suspicious thyroid nodules or pathologic lymphadenopathy. Lungs: No acute abnormality. Pleura: No significant effusions or pneumothorax. Mediastinum/aziza: No pathologic lymphadenopathy. Pulmonary arteries/Aorta: No filling defect identified. No aortic aneurysm. Heart: No significant pericardial effusion. Cardiomegaly. Small pericardial effusion. Upper abdomen: No acute abnormality.Too small to characterize liver lesions which are likely benign. Bones: No acute abnormality. IMPRESSION: Negative for pulmonary embolism. No acute process in the chest.
--- NOTE | 2023-02-22 07:54 | ER ---
Nurse's Notes [facility] Name: Lizbet Solares Age: 57 yrs Sex: Female : 1965 Arrival Date: 02/22/2023 Time: 05:13 Bed 6 Private MD: Diagnosis: Chest pain, unspecified Presentation: 02/22 05:30 Chief complaint: Patient states: chest pain x 2 days left upper chest radiates to kl shoulder. Coronavirus screen: Vaccine status: Patient reports receiving the 2nd dose of the covid vaccine. Ebola Screen: Patient negative for fever greater than or equal to 101.5 degrees Fahrenheit, and additional compatible Ebola Virus Disease symptoms. Initial Sepsis Screen: Does the patient meet any 2 criteria? Yes Does the patient have a suspected source of infection? No. Patient's initial sepsis screen is negative. Risk Assessment: Do you want to hurt yourself or someone else? Patient reports no desire to harm self or others. 05:30 Method Of Arrival: Ambulatory 05:30 Acuity: NAFISA 3 kl 06:12 Care prior to arrival: Medication(s) given: ASA, 81 mg, x 2. kl Triage Assessment: 05:55 General: Appears uncomfortable, well groomed, well developed, Behavior is calm, kl cooperative. Pain: Complains of pain in anterior aspect of left upper chest Pain currently is 6 out of 10 on a pain scale. Quality of pain is described as sharp. EENT: No deficits noted. Neuro: No deficits noted. Cardiovascular: Reports chest pain, Denies palpitations, shortness of breath, syncope, Rhythm is sinus bradycardia. Historical: - Allergies: 07:30 No Known Allergies; jl7 - PMHx: 06:24 Anxiety; chronic back pain; Depression; GERD; Hypertension; Hypothyroidism; vc1 - Immunization history:: Adult Immunizations unknown. - Social history:: Smoking status: unknown. - Family history:: not pertinent. Screenin:25 [facility] ED Fall Risk Assessment (Adult) History of falling in the last 3 months, vc1 including since admission No falls in past 3 months (0 pts) Confusion or Disorientation No (0 pts) Intoxicated or Sedated No (0 pts) Impaired Gait No (0 pts) Mobility Assist Device Used No (0 pt) Altered Elimination No (0 pt) Score/Fall Risk Level 0 - 2 = Low Risk Oriented to surroundings, Maintained a safe environment, Educated pt \T\ family on fall prevention, incl call for assistance when getting out of bed. Abuse screen: Denies threats or abuse. Nutritional screening: No deficits noted. Tuberculosis screening: No symptoms or risk factors identified. Assessment: 05:40 General: Appears in no apparent distress. uncomfortable, well groomed, well developed, pf1 Behavior is calm, cooperative, appropriate for age, quiet. 05:40 Pain: Complains of pain in chest that radiates to left shoulder,onset 2 days Pain pf1 radiates to left shoulder Pain currently is 8 out of 10 on a pain scale. Pain began 2-3 days ago. Neuro: No deficits noted. Level of Consciousness is awake, alert, obeys commands, Oriented to person, place, time, situation. Cardiovascular: Reports chest pain, Capillary refill < 3 seconds Patient's skin is warm and dry. Respiratory: No deficits noted. Airway is patent Trachea midline Respiratory effort is even, unlabored, Respiratory pattern is regular, symmetrical, Breath sounds are clear bilaterally. GI: No deficits noted. No signs and/or symptoms were reported involving the gastrointestinal system. Abdomen is round non-distended. : No deficits noted. No signs and/or symptoms were reported regarding the genitourinary system. EENT: No deficits noted. No signs and/or symptoms were reported regarding the EENT system. 06:38 Reassessment: Patient appears in no apparent distress at this time. No changes from pf1 previously documented assessment. Patient and/or family updated on plan of care and expected duration. Pain level reassessed. Patient is alert, oriented x 3, equal unlabored respirations, skin warm/dry/pink. Patient states symptoms have improved. 07:31 Reassessment: Dr. Garcia at bedside discussing results and POC. General: Appears in jl7 no apparent distress. uncomfortable, Behavior is calm, cooperative, appropriate for age. 07:42 Reassessment: Patient and/or family updated on plan of care and expected duration. Pain ap3 level reassessed. Patient is alert, oriented x 3, equal unlabored respirations, skin warm/dry/pink. 09:00 Reassessment: Patient appears in no apparent distress at this time. No changes from jl7 previously documented assessment. Patient and/or family updated on plan of care and expected duration. Pain level reassessed. Patient is alert, oriented x 3, equal unlabored respirations, skin warm/dry/pink. 10:00 Reassessment: Patient appears in no apparent distress at this time. No changes from jl7 previously documented assessment. Patient and/or family updated on plan of care and expected duration. Pain level reassessed. Patient is alert, oriented x 3, equal unlabored respirations, skin warm/dry/pink. 10:15 Reassessment: Attempted to call report, on hold for 7 minutes, EVER Munoz unavailable jl7 at this time. Vital Signs: 05:30 BP 151 / 90; Pulse 58; Resp 16; Temp 97(TE); Pulse Ox 99% on R/A; Pain 6/10; kl 06:00 BP 134 / 79; Pulse 59; Resp 17; Pulse Ox 97% on R/A; vc1 06:30 BP 128 / 85; Pulse 58; Resp 16; Pulse Ox 95% on R/A; Pain 5/10; pf1 07:40 BP 134 / 79; Pulse 58; Pulse Ox 96% on R/A; ap3 09:00 BP 126 / 83; Pulse 59; Resp 15; Pulse Ox 100% ; Pain 5/10; jl7 05:30 Pain Scale: Adult kl 06:30 Pain Scale: Adult pf1 09:00 Pain Scale: Adult jl7 ED Course: 05:14 Patient arrived in ED. jj6 05:21 Jcarlos Garcia MD is Attending Physician. sp4 05:37 XRAY Chest (1 view) In Process Unspecified. EDMS 05:40 No provider procedures requiring assistance completed. Inserted saline lock: 20 gauge pf1 in right antecubital area, using aseptic technique. Blood collected. 05:40 Patient maintains SpO2 saturation greater than 95% on room air. pf1 05:54 Triage completed. kl 05:55 EKG completed in triage. Results shown to . kl 06:20 Kelly parada, EVER is Primary Nurse. pf1 06:49 CT Chest For PE Angio In Process Unspecified. EDMS 07:00 Patient has correct armband on for positive identification. Bed in low position. Call jl7 light in reach. Side rails up X 1. Client placed on continuous cardiac and pulse oximetry monitoring. NIBP monitoring applied. 07:00 Patient admitted, IV remains in place. intact, No redness/swelling at site. jl7 07:30 Arm band placed on right wrist. jl7 07:53 Ottoniel Cruz MD is Hospitalizing Provider. sp4 08:06 Primary Nurse role handed off by Kelly Parada RN jl7 08:06 Phil Meade RN is Primary Nurse. jl7 Administered Medications: 05:45 Drug: Aspirin PO Chewable Tablet 162 mg Route: PO; pf1 06:38 Follow up: Response: No adverse reaction; Marked relief of symptoms; Pain is decreased pf1 05:50 Drug: NS 0.9% IV 1000 ml Route: IV; Rate: 125 ml/hr; Site: right antecubital; pf1 06:39 Follow up: Response: No adverse reaction; Marked relief of symptoms pf1 05:50 Drug: morphine IVP or IV 4 mg Route: IVP; Infused Over: 4 mins; Site: right antecubital;pf1 06:38 Follow up: Response: No adverse reaction; Marked relief of symptoms; Pain is decreased; pf1 RASS: Alert and Calm (0) 05:50 Drug: Ondansetron IVP 4 mg Route: IVP; Site: right antecubital; pf1 06:38 Follow up: Response: No adverse reaction; Marked relief of symptoms pf1 06:09 Not Given (Other Intervention Used): Aspirin PO Chewable Tablet 324 mg PO once; 81 mg kl tablets x 4 Medication: 06:26 VIS not applicable for this client. vc1 Outcome: 07:54 Decision to Hospitalize by Provider. sp4 11:29 Admitted to Tele accompanied by the [facility], via wheelchair, room 217, with chart, Report jl7 called to EVER Munoz 11:29 Condition: stable 11:29 Discharge instructions given to patient, Instructed on the need for admit, Demonstrated understanding of instructions. 11:30 Patient left the ED. jl7 Signatures: Dispatcher [employer] EDMS Tiny Monk RN RN kl Leal, Jahala, RN RN jl7 Prokisch, Amanda, RN RN ap3 Alexandria Bruno Vanessa, RN RN vc1 Kelly Parada RN RN pf1 Jcarlos Garcia MD MD sp4 Corrections: (The following items were deleted from the chart) 06:25 06:24 PMHx: Anxiety; vc1 vc1
--- NOTE | 2023-02-22 07:55 | EDPHYS ---
Physician Documentation [facility] Name: Lizbet Solares Age: 57 yrs Sex: Female : 1965 Arrival Date: 02/22/2023 Time: 05:13 Bed 6 Private MD: ED Physician Jcarlos Garcia HPI: 02/22 05:22 This 57 yrs old Female presents to ER via Unassigned with complaints of Chest sp4 Pain. 07:35 57-year-old female past medical history of hypertension presents with acute onset of sp4 right-sided chest pressure 8 out of 10 starting 2 days ago. Patient took 2 baby aspirin's at home prior to arrival. Historical: - Allergies: 07:30 No Known Allergies; jl7 - PMHx: 06:24 Anxiety; chronic back pain; Depression; GERD; Hypertension; Hypothyroidism; vc1 - Immunization history:: Adult Immunizations unknown. - Social history:: Smoking status: unknown. - Family history:: not pertinent. ROS: 07:35 Constitutional: Negative for fever, chills, and weight loss, Eyes: Negative for injury, sp4 pain, redness, and discharge, ENT: Negative for injury, pain, and discharge, Neck: Negative for injury, pain, and swelling, Cardiovascular: Negative for palpitations, and edema, positive for chest pain Respiratory: Negative for shortness of breath, cough, wheezing, and pleuritic chest pain, Abdomen/GI: Negative for abdominal pain, nausea, vomiting, diarrhea, and constipation, Back: Negative for injury and pain, : Negative for injury, bleeding, discharge, and swelling, MS/Extremity: Negative for injury and deformity, Skin: Negative for injury, rash, and discoloration, Neuro: Negative for headache, weakness, numbness, tingling, and seizure, Psych: Negative for depression, anxiety, Allergy/Immunology: Negative for hives, rash, and allergies Endocrine: Negative for neck swelling, polydipsia, polyuria, polyphagia, and weight changes Hematologic/Lymphatic: Negative for swollen nodes, abnormal bleeding, and unusual bruising Exam: 07:35 Constitutional: This is a well developed, well nourished patient who is awake, alert, sp4 and in no acute distress. Head/Face: Normocephalic, atraumatic. Eyes: Pupils equal round and reactive to light, extra-ocular motions intact. Lids and lashes normal. Conjunctiva and sclera are not injected. Cornea within normal limits. Periorbital areas with no swelling, redness, or edema. ENT: Nares patent. No nasal discharge, no septal abnormalities noted. Tympanic membranes are normal and external auditory canals are clear. Oropharynx with no redness, swelling, or masses, exudates, or evidence of obstruction, uvula midline. Mucous membranes moist. Neck: Trachea midline, no thyromegaly or masses palpated, and no cervical lymphadenopathy. Supple, full range of motion without nuchal rigidity, or vertebral point tenderness. No Meningismus. Chest/axilla: Normal chest wall appearance and motion. Nontender with no deformity. No lesions are appreciated. Cardiovascular: Regular rate and rhythm with a normal S1 and S2. No gallops, murmurs, or rubs. Normal PMI, no JVD. No pulse deficits. Respiratory: Lungs have equal breath sounds bilaterally, clear to auscultation and percussion. No rales, rhonchi or wheezes noted. No increased work of breathing, no retractions or nasal flaring. Abdomen/GI: Soft, non-tender, with normal bowel sounds. No distension or tympany. No guarding or rebound. No evidence of tenderness throughout. Back: No spinal tenderness. No costovertebral tenderness. Skin: Warm, dry with normal turgor. Normal color with no rashes, no lesions, and no evidence of cellulitis. MS/ Extremity: Pulses equal, no cyanosis. Neurovascular intact. Full, normal range of motion. Neuro: Awake and alert, GCS 15, oriented to person, place, time, and situation. Cranial nerves II-XII grossly intact. Motor strength 5/5 in all extremities. Sensory grossly intact. Psych: Awake, alert, with orientation to person, place and time. Behavior, mood, and affect are within normal limits 07:35 ECG was reviewed by the Attending Physician. EKG time 0 524. There is sinus sp4 bradycardia at rate of 59. No ST elevation or depression, otherwise normal EKG Vital Signs: 05:30 BP 151 / 90; Pulse 58; Resp 16; Temp 97(TE); Pulse Ox 99% on R/A; Pain 6/10; kl 06:00 BP 134 / 79; Pulse 59; Resp 17; Pulse Ox 97% on R/A; vc1 06:30 BP 128 / 85; Pulse 58; Resp 16; Pulse Ox 95% on R/A; Pain 5/10; pf1 07:40 BP 134 / 79; Pulse 58; Pulse Ox 96% on R/A; ap3 09:00 BP 126 / 83; Pulse 59; Resp 15; Pulse Ox 100% ; Pain 5/10; jl7 05:30 Pain Scale: Adult kl 06:30 Pain Scale: Adult pf1 09:00 Pain Scale: Adult jl7 MDM: 05:22 Patient medically screened. sp4 07:35 Differential diagnosis: abnormal EKG, acute myocardial infarction, acute pericarditis, sp4 anxiety, coronary artery disease chest wall pain, congestive heart failure cholecystitis, pulmonary embolus. HEART Score: History: Moderately Suspicious (1), ECG: Normal (0), Age: > 45 and < 65 years (1), Risk Factors: 1 or 2 risk factors (1), Troponin: < or = 1 x Normal Limit (0), Total Score = 3. The patient was given aspirin in the Emergency Department. Data reviewed: vital signs, nurses notes, old medical records, lab test result(s), EKG, radiologic studies, CT scan, plain films. ED course: Initial work-up is negative for acute coronary syndrome. CT chest obtained to rule out PE. 07:52 ED course: CT chest reveals no pulmonary embolus and no acute process in the chest. sp4 Patient was discussed with admitting hospitalist who accepted patient for rule out ACS work-up possible consult with cardiology. 02/22 05:22 Order name: Basic Metabolic Panel; Complete Time: 07:29 4 02/22 05:22 Order name: CBC with Diff; Complete Time: 07:29 4 02/22 05:22 Order name: LFT's; Complete Time: 07:29 4 02/22 05:22 Order name: NT PRO-BNP; Complete Time: 07:29 4 02/22 05:22 Order name: PT-INR; Complete Time: 07:29 sp4 02/22 05:22 Order name: Troponin HS; Complete Time: 07:29 4 02/22 10:42 Order name: Iron EDMS 02/22 10:42 Order name: Transferrin Sat/Iron Binding EDMS 02/22 05:22 Order name: XRAY Chest (1 view) 4 02/22 05:29 Order name: CT Chest For PE Angio 4 02/22 05:22 Order name: EKG; Complete Time: 05:23 sp4 02/22 05:22 Order name: Cardiac monitoring; Complete Time: 05:47 4 02/22 05:22 Order name: EKG - Nurse/Tech; Complete Time: 05:47 4 02/22 05:22 Order name: IV Saline Lock; Complete Time: 06:33 sp4 02/22 05:22 Order name: Labs collected and sent; Complete Time: 06:33 4 02/22 05:22 Order name: O2 Per Protocol; Complete Time: 05:47 sp4 02/22 05:22 Order name: O2 Sat Monitoring; Complete Time: :47 EC:35 Rate is 59 beats/min. Rhythm is regular, Sinus bradycardia. QRS [place] is Normal. PA sp4 interval is normal. QRS interval is normal. QT interval is normal. T waves are Normal. No ST changes noted. Clinical impression: No evidence of ischemia. Interpreted by me. Administered Medications: 05:45 Drug: Aspirin PO Chewable Tablet 162 mg Route: PO; pf1 06:38 Follow up: Response: No adverse reaction; Marked relief of symptoms; Pain is decreased pf1 05:50 Drug: NS 0.9% IV 1000 ml Route: IV; Rate: 125 ml/hr; Site: right antecubital; pf1 06:39 Follow up: Response: No adverse reaction; Marked relief of symptoms pf1 05:50 Drug: morphine IVP or IV 4 mg Route: IVP; Infused Over: 4 mins; Site: right antecubital;pf1 06:38 Follow up: Response: No adverse reaction; Marked relief of symptoms; Pain is decreased; pf1 RASS: Alert and Calm (0) 05:50 Drug: Ondansetron IVP 4 mg Route: IVP; Site: right antecubital; pf1 06:38 Follow up: Response: No adverse reaction; Marked relief of symptoms pf1 06:09 Not Given (Other Intervention Used): Aspirin PO Chewable Tablet 324 mg PO once; 81 mg kl tablets x 4 Disposition Summary: 02/22/23 07:54 Hospitalization Ordered Hospitalization Status: Observation sp4 Provider: Cruz, Ottoniel sp4 Location: Telemetry/MedSurg (observation) sp4 Condition: Stable sp4 Problem: new sp4 Symptoms: have improved sp4 Bed/Room Type: Standard sp4 Room Assignment: 217(02/22/23 10:01) bd Diagnosis - Chest pain, unspecified sp4 Forms: - Medication Reconciliation Form sp4 - SBAR form sp4 Signatures: Dispatcher [employer] EDBrunilda Martinez Kimberly, RN RN Phil Gannon RN RN jl7 Brittny Patel RN RN vc1 Kelly Loza RN RN pf1 Jcarlos Garcia MD MD sp4 Corrections: (The following items were deleted from the chart) 06:25 06:24 PMHx: Anxiety; vc1 vc1 10:01 07:54 sp4 bd
[2023-02-22] MEDS ORDERED: ACETAMINOPHEN 325 MG TABLET PO PRN (09:32)
[2023-02-22] MEDS ORDERED: NITROGLYCERIN 0.4 MG/TAB SL PRN (09:33)
[2023-02-22] MEDS ORDERED: HYDRALAZINE HCL 20 MG/ML VIAL IV PRN (10:12)
[2023-02-22] MEDS ORDERED: ONDANSETRON 4 MG/2 ML VIAL IV PRN (10:16)
--- NOTE | 2023-02-22 10:31 | P.HP ---
Certification for Inpatient Patient admitted to: Observation With expected LOS: <2 Midnights Patient will require the following post-hospital care: None Practitioner: I am a practitioner with admitting privileges, knowledge of patient current condition, hospital course, and medical plan of care. Services: Services provided to patient in accordance with Admission requirements found in Title 42 Section 412.3 of the Code of Federal Regulations Patient History Date of Service: 02/22/23 Reason for admission: Chest pain History of Present Illness: Patient is a 57-year-old female with a past medical history significant for anxiety disorder, chronic back pain, depression, GERD, hypertension, hypothyroidism who presents with complaint of chest pain located in the left chest onset 2 days ago. Patient indicated that chest pain is located in the left chest wall, rated pain as 8/10 in severity and described pain as sharp in quality.. Patient indicated that chest pain has been constant. Patient reported associated signs and symptoms of fatigue, weakness and palpitations. Patient denies any other signs and symptoms. Symptoms are aggravated or relieved by nothing. Patient decided to present to the hospital due to worsening symptoms. Allergies No Known Allergies Allergy (Verified 11/21/21 13:36) Home Medications: Levothyroxine [Synthroid*] 88 mcg PO [id number] 06/09/17 ARIPiprazole [Abilify] 5 mg PO BEDTIME 11/21/21 Escitalopram [Lexapro*] 30 mg PO DAILY 11/21/21 Felodipine [Plendil] 5 mg PO BEDTIME 11/21/21 Liothyronine [Cytomel] 5 mcg PO BID 11/21/21 Metoprolol Succinate 100 mg PO DAILY 11/21/21 Omeprazole 20 mg PO DAILY 11/21/21 Rosuvastatin [Crestor*] 10 mg PO DAILY 11/21/21 buPROPion HCL [Forfivo Xl] 450 mg PO DAILY 11/21/21 - Past Medical/Surgical History Diabetic: No -: Hypertension -: Alcohol abuse -: Hypothyroidism -: Arthritis -: ADD -: Hysterectomy -: Partial thyroidectomy Psychosocial/ Personal History: The patient is . She has 7 children. She does not work at this time. - Family History Father -: Heart disease Mother -: Heart disease, Other (see notes) - Social History Smoking Status: Former smoker Alcohol use: Yes CD- Drugs: No Caffeine use: Yes Place of Residence: Home Review of Systems General: Weakness, Other (Fatigue) Eyes: Unremarkable ENT: Unremarkable Respiratory: Unremarkable Cardiovascular: Chest Pain, Palpitations Gastrointestinal: Unremarkable Genitourinary: Unremarkable Musculoskeletal: Back Pain Integumentary: Unremarkable Neurological: Weakness Lymphatics: Unremarkable Physical Examination - Physical Exam General: Alert, In no apparent distress, Oriented x3, Cooperative HEENT: Atraumatic, PERRLA, Mucous membr. moist/pink, EOMI, Sclerae nonicteric Neck: Supple, 2+ carotid pulse no bruit, No LAD, Without JVD or thyroid abnormality Respiratory: Clear to auscultation bilaterally, Normal air movement Cardiovascular: No edema, Regular rate/rhythm, Normal S1 S2 Capillary refill: <2 Seconds Gastrointestinal: Normal bowel sounds, Soft and benign, No tenderness Musculoskeletal: No clubbing, No swelling, No tenderness Integumentary: No rashes, No significant lesion, No tenderness/swelling Neurological: Normal speech, Normal strength at 5/5 x4 extr, Normal tone, Normal affect Lymphatics: No axilla or inguinal lymphadenopathy - Studies Laboratory Data (last 24 hrs) 02/22/23 05:50: PT 9.3 L, INR 0.85 02/22/23 05:50: WBC 6.70, Hgb 11.4 L, Hct 34.6 L, Plt Count 445 H 02/22/23 05:50: Sodium 131 L, Potassium 3.9, BUN 10, Creatinine 0.86, Glucose 129 H, Total Bilirubin 0.3, AST 16, ALT 28, Alkaline Phosphatase 106 Assessment and Plan - Plan --Chest pain. To rule out ACS. Will trend troponin serial troponins. Cardiology consulted. Echocardiogram pending to assess cardiac structures and functions. Telemetry to monitor for any significant anemia. We will await further recommendation from severity of illness coordinator. --Anxiety disorder\depression. Continue home medications. --Hypertension. Poorly controlled. Continue home medications and hydralazine as needed. -- Chronic back pain\osteoarthritis. We will manage pain with current pain medication regimen. --GERD. Continue home medication. --Hyperlipidemia. Continue statin. --Hypothyroidism. Continue Synthroid. --Microcytic anemia. Iron studies pending. We will continue to monitor H&H and transfuse if less than 7.0. --CKD 2. Stable. We will continue to monitor renal functions. --DVT prophylaxis with Lovenox subQ. Discharge Plan: Home Plan to discharge in: 48 Hours - Advance Directives Does patient have a Living Will: No Does patient have a Durable POA for Healthcare: No - Code Status/Comfort Care Code Status Assessed: Yes Physician Review: Patient Assessed, Agree with Above Assessment and Plan Critical Care: No
[2023-02-22 10:42] LABS: Ferritin 11.2 ng/mL (8-388)
[2023-02-22 11:31] VITALS: BMI 32.1
[2023-02-22] MEDS: HYDROCODONE/APAP 10/325 TAB PO PRN ×2 (11:35→20:10)
--- NOTE | 2023-02-22 11:42 | EKG ---
Test Date: 2023-02-22 Test Time: 05:24:47 Cloud Developer: ANNETTE MEASUREMENT RESULTS: Intervals: Rate: 59 OR: 162 QRSD: 92 QT: 442 QTc: 437 [place]: P: 29 OR: 162 QRS: 9 T: 38 INTERPRETIVE STATEMENTS: Sinus bradycardia Otherwise normal ECG Compared to ECG 01/08/2022 10:13:42 Sinus rhythm no longer present T-wave abnormality no longer present Prolonged QT interval no longer present Electronically Signed On 02-22-23 11:41:16 CDT by Brenden Hernandez
[2023-02-22 13:15] LABS: Magnesium 2.3 mg/dL (1.6-2.4); Phosphorus 3.8 mg/dL (2.5-4.9); Thyroid Stimulating Hormone 1.36 uIU/mL (0.358-3.740)
[2023-02-22 13:28] LABS: Specific Gravity 1.029 (1.005-1.030); Urine Bacteria <20 /HPF (<20); Urine Bilirubin NEGATIVE (Negative); Urine Blood Negative (Negative); Urine Clarity Clear (Clear); Urine Color Colorless (Yellow); Urine Glucose NEGATIVE (Negative); Urine Protein NEGATIVE (Negative); Urine RBC <5 /HPF (None Seen); Urine Urobilinogen Normal (Normal)
[2023-02-22] MEDS ORDERED: POTASSIUM CL SA 10 MEQ TAB PO ONE (16:30)
[2023-02-22] MEDS: OXYCODONE HCL 5 MG TAB PO PRN (16:44)
[2023-02-22] MEDS ORDERED: FELODIPINE 5 MG TAB PO SCH (21:00)
[2023-02-22] MEDS ORDERED: ATORVASTATIN 40 MG TAB PO SCH (21:00)
[2023-02-22] MEDS ORDERED: ARIPiprazole 5 MG TAB PO SCH (21:00)
--- NOTE | 2023-02-22 23:03 | CON ---
Date of Consultation: 02/22/2023 Reason For Consultation: Chest pain. History Of Present Illness: The patient is 57; has a history of anxiety, depression, gastroesophagea l reflux disease, hypertension, and hypothyroidism. Came in with 2 days' worth of chest pain, subste rnal, pressure-like, nonradiating, nonexertional. No nausea, vomiting, diaphoresis, PND, orthopnea, pedal edema, palpitation, or syncope. No fever or chills. Allergies: NONE. Review of Systems: Negative. Social History: Negative. Family History: Noncontributory. Medications: At home include metoprolol, Crestor, Wellbutrin, Prilosec, Abilify, Lexapro, Plendil, S ynthroid, and Cytomel. Physical Examination: Not done by me. Physical examination by the emergency room and Dr. Cruz was unremarkable. Vital Signs: Stable. She is afebrile. Cardiac: She has sinus rhythm. Diagnostic Data: Unremarkable except for some mild cardiomegaly by x-ray. Impression And Plan: 1.Atypical chest pain, most likely gastroesophageal reflux disease. 2.Multiple risk factors including hypertension and dyslipidemia. The patient has some cardiomegaly on the x-ray. I do not think we are dealing with congestive heart failure. She may have some left v entricular hypertrophy. Nevertheless, I think that socially it would be reasonable to do an echocard iogram and Lexiscan. Case was discussed with Dr. Cruz and the patient. I will continue to follow h er after the testing. MAHAMED/SITA Voice ID: [id number] Report ID: [id number]
[2023-02-23] MEDS: OXYCODONE HCL 5 MG TAB PO PRN ×3 (00:19→16:27)
[2023-02-23 03:40] LABS: Absolute Lymphocytes (CBC) 1.7 K/uL (0.7-4.9); Lymphocytes % 23.5 % (15.3-44.8); MPV 6.6 fL (7.6-11.3); RBC Red Blood Cell Count 4.25 M/uL (3.86-4.86)
[2023-02-23 04:03] LABS: Potassium 4.3 mEq/L (3.5-5.1)
[2023-02-23] MEDS ORDERED: LEVOTHYROXINE SOD 0.088 MG TAB PO SCH (06:00)
[2023-02-23] MEDS ORDERED: REGADENOSON 0.4 MG/5 ML SYR IV ONE (07:17)
[2023-02-23 07:50] VITALS: O2SAT 94
[2023-02-23] MEDS ORDERED: ROSUVASTATIN 10 MG TAB PO SCH (09:00)
[2023-02-23] MEDS ORDERED: PANTOPRAZOLE 40MG TABLET PO SCH (09:00)
[2023-02-23] MEDS ORDERED: ASPIRIN 81 MG CHEWABLE TABLET PO SCH (09:00)
[2023-02-23] MEDS ORDERED: METOPROLOL XL 100 MG TAB PO SCH (09:00)
[2023-02-23] MEDS ORDERED: ENOXAPARIN 40 MG/0.4 ML SQ SCH (09:00)
[2023-02-23] MEDS ORDERED: BUPROPION HCL 450 MG PO SCH (09:00)
[2023-02-23] MEDS ORDERED: HOME MED 1 EA UNK (Omeprazole [Omeprazole] 20 MG Tablet.Dr) PO SCH (09:00)
[2023-02-23] MEDS ORDERED: ESCITALOPRAM 20 MG TAB PO SCH (09:00)
--- NOTE | 2023-02-23 11:35 | RAD REPORT ---
EXAM DESCRIPTION: NM - Rest Stress Cardiac Imaging - 02/23/2023 9:47 am CLINICAL HISTORY: CP Chest pain. COMPARISON: No comparisons TECHNIQUE: The patient was administered approximately 10.6 mCi of Tc 99m Sestamibi prior to resting SPECT imaging of the heart. The patient was then administered approximately 29.8 mCi of Tc 99m Sestam ibi following exercise or pharmacologic stress. Multiplanar SPECT images were reviewed. FINDINGS: No stress induced ischemic defect is seen to suggest stress induced ischemia. Small fixed defect involving the anterior wall mid segment and extending into the adjacent anterior and lateral w all apical segments. The end diastolic volume is 89 ml, the end systolic volume is 37 ml, and the ejection fraction is 59 %. IMPRESSION: No evidence of stress-induced myocardial ischemia. Small fixed defect involving the anterior wall mid segment, extending into the adjacent anterior and lateral wall apical segments, suggesting a small infarct. Left ventricular ejection fraction is within normal limits, 59%.
--- NOTE | 2023-02-23 15:03 | RAD REPORT ---
EXAM DESCRIPTION: RAD - Chest Single View - 02/22/2023 5:35 am CLINICAL HISTORY: 57 years Female CHEST PAIN COMPARISON: None FINDINGS: Lung volumes adequate. Cardiac silhouette is mildly enlarged. No pneumothorax. No large pleural effusion. No focal consolidation. No acute bony finding. IMPRESSION: 1. No focal consolidation. 2. Mildly enlarged cardiac silhouette. Electronically signed by: Delmis Herrera MD 02/22/2023 5:47 AM CDT Due to temporary technical issues with the PACS/[employer] reporting system, reports are being signed by the in house radiologist without review as a courtesy to ensure prompt reporting. The interpreting r adiologist is fully responsible for the content of the report.
[2023-02-23 16:30] VITALS: BP 160/81; TEMP 97.8
--- NOTE | 2023-02-23 16:59 | P.DS ---
Admission Date: 02/22/23 Discharge Date: 02/23/23 Disposition: ROUTINE DISCHARGE Discharge Condition: FAIR Reason for Admission: Chest pain Consultations: Cardiology-Dr. Hernandez - Problems (1) Chest pain Current Visit: Yes Status: Acute (2) Coronary artery disease Current Visit: Yes Status: Acute (3) Hypertension Onset Date: 06/11/17 Current Visit: No Status: Chronic Qualifiers: Hypertension type: essential hypertension Qualified Code(s): I10 - Essential (primary) hypertension (4) Hypothyroidism Onset Date: 06/11/17 Current Visit: No Status: Chronic Qualifiers: Hypothyroidism type: postoperative Qualified Code(s): E89.0 - Postprocedural hypothyroidism (5) Hyperlipidemia Current Visit: Yes Status: Acute Brief History of Present Illness: Patient is a 57-year-old female with a past medical history significant for anxiety disorder, chronic back pain, depression, GERD, hypertension, hypothyroidism who presents with complaint of chest pain located in the left chest of 2 days duration. Patient indicated that chest pain is located in the left chest wall, rated pain as 8/10 in severity and described pain as sharp in quality.. Patient indicated that chest pain has been constant. Patient reported associated signs and symptoms of fatigue, weakness and palpitations. Initial troponin in the ED was negative, EKG shows sinus bradycardia, no ischemic changes. Patient hospitalized for ACS rule out. Hospital Course: Patient placed under observation on the medical floor. Troponin trended negative. Patient was seen and evaluated by cardiology who recommended stress test due to her multiple risk factors. Nuclear stress test showed small anterior fixed defect. No further intervention per cardiology. ACS ruled out and patient is deemed clinically stable for discharge. Vital Signs/Physical Exam: Temp Pulse Resp BP Pulse Ox 97.8 F 60 16 160/81 H 97 02/23/23 16:00 02/23/23 16:00 02/23/23 16:27 02/23/23 16:00 02/23/23 16:27 General: Alert, In no apparent distress, Oriented x3 HEENT: Mucous membr. moist/pink Neck: JVD not distended Respiratory: Clear to auscultation bilaterally, Normal air movement Cardiovascular: No edema, Regular rate/rhythm, Normal S1 S2 Gastrointestinal: Soft and benign, Non-distended Musculoskeletal: No swelling Integumentary: No rashes Neurological: Normal strength at 5/5 x4 extr Laboratory Data at Discharge: WBC 7.30 thou/uL (4.3-10.9) 02/23/23 02:30 Hgb 11.4 g/dL (12.0-15.0) L 02/23/23 02:30 Hct 34.0 % (36.0-45.0) L 02/23/23 02:30 Plt Count 414 thou/uL (152-406) H 02/23/23 02:30 PT 9.3 SECONDS (9.5-12.5) L 02/22/23 05:50 INR 0.85 02/22/23 05:50 Sodium 132 mEq/L (136-145) L 02/23/23 02:30 Potassium 4.3 mEq/L (3.5-5.1) 02/23/23 02:30 BUN 15 mg/dL (7-18) 02/23/23 02:30 Creatinine 0.81 mg/dL (0.55-1.02) 02/23/23 02:30 Glucose 98 mg/dL (74-106) 02/23/23 02:30 Phosphorus 3.8 mg/dL (2.5-4.9) 02/22/23 12:29 Magnesium 2.3 mg/dL (1.6-2.4) 02/22/23 12:29 Total Bilirubin 0.3 mg/dL (0.2-1.0) 02/22/23 05:50 AST 16 U/L (15-37) 02/22/23 05:50 ALT 28 U/L (13-56) 02/22/23 05:50 Alkaline Phosphatase 106 U/L (45-117) 02/22/23 05:50 Triglycerides 205 mg/dL (<150) H 02/23/23 02:30 Cholesterol 178 mg/dL (<200) 02/23/23 02:30 HDL Cholesterol 45 mg/dL (40-60) 02/23/23 02:30 Cholesterol/HDL Ratio 3.96 02/23/23 02:30 Home Medications: Levothyroxine [Synthroid*] 88 mcg PO [id number] 06/09/17 ARIPiprazole [Abilify] 5 mg PO BEDTIME 11/21/21 Escitalopram [Lexapro*] 30 mg PO DAILY 11/21/21 Felodipine [Plendil] 5 mg PO BEDTIME 11/21/21 Liothyronine [Cytomel*] 5 mcg PO BID 11/21/21 Metoprolol Succinate 100 mg PO DAILY 11/21/21 Omeprazole 20 mg PO DAILY 11/21/21 Rosuvastatin [Crestor*] 10 mg PO DAILY 11/21/21 buPROPion HCL [Forfivo Xl] 450 mg PO DAILY 11/21/21 Aspirin Chewable [Aspirin Chewable*] 81 mg PO DAILY #30 tab.chew 02/23/23 New Medications: Aspirin Chewable [Aspirin Chewable*] 81 mg PO DAILY #30 tab.chew Diet: AHA Activity: Ad william Followup: Brenden Hernandez MD [ACTIVE - CAN ADMIT] - (Within 2 to 4 weeks) NONE,NONE [Primary Care Provider] - Time spent managing pt's care (in minutes): 33
--- NOTE | 2023-02-23 17:56 | PN ---
Ms. Toscano had came in with chest pain, admitted to Dr. Pedersen. Echocardiogram is done was normal. Stress test showed a small apical defect, no ischemia. This may be secondary to attenuation ___ in next 2 weeks. Case was discussed with Dr. Pedersen. MAHAMED/SITA Voice ID: [id number] Report ID: [id number]
[2023-02-23] MEDS ORDERED: LIOTHYRONINE SOD 5 MCG TAB PO SCH (21:00)
--- NOTE | 2023-02-24 07:45 | ECHO ---
HEIGHT: 5 ft 4 in WEIGHT: 187 lb 0 oz DATE OF STUDY: 02/23/[address]: Venkata Cardona 2-DIMENSIONAL: YES M.MODE: YES DOPPLER: YES COLOR FLOW: YES TDS: NO PORTABLE: YES DEFINITY: NO BUBBLE STUDY: NO DIAGNOSIS: CHESET PAIN CARDIAC HISTORY: CATHERIZATION: SURGERY: PROSTHETIC VALVE: PACEMAKER: MEASUREMENTS (cm) DIASTOLIC (NORMALS) SYSTOLIC (NORMALS) IVSd 1.0 (0.6-1.2) LA Diam 4.5 (1.9-4.0) LVEF 66% LVIDd 4.6 (3.5-5.7) LVIDs 2.9 (2.0-3.5) %FS 36% LVPWd 0.9 (0.6-1.2) Ao Diam 3.0 (2.0-3.7) 2 DIMENSIONAL ASSESSMENT: RIGHT ATRIUM: NORMAL LEFT ATRIUM: ENLARGED RIGHT VENTRICLE: NORMAL LEFT VENTRICLE: NORMAL TRICUSPID VALVE: MILD TRICUSPID REGURGITATION MITRAL VALVE: MILD MITRAL REGURGITATION PULMONIC VALVE: MILD PULMONIC INSUFFICIENCY AORTIC VALVE: NORMAL PERICARDIAL EFFUSION: TRACE AORTIC ROOT: NORMAL LEFT VENTRICULAR WALL MOTION: NORMAL. DOPPLER/COLOR FLOW: SEE BELOW. COMMENTS: NORMAL LEFT VENTRICULAR EJECTION FRACTION 60-65% NORMAL WALL MOTION LEFT ATRIAL ENLARGEMENT MILD (TRICUSPID REGURGITATION, PULMONIC INSUFFICIENCY, MITRAL REGURGITATION) TECHNOLOGIST: OLIVIA CHAVEZ
--- NOTE | 2023-02-24 07:55 | TREADPHA ---
DX: CHEST PAIN Date of Study: 02/23/23 Ht: 5' 4 " Wt: 187 lb 0 oz Consulting Physician: SHELLI MEDICATIONS: LEXAPRO, PLENDIL, ABILIFY, FORFIVO, CRESTOR, SYNTHROID, METOPROLOL, HISTORY: 57 YEAR OLD FEMALE WITH COMPLAINTS OF CHEST PAIN. HISTORY: HYPERTENSION, ALCOHOL ABUSE, HYPOTHYROIDISM, ARTHRITIS, PHYSICIAL EXAMINATION: RESTING B.P.: 153/76 RESTING H.R.: 55 RESTING EKG: NORMAL SINUS RHYTHM PROTOCOL: LEXISCAN EXERCISE TIME: 3:30 B.P. AT [place] STRESS: 142/74 IMPRESSION: LEXISCAN INJECTED FOLLOWED BY CARDIOLITE FOLLOWED BY CARDIOLITE PER PROTOCOL, SEE NUCLEAR MEDICINE REPORT. NO SUPRA VENTRICULAR TACHYCARDIA, VENTRICULAR TACHYCARDIA, PREMATURE VENTRICULAR COMPLEXES. PATIENT REPORTS CHEST PAIN 5/10 THROUGHOUT ENTIRE PROCEDURE. NO EKG CHANGES WITH LEXISCAN
== END 2023-02-23 17:48 | disposition home or self-care (01) ==
LOC: ER 05:13 → ERHOLD 09:24 → 2ND 11:01
PROVIDERS: ADMIT Hospitalist; ATTEND Internal Medicine
DX: R07.9 Chest pain, unspecified (principal); F41.9 Anxiety disorder, unspecified; F32.A Depression, unspecified; K21.9 Gastro-esophageal reflux disease without esophagitis; I10 Essential (primary) hypertension; E03.9 Hypothyroidism, unspecified; M54.9 Dorsalgia, unspecified; D50.9 Iron deficiency anemia, unspecified; N18.2 Chronic kidney disease, stage 2 (mild); E78.5 Hyperlipidemia, unspecified; I51.7 Cardiomegaly; I25.10 Atherosclerotic heart disease of native coronary artery without angina pectoris
CPT/HCPCS: 36415; 71045; 71275; 78452; 80048; 80061; 80076; 81001; 82728; 83036; 83540; 83735; 83880; 84100; 84439; 84443; 84466; 84484; 85025; 85610; 93005; 93017; 93306; 94760; 96374; 96375; 99285; A9500; G0378; J1650; J2405; J2785; J7030; Q9967

== ENCOUNTER 2025-01-03 02:01 | Emergency (ER) | payer MEDICARE ==
[2025-01-03] MEDS ORDERED: IBUPROFEN 400 MG TAB ONE (03:05)
[2025-01-03] MEDS ORDERED: methocarbamoL 500 MG TAB ONE (05:14)
[2025-01-03] MEDS ORDERED: TRAMADOL HCL 50 MG TAB ONE (05:15)
--- NOTE | 2025-01-03 06:27 | RAD REPORT ---
EXAM: CT Chest, Abdomen and Pelvis Without Intravenous Contrast CLINICAL HISTORY: The patient is 59 years old and is Female; Chest contusion. TECHNIQUE: Axial computed tomography images of the chest, abdomen and pelvis without intravenous co ntrast. Sagittal and coronal reformatted images were created and reviewed. This CT exam was performed using one or more of the following dose reduction techniques: automated exposure control, adjustment of the mA and/or kV according to patient size, and/or use of iterative reconstruction technique. COMPARISON: CTA Chest 02/22/[address] Abdomen pelvis 06/11/2017. FINDINGS: CHEST: Lungs: Unremarkable. No mass. No consolidation or ground glass opacities. Pleural space: No pleural effusion or pneumothorax. Heart: Unremarkable. No cardiomegaly. No significant pericardial effusion. N. ABDOMEN: Liver: Multiple hepatic cysts, largest measuring 4.0 cm. Hyperdense liver parenchyma. Gallbladder and bile ducts: Unremarkable. No calcified stones. No ductal dilation. Pancreas: Unremarkable. No ductal dilation. Spleen: Unremarkable. No splenomegaly. Adrenals: Unremarkable. No mass. Kidneys and ureters: Left nephrolithiasis. The kidneys are otherwise unremarkable. No hydronephrosis or ureter stone. Stomach and bowel: Unremarkable. No obstruction. No mucosal thickening. PELVIS: Appendix: No findings to suggest acute appendicitis. Bladder: Unremarkable. No stones. Reproductive: Unremarkable as visualized. CHEST, ABDOMEN and PELVIS: Intraperitoneal space: No perihepatic free fluid. No free air. Bones/joints: Nondisplaced left lateral 7th rib fracture. No vertebral compression fracture. Lumbar scoliosis. Mild scoliosis. Bilateral total hip arthroplasty hardware. Old fracture in the right inferior pubic ramus. No hip dislocation. Soft tissues: Unremarkable. Vasculature: Unremarkable. No aortic aneurysm. Lymph nodes: Unremarkable. No enlarged lymph nodes. IMPRESSION: 1. Nondisplaced left lateral 7th rib fracture. 2. No findings to suggest acute intra-abdominal injury. Study performed without IV contrast. 3. Left nephrolithiasis. 4. Additional non-emergent findings as above. Electronically signed by: Natalia Ireland MD 01/03/2025 06:23 AM CDT V2 Due to temporary technical issues with the PACS/[employer] reporting system, reports are being ezequiel d by the in-house radiologist without review as a courtesy to ensure prompt reporting the interpreting radiologist is fully responsible for the content of the report. Transcribed Date/Time: 01/03/2025 6:27 AM
--- NOTE | 2025-01-03 06:43 | EDPHYS ---
Physician Documentation [facility] Name: Lizbet Solares Age: 59 yrs Sex: Female : 1965 Arrival Date: 01/03/2025 Time: 02:01 Bed 20 Private MD: ED Physician Jcarlos Garcia HPI: 01/03 02:37 This 59 yrs old Female presents to ER via Unassigned with complaints of Fall sp4 Injury, Breathing Difficulty, Chest Wall Pain. 06:36 Very pleasant 59-year-old female presents with left lower chest pain after a fall sp4 against the commode in her hotel room.. Historical: - Allergies: 03:28 No Known Allergies; br2 - Home Meds: 04:02 Metoprolol Tartrate Oral [Active]; Omeprazole Oral [Active]; Oxycodone HCl Oral aa10 [Active]; OxyContin 10 mg Oral TR12 2 tabs TID [Active]; Synthroid Oral [Active]; Toradol 10 mg Oral tab 1 tab every 4 hours [Active]; Wellbutrin Oral [Active]; - PMHx: 04:02 Anxiety; chronic back pain; Depression; GERD; Hypertension; Hypothyroidism; aa10 - PSHx: 04:02 bilateral heels; decompression of vertebrae; Left hip replacement; partial aa10 thyroidectomy; R hip replacement; - Immunization history:: Adult Immunizations up to date. - Infectious Disease History:: Denies. - Immunization history: Last tetanus immunization: - up to date. - Social history:: Smoking status: Patient/guardian denies using tobacco, Patient/guardian denies using alcohol, street drugs. - Family history:: not pertinent. ROS: 06:36 Constitutional: Negative for fever, chills, and weight loss, positive left lower sp4 chest pain 06:36 All other systems are negative, Exam: 06:36 Constitutional: This is a well developed, well nourished patient who is awake, alert, sp4 and in no acute distress. Head/Face: Normocephalic, atraumatic. Eyes: Pupils equal round and reactive to light, extra-ocular motions intact. Lids and lashes normal. Conjunctiva and sclera are not injected. Cornea within normal limits. Periorbital areas with no swelling, redness, or edema. ENT: Nares patent. No nasal discharge, no septal abnormalities noted. Tympanic membranes are normal and external auditory canals are clear. Oropharynx with no redness, swelling, or masses, exudates, or evidence of obstruction, uvula midline. Mucous membranes moist. Neck: Trachea midline, no thyromegaly or masses palpated, and no cervical lymphadenopathy. Supple, full range of motion without nuchal rigidity, or vertebral point tenderness. Chest/axilla: Normal chest wall appearance and motion. no deformity. No lesions are appreciated. Positive left chest wall deformity. Cardiovascular: Regular rate and rhythm with a normal S1 and S2. No gallops, murmurs, or rubs. Normal PMI, no JVD. No pulse deficits. Respiratory: Lungs have equal breath sounds bilaterally, clear to auscultation and percussion. No rales, rhonchi or wheezes noted. No increased work of breathing, no retractions or nasal flaring. Abdomen/GI: Soft, with normal bowel sounds. No distension or tympany. No guarding or rebound. No evidence of tenderness throughout. Back: No spinal tenderness. No costovertebral tenderness. Skin: Warm, dry with normal turgor. Normal color with no rashes, no lesions, and no evidence of cellulitis. MS/ Extremity: Pulses equal, no cyanosis. Neurovascular intact. Full, normal range of motion. Neuro: Awake and alert, GCS 15, oriented to person, place, time, and situation. Cranial nerves II-XII grossly intact. Motor strength 5/5 in all extremities. Sensory grossly intact. Psych: Awake, alert, with orientation to person, place and time. Behavior, mood, and affect are within normal limits 21:58 ECG was reviewed by the Attending Physician. EKG at 0 251 this is normal sinus rhythm sp4 rate 68. Vital Signs: 03:05 BP 127 / 81; Pulse 67; Resp 22; Temp 97.9; Pulse Ox 99% on R/A; Weight 70.31 kg; Height br2 5 ft. 4 in. ; Pain 8/10; 07:09 BP 120 / 80; Pulse 72; Resp 18; Pulse Ox 99% ; aa10 03:05 Body Mass Index 26.61 (70.31 kg, 162.56 cm) br2 03:05 Pain Scale: Adult br2 Aiyana Coma Score: 03:57 Eye Response: spontaneous(4). Motor Response: obeys commands(6). Verbal Response: aa10 oriented(5). Total: 15. 06:36 Eye Response: spontaneous(4). Motor Response: obeys commands(6). Verbal Response: sp4 oriented(5). Total: 15. Trauma Score (Adult): 03:57 Eye Response: spontaneous(1); Verbal Response: oriented(1); Motor Response: obeys aa10 commands(2); Systolic BP: > 89 mm Hg(4); Respiratory Rate: 10 to 29 per min(4); [place] Score: 15; Trauma Score: 12 MDM: 02:43 Medical Screening Exam initiated sp4 06:32 ED course: EXAM: CT Chest, Abdomen and Pelvis Without Intravenous Contrast CLINICAL sp4 HISTORY: The patient is 59 years old and is Female; Chest contusion. TECHNIQUE: Axial computed tomography images of the chest, abdomen and pelvis without intravenous contrast. Sagittal and coronal reformatted images were created and reviewed. This CT exam was performed using one or more of the following dose reduction techniques: automated exposure control, adjustment of the mA and/or kV according to patient size, and/or use of iterative reconstruction technique. COMPARISON: CTA Chest 02/22/2023 and CTAbdomen pelvis 06/11/2017. FINDINGS: CHEST: Lungs: Unremarkable. No mass. No consolidation or ground glass opacities. Pleural space: No pleural effusion or pneumothorax. Heart: Unremarkable. No cardiomegaly. No significant pericardial effusion. N. ABDOMEN: Liver: Multiple hepatic cysts, largest measuring 4.0 cm. Hyperdense liver parenchyma. Gallbladder and bile ducts: Unremarkable. No calcified stones. No ductal dilation. Pancreas: Unremarkable. No ductal dilation. Spleen: Unremarkable. No splenomegaly. Adrenals: Unremarkable. No mass. Kidneys and ureters: Left nephrolithiasis. The kidneys are otherwise unremarkable. No hydronephrosis or ureter stone. Stomach and bowel: Unremarkable. No obstruction. No mucosal thickening. PELVIS: Appendix: No findings to suggest acute appendicitis. Bladder: Unremarkable. No stones. Reproductive: Unremarkable as visualized. CHEST, ABDOMEN and PELVIS: Intraperitoneal space: No perihepatic free fluid. No free air. Bones/joints: Nondisplaced left lateral 7th rib fracture. No vertebral compression fracture. Lumbar scoliosis. Mild scoliosis. Bilateral total hip arthroplasty hardware. Old fracture in the right inferior pubic ramus. No hip dislocation. Soft tissues: Unremarkable. Vasculature: Unremarkable. No aortic aneurysm. Lymph nodes: Unremarkable. No enlarged lymph nodes. IMPRESSION: 1. Nondisplaced left lateral 7th rib fracture. 2. No findings to suggest acute intra-abdominal injury. Study performed without IV contrast. 3. Left nephrolithiasis. 4. Additional non-emergent findings as above. Electronically signed by: Natalia Ireland MD 01/03/2025 06:23 AM. 06:36 Differential diagnosis: abrasion, closed head injury, sprain, strain. Data reviewed: sp4 vital signs, nurses notes, radiologic studies, CT scan. Consideration of Admission/Observation Escalation of care including admission/observation considered. ED course: Patient has left lateral seventh rib fracture. Will prescribe as needed tramadol and Robaxin. Stable for discharge. 01/03 02:43 Order name: CT Chest Abdomen Pelvis W/O Contrast sp4 EC:51 Rate is 68 beats/min. Rhythm is regular, Normal Sinus Rhythm. QRS [place] is Normal. MA sp4 interval is normal. QRS interval is normal. QT interval is normal. No Q waves. T waves are Normal. No ST changes noted. Clinical impression: No evidence of ischemia. Interpreted by me. Reviewed by me. Administered Medications: 03:08 Drug: Ibuprofen PO 800 mg PO once Route: PO; aa10 04:16 Follow up: Response: No adverse reaction; Marked relief of symptoms aa10 05:22 Drug: Methocarbamol PO 1500 mg PO once Route: PO; aa10 07:10 Follow up: Response: No adverse reaction; Marked relief of symptoms aa10 05:23 Drug: traMADol PO 100 mg PO once Route: PO; aa10 07:11 Follow up: Response: No adverse reaction; Marked relief of symptoms aa10 Disposition Summary: 01/03/25 06:42 Discharge Ordered Notes: Location: Home sp4 Problem: new sp4 Symptoms: have improved sp4 Condition: Stable sp4 Diagnosis - Acute left lateral seventh rib fracture, nondisplaced single rib fracture sp4 Followup: sp4 - With: Private Physician - When: 7 - 10 days - Reason: Recheck today's complaints Discharge Instructions: - Discharge Summary Sheet sp4 - Rib Fracture, [id number] sp4 Forms: - Patient Portal Instructions sp4 Prescriptions: - Ibuprofen 800 mg Oral Tablet - take 1 tablet ORAL route every 8 hours As needed take with food; 30 tablet; sp4 Refills: 0, Product Selection Permitted - Tramadol 50 mg Oral tablet - take 1 tablet ORAL route every 8 hours as needed; 20 tablet; Refills: 0, sp4 Product Selection Permitted - methocarbamol 750 mg Oral tablet - take 1 tablet ORAL route 4 times per day for 3 days PRN pain; 60 tablet; sp4 Refills: 0, Product Selection Permitted Signatures: Dispatcher [employer] Jcarlos Campoverde MD MD sp4 Polly Mccloud, RN RN br2 Waqas Mejias RN RN aa10
--- NOTE | 2025-01-03 06:43 | ER ---
Nurse's Notes [facility] Name: Lizbet Solares Age: 59 yrs Sex: Female : 1965 Arrival Date: 01/03/2025 Time: 02:01 Bed 20 Private MD: Diagnosis: Acute left lateral seventh rib fracture, nondisplaced single rib fracture Presentation: 01/03 03:05 Chief complaint:. Chief complaint: Patient states: S/P FALL...C/O LEFT CHEST WALL PAIN. br2 Coronavirus screen: Client denies travel out of the [place] in the last 14 days. Ebola Screen: Patient denies exposure to infectious person. Initial Sepsis Screen: Does the patient meet any 2 criteria? No. Patient's initial sepsis screen is negative. Does the patient have a suspected source of infection? No. Patient's initial sepsis screen is negative. Risk Assessment: Do you want to hurt yourself or someone else? Patient reports no desire to harm self or others. Onset of symptoms is unknown. 03:05 Method Of Arrival: Ambulatory br2 03:05 Acuity: NAFISA 3 br2 04:00 Care prior to arrival: None. Mechanism of Injury: Fall from standing position. Trauma aa10 event details: Injury occurred in the [facility], Injury occurred: at home. Injury occurred: January 03, 2025. Triage Assessment: 03:28 General: Appears in no apparent distress. comfortable, Behavior is calm, cooperative. br2 Pain: Denies pain. Trauma Activation: Physician: ED Physician; Name: anila; Notified At: ; Arrived At: Physician: General Surgeon; Name: ; Notified At: ; Arrived At: Physician: Radiology; Name: ; Notified At: ; Arrived At: Physician: Respiratory; Name: ; Notified At: ; Arrived At: Physician: Lab; Name: ; Notified At: ; Arrived At: Historical: - Allergies: 03:28 No Known Allergies; br2 - Home Meds: 04:02 Metoprolol Tartrate Oral [Active]; Omeprazole Oral [Active]; Oxycodone HCl Oral aa10 [Active]; OxyContin 10 mg Oral TR12 2 tabs TID [Active]; Synthroid Oral [Active]; Toradol 10 mg Oral tab 1 tab every 4 hours [Active]; Wellbutrin Oral [Active]; - PMHx: 04:02 Anxiety; chronic back pain; Depression; GERD; Hypertension; Hypothyroidism; aa10 - PSHx: 04:02 bilateral heels; decompression of vertebrae; Left hip replacement; partial aa10 thyroidectomy; R hip replacement; - Immunization history:: Adult Immunizations up to date. - Infectious Disease History:: Denies. - Immunization history: Last tetanus immunization: - up to date. - Social history:: Smoking status: Patient/guardian denies using tobacco, Patient/guardian denies using alcohol, street drugs. - Family history:: not pertinent. Screenin:59 Abuse screen: Denies threats or abuse. Denies injuries from another. Tuberculosis aa10 screening: No symptoms or risk factors identified. 04:01 [facility] ED Fall Risk Assessment (Adult) History of falling in the last 3 months, aa10 including since admission Yes- single mechanical fall (1 pt) Confusion or Disorientation No (0 pts) Intoxicated or Sedated No (0 pts) Impaired Gait No (0 pts) Mobility Assist Device Used No (0 pt) Altered Elimination No (0 pt) Score/Fall Risk Level 3 or more points = High Risk Oriented to surroundings, Maintained a safe environment, Educated pt \T\ family on fall prevention, incl call for assistance when getting out of bed, Assessed \T\ reinforced patient's understanding of fall precautions, Provided non-skid footwear, Hourly rounding (assess needs \T\ fall precautionary measures) done. Nutritional screening: No deficits noted. Primary Survey: 03:55 NO uncontrolled hemorrhage observed. A: The client is awake and alert. The airway is aa10 patent. The client is alert. Airway: patent, No supplemental oxygen in use on arrival. Breathing/Chest: Spontaneous respiratory effort, equal unlabored respirations, breath sounds clear bilaterally, regular pattern, symmetrical chest rise and fall. Respiratory effort: spontaneous, Breath sounds: clear, bilaterally. Respiratory pattern: regular, Chest inspection: symmetrical rise and fall of the chest. Circulation: No external hemorrhage present. Regular and strong central pulse, skin warm/dry/normal color. Pulses: palpable right radial artery, right brachial artery, right femoral artery, right popliteal artery, right posterior tibial artery, left radial artery, left brachial artery, left femoral artery, left popliteal artery, bilateral radial, brachial, femoral, popliteal, posterior tibial, and dorsalis pedis arteries., left carotid pulse and right carotid pulse. Skin color: pink, Skin temperature: warm, dry, Cardiac rhythm: sinus rhythm. Disability Pupils are equal, round, reactive to light and accommodation. Client is alert. Exposure/Environment: All clothing and personal items were removed. Forensic evidence collection is not deemed to be indicated at this time. Items placed in patient belonging bag. There is no evidence of uncontrolled external bleeding. No obvious injuries are noted at this time. A warming method has been applied: A warm blanket has been provided to the patient. Reassessment Breathing: Spontaneous respiratory effort, equal unlabored respirations, breath sounds clear bilaterally, regular pattern with symmetrical chest rise and fall. Respiratory effort Spontaneous Breath sounds Clear Respiratory pattern Regular Chest inspection Symmetrical Circulation: No external hemorrhage noted. Regular and strong central pulse, skin warm/dry/normal color. Heart rhythm Sinus rhythm Disability: Pupils Pupils are equal, round, reactive to light and accomodation. Secondary Survey: 03:56 HEENT: No deficits noted. Head No injury/deformity Face No injury/deformity Eyes: No aa10 injury or deformity noted. to bilateral eyes. Ears: clear bilaterally. Nose: clear to bilateral nares. Throat: No injury or deformity noted. is clear with gag reflex present. Gastrointestinal: No deficits noted. Abdomen is soft, non-distended, Bowel sounds present in all quadrants. Palpation No deficit noted Patient is continent of stool. : No deficits noted. Urine is clear. Musculoskeletal: No deficits noted. Circulation, motion, and sensation intact. Capillary refill < 3 seconds. Assessment: 03:50 General: Appears comfortable, well groomed, well developed, Behavior is calm, aa10 cooperative, appropriate for age. Pain: Complains of pain in abdomen Pain does not radiate. Pain currently is 7 out of 10 on a pain scale. Quality of pain is described as aching, Pain began suddenly, Is continuous, Alleviated by medications, rest, Aggravated by exercise, increased activity, Noted to be guarding, Also complains of shortness of breath. Neuro: No deficits noted. Level of Consciousness is awake, alert, obeys commands, Oriented to person, place, time, situation, Appropriate for age [employer] are equal bilaterally Moves all extremities. Gait is steady, Speech is normal, Facial symmetry appears normal, Pupils are PERRLA, Intact. EENT: No deficits noted. Tympanic membrane clear on right ear and left ear Ear canal clear on right ear and left ear Sclera/Cornea are clear in outer aspect of conjuctiva of right eye, iris of right eye, inner aspect of conjuctiva of right eye, left outer canthus, outer aspect of conjuctiva of left eye, iris of left eye and inner aspect of conjunctiva of left eye Nares are clear. Cardiovascular: No deficits noted. Capillary refill < 3 seconds. Respiratory: No deficits noted. Airway is patent. GI: No deficits noted. Abdomen is non-distended. Musculoskeletal: Circulation, motion, and sensation intact. Capillary refill < 3 seconds, Range of motion: intact in all extremities. Injury Description: had a ground level fall in a slippery bathroom, patient stated she hit the upper left abdominal area on the toilet sit, and rates her pain a 7/10. Vital Signs: 03:05 BP 127 / 81; Pulse 67; Resp 22; Temp 97.9; Pulse Ox 99% on R/A; Weight 70.31 kg; Height br2 5 ft. 4 in. ; Pain 8/10; 07:09 BP 120 / 80; Pulse 72; Resp 18; Pulse Ox 99% ; aa10 03:05 Body Mass Index 26.61 (70.31 kg, 162.56 cm) br2 03:05 Pain Scale: Adult br2 Aiyana Coma Score: 03:57 Eye Response: spontaneous(4). Motor Response: obeys commands(6). Verbal Response: aa10 oriented(5). Total: 15. 06:36 Eye Response: spontaneous(4). Motor Response: obeys commands(6). Verbal Response: sp4 oriented(5). Total: 15. Trauma Score (Adult): 03:57 Eye Response: spontaneous(1); Verbal Response: oriented(1); Motor Response: obeys aa10 commands(2); Systolic BP: > 89 mm Hg(4); Respiratory Rate: 10 to 29 per min(4); Aiyana Score: 15; Trauma Score: 12 ED Course: 02:06 Patient arrived in ED. [id number] 02:37 Jcarlos Garcia MD is Attending Physician. sp4 03:26 CT Chest Abdomen Pelvis W/O Contrast In Process Unspecified. EDMS 03:28 Triage completed. br2 03:59 Patient has correct armband on for positive identification. Allergy band placed. Fall aa10 risk band placed. Placed in gown. Bed in low position. Call light in reach. Side rails up X2. 03:59 Patient maintains SpO2 saturation greater than 95% on room air. aa10 04:01 Thermoregulation: warm blanket given to patient. aa10 04:01 No provider procedures requiring assistance completed. aa10 04:02 Provided Education on: about plan of care. aa10 04:02 Arm band placed on right wrist. aa10 07:02 IV discontinued. aa10 Administered Medications: 03:08 Drug: Ibuprofen PO 800 mg PO once Route: PO; aa10 04:16 Follow up: Response: No adverse reaction; Marked relief of symptoms aa10 05:22 Drug: Methocarbamol PO 1500 mg PO once Route: PO; aa10 07:10 Follow up: Response: No adverse reaction; Marked relief of symptoms aa10 05:23 Drug: traMADol PO 100 mg PO once Route: PO; aa10 07:11 Follow up: Response: No adverse reaction; Marked relief of symptoms aa10 Medication: 03:59 VIS not applicable for this client. aa10 Intake: 03:57 PO: 200ml (Water); IV: 0ml; Tubes: 0ml (); Total: 200ml. aa10 Output: 03:57 Urine: 200ml (Voided); Gastric: 0ml; Stool: 0; EBL: 0ml; Drainage: 0ml; Other: 0; aa10 Total: 200ml. Outcome: 04:04 Patient's length of stay was not longer than 2 hours. aa10 06:42 Discharge ordered by . sp4 07:02 Discharged to home ambulatory, aa10 07:02 Condition: good 07:02 Discharge instructions given to patient, 07:11 Patient left the ED. aa10 Signatures: Dispatcher [employer] EDMS Alexandria Bruno Sergey, MD MD sp4 Polly Mccloud RN RN br2 Waqas Mejias RN RN aa10
[2025-01-03 07:16] VITALS: TEMP 97.9; O2SAT 99
[2025-01-03 07:17] VITALS: BP 120/80
--- NOTE | 2025-01-04 08:39 | EKG ---
Test Date: 2025-01-03 Test Time: 02:51:08 Clothing Presser: DRAGAN MEASUREMENT RESULTS: Intervals: Rate: 68 [place]: 152 QRSD: 80 QT: 422 QTc: 448 [place]: P: 42 [place]: 152 QRS: 34 T: 69 INTERPRETIVE STATEMENTS: Normal sinus rhythm Low voltage QRS Borderline ECG Compared to ECG 02/22/2023 05:24:47 Low QRS voltage now present Sinus bradycardia no longer present Electronically Signed On 01-04-25 08:36:09 CDT by José Miguel Mcbride
== END 2025-01-03 07:11 | disposition home or self-care (01) ==
LOC: ER 02:01
DX: S22.32XA Fracture of one rib, left side, initial encounter for closed fracture (principal); W01.198A Fall on same level from slipping, tripping and stumbling with subsequent striking against other object, initial encounter
CPT/HCPCS: 71250; 74176; 93005

== ENCOUNTER 2025-03-03 19:19 | Emergency (ER) | payer MEDICARE ==
--- NOTE | 2025-03-03 21:08 | RAD REPORT ---
EXAMINATION: Hip Right 2 View VIEWS: Two views CLINICAL INDICATION: Female, 59 years old. PAIN RIGHT COMPARISON: 09/29/2022 IMPRESSION: Status post right hip arthroplasty. No hardware complications. No acute fracture.
[2025-03-03] MEDS ORDERED: HYDROCODONE/APAP 7.5/325 MG TAB ONE (21:11)
[2025-03-03] MEDS ORDERED: KETOROLAC 30 MG/ML INJ ONE (21:11)
--- NOTE | 2025-03-03 22:02 | ER ---
Nurse's Notes [facility] Name: Lizbet Carney Age: 59 yrs Sex: Female : 1965 Arrival Date: 03/03/2025 Time: 19:19 Bed 13 Private MD: Diagnosis: Pain in right hip;Cutaneous abscess of left lower limb Presentation: 03/03 19:32 Chief complaint: Patient states: HAS BEEN MOVING AND PACKING ADN BEGAN HAVING RT HIP dd2 PAIN. PT REPORTS DIFFICULTY WALKING AND STANDING. PT REPORTS HX OF RT HIP REVISION. Coronavirus screen: At this time, the client does not indicate any symptoms associated with coronavirus-19. Ebola Screen: No symptoms or risks identified at this time. Initial Sepsis Screen: Does the patient meet any 2 criteria? No. Patient's initial sepsis screen is negative. Does the patient have a suspected source of infection? No. Patient's initial sepsis screen is negative. Risk Assessment: Do you want to hurt yourself or someone else? Patient reports no desire to harm self or others. Onset of symptoms was March 01, 2025. 19:32 Method Of Arrival: Ambulatory dd2 19:32 Acuity: NAFISA 3 dd2 Triage Assessment: 19:34 General: Appears in no apparent distress. uncomfortable, Behavior is calm, cooperative, dd2 appropriate for age. Pain: Complains of pain in right hip Pain currently is 7 out of 10 on a pain scale. Historical: - Allergies: 19:34 No Known Allergies; dd2 - PMHx: 19:34 Anxiety; chronic back pain; Depression; GERD; Hypertension; Hypothyroidism; dd2 - PSHx: 19:34 bilateral heels; decompression of vertebrae; Left hip replacement; partial dd2 thyroidectomy; R hip replacement; - Immunization history:: Adult Immunizations up to date. - Infectious Disease History:: Denies. - Social history:: Smoking status: Patient denies any tobacco usage or history of. Screenin:00 [facility] ED Fall Risk Assessment (Adult) History of falling in the last 3 months, rg5 including since admission No falls in past 3 months (0 pts) Confusion or Disorientation No (0 pts) Intoxicated or Sedated No (0 pts) Impaired Gait No (0 pts) Mobility Assist Device Used No (0 pt) Altered Elimination No (0 pt) Score/Fall Risk Level 0 - 2 = Low Risk Oriented to surroundings, Maintained a safe environment, Hourly rounding (assess needs \T\ fall precautionary measures) done. Abuse screen: Denies threats or abuse. Nutritional screening: No deficits noted. Tuberculosis screening: No symptoms or risk factors identified. Assessment: 21:00 General: Appears in no apparent distress. Behavior is calm, cooperative, appropriate rg5 for age. 21:00 Pain: Complains of pain in hip. Neuro: Level of Consciousness is awake, alert, obeys rg5 commands. Cardiovascular: Patient's skin is warm and dry. Respiratory: Airway is patent Trachea midline Respiratory effort is even, unlabored, Respiratory pattern is regular, symmetrical. GI: Abdomen is round non-distended. : No signs and/or symptoms were reported regarding the genitourinary system. EENT: No signs and/or symptoms were reported regarding the EENT system. Derm: Skin is intact, Skin is dry, Skin is normal. Musculoskeletal: Circulation, motion, and sensation intact. Range of motion:. 22:00 Reassessment: Patient and/or family updated on plan of care and expected duration. Pain rg5 level reassessed. Patient is alert, oriented x 3, equal unlabored respirations, skin warm/dry/pink. Vital Signs: 19:32 BP 108 / 66; Pulse 57; Resp 16; Temp 98.1; Pulse Ox 98% on R/A; Weight 72.57 kg; Height dd2 5 ft. 4 in. ; Pain 7/10; 21:00 BP 117 / 83; Pulse 52; Resp 18; Pulse Ox 99% ; Pain 7/10; rg5 22:00 BP 108 / 70; Pulse 51; Resp 17; Pulse Ox 99% on R/A; Pain 2/10; rg5 19:32 Body Mass Index 27.46 (72.57 kg, 162.56 cm) dd2 19:32 Pain Scale: Adult dd2 21:00 Pain Scale: Adult rg5 22:00 Pain Scale: Adult rg5 ED Course: 19:22 Patient arrived in ED. im 19:22 [facility] sb[facility] 19:22 Jcarlos Garcia MD is Attending Physician. sb4 19:34 Triage completed. dd2 19:34 Arm band placed on right wrist. dd2 20:48 Steven Julien, RN is Primary Nurse. rg5 21:00 Patient has correct armband on for positive identification. Bed in low position. Call rg5 light in reach. Side rails up X 1. Door closed. Noise minimized. 21:00 No provider procedures requiring assistance completed. Patient did not have IV access rg5 during this emergency room visit. 21:02 Hip Right 2 View XRAY In Process Unspecified. EDMS 22:37 Provided Education on: post er care. rg5 Administered Medications: 21:17 Drug: Hydrocodone-Acetaminophen PO (7.5 mg-325 mg) 1 tabs PO once Route: PO; rg5 22:00 Follow up: Response: No adverse reaction; Pain is decreased rg5 21:17 Drug: Ketorolac IM 30 mg IM once Route: IM; Site: left deltoid; rg5 22:00 Follow up: Response: No adverse reaction; Pain is decreased rg5 Medication: 21:00 VIS not applicable for this client. rg5 Outcome: 22:02 Discharge ordered by . sb4 22:37 Discharged to home ambulatory, rg5 22:37 Condition: stable 22:37 Discharge instructions given to patient, Instructed on discharge instructions, follow rg5 up and referral plans. Demonstrated understanding of instructions, follow-up care, medications, Prescriptions given X 2, 22:37 Patient left the ED. rg5 Signatures: Dispatcher [employer] Tata Syed, JDOI ZAPATA sb4 Marian Erickson Rommel, RN RN rg5 CHIQUI BARKER RN RN dd2
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
[2025-03-03 23:06] VITALS: TEMP 98.1
[2025-03-03 23:08] VITALS: O2SAT 99
[2025-03-03 23:10] VITALS: BP 108/70
== END 2025-03-03 22:37 | disposition home or self-care (01) ==
LOC: ER 19:19
DX: M25.551 Pain in right hip (principal); L02.416 Cutaneous abscess of left lower limb; Z96.643 Presence of artificial hip joint, bilateral
CPT/HCPCS: 96372; 99284

== ENCOUNTER 2025-03-04 11:12 | Emergency (ER) | payer MEDICARE ==
[2025-03-04] MEDS ORDERED: dexAMETHasone 10 MG/ML VIAL ONE (15:16)
[2025-03-04] MEDS ORDERED: HYDROCODONE/APAP 5/325 MG TAB ONE (15:16)
--- NOTE | 2025-03-04 15:22 | EDPHYS ---
Physician Documentation [facility] Name: Lizbet Carney Age: 59 yrs Sex: Female : 1965 Arrival Date: 03/04/2025 Time: 11:12 Bed 9 Private MD: BARRETT Physician Ludwin Royal HPI: 03/04 17:33 This 59 yrs old Female presents to ER via Wheelchair with complaints of Hip dr5 Pain - RT. 17:33 The patient or guardian reports pain. dr5 17:34 Patient is a 59-year-old female with history of depression anxiety hypertension and dr5 hypothyroidism coming in with right hip pain that is mildly improved since yesterday. Patient states that she is moving and her pain is not improving. Patient denies any new trauma since yesterday.. Historical: - Allergies: 12:03 No Known Allergies; me1 - PMHx: 12:03 Anxiety; Depression; GERD; Hypertension; Hypothyroidism; me1 - PSHx: 12:04 bilateral heels; decompression of vertebrae; Left hip replacement; partial me1 thyroidectomy; R hip replacement; - Immunization history:: Adult Immunizations up to date. - Infectious Disease History:: Denies. - Social history:: Smoking status: Patient/guardian denies using tobacco, but has a distant history of tobacco abuse. ROS: 17:34 Constitutional: as per hpi dr5 Exam: 17:34 Constitutional: This is a well developed, well nourished patient who is awake, alert, dr5 and in no acute distress. Head/Face: Normocephalic, atraumatic. ENT: Nares patent. No nasal discharge, no septal abnormalities noted. Tympanic membranes are normal and external auditory canals are clear. Oropharynx with no redness, swelling, or masses, exudates, or evidence of obstruction, uvula midline. Mucous membranes moist. Neck: Trachea midline, no thyromegaly or masses palpated, and no cervical lymphadenopathy. Supple, full range of motion without nuchal rigidity, or vertebral point tenderness. No Meningismus. Chest/axilla: Normal chest wall appearance and motion. Nontender with no deformity. No lesions are appreciated. Cardiovascular: Regular rate and rhythm with a normal S1 and S2. Normal PMI, no JVD. No pulse deficits. Respiratory: Lungs have equal breath sounds bilaterally, clear to auscultation. No rales, rhonchi or wheezes noted. No increased work of breathing, no retractions or nasal flaring. Back: No spinal tenderness. No costovertebral tenderness. Full range of motion. Skin: Warm, dry with normal turgor. Normal color with no rashes, no lesions, and no evidence of cellulitis. Neuro: Awake and alert, GCS 15, oriented to person, place, time, and situation. Cranial nerves II-XII grossly intact. Motor strength 5/5 in all extremities. Sensory grossly intact. Cerebellar exam normal. Normal gait. 17:34 Musculoskeletal/extremity: Extremities: noted in the right hip: pain, ROM: no acute changes, intact in all extremities, Circulation is intact in all extremities. Sensation intact. Vital Signs: 12:00 BP 123 / 81; Pulse 62; Resp 16; Temp 98.4; Pulse Ox 99% ; Weight 74.84 kg; Height 5 ft. me1 4 in. ; Pain 7/10; 12:00 Body Mass Index 28.32 (74.84 kg, 162.56 cm) me1 12:00 Pain Scale: Adult me1 MDM: 11:25 Medical Screening Exam initiated dr5 17:34 Differential diagnosis: hip fracture, bursitis, arthritis, strain. Data reviewed: vital dr5 signs, nurses notes. I considered the following discharge prescriptions or medication management in the emergency department Medications were administered in the Emergency Department. See MAR. Care significantly affected by the following chronic conditions: Anxiety depression GERD hypertension hypothyroidism. Care significantly affected by the following Social Determinants of Health: Poor access to healthcare and/or lack of insurance, Poor access to transportation, Problems related to employment. Counseling: I had a detailed discussion with the patient and/or guardian regarding the historical points, exam findings, and any diagnostic results supporting the discharge/admit diagnosis, the presence of at least one elevated blood pressure reading (>120/80) during this emergency department visit, the need for outpatient follow up, for definitive care, a family practitioner, to return to the emergency department if symptoms worsen or persist or if there are any questions or concerns that arise at home. ED course: Will give steroid injection in ER. Will give patient Medrol Dosepak to help with inflammation. Recommended patient follow-up primary care doctor this week for further management. All questions answered. Patient is agreeable plan. Strict ER precautions given.. Administered Medications: 15:30 Drug: HYDROcodone-acetaminophen PO 5 mg-325 mg 2 tabs PO once Route: PO; hb 15:36 Follow up: Response: Medication administered at discharge. hb 15:30 Drug: Dexamethasone IM 10 mg IM once Route: IM; Site: right deltoid; hb 15:36 Follow up: Response: Medication administered at discharge. hb Disposition Summary: 03/04/25 15:22 Discharge Ordered Notes: Location: Home dr5 Condition: Stable dr5 Diagnosis - Pain in right hip dr5 Followup: dr5 - With: Emergency Department - When: As needed - Reason: Worsening of condition Followup: dr5 - With: Private Physician - When: 1 - 2 days - Reason: Recheck today's complaints, Continuance of care, Re-evaluation by your physician Discharge Instructions: - Discharge Summary Sheet dr5 - Arthritis dr5 - Musculoskeletal Pain dr5 Forms: - Medication Reconciliation Form dr5 - Antibiotic Education dr5 - Patient Portal Instructions dr5 - Leadership Thank You Letter dr5 Prescriptions: - Tramadol 50 mg Oral Tablet - take 1 tablet ORAL route every 8 hours as needed; 12 tablet; Refills: 0, dr5 Product Selection Permitted - Medrol (Shaun) 4 mg Oral Tablets, Dose Pack - take 1 tablet ORAL route as directed - follow package instructions; 1 packet; dr5 Refills: 0, Product Selection Permitted Addendum: 03/05/2025 19:23 Co-signature as Attending Physician, Ludwin Royal MD I agree with the assessment and c pittman plan of care. Signatures: Ludwin Royal MD MD cha Baxter, Heather, RN RN Lora Riddle RN RN me1 Mike Marlow, FOOD WRITER-C FOOD WRITER-Cdr5 Corrections: (The following items were deleted from the chart) 03/04 12:04 12:03 PMHx: chronic back pain; me1 me1
--- NOTE | 2025-03-04 15:22 | ER ---
Nurse's Notes [facility] Name: Lizbet Carney Age: 59 yrs Sex: Female : 1965 Arrival Date: 03/04/2025 Time: 11:12 Bed 9 Private MD: Diagnosis: Pain in right hip Presentation: 03/04 12:00 Chief complaint: Patient states: she was seen here last night for chronic right hip me1 pain that is worse at this time. Was given a hydrocodone while here that was effective but only prescribed a muscle relaxer for home and it is not effective. Pain at this time is 7/10. Patient moved to the area 3 days ago and has not set up a pcp yet. Coronavirus screen: Vaccine status: Patient reports being unvaccinated. Ebola Screen: No symptoms or risks identified at this time. Initial Sepsis Screen: Does the patient meet any 2 criteria? No. Patient's initial sepsis screen is negative. Does the patient have a suspected source of infection? No. Patient's initial sepsis screen is negative. Risk Assessment: Do you want to hurt yourself or someone else? Patient reports no desire to harm self or others. Onset of symptoms is unknown. 12:00 Method Of Arrival: Wheelchair me1 12:00 Acuity: NAFISA 4 me1 Historical: - Allergies: 12:03 No Known Allergies; me1 - PMHx: 12:03 Anxiety; Depression; GERD; Hypertension; Hypothyroidism; me1 - PSHx: 12:04 bilateral heels; decompression of vertebrae; Left hip replacement; partial me1 thyroidectomy; R hip replacement; - Immunization history:: Adult Immunizations up to date. - Infectious Disease History:: Denies. - Social history:: Smoking status: Patient/guardian denies using tobacco, but has a distant history of tobacco abuse. Screenin:00 [facility] ED Fall Risk Assessment (Adult) History of falling in the last 3 months, hb including since admission No falls in past 3 months (0 pts) Confusion or Disorientation No (0 pts) Intoxicated or Sedated No (0 pts) Impaired Gait No (0 pts) Mobility Assist Device Used No (0 pt) Altered Elimination No (0 pt) Score/Fall Risk Level 0 - 2 = Low Risk Oriented to surroundings, Maintained a safe environment, Educated pt \T\ family on fall prevention, incl call for assistance when getting out of bed. Abuse screen: Denies threats or abuse. Denies injuries from another. Nutritional screening: No deficits noted. Tuberculosis screening: No symptoms or risk factors identified. Assessment: 15:00 General: Appears in no apparent distress. uncomfortable, Behavior is calm, cooperative. hb Neuro: GCS 15. Musculoskeletal: Reports right hip pain. Vital Signs: 12:00 BP 123 / 81; Pulse 62; Resp 16; Temp 98.4; Pulse Ox 99% ; Weight 74.84 kg; Height 5 ft. me1 4 in. ; Pain 710; 12:00 Body Mass Index 28.32 (74.84 kg, 162.56 cm) me1 12:00 Pain Scale: Adult me1 ED Course: 11:17 Patient arrived in ED. cj3 11:23 Mike Marlow FNP-C [facility]. dr5 11:23 Ludwin Royal MD is Attending Physician. dr5 12:03 Triage completed. me1 12:04 Arm band placed on Patient placed in waiting room. me1 15:35 Briseyda Gray, RN is Primary Nurse. hb 15:36 No provider procedures requiring assistance completed. Patient did not have IV access hb during this emergency room visit. Administered Medications: 15:30 Drug: HYDROcodone-acetaminophen PO 5 mg-325 mg 2 tabs PO once Route: PO; hb 15:36 Follow up: Response: Medication administered at discharge. hb 15:30 Drug: Dexamethasone IM 10 mg IM once Route: IM; Site: right deltoid; hb 15:36 Follow up: Response: Medication administered at discharge. hb Outcome: 15:22 Discharge ordered by . dr5 15:35 Discharged to home assisted to POV via wheelchair with Briseyda CURTIS hb 15:35 Condition: stable 15:35 Discharge instructions given to patient, Instructed on discharge instructions, follow up and referral plans. medication usage, Demonstrated understanding of instructions, follow-up care, medications, Prescriptions given X 2, 15:36 Patient left the ED. hb Signatures: Briseyda Gray RN RN Lora Riddle RN RN me1 Mike Marlow FNP-C PROBATION AND PATROL AGENT-Cdr5 Lizette Holden cj3 Corrections: (The following items were deleted from the chart) 12:04 12:03 PMHx: chronic back pain; me1 me1
[2025-03-04 15:41] VITALS: BP 123/81; TEMP 98.4; O2SAT 99
== END 2025-03-04 15:36 | disposition home or self-care (01) ==
LOC: ER 11:12
DX: M25.551 Pain in right hip (principal); Z96.643 Presence of artificial hip joint, bilateral
CPT/HCPCS: 96372; 99284; J1100

== ENCOUNTER 2025-06-01 21:34 | Emergency (ER) | payer MEDICARE ==
[2025-06-01] MEDS ORDERED: KETOROLAC 30 MG/ML INJ ONE (22:11)
[2025-06-01] MEDS ORDERED: GABAPENTIN 300 MG CAP ONE (22:11)
[2025-06-01] MEDS ORDERED: HYDROCODONE/APAP 7.5/325 MG TAB ONE (22:12)
--- NOTE | 2025-06-01 22:34 | RAD REPORT ---
Extremity Venous Uni Ltd CLINICAL INDICATION: Female, 60 years old.PAIN RIGHT TECHNIQUE: Complete duplex sonography of the lower extremity veins was performed of the affected limb . The examination included compression for vein patency, color Doppler imaging and flow augmentation in response to distal compression of the distal external iliac, common femoral, femoral, popliteal, peroneal, tibial and great saphenous veins. [id number]. COMPARISON: 09/26/2022 FINDINGS: Duplex sonography imaging demonstrates all deep veins examined to be fully compressible with spontane ous, phasic and augmented flow in the affected limb. IMPRESSION: No evidence of deep venous thrombosis in the right lower extremity.
--- NOTE | 2025-06-01 22:40 | RAD REPORT ---
EXAM: Lower Extremity Artery Uni Ltd HISTORY: PAIN RIGHT COMPARISON: None TECHNIQUE: Multiplanar grayscale and color Doppler images were obtained and a right lower extremity a rterial ultrasound. Spectral analysis of the Doppler waveforms were performed. 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
--- NOTE | 2025-06-01 22:42 | RAD REPORT ---
EXAMINATION: Pelvis CLINICAL INDICATION: Female, 60 years old. PAIN COMPARISON: No prior exam. FINDINGS: No acute fracture. Bilateral hip arthroplasties. No malalignment/dislocation. IMPRESSION: No acute osseous abnormality. Intact bilateral hip arthroplasties.
--- NOTE | 2025-06-01 22:43 | RAD REPORT ---
EXAMINATION: Femur Right VIEWS: Four views CLINICAL INDICATION: Female, 60 years old. PAIN RIGHT COMPARISON: 09/26/2020 IMPRESSION: Intact right total hip arthroplasty. Lateral fixation plate with cerclage wires is intact. No acute fracture identified.
--- NOTE | 2025-06-01 23:25 | ER ---
Nurse's Notes [facility] Name: Lizbet Carney Age: 60 yrs Sex: Female : 1965 Arrival Date: 06/01/2025 Time: 21:34 Bed 16 Private MD: Diagnosis: Pain in right leg Presentation: 06/01 21:49 Chief complaint: Patient states: R leg pain. Coronavirus screen: Client denies travel kd4 out of the [place] in the last 14 days. Ebola Screen: No symptoms or risks identified at this time. Initial Sepsis Screen: Does the patient meet any 2 criteria? No. Patient's initial sepsis screen is negative. Does the patient have a suspected source of infection? No. Patient's initial sepsis screen is negative. Risk Assessment: Do you want to hurt yourself or someone else? Patient reports no desire to harm self or others. Onset of symptoms. 21:49 Method Of Arrival: EMS kd4 21:49 Acuity: NAFISA 5 kd4 Triage Assessment: 21:51 General: Appears in no apparent distress. Behavior is calm, cooperative. Pain: kd4 Complains of pain in r leg. Neuro: No deficits noted. Respiratory: No deficits noted. Historical: - PMHx: 21:51 Anxiety; Depression; Hypertension; GERD; Hypothyroidism; kd4 - PSHx: 21:51 bilateral heels; decompression of vertebrae; partial thyroidectomy; Left hip kd4 replacement; R hip replacement; - Immunization history:: Adult Immunizations unknown. - Infectious Disease History:: Denies. - Social history:: Patient/guardian denies using alcohol, street drugs, IV drugs, tobacco products, Smoking status: Patient denies any tobacco usage or history of. Screenin:53 Abuse screen: Denies threats or abuse. Nutritional screening: No deficits noted. kd4 Tuberculosis screening: No symptoms or risk factors identified. 23:41 [facility] ED Fall Risk Assessment (Adult) History of falling in the last 3 months, kd4 including since admission No falls in past 3 months (0 pts) Confusion or Disorientation No (0 pts) Intoxicated or Sedated No (0 pts) Impaired Gait Yes (1 pt) Mobility Assist Device Used No (0 pt) Altered Elimination No (0 pt) Score/Fall Risk Level 0 - 2 = Low Risk. Assessment: 21:53 General: Appears in no apparent distress. Behavior is calm, cooperative. Neuro: No kd4 deficits noted. Respiratory: No deficits noted. Vital Signs: 21:49 BP 119 / 67; Pulse 61; Resp 18; Temp 98.2(O); Pulse Ox 97% on R/A; Weight 81.65 kg; kd4 Height 5 ft. 4 in. ; Pain 8/10; 23:41 BP 153 / 96; Pulse 62; Resp 18; Temp 98(O); Pulse Ox 97% on R/A; Pain 10/10; kd4 21:49 Body Mass Index 30.90 (81.65 kg, 162.56 cm) kd4 21:49 Pain Scale: Adult kd4 23:41 Pain Scale: Adult kd4 [place] Coma Score: 21:53 Eye Response: spontaneous(4). Motor Response: obeys commands(6). Verbal Response: kd4 oriented(5). Total: 15. ED Course: 21:36 Patient arrived in ED. jj6 21:39 Ludwin Calvert PA-C is PHCP. cp 21:39 Ludwin Royal MD is Attending Physician. cp 21:49 Izzy Mullen, EVER is Primary Nurse. kd4 21:51 Triage completed. kd4 21:53 Patient has correct armband on for positive identification. Bed in low position. Call kd4 light in reach. Side rails up X2. Pulse ox on. NIBP on. 22:29 US Extremity Venous Unilateral Ltd In Process Unspecified. EDMS 22:29 Lower Extremity Artery Uni Ltd US In Process Unspecified. EDMS 22:35 XRAY Femur RIGHT In Process Unspecified. EDMS 22:35 XRAY Pelvis In Process Unspecified. EDMS 23:41 Provided Education on: D/c instruction and follow up. kd4 23:41 No provider procedures requiring assistance completed. Patient did not have IV access kd4 during this emergency room visit. 23:46 Patient d/c. kd4 Administered Medications: 22:17 Drug: Neurontin PO 300 mg PO once Route: PO; kd4 23:39 Follow up: Response: No adverse reaction kd4 22:17 Drug: Hydrocodone-Acetaminophen PO (7.5 mg-325 mg) 1 tabs PO once; RASS on ADMIN: kd4 Combtv4, Very Agttd3, Agttd2, Rstlss1, AlertClm0, Drwsy-1, Lt Sdtn-2, Mod Sdtn-3, Dp Sdtn-4, UnArsble-5 Route: PO; 23:39 Follow up: Response: No adverse reaction kd4 22:17 Drug: Ketorolac IM 15 mg IM once Route: IM; Site: left deltoid; kd4 23:40 Follow up: Response: No adverse reaction kd4 Medication: 21:53 VIS not applicable for this client. kd4 Outcome: 23:24 Discharge ordered by . sivakumar 23:41 Condition: stable kd4 23:41 Discharge instructions given to patient, Instructed on follow up and referral plans. Demonstrated understanding of Prescriptions given X Patient refused to take prescription and states she has it at home, also refused d/c paper after instruction. MUKUL Calvert provide f/u instruction 23:46 Discharged to home ambulatory, kd4 23:46 Patient left the ED. kd4 Signatures: Dispatcher [employer] EDMS Ludwin Calvert PA-C PA-C cp Jeffries, Jennifer jj6 Izzy Mullen RN RN kd4
--- NOTE | 2025-06-01 23:25 | EDPHYS ---
Physician Documentation [facility] Name: Lizbet Carney Age: 60 yrs Sex: Female : 1965 Arrival Date: 06/01/2025 Time: 21:34 Bed 16 Private MD: BARRETT Physician Ludwin Royal HPI: 06/01 22:00 This 60 yrs old Female presents to ER via EMS with complaints of Leg Pain. cp 22:00 The patient presents with pain. The complaints affect the right upper leg. Context: the cp patient can fully bear weight, history of bilateral hip replacement surgery. Onset: The symptoms/episode began/occurred gradually, and became worse today. Associated signs and symptoms: The patient has no apparent associated signs or symptoms. Patient denies injury, denies recent fall. Patient does admit to running out of prescribed pain medication yesterday. Historical: - PMHx: 21:51 Anxiety; Depression; Hypertension; GERD; Hypothyroidism; kd4 - PSHx: 21:51 bilateral heels; decompression of vertebrae; partial thyroidectomy; Left hip kd4 replacement; R hip replacement; - Immunization history:: Adult Immunizations unknown. - Infectious Disease History:: Denies. - Social history:: Patient/guardian denies using alcohol, street drugs, IV drugs, tobacco products, Smoking status: Patient denies any tobacco usage or history of. ROS: 22:05 MS/extremity: Positive for pain, of the right upper leg, Negative for injury or acute cp deformity, decreased range of motion, 22:05 Eyes: Negative for injury, pain, redness, and discharge, cp 22:05 Constitutional: Negative for body aches, chills, fever, 22:05 Cardiovascular: Negative for chest pain, 22:05 Respiratory: Negative for cough, shortness of breath, wheezing, 22:05 Abdomen/GI: Negative for abdominal pain, vomiting, diarrhea, constipation, 22:05 Back: Negative for pain at rest, pain with movement, 22:05 Neuro: Negative for altered mental status, dizziness, headache, weakness, 22:05 All other systems are negative, Exam: 22:10 Head/Face: Normocephalic, atraumatic. cp 22:10 Constitutional: The patient appears in no acute distress, alert, awake, non-diaphoretic, non-toxic, well developed, well nourished, no signs discomfort 22:10 ENT: External ear(s): are unremarkable, Nose: is normal, Mouth: Lips: moist, Oral mucosa: moist, Posterior pharynx: Airway: no evidence of obstruction, patent, 22:10 Neck: ROM/movement: is normal, is supple, without pain, no range of motions limitations, 22:10 Chest/axilla: Inspection: normal, 22:10 Cardiovascular: Rate: normal, 22:10 Respiratory: the patient does not display signs of respiratory distress, Respirations: normal, no use of accessory muscles, no retractions, labored breathing, is not present, Breath sounds: are clear throughout, no decreased breath sounds, 22:10 Abdomen/GI: Inspection: abdomen appears normal, Palpation: abdomen is soft and non-tender, in all quadrants, 22:10 Back: pain, is absent, ROM is normal, 22:10 Musculoskeletal/extremity: Extremities: noted in the right upper leg: pain, There is no evidence of swelling, tenderness, injury, skin warm and dry and intact with no erythema, Vital Signs: 21:49 BP 119 / 67; Pulse 61; Resp 18; Temp 98.2(O); Pulse Ox 97% on R/A; Weight 81.65 kg; kd4 Height 5 ft. 4 in. ; Pain 8/10; 23:41 BP 153 / 96; Pulse 62; Resp 18; Temp 98(O); Pulse Ox 97% on R/A; Pain 10/10; kd4 21:49 Body Mass Index 30.90 (81.65 kg, 162.56 cm) kd4 21:49 Pain Scale: Adult kd4 23:41 Pain Scale: Adult kd4 [place] Coma Score: 21:53 Eye Response: spontaneous(4). Motor Response: obeys commands(6). Verbal Response: kd4 oriented(5). Total: 15. MDM: 21:39 Medical Screening Exam initiated cp 23:33 Data reviewed: vital signs, nurses notes, radiologic studies, plain films, ultrasound, cp and as a result, I will discharge patient. 23:33 Differential diagnosis: chronic pain, drug seeking behavior, prosthetic fracture, dvt, cp cellulitis. I considered the following discharge prescriptions or medication management in the emergency department Medications were administered in the Emergency Department. See MAR. Counseling: I had a detailed discussion with the patient and/or guardian regarding the historical points, exam findings, and any diagnostic results supporting the discharge/admit diagnosis, radiology results, the need for outpatient follow up, for definitive care, a mural painter, to return to the emergency department if symptoms worsen or persist or if there are any questions or concerns that arise at home. Special discussion: I discussed with the patient their frequent requests for pain medications. Instructions have been given, that in the best interests of the patient, further pain Rx's must come from the patient's PCP or a mural painter. ED course: review of records show patient was prescribed oxycodone in past for pain and needs to f/u with pain management. 06/01 21:58 Order name: XRAY Femur RIGHT cp 06/01 21:58 Order name: XRAY Pelvis cp 06/01 21:58 Order name: US Extremity Venous Unilateral Ltd cp 06/01 21:58 Order name: Lower Extremity Artery Uni Ltd US cp Administered Medications: 22:17 Drug: Neurontin PO 300 mg PO once Route: PO; kd4 23:39 Follow up: Response: No adverse reaction kd4 22:17 Drug: Hydrocodone-Acetaminophen PO (7.5 mg-325 mg) 1 tabs PO once; RASS on ADMIN: kd4 Combtv4, Very Agttd3, Agttd2, Rstlss1, AlertClm0, Drwsy-1, Lt Sdtn-2, Mod Sdtn-3, Dp Sdtn-4, UnArsble-5 Route: PO; 23:39 Follow up: Response: No adverse reaction kd4 22:17 Drug: Ketorolac IM 15 mg IM once Route: IM; Site: left deltoid; kd4 23:40 Follow up: Response: No adverse reaction kd4 Disposition Summary: 06/01/25 23:24 Discharge Ordered Notes: Location: Home cp Problem: chronic cp Symptoms: have improved cp Condition: Stable cp Diagnosis - Pain in right leg cp Followup: cp - With: Private Physician - When: 2 - 3 days - Reason: Recheck today's complaints Discharge Instructions: - Discharge Summary Sheet cp - Chronic Pain, Adult cp - Musculoskeletal Pain cp Forms: - Medication Reconciliation Form cp - Antibiotic Education cp - Prescription Opioid Use cp - Patient Portal Instructions cp - Leadership Thank You Letter cp Prescriptions: - Neurontin 300 mg Oral Capsule - take 1 capsule ORAL route every 8 hours; 30 capsule; Refills: 0, Product cp Selection Permitted Signatures: Dispatcher [employer] EDMS Ludwin Calvert PA-C PA-C cp Dahissa, Karim RN RN kd4 Corrections: (The following items were deleted from the chart) 21:59 21:59 Femur Right+RAD.RAD.BRZ ordered. EDMS EDMS 21:59 21:59 Pelvis+RAD.RAD.BRZ ordered. EDMS EDMS 21:59 21:59 Extremity Venous Uni Ltd+US.RAD.BRZ ordered. EDMS EDMS 21:59 21:59 Lower Extremity Artery Uni Ltd+US.RAD.BRZ ordered. EDMS EDMS
[2025-06-02 00:42] VITALS: O2SAT 97
[2025-06-02 00:44] VITALS: BP 153/96; TEMP 98
== END 2025-06-01 23:46 | disposition home or self-care (01) ==
LOC: ER 21:34
DX: M79.604 Pain in right leg (principal)
CPT/HCPCS: 72170; 93926; 93971; 96372; 99284